=== PATIENT | male | born 1950 | race Caucasian/White ===

== ENCOUNTER 2018-07-24 10:02 | Inpatient (IN) | payer OTHER ==
[2018-07-24] MEDS ORDERED: ALBUTEROL 2.5 MG/3 ML NEB SOL ONE (11:02)
[2018-07-24] MEDS ORDERED: IPRATROPIUM BROM 0.5MG/2.5ML ONE (11:02)
[2018-07-24 11:09] LABS: Absolute Monocytes 0.6 K/uL (0.1-1.3); Absolute Neutrophil 7.1 K/uL (1.8-8.0); Basophils % 0.9 % (0-1.3); Eosinophils % 0.6 % (0-4.4); Hematocrit 54.3 % (39.6-49.0); Lymphocytes % 11.2 % (15.3-44.8); MPV 9.7 fL (7.6-11.3); Monocytes % 7.2 % (3.3-12.3); RBC Red Blood Cell Count 6.07 M/uL (4.33-5.43)
--- NOTE | 2018-07-24 11:18 | RAD REPORT ---
EXAM DESCRIPTION: US - Extrem Venous W Compress Cameron - 07/24/2018 11:12 am CLINICAL HISTORY: SWELLING Bilateral leg edema and swelling. COMPARISON: No comparisons TECHNIQUE: Real-time sonographic interrogation of the left and right lower extremity deep venous sys tems was performed. FINDINGS: Normal compressibility, flow augmentation, phasic flow and spontaneous flow is identified in both the left and right lower extremity deep venous systems. IMPRESSION: No sonographic evidence of left or right lower extremity deep venous thrombosis.
[2018-07-24 11:20] LABS: Protime INR 1.05
[2018-07-24 11:38] LABS: Albumin 2.9 g/dL (3.4-5.0); Bilirubin Direct 0.3 mg/dL (0-0.2); Bilirubin Total 0.7 mg/dL (0.2-1.0); Protein, Total 6.8 g/dL (6.4-8.2); Troponin (Emerg Dept Use Only) 0.06 ng/mL (0.0-0.045)
--- NOTE | 2018-07-24 11:51 | RAD REPORT ---
EXAM DESCRIPTION: RAD - Chest Single View - 07/24/2018 11:45 am CLINICAL HISTORY: DYSPNEA Chest pain. COMPARISON: CHEST SINGLE VIEW dated 05/20/2012 FINDINGS: Portable technique limits examination quality. Mild interstitial pulmonary edema is present. Bilateral pleural effusions are present, larger on the right. The heart is mildly enlarged in size. No displaced fractures. IMPRESSION: Mild CHF versus volume overload pattern.
[2018-07-24] MEDS ORDERED: FUROSEMIDE 40 MG/4 ML VIAL ONE (12:00)
--- NOTE | 2018-07-24 12:12 | EDPHYS ---
Physician Documentation [facility] Name: Gabo Chow Sr Age: 67 yrs Sex: Male : 1950 Arrival Date: 07/24/2018 Time: 10:06 Bed 5 Private MD: None, None ED Physician Luisa Gold HPI: 07/24 12:39 This 67 yrs old Male presents to ER via Ambulatory with complaints of Leg kb Swelling, Breathing Difficulty. 12:39 The patient has shortness of breath at rest, and the patient has a history of COPD, kb CHF. Onset: The symptoms/episode began/occurred 3 week(s) ago. Duration: The symptoms are continuous. The patient's shortness of breath is aggravated by exertion, light activity, singing, is alleviated by nothing. Associated signs and symptoms: Pertinent positives: non-productive cough, Pertinent negatives: chest pain, productive cough, diaphoresis, dizziness, fever, hemoptysis, loss of consciousness, nausea, numbness in extremities, visual changes, vomiting. Severity of symptoms: At their worst the symptoms were moderate in the emergency department the symptoms are unchanged. The patient has experienced similar episodes in the past, a few times. The patient has not recently seen a physician. Historical: - Allergies: 10:13 No Known Allergies; sv - PMHx: 10:13 CHF; Hypertension; sv - PSHx: 10:13 cardiac stent; sv - Immunization history:: Adult Immunizations unknown. - Social history:: Smoking status: Patient uses tobacco products, smokes one pack cigarettes per day. - Ebola Screening: : Patient denies exposure to infectious person Patient denies travel to an Ebola-affected area in the 21 days before illness onset. ROS: 12:37 Constitutional: Negative for fever, chills, and weight loss, ENT: Negative for injury, kb pain, and discharge, Neck: Negative for injury, pain, and swelling, Abdomen/GI: Negative for abdominal pain, nausea, vomiting, diarrhea, and constipation, Back: Negative for injury and pain, : Negative for injury, bleeding, discharge, and swelling, MS/Extremity: Negative for injury and deformity, Skin: Negative for injury, rash, and discoloration, Neuro: Negative for headache, weakness, numbness, tingling, and seizure. 12:37 Cardiovascular: Positive for edema, Negative for chest pain, orthopnea, palpitations, paroxysmal nocturnal dyspnea. 12:37 Respiratory: Positive for cough, with no reported sputum, dyspnea on exertion, shortness of breath, wheezing, Negative for hemoptysis, orthopnea, pleurisy. Exam: 12:38 Constitutional: This is a well developed, well nourished patient who is awake, alert, kb and in no acute distress. Head/Face: Normocephalic, atraumatic. ENT: Nares patent. No nasal discharge, no septal abnormalities noted. Tympanic membranes are normal and external auditory canals are clear. Oropharynx with no redness, swelling, or masses, exudates, or evidence of obstruction, uvula midline. Mucous membranes moist. Neck: Trachea midline, no thyromegaly or masses palpated, and no cervical lymphadenopathy. Supple, full range of motion without nuchal rigidity, or vertebral point tenderness. No Meningismus. Chest/axilla: Normal chest wall appearance and motion. Nontender with no deformity. No lesions are appreciated. Cardiovascular: Regular rate and rhythm with a normal S1 and S2. No gallops, murmurs, or rubs. Normal PMI, no JVD. No pulse deficits. Abdomen/GI: Soft, non-tender, with normal bowel sounds. No distension or tympany. No guarding or rebound. No evidence of tenderness throughout. Back: No spinal tenderness. No costovertebral tenderness. Full range of motion. Skin: Warm, dry with normal turgor. Normal color with no rashes, no lesions, and no evidence of cellulitis. MS/ Extremity: Pulses equal, no cyanosis. Neurovascular intact. Full, normal range of motion. Neuro: Awake and alert, GCS 15, oriented to person, place, time, and situation. Cranial nerves II-XII grossly intact. Motor strength 5/5 in all extremities. Sensory grossly intact. Cerebellar exam normal. Normal gait. 12:38 Cardiovascular: Edema: 3+ edema to level of left ankle, left foot, right ankle and right foot. 12:38 Respiratory: mild respiratory distress is noted, Respirations: labored breathing, Breath sounds: decreased breath sounds, that are mild, are located in both bases, wheezing: expiratory that is moderate, is heard diffusely. Vital Signs: 10:13 BP 164 / 88; Pulse 87; Resp 22; Temp 98.8; Pulse Ox 95% ; Weight 95.25 kg; Height 6 ft. sv 0 in. (182.88 cm); 13:13 BP 148 / 69; Pulse 89; Resp 22; Pulse Ox 95% on R/A; Pain 0/10; ss 10:13 Body Mass Index 28.48 (95.25 kg, 182.88 cm) sv MDM: 10:19 Patient medically screened. kb 12:09 Data reviewed: vital signs, nurses notes. Data interpreted: Pulse oximetry: on room air kb is 95 %. Interpretation: acceptable. 12:09 Counseling: I had a detailed discussion with the patient and/or guardian regarding: the kb historical points, exam findings, and any diagnostic results supporting the discharge/admit diagnosis, lab results, radiology results, the need for further work-up and treatment in the hospital. Physician consultation: Yousuf Ware MD was contacted at 12:09, regarding admission, to the telemetry unit. patient's condition, and will see patient in ED, shortly. 07/24 10:29 Order name: Basic Metabolic Panel; Complete Time: 11:43 kb 07/24 10:29 Order name: CBC with Diff; Complete Time: 11:24 kb 07/24 10:29 Order name: LFT's; Complete Time: 11:43 kb 07/24 10:29 Order name: Magnesium; Complete Time: 11:43 kb 07/24 10:29 Order name: NT PRO-BNP; Complete Time: 11:43 kb 07/24 10:29 Order name: PT-INR; Complete Time: 11:26 kb 07/24 10:29 Order name: Troponin (emerg Dept Use Only); Complete Time: 11:43 kb 07/24 10:29 Order name: XRAY Chest (1 view); Complete Time: 11:53 kb 07/24 10:29 Order name: EKG; Complete Time: 10:30 kb 07/24 10:29 Order name: Cardiac monitoring; Complete Time: 10:49 kb 07/24 10:29 Order name: EKG - Nurse/Tech; Complete Time: 10:49 kb 07/24 10:29 Order name: US Extremity Venous W Compression Cameron; Complete Time: 11:24 kb 07/24 10:29 Order name: IV Saline Lock; Complete Time: 10:49 kb 07/24 10:29 Order name: Labs collected and sent; Complete Time: 10:49 kb 07/24 10:29 Order name: O2 Per Protocol; Complete Time: 10:49 kb 07/24 10:29 Order name: O2 Sat Monitoring; Complete Time: 10:49 kb Administered Medications: 11:13 Drug: DuoNeb (3:1) (2.5 mg - 0.5 mg) 3 ml Route: Nebulizer; ss 13:15 Follow up: Response: No adverse reaction; Wheezing diminished ss 11:56 Drug: Lasix 40 mg Route: IVP; Site: right forearm; ss 13:16 Follow up: Response: No adverse reaction; No adverse reaction output increased ss Disposition: 17:40 Co-signature as Attending Physician, Luisa Gold MD. ma2 Disposition: 07/24/18 12:11 Hospitalization ordered by Yousuf Ware for Inpatient Admission. Preliminary diagnosis are Dyspnea, unspecified, Unspecified combined systolic (congestive) and diastolic (congestive) heart failure, Chronic obstructive pulmonary disease with (acute) exacerbation, Volume overload. - Bed requested for Telemetry/MedSurg (Inpatient). - Status is Inpatient Admission. ss - Condition is Stable. - Problem is new. - Symptoms are unchanged. UTI on Admission? No Signatures: Dispatcher [employer] EDMS Shona Mcdowell, SOWMYA-C HEALTH DIRECTOR-Dedra Blackwell Stephanie, RN RN sv Smirch, Shelby, RN RN ss Alzahri, Mohammad, MD MD ma2 Corrections: (The following items were deleted from the chart) 13:01 12:11 Hospitalization Ordered by Yousuf Ware MD for Inpatient Admission. Preliminary bd diagnosis is Dyspnea, unspecified; Unspecified combined systolic (congestive) and diastolic (congestive) heart failure; Chronic obstructive pulmonary disease with (acute) exacerbation; Volume overload. Bed requested for Telemetry/MedSurg (Inpatient). Status is Inpatient Admission. Condition is Stable. Problem is new. Symptoms are unchanged. UTI on Admission? No. kb 14:09 13:01 07/24/2018 12:11 Hospitalization Ordered by Yousuf Ware MD for Inpatient ss Admission. Preliminary diagnosis is Dyspnea, unspecified; Unspecified combined systolic (congestive) and diastolic (congestive) heart failure; Chronic obstructive pulmonary disease with (acute) exacerbation; Volume overload. Bed requested for Telemetry/MedSurg (Inpatient). Status is Inpatient Admission. Condition is Stable. Problem is new. Symptoms are unchanged. UTI on Admission? No. bd
--- NOTE | 2018-07-24 12:12 | ER ---
Nurse's Notes [facility] Name: Gabo Chow Sr Age: 67 yrs Sex: Male : 1950 Arrival Date: 07/24/2018 Time: 10:06 Bed 5 Private MD: None, None Diagnosis: Dyspnea, unspecified;Unspecified combined systolic (congestive) and diastolic (congestive) heart failure;Chronic obstructive pulmonary disease with (acute) exacerbation;Volume overload Presentation: 07/24 10:11 Presenting complaint: Patient states: SOB x 3 weeks and has increased. Pt has not been sv taking his meds d/t financial reasons. Transition of care: patient was not received from another setting of care. Onset of symptoms is unknown. Care prior to arrival: None. 10:11 Method Of Arrival: Ambulatory sv 10:11 Acuity: ALLI 3 sv 10:30 Risk Assessment: Do you want to hurt yourself or someone else? Patient reports no ss desire to harm self or others. Initial Sepsis Screen: Does the patient meet any 2 criteria? RR > 20 per min. HR > 90 bpm. Does the patient have a suspected source of infection? No. Patient's initial sepsis screen is negative. Historical: - Allergies: 10:13 No Known Allergies; sv - PMHx: 10:13 CHF; Hypertension; sv - PSHx: 10:13 cardiac stent; sv - Immunization history:: Adult Immunizations unknown. - Social history:: Smoking status: Patient uses tobacco products, smokes one pack cigarettes per day. - Ebola Screening: : Patient denies exposure to infectious person Patient denies travel to an Ebola-affected area in the 21 days before illness onset. Screenin:32 Abuse screen: Denies threats or abuse. Denies injuries from another. Nutritional ss screening: No deficits noted. Tuberculosis screening: No symptoms or risk factors identified. Never had TB. Fall Risk No fall in past 12 months (0 pts). Secondary diagnosis (15 points) shortness of breath. IV access (20 points). Ambulatory Aid- None/Bed Rest/Nurse Assist (0 pts). Gait- Normal/Bed Rest/Wheelchair (0 pts) Mental Status- Oriented to own ability (0 pts). Assessment: 10:32 Reassessment: unable to palpate pedal pulses, but was able to locale with Doppler. ss General: Appears uncomfortable, Behavior is cooperative, restless, Reports feeling ill for x 3 weeks. Pt states it has taken him this long to come to the ER because his cousin told his older brother who made him come to the ED for treatment. Pt reports that he was supposed to be taking Lasix, but has not in the past as he was unable to afford his medication. Brother states that he is willing to help the patient, but he has never asked for help. . Pain: Denies pain. Neuro: Level of Consciousness is awake, alert, obeys commands, Oriented to person, place, time, situation, Speech is normal, Facial symmetry appears normal. Cardiovascular: Heart tones S1 S2 present Capillary refill is > 3 seconds is sluggish in bilateral fingers toes Patient's skin is warm and dry. Pulses able to find pedal pulses with venous doppler Edema is 3+ to left midcalf, left ankle, left foot, right midcalf, right ankle and right foot Rhythm is regular Chest pain is denied. Respiratory: Airway is patent Trachea midline Respiratory effort is even, unlabored, Respiratory pattern is regular, symmetrical, Breath sounds are diminished in right posterior lower lobe Breath sounds with wheezes in left posterior upper lobe, right posterior upper lobe, left posterior lower lobe, right posterior middle lobe and right posterior lower lobe Denies. GI: Abdomen is round non-distended, Patient currently denies abdominal pain, diarrhea, nausea, vomiting. : No signs and/or symptoms were reported regarding the genitourinary system. EENT: Nares are clear Oral mucosa is moist. Derm: Skin temperature is warm Rash noted that is macular, red. Musculoskeletal: Circulation, motion, and sensation intact. Capillary refill < 3 seconds, is brisk, in bilateral fingers. Range of motion: intact in all extremities, Swelling absent. 10:50 Reassessment: To ultrasound VIA stetcher at this time. ss 11:10 Reassessment: Pt back form ultrasound at this time. ss 12:10 Reassessment: Patient appears in no apparent distress at this time. No changes from ss previously documented assessment. Patient and/or family updated on plan of care and expected duration. Pain level reassessed. 13:14 Reassessment: Patient appears in no apparent distress at this time. Patient and/or ss family updated on plan of care and expected duration. Pain level reassessed. Patient is alert, oriented x 3, equal unlabored respirations, skin warm/dry/pink. Patient denies pain at this time. Patient states feeling better. Patient states symptoms have improved. Vital Signs: 10:13 BP 164 / 88; Pulse 87; Resp 22; Temp 98.8; Pulse Ox 95% ; Weight 95.25 kg; Height 6 ft. sv 0 in. (182.88 cm); 13:13 BP 148 / 69; Pulse 89; Resp 22; Pulse Ox 95% on R/A; Pain 0/10; ss 10:13 Body Mass Index 28.48 (95.25 kg, 182.88 cm) sv ED Course: 10:06 Patient arrived in ED. mr 10:06 None, None is Private Physician. mr 10:12 Triage completed. sv 10:13 Arm band placed on. sv 10:19 Shona Mcdowell FNP-C is PHCP. kb 10:19 Luisa Gold MD is Attending Physician. kb 10:32 Patient has correct armband on for positive identification. Bed in low position. Call ss light in reach. 10:34 EKG done, by aircraft technician. reviewed by Shona KNIGHT. at1 10:48 Saniya Arrieta RN is Primary Nurse. ss 10:50 Initial lab(s) drawn, by wv, sent to lab. Inserted saline lock: 20 gauge in right em1 forearm, using aseptic technique. Blood collected. 11:17 US Extremity Venous W Compression Cameron In Process Unspecified. EDMS 11:43 X-ray completed. Portable x-ray completed in exam room. Patient tolerated procedure mh1 well. 11:43 XRAY Chest (1 view) In Process Unspecified. EDMS 12:09 Yousuf Ware MD is Hospitalizing Provider. kb 14:07 No provider procedures requiring assistance completed. Patient admitted, IV remains in ss place. Administered Medications: 11:13 Drug: DuoNeb (3:1) (2.5 mg - 0.5 mg) 3 ml Route: Nebulizer; ss 13:15 Follow up: Response: No adverse reaction; Wheezing diminished ss 11:56 Drug: Lasix 40 mg Route: IVP; Site: right forearm; ss 13:16 Follow up: Response: No adverse reaction; No adverse reaction output increased ss Output: 13:14 Urine: 650ml (Voided); Total: 650ml. ss Outcome: 12:11 Decision to Hospitalize by Provider. kb 14:07 Admitted to Tele accompanied by tech, via wheelchair, room 423, with chart, Report ss called to DERIC Bryan 14:07 Condition: good 14:07 Instructed on the need for admit. 14:09 Patient left the ED. ss Signatures: Dispatcher [employer] EDShona Voss, HUMAN RELATIONS TEACHER-Emilia HUMAN RELATIONS TEACHER-Windy Reaves, RN DERIC Dorothy Queen, Radha 1 Kalen, Hao 1 Saniya Arrieta RN RN ss Gonzales, Amanda, manager shell EKG Tat1
[2018-07-24] MEDS ORDERED: ALBUTEROL 2.5 MG/3 ML NEB SOL NEB SCH (14:34)
[2018-07-24] MEDS ORDERED: ONDANSETRON 4 MG/2 ML VIAL IV PRN (14:34)
[2018-07-24] MEDS ORDERED: ACETAMINOPHEN 500 MG TAB PO PRN (14:34)
[2018-07-24] MEDS: ENOXAPARIN 40 MG/0.4 ML SQ SCH (16:52)
[2018-07-24] MEDS: FUROSEMIDE 40 MG/4 ML VIAL IV SCH (16:52)
[2018-07-24] MEDS: METOPROLOL TAR 25 MG TAB PO SCH ×2 (16:52→21:00)
[2018-07-24 17:51] LABS: Urine Appearance CLEAR; Urine Bilirubin NEGATIVE (NEG); Urine Blood 1+ (NEG); Urine Color YELLOW; Urine Glucose NEGATIVE (NEG); Urine Protein 1+ (NEG); Urine Specific Gravity <=1.005 (1.005-1.030)
[2018-07-24 18:30] LABS: Urine Microscopic Reflex ORDER UMIC
[2018-07-24 19:00] LABS: Urine Bacteria <20 /HPF (NONE SEEN); Urine Culture Reflex Order NOT NEEDED
[2018-07-24] MEDS: ALBUTEROL 2.5 MG/3 ML NEB SOL NEB SCH (19:48)
[2018-07-24] MEDS: IPRATROPIUM BROM 0.5MG/2.5ML NEB SCH (19:48)
--- NOTE | 2018-07-24 20:51 | EKG ---
Test Date: 2018-07-24 Test Time: 10:28:17 Color Consultant: LEORA MEASUREMENT RESULTS: Intervals: Rate: 88 FL: 136 QRSD: 110 QT: 392 QTc: 474 [place]: P: 78 FL: 136 QRS: 28 T: 122 INTERPRETIVE STATEMENTS: Normal sinus rhythm Possible Inferior infarct, age undetermined T wave abnormality, consider lateral ischemia Abnormal ECG Compared to ECG 05/20/2012 18:22:19 T-wave abnormality now present Sinus bradycardia no longer present ST (T wave) deviation no longer present Myocardial infarct finding still present Possible ischemia still present Electronically Signed On 07-24-18 20:48:04 MUSIC EDUCATOR by Irvin Turner
--- NOTE | 2018-07-25 01:22 | HP ---
Date of Admission: 07/24/2018 Chief Complaint: Shortness of breath and lower extremity swelling. Code Status: Full. History Of Present Illness: The patient is a 67-year-old male with past medical history of heart disease, status post stent; congestive heart failure; COPD; who is noncompliant with medications; history of nicotine dependence; who comes in with lower extremity swelling, shortness of breath, and dry cough that has been ongoing for the past 3 weeks, progressively worsening. His symptoms are constant, moderate in intensity. The patient denies any chest pain, palpitations, fever, chills, nausea, or vomiting. No trauma to his legs. The patient came in to the ER for further evaluation. Upon arrival, his workup revealed elevated BNP, mild elevation in his troponin. White count was normal. His chest x-ray showed volume overload. Ultrasound of the lower extremities was negative for DVT. The patient was given some Lasix, which helped him breathe somewhat better. He was also given a breathing treatment. He was referred for admission for CHF. Past Medical History: Coronary artery disease, status post stent 4 years ago; congestive heart failure; and COPD. Past Surgical History: Cardiac stent. Allergies: NO KNOWN DRUG ALLERGIES. Medications: The patient does not take any medications at home. Social History: The patient smokes a pack and a half per day. Has been smoking for over 20 years. No alcohol use. No illicit drug use. The patient is independent in his activities of daily living. Has good social support. Does not use any assistive ambulatory devices. Family History: Positive for heart disease. Mother of complications from emphysema. Review of Systems: An 11-point system reviewed and negative except as per HPI. Physical Examination: Vital Signs: Blood pressure 164/88, pulse 87, respirations 22, temperature 98.8 , and O2 of 95% on room air. General: Awake, alert, and oriented x3. Some mild distress. Elderly male, ill -appearing. HEENT: Normocephalic, atraumatic. PERRLA. EOMI. Moist mucous membranes. Oropharynx is clear. Poor dentition. Conjunctivae are anicteric. Neck: Supple. Trachea midline. JVD is distended. CV: S1 and S2. Regular rate and rhythm. Peripheral pulses present. No murmurs. Respiratory: Diminished breath sounds. Crackles heard. No wheezing. No use of accessory muscles. Gastrointestinal: Abdomen is soft, nontender, nondistended. Positive bowel sounds. No guarding or rigidity. Extremities: No clubbing or cyanosis. The patient has 3+ edema, bilateral lower extremities, with some weeping. No calf tenderness. Neurologic: Cranial nerves 2 through 12 are intact grossly. No focal neurological deficits. Speech is normal. Strength is 5/5, bilateral upper and lower extremities, major muscle groups. Skin: The patient has some venous stasis changes of the lower extremities with some erythema and maculopapular rash on the legs. Psychiatric: Mood is okay. Affect is full. Insight and judgment are good. Laboratory Data: WBC 8.9, H and H 18 and 54.3, and platelets 235. INR 1.05. Sodium 140, potassium 4, chloride 104, CO2 of 30, BUN 20, creatinine 1.27, glucose 112, calcium 8.8, and magnesium 2. Alkaline phosphatase 122. Troponin 0.06. BNP 9414. Albumin 2.9. Venous Doppler of bilateral lower extremities is negative for DVT. Chest x-ray personally reviewed, shows mild CHF versus volume overload pattern. Assessment And Plan: A 67-year-old male with; 1. Acute congestive heart failure exacerbation, unknown ejection fraction. We will start on congestive heart failure guidelines with beta-helen, KATIANA inhibitor, and IV diuretics. We will obtain echocardiogram. Unknown ejection fraction. We will monitor I's and O's. Daily weights, sodium restricted diet, fluid restriction. 2. Coronary artery disease, rosebud artery and rosebud heart, status post stent , without angina. We will start on aspirin and monitor. 3. Venous stasis changes. White blood cell count is normal. Does have some erythema. We will continue with diuretics. Elevate lower extremities. No signs of infection at this time, but we will need to monitor closely. Doppler is negative for DVT. 4. Nicotine dependence with cigarette smoking continuous. The patient has been counseled for less than 10 minutes. 5. Elevated troponin, likely due to acute congestive heart failure exacerbation. 6. 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 7. Chronic obstructive pulmonary disease, chronic bronchitis. Continue breathing treatments and supplemental O2 as needed. 8. Gastrointestinal prophylaxis and deep venous thrombosis prophylaxis addressed. Plan is to admit the patient to Med-Surg, [facility] as observation. TAY Voice ID: [id number] [facility]
[2018-07-25] MEDS: ALBUTEROL 2.5 MG/3 ML NEB SOL NEB SCH ×4 (02:04→21:00)
[2018-07-25] MEDS: IPRATROPIUM BROM 0.5MG/2.5ML NEB SCH ×4 (02:04→21:00)
[2018-07-25 04:57] LABS: Absolute Lymphocytes (CBC) 1.5 K/uL (0.7-4.9); Absolute Monocytes 0.8 K/uL (0.1-1.3); Absolute Neutrophil 5.9 K/uL (1.8-8.0); Basophils % 0.9 % (0-1.3); Eosinophils % 1.5 % (0-4.4); Hematocrit 49.7 % (39.6-49.0); MPV 9.8 fL (7.6-11.3); Monocytes % 9.8 % (3.3-12.3); RBC Red Blood Cell Count 5.57 M/uL (4.33-5.43)
[2018-07-25 05:10] LABS: Albumin 2.6 g/dL (3.4-5.0); Bilirubin Total 0.7 mg/dL (0.2-1.0); Protein, Total 6.1 g/dL (6.4-8.2)
[2018-07-25] MEDS: LISINOPRIL 10 MG TAB PO SCH (08:35)
[2018-07-25] MEDS: METOPROLOL TAR 25 MG TAB PO SCH ×2 (08:37→21:54)
[2018-07-25] MEDS: ENOXAPARIN 40 MG/0.4 ML SQ SCH (08:37)
[2018-07-25] MEDS: FUROSEMIDE 40 MG/4 ML VIAL IV SCH ×2 (08:38→16:10)
--- NOTE | 2018-07-25 17:51 | ECHO ---
HEIGHT: 6 ft 0 in WEIGHT: 184 lb 8 oz DATE OF STUDY: 07/25/[address]: Yousuf Ware MD 2-DIMENSIONAL: YES M.MODE: YES DOPPLER: YES COLOR FLOW: YES TDS: YES PORTABLE: NO DEFINITY: NO BUBBLE STUDY: NO DIAGNOSIS: CONGESTIVE HEART FAILURE CARDIAC HISTORY: CATHERIZATION: YES SURGERY: NO PROSTHETIC VALVE: NO PACEMAKER: NO MEASUREMENTS (cm) DIASTOLIC (NORMALS) SYSTOLIC (NORMALS) IVSd 1.1 (0.6-1.2) LA Diam 3.7 (1.9-4.0) LVEF 59% LVIDd 5.1 (3.5-5.7) LVIDs 3.5 (2.0-3.5) %FS 32% LVPWd 1.2 (0.6-1.2) Ao Diam 3.3 (2.0-3.7) 2 DIMENSIONAL ASSESSMENT: RIGHT ATRIUM: NORMAL LEFT ATRIUM: NORMAL RIGHT VENTRICLE: NORMAL LEFT VENTRICLE: NORMAL TRICUSPID VALVE: NORMAL MITRAL VALVE: MITRAL ANNULAR CALCIFICATION PULMONIC VALVE: NORMAL AORTIC VALVE: SCLEROSIS PERICARDIAL EFFUSION: NONE AORTIC ROOT: NORMAL LEFT VENTRICULAR WALL MOTION: NORMAL. DOPPLER/COLOR FLOW: MILD TRICUSPID REGURGITATION. COMMENTS: NORMAL LEFT VENTRICULAR SIZE AND FUNCTION. MITRAL ANNULAR CALCIFICATION. AORTIC SCELROSIS. TECHNICALLY DIFFICULT STUDY. MILD TRICUSPID REGURGITATION. TECHNOLOGIST: ALLEGRA HEARD
--- NOTE | 2018-07-25 18:43 | P.PN ---
Subjective Date of Service: 07/25/18 Subjective: No C/O voiced, Improving Patient seen and examined at bedside. No family at bedside. Chart reviewed and case discussed with nursing staff. Reports lower extremity edema improvement Denies any chest pain. Reports improved breathing Review of Systems 10-point ROS is otherwise unremarkable Physical Examination - Vital Signs Temperature: 98.2 F Blood Pressure: 137/79 Pulse: 63 Respirations: 26 Pulse Ox (%): 97 - Physical Exam General: Alert, In no apparent distress, Oriented x3 HEENT: Atraumatic, PERRLA, EOMI Neck: Supple, JVD not distended Respiratory: Clear to auscultation bilaterally, Normal air movement Cardiovascular: Regular rate/rhythm, Normal S1 S2, Edema Gastrointestinal: Normal bowel sounds, No tenderness Musculoskeletal: No tenderness, No warmth, Swelling, Erythema Integumentary: No rashes Neurological: Normal speech, Normal tone, Normal affect Assessment And Plan - Plan A 67-year-old male with; 1. Acute congestive heart failure exacerbation, diastolic, with preserved ejection fraction. Continue congestive heart failure guidelines with beta-helen, KATIANA inhibitor, and IV diuretics. Echocardiogram with ejection fraction of 59%. Continue to monitor I's and O's. Daily weights, sodium restricted diet, fluid restriction. 2. Coronary artery disease, [place] artery and [place] heart, status post stent, without angina. We will start on aspirin and monitor. Remains stable 3. Venous stasis changes. White blood cell count is normal. Does have some erythema. We will continue with diuretics. Elevate lower extremities. No signs of infection at this time , but we will need to monitor closely. Doppler is negative for DVT. 4. Nicotine dependence with cigarette smoking continuous. Counseled for smoking cessation 5. Elevated troponin, likely due to acute congestive heart failure exacerbation. 6. 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 7. Chronic obstructive pulmonary disease, chronic bronchitis. Continue breathing treatments and supplemental O2 as needed. DVT prophylaxis: Lovenox GI prophylaxis: PPI Diet: Fluid restrictions/heart healthy Disposition: Pending symptomatic improvement. Likely discharge home in the next 24-48 hr. Patient like to establish care with Dr. Mcqueen
[2018-07-26] MEDS: ALBUTEROL 2.5 MG/3 ML NEB SOL NEB SCH ×4 (02:00→20:35)
[2018-07-26] MEDS: IPRATROPIUM BROM 0.5MG/2.5ML NEB SCH ×4 (02:00→20:35)
[2018-07-26] MEDS: METOPROLOL TAR 25 MG TAB PO SCH ×2 (08:27→22:16)
[2018-07-26] MEDS: LISINOPRIL 10 MG TAB PO SCH (08:27)
[2018-07-26] MEDS: ENOXAPARIN 40 MG/0.4 ML SQ SCH (08:28)
[2018-07-26] MEDS: FUROSEMIDE 40 MG/4 ML VIAL IV SCH ×2 (08:28→17:32)
--- NOTE | 2018-07-26 16:44 | P.PN ---
Subjective Date of Service: 07/26/18 Subjective: No C/O voiced, Improving Patient seen and examined at bedside. No family at bedside. Chart reviewed and case discussed with nursing staff. Reports lower extremity edema improvement Denies any chest pain. Reports improved breathing Review of Systems 10-point ROS is otherwise unremarkable Physical Examination - Vital Signs Temperature: 97.8 F Blood Pressure: 121/65 Pulse: 55 Respirations: 18 Pulse Ox (%): 91 - Physical Exam General: Alert, In no apparent distress, Oriented x3 HEENT: Atraumatic, PERRLA, EOMI Neck: Supple, JVD not distended Respiratory: Clear to auscultation bilaterally, Normal air movement Cardiovascular: Regular rate/rhythm, Normal S1 S2 Gastrointestinal: Normal bowel sounds, No tenderness Musculoskeletal: Other (1 to 2+ bilateral pitting edema, with discoloration of bilateral lower extremity) Integumentary: No rashes Neurological: Normal speech, Normal tone, Normal affect Assessment And Plan - Plan A 67-year-old male with; 1. Acute congestive heart failure exacerbation, diastolic, with preserved ejection fraction. Continue congestive heart failure guidelines with beta-helen, KATIANA inhibitor, and IV diuretics. Echocardiogram with ejection fraction of 59%. Continue to monitor I's and O's. Daily weights, sodium restricted diet, fluid restriction. 2. Coronary artery disease, [place] artery and [place] heart, status post stent, without angina. We will start on aspirin and monitor. Remains stable 3. Venous stasis changes. White blood cell count is normal. Does have some erythema. We will continue with diuretics. Elevate lower extremities. No signs of infection at this time , but we will need to monitor closely. Doppler is negative for DVT. 4. Nicotine dependence with cigarette smoking continuous. Counseled for smoking cessation 5. Elevated troponin, likely due to acute congestive heart failure exacerbation. 6. 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 7. Chronic obstructive pulmonary disease, chronic bronchitis. Continue breathing treatments and supplemental O2 as needed. DVT prophylaxis: Lovenox GI prophylaxis: PPI Diet: Fluid restrictions/heart healthy Disposition: Pending symptomatic improvement. Likely discharge home in the next 24-48 hr. Patient has appointment scheduled with Dr. Mcqueen in 2-3 days Time Spent Managing PTS Care (In Minutes): 45
[2018-07-27] MEDS: IPRATROPIUM BROM 0.5MG/2.5ML NEB SCH ×2 (01:45→07:49)
[2018-07-27] MEDS: ALBUTEROL 2.5 MG/3 ML NEB SOL NEB SCH ×2 (01:45→07:49)
[2018-07-27 04:26] VITALS: TEMP 98.1
[2018-07-27 05:44] VITALS: BMI 23.8
[2018-07-27] MEDS: FUROSEMIDE 40 MG/4 ML VIAL IV SCH (09:42)
[2018-07-27] MEDS: LISINOPRIL 10 MG TAB PO SCH (09:43)
[2018-07-27] MEDS: ENOXAPARIN 40 MG/0.4 ML SQ SCH (09:43)
[2018-07-27] MEDS: METOPROLOL TAR 25 MG TAB PO SCH (09:43)
[2018-07-27 11:09] VITALS: O2SAT 96
[2018-07-27 13:35] VITALS: BP 114/61
--- NOTE | 2018-08-03 10:36 | P.DS ---
Admission Date: 07/24/18 Discharge Date: 07/27/18 Disposition: ROUTINE DISCHARGE Discharge Condition: GOOD Reason for Admission: CHF Brief History of Present Illness: : The patient is a 67-year-old male with past medical history of heart disease , status post stent; congestive heart failure; COPD; who is noncompliant with medications; history of nicotine dependence; who comes in with lower extremity swelling, shortness of breath, and dry cough that has been ongoing for the past 3 weeks, progressively worsening. His symptoms are constant, moderate in intensity. The patient denies any chest pain, palpitations, fever, chills, nausea, or vomiting. No trauma to his legs. The patient came in to the ER for further evaluation. Upon arrival, his workup revealed elevated BNP, mild elevation in his troponin. White count was normal. His chest x-ray showed volume overload. Ultrasound of the lower extremities was negative for DVT. The patient was given some Lasix, which helped him breathe somewhat better. He was also given a breathing treatment. He was referred for admission for CHF. Hospital Course: 1. Acute congestive heart failure exacerbation, diastolic, with preserved ejection fraction. Started congestive heart failure guidelines with beta-helen, KATIANA inhibitor, and IV diuretics. Echocardiogram with ejection fraction of 59%. Symptoms resolved with intervention. 2. Coronary artery disease, [place] artery and [place] heart, status post stent, without angina. Started on aspirin. Remained stable 3. Venous stasis changes. White blood cell count is normal. Does have some erythema. We will continue with diuretics. Elevate lower extremities. No signs of infection at this time , but we will need to monitor closely. Doppler is negative for DVT. 4. Nicotine dependence with cigarette smoking continuous. Counseled for smoking cessation 5. Elevated troponin, likely due to acute congestive heart failure exacerbation. 6. 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 7. Chronic obstructive pulmonary disease, chronic bronchitis. breathing treatments and supplemental O2 as needed. Symptoms resolved. Patient would like to establish care with Dr. Mcqueen. Patient already has appointment scheduled for today at 2 pm Vital Signs/Physical Exam: Temp Pulse Resp BP Pulse Ox 98.1 F 63 93 H 114/61 93 07/27/18 12:00 07/27/18 12:00 07/27/18 12:00 07/27/18 12:00 07/27/18 12:00 General: Alert, In no apparent distress, Oriented x3 HEENT: Atraumatic, PERRLA, EOMI Neck: Supple, JVD not distended Respiratory: Clear to auscultation bilaterally, Normal air movement Cardiovascular: Regular rate/rhythm, Normal S1 S2, Edema (improved from admissino) Gastrointestinal: Normal bowel sounds, No tenderness Musculoskeletal: No tenderness Integumentary: No rashes Neurological: Normal speech, Normal tone, Normal affect Lymphatics: No axilla or inguinal lymphadenopathy Laboratory Data at Discharge: WBC 8.5 K/uL (4.3-10.9) 07/25/18 04:24 Hgb 16.7 g/dL (13.6-17.9) 07/25/18 04:24 Hct 49.7 % (39.6-49.0) H 07/25/18 04:24 Plt Count 203 K/uL (152-406) 07/25/18 04:24 PT 12.4 SECONDS (9.5-12.5) 07/24/18 10:45 INR 1.05 07/24/18 10:45 Sodium 140 mmol/L (136-145) 07/25/18 04:24 Potassium 4.0 mmol/L (3.5-5.1) 07/25/18 04:24 BUN 20 mg/dL (7-18) H 07/25/18 04:24 Creatinine 1.29 mg/dL (0.55-1.3) 07/25/18 04:24 Glucose 104 mg/dL (74-106) 07/25/18 04:24 Magnesium 2.0 mg/dL (1.8-2.4) 07/25/18 04:24 Total Bilirubin 0.7 mg/dL (0.2-1.0) 07/25/18 04:24 AST 28 U/L (15-37) 07/25/18 04:24 ALT 28 U/L (12-78) 07/25/18 04:24 Alkaline Phosphatase 102 U/L (45-117) 07/25/18 04:24 Home Medications: Atorvastatin Calcium [Lipitor] 40 mg PO BEDTIME #30 tab 07/26/18 Clopidogrel Bisulfate [Plavix] 75 mg PO DAILY #30 tablet 07/26/18 Furosemide [Lasix] 40 mg PO DAILY #7 tablet 07/26/18 Lisinopril [Prinivil*] 10 mg PO DAILY #30 tab 07/26/18 Metoprolol Tartrate [Lopressor*] 25 mg PO BID #60 tab 07/26/18 New Medications: Atorvastatin Calcium [Lipitor] 40 mg PO BEDTIME #30 tab Clopidogrel Bisulfate [Plavix] 75 mg PO DAILY #30 tablet Furosemide [Lasix] 40 mg PO DAILY #7 tablet Lisinopril [Prinivil*] 10 mg PO DAILY #30 tab Metoprolol Tartrate [Lopressor*] 25 mg PO BID #60 tab Patient Discharge Instructions: Please follow up with the primary care physician in 1 week. Please follow up with cardiology in 1-2 weeks. Please return to the ER for worsening symptoms Diet: AHA (Fluid restriction) Activity: Ad angélica Followup: Irvin Turner MD [ACTIVE - CAN ADMIT] - Orion Mcqueen MD [ACTIVE - CAN ADMIT] - (follow up per scheduled appointment today at 2:30 pm) Time spent managing pt's care (in minutes): 55
== END 2018-07-27 12:15 | disposition home or self-care (01) | DRG 293 ==
LOC: ER 10:02 → ERHOLD 12:34 → 4TH 14:01 → OBSVTOIN 07-27 08:10
PROVIDERS: ADMIT Family Medicine; ATTEND Family Medicine
DX: I11.0 Hypertensive heart disease with heart failure (principal); I50.33 Acute on chronic diastolic (congestive) heart failure; I25.10 Atherosclerotic heart disease of native coronary artery without angina pectoris; F17.210 Nicotine dependence, cigarettes, uncomplicated; Z95.5 Presence of coronary angioplasty implant and graft; J44.9 Chronic obstructive pulmonary disease, unspecified; I87.8 Other specified disorders of veins; R79.89 Other specified abnormal findings of blood chemistry; D75.1 Secondary polycythemia; Z91.14 Patient's other noncompliance with medication regimen
CPT/HCPCS: 36415; 71045; 80048; 80053; 80076; 81003; 81015; 83735; 83880; 84484; 85025; 85610; 93005; 93306; 93970; 94640; 94760; 96374; 99285; G0378; J1650; J1940

== ENCOUNTER 2019-04-12 19:11 | Emergency (ER) | payer OTHER ==
--- NOTE | 2019-04-12 19:54 | ER ---
Nurse's Notes [facility] Name: Gabo Chow Sr Age: 68 yrs Sex: Male : 1950 Arrival Date: 04/12/2019 Time: 19:15 Bed 15 Private MD: Orion Mcqueen R Diagnosis: Medication Refill, CHF, Peripheral Edema, COPD Presentation: 04/12 19:28 Presenting complaint: Patient states: ran out of lasix for 3 weeks. pt c/o increased ak1 leg swelling. pt sees Dr. Valadez. pt went to Dr. Horton office and the office is closed due to repairs. Transition of care: patient was not received from another setting of care. Onset of symptoms is unknown. Risk Assessment: Do you want to hurt yourself or someone else? Patient reports no desire to harm self or others. Initial Sepsis Screen: Does the patient meet any 2 criteria? No. Patient's initial sepsis screen is negative. Does the patient have a suspected source of infection? No. Patient's initial sepsis screen is negative. Care prior to arrival: None. 19:28 Method Of Arrival: Ambulatory ak1 19:28 Acuity: ALLI 4 ak1 Triage Assessment: 19:29 General: Appears in no apparent distress. Behavior is calm, cooperative. ak1 Historical: - Allergies: 19:29 No Known Allergies; ak1 - PMHx: 19:29 CHF; Hypertension; ak1 - PSHx: 19:29 cardiac stent; ak1 - Immunization history:: Adult Immunizations unknown. - Social history:: Smoking status: Patient uses tobacco products, smokes one pack cigarettes per day. - Ebola Screening: : No symptoms or risks identified at this time. Screenin:02 Abuse screen: Denies threats or abuse. Denies injuries from another. Nutritional ch screening: No deficits noted. Tuberculosis screening: No symptoms or risk factors identified. Fall Risk None identified. Assessment: 19:30 General: Appears in no apparent distress. comfortable, Behavior is calm, cooperative, aa1 appropriate for age. Pain: Denies pain. Neuro: Level of Consciousness is awake, alert, obeys commands, Oriented to person, place, time, situation, Moves all extremities. Full function Gait is steady. Cardiovascular: Heart tones S1 S2 present Edema pitting to left ankle, left foot, right ankle and right foot. Respiratory: Airway is patent Respiratory effort is even, unlabored, Respiratory pattern is regular, symmetrical. GI: No signs and/or symptoms were reported involving the gastrointestinal system. : No signs and/or symptoms were reported regarding the genitourinary system. EENT: No signs and/or symptoms were reported regarding the EENT system. Derm: Skin is intact, is healthy with good turgor, Skin is pink, warm \T\ dry. Musculoskeletal: Circulation, motion, and sensation intact. Capillary refill < 3 seconds. 20:00 Reassessment: Patient appears in no apparent distress at this time. Patient is alert, aa1 oriented x 3, equal unlabored respirations, skin warm/dry/pink. Discussed d/c \T\ f/u instructions with pt; denies questions or concerns at this time. Ambulatory to lobby with steady gait. Vital Signs: 19:27 BP 158 / 85; Pulse 87; Resp 20; Temp 99.1; Pulse Ox 96% on R/A; Weight 74.84 kg (R); ak1 Height 6 ft. 0 in. (182.88 cm) (R); Pain 0/10; 19:27 Body Mass Index 22.38 (74.84 kg, 182.88 cm) ak1 ED Course: 19:15 Patient arrived in ED. es 19:15 Orion Mcqueen MD is Private Physician. es 19:27 Arm band placed on Patient placed in an exam room, on a stretcher, Patient notified of ak1 wait time. 19:29 Triage completed. ak1 19:36 Dre Jolley MD is Attending Physician. kdr 19:48 Lashell Valadez RN is Primary Nurse. aa1 19:52 Orion Mcqueen MD is Referral Physician. kdr 20:02 No apparent distress. Resting quietly. ch 20:02 Patient has correct armband on for positive identification. Bed in low position. Call ch light in reach. Side rails up X 1. 20:02 No provider procedures requiring assistance completed. Patient did not have IV access ch during this emergency room visit. Administered Medications: 20:02 Drug: LaSIX 80 mg Route: PO; ch 20:02 Follow up: Response: Medication administered at discharge. ch Outcome: 19:54 Discharge ordered by . kdr 20:02 Discharged to home ambulatory. ch 20:02 Condition: stable 20:02 Discharge instructions given to patient, family, Instructed on discharge instructions, follow up and referral plans. medication usage, Demonstrated understanding of instructions, follow-up care, medications, Prescriptions given X 1. 20:03 Patient left the ED. Signatures: Marah Mcmullen RN RN Lashell Valadez RN RN aa1 Dre Jolley MD MD kdr Salyer, Edna es Krenek, Amber, RN RN ak1
--- NOTE | 2019-04-12 19:55 | EDPHYS ---
Physician Documentation [facility] Name: Gabo Chow Sr Age: 68 yrs Sex: Male : 1950 Arrival Date: 04/12/2019 Time: 19:15 Bed 15 Private MD: Orion Mcqueen R ED Physician Dre Jolley HPI: 04/12 19:47 This 68 yrs old Male presents to ER via Ambulatory with complaints of kdr Medication Refill. 19:47 The patient presents to the emergency department requesting refill(s) for: Lasix. The kdr patient chronically suffers from hypertension, CHF. The patient has experienced similar episodes in the past, chronically. The patient has not recently seen a physician, Unable to see Dr. Mcqueen to get his refill. Historical: - Allergies: 19:29 No Known Allergies; ak1 - PMHx: 19:29 CHF; Hypertension; ak1 - PSHx: 19:29 cardiac stent; ak1 - Immunization history:: Adult Immunizations unknown. - Social history:: Smoking status: Patient uses tobacco products, smokes one pack cigarettes per day. - Ebola Screening: : No symptoms or risks identified at this time. ROS: 19:47 Constitutional: Negative for fever, chills, and weight loss, Eyes: Negative for injury, kdr pain, redness, and discharge, Neck: Negative for injury, pain, and swelling, Cardiovascular: Negative for chest pain, palpitations, and edema, Respiratory: Negative for shortness of breath, cough, wheezing, and pleuritic chest pain, Abdomen/GI: Negative for abdominal pain, nausea, vomiting, diarrhea, and constipation, Back: Negative for injury and pain, : Negative for injury, bleeding, discharge, and swelling, Skin: Negative for injury, rash, and discoloration, Neuro: Negative for headache, weakness, numbness, tingling, and seizure activity. Psych: Negative for depression, anxiety, suicide ideation, homicidal ideation, and hallucinations, Allergy/Immunology: Negative for hives, rash, and allergies, Endocrine: Negative for neck swelling, polydipsia, polyuria, polyphagia, and marked weight changes, Hematologic/Lymphatic: Negative for swollen nodes, abnormal bleeding, and unusual bruising. 19:47 MS/extremity: Positive for injury or acute deformity, decreased range of motion, swelling, Negative for deformity, ecchymosis, erythema, puncture, tenderness, tingling, warmth. Exam: 19:47 Constitutional: This is a well developed, well nourished patient who is awake, alert, kdr and in no acute distress. Head/Face: Normocephalic, atraumatic. Eyes: Pupils equal round and reactive to light, extra-ocular motions intact. Lids and lashes normal. Conjunctiva and sclera are non-icteric and not injected. Cornea within normal limits. Periorbital areas with no swelling, redness, or edema. Neck: Trachea midline, no thyromegaly or masses palpated, and no cervical lymphadenopathy. Supple, full range of motion without nuchal rigidity, or vertebral point tenderness. No Meningismus. Chest/axilla: Normal chest wall appearance and motion. Nontender with no deformity. No lesions are appreciated. Cardiovascular: Regular rate and rhythm with a normal S1 and S2. No gallops, murmurs, or rubs. Normal PMI, no JVD. No pulse deficits. Respiratory: Lungs have equal breath sounds bilaterally, clear to auscultation and percussion. No rales, rhonchi or wheezes noted. No increased work of breathing, no retractions or nasal flaring. Abdomen/GI: Soft, non-tender, with normal bowel sounds. No distension or tympany. No guarding or rebound. No evidence of tenderness throughout. Back: No spinal tenderness. No costovertebral tenderness. Full range of motion. Skin: Warm, dry with normal turgor. Normal color with no rashes, no lesions, and no evidence of cellulitis. Neuro: Awake and alert, GCS 15, oriented to person, place, time, and situation. Cranial nerves II-XII grossly intact. Motor strength 5/5 in all extremities. Sensory grossly intact. Cerebellar exam normal. Normal gait. Psych: Awake, alert, with orientation to person, place and time. Behavior, mood, and affect are within normal limits. 19:47 Musculoskeletal/extremity: Extremities: Bilateral 4+ pitting edema. Vital Signs: 19:27 BP 158 / 85; Pulse 87; Resp 20; Temp 99.1; Pulse Ox 96% on R/A; Weight 74.84 kg (R); ak1 Height 6 ft. 0 in. (182.88 cm) (R); Pain 0/10; 19:27 Body Mass Index 22.38 (74.84 kg, 182.88 cm) ak1 MDM: 19:52 Data reviewed: vital signs, nurses notes. ED course: The patient was not SOB beyond his [facility] usual COPD/CHF limitations. 19:54 Patient medically screened. [facility] Administered Medications: 20:02 Drug: LaSIX 80 mg Route: PO; 20:02 Follow up: Response: Medication administered at discharge. Disposition: 04/12/19 19:54 Discharged to Home. Impression: Medication Refill, CHF, Peripheral Edema, COPD. - Condition is Stable. - Discharge Instructions: Heart Failure, [id number], Peripheral Edema. - Prescriptions for Lasix 40 mg Oral Tablet - take 1 tablet by ORAL route once daily for 30 days; 30 tablet. - Medication Reconciliation Form, Thank You Letter form. - Follow up: Orion Mcqueen MD; When: 2 - 3 days; Reason: If symptoms return, Further diagnostic work-up, Recheck today's complaints, Continuance of care, Re-evaluation by your physician. - Problem is an ongoing problem. - Symptoms are unchanged. Signatures: Marah Mcmullen RN RN Dre Jolley MD MD [facility] Pam Martinez RN RN ak1 Petar Licona MD MD Corrections: (The following items were deleted from the chart) 20:03 19:54 04/12/2019 19:54 Discharged to Home. Impression: Medication Refill, CHF, ch Peripheral Edema, COPD. Condition is Stable. Forms are Medication Reconciliation Form, Thank You Letter, Antibiotic Education, Prescription Opioid Use. Follow up: Orion Mcqueen; When: 2 - 3 days; Reason: If symptoms return, Further diagnostic work-up, Recheck today's complaints, Continuance of care, Re-evaluation by your physician. Problem is an ongoing problem. Symptoms are unchanged. kdr
[2019-04-12] MEDS ORDERED: FUROSEMIDE 40 MG TABLET ONE (19:59)
[2019-04-12 22:21] VITALS: BP 158/85; TEMP 99.1; O2SAT 96
== END 2019-04-12 20:03 | disposition home or self-care (01) ==
LOC: ER 19:11
DX: Z76.0 Encounter for issue of repeat prescription (principal); R60.9 Edema, unspecified; I50.9 Heart failure, unspecified; J44.9 Chronic obstructive pulmonary disease, unspecified; I10 Essential (primary) hypertension; F17.210 Nicotine dependence, cigarettes, uncomplicated; Z95.818 Presence of other cardiac implants and grafts
CPT/HCPCS: 99283

== ENCOUNTER 2021-08-18 23:02 | Inpatient (IN) | payer MEDICARE, OTHER ==
--- OUTSIDE RECORDS SUMMARY | 2021-08-18 23:06 | XMS REPORT | Continuity of Care Document ---
:1950 Author Organization [facility] t Address [address] [place] [address] Dr. Fernández [address] [place] [address] Care Team Providers Name Role Phone PRINCE LOPEZ Attending Clinician Unavailable PENNY Attending Clinician Unavailable JOHN Attending Clinician Unavailable Payers Payer Name Policy Type Policy Number Effective Date Expiration Date S [facility] [employer] [id number] 2020 (MEDICARE 00:00:00 REPLACEMENT HMO) Problems Condition Condition Condition Status Onset Resolution Last Treating Co mments Source Name Details Category Date Date Treatment Clinician Date Athscl Athscl Problem Active [facility] heart heart ity of disease [place] [facility] coronary coronary ans artery w/o artery w/o ang pctrs ang pctrs Asbestos Asbestos Problem Active Unive rs exposure exposure ity of [place] Physici ans Loculated Loculated Problem Active Uni vers pleural pleural ity of effusion effusion [place] [facility] Centrilobu Centrilobu Problem Active U nivers lar lar [place] [facility] Allergies, Adverse Reactions, Alerts This patient has no known allergies or adverse reactions. Social History Smoking Status Start Date Stop Date Source Smokes tobacco daily (finding) [facility] Medications Ordered Filled Start Stop Current Ordering Indication Dosage Frequency Signature Comments Components Source Medication Medication Date Date Medication? Clinician (SIG) Name Name Drew Russell 2019-06 Yes SULEMA INHALE TWO Univers Respimat Respimat 0-12 SALAS (2) PUFFS ity of 2.5 MCG/ACT 2.5 MCG/ACT 00:00: M.D. BY MOUTH [place] Inhalation Inhalation 00 ONCE Phy sici Aerosol Aerosol DAILY. ans Solution Solution Metoprolol Metoprolol 2012-06 Yes KHOI 1 Q0.5D TAKE 1 Univers Tartrate 25 Tartrate 25 1-21 SDRINGOLA TABLET ity of MG Oral MG Oral 00:00: M.D. TWICE [place] Tablet Tablet 00 DAILY Physici ans Clopidogrel Clopidogrel Yes MARK 1 QD TAKE 1 Univers Bisulfate Bisulfate 2-20 ENRIQUE M.D. TABLET ity of 75 MG Oral 75 MG Oral 00:00: DAILY. [place] Tablet Tablet 00 Physici ans Aspirin 325 Aspirin 325 2011-06 Yes 1 QD TAKE 1 Univers MG Oral MG Oral 2-28 TABLET ity of Tablet Tablet 00:00: DAILY Physici ans Simvastatin Simvastatin 2011-06 Yes MARK 1 QD TAKE 1 Univers 40 MG Oral 40 MG Oral 2-28 ENRIQUE M.D. TABLET ity of Tablet Tablet 00:00: DAILY. Physici ans Lisinopril Lisinopril 2011-06 Yes MARK 1 QD TAKE 1 Univers 10 MG Oral 10 MG Oral 2-28 ENRIQUE M.D. TABLET ity of Tablet Tablet 00:00: DAILY. [place] [facility]ici ans Vital Signs Vital Name Observation Time Observation Value Comments Source Systolic blood 2020-04-16 141 mm[Hg] Location: [facility] 07:34:00 Position: [place] Physician s Sitting Diastolic blood 2020-04-16 60 mm[Hg] Location: [facility] 07:34:00 Position: [place] Physician s Sitting Weight 2020-04-16 173.125 [lb_av] [place] [facility] 07:34:00 [place] [facility] s Body mass index 2020-04-16 22.23 kg/m2 [place] [facility] (BMI) [Ratio] 07:34:00 Gabriel Sweeney ns Body temperature 2020-04-16 97.2 [degF] Method: [facility] 07:34:00 Tympanic [place] [facility]ician s Heart Rate 2020-04-16 59 /min Location: L [facility] 07:34:00 Radial; [place] Physician s Quality: Normal O2 SAT 2020-04-16 95 % Source: [facility] 07:34:00 Non-Rebreather [place] Physici ans Systolic blood 2020-04-07 137 mm[Hg] [facility] 14:12:[facility] Position: [place] Physician s Sitting Diastolic blood 2020-04-07 74 mm[Hg] Location: [facility] 14:12:00 Position: [place] Physician s Sitting Body height 2020-04-07 74 [in_us] [facility] 14:12: [place] Physician s Weight 2020-04-07 171 [lb_av] [facility] 14:: [place] Physician s Body mass index 2020-04-07 21.96 kg/m2 [facility] (BMI) [Ratio] 14:12:00 [place] [facility]icia ns Body temperature 2020-04-07 97.8 [degF] [facility] 14:12:00 [place] [facility] s Heart Rate 2020-04-07 54 /min [facility] 14:12:00 [place] [facility]ician s Respiratory rate 2020-04-07 18 /min [facility] 14:12:00 [place] Physician s O2 SAT 2020-04-07 97 % Source: RA [facility] 14:12:00 [place] [facility]ician s Procedures Procedure Date / Time Performed Performing Clinician Sour e PET CT Lung solitary 2020-04-07 00:00:00 [facility] pulm nodule [id number] Physicians Plan of Care Planned Activity Planned Date Details Comments Source Diagnostic Test 2020-04-[address] [facility] Pending 00:00:00 solitary pulm Physicians nodule [id number] [code = 29991] Diagnostic Test 2020-04-[address] Lung [facility] Pending 00:00:00 solitary pulm Physicians nodule [id number] [code = 30196] Encounters Start End Encounter Admission Attending Care Care Encounter Source Date/Time Date/Time Type Type Clinicians Facility Department ID 2020-11-21 2020-11-21 Outpatient [facility] [id number] [facility] 08:00:00 08:00:00 [id number] [facility] l [facility] 2020-05-05 2020-05-05 Outpatient JOHN [facility] PUL [id number] [facility] 13:21:00 15:55:00 PASTORA 2020-04-15 2020-04-15 Appointmen DOLLY FRANCIS Cardiology [id number] Univers 14:00:00 14:00:00 t; Carlos DESIR - [place] iraj [facility] Gabriel DESIR M.D. Center Physi ci ans 2020-04-07 2020-04-07 Appointmen DOLLY LOPEZ Pulmonary & [id number] Univers 13:30:00 13:30:00 t; PASTORA LOPEZ [facility] f PUSHAN, M.D. [place] M.D. Physici ans Results This patient has no known results.
[2021-08-19 00:11] LABS: Protime INR 0.93
[2021-08-19 00:13] LABS: Absolute Lymphocytes (CBC) 4.8 K/uL (0.7-4.9); Hematocrit 55.9 % (39.6-49.0); Lymphocytes % 25.4 % (15.3-44.8); MPV 8.7 fL (7.6-11.3); RBC Red Blood Cell Count 6.09 M/uL (4.33-5.43)
[2021-08-19] MEDS ORDERED: METHYLPREDNISOLONE 125 MG INJ ONE (00:17)
[2021-08-19] MEDS ORDERED: ALBUTEROL 2.5 MG/3 ML NEB SOL ONE ×2 (00:22→07:54)
[2021-08-19 00:26] LABS: Albumin 4.1 g/dL (3.4-5.0); Bilirubin Direct 0.2 mg/dL (0-0.2); Bilirubin Total 0.7 mg/dL (0.2-1.0); Magnesium 2.8 mg/dL (1.8-2.4); Potassium 5.3 mmol/L (3.5-5.1); Protein, Total 9.1 g/dL (6.4-8.2); Troponin High Sensitivity 31.4 pg/mL (<58.9)
[2021-08-19 00:41] LABS: SARS-COV-2 RT PCR NEGATIVE (NEGATIVE)
[2021-08-19 01:30] LABS: Arterial Blood Carboxyhemoglob 2.3 % (0-1.5); Blood Gas Oxyhemoglobin 95.9 % (94-97); Blood O2 Saturation 99.3 % (92-98.5)
[2021-08-19] MEDS ORDERED: CEFTRIAXONE 1000 MG/VIAL ONE ×2 (01:41→20:35)
[2021-08-19] MEDS ORDERED: FUROSEMIDE 40 MG/4 ML VIAL ONE (01:41)
[2021-08-19] MEDS ORDERED: NA CHLORIDE 0.9% 50 ML ONE (01:42)
[2021-08-19] MEDS ORDERED: NA CHLORIDE 0.9% 250 ML ONE (02:37)
[2021-08-19] MEDS ORDERED: AZITHROMYCIN 500 MG INJ IVPB ONE (02:43)
--- NOTE | 2021-08-19 03:17 | EDPHYS ---
Physician Documentation [facility] Name: Gabo Chow Sr Age: 70 yrs Sex: Male : 1950 Arrival Date: 08/18/2021 Time: 23:09 Bed 7 Private MD: ED Physician Amado Styles HPI: 08/19 00:10 This 70 yrs old Male presents to ER via Wheelchair with complaints of Breathing mh7 Difficulty, General Weakness. 00:10 The patient has shortness of breath at rest. Onset: The symptoms/episode began/occurred mh7 2 day(s) ago. Duration: The symptoms are continuous, and are steadily getting worse. The patient's shortness of breath is aggravated by coughing, is alleviated by nothing. Associated signs and symptoms: Pertinent positives: productive cough, Decreased appetite, generalized fatigue, Pertinent negatives: chest pain, non-productive cough, diaphoresis, dizziness, fever, hemoptysis, loss of consciousness, nausea, numbness in extremities, visual changes, vomiting. Severity of symptoms: At their worst the symptoms were moderate last night, in the emergency department the symptoms are unchanged. Historical: - Allergies: 08/18 23:25 No Known Allergies; al4 - PMHx: 23:25 CHF; Hypertension; al4 - Immunization history:: Adult Immunizations up to date, Client reports having NOT received the Covid vaccine. Pneumococcal vaccine is not up to date, Flu vaccine is not up to date. - Social history:: Smoking status: Patient reports the use of cigarette tobacco products, smokes one pack cigarettes per day. ROS: 08/19 00:10 Constitutional: Negative for fever, chills, and weight loss, Eyes: Negative for injury, mh7 pain, redness, and discharge, ENT: Negative for injury, pain, and discharge, Neck: Negative for injury, pain, and swelling, Cardiovascular: Negative for chest pain, palpitations, and edema, Abdomen/GI: Negative for abdominal pain, nausea, vomiting, diarrhea, and constipation, Back: Negative for injury and pain, : Negative for injury, bleeding, discharge, and swelling, MS/Extremity: Negative for injury and deformity, Skin: Negative for injury, rash, and discoloration, Neuro: Negative for headache, weakness, numbness, tingling, and seizure, Psych: Negative for depression, anxiety, suicide ideation, homicidal ideation, and hallucinations, Allergy/Immunology: Negative for hives, rash, and allergies, Endocrine: Negative for neck swelling, polydipsia, polyuria, polyphagia, and marked weight changes, Hematologic/Lymphatic: Negative for swollen nodes, abnormal bleeding, and unusual bruising. Exam: 00:10 Head/Face: Normocephalic, atraumatic. Eyes: Pupils equal round and reactive to light, mh7 extra-ocular motions intact. Lids and lashes normal. Conjunctiva and sclera are non-icteric and not injected. Cornea within normal limits. Periorbital areas with no swelling, redness, or edema. Neck: Trachea midline, no thyromegaly or masses palpated, and no cervical lymphadenopathy. Supple, full range of motion without nuchal rigidity, or vertebral point tenderness. No Meningismus. Chest/axilla: Normal chest wall appearance and motion. Nontender with no deformity. No lesions are appreciated. Cardiovascular: Regular rate and rhythm with a normal S1 and S2. No gallops, murmurs, or rubs. Normal PMI, no JVD. No pulse deficits. 00:10 Abdomen/GI: Soft, non-tender, with normal bowel sounds. No distension or tympany. No guarding or rebound. No evidence of tenderness throughout. Back: No spinal tenderness. No costovertebral tenderness. Full range of motion. Skin: Warm, dry with normal turgor. Normal color with no rashes, no lesions, and no evidence of cellulitis. MS/ Extremity: Pulses equal, no cyanosis. Neurovascular intact. Full, normal range of motion. Neuro: Awake and alert, GCS 15, oriented to person, place, time, and situation. Cranial nerves II-XII grossly intact. Motor strength 5/5 in all extremities. Sensory grossly intact. Cerebellar exam normal. Normal gait. Psych: Awake, alert, with orientation to person, place and time. Behavior, mood, and affect are within normal limits. 00:10 Constitutional: The patient appears alert, awake, in obvious distress, mildly distressed, obviously ill. 00:10 Respiratory: mild respiratory distress is noted, Respirations: prolonged exhalation, that is moderate, Breath sounds: rhonchi, that are moderate, are heard diffusely, wheezing: expiratory that is moderate, is heard diffusely, Respiratory rate: 22 Vital Signs: 08/18 23:24 BP 157 / 71; Pulse 80; Resp 20; Temp 97.9(T); Pulse Ox 91% on R/A; Weight 74.84 kg (R); al4 Height 6 ft. (182.88 cm) (R); Pain 0/10; 23:39 Pulse Ox 86% on R/A; sm5 23:39 Pulse Ox 91% on 3 lpm NC; sm5 23:50 Pulse Ox 77% on 3 lpm NC; sm5 23:50 Pulse Ox 95% on 15% Non-rebreather mask; sm5 23:24 Body Mass Index 22.38 (74.84 kg, 182.88 cm) al4 MDM: 08/19 03:13 Differential diagnosis: Anemia Anxiety Reaction asthma, Bronchitis CHF exacerbation, mh7 Chronic Obstructive Pulmonary Disease Myocardial Infarction pneumonia, Psychogenic pulmonary edema, reactive airway disease. Antibiotic administration: Rocephin and Zithromax given. Data reviewed: vital signs, nurses notes, old medical records, lab test result(s), cardiac enzymes, CBC, electrolytes, EKG, radiologic studies, plain films. Data interpreted: Pulse oximetry: on BiPAP is 96 %. Interpretation: acceptable. Counseling: I had a detailed discussion with the patient and/or guardian regarding: the historical points, exam findings, and any diagnostic results supporting the discharge/admit diagnosis, the presence of at least one elevated blood pressure reading (>120/80) during this emergency department visit, lab results, radiology results, the need for further work-up and treatment in the hospital. Response to treatment: the patient's symptoms have markedly improved after treatment. 03:15 Patient medically screened. [facility] 08/18 23:45 Order name: Basic Metabolic Panel; Complete Time: 00:55 [facility] 08/18 23:45 Order name: CBC with Diff; Complete Time: 00:55 [facility] 08/18 23:45 Order name: LFT's; Complete Time: 00:55 [facility] 08/18 23:45 Order name: Magnesium; Complete Time: 00:55 [facility] 08/18 23:45 Order name: NT PRO-BNP; Complete Time: 00:55 [facility] 08/18 23:45 Order name: PT-INR; Complete Time: 00:55 [facility] 08/18 23:45 Order name: Troponin HS; Complete Time: 00:55 [facility] 08/18 23:45 Order name: COVID-19/FLU A+B/RSV (Document "Date of Onset" if Symptomatic); Complete [facility] Time: 00:55 08/19 00:04 Order name: Arterial Blood Gas; Complete Time: 02:27 [facility] 08/19 01:00 Order name: Blood Culture Adult (2) [facility] 08/19 01:00 Order name: Lactate; Complete Time: 02:27 [facility] 08/19 01:00 Order name: Procalcitonin; Complete Time: 02:27 [facility] 08/19 03:48 Order name: Basic Metabolic Panel [facility] 08/19 03:48 Order name: Basic Metabolic Panel [facility] 08/18 23:45 Order name: XRAY Chest (1 view) [facility] 08/18 23:45 Order name: EKG; Complete Time: 23:46 [facility] 08/18 23:45 Order name: Cardiac monitoring; Complete Time: 00:12 [facility] 08/18 23:45 Order name: EKG - Nurse/Tech; Complete Time: 00:00 [facility] 08/18 23:45 Order name: IV Saline Lock; Complete Time: 00:00 [facility] 08/19 03:48 Order name: Heart Healthy [facility] 08/19 03:48 Order name: CBC with Automated Diff [facility] 08/19 03:48 Order name: CBC with Automated Diff [facility] 08/19 03:48 Order name: NT PRO-BNP [facility] 08/19 03:48 Order name: NT PRO-BNP [facility] 08/19 08:19 Order name: ABG Arterial Blood Gas [facility] 08/18 23:45 Order name: Labs collected and sent; Complete Time: 00:00 [facility] 08/18 23:45 Order name: O2 Per Protocol; Complete Time: 00:00 [facility] 08/18 23:45 Order name: O2 Sat Monitoring; Complete Time: 00:00 [facility] Administered Medications: 00:20 Drug: Albuterol - atroVENT (ipratropium) (3:1) (2.5 mg - 0.5 mg) 3 ml Route: Nebulizer; sm5 00:20 Drug: SOLU-Medrol (methylPrednisoLONE) 125 mg Route: IVP; Site: left forearm; 5 01:48 Drug: Rocephin (cefTRIAXone) 1 grams Route: IV; Rate: per protocol; Site: left forearm; 5 01:48 Drug: Lasix (furosemide) 40 mg Route: IVP; Site: left forearm; 5 02:44 Drug: AZITHromycin 500 mg Route: IVPB; Infused Over: 1 hrs; Site: left antecubital; st1 Disposition Summary: 08/19/21 03:15 Hospitalization Ordered Hospitalization Status: Inpatient Admission [facility] Provider: Joesph Leslie Condition: Stable [facility] Problem: an acute exacerbation [facility] Symptoms: have improved [facility] Bed/Room Type: Standard [facility] Location: Telemetry/MedSurg (Inpatient)(08/19/21 07:37) bd Room Assignment: [facility](08/19/21 07:37) bd Diagnosis - COPD/ Chronic obstructive pulmonary disease with (acute) exacerbation [facility] - Pneumonia, unspecified organism [facility] - Hypoxemia [facility] Forms: - Medication Reconciliation Form [facility] - SBAR form [facility] Signatures: Dispatcher [employer] EDMS Dedra Adorno Cindy, RN RN Amado Murray MD MD [facility] Karlo Valenzuela Sarah, RN RN sm5 Paula Villavicencio RN RN st1 Corrections: (The following items were deleted from the chart) 03:20 03:15 Telemetry/MedSurg (Inpatient) [facility] cg 03:20 03:15 [facility] cg 07:37 03:20 [facility] ER HOLD cg bd 07:37 03:20 ERHOLD- cg bd
--- NOTE | 2021-08-19 03:17 | ER ---
Nurse's Notes [facility] Name: Gabo Chow Sr Age: 70 yrs Sex: Male : 1950 Arrival Date: 08/18/2021 Time: 23:09 Bed 7 Private MD: Diagnosis: COPD/ Chronic obstructive pulmonary disease with (acute) exacerbation;Pneumonia, unspecified organism;Hypoxemia Presentation: 08/18 23:24 Chief complaint: Patient states: SOB that started last night. Coronavirus screen: al4 Vaccine status: Patient reports being unvaccinated. Ebola Screen: No symptoms or risks identified at this time. Initial Sepsis Screen: Does the patient meet any 2 criteria? No. Patient's initial sepsis screen is negative. Does the patient have a suspected source of infection? No. Patient's initial sepsis screen is negative. Risk Assessment: Do you want to hurt yourself or someone else? Patient reports no desire to harm self or others. Onset of symptoms was August 17, 2021. 23:24 Method Of Arrival: Wheelchair al4 23:24 Acuity: ALLI 3 al4 Triage Assessment: 23:25 General: Appears in no apparent distress. uncomfortable, Behavior is calm, cooperative. al4 Pain: Denies pain. Neuro: Level of Consciousness is awake, alert, obeys commands, Oriented to person, place, time, situation. Cardiovascular: Capillary refill < 3 seconds Patient's skin is warm and dry. Respiratory: Reports shortness of breath at rest cough that is productive, Onset: The symptoms/episode began/occurred gradually, the patient has moderate shortness of breath. Musculoskeletal: Range of motion: intact in all extremities. Historical: - Allergies: 23:25 No Known Allergies; al4 - PMHx: 23:25 CHF; Hypertension; al4 - Immunization history:: Adult Immunizations up to date, Client reports having NOT received the Covid vaccine. Pneumococcal vaccine is not up to date, Flu vaccine is not up to date. - Social history:: Smoking status: Patient reports the use of cigarette tobacco products, smokes one pack cigarettes per day. Assessment: 08/19 00:02 General: Appears distressed, Behavior is appropriate for age. Pain: Denies pain. Neuro: sm5 Level of Consciousness is awake, alert, obeys commands, Oriented to person, place, time, situation. Cardiovascular: Capillary refill < 3 seconds diaphoretic. Cardiovascular: Rhythm is regular. Respiratory: Airway is patent Trachea midline Respiratory effort is labored, using tripod position, Breath sounds with wheezes. Vital Signs: 08/18 23:24 BP 157 / 71; Pulse 80; Resp 20; Temp 97.9(T); Pulse Ox 91% on R/A; Weight 74.84 kg (R); al4 Height 6 ft. (182.88 cm) (R); Pain 0/10; 23:39 Pulse Ox 86% on R/A; sm5 23:39 Pulse Ox 91% on 3 lpm NC; sm5 23:50 Pulse Ox 77% on 3 lpm NC; sm5 23:50 Pulse Ox 95% on 15% Non-rebreather mask; sm5 23:24 Body Mass Index 22.38 (74.84 kg, 182.88 cm) al4 ED Course: 23:09 Patient arrived in ED. wm 23:25 Triage completed. al4 23:25 Arm band placed on left wrist. al4 23:31 Amado Styles MD is Attending Physician. mh7 23:52 COVID-19/FLU A+B/RSV (Document "Date of Onset" if Symptomatic) Sent. st1 08/19 00:00 Yeelna Redman RN is Primary Nurse. sm5 00:00 Basic Metabolic Panel Sent. sm5 00:00 CBC with Diff Sent. sm5 00:00 LFT's Sent. sm5 00:00 Magnesium Sent. sm5 00:00 NT PRO-BNP Sent. sm5 00:00 PT-INR Sent. sm5 00:00 Troponin HS Sent. sm5 00:00 COVID-19/FLU A+B/RSV (Document "Date of Onset" if Symptomatic) Sent. sm5 00:08 XRAY Chest (1 view) In Process Unspecified. EDMS 03:14 Joesph Leslie MD is Hospitalizing Provider. mh7 07:11 Primary Nurse role handed off by Yelena Redman, DERIC tw2 07:11 Uma Moreno RN is Primary Nurse. tw2 07:11 Report received from traveler nurse at this time. tw2 Administered Medications: 00:20 Drug: Albuterol - atroVENT (ipratropium) (3:1) (2.5 mg - 0.5 mg) 3 ml Route: Nebulizer; sm5 00:20 Drug: SOLU-Medrol (methylPrednisoLONE) 125 mg Route: IVP; Site: left forearm; sm5 01:48 Drug: Rocephin (cefTRIAXone) 1 grams Route: IV; Rate: per protocol; Site: left forearm; sm5 01:48 Drug: Lasix (furosemide) 40 mg Route: IVP; Site: left forearm; 5 02:44 Drug: AZITHromycin 500 mg Route: IVPB; Infused Over: 1 hrs; Site: left antecubital; st1 Outcome: 03:15 Decision to Hospitalize by Provider. [facility] 09:27 Admitted to Tele accompanied by tech. [facility] 09:27 Condition: stable 09:27 Instructed on the need for admit. 09:28 Patient left the ED. [facility] Signatures: Dispatcher [employer] Uma Acuna RN RN 2 Amado Styles MD MD 7 Em Ireland Jennifer, RN RN 6 Karlo Valenzuela Sarah, RN RN 5 Paula Villavicencio, DERIC RN st1
[2021-08-19] MEDS ORDERED: ACETAMINOPHEN 325 MG TABLET PO PRN (03:42)
[2021-08-19] MEDS ORDERED: ONDANSETRON 4 MG/2 ML VIAL IV PRN (03:42)
[2021-08-19] MEDS ORDERED: ALBUTEROL 2.5 MG/3 ML NEB SOL NEB PRN ×2 (03:42→08:33)
[2021-08-19] MEDS ORDERED: IPRATROPIUM BROM 0.5MG/2.5ML ONE (07:54)
[2021-08-19] MEDS: ALBUTEROL 2.5 MG/3 ML NEB SOL NEB PRN (07:58)
[2021-08-19] MEDS: IPRATROPIUM BROM 0.5MG/2.5ML NEB PRN (07:58)
[2021-08-19] MEDS ORDERED: INFLUENZA VACCINE (for 6+ mo) 0.5 ML DOSE IMVAC ONE (08:00)
[2021-08-19] MEDS ORDERED: PNEUMOCOCCAL VACCINE 0.5 ML IMVAC ONE (08:00)
[2021-08-19 08:18] LABS: Blood Gas Oxyhemoglobin 94.6 % (94-97); Blood O2 Saturation 96.5 % (92-98.5)
[2021-08-19] MEDS ORDERED: LEVALBUTEROL 0.63 MG/3 ML NEB NEB PRN (08:19)
--- NOTE | 2021-08-19 08:26 | P.HP ---
Certification for Inpatient Patient admitted to: Inpatient With expected LOS: >2 Midnights Patient will require the following post-hospital care: None Practitioner: I am a practitioner with admitting privileges, knowledge of patient current condition, hospital course, and medical plan of care. Services: Services provided to patient in accordance with Admission requirements found in Title 42 Section 412.3 of the Code of Federal Regulations Patient History Date of Service: 08/19/21 Primary Care Provider: Anuj Reason for admission: COPD exacerbation, pneumonia History of Present Illness: Office patient of [facility]. He was recently treated for a copd exacerbation as an out patient. He had his advair increased. However he continues to smoke. The patient has a sudden exacertbation. Came to the ER pco2 was in the 90 range. Had a possible pneumonia on the right base per chest xray. Curb 65 score is 2, which correlates with a 3% 30 day mortality. He is currently on a bipap. Which will help his decrease that Pco2. Allergies No Known Allergies Allergy (Verified 05/20/12 16:57) Home Medications: Atorvastatin Calcium [Lipitor] 40 mg PO BEDTIME #30 tab 07/26/18 Clopidogrel Bisulfate [Plavix] 75 mg PO DAILY #30 tablet 07/26/18 Furosemide [Lasix] 40 mg PO DAILY #7 tablet 07/26/18 Metoprolol Tartrate [Lopressor*] 25 mg PO BID #60 tab 07/26/18 lisinopriL [Prinivil*] 10 mg PO DAILY #30 tab 07/26/18 - Past Medical/Surgical History Has patient received pneumonia vaccine in the past: No Diabetic: No -: HTN -: COPD - Social History Smoking Status: Current every day smoker Alcohol use: No CD- Drugs: No Caffeine use: Yes Review of Systems 10-point ROS is otherwise unremarkable Respiratory: Cough, Shortness of Breath Physical Examination - Physical Exam General: Alert, In no apparent distress HEENT: Atraumatic, PERRLA, Mucous membr. moist/pink, EOMI, Sclerae nonicteric Neck: Supple, 2+ carotid pulse no bruit, No LAD, Without JVD or thyroid abnormality Respiratory: Diminished, Expiratory wheezes Cardiovascular: Regular rate/rhythm, Normal S1 S2 Gastrointestinal: Normal bowel sounds, No tenderness Musculoskeletal: No tenderness Integumentary: No rashes Neurological: Normal gait, Normal speech, Normal strength at 5/5 x4 extr, Normal tone, Normal affect Lymphatics: No axilla or inguinal lymphadenopathy - Studies Laboratory Data (last 24 hrs) 08/18/21 23:58: PT 10.7, INR 0.93 08/18/21 23:58: WBC 18.80 H, Hgb 18.1 H, Hct 55.9 H, Plt Count 331 08/18/21 23:58: Sodium 134 L, Potassium 5.3 H, BUN 57 H, Creatinine 2.36 H, Glucose 147 H, Magnesium 2.8 H D, Total Bilirubin 0.7, AST 17, ALT 21, Alkaline Phosphatase 108 Assessment and Plan - Problems (Diagnosis) (1) Acute bronchitis with COPD Current Visit: Yes Status: Acute Plan: Will admit him Continue bipap. steroids and breathing treatment. (2) Pneumonia Current Visit: Yes Status: Acute Plan: continue zithromax and ceftriaxone. Will await his blood cultures Qualifiers: Pneumonia type: due to unspecified organism Laterality: right Lung location: lower lobe of lung Qualified Code(s): J18.9 - Pneumonia, unspecified organism (3) CHF (congestive heart failure) Current Visit: Yes Status: Acute Plan: stable at this time. will give him a day of fluids. Consider d/c tomorrow. Qualifiers: Heart failure type: systolic Heart failure chronicity: chronic Qualified Code(s): I50.22 - Chronic systolic (congestive) heart failure (4) HTN (hypertension) Current Visit: Yes Status: Acute Plan: restart his metoprolol. Will hold his lisinopril till his kidney function improves Qualifiers: Hypertension type: primary hypertension Qualified Code(s): I10 - Essential (primary) hypertension (5) Mixed hyperlipidemia Current Visit: Yes Status: Chronic Plan: continue statin therapy. (6) Acute renal failure Current Visit: Yes Status: Acute Plan: hold lisinopril. start fluids on the patient. He is normal stage 1 ckd. Qualifiers: Acute renal failure type: unspecified Qualified Code(s): N17.9 - Acute kidney failure, unspecified (7) Nicotine dependence Current Visit: Yes Status: Chronic Plan: add a nicotine patch Qualifiers: Nicotine product type: cigarettes Substance use status: uncomplicated Qualified Code(s): F17.210 - Nicotine dependence, cigarettes, uncomplicated Discharge Plan: Home Plan to discharge in: 48 Hours - Advance Directives Does patient have a Living Will: No Does patient have a Durable POA for Healthcare: No - Code Status/Comfort Care Code Status Assessed: No Code Status: Full Code Physician Review: Patient Assessed, Agree with Above Assessment and Plan Critical Care: No Time Spent Managing Pts Care (In Minutes): 50
[2021-08-19] MEDS ORDERED: D5 0.45 NS 1,000 ML IV SCH (09:00)
[2021-08-19] MEDS ORDERED: AZITHROMYCIN IV 250 MG in NA CHLORIDE 0.9% 250 ML IVPB SCH (09:00)
[2021-08-19] MEDS: NICOTINE 21 MG/PAT TD SCH (09:00)
[2021-08-19] MEDS: METHYLPREDNISOLONE 40 MG INJ IV SCH ×2 (09:46→16:03)
[2021-08-19] MEDS: ASPIRIN EC 81 MG TAB PO SCH (09:46)
[2021-08-19] MEDS: METOPROLOL TAR 25 MG TAB PO SCH ×2 (09:47→21:00)
[2021-08-19] MEDS: NA CHLORIDE 0.9% 1,000 ML IV SCH ×2 (09:47→22:20)
[2021-08-19] MEDS: CLOPIDOGREL 75 MG TABLET PO SCH (09:47)
[2021-08-19] MEDS: PANTOPRAZOLE 40MG TABLET PO SCH (09:47)
[2021-08-19] MEDS: CEFTRIAXONE 1,000 MG in NA CHLORIDE 0.9% 50 ML IVPB SCH ×2 (09:47→21:00)
--- NOTE | 2021-08-19 11:04 | RAD REPORT ---
EXAM DESCRIPTION: RAD - Chest Single View - 08/19/2021 12:07 am CLINICAL HISTORY: 70 years Male, SOB COMPARISON: None. FINDINGS: There is an opacity in the right lower lung zone. There is suggestion of a small right ple ural effusion versus pleural thickening. No pneumothorax. Cardiomediastinal silhouette is unremarkable. Osseous structures are unremarkable. IMPRESSION: Right basilar pulmonary opacity concerning for pneumonia. Possible small right pleural e ffusion versus pleural thickening. Electronically signed by: Jimmy Malhotra MD 08/19/2021 1:31 AM DELIVERY SUPERVISOR Due to temporary technical issues with the PACS/Fluency reporting system, reports are being signed by the in house radiologist without review as a courtesy to ensure prompt reporting. The interpreting r adiologist is fully responsible for the content of the report.
[2021-08-19] MEDS: ENOXAPARIN 30 MG/0.3 ML SQ SCH (16:02)
[2021-08-19] MEDS: ATORVASTATIN 40 MG TAB PO SCH (21:05)
[2021-08-20] MEDS: METHYLPREDNISOLONE 40 MG INJ IV SCH ×3 (00:13→16:17)
[2021-08-20 03:44] LABS: Absolute Lymphocytes (CBC) 1.5 K/uL (0.7-4.9); Hematocrit 42.2 % (39.6-49.0); Lymphocytes % 8.3 % (15.3-44.8); MPV 8.5 fL (7.6-11.3); RBC Red Blood Cell Count 4.64 M/uL (4.33-5.43)
[2021-08-20 04:11] LABS: Potassium 5.7 mmol/L (3.5-5.1)
[2021-08-20 04:41] LABS: Blood Morphology Comment NOT SEEN (NOT SEEN); Platelet Estimate ADEQ
[2021-08-20] MEDS: CEFTRIAXONE 1,000 MG in NA CHLORIDE 0.9% 50 ML IVPB SCH (08:43)
[2021-08-20] MEDS: METOPROLOL TAR 25 MG TAB PO SCH ×2 (08:44→21:00)
[2021-08-20] MEDS: PANTOPRAZOLE 40MG TABLET PO SCH (08:45)
[2021-08-20] MEDS: ASPIRIN EC 81 MG TAB PO SCH (08:45)
[2021-08-20] MEDS: CLOPIDOGREL 75 MG TABLET PO SCH (08:45)
[2021-08-20] MEDS: NICOTINE 21 MG/PAT TD SCH (08:45)
[2021-08-20] MEDS ORDERED: AZITHROMYCIN IV 250 MG in NA CHLORIDE 0.9% 250 ML IVPB SCH (09:00)
[2021-08-20] MEDS: NA CHLORIDE 0.9% 1,000 ML IV SCH (11:27)
[2021-08-20] MEDS ORDERED: Levofloxacin 750mg IV 750 MG/150 ML BAG IV SCH (14:00)
[2021-08-20] MEDS: ENOXAPARIN 30 MG/0.3 ML SQ SCH (16:17)
--- NOTE | 2021-08-20 17:22 | P.CNS ---
Date of Consult: 08/20/21 Reason for Consult: MEHREEN Requesting Physician: Joesph Leslie Primary Care Provider: Anuj Chief Complaint: COPD exacerbation, pneumonia History of Present Illness: 70 yo WM CHF, CKD admitted to the hospital with several days of moderate, progressive dyspnea in the setting of COPD. He was told by his heart doctor last year that he has CKD but he does not recall the stage. He denies current NSAIDs. He denies any difficulty with urination. He feels better since his hospital admission. 00:10 This 70 yrs old Male presents to ER via Wheelchair with complaints of Breathing mh7 Difficulty, General Weakness. 00:10 The patient has shortness of breath at rest. Onset: The symptoms/episode began/occurred mh7 2 day(s) ago. Duration: The symptoms are continuous, and are steadily getting worse. The patient's shortness of breath is aggravated by coughing, is alleviated by nothing. Associated signs and symptoms: Pertinent positives: productive cough, Decreased appetite, generalized fatigue, Pertinent negatives: chest pain, non- productive cough, diaphoresis, dizziness, fever, hemoptysis, loss of consciousness, nausea, numbness in extremities, visual changes, vomiting. Severity of symptoms: At their worst the symptoms were moderate last night, in the emergency department the symptoms are unchanged. Allergies No Known Allergies Allergy (Verified 05/20/12 16:57) Home medications list reviewed: Yes Home Medications: Atorvastatin Calcium [Lipitor] 40 mg PO BEDTIME #30 tab 07/26/18 Clopidogrel Bisulfate [Plavix] 75 mg PO DAILY #30 tablet 07/26/18 Furosemide [Lasix] 40 mg PO DAILY #7 tablet 07/26/18 Metoprolol Tartrate [Lopressor*] 25 mg PO BID #60 tab 07/26/18 lisinopriL [Prinivil*] 10 mg PO DAILY #30 tab 07/26/18 - Past Medical/Surgical History Diabetic: No -: HTN -: COPD - Social History Smoking Status: Current every day smoker Alcohol use: No CD- Drugs: No Caffeine use: Yes Review of Systems 10-point ROS is otherwise unremarkable Respiratory: SOB with Excertion Physical Examination Temp Pulse Resp BP Pulse Ox 98.9 F 51 22 H 131/61 100 08/20/21 16:00 08/20/21 16:00 08/20/21 16:00 08/20/21 16:00 08/20/21 16:00 General: In no apparent distress, Oriented x3, Cooperative HEENT: Atraumatic Neck: Supple Respiratory: Clear to auscultation bilaterally Cardiovascular: No edema, Regular rate/rhythm Gastrointestinal: Soft and benign, Non-distended Musculoskeletal: No clubbing, No contractures Integumentary: No rashes, No cyanosis Neurological: Normal speech Blood work reviewed in the chart. Imagings Data: EXAM DESCRIPTION: RAD - Chest Single View - 08/19/2021 12:07 am CLINICAL HISTORY: 70 years Male, SOB COMPARISON: None. FINDINGS: There is an opacity in the right lower lung zone. There is suggestion of a small right pleural effusion versus pleural thickening. No pneumothorax. Cardiomediastinal silhouette is unremarkable. Osseous structures are unremarkable. IMPRESSION: Right basilar pulmonary opacity concerning for pneumonia. Possible small right pleural effusion versus pleural thickening. Conclusions/Impression: MEHREEN may be due to ATN in the setting of hypotension CKD IV with proteinuria -No NSAIDs -Renal US -Continue gentle IVF Hyponatremia -Continue IVF with NS Hyperkalemia -Kayexalate tonight -Change to a Renal Diet HTN with CKD -Reduce Metoprolol 12.5mg BID due to bradycardia Diastolic CHF, chronic -Daily weight Hyperglycemia likely due to steroids -No sugar diet -Wean steroids as tolerated -Check A1C CKD MBD -Start Vitamin D Thank you kindly for the consultation. Case reviewed with Dr. Leslie
[2021-08-20] MEDS: CALCITROL 0.25 MCG CAP PO SCH (18:27)
[2021-08-20] MEDS: VITAMIN D 5,000 UNIT CAP PO SCH (18:27)
[2021-08-20] MEDS: SOD POLYSTYREN SUL 15 GM/60 ML UCUP PO SCH ×2 (18:27→20:54)
[2021-08-20] MEDS ORDERED: ATORVASTATIN 40 MG TAB ONE (20:21)
[2021-08-20] MEDS: ATORVASTATIN 40 MG TAB PO SCH (20:54)
[2021-08-21] MEDS: METHYLPREDNISOLONE 40 MG INJ IV SCH ×3 (01:18→16:14)
[2021-08-21] MEDS: NA CHLORIDE 0.9% 1,000 ML IV SCH ×3 (01:18→15:03)
[2021-08-21 04:57] LABS: Absolute Lymphocytes (CBC) 1.9 K/uL (0.7-4.9); Hematocrit 41.5 % (39.6-49.0); Lymphocytes % 10.9 % (15.3-44.8); MPV 8.4 fL (7.6-11.3); RBC Red Blood Cell Count 4.61 M/uL (4.33-5.43)
[2021-08-21 05:13] LABS: Albumin 2.8 g/dL (3.4-5.0); Bilirubin Total 0.2 mg/dL (0.2-1.0); Magnesium 2.2 mg/dL (1.8-2.4); Phosphorus 3.5 mg/dL (2.5-4.9); Potassium 5.2 mmol/L (3.5-5.1); Protein, Total 6.3 g/dL (6.4-8.2)
[2021-08-21 05:39] LABS: Urine Appearance CLOUDY (Clear); Urine Bilirubin NEGATIVE (Negative); Urine Blood 3+ (Negative); Urine Color YELLOW (Yellow); Urine Glucose TRACE (Negative); Urine Protein 1+ (Negative); Urine Specific Gravity 1.015 (1.005-1.030); Urine Urobilinogen 0.2 mg/dL (0.2-1.0); Urine pH 5.5 (5.0-7.0)
[2021-08-21 05:51] LABS: UR PROTEIN 56.4 mg/dL (<11.9); Urine Protein/Creatinine Ratio 0.61 ratio (<0.15)
[2021-08-21] MEDS: PANTOPRAZOLE 40MG TABLET PO SCH (06:01)
[2021-08-21 06:23] LABS: Urine Bacteria >50 /HPF (NONE SEEN); Urine RBC >50 /HPF (NONE SEEN)
[2021-08-21] MEDS ORDERED: SOD POLYSTYREN SUL 15 GM/60 ML UCUP PO ONE (06:51)
--- NOTE | 2021-08-21 08:08 | RAD REPORT ---
EXAM DESCRIPTION: US - Renal Ultrasound-Complete - 08/21/2021 1:10 am CLINICAL HISTORY: Acute renal failure. Chronic renal disease COMPARISON: None. FINDINGS: The right kidney measures 10 cm with an increased echotexture. The left kidney measures 9 cm with an increased echotexture. Hydronephrosis is not seen. No gross abnormality of bladder is seen IMPRESSION: Increased renal echotexture consistent with parenchymal disease
[2021-08-21] MEDS: CALCITROL 0.25 MCG CAP PO SCH (08:09)
[2021-08-21] MEDS: CLOPIDOGREL 75 MG TABLET PO SCH (08:09)
[2021-08-21] MEDS: VITAMIN D 5,000 UNIT CAP PO SCH (08:09)
[2021-08-21] MEDS: ASPIRIN EC 81 MG TAB PO SCH (08:09)
[2021-08-21] MEDS: METOPROLOL TAR 25 MG TAB PO SCH ×2 (08:10→21:00)
[2021-08-21] MEDS: NICOTINE 21 MG/PAT TD SCH (08:10)
[2021-08-21] MEDS: ALBUTEROL 2.5 MG/3 ML NEB SOL NEB PRN (08:15)
[2021-08-21] MEDS: IPRATROPIUM BROM 0.5MG/2.5ML NEB PRN (08:15)
--- NOTE | 2021-08-21 09:41 | P.PN ---
Subjective Date of Service: 08/21/21 Primary Care Provider: Anuj Chief Complaint: COPD exacerbation, pneumonia Subjective: No new changes Review of Systems 10-point ROS is otherwise unremarkable Physical Examination - Vital Signs Temperature: 98 F Blood Pressure: 147/76 Pulse: 55 Respirations: 18 Pulse Ox (%): 94 - Physical Exam General: Alert, In no apparent distress HEENT: Atraumatic, PERRLA, EOMI Neck: Supple, JVD not distended Respiratory: Clear to auscultation bilaterally, Normal air movement Cardiovascular: Regular rate/rhythm, Normal S1 S2 Gastrointestinal: Normal bowel sounds, No tenderness Musculoskeletal: No tenderness Integumentary: No rashes Neurological: Normal speech, Normal tone, Normal affect Lymphatics: No axilla or inguinal lymphadenopathy - Studies Microbiology Data (last 24 hrs): 08/19/21 01:27 Blood - Blood Anaerobic Blood Culture - Final 08/19/21 01:27 Blood - Blood Gram Stain - Final Assessment And Plan - Current Problems (Diagnosis) (1) Acute renal failure Current Visit: Yes Status: Acute Plan: hold lisinopril. start fluids on the patient. He is normal stage 1 ckd. 08/21 slow improvement. Will keep him here till he gets closer to his baseline. Qualifiers: Acute renal failure type: unspecified Qualified Code(s): N17.9 - Acute kidney failure, unspecified (2) Acute bronchitis with COPD Current Visit: Yes Status: Acute Plan: Will admit him Continue bipap. steroids and breathing treatment. (3) Pneumonia Current Visit: Yes Status: Acute Plan: continue zithromax and ceftriaxone. Will await his blood cultures Qualifiers: Pneumonia type: due to unspecified organism Laterality: right Lung location: lower lobe of lung Qualified Code(s): J18.9 - Pneumonia, unspecified organism (4) CHF (congestive heart failure) Current Visit: Yes Status: Acute Plan: stable at this time. will give him a day of fluids. Consider d/c tomorrow. Qualifiers: Heart failure type: systolic Heart failure chronicity: chronic Qualified Code(s): I50.22 - Chronic systolic (congestive) heart failure (5) HTN (hypertension) Current Visit: Yes Status: Acute Plan: restart his metoprolol. Will hold his lisinopril till his kidney function improves Qualifiers: Hypertension type: primary hypertension Qualified Code(s): I10 - Essential (primary) hypertension (6) Mixed hyperlipidemia Current Visit: Yes Status: Chronic Plan: continue statin therapy. (7) Nicotine dependence Current Visit: Yes Status: Chronic Plan: add a nicotine patch Qualifiers: Nicotine product type: cigarettes Substance use status: uncomplicated Qualified Code(s): F17.210 - Nicotine dependence, cigarettes, uncomplicated Discharge Plan: Home Plan to discharge in: 24 Hours - Code Status/Comfort Care Code Status Assessed: No Physician Review: Patient Assessed, Agree with Above Assessment and Plan Critical Care: No Time Spent Managing PTS Care (In Minutes): 25
[2021-08-21] MEDS: ENOXAPARIN 30 MG/0.3 ML SQ SCH (16:14)
[2021-08-21] MEDS: ATORVASTATIN 40 MG TAB PO SCH (21:19)
--- NOTE | 2021-08-21 21:38 | P.PN ---
Date of Service: 08/21/21 Vital Signs Temp Pulse Resp BP Pulse Ox 98.3 F 65 16 157/76 H 94 08/21/21 20:00 08/21/21 20:00 08/21/21 20:00 08/21/21 20:00 08/21/21 20:00 Medications Acetaminophen (Acetaminophen 325 Mg Tablet) 650 mg PO Q6H PRN PRN Reason: TEMP > 100' F Albuterol Sulfate (Albuterol 2.5 Mg/3 Ml Neb Ledy) 2.5 mg NEB Q4H PRN PRN Reason: SHORTNESS OF BREATH Last Admin: 08/21/21 08:15 Dose: 2.5 mg Documented by: Aspirin (Aspirin Ec 81 Mg Tab) 81 mg PO DAILY [facility] Last Admin: 08/21/21 08:09 Dose: 81 mg Documented by: Atorvastatin Calcium (Atorvastatin 40 Mg Tab) 40 mg PO BEDTIME [facility] Last Admin: 08/21/21 21:19 Dose: 40 mg Documented by: Calcitriol (Calcitrol 0.25 Mcg Cap) 0.5 mcg PO DAILY [facility] Last Admin: 08/21/21 08:09 Dose: 0.5 mcg Documented by: Cholecalciferol (Vitamin D 5,000 Unit Cap) 5,000 unit PO DAILY [facility] Last Admin: 08/21/21 08:09 Dose: 5,000 unit Documented by: Clopidogrel Bisulfate (Clopidogrel 75 Mg Tablet) 75 mg PO DAILY [facility] Last Admin: 08/21/21 08:09 Dose: 75 mg Documented by: Enoxaparin Sodium (Enoxaparin 30 Mg/0.3 Ml) 30 mg SQ DAILY 5 PM [facility] Last Admin: 08/21/21 16:14 Dose: 30 mg Documented by: Sodium Chloride (Ns 1000 Ml Ivbag) 1,000 mls @ 75 mls/hr IV .[id number] [facility] Last Admin: 08/21/21 15:03 Dose: 1,000 mls Documented by: Levofloxacin/Dextrose (Levaquin 750 Mg/150 Ml Ivpb (Premix)) 750 mg in 150 mls @ 100 mls/hr IV Q48H [facility] Stop: 08/26/21 15:00 Last Admin: 08/20/21 15:00 Dose: 150 mls Documented by: Ipratropium [place] (Ipratropium Brom 0.5mg/2.5ml) 0.5 mg NEB Q4H PRN PRN Reason: WHEEZING Last Admin: 08/21/21 08:15 Dose: 0.5 mg Documented by: Methylprednisolone Sodium Succinate (Methylprednisolone 40 Mg Inj) 40 mg IV Q8HR [facility] Last Admin: 08/21/21 16:14 Dose: 40 mg Documented by: Metoprolol Tartrate (Metoprolol Tar 25 Mg Tab) 12.5 mg PO BID [facility] Last Admin: 08/21/21 08:10 Dose: Not Given Documented by: Nicotine (Nicotine 21 Mg/Pat) 21 mg TD DAILY [facility] Last Admin: 08/21/21 08:10 Dose: Not Given Documented by: Ondansetron HCl (Ondansetron 4 Mg/2 Ml Vial) 4 mg IV Q6H PRN PRN Reason: NAUSEA / VOMITING Pantoprazole Sodium (Pantoprazole 40mg Tablet) 40 mg PO DAILYAC [facility]; Protocol Last Admin: 08/21/21 06:01 Dose: 40 mg Documented by: Sodium Chloride (Flush Normal Saline 10 Ml) 10 ml IV BID [facility] Last Admin: 08/21/21 20:38 Dose: 10 ml Documented by: Microbiology Results 08/19/21 01:27 Blood - Blood Aerobic Blood Culture - Preliminary No growth in 24 hours. 08/19/21 01:27 Blood - Blood Anaerobic Blood Culture - Final 08/19/21 01:27 Blood - Blood Gram Stain - Final 08/19/21 01:10 Blood - Blood Aerobic Blood Culture - Preliminary No growth in 24 hours. 08/19/21 01:10 Blood - Blood Anaerobic Blood Culture - Preliminary No growth in 24 hours. Assessment/ Plan: Nephrology No dyspnea No chest pain No acute events overnight Vitals, medications, blood work and imaging reviewed in the chart. General: In no apparent distress, Oriented x3, Cooperative HEENT: Atraumatic Neck: Supple Respiratory: Clear to auscultation bilaterally Cardiovascular: No edema, Regular rate/rhythm Gastrointestinal: Soft and benign, Non-distended Musculoskeletal: No clubbing, No contractures Integumentary: No rashes, No cyanosis Neurological: Normal speech Blood work reviewed in the chart. Imagings Data: EXAM DESCRIPTION: RAD - Chest Single View - 08/19/2021 12:07 am CLINICAL HISTORY: 70 years Male, SOB COMPARISON: None. FINDINGS: There is an opacity in the right lower lung zone. There is suggestion of a small right pleural effusion versus pleural thickening. No pneumothorax. Cardiomediastinal silhouette is unremarkable. Osseous structures are unremarkable. IMPRESSION: Right basilar pulmonary opacity concerning for pneumonia. Possible small right pleural effusion versus pleural thickening. EXAM DESCRIPTION: US - Renal Ultrasound-Complete - 08/21/2021 1:10 am CLINICAL HISTORY: Acute renal failure. Chronic renal disease COMPARISON: None. FINDINGS: The right kidney measures 10 cm with an increased echotexture. The left kidney measures 9 cm with an increased echotexture. Hydronephrosis is not seen. No gross abnormality of bladder is seen IMPRESSION: Increased renal echotexture consistent with parenchymal disease Conclusions/Impression: MEHREEN likely due to hypovolemia CKD IV with proteinuria -No NSAIDs -Renal US reviewed -Continue gentle IVF Hyponatremia -Continue IVF with NS Hyperkalemia -Kayexalate prn -Hold Lisinopril -Renal diet HTN with CKD -Continue Metoprolol 12.5mg BID Diastolic CHF, chronic -Daily weight PreDM -No sugar diet -Wean steroids as tolerated CKD MBD -Continue Vitamin D
[2021-08-22] MEDS: METHYLPREDNISOLONE 40 MG INJ IV SCH ×3 (00:58→16:17)
[2021-08-22] MEDS: NA CHLORIDE 0.9% 1,000 ML IV SCH ×3 (04:47→18:31)
[2021-08-22] MEDS: PANTOPRAZOLE 40MG TABLET PO SCH (05:30)
[2021-08-22 06:15] LABS: Hematocrit 43.4 % (39.6-49.0); Lymphocytes % 14.1 % (15.3-44.8); MPV 8.9 fL (7.6-11.3); RBC Red Blood Cell Count 4.75 M/uL (4.33-5.43)
[2021-08-22 06:35] LABS: Albumin 2.8 g/dL (3.4-5.0); Potassium 4.2 mmol/L (3.5-5.1); Protein, Total 6.1 g/dL (6.4-8.2); Uric Acid 8.1 mg/dL (3.5-7.2)
[2021-08-22] MEDS: CLOPIDOGREL 75 MG TABLET PO SCH (07:43)
[2021-08-22] MEDS: CALCITROL 0.25 MCG CAP PO SCH (07:43)
[2021-08-22] MEDS: METOPROLOL TAR 25 MG TAB PO SCH ×2 (07:44→21:29)
[2021-08-22] MEDS: ASPIRIN EC 81 MG TAB PO SCH (07:44)
[2021-08-22] MEDS: VITAMIN D 5,000 UNIT CAP PO SCH (07:44)
[2021-08-22] MEDS: NICOTINE 21 MG/PAT TD SCH (07:47)
[2021-08-22 12:43] LABS: Urine Appearance CLEAR (Clear); Urine Bilirubin NEGATIVE (Negative); Urine Blood 3+ (Negative); Urine Color YELLOW (Yellow); Urine Glucose TRACE (Negative); Urine Protein 2+ (Negative); Urine Urobilinogen 0.2 mg/dL (0.2-1.0); Urine pH 5.5 (5.0-7.0)
[2021-08-22 13:08] LABS: Urine Bacteria 20-50 /HPF (NONE SEEN)
[2021-08-22] MEDS ORDERED: Levofloxacin 750mg IV 750 MG/150 ML BAG IV SCH (14:00)
[2021-08-22] MEDS ORDERED: ALBUTEROL 2.5 MG/3 ML NEB SOL NEB PRN (16:00)
[2021-08-22] MEDS ORDERED: IPRATROPIUM BROM 0.5MG/2.5ML NEB PRN (16:00)
[2021-08-22] MEDS: ENOXAPARIN 30 MG/0.3 ML SQ SCH (16:17)
--- NOTE | 2021-08-22 20:38 | PN ---
Date of Progress Note: 08/22/2021 The patient is seen in room 421 at [facility]. Subjective: The patient is alert, awake, able to communicate comfortably, and answer questions. He denies any headache, nausea, or vomiting. He denies any significant difficulty with his breathing. He states that he has been a smoker and has been smoking about a pack a day. He does have audible wh eezing easily heard on lung exam. He states that he has stopped smoking and will not smoke going for jha. He states that the last he was smoking was just before coming to the hospital. He states that with the steroids and with the nebulizer treatments, he does feel better and his breathing is openin g up. He states that he was not eating and drinking well before coming to the hospital and the main reason he presented was because he was getting short of breath. His O2 sats are about 94% when he is using oxygen. His O2 sats now are actually running in the low 90s on room air. He denies any nause a. Denies any pain. Objective: Vital Signs: Blood pressures have been running slightly on the higher side with a range for today between 149 systolic to 164 systolic, pulse is about 55-60 and regular, respirations around 14-16 and currently comfortable. Lungs: Reveal bilateral wheezing that improved slightly with the cough. Air entry is somewhat compr omised, but air can be heard all the way down to the lung lower lobes. Cardiac: The patient's heart sounds are regular. The patient does not have any swelling in his lowe r extremities. He does not have any swelling on the ankles. Skin: His skin is on the graphite pan drier tender side. Laboratory Data: Reviewed. Labs show a WBC count of 14.2, hemoglobin 14.2, hematocrit 43.4, platele t count of 231. Sodium 138, potassium 4.2, chloride 109, bicarb 23, BUN 58, creatinine 2.08. Assessment And Plan: 1.Acute kidney injury, ? Chronic kidney disease. The patient seems to be volume depleted and has no t been eating and drinking well. Getting IV fluids. Would recommend continuing IV fluids and monito ring. Advised about not using any NSAIDs. Advised about salt restriction. 2.Hyponatremia, improved. Sodium is up to 138. 3.Hyperkalemia, resolved. The patient has gotten Kayexalate. His lisinopril is being held. Contin ue on balanced potassium/low-potassium diet. The patient counseled. 4.Congestive heart failure/chronic obstructive pulmonary disease. At this point, the patient's cond ition seems to be more compromised because of chronic obstructive pulmonary disease. He does not see m to be volume overloaded, in fact he seems to be volume depleted. His breathing issues mainly are c oming from the chronic obstructive pulmonary disease exacerbation. It seems his WBC elevation slight ly could be from the steroids that he is getting appropriately for his chronic obstructive pulmonary disease treatment. Also, he is getting neb treatments. Counseled to stay off smoking. Risks with edgard yeh including risk of counseled. Advised the patient to follow up with his manager product. He states he follows with Dr. Carter and will keep his appointment. He has been on some inhalers. Not sure if he is taking any nebulizer treatments, he does not seem to think he is. He says that he has been on some inhalers. Not sure when he followed up with the manager product, but will keep follo wup. Counseled importance of keeping the followup, using his inhalers and staying away from smoke an d avoiding smoking. If his chronic obstructive pulmonary disease progresses, this could lead to sign ificant problems with his lungs that could lead to his . Also advised that smoking can lead to lung cancer. The patient seems to understand and is motivated to quit smoking. Says he has not smok ed since he has come to the hospital and will continue to not smoke once he leaves. /ARTURO Voice ID: [id number] Report ID: [id number]
[2021-08-22] MEDS: ATORVASTATIN 40 MG TAB PO SCH (21:00)
[2021-08-23] MEDS: METHYLPREDNISOLONE 40 MG INJ IV SCH ×2 (00:03→07:58)
[2021-08-23] MEDS ORDERED: HYDRALAZINE HCL 20 MG/ML VIAL IV PRN (00:14)
[2021-08-23] MEDS: NA CHLORIDE 0.9% 1,000 ML IV SCH (05:57)
[2021-08-23] MEDS: PANTOPRAZOLE 40MG TABLET PO SCH (05:57)
[2021-08-23 06:12] VITALS: BMI 24.0
[2021-08-23] MEDS: METOPROLOL TAR 25 MG TAB PO SCH (07:59)
[2021-08-23] MEDS: CALCITROL 0.25 MCG CAP PO SCH (07:59)
[2021-08-23] MEDS: CLOPIDOGREL 75 MG TABLET PO SCH (07:59)
[2021-08-23] MEDS: ASPIRIN EC 81 MG TAB PO SCH (07:59)
[2021-08-23] MEDS: NICOTINE 21 MG/PAT TD SCH (08:00)
[2021-08-23] MEDS: VITAMIN D 5,000 UNIT CAP PO SCH (08:00)
[2021-08-23 08:53] VITALS: TEMP 98.5; O2SAT 95
[2021-08-23 12:19] VITALS: BP 158/73
[2021-08-23 13:03] LABS: Absolute Lymphocytes (CBC) 2.3 K/uL (0.7-4.9); Hematocrit 45.8 % (39.6-49.0); Lymphocytes % 17.9 % (15.3-44.8); MPV 8.5 fL (7.6-11.3); RBC Red Blood Cell Count 5.08 M/uL (4.33-5.43)
[2021-08-23 13:17] LABS: Potassium 4.1 mmol/L (3.5-5.1)
[2021-08-23] MEDS ORDERED: AMLODIPINE 2.5 MG TAB PO SCH (16:00)
--- NOTE | 2021-08-23 16:26 | PN ---
Date of Progress Note: 08/23/2021 Subjective: The patient is seen in room 421 at [facility] [place]. The patient is alert, awake, comfortable, breathing a whole lot better. Denies any headache, nausea, vomiting. States he feels much improved and is looking forward to going home today. He does want to smoke whe n he gets out. He understands the risks of smoking. I discussed that again with him today. Objective: Vital Signs: His blood pressure is around 140 to 150 systolic. Last blood pressure was 158/73. Pulse is about 70 and regular. Respirations around 14 to 16 and comfortable. O2 sats are 9 4% to 96% on room air. He is afebrile. Lungs: Clear. A few wheezes that improved with cough. Abdomen: Soft. Extremities: Reveal no edema. Heart: Sounds are regular. Laboratory Data: Reviewed. Labs show WBC count of 12.9, hemoglobin 15.2, hematocrit 45.8, platelet counts of 225. Chemistry shows sodium 139, potassium 4.1, chloride 112, bicarb is 21, BUN is 54, cre atinine 1.81. This is an improvement even compared to yesterday when it was 58 and 2.08. His glucos e is 156, calcium 8.3. Assessment And Plan: The patient with acute on chronic kidney disease, chronic obstructive pulmonary disease exacerbation, history of smoking. He understands the risks of smoking and will not smoke go ing forward he say. Question chronic kidney disease given his hypertension. Hyponatremia resolved. Hyperkalemia resolved. Congestive heart failure, stable, close to euvolemic. Chronic obstructive p ulmonary disease exacerbation under control. Plan: The patient advised to monitor his blood pressure at home. Amlodipine 5 mg p.o. daily recomme nded. The patient understands to monitor his blood pressure at home. Salt restriction counseled and sates to be avoided. Advised to follow up in the clinic, given information on our clinic and understands to make an appointment. Plan and case also discussed with Dr. Shabazz, the [facility] hospitalist. /ARTURO Voice ID: [id number] Report ID: [id number]
[2021-08-24] MEDS ORDERED: AMLODIPINE 5 MG TAB PO SCH (09:00)
== END 2021-08-23 15:38 | disposition home or self-care (01) | DRG 190 ==
LOC: ER 23:02 → ERHOLD 08-19 03:54 → 4TH 08-19 09:10
PROVIDERS: ADMIT Internal Medicine; ATTEND Internal Medicine
DX: J44.0 Chronic obstructive pulmonary disease with (acute) lower respiratory infection (principal); J96.01 Acute respiratory failure with hypoxia; J18.9 Pneumonia, unspecified organism; I13.0 Hypertensive heart and chronic kidney disease with heart failure and stage 1 through stage 4 chronic kidney disease, or unspecified chronic kidney disease; I50.22 Chronic systolic (congestive) heart failure; N17.9 Acute kidney failure, unspecified; E87.1 Hypo-osmolality and hyponatremia; J44.1 Chronic obstructive pulmonary disease with (acute) exacerbation; F17.210 Nicotine dependence, cigarettes, uncomplicated; E78.2 Mixed hyperlipidemia; N18.1 Chronic kidney disease, stage 1; E87.5 Hyperkalemia; Z20.822 Contact with and (suspected) exposure to COVID-19
CPT/HCPCS: 0241U; 36415; 71045; 76770; 80048; 80053; 80076; 81001; 82570; 82805; 83036; 83605; 83735; 83880; 84100; 84145; 84156; 84300; 84484; 84550; 85025; 85610; 87040; 87086; 87088; 87205; 94640; 94660; 94760; 99285; J0360; J0456; J1650; J1940; J2920; J2930; J7030; J7050

== ENCOUNTER 2021-10-05 05:44 | Inpatient (IN) | payer MEDICARE ==
--- OUTSIDE RECORDS SUMMARY | 2021-10-05 05:47 | XMS REPORT | Continuity of Care Document ---
:1950 Author Organization [facility] t Address [address] [place] [address] Dr. 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 Clinician (SIG) Name Name Drew Stephensoniva 2019-06 Yes SULEMA INHALE TWO [facility] Respimat Respimat 0-12 SALAS (2) PUFFS ity of 2.5 MCG/ACT 2.5 MCG/ACT 00:00: M.D. BY MOUTH [place] Inhalation Inhalation 00 ONCE Phy sici Aerosol Aerosol DAILY. ans Solution Solution Metoprolol Metoprolol 2012-06 Yes KHOI 1 Q0.5D TAKE 1 [facility] Tartrate 25 Tartrate 25 1-21 SDRINGOLA TABLET ity of MG Oral MG Oral 00:00: M.D. TWICE [place] Tablet Tablet 00 DAILY Physici ans Clopidogrel [...] TABLET ity of Tablet Tablet 00:00: DAILY. [place] Physici ans Vital Signs Vital Name Observation Time Observation Value Comments Source Systolic blood 2020-04-16 141 mm[Hg] Location: [facility] 07:34:00 Position: [place] Physician s Sitting Diastolic blood 2020-04-16 60 mm[Hg] Location: [facility] 07:34:00 Position: [place] Physician s Sitting Weight 2020-04-16 173.125 [lb_av] [place] [facility] 07:34:00 [place] Physician s Body mass index 2020-04-16 22.23 kg/m2 [place] [facility] (BMI) [Ratio] 07:34:00 Gabriel Sweeney ns Body temperature 2020-04-16 97.2 [degF] Method: [facility] 07:34:00 Tympanic [place] Physician s Heart Rate 2020-04-16 59 /min Location: L [facility] 07:34:00 Radial; [place] Physician s Quality: Normal O2 SAT 2020-04-16 95 % Source: [facility] 07:34:00 Non-Rebreather [place] Physici ans Systolic blood 2020-04-07 137 mm[Hg] [facility] 14:12:[facility] Position: [place] Physician s Sitting Diastolic blood 2020-04-07 74 mm[Hg] Location: [facility] 14:12:00 Position: [place] Physician s Sitting Body height 2020-04-07 74 [in_us] [facility] 14:12: [place] Physician s Weight 2020-04-07 171 [lb_av] [facility] 14:: [place] Physician s Body mass index 2020-04-07 21.96 kg/m2 [facility] (BMI) [Ratio] 14:12:00 [place] Physicia ns Body temperature 2020-04-07 97.8 [degF] [facility] 14:12:00 [place] Physician s Heart Rate 2020-04-07 54 /min [facility] 14:12:00 [place] Physician s Respiratory rate 2020-04-07 18 /min [facility] 14:12:00 [place] Physician s O2 SAT 2020-04-07 97 % Source: RA [facility] 14:12:00 [place] Physician s Procedures Procedure Date / Time Performed Performing Clinician Sour e PET CT Lung solitary 2020-04-07 00:00:00 [facility] pulm nodule [id number] Physicians Plan of Care Planned Activity Planned Date Details Comments Source Diagnostic Test 2020-04-[address] Lung [facility] Pending 00:00:00 solitary pulm Physicians nodule [id number] [code = 17083] Diagnostic Test 2020-04-[address] Lung [facility] Pending 00:00:00 solitary pulm Physicians nodule [id number] [code = 39252] Encounters Start End Encounter Admission Attending Care Care Encounter Source Date/Time Date/Time Type Type Clinicians Facility Department ID 2020-11-21 2020-11-21 Outpatient [facility] [id number] [facility] 08:00:00 08:00:00 [id number] [facility]ica l [facility] 2020-05-05 2020-05-05 Outpatient [facility] PUL [id number] [facility] 13:21:00 15:55:00 PASTORA 2020-04-15 2020-04-15 Appointmen DOLLY FRANCIS Cardiology [id number] Univers 14:00:00 14:00:00 t; Carlos DESIR - [place] iraj [facility] Gabriel DESIR M.D. [facility] Phys[facility] ci ans 2020-04-07 2020-04-07 Appointmen DOLLY LOPEZ Pulmonary & [id number] Univers 13:30:00 13:30:00 t; PASTORA LOPEZ [facility] f PUSHAN, M.D. [place] M.D. Physici ans Results This patient has no known results.
[2021-10-05 06:05] LABS: Hematocrit 49.4 % (39.6-49.0); Lymphocytes % 13.4 % (15.3-44.8); MPV 8.1 fL (7.6-11.3); RBC Red Blood Cell Count 5.51 M/uL (4.33-5.43)
[2021-10-05] MEDS ORDERED: IPRATROPIUM BROM 0.5MG/2.5ML ONE ×2 (06:05→06:44)
[2021-10-05] MEDS ORDERED: ALBUTEROL 2.5 MG/3 ML NEB SOL ONE ×2 (06:05→06:44)
[2021-10-05 06:11] LABS: Arterial Blood Carboxyhemoglob 1.7 % (0-1.5); Blood Gas Oxyhemoglobin 95.3 % (94-97); Blood O2 Saturation 98.1 % (92-98.5)
[2021-10-05 06:23] LABS: Potassium 4.9 mmol/L (3.5-5.1)
[2021-10-05 06:24] LABS: Troponin High Sensitivity 606.7 pg/mL (<58.9)
[2021-10-05] MEDS ORDERED: METHYLPREDNISOLONE 125 MG INJ ONE (06:43)
--- NOTE | 2021-10-05 07:15 | RAD REPORT ---
EXAM DESCRIPTION: RAD - Chest Single View - 10/05/2021 6:00 am CLINICAL HISTORY: SOB COMPARISON: Portable 08/19/2021 TECHNIQUE: AP portable chest image was obtained 10/05/2021 6:00 am . FINDINGS: Chronic right base pleural and parenchymal opacification present stable from comparison. B aseline chronic interstitial lung pattern also stable. Heart and vasculature are normal. No pneumothorax or new pleural effusion identified. No acute bony abnormality seen. No acute aortic findings suspected. IMPRESSION: No acute cardiopulmonary process. Baseline interstitial pattern and chronic right base pleural and parenchymal opacification are stable from July imaging.
[2021-10-05] MEDS ORDERED: ASPIRIN 81 MG CHEWABLE TABLET ONE (07:17)
[2021-10-05] MEDS ORDERED: Levofloxacin500mg IV 500 MG/100 ML BAG IV ONE (07:17)
--- NOTE | 2021-10-05 07:26 | ER ---
Nurse's Notes [facility] Name: Gabo Chow Sr Age: 71 yrs Sex: Male : 1950 Arrival Date: 10/05/2021 Time: 05:46 Bed 7 Private MD: Diagnosis: COPD/ Chronic obstructive pulmonary disease with (acute) exacerbation;Subsequent non-ST elevation (NSTEMI) myocardial infarction Presentation: 10/05 05:48 Chief complaint: EMS states: pt just got over pneumonia 3 weeks ago and was sent home kd3 on furosemide. pt ran out of furosemide a few days ago and started having increased difficult breathing. pt had o2 sat of 85 RA on scene. pt was given in line neb treatment through CPAP en route. 8 minutes prior to arrival. pt asked to have CPAP removed because he was feeling better. now sating 92 on RA. Coronavirus screen: Vaccine status: Patient reports being unvaccinated. Ebola Screen: No symptoms or risks identified at this time. Initial Sepsis Screen: Does the patient meet any 2 criteria?. Risk Assessment: Do you want to hurt yourself or someone else? Patient reports no desire to harm self or others. Onset of symptoms was October 05, 2021. 05:48 Method Of Arrival: EMS: [facility] kd3 05:48 Acuity: ALLI 3 kd3 05:55 Initial Sepsis Screen: Does the patient have a suspected source of infection? No. kd3 Patient's initial sepsis screen is negative. Triage Assessment: 05:53 General: Appears in no apparent distress. Behavior is calm, cooperative. Pain: Denies kd3 pain. Historical: - Allergies: 05:53 No Known Allergies; kd3 - PMHx: 05:53 CHF; Hypertension; Myocardial infarction; kd3 - Immunization history:: Adult Immunizations up to date, Client reports having NOT received the Covid vaccine. - Social history:: Smoking status: unknown. Screenin:55 Abuse screen: Denies threats or abuse. Denies injuries from another. Nutritional kd3 screening: No deficits noted. Tuberculosis screening: No symptoms or risk factors identified. Fall Risk IV access (20 points). Assessment: 05:45 Respiratory: Respiratory effort is even, labored. as6 06:53 Respiratory: Respiratory effort is even, unlabored. as6 Vital Signs: 05:48 BP 162 / 87; Pulse 105; Resp 21; Temp 98.8; Pulse Ox 99% ; Weight 74.84 kg; Height 6 kd3 ft. (182.88 cm); Pain 0/10; 06:01 Pulse 98; Resp 19; Pulse Ox 100% on 3 lpm NC; kd3 06:52 BP 131 / 69; Pulse 68; Resp 15 S; Pulse Ox 100% on CPAP; as6 07:15 BP 120 / 65; Pulse 75; Resp 16 S; Pulse Ox 100% on BiPAP; Pain 0/10; jg9 09:00 BP 123 / 61; Pulse 80; Resp 20 S; Pulse Ox 98% on BiPAP; Pain 0/10; jg9 05:48 Body Mass Index 22.38 (74.84 kg, 182.88 cm) kd3 ED Course: 05:46 Patient arrived in ED. oe 05:47 Billy Solares, RN is Primary Nurse. as6 05:53 Triage completed. kd3 05:53 Arm band placed on right wrist. kd3 05:55 Patient has correct armband on for positive identification. Placed in gown. Bed in low kd3 position. Call light in reach. Side rails up X 1. 05:55 Placed in gown. Bed in low position. Call light in reach. Side rails up X2. Cardiac as6 monitor on. Pulse ox on. NIBP on. 05:55 Maintain EMS IV. Dressing intact. Good blood return noted. Site clean \T\ dry. Gauge \T\ as 6 site: 20g LAC. 06:00 Amado Styles MD is Attending Physician. 7 06:08 XRAY Chest (1 view) In Process Unspecified. EDMS 07:24 Joesph Leslie MD is Hospitalizing Provider. 7 08:19 Primary Nurse role handed off by Billy Solares, DERIC bd 09:08 No provider procedures requiring assistance completed. jg9 09:09 Patient admitted, IV remains in place. jg9 Administered Medications: 06:46 Drug: SOLU-Medrol (methylPrednisoLONE) 125 mg Route: IVP; Site: left antecubital; as6 09:07 Follow up: Response: No adverse reaction jg9 06:46 Drug: Albuterol - atroVENT (ipratropium) (3:1) (2.5 mg - 0.5 mg) 3 ml Route: Nebulizer; as6 07:34 Follow up: Response: No adverse reaction j9 07:32 Drug: Aspirin Chewable Tablet 162 mg Route: PO; jg9 09:07 Follow up: Response: No adverse reaction j9 07:34 Drug: LevaQUIN (levofloxacin) 500 mg Volume: 100 ml; Route: IVPB; Infused Over: 60 jg9 mins; Site: left antecubital; 08:45 Follow up: IV Status: Completed infusion; IV Intake: 500ml j9 08:17 Drug: Lovenox (enoxaparin) 1 mg/kg Route: Sub-Q; Site: right lower abdomen; ww 08:59 Follow up: Response: No adverse reaction j9 Intake: 08:45 IV: 500ml; Total: 500ml. jg9 Outcome: 07:25 Decision to Hospitalize by Provider. [facility] 09:08 Condition: stable j9 09:59 Admitted to Med/surg accompanied by nurse, via wheelchair, with oxygen, Report called 9 to DERIC Escalante 09:59 Patient left the ED. j9 Signatures: Dispatcher [employer] EDMS Dedra Adorno Orlando oe Holmes, Maurice, MD MD mh7 Billy Solares RN RN as6 Nadine Adames RN RN kd3 Stella Salmeron RN RN jg9 Lily Canada RN RN ww
--- NOTE | 2021-10-05 07:26 | EDPHYS ---
Physician Documentation [facility] Name: Gabo Chow Sr Age: 71 yrs Sex: Male : 1950 Arrival Date: 10/05/2021 Time: 05:46 Bed 7 Private MD: ED Physician Amado Styles HPI: 10/05 06:08 This 71 yrs old Male presents to ER via EMS with complaints of Shortness of breath. [facility] 06:08 The patient has shortness of breath at rest, with light activity. Onset: The [facility] symptoms/episode began/occurred 2 day(s) ago. Duration: The symptoms are continuous, and are steadily getting worse. The patient's shortness of breath is aggravated by coughing, exertion, is alleviated by nothing. 06:08 Associated signs and symptoms: Pertinent negatives: chest pain, non-productive cough, 7 diaphoresis, dizziness, fever, hemoptysis, loss of consciousness, nausea, numbness in extremities, visual changes, vomiting. 06:08 Severity of symptoms: At their worst the symptoms were moderate last night, in the [facility] emergency department the symptoms are unchanged. The patient has experienced similar episodes in the past, multiple times. Historical: - Allergies: 05:53 No Known Allergies; kd3 - PMHx: 05:53 CHF; Hypertension; Myocardial infarction; kd3 - Immunization history:: Adult Immunizations up to date, Client reports having NOT received the Covid vaccine. - Social history:: Smoking status: unknown. ROS: 06:08 Constitutional: Negative for fever, chills, and weight loss, Eyes: Negative for injury, mh7 pain, redness, and discharge, ENT: Negative for injury, pain, and discharge, Neck: Negative for injury, pain, and swelling, Cardiovascular: Negative for chest pain, palpitations, and edema, Abdomen/GI: Negative for abdominal pain, nausea, vomiting, diarrhea, and constipation, Back: Negative for injury and pain, : Negative for injury, bleeding, discharge, and swelling, MS/Extremity: Negative for injury and deformity, Skin: Negative for injury, rash, and discoloration, Neuro: Negative for headache, weakness, numbness, tingling, and seizure, Psych: Negative for depression, anxiety, suicide ideation, homicidal ideation, and hallucinations, Allergy/Immunology: Negative for hives, rash, and allergies, Endocrine: Negative for neck swelling, polydipsia, polyuria, polyphagia, and marked weight changes, Hematologic/Lymphatic: Negative for swollen nodes, abnormal bleeding, and unusual bruising. Exam: 06:08 Head/Face: Normocephalic, atraumatic. Eyes: Pupils equal round and reactive to light, mh7 extra-ocular motions intact. Lids and lashes normal. Conjunctiva and sclera are non-icteric and not injected. Cornea within normal limits. Periorbital areas with no swelling, redness, or edema. Neck: Trachea midline, no thyromegaly or masses palpated, and no cervical lymphadenopathy. Supple, full range of motion without nuchal rigidity, or vertebral point tenderness. No Meningismus. Chest/axilla: Normal chest wall appearance and motion. Nontender with no deformity. No lesions are appreciated. Cardiovascular: Regular rate and rhythm with a normal S1 and S2. No gallops, murmurs, or rubs. Normal PMI, no JVD. No pulse deficits. 06:08 Abdomen/GI: Soft, non-tender, with normal bowel sounds. No distension or tympany. No guarding or rebound. No evidence of tenderness throughout. Back: No spinal tenderness. No costovertebral tenderness. Full range of motion. Skin: Warm, dry with normal turgor. Normal color with no rashes, no lesions, and no evidence of cellulitis. MS/ Extremity: Pulses equal, no cyanosis. Neurovascular intact. Full, normal range of motion. Neuro: Awake and alert, GCS 15, oriented to person, place, time, and situation. Cranial nerves II-XII grossly intact. Motor strength 5/5 in all extremities. Sensory grossly intact. Cerebellar exam normal. Normal gait. Psych: Awake, alert, with orientation to person, place and time. Behavior, mood, and affect are within normal limits. 06:08 Constitutional: The patient appears alert, awake, in obvious distress, mildly distressed. 06:08 Respiratory: mild respiratory distress is noted, Respirations: prolonged exhalation, that is moderate, Breath sounds: rhonchi, that are mild, are scattered, wheezing: expiratory that is moderate, is heard diffusely, Respiratory rate: 20 Vital Signs: 05:48 BP 162 / 87; Pulse 105; Resp 21; Temp 98.8; Pulse Ox 99% ; Weight 74.84 kg; Height 6 kd3 ft. (182.88 cm); Pain 0/10; 06:01 Pulse 98; Resp 19; Pulse Ox 100% on 3 lpm NC; kd3 06:52 BP 131 / 69; Pulse 68; Resp 15 S; Pulse Ox 100% on CPAP; as6 07:15 BP 120 / 65; Pulse 75; Resp 16 S; Pulse Ox 100% on BiPAP; Pain 0/10; jg9 09:00 BP 123 / 61; Pulse 80; Resp 20 S; Pulse Ox 98% on BiPAP; Pain 0/10; jg9 05:48 Body Mass Index 22.38 (74.84 kg, 182.88 cm) kd3 MDM: 07:23 Differential diagnosis: Anemia Anxiety Reaction asthma, Bronchitis CHF exacerbation, mh7 Chronic Obstructive Pulmonary Disease Myocardial Infarction pneumonia, Pneumothorax Psychogenic pulmonary edema, reactive airway disease. Data reviewed: vital signs, nurses notes, EMS record, old medical records, lab test result(s), cardiac enzymes, CBC, electrolytes, EKG, radiologic studies, plain films. Data interpreted: Pulse oximetry: on BiPAP is 100 %. Interpretation: acceptable. Counseling: I had a detailed discussion with the patient and/or guardian regarding: the historical points, exam findings, and any diagnostic results supporting the discharge/admit diagnosis, lab results, radiology results, the need for further work-up and treatment in the hospital. Response to treatment: the patient's symptoms have markedly improved after treatment. 07:25 Patient medically screened. [facility] 10/05 05:48 Order name: Basic Metabolic Panel; Complete Time: 06:54 as10/05 05:48 Order name: CBC with Diff; Complete Time: 06:13 10/05 05:48 Order name: Troponin HS; Complete Time: 06:54 10/05 06:06 Order name: Arterial Blood Gas; Complete Time: 06:13 [facility] 10/05 06:13 Order name: Blood Culture Adult (2) [facility] 10/05 06:13 Order name: COVID-19/FLU A+B (Document "Date of Onset" if Symptomatic) [facility] 10/05 07:37 Order name: Basic Metabolic Panel EDPR 10/05 07:37 Order name: Basic Metabolic Panel [facility] 10/05 07:37 Order name: CBC with Automated Diff [facility] 10/05 07:37 Order name: CBC with Automated Diff EDMS 10/05 07:37 Order name: CKMB Creatine Kinase MB EDMS 10/05 07:37 Order name: CKMB Creatine Kinase MB EDMS 10/05 07:37 Order name: CKMB Creatine Kinase MB EDMS 10/05 07:37 Order name: CKMB Creatine Kinase MB EDMS 10/05 05:48 Order name: XRAY Chest (1 view); Complete Time: 07:16 10/05 05:48 Order name: EKG; Complete Time: 05:48 10/05 07:37 Order name: CONS Physician Consult EDMS 10/05 07:37 Order name: Heart Healthy EDMS 10/05 07:37 Order name: EKG Electrocardiogram EDMS 10/05 07:37 Order name: EKG Electrocardiogram EDMS 10/05 07:37 Order name: EKG Electrocardiogram EDMS 10/05 07:37 Order name: Lipid Profile EDMS 10/05 07:37 Order name: Lipid Profile EDMS 10/05 07:37 Order name: NT PRO-BNP EDMS 10/05 07:37 Order name: NT PRO-BNP EDMS 10/05 05:48 Order name: Cardiac monitoring; Complete Time: 05:48 10/05 05:48 Order name: EKG - Nurse/Tech; Complete Time: 05:52 10/05 05:48 Order name: IV Saline Lock; Complete Time: 05:52 10/05 05:48 Order name: Labs collected and sent; Complete Time: 05:52 10/05 05:48 Order name: O2 Per Protocol; Complete Time: 05:48 10/05 05:48 Order name: O2 Sat Monitoring; Complete Time: 05:48 10/05 07:37 Order name: EKG Electrocardiogram EDMS 10/05 07:37 Order name: EKG Electrocardiogram EDMS 10/05 07:37 Order name: EKG Electrocardiogram EDPR Administered Medications: 06:46 Drug: SOLU-Medrol (methylPrednisoLONE) 125 mg Route: IVP; Site: left antecubital; as6 09:07 Follow up: Response: No adverse reaction jg9 06:46 Drug: Albuterol - atroVENT (ipratropium) (3:1) (2.5 mg - 0.5 mg) 3 ml Route: Nebulizer; as6 07:34 Follow up: Response: No adverse reaction jg9 07:32 Drug: Aspirin Chewable Tablet 162 mg Route: PO; jg9 09:07 Follow up: Response: No adverse reaction jg9 07:34 Drug: LevaQUIN (levofloxacin) 500 mg Volume: 100 ml; Route: IVPB; Infused Over: 60 jg9 mins; Site: left antecubital; 08:45 Follow up: IV Status: Completed infusion; IV Intake: 500ml jg9 08:17 Drug: Lovenox (enoxaparin) 1 mg/kg Route: Sub-Q; Site: right lower abdomen; ww 08:59 Follow up: Response: No adverse reaction jg9 Disposition Summary: 10/05/21 07:25 Hospitalization Ordered Hospitalization Status: Inpatient Admission [facility] Provider: Joesph Leslie Location: Telemetry/MedSurg (Inpatient) [facility] Condition: Fair [facility] Problem: an acute exacerbation [facility] Symptoms: have improved [facility] Bed/Room Type: Standard [facility] Room Assignment: 220(10/05/21 08:36) dw Diagnosis - COPD/ Chronic obstructive pulmonary disease with (acute) exacerbation [facility] - Subsequent non-ST elevation (NSTEMI) myocardial infarction [facility] Forms: - Medication Reconciliation Form [facility] - SBAR form [facility] Signatures: Dispatcher [employer] Gabriela Mcmahon RN RN dw Amado Styles MD MD mh7 Billy Solares RN RN as6 Nadine Adames RN RN kd3 Stella Salmeron RN RN jg9 Lily Canada RN RN ww Corrections: (The following items were deleted from the chart) 08:36 07:25 [facility] dw
[2021-10-05] MEDS ORDERED: MORPHINE 4 MG/ML SYR IV PRN (07:28)
[2021-10-05] MEDS ORDERED: ALBUTEROL 2.5 MG/3 ML NEB SOL NEB PRN (07:28)
[2021-10-05] MEDS ORDERED: ACETAMINOPHEN 325 MG TABLET PO PRN (07:28)
[2021-10-05] MEDS ORDERED: IPRATROPIUM BROM 0.5MG/2.5ML NEB PRN (07:28)
[2021-10-05] MEDS ORDERED: ONDANSETRON 4 MG/2 ML VIAL IV PRN (07:28)
[2021-10-05] MEDS ORDERED: ENOXAPARIN 80 MG/0.8 ML SQ ONE (07:47)
[2021-10-05 08:07] LABS: SARS-COV-2 RT PCR NEGATIVE (NEGATIVE)
[2021-10-05] MEDS: METHYLPREDNISOLONE 40 MG INJ IV SCH ×2 (09:00→17:28)
[2021-10-05] MEDS: ASPIRIN EC 81 MG TAB PO SCH (09:00)
[2021-10-05 09:15] LABS: CKMB Creatine Kinase MB 7.9 ng/mL (1.0-3.6)
--- NOTE | 2021-10-05 09:36 | EKG ---
Test Date: 2021-10-05 Test Time: 05:55:58 Steelworker: WILLIAM MEASUREMENT RESULTS: Intervals: Rate: 102 NH: 142 QRSD: 128 QT: 368 QTc: 479 Wheeler: P: 87 NH: 142 QRS: 12 T: 140 INTERPRETIVE STATEMENTS: Sinus tachycardia with fusion complexes Left ventricular hypertrophy with QRS widening Cannot rule out Septal infarct, age undetermined T wave abnormality, consider inferolateral ischemia Abnormal ECG Compared to ECG 08/19/2021 00:01:04 Fusion complex(es) now present Left ventricular hypertrophy now present Sinus rhythm no longer present Myocardial infarct finding still present T-wave abnormality still present Possible ischemia still present Electronically Signed On 10-05-21 09:35:26 CDT by Irvin Turner
--- NOTE | 2021-10-05 09:46 | P.HP ---
Certification for Inpatient Patient admitted to: Inpatient With expected LOS: >2 Midnights Patient will require the following post-hospital care: None Practitioner: I am a practitioner with admitting privileges, knowledge of patient current condition, hospital course, and medical plan of care. Services: Services provided to patient in accordance with Admission requirements found in Title 42 Section 412.3 of the Code of Federal Regulations Patient History Date of Service: 10/05/21 Primary Care Provider: Anuj Reason for admission: Copd exacerbation History of Present Illness: Patient is an office patient of [facility]. He has a history of copd. Continues to smoke. He has been wheezing for the past few days. The patient came in as he was worsening. Found to have a troponin elevation. Was admitted. Is currently resting comfortably on nasal oxygen. He denies any other fumes or allergy symptoms. Does admit to smoking. Allergies No Known Allergies Allergy (Verified 05/20/12 16:57) Home Medications: Atorvastatin Calcium [Lipitor] 40 mg PO BEDTIME #30 tab 07/26/18 Clopidogrel Bisulfate [Plavix] 75 mg PO DAILY #30 tablet 07/26/18 Furosemide [Lasix] 40 mg PO DAILY #7 tablet 07/26/18 Metoprolol Tartrate [Lopressor*] 25 mg PO BID #60 tab 07/26/18 lisinopriL [Prinivil*] 10 mg PO DAILY #30 tab 07/26/18 Levofloxacin [Levaquin] 500 mg PO DAILY 7 Days #7 tablet 08/21/21 Prednisone [Sterapred Ds] 10 mg PO BID 9 Days #21 tab.ds.pk 08/21/21 Albuterol Neb [Proventil 0.083% Neb Soln] 2.5 mg NEB [id number] PRN #60 amp 08/23/21 Amlodipine [Norvasc*] 5 mg PO DAILY #30 tab 08/23/21 Calcitrol [Rocaltrol*] 0.5 mcg PO DAILY #30 cap 08/23/21 Cholecalciferol (Vitamin D3) [Vitamin D 5,000 IU Cap*] 5,000 unit PO DAILY #30 cap 08/23/21 Ipratropium Neb [Atrovent*] 0.5 mg NEB [id number] PRN #60 amp 08/23/21 Nebulizer Accessories [Aeroneb Go] 1 each MC DAILY #1 each 08/23/21 Nebulizer [Aeroneb Go Nebulizer] 1 each MC DAILY #1 each 08/23/21 Nicotine [Nicoderm*] 21 mg TD DAILY #30 patch.td24 08/23/21 Pantoprazole [Protonix Tab*] 40 mg PO DAILYAC #30 tab 08/23/21 - Past Medical/Surgical History Diabetic: No -: HTN -: COPD - Social History Alcohol use: No CD- Drugs: No Caffeine use: Yes Review of Systems 10-point ROS is otherwise unremarkable Respiratory: Shortness of Breath Physical Examination - Physical Exam General: Alert, In no apparent distress HEENT: Atraumatic, PERRLA, Mucous membr. moist/pink, EOMI, Sclerae nonicteric Neck: Supple, 2+ carotid pulse no bruit, No LAD, Without JVD or thyroid abnormality Respiratory: Diminished, Expiratory wheezes (best heard in the basilar owusu. ) Cardiovascular: Regular rate/rhythm, Normal S1 S2 Gastrointestinal: Normal bowel sounds, No tenderness Musculoskeletal: No tenderness Integumentary: No rashes Neurological: Normal gait, Normal speech, Normal strength at 5/5 x4 extr, Normal tone, Normal affect Lymphatics: No axilla or inguinal lymphadenopathy - Studies Laboratory Data (last 24 hrs) 10/05/21 05:51: WBC 14.9 H, Hgb 16.4, Hct 49.4 H, Plt Count 238 10/05/21 05:51: Sodium 139, Potassium 4.9, BUN 41 H, Creatinine 2.27 H, Glucose 136 H Assessment and Plan - Problems (Diagnosis) (1) Acute bronchitis with COPD Current Visit: No Status: Acute Plan: will admit him start him on fluids and steroids. (2) CHF (congestive heart failure) Current Visit: No Status: Acute Plan: currently stable. His creatine is a little above his baseline of 1.8-2.0 Will hold the lasix. Start him on gentle fluids. Stop tomorrow if his creatine has improved Qualifiers: Heart failure type: systolic (3) HTN (hypertension) Current Visit: No Status: Acute Plan: continue lisinopril and amlodipine. Restart the metoprolol as well Qualifiers: Hypertension type: primary hypertension (4) Mixed hyperlipidemia Current Visit: No Status: Chronic Plan: continue statin (5) Nicotine dependence Current Visit: No Status: Chronic Plan: start a nicotine patch Qualifiers: Nicotine product type: cigarettes Plan to discharge in: 48 Hours - Advance Directives Does patient have a Living Will: No Does patient have a Durable POA for Healthcare: No - Code Status/Comfort Care Code Status Assessed: Yes Code Status: Full Code Physician Review: Patient Assessed, Agree with Above Assessment and Plan Critical Care: No Time Spent Managing Pts Care (In Minutes): 40
[2021-10-05 11:19] VITALS: BMI 22.4
[2021-10-05] MEDS: NA CHLORIDE 0.9% 1,000 ML IV SCH (11:59)
[2021-10-05] MEDS: CLOPIDOGREL 75 MG TABLET PO SCH (12:00)
[2021-10-05] MEDS: CALCITROL 0.25 MCG CAP PO SCH (12:00)
[2021-10-05] MEDS: METOPROLOL TAR 25 MG TAB PO SCH ×2 (12:00→20:46)
[2021-10-05] MEDS: VITAMIN D 5,000 UNIT CAP PO SCH (12:00)
[2021-10-05] MEDS: NICOTINE 21 MG/PAT TD SCH (12:01)
[2021-10-05] MEDS: AMLODIPINE 5 MG TAB PO SCH (12:01)
[2021-10-05] MEDS: lisinopriL 10 MG TAB PO SCH (12:03)
--- NOTE | 2021-10-05 14:47 | CON ---
Date of Consultation: 10/05/[address] Leslie with COPD exacerbation, elevated troponin. History Of Present Illness: Mr. Chow is 71. I saw him on 10/05/2021. He came in with shortness of breath. Denied PND, orthopnea, pedal edema, palpitations, or syncope. Denied any chest pain. Denie d any nausea, vomiting, diaphoresis. Denied any fever or chills. His past medical history includes chronic diastolic congestive heart failure, CAD, status post stent many years ago, COPD, and hyperten oscar. 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 Past Medical History: As stated above. Allergies: NONE. Review of Systems: Negative. Social History: Positive for history of tobacco. No alcohol. Family History: Positive for heart disease in his brother. Medications: Include inhalers, Norvasc, Lipitor, Plavix, Lasix, lisinopril, metoprolol, prednisone, and Protonix. Physical Examination: Vital Signs: Stable. He was afebrile, sinus rhythm. HEENT: Negative. Neck: Supple without any bruit, lymphadenopathy, JVD, or thyromegaly. Chest: Revealed expiratory wheezing. No rales. Cardiac: Revealed a regular rhythm and rate. No murmurs, gallops, or rubs. Abdomen: Benign. Extremities: Revealed no clubbing, cyanosis, or edema. Diagnostic Data: In 2019, echocardiogram was normal except for aortic sclerosis. No stenosis. His pO2 was 130, pCO2 of 61, pH of 7.27. Troponin is 606. Creatinine is 2.7. White count is 14.9 thous and. Impression And Plan: 1.Shortness of breath secondary to chronic obstructive pulmonary disease exacerbation. Echocardiogr am is pending. 2.Chronic diastolic congestive heart failure. 3.Hypertension. 4.Coronary artery disease, status post stents. 5.Dyslipidemia. 6.Gastroesophageal reflux disease. 7.Significant renal insufficiency, stage III. 8.Elevated troponin secondary to hypoxia, acidosis, and elevated creatinine. Mr. Chow does have an echocardiogram today, which I agree with. He is certainly not a candidate for heart catheterization at this point without any chest pain with his elevated creatinine. I suggested an outpatient Lexisca n and then we will decide what to do from a coronary standpoint then. I will discuss the case furthe r with Dr. Leslie. SHELTON/ARTURO Voice ID: [id number] Report ID: [id number]
[2021-10-05] MEDS: ATORVASTATIN 40 MG TAB PO SCH (20:47)
[2021-10-05] MEDS: ALBUTEROL 2.5 MG/3 ML NEB SOL NEB PRN (20:55)
[2021-10-06] MEDS: METHYLPREDNISOLONE 40 MG INJ IV SCH ×3 (00:45→16:51)
[2021-10-06] MEDS: NA CHLORIDE 0.9% 1,000 ML IV SCH ×3 (00:45→21:00)
[2021-10-06] MEDS: PANTOPRAZOLE 40MG TABLET PO SCH (05:41)
[2021-10-06] MEDS ORDERED: ENOXAPARIN 80 MG/0.8 ML SQ SCH (06:00)
[2021-10-06 06:10] LABS: Absolute Lymphocytes (CBC) 1.4 K/uL (0.7-4.9); Hematocrit 39.8 % (39.6-49.0); Lymphocytes % 6.9 % (15.3-44.8); MPV 8.5 fL (7.6-11.3); RBC Red Blood Cell Count 4.45 M/uL (4.33-5.43)
[2021-10-06 06:23] LABS: Potassium 4.9 mmol/L (3.5-5.1)
--- NOTE | 2021-10-06 07:06 | ECHO ---
HEIGHT: 6 ft 0 in WEIGHT: 164 lb 15.903 oz DATE OF STUDY: 10/05/[address]: Irvin Turner MD 2-DIMENSIONAL: YES M.MODE: YES DOPPLER: YES COLOR FLOW: YES TDS: YES PORTABLE: NO DEFINITY: NO BUBBLE STUDY: NO DIAGNOSIS: NSTEMI CARDIAC HISTORY: CATHERIZATION: SURGERY: PROSTHETIC VALVE: PACEMAKER: MEASUREMENTS (cm) DIASTOLIC (NORMALS) SYSTOLIC (NORMALS) IVSd 1.2 (0.6-1.2) LA Diam (1.9-4.0) LVEF 42% LVIDd 5.7 (3.5-5.7) LVIDs 4.5 (2.0-3.5) %FS 21% LVPWd 1.3 (0.6-1.2) Ao Diam 2.7 (2.0-3.7) 2 DIMENSIONAL ASSESSMENT: RIGHT ATRIUM: NORMAL LEFT ATRIUM: DILATED RIGHT VENTRICLE: NORMAL LEFT VENTRICLE: NORMAL TRICUSPID VALVE: NORMAL MITRAL VALVE: NORMAL PULMONIC VALVE: NORMAL AORTIC VALVE: NORMAL PERICARDIAL EFFUSION: NONE AORTIC ROOT: NORMAL LEFT VENTRICULAR WALL MOTION: MILD GLOBAL HYPOKINESIS. DOPPLER/COLOR FLOW: MILD TRICUSPID REGURGITATION. COMMENTS: MILD GLOBAL HYPOKINESIS. MILD TRICUSPID REGURGITATION. NO EFFUSION. TECHNOLOGIST: MIHIR RUSSO
[2021-10-06] MEDS ORDERED: IPRATROPIUM BROM 0.5MG/2.5ML ONE (08:02)
[2021-10-06] MEDS ORDERED: ALBUTEROL 2.5 MG/3 ML NEB SOL ONE (08:02)
[2021-10-06] MEDS: ASPIRIN EC 81 MG TAB PO SCH (08:09)
[2021-10-06] MEDS: CALCITROL 0.25 MCG CAP PO SCH (08:10)
[2021-10-06] MEDS: METOPROLOL TAR 25 MG TAB PO SCH ×2 (08:10→20:39)
[2021-10-06] MEDS: CLOPIDOGREL 75 MG TABLET PO SCH (08:10)
[2021-10-06] MEDS: AMLODIPINE 5 MG TAB PO SCH (08:11)
[2021-10-06] MEDS: lisinopriL 10 MG TAB PO SCH (08:11)
[2021-10-06] MEDS: NICOTINE 21 MG/PAT TD SCH (08:11)
[2021-10-06] MEDS: VITAMIN D 5,000 UNIT CAP PO SCH (08:11)
[2021-10-06] MEDS: ALBUTEROL 2.5 MG/3 ML NEB SOL NEB PRN ×2 (08:36→22:20)
[2021-10-06 08:55] LABS: Platelet Estimate ADEQ; White Blood Cell Scan OK (OK)
[2021-10-06 08:56] LABS: Blood Morphology Comment NOT SEEN (NOT SEEN)
[2021-10-06] MEDS ORDERED: AMLODIPINE 5 MG TAB PO SCH ×2 (09:00)
[2021-10-06] MEDS ORDERED: CALCITROL 0.25 MCG CAP PO SCH (09:00)
[2021-10-06] MEDS ORDERED: NICOTINE 21 MG/PAT TD SCH (09:00)
[2021-10-06] MEDS ORDERED: CLOPIDOGREL 75 MG TABLET PO SCH (09:00)
[2021-10-06] MEDS ORDERED: VITAMIN D 5,000 UNIT CAP PO SCH (09:00)
[2021-10-06] MEDS ORDERED: lisinopriL 10 MG TAB PO SCH (09:00)
--- NOTE | 2021-10-06 09:23 | P.PN ---
Subjective Date of Service: 10/06/21 Primary Care Provider: Anuj Chief Complaint: Copd exacerbation Subjective: Improving Review of Systems 10-point ROS is otherwise unremarkable Respiratory: SOB with Excertion Physical Examination - Vital Signs Temperature: 98.0 F Blood Pressure: 111/50 Pulse: 73 Respirations: 20 Pulse Ox (%): 97 - Physical Exam General: Alert, In no apparent distress HEENT: Atraumatic, PERRLA, EOMI Neck: Supple, JVD not distended Respiratory: Normal air movement, Expiratory wheezes Cardiovascular: Regular rate/rhythm, Normal S1 S2 Gastrointestinal: Normal bowel sounds, No tenderness Musculoskeletal: No tenderness Integumentary: No rashes Neurological: Normal speech, Normal tone, Normal affect Lymphatics: No axilla or inguinal lymphadenopathy Assessment And Plan - Current Problems (Diagnosis) (1) Acute bronchitis with COPD Current Visit: No Status: Acute Plan: will admit him start him on fluids and steroids.Patient is improving. However still wheezing. Would keep him for another day as he has a high chance of readmission if we discharge him today (2) CHF (congestive heart failure) Current Visit: No Status: Acute Plan: currently stable. His creatine is a little above his baseline of 1.8-2.0 Will hold the lasix. Start him on gentle fluids. Stop tomorrow if his creatine has improved Qualifiers: Heart failure type: systolic (3) HTN (hypertension) Current Visit: No Status: Acute Plan: continue lisinopril and amlodipine. Restart the metoprolol as well Qualifiers: Hypertension type: primary hypertension (4) Mixed hyperlipidemia Current Visit: No Status: Chronic Plan: continue statin (5) Nicotine dependence Current Visit: No Status: Chronic Plan: start a nicotine patch Qualifiers: Nicotine product type: cigarettes Discharge Plan: Home Plan to discharge in: 24 Hours - Code Status/Comfort Care Code Status Assessed: No Physician Review: Patient Assessed, Agree with Above Assessment and Plan Critical Care: No Time Spent Managing PTS Care (In Minutes): 20
--- NOTE | 2021-10-06 10:03 | PN ---
The patient is in the hospital for [id number] systolic congestive heart failure. The patient i s being seen for followup today. He is feeling better. He is breathing better. His vital signs are stable. He is afebrile. His chest is clear. Echocardiogram which was done yesterday showed mild g lobal hypokinesis with an ejection fraction 41%. His creatinine had gone up with diuresis to 2.59. He is on appropriate therapy. He will need an outpatient Lexiscan and a followup soon, but he can go home whenever it is okay with Dr. Leslie. SHELTON/ARTURO Voice ID: [id number] Report ID: [id number]
[2021-10-06] MEDS ORDERED: ENOXAPARIN 30 MG/0.3 ML SQ SCH (17:00)
--- NOTE | 2021-10-06 18:16 | EKG ---
Test Date: 2021-10-06 Test Time: 07:36:18 R D Manager: LEORA MEASUREMENT RESULTS: Intervals: Rate: 60 HI: 144 QRSD: 132 QT: 458 QTc: 458 [place]: P: 85 HI: 144 QRS: -7 T: 235 INTERPRETIVE STATEMENTS: Sinus rhythm with occasional premature ventricular complexes Nonspecific intraventricular block Cannot rule out Septal infarct, age undetermined Possible Inferior infarct, age undetermined T wave abnormality, consider anterolateral ischemia Abnormal ECG Compared to ECG 10/05/2021 05:55:58 Ventricular premature complex(es) now present Sinus tachycardia no longer present Fusion complex(es) no longer present Left ventricular hypertrophy no longer present Myocardial infarct finding still present T-wave abnormality still present Possible ischemia still present Electronically Signed On 10-06-21 18:15:15 CDT by Irvin Turner
[2021-10-06] MEDS: ATORVASTATIN 40 MG TAB PO SCH (20:39)
[2021-10-07 00:29] VITALS: O2SAT 96
[2021-10-07] MEDS: METHYLPREDNISOLONE 40 MG INJ IV SCH ×2 (00:44→08:26)
[2021-10-07] MEDS: PANTOPRAZOLE 40MG TABLET PO SCH (05:33)
[2021-10-07] MEDS: CALCITROL 0.25 MCG CAP PO SCH (08:22)
[2021-10-07] MEDS: CLOPIDOGREL 75 MG TABLET PO SCH (08:22)
[2021-10-07] MEDS: ASPIRIN EC 81 MG TAB PO SCH (08:22)
[2021-10-07] MEDS: VITAMIN D 5,000 UNIT CAP PO SCH (08:23)
[2021-10-07] MEDS: NICOTINE 21 MG/PAT TD SCH (08:23)
[2021-10-07] MEDS: METOPROLOL TAR 25 MG TAB PO SCH (08:25)
[2021-10-07] MEDS: AMLODIPINE 5 MG TAB PO SCH (08:25)
[2021-10-07] MEDS: lisinopriL 10 MG TAB PO SCH (08:26)
[2021-10-07] MEDS: NA CHLORIDE 0.9% 1,000 ML IV SCH (10:26)
[2021-10-07] MEDS ORDERED: HYDRALAZINE HCL 20 MG/ML VIAL IV PRN (11:44)
--- NOTE | 2021-10-07 11:49 | P.DS ---
Admission Date: 10/05/21 Discharge Date: 10/07/21 Primary Care Provider: Anuj Disposition: ROUTINE DISCHARGE Discharge Condition: GOOD Reason for Admission: Copd exacerbation - Problems (1) Acute bronchitis with COPD Current Visit: No Status: Acute (2) CHF (congestive heart failure) Current Visit: No Status: Acute Qualifiers: Heart failure type: systolic (3) HTN (hypertension) Current Visit: No Status: Acute Qualifiers: Hypertension type: primary hypertension (4) Mixed hyperlipidemia Current Visit: No Status: Chronic (5) Nicotine dependence Current Visit: No Status: Chronic Qualifiers: Nicotine product type: cigarettes Brief History of Present Illness: 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 He has a history of copd. Continues to smoke. He has been wheezing for the past few days. The patient came in as he was worsening. Found to have a troponin elevation. Was admitted. Is currently resting comfortably on nasal oxygen. He denies any other fumes or allergy symptoms. Does admit to smoking. Hospital Course: Patient was admitted for copd exacerbation. He is doing very well. Off oxygen and talking normal. Will send him home on tapering prednisone and a nicotine patch. His picked up a script for a nebulizer kit at the office yesterday. He had a bump in his troponins. the patient can follow up with us. His states Dr. Turner(who saw him in the hospital)is not in network. Will find him a cooker operator for an outpatient stress test when he follows up with us. Vital Signs/Physical Exam: Temp Pulse Resp BP Pulse Ox 97.2 F 61 18 180/75 H 93 10/07/21 08:00 10/07/21 08:26 10/07/21 08:00 10/07/21 08:26 10/07/21 04:00 General: Alert, In no apparent distress HEENT: Atraumatic, PERRLA, EOMI Neck: Supple, JVD not distended Respiratory: Clear to auscultation bilaterally, Normal air movement Cardiovascular: Regular rate/rhythm, Normal S1 S2 Gastrointestinal: Normal bowel sounds, No tenderness Musculoskeletal: No tenderness Integumentary: No rashes Neurological: Normal speech, Normal tone, Normal affect Lymphatics: No axilla or inguinal lymphadenopathy Laboratory Data at Discharge: WBC 19.7 K/uL (4.3-10.9) H D 10/06/21 05:45 Hgb 13.3 g/dL (13.6-17.9) L D 10/06/21 05:45 Hct 39.8 % (39.6-49.0) D 10/06/21 05:45 Plt Count 194 K/uL (152-406) 10/06/21 05:45 Sodium 134 mmol/L (136-145) L 10/06/21 05:45 Potassium 4.9 mmol/L (3.5-5.1) 10/06/21 05:45 BUN 59 mg/dL (7-18) H 10/06/21 05:45 Creatinine 2.59 mg/dL (0.55-1.3) H 10/06/21 05:45 Glucose 171 mg/dL (74-106) H 10/06/21 05:45 Triglycerides 72 mg/dL (<150) 10/05/21 08:28 Cholesterol 204 mg/dL (<200) H 10/05/21 08:28 HDL Cholesterol 47 mg/dL (40-60) 10/05/21 08:28 Cholesterol/HDL Ratio 4.34 10/05/21 08:28 Home Medications: Atorvastatin Calcium [Lipitor] 40 mg PO BEDTIME #30 tab 07/26/18 Clopidogrel Bisulfate [Plavix] 75 mg PO DAILY #30 tablet 07/26/18 Furosemide [Lasix] 40 mg PO DAILY #7 tablet 07/26/18 Metoprolol Tartrate [Lopressor*] 25 mg PO BID #60 tab 07/26/18 lisinopriL [Prinivil*] 10 mg PO DAILY #30 tab 07/26/18 Levofloxacin [Levaquin] 500 mg PO DAILY 7 Days #7 tablet 08/21/21 Albuterol Neb [Proventil 0.083% Neb Soln] 2.5 mg NEB [id number] PRN #60 amp 08/23/21 Amlodipine [Norvasc*] 5 mg PO DAILY #30 tab 08/23/21 Calcitrol [Rocaltrol*] 0.5 mcg PO DAILY #30 cap 08/23/21 Cholecalciferol (Vitamin D3) [Vitamin D 5,000 IU Cap*] 5,000 unit PO DAILY #30 cap 08/23/21 Ipratropium Neb [Atrovent*] 0.5 mg NEB [id number] PRN #60 amp 08/23/21 Nebulizer Accessories [Aeroneb Go] 1 each MC DAILY #1 each 08/23/21 Nebulizer [Aeroneb Go Nebulizer] 1 each MC DAILY #1 each 08/23/21 Nicotine [Nicoderm*] 21 mg TD DAILY #30 patch.td24 08/23/21 Nicotine [Nicoderm] 1 patch TD DAILY 30 Days #30 patch.td24 10/07/21 Prednisone [Sterapred Ds] 10 mg PO BID 9 Days #21 tab.ds.pk 10/07/21 New Medications: Nicotine [Nicoderm] 1 patch TD DAILY 30 Days #30 patch.td24 Prednisone [Sterapred Ds] 10 mg PO BID 9 Days #21 tab.ds.pk Diet: Regular Activity: Ad angélica Followup: Unknown,U [Primary Care Provider] - Time spent managing pt's care (in minutes): 30
[2021-10-07 12:42] VITALS: BP 152/64; TEMP 97.6
== END 2021-10-07 14:03 | disposition home or self-care (01) | DRG 190 ==
LOC: ER 05:44 → ERHOLD 07:41 → 2ND 09:45
PROVIDERS: ADMIT Internal Medicine; ATTEND Internal Medicine
DX: J44.1 Chronic obstructive pulmonary disease with (acute) exacerbation (principal); J96.00 Acute respiratory failure, unspecified whether with hypoxia or hypercapnia; I50.22 Chronic systolic (congestive) heart failure; I11.0 Hypertensive heart disease with heart failure; E78.2 Mixed hyperlipidemia; I25.10 Atherosclerotic heart disease of native coronary artery without angina pectoris; R77.8 Other specified abnormalities of plasma proteins; I25.2 Old myocardial infarction; F17.210 Nicotine dependence, cigarettes, uncomplicated; Z95.5 Presence of coronary angioplasty implant and graft; Z20.822 Contact with and (suspected) exposure to COVID-19
CPT/HCPCS: 0240U; 36415; 71045; 80048; 80061; 82553; 82805; 84484; 85025; 87040; 93005; 93306; 94640; 94660; 94760; 96365; 96372; 96375; 99285; J1650; J2920; J2930; J7030

== ENCOUNTER 2021-10-17 05:04 | Inpatient (IN) | payer MEDICARE ==
--- OUTSIDE RECORDS SUMMARY | 2021-10-17 05:06 | XMS REPORT | Continuity of Care Document ---
:1950 Author Organization [facility] t Address [address] [place] [address] Care Team Providers Name Role Phone PCP, DOES NOT HAVE A Primary Care Physician Unavailable Abeba YANES Attending Clinician Unavailable Abeba Yanes MD Attending Clinician PRINCE LOPEZ Attending Clinician Unavailable PENNY Attending Clinician Unavailable JOHN Attending Clinician Unavailable Payers Payer Name Policy Type Policy Number Effective Date Expiration Date S ouraiden [employer] [id number] MEDICARE ADVANTAGE 00:00:00 PLAN [employer] [id number] (MEDICARE 00:00:00 REPLACEMENT HMO) Problems Condition Condition Condition Status Onset Resolution Last Treating Co mments Source Name Details Category Date Date Treatment Clinician Date Athscl Athscl Problem Active Univers heart heart ity of disease [place] Physici coronary coronary ans artery w/o artery w/o ang pctrs ang pctrs Asbestos Asbestos Problem Active Unive rs exposure exposure ity of [place] Physici ans Loculated Loculated Problem Active Uni vers pleural pleural ity of effusion effusion [place] Physici ans Centrilobu Centrilobu Problem Active U nivers lar [place] of emph[place] emph[place]se[place] [facility] No known No known Disease Unive rs active active ity of problems problems [facility] Allergies, Adverse Reactions, Alerts Allergy Allergy Status Severity Reaction(s) Onset Inactive Treating Comm ents Source Name Type Date Date Clinician NO KNOWN Drug Active Univers ALLERGIE Class ity of S [facility] Social History Social Habit Start Date Stop Date Quantity Comments Source Exposure to Yes [facility] SARS-CoV-2 (event) Medica l Branch Sex Assigned At [birth year] [facility] 00:00:00 00:00:00 Medical Branch Smoking Status Start Date Stop Date Source [facility]okes tobacco daily (finding) [facility] Unknown if ever smoked [facility] Medications Ordered Filled Start Stop Current Ordering Indication Dosage Frequency Signature Comments Components Source Medication Medication Date Date Medication? Clinician (SIG) Name Name lisinopriL Yes [id number] 10mg Take 1 Univers 10 mg 4-17 tablet by ity of tablet 00:00: mouth at [place] 00 bedtime. Medical Branch metoprolol Yes [id number] 25mg Take 1 Univers tartrate 25 4-17 tablet by ity of mg tablet 00:00: mouth 2 00 (two) Medical times Branch daily. Spiriva Spiriva 2019-06 Yes SULEMA INHALE TWO Univers Respimat Respimat 0-12 SALAS (2) PUFFS ity of 2.5 MCG/ACT 2.5 MCG/ACT 00:00: M.D. BY MOUTH [place] Inhalation Inhalation 00 ONCE Phy sici Aerosol Aerosol DAILY. ans Solution Solution Metoprolol Metoprolol 2012-06 Yes KHOI 1 Q0.5D TAKE 1 Univers Tartrate 25 Tartrate 25 1-21 SDRINGOLA TABLET ity of MG Oral MG Oral 00:00: M.D. TWICE [place] Tablet Tablet 00 DAILY Physici ans Clopidogrel [...] of Tablet Tablet 00:00: DAILY. Physici ans Vital Signs Vital Name Observation Time Observation Value Comments Source Systolic blood 2021-10-11 181 mm[Hg] University of pressure 10:44:00 [facility] Diastolic blood 2021-10-11 70 mm[Hg] University o f pressure 10:44:00 [facility] Heart rate 2021-10-11 61 /min University of 10:44:00 [facility] Body temperature 2021-10-11 35.94 Leni University of 10:44:00 [facility] Respiratory rate 2021-10-11 20 /min University of 10:44:00 [facility] Body height 2021-10-11 182.9 cm University of 10:44:00 [facility] Body weight 2021-10-11 70.308 kg [facility] 10:44:00 [facility] BMI 2021-10-11 21.02 kg/m2 [facility] 10:44:00 [facility] Oxygen saturation 2021-10-11 97 /min [facility] Arterial blood 10:44:00 [facility] by Pulse oximetry Branch Systolic blood 2020-04-16 141 mm[Hg] Location: [facility] 07:34:00 Position: [place] Physician s Sitting Diastolic blood 2020-04-16 60 mm[Hg] Location: [facility] 07:34:00 Position: [place] Physician s Sitting Weight 2020-04-16 173.125 [lb_av] University o f 07:34:00 [place] Physician s Body mass index 2020-04-16 22.23 kg/m2 [place] [facility] (BMI) [Ratio] 07:34:00 [place] Physicia ns Body temperature 2020-04-16 97.2 [degF] Method: [facility] 07:34:00 Tympanic [place] Physician s Heart Rate 2020-04-16 59 /min Location: [place] [facility] 07:34:00 Radial; [place] Physician s Quality: Normal O2 SAT 2020-04-16 95 % Source: [place] of 07:34:00 Non-Rebreather [place] Physici ans Body temperature 2020-04-07 97.8 [degF] [facility] 14:12:00 [place] Physician s Heart Rate 2020-04-07 54 /min [place] of 14:12:00 [place] Physician s Respiratory rate 2020-04-07 18 /min [facility] 14:12:00 [place] Physician s O2 SAT 2020-04-07 97 % Source: RA [facility] 14:12:00 [place] Physician s Systolic blood 2020-04-07 137 mm[Hg] Location: [facility] 14:12:00 Position: [place] Physician s Sitting Diastolic blood 2020-04-07 74 mm[Hg] Location: [facility] 14:12:00 Position: [place] Physician s Sitting Body height 2020-04-07 74 [in_us] University 14:12:00 [place] Physician s Weight 2020-04-07 171 [lb_av] University 14:12:00 [place] Physician s Body mass index 2020-04-07 21.96 kg/m2 [place] [facility] (BMI) [Ratio] 14:12:00 [place] Physicia ns Procedures Procedure Date / Time Performed Performing Clinician Sour e NOTICE OF PRIVACY 2021-10-11 10:30:05 Doctor Unassigned, No [facility] Name Medical [place] CONSENT/REFUSAL FOR 2021-10-11 10:27:09 Doctor Unassigned, No [facility] DI[facility]NOSIS AND Name Medical Branch TREATMENT PET CT Lung solitary 2020-04-07 00:00:00 [id number] [facility] Plan of Care Planned Activity Planned Date Details Comments Source Diagnostic Test 2020-04-[address] [facility] Pending 00:00:00 solitary pulm Physicians nodule [id number] [code = 37572] Diagnostic Test 2020-04-[address] Lung [facility] Pending 00:00:00 solitary pulm Physicians nodule [id number] [code = 24802] Encounters Start End Encounter Admission Attending Care Care Encounter Source Date/Time Date/Time Type Type Clinicians Facility Department ID 2021-10-11 2021-10-11 Emergency X [facility] ERT [id number] Univers 05:52:00 06:48:00 [facility] 2021-10-11 2021-10-11 Emergency [facility] [id number] Univers 05:52:00 06:48:00 Sundeep RUSSELL [id number] ity [facility] [id number] [facility] [id number] [facility] 084 Branch 2020-11-21 2020-11-21 Outpatient DMG DMG [id number] [facility] 08:00:00 08:00:00 0528 Medica l Group 2020-05-05 2020-05-05 Outpatient JOHN, [facility] PUL [id number] [facility] 13:21:00 15:55:00 PASTORA 2020-04-15 2020-04-15 Appointmen DOLLY FRANCIS Cardiology [id number] [facility] 14:00:00 14:00:00 t; Carlos DESIR - [facility] Gabriel DESIR M.D. Center Physi ci ans 2020-04-07 2020-04-07 Appointmen DOLLY LOPEZ Pulmonary & [id number] [facility] 13:30:00 13:30:00 t; PASTORA LOPEZ, [facility] Carlos GUILLORY M.D. Physici ans Results This patient has no known results.
[2021-10-17] MEDS ORDERED: METHYLPREDNISOLONE 125 MG INJ ONE (06:06)
[2021-10-17] MEDS ORDERED: LEVALBUTEROL 1.25 MG/3 ML NEB ONE ×2 (06:07→06:08)
--- NOTE | 2021-10-17 06:08 | ER ---
Nurse's Notes [facility] Name: Gabo Chow Sr Age: 71 yrs Sex: Male : 1950 Arrival Date: 10/17/2021 Time: 05:11 Bed 17 Private MD: Diagnosis: COPD/ Chronic obstructive pulmonary disease with (acute) exacerbation Presentation: 10/17 05:11 Chief complaint: EMS states: patient was having SOB despite taking his nebs treatment. ke1 O2 on arrival 74%, O2 per NC at 4L immediately applied by EMS + Combivent treatment given increased O2 to 92%. Hx of COPD. Coronavirus screen: Vaccine status: Patient reports being unvaccinated. Ebola Screen: No symptoms or risks identified at this time. Initial Sepsis Screen: Does the patient meet any 2 criteria? No. Patient's initial sepsis screen is negative. Does the patient have a suspected source of infection? No. Patient's initial sepsis screen is negative. Risk Assessment: Do you want to hurt yourself or someone else? Patient reports no desire to harm self or others. Onset of symptoms was October 16, 2021 at 23:00. 05:11 Method Of Arrival: EMS: [facility] 05:11 Acuity: ALLI 3 ke1 Triage Assessment: 05:16 General: Appears in no apparent distress. Behavior is appropriate for age. Pain: Denies ke1 pain. Neuro: Level of Consciousness is awake, alert, Oriented to person, place, time, situation. Cardiovascular: Heart tones S1 S2. Respiratory: Airway is patent Respiratory effort is even, unlabored, Respiratory pattern is regular, symmetrical, Breath sounds with wheezes bilaterally. Historical: - Allergies: 05:16 No Known Allergies; ke1 - PMHx: 05:16 CHF; Hypertension; Myocardial infarction; COPD; ke1 - Immunization history:: Client reports having NOT received the Covid vaccine. - Social history:: Smoking status: Patient reports the use of cigarette tobacco products, smokes one pack cigarettes per day. Screenin:48 Abuse screen: Denies threats or abuse. Nutritional screening: No deficits noted. ke1 Tuberculosis screening: No symptoms or risk factors identified. Fall Risk No fall in past 12 months (0 pts). No secondary diagnosis (0 pts). IV access (20 points). Ambulatory Aid- None/Bed Rest/Nurse Assist (0 pts). Gait- Normal/Bed Rest/Wheelchair (0 pts) Mental Status- Oriented to own ability (0 pts). Assessment: 06:24 Reassessment: Patient denies pain at this time. Patient states feeling better. Patient ke1 states symptoms have improved. 07:00 Reassessment: report received from telehealth nurse RN. ll1 Vital Signs: 05:11 BP 135 / 63; Pulse 81; Resp 17; Temp 97.8; Pulse Ox 96% on 2 lpm NC; Weight 74.84 kg; ke1 Height 6 ft. (182.88 cm); Pain 0/10; 06:24 BP 126 / 59; Pulse 78; Resp 18; Pulse Ox 100% on 2 lpm NC; ke1 07:26 BP 133 / 54; Pulse 66; Resp 20; Pulse Ox 94% on R/A; ll1 05:11 Body Mass Index 22.38 (74.84 kg, 182.88 cm) ke1 ED Course: 05:11 Patient arrived in ED. ke1 05:16 Triage completed. ke1 05:18 Dre Jolley MD is Attending Physician. kdr 05:25 Aurelia Calderon, DERIC is Primary Nurse. ke1 05:59 Inserted saline lock: 24 gauge in left wrist, using aseptic technique. ke1 06:07 Joesph Leslie MD is Hospitalizing Provider. kdr 06:23 Inserted saline lock: 20 gauge in right wrist, using aseptic technique. ke1 06:33 XRAY Chest (1 view) In Process Unspecified. EDMS 06:48 Call light in reach. Side rails up X 1. ke1 07:27 Arm band placed on. ll1 08:32 Primary Nurse role handed off by Aurelia Calderon, DERIC eb 08:42 Yennifer Mooney, DERIC is Primary Nurse. ll1 Administered Medications: 06:18 Drug: SOLU-Medrol (methylPrednisoLONE) 125 mg Route: IVP; Site: left wrist; ke1 06:31 Follow up: Response: Marked relief of symptoms ke1 06:19 Drug: Xopenex (levalbuterol) (3) 1.25 mg Route: Inhalation; ke1 06:31 Follow up: Response: Marked relief of symptoms ke1 Outcome: 06:07 Decision to Hospitalize by Provider. kdr 12:51 Patient left the ED. ll1 Signatures: Dispatcher [employer] EDDre Suero MD MD kdr Botello, Elizabeth eb Lewis, Lynsay, RN RN ll1 Aurelia Calderon RN RN ke1 Corrections: (The following items were deleted from the chart) 05:24 05:11 BP 135 / 63; Pulse 81bpm; Resp 17bpm; Pulse Ox 96%; Temp 97.8F; 74.84 kg; Height ke1 6 ft.; BMI: 22.3; Pain 0/10; ke1
--- NOTE | 2021-10-17 06:08 | EDPHYS ---
Physician Documentation [facility] Name: Gabo Chow Sr Age: 71 yrs Sex: Male : 1950 Arrival Date: 10/17/2021 Time: 05:11 Bed 17 Private MD: ED Physician Dre Jolley HPI: 10/17 06:07 This 71 yrs old Male presents to ER via EMS with complaints of Shortness Of Breath. kdr 06:07 The patient has shortness of breath at rest, with light activity. Onset: The kdr symptoms/episode began/occurred yesterday. Duration: The symptoms are continuous, and are steadily getting worse. The patient's shortness of breath is aggravated by coughing, exertion, light activity. Associated signs and symptoms: Pertinent positives: non-productive cough, Pertinent negatives: fever, loss of consciousness. Severity of symptoms: At their worst the symptoms were mild just prior to arrival, moderate just prior to arrival, in the emergency department the symptoms have improved moderately. The patient has not experienced similar symptoms in the past. The patient has not recently seen a physician. Historical: - Allergies: 05:16 No Known Allergies; ke1 - PMHx: 05:16 CHF; Hypertension; Myocardial infarction; COPD; ke1 - Immunization history:: Client reports having NOT received the Covid vaccine. - Social history:: Smoking status: Patient reports the use of cigarette tobacco products, smokes one pack cigarettes per day. ROS: 06:07 Constitutional: Negative for fever, chills, and weight loss, Eyes: Negative for injury, kdr pain, redness, and discharge, Neck: Negative for injury, pain, and swelling, Cardiovascular: Negative for chest pain, palpitations, and edema, Abdomen/GI: Negative for abdominal pain, nausea, vomiting, diarrhea, and constipation, Back: Negative for injury and pain, : Negative for injury, bleeding, discharge, and swelling, MS/Extremity: Negative for injury and deformity, Skin: Negative for injury, rash, and discoloration, Neuro: Negative for headache, weakness, numbness, tingling, and seizure activity. Psych: Negative for depression, anxiety, suicide ideation, homicidal ideation, and hallucinations, Allergy/Immunology: Negative for hives, rash, and allergies, Endocrine: Negative for neck swelling, polydipsia, polyuria, polyphagia, and marked weight changes, Hematologic/Lymphatic: Negative for swollen nodes, abnormal bleeding, and unusual bruising. 06:07 Respiratory: Positive for cough, with no reported sputum, hemoptysis, orthopnea, pleurisy, Negative for Exam: 06:07 Constitutional: This is a well developed, well nourished patient who is awake, alert, kdr and in no acute distress. Head/Face: Normocephalic, atraumatic. Eyes: Pupils equal round and reactive to light, extra-ocular motions intact. Lids and lashes normal. Conjunctiva and sclera are non-icteric and not injected. Cornea within normal limits. Periorbital areas with no swelling, redness, or edema. Neck: Trachea midline, no thyromegaly or masses palpated, and no cervical lymphadenopathy. Supple, full range of motion without nuchal rigidity, or vertebral point tenderness. No Meningismus. Chest/axilla: Normal chest wall appearance and motion. Nontender with no deformity. No lesions are appreciated. Cardiovascular: Regular rate and rhythm with a normal S1 and S2. No gallops, murmurs, or rubs. Normal PMI, no JVD. No pulse deficits. Abdomen/GI: Soft, non-tender, with normal bowel sounds. No distension or tympany. No guarding or rebound. No evidence of tenderness throughout. Back: No spinal tenderness. No costovertebral tenderness. Full range of motion. Skin: Warm, dry with normal turgor. Normal color with no rashes, no lesions, and no evidence of cellulitis. MS/ Extremity: Pulses equal, no cyanosis. Neurovascular intact. Full, normal range of motion. Neuro: Awake and alert, GCS 15, oriented to person, place, time, and situation. Cranial nerves II-XII grossly intact. Motor strength 5/5 in all extremities. Sensory grossly intact. Cerebellar exam normal. Normal gait. Psych: Awake, alert, with orientation to person, place and time. Behavior, mood, and affect are within normal limits. 06:07 Respiratory: mild respiratory distress is noted, Respirations: Breath sounds: wheezing: Vital Signs: 05:11 BP 135 / 63; Pulse 81; Resp 17; Temp 97.8; Pulse Ox 96% on 2 lpm NC; Weight 74.84 kg; ke1 Height 6 ft. (182.88 cm); Pain 0/10; 06:24 BP 126 / 59; Pulse 78; Resp 18; Pulse Ox 100% on 2 lpm NC; ke1 07:26 BP 133 / 54; Pulse 66; Resp 20; Pulse Ox 94% on R/A; ll1 05:11 Body Mass Index 22.38 (74.84 kg, 182.88 cm) ke1 MDM: 06:07 Patient medically screened. [facility] 06:07 Data reviewed: vital signs, nurses notes, lab test result(s), radiologic studies. [facility] Counseling: I had a detailed discussion with the patient and/or guardian regarding: the historical points, exam findings, and any diagnostic results supporting the discharge/admit diagnosis, lab results, radiology results, the need for further work-up and treatment in the hospital. ED course: Patient was noted to have an oxygen saturation of 74% at home. On arrival the patient was in stable condition and on oxygen in the ED, his saturation was 99 to 100%. Patient was not in any respiratory distress and did not appear to be acutely ill or otherwise in extremis.. 07:24 ED course: Patient was noted to have an elevated troponin today. When compared to the [facility] prior value, it is significantly improved today.. 10/17 05:19 Order name: Basic Metabolic Panel [facility] 10/17 05:19 Order name: CBC with Diff [facility] 10/17 05:19 Order name: Troponin HS [facility] 10/17 05:19 Order name: XRAY Chest (1 view) [facility] 10/17 06:21 Order name: COVID-19/FLU A+B (Document "Date of Onset" if Symptomatic) tw5 10/17 05:19 Order name: EKG; Complete Time: 05:20 [facility] 10/17 05:19 Order name: Cardiac monitoring; Complete Time: 06:22 [facility] 10/17 05:19 Order name: EKG - Nurse/Tech; Complete Time: 06:22 [facility] 10/17 05:19 Order name: IV Saline Lock; Complete Time: 05:59 [facility] 10/17 05:19 Order name: Labs collected and sent; Complete Time: 06:19 [facility] 10/17 05:19 Order name: O2 Per Protocol; Complete Time: 06:19 [facility] 10/17 05:19 Order name: O2 Sat Monitoring; Complete Time: 06:19 kdr Administered Medications: 06:18 Drug: SOLU-Medrol (methylPrednisoLONE) 125 mg Route: IVP; Site: left wrist; ke1 06:31 Follow up: Response: Marked relief of symptoms ke1 06:19 Drug: Xopenex (levalbuterol) (3) 1.25 mg Route: Inhalation; ke1 06:31 Follow up: Response: Marked relief of symptoms ke1 Disposition Summary: 10/17/21 06:07 Hospitalization Ordered Hospitalization Status: Inpatient Admission kdr Provider: Joesph Leslie Location: Telemetry/MedSurg (Inpatient) kdr Condition: Fair kdr Problem: an acute exacerbation kdr Symptoms: have improved kdr Bed/Room Type: Standard kdr Room Assignment: 228(10/17/21 11:47) eb Diagnosis - COPD/ Chronic obstructive pulmonary disease with (acute) exacerbation kdr Forms: - Medication Reconciliation Form kdr - SBAR form kdr Signatures: Dispatcher [employer] Dre Kate MD MD kdr Botello, Elizabeth eb Ebrottie, Kouassi, RN RN ke1 Corrections: (The following items were deleted from the chart) 11:47 06:07 manda eb
[2021-10-17] MEDS: METHYLPREDNISOLONE 40 MG INJ IV SCH ×2 (06:18→16:26)
[2021-10-17 06:31] LABS: Absolute Lymphocytes (CBC) 2.4 K/uL (0.7-4.9); Hematocrit 46.1 % (39.6-49.0); Lymphocytes % 13.5 % (15.3-44.8); MPV 7.7 fL (7.6-11.3); RBC Red Blood Cell Count 5.14 M/uL (4.33-5.43)
[2021-10-17 07:14] LABS: Troponin High Sensitivity 260.5 pg/mL (<58.9)
[2021-10-17 07:55] LABS: SARS-COV-2 RT PCR NEGATIVE (NEGATIVE)
--- NOTE | 2021-10-17 07:58 | RAD REPORT ---
EXAM DESCRIPTION: RAD - Chest Single View - 10/17/2021 6:32 am CLINICAL HISTORY: SOB Chest pain. COMPARISON: Chest Single View dated 10/05/2021; Chest Single View dated 08/19/2021; Chest Single View dated 07/24/2018; CHEST SINGLE VIEW dated 05/20/2012 FINDINGS: Portable technique limits examination quality. Bilateral pulmonary opacities and mild right pleural effusion unchanged since prior study. The heart is mildly enlarged in size. No displaced fractures.
[2021-10-17] MEDS ORDERED: ONDANSETRON 4 MG/2 ML VIAL IV PRN (08:25)
[2021-10-17] MEDS ORDERED: ACETAMINOPHEN 500 MG TAB PO PRN (08:25)
[2021-10-17 08:28] VITALS: BMI 21.9
[2021-10-17] MEDS ORDERED: ASPIRIN EC 81 MG TAB PO ONE (08:51)
[2021-10-17] MEDS: ASPIRIN EC 81 MG TAB PO SCH (09:00)
--- NOTE | 2021-10-17 12:20 | P.HP ---
Certification for Inpatient Patient admitted to: Inpatient With expected LOS: >2 Midnights Patient will require the following post-hospital care: None Practitioner: I am a practitioner with admitting privileges, knowledge of patient current condition, hospital course, and medical plan of care. Services: Services provided to patient in accordance with Admission requirements found in Title 42 Section 412.3 of the Code of Federal Regulations Patient History Date of Service: 10/17/21 Primary Care Provider: Anuj Reason for admission: Copd exacerbation History of Present Illness: Patient of mine with a history of copd. He was doing well. Woke up last night with complaints of sob. Started a breathing treatment. However was so sob he called ems. was found to have a pulse ox of 73 and was brought to the ER. He is doing well at this time. Pulse ox is 96 on room air. However he is still audible wheezing from the doorway. The patient denies any smoking, allergies or exposures to any chemical fumes. Allergies No Known Allergies Allergy (Verified 05/20/12 16:57) Home Medications: Atorvastatin Calcium [Lipitor] 40 mg PO BEDTIME #30 tab 07/26/18 Clopidogrel Bisulfate [Plavix] 75 mg PO DAILY #30 tablet 07/26/18 Furosemide [Lasix] 40 mg PO DAILY #7 tablet 07/26/18 Metoprolol Tartrate [Lopressor*] 25 mg PO BID #60 tab 07/26/18 lisinopriL [Prinivil*] 10 mg PO DAILY #30 tab 07/26/18 Levofloxacin [Levaquin] 500 mg PO DAILY 7 Days #7 tablet 08/21/21 Albuterol Neb [Proventil 0.083% Neb Soln] 2.5 mg NEB [id number] PRN #60 amp 08/23/21 Amlodipine [Norvasc*] 5 mg PO DAILY #30 tab 08/23/21 Calcitrol [Rocaltrol*] 0.5 mcg PO DAILY #30 cap 08/23/21 Cholecalciferol (Vitamin D3) [Vitamin D 5,000 IU Cap*] 5,000 unit PO DAILY #30 cap 08/23/21 Ipratropium Neb [Atrovent*] 0.5 mg NEB [id number] PRN #60 amp 08/23/21 Nebulizer Accessories [Aeroneb Go] 1 each MC DAILY #1 each 08/23/21 Nebulizer [Aeroneb Go Nebulizer] 1 each MC DAILY #1 each 08/23/21 Nicotine [Nicoderm] 1 patch TD DAILY 30 Days #30 patch.td24 10/07/21 Prednisone [Sterapred Ds] 10 mg PO BID 9 Days #21 tab.ds.pk 10/07/21 - Past Medical/Surgical History Has patient received pneumonia vaccine in the past: Yes Diabetic: No -: HTN -: COPD -: HI -: CAD -: heart stent - Family History Father -: GI disease, Other (see notes) Notes: Heart attack Mother -: Cancer Notes: COPd - Social History Smoking Status: Current every day smoker Alcohol use: No CD- Drugs: No Caffeine use: Yes Review of Systems 10-point ROS is otherwise unremarkable Respiratory: Shortness of Breath Physical Examination - Vital Signs Temperature: 98.0 F Blood Pressure: 134/50 Pulse: 67 Respirations: 18 Pulse Ox (%): 97 - Physical Exam General: Alert, In no apparent distress HEENT: Atraumatic, PERRLA, Mucous membr. moist/pink, EOMI, Sclerae nonicteric Neck: Supple, 2+ carotid pulse no bruit, No LAD, Without JVD or thyroid abnormality Respiratory: Diminished, Expiratory wheezes Cardiovascular: Regular rate/rhythm, Normal S1 S2 Gastrointestinal: Normal bowel sounds, No tenderness Musculoskeletal: No tenderness Integumentary: No rashes Neurological: Normal gait, Normal speech, Normal strength at 5/5 x4 extr, Normal tone, Normal affect Lymphatics: No axilla or inguinal lymphadenopathy - Studies Laboratory Data (last 24 hrs) 10/17/21 06:13: WBC 17.7 H, Hgb 15.5, Hct 46.1 D, Plt Count 204 10/17/21 06:13: Sodium 136, Potassium 5.0, BUN 43 H, Creatinine 2.09 H, Glucose 116 H Assessment and Plan - Problems (Diagnosis) (1) Acute bronchitis with COPD Current Visit: No Status: Acute Plan: Will start the patient on steroids and breathing treatment. (2) HTN (hypertension) Current Visit: No Status: Acute Plan: will restart his medication from home. Adjust as needed Qualifiers: Hypertension type: primary hypertension (3) CKD (chronic kidney disease) stage 3, GFR 30-59 ml/min Current Visit: Yes Status: Acute Plan: He is actually at his baseline creatine. Will continue monitoring. May give fluid as needed Qualifiers: Chronic kidney disease stage 3 subtype: stage 3b (GFR 30-44) Qualified Code(s): N18.32 - Chronic kidney disease, stage 3b (4) Nicotine dependence Current Visit: No Status: Acute Plan: will give him a nicotine patch in house. he has not been smoking since the last admission. Patient can refuse is he feels its unnecessary Qualifiers: Nicotine product type: cigarettes Discharge Plan: Home Plan to discharge in: 48 Hours - Advance Directives Does patient have a Living Will: No Does patient have a Durable POA for Healthcare: No - Code Status/Comfort Care Code Status Assessed: No Code Status: Full Code Physician Review: Patient Assessed, Agree with Above Assessment and Plan Critical Care: No Time Spent Managing Pts Care (In Minutes): 45
--- NOTE | 2021-10-17 19:39 | CON ---
Date of Consultation: 10/17/2021 Reason For Consultation: Elevated troponin. History Of Present Illness: This is an elderly male with history of COPD, active smoker who was rece ntly hospitalized for COPD exacerbation, comes in with shortness of breath, wheezing, and minimal cou gh. No chest pain. Denies having any acute chest pain. The patient is known to have history of cor onary artery disease. Past Medical History: COPD, coronary artery disease status post cardiac stent long time ago, hyperte nsion. Medications: Refer reconciliation sheet for detailed list. Allergies: NO KNOWN DRUG ALLERGIES. Family History: No premature coronary artery disease or cancer. Social History: He is an everyday smoker. Does not use any drugs. Review of Systems: All systems reviewed and they were negative except for as mentioned in HPI. Physical Examination: Vital Signs: Reviewed. Head and Neck: Pupils are equal, reactive to light. Intact eye movements. No JVD. No cervical lym phadenopathy. Neck: Supple. Thyroid is not enlarged. Lungs: Wheezing bilaterally with rhonchi. No accessory muscle use or muscle retraction. Heart: Regular rate and rhythm. No extra sounds. Abdomen: Soft, nontender. Bowel sounds positive. No organomegaly. No masses or hernia. No rigidi ty or rebound. Extremities: No clubbing, cyanosis. Intact pulses. Skin: No rashes. Neurologic: Alert, awake, oriented x3. No acute focal deficits appreciated. Investigations: Labs were reviewed as troponin is 260. Creatinine is 2.09. Assessment And Recommendations: Elevated troponin. No chest pain. Please trend 2 more sets of trop onin until it peaks, and the patient is chest pain-free, however, has multiple risk factors. We will plan for doing an exercise nuclear stress test on him which can be arranged at a later time once his COPD exacerbation is resolved and please check 2 more sets of troponins. Thank you for the consult. /DEVONL Voice ID: [id number] Report ID: [id number]
[2021-10-17] MEDS: ATORVASTATIN 40 MG TAB PO SCH (20:24)
[2021-10-17] MEDS: IPRATROPIUM BROM 0.5MG/2.5ML NEB PRN (23:11)
[2021-10-17] MEDS: ALBUTEROL 2.5 MG/3 ML NEB SOL NEB PRN (23:11)
[2021-10-18] MEDS: METHYLPREDNISOLONE 40 MG INJ IV SCH ×3 (02:13→16:49)
[2021-10-18 05:51] LABS: Absolute Lymphocytes (CBC) 1.9 K/uL (0.7-4.9); Hematocrit 41.8 % (39.6-49.0); Lymphocytes % 7.6 % (15.3-44.8); MPV 8.1 fL (7.6-11.3); RBC Red Blood Cell Count 4.62 M/uL (4.33-5.43)
[2021-10-18 06:10] LABS: Potassium 5.1 mmol/L (3.5-5.1)
[2021-10-18 06:58] LABS: Toxic Granulation 1+
[2021-10-18 06:59] LABS: Blood Morphology Comment NOT SEEN (NOT SEEN); Platelet Estimate ADEQ
[2021-10-18] MEDS: ALBUTEROL 2.5 MG/3 ML NEB SOL NEB PRN (07:58)
[2021-10-18] MEDS: IPRATROPIUM BROM 0.5MG/2.5ML NEB PRN (07:58)
[2021-10-18] MEDS: CLOPIDOGREL 75 MG TABLET PO SCH (08:18)
[2021-10-18] MEDS: ASPIRIN EC 81 MG TAB PO SCH (08:18)
[2021-10-18] MEDS: VITAMIN D 5,000 UNIT CAP PO SCH (08:18)
[2021-10-18] MEDS: AMLODIPINE 5 MG TAB PO SCH (08:19)
[2021-10-18] MEDS: lisinopriL 10 MG TAB PO SCH (08:19)
--- NOTE | 2021-10-18 11:17 | P.PN ---
Subjective Date of Service: 10/18/21 Primary Care Provider: Anuj Chief Complaint: Copd exacerbation Subjective: Improving Review of Systems 10-point ROS is otherwise unremarkable Physical Examination - Vital Signs Temperature: 97.8 F Blood Pressure: 116/59 Pulse: 74 Respirations: 16 Pulse Ox (%): 95 - Physical Exam General: Alert, In no apparent distress HEENT: Atraumatic, PERRLA, EOMI Neck: Supple, JVD not distended Respiratory: Normal air movement, Expiratory wheezes Cardiovascular: Regular rate/rhythm, Normal S1 S2 Gastrointestinal: Normal bowel sounds, No tenderness Musculoskeletal: No tenderness Integumentary: No rashes Neurological: Normal speech, Normal tone, Normal affect Lymphatics: No axilla or inguinal lymphadenopathy Assessment And Plan - Current Problems (Diagnosis) (1) Acute bronchitis with COPD Current Visit: No Status: Acute Plan: Will start the patient on steroids and breathing treatment. (2) HTN (hypertension) Current Visit: No Status: Acute Plan: will restart his medication from home. Adjust as needed Qualifiers: Hypertension type: primary hypertension (3) CKD (chronic kidney disease) stage 3, GFR 30-59 ml/min Current Visit: Yes Status: Acute Plan: He is actually at his baseline creatine. Will continue monitoring. May give fluid as needed Qualifiers: Chronic kidney disease stage 3 subtype: stage 3b (GFR 30-44) Qualified Code(s): N18.32 - Chronic kidney disease, stage 3b (4) Nicotine dependence Current Visit: No Status: Acute Plan: will give him a nicotine patch in house. he has not been smoking since the last admission. Patient can refuse is he feels its unnecessary Qualifiers: Nicotine product type: cigarettes (5) Troponin level elevated Current Visit: Yes Status: Acute Plan: secondary to copd exacerbation Plan for an out patient stress test per last admission. If no elevation of his troponin will be able to send him home tomorrow Discharge Plan: Home Plan to discharge in: 24 Hours - Code Status/Comfort Care Code Status Assessed: No Physician Review: Patient Assessed, Agree with Above Assessment and Plan Critical Care: No Time Spent Managing PTS Care (In Minutes): 20
--- NOTE | 2021-10-18 19:09 | PN ---
Date of Progress Note: 10/18/2021 Subjective: Seen by bedside. No chest pain. Walking around nicely without significant symptoms. Review of Systems: No chest pain. Minimal wheezing and shortness of breath on exertion. No nausea, vomiting, diarrhea. No abdominal pain. All other systems reviewed and are negative. Physical Examination: Vital Signs: Reviewed. Head and Neck: Pupils are equal, reactive to light. Intact eye movements. No JVD. No cervical lym phadenopathy. Neck is supple. Thyroid is not enlarged. Lungs: Clear to auscultation bilaterally. No rhonchi, rales, or crackles. No accessory muscle use. Heart: Regular rate and rhythm. No extra sounds. Abdomen: Soft, nontender. Bowel sounds positive. No organomegaly. No masses or hernia. No rigidi ty or rebound. Extremities: No clubbing or cyanosis. Intact pulses. Skin: No rash noted. Neurologic: Alert, awake, oriented x3. No acute focal deficits appreciated. Investigations: Troponin drifted down to 116. Assessment And Recommendations: Elevated troponin, likely demand ischemia; however, has multiple ris k factors for coronary artery disease. Recommend outpatient exercise nuclear stress test and echocardiogram. Cardiology will sign off. We will be happy to see the patient on outpatient basis o nce discharged. SR/MODL Voice ID: [id number] Report ID: [id number]
[2021-10-18] MEDS: ATORVASTATIN 40 MG TAB PO SCH (20:19)
[2021-10-19] MEDS: METHYLPREDNISOLONE 40 MG INJ IV SCH ×2 (00:05→08:27)
[2021-10-19 08:11] VITALS: BP 143/67; TEMP 98.3
[2021-10-19] MEDS: CLOPIDOGREL 75 MG TABLET PO SCH (08:26)
[2021-10-19] MEDS: AMLODIPINE 5 MG TAB PO SCH (08:26)
[2021-10-19] MEDS: VITAMIN D 5,000 UNIT CAP PO SCH (08:26)
[2021-10-19] MEDS: ASPIRIN EC 81 MG TAB PO SCH (08:26)
[2021-10-19] MEDS: lisinopriL 10 MG TAB PO SCH (08:26)
[2021-10-19 09:29] VITALS: O2SAT 92
--- NOTE | 2021-10-19 09:41 | P.DS ---
Admission Date: 10/17/21 Discharge Date: 10/19/21 Primary Care Provider: Anuj Disposition: ROUTINE DISCHARGE Discharge Condition: GOOD Reason for Admission: Copd exacerbation - Problems (1) Acute bronchitis with COPD Current Visit: No Status: Acute (2) HTN (hypertension) Current Visit: No Status: Acute Qualifiers: Hypertension type: primary hypertension (3) CKD (chronic kidney disease) stage 3, GFR 30-59 ml/min Current Visit: Yes Status: Acute Qualifiers: Chronic kidney disease stage 3 subtype: stage 3b (GFR 30-44) Qualified Code(s): N18.32 - Chronic kidney disease, stage 3b (4) Nicotine dependence Current Visit: No Status: Acute Qualifiers: Nicotine product type: cigarettes (5) Troponin level elevated Current Visit: Yes Status: Acute Brief History of Present Illness: Patient of mine with a history of copd. He was doing well. Woke up last night with complaints of sob. Started a breathing treatment. However was so sob he called ems. was found to have a pulse ox of 73 and was brought to the ER. He is doing well at this time. Pulse ox is 96 on room air. However he is still audible wheezing from the doorway. The patient denies any smoking, allergies or exposures to any chemical fumes. Hospital Course: Patient was seen in the ER Started on steroids and breathing treatments. Ethan bridget well. He was seen by Dr. Hussein for a tropinin elevation. Was trending downwards during his stay. This happened during his last visit. The plan then was for an outpatient stress test. Will refer him to Dr. Turner on follow up. he did ask for a cpap. We can refer him to Dr. Salgado. Will start him on a maintenance inhaler to prevent these episodes. A cpap would be beneficial in conjunction with steroids and breathing treatment during a copd exacerbation. However not likely to be paid for by insurance. Maintenance inhalers would be cheaper and of greater benefit Vital Signs/Physical Exam: Temp Pulse Resp BP Pulse Ox 98.3 F 63 16 143/67 H 97 10/19/21 08:00 10/19/21 08:26 10/19/21 08:00 10/19/21 08:26 10/19/21 08:00 General: Alert, In no apparent distress HEENT: Atraumatic, PERRLA, EOMI Neck: Supple, JVD not distended Respiratory: Clear to auscultation bilaterally, Normal air movement Cardiovascular: Regular rate/rhythm, Normal S1 S2 Gastrointestinal: Normal bowel sounds, No tenderness Musculoskeletal: No tenderness Integumentary: No rashes Neurological: Normal speech, Normal tone, Normal affect Lymphatics: No axilla or inguinal lymphadenopathy Laboratory Data at Discharge: WBC 24.6 K/uL (4.3-10.9) H* D 10/18/21 05:18 Hgb 13.7 g/dL (13.6-17.9) 10/18/21 05:18 Hct 41.8 % (39.6-49.0) 10/18/21 05:18 Plt Count 254 K/uL (152-406) D 10/18/21 05:18 Sodium 133 mmol/L (136-145) L 10/18/21 05:18 Potassium 5.1 mmol/L (3.5-5.1) 10/18/21 05:18 BUN 52 mg/dL (7-18) H 10/18/21 05:18 Creatinine 2.10 mg/dL (0.55-1.3) H 10/18/21 05:18 Glucose 178 mg/dL (74-106) H 10/18/21 05:18 Home Medications: Atorvastatin Calcium [Lipitor] 40 mg PO BEDTIME #30 tab 07/26/18 Clopidogrel Bisulfate [Plavix] 75 mg PO DAILY #30 tablet 07/26/18 Furosemide [Lasix] 40 mg PO DAILY #7 tablet 07/26/18 Metoprolol Tartrate [Lopressor*] 25 mg PO BID #60 tab 07/26/18 lisinopriL [Prinivil*] 10 mg PO DAILY #30 tab 07/26/18 Levofloxacin [Levaquin] 500 mg PO DAILY 7 Days #7 tablet 08/21/21 Albuterol Neb [Proventil 0.083% Neb Soln] 2.5 mg NEB [id number] PRN #60 amp 08/23/21 Amlodipine [Norvasc*] 5 mg PO DAILY #30 tab 08/23/21 Calcitrol [Rocaltrol*] 0.5 mcg PO DAILY #30 cap 08/23/21 Cholecalciferol (Vitamin D3) [Vitamin D 5,000 IU Cap*] 5,000 unit PO DAILY #30 cap 08/23/21 Ipratropium Neb [Atrovent*] 0.5 mg NEB [id number] PRN #60 amp 08/23/21 Nebulizer Accessories [Aeroneb Go] 1 each MC DAILY #1 each 08/23/21 Nebulizer [Aeroneb Go Nebulizer] 1 each MC DAILY #1 each 08/23/21 Nicotine [Nicoderm] 1 patch TD DAILY 30 Days #30 patch.td24 10/07/21 Fluticasone/Salmeterol [Advair Hfa 115-21 Mcg Inhaler] 8 gm IH BID 30 Days #30 aer.w.adap 10/19/21 Prednisone [Sterapred Ds] 10 mg PO BID 9 Days #21 tab.ds.pk 10/19/21 New Medications: Fluticasone/Salmeterol [Advair Hfa 115-21 Mcg Inhaler] 8 gm IH BID 30 Days #30 aer.w.adap Prednisone [Sterapred Ds] 10 mg PO BID 9 Days #21 tab.ds.pk Diet: Regular Activity: Ad angélica Followup: Joesph Leslie MD [ACTIVE - CAN ADMIT] - 1 Week Evangelist Carter MD [ACTIVE - CAN ADMIT] - 1-2 Weeks Physician Review: Patient Assessed, Agree with Above Assessment and Plan Time spent managing pt's care (in minutes): 30
--- NOTE | 2021-10-19 22:57 | PN ---
Date of Progress Note: 10/19/2021 Mr. Chow came in with COPD exacerbation and has a history of coronary artery disease. He came in wit h increased troponin that has been decreasing. It is felt that this is definitely a demand ischemia. We had plan for him to do an outpatient Lexiscan, but apparently there were some insurance issues. I am not so sure he is in a shape right now to have outpatient Lexiscan or inpatient Lexiscan becaus e his COPD is still severe. He still has significant wheezing, but no chest pain. I will discuss th e case further with Dr. Leslie. SHELTON/ARTURO Voice ID: [id number] Report ID: [id number]
--- NOTE | 2021-10-20 09:37 | EKG ---
Test Date: 2021-10-17 Test Time: 06:20:46 Licensed Vocational Nurse: MEASUREMENT RESULTS: Intervals: Rate: 63 SD: 132 QRSD: 120 QT: 414 QTc: 423 [place]: P: 76 SD: 132 QRS: 31 T: 236 INTERPRETIVE STATEMENTS: Normal sinus rhythm Septal infarct, age undetermined ST & T wave abnormality, consider inferolateral ischemia Abnormal ECG Compared to ECG 10/06/2021 07:36:18 ST (T wave) deviation now present Ventricular premature complex(es) no longer present T-wave abnormality no longer present Myocardial infarct finding still present Possible ischemia still present Electronically Signed On 10-20-21 09:32:19 CDT by Irvin Turner
== END 2021-10-19 10:42 | disposition home or self-care (01) | DRG 190 ==
LOC: ER 05:04 → ERHOLD 07:55 → 2ND 12:33
PROVIDERS: ADMIT Internal Medicine; ATTEND Internal Medicine
DX: J44.1 Chronic obstructive pulmonary disease with (acute) exacerbation (principal); J96.01 Acute respiratory failure with hypoxia; I24.8 Other forms of acute ischemic heart disease; I13.0 Hypertensive heart and chronic kidney disease with heart failure and stage 1 through stage 4 chronic kidney disease, or unspecified chronic kidney disease; I50.22 Chronic systolic (congestive) heart failure; I25.10 Atherosclerotic heart disease of native coronary artery without angina pectoris; N18.32 Chronic kidney disease, stage 3b; R77.8 Other specified abnormalities of plasma proteins; I25.2 Old myocardial infarction; Z95.5 Presence of coronary angioplasty implant and graft; F17.210 Nicotine dependence, cigarettes, uncomplicated; Z20.822 Contact with and (suspected) exposure to COVID-19
CPT/HCPCS: 0240U; 36415; 71045; 80048; 82947; 83880; 84484; 85025; 93005; 94640; 94760; 96374; 99284; J2920; J2930

== ENCOUNTER 2022-01-09 22:58 | Inpatient (IN) | payer MEDICARE ==
[2022-01-10 01:01] LABS: Protime INR 0.93
[2022-01-10 01:03] LABS: ALT/SGPT 19 U/L (12-78); AST/SGOT 12 U/L (15-37); Albumin 3.3 g/dL (3.4-5.0); Alkaline Phosphatase 87 U/L (45-117); BUN Blood Urea Nitrogen 31 mg/dL (7-18); Bicarbonate 29 mmol/L (21-32); Bilirubin Total 0.3 mg/dL (0.2-1.0); Glomerular Filtration Rate 26 ml/min (=/>90); Glucose Level 138 mg/dL (74-106); Magnesium 2.7 mg/dL (1.8-2.4); NT PRO-BNP 2600 pg/mL (<125); Potassium 4.3 mmol/L (3.5-5.1); Protein, Total 6.9 g/dL (6.4-8.2); Sodium Level 138 mmol/L (136-145); Troponin High Sensitivity 55.5 pg/mL (<58.9)
[2022-01-10 01:06] LABS: Bilirubin Direct < 0.1 mg/dL (0-0.2)
[2022-01-10] MEDS ORDERED: ASPIRIN 81 MG CHEWABLE TABLET ONE (01:18)
[2022-01-10] MEDS ORDERED: METHYLPREDNISOLONE 125 MG INJ ONE (01:18)
[2022-01-10] MEDS ORDERED: ALBUTEROL 2.5 MG/3 ML NEB SOL ONE (01:18)
[2022-01-10] MEDS ORDERED: ONDANSETRON 4 MG/2 ML VIAL ONE (01:18)
[2022-01-10] MEDS ORDERED: IPRATROPIUM BROM 0.5MG/2.5ML ONE (01:19)
[2022-01-10 01:27] LABS: Absolute Lymphocytes (CBC) 3.3 K/uL (0.7-4.9); Hematocrit 44.1 % (39.6-49.0); Lymphocytes % 11.4 % (15.3-44.8); MCV 92.8 fL (80-100); MPV 8.9 fL (7.6-11.3); RBC Red Blood Cell Count 4.75 M/uL (4.33-5.43)
[2022-01-10 02:06] LABS: Blood Morphology Comment NOT SEEN (NOT SEEN); Platelet Estimate ADEQ
[2022-01-10] MEDS ORDERED: FUROSEMIDE 20 MG/ 2ML VIAL ONE (02:17)
[2022-01-10] MEDS ORDERED: CEFTRIAXONE 1000 MG/VIAL ONE (02:17)
[2022-01-10] MEDS ORDERED: AZITHROMYCIN 500 MG INJ IVPB ONE (02:18)
[2022-01-10] MEDS ORDERED: NA CHLORIDE 0.9% 250 ML ONE (02:18)
--- NOTE | 2022-01-10 02:20 | ER ---
Nurse's Notes [facility] Name: Gabo Chow Sr Age: 71 yrs Sex: Male : 1950 Arrival Date: 01/09/2022 Time: 23:09 Bed 25 Private MD: Diagnosis: Unspecified combined systolic (congestive) and diastolic (congestive) heart failure;Other pneumonia, unspecified organism;COPD/ Chronic obstructive pulmonary disease with (acute) exacerbation;Hypoxemia;Unspecified kidney failure Presentation: 01/09 23:14 Chief complaint: EMS states: SOB 60% on RA on EMS arrival, increases to 90% on NRB , R ke1 31. Coronavirus screen: Vaccine status: Patient reports being unvaccinated. Ebola Screen: No symptoms or risks identified at this time. Initial Sepsis Screen: Does the patient meet any 2 criteria?. Risk Assessment: Do you want to hurt yourself or someone else? Patient reports no desire to harm self or others. Onset of symptoms was January 09, 2022 at 22:00. 23:14 Method Of Arrival: EMS: [facility] ke1 23:14 Acuity: ALLI 3 ke1 23:23 Note Threw up on arrival and felt a relief, at this time 94% on 3 l per NC . ke1 01/10 00:00 Initial Sepsis Screen: Does the patient have a suspected source of infection? No. ke1 Patient's initial sepsis screen is negative. Triage Assessment: 01/09 23:22 General: Appears uncomfortable, Behavior is anxious. Pain: Denies pain. GI: Reports ke1 vomiting. 23:24 GI: Pt is actively vomiting undigested food. ke1 Historical: - Allergies: 23:22 No Known Allergies; ke1 - PMHx: 23:22 CHF; COPD; Hypertension; Myocardial infarction; ke1 - Immunization history:: Adult Immunizations not up to date. - Social history:: Smoking status: Patient reports the use of cigarette tobacco products, smokes one pack cigarettes per day. Screenin/17 00:00 Abuse screen: Denies threats or abuse. Nutritional screening: No deficits noted. ke1 Tuberculosis screening: No symptoms or risk factors identified. Fall Risk No fall in past 12 months (0 pts). No secondary diagnosis (0 pts). No IV (0 pts). Ambulatory Aid- None/Bed Rest/Nurse Assist (0 pts). Gait- Normal/Bed Rest/Wheelchair (0 pts) Mental Status- Oriented to own ability (0 pts). Total Mead Fall Scale indicates No Risk (0-24 pts). Assessment: 03:26 Reassessment: No changes from previously documented assessment. Patient and/or family ll3 updated on plan of care and expected duration. Pain level reassessed. Patient is alert, oriented x 3, equal unlabored respirations, skin warm/dry/pink. Vital Signs: 01/09 23:14 BP 120 / 74; Pulse 58; Resp 25; Temp 97.8; Pulse Ox 94% on 3 lpm NC; Weight 83.91 kg; ke1 Height 6 ft. (182.88 cm); Pain 0/10; 01/10 03:26 BP 108 / 52; Pulse 61; Resp 20; Pulse Ox 100% on 2 lpm NC; ll3 03:35 BP 117 / 57; Pulse 53; Resp 17; Pulse Ox 100% ; Pain 0/10; ke1 01/09 23:14 Body Mass Index 25.09 (83.91 kg, 182.88 cm) [facility] ED Course: 01/09 23:09 Patient arrived in ED. ke1 23:11 Vamshi Holland PA is PHCP. cp 23:13 Amado Styles MD is Attending Physician. cp 23:13 Aurelia Calderon, RN is Primary Nurse. ke1 23:22 Triage completed. ke1 23:43 Patient has correct armband on for positive identification. Placed in gown. Bed in low mh5 position. Call light in reach. Side rails up X2. Warm blanket given. Pillow given. compliance monitor on. Pulse ox on. NIBP on. 23:44 EKG done, by ED staff, reviewed by Amado Styles MD. [facility] 01/10 00:00 No provider procedures requiring assistance completed. Patient admitted, IV remains in [facility]. 00:46 XRAY Chest (1 view) In Process Unspecified. EDMS 01:29 Notified Nurse Practitioner and/or Physician Solar Sales Specialist of a critical lab result(s), bb WBCs 29.4 Vamshi SPRINGER notified. 02:17 Saqib Martinez MD is Hospitalizing Provider. cp Administered Medications: 01:25 Drug: Zofran (Ondansetron) 4 mg Route: IVP; Site: left jugular; ll3 01:25 Drug: SOLU-Medrol (methylPrednisoLONE) 125 mg Route: IVP; Site: left jugular; ll3 01:25 Drug: Albuterol - atroVENT (ipratropium) (3:1) (2.5 mg - 0.5 mg) 3 ml Route: Nebulizer; ll3 01:26 Drug: Aspirin Chewable Tablet 324 mg Route: PO; ll3 02:24 Drug: Rocephin - (cefTRIAXone) 1 grams Route: IVPB; Infused Over: 30 mins; Site: left ll3 jugular; 02:24 Drug: Zithromax (azithromycin) 500 mg Route: IVPB; Infused Over: 1 hrs; Site: left ll3 jugular; 02:24 Drug: Lasix (furosemide) 20 mg Route: IVP; Site: left jugular; ll3 Medication: 03:45 VIS not applicable for this client. ke1 Outcome: 02:19 Decision to Hospitalize by Provider. cp 03:44 Admitted to ER Hold. Please see [facility] for further documentation. ke1 03:44 Condition: good 03:44 Instructed on the need for admit. 05:05 Patient left the ED. bb Signatures: Dispatcher [employer] EDMS Asya Ring RN RN bb Vamshi Holland PA PA cp Martinez, Maria [facility] Roscoe Castro RN RN 3 Aurelia Calderon RN RN ke1 Corrections: (The following items were deleted from the chart) 00:16 07/16 23:14 BP 120 / 74; Pulse 58bpm; Resp 25bpm; Pulse Ox 94% 3 lpm Nasal Cannula; ke1 83.91 kg; Height 6 ft.; BMI: 25.0; Pain 0/10; ke1
--- NOTE | 2022-01-10 02:21 | EDPHYS ---
Physician Documentation [facility] Name: Gabo Chow Sr Age: 71 yrs Sex: Male : 1950 Arrival Date: 01/09/2022 Time: 23:09 Bed 25 Private MD: ED Physician Amado Styles HPI: 01/09 23:20 This 71 yrs old Male presents to ER via EMS with complaints of Shortness of Breath. cp 23:20 The patient has shortness of breath at rest. Onset: The symptoms/episode began/occurred cp today. Duration: The symptoms are continuous, and are steadily getting worse. Associated signs and symptoms: Pertinent negatives: chest pain, productive cough, diaphoresis, fever, hemoptysis. Severity of symptoms: in the emergency department the symptoms have improved mildly. EMS reports patient with oxygen sats in 60's upon arrival. Historical: - Allergies: 23:22 No Known Allergies; ke1 - PMHx: 23:22 CHF; COPD; Hypertension; Myocardial infarction; ke1 - Immunization history:: Adult Immunizations not up to date. - Social history:: Smoking status: Patient reports the use of cigarette tobacco products, smokes one pack cigarettes per day. ROS: 23:25 Eyes: Negative for injury, pain, redness, and discharge. cp 23:25 Constitutional: Negative for body aches, chills, fever, poor PO intake. 23:25 ENT: Negative for drainage from ear(s), ear pain, sore throat, difficulty swallowing, difficulty handling secretions. 23:25 Cardiovascular: Negative for chest pain, edema, palpitations. 23:25 Respiratory: Positive for shortness of breath, at rest. wheezing. 23:25 Abdomen/GI: Negative for vomiting, diarrhea, constipation. 23:25 Back: Negative for pain at rest, pain with movement. 23:25 Neuro: Negative for altered mental status, dizziness, headache, syncope, weakness. 23:25 All other systems are negative. Exam: 23:30 Constitutional: The patient appears alert, awake, non-diaphoretic, non-toxic, well cp developed, well nourished, in obvious distress, moderately distressed. 23:30 Head/Face: Normocephalic, atraumatic. cp 23:30 Eyes: Periorbital structures: appear normal, Conjunctiva: normal, no exudate, no injection, Sclera: no appreciated abnormality, Lids and lashes: appear normal, bilaterally. 23:30 ENT: External ear(s): are unremarkable, Nose: is normal, Mouth: Lips: moist, Oral mucosa: pink and intact, moist, Posterior pharynx: Airway: no evidence of obstruction, patent. 23:30 Neck: ROM/movement: is normal, is supple, without pain, no range of motions limitations, no meningismus. 23:30 Chest/axilla: Inspection: normal, Palpation: is normal, no crepitus, no tenderness. 23:30 Cardiovascular: Rate: bradycardic, Rhythm: regular, Edema: is not appreciated, JVD: is not appreciated. 23:30 Respiratory: the patient does not display signs of respiratory distress, Respirations: normal, no use of accessory muscles, no retractions, labored breathing, is not present, Breath sounds: decreased breath sounds, that are mild, diffuse, stridor, is not appreciated, wheezing: that is moderate, is heard diffusely. 23:30 Abdomen/GI: Inspection: abdomen appears normal, Bowel sounds: active, all quadrants, Palpation: abdomen is soft and non-tender, in all quadrants. 23:30 Back: pain, is absent, ROM is normal. 23:30 Skin: cellulitis, is not appreciated, no rash present. 23:30 Neuro: Orientation: to person, place \\T\\ time. Mentation: is normal, Cerebellar function: is grossly normal, Motor: moves all fours, strength is normal, Sensation: is normal. 01/10 01:50 ECG was reviewed by the Attending Physician. cp Vital Signs: 01/09 23:14 BP 120 / 74; Pulse 58; Resp 25; Temp 97.8; Pulse Ox 94% on 3 lpm NC; Weight 83.91 kg; ke1 Height 6 ft. (182.88 cm); Pain 0/10; 01/10 03:26 BP 108 / 52; Pulse 61; Resp 20; Pulse Ox 100% on 2 lpm NC; ll3 03:35 BP 117 / 57; Pulse 53; Resp 17; Pulse Ox 100% ; Pain 0/10; ke1 01/09 23:14 Body Mass Index 25.09 (83.91 kg, 182.88 cm) ke1 Procedures: 01:06 Peripheral line: by aseptic technique a peripheral line was placed in the left external cp jugular vein. MDM: 01/09 23:38 Patient medically screened. 01/10 00:00 Differential diagnosis: Bronchitis CHF exacerbation, Chronic Obstructive Pulmonary cp Disease Myocardial Infarction pneumonia, Pneumothorax pulmonary edema, Pulmonary Embolism Sepsis. 02:15 Data reviewed: vital signs, nurses notes, lab test result(s), EKG, radiologic studies, cp plain films. 02:15 Test interpretation: by ED physician or midlevel provider: ECG, plain radiologic cp studies. Post IV fluid administration reassessment for Sepsis: Client not prescribed the 30 mL/kg IVF due to: concern for heart failure. Sepsis focused reassessment complete. Focused Assessment performed: January 11, 2022 at 02:00 Heart: Regular rate/rhythm noted. Bradycardia noted. Lungs: wheezes resolved Current vital signs reviewed: Yes. Neuro: no change Cardio: Cardiovascular examination improved from previous exam. Heart rate and blood pressure have improved. Respiratory: Respiratory exam improved from previous exam. Counseling: I had a detailed discussion with the patient and/or guardian regarding: the historical points, exam findings, and any diagnostic results supporting the discharge/admit diagnosis, lab results, radiology results, the need for further work-up and treatment in the hospital. Response to treatment: the patient's symptoms have markedly improved after treatment. 01/09 23:14 Order name: Basic Metabolic Panel; Complete Time: 01:09 01/10 01:09 Interpretation: Normal except: GLUC 138; BUN 31; CRE 2.62; GFR 26. 01/09 23:14 Order name: CBC with Diff; Complete Time: 02:13 01/10 01:31 Interpretation: Normal except: WBC 29.4; JESSICA% 82.2; LYM% 11.4; NEUT A 24.2; MNA 1.5. 01/09 23:14 Order name: LFT's; Complete Time: 01:09 01/10 01:09 Interpretation: Normal except: AST 12; ALB 3.3; GLOB 3.6; A/G 0.9. 01/09 23:14 Order name: Magnesium; Complete Time: 01:09 01/09 23:14 Order name: NT PRO-BNP; Complete Time: 01:09 01/10 01:10 Interpretation: Abnormal: NT PRO-BNP 2600. 01/09 23:14 Order name: PT-INR; Complete Time: 01:09 01/09 23:14 Order name: Troponin HS; Complete Time: 01:09 01/09 23:18 Order name: Blood Culture Adult (2) 01/09 23:18 Order name: Lactate; Complete Time: 01:09 01/10 01:32 Interpretation: LAC 1.3; Reviewed. 01/09 23:18 Order name: Procalcitonin; Complete Time: 01:31 01/10 01:09 Order name: COVID-19 SARS RT PCR (Document "Date of Onset" if Symptomatic) 01/10 01:09 Order name: Influenza Screen (a \\T\\ B) 01/10 02:07 Order name: Manual Differential; Complete Time: 02:13 EDNY 01/09 23:14 Order name: XRAY Chest (1 view) 01/09 23:14 Order name: EKG; Complete Time: 23:14 01/09 23:14 Order name: Cardiac monitoring; Complete Time: 23:43 01/09 23:14 Order name: EKG - Nurse/Tech; Complete Time: 23:43 01/10 03:27 Order name: 60g Consistent Carbohydrate (ADA 1800/2000) EDNY 01/10 03:27 Order name: Basic Metabolic Panel [facility] 01/10 03:27 Order name: Basic Metabolic Panel [facility] 01/10 03:27 Order name: CBC with Automated Diff [facility] 01/10 03:27 Order name: CBC with Automated Diff [facility] 01/09 23:14 Order name: IV Saline Lock; Complete Time: 01:06 01/09 23:14 Order name: Labs collected and sent; Complete Time: 01:06 01/09 23:14 Order name: O2 Per Protocol; Complete Time: 23:43 01/09 23:14 Order name: O2 Sat Monitoring; Complete Time: 23:43 cp EC:50 Rate is 50 beats/min. Rhythm is regular. MT interval is normal. QRS interval is cp prolonged at 134 msec. QT interval is normal. T waves are Inverted in leads I, II, III, aVF, V2, V3, V4, V5, V6. Interpreted by me. Reviewed by me. Administered Medications: 01:25 Drug: Zofran (Ondansetron) 4 mg Route: IVP; Site: left jugular; ll3 01:25 Drug: SOLU-Medrol (methylPrednisoLONE) 125 mg Route: IVP; Site: left jugular; ll3 01:25 Drug: Albuterol - atroVENT (ipratropium) (3:1) (2.5 mg - 0.5 mg) 3 ml Route: Nebulizer; ll3 01:26 Drug: Aspirin Chewable Tablet 324 mg Route: PO; ll3 02:24 Drug: Rocephin - (cefTRIAXone) 1 grams Route: IVPB; Infused Over: 30 mins; Site: left ll3 jugular; 02:24 Drug: Zithromax (azithromycin) 500 mg Route: IVPB; Infused Over: 1 hrs; Site: left ll3 jugular; 02:24 Drug: Lasix (furosemide) 20 mg Route: IVP; Site: left jugular; ll3 Disposition: 07:00 Co-signature as Attending Physician, Amado Styles MD. [email or web address] Disposition Summary: 01/10/22 02:20 Hospitalization Ordered Hospitalization Status: Inpatient Admission cp Provider: Saqib Martinez cp [facility] cp Condition: Stable cp Problem: new cp Symptoms: have improved cp Bed/Room Type: Standard cp Room Assignment: 212(01/10/22 03:59) mw Diagnosis - Unspecified combined systolic (congestive) and diastolic (congestive) heart failure cp - Other pneumonia, unspecified organism cp - COPD/ Chronic obstructive pulmonary disease with (acute) exacerbation cp - Hypoxemia cp - Unspecified kidney failure cp Forms: - Medication Reconciliation Form cp - SBAR form cp Signatures: Dispatcher [employer] EDNY Radha Magana RN RN mw Page, Corey, PA PA cp Amado Styles MD MD mh7 Roscoe Castro RN RN ll3 Aurelia Calderon RN RN ke1 Corrections: (The following items were deleted from the chart) 01:08 01:06 This 71 yrs old Male presents to ER via EMS with complaints of Shortness of cp Breath. cp 01:31 01:31 Normal except: WBC 29.4. cp cp 01:31 01:31 Normal except: WBC 29.4; JESSICA% 82.2; LYM% 11.4; NEUT A 24.2. cp cp 02:08 01:32 CBC Smear Scan ordered. EDNY EDMS 03:59 02:20 cp mw 01/11 02:03 01/10 23:25 Constitutional: Negative for body aches, chills, fever, poor PO intake, cp cp 01/11 02:03 01/10 23:25 Cardiovascular: Negative for chest pain, edema, palpitations, cp cp 01/11 02:03 01/10 23:25 Respiratory: Positive for shortness of breath, at rest. wheezing, cp cp 01/11 02:03 01/10 23:25 Eyes: Negative for injury, pain, redness, and discharge, cp cp 01/11 02:03 01/10 23:25 ENT: Negative for drainage from ear(s), ear pain, sore throat, difficulty cp swallowing, difficulty handling secretions, cp 01/11 02:03 01/10 23:25 Abdomen/GI: Negative for vomiting, diarrhea, constipation, cp cp 01/11 02:03 01/10 23:25 Back: Negative for pain at rest, pain with movement, cp cp 01/11 02:03 01/10 23:25 Neuro: Negative for altered mental status, dizziness, headache, syncope, cp weakness, cp 01/11 02:03 01/10 23:25 All other systems are negative, cp cp
[2022-01-10] MEDS ORDERED: ACETAMINOPHEN 500 MG TAB PO PRN (03:21)
[2022-01-10] MEDS ORDERED: ONDANSETRON 4 MG/2 ML VIAL IV PRN (03:21)
[2022-01-10] MEDS ORDERED: AZITHROMYCIN 250 MG TAB PO ONE (03:41)
--- NOTE | 2022-01-10 03:43 | P.HP ---
Certification for Inpatient Patient admitted to: Inpatient With expected LOS: >2 Midnights Practitioner: I am a practitioner with admitting privileges, knowledge of patient current condition, hospital course, and medical plan of care. Services: Services provided to patient in accordance with Admission requirements found in Title 42 Section 412.3 of the Code of Federal Regulations Patient History Date of Service: 01/10/22 Reason for admission: Pneumonia, COPD exacerbation History of Present Illness: 71-year-old male patient with a medical history significant for hypertension, hyperlipidemia, and coronary artery disease, COPD for which she is on inhalational therapy who came to the emergency with complaint of shortness of breath episode. He also have cough productive of sputum. He denied overt episode of fever but does have chills. He denies nausea, vomiting. Labs done in the emergency room was significant for elevated white cell of 29,000 and chest x-ray was slightly concerning for infectious process. He was started on antibiotic therapy and he was admitted for inpatient care. He denied overt episode of chest pain, diarrhea. He denies headache. Allergies No Known Allergies Allergy (Verified 05/20/12 16:57) Home Medications: Atorvastatin Calcium [Lipitor] 40 mg PO BEDTIME #30 tab 07/26/18 Clopidogrel Bisulfate [Plavix] 75 mg PO DAILY #30 tablet 07/26/18 Furosemide [Lasix] 40 mg PO DAILY #7 tablet 07/26/18 Metoprolol Tartrate [Lopressor*] 25 mg PO BID #60 tab 07/26/18 lisinopriL [Prinivil*] 10 mg PO DAILY #30 tab 07/26/18 Albuterol Neb [Proventil 0.083% Neb Soln] 2.5 mg NEB [id number] PRN #60 amp 08/23/21 Amlodipine [Norvasc*] 5 mg PO DAILY #30 tab 08/23/21 Calcitrol [Rocaltrol*] 0.5 mcg PO DAILY #30 cap 08/23/21 Cholecalciferol (Vitamin D3) [Vitamin D 5,000 IU Cap*] 5,000 unit PO DAILY #30 cap 08/23/21 Ipratropium Neb [Atrovent*] 0.5 mg NEB [id number] PRN #60 amp 08/23/21 Fluticasone/Salmeterol [Advair Hfa 115-21 Mcg Inhaler] 8 gm IH BID 30 Days #30 aer.w.adap 10/19/21 Prednisone [Sterapred Ds] 10 mg PO BID 9 Days #21 tab.ds.pk 10/19/21 - Past Medical/Surgical History Diabetic: No -: HTN -: COPD -: [place] -: CAD -: heart stent - Family History Father -: GI disease, Other (see notes) Notes: Heart attack Mother -: Cancer Notes: COPd - Social History Alcohol use: No CD- Drugs: No Caffeine use: Yes Review of Systems General: Chills, Malaise Eyes: Unremarkable ENT: Unremarkable Respiratory: Cough, Shortness of Breath, Sputum Cardiovascular: Unremarkable Gastrointestinal: Unremarkable Genitourinary: Unremarkable Musculoskeletal: Unremarkable Integumentary: Unremarkable Neurological: Unremarkable Physical Examination - Physical Exam General: Alert, Oriented x3 HEENT: Atraumatic, Normocephalic Neck: Supple Respiratory: Diminished Cardiovascular: Regular rate/rhythm, Normal S1 S2 Gastrointestinal: Soft and benign Neurological: Normal speech - Studies Laboratory Data (last 24 hrs) 01/10/22 01:05: WBC 29.4 H*, Hgb 14.8, Hct 44.1, Plt Count 216 01/10/22 00:18: PT 10.2, INR 0.93 01/10/22 00:18: Sodium 138, Potassium 4.3, BUN 31 H, Creatinine 2.62 H, Glucose 138 H, Magnesium 2.7 H D, Total Bilirubin 0.3, AST 12 L, ALT 19, Alkaline Phosphatase 87 Microbiology Data (last 24 hrs): 01/10/22 01:20 Nasopharnyx Influenza Type A Antigen Screen - Final 01/10/22 01:20 Nasopharnyx Influenza Type B Antigen Screen - Final Assessment and Plan - Plan COPD with exacerbation Diabetes type 2 Hypertension Hyperlipidemia Pneumonia Leukemoid reaction Plan: Patient is a significant elevated white cell secondary to infectious process. Chest x-rays concerning for pneumonia. Will continue empiric antibiotic with Rocephin and azithromycin. Continue albuterol for management of here fluid restriction. Will continue to monitor vitals per unit protocol and antihypertensive medication. Will continue to monitor blood sugar AC and at bedtime and continue insulin for hyperglycemia management. We will monitor labs and clinical symptoms closely. Prophylaxis: Lovenox for DVT prophylaxis CODE STATUS: Full code Disposition: Pending resolution of pneumonia/COPD exacerbation. - Advance Directives Does patient have a Living Will: No Does patient have a Durable POA for Healthcare: No
[2022-01-10] MEDS ORDERED: AZITHROMYCIN 250 MG TAB ONE (04:44)
[2022-01-10 06:00] VITALS: BMI 22.0
[2022-01-10] MEDS ORDERED: ALBUTEROL INHALER 60 PUFF/8 GM IH PRN (06:18)
[2022-01-10] MEDS ORDERED: ALBUTEROL 2.5 MG/3 ML NEB SOL NEB PRN ×2 (07:19→18:51)
[2022-01-10] MEDS: HEPARIN 5000 UNIT/ML 1 ML VIAL SQ SCH ×2 (08:32→16:31)
[2022-01-10] MEDS: INSULIN -REGULAR HUMAN 50 UNIT/0.5 ML ML SQ SCH ×3 (08:34→16:30)
[2022-01-10] MEDS ORDERED: CEFTRIAXONE 1,000 MG in NA CHLORIDE 0.9% 50 ML IVPB SCH (09:00)
--- NOTE | 2022-01-10 19:02 | P.HP ---
Certification for Inpatient Patient admitted to: Inpatient With expected LOS: >2 Midnights Patient will require the following post-hospital care: None Practitioner: I am a practitioner with admitting privileges, knowledge of patient current condition, hospital course, and medical plan of care. Services: Services provided to patient in accordance with Admission requirements found in Title 42 Section 412.3 of the Code of Federal Regulations Patient History Date of Service: 01/10/22 Primary Care Provider: Anuj Reason for admission: Pneumonia, COPD exacerbation History of Present Illness: Patient of mine with a history of copd, nicotine dependence, htn and ckd stage 3. He was recently in the hospital for copd exacerbation. Was sent home on prednisone. He has been stating previously that he has stopped smoking. However the patient on this admission admits to smoking 2 cigarettes a day. He has been trying to quit. He came in sob and cough. Was admitted being treated for a penumonia. The patient has no cough or fevers. He had one elevated sugar. However no history of diabetes. Allergies No Known Allergies Allergy (Verified 05/20/12 16:57) Home Medications: Amlodipine Besylate 5 mg PO DAILY 01/10/22 Furosemide 40 mg PO DAILY 01/10/22 carvediloL [Carvedilol] 6.25 mg PO BID 6AM 6PM 01/10/22 lisinopriL [Lisinopril] 40 mg PO DAILY 01/10/22 predniSONE [Deltasone] 10 mg PO BID 01/10/22 - Past Medical/Surgical History Has patient received pneumonia vaccine in the past: Yes Diabetic: No -: HTN -: COPD -: [place] -: CAD -: heart stent - Family History Father -: GI disease, Other (see notes) Notes: Heart attack Mother -: Cancer Notes: COPd - Social History Smoking Status: Current some day smoker Alcohol use: No CD- Drugs: No Caffeine use: Yes Place of Residence: Home Review of Systems 10-point ROS is otherwise unremarkable Respiratory: SOB with Excertion Physical Examination - Vital Signs Temperature: 98.2 F Blood Pressure: 150/68 Pulse: 68 Respirations: 16 Pulse Ox (%): 96 - Physical Exam General: Alert, In no apparent distress HEENT: Atraumatic, PERRLA, Mucous membr. moist/pink, EOMI, Sclerae nonicteric Neck: Supple, 2+ carotid pulse no bruit, No LAD, Without JVD or thyroid abnormality Respiratory: Diminished, Expiratory wheezes Cardiovascular: Regular rate/rhythm, Normal S1 S2 Gastrointestinal: Normal bowel sounds, No tenderness Musculoskeletal: No tenderness Integumentary: No rashes Neurological: Normal gait, Normal speech, Normal strength at 5/5 x4 extr, Normal tone, Normal affect Lymphatics: No axilla or inguinal lymphadenopathy - Studies Laboratory Data (last 24 hrs) 01/10/22 01:05: WBC 29.4 H*, Hgb 14.8, Hct 44.1, Plt Count 216 01/10/22 00:18: PT 10.2, INR 0.93 01/10/22 00:18: Sodium 138, Potassium 4.3, BUN 31 H, Creatinine 2.62 H, Glucose 138 H, Magnesium 2.7 H D, Total Bilirubin 0.3, AST 12 L, ALT 19, Alkaline Phosphatase 87 Microbiology Data (last 24 hrs): 01/10/22 01:20 Nasopharnyx Influenza Type A Antigen Screen - Final 01/10/22 01:20 Nasopharnyx Influenza Type B Antigen Screen - Final Assessment and Plan - Problems (Diagnosis) (1) Acute bronchitis with COPD Current Visit: No Status: Acute Plan: will stop the antibiotics. Start him on steroids and breathing treatment. (2) CKD (chronic kidney disease) stage 3, GFR 30-59 ml/min Current Visit: No Status: Acute Plan: start him on gentle fluid hydration. His baseline creatine is 2.1. Will keep monitoring at this time. Qualifiers: Chronic kidney disease stage 3 subtype: stage 3b (GFR 30-44) Qualified Co de(s): N18.32 - Chronic kidney disease, stage 3b (3) HTN (hypertension) Current Visit: No Status: Acute Plan: restart his amlodpine and lisinopril at this time. Qualifiers: Hypertension type: primary hypertension (4) Nicotine dependence Current Visit: No Status: Acute Plan: He does not want a nicotine patch. have discussed smoking cessation. Which is the reason for his frequent hospitalization Qualifiers: Nicotine product type: cigarettes Discharge Plan: Home Plan to discharge in: 24 Hours - Advance Directives Does patient have a Living Will: No Does patient have a Durable POA for Healthcare: No - Code Status/Comfort Care Code Status Assessed: No Physician Review: Patient Assessed, Agree with Above Assessment and Plan Critical Care: No Time Spent Managing Pts Care (In Minutes): 45
[2022-01-10] MEDS: NA CHLORIDE 0.9% 1,000 ML IV SCH (22:27)
[2022-01-11] MEDS: dexAMETHasone 4 MG/ML VIAL IV SCH ×3 (03:02→16:06)
[2022-01-11 06:05] LABS: Absolute Lymphocytes (CBC) 2.3 K/uL (0.7-4.9); Hematocrit 37.6 % (39.6-49.0); Lymphocytes % 9.1 % (15.3-44.8); MCV 91.7 fL (80-100); MPV 8.6 fL (7.6-11.3); RBC Red Blood Cell Count 4.11 M/uL (4.33-5.43)
[2022-01-11 06:19] LABS: Potassium 4.9 mmol/L (3.5-5.1)
[2022-01-11] MEDS: AMLODIPINE 5 MG TAB PO SCH (08:11)
[2022-01-11] MEDS: lisinopriL 20 MG TAB PO SCH (08:11)
[2022-01-11] MEDS: AZITHROMYCIN 250 MG TAB PO SCH (08:11)
[2022-01-11] MEDS: NA CHLORIDE 0.9% 1,000 ML IV SCH (08:13)
--- NOTE | 2022-01-11 12:29 | P.PN ---
Subjective Date of Service: 01/11/22 Primary Care Provider: Anuj Chief Complaint: Pneumonia, COPD exacerbation Subjective: Improving (wheezing improved.) Review of Systems 10-point ROS is otherwise unremarkable Respiratory: SOB with Excertion Physical Examination - Vital Signs Temperature: 98.1 F Blood Pressure: 133/63 Pulse: 60 Respirations: 17 Pulse Ox (%): 95 - Physical Exam General: Alert, In no apparent distress HEENT: Atraumatic, PERRLA, EOMI Neck: Supple, JVD not distended Respiratory: Clear to auscultation bilaterally, Normal air movement Cardiovascular: Regular rate/rhythm, Normal S1 S2 Gastrointestinal: Normal bowel sounds, No tenderness Musculoskeletal: No tenderness Integumentary: No rashes Neurological: Normal speech, Normal tone, Normal affect Lymphatics: No axilla or inguinal lymphadenopathy - Studies Microbiology Data (last 24 hrs): 01/10/22 00:18 Blood - Blood Anaerobic Blood Culture - Final Assessment And Plan - Current Problems (Diagnosis) (1) Acute bronchitis with COPD Current Visit: No Status: Acute Plan: will stop the antibiotics. Start him on steroids and breathing treatment. 01/11 Patient is improving. Still had some wheezing (2) CKD (chronic kidney disease) stage 3, GFR 30-59 ml/min Current Visit: No Status: Acute Plan: start him on gentle fluid hydration. His baseline creatine is 2.1. Will keep monitoring at this time. 01/11 Patient has improving creatine. Will continue his fluids. Qualifiers: Chronic kidney disease stage 3 subtype: stage 3b (GFR 30-44) Qualified Code(s): N18.32 - Chronic kidney disease, stage 3b (3) HTN (hypertension) Current Visit: No Status: Acute Plan: restart his amlodpine and lisinopril at this time. Qualifiers: Hypertension type: primary hypertension (4) Nicotine dependence Current Visit: No Status: Acute Plan: He does not want a nicotine patch. have discussed smoking cessation. Which is the reason for his frequent hospitalization Qualifiers: Nicotine product type: cigarettes Discharge Plan: Home Plan to discharge in: 24 Hours - Code Status/Comfort Care Code Status Assessed: No Physician Review: Patient Assessed, Agree with Above Assessment and Plan Critical Care: No Time Spent Managing PTS Care (In Minutes): 20
--- NOTE | 2022-01-11 12:44 | EKG ---
Test Date: 2022-01-10 Test Time: 01:44:57 Senior Enlisted Advisor: LAKISHA MEASUREMENT RESULTS: Intervals: Rate: 53 MI: 162 QRSD: 128 QT: 462 QTc: 433 [place]: P: 88 MI: 162 QRS: -13 T: 244 INTERPRETIVE STATEMENTS: Sinus bradycardia with sinus arrhythmia Nonspecific intraventricular block T wave abnormality, consider inferior ischemia T wave abnormality, consider anterolateral ischemia Abnormal ECG Compared to ECG 10/17/2021 06:20:46 T-wave abnormality now present Sinus rhythm no longer present Myocardial infarct finding no longer present ST (T wave) deviation no longer present Possible ischemia still present Electronically Signed On 01-11-22 12:41:36 CDT by Jerardo Hussein
--- NOTE | 2022-01-11 12:44 | EKG ---
Test Date: 2022-01-10 Test Time: 01:45:22 Mft: LAKISHA MEASUREMENT RESULTS: Intervals: Rate: 50 NC: 144 QRSD: 134 QT: 480 QTc: 437 [place]: P: 92 NC: 144 QRS: -14 T: 248 INTERPRETIVE STATEMENTS: Sinus bradycardia Nonspecific intraventricular block Inferior infarct, age undetermined T wave abnormality, consider anterolateral ischemia Abnormal ECG Compared to ECG 01/10/2022 01:44:57 Myocardial infarct finding now present Sinus arrhythmia no longer present T-wave abnormality still present Possible ischemia still present Electronically Signed On 01-11-22 12:41:27 CDT by Jerardo Hussein
--- NOTE | 2022-01-11 14:42 | RAD REPORT ---
EXAM DESCRIPTION: Single view AP chest radiograph(s). CLINICAL HISTORY: SOB. COMPARISON: Chest radiograph from October 05, 2021. TECHNIQUE: Single view AP chest radiograph(s). FINDINGS: Small right-sided pleural effusion. Small streaky opacity in the right lower lung, possibl y slightly more prominent as compared to prior. No pneumothorax. Nonenlarged cardiomediastinal silhou ette. No significant osseous abnormality. IMPRESSION: Small right-sided pleural effusion. Small streaky opacity in the right lower lung, possi faye more prominent as compared to September 2021. Recommend correlation with CT chest when clinically aaron ropriate. Electronically signed by: Josefa Chanel MD 01/10/2022 12:52 AM CDT Due to temporary technical issues with the PACS/Fluency reporting system, reports are being signed by the in house radiologists without review as a courtesy to insure prompt reporting. The interpreting radiologist is fully responsible for the content of the report.
[2022-01-11] MEDS ORDERED: ALBUTEROL 2.5 MG/3 ML NEB SOL NEB PRN (16:00)
[2022-01-11] MEDS ORDERED: ENOXAPARIN 30 MG/0.3 ML SQ SCH (17:00)
[2022-01-12] MEDS: dexAMETHasone 4 MG/ML VIAL IV SCH ×2 (00:41→08:08)
[2022-01-12 01:03] VITALS: O2SAT 96
[2022-01-12 04:56] VITALS: TEMP 98.3
[2022-01-12 08:04] VITALS: BP 149/68
[2022-01-12] MEDS: lisinopriL 20 MG TAB PO SCH (08:07)
[2022-01-12] MEDS: AZITHROMYCIN 250 MG TAB PO SCH (08:07)
[2022-01-12] MEDS: AMLODIPINE 5 MG TAB PO SCH (08:08)
--- NOTE | 2022-01-12 08:21 | P.DS ---
Admission Date: 01/10/22 Discharge Date: 01/12/22 Primary Care Provider: Anuj Disposition: ROUTINE DISCHARGE Discharge Condition: GOOD Reason for Admission: Pneumonia, COPD exacerbation - Problems (1) Acute bronchitis with COPD Current Visit: No Status: Acute (2) CKD (chronic kidney disease) stage 3, GFR 30-59 ml/min Current Visit: No Status: Acute Qualifiers: Chronic kidney disease stage 3 subtype: stage 3b (GFR 30-44) Qualified Code(s): N18.32 - Chronic kidney disease, stage 3b (3) HTN (hypertension) Current Visit: No Status: Acute Qualifiers: Hypertension type: primary hypertension (4) Nicotine dependence Current Visit: No Status: Acute Qualifiers: Nicotine product type: cigarettes Brief History of Present Illness: Patient of mine with a history of copd, nicotine dependence, htn and ckd stage 3. He was recently in the hospital for copd exacerbation. Was sent home on prednisone. He has been stating previously that he has stopped smoking. However the patient on this admission admits to smoking 2 cigarettes a day. He has been trying to quit. He came in sob and cough. Was admitted being treated for a penumonia. The patient has no cough or fevers. He had one elevated sugar. However no history of diabetes. Hospital Course: Patient was admitted for copd exacerbation. He improved on steroids and breathing treatments. Will discharge. Hopefully he will stop smoking and follow up with me in the office. Vital Signs/Physical Exam: Temp Pulse Resp BP Pulse Ox 98.3 F 54 18 149/68 H 96 01/12/22 08:00 01/12/22 08:00 01/12/22 08:00 01/12/22 08:00 01/12/22 08:00 General: Alert, In no apparent distress HEENT: Atraumatic, PERRLA, EOMI Neck: Supple, JVD not distended Respiratory: Clear to auscultation bilaterally, Normal air movement Cardiovascular: Regular rate/rhythm, Normal S1 S2 Gastrointestinal: Normal bowel sounds, No tenderness Musculoskeletal: No tenderness Integumentary: No rashes Neurological: Normal speech, Normal tone, Normal affect Lymphatics: No axilla or inguinal lymphadenopathy Laboratory Data at Discharge: WBC 25.3 K/uL (4.3-10.9) H* 01/11/22 05:43 Hgb 12.7 g/dL (13.6-17.9) L 01/11/22 05:43 Hct 37.6 % (39.6-49.0) L 01/11/22 05:43 Plt Count 220 K/uL (152-406) 01/11/22 05:43 PT 10.2 SECONDS (9.5-12.5) 01/10/22 00:18 INR 0.93 01/10/22 00:18 Sodium 135 mmol/L (136-145) L 01/11/22 05:43 Potassium 4.9 mmol/L (3.5-5.1) 01/11/22 05:43 BUN 39 mg/dL (7-18) H 01/11/22 05:43 Creatinine 2.30 mg/dL (0.55-1.3) H 01/11/22 05:43 Glucose 166 mg/dL (74-106) H 01/11/22 05:43 Magnesium 2.7 mg/dL (1.8-2.4) H D 01/10/22 00:18 Total Bilirubin 0.3 mg/dL (0.2-1.0) 01/10/22 00:18 AST 12 U/L (15-37) L 01/10/22 00:18 ALT 19 U/L (12-78) 01/10/22 00:18 Alkaline Phosphatase 87 U/L (45-117) 01/10/22 00:18 Home Medications: Amlodipine Besylate 5 mg PO DAILY 01/10/22 Furosemide 40 mg PO DAILY 01/10/22 carvediloL [Carvedilol] 6.25 mg PO BID 6AM 6PM 01/10/22 lisinopriL [Lisinopril] 40 mg PO DAILY 01/10/22 predniSONE [Deltasone*] 10 mg PO BID 9 Days #21 tab 01/12/22 New Medications: predniSONE [Deltasone*] 10 mg PO BID 9 Days #21 tab Diet: AHA Followup: Joesph Leslie MD [ACTIVE - CAN ADMIT] - 1 Week Time spent managing pt's care (in minutes): 20
--- OUTSIDE RECORDS SUMMARY | 2022-01-14 09:58 | XMS REPORT | Continuity of Care Document ---
:1950 Author Organization [facility] t Address [address] [place] [address] Care Team Providers Name Role Phone PCP, DOES NOT HAVE A Primary Care Physician Unavailable PAUL Attending Clinician Unavailable GELACIO BADILLO Attending Clinician Unavailable DAVIS Attending Clinician Unavailable Abeba LAU Attending Clinician Unavailable Abeba Lau MD Attending Clinician PRINCE LOPEZ Attending Clinician Unavailable PENNY Attending Clinician Unavailable JOHN Attending Clinician Unavailable GELACIO BADILLO Admitting Clinician Unavailable Payers Payer Name Policy Type Policy Number Effective Date Expiration Date S rosio [facility] [id number] 2020 (MEDICARE 00:00:00 REPLACEMENT HMO) [facility] [id number] [facility] 00:00:00 [facility] [id number] MEDICARE ADVANTAGE 00:00:00 PLAN Problems Condition Condition Condition Status Onset Resolution Last Treating Co mments Source Name Details Category Date Date Treatment Clinician Date Athscl Athscl Problem Active [facility] 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 Asbestos Asbestos Problem Active [facility] exposure exposure Physic i ans Loculated Loculated Problem Active [facility] pleural pleural Physici effusion effusion ans Centrilobu Centrilobu Problem Active U T lar lar Physici emphysema emphysema ans No known No known Disease Unive rs active active ity of problems problems [facility] Allergies, Adverse Reactions, Alerts Allergy Allergy Status Severity Reaction(s) Onset Inactive Treating Comm ents Source Name Type Date Date Clinician NO KNOWN Allergy Active [facility] ALLERGIE S NO KNOWN Drug Active [facility] ALLERGIE Class ity of [place] [facility] [place] Social History Social Habit Start Date Stop Date Quantity Comments Source Exposure to Yes [facility] SARS-CoV-2 (event) Medica l Branch Sex Assigned At [birth year] [facility] 00:00:00 00:00:00 Medical Branch Smoking Status Start Date Stop Date Source Smokes tobacco daily (finding) [facility] Physicians Unknown if ever smoked [facility] [place] Medications Ordered Filled Start Stop Current Ordering Indication Dosage Frequency Signature Comments Components Source Medication Medication Date Date Medication? Clinician (SIG) Name Name lisinopriL Yes [id number] 10mg Take 1 [facility] 10 mg 4-17 tablet by ity of tablet 00:00: mouth at [place] 00 bedtime. Medical Branch metoprolol Yes [id number] 25mg Take 1 [facility] tartrate 25 4-17 tablet by ity of mg tablet 00:00: mouth 2 [place] 00 (two) Medical times Branch daily. Spiriva Spiriva 2019-06 Yes SULEMA INHALE TWO UT Respimat Respimat 0-12 SALAS (2) PUFFS Physici 2.5 MCG/ACT 2.5 MCG/ACT 00:00: M.D. BY MOUTH ans Inhalation Inhalation 00 ONCE Aerosol Aerosol DAILY. Solution Solution Metoprolol Metoprolol 2012-06 Yes KHOI 1 Q0.5D TAKE 1 UT Tartrate 25 Tartrate 25 1-21 SDRINGOLA TABLET Physici MG Oral MG Oral 00:00: M.D. TWICE ans Tablet Tablet 00 DAILY Clopidogrel Clopidogrel Yes MARK 1 QD TAKE 1 UT Bisulfate Bisulfate 2-20 ENRIQUE M.D. TABLET Physici 75 MG Oral 75 MG Oral 00:00: DAILY. ans Tablet Tablet 00 Aspirin 325 Aspirin 325 2011-06 Yes 1 QD TAKE 1 UT MG Oral MG Oral 2-28 TABLET Physici Tablet Tablet 00:00: DAILY ans 00 Simvastatin Simvastatin 2011-06 Yes MARK 1 QD TAKE 1 UT 40 MG Oral 40 MG Oral 2-28 ENRIQUE M.D. TABLET Physici Tablet Tablet 00:00: DAILY. ans 00 Lisinopril Lisinopril 2011-06 Yes MARK 1 QD TAKE 1 UT 10 MG Oral 10 MG Oral 2-28 ENRIQUE M.D. TABLET Physici Tablet Tablet 00:00: DAILY. ans 00 Vital Signs Vital Name Observation Time Observation Value Comments Source WEIGHT 2021-11-11 81.5 kg 04:18:00 HEIGHT 2021-11-10 182.9 cm 04:48:00 WEIGHT 2021-11-10 78.8 kg 04:48:00 WEIGHT 2021-11-09 80.9 kg 04:10:00 HEIGHT 2021-11-08 182.9 cm 04:00:00 WEIGHT 2021-11-08 82 kg 04:00:00 WEIGHT 2021-11-11 81.5 kg 04:18:00 HEIGHT 2021-11-10 182.9 cm 04:48:00 WEIGHT 2021-11-10 78.8 kg 04:48:00 WEIGHT 2021-11-09 80.9 kg 04:10:00 HEIGHT 2021-11-08 182.9 cm 04:00:00 WEIGHT 2021-11-08 82 kg 04:00:00 Systolic blood 2021-10-11 181 mm[Hg] [facility] of pressure 10:44:00 [facility] Diastolic blood 2021-10-11 70 mm[Hg] [place] [facility] f pressure 10:44:00 [facility] Heart rate 2021-10-11 61 /min [facility] 10:44:00 [facility] Body temperature 2021-10-11 35.94 Leni [facility] 10:44:00 [facility] Respiratory rate 2021-10-11 20 /min [facility] 10:44:00 [facility] Body height 2021-10-11 182.9 cm [facility] 10:44:00 [facility] Body weight 2021-10-11 70.308 kg [facility] 10:44:00 [facility] BMI 2021-10-11 21.02 kg/m2 [facility] 10:44:00 [facility] Oxygen saturation 2021-10-11 97 /min [facility] Arterial blood 10:44:00 [facility] Pulse oximetry Branch Systolic blood 2020-04-16 141 mm[Hg] Location: LUE; [facility] Physicia ns pressure 07:34:00 Position: Sitting Diastolic blood 2020-04-16 60 mm[Hg] Location: LUE; [facility] Physici ans pressure 07:34:00 Position: Sitting Weight 2020-04-16 173.125 [lb_av] [facility] Physician s 07:34:00 Body mass index 2020-04-16 22.23 kg/m2 [facility] Physician s (BMI) [Ratio] 07:34:00 Body temperature 2020-04-16 97.2 [degF] Method: [facility] Physicia ns 07:34:00 Tympanic Heart Rate 2020-04-16 59 /min Location: L [facility] 07:34:00 Radial; Quality: Normal O2 SAT 2020-04-16 95 % Source: [facility] 07:34:00 Non-Rebreather Systolic blood 2020-04-07 137 mm[Hg] Location: RUE; [facility] Physicia ns pressure 14:12:00 Position: Sitting Diastolic blood 2020-04-07 74 mm[Hg] Location: RUE; [facility] Physici ans pressure 14:12:00 Position: Sitting Body height 2020-04-07 74 [in_us] [facility] 14:12:00 Weight 2020-04-07 171 [lb_av] [facility] 14:12:00 Body mass index 2020-04-07 21.96 kg/m2 [facility]ician s (BMI) [Ratio] 14:12:00 Body temperature 2020-04-07 97.8 [degF] [facility] Physicia ns 14:12:00 Heart Rate 2020-04-07 54 /min [facility] 14:12:00 Respiratory rate 2020-04-07 18 /min [facility] Physicia ns 14:12:00 O2 SAT 2020-04-07 97 % Source: [facility] 14:12:00 Procedures Procedure Date / Time Performed Performing Clinician [facility] e NOTICE OF PRIVACY 2021-10-11 10:30:05 [facility] Name Medical Branch CONSENT/REFUSAL FOR 2021-10-11 10:27:09 Doctor Unassigned, [facility] DI[facility] AND Name Medical Branch TREATMENT PET CT Lung solitary 2020-04-07 00:00:00 [facility] pulm nodule [id number] Plan of Care Planned Activity Planned Date Details Comments Source Diagnostic Test Pending 2020-04-07 00:00:[address] Lung solitary [facility] pulm nodule 21753 [code = 33510] Diagnostic Test Pending 2020-04-07 00:00:[address] Lung solitary [facility] pulm nodule 73079 [code = 79676] Encounters Start End Encounter Admission Attending Care Care Encounter Source Date/Time Date/Time Type Type Clinicians Facility Department ID 2022-01-08 2022-01-08 Outpatient DMG DMG [id number] [facility] 07:10:00 07:10:00 0715 Medica l Group 2021-12-09 2021-12-09 Outpatient FAYE MILLER [facility] [id number] [facility] 00:00:00 00:00:00 MAHBOOB 2021-11-08 2021-11-12 Inpatient ER DAVIS, [facility] Medical ICU [id number] [facility] 03:10:00 20:10:00 RICKIE 2021-10-11 2021-10-11 Emergency X YARIOH, [facility] ERT [id number] Univers 05:52:00 06:48:00 HARDEEP reedy [facility] 2021-10-11 2021-10-11 [facility] [id number] Univers 05:52:00 06:48:00 [id number] [id number] [facility] 084 Branch 2020-11-21 2020-11-21 Outpatient DMG DMG [id number] [facility] 08:00:00 08:00:00 0528 Medica l Group 2020-05-05 2020-05-05 Outpatient JOHN [facility] PUL [id number] [facility] 13:21:00 15:55:00 PASTORA 2020-04-15 2020-04-15 [facility] [id number] [place] 14:00:00 14:00:00 t; [facility] [place] 2020-04-07 2020-04-07 Appointmen DOLLY LOPEZ Pulmonary & [id number] [place] 13:30:00 13:30:00 t; PASTORA LOPEZ [facility] Physi Carlos GUILLORY M.D. Results Test Description Test Time Test Comments Results Result Comments Source BLOOD CULTURE 2021-11-13 07:00:32 Test Item Value Reference Range Interpretation Comme nts CULTURE (BEAKER) (test code = 1095) No growth in 5 days BLOOD [id number] 07:00:32 Test Item Value Reference Range Interpretation Comments CULTURE (BEAKER) (test No growth in 5 days code = 1095) POCT-GLUCOSE [id number] 16:01:13 Test Item Value Reference Range Interpretation Comments POC-GLUCOSE METER 136 mg/dL 70-110 H : TESTED A T [facility] [address] (BEAKER) (test code [address], = 1538) [place] [address]: Blood Collector/Techni [place] ID = [id number] for Cerv antes, Crystal POCT-GLUCOSE [id number] 11:30:14 Test Item Value Reference Range Interpretation Comments POC-GLUCOSE METER 112 mg/dL 70-110 H : TESTED A T [facility] [address] (BEAKER) (test code [address], = 1538) [place] [address] 478: Blood Collector/Techni [place] ID = [id number] for Cerv antes, Crystal POCT-GLUCOSE [id number] 06:45:43 Test Item Value Reference Range Interpretation Comments POC-GLUCOSE METER 150 mg/dL 70-110 H : TESTED A T [facility] [address] (BEAKER) (test code [address], = 1538) [place] [address] 478: Blood Collector/Techni [place] ID = [id number] for Taina Poe [id number] 06:05:04 Test Item Value Reference Range Interpretation Comments MAGNESIUM (BEAKER) (test code = 2.2 mg/dL 1.5-3.0 627) Blood Collector ID - [id number] ID - [id number] ID - [id number] ID - [id number] METABOLIC [id number] 06:04:06 Test Item Value Reference Range Interpretation Comments SODIUM (BEAKER) (test 134 meq/L 135-148 L code = 381) POTASSIUM (BEAKER) 5.0 meq/L 3.6-5.5 (test code = 379) CHLORIDE (BEAKER) 99 meq/L 98-106 (test code = 382) CO2 (BEAKER) (test 24 meq/L 20-29 code = 355) BLOOD UREA NITROGEN 63 mg/dL 10-26 H (BEAKER) (test code = 354) CREATININE (BEAKER) 1.97 mg/dL 0.50-1.20 H (test code = 358) GLUCOSE RANDOM 129 mg/dL 70-110 H (BEAKER) (test code = 652) CALCIUM (BEAKER) 8.4 mg/dL 8.5-10.5 L (test code = 697) EGFR (BEAKER) (test INSUFFIC IENT CLINICAL code = 1092) DATA TO CALCULA TE ESTIMATED GFR. Blood Collector ID - [id number] ID - [id number] ID - [id number] ID - [id number] ID - [id number] ID - [id number] ID - [id number] ID - [id number] ID - [id number] ID - [id number] W/PLT COUNT & AUTO DIFFERENTIAL 2021-11-12 05:53:41 Test Item Value Reference Range Interpretation Comments WHITE BLOOD CELL COUNT (BEAKER) 13.7 K/ L 4.0-10.0 H (test code = 775) RED BLOOD CELL COUNT (BEAKER) 4.07 M/ L 4.20-5.80 L (test code = 761) HEMOGLOBIN (BEAKER) (test code = 12.7 GM/DL 13.0-16.8 L 410) HEMATOCRIT (BEAKER) (test code = 36.7 % 36.0-50.0 411) MEAN CORPUSCULAR VOLUME (BEAKER) 90.2 fL 82.0-99.0 (test code = 753) MEAN CORPUSCULAR HEMOGLOBIN 31.2 pg 27.0-33.0 (BEAKER) (test code = 751) MEAN CORPUSCULAR HEMOGLOBIN CONC 34.6 GM/DL 32.0-36.0 (BEAKER) (test code = 752) RED CELL DISTRIBUTION WIDTH 15.2 % 12.0-15.0 H (BEAKER) (test code = 412) PLATELET COUNT (BEAKER) (test 211 K/CU MM 150-430 code = 756) MEAN PLATELET VOLUME (BEAKER) 10.6 fL 6.0-11.5 (test code = 754) NUCLEATED RED BLOOD CELLS 0 /100 WBC 0-0 (BEAKER) (test code = 413) NEUTROPHILS RELATIVE PERCENT 72 % (BEAKER) (test code = 429) LYMPHOCYTES RELATIVE PERCENT 19 % (BEAKER) (test code = 430) MONOCYTES RELATIVE PERCENT 6 % (BEAKER) (test code = 431) EOSINOPHILS RELATIVE PERCENT 0 % (BEAKER) (test code = 432) BASOPHILS RELATIVE PERCENT 0 % (BEAKER) (test code = 437) NEUTROPHILS ABSOLUTE COUNT 9.88 K/ L 1.80-8.00 H (BEAKER) (test code = 670) LYMPHOCYTES ABSOLUTE COUNT 2.60 K/ L 1.48-4.50 (BEAKER) (test code = 414) MONOCYTES ABSOLUTE COUNT (BEAKER) 0.85 K/ L 0.00-1.30 (test code = 415) EOSINOPHILS ABSOLUTE COUNT 0.00 K/ L 0.00-0.50 (BEAKER) (test code = 416) BASOPHILS ABSOLUTE COUNT (BEAKER) 0.04 K/ L 0.00-0.20 (test code = 417) IMMATURE GRANULOCYTES-RELATIVE 2 % 0-0 H PERCENT (BEAKER) (test code = 2801) POCT-GLUCOSE [id number] 21:50:33 Test Item Value Reference Range Interpretation Comments POC-GLUCOSE METER 173 mg/dL 70-110 H : TESTED A T [facility] [address] (BEAKER) (test code [facility], = 1538) [place] [address]: Blood Collector/Techni [place] ID = [id number] for Taina Poe POCT-GLUCOSE [id number] 16:45:23 Test Item Value Reference Range Interpretation Comments POC-GLUCOSE METER 134 mg/dL 70-110 H : TESTED A T [facility] [address] (BEAKER) (test code [facility], = 1538) [place] [address]: Blood Collector/Techni [place] ID = [id number] for Dapr emont, Heather POCT-GLUCOSE [id number] 11:45:21 Test Item Value Reference Range Interpretation Comments POC-GLUCOSE METER 125 mg/dL 70-110 H : TESTED A T [facility] [address] (BEAKER) ([facility] = [facility]38[facility] [place] [address] 478: Blood Collector/Techni [place] ID = [id number] for Dapr emont, Heather SPUTUM CULTURE + GRAM [id number] 08:54:21 Test Item Value Reference Range Interpretation Comments CULTURE (BEAKER) 4+ Normal respiratory (test code = 1095) luis eduardo present GRAM STAIN RESULT 1+ White blood cells (BEAKER) (test code = seen 1123) GRAM STAIN RESULT 1+ epithelial cells (BEAKER) (test code = 62012) GRAM STAIN RESULT 3+ Mixed luis eduardo (BEAKER) (test code = 26340) RAD, CHEST, 1 VIEW, NON [id number] 07:33:00Reason for exam:->[facility] : 1950 Sex: MFINAL REPORT CHEST AP PORTABLE SEMIERECT Comparison exam: 11/09/2021 History provided: Pneumonia Heart size normal. Chronic pleural thickening at the right base. Lungs free ofacute disease and vascularity normal. Signed: Triston Navarroort Verified Date/Time: 11/11/2021 07:33:28 Reading Location: [facility] Diagnostic Imaging Reading Room [place] [address] POCT-GLUCOSE [id number] 06:54:14 Test Item Value Reference Range Interpretation Comments POC-GLUCOSE METER 133 mg/dL 70-110 H : [facility] ([facility] (test code [address], = 1538) [facility] 77 478: Blood Collector/Techni [place] ID = [id number] for Taina Poe [id number] 04:53:42 Test Item Value Reference Range Interpretation Comments MAGNESIUM (BEAKER) (test code = 2.3 mg/dL 1.5-3.0 627) Blood Collector ID - [id number] ID - [id number] ID - [id number] ID - [id number] BASIC METABOLIC [id number] 04:52:53 Test Item Value Reference Range Interpretation Comments SODIUM (BEAKER) (test 136 meq/L 135-148 code = 381) POTASSIUM (BEAKER) 4.7 meq/L 3.6-5.5 (test code = 379) CHLORIDE (BEAKER) 100 meq/L 98-106 (test code = 382) CO2 (BEAKER) (test 25 meq/L 20-29 code = 355) BLOOD UREA NITROGEN 65 mg/dL 10-26 H (BEAKER) (test code = 354) CREATININE (BEAKER) 2.22 mg/dL 0.50-1.20 H (test code = 358) GLUCOSE RANDOM 137 mg/dL 70-110 H (BEAKER) (test code = 652) CALCIUM (BEAKER) 8.4 mg/dL 8.5-10.5 L (test code = 697) EGFR (BEAKER) (test INSUFFIC IENT CLINICAL code = 1092) DATA TO CALCULA TE ESTIMATED GFR. Blood Collector ID - [id number] ID - [id number] ID - [id number] ID - [id number] ID - [id number] ID - [id number] ID - [id number] ID - [id number] ID - [id number] ID - [id number] W/PLT COUNT & AUTO [id number] 04:28:30 Test Item Value Reference Range Interpretation Comments WHITE BLOOD CELL COUNT (BEAKER) 17.0 K/ L 4.0-10.0 H (test code = 775) RED BLOOD CELL COUNT (BEAKER) 4.10 M/ L 4.20-5.80 L (test code = 761) HEMOGLOBIN (BEAKER) (test code = 12.6 GM/DL 13.0-16.8 L 410) HEMATOCRIT (BEAKER) (test code = 36.4 % 36.0-50.0 411) MEAN CORPUSCULAR VOLUME (BEAKER) 88.8 fL 82.0-99.0 (test code = 753) MEAN CORPUSCULAR HEMOGLOBIN 30.7 pg 27.0-33.0 (BEAKER) (test code = 751) MEAN CORPUSCULAR HEMOGLOBIN CONC 34.6 GM/DL 32.0-36.0 (BEAKER) (test code = 752) RED CELL DISTRIBUTION WIDTH 15.4 % 12.0-15.0 H (BEAKER) (test code = 412) PLATELET COUNT (BEAKER) (test 218 K/CU MM 150-430 code = 756) MEAN PLATELET VOLUME (BEAKER) 10.2 fL 6.0-11.5 (test code = 754) NUCLEATED RED BLOOD CELLS 0 /100 WBC 0-0 (BEAKER) (test code = 413) NEUTROPHILS RELATIVE PERCENT 75 % (BEAKER) (test code = 429) LYMPHOCYTES RELATIVE PERCENT 15 % (BEAKER) (test code = 430) MONOCYTES RELATIVE PERCENT 8 % (BEAKER) (test code = 431) EOSINOPHILS RELATIVE PERCENT 0 % (BEAKER) (test code = 432) BASOPHILS RELATIVE PERCENT 0 % (BEAKER) (test code = 437) NEUTROPHILS ABSOLUTE COUNT 12.77 K/ L 1.80-8.00 H (BEAKER) (test code = 670) LYMPHOCYTES ABSOLUTE COUNT 2.55 K/ L 1.48-4.50 (BEAKER) (test code = 414) MONOCYTES ABSOLUTE COUNT (BEAKER) 1.34 K/ L 0.00-1.30 H (test code = 415) EOSINOPHILS ABSOLUTE COUNT 0.00 K/ L 0.00-0.50 (BEAKER) (test code = 416) BASOPHILS ABSOLUTE COUNT (BEAKER) 0.04 K/ L 0.00-0.20 (test code = 417) IMMATURE GRANULOCYTES-RELATIVE 2 % 0-0 H PERCENT (BEAKER) (test code = 2801) POCT-GLUCOSE [id number] 20:59:54 Test Item Value Reference Range Interpretation Comments POC-GLUCOSE METER 148 mg/dL 70-110 H : TESTED A T [facility] [address] (BEAKER) (test code [address], = 1538) [place] [address]: Blood Collector/Techni [place] ID = [id number] for Taina Poe POCT-GLUCOSE [id number] 15:51:00 Test Item Value Reference Range Interpretation Comments POC-GLUCOSE METER 156 mg/dL 70-110 H : TESTED A T [facility] [address] (BEAKER) (test code [address], = 1538) [facility] 77 478: Blood Collector/Techni [place] ID = [id number] for Shazia Scott POCT-GLUCOSE [id number] 11:44:26 Test Item Value Reference Range Interpretation Comments POC-GLUCOSE METER 139 mg/dL 70-110 H : TESTED A T [facility] [address] (BEAKER) (test code [address], = 1538) [facility] 77 478: Blood Collector/Techni [place] ID = [id number] for Shazia Scott BASIC METABOLIC [id number] 07:34:29 Test Item Value Reference Range Interpretation Comments SODIUM (BEAKER) (test 136 meq/L 135-148 code = 381) POTASSIUM (BEAKER) 4.8 meq/L 3.6-5.5 (test code = 379) CHLORIDE (BEAKER) 100 meq/L 98-106 (test code = 382) CO2 (BEAKER) (test 24 meq/L 20-29 code = 355) BLOOD UREA NITROGEN 62 mg/dL 10-26 H (BEAKER) (test code = 354) CREATININE (BEAKER) 2.21 mg/dL 0.50-1.20 H (test code = 358) GLUCOSE RANDOM 141 mg/dL 70-110 H (BEAKER) (test code = 652) CALCIUM (BEAKER) 8.2 mg/dL 8.5-10.5 L (test code = 697) EGFR (BEAKER) (test INSUFFIC IENT CLINICAL code = 1092) DATA TO CALCULA TE ESTIMATED GFR. Blood Collector ID - DSENSONOperator ID - DSENSONOperator ID - DSENSONOperator ID - DSENSONOperator ID - DSENSONOperator ID - DSENSONOperator ID - DSENSONOperator ID - DSENSONOperator ID - DSENSONOperator ID - DSENSONHEPATIC FUNCTION PANEL 2021-11-10 07:33:52 Test Item Value Reference Range Interpretation Comments TOTAL PROTEIN (BEAKER) (test code = 6.0 gm/dL 6.0-8.5 770) ALBUMIN (BEAKER) (test code = 1145) 3.4 g/dL 3.5-5.0 L BILIRUBIN TOTAL (BEAKER) (test code 0.4 mg/dL 0.1-1.2 = 377) BILIRUBIN DIRECT (BEAKER) (test 0.2 mg/dL 0.0-0.4 code = 706) ALKALINE PHOSPHATASE (BEAKER) (test 53 U/L 30-115 code = 346) AST (SGOT) (BEAKER) (test code = 12 U/L 5-40 353) ALT (SGPT) (BEAKER) (test code = 18 U/L 5-50 347) Blood Collector ID - DSENSONOperator ID - DSENSONOperator ID - DSENSONOperator ID - DSENSONOperator ID - DSENSONOperator ID - DSENSONOperator ID - DSENSONOperator ID - DSENSONOperator ID - DSENSONOperator ID - DSENSONCBC W/PLT COUNT & AUTO [id number] 07:19:24 Test Item Value Reference Range Interpretation Comments WHITE BLOOD CELL COUNT (BEAKER) 21.1 K/ L 4.0-10.0 H (test code = 775) RED BLOOD CELL COUNT (BEAKER) 4.20 M/ L 4.20-5.80 (test code = 761) HEMOGLOBIN (BEAKER) (test code = 12.9 GM/DL 13.0-16.8 L 410) HEMATOCRIT (BEAKER) (test code = 37.5 % 36.0-50.0 411) MEAN CORPUSCULAR VOLUME (BEAKER) 89.3 fL 82.0-99.0 (test code = 753) MEAN CORPUSCULAR HEMOGLOBIN 30.7 pg 27.0-33.0 (BEAKER) (test code = 751) MEAN CORPUSCULAR HEMOGLOBIN CONC 34.4 GM/DL 32.0-36.0 (BEAKER) (test code = 752) RED CELL DISTRIBUTION WIDTH 15.3 % 12.0-15.0 H (BEAKER) (test code = 412) PLATELET COUNT (BEAKER) (test 238 K/CU MM 150-430 code = 756) MEAN PLATELET VOLUME (BEAKER) 10.5 fL 6.0-11.5 (test code = 754) NUCLEATED RED BLOOD CELLS 0 /100 WBC 0-0 (BEAKER) (test code = 413) NEUTROPHILS RELATIVE PERCENT 82 % (BEAKER) (test code = 429) LYMPHOCYTES RELATIVE PERCENT 12 % (BEAKER) (test code = 430) MONOCYTES RELATIVE PERCENT 4 % (BEAKER) (test code = 431) EOSINOPHILS RELATIVE PERCENT 0 % (BEAKER) (test code = 432) BASOPHILS RELATIVE PERCENT 0 % (BEAKER) (test code = 437) NEUTROPHILS ABSOLUTE COUNT 17.31 K/ L 1.80-8.00 H (BEAKER) (test code = 670) LYMPHOCYTES ABSOLUTE COUNT 2.63 K/ L 1.48-4.50 (BEAKER) (test code = 414) MONOCYTES ABSOLUTE COUNT (BEAKER) 0.84 K/ L 0.00-1.30 (test code = 415) EOSINOPHILS ABSOLUTE COUNT 0.00 K/ L 0.00-0.50 (BEAKER) (test code = 416) BASOPHILS ABSOLUTE COUNT (BEAKER) 0.05 K/ L 0.00-0.20 (test code = 417) IMMATURE GRANULOCYTES-RELATIVE 1 % 0-0 H PERCENT (BEAKER) (test code = 2801) POCT-GLUCOSE [id number] 07:05:35 Test Item Value Reference Range Interpretation Comments POC-GLUCOSE METER 129 mg/dL 70-110 H : TESTED A T [facility] 131 ([facility]) (test code [facility], = 1538) [place] [address] 478: Blood Collector/Techni [place]ok[place] ID = [id number] for Anayeli ety, Ruth POCT-GLUCOSE [id number] 22:17:06 Test Item Value Reference Range Interpretation Comments POC-GLUCOSE METER 135 mg/dL 70-110 H : TESTED A T [facility] 1317 ([facility]) (test code [facility], = 1538) [place] [id number]: Blood Collector/Techni [place] ID = [id number] for Anayeli ety, Ruth POCT-GLUCOSE [id number] 16:21:48 Test Item Value Reference Range Interpretation Comments POC-GLUCOSE METER 178 mg/dL 70-110 H : Notified RN/MD: TESTED ([facility]) (test code AT [facility] [address] = 1538) [place] [id number]: Blood Collector/Techni [place] ID = [id number] for Alee Calderon HEPATITIS PANEL, [id number] 14:58:49 Test Item Value Reference Range Interpretation Comments HEPATITIS A IGM ANTIBODY ([facility]) Nonreactive Nonreactive (test code = 498) HEPATITIS B CORE IGM ANTIBODY Nonreactive Nonreactive ([facility]) (test code = 645) HEPATITIS C ANTIBODY ([facility]) Nonreactive Nonreactive (test code = 367) HEPATITIS B SURFACE ANTIGEN (2) Nonreactive Nonreactive ([facility]) (test code = 2585) Blood Collector ID - DBOperator ID - DBPOCT-GLUCOSE [id number] 12:30:38 Test Item Value Reference Range Interpretation Comments POC-GLUCOSE METER 184 mg/dL 70-110 H : Notified RN/MD: TESTED ([facility]) (test code AT [facility] [address] = 1538) [facility] [address]: Blood Collector/Techni [place] ID = [id number] for Francisco Javier h Lor[place] VENOUS DOPPLER LEGS, [id number] 10:54:00Reason for exam:->[facility]ION : 1950 Sex: MFINAL REPORT Bilateral lower extremity venous Doppler evaluation INDICATION: DVT Discussion: Colmenares-scale, color Doppler, and spectral waveform analysis evaluations of the bilateral lower extremity deep venous systems are obtained. The bilateral common femoral, superficial femoral, popliteal, posterior tibial and peroneal veins are compressible and demonstrate normal venous waveforms. There is normal response to augmentation. Impression: No sonographic evidence of deep venous thrombosis of the bilateral lower extremity. Signed: Anna Chu MDReport Verified Date/Time: 11/09/2021 10:54:12 Reading Location: [facility] Radiology Reading Room RAD, CHEST, 1 VIEW, NON [id number] 09:00:00 Reason for exam:->PNAShould this be performed at the bedside?->Yes [facility] : 1950 Sex: MFINAL REPORT TECHNIQUE: Frontal view of the chest. INDICATION: PNA COMPARISON:11/08/2021 DISCUSSION:Limited evaluation due to portable technique. Lines and hardware: EKG leadsHeart and mediastinum: Stable.Lungs and pleura: Stable streaky right basilar airspace opacities with a small effusion. Left lung is grossly clear. Negative for pneumothorax.Soft tissues and bones: No acute abnormality. IMPRESSION:Right basilar airspace opacities and small right effusion are stable. Signed: Anna Chu MDReport Verified Date/Time: 11/09/2021 09:00:23 Reading Location: [facility] RadiologyReading Room POCT- GLUCOSE [id number] 07:33:54 Test Item Value Reference Range Interpretation Comments POC-GLUCOSE METER 156 mg/dL 70-110 H : Notified RN/MD: TESTED (MARLENA) (test code AT [facility] [address] = 1538) [place] [address]: Blood Collector/Techni [place] ID = [id number] for Alec Bush [id number] 05:00:02 Test Item Value Reference Range Interpretation Comments PARTIAL THROMBOPLASTIN 111.6 seconds 23.0-35.0 H Berna l Information TIME (MARLENA) (test (Auto Ou tput) code = 760) HIV-1 ANTIGEN WITH HIV-1/2 [id number] 04:53:13 Test Item Value Reference Range Interpretation Comments HIV-1 ANTIGEN WITH HIV 1\T\2 Nonreactive Nonreactive ANTIBODY (2) (BEAKER) (test code = 2586) Blood Collector ID - [id number] METABOLIC [id number] 04:38:36 Test Item Value Reference Range Interpretation Comments SODIUM (BEAKER) (test 137 meq/L 135-148 code = 381) POTASSIUM (BEAKER) 4.6 meq/L 3.6-5.5 (test code = 379) CHLORIDE (BEAKER) 100 meq/L 98-106 (test code = 382) CO2 (BEAKER) (test 25 meq/L 20-29 code = 355) BLOOD UREA NITROGEN 52 mg/dL 10-26 H (BEAKER) (test code = 354) CREATININE (BEAKER) 2.17 mg/dL 0.50-1.20 H (test code = 358) GLUCOSE RANDOM 179 mg/dL 70-110 H (BEAKER) (test code = 652) CALCIUM (BEAKER) 8.1 mg/dL 8.5-10.5 L (test code = 697) EGFR (BEAKER) (test INSUFFIC IENT CLINICAL code = 1092) DATA TO CALCULA TE ESTIMATED GFR. Blood Collector ID - [id number] ID - [id number] ID - [id number] ID - [id number] ID - [id number] ID - [id number] ID - [id number] ID - [id number] ID - [id number] ID - [id number] FUNCTION [id number] 04:36:24 Test Item Value Reference Range Interpretation Comments TOTAL PROTEIN (BEAKER) (test code = 5.4 gm/dL 6.0-8.5 L 770) ALBUMIN (BEAKER) (test code = 1145) 3.2 g/dL 3.5-5.0 L BILIRUBIN TOTAL (BEAKER) (test code 0.4 mg/dL 0.1-1.2 = 377) BILIRUBIN DIRECT (BEAKER) (test 0.2 mg/dL 0.0-0.4 code = 706) ALKALINE PHOSPHATASE (BEAKER) (test 52 U/L 30-115 code = 346) AST (SGOT) (BEAKER) (test code = 16 U/L 5-40 353) ALT (SGPT) (BEAKER) (test code = 22 U/L 5-50 347) Blood Collector ID - [id number] ID - [id number] ID - [id number] ID - [id number] ID - [id number] ID - [id number] ID - [id number] ID - [id number] ID - [id number] ID - [id number] [id number] 04:30:27 Test Item Value Reference Range Interpretation Comments HEMOGLOBIN A1C (BEAKER) (test code = 5.8 % 4.3-6.1 368) Blood Collector ID - [id number] W/PLT COUNT & AUTO [id number] 04:17:15 Test Item Value Reference Range Interpretation Comments WHITE BLOOD CELL COUNT (BEAKER) 19.3 K/ L 4.0-10.0 H (test code = 775) RED BLOOD CELL COUNT (BEAKER) 3.96 M/ L 4.20-5.80 L (test code = 761) HEMOGLOBIN (BEAKER) (test code = 12.1 GM/DL 13.0-16.8 L 410) HEMATOCRIT (BEAKER) (test code = 35.7 % 36.0-50.0 L 411) MEAN CORPUSCULAR VOLUME (BEAKER) 90.2 fL 82.0-99.0 (test code = 753) MEAN CORPUSCULAR HEMOGLOBIN 30.6 pg 27.0-33.0 (BEAKER) (test code = 751) MEAN CORPUSCULAR HEMOGLOBIN CONC 33.9 GM/DL 32.0-36.0 (BEAKER) (test code = 752) RED CELL DISTRIBUTION WIDTH 15.2 % 12.0-15.0 H (BEAKER) (test code = 412) PLATELET COUNT (BEAKER) (test 213 K/CU MM 150-430 code = 756) MEAN PLATELET VOLUME (BEAKER) 10.1 fL 6.0-11.5 (test code = 754) NUCLEATED RED BLOOD CELLS 0 /100 WBC 0-0 (BEAKER) (test code = 413) NEUTROPHILS RELATIVE PERCENT 84 % (BEAKER) (test code = 429) LYMPHOCYTES RELATIVE PERCENT 11 % (BEAKER) (test code = 430) MONOCYTES RELATIVE PERCENT 4 % (BEAKER) (test code = 431) EOSINOPHILS RELATIVE PERCENT 0 % (BEAKER) (test code = 432) BASOPHILS RELATIVE PERCENT 0 % (BEAKER) (test code = 437) NEUTROPHILS ABSOLUTE COUNT 16.26 K/ L 1.80-8.00 H (BEAKER) (test code = 670) LYMPHOCYTES ABSOLUTE COUNT 2.10 K/ L 1.48-4.50 (BEAKER) (test code = 414) MONOCYTES ABSOLUTE COUNT (BEAKER) 0.74 K/ L 0.00-1.30 (test code = 415) EOSINOPHILS ABSOLUTE COUNT 0.00 K/ L 0.00-0.50 (BEAKER) (test code = 416) BASOPHILS ABSOLUTE COUNT (BEAKER) 0.02 K/ L 0.00-0.20 (test code = 417) IMMATURE GRANULOCYTES-RELATIVE 1 % 0-0 H PERCENT (BEAKER) (test code = 2801) TROPONIN [id number] 01:16:05 Test Item Value Reference Range Interpretation Comments TROPONIN I (BEAKER) (test code = 0.56 ng/mL 0.00-0.15 HH 397) Troponin I (TnI) levels must be interpreted in the context of the presenting symptoms and the clinical findings. Elevated TnI levels indicate myocardial damage, but are not specific for ischemic heart disease. Elevated TnI levels are seen in patients with other cardiac conditions (including myocarditis and congestive heart failure), and slight TnI elevations occur in patients with other conditions, including sepsis, renal failure, acidosis, acute neurological disease, and persistent tachyarrhythmia.Blood Collector ID - [id number] 20:56:12 Test Item Value Reference Range Interpretation Comments POC-GLUCOSE METER 169 mg/dL 70-110 H : Notified RN/MD: TESTED (BEAKER) (test code AT [facility] [address] [place] [address] = 1538) [place] [address]: Blood Collector/Techni [place] ID = [id number] for Dottie Collins [id number] 20:43:27 Test Item Value Reference Range Interpretation Comments PARTIAL THROMBOPLASTIN 43.3 seconds 23.0-35.0 H Final Information TIME (BEAKER) (test (Auto Ou tput) code = 760) [id number] 17:13:58 Test Item Value Reference Range Interpretation Comments GLUCOSE RANDOM (MARLENA) (test code 247 mg/dL 70-110 H = 652) Blood Collector ID - DSEVATROPONIN [id number] 17:03:16 Test Item Value Reference Range Interpretation Comments TROPONIN I (MARLENA) (test code = 0.57 ng/mL 0.00-0.15 HH 397) Troponin I (TnI) levels must be interpreted in the context of the presenting symptoms and the clinical findings. Elevated TnI levels indicate myocardial damage, but are not specific for ischemic heart disease. Elevated TnI levels are seen in patients with other cardiac conditions (including myocarditis and congestive heart failure), and slight TnI elevations occur in patients with other conditions, including sepsis, renal failure, acidosis, acute neurological disease, and persistent tachyarrhythmia.Blood Collector ID - HENRRYLEGIONELLA ANTIGEN, [id number] 14:05:17 Test Item Value Reference Range Interpretation Comments L. PNEUMOPHILA Negative - see Negative fo r L. SEROGP 1 UR AG comment pneumophila (MARLENA) (test code serogrou p 1 antigen, = 1156) suggesting no r ecent or current infe ction with this serog roup. Legionellosis c annot be ruled out si nce other serogroup s and species may cau se disease. U/S, RENAL, [id number] 14:05:00Reason for exam:->elevated creatine [facility] : 1950 Sex: MFINAL REPORT TECHNIQUE: Grayscale ultrasound of the kidneys and bladder. INDICATION: elevated creatine. COMPARISON: None. FINDINGS: RIGHT KIDNEY: The right kidney measures 10.8 x 4.2 x 5.3 cm with a cortical thickness of 1 cm. No solid mass lesions. No hydronephrosis. Renalartery and vein are patent. LEFT KIDNEY: The left kidney measures 11.4 x 4.8 x 5.5 cm with a cortical thickness of 1 cm. No solid mass lesions. No hydronephrosis. Renal artery and vein are patent. A left upper pole anechoic renal lesion with posterior acoustic enhancement measures 2.3 cm and is consistent with a simple renal cyst. No follow-up imaging is recommended. BLADDER: Decompressed by Trent catheter. IMPRESSION: This is a normal renal ultrasound. No hydronephrosis Signed: Paulino Jamison MDReportVerified Date/Time: 11/08/2021 14:05:00 Reading Location: [facility] C013Y CT Body Reading Room STREP PNEUMONIAE [id number] 14:04:46 Test Item Value Reference Range Interpretation Comments STREP PNEUMONIAE Presumptive negative Presumptive negative ANTIGEN (BEAKER) for pneumococcal for pneumococcal (test code = 1615) pneumonia - see pneumonia - see comment commen Presumptive negative for pneumococcal pneumonia, suggesting no current or recent pneumococcal infection. Infection due to S. pneumoniae cannot be ruled out since the antigen present in the sample may be below the detection limit of the test. TROPONIN [id number] 12:03:41 Test Item Value Reference Range Interpretation Comments TROPONIN I (BEAKER) (test code = 0.60 ng/mL 0.00-0.15 397) Troponin I (TnI) levels must be interpreted in the context of the presenting symptoms and the clinical findings. Elevated TnI levels indicate myocardial damage, but are not specific for ischemic heart disease. Elevated TnI levels are seen in patients with other cardiac conditions (including myocarditis and congestive heart failure), and slight TnI elevations occur in patients with other conditions, including sepsis, renal failure, acidosis, acute neurological disease, and persistent tachyarrhythmia.Blood Collector ID - DSENSONBASIC METABOLIC [id number] 11:54:31 Test Item Value Reference Range Interpretation Comments SODIUM (BEAKER) (test 141 meq/L 135-148 code = 381) POTASSIUM (BEAKER) 4.6 meq/L 3.6-5.5 Specimen slightly (test code = 379) hemolyzed CHLORIDE (BEAKER) 102 meq/L 98-106 (test code = 382) CO2 (BEAKER) (test 21 meq/L 20-29 code = 355) BLOOD UREA NITROGEN 44 mg/dL 10-26 H (BEAKER) (test code = 354) CREATININE (BEAKER) 2.27 mg/dL 0.50-1.20 H Specimen slightly (test code = 358) hemolyzed GLUCOSE RANDOM 147 mg/dL 70-110 H (BEAKER) (test code = 652) CALCIUM (BEAKER) 8.7 mg/dL 8.5-10.5 (test code = 697) EGFR (BEAKER) (test INSUFFIC IENT CLINICAL code = 1092) DATA TO CALCULA TE ESTIMATED GFR. Blood Collector ID - DSENSONOperator ID - DSENSONOperator ID - DSENSONOperator ID - DSENSONOperator ID - DSENSONOperator ID - DSENSONOperator ID - DSENSONOperator ID - DSENSONOperator ID - DSENSONOperator ID - DSENSONOperator ID - DSENSONOperator ID - DSENSONOperator ID - [id number] 11:45:04 Test Item Value Reference Range Interpretation Comments PARTIAL THROMBOPLASTIN 44.4 seconds 23.0-35.0 H Final Information TIME (BEAKER) (test (Auto Ou tput) code = 760) POCT-GLUCOSE [id number] 11:43:30 Test Item Value Reference Range Interpretation Comments POC-GLUCOSE METER 141 mg/dL 70-110 H : Notified RN/MD: TESTED (BEAKER) (test code AT [facility] [address] = 1538) [facility] [address]: Blood Collector/Techni [place] ID = [id number] for Francisco Javier h, Alec PUL PERF IMAGING, [id number] 09:49:00Unlisted Reason for Exam - Click Yes and Enter Reason Below->No [facility] : 1950 Sex: MFINAL REPORT PROCEDURE: LUNG SCAN - perfusion only CPT CODE: 86135 INDICATION: Elevated D-dimer PROTOCOL: 5.8 mCi of Tc-99m MAA was injected intravenously, and static perfusion images were obtained in multiple projections. Ventilation imaging was not performed due to COVID precautions. FINDINGS: Tracer distribution is subsegmentally and nonsegm entally, irregularly decreased in both lungs. There is additional diffuse decrease in the right lungcompared to the left. IMPRESSION: 1. Intermediate probability of acute or subacute pulmonary embolization.2. There is diffuse pulmonary parenchymal abnormality.3. Volume loss in the right lung. Signed: Abdias Tirado [facility] Verified Date/Time: 11/08/2021 09:49:42 CT, CHEST, WITHOUT [id number] 09:47:00Unlisted Reason for Exam - Click Yes and Enter Reason Below->No [facility] : 1950 Sex: MFINAL REPORT CT of the chest, without contrast Clinical History: Pneumonia Technique: CT of the chest is performed without intravenous contrast administration. This exam was performed according to our departmental dose optimization program which includes automated exposurecontrol, adjustment of the mA and/or kV according to patient's size and/or use of iterative reconstructive technique. Comparison Film: Chest radiograph dated November 08, 2021 Discussion: ET is above the olivia. A feeding tube enters the stomach. Visualized thyroid gland is normal. No supraclavicular, axillary, mediastinal or hilar lymphadenopathy. Heart and pericardium are unremarkable. There is a smallloculated right pleural effusion. Peripheral opacities in the middle and lower lobes are associated with architectural distortion, favor rounded atelectasis, although cannot entirely exclude superimposed airspace disease. Additionally, there are small foci of airspace opacities in the right lower lobe. Lungs are severely emphysematous, and there is mild degree of bronchial wall thickening. Partially imaged upper abdomen is unremarkable. Bony structures demonstrate degenerative changes. Impression: Severe pulmonary emphysema. Mild bronchial wall thickening. Small foci of airspace opacities in the right lower lobe, which may reflect aspiration or pneumonia. Small loculated right pleural effusion. Peripheral opacities in right middle and lower lobes associated with architectural distortion probably represent rounded atelectasis, but cannot entirely exclude superimposed infection. Signed: Carly [place] Verified Date/Time: 11/08/2021 09:47:14 RAD, CHEST, 1 VIEW, NON [id number] 08:47:00Reason for exam:->ETT placementShould this be performed at the bedside?->Yes [facility] : 1950 Sex: MFINAL REPORT TECHNIQUE: Frontal view of the chest. INDICATION: ETT placement. COMPARISON: 11/08/2021 at 3:18 AM. FINDINGS: LINES/TUBES: Endotracheal tube tip terminates 5 cm above the level of the olivia. Esophagogastric tube tip projects over the proximal stomach with sidehole just above the expected location of the GE junction. Recommend advancing by 5 cm. HEART AND MEDIASTINUM: Cardiomediastinal contour is stable. LUNGS: Nodular opacity with volume loss and scarring/atelectasis at the right lung base, as before. Left lung remains clear. . PLEURA: Small right pleural effusion versus pleural thickening, unchanged. No left pleural effusion. No thorax. SOFT TISSUES AND BONES: Unremarkable. IMPRESSION: 1. Esophagogastric tube sidehole just above the level of the GE junction. Recommend advancing by 5 cm. Endotracheal tube tip projected 5 cm above the level of the olivia.2. Persistent small right pleural effusion and right basilar opacity including somewhat nodular component within the right lower lung measuring 1.[address] may be helpful for further evaluation. Signed: Gómez Fountain MDReport Verified Date/Time: 11/08/2021 08:47:55 APTT 2021-11-08 06:22:16 Test Item Value Reference Range Interpretation Comments PARTIAL THROMBOPLASTIN 22.9 seconds 23.0-35.0 L Final Information TIME (BEAKER) (test (Auto Ou tput) code = 760) LACTIC ACID, [id number] 05:34:16 Test Item Value Reference Range Interpretation Comments LACTATE BLOOD 1.89 mmol/L See_Comment [Automated me ssage] VENOUS (2) (BEAKER) The syst em which (test code = 2872) generated this result transmitted ref erence range: 0.50-<2. 00. The reference range was not used to interpr et this result as normal/abnormal . Blood Collector ID - LITOOperator ID - LITOOperator ID - LITOOperator ID - ROSALBA [id number] 05:31:10 Test Item Value Reference Range Interpretation Comments PROCALCITONIN (BEAKER) (test code 0.15 ng/mL <0.05 H = 3036) SEPSIS RISK (ng/mL)Low: 0.05-0.50Intermediate: 0.51-2.00High: >=2.01URINALYSIS WITH MICROSCOPIC IF [id number] 05:13:27 Test Item Value Reference Range Interpretation Comments COLOR (BEAKER) (test code = 470) Yellow CLARITY (BEAKER) (test code = 469) Clear SPECIFIC GRAVITY UA (BEAKER) (test 1.015 1.001-1.035 code = 468) PH UA (BEAKER) (test code = 467) 5.0 5.0-8.0 PROTEIN UA (BEAKER) (test code = Negative Negative 464) GLUCOSE UA (BEAKER) (test code = Negative Negative 365) KETONES UA (BEAKER) (test code = Negative Negative 371) BILIRUBIN UA (BEAKER) (test code = Negative Negative 462) BLOOD UA (BEAKER) (test code = 461) Small Negative A NITRITE UA (BEAKER) (test code = Negative Negative 465) LEUKOCYTE ESTERASE UA (BEAKER) Negative Negative (test code = 466) UROBILINOGEN UA (BEAKER) (test code 0.2 mg/dL 0.2-1.0 = 463) SOURCE(BEAKER) (test code = 2795) URINALYSIS [id number] 05:13:21 Test Item Value Reference Range Interpretation Comments RBC UA-MANUAL (BEAKER) (test <5 /HPF code = 1659) WBC UA-MANUAL (BEAKER) (test None Seen /HPF code = 1661) BACTERIA (BEAKER) (test code = Occasional 517) SQUAMOUS EPITHELIAL MANUAL None Seen /HPF (BEAKER) (test code = 1663) HYALINE CASTS MANUAL (BEAKER) 0-5 /LPF (test code = 1665) TROPONIN [id number] 05:01:28 Test Item Value Reference Range Interpretation Comments TROPONIN I (BEAKER) (test code = 0.27 ng/mL 0.00-0.15 HH 397) Troponin I (TnI) levels must be interpreted in the context of the presenting symptoms and the clinical findings. Elevated TnI levels indicate myocardial damage, but are not specific for ischemic heart disease. Elevated TnI levels are seen in patients with other cardiac conditions (including myocarditis and congestive heart failure), and slight TnI elevations occur in patients with other conditions, including sepsis, renal failure, acidosis, acute neurological disease, and persistent tachyarrhythmia.Blood Collector ID - LITOBASIC METABOLIC PANEL 2021-11-08 05:00:17 Test Item Value Reference Range Interpretation Comments SODIUM (BEAKER) (test 141 meq/L 135-148 code = 381) POTASSIUM (BEAKER) 5.3 meq/L 3.6-5.5 (test code = 379) CHLORIDE (BEAKER) 103 meq/L 98-106 (test code = 382) CO2 (BEAKER) (test 25 meq/L 20-29 code = 355) BLOOD UREA NITROGEN 40 mg/dL 10-26 H (BEAKER) (test code = 354) CREATININE (BEAKER) 2.33 mg/dL 0.50-1.20 H (test code = 358) GLUCOSE RANDOM 157 mg/dL 70-110 H (BEAKER) (test code = 652) CALCIUM (BEAKER) 8.7 mg/dL 8.5-10.5 (test code = 697) EGFR (BEAKER) (test INSUFFIC IENT CLINICAL code = 1092) DATA TO CALCULA TE ESTIMATED GFR. Blood Collector ID - LITOOperator ID - LITOOperator ID - LITOOperator ID - LITOOperator ID - LITOOperator ID - LITOOperator ID - LITOOperator ID - LITOOperator ID - LITOOperator ID - LITOB-TYPE NATRIURETIC FACTOR (BNP)2021-11-08 05:00:11 Test Item Value Reference Range Interpretation Comments B-TYPE NATRIURETIC PEPTIDE (BEAKER) 480 pg/mL 0-100 H (test code = 700) Blood Collector ID - LITOCBC W/PLT COUNT & AUTO [id number] 04:56:38 Test Item Value Reference Range Interpretation Comments WHITE BLOOD CELL COUNT (BEAKER) 16.8 K/ L 4.0-10.0 H (test code = 775) RED BLOOD CELL COUNT (BEAKER) 4.43 M/ L 4.20-5.80 (test code = 761) HEMOGLOBIN (BEAKER) (test code = 13.6 GM/DL 13.0-16.8 410) HEMATOCRIT (BEAKER) (test code = 40.9 % 36.0-50.0 411) MEAN CORPUSCULAR VOLUME (BEAKER) 92.3 fL 82.0-99.0 (test code = 753) MEAN CORPUSCULAR HEMOGLOBIN 30.7 pg 27.0-33.0 (BEAKER) (test code = 751) MEAN CORPUSCULAR HEMOGLOBIN CONC 33.3 GM/DL 32.0-36.0 (BEAKER) (test code = 752) RED CELL DISTRIBUTION WIDTH 15.6 % 12.0-15.0 H (BEAKER) (test code = 412) PLATELET COUNT (BEAKER) (test 200 K/CU MM 150-430 code = 756) MEAN PLATELET VOLUME (BEAKER) 10.4 fL 6.0-11.5 (test code = 754) NUCLEATED RED BLOOD CELLS 0 /100 WBC 0-0 (BEAKER) (test code = 413) NEUTROPHILS RELATIVE PERCENT 85 % (BEAKER) (test code = 429) LYMPHOCYTES RELATIVE PERCENT 9 % (BEAKER) (test code = 430) MONOCYTES RELATIVE PERCENT 5 % (BEAKER) (test code = 431) EOSINOPHILS RELATIVE PERCENT 0 % (BEAKER) (test code = 432) BASOPHILS RELATIVE PERCENT 0 % (BEAKER) (test code = 437) NEUTROPHILS ABSOLUTE COUNT 14.21 K/ L 1.80-8.00 H (BEAKER) (test code = 670) LYMPHOCYTES ABSOLUTE COUNT 1.57 K/ L 1.48-4.50 (BEAKER) (test code = 414) MONOCYTES ABSOLUTE COUNT (BEAKER) 0.83 K/ L 0.00-1.30 (test code = 415) EOSINOPHILS ABSOLUTE COUNT 0.00 K/ L 0.00-0.50 (BEAKER) (test code = 416) BASOPHILS ABSOLUTE COUNT (BEAKER) 0.02 K/ L 0.00-0.20 (test code = 417) IMMATURE GRANULOCYTES-RELATIVE 1 % 0-0 H PERCENT (BEAKER) (test code = 2801) [id number] 04:53:09 Test Item Value Reference Range Interpretation Comments D-DIMER QUANTITATIVE 5.80 MG/L FEU <0.50 H Final Information (BEAKER) (test code = (Auto Output) 724) REGARDING D-DIMER RESULTS: The 98% NPV (Negative Predictive Value) for DVT/PE exclusion is 0.50 mg/LFEU as suggested by the full roll inspector and as approved by the FDA.PROTHROMBIN TIME/[id number] 04:52:30 Test Item Value Reference Range Interpretation Comments PROTIME (BEAKER) 11.0 seconds 9.3-12.0 Final Infor mation (test code = 759) (Auto Outp ut) INR (BEAKER) (test 1.00 See_Comment Final Inf ormation code = 370) (Auto Output) [Automated mess age] The system [employer] generated this result transmitted ref erence range: <=5.90. The reference range was not used to int erpret this result as normal/abnormal . RECOMMENDED COUMADIN/WARFARIN INR THERAPY RANGESSTANDARD DOSE: 2.0 - 3.0 Includes: PROPHYLAXIS forvenous thrombosis, systemic embolization; TREATMENT for venous thrombosis and/or pulmonary embolus.HIGH RISK: Target INR is 2.5-3.5 for patients with mechanical heart valves.HEMOGLOBIN [id number] 04:51:27 Test Item Value Reference Range Interpretation Comments HEMOGLOBIN A1C (BEAKER) (test code = 5.7 % 4.3-6.1 368) Blood Collector ID - LITOHEPATIC FUNCTION [id number] 04:50:07 Test Item Value Reference Range Interpretation Comments TOTAL PROTEIN (BEAKER) (test code = 6.3 gm/dL 6.0-8.5 770) ALBUMIN (BEAKER) (test code = 1145) 3.6 g/dL 3.5-5.0 BILIRUBIN TOTAL (BEAKER) (test code 0.3 mg/dL 0.1-1.2 = 377) BILIRUBIN DIRECT (BEAKER) (test 0.2 mg/dL 0.0-0.4 code = 706) ALKALINE PHOSPHATASE (BEAKER) (test 65 U/L 30-115 code = 346) AST (SGOT) (BEAKER) (test code = 28 U/L 5-40 353) ALT (SGPT) (BEAKER) (test code = 31 U/L 5-50 347) Blood Collector ID - LITOOperator ID - LITOOperator ID - LITOOperator ID - LITOOperator ID - LITOOperator ID - LITOOperator ID - [id number] 04:49:45 Test Item Value Reference Range Interpretation Comments MAGNESIUM (BEAKER) (test code = 2.8 mg/dL 1.5-3.0 627) Blood Collector ID - LITOOperator ID - LITOOperator ID - LITOOperator ID - ROSALBA [id number] 04:46:46 Test Item Value Reference Range Interpretation Comments PHOSPHORUS (WALESKAAKER) (test code = 4.8 mg/dL 2.5-4.5 H 604) Blood Collector ID - LITOPOCT-GLUCOSE [id number] 04:11:36 Test Item Value Reference Range Interpretation Comments POC-GLUCOSE METER 156 mg/dL 70-110 H : TESTED A T [facility] [address]17 (BEAKER) (test code [address], = 1538) [facility] [place] [address]: Blood Collector/Techni [place] ID = [id number] for Real Lei RAD, ABDOMEN/KUB 1 VIEW [id number] 04:02:00Reason for exam:->NG tube [facility] : 1950 Sex: MFINAL REPORT CLINICAL HISTORY: NG tube placement COMPARISON: None. FINDINGS: A single supine image of a portion of the abdomen is submitted. The tip of an enteric tube overlies the left upper quadrant in the expected position of the stomach. The abdominal bowel gas pattern is nonspecific as it is largely gasless. There is amorphous calcification overlying the right upper quadrant, nonspecific but possibly cholelithiasis. There is no acute osseous abnormality. Signed: Greyson Arredondo Verified Date/Time: 11/08/2021 04:02:40 RAD, CHEST, 1 VIEW, NON [id number] 03:57:00Reason for exam:->AHRFShould this be performed at the bedside?->Yes [facility] : 1950 Sex: MFINAL REPORT RAD, CHEST, 1 VIEW, NON DEPT INDICATION: AHRF COMPARISON: None FINDINGS: Portable frontal view of the chest. IMPRESSION: Support Lines: The endotracheal tube terminates 7.9 cm cephalad to the olivia at the level of the clavicles. Enteric tube terminates within the gastric fundus and the sidehole is at the level of the gastroesophageal junction. Lungs and pleura: Small right pleural effusion and right basilar hazy airspace opacities suspicious for pneumoniaNo pneumothorax. Heart and mediastinum: Stable contours. Additional findings: None. Signed: Harman Whaley [facility] Verified Date/Time: 11/08/2021 03:57:41 BLOOD GAS, [id number] 03:54:11 Test Item Value Reference Range Interpretation Comments PH ARTERIAL (BEAKER) (test code = 7.38 7.35-7.45 383) PCO2 ARTERIAL (BEAKER) (test code 40 mm Hg 35-45 = 384) PO2 ARTERIAL (BEAKER) (test code 336 mm Hg 80-90 H = 385) O2 SATURATION ARTERIAL (BEAKER) 99.7 % 96.0-97.0 H (test code = 386) HCO3 ARTERIAL (BEAKER) (test code 23 mmol/L 21-29 = 388) BASE EXCESS ARTERIAL (BEAKER) -1.8 mmol/L -2.0-3.0 (test code = 387) PATIENT TEMPERATURE (BEAKER) 37.0 (test code = 1818) FIO2 (BEAKER) (test code = 1819) 75.0
== END 2022-01-12 10:25 | disposition home or self-care (01) | DRG 190 ==
LOC: ER 22:58 → ERHOLD 01-10 03:22 → 2ND 01-10 04:56
PROVIDERS: ADMIT Internal Medicine; ATTEND Internal Medicine
DX: J44.0 Chronic obstructive pulmonary disease with (acute) lower respiratory infection (principal); J18.9 Pneumonia, unspecified organism; J44.1 Chronic obstructive pulmonary disease with (acute) exacerbation; J20.9 Acute bronchitis, unspecified; I12.9 Hypertensive chronic kidney disease with stage 1 through stage 4 chronic kidney disease, or unspecified chronic kidney disease; N18.32 Chronic kidney disease, stage 3b; I25.10 Atherosclerotic heart disease of native coronary artery without angina pectoris; D72.823 Leukemoid reaction; E11.22 Type 2 diabetes mellitus with diabetic chronic kidney disease; E11.65 Type 2 diabetes mellitus with hyperglycemia; I25.2 Old myocardial infarction; Z95.5 Presence of coronary angioplasty implant and graft; Z20.822 Contact with and (suspected) exposure to COVID-19
CPT/HCPCS: 36415; 71045; 80048; 80076; 82947; 83605; 83735; 83880; 84145; 84484; 85025; 85610; 87040; 87804; 93005; 94640; 96374; 96375; 99285; J0456; J1100; J1644; J1650; J1815; J1940; J2405; J2930; J7030; J7050; U0003

== ENCOUNTER 2022-01-12 21:22 | Observation (INO) | payer MEDICARE ==
[2022-01-12] MEDS ORDERED: METHYLPREDNISOLONE 125 MG INJ ONE (22:03)
[2022-01-12] MEDS ORDERED: MAGNESIUM SULFATE 1 gm IVPB 1 GM/100 ML BAG IV ONE (22:04)
[2022-01-12] MEDS ORDERED: IPRATROPIUM BROM 0.5MG/2.5ML ONE ×2 (22:04)
[2022-01-12] MEDS ORDERED: LEVALBUTEROL 1.25 MG/3 ML NEB ONE (22:04)
--- NOTE | 2022-01-13 00:22 | EDPHYS ---
Physician Documentation [facility] Name: Gabo Chow Sr Age: 71 yrs Sex: Male : 1950 Arrival Date: 01/12/2022 Time: 21:32 Bed 27 Private MD: ED Physician Calvin Clements HPI: 01/12 22:15 This 71 yrs old Male presents to ER via EMS with complaints of Shortness Of Breath. rn 22:15 The patient has shortness of breath with light activity. Onset: The symptoms/episode rn began/occurred today. Duration: The symptoms are intermittent. The patient's shortness of breath is aggravated by coughing, light activity, supine position. Severity of symptoms: At their worst the symptoms were moderate in the emergency department the symptoms have improved. The patient has experienced similar episodes in the past. The patient has been recently been admitted at [facility]. Pt reports just discharged today from this hospital, admitted for COPD and possible pneumonia. [place] better this AM, did not fill meds, tried to smoke a cigarette, and began having sob again. NO new symptoms. Not on home O2. No chest pain.. Historical: - Allergies: 21:35 No Known Allergies; eh3 - Home Meds: 21:35 Albuterol Inhl [Active]; amlodipine oral [Active]; carvedilol [Active]; Furosemide Oral eh3 [Active]; Lisinopril Oral [Active]; Prednisone Oral [Active]; - PMHx: 21:35 CHF; COPD; Hypertension; Myocardial infarction; eh3 - PSHx: 21:35 Stented artery; eh3 - Immunization history:: Adult Immunizations up to date, Client reports having NOT received the Covid vaccine. - Social history:: Smoking status: Patient reports the use of cigarette tobacco products, denies chronic smoking, but will smoke occasionally. - Family history:: not pertinent. - Hospitalizations: : The patient was recently seen at [facility]. ROS: 22:15 Constitutional: Negative for fever, chills, and weight loss, Eyes: Negative for injury, rn pain, redness, and discharge, Neck: Negative for injury, pain, and swelling, Cardiovascular: Negative for chest pain, palpitations, and edema, Respiratory: + cough and sob Abdomen/GI: Negative for abdominal pain, nausea, vomiting, diarrhea, and constipation, Back: Negative for injury and pain, MS/Extremity: Negative for injury and deformity, Skin: Negative for injury, rash, and discoloration, Neuro: Negative for headache, weakness, numbness, tingling, and seizure. Exam: 22:15 Constitutional: This is a well developed, well nourished patient who is awake, alert, rn mild tachypnea Head/Face: Normocephalic, atraumatic. Eyes: Periorbital areas with no swelling, redness, or edema. ENT: no stridor Cardiovascular: Regular rate and rhythm. No pulse deficits. Respiratory: + mild tachypnea with wheezing bilaterally Abdomen/GI: Soft, non-tender Skin: Warm, dry MS/ Extremity: Pulses equal, no cyanosis. Neuro: Awake and alert, GCS 15 Vital Signs: 21:33 BP 135 / 66; Pulse 96; Resp 22; Temp 98.9(TE); Pulse Ox 95% on R/A; Weight 75.75 kg; 3 Height 6 ft. 0 in. (182.88 cm); Pain 0/10; 01/13 00:02 BP 129 / 93; Pulse 79; Resp 22; Pulse Ox 96% on R/A; eh3 01/12 21:33 Body Mass Index 22.65 (75.75 kg, 182.88 cm) [facility] MDM: 01/12 21:39 Patient medically screened. rn 01/13 00:18 Differential diagnosis: Chronic Obstructive Pulmonary Disease Myocardial Infarction rn pneumonia, pulmonary edema, reactive airway disease. Data reviewed:. Data reviewed: vital signs, nurses notes, old medical records, radiologic studies, and as a result, I will admit patient. Counseling: I had a detailed discussion with the patient and/or guardian regarding: the historical points, exam findings, and any diagnostic results supporting the discharge/admit diagnosis, radiology results, the need for further work-up and treatment in the hospital. Response to treatment: the patient's symptoms have mildly improved after treatment, and as a result, I will admit patient. Admission orders: after a detailed discussion of the patient's condition and case, the admit orders are written by me. ED course: Pt reports still sob, still wheezing, does not feel comfortable going home, no gross change in CXR, will re-admit to Dr. Leslie.. 01/13 00:43 Order name: COVID-19 SARS RT PCR (Document "Date of Onset" if Symptomatic) mw2 01/13 05:52 Order name: SARS-COV-2 RT PCR EDNY 01/12 21:46 Order name: XRAY Chest (1 view) rn 01/12 21:46 Order name: IV Start; Complete Time: 22:44 rn Administered Medications: 01/12 22:24 Drug: Xopenex (levalbuterol) (3) 1.25 mg Route: Inhalation; 3 22:24 Drug: AtroVENT (ipratropium) Aerosol 0.5 mg Route: Inhalation; eh3 22:44 Drug: SOLU-Medrol (methylPrednisoLONE) 125 mg Route: IVP; Site: right antecubital; ld1 01/13 00:42 Follow up: Response: No adverse reaction kd3 01/12 22:44 Drug: Magnesium Sulfate 1 grams Route: IVPB; Infused Over: 1 hrs; Site: right ld1 antecubital; 01/13 00:00 Follow up: Response: No adverse reaction; IV Status: Completed infusion; IV Intake: eh3 100ml Disposition Summary: 01/13/22 00:21 Hospitalization Ordered Hospitalization Status: Observation rn Provider: Joesph Leslie rn Condition: Stable rn Problem: an acute exacerbation rn Symptoms: have improved rn Bed/Room Type: Standard rn Location: [facility] ER HOLD(01/13/22 00:29) mw Room Assignment: ERHOLD-(01/13/22 00:29) mw Diagnosis - COPD/ Chronic obstructive pulmonary disease with (acute) exacerbation rn Forms: - Medication Reconciliation Form rn - SBAR form rn Signatures: Dispatcher [employer] EDNY Radha Magana RN RN mw Calvin Clements MD MD rn Dibbern, Lauren, RN RN ld1 Naty Wild 3 Nadine Adames RN kd3 Corrections: (The following items were deleted from the chart) 00:29 00:21 Telemetry/MedSurg (observation) rn mw 00:29 00:21 rn mw
--- NOTE | 2022-01-13 00:22 | ER ---
Nurse's Notes [facility] Name: Gabo Chow Sr Age: 71 yrs Sex: Male : 1950 Arrival Date: 01/12/2022 Time: 21:32 Bed 27 Private MD: Diagnosis: COPD/ Chronic obstructive pulmonary disease with (acute) exacerbation Presentation: 01/12 21:33 Chief complaint: Patient states: shortness of breath started 4 hours ago when he eh3 attempted to smoke a cigarette. Upon arrival to ER, pt is 95% on RA. Coronavirus screen: Vaccine status: Patient reports being unvaccinated. Ebola Screen: No symptoms or risks identified at this time. Initial Sepsis Screen: Does the patient meet any 2 criteria? No. Patient's initial sepsis screen is negative. Does the patient have a suspected source of infection? No. Patient's initial sepsis screen is negative. Risk Assessment: Do you want to hurt yourself or someone else? Patient reports no desire to harm self or others. Onset of symptoms was January 12, 2022 at 17:00. 21:33 Method Of Arrival: EMS: [place] [id number] 21:33 Acuity: ALLI 3 eh3 Triage Assessment: 21:35 General: Appears in no apparent distress. comfortable, Behavior is calm, cooperative, eh3 appropriate for age. Pain: Denies pain. Neuro: Level of Consciousness is awake, alert, obeys commands, Oriented to person, place, time, situation. Cardiovascular: Capillary refill < 3 seconds Patient's skin is warm and dry. Respiratory: Reports shortness of breath at rest labored breathing Airway is patent Respiratory effort is even, labored, Onset: The symptoms/episode began/occurred suddenly, the patient has moderate shortness of breath. Historical: - Allergies: 21:35 No Known Allergies; eh3 - Home Meds: 21:35 Albuterol Inhl [Active]; amlodipine oral [Active]; carvedilol [Active]; Furosemide Oral eh3 [Active]; Lisinopril Oral [Active]; Prednisone Oral [Active]; - PMHx: 21:35 CHF; COPD; Hypertension; Myocardial infarction; eh3 - PSHx: 21:35 Stented artery; eh3 - Immunization history:: Adult Immunizations up to date, Client reports having NOT received the Covid vaccine. - Social history:: Smoking status: Patient reports the use of cigarette tobacco products, denies chronic smoking, but will smoke occasionally. - Family history:: not pertinent. - Hospitalizations: : The patient was recently seen at [facility]. Screenin:39 Abuse screen: Denies threats or abuse. Denies injuries from another. Nutritional eh3 screening: No deficits noted. Tuberculosis screening: No symptoms or risk factors identified. Assessment: 21:39 Reassessment: No changes from previously documented assessment. see triage assessment. eh3 Cardiovascular:. Respiratory: Airway is patent Respiratory effort is even, labored, Breath sounds with wheezes bilaterally. Vital Signs: 21:33 BP 135 / 66; Pulse 96; Resp 22; Temp 98.9(TE); Pulse Ox 95% on R/A; Weight 75.75 kg; eh3 Height 6 ft. 0 in. (182.88 cm); Pain 0/10; 01/13 00:02 BP 129 / 93; Pulse 79; Resp 22; Pulse Ox 96% on R/A; eh3 01/12 21:33 Body Mass Index 22.65 (75.75 kg, 182.88 cm) eh3 ED Course: 01/12 21:32 Patient arrived in ED. eh3 21:35 Triage completed. eh3 21:35 Arm band placed on right wrist. eh3 21:39 Calvin Clements MD is Attending Physician. rn 21:39 Patient has correct armband on for positive identification. Placed in gown. Bed in low eh3 position. Call light in reach. Side rails up X2. 21:46 Anupama Alston, RN is Primary Nurse. ld1 22:14 XRAY Chest (1 view) In Process Unspecified. EDMS 22:38 Initial lab(s) drawn, by nc, sent to lab. Inserted saline lock: 20 gauge in right tw5 antecubital area, using aseptic technique. Blood collected. ultrasound guided IV. 01/13 00:21 Joesph Leslie MD is Hospitalizing Provider. rn 00:42 No provider procedures requiring assistance completed. Patient admitted, IV remains in kd3 place. intact, No redness/swelling at site. 05:25 Primary Nurse role handed off by Anupama Alston, RN mw2 Administered Medications: 01/12 22:24 Drug: Xopenex (levalbuterol) (3) 1.25 mg Route: Inhalation; 3 22:24 Drug: AtroVENT (ipratropium) Aerosol 0.5 mg Route: Inhalation; 3 22:44 Drug: SOLU-Medrol (methylPrednisoLONE) 125 mg Route: IVP; Site: right antecubital; ld1 01/13 00:42 Follow up: Response: No adverse reaction kd3 01/12 22:44 Drug: Magnesium Sulfate 1 grams Route: IVPB; Infused Over: 1 hrs; Site: right ld1 antecubital; 01/13 00:00 Follow up: Response: No adverse reaction; IV Status: Completed infusion; IV Intake: eh3 100ml Medication: 01/12 21:39 VIS not applicable for this client. eh3 Intake: 01/13 00:00 IV: 100ml; Total: 100ml. eh3 Outcome: 00:21 Decision to Hospitalize by Provider. rn 00:42 Admitted to ER Hold. Please see [facility] for further documentation. kd3 00:42 Condition: stable 00:42 Instructed on the need for admit, Demonstrated understanding of instructions. 05:58 Patient left the ED. mw2 Signatures: Dispatcher [employer] EDCalvin Barboza MD MD rn [place], MyKena mw2 Anupama Alston RN RN [email or web address] Babs [place] 5 Nadine Adames RN RN kd3 Naty Wild 3
[2022-01-13] MEDS ORDERED: ALBUTEROL 2.5 MG/3 ML NEB SOL NEB PRN (00:39)
[2022-01-13] MEDS ORDERED: IPRATROPIUM BROM 0.5MG/2.5ML NEB PRN (00:39)
[2022-01-13] MEDS: METHYLPREDNISOLONE 40 MG INJ IV SCH ×2 (00:45→09:00)
[2022-01-13] MEDS ORDERED: METHYLPREDNISOLONE 40 MG INJ ONE (00:52)
[2022-01-13] MEDS ORDERED: LEVALBUTEROL 0.63 MG/3 ML NEB NEB PRN ×2 (08:37→14:00)
--- NOTE | 2022-01-13 08:42 | P.HP ---
Certification for Inpatient Patient admitted to: Observation With expected LOS: <2 Midnights Patient will require the following post-hospital care: None Practitioner: I am a practitioner with admitting privileges, knowledge of patient current condition, hospital course, and medical plan of care. Services: Services provided to patient in accordance with Admission requirements found in Title 42 Section 412.3 of the Code of Federal Regulations Patient History Date of Service: 01/13/22 Primary Care Provider: Anuj Reason for admission: copd exacerbation History of Present Illness: Patient was discharged for copd exacerbation yesterday. He went home smoked and got short of breath. Will admit him on steroids and breathing treatments. Allergies No Known Allergies Allergy (Verified 05/20/12 16:57) Home Medications: Amlodipine Besylate 5 mg PO DAILY 01/10/22 Furosemide 40 mg PO DAILY 01/10/22 carvediloL [Carvedilol] 6.25 mg PO BID 6AM 6PM 01/10/22 lisinopriL [Lisinopril] 40 mg PO DAILY 01/10/22 predniSONE [Deltasone*] 10 mg PO BID 9 Days #21 tab 01/12/22 - Past Medical/Surgical History Diabetic: No -: HTN -: COPD -: [place] -: CAD -: heart stent - Family History Father -: GI disease, Other (see notes) Notes: Heart attack Mother -: Cancer Notes: COPd - Social History Alcohol use: No CD- Drugs: No Caffeine use: Yes Review of Systems 10-point ROS is otherwise unremarkable Respiratory: Shortness of Breath Physical Examination - Vital Signs Temperature: 98.8 F Blood Pressure: 144/76 Pulse: 90 Respirations: 16 Pulse Ox (%): 96 - Physical Exam General: Alert, In no apparent distress HEENT: Atraumatic, PERRLA, Mucous membr. moist/pink, EOMI, Sclerae nonicteric Neck: Supple, 2+ carotid pulse no bruit, No LAD, Without JVD or thyroid abnormality Respiratory: Clear to auscultation bilaterally, Diminished Cardiovascular: Regular rate/rhythm, Normal S1 S2 Gastrointestinal: Normal bowel sounds, No tenderness Musculoskeletal: No tenderness Integumentary: No rashes Neurological: Normal gait, Normal speech, Normal strength at 5/5 x4 extr, Normal tone, Normal affect Lymphatics: No axilla or inguinal lymphadenopathy Assessment and Plan - Problems (Diagnosis) (1) Acute bronchitis with COPD Current Visit: No Status: Acute Plan: will start the patient on steroids and breathing treatments (2) CKD (chronic kidney disease) stage 3, GFR 30-59 ml/min Current Visit: No Status: Chronic Plan: will monitor the creatine Qualifiers: Chronic kidney disease stage 3 subtype: stage 3b (GFR 30-44) Qualified Code(s): N18.32 - Chronic kidney disease, stage 3b (3) HTN (hypertension) Current Visit: No Status: Chronic Plan: continue carvedilol and amlodipine Qualifiers: Hypertension type: primary hypertension (4) Nicotine dependence Current Visit: No Status: Chronic Plan: Patient is having difficulty with this obviously Qualifiers: Nicotine product type: cigarettes Substance use status: uncomplicated Qualified Code(s): F17.210 - Nicotine dependence, cigarettes, uncomplicated Discharge Plan: Home Plan to discharge in: 24 Hours - Advance Directives Does patient have a Living Will: No Does patient have a Durable POA for Healthcare: No - Code Status/Comfort Care Code Status Assessed: Yes Code Status: Full Code Physician Review: Patient Assessed, Agree with Above Assessment and Plan Critical Care: No Time Spent Managing Pts Care (In Minutes): 45
[2022-01-13 08:54] VITALS: O2SAT 95
[2022-01-13] MEDS ORDERED: lisinopriL 20 MG TAB PO SCH (09:00)
[2022-01-13] MEDS ORDERED: AMLODIPINE 5 MG TAB PO SCH (09:00)
[2022-01-13 10:42] VITALS: BMI 22.6
--- NOTE | 2022-01-13 12:30 | RAD REPORT ---
EXAM DESCRIPTION: Chest Radiography COMPARISON: Chest radiograph January 10, 2022 TECHNIQUE: [facility] [[email or web address] MAIN COPD FINDINGS: A single AP view of the chest demonstrates a normal cardiomediastinal silhouette. No pneumothorax. Small right pleural effusion. Right basilar consolidations are stable. Osseous structures are intact. IMPRESSION: Stable chest. Electronically signed by: Lucian Kingston MD 01/12/2022 11:06 PM CDT Due to temporary technical issues with the PACS/Fluency reporting system, reports are being signed by the in house radiologists without review as a courtesy to insure prompt reporting. The interpreting radiologist is fully responsible for the content of the report.
[2022-01-13 13:13] VITALS: TEMP 97.9
[2022-01-13 15:23] VITALS: BP 139/63
--- NOTE | 2022-01-13 15:24 | P.DS ---
Admission Date: 01/13/22 Discharge Date: 01/13/22 Primary Care Provider: Anuj Disposition: ROUTINE DISCHARGE Discharge Condition: FAIR Reason for Admission: copd exacerbation - Problems (1) Acute bronchitis with COPD Current Visit: No Status: Acute (2) CKD (chronic kidney disease) stage 3, GFR 30-59 ml/min Current Visit: No Status: Chronic Qualifiers: Chronic kidney disease stage 3 subtype: stage 3b (GFR 30-44) Qualified Code(s): N18.32 - Chronic kidney disease, stage 3b (3) HTN (hypertension) Current Visit: No Status: Chronic Qualifiers: Hypertension type: primary hypertension (4) Nicotine dependence Current Visit: No Status: Chronic Qualifiers: Nicotine product type: cigarettes Substance use status: uncomplicated Qualified Code(s): F17.210 - Nicotine dependence, cigarettes, uncomplicated Brief History of Present Illness: Patient was discharged for copd exacerbation yesterday. He went home smoked and got short of breath. Will admit him on steroids and breathing treatments. Hospital Course: Patient wishes to go home. He is not actively wheezing. Not good movement of his breathing. as long as he is on the steroids and does not smoke he will hopefully be safe. Will have him follow up in the office in a week. Vital Signs/Physical Exam: Temp Pulse Resp BP Pulse Ox 97.9 F 67 18 108/66 95 01/13/22 12:00 01/13/22 12:00 01/13/22 12:00 01/13/22 12:00 01/13/22 12:00 General: Alert, In no apparent distress HEENT: Atraumatic, PERRLA, EOMI Neck: Supple, JVD not distended Respiratory: Clear to auscultation bilaterally, Diminished Cardiovascular: Regular rate/rhythm, Normal S1 S2 Gastrointestinal: Normal bowel sounds, No tenderness Musculoskeletal: No tenderness Integumentary: No rashes Neurological: Normal speech, Normal tone, Normal affect Lymphatics: No axilla or inguinal lymphadenopathy Home Medications: Amlodipine Besylate 5 mg PO DAILY 01/10/22 Furosemide 40 mg PO DAILY 01/10/22 carvediloL [Carvedilol] 6.25 mg PO BID 6AM 6PM 01/10/22 lisinopriL [Lisinopril] 40 mg PO DAILY 01/10/22 predniSONE [Deltasone*] 10 mg PO BID 9 Days #21 tab 01/12/22 Followup: Joesph Leslie MD [ACTIVE - CAN ADMIT] - 1 Week Physician Review: Patient Assessed, Agree with Above Assessment and Plan Time spent managing pt's care (in minutes): 20
[2022-01-13] MEDS ORDERED: carvediloL 6.25 MG TAB PO SCH (18:00)
--- OUTSIDE RECORDS SUMMARY | 2022-01-14 14:56 | XMS REPORT | Continuity of Care Document ---
:1950 Author Organization [facility] t Address 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 Asbestos Asbestos Problem Active [facility] exposure exposure Physic i ans Loculated Loculated Problem Active [facility] pleural pleural Physici effusion effusion ans Centrilobu Centrilobu Problem Active U T lar lar Physici emphysema emphysema ans No known No known Disease Unive rs active active ity of problems problems [facility] Allergies, Adverse Reactions, Alerts Allergy Allergy Status Severity Reaction(s) Onset Inactive Treating Comm ents Source Name Type Date Date Clinician NO KNOWN Allergy Active [facility] ALLERGIE S NO KNOWN Drug Active [facility] ALLERGIE Class [facility] of [facility] [place] [facility] [place] Social History Social Habit Start Date Stop Date Quantity Comments Source Exposure to Yes [facility] SARS-CoV-2 (event) Medica l Branch Sex Assigned At [birth year] [facility] 00:00:00 00:00:00 Medical Branch Smoking Status Start Date Stop Date Source Smokes tobacco daily (finding) [facility] Unknown if ever smoked [facility] [place] Medications Ordered Filled Start Stop Current Ordering Indication Dosage Frequency Signature Comments Components Source Medication Medication Date Date Medication? Clinician (SIG) Name Name lisinopriL Yes [id number] 10mg Take 1 Univers 10 mg 4-17 tablet by ity of tablet 00:00: mouth at [place] 00 bedtime. Medical Branch metoprolol Yes [id number] 25mg Take 1 Univers tartrate 25 4-17 tablet by ity of mg tablet 00:00: mouth 2 [place] 00 (two) Medical times Branch daily. Spiriva Spiriva 2019-06 Yes SULEMA INHALE TWO UT Respimat Respimat 0-12 SALAS (2) PUFFS Physici 2.5 MCG/ACT 2.5 MCG/ACT 00:00: M.D. BY MOUTH ans Inhalation Inhalation 00 ONCE Aerosol Aerosol DAILY. Solution Solution Metoprolol Metoprolol 2012-06 Yes HKOI 1 Q0.5D TAKE 1 UT Tartrate 25 [...] 2021-10-11 181 mm[Hg] University of pressure 10:44:00 [facility] Diastolic blood 2021-10-11 70 mm[Hg] [place] pressure 10:44:00 [facility] Heart rate 2021-10-11 61 /min [facility] 10:44:00 [facility] Body temperature 2021-10-11 35.94 Leni [facility] 10:44:00 [facility] Respiratory rate 2021-10-11 20 /min [facility] 10:44:00 [facility] Body height 2021-10-11 182.9 cm [facility] 10:44:00 [facility] Body weight 2021-10-11 70.308 kg [facility] 10:44:00 [facility] BMI 2021-10-11 21.02 kg/m2 [facility] 10:44:00 [facility] Oxygen saturation 2021-10-11 97 /min [facility] Arterial blood 10:44:00 [facility] Pulse oximetry [place] Heart Rate 2020-04-16 59 /min Location: [facility] 07:34:00 Radial; Quality: Normal O2 SAT 2020-04-16 95 % Source: [place] [facility] 07:34:00 Non-Rebreather Systolic blood 2020-04-16 141 mm[Hg] Location: [facility] Phys[facility] ns pressure 07:34:00 Position: Sitting Diastolic blood 2020-04-16 60 mm[Hg] Location: LUE; [facility] ans pressure 07:34:00 Position: Sitting Weight 2020-04-16 173.125 [lb_av] [facility] 07:34:00 Body mass index 2020-04-16 22.23 kg/m2 [facility] (BMI) [Ratio] 07:34:00 Body temperature 2020-04-16 97.2 [degF] Method: [facility] 07:34:00 Tympanic Systolic blood 2020-04-07 137 mm[Hg] Location: RUE; [place] Physicia ns pressure 14:12:00 Position: Sitting Diastolic blood 2020-04-07 74 mm[Hg] Location: RUE; [place] Physici ans pressure 14:12:00 Position: Sitting Body [...] 14:12:00 O2 SAT 2020-04-07 97 % Source: [facility] 14:12:00 Procedures Procedure Date / Time Performed Performing Clinician [facility] e NOTICE OF PRIVACY 2021-10-11 10:30:05 [facility]igned, [facility] Branch CONSENT/REFUSAL FOR 2021-10-11 10:27:09 Doctor Unassigned, No [facility] AND Name Medical Branch TREATMENT PET CT Lung solitary 2020-04-07 00:00:00 [facility] pulm nodule [id number] Plan of Care Planned Activity Planned Date Details Comments Source Diagnostic Test Pending 2020-04-07 00:00:[address] Lung solitary [facility] pulm nodule 45788 [code = 68129] Diagnostic Test Pending 2020-04-07 00:00:[address] Lung solitary [facility] pulm nodule 76233 [code = 27068] Encounters Start End Encounter Admission Attending Care Care Encounter Source Date/Time Date/Time Type Type Clinicians Facility Department ID 2022-01-08 2022-01-08 Outpatient DMG DMG [id number] [facility] 07:10:00 07:10:00 0715 Medica l Group 2021-12-09 2021-12-09 Outpatient FAYE MILLER SLECurt [facility] [id number] [facility] 00:00:00 00:00:00 MAHBOOB 2021-11-08 2021-11-12 Inpatient ER DAVIS, [facility] Medical ICU [id number] [facility] 03:10:00 20:10:00 RICKIE 2021-10-11 2021-10-11 Emergency X YARIFL, [facility] ERT [id number] Univers 05:52:00 06:48:00 HARDEEP reedy [facility] 2021-10-11 2021-10-11 Emergency [facility], [facility] [id number] Univers 05:52:00 06:48:00 [id number] [id number] [facility] 084 Branch 2020-11-21 2020-11-21 Outpatient DMG DMG [id number] [facility] 08:00:00 08:00:00 0528 Medica l Group 2020-05-05 2020-05-05 Outpatient JOHN [facility] PUL [id number] [facility] 13:21:00 15:55:00 PASTORA 2020-04-15 2020-04-15 AppointDOLLY [facility] [id number] [place] 14:00:00 14:00:00 t; Carlos DESIR [facility] M.D. [place] 2020-04-07 2020-04-07 Appointmen DOLLY LOPEZ Pulmonary & [id number] [place] 13:30:00 13:30:00 t; PASTORA LOPEZ [facility] Physi Carlos GUILLORY M.D. Results Test Description Test Time Test Comments Results Result Comments Source BLOOD CULTURE 2021-11-13 07:00:32 Test Item Value Reference Range Interpretation Comme nts CULTURE (BEAKER) (test code = 1095) No growth in 5 days BLOOD [id number] 07:00:32 Test Item Value Reference Range Interpretation Comments CULTURE (BEAKER) (test No growth in 5 days code = 1095) POCT-GLUCOSE [id number] 16:01:13 Test Item Value Reference Range Interpretation Comments POC-GLUCOSE METER 136 mg/dL 70-110 H : TESTED A T [facility] [address] (BEAKER) (test code [address], = 1538) [place] [address]: Full Charge Bookkeeper/Techni brooklyn ID = [id number] for Cerv antes, Crystal POCT-GLUCOSE [id number] 11:30:14 Test Item Value Reference Range Interpretation Comments POC-GLUCOSE METER 112 mg/dL 70-110 H : TESTED A T [facility] [address] (BEAKER) (test code [address], = 1538) [place] [address] 478: Full Charge Bookkeeper/Techni brooklyn ID = [id number] for Cerv antes, Crystal POCT-GLUCOSE [id number] 06:45:43 Test Item Value Reference Range Interpretation Comments POC-GLUCOSE METER 150 mg/dL 70-110 H : TESTED A T [facility] [address] (BEAKER) (test code [address], = 1538) [place] [address] 478: Full Charge Bookkeeper/Techni brooklyn ID = [id number] for Taina Poe [id number] 06:05:04 Test Item Value Reference Range Interpretation Comments MAGNESIUM (BEAKER) (test code = 2.2 mg/dL 1.5-3.0 627) Full Charge Bookkeeper ID - [id number] ID - [id number] ID - [id number] ID - [id number] METABOLIC [id number] 06:04:06 Test Item Value Reference Range Interpretation [...] 1092) DATA TO CALCULA TE ESTIMATED GFR. Full Charge Bookkeeper ID - [id number] ID - [id number] ID - LNIZUSFXJ692Diadgxxk ID - XOGIJMNPK702Zzumwvmn ID - APJKSSJFG986Psglduvu ID - NPUTAWGVB305Fhowfcis ID - OPNAEEUKY240Ntcmxhuu ID - THORZQFEH000Gquygpol ID - IMTOJHVLN377Bygxzlqp ID - [id number] W/PLT COUNT & AUTO DIFFERENTIAL 2021-11-12 05:53:41 [...] PERCENT (BEAKER) (test code = 2801) POCT-GLUCOSE [id number] 21:50:33 Test Item Value Reference Range Interpretation Comments POC-GLUCOSE METER 173 mg/dL 70-110 H : TESTED A T [facility] (BEAKER) (test code [facility], = 1538) [place] [id number]: Full Charge Bookkeeper/Techni brooklyn ID = [id number] for Taina Poe POCT-GLUCOSE [id number] 16:45:23 Test Item Value Reference Range Interpretation Comments POC-GLUCOSE METER 134 mg/dL 70-110 H : TESTED A T [facility] (BEAKER) (test code [facility], = 1538) [place] [id number]: Full Charge Bookkeeper/Techni brooklyn ID = [id number] for Dapr emont, Heather POCT-GLUCOSE [id number] 11:45:21 Test Item Value Reference Range Interpretation Comments POC-GLUCOSE METER 125 mg/dL 70-110 H : TESTED A T [facility] (BEAKER) (test code [facility], = 1538) [place] [address] 478: Full Charge Bookkeeper/Techni brooklyn ID = [id number] for Dapr emont, Heather SPUTUM CULTURE + GRAM [id number] 08:54:21 Test Item Value Reference Range Interpretation Comments CULTURE (BEAKER) 4+ Normal respiratory (test code = 1095) luis eduardo present GRAM STAIN RESULT 1+ White blood cells (BEAKER) (test code = seen 1123) GRAM STAIN RESULT 1+ epithelial cells (BEAKER) (test code = 47858) GRAM STAIN RESULT 3+ Mixed luis eduardo (BEAKER) (test code = 21374) RAD, CHEST, 1 VIEW, NON [id number] 07:33:00Reason for exam:->PNA [facility] : 1950 Sex: MFINAL REPORT CHEST AP PORTABLE SEMIERECT Comparison exam: 11/09/2021 History provided: Pneumonia Heart size normal. Chronic pleural thickening at the right base. Lungs free ofacute disease and vascularity normal. Signed: Triston Navarroort Verified Date/Time: 11/11/2021 07:33:28 Reading Location: [facility] Diagnostic Imaging Reading Room [place] [address] POCT-GLUCOSE [id number] 06:54:14 Test Item Value Reference Range Interpretation Comments POC-GLUCOSE METER 133 mg/dL 70-110 H : [facility] T [facility] (BEAKER) (test code [address], = 1538) [facility] [address] 478: Full Charge Bookkeeper/Techni brooklyn ID = [id number] for Taina Poe [id number] 04:53:42 Test Item Value Reference Range Interpretation Comments MAGNESIUM (BEAKER) (test code = 2.3 mg/dL 1.5-3.0 627) Full Charge Bookkeeper ID - [id number] ID - [id number] ID - [id number] ID - [id number] BASIC METABOLIC [id number] 04:52:53 Test Item Value Reference Range Interpretation [...] 1092) DATA TO CALCULA TE ESTIMATED GFR. Full Charge Bookkeeper ID - [id number] ID - dcpi68Xlujbrff ID - zjhw53Kflbssca ID - azmd61Dzbdxmyc ID - uada12Xznlkywk ID - khwr80Dgjngtpq ID - eclr76Ewdpiwvr ID - xryn56Drtwkhkh ID - kcwi70Wmmtzhrr ID - hiyg13YSV W/PLT COUNT & AUTO [id number] 04:28:30 Test Item Value Reference Range Interpretation [...] PERCENT (BEAKER) (test code = 2801) POCT-GLUCOSE [id number] 20:59:54 Test Item Value Reference Range Interpretation Comments POC-GLUCOSE METER 148 mg/dL 70-110 H : TESTED A T [facility] (BEAKER) (test code [address], = 1538) [place] [id number]: Full Charge Bookkeeper/Techni brooklyn ID = [id number] for Taina Poe POCT-GLUCOSE [id number] 15:51:00 Test Item Value Reference Range Interpretation Comments POC-GLUCOSE METER 156 mg/dL 70-110 H : TESTED A T [facility] [address] (BEAKER) (test code [address], = 1538) [facility] [address] 478: Full Charge Bookkeeper/Techni brooklyn ID = [id number] for Shazia Scott POCT-GLUCOSE [id number] 11:44:26 Test Item Value Reference Range Interpretation Comments POC-GLUCOSE METER 139 mg/dL 70-110 H : TESTED A T [facility] [address] (BEAKER) (test code [address], = 1538) [facility] [address] 478: Full Charge Bookkeeper/Techni brooklyn ID = [id number] for Shazia Scott BASIC METABOLIC [id number] 07:34:29 Test Item Value Reference Range Interpretation [...] 1092) DATA TO CALCULA TE ESTIMATED GFR. Full Charge Bookkeeper ID - DSENSONOperator ID - DSENSONOperator ID [...] (test code = 18 U/L 5-50 347) Full Charge Bookkeeper ID - DSENSONOperator ID - DSENSONOperator ID - DSENSONOperator ID - DSENSONOperator ID - DSENSONOperator ID - DSENSONOperator ID - DSENSONOperator ID - DSENSONOperator ID - DSENSONOperator ID - DSENSONCBC W/PLT COUNT & AUTO [id number] 07:19:24 Test Item Value Reference Range Interpretation [...] PERCENT (BEAKER) (test code = 2801) POCT-GLUCOSE [id number] 07:05:35 Test Item Value Reference Range Interpretation Comments POC-GLUCOSE METER 129 mg/dL 70-110 H : TESTED A T [facility] 131 ([facility]) (test code [facility], = 1538) [place] [address] 478: Full Charge Bookkeeper/Techni brooklyn ID = [id number] for Anayeli ety, Ruth POCT-GLUCOSE [id number] 22:17:06 Test Item Value Reference Range Interpretation Comments POC-GLUCOSE METER 135 mg/dL 70-110 H : TESTED A T [facility] 1317 ([facility]) (test code [facility], = 1538) [place] [address] 478: Full Charge Bookkeeper/Techni brooklyn ID = [id number] for Anayeli ety, Ruth POCT-GLUCOSE [id number] 16:21:48 Test Item Value Reference Range Interpretation Comments POC-GLUCOSE METER 178 mg/dL 70-110 H : Notified RN/MD: TESTED ([facility]) (test code AT [facility] [address] = 1538) [place] [address]: Full Charge Bookkeeper/Techni brooklyn ID = [id number] for Alee Calderon HEPATITIS PANEL, [id number] 14:58:49 Test Item Value Reference Range Interpretation Comments HEPATITIS A IGM ANTIBODY ([facility]) Nonreactive Nonreactive (test code = 498) HEPATITIS B CORE IGM ANTIBODY Nonreactive Nonreactive (MARLENA) (test code = 645) HEPATITIS C ANTIBODY ([facility]) Nonreactive Nonreactive (test code = 367) HEPATITIS B SURFACE ANTIGEN (2) Nonreactive Nonreactive ([facility]) (test code = 2585) Full Charge Bookkeeper ID - DBOperator ID - DBPOCT-GLUCOSE [id number] 12:30:38 Test Item Value Reference Range Interpretation Comments POC-GLUCOSE METER 184 mg/dL 70-110 H : Notified RN/MD: TESTED ([facility]) (test code AT [facility] [address] = 1538) [facility] [address]: Full Charge Bookkeeper/Techni brooklyn ID = [id number] for Francisco Javier h Lorita VENOUS DOPPLER LEGS, [id number] 10:54:00Reason for exam:->[facility] : 1950 Sex: MFINAL REPORT [...] MDReport Verified Date/Time: 11/09/2021 10:54:12 Reading Location: [facility] Radiology Reading Room RAD, CHEST, 1 VIEW, NON [id number] 09:00:00 Reason for exam:->PNAShould this be performed at the bedside?->Yes [facility] : 1950 [...] MDReport Verified Date/Time: 11/09/2021 09:00:23 Reading Location: [facility] RadiologyReading Room POCT- GLUCOSE [id number] 07:33:54 Test Item Value Reference Range Interpretation Comments POC-GLUCOSE METER 156 mg/dL 70-110 H : Notified RN/MD: TESTED ([facility]) (test code AT [facility] PO[facility] = 1538) [place] [address]: Full Charge Bookkeeper/Techni brooklyn ID = [id number] for Alec Bush [id number] 05:00:02 Test Item Value Reference Range Interpretation Comments PARTIAL THROMBOPLASTIN 111.6 seconds 23.0-35.0 H Berna l Information TIME (MARLENA) (test (Auto Ou tput) code = 760) HIV-1 ANTIGEN WITH HIV-1/2 [id number] 04:53:13 Test Item Value Reference Range Interpretation Comments HIV-1 ANTIGEN WITH HIV 1\T\2 Nonreactive Nonreactive ANTIBODY (2) (BEAKER) (test code = 2586) Full Charge Bookkeeper ID - [id number] METABOLIC [id number] 04:38:36 Test Item Value Reference Range Interpretation [...] 1092) DATA TO CALCULA TE ESTIMATED GFR. Full Charge Bookkeeper ID - [id number] ID - ZVBJFHZXR838Eonazfdw ID - CWCPFCPWW567Gbopyeok ID - RRIVUEWDR210Keqypowt ID - PBFYFAPPM333Cmnqagev ID - MEQWEHYGG241Bcozgkfn ID - PBCUOUKPK296Clffplff ID - MMBWTVRZJ504Mphubrbm ID - OOCRCRJHG962Prbmqcda ID - EYWEKLKCR233RETRRFL FUNCTION [id number] 04:36:24 Test Item Value Reference Range Interpretation [...] (test code = 22 U/L 5-50 347) Full Charge Bookkeeper ID - [id number] ID - IHKQHPOZM272Egtovxnp ID - NIGPMWAHN365Ttbxndmc ID - KPJFHKOSL554Nlqiaiaq ID - ROPHEQJRE365Iceiliia ID - MVZXUKHYP744Agolopqr ID - JIWPUQQZU802Jduvfynp ID - TOFOPWCXX676Nqzukmfy ID - TDALZKHZV407Vzbsglip ID - JBBGLQAJV405CHUNSGSCAN [id number] 04:30:27 Test Item Value Reference Range Interpretation Comments HEMOGLOBIN A1C (BEAKER) (test code = 5.8 % 4.3-6.1 368) Full Charge Bookkeeper ID - [id number] W/PLT COUNT & AUTO [id number] 04:17:15 Test Item Value Reference Range Interpretation [...] PERCENT (BEAKER) (test code = 2801) TROPONIN [id number] 01:16:05 Test Item Value Reference Range Interpretation [...] failure, acidosis, acute neurological disease, and persistent tachyarrhythmia.Full Charge Bookkeeper ID - [id number] [id number] 20:56:12 Test Item Value Reference Range Interpretation Comments POC-GLUCOSE METER 169 mg/dL 70-110 H : Notified RN/MD: TESTED (BEAKER) (test code AT [facility] [address] [place] [address] = 1538) MARIA TERESA [facility] [address]: Full Charge Bookkeeper/Techni brooklyn ID = [id number] for Dottie Collins [id number] 20:43:27 Test Item Value Reference Range Interpretation Comments PARTIAL THROMBOPLASTIN 43.3 seconds 23.0-35.0 H Final Information TIME (BEAKER) (test (Auto Ou tput) code = 760) [id number] 17:13:58 Test Item Value Reference Range Interpretation Comments GLUCOSE RANDOM (MARLENA) (test code 247 mg/dL 70-110 H = 652) Full Charge Bookkeeper ID - DSEVATROPONIN [id number] 17:03:16 Test Item Value Reference Range Interpretation [...] failure, acidosis, acute neurological disease, and persistent tachyarrhythmia.Full Charge Bookkeeper ID - HENRRYLEGIONELLA ANTIGEN, [id number] 14:05:17 Test Item Value Reference Range Interpretation Comments L. PNEUMOPHILA Negative - see Negative fo r L. SEROGP 1 UR AG comment pneumophila (MAR[place]NA) (test code serogrou p 1 antigen, = 1156) suggesting no r ecent or current infe ction with this serog roup. Legionellosis c annot be ruled out si nce other serogroup s and species may cau se disease. U/S, RENAL, [id number] 14:05:00Reason for exam:->elevated creatine [facility] : 1950 Sex: MFINAL REPORT [...] Jamison MDReportVerified Date/Time: 11/08/2021 14:05:00 Reading Location: [facility] C013Y CT Body Reading Room STREP PNEUMONIAE [id number] 14:04:46 Test Item Value Reference Range Interpretation [...] the detection limit of the test. TROPONIN [id number] 12:03:41 Test Item Value Reference Range Interpretation [...] failure, acidosis, acute neurological disease, and persistent tachyarrhythmia.Full Charge Bookkeeper ID - DSENSONBASIC METABOLIC [id number] 11:54:31 Test Item Value Reference Range Interpretation [...] 1092) DATA TO CALCULA TE ESTIMATED GFR. Full Charge Bookkeeper ID - DSENSONOperator ID - DSENSONOperator ID - DSENSONOperator ID - DSENSONOperator ID - DSENSONOperator ID - DSENSONOperator ID - DSENSONOperator ID - DSENSONOperator ID - DSENSONOperator ID - DSENSONOperator ID - DSENSONOperator ID - DSENSONOperator ID - [id number] 11:45:04 Test Item Value Reference Range Interpretation Comments PARTIAL THROMBOPLASTIN 44.4 seconds 23.0-35.0 H Final Information TIME (BEAKER) (test (Auto Ou tput) code = 760) POCT-GLUCOSE [id number] 11:43:30 Test Item Value Reference Range Interpretation Comments POC-GLUCOSE METER 141 mg/dL 70-110 H : Notified RN/MD: TESTED (BEAKER) (test code AT [facility] [address] = 1538) [facility] [address]: Full Charge Bookkeeper/Techni brooklyn ID = [id number] for Francisco Javier h, Alec PUL PERF IMAGING, [id number] 09:49:00Unlisted Reason for Exam - Click Yes and Enter Reason Below->No [facility]HAIL CARRION : 1950 Sex: MFINAL REPORT PROCEDURE: LUNG SCAN - perfusion only CPT CODE: 90568 INDICATION: Elevated D-dimer PROTOCOL: 5.8 mCi of [...] in the right lung. Signed: Abdias Tirado [facility] Verified Date/Time: 11/08/2021 09:49:42 CT, CHEST, WITHOUT [id number] 09:47:00Unlisted Reason for Exam - Click Yes and Enter Reason Below->No [facility]HAIL CARRION : 1950 Sex: MFINAL REPORT [...] 11/08/2021 09:47:14 RAD, CHEST, 1 VIEW, NON [id number] 08:47:00Reason for exam:->ETT placementShould this be performed at the bedside?->Yes [facility] MIKHAIL CARRION : 1950 Sex: MFINAL REPORT [...] Ou tput) code = 760) LACTIC ACID, [id number] 05:34:16 Test Item Value Reference Range Interpretation Comments LACTATE BLOOD 1.89 mmol/L See_Comment [Automated me ssage] VENOUS (2) (BEAKER) The syst em which (test code = 2872) generated this result transmitted ref erence range: 0.50-<2. 00. The reference range was not used to interpr et this result as normal/abnormal . Full Charge Bookkeeper ID - LITOOperator ID - LITOOperator ID - LITOOperator ID - ROSALBA [id number] 05:31:10 Test Item Value Reference Range Interpretation Comments PROCALCITONIN (BEAKER) (test code 0.15 ng/mL <0.05 H = 3036) SEPSIS RISK (ng/mL)Low: 0.05-0.50Intermediate: 0.51-2.00High: >=2.01URINALYSIS WITH MICROSCOPIC IF [id number] 05:13:27 Test Item Value Reference Range Interpretation [...] 463) SOURCE(BEAKER) (test code = 2795) URINALYSIS [id number] 05:13:21 Test Item Value Reference Range Interpretation Comments RBC UA-MANUAL (BEAKER) (test <5 /HPF code = 1659) WBC UA-MANUAL (BEAKER) (test None Seen /HPF code = 1661) BACTERIA (BEAKER) (test code = Occasional 517) SQUAMOUS EPITHELIAL MANUAL None Seen /HPF (BEAKER) (test code = 1663) HYALINE CASTS MANUAL (BEAKER) 0-5 /LPF (test code = 1665) TROPONIN [id number] 05:01:28 Test Item Value Reference Range Interpretation [...] failure, acidosis, acute neurological disease, and persistent tachyarrhythmia.Full Charge Bookkeeper ID - LITOBASIC METABOLIC PANEL 2021-11-08 05:00:17 [...] 1092) DATA TO CALCULA TE ESTIMATED GFR. Full Charge Bookkeeper ID - LITOOperator ID - LITOOperator ID - LITOOperator ID - LITOOperator ID - LITOOperator ID - LITOOperator ID - LITOOperator ID - LITOOperator ID - LITOOperator ID - LITOB-TYPE NATRIURETIC FACTOR (BNP)2021-11-08 05:00:11 Test Item Value Reference Range Interpretation Comments B-TYPE NATRIURETIC PEPTIDE (BEAKER) 480 pg/mL 0-100 H (test code = 700) Full Charge Bookkeeper ID - LITOCBC W/PLT COUNT & AUTO [id number] 04:56:38 Test Item Value Reference Range Interpretation [...] H PERCENT (BEAKER) (test code = 2801) [id number] 04:53:09 Test Item Value Reference Range Interpretation Comments D-DIMER QUANTITATIVE 5.80 MG/L FEU <0.50 H Final Information (BEAKER) (test code = (Auto Output) 219) REGARDING D-DIMER RESULTS: The 98% NPV (Negative Predictive Value) for DVT/PE exclusion is 0.50 mg/LFEU as suggested by the rail layer and as approved by the FDA.PROTHROMBIN TIME/[id number] 04:52:30 Test Item Value Reference Range Interpretation Comments PROTIME (BEAKER) 11.0 seconds 9.3-12.0 Final Infor mation (test code = 759) (Auto Outp ut) INR (BEAKER) (test 1.00 See_Comment Final Inf ormation code = 370) (Auto Output) [Automated mess age] The system In Flow generated this result transmitted ref erence range: <=5.90. The reference range was not used to int erpret this result as normal/abnormal . RECOMMENDED COUMADIN/WARFARIN INR THERAPY RANGESSTANDARD DOSE: 2.0 - 3.0 Includes: PROPHYLAXIS forvenous thrombosis, systemic embolization; TREATMENT for venous thrombosis and/or pulmonary embolus.HIGH RISK: Target INR is 2.5-3.5 for patients with mechanical heart valves.HEMOGLOBIN [id number] 04:51:27 Test Item Value Reference Range Interpretation Comments HEMOGLOBIN A1C (BEAKER) (test code = 5.7 % 4.3-6.1 368) Full Charge Bookkeeper ID - LITOHEPATIC FUNCTION [id number] 04:50:07 Test Item Value Reference Range Interpretation [...] (test code = 31 U/L 5-50 347) Full Charge Bookkeeper ID - LITOOperator ID - LITOOperator ID - LITOOperator ID - LITOOperator ID - LITOOperator ID - LITOOperator ID - [id number] 04:49:45 Test Item Value Reference Range Interpretation Comments MAGNESIUM (BEAKER) (test code = 2.8 mg/dL 1.5-3.0 627) Full Charge Bookkeeper ID - LITOOperator ID - LITOOperator ID - LITOOperator ID - ROSALBA [id number] 04:46:46 Test Item Value Reference Range Interpretation Comments PHOSPHORUS (WALESKAAKER) (test code = 4.8 mg/dL 2.5-4.5 H 604) Full Charge Bookkeeper ID - LITOPOCT-GLUCOSE [id number] 04:11:36 Test Item Value Reference Range Interpretation Comments POC-GLUCOSE METER 156 mg/dL 70-110 H : TESTED A T SLSL 1317 (BEAKER) (test code [address], = 1538) [facility] [place] 77 478: Full Charge Bookkeeper/Techni [place] ID = [id number] for Real Lei RAD, ABDOMEN/KUB 1 VIEW [id number] 04:02:00Reason for exam:->NG tube [facility] : 1950 Sex: MFINAL REPORT [...] 11/08/2021 04:02:40 RAD, CHEST, 1 VIEW, NON [id number] 03:57:00Reason for exam:->AHRFShould this be performed at the bedside?->Yes [facility] : 1950 Sex: [...] contours. Additional findings: None. Signed: Harman Whaley MDRepkansas city va medical center Verified Date/Time: 11/08/2021 03:57:41 BLOOD GAS, [id number] 03:54:11 Test Item Value Reference Range Interpretation [...]
== END 2022-01-13 17:09 | disposition home or self-care (01) ==
LOC: ER 21:22 → ERHOLD 01-13 00:23 → 4TH 01-13 05:42
PROVIDERS: ADMIT Internal Medicine; ATTEND Internal Medicine
DX: J20.9 Acute bronchitis, unspecified (principal); J44.0 Chronic obstructive pulmonary disease with (acute) lower respiratory infection; I12.9 Hypertensive chronic kidney disease with stage 1 through stage 4 chronic kidney disease, or unspecified chronic kidney disease; N18.32 Chronic kidney disease, stage 3b; I25.10 Atherosclerotic heart disease of native coronary artery without angina pectoris; I25.2 Old myocardial infarction; F17.210 Nicotine dependence, cigarettes, uncomplicated; Z95.5 Presence of coronary angioplasty implant and graft; Z79.899 Other long term (current) drug therapy; Z20.822 Contact with and (suspected) exposure to COVID-19; Z82.49 Family history of ischemic heart disease and other diseases of the circulatory system; Z83.79 Family history of other diseases of the digestive system; Z80.9 Family history of malignant neoplasm, unspecified; Z83.6 Family history of other diseases of the respiratory system
CPT/HCPCS: 96365; 71045; 96375; 99285; U0003; J3475; J2930; J2920 ×2; G0378 ×2

== ENCOUNTER 2022-01-21 16:06 | Inpatient (IN) | payer MEDICARE ==
[2022-01-21] MEDS ORDERED: MAGNESIUM SULFATE 1 gm IVPB 1 GM/100 ML BAG IV ONE (16:35)
[2022-01-21] MEDS ORDERED: ALBUTEROL 2.5 MG/3 ML NEB SOL ONE (16:35)
[2022-01-21] MEDS ORDERED: IPRATROPIUM BROM 0.5MG/2.5ML ONE (16:35)
--- NOTE | 2022-01-21 16:39 | RAD REPORT ---
EXAM DESCRIPTION: RAD - Chest Single View - 01/21/2022 4:27 pm CLINICAL HISTORY: COPD COMPARISON: Portable 01/12/2022 TECHNIQUE: AP portable chest image was obtained 01/21/2022 4:27 pm . FINDINGS: Patient has very extensive interstitial fibrotic lung disease worse in the lower right fred g field. Right costophrenic angle blunting is present and stable. Severity of disease could mask supe rimposed acute edema or infiltrate. Overall findings are not clearly different. Heart and vasculature are normal. No pneumothorax. No large pleural effusion No acute bony abnormali ty seen. No acute aortic findings suspected. IMPRESSION: Chronic pleural and parenchymal findings match prior imaging. No acute process seen.
[2022-01-21 18:13] LABS: Absolute Lymphocytes (CBC) 1.7 K/uL (0.7-4.9); Hematocrit 38.7 % (39.6-49.0); Lymphocytes % 8.7 % (15.3-44.8); MCV 92.7 fL (80-100); RBC Red Blood Cell Count 4.18 M/uL (4.33-5.43)
[2022-01-21 18:16] LABS: Protime INR 0.96
[2022-01-21 18:36] LABS: Potassium 5.4 mmol/L (3.5-5.1)
[2022-01-21 18:39] LABS: Troponin High Sensitivity 130.9 pg/mL (<58.9)
--- NOTE | 2022-01-21 21:28 | ER ---
Nurse's Notes [facility] Name: Gabo Chow Sr Age: 71 yrs Sex: Male : 1950 Arrival Date: 01/21/2022 Time: 16:11 Bed 27 Private MD: Diagnosis: COPD/ Chronic obstructive pulmonary disease with (acute) exacerbation Presentation: 01/21 16:13 Chief complaint: EMS states: COPD exacerbation , SOB today, was 40% on RA at home, gave iw 125 solu-Medrol, was placed on 3 L NC, O2 sat up to 96%, pt denies chest pain. Coronavirus screen: Client presents with at least one sign or symptom that may indicate coronavirus-19. Ebola Screen: Patient negative for fever greater than or equal to 101.5 degrees Fahrenheit, and additional compatible Ebola Virus Disease symptoms Patient denies exposure to infectious person. Patient denies travel to an Ebola-affected area in the 21 days before illness onset. No symptoms or risks identified at this time. Initial Sepsis Screen: Does the patient meet any 2 criteria? RR > 20 per min. Does the patient have a suspected source of infection?. Risk Assessment: Do you want to hurt yourself or someone else? Patient reports no desire to harm self or others. Onset of symptoms was January 21, 2022. 16:13 Method Of Arrival: EMS: [facility] iw 16:13 Acuity: ALLI 3 iw Triage Assessment: 16:15 General: Appears distressed, Behavior is calm, cooperative, appropriate for age. Pain: bp Denies pain. EENT: No deficits noted. Neuro: No deficits noted. Cardiovascular: Rhythm is sinus rhythm. Respiratory: Reports shortness of breath Onset: The symptoms/episode began/occurred today, the patient has moderate shortness of breath. GI: No signs and/or symptoms were reported involving the gastrointestinal system. : No signs and/or symptoms were reported regarding the genitourinary system. Derm: No deficits noted. Musculoskeletal: No deficits noted. Historical: - Allergies: 20:54 No Known Allergies; sm5 - PMHx: 16:15 CHF; COPD; Hypertension; Myocardial infarction; iw - PSHx: 16:15 Stented artery; iw - Immunization history:: Adult Immunizations up to date. - Social history:: Smoking status: unknown. Screenin:29 Abuse screen: Denies threats or abuse. Denies injuries from another. Nutritional bp screening: No deficits noted. Tuberculosis screening: No symptoms or risk factors identified. Fall Risk None identified. Assessment: 16:15 General: SEE TRIAGE NOTE. bp 17:27 Reassessment: No changes from previously documented assessment. Patient and/or family bp updated on plan of care and expected duration. Pain level reassessed. Cardiovascular: Rhythm is sinus rhythm. Respiratory: Airway is patent Respiratory effort is even, Breath sounds with wheezes bilaterally. 18:23 Reassessment: No changes from previously documented assessment. Patient and/or family bp updated on plan of care and expected duration. Pain level reassessed. 19:34 General: Appears in no apparent distress. Behavior is cooperative. Neuro: Level of sm5 Consciousness is awake, alert, obeys commands, Oriented to person, place, time, situation. Cardiovascular: Denies chest pain, Capillary refill < 3 seconds Patient's skin is warm and dry. Respiratory: Airway is patent Trachea midline Respiratory effort is even, unlabored. 20:50 Reassessment: No changes from previously documented assessment. Patient and/or family sm5 updated on plan of care and expected duration. Pain level reassessed. Patient is alert, oriented x 3, equal unlabored respirations, skin warm/dry/pink. Vital Signs: 16:13 BP 131 / 78; Pulse 72; Resp 24; Temp 98.4(TE); Pulse Ox 92% on R/A; iw 17:27 BP 93 / 52; Pulse 58; Resp 24; Pulse Ox 100% ; bp 18:23 BP 109 / 59; Pulse 54; Resp 21; Pulse Ox 92% ; bp 19:35 BP 138 / 59; Pulse 59; Resp 22; Pulse Ox 94% on R/A; sm5 20:50 BP 109 / 62; Pulse 52; Resp 17; Pulse Ox 93% on R/A; sm5 22:01 BP 103 / 55; Pulse 59; Resp 20; Pulse Ox 99% on R/A; sm5 ED Course: 16:11 Patient arrived in ED. bp 16:13 Jose Easton NP is PHCP. pm1 16:13 Vamshi Dickinson MD is Attending Physician. pm1 16:15 Triage completed. iw 16:15 Arm band placed on. iw 16:25 Initial lab(s) drawn, by me, sent to lab. Maintain EMS IV. Dressing intact. Good blood iw return noted. Site clean \T\ dry. Gauge \T\ site: 20 left hand. 16:29 XRAY Chest (1 view) In Process Unspecified. EDMS 16:55 J Luis Sue, RN is Primary Nurse. bp 17:29 Patient has correct armband on for positive identification. Bed in low position. Call bp light in reach. Side rails up X2. 21:27 Joesph Leslie MD is Hospitalizing Provider. pm1 01/22 00:44 No provider procedures requiring assistance completed. Patient admitted, IV remains in lg3 place. intact, No redness/swelling at site. Administered Medications: 01/21 16:20 CANCELLED (Physician Discretion): SOLU-Medrol (methylPrednisoLONE) 125 mg IVP once pm1 16:30 Drug: Magnesium Sulfate 1 grams Route: IVPB; Infused Over: 1 hrs; Site: left hand; bp 16:37 Drug: Albuterol - atroVENT (ipratropium) (3:1) (2.5 mg - 0.5 mg) 3 ml Route: Nebulizer; iw 19:11 Follow up: Response: No adverse reaction bp Medication: 01/22 00:44 VIS not applicable for this client. lg3 Outcome: 01/21 21:27 Decision to Hospitalize by Provider. pm1 01/22 00:44 Admitted to ER Hold. Please see [facility] for further documentation. lg3 Condition: stable Instructed on the need for admit. 14:08 Patient left the ED. eb Signatures: Dispatcher [employer] EDMS Mireille Yang RN RN iw Jose Easton, JOSE [employer]AV[employer] EQUIPMENT DIESEL MECHANIC pm1 J Luis Sue, RN RN bp Ruth Lovell Ena Demarco RN RN lg3 Yelena Redman RN RN sm5 Corrections: (The following items were deleted from the chart) 01/21 16:23 16:13 BP 131 / 78; Pulse 72bpm; Resp 24bpm; Pulse Ox 92% RA; iw iw
--- NOTE | 2022-01-21 21:28 | EDPHYS ---
Physician Documentation [facility] Name: Gabo Chow Sr Age: 71 yrs Sex: Male : 1950 Arrival Date: 01/21/2022 Time: 16:11 Bed 27 Private MD: ED Physician Vamshi Dickinson HPI: 01/21 16:37 This 71 yrs old Male presents to ER via EMS with complaints of Shortness Of Breath. pm1 16:37 The patient has shortness of breath at rest, that occurred at home. Onset: The pm1 symptoms/episode began/occurred today. Duration: The symptoms are continuous. The patient's shortness of breath is alleviated by application of supplemental oxygen, by EMS. Associated signs and symptoms: Pertinent positives: non-productive cough, Pertinent negatives: chest pain, diaphoresis, dizziness, fever, nausea, vomiting. Severity of symptoms: in the emergency department the symptoms have improved. The patient has experienced similar episodes in the past, multiple times, today's symptoms are similar, to previous COPD exacerbation . The patient has been recently seen by a physician: the patient's primary care provider, Dr. Leslie earlier today, with similar presenting complaints, follow up for recent admissions of COPD exacerbations that required hospitalization. Historical: - Allergies: 20:54 No Known Allergies; sm5 - PMHx: 16:15 CHF; COPD; Hypertension; Myocardial infarction; iw - PSHx: 16:15 Stented artery; iw - Immunization history:: Adult Immunizations up to date. - Social history:: Smoking status: unknown. ROS: 16:37 Constitutional: Negative for fever, chills, and weight loss, Cardiovascular: Negative pm1 for chest pain, palpitations, and edema. 16:37 Abdomen/GI: Negative for abdominal pain, nausea, vomiting, diarrhea, and constipation, Back: Negative for injury and pain, MS/Extremity: Negative for injury and deformity, Skin: Negative for injury, rash, and discoloration, Neuro: Negative for headache, weakness, numbness, tingling, and seizure. 16:37 Respiratory: Positive for cough, shortness of breath. 16:37 All other systems are negative. Exam: 16:37 Constitutional: This is a well developed, well nourished patient who is awake, alert, pm1 and in no acute distress. Head/Face: Normocephalic, atraumatic. 16:37 Back: No spinal tenderness. No costovertebral tenderness. Full range of motion. Skin: Warm, dry with normal turgor. Normal color with no rashes, no lesions, and no evidence of cellulitis. MS/ Extremity: Pulses equal, no cyanosis. Neurovascular intact. Full, normal range of motion. 16:37 Cardiovascular: Exam negative for Rate: normal, Rhythm: regular, Pulses: no pulse deficits are appreciated, Heart sounds: normal, normal S1and S2, Edema: is not appreciated. 16:37 Respiratory: Exam negative for acute changes, respiratory distress, shortness of breath, Breath sounds: wheezing: expiratory that is moderate, is heard diffusely. 16:37 Abdomen/GI: Exam negative for acute changes, Inspection: abdomen appears normal, Palpation: abdomen is soft and non-tender, in all quadrants. 16:37 Neuro: Exam negative for acute changes, Orientation: is normal, Mentation: is normal, Motor: is normal, moves all fours. 19:21 ECG was reviewed by the Attending Physician. pm1 Vital Signs: 16:13 BP 131 / 78; Pulse 72; Resp 24; Temp 98.4(TE); Pulse Ox 92% on R/A; iw 17:27 BP 93 / 52; Pulse 58; Resp 24; Pulse Ox 100% ; bp 18:23 BP 109 / 59; Pulse 54; Resp 21; Pulse Ox 92% ; bp 19:35 BP 138 / 59; Pulse 59; Resp 22; Pulse Ox 94% on R/A; sm5 20:50 BP 109 / 62; Pulse 52; Resp 17; Pulse Ox 93% on R/A; sm5 22:01 BP 103 / 55; Pulse 59; Resp 20; Pulse Ox 99% on R/A; sm5 MDM: 16:17 Patient medically screened. pm1 18:41 Data reviewed: vital signs. Data interpreted: Pulse oximetry: on room air is 92 %. pm1 Interpretation: acceptable with COPD history. 20:30 ED course: Left message for admission at 1903 and 2030. pm1 21:24 Physician consultation: Joesph Leslie MD was contacted at 21:25, regarding admission, pm1 patient's condition, and will see patient tomorrow, would like medications started, continued steroids and breathing treatments. 21:24 ED course: Dr. Leslie would like patient taken off oxygen and to monitor his pulse ox pm1 without supplemental oxygen. He ambulated patient in his office today without any hypoxia present. 01/21 16:13 Order name: Basic Metabolic Panel; Complete Time: 18:50 iw 01/21 16:13 Order name: CBC with Diff; Complete Time: 18:17 iw 01/21 16:13 Order name: NT PRO-BNP; Complete Time: 18:50 iw 01/21 16:13 Order name: PT-INR; Complete Time: 18:17 iw 01/21 16:13 Order name: Troponin HS; Complete Time: 18:50 iw 01/21 16:22 Order name: Flu; Complete Time: 17:12 pm1 01/21 16:13 Order name: XRAY Chest (1 view); Complete Time: 16:43 iw 01/21 16:22 Order name: COVID-19 SARS RT PCR (Document "Date of Onset" if Symptomatic); Complete pm1 Time: 18:09 01/21 19:19 Order name: Troponin High Sensitivity; Complete Time: 20:30 pm1 01/22 02:17 Order name: CBC with Automated Diff; Complete Time: 03:47 EDMS 01/22 02:19 Order name: Basic Metabolic Panel; Complete Time: 03:47 EDMS 01/21 16:13 Order name: EKG; Complete Time: 16:14 iw 01/21 16:13 Order name: Cardiac monitoring; Complete Time: 16:25 iw 01/21 16:13 Order name: EKG - Nurse/Tech; Complete Time: 16:37 iw 01/21 16:13 Order name: IV Saline Lock; Complete Time: 16:25 iw 01/21 16:13 Order name: Labs collected and sent; Complete Time: 16:37 iw 01/21 16:13 Order name: O2 Per Protocol; Complete Time: 16:25 iw 01/21 16:13 Order name: O2 Sat Monitoring; Complete Time: 16:37 iw EC:21 Rate is 76 beats/min. Rhythm is regular, Normal Sinus Rhythm with No ectopy. QRS pm1 interval is normal. QT interval is normal. No Q waves. T waves are Inverted. No ST changes noted. Clinical impression: NSR w/ Non-specific ST/T Changes. No change from previous ECG on January 10, 2022. Administered Medications: 16:20 CANCELLED (Physician Discretion): SOLU-Medrol (methylPrednisoLONE) 125 mg IVP once pm1 16:30 Drug: Magnesium Sulfate 1 grams Route: IVPB; Infused Over: 1 hrs; Site: left hand; bp 16:37 Drug: Albuterol - atroVENT (ipratropium) (3:1) (2.5 mg - 0.5 mg) 3 ml Route: Nebulizer; iw 19:11 Follow up: Response: No adverse reaction bp Disposition Summary: 01/21/22 21:27 Hospitalization Ordered Hospitalization Status: Observation pm1 Provider: Joesph Leslie pm1 Condition: Stable pm1 Problem: new pm1 Symptoms: have improved pm1 Bed/Room Type: Standard pm1 Location: Telemetry/MedSurg (observation)(01/22/22 13:41) Room Assignment: [facility](01/22/22 13:41) dw Diagnosis - COPD/ Chronic obstructive pulmonary disease with (acute) exacerbation pm1 Forms: - Medication Reconciliation Form pm1 - SBAR form pm1 Signatures: Dispatcher [employer] EDMS Radha Magana RN Gabriela Sanchez RN Mireille Henriquez RN DERIC iw Jose Easton NP VENDOR MANAGEMENT ASSOCIATE pm1 J Luis Sue RN Yelena Roque RN RN sm5 Monica Ling PA PA sb3 Corrections: (The following items were deleted from the chart) 16:20 16:19 SOLU-Medrol (methylPrednisoLONE) 125 mg IVP once ordered. pm1 pm1 21:27 21:24 Physician consultation: Joesph Leslie MD was contacted at 21:25, regarding pm1 admission, patient's condition, and will see patient tomorrow, pm1 21: 21:27 Telemetry/MedSurg (observation) pm1 21:27 pm1 01/22 13:41 01/21 [facility] 01/22 13:41 01/21 21: ERHOLD- [facility]
[2022-01-21 22:17] VITALS: BMI 22.6
[2022-01-21] MEDS ORDERED: IPRATROPIUM BROM 0.5MG/2.5ML NEB PRN (22:17)
[2022-01-21] MEDS ORDERED: ALBUTEROL 2.5 MG/3 ML NEB SOL NEB PRN (22:17)
[2022-01-22] MEDS: METHYLPREDNISOLONE 40 MG INJ IV SCH ×3 (00:35→17:03)
[2022-01-22] MEDS ORDERED: METHYLPREDNISOLONE 40 MG INJ ONE ×2 (00:42→08:08)
[2022-01-22 02:06] LABS: Absolute Lymphocytes (CBC) 1.9 K/uL (0.7-4.9); Hematocrit 38.9 % (39.6-49.0); Lymphocytes % 15.4 % (15.3-44.8); MPV 8.2 fL (7.6-11.3); RBC Red Blood Cell Count 4.22 M/uL (4.33-5.43)
[2022-01-22 02:18] LABS: Potassium 5.5 mmol/L (3.5-5.1)
[2022-01-22] MEDS ORDERED: METHYLPREDNISOLONE 125 MG INJ ONE (07:51)
[2022-01-22] MEDS ORDERED: ASPIRIN 81 MG CHEWABLE TABLET ONE (07:51)
[2022-01-22] MEDS: ASPIRIN EC 81 MG TAB PO SCH (07:58)
[2022-01-22] MEDS ORDERED: PNEUMOCOCCAL VACCINE 0.5 ML IMVAC ONE (08:00)
[2022-01-22] MEDS ORDERED: ALBUTEROL 2.5 MG/3 ML NEB SOL ONE (08:02)
[2022-01-22] MEDS ORDERED: IPRATROPIUM BROM 0.5MG/2.5ML ONE (08:03)
--- NOTE | 2022-01-22 08:10 | P.HP ---
Certification for Inpatient Patient admitted to: Inpatient With expected LOS: >2 Midnights Patient will require the following post-hospital care: None Practitioner: I am a practitioner with admitting privileges, knowledge of patient current condition, hospital course, and medical plan of care. Services: Services provided to patient in accordance with Admission requirements found in Title 42 Section 412.3 of the Code of Federal Regulations Patient History Date of Service: 01/22/22 Primary Care Provider: Anuj Reason for admission: Copd exacerbation History of Present Illness: Patient is well known to me. Suffers from copd exacerbation and nicotine dependence. He was seen in the office 2 days ago. Was wheezing. However maintained a pulse ox without oxygen and was on steroids. The patient desaturates. Usually after having a cigarette. He denies smoking this admission. he had on the last admission. Allergies No Known Allergies Allergy (Verified 05/20/12 16:57) Home Medications: Amlodipine Besylate 5 mg PO DAILY 01/10/22 Furosemide 40 mg PO DAILY 01/10/22 carvediloL [Carvedilol] 6.25 mg PO BID 6AM 6PM 01/10/22 lisinopriL [Lisinopril] 40 mg PO DAILY 01/10/22 predniSONE [Deltasone*] 10 mg PO BID 9 Days #21 tab 01/12/22 - Past Medical/Surgical History Diabetic: No -: HTN -: COPD -: [place] -: CAD -: heart stent - Family History Father -: GI disease, Other (see notes) Notes: Heart attack Mother -: Cancer Notes: COPd - Social History Smoking Status: Current every day smoker Alcohol use: No CD- Drugs: No Caffeine use: Yes Place of Residence: Home Review of Systems Respiratory: Shortness of Breath Physical Examination - Vital Signs Temperature: 98.4 F Blood Pressure: 123/59 Pulse: 70 Respirations: 15 Pulse Ox (%): 94 - Physical Exam General: Alert, In no apparent distress HEENT: Atraumatic, PERRLA, Mucous membr. moist/pink, EOMI, Sclerae nonicteric Neck: Supple, 2+ carotid pulse no bruit, No LAD, Without JVD or thyroid abnormality Respiratory: Diminished, Expiratory wheezes Cardiovascular: Regular rate/rhythm, Normal S1 S2 Gastrointestinal: Normal bowel sounds, No tenderness Musculoskeletal: No tenderness Integumentary: No rashes Neurological: Normal gait, Normal speech, Normal strength at 5/5 x4 extr, Normal tone, Normal affect Lymphatics: No axilla or inguinal lymphadenopathy - Studies Laboratory Data (last 24 hrs) 01/21/22 18:00: PT 10.5, INR 0.96 01/21/22 18:00: WBC 19.5 H D, Hgb 12.8 L, Hct 38.7 L, Plt Count 220 01/21/22 18:00: Sodium 136, Potassium 5.4 H, BUN 33 H, Creatinine 2.04 H, Glucose 236 H Microbiology Data (last 24 hrs): 01/21/22 16:35 Nasopharnyx Influenza Type A Antigen Screen - Final 01/21/22 16:35 Nasopharnyx Influenza Type B Antigen Screen - Final Assessment and Plan - Problems (Diagnosis) (1) Acute bronchitis with COPD Current Visit: No Status: Acute Plan: considering his recurrent hospitalization. Will consult Dr. Workman. Will keep him in a few more days. He is a great risk of readmission., (2) CKD (chronic kidney disease) stage 3, GFR 30-59 ml/min Current Visit: No Status: Chronic Plan: Patient is at his baseline creatine of 2.0. no need for fluid Qualifiers: Chronic kidney disease stage 3 subtype: stage 3a (GFR 45-59) Qualified Code(s): N18.31 - Chronic kidney disease, stage 3a (3) HTN (hypertension) Current Visit: No Status: Chronic Plan: restart home meds. Will adjust as needed Qualifiers: (4) Nicotine dependence Current Visit: No Status: Chronic Plan: Have discussed smoking cessation frequently. He has refused medications. Such as chantix or buproprion. Qualifiers: Nicotine product type: cigarettes Discharge Plan: Home Plan to discharge in: 24 Hours - Advance Directives Does patient have a Living Will: No Does patient have a Durable POA for Healthcare: No - Code Status/Comfort Care Code Status Assessed: No Code Status: Full Code Physician Review: Patient Assessed, Agree with Above Assessment and Plan Critical Care: No Time Spent Managing Pts Care (In Minutes): 40
[2022-01-22] MEDS ORDERED: LEVALBUTEROL 0.63 MG/3 ML NEB NEB PRN (08:11)
[2022-01-22] MEDS: AMLODIPINE 5 MG TAB PO SCH (09:00)
[2022-01-22] MEDS ORDERED: AMLODIPINE 5 MG TAB ONE (09:48)
--- NOTE | 2022-01-22 15:21 | EKG ---
Test Date: 2022-01-21 Test Time: 16:32:50 Turner Machine Operator: DARCY MEASUREMENT RESULTS: Intervals: Rate: 76 OK: 154 QRSD: 122 QT: 402 QTc: 452 [place]: P: 90 OK: 154 QRS: 7 T: 200 INTERPRETIVE STATEMENTS: Normal sinus rhythm Nonspecific intraventricular conduction delay ST & T wave abnormality, consider inferolateral ischemia Abnormal ECG Compared to ECG 01/10/2022 01:45:22 Intraventricular conduction delay now present ST (T wave) deviation now present Sinus bradycardia no longer present Myocardial infarct finding no longer present T-wave abnormality no longer present Possible ischemia still present Electronically Signed On 01-22-22 15:19:26 CDT by Jerardo Hussein
--- NOTE | 2022-01-22 16:28 | P.CNS ---
Date of Consult: 01/22/22 Primary Care Provider: Anuj Chief Complaint: Copd exacerbation History of Present Illness: Patient is 71 years of age with recurrent frequent exacerbations/admitted yet again with an exacerbation patient does take Trelegy albuterol inhaler and steroids at home he has significant relief with the use of oxygen also coughing up some productive phlegm quit smoking recently history of coronary artery disease Allergies No Known Allergies Allergy (Verified 05/20/12 16:57) Home Medications: Amlodipine Besylate 5 mg PO DAILY 01/10/22 Furosemide 40 mg PO DAILY 01/10/22 carvediloL [Carvedilol] 6.25 mg PO BID 6AM 6PM 01/10/22 lisinopriL [Lisinopril] 40 mg PO DAILY 01/10/22 predniSONE [Deltasone*] 10 mg PO BID 9 Days #21 tab 01/12/22 - Past Medical/Surgical History Diabetic: No -: HTN -: COPD -: [place] -: CAD -: heart stent - Family History Father Medical History: GI disease, Other (see notes) Notes: Heart attack Mother Medical History: Cancer Notes: COPd - Social History Smoking Status: Unknown if ever smoked Alcohol use: No CD- Drugs: No Caffeine use: Yes Place of Residence: Home Review of Systems 10-point ROS is otherwise unremarkable Physical Examination Temp Pulse Resp BP Pulse Ox 98.4 F 59 20 103/55 L 94 01/22/22 15:02 01/22/22 15:13 01/22/22 15:13 01/22/22 15:13 01/22/22 08:10 General: Alert, In no apparent distress, Oriented x3 Respiratory: Clear to auscultation bilaterally, Diminished Cardiovascular: No edema, Regular rate/rhythm Gastrointestinal: Normal bowel sounds, Soft and benign Laboratory Data (last 24 hrs) 01/21/22 18:00: PT 10.5, INR 0.96 01/21/22 18:00: WBC 19.5 H D, Hgb 12.8 L, Hct 38.7 L, Plt Count 220 01/21/22 18:00: Sodium 136, Potassium 5.4 H, BUN 33 H, Creatinine 2.04 H, Glucose 236 H - Problems (1) COPD exacerbation Current Visit: Yes Status: Acute Plan: Patient is 71 years of age admitted with COPD exacerbation this is the fifth time he has been in the hospital finds relief with oxygen he is compliant with his trilogy and steroids patient's white count is elevated recommend treating with levofloxacin for 7 days 500 mg daily patient has chronic renal failure mild hyperkalemia chest x-ray today shows COPD changes patient requests oxygen can write a prescription patient can keep a bottle of oxygen at home may have to pay for it not qualify to check ABGs holding KATIA[place] inhibitor to see if that helps his renal function chest x-ray is suggestive of a pneumonia we will order a CT scan
[2022-01-22] MEDS: LEVALBUTEROL 0.63 MG/3 ML NEB NEB PRN ×2 (16:45→20:15)
[2022-01-22] MEDS: levoFLOXacin 250 MG TAB PO SCH (17:03)
[2022-01-22 17:37] LABS: Arterial Blood Carboxyhemoglob 1.7 % (0-1.5); Blood Gas Oxyhemoglobin 94.4 % (94-97); Blood O2 Saturation 97.1 % (92-98.5)
--- NOTE | 2022-01-22 18:51 | RAD REPORT ---
EXAM DESCRIPTION: CT - Thorax Wo Con CLINICAL HISTORY: Chest pain Abnormal x-ray COMPARISON: Chest Single View dated 01/21/2022 FINDINGS: Mild diffuse COPD is present. Calcified granuloma is present posterior right upper lobe. C hronic pleural and parenchymal scarring is seen in right lower hemithorax. No pleural or pericardial effusion. No pneumothorax. No axillary, mediastinal or hilar adenopathy. No concerning bony finding. No gross upper abdominal finding. All CT scans are performed using dose optimization technique as appropriate and may include automated exposure control or mA/KV adjustment according to patient size. IMPRESSION: No acute process is identified. Chronic pleural thickening the right base and areas of scarring present in the right lower lung.
[2022-01-22] MEDS: IPRATROPIUM BROM 0.5MG/2.5ML NEB SCH (20:15)
[2022-01-23] MEDS: METHYLPREDNISOLONE 40 MG INJ IV SCH ×3 (00:27→16:59)
[2022-01-23] MEDS: IPRATROPIUM BROM 0.5MG/2.5ML NEB SCH ×4 (01:55→19:40)
[2022-01-23 06:37] LABS: Albumin 2.7 g/dL (3.4-5.0); Bilirubin Total 0.2 mg/dL (0.2-1.0); Protein, Total 5.9 g/dL (6.4-8.2)
[2022-01-23 06:40] LABS: Potassium 5.4 mmol/L (3.5-5.1)
[2022-01-23] MEDS: LEVALBUTEROL 0.63 MG/3 ML NEB NEB PRN ×2 (07:53→13:59)
[2022-01-23] MEDS ORDERED: levoFLOXacin 250 MG TAB PO SCH (09:00)
[2022-01-23] MEDS: levoFLOXacin 250 MG TAB PO SCH (09:25)
[2022-01-23] MEDS: AMLODIPINE 5 MG TAB PO SCH (09:25)
[2022-01-23] MEDS: ASPIRIN EC 81 MG TAB PO SCH (09:25)
[2022-01-23] MEDS ORDERED: PNEUMOCOCCAL VACCINE 0.5 ML IMVAC ONE (12:00)
--- NOTE | 2022-01-23 12:11 | P.PN ---
Subjective Date of Service: 01/23/22 Primary Care Provider: Anuj Chief Complaint: Copd exacerbation Subjective: Improving Review of Systems 10-point ROS is otherwise unremarkable Physical Examination - Vital Signs Temperature: 97.6 F Blood Pressure: 122/51 Pulse: 54 Respirations: 22 Pulse Ox (%): 99 - Physical Exam General: Alert, In no apparent distress HEENT: Atraumatic, PERRLA, EOMI Neck: Supple, JVD not distended Respiratory: Clear to auscultation bilaterally, Normal air movement Cardiovascular: Regular rate/rhythm, Normal S1 S2 Gastrointestinal: Normal bowel sounds, No tenderness Musculoskeletal: No tenderness Integumentary: No rashes Neurological: Normal speech, Normal tone, Normal affect Lymphatics: No axilla or inguinal lymphadenopathy - Studies Laboratory Data (last 24 hrs) 01/23/22 05:55: Sodium 131 L, Potassium 5.4 H, BUN 58 H D, Creatinine 2.10 H, Glucose 170 H, Total Bilirubin 0.2, AST 16, ALT 17, Alkaline Phosphatase 68 Assessment And Plan - Current Problems (Diagnosis) (1) Acute bronchitis with COPD Current Visit: No Status: Acute Plan: considering his recurrent hospitalization. Will consult Dr. Workman. Will keep him in a few more days. He is a great risk of readmission., 01/23 Have discussed the patient with Dr Workman. We can give him oxygen script. He agrees to pay out of pocket. Plan for a CT. Possible daliesp and levaquin on discharge. Will keep him till Tuesday as he is a high risk for bounce back (2) CKD (chronic kidney disease) stage 3, GFR 30-59 ml/min Current Visit: No Status: Chronic Plan: Patient is at his baseline creatine of 2.0. no need for fluid Qualifiers: Chronic kidney disease stage 3 subtype: stage 3a (GFR 45-59) Qualified Code(s): N18.31 - Chronic kidney disease, stage 3a (3) HTN (hypertension) Current Visit: No Status: Chronic Plan: restart home meds. Will adjust as needed Qualifiers: (4) Nicotine dependence Current Visit: No Status: Chronic Plan: Have discussed smoking cessation frequently. He has refused medications. Such as chantix or buproprion. Qualifiers: Nicotine product type: cigarettes Discharge Plan: Home Plan to discharge in: 24 Hours - Code Status/Comfort Care Code Status Assessed: No Physician Review: Patient Assessed, Agree with Above Assessment and Plan Critical Care: No Time Spent Managing PTS Care (In Minutes): 25
[2022-01-24] MEDS: METHYLPREDNISOLONE 40 MG INJ IV SCH ×3 (01:25→17:01)
[2022-01-24] MEDS: IPRATROPIUM BROM 0.5MG/2.5ML NEB SCH ×4 (01:35→19:45)
[2022-01-24 06:49] LABS: Albumin 2.8 g/dL (3.4-5.0); Bilirubin Total 0.3 mg/dL (0.2-1.0); Potassium 5.3 mmol/L (3.5-5.1); Protein, Total 5.8 g/dL (6.4-8.2)
[2022-01-24] MEDS: LEVALBUTEROL 0.63 MG/3 ML NEB NEB PRN ×3 (07:51→19:35)
[2022-01-24] MEDS: ASPIRIN EC 81 MG TAB PO SCH (10:08)
[2022-01-24] MEDS: AMLODIPINE 5 MG TAB PO SCH (10:08)
[2022-01-24] MEDS: levoFLOXacin 250 MG TAB PO SCH (10:08)
--- NOTE | 2022-01-24 11:29 | P.PN ---
Subjective Date of Service: 01/24/22 Primary Care Provider: Anuj Chief Complaint: Copd exacerbation Subjective: No new changes Review of Systems 10-point ROS is otherwise unremarkable Respiratory: SOB with Excertion Physical Examination - Vital Signs Temperature: 97.3 F Blood Pressure: 141/81 Pulse: 77 Respirations: 20 Pulse Ox (%): 98 - Physical Exam General: Alert, In no apparent distress HEENT: Atraumatic, PERRLA, EOMI Neck: Supple, JVD not distended Respiratory: Diminished, Expiratory wheezes Cardiovascular: Regular rate/rhythm, Normal S1 S2 Gastrointestinal: Normal bowel sounds, No tenderness Musculoskeletal: No tenderness Integumentary: No rashes Neurological: Normal speech, Normal tone, Normal affect Lymphatics: No axilla or inguinal lymphadenopathy Assessment And Plan - Current Problems (Diagnosis) (1) Acute bronchitis with COPD Current Visit: No Status: Acute Plan: considering his recurrent hospitalization. Will consult Dr. Workman. Will keep him in a few more days. He is a great risk of readmission., 01/23 Have discussed the patient with Dr Workman. We can give him oxygen script. He agrees to pay out of pocket. Plan for a CT. Possible daliesp and levaquin on discharge. Will keep him till Tuesday as he is a high risk for bounce back (2) CKD (chronic kidney disease) stage 3, GFR 30-59 ml/min Current Visit: No Status: Chronic Plan: Patient is at his baseline creatine of 2.0. no need for fluid Qualifiers: Chronic kidney disease stage 3 subtype: stage 3a (GFR 45-59) Qualified Code(s): N18.31 - Chronic kidney disease, stage 3a (3) HTN (hypertension) Current Visit: No Status: Chronic Plan: restart home meds. Will adjust as needed Qualifiers: (4) Nicotine dependence Current Visit: No Status: Chronic Plan: Have discussed smoking cessation frequently. He has refused medications. Such as chantix or buproprion. Qualifiers: Nicotine product type: cigarettes Discharge Plan: Home - Code Status/Comfort Care Code Status Assessed: No Physician Review: Patient Assessed, Agree with Above Assessment and Plan Critical Care: No Time Spent Managing PTS Care (In Minutes): 20
[2022-01-24] MEDS ORDERED: ONDANSETRON 4 MG/2 ML VIAL IV ONE (22:01)
[2022-01-24] MEDS ORDERED: ONDANSETRON 4 MG/2 ML VIAL ONE (22:12)
[2022-01-25 00:59] VITALS: O2SAT 99
[2022-01-25] MEDS: IPRATROPIUM BROM 0.5MG/2.5ML NEB SCH ×2 (01:05→06:30)
[2022-01-25] MEDS: METHYLPREDNISOLONE 40 MG INJ IV SCH ×2 (01:05→09:00)
[2022-01-25] MEDS: LEVALBUTEROL 0.63 MG/3 ML NEB NEB PRN ×2 (01:05→06:30)
[2022-01-25 06:45] LABS: Bilirubin Total 0.3 mg/dL (0.2-1.0); Potassium 5.2 mmol/L (3.5-5.1); Protein, Total 6.4 g/dL (6.4-8.2)
[2022-01-25] MEDS: ASPIRIN EC 81 MG TAB PO SCH (09:00)
[2022-01-25] MEDS: AMLODIPINE 5 MG TAB PO SCH (09:00)
[2022-01-25] MEDS: levoFLOXacin 250 MG TAB PO SCH (09:00)
[2022-01-25 12:49] VITALS: BP 141/66; TEMP 98.1
--- NOTE | 2022-01-25 14:46 | P.DS ---
Admission Date: 01/23/22 Discharge Date: 01/25/22 Primary Care Provider: Anuj Disposition: ROUTINE DISCHARGE Discharge Condition: GOOD Reason for Admission: Copd exacerbation - Problems (1) Acute bronchitis with COPD Current Visit: No Status: Acute (2) CKD (chronic kidney disease) stage 3, GFR 30-59 ml/min Current Visit: No Status: Chronic Qualifiers: Chronic kidney disease stage 3 subtype: stage 3a (GFR 45-59) Qualified Code(s): N18.31 - Chronic kidney disease, stage 3a (3) HTN (hypertension) Current Visit: No Status: Chronic Qualifiers: (4) Nicotine dependence Current Visit: No Status: Chronic Qualifiers: Nicotine product type: cigarettes Brief History of Present Illness: Patient is well known to me. Suffers from copd exacerbation and nicotine dependence. He was seen in the office 2 days ago. Was wheezing. However maintained a pulse ox without oxygen and was on steroids. The patient desaturates. Usually after having a cigarette. He denies smoking this admission. he had on the last admission. Hospital Course: Patient was admitted for copd exacerbation. Was seen by Dr. Workman He was given a script for home o2. The patient is willing to pay for the oxygen. He does not meet criteria. As the patient has normal oxygen except during exacerbations. Will start him on levaquin and daliresp. Will follow up in the office and refer to Dr. Workman. Vital Signs/Physical Exam: Temp Pulse Resp BP Pulse Ox 98.1 F 69 16 141/66 H 97 01/25/22 12:00 01/25/22 12:00 01/25/22 12:00 01/25/22 12:00 01/25/22 12:00 General: Alert, In no apparent distress HEENT: Atraumatic, PERRLA, EOMI Neck: Supple, JVD not distended Respiratory: Diminished Cardiovascular: Regular rate/rhythm, Normal S1 S2 Gastrointestinal: Normal bowel sounds, No tenderness Musculoskeletal: No tenderness Integumentary: No rashes Neurological: Normal speech, Normal tone, Normal affect Lymphatics: No axilla or inguinal lymphadenopathy Laboratory Data at Discharge: WBC 12.3 K/uL (4.3-10.9) H D 01/22/22 01:36 Hgb 12.9 g/dL (13.6-17.9) L 01/22/22 01:36 Hct 38.9 % (39.6-49.0) L 01/22/22 01:36 Plt Count 223 K/uL (152-406) 01/22/22 01:36 PT 10.5 SECONDS (9.5-12.5) 01/21/22 18:00 INR 0.96 01/21/22 18:00 Sodium 134 mmol/L (136-145) L 01/25/22 05:55 Potassium 5.2 mmol/L (3.5-5.1) H 01/25/22 05:55 BUN 62 mg/dL (7-18) H 01/25/22 05:55 Creatinine 2.31 mg/dL (0.55-1.3) H 01/25/22 05:55 Glucose 160 mg/dL (74-106) H 01/25/22 05:55 Total Bilirubin 0.3 mg/dL (0.2-1.0) 01/25/22 05:55 AST 11 U/L (15-37) L 01/25/22 05:55 ALT 18 U/L (12-78) 01/25/22 05:55 Alkaline Phosphatase 97 U/L (45-117) D 01/25/22 05:55 Home Medications: Amlodipine Besylate 5 mg PO DAILY 01/10/22 Furosemide 40 mg PO DAILY 01/10/22 carvediloL [Carvedilol] 6.25 mg PO BID 6AM 6PM 01/10/22 lisinopriL [Lisinopril] 40 mg PO DAILY 01/10/22 Levofloxacin [Levaquin] 500 mg PO DAILY 7 Days #7 tab 01/25/22 Prednisone [Sterapred Ds] 10 mg PO BID 15 Days #35 01/25/22 Roflumilast [Daliresp] 500 mcg PO DAILY 30 Days #30 tab 01/25/22 New Medications: Roflumilast [Daliresp] 500 mcg PO DAILY 30 Days #30 tab Levofloxacin [Levaquin] 500 mg PO DAILY 7 Days #7 tab Prednisone [Sterapred Ds] 10 mg PO BID 15 Days #35 Diet: AHA Activity: Ad angélica Followup: Joesph Leslie MD [ACTIVE - CAN ADMIT] - 1 Week (call for an apointment) Evangelist Carter MD [ACTIVE - CAN ADMIT] - 1-2 Weeks Physician Review: Patient Assessed, Agree with Above Assessment and Plan Time spent managing pt's care (in minutes): 30
== END 2022-01-25 15:23 | disposition home or self-care (01) | DRG 192 ==
LOC: ER 16:06 → ERHOLD 21:50 → 2ND 01-22 14:00 → OBSVTOIN 01-23 10:10
PROVIDERS: ADMIT Internal Medicine; ATTEND Internal Medicine
DX: J44.1 Chronic obstructive pulmonary disease with (acute) exacerbation (principal); J20.9 Acute bronchitis, unspecified; J44.0 Chronic obstructive pulmonary disease with (acute) lower respiratory infection; I12.9 Hypertensive chronic kidney disease with stage 1 through stage 4 chronic kidney disease, or unspecified chronic kidney disease; N18.31 Chronic kidney disease, stage 3a; I25.10 Atherosclerotic heart disease of native coronary artery without angina pectoris; E87.5 Hyperkalemia; F17.210 Nicotine dependence, cigarettes, uncomplicated; I25.2 Old myocardial infarction; Z95.1 Presence of aortocoronary bypass graft; Z20.822 Contact with and (suspected) exposure to COVID-19; Z79.52 Long term (current) use of systemic steroids; Z79.899 Other long term (current) drug therapy; Z23 Encounter for immunization; Z82.49 Family history of ischemic heart disease and other diseases of the circulatory system; Z83.6 Family history of other diseases of the respiratory system
CPT/HCPCS: 36415; 71045; 71250; 80048; 80053; 82805; 82947; 83880; 84484; 85025; 85610; 87804; 90471; 90732; 93005; 94640; 94760; 96374; 99285; G0378; J2405; J2920; J2930; J3475; U0003

== ENCOUNTER 2022-01-25 19:24 | Inpatient (IN) | payer MEDICARE ==
[2022-01-25 19:50] LABS: Absolute Lymphocytes (CBC) 2.2 K/uL (0.7-4.9); Hematocrit 37.9 % (39.6-49.0); Lymphocytes % 12.5 % (15.3-44.8); MCV 91.2 fL (80-100); MPV 7.6 fL (7.6-11.3); Protime INR 0.93; RBC Red Blood Cell Count 4.16 M/uL (4.33-5.43)
[2022-01-25 20:05] LABS: Potassium 5.2 mmol/L (3.5-5.1)
[2022-01-25 20:20] LABS: Troponin High Sensitivity 74.9 pg/mL (<58.9)
[2022-01-25 20:21] LABS: Blood Morphology Comment NOT SEEN (NOT SEEN); Platelet Estimate ADEQ
--- NOTE | 2022-01-25 20:42 | RAD REPORT ---
EXAM DESCRIPTION: RAD - Chest Single View - 01/25/2022 8:09 pm CLINICAL HISTORY: COPD Chest pain. COMPARISON: Chest Single View dated 01/21/2022; Chest Single View dated 01/12/2022; Chest Single View dated 01/10/2022; Chest Single View dated 10/17/2021 FINDINGS: Portable technique limits examination quality. Chronic opacities in the right lower lobe appear unchanged since prior study. Mild diffuse emphysema is present. The heart is mildly enlarged in size.
[2022-01-25] MEDS ORDERED: FUROSEMIDE 40 MG/4 ML VIAL ONE (21:46)
[2022-01-25] MEDS ORDERED: ALBUTEROL 2.5 MG/3 ML NEB SOL ONE (21:46)
[2022-01-26 00:29] LABS: Potassium 4.8 mmol/L (3.5-5.1)
[2022-01-26 00:31] LABS: Troponin High Sensitivity 154.9 pg/mL (<58.9)
[2022-01-26] MEDS ORDERED: ASPIRIN 81 MG CHEWABLE TABLET ONE (00:44)
[2022-01-26] MEDS ORDERED: ENOXAPARIN 80 MG/0.8 ML SQ ONE (01:06)
[2022-01-26] MEDS ORDERED: ALBUTEROL 2.5 MG/3 ML NEB SOL NEB PRN (04:47)
[2022-01-26] MEDS ORDERED: ACETAMINOPHEN 500 MG TAB PO PRN (04:47)
[2022-01-26] MEDS ORDERED: ONDANSETRON 4 MG/2 ML VIAL IV PRN (04:47)
[2022-01-26] MEDS ORDERED: IPRATROPIUM BROM 0.5MG/2.5ML NEB PRN (04:47)
[2022-01-26] MEDS ORDERED: LEVALBUTEROL 0.63 MG/3 ML NEB NEB PRN (07:46)
--- NOTE | 2022-01-26 07:56 | P.HP ---
Certification for Inpatient Patient admitted to: Inpatient With expected LOS: >2 Midnights Patient will require the following post-hospital care: None Practitioner: I am a practitioner with admitting privileges, knowledge of patient current condition, hospital course, and medical plan of care. Services: Services provided to patient in accordance with Admission requirements found in Title 42 Section 412.3 of the Code of Federal Regulations Patient History Date of Service: 01/26/22 Primary Care Provider: Anuj Reason for admission: elevated troponins History of Present Illness: Patient of mine with a history of copd, nicotine dependence, cad, ckd with a baseline creatine of 2.1 He went home from the hospital yesterday. Went outside and when he came back in was sob. Had not picked up the oxygen or meds we had perscribed on discharge. Possible he smoked however he denies this. Has been a past reason for his frequent readmission. When he got back to the ER was found to have an elevated troponin. Repeat troponin was trending upwards. As he has a history of cad we decided to keep him here Allergies No Known Allergies Allergy (Verified 05/20/12 16:57) Home Medications: Amlodipine Besylate 5 mg PO DAILY 01/10/22 Furosemide 40 mg PO DAILY 01/10/22 carvediloL [Carvedilol] 6.25 mg PO BID 6AM 6PM 01/10/22 lisinopriL [Lisinopril] 40 mg PO DAILY 01/10/22 Levofloxacin [Levaquin] 500 mg PO DAILY 7 Days #7 tab 01/25/22 Prednisone [Sterapred Ds] 10 mg PO BID 15 Days #35 01/25/22 Roflumilast [Daliresp] 500 mcg PO DAILY 30 Days #30 tab 01/25/22 - Past Medical/Surgical History Diabetic: No -: HTN -: COPD -: [place] -: CAD -: heart stent - Family History Father -: GI disease, Other (see notes) Notes: Heart attack Mother -: Cancer Notes: COPd - Social History Alcohol use: No CD- Drugs: No Caffeine use: Yes Review of Systems 10-point ROS is otherwise unremarkable Respiratory: Shortness of Breath Physical Examination - Vital Signs Blood Pressure: 121/59 Pulse: 64 Respirations: 15 Pulse Ox (%): 94 - Physical Exam General: Alert, In no apparent distress HEENT: Atraumatic, PERRLA, Mucous membr. moist/pink, EOMI, Sclerae nonicteric Neck: Supple, 2+ carotid pulse no bruit, No LAD, Without JVD or thyroid abnormality Respiratory: Diminished, Expiratory wheezes Cardiovascular: Regular rate/rhythm, Normal S1 S2 Gastrointestinal: Normal bowel sounds, No tenderness Musculoskeletal: No tenderness Integumentary: No rashes Neurological: Normal gait, Normal speech, Normal strength at 5/5 x4 extr, Normal tone, Normal affect Lymphatics: No axilla or inguinal lymphadenopathy - Studies Laboratory Data (last 24 hrs) 01/25/22 23:59: Potassium 4.8 01/25/22 19:40: PT 10.2, INR 0.93 01/25/22 19:40: WBC 18.0 H D, Hgb 12.7 L, Hct 37.9 L, Plt Count 231 01/25/22 19:40: Sodium 134 L, Potassium 5.2 H, BUN 63 H, Creatinine 2.48 H, Glucose 188 H Assessment and Plan - Problems (Diagnosis) (1) Chest pain Current Visit: Yes Status: Acute Plan: continue troponins. He had an echocardiogram done 3 months ago. hypokinetic movement but normal ejection fraction. Will consult Dr. Turner Qualifiers: Chest pain type: chest pain on breathing Qualified Code(s): R07.1 - Chest pain on breathing; R07.81 - Pleurodynia (2) COPD exacerbation Current Visit: No Status: Acute Plan: continue steroids and breathing treatment. He needs the daliresp. Has agreed to pay for oxygen. He is normal on room air at this point. However when he has exacerbations the patient desaturates. (3) CKD (chronic kidney disease) stage 3, GFR 30-59 ml/min Current Visit: No Status: Chronic Plan: will start him on gentle fluids and monitor his creatine Qualifiers: Chronic kidney disease stage 3 subtype: stage 3b (GFR 30-44) Qualified Code(s): N18.32 - Chronic kidney disease, stage 3b (4) HTN (hypertension) Current Visit: No Status: Chronic Plan: will continue his home meds and adjust as needed Qualifiers: Hypertension type: primary hypertension (5) Nicotine dependence Current Visit: No Status: Chronic Plan: he usually does not need nicotine replacement. As he denies smoking as the cause of this admission will take him at his word Qualifiers: Nicotine product type: cigarettes Discharge Plan: Home Plan to discharge in: 24 Hours - Advance Directives Does patient have a Living Will: No Does patient have a Durable POA for Healthcare: No - Code Status/Comfort Care Code Status Assessed: No Code Status: Full Code Critical Care: No Time Spent Managing Pts Care (In Minutes): 45
--- NOTE | 2022-01-26 08:49 | EKG ---
Test Date: 2022-01-25 Test Time: 20:53:04 Human Resources Representative: ULYSSES MEASUREMENT RESULTS: Intervals: Rate: 78 [place]: 140 QRSD: 126 QT: 390 QTc: 444 [place]: P: 83 [place]: 140 QRS: -5 T: 176 INTERPRETIVE STATEMENTS: Normal sinus rhythm Nonspecific intraventricular block Cannot rule out Septal infarct, age undetermined T wave abnormality, consider inferolateral ischemia Abnormal ECG Compared to ECG 01/25/2022 20:52:29 No significant changes Electronically Signed On 01-26-22 08:46:50 CDT by Irvin Turner
--- NOTE | 2022-01-26 08:49 | EKG ---
Test Date: 2022-01-25 Test Time: 20:52:29 Business Continuity Strategy Director: ULYSSES MEASUREMENT RESULTS: Intervals: Rate: 83 [place]: 140 QRSD: 128 QT: 362 QTc: 425 [place]: P: 84 [place]: 140 QRS: -10 T: 184 INTERPRETIVE STATEMENTS: Normal sinus rhythm Nonspecific intraventricular block Cannot rule out Septal infarct, age undetermined T wave abnormality, consider inferolateral ischemia Abnormal ECG Compared to ECG 01/21/2022 16:32:50 Myocardial infarct finding now present T-wave abnormality now present Intraventricular conduction delay no longer present ST (T wave) deviation no longer present Possible ischemia still present Electronically Signed On 01-26-22 08:46:52 CDT by Irvin Turner
[2022-01-26] MEDS ORDERED: levoFLOXacin 500 MG TAB PO SCH (09:00)
[2022-01-26] MEDS ORDERED: FUROSEMIDE 20 MG/ 2ML VIAL IV SCH (09:00)
[2022-01-26] MEDS: dexAMETHasone 4 MG/ML VIAL IV SCH ×2 (09:00→17:00)
[2022-01-26] MEDS ORDERED: NA CHLORIDE 0.9% 1,000 ML ONE (09:26)
[2022-01-26] MEDS ORDERED: levoFLOXacin 250 MG TAB ONE (09:26)
[2022-01-26] MEDS ORDERED: dexAMETHasone 4 MG TAB ONE ×2 (09:26→17:23)
[2022-01-26] MEDS: NA CHLORIDE 0.9% 1,000 ML IV SCH ×2 (09:30→21:20)
--- OUTSIDE RECORDS SUMMARY | 2022-01-26 11:16 | XMS REPORT | Continuity of Care Document ---
:1950 Author Organization [facility] t Address [address] [place] [address] Care Team Providers Name Role Phone PCP, PATIENT DOES NOT HAVE A Primary Care Physician UnavailTONY Tejeda Attending Clinician Unavailable JEN BADILLO Attending Clinician Unavailable RICKIE CANNON Attending Clinician Unavailable HARDEEP LAU Attending Clinician Unavailable Hardeep Lau MD Attending Clinician PASTORA LOPEZ Attending Clinician Unavailable THANG FRANCIS M.D. Attending Clinician Unavailable PASTORA LOPEZ M.D. Attending Clinician Unavailable JEN BADILLO Admitting Clinician Unavailable Payers Payer Name Policy Type Policy Number Effective Date Expiration Date S ouraiden [facility] [id number] 2020 (MEDICARE 00:00:00 REPLACEMENT HMO) [facility] D [id number] 2020 [facility] 00:00:00 [facility] [id number] 2020 MEDICARE ADVANTAGE 00:00:00 PLAN Problems Condition Condition Condition Status Onset Resolution Last Treating Co mments Source Name Details Category Date Date Treatment Clinician Date No known No known Disease Unive rs active active ity of problems problems [facility] Athscl Athscl Problem Active [facility] 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 Asbestos Asbestos Problem Active [facility] exposure exposure Physic i ans Loculated Loculated Problem Active [facility] pleural pleural Physici effusion effusion ans Centrilobu Centrilobu Problem Active U T lar lar Physici emphysema emphysema ans Allergies, Adverse Reactions, Alerts Allergy Allergy Status Severity Reaction(s) Onset Inactive Treating Comm ents Source Name Type Date Date Clinician NO KNOWN Allergy Active [facility] ALLERGIE S NO KNOWN Drug Active [facility] ALLERGIE Class ity of [facility] [place] Social History Social Habit Start Date Stop Date Quantity Comments Source Exposure to Yes [facility] SARS-CoV-2 (event) Medica l Branch Sex Assigned At [birth year] [facility] 00:00:00 00:00:00 Medical Branch Smoking Status Start Date Stop Date Source Unknown if ever smoked [facility] Smokes tobacco daily (finding) [facility] Medications Ordered Filled Start Stop Current Ordering Indication Dosage Frequency Signature Comments Components Source Medication Medication Date Date Medication? Clinician (SIG) Name Name lisinopriL Yes [id number] 10mg Take 1 Univers 10 mg 4-17 tablet by ity of tablet 00:00: mouth at [place] 00 bedtime. Medical Branch metoprolol Yes [id number] 25mg Take 1 Univers tartrate 25 4-17 tablet by ity of mg tablet 00:00: mouth 2 [place] 00 (two) Medical times Branch daily. Spiriva [...] Tablet 00:00: DAILY. ans 00 Lisinopril Lisinopril 2011- Yes MARK 1 QD TAKE 1 UT 10 MG Oral 10 MG Oral 2-28 ENRIQUE M.DShorty TABLET Physici Tablet Tablet 00:00: DAILY. ans [...] cm 04:00:00 WEIGHT 2021-11-08 82 kg 04:00:00 Diastolic blood 2021-10-11 70 mm[Hg] Taylor o pressure 10:44:00 [facility] Heart rate 2021-10-11 61 /min [facility] 10:44:00 [facility] Body temperature 2021-10-11 35.94 Leni [facility] 10:44:00 [facility] Respiratory rate 2021-10-11 20 /min [facility] 10:44:00 [facility] Body height 2021-10-11 182.9 cm [facility] 10:44:00 [facility] Body weight 2021-10-11 70.308 kg [facility] 10:44:00 [facility] BMI 2021-10-11 21.02 kg/m2 [facility] 10:44:00 [facility] Oxygen saturation 2021-10-11 97 /min [facility] in Arterial blood 10:44:00 [facility] by Pulse oximetry [place] Systolic blood 2021-10-11 181 mm[Hg] University of pressure 10:44:00 [facility] O2 SAT 2020-04-16 95 % Source: [place] [facility] 07:34:00 Non-Rebreather Systolic blood 2020-04-16 141 mm[Hg] Location: LUE; [...] L [facility] 07:34:00 Radial; Quality: Normal Systolic blood 2020-04-07 137 mm[Hg] Location: RUE; [place] Physicia ns pressure 14:12:00 Position: Sitting Diastolic blood 2020-04-07 74 mm[Hg] Location: RUE; [facility] ans pressure 14:12:00 Position: Sitting Body [...] 14:12:00 O2 SAT 2020-04-07 97 % Source: [place] [facility] 14:12:00 Procedures Procedure Date / Time Performed Performing Clinician [facility] NOTICE OF PRIVACY 2021-10-11 10:30:05 Doctor Unassigned, No Univ ersity [facility] PRACTICES Name Medical Branch CONSENT/REFUSAL FOR 2021-10-11 10:27:09 Doctor Unassigned, No [facility] AND Name Medical Branch TREATMENT PET CT Lung solitary 2020-04-07 00:00:00 [facility] pulm nodule [id number] Plan of Care Planned Activity Planned Date Details Comments Source Diagnostic Test Pending 2020-04-07 00:00:[address] Lung solitary [place] [facility] pulm nodule 00508 [code = 66462] Diagnostic Test Pending 2020-04-07 00:00:[address] Lung solitary [place] [facility] pulm nodule 23859 [code = 41919] Encounters Start End Encounter Admission Attending Care Care Encounter Source Date/Time Date/Time Type Type Clinicians Facility Department ID 2022-01-08 2022-01-08 Outpatient [facility] [id number] [facility] 07:10:00 07:10:00 0715 Medica l Group 2021-12-09 2021-12-09 Outpatient FAYE MILLER SLECurt [facility] [id number] [facility] 00:00:00 00:00:00 RAKESHBOOB 2021-11-08 2021-11-12 Inpatient ER DAVIS, [facility] Medical ICU [id number] [facility] 03:10:00 20:10:00 RICKIE 2021-10-11 2021-10-11 Emergency X [facility] ERT [id number] Univers 05:52:00 06:48:00 [facility] 2021-10-11 2021-10-11 Emergency [facility] [id number] Univers 05:52:00 06:48:00 [facility] [id number] ity [facility] [id number] [facility] [id number] [place] [address] Branch 2020-11-21 2020-11-21 Outpatient [facility] [id number] [facility] 08:00:00 08:00:00 0528 Medica l Group 2020-05-05 2020-05-05 Outpatient [facility] PUL [id number] 13:21:00 15:55:00 PASTORA 2020-04-15 2020-04-15 [facility] [id number] [place] 14:00:00 14:00:00 t; [facility] Gonsalves M.D. [facility] 2020-04-07 2020-04-07 DOLLY Mai [facility] & [id number] [place] 13:30:00 13:30:00 t; PASTORA LOPEZ Sleep Physi ci Carlos GUILLORY M.D. Results Test Description Test Time Test Comments Results Result Comments Source BLOOD CULTURE 2021-11-13 07:00:32 Test Item Value Reference Range Interpretation Comme nts CULTURE (BEAKER) (test code = 1095) No growth in 5 days BLOOD [id number] 07:00:32 Test Item Value Reference Range Interpretation Comments CULTURE (BEAKER) (test No growth in 5 days code = 1095) POCT-GLUCOSE [id number] 16:01:13 Test Item Value Reference Range Interpretation Comments POC-GLUCOSE METER 136 mg/dL 70-110 H : TESTED A T [address] [address] (BEAKER) (test code [address], = 1538) [place] [id number]: Web Offset Press Feeder/Techni brooklyn ID = [id number] for Cerv antes, Crystal POCT-GLUCOSE [id number] 11:30:14 Test Item Value Reference Range Interpretation Comments POC-GLUCOSE METER 112 mg/dL 70-110 H : TESTED A T [facility] [address] (BEAKER) (test code [address], = 1538) [place] 392048: Web Offset Press Feeder/Techni brook[place] ID = [id number] for Cerv antes, Crystal POCT-GLUCOSE [id number] 06:45:43 Test Item Value Reference Range Interpretation Comments POC-GLUCOSE METER 150 mg/dL 70-110 H : TESTED A T [facility] [address] (BEAKER) (test code [address], = 1538) [place] 392048: Web Offset Press Feeder/Techni brooklyn ID = [id number] for Taina Poe [id number] 06:05:04 Test Item Value Reference Range Interpretation Comments MAGNESIUM (BEAKER) (test code = 2.2 mg/dL 1.5-3.0 627) Web Offset Press Feeder ID - [id number] ID - [id number] ID - [id number] ID - [id number] METABOLIC [id number] 06:04:06 Test Item Value Reference Range Interpretation [...] 1092) DATA TO CALCULA TE ESTIMATED GFR. Web Offset Press Feeder ID - [id number] ID - [id number] ID - IFPVUGQNC123Vrfuohae ID - SDJOVUYJI862Cmydcifk ID - TUZNSEFAA587Mjxkefyf ID - LFZFZJKQP814Ccatcfnv ID - LGINCZGBT981Ywlxqjzh ID - [id number] ID - VMPZPECAI784Rqlsfcfx ID - [id number] W/PLT COUNT & AUTO DIFFERENTIAL 2021-11-12 05:53:41 [...] PERCENT (BEAKER) (test code = 2801) POCT-GLUCOSE [id number] 21:50:33 Test Item Value Reference Range Interpretation Comments POC-GLUCOSE METER 173 mg/dL 70-110 H : TESTED A T [facility] [address] (BEAKER) (test code [facility] [address], = 1538) [place] 3920[address]: Web Offset Press Feeder/Techni brooklyn ID = [id number] for Taina Poe POCT-GLUCOSE [id number] 16:45:23 Test Item Value Reference Range Interpretation Comments POC-GLUCOSE METER 134 mg/dL 70-110 H : TESTED A T [facility] [address] (BEAKER) (test code [facility] [address], = 1538) [place] 392048: Web Offset Press Feeder/Techni brooklyn ID = [id number] for DapSarthak meloha POCT-GLUCOSE [id number] 11:45:21 Test Item Value Reference Range Interpretation Comments POC-GLUCOSE METER 125 mg/dL 70-110 H : TESTED A T [address] (BEAKER) (test code [facility] [address], = 1538) [place] [address]: Web Offset Press Feeder/Techni brooklyn ID = [id number] for Heather Ireland SPUTUM CULTURE + GRAM [id number] 08:54:21 Test Item Value Reference Range Interpretation Comments CULTURE (BEAKER) 4+ Normal respiratory (test code = 1095) luis eduardo present GRAM STAIN RESULT 1+ White blood cells (BEAKER) (test code = seen 1123) GRAM STAIN RESULT 1+ epithelial cells (BEAKER) (test code = 29217) GRAM STAIN RESULT 3+ Mixed luis eduardo (BEAKER) (test code = 03042) RAD, CHEST, 1 VIEW, NON [id number] 07:33:00Reason for exam:->PNA [facility] 1950 Sex: MFINAL REPORT CHEST AP PORTABLE SEMIERECT Comparison exam: 11/09/2021 History provided: Pneumonia Heart size normal. Chronic pleural thickening at the right base. Lungs free of acute disease and vascularity normal. Signed: [facility] Verified Date/Time: 11/11/2021 07:33:28 Reading Location: [facility] Diagnostic Imaging Reading Room - [facility] 1.310.12 POCT-GLUCOSE [id number] 06:54:14 Test Item Value Reference Range Interpretation Comments POC-GLUCOSE METER 133 mg/dL 70-110 H : TESTED A T [facility] [address] (BEAKER) (test code [address], = 1538) [place] [address]: Web Offset Press Feeder/Techni brooklyn ID = [id number] for Taina Poe [id number] 04:53:42 Test Item Value Reference Range Interpretation Comments MAGNESIUM (BEAKER) (test code = 2.3 mg/dL 1.5-3.0 627) Web Offset Press Feeder ID - [id number] ID - [id number] ID - wtsg70Iewwvcvv ID - [id number] BASIC METABOLIC [id number] 04:52:53 Test Item Value Reference Range Interpretation [...] 1092) DATA TO CALCULA TE ESTIMATED GFR. Web Offset Press Feeder ID - [id number] ID - dngq50Vpkapwlj ID - qwli49Lirnxyhc ID - daal45Keclugki ID - ghsn10Uiniomvt ID - qpds66Ccgbcxxz ID - prxl73Wkwwtprz ID - cuej49Ntbzatge ID - uisv04Zdtfkdzw ID - [id number] W/PLT COUNT & AUTO [id number] 04:28:30 Test Item Value Reference Range Interpretation [...] PERCENT (BEAKER) (test code = 2801) POCT-GLUCOSE [id number] 20:59:54 Test Item Value Reference Range Interpretation Comments POC-GLUCOSE METER 148 mg/dL 70-110 H : TESTED A T [facility] [address] (BEAKER) (test code [address], = 1538) [facility] 77 [address]: Web Offset Press Feeder/Techni brooklyn ID = [id number] for Taina Poe POCT-GLUCOSE [id number] 15:51:00 Test Item Value Reference Range Interpretation Comments POC-GLUCOSE METER 156 mg/dL 70-110 H : TESTED A T [facility] [address] (BEAKER) (test code [address], = 1538) [facility] 77 [address]: Web Offset Press Feeder/Techni brooklyn ID = [id number] for Shazia Scott POCT-GLUCOSE [id number] 11:44:26 Test Item Value Reference Range Interpretation Comments POC-GLUCOSE METER 139 mg/dL 70-110 H : TESTED A T [address] [address] (BEAKER) (test code [address], = 1538) [facility] 77 [address]: Web Offset Press Feeder/Techni brooklyn ID = [id number] for Shazia Scott BASIC METABOLIC [id number] 07:34:29 Test Item Value Reference Range Interpretation [...] 1092) DATA TO CALCULA TE ESTIMATED GFR. Web Offset Press Feeder ID - DSENSONOperator ID - DSENSONOperator ID [...] (test code = 18 U/L 5-50 347) Web Offset Press Feeder ID - DSENSONOperator ID - DSENSONOperator ID - DSENSONOperator ID - DSENSONOperator ID - DSENSONOperator ID - DSENSONOperator ID - DSENSONOperator ID - DSENSONOperator ID - DSENSONOperator ID - DSENSONCBC W/PLT COUNT & AUTO [id number] 07:19:24 Test Item Value Reference Range Interpretation [...] PERCENT (BEAKER) (test code = 2801) POCT-GLUCOSE [id number] 07:05:35 Test Item Value Reference Range Interpretation Comments POC-GLUCOSE METER 129 mg/dL 70-110 H : TESTED A T [facility] 1317 ([facility]) (test code [facility], = 1538) [place] [address]: Web Offset Press Feeder/Techni brooklyn ID = [id number] for Anayeli ety, Ruth POCT-GLUCOSE [id number] 22:17:06 Test Item Value Reference Range Interpretation Comments POC-GLUCOSE METER 135 mg/dL 70-110 H : TESTED A T [facility] 1317 ([facility]) (test code [facility], = 1538) [place] [address]: Web Offset Press Feeder/Techni brooklyn ID = [id number] for Anayeli ety, Ruth POCT-GLUCOSE [id number] 16:21:48 Test Item Value Reference Range Interpretation Comments POC-GLUCOSE METER 178 mg/dL 70-110 H : Notified RN/MD: TESTED ([facility]) (test code AT [facility] [address] = 1538) [place] [address]: Web Offset Press Feeder/Techni brooklyn ID = [id number] for Alee Calderon HEPATITIS PANEL, [id number] 14:58:49 Test Item Value Reference Range Interpretation Comments HEPATITIS A IGM ANTIBODY (BEAKER) Nonreactive Nonreactive (test code = 498) HEPATITIS B CORE IGM ANTIBODY Nonreactive Nonreactive (BEAKER) (test code = 645) HEPATITIS C ANTIBODY (BEAKER) Nonreactive Nonreactive (test code = 367) HEPATITIS B SURFACE ANTIGEN (2) Nonreactive Nonreactive (BEAKER) (test code = 2585) Web Offset Press Feeder ID - DBOperator ID - DBPOCT-GLUCOSE [id number] 12:30:38 Test Item Value Reference Range Interpretation Comments POC-GLUCOSE METER 184 mg/dL 70-110 H : Notified RN/MD: TESTED (BEAKER) (test code AT [facility] [address] = 1538) [facility] [address]: Web Offset Press Feeder/Techni brooklyn ID = [id number] for Alec Bush VENOUS DOPPLER LEGS, [id number] 10:54:00Reason for exam:->DVT [facility] : 1950 Sex: MFINAL REPORT Bilateral lower extremity venous Doppler evaluation INDICATION: DVT Discussion: Colmenares-scale, color Doppler, and spectral waveform analysis evaluations of the bilateral lower extremity deep venous systems are obtained. The bilateral common femoral, superficial femoral, popliteal, p osterior tibial and peroneal veins are compressible and demonstrate normal venous waveforms. There is normal response to augmentation. Impression: No sonographic evidence of deep venous thrombosis of the bilateral lower extremity. Signed: Anna Chu MDReport Verified Date/Time: 11/09/2021 10:54:12 Reading Location: [facility] Radiology Reading Room RAD, CHEST, 1 VIEW, NON [id number] 09:00:00 Reason for exam:->PNAShould this be performed at the bedside?->Yes [facility] : 1950 Sex: MFINAL REPORT TECHNIQUE: Frontal view of the chest. INDICATION: PNA COMPARISON:11/08/2021 DISCUSSION:Limited evaluation due to portable technique. Lines and hardware: EKG leadsHeart and mediastinum: Stable.Lungs and pleura: Stable streaky right basilar airspace opacities with a small effusion.Left lung is grossly clear. Negative for pneumothorax.Soft tissues and bones: No acute abnormality. IMPRESSION:Right basilar airspace opacities and small right effusion are stable. Signed: Anna ChuMDReport Verified Date/Time: 11/09/2021 09:00:23 Reading Location: [facility] Radiology Reading Room POCT-GLUCOSE [id number] 07:33:54 Test Item Value Reference Range Interpretation Comments POC-GLUCOSE METER 156 mg/dL 70-110 H : Notified RN/MD: TESTED ([facility]) (test code AT [facility] [address] = 1538) [place] [address]: Web Offset Press Feeder/Techni brooklyn ID = [id number] for Francisco JavierAlec [place] [id number] 05:00:02 Test Item Value Reference Range Interpretation Comments PARTIAL THROMBOPLASTIN 111.6 seconds 23.0-35.0 H Berna l Information TIME (BEAKER) (test (Auto Ou tput) code = 760) HIV-1 ANTIGEN WITH HIV-1/2 [id number] 04:53:13 Test Item Value Reference Range Interpretation Comments HIV-1 ANTIGEN WITH HIV 1\T\2 Nonreactive Nonreactive ANTIBODY (2) (BEAKER) (test code = 2586) Web Offset Press Feeder ID - [id number] METABOLIC [id number] 04:38:36 Test Item Value Reference Range Interpretation [...] 1092) DATA TO CALCULA TE ESTIMATED GFR. Web Offset Press Feeder ID - [id number] ID - [id number] ID - OGSZVPVEX458Hyjppgnu ID - AUNUTBWNU405Irbdokjf ID - RNZWVPJYL005Ohoivqpa ID - AQUXCOOPD395Ujqgljqf ID - NRVEJMJFB199Dvrylfha ID - OWREQTUJA298Bvovhzxq ID - MORIKJGWZ772Dhnwwmkx ID - [id number] FUNCTION [id number] 04:36:24 Test Item Value Reference Range Interpretation [...] (test code = 22 U/L 5-50 347) Web Offset Press Feeder ID - [id number] ID - [id number] ID - JVAZVTSWN113Ftdkncbp ID - NJTTYJWSS082Xgeqllvy ID - WUIOZSLNX860Jrqfukbk ID - ULWTDSCZY263Qtwaxekp ID - OKXTPWUCP034Sgcuwdta ID - GLJWJCDBR519Iuhrsmtk ID - KYSMSDBST849Pvgzmpke ID - OKKRXQYEL170PXIGHVXJNQ [id number] 04:30:27 Test Item Value Reference Range Interpretation Comments HEMOGLOBIN A1C (BEAKER) (test code = 5.8 % 4.3-6.1 368) Web Offset Press Feeder ID - [id number] W/PLT COUNT & AUTO [id number] 04:17:15 Test Item Value Reference Range Interpretation [...] PERCENT (BEAKER) (test code = 2801) TROPONIN [id number] 01:16:05 Test Item Value Reference Range Interpretation Comments TROPONIN I (BEAKER) (test code = 0.56 ng/mL 0.00-0.15 397) Troponin I (TnI) levels [...] failure, acidosis, acute neurological disease, and persistent tachyarrhythmia.Web Offset Press Feeder ID - [id number] [id number] 20:56:12 Test Item Value Reference Range Interpretation Comments POC-GLUCOSE METER 169 mg/dL 70-110 H : Notified RN/MD: TESTED (BEAKER) (test code AT [address] = 1538) [facility] [address]: Web Offset Press Feeder/Techni brooklyn ID = [id number] for Dottie Collins [id number] 20:43:27 Test Item Value Reference Range Interpretation Comments PARTIAL THROMBOPLASTIN 43.3 seconds 23.0-35.0 H Final Information TIME ([facility]) (test (Auto Ou tput) code = 760) [id number] 17:13:58 Test Item Value Reference Range Interpretation Comments GLUCOSE RANDOM ([place]) (test code 247 mg/dL 70-110 H = 652) Web Offset Press Feeder ID - DSENSONTROPONIN [id number] 17:03:16 Test Item Value Reference Range Interpretation [...] failure, acidosis, acute neurological disease, and persistent tachyarrhythmia.Web Offset Press Feeder ID - DSENSONLEGIONELLA ANTIGEN, [id number] 14:05:17 Test Item Value Reference Range Interpretation Comments L. PNEUMOPHILA Negative - see Negative fo r L. SEROGP 1 UR AG comment pneumophila ([facility]) (test code serogrou p 1 antigen, = 1156) suggesting no r ecent or current infe ction with this serog roup. Legionellosis c annot be ruled out si nce other serogroup s and species may cau se disease. U/S, RENAL, [id number] 14:05:00Reason for exam:->elevated creatine [facility] : 1950 Sex: MFINAL REPORT TECHNIQUE: Grayscale ultrasound of the kidneys and bladder. INDICATION: elevated creatine. COMPARISON: None. FINDINGS: RIGHT KIDNEY: The right kidney measures 10.8 x 4.2 x 5.3 cmwith a cortical thickness of 1 cm. No solid mass lesions. No hydronephrosis. Renal artery and vein are patent. LEFT KIDNEY: The left kidney measures 11.4 x 4.8 x 5.5 cm with a cortical thickness of 1 cm. No solid mass lesions. No hydronephrosis. Renal artery and vein are patent. A left upper pole anechoic renal lesion with posterior acoustic enhancement measures 2.3 cm and is consistent with a simplerenal cyst. No follow-up imaging is recommended. BLADDER: Decompressed by Trent catheter. IMPRESSION: This is a normal renal ultrasound. No hydronephrosis Signed: Paulino Jamison MDReport Verified Date/Time: 11/08/2021 14:05:00 Reading Location: [address] Body Reading Room STREP PNEUMONIAE [id number] 14:04:46 Test Item Value Reference Range Interpretation Comments STREP PNEUMONIAE Presumptive negative Presumptive negative ANTIGEN ([place]) for pneumococcal for pneumococcal (test code = 1615) pneumonia - see pneumonia - see comment commen Presumptive negative for pneumococcal pneumonia, suggesting no current or recent pneumococcal infection. Infection due to S. pneumoniae cannot be ruled out since the antigen present in the sample may be below the detection limit of the test. TROPONIN [id number] 12:03:41 Test Item Value Reference Range Interpretation [...] failure, acidosis, acute neurological disease, and persistent tachyarrhythmia.Web Offset Press Feeder ID - DSENSONBASIC METABOLIC [id number] 11:54:31 Test Item Value Reference Range Interpretation [...] 1092) DATA TO CALCULA TE ESTIMATED GFR. Web Offset Press Feeder ID - DSENSONOperator ID - DSENSONOperator ID - DSENSONOperator ID - DSENSONOperator ID - DSENSONOperator ID - DSENSONOperator ID - DSENSONOperator ID - DSENSONOperator ID - DSENSONOperator ID - DSENSONOperator ID - DSENSONOperator ID - DSENSONOperator ID - [id number] 11:45:04 Test Item Value Reference Range Interpretation Comments PARTIAL THROMBOPLASTIN 44.4 seconds 23.0-35.0 H Final Information TIME (BEAKER) (test (Auto Ou tput) code = 760) POCT-GLUCOSE [id number] 11:43:30 Test Item Value Reference Range Interpretation Comments POC-GLUCOSE METER 141 mg/dL 70-110 H : Notified RN/MD: TESTED (BEAKER) (test code AT [address] = 1538) [facility] [address]: Web Offset Press Feeder/Techni brooklyn ID = [id number] for Francisco Javier Alec joyner PUL PERF IMAGING, [id number] 09:49:00Unlisted Reason for Exam - Click Yes and Enter Reason Below->No [facility] : 1950 Sex: MFINAL REPORT PROCEDURE: LUNG SCAN - perfusion only CPT CODE: 99959 INDICATION: Elevated D-dimer PROTOCOL: 5.8 mCi of Tc-99m MAA was injected intravenously, and static perfusion images were obtained in multiple projections. Ventilation imaging was not performed due to COVID precautions. FINDINGS: Tracer distribution is subsegmentally and nonsegmentally, irregularly decreased in both lungs. There is additional diffuse decrease in the right lung compared to the left. IMPRESSION: 1. Intermediate probability of acute or subacute pulmonary embolization.2. There is diffuse pulmonary parenchymal a bnormality.3. Volume loss in the right lung. Signed: Abdias Tirado MDReport Verified Date/Time: 11/08/2021 09:49:42 CT, CHEST, WITHOUT [id number] 09:47:00Unlisted Reason for Exam - Click Yes and Enter Reason Below->No [facility] : 1950 Sex: MFINAL REPORT CT of the chest, without contrast Clinical History: Pneumonia Technique: CT of the chest is performed without intravenous contrast administration. This exam was performed according to our departmental dose optimization program which includes automated exposure control, adjustment of the mA and/or kV according to patient's size and/or use of iterative reconstructive technique. Comparison Film: Chest radiograph dated November 08, 2021 Discussion: ET is above the olivia. A feeding tube enters the stomach. Visualized thyroid gland is normal. No supraclavicular, axillary, mediastinal or hilar lymphadenopathy. Heart and pericardium are unremarkable. There is a small loculated right pleural effusion. Peripheral opacities in the middle and lower lobes are associated with architectural distortion, favor rounded atelectasis, although cannot entirely exclude superimposed airspace disease.Additionally, there are small foci of airspace opacities in the right lower lobe. Lungs are severelyemphysematous, and there is mild degree of bronchial wall thickening. Partially imaged upper abdomenis unremarkable. Bony structures demonstrate degenerative changes. Impression: Severe pulmonary emphysema. Mild bronchial wall thickening. Small foci of airspace opacities in the right lower lobe, which may reflect aspiration or pneumonia. Small loculated right pleural effusion. Peripheral opacities in right middle and lower lobes associated with architectural distortion probably represent rounded atelectasis, but cannot entirely exclude superimposed infection. Signed: Carly Smithort Verified Date /Time: 11/08/2021 09:47:14 RAD, CHEST, 1 VIEW, NON [id number] 08:47:00Reason for exam:->ETT placementShould this be performed at the bedside?->Yes [facility] : 1950 Sex: MFINAL REPORT TECHNIQUE: Frontal view of the chest. INDICATION: ETT placement. COMPARISON: 11/08/2021 at 3:18 AM. FINDINGS: LINES/TUBES: Endotracheal tube tip terminates 5 cm above the level ofthe olivia. Esophagogastric tube tip projects over the proximal stomach with sidehole just above theexpected location of the GE junction. Recommend advancing [...] above the level of the olivia.2. Persistent smallright pleural effusion and right basilar opacity including somewhat nodular component within the right lower lung measuring 1.[address] may be helpful for further evaluation. Signed: Gómez Fountain MDReport Verified Date/Time: 11/08/2021 08:47:55 APTT 2021-11-08 06:22:16 Test Item Value Reference Range Interpretation Comments PARTIAL THROMBOPLASTIN 22.9 seconds 23.0-35.0 L Final Information TIME (BEAKER) (test (Auto Ou tput) code = 760) LACTIC ACID, [id number] 05:34:16 Test Item Value Reference Range Interpretation Comments LACTATE BLOOD 1.89 mmol/L See_Comment [Automated me ssage] VENOUS (2) (BEAKER) The syst em which (test code = 2872) generated this result transmitted ref erence range: 0.50-<2. 00. The reference range was not used to interpr et this result as normal/abnormal . Web Offset Press Feeder ID - LITOOperator ID - LITOOperator ID - LITOOperator ID - ROSALBA [id number] 05:31:10 Test Item Value Reference Range Interpretation Comments PROCALCITONIN (BEAKER) (test code 0.15 ng/mL <0.05 H = 3036) SEPSIS RISK (ng/mL)Low: 0.05-0.50Intermediate: 0.51-2.00High: >=2.01 URINALYSIS WITH MICROSCOPIC IF [id number] 05:13:27 Test Item Value Reference Range Interpretation [...] 463) SOURCE(BEAKER) (test code = 2795) URINALYSIS [id number] 05:13:21 Test Item Value Reference Range Interpretation Comments RBC UA-MANUAL (BEAKER) (test <5 /HPF code = 1659) WBC UA-MANUAL (BEAKER) (test None Seen /HPF code = 1661) BACTERIA (BEAKER) (test code = Occasional 517) SQUAMOUS EPITHELIAL MANUAL None Seen /HPF (BEAKER) (test code = 1663) HYALINE CASTS MANUAL (BEAKER) 0-5 /LPF (test code = 1665) TROPONIN [id number] 05:01:28 Test Item Value Reference Range Interpretation [...] failure, acidosis, acute neurological disease, and persistent tachyarrhythmia.Web Offset Press Feeder ID - LITOBASIC METABOLIC PANEL 2021-11-08 05:00:17 [...] 1092) DATA TO CALCULA TE ESTIMATED GFR. Web Offset Press Feeder ID - LITOOperator ID - LITOOperator ID - LITOOperator ID - LITOOperator ID - LITOOperator ID - LITOOperator ID - LITOOperator ID - LITOOperator ID - LITOOperator ID - LITOB-TYPE NATRIURETIC FACTOR (BNP)2021-11-08 05:00:11 Test Item Value Reference Range Interpretation Comments B-TYPE NATRIURETIC PEPTIDE (BEAKER) 480 pg/mL 0-100 H (test code = 700) Web Offset Press Feeder ID - LITOCBC W/PLT COUNT & AUTO [id number] 04:56:38 Test Item Value Reference Range Interpretation [...] H PERCENT (BEAKER) (test code = 2801) [id number] 04:53:09 Test Item Value Reference Range Interpretation Comments D-DIMER QUANTITATIVE 5.80 MG/L FEU <0.50 H Final Information (BEAKER) (test code = (Auto Output) 298) REGARDING D-DIMER RESULTS: The 98% NPV (Negative Predictive Value) for DVT/PE exclusion is 0.50 mg/LFEU as suggested by the bobbin marker and as approved by the FDA.PROTHROMBIN [id number] 04:52:30 Test Item Value Reference Range Interpretation Comments PROTIME (BEAKER) 11.0 seconds 9.3-12.0 Final Infor mation (test code = 759) (Auto Outp ut) INR (BEAKER) (test 1.00 See_Comment Final Inf ormation code = 370) (Auto Output) [Automated mess age] The system [employer] generated this result transmitted ref erence range: <=5.90. The reference range was not used to int erpret this result as normal/abnormal . RECOMMENDED COUMADIN/WARFARIN INR THERAPY RANGESSTANDARD DOSE: 2.0 - 3.0 Includes: PROPHYLAXIS for venous thrombosis, systemic embolization; TREATMENT for venous thrombosis and/or pulmonary embolus.HIGH RISK: Target INR is 2.5-3.5 for patients with mechanical heart valves.HEMOGLOBIN [id number] 04:51:27 Test Item Value Reference Range Interpretation Comments HEMOGLOBIN A1C (BEAKER) (test code = 5.7 % 4.3-6.1 368) Web Offset Press Feeder ID - LITOHEPATIC FUNCTION [id number] 04:50:07 Test Item Value Reference Range Interpretation [...] (test code = 31 U/L 5-50 347) Web Offset Press Feeder ID - LITOOperator ID - LITOOperator ID - LITOOperator ID - LITOOperator ID - LITOOperator ID - LITOOperator ID - [id number] 04:49:45 Test Item Value Reference Range Interpretation Comments MAGNESIUM (BEAKER) (test code = 2.8 mg/dL 1.5-3.0 627) Web Offset Press Feeder ID - LITOOperator ID - LITOOperator ID - LITOOperator ID - ROSALBA [id number] 04:46:46 Test Item Value Reference Range Interpretation Comments PHOSPHORUS (BEAKER) (test code = 4.8 mg/dL 2.5-4.5 H 604) Web Offset Press Feeder ID - LITOPOCT-GLUCOSE [id number] 04:11:36 Test Item Value Reference Range Interpretation Comments POC-GLUCOSE METER 156 mg/dL 70-110 H : TESTED A T SLSL 1317 (BEAKER) (test code [address], = 1538) [facility] 77 478: Web Offset Press Feeder/Techni [place] ID = [id number] for Real Lei RAD, ABDOMEN/KUB 1 VIEW [id number] 04:02:00Reason for exam:->NG tube placementUS[facility] : 1950 Sex: MFINAL REPORT CLINICAL HISTORY: NG tube placement COMPARISON: None. FINDINGS: A single supine image of a portion of the abdomen is submitted. The tip of an enteric tube overlies the left upperquadrant in the expected position of the stomach. The abdominal bowel gas pattern is nonspecific as it is largely gasless. There is amorphous calcification overlying the right upper quadrant, nonspecific but possibly cholelithiasis. There is no acute osseous abnormality. Signed: Greyson Arredondo MDReportVerified Date/Time: 11/08/2021 04:02:40 Electronically signed by: GREYSON ARREDONDO M.D. on 204:02 AMRAD, CHEST, 1 VIEW, NON [id number] 03:57:00Reason for exam:->AHRFShould this be performed at the bedside?->Yes [facility] : 1950 Sex: MFINAL REPORT RAD, CHEST, 1 VIEW, NON DEPT INDICATION: AHRF COMPARISON: None FINDINGS: Portable frontal view of the chest. IMPRESSION: Support Lines: The endotracheal tube terminates 7.9 cm cephalad to the olivia at the level of the clavicles. Enteric tube terminates within the gastric fundusand the sidehole is at the level of the gastroesophageal junction. Lungs and pleura: Small right pleural effusion and right basilar hazy airspace opacities suspicious for pneumonia No pneumothorax. Heart and mediastinum: Stable contours. Additional findings: None. Signed: Harman Whaley MDRepfreeman health [facility] Verified Date/Time: 11/08/2021 03:57:41 BLOOD GAS, [id number] 03:54:11 Test Item Value Reference Range Interpretation [...]
[2022-01-26] MEDS ORDERED: ENOXAPARIN 30 MG/0.3 ML SQ SCH (17:00)
[2022-01-26] MEDS ORDERED: ENOXAPARIN 30 MG/0.3 ML SQ ONE (17:24)
[2022-01-26] MEDS ORDERED: LEVALBUTEROL 0.63 MG/3 ML NEB ONE (20:22)
[2022-01-26] MEDS: carvediloL 6.25 MG TAB PO SCH (23:00)
[2022-01-27] MEDS: dexAMETHasone 4 MG/ML VIAL IV SCH ×3 (00:34→17:35)
[2022-01-27 06:36] LABS: Hematocrit 35.1 % (39.6-49.0); MCV 92.4 fL (80-100)
[2022-01-27 06:37] LABS: Absolute Lymphocytes (CBC) 1.9 K/uL (0.7-4.9); Lymphocytes % 15.6 % (15.3-44.8); MPV 8.6 fL (7.6-11.3)
[2022-01-27 06:52] LABS: Albumin 2.5 g/dL (3.4-5.0); Bilirubin Total 0.4 mg/dL (0.2-1.0); Protein, Total 5.3 g/dL (6.4-8.2)
[2022-01-27 06:56] LABS: Potassium 5.6 mmol/L (3.5-5.1)
[2022-01-27] MEDS ORDERED: REGADENOSON 0.4 MG/5 ML SYR IV ONE (07:25)
[2022-01-27 08:46] LABS: Anisocytosis SLIGHT; Blood Morphology Comment NOTED (NOT SEEN); Platelet Estimate ADEQ
[2022-01-27] MEDS ORDERED: levoFLOXacin 250 MG TAB PO SCH (09:00)
[2022-01-27] MEDS ORDERED: MORPHINE 4 MG/ML SYR IV ONE (09:36)
[2022-01-27] MEDS ORDERED: LEVALBUTEROL 0.63 MG/3 ML NEB NEB ONE (09:37)
[2022-01-27] MEDS ORDERED: MORPHINE 2 MG/ML SYR ONE (09:43)
[2022-01-27] MEDS ORDERED: ASPIRIN 81 MG CHEWABLE TABLET PO ONE (09:44)
--- NOTE | 2022-01-27 09:44 | P.PN ---
Subjective Date of Service: 01/27/22 Primary Care Provider: Anuj Chief Complaint: elevated troponins Subjective: Worsening (patient is doing poorly after his stress test) Review of Systems Respiratory: Shortness of Breath Cardiovascular: Palpitations Physical Examination - Vital Signs Temperature: 98.4 F Blood Pressure: 125/59 Pulse: 79 Respirations: 14 Pulse Ox (%): 98 - Physical Exam General: Alert, In no apparent distress HEENT: Atraumatic, PERRLA, EOMI Neck: Supple, JVD not distended Respiratory: Diminished, Expiratory wheezes Cardiovascular: No edema, Abnormal pulses Gastrointestinal: Normal bowel sounds, No tenderness Musculoskeletal: No tenderness Integumentary: No rashes Neurological: Normal speech, Normal tone, Normal affect Lymphatics: No axilla or inguinal lymphadenopathy Assessment And Plan - Current Problems (Diagnosis) (1) Chest pain Current Visit: Yes Status: Acute Plan: continue troponins. He had an echocardiogram done 3 months ago. hypokinetic movement but normal ejection fraction. Will consult Dr. Turner 8.3 Will move to the icu full dose anticoagulation. Will start him on breathing treatment and morphine. full dose anticoagulation. Will discuss with cardiology . May consider beta blockers iv Qualifiers: Chest pain type: chest pain on breathing Qualified Code(s): R07.1 - Chest pain on breathing; R07.81 - Pleurodynia (2) COPD exacerbation Current Visit: No Status: Acute Plan: continue steroids and breathing treatment. He needs the daliresp. Has agreed to pay for oxygen. He is normal on room air at this point. However when he has exacerbations the patient desaturates. (3) CKD (chronic kidney disease) stage 3, GFR 30-59 ml/min Current Visit: No Status: Chronic Plan: will start him on gentle fluids and monitor his creatine Qualifiers: Chronic kidney disease stage 3 subtype: stage 3b (GFR 30-44) Qualified Code(s): N18.32 - Chronic kidney disease, stage 3b (4) HTN (hypertension) Current Visit: No Status: Chronic Plan: will continue his home meds and adjust as needed Qualifiers: Hypertension type: primary hypertension (5) Nicotine dependence Current Visit: No Status: Chronic Plan: he usually does not need nicotine replacement. As he denies smoking as the cause of this admission will take him at his word Qualifiers: Nicotine product type: cigarettes Discharge Plan: Home Plan to discharge in: Greater than 2 days - Code Status/Comfort Care Code Status Assessed: No Physician Review: Patient Assessed, Agree with Above Assessment and Plan Critical Care: Yes Time Spent Managing PTS Care (In Minutes): 30
[2022-01-27] MEDS: carvediloL 6.25 MG TAB PO SCH ×2 (09:54→21:15)
--- NOTE | 2022-01-27 09:57 | EDPHYS ---
Physician Documentation [facility] Name: Gabo Chow Sr Age: 71 yrs Sex: Male : 1950 Arrival Date: 01/25/2022 Time: 19:27 Bed 18 Private MD: ED Physician Dre Jolley HPI: 01/25 21:20 This 71 yrs old Male presents to ER via EMS with complaints of Shortness Of Breath. cp 21:20 The patient has shortness of breath at rest. cp 21:20 Onset: The symptoms/episode began/occurred suddenly, today. cp 21:20 Associated signs and symptoms: Pertinent negatives: chest pain, productive cough, cp diaphoresis, dizziness, fever, vomiting. Severity of symptoms: in the emergency department the symptoms have improved moderately. Patient reports being discharged from this hospital today after being hospitalized for COPD exacerbation. Patient reports home oxygen not set up yet. Prescribed for as needed. Historical: - Allergies: 19:34 No Known Allergies; iw - PMHx: 19:30 CHF; COPD; Hypertension; Myocardial infarction; iw - PSHx: 19:30 Stented artery; iw - Immunization history:: Client reports having NOT received the Covid vaccine. Flu vaccine is up to date. - Social history:: Smoking status: Patient reports the use of cigarette tobacco products, smokes one pack cigarettes per day. stopped smoking 2 weeks ago . ROS: 21:25 Eyes: Negative for injury, pain, redness, and discharge. cp 21:25 Constitutional: Negative for body aches, chills, fever, poor PO intake. 21:25 ENT: Negative for drainage from ear(s), ear pain, sore throat, difficulty swallowing, difficulty handling secretions. 21:25 Cardiovascular: Negative for chest pain, edema, palpitations. 21:25 Respiratory: Positive for shortness of breath, at rest. 21:25 Abdomen/GI: Negative for abdominal pain, vomiting, diarrhea, constipation. 21:25 Skin: Negative for cellulitis, rash. 21:25 Neuro: Negative for altered mental status, dizziness, headache, numbness, syncope, weakness. 21:25 All other systems are negative. Exam: 21:00 ECG was reviewed by the Attending Physician. cp 21:30 Constitutional: The patient appears in no acute distress, alert, awake, cp non-diaphoretic, non-toxic, well developed, well nourished. 21:30 Head/Face: Normocephalic, atraumatic. cp 21:30 Eyes: Periorbital structures: appear normal, Conjunctiva: normal, no exudate, no injection, Sclera: no appreciated abnormality, Lids and lashes: appear normal, bilaterally. 21:30 ENT: External ear(s): are unremarkable, Nose: is normal, Mouth: Lips: moist, Oral mucosa: pink and intact, moist, Posterior pharynx: Airway: no evidence of obstruction, patent, erythema, is not appreciated, exudate, is not appreciated. 21:30 Neck: ROM/movement: is normal, is supple, without pain, no range of motions limitations, no meningismus. 21:30 Chest/axilla: Inspection: normal. 21:30 Cardiovascular: Rate: normal, Rhythm: regular, Edema: is not appreciated, JVD: is not appreciated. 21:30 Respiratory: the patient does not display signs of respiratory distress, Respirations: labored breathing, that is mild, Breath sounds: bronchial sounds, that are mild, are heard diffusely, decreased breath sounds, that are mild, throughout, stridor, is not appreciated. 21:30 Abdomen/GI: Inspection: abdomen appears normal, Palpation: abdomen is soft and non-tender, in all quadrants. 21:30 Back: pain, is absent, ROM is normal. 21:30 Skin: cellulitis, is not appreciated, no rash present. 21:30 Neuro: Orientation: to person, place \\T\\ time. Mentation: is normal, Motor: moves all fours, strength is normal, Sensation: is normal. Vital Signs: 19:32 BP 128 / 65; Pulse 92; Resp 22 S; Temp 98.4; Pulse Ox 98% on R/A; iw 21:04 BP 137 / 70; Pulse 87; Resp 22; Pulse Ox 97% on R/A; lp1 21:52 BP 139 / 60; Pulse 74; Resp 18; Pulse Ox 100% on 8% Nebulizer Mask; lp1 22:38 BP 128 / 53; Pulse 80; Resp 20; Pulse Ox 98% on R/A; lp1 23:28 BP 129 / 56; Pulse 79; Resp 19; Pulse Ox 98% on R/A; lp1 08 00:47 Weight 74.84 kg (R); lp1 01:31 BP 125 / 59; Pulse 79; Resp 14; Pulse Ox 95% on R/A; lp1 MDM: 01/25 20:46 Patient medically screened. 01/26 00:35 Data reviewed: vital signs, nurses notes, lab test result(s), EKG, radiologic studies, cp plain films, I have discussed the patient's presentation/case with the attending Emergency Department Physician; and as a result, I will admit patient. 00:35 Data interpreted: industrial sociologist: rhythm is normal sinus rhythm, Pulse oximetry: on cp room air is 95 %. Interpretation: acceptable, Plan: O2 by NC applied. Test interpretation: by ED physician or midlevel provider: ECG, plain radiologic studies. 01/25 19:35 Order name: Basic Metabolic Panel; Complete Time: 21:14 01/25 21:14 Interpretation: Normal except: NA 134; K 5.2; GLUC 188; BUN 63; CRE 2.48; GFR 27. 01/25 19:35 Order name: CBC with Diff; Complete Time: 21:14 01/25 21:14 Interpretation: Normal except: WBC 18.0; RBC 4.16; HGB 12.7; HCT 37.9; RDW 15.8; JESSICA% cp 83.4; LYM% 12.5; NEUT A 15.0. 01/25 19:35 Order name: NT PRO-BNP; Complete Time: 21:14 01/25 21:15 Interpretation: Abnormal: NT PRO-BNP 5491. 01/25 19:35 Order name: PT-INR; Complete Time: 21:14 01/25 19:35 Order name: Troponin HS; Complete Time: 21:14 01/25 21:15 Interpretation: Abnormal: Troponin HS 74.9. 01/25 19:54 Order name: Manual Differential; Complete Time: 21:14 EDRI 01/25 23:14 Order name: Troponin High Sensitivity: repeat \\T\\0000; Complete Time: 00:32 01/25 23:14 Order name: Potassium: repeat \\T\\0000; Complete Time: 00:32 01/26 00:59 Order name: COVID-19 SARS RT PCR (Document "Date of Onset" if Symptomatic) 01/26 04:51 Order name: Basic Metabolic Panel EDMS 01/26 04:51 Order name: Basic Metabolic Panel EDMS 01/26 04:51 Order name: CBC with Automated Diff EDMS 01/26 04:51 Order name: CBC with Automated Diff EDMS 01/26 04:51 Order name: NT PRO-BNP EDMS 01/25 19:35 Order name: XRAY Chest (1 view); Complete Time: 21:14 iw 01/25 19:35 Order name: EKG; Complete Time: 19:37 iw 01/25 19:35 Order name: Cardiac monitoring; Complete Time: 21:05 iw 01/25 19:35 Order name: EKG - Nurse/Tech; Complete Time: 21:05 iw 01/25 19:35 Order name: IV Saline Lock; Complete Time: 21:05 iw 01/25 19:35 Order name: Labs collected and sent; Complete Time: 21:05 iw 01/26 04:51 Order name: Low Sodium EDMS 01/26 04:51 Order name: NT PRO-BNP EDMS 01/26 09:30 Order name: Troponin High Sensitivity EDMS 01/26 15:10 Order name: Troponin High Sensitivity EDMS 01/26 17:02 Order name: Glucose, Ancillary Testing EDMS 01/25 19:35 Order name: O2 Per Protocol; Complete Time: 21:05 iw 01/25 19:35 Order name: O2 Sat Monitoring; Complete Time: 21:05 iw EC/01 21:00 Rate is 78 beats/min. Rhythm is regular. NE interval is normal. QRS interval is cp prolonged at 126 msec. QT interval is normal. T waves are Inverted in leads I, II. Interpreted by me. Reviewed by me. Administered Medications: 21:18 CANCELLED (Physician Discretion): Lasix (furosemide) 20 mg IVP once; give over 2 minutescp 21:39 Drug: Albuterol 2.5 mg Route: Inhalation; lp1 21:39 Drug: Lasix (furosemide) 40 mg Route: IVP; Site: left antecubital; lp1 23:29 Follow up: Response: No adverse reaction lp1 22:00 Drug: Albuterol 2.5 mg Route: Inhalation; lp1 23:00 Drug: Albuterol 2.5 mg Route: Inhalation; lp1 01/26 00:38 Drug: Aspirin Chewable Tablet 324 mg Route: PO; kl 01:32 Follow up: Response: No adverse reaction lp1 01:00 Drug: Lovenox (enoxaparin) 1 mg/kg Route: Sub-Q; Site: right lower abdomen; lp1 01:33 Follow up: Response: No adverse reaction lp1 Disposition: 06:13 Co-signature as Attending Physician, Dre Jolley MD I agree with the assessment and kdr plan of care. Disposition Summary: 01/26/22 00:47 Hospitalization Ordered Hospitalization Status: Observation cp Provider: Joesph Leslie cp Condition: Stable cp Problem: new cp Symptoms: have improved cp Bed/Room Type: Standard cp Location: Telemetry/MedSurg (observation)(01/26/22 20:11) Room Assignment: [facility](01/26/22 20:11) Diagnosis - Unspecified combined systolic (congestive) and diastolic (congestive) heart failure cp - COPD/ Chronic obstructive pulmonary disease with (acute) exacerbation cp - Chronic kidney disease, unspecified cp Forms: - Medication Reconciliation Form cp - SBAR form cp Signatures: Dispatcher [employer] EDJyoti Cleveland RN RN kl Webb, Martha, RN RN mw Rittger, Kevin, MD MD [facility] Mireille Yang RN RN Kirsten Castrejon RN RN lp1 Vamshi Holland PA PA cp Yelena Redman RN RN sm5 Corrections: (The following items were deleted from the chart) 08 21:18 21:17 Lasix (furosemide) 20 mg IVP once; give over 2 minutes ordered. cp cp 22:13 21:00 ECG was reviewed by the Attending Physician. cp cp 01/26 01:01 00:47 Telemetry/MedSurg (observation) cp sm5 01: 00:47 cp sm5 20:11 01:01 [facility] ER HOLD sm5 mw 20:11 01:01 ERHOLD- sm5 mw 01/27 12:10 08 21:25 Constitutional: Negative for body aches, chills, fever, poor PO intake, cp cp 01/27 12:10 08 21:25 Cardiovascular: Negative for chest pain, edema, palpitations, cp cp 01/27 12:10 01/26 21:25 Respiratory: Positive for shortness of breath, at rest. cp cp 01/27 12:10 01/26 21:25 Abdomen/GI: Negative for abdominal pain, vomiting, diarrhea, constipation, cp cp 01/27 12:01/26 21:25 Eyes: Negative for injury, pain, redness, and discharge, cp cp 01/28 12:01/26 21:25 ENT: Negative for drainage from ear(s), ear pain, sore throat, difficulty cp swallowing, difficulty handling secretions, cp 01/28 12:01/26 21:25 Skin: Negative for cellulitis, rash, cp cp 01/28 12:01/26 21:25 Neuro: Negative for altered mental status, dizziness, headache, numbness, cp syncope, weakness, cp 01/27 12:01/26 21:25 All other systems are negative, cp cp
--- NOTE | 2022-01-27 09:57 | ER ---
Nurse's Notes [facility] Name: Gabo Chwo Sr Age: 71 yrs Sex: Male : 1950 Arrival Date: 01/25/2022 Time: 19:27 Bed 18 Private MD: Diagnosis: Unspecified combined systolic (congestive) and diastolic (congestive) heart failure;COPD/ Chronic obstructive pulmonary disease with (acute) exacerbation;Chronic kidney disease, unspecified Presentation: 01/25 19:27 Chief complaint: EMS states: pt was d/c today from hospital today for COPD exacerbation iw , was prescribed home O2 but it was not set up yet, pt was 98% on RA with labored respirations and wheezing, EMS gave 2 breathing treatments , symptoms improved. Coronavirus screen: Client presents with at least one sign or symptom that may indicate coronavirus-19. Ebola Screen: Patient negative for fever greater than or equal to 101.5 degrees Fahrenheit, and additional compatible Ebola Virus Disease symptoms Patient denies exposure to infectious person. Patient denies travel to an Ebola-affected area in the 21 days before illness onset. No symptoms or risks identified at this time. Initial Sepsis Screen: Does the patient meet any 2 criteria? No. Patient's initial sepsis screen is negative. Does the patient have a suspected source of infection? No. Patient's initial sepsis screen is negative. Risk Assessment: Do you want to hurt yourself or someone else? Patient reports no desire to harm self or others. Onset of symptoms was January 25, 2022. 19:27 Acuity: ALLI 3 iw 19:27 Method Of Arrival: EMS: [facility] iw 19:32 Chief complaint: pt states he was outside getting the lawn ready to be mowed and he iw started feeling bad, he used his albuterol inhaler and he felt better after the breathing treatments by EMS , pt states he as prescribed O2 as needed, he has not gotten the script filled yet. Historical: - Allergies: 19:34 No Known Allergies; iw - PMHx: 19:30 CHF; COPD; Hypertension; Myocardial infarction; iw - PSHx: 19:30 Stented artery; iw - Immunization history:: Client reports having NOT received the Covid vaccine. Flu vaccine is up to date. - Social history:: Smoking status: Patient reports the use of cigarette tobacco products, smokes one pack cigarettes per day. stopped smoking 2 weeks ago . Screenin:05 Abuse screen: Denies threats or abuse. Denies injuries from another. Nutritional lp1 screening: No deficits noted. Tuberculosis screening: No symptoms or risk factors identified. Fall Risk Total Mead Fall Scale indicates High Risk Score (45 or more points). Fall prevention measures have been instituted. Side Rails Up X 2 Family Present and informed to notify staff if the need to leave the bedside As available patient and family educated on Fall Prevention Program and Strategies. Assessment: 21:04 General: Appears in no apparent distress. Behavior is calm, cooperative, appropriate lp1 for age. Pain: Denies pain. Neuro: Level of Consciousness is awake, alert, obeys commands, Oriented to person, place, time, situation. Cardiovascular: Patient's skin is warm and dry. Rhythm is regular. Respiratory: Reports shortness of breath Airway is patent Respiratory effort is even, Respiratory pattern is regular, Breath sounds are clear bilaterally. the patient reports symptoms have resolved. GI: No signs and/or symptoms were reported involving the gastrointestinal system. : No signs and/or symptoms were reported regarding the genitourinary system. EENT: No signs and/or symptoms were reported regarding the EENT system. Derm: Skin is intact, Skin is dry, Skin is normal. Musculoskeletal: No deficits noted. 22:38 Reassessment: Patient appears in no apparent distress at this time. Patient is alert, lp1 oriented x 3, equal unlabored respirations, skin warm/dry/pink. Patient states feeling better. 23:28 Reassessment: Patient appears in no apparent distress at this time. Patient is alert, lp1 oriented x 3, equal unlabored respirations, skin warm/dry/pink. Patient resting, no apparent discomfort. 01/26 01:00 Reassessment: Patient appears in no apparent distress at this time. Patient resting, lp1 eyes closed, respirations even. Vital Signs: 01/25 19:32 BP 128 / 65; Pulse 92; Resp 22 S; Temp 98.4; Pulse Ox 98% on R/A; iw 21:04 BP 137 / 70; Pulse 87; Resp 22; Pulse Ox 97% on R/A; lp1 21:52 BP 139 / 60; Pulse 74; Resp 18; Pulse Ox 100% on 8% Nebulizer Mask; lp1 22:38 BP 128 / 53; Pulse 80; Resp 20; Pulse Ox 98% on R/A; lp1 23:28 BP 129 / 56; Pulse 79; Resp 19; Pulse Ox 98% on R/A; lp1 01/26 00:47 Weight 74.84 kg (R); lp1 01:31 BP 125 / 59; Pulse 79; Resp 14; Pulse Ox 95% on R/A; lp1 ED Course: 01/25 19:27 Patient arrived in ED. iw 19:30 Triage completed. iw 19:30 Arm band placed on. iw 19:39 Initial lab(s) drawn, by me, sent to lab. Maintain EMS IV. Dressing intact. Good blood iw return noted. Site clean \T\ dry. Gauge \T\ site: 20 Lac. 20:11 XRAY Chest (1 view) In Process Unspecified. EDMS 20:44 Vamshi Holland PA is PHCP. cp 20:44 Dre Jolley MD is Attending Physician. cp 20:46 Kirsten Castrejon RN is Primary Nurse. lp1 21:05 Patient has correct armband on for positive identification. Bed in low position. Call lp1 light in reach. Client placed on continuous cardiac and pulse oximetry monitoring. NIBP monitoring applied. 01/26 00:00 Repeat lab(s) drawn. by me, sent to lab. lp1 00:21 No provider procedures requiring assistance completed. lp1 00:46 Joesph Leslie MD is Hospitalizing Provider. cp 01:10 COVID swab sent to lab. lp1 Administered Medications: 01/25 21:18 CANCELLED (Physician Discretion): Lasix (furosemide) 20 mg IVP once; give over 2 minutescp 21:39 Drug: Albuterol 2.5 mg Route: Inhalation; lp1 21:39 Drug: Lasix (furosemide) 40 mg Route: IVP; Site: left antecubital; lp1 23:29 Follow up: Response: No adverse reaction lp1 22:00 Drug: Albuterol 2.5 mg Route: Inhalation; lp1 23:00 Drug: Albuterol 2.5 mg Route: Inhalation; lp1 01/26 00:38 Drug: Aspirin Chewable Tablet 324 mg Route: PO; 01:32 Follow up: Response: No adverse reaction lp1 01:00 Drug: Lovenox (enoxaparin) 1 mg/kg Route: Sub-Q; Site: right lower abdomen; lp1 01:33 Follow up: Response: No adverse reaction lp1 Medication: 00:21 VIS not applicable for this client. lp1 Output: 01/25 23:28 Urine: 450ml (Voided); Total: 450ml. lp1 01/26 04:59 Urine: 900ml (Voided); Total: 1350ml. lp1 Outcome: 00:47 Decision to Hospitalize by Provider. cp 01:10 Condition: stable lp1 01:10 Instructed on the need for admit. 01:31 Admitted to ER Hold. Please see [facility] for further documentation. lp1 21:47 Patient left the ED. sm5 Signatures: Dispatcher [employer] EDMS Jyoti Mooney RN RN kl Williams, Irene, RN RN Kirsten Castrejon RN RN 1 Vamshi Holland PA PA cp Mazur, Sarah RN RN 5 Corrections: (The following items were deleted from the chart) 01/25 19:34 19:32 Chief complaint: pt states he was outside getting the lawn ready to be mowed and iw he started feeling bad, he used his albuterol inhaler and he felt better after the breathing treatments by EMS iw 01/26 00:21 01/25 21:04 Respiratory: Airway is patent Respiratory effort is even, Respiratory lp1 pattern is regular, Breath sounds are clear bilaterally. the patient reports symptoms have resolved lp1
--- NOTE | 2022-01-27 10:24 | RAD REPORT ---
EXAM DESCRIPTION: Irais Single View01/27/2022 10:04 am CLINICAL HISTORY: Shortness of breath/tachycardia COMPARISON: January 25, 2022 FINDINGS: Moderate bilateral pulmonary opacities. Heart remains enlarged IMPRESSION: Moderate bilateral pulmonary opacities may represent pulmonary edema or pneumonia
[2022-01-27] MEDS: ENOXAPARIN 80 MG/0.8 ML SQ SCH ×2 (10:40→21:15)
[2022-01-27] MEDS: NA CHLORIDE 0.9% 1,000 ML IV SCH (10:40)
[2022-01-27] MEDS ORDERED: FUROSEMIDE 40 MG/4 ML VIAL IV SCH (12:16)
[2022-01-27] MEDS ORDERED: CLOPIDOGREL 75 MG TABLET PO ONE (12:19)
--- NOTE | 2022-01-27 12:24 | P.CNS ---
Date of Consult: 01/27/22 Primary Care Provider: Aunj Chief Complaint: Respiratory distress History of Present Illness: Patient is 71 years of age recurrent hospitalizations at this time he went home when outside walked a few feet clamped down more short of breath that is recurrent spells multiple hospital admissions to do a stress test today nearly passed out became diaphoretic his troponins have gone up progressively denies any chest pain Allergies No Known Allergies Allergy (Verified 05/20/12 16:57) Home Medications: Amlodipine Besylate 5 mg PO DAILY 01/10/22 Furosemide 40 mg PO DAILY 01/10/22 carvediloL [Carvedilol] 6.25 mg PO BID 6AM 6PM 01/10/22 lisinopriL [Lisinopril] 40 mg PO DAILY 01/10/22 Levofloxacin [Levaquin] 500 mg PO DAILY 7 Days #7 tab 01/25/22 Prednisone [Sterapred Ds] 10 mg PO BID 15 Days #35 01/25/22 Roflumilast [Daliresp] 500 mcg PO DAILY 30 Days #30 tab 01/25/22 - Past Medical/Surgical History Diabetic: No -: HTN -: COPD -: [place] -: CAD -: heart stent - Family History Father Medical History: GI disease, Other (see notes) Notes: Heart attack Mother Medical History: Cancer Notes: COPd - Social History Smoking Status: Current every day smoker Alcohol use: No CD- Drugs: No Caffeine use: Yes Review of Systems 10-point ROS is otherwise unremarkable General: Weakness Respiratory: Shortness of Breath Physical Examination Temp Pulse Resp BP Pulse Ox 98.4 F 91 H 18 154/64 H 96 01/27/22 09:44 01/27/22 11:00 01/27/22 11:00 01/27/22 11:00 01/27/22 11:00 General: Alert, In no apparent distress, Oriented x3 Respiratory: Clear to auscultation bilaterally, Diminished Cardiovascular: No edema, Regular rate/rhythm, Normal S1 S2 Gastrointestinal: Normal bowel sounds, Soft and benign - Problems (1) Respiratory distress Current Visit: Yes Status: Acute Plan: Patient is 71 years of age admitted with recurrent episodes of worsening dyspnea he has a history of coronary artery disease came very diaphoretic during the stress test most likely he has underlying coronary artery disease I will order an echo troponins are elevated he has a very abnormal EKG of started patient on Plavix aspirin beta-helen and is on KATIANA inhibitor's also statins start patient on IV Lasix scheduled bronchodilators
[2022-01-27] MEDS: METOPROLOL TAR 25 MG TAB PO SCH ×2 (13:20→17:38)
[2022-01-27] MEDS: AZITHROMYCIN 250 MG TAB PO SCH (13:20)
[2022-01-27] MEDS: LEVALBUTEROL 0.63 MG/3 ML NEB NEB SCH ×2 (14:08→19:45)
[2022-01-27] MEDS: IPRATROPIUM BROM 0.5MG/2.5ML IH SCH ×2 (14:08→19:45)
--- NOTE | 2022-01-27 14:40 | TREADPHA ---
DX: CHEST PAIN, SHORTNESS OF BREATH Date of Study: 01/27/2022 Ht: 5' 9 " Wt: 165 lb 0 oz Consulting Physician: GRAEME MEDICATIONS: AMLODIPINE, PREDNISONE, LEVAQUIN, LASIX, DALIRESP, LISINOPRIL, CARVEDILOL HISTORY: 71 YEAR OLD MALE WITH CHEST PAIN AND SHORTNESS OF BREATH. HISTORY OF COPD, CORONARY ARTERY DISEASE, HYPERTENSION, SMOKES 1 PACK DAILY, DENIES ALCOHOL OR DRUG USE, STENT TO HEART PLACED IN 2011. PHYSICIAL EXAMINATION: RESTING B.P.: 135/78 RESTING H.R.: 65 RESTING EKG: SINUS RHYTHM, IVCD PROTOCOL: LEXISCAN EXERCISE TIME: 3:30 B.P. AT PEAK STRESS: 154/91 IMPRESSION: LEXISCAN INJECTED. CARDIOLITE GIVEN PER PROTOCOL. SEE NUCLEAR MEDICINE REPORT. PREMATURE VENTRICULAR COMPLEXES NOTED. PATIENT WITH COMPLAINTS OF SHORTNESS OF BREATH. 2L NC APPLIED. 97% O2 SAT. NO PREMATURE ATRIAL COMPLEXES. NO VENTRICULAR SUPRANVENTRICULAR TACHYCARDIA NOTED. FREQUENT PREMATURE VENTRICULAR COMPLEXES NOTED IN RECOVERY 9 BEAT RUN. RAPID RESPONSE CALLED FOR INCREASED WORK OF BREATHING PATIENT TRANSFERRED TO ICU.
[2022-01-27] MEDS: ATORVASTATIN 20 MG TAB PO SCH (21:16)
[2022-01-28] MEDS: IPRATROPIUM BROM 0.5MG/2.5ML IH SCH ×4 (01:25→20:00)
[2022-01-28] MEDS: LEVALBUTEROL 0.63 MG/3 ML NEB NEB SCH ×4 (01:25→20:00)
[2022-01-28] MEDS: dexAMETHasone 4 MG/ML VIAL IV SCH ×3 (01:50→17:31)
[2022-01-28 05:09] LABS: Absolute Lymphocytes (CBC) 2.1 K/uL (0.7-4.9); Hematocrit 35.9 % (39.6-49.0); Lymphocytes % 13.7 % (15.3-44.8); MCV 90.7 fL (80-100); MPV 8.3 fL (7.6-11.3); RBC Red Blood Cell Count 3.95 M/uL (4.33-5.43)
[2022-01-28 05:18] LABS: Albumin 2.6 g/dL (3.4-5.0); Bilirubin Total 0.4 mg/dL (0.2-1.0); Protein, Total 5.3 g/dL (6.4-8.2)
[2022-01-28 05:30] LABS: Magnesium 2.3 mg/dL (1.8-2.4)
[2022-01-28] MEDS: METOPROLOL TAR 25 MG TAB PO SCH (06:00)
--- NOTE | 2022-01-28 07:31 | EKG ---
Test Date: 2022-01-27 Test Time: 09:36:08 Farm [employer] Representative: LEORA MEASUREMENT RESULTS: Intervals: Rate: 130 CO: 120 QRSD: 142 QT: 324 QTc: 476 [place]: P: 64 CO: 120 QRS: 62 T: 232 INTERPRETIVE STATEMENTS: Sinus tachycardia with fusion complexes Left bundle branch block Abnormal ECG Compared to ECG 01/27/2022 09:35:32 Fusion complex(es) now present Electronically Signed On 01-28-22 07:30:53 CDT by Irvin Turner
--- NOTE | 2022-01-28 07:31 | EKG ---
Test Date: 2022-01-27 Test Time: 09:35:32 Gig Tender: LEORA MEASUREMENT RESULTS: Intervals: Rate: 128 AL: 126 QRSD: 136 QT: 304 QTc: 443 [place]: P: 63 AL: 126 QRS: 64 T: 234 INTERPRETIVE STATEMENTS: Sinus tachycardia Left bundle branch block Abnormal ECG Compared to ECG 01/25/2022 20:53:04 Left bundle-branch block now present Sinus rhythm no longer present Myocardial infarct finding no longer present T-wave abnormality no longer present Possible ischemia no longer present Electronically Signed On 01-28-22 07:30:56 CDT by Irvin Turner
[2022-01-28] MEDS: CLOPIDOGREL 75 MG TABLET PO SCH (08:20)
[2022-01-28] MEDS: AZITHROMYCIN 250 MG TAB PO SCH (08:20)
[2022-01-28] MEDS: ENOXAPARIN 80 MG/0.8 ML SQ SCH (08:20)
[2022-01-28] MEDS: ASPIRIN EC 81 MG TAB PO SCH (08:21)
--- NOTE | 2022-01-28 08:59 | P.PN ---
Subjective Date of Service: 01/28/22 Primary Care Provider: Anuj Chief Complaint: Respiratory distress Subjective: Improving Review of Systems 10-point ROS is otherwise unremarkable Respiratory: Shortness of Breath Physical Examination - Vital Signs Temperature: 97.5 F Blood Pressure: 121/56 Pulse: 49 Respirations: 14 Pulse Ox (%): 98 - Physical Exam General: Alert, In no apparent distress HEENT: Atraumatic, PERRLA, EOMI Neck: Supple, JVD not distended Respiratory: Clear to auscultation bilaterally, Normal air movement Cardiovascular: Regular rate/rhythm, Normal S1 S2 Gastrointestinal: Normal bowel sounds, No tenderness Musculoskeletal: No tenderness Integumentary: No rashes Neurological: Normal speech, Normal tone, Normal affect Lymphatics: No axilla or inguinal lymphadenopathy Assessment And Plan - Current Problems (Diagnosis) (1) Chest pain Current Visit: Yes Status: Acute Plan: continue troponins. He had an echocardiogram done 3 months ago. hypokinetic movement but normal ejection fraction. Will consult Dr. Turner 8.3 Will move to the icu full dose anticoagulation. Will start him on breathing treatment and morphine. full dose anticoagulation. Will discuss with cardiology . May consider beta blockers iv Qualifiers: Chest pain type: chest pain on breathing Qualified Code(s): R07.1 - Chest pain on breathing; R07.81 - Pleurodynia (2) COPD exacerbation Current Visit: No Status: Acute Plan: continue steroids and breathing treatment. He needs the daliresp. Has agreed to pay for oxygen. He is normal on room air at this point. However when he has exacerbations the patient desaturates. (3) CKD (chronic kidney disease) stage 3, GFR 30-59 ml/min Current Visit: No Status: Chronic Plan: will start him on gentle fluids and monitor his creatine 01/[address] Vargas Qualifiers: Chronic kidney disease stage 3 subtype: stage 3b (GFR 30-44) Qualified Code(s): N18.32 - Chronic kidney disease, stage 3b (4) HTN (hypertension) Current Visit: No Status: Chronic Plan: will continue his home meds and adjust as needed Qualifiers: Hypertension type: primary hypertension (5) Nicotine dependence Current Visit: No Status: Chronic Plan: he usually does not need nicotine replacement. As he denies smoking as the cause of this admission will take him at his word Qualifiers: Nicotine product type: cigarettes Discharge Plan: Home Plan to discharge in: Greater than 2 days - Code Status/Comfort Care Code Status Assessed: No Physician Review: Patient Assessed, Agree with Above Assessment and Plan Critical Care: No Time Spent Managing PTS Care (In Minutes): 20
[2022-01-28] MEDS: carvediloL 6.25 MG TAB PO SCH ×2 (09:00→21:00)
--- NOTE | 2022-01-28 10:30 | P.CNS ---
Date of Consult: 01/28/22 Reason for Consult: MEHREEN/ CKD Requesting Physician: Joesph Leslie Primary Care Provider: Dr. Leslie Chief Complaint: Respiratory distress History of Present Illness: 71 yo WM HTN presented to the ER with 1 day of moderate, persistent dyspnea in the setting of COPD. Found to have MEHREEN on CKD. Denies NSAIDs. No difficulty with urination. 21:20 This 71 yrs old Male presents to ER via EMS with complaints of Shortness Of Breath. cp 21:20 The patient has shortness of breath at rest. cp 21:20 Onset: The symptoms/episode began/occurred suddenly, today. cp 21:20 Associated signs and symptoms: Pertinent negatives: chest pain, productive cough, cp diaphoresis, dizziness, fever, vomiting. Severity of symptoms: in the emergency department the symptoms have improved moderately. Patient reports being discharged from this hospital today after being hospitalized for COPD exacerbation. Patient reports home oxygen not set up yet. Prescribed for as needed. Allergies No Known Allergies Allergy (Verified 05/20/12 16:57) Home medications list reviewed: Yes Home Medications: Amlodipine Besylate 5 mg PO DAILY 01/10/22 Furosemide 40 mg PO DAILY 01/10/22 carvediloL [Carvedilol] 6.25 mg PO BID 6AM 6PM 01/10/22 lisinopriL [Lisinopril] 40 mg PO DAILY 01/10/22 Levofloxacin [Levaquin] 500 mg PO DAILY 7 Days #7 tab 01/25/22 Prednisone [Sterapred Ds] 10 mg PO BID 15 Days #35 01/25/22 Roflumilast [Daliresp] 500 mcg PO DAILY 30 Days #30 tab 01/25/22 - Past Medical/Surgical History Diabetic: No -: HTN -: COPD -: [place] -: CAD -: CKD followed by Dr. Roy -: heart stent - Family History Father Medical History: GI disease, Other (see notes) Notes: Heart attack Mother Medical History: Cancer Notes: COPd - Social History Smoking Status: Current every day smoker Alcohol use: No CD- Drugs: No Caffeine use: Yes Review of Systems 10-point ROS is otherwise unremarkable General: Weakness Physical Examination Temp Pulse Resp BP Pulse Ox 97.5 F 48 L 14 129/55 L 98 01/28/22 08:59 01/28/22 09:00 01/28/22 08:59 01/28/22 09:00 01/28/22 08:59 General: In no apparent distress, Oriented x3, Cooperative HEENT: Atraumatic Neck: Supple Respiratory: Clear to auscultation bilaterally Cardiovascular: No edema, Regular rate/rhythm Gastrointestinal: Soft and benign, Non-distended Musculoskeletal: No clubbing, No contractures Integumentary: No rashes, No cyanosis Neurological: Normal speech Blood work reviewed in the chart. Imagings Data: EXAM DESCRIPTION: Irais Single View01/27/2022 10:04 am CLINICAL HISTORY: Shortness of breath/tachycardia COMPARISON: January 25, 2022 FINDINGS: Moderate bilateral pulmonary opacities. Heart remains enlarged IMPRESSION: Moderate bilateral pulmonary opacities may represent pulmonary edema or pneumonia Conclusions/Impression: MEHREEN, improving CKD III -No NSAIDs -Mucomyst and gentle IVF started to prevent ROXY Hyponatremia -Gentle IVF with NS Hyperkalemia -Monitor level HTN with CKD -Continue Coreg Hyperglycemia -Wean steroids as tolerated -Check A1C Moderate malnutrition -Encourage nutrition Case reviewed with Dr. Leslie Thank you kindly for the referral.
--- NOTE | 2022-01-28 14:37 | ECHO ---
HEIGHT: 5 ft 9 in WEIGHT: 173 lb 8 oz DATE OF STUDY: 01/28/[address]: Evangelist Carter MD 2-DIMENSIONAL: YES M.MODE: YES DOPPLER: YES COLOR FLOW: YES TDS: NO PORTABLE: YES DEFINITY: NO BUBBLE STUDY: NO DIAGNOSIS: NSTEMI CARDIAC HISTORY: CATHERIZATION:YES SURGERY: YES PROSTHETIC VALVE: NO PACEMAKER: NO MEASUREMENTS (cm) DIASTOLIC (NORMALS) SYSTOLIC (NORMALS) IVSd 1.3 (0.6-1.2) LA Diam 2.7 (1.9-4.0) LVEF 50% LVIDd 4.4 (3.5-5.7) LVIDs 3.3 (2.0-3.5) %FS 26% LVPWd 1.3 (0.6-1.2) Ao Diam 2.5 (2.0-3.7) 2 DIMENSIONAL ASSESSMENT: RIGHT ATRIUM: NOT SEEN WELL LEFT ATRIUM: NORMAL RIGHT VENTRICLE: NOT SEEN WELL LEFT VENTRICLE: MILD LEFT VENTRICULAR HYPERTROPHY TRICUSPID VALVE: NOT SEEN WELL MITRAL VALVE: PULMONIC VALVE: NOT SEEN WELL AORTIC VALVE: PERICARDIAL EFFUSION: NONE AORTIC ROOT: NORMAL LEFT VENTRICULAR WALL MOTION: UNABLE TO EVALUATE DUE TO POOR WINDOWS. DOPPLER/COLOR FLOW: SEE BELOW COMMENTS: VERY POOR STUDY. LEFT VENTRICULAR EJECTION FRACTION APPEARS LOW NORMAL 50%. MILD MITRAL AND AORTIC REGURGITATION. TECHNOLOGIST: Yokasta CONLEY
[2022-01-28] MEDS ORDERED: ENOXAPARIN 30 MG/0.3 ML SQ SCH (17:00)
[2022-01-28] MEDS ORDERED: NA CHLORIDE 0.9% 1,000 ML IV SCH (21:00)
[2022-01-28] MEDS: ATORVASTATIN 20 MG TAB PO SCH (21:56)
[2022-01-28] MEDS: ACETYLCYST 20% 800 MG/4 ML VIAL PO SCH (21:56)
--- NOTE | 2022-01-29 01:21 | CON ---
Date of Consultation: 01/26/2022 Reason For Consultation: Shortness of breath. History Of Present Illness: Mr. Chow is a 71-year-old male. He is known to have severe COPD and con gestive heart failure, hypertension, and coronary artery disease, status post stents in the past. He keeps coming back to the hospital with shortness of breath. He denied PND, orthopnea, pedal edema, palpitations, or syncope. He does basically have shortness of breath as his only symptoms. Denied a [place] fever or chills. He is known to be noncompliant. Review of Systems: Negative. Social History: Negative. Family History: Negative. Medications: At home are supposed to be amlodipine, Lasix, prednisone, Levaquin, Daliresp, carvedilo l, and lisinopril. Physical Examination: Vital Signs: Stable. He was afebrile. He was in sinus rhythm, O2 saturation was 95% on room air. HEENT: Negative. Neck: Supple without any bruit, lymphadenopathy, JVD, or thyromegaly. Chest: Revealed expiratory wheezes. Cardiac: Revealed a regular rhythm and rate. No murmurs, gallops, or rubs. Abdomen: Benign. Extremities: Revealed no clubbing, cyanosis, or edema. Diagnostic Data: Chest x-ray showed emphysema. His creatinine was 1.98. His hemoglobin is 11.6 wit h elevated white count of 12,000. His potassium was 5.6. Troponin was 152. EKG showed nonspecific intraventricular conduction delay with normal sinus rhythm and possible inferolateral ischemia. Impression And Plan: 1.Shortness of breath, probably secondary to chronic obstructive pulmonary disease exacerbation. 2.Chronic diastolic congestive heart failure. 3.Hypertension. 4.Coronary artery disease, status post stent. The patient has significant renal insufficiency, elevated troponin, which I think is secondary to dem and ischemia from hypoxia and renal insufficiency. I certainly do not want to perform a heart cathet erization on Mr. Chow with his kidney function. I would prefer that we do an echocardiogram and a st ress test before making further decisions. The case was discussed with Dr. Leslie. Pulmonary consult ation is recommended. Echocardiogram is recommended. SHELTON/ARTURO Voice ID: [id number] Report ID: [id number]
[2022-01-29] MEDS: IPRATROPIUM BROM 0.5MG/2.5ML IH SCH ×4 (01:25→20:19)
[2022-01-29] MEDS: LEVALBUTEROL 0.63 MG/3 ML NEB NEB SCH ×4 (01:25→20:19)
--- NOTE | 2022-01-29 02:06 | PN ---
Date of Progress Note: 01/27/2022 Mr. Chow has a history of COPD, CAD, status post stent, chronic diastolic congestive heart failure, s ignificant renal insufficiency, elevated troponin, has chronic systolic congestive heart failure with an ejection fraction of 42%. An attempt to do a stress test yesterday failed because he was having multiple episodes of ventricular tachycardia and chest pain and discomfort, was transferred to the [facility] for further evaluation and treatment. In the ICU on 01/27/2022, he was actually feeling better. H is vital signs were stable. He was afebrile and he had an O2 saturation of 98% on high-flow oxygen. His creatinine has went down to 1.98. His potassium was 5.0. His troponin actually came down to 10 7 again consistent with demand ischemia. Nevertheless, I think Mr. Chow with his history deserves to be treated with what he is treated with right now including mild diuresis, inhalers as well as stable, we will consider a heart catheterization if Nephrology is okay with that. We will cont inue to follow him as needed. SHELTON/ARTURO Voice ID: [id number] Report ID: [id number]
[2022-01-29] MEDS: dexAMETHasone 4 MG/ML VIAL IV SCH (04:35)
[2022-01-29 05:11] LABS: Absolute Lymphocytes (CBC) 2.5 K/uL (0.7-4.9); Hematocrit 37.5 % (39.6-49.0); Lymphocytes % 17.6 % (15.3-44.8); MCV 91.3 fL (80-100); MPV 8.3 fL (7.6-11.3); RBC Red Blood Cell Count 4.11 M/uL (4.33-5.43)
[2022-01-29 05:25] LABS: Albumin 2.6 g/dL (3.4-5.0); Bilirubin Total 0.4 mg/dL (0.2-1.0); Magnesium 2.4 mg/dL (1.8-2.4); Phosphorus 3.4 mg/dL (2.5-4.9); Potassium 4.9 mmol/L (3.5-5.1); Protein, Total 5.4 g/dL (6.4-8.2)
[2022-01-29 05:53] LABS: Urine Bilirubin Negative (Negative); Urine Blood 2+ (Negative); Urine Clarity Clear (Clear); Urine Color Yellow (Yellow); Urine Glucose Trace (Negative); Urine Protein 2+ (Negative); Urine Urobilinogen 0.2 mg/dL (0.2-1.0); Urine pH 5.5 (5.0-7.0)
[2022-01-29] MEDS: PANTOPRAZOLE 40MG TABLET PO SCH (05:58)
[2022-01-29 06:03] LABS: UR PROTEIN 58.1 mg/dL (<11.9); Urine Protein/Creatinine Ratio 0.82 ratio (<0.15)
[2022-01-29 06:32] LABS: Urine Bacteria 20-50 /HPF (<20)
--- NOTE | 2022-01-29 08:11 | P.PN ---
Subjective Date of Service: 01/29/22 Primary Care Provider: Dr. Leslie Chief Complaint: Respiratory distress Subjective: No new changes Review of Systems 10-point ROS is otherwise unremarkable Physical Examination - Vital Signs Temperature: 98.1 F Blood Pressure: 160/67 Pulse: 52 Respirations: 13 Pulse Ox (%): 97 - Physical Exam General: Alert, In no apparent distress HEENT: Atraumatic, PERRLA, EOMI Neck: Supple, JVD not distended Respiratory: Clear to auscultation bilaterally, Normal air movement Cardiovascular: Regular rate/rhythm, Normal S1 S2 Gastrointestinal: Normal bowel sounds, No tenderness Musculoskeletal: No tenderness Integumentary: No rashes Neurological: Normal speech, Normal tone, Normal affect Lymphatics: No axilla or inguinal lymphadenopathy Assessment And Plan - Current Problems (Diagnosis) (1) Chest pain Current Visit: Yes Status: Acute Plan: continue troponins. He had an echocardiogram done 3 months ago. hypokinetic movement but normal ejection fraction. Will consult Dr. Turner 8.5 possible cath on Tuesday Qualifiers: Chest pain type: chest pain on breathing Qualified Code(s): R07.1 - Chest pain on breathing; R07.81 - Pleurodynia (2) COPD exacerbation Current Visit: No Status: Acute Plan: continue steroids and breathing treatment. He needs the [employer]. Has agreed to pay for oxygen. He is normal on room air at this point. However when he has exacerbations the patient desaturates. (3) CKD (chronic kidney disease) stage 3, GFR 30-59 ml/min Current Visit: No Status: Chronic Plan: will start him on gentle fluids and monitor his creatine 01/[address] Vargas Qualifiers: Chronic kidney disease stage 3 subtype: stage 3b (GFR 30-44) Qualified Code(s): N18.32 - Chronic kidney disease, stage 3b (4) HTN (hypertension) Current Visit: No Status: Chronic Plan: will continue his home meds and adjust as needed Qualifiers: Hypertension type: primary hypertension (5) Nicotine dependence Current Visit: No Status: Chronic Plan: he usually does not need nicotine replacement. As he denies smoking as the cause of this admission will take him at his word Qualifiers: Nicotine product type: cigarettes Discharge Plan: Home Plan to discharge in: Greater than 2 days - Code Status/Comfort Care Code Status Assessed: No Physician Review: Patient Assessed, Agree with Above Assessment and Plan Critical Care: No Time Spent Managing PTS Care (In Minutes): 20
[2022-01-29] MEDS: CLOPIDOGREL 75 MG TABLET PO SCH (08:45)
[2022-01-29] MEDS: ASPIRIN EC 81 MG TAB PO SCH (08:45)
[2022-01-29] MEDS: AZITHROMYCIN 250 MG TAB PO SCH (08:45)
[2022-01-29] MEDS: carvediloL 6.25 MG TAB PO SCH ×3 (08:45→21:10)
[2022-01-29] MEDS: ACETYLCYST 20% 800 MG/4 ML VIAL PO SCH (08:46)
[2022-01-29] MEDS ORDERED: dexAMETHasone 4 MG/ML VIAL IV SCH (09:00)
--- NOTE | 2022-01-29 10:34 | P.PN ---
Subjective Date of Service: 01/29/22 Primary Care Provider: Dr. Leslie Chief Complaint: Respiratory distress Subjective: Improving (Patient is doing better and normal flow in the ICU his shortness of breath has improved denies any chest pain) Review of Systems General: Weakness Respiratory: Shortness of Breath Physical Examination - Vital Signs Temperature: 98.1 F Blood Pressure: 150/76 Pulse: 69 Respirations: 13 Pulse Ox (%): 97 - Physical Exam General: Alert, In no apparent distress, Oriented x3 Respiratory: Diminished Cardiovascular: No edema, Regular rate/rhythm Assessment And Plan - Current Problems (Diagnosis) (1) Respiratory distress Current Visit: Yes Status: Acute Plan: Patient has improved breathing has gotten better scheduled for a cardiac cath on Tuesday renal function is stable DC Zithromax most likely he is having some cardiac issues changed to p.o. dexamethasone patient is on room air is not requiring oxygen apparently had an episode of V. tach Physician Review: Patient Assessed, Agree with Above Assessment and Plan
[2022-01-29] MEDS: ENOXAPARIN 30 MG/0.3 ML SQ SCH (16:59)
[2022-01-29] MEDS: ATORVASTATIN 20 MG TAB PO SCH (20:04)
[2022-01-29] MEDS ORDERED: MORPHINE 4 MG/ML SYR IV ONE (20:51)
[2022-01-29] MEDS ORDERED: MORPHINE 4 MG/ML SYR ONE (21:02)
[2022-01-30] MEDS: LEVALBUTEROL 0.63 MG/3 ML NEB NEB SCH ×4 (02:00→19:35)
[2022-01-30] MEDS: IPRATROPIUM BROM 0.5MG/2.5ML IH SCH ×4 (02:00→19:35)
[2022-01-30] MEDS: PANTOPRAZOLE 40MG TABLET PO SCH (05:34)
[2022-01-30 06:00] VITALS: BMI 27.3
[2022-01-30 06:30] LABS: Absolute Lymphocytes (CBC) 3.1 K/uL (0.7-4.9); Hematocrit 38.5 % (39.6-49.0); Lymphocytes % 15.5 % (15.3-44.8); MCV 90.6 fL (80-100); RBC Red Blood Cell Count 4.25 M/uL (4.33-5.43)
[2022-01-30 06:38] LABS: Albumin 2.3 g/dL (3.4-5.0); Bilirubin Total 0.4 mg/dL (0.2-1.0); Potassium 5.3 mmol/L (3.5-5.1); Protein, Total 5.1 g/dL (6.4-8.2)
[2022-01-30] MEDS: carvediloL 6.25 MG TAB PO SCH ×3 (07:26→19:51)
[2022-01-30 08:05] LABS: Blood Morphology Comment NOT SEEN (NOT SEEN); Platelet Estimate ADEQ
[2022-01-30] MEDS: CLOPIDOGREL 75 MG TABLET PO SCH (08:25)
[2022-01-30] MEDS: ASPIRIN EC 81 MG TAB PO SCH (08:26)
[2022-01-30] MEDS: dexAMETHasone 4 MG TAB PO SCH (08:26)
--- NOTE | 2022-01-30 10:29 | PN ---
The patient was admitted on 01/26/2022 with congestive heart failure, COPD. He has had a history of CAD and stent in the past. He had a stress test that could not be completed because of shortness of breath and short runs of ventricular tachycardia. He has chronic diastolic congestive heart failure. He has significant renal insufficiency. We had decided to be conservative as far as the catheteriz ation is concerned because of the renal insufficiency. Echocardiogram showed an ejection fraction of 50%. He has been in the ICU. Today, his blood pressure is 116/67, his pulse is 51. The respirator y rate is normal. He is afebrile, and his last glucose was 195. O2 saturation on room air is 93%. His creatinine has improved to 1.66 a white count. His present medical regimen includes as pirin, Lipitor, antibiotics, Plavix, Lovenox, inhalers, carvedilol, steroids as well as pantoprazole. I think Mr. Chow deserves to have a heart catheterization to rule out coronary artery disease and s tent restenosis. I will plan to do that on Tuesday, assuming his kidney function stays stable. I chase l discuss the case further with Dr. Leslie. SHELTON/ARTURO Voice ID: [id number] Report ID: [id number]
--- NOTE | 2022-01-30 12:12 | P.PN ---
Subjective Date of Service: 01/30/22 Primary Care Provider: Dr. Leslie Chief Complaint: Respiratory distress Subjective: Improving Review of Systems 10-point ROS is otherwise unremarkable Physical Examination - Vital Signs Temperature: 97.7 F Blood Pressure: 128/67 Pulse: 73 Respirations: 21 Pulse Ox (%): 100 - Physical Exam General: Alert, In no apparent distress HEENT: Atraumatic, PERRLA, EOMI Neck: Supple, JVD not distended Respiratory: Clear to auscultation bilaterally, Normal air movement Cardiovascular: Regular rate/rhythm, Normal S1 S2 Gastrointestinal: Normal bowel sounds, No tenderness Musculoskeletal: No tenderness Integumentary: No rashes Neurological: Normal speech, Normal tone, Normal affect Lymphatics: No axilla or inguinal lymphadenopathy Assessment And Plan - Current Problems (Diagnosis) (1) Chest pain Current Visit: Yes Status: Acute Plan: continue troponins. He had an echocardiogram done 3 months ago. hypokinetic movement but normal ejection fraction. Will consult Dr. Turner 8.6 Plans for cath on Tuesday Qualifiers: Chest pain type: chest pain on breathing Qualified Code(s): R07.1 - Chest pain on breathing; R07.81 - Pleurodynia (2) CKD (chronic kidney disease) stage 3, GFR 30-59 ml/min Current Visit: No Status: Chronic Plan: will start him on gentle fluids and monitor his creatine 01/[address] Vargas Qualifiers: Chronic kidney disease stage 3 subtype: stage 3b (GFR 30-44) Qualified Code(s): N18.32 - Chronic kidney disease, stage 3b (3) COPD exacerbation Current Visit: No Status: Acute Plan: continue steroids and breathing treatment. He needs the daliresp. Has agreed to pay for oxygen. He is normal on room air at this point. However when he has exacerbations the patient desaturates. (4) HTN (hypertension) Current Visit: No Status: Chronic Plan: will continue his home meds and adjust as needed Qualifiers: Hypertension type: primary hypertension (5) Nicotine dependence Current Visit: No Status: Chronic Plan: he usually does not need nicotine replacement. As he denies smoking as the cause of this admission will take him at his word Qualifiers: Nicotine product type: cigarettes Discharge Plan: Home Plan to discharge in: 24 Hours - Code Status/Comfort Care Code Status Assessed: No Physician Review: Patient Assessed, Agree with Above Assessment and Plan Critical Care: No Time Spent Managing PTS Care (In Minutes): 20
[2022-01-30] MEDS ORDERED: SOD POLYSTYREN SUL 15 GM/60 ML UCUP PO ONE (16:48)
[2022-01-30] MEDS: ENOXAPARIN 30 MG/0.3 ML SQ SCH (17:21)
[2022-01-30] MEDS: ATORVASTATIN 20 MG TAB PO SCH (19:51)
[2022-01-31] MEDS: IPRATROPIUM BROM 0.5MG/2.5ML IH SCH ×4 (01:25→20:35)
[2022-01-31] MEDS: LEVALBUTEROL 0.63 MG/3 ML NEB NEB SCH ×4 (01:25→20:35)
[2022-01-31] MEDS: PANTOPRAZOLE 40MG TABLET PO SCH (05:51)
[2022-01-31 06:26] LABS: Hematocrit 40.3 % (39.6-49.0); Lymphocytes % 22.8 % (15.3-44.8); MCV 90.5 fL (80-100); MPV 8.1 fL (7.6-11.3); RBC Red Blood Cell Count 4.45 M/uL (4.33-5.43)
[2022-01-31 06:41] LABS: Albumin 2.5 g/dL (3.4-5.0); Bilirubin Total 0.5 mg/dL (0.2-1.0); Potassium 4.8 mmol/L (3.5-5.1); Protein, Total 5.3 g/dL (6.4-8.2)
--- NOTE | 2022-01-31 08:30 | P.PN ---
Date of Service: 01/31/22 Vital Signs Temp Pulse Resp BP Pulse Ox 97.5 F 50 12 143/70 H 96 01/31/22 04:00 01/31/22 04:00 01/31/22 04:00 01/31/22 04:00 01/30/22 20:00 Medications Aspirin (Aspirin Ec 81 Mg Tab) 81 mg PO DAILY [facility] Last Admin: 01/30/22 08:26 Dose: 81 mg Atorvastatin Calcium (Atorvastatin 20 Mg Tab) 20 mg PO BEDTIME [facility] Last Admin: 01/30/22 19:51 Dose: 20 mg Carvedilol (Carvedilol 6.25 Mg Tab) 6.25 mg PO BID [facility] Last Admin: 01/30/22 19:51 Dose: 6.25 mg Clopidogrel Bisulfate (Clopidogrel 75 Mg Tablet) 75 mg PO DAILY [facility] Last Admin: 01/30/22 08:25 Dose: 75 mg Dexamethasone (Dexamethasone 4 Mg Tab) 4 mg PO DAILY [facility] Last Admin: 01/30/22 08:26 Dose: 4 mg Enoxaparin Sodium (Enoxaparin 30 Mg/0.3 Ml) 30 mg SQ DAILY 5 PM [facility] Last Admin: 01/30/22 17:21 Dose: 30 mg Ipratropium [place] (Ipratropium Brom 0.5mg/2.5ml) 0.5 mg IH [id number] [facility] Last Admin: 01/31/22 01:25 Dose: 0.5 mg Levalbuterol HCl (Levalbuterol 0.63 Mg/3 Ml Neb) 0.63 mg NEB [id number] [facility] Last Admin: 01/31/22 01:25 Dose: 0.63 mg Pantoprazole Sodium ([facility]mg Tablet) [facility]; Protocol Last Admin: 01/31/22 05:51 Dose: 40 mg Assessment/ Plan: Nephrology No dyspnea No chest pain Good urine output No acute events overnight Vitals, medications, blood work and imaging reviewed in the chart. General: In no apparent distress, Oriented x3, Cooperative HEENT: Atraumatic Neck: Supple Respiratory: Clear to auscultation bilaterally Cardiovascular: No edema, Regular rate/rhythm Gastrointestinal: Soft and benign, Non-distended Musculoskeletal: No clubbing, No contractures Integumentary: No rashes, No cyanosis Neurological: Normal speech Blood work reviewed in the chart. Imagings Data: EXAM DESCRIPTION: Irais Single View01/27/2022 10:04 am CLINICAL HISTORY: Shortness of breath/tachycardia COMPARISON: January 25, 2022 FINDINGS: Moderate bilateral pulmonary opacities. Heart remains enlarged IMPRESSION: Moderate bilateral pulmonary opacities may represent pulmonary edema or pneumonia Conclusions/Impression: MEHREEN, improving CKD III -No NSAIDs Hyponatremia -Encourage nutrition Hyperkalemia -Monitor level HTN with CKD -Continue Coreg IFG A1C 6.3 -Wean steroids as tolerated -No sugar diet Moderate malnutrition -Encourage nutrition
[2022-01-31 08:31] LABS: Platelet Estimate ADEQ
[2022-01-31 08:32] LABS: Blood Morphology Comment NOT SEEN (NOT SEEN)
--- NOTE | 2022-01-31 08:43 | P.PN ---
Date of Service: 01/30/22 Vital Signs Temp Pulse Resp BP Pulse Ox 97.5 F 50 12 143/70 H 96 01/31/22 04:00 01/31/22 04:00 01/31/22 04:00 01/31/22 04:00 01/30/22 20:00 Medications Aspirin (Aspirin Ec 81 Mg Tab) 81 mg PO DAILY [facility] Last Admin: 01/30/22 08:26 Dose: 81 mg Atorvastatin Calcium (Atorvastatin 20 Mg Tab) 20 mg PO BEDTIME [facility] Last Admin: 01/30/22 19:51 Dose: 20 mg Carvedilol (Carvedilol 6.25 Mg Tab) 6.25 mg PO BID [facility] Last Admin: 01/30/22 19:51 Dose: 6.25 mg Clopidogrel Bisulfate (Clopidogrel 75 Mg Tablet) 75 mg PO DAILY [facility] Last Admin: 01/30/22 08:25 Dose: 75 mg Dexamethasone (Dexamethasone 4 Mg Tab) 4 mg PO DAILY [facility] Last Admin: 01/30/22 08:26 Dose: 4 mg Enoxaparin Sodium (Enoxaparin 30 Mg/0.3 Ml) 30 mg SQ DAILY 5 PM [facility] Last Admin: 01/30/22 17:21 Dose: 30 mg Ipratropium [place] (Ipratropium Brom 0.5mg/2.5ml) 0.5 mg IH [id number] [facility] Last Admin: 01/31/22 07:50 Dose: 0.5 mg Levalbuterol HCl (Levalbuterol 0.63 Mg/3 Ml Neb) 0.63 mg NEB [id number] [facility] Last Admin: 01/31/22 07:50 Dose: 0.63 mg Pantoprazole Sodium (Pant[facility]ole 40mg Tablet) [facility]; Protocol Last Admin: 01/31/22 05:51 Dose: 40 mg Assessment/ Plan: Nephrology No dyspnea No chest pain Good urine output Good appetite No acute events overnight Vitals, medications, blood work and imaging reviewed in the chart. General: In no apparent distress, Oriented x3, Cooperative HEENT: Atraumatic Neck: Supple Respiratory: Clear to auscultation bilaterally Cardiovascular: No edema, Regular rate/rhythm Gastrointestinal: Soft and benign, Non-distended Musculoskeletal: No clubbing, No contractures Integumentary: No rashes, No cyanosis Neurological: Normal speech Blood work reviewed in the chart. Imagings Data: EXAM DESCRIPTION: Irais Single View01/27/2022 10:04 am CLINICAL HISTORY: Shortness of breath/tachycardia COMPARISON: January 25, 2022 FINDINGS: Moderate bilateral pulmonary opacities. Heart remains enlarged IMPRESSION: Moderate bilateral pulmonary opacities may represent pulmonary edema or pneumonia Conclusions/Impression: MEHREEN, improving CKD III -No NSAIDs -Will coordinate Mucomyst and gently IVF with cardiac cath plans Hyponatremia -Encourage nutrition Hyperkalemia -Monitor level HTN with CKD -Continue Coreg IFG A1C 6.3 -Wean steroids as tolerated -No sugar diet Moderate malnutrition -Encourage nutrition Cigarette smoker with underlying vascular disease -Recommend tobacco cessation
[2022-01-31] MEDS: carvediloL 6.25 MG TAB PO SCH ×2 (09:00→21:00)
[2022-01-31] MEDS: CLOPIDOGREL 75 MG TABLET PO SCH (09:14)
[2022-01-31] MEDS: dexAMETHasone 4 MG TAB PO SCH (09:14)
[2022-01-31] MEDS: ASPIRIN EC 81 MG TAB PO SCH (09:14)
--- NOTE | 2022-01-31 10:51 | PN ---
Date of Progress Note: 01/31/2022 Mr. Chow had came in with COPD exacerbation, congestive heart failure, history of CAD in the past. H ad an abnormal stress test with ventricular tachycardia and hypotension requiring transfer into the [facility] a few days ago. Since then, he has been known to have an ejection fraction of 50%. We were hesit ant to do a heart catheterization because of initial creatinine of about 2.7. The last creatinine no w is about 1.56. He is doing well in general. He is on aspirin, Lipitor, antibiotics, Plavix, Loven ox, inhalers, carvedilol, and steroids as well as pantoprazole. We will for plan for left heart cath eterization on 02/01/2022. The patient understands the risk and the benefits of the procedure and he agrees to proceed. Case was discussed with Dr. Leslie. SHELTON/ARTURO Voice ID: [id number] Report ID: [id number]
--- NOTE | 2022-01-31 12:53 | P.PN ---
Subjective Date of Service: 01/31/22 Primary Care Provider: Dr. Leslie Chief Complaint: Respiratory distress Subjective: No new changes Review of Systems 10-point ROS is otherwise unremarkable Physical Examination - Vital Signs Temperature: 97.5 F Blood Pressure: 154/70 Pulse: 51 Respirations: 13 Pulse Ox (%): 100 - Physical Exam General: Alert, In no apparent distress HEENT: Atraumatic, PERRLA, EOMI Neck: Supple, JVD not distended Respiratory: Clear to auscultation bilaterally, Normal air movement Cardiovascular: Regular rate/rhythm, Normal S1 S2 Gastrointestinal: Normal bowel sounds, No tenderness Musculoskeletal: No tenderness Integumentary: No rashes Neurological: Normal speech, Normal tone, Normal affect Lymphatics: No axilla or inguinal lymphadenopathy Assessment And Plan - Current Problems (Diagnosis) (1) Chest pain Current Visit: Yes Status: Acute Plan: continue troponins. He had an echocardiogram done 3 months ago. hypokinetic movement but normal ejection fraction. Will consult Dr. Turner 8.7 Plans for cath on tomorrow Qualifiers: Chest pain type: chest pain on breathing Qualified Code(s): R07.1 - Chest pain on breathing; R07.81 - Pleurodynia (2) CKD (chronic kidney disease) stage 3, GFR 30-59 ml/min Current Visit: No Status: Chronic Plan: will start him on gentle fluids and monitor his creatine 8/7 Improving daily Qualifiers: Chronic kidney disease stage 3 subtype: stage 3b (GFR 30-44) Qualified Code(s): N18.32 - Chronic kidney disease, stage 3b (3) COPD exacerbation Current Visit: No Status: Acute Plan: continue steroids and breathing treatment. He needs the daliresp. Has agreed to pay for oxygen. He is normal on room air at this point. However when he has exacerbations the patient desaturates. (4) HTN (hypertension) Current Visit: No Status: Chronic Plan: will continue his home meds and adjust as needed Qualifiers: Hypertension type: primary hypertension (5) Nicotine dependence Current Visit: No Status: Chronic Plan: he usually does not need nicotine replacement. As he denies smoking as the cause of this admission will take him at his word Qualifiers: Nicotine product type: cigarettes Discharge Plan: Home Plan to discharge in: 24 Hours - Code Status/Comfort Care Code Status Assessed: No Physician Review: Patient Assessed, Agree with Above Assessment and Plan Critical Care: No Time Spent Managing PTS Care (In Minutes): 20
--- NOTE | 2022-01-31 14:12 | P.PN ---
Date of Service: 01/31/22 Vital Signs Temp Pulse Resp BP Pulse Ox 97.5 F 51 13 154/70 H 100 01/31/22 12:53 01/31/22 12:53 01/31/22 12:53 01/31/22 12:53 01/31/22 12:53 Medications Acetylcysteine (Acetylcyst 20% 800 Mg/4 Ml Vial) 600 mg PO BID [facility] Stop: 02/02/22 09:01 Aspirin (Aspirin Ec 81 Mg Tab) 81 mg PO DAILY [facility] Last Admin: 01/31/22 09:14 Dose: 81 mg Atorvastatin Calcium (Atorvastatin 20 Mg Tab) 20 mg PO BEDTIME [facility] Last Admin: 01/30/22 19:51 Dose: 20 mg Carvedilol (Carvedilol 6.25 Mg Tab) 6.25 mg PO BID [facility] Last Admin: 01/31/22 09:00 Dose: Not Given Clopidogrel Bisulfate (Clopidogrel 75 Mg Tablet) 75 mg PO DAILY [facility] Last Admin: 01/31/22 09:14 Dose: 75 mg Dexamethasone (Dexamethasone 4 Mg Tab) 4 mg PO DAILY [facility] Last Admin: 01/31/22 09:14 Dose: 4 mg Enoxaparin Sodium (Enoxaparin 30 Mg/0.3 Ml) 30 mg SQ DAILY 5 PM [facility] Last Admin: 01/30/22 17:21 Dose: 30 mg Sodium Chloride (Ns 1000 Ml Ivbag) 1,000 mls @ 50 mls/hr IV .Q20H [facility] Stop: 02/01/22 13:59 Ipratropium [place] (Ipratropium Brom 0.5mg/2.5ml) 0.5 mg IH [id number] [facility] Last Admin: 01/31/22 07:50 Dose: 0.5 mg Levalbuterol HCl (Levalbuterol 0.63 Mg/3 Ml Neb) 0.63 mg NEB [id number] [facility] Last Admin: 01/31/22 07:50 Dose: 0.63 mg Pantoprazole Sodium ([facility]mg [facility]t) [facility] Last Admin: 01/31/22 05:51 Dose: 40 mg Assessment/ Plan: Nephrology No dyspnea No chest pain Good urine output Good appetite Plan for cardiac cath tomorrow No acute events overnight Vitals, medications, blood work and imaging reviewed in the chart. General: In no apparent distress, Oriented x3, Cooperative HEENT: Atraumatic Neck: Supple Respiratory: Clear to auscultation bilaterally Cardiovascular: No edema, Regular rate/rhythm Gastrointestinal: Soft and benign, Non-distended Musculoskeletal: No clubbing, No contractures Integumentary: No rashes, No cyanosis Neurological: Normal speech Blood work reviewed in the chart. Imagings Data: EXAM DESCRIPTION: Irais Single View01/27/2022 10:04 am CLINICAL HISTORY: Shortness of breath/tachycardia COMPARISON: January 25, 2022 FINDINGS: Moderate bilateral pulmonary opacities. Heart remains enlarged IMPRESSION: Moderate bilateral pulmonary opacities may represent pulmonary edema or pneumonia Conclusions/Impression: MEHREEN, improving CKD III -No NSAIDs -Start Mucomyst and gentle IVF X1 liter Hyponatremia -Encourage nutrition Hyperkalemia -Monitor level HTN with CKD -Continue Coreg IFG A1C 6.3 -Wean steroids as tolerated -No sugar diet Moderate malnutrition -Encourage nutrition Cigarette smoker with underlying vascular disease -Recommend tobacco cessation
[2022-01-31] MEDS ORDERED: NA CHLORIDE 0.9% 1,000 ML IV SCH (18:00)
[2022-01-31] MEDS: ACETYLCYST 20% 800 MG/4 ML VIAL PO SCH (21:24)
[2022-01-31] MEDS: ATORVASTATIN 20 MG TAB PO SCH (21:25)
[2022-02-01] MEDS: IPRATROPIUM BROM 0.5MG/2.5ML IH SCH ×3 (01:40→14:10)
[2022-02-01] MEDS: LEVALBUTEROL 0.63 MG/3 ML NEB NEB SCH ×3 (01:40→14:10)
[2022-02-01] MEDS: carvediloL 6.25 MG TAB PO SCH (05:03)
[2022-02-01] MEDS: ACETYLCYST 20% 800 MG/4 ML VIAL PO SCH (05:04)
[2022-02-01] MEDS: ASPIRIN EC 81 MG TAB PO SCH (05:04)
[2022-02-01] MEDS: PANTOPRAZOLE 40MG TABLET PO SCH (05:04)
[2022-02-01] MEDS: CLOPIDOGREL 75 MG TABLET PO SCH (05:04)
[2022-02-01 05:28] LABS: Absolute Lymphocytes (CBC) 3.7 K/uL (0.7-4.9); Hematocrit 37.4 % (39.6-49.0); Lymphocytes % 20.1 % (15.3-44.8); MCV 89.4 fL (80-100); MPV 8.7 fL (7.6-11.3); RBC Red Blood Cell Count 4.19 M/uL (4.33-5.43)
[2022-02-01 05:30] LABS: Albumin 2.5 g/dL (3.4-5.0); Bilirubin Total 0.5 mg/dL (0.2-1.0); Potassium 4.5 mmol/L (3.5-5.1); Protein, Total 5.3 g/dL (6.4-8.2)
[2022-02-01] MEDS ORDERED: NA CHLORIDE 0.9% 0 ML IV ONE (07:39)
[2022-02-01] MEDS ORDERED: MIDAZOLAM HCL 2 MG/2 ML INJ ONE (07:39)
[2022-02-01] MEDS ORDERED: ATROPINE SULF 1 MG/10 ML SYR IV ONE (07:39)
[2022-02-01] MEDS ORDERED: FENTANYL CITR 100 MCG/2 ML ONE (07:39)
[2022-02-01] MEDS ORDERED: LIDOCAINE 1% MPF 5 ML VIAL ONE (07:41)
[2022-02-01] MEDS ORDERED: HEPA 1000U/500MLS 2,000 UNIT/1,000 ML BAG IV ONE (08:53)
[2022-02-01] MEDS: dexAMETHasone 4 MG TAB PO SCH (10:39)
--- NOTE | 2022-02-01 11:25 | P.PN ---
Date of Service: 02/01/22 Vital Signs Temp Pulse Resp BP Pulse Ox 96.7 F L 52 16 161/72 H 97 02/01/22 04:00 02/01/22 05:03 02/01/22 04:00 02/01/22 05:03 02/01/22 04:00 Medications Acetylcysteine (Acetylcyst 20% 800 Mg/4 Ml Vial) 600 mg PO BID [facility] Stop: 02/02/22 09:01 Last Admin: 02/01/22 05:04 Dose: 600 mg Aspirin (Aspirin Ec 81 Mg Tab) 81 mg PO DAILY [facility] Last Admin: 02/01/22 05:04 Dose: 81 mg Atorvastatin Calcium (Atorvastatin 20 Mg Tab) 20 mg PO BEDTIME [facility] Last Admin: 01/31/22 21:25 Dose: 20 mg Carvedilol (Carvedilol 6.25 Mg Tab) 6.25 mg PO BID [facility] Last Admin: 02/01/22 05:03 Dose: 6.25 mg Clopidogrel Bisulfate (Clopidogrel 75 Mg Tablet) 75 mg PO DAILY [facility] Last Admin: 02/01/22 05:04 Dose: 75 mg Dexamethasone (Dexamethasone 4 Mg Tab) 4 mg PO DAILY [facility] Last Admin: 02/01/22 10:39 Dose: 4 mg Enoxaparin Sodium (Enoxaparin 30 Mg/0.3 Ml) 30 mg SQ DAILY 5 PM [facility] Last Admin: 01/30/22 17:21 Dose: 30 mg Sodium Chloride (Ns 1000 Ml Ivbag) 1,000 mls @ 50 mls/hr IV .Q20H [facility] Stop: 02/01/22 13:59 Last Admin: 01/31/22 17:32 Dose: 1,000 mls Ipratropium [place] (Ipratropium Brom 0.5mg/2.5ml) 0.5 mg IH [id number] [facility] Last Admin: 02/01/22 08:30 Dose: Not Given Levalbuterol HCl (Levalbuterol 0.63 Mg/3 Ml Neb) 0.63 mg NEB [id number] [facility] Last Admin: 02/01/22 08:30 Dose: Not Given Pantoprazole Sodium (Pantoprazole 40mg Tablet) [facility] Last Admin: 02/01/22 05:04 Dose: 40 mg Assessment/ Plan: Nephrology No dyspnea No chest pain Good urine output Good appetite Cardiac cath this morning; seen and examined post cath in the ICU No acute events overnight Vitals, medications, blood work and imaging reviewed in the chart. General: In no apparent distress, Oriented x3, Cooperative HEENT: Atraumatic Neck: Supple Respiratory: Clear to auscultation bilaterally Cardiovascular: No edema, Regular rate/rhythm Gastrointestinal: Soft and benign, Non-distended Musculoskeletal: No clubbing, No contractures Integumentary: No rashes, No cyanosis Neurological: Normal speech Blood work reviewed in the chart. Imagings Data: EXAM DESCRIPTION: Irais Single View01/27/2022 10:04 am CLINICAL HISTORY: Shortness of breath/tachycardia COMPARISON: January 25, 2022 FINDINGS: Moderate bilateral pulmonary opacities. Heart remains enlarged IMPRESSION: Moderate bilateral pulmonary opacities may represent pulmonary edema or pneumonia Conclusions/Impression: MEHREEN, improving CKD III -No NSAIDs -Advised pt and nurse to maintain good urine output today to flush IV contrast Hyponatremia, stable -Encourage nutrition Hyperkalemia, improving -Monitor level HTN with CKD -Continue Coreg IFG A1C 6.3 -Wean steroids as tolerated -No sugar diet Moderate malnutrition -Encourage nutrition Cigarette smoker with underlying vascular disease -Recommend tobacco cessation
[2022-02-01] MEDS ORDERED: ACETAMINOPHEN 325 MG TABLET PO PRN (14:00)
[2022-02-01] MEDS ORDERED: NITROGLYCERIN 0.4 MG/TAB SL PRN (14:00)
--- NOTE | 2022-02-01 14:31 | P.DS ---
Admission Date: 01/26/22 Discharge Date: 02/01/22 Primary Care Provider: Dr. Leslie Disposition: ROUTINE DISCHARGE Discharge Condition: GOOD Reason for Admission: Respiratory distress - Problems (1) Chest pain Current Visit: Yes Status: Acute Qualifiers: Chest pain type: chest pain on breathing Qualified Code(s): R07.1 - Chest pain on breathing; R07.81 - Pleurodynia (2) CKD (chronic kidney disease) stage 3, GFR 30-59 ml/min Current Visit: No Status: Chronic Qualifiers: Chronic kidney disease stage 3 subtype: stage 3b (GFR 30-44) Qualified Code(s): N18.32 - Chronic kidney disease, stage 3b (3) COPD exacerbation Current Visit: No Status: Acute (4) HTN (hypertension) Current Visit: No Status: Chronic Qualifiers: Hypertension type: primary hypertension (5) Nicotine dependence Current Visit: No Status: Chronic Qualifiers: Nicotine product type: cigarettes Brief History of Present Illness: Patient of mine with a history of copd, nicotine dependence, cad, ckd with a baseline creatine of 2.1 He went home from the hospital yesterday. Went outside and when he came back in was sob. Had not picked up the oxygen or meds we had perscribed on discharge. Possible he smoked however he denies this. Has been a past reason for his frequent readmission. When he got back to the ER was found to have an elevated troponin. Repeat troponin was trending upwards. As he has a history of cad we decided to keep him here Hospital Course: Patient was doing well. His breathing was normal. Had a stress test for the elevated troponins. The patient became very diaphoretic after the stress test. He had a cath this morning. Showed old occlusions. However nothing new to stent. Will switch him amlodipine to imdur. Follow up in the office with me and Dr. Turner Vital Signs/Physical Exam: Temp Pulse Resp BP Pulse Ox 97.1 F 64 22 H 149/69 H 100 02/01/22 12:00 02/01/22 13:00 02/01/22 13:00 02/01/22 13:00 02/01/22 13:00 General: Alert, In no apparent distress HEENT: Atraumatic, PERRLA, EOMI Neck: Supple, JVD not distended Respiratory: Clear to auscultation bilaterally, Normal air movement Cardiovascular: Regular rate/rhythm, Normal S1 S2 Gastrointestinal: Normal bowel sounds, No tenderness Musculoskeletal: No tenderness Integumentary: No rashes Neurological: Normal speech, Normal tone, Normal affect Lymphatics: No axilla or inguinal lymphadenopathy Laboratory Data at Discharge: WBC 18.5 K/uL (4.3-10.9) H 02/01/22 04:32 Hgb 12.8 g/dL (13.6-17.9) L 02/01/22 04:32 Hct 37.4 % (39.6-49.0) L 02/01/22 04:32 Plt Count 189 K/uL (152-406) 02/01/22 04:32 PT 10.2 SECONDS (9.5-12.5) 01/25/22 19:40 INR 0.93 01/25/22 19:40 Sodium 136 mmol/L (136-145) 02/01/22 04:32 Potassium 4.5 mmol/L (3.5-5.1) 02/01/22 04:32 BUN 50 mg/dL (7-18) H 02/01/22 04:32 Creatinine 1.55 mg/dL (0.55-1.3) H 02/01/22 04:32 Glucose 115 mg/dL (74-106) H 02/01/22 04:32 Uric Acid 9.0 mg/dL (3.5-7.2) H 01/29/22 04:51 Phosphorus 3.4 mg/dL (2.5-4.9) 01/29/22 04:51 Magnesium 2.3 mg/dL (1.8-2.4) 01/30/22 06:04 Total Bilirubin 0.5 mg/dL (0.2-1.0) 02/01/22 04:32 AST 19 U/L (15-37) 02/01/22 04:32 ALT 29 U/L (12-78) 02/01/22 04:32 Alkaline Phosphatase 71 U/L (45-117) 02/01/22 04:32 Home Medications: Furosemide 40 mg PO DAILY 01/10/22 carvediloL [Carvedilol] 6.25 mg PO BID 6AM 6PM 01/10/22 lisinopriL [Lisinopril] 40 mg PO DAILY 01/10/22 Levofloxacin [Levaquin] 500 mg PO DAILY 7 Days #7 tab 01/25/22 Prednisone [Sterapred Ds] 10 mg PO BID 15 Days #35 01/25/22 Roflumilast [Daliresp] 500 mcg PO DAILY 30 Days #30 tab 01/25/22 Isosorbide Mononitrate [Isosorbide Mononitrate ER] 30 mg PO DAILY 90 Days #90 tab 02/01/22 New Medications: Isosorbide Mononitrate [Isosorbide Mononitrate ER] 30 mg PO DAILY 90 Days #90 tab Diet: AHA Activity: Ad angélica Followup: Joesph Leslie MD [ACTIVE - CAN ADMIT] - 1 Week Irvin Turner MD [ACTIVE - CAN ADMIT] - 1-2 Weeks Physician Review: Patient Assessed, Agree with Above Assessment and Plan Time spent managing pt's care (in minutes): 30
[2022-02-01 15:05] VITALS: O2SAT 100
[2022-02-01 17:10] VITALS: BP 136/69
[2022-02-01 19:16] VITALS: TEMP 97.6
--- NOTE | 2022-02-01 20:08 | OP ---
Date of Procedure: 02/01/2022 Surgeon: Irvin Turner MD Radioisotope Technologist: Ms. Lacey Renner. The patient admitted to Dr. Leslie on 01/26/2022 with respiratory failure, COPD exacerbation, had an a bnormal stress test, brought to the senior cytogenetics laboratory director today as an inpatient on 02/01/2022. His kidney functio n has improved. His last creatinine is 1.5. In the senior cytogenetics laboratory director, he was prepped and draped in routine s terile fashion. He underwent a left heart catheterization, selective coronary arteriogram, common fe moral artery angiogram. He was given Versed and fentanyl for sedation. A 6-Maltese sheath was introd uced in the right common femoral artery successfully using 10 cc of Xylocaine and the Seldinger techn ique. Angiography there was normal. Angio-Seal was used to close the case. Elbert catheter left a nd right were used to cannulate the left main and right main respectively. The left main was normal. LAD has some diffuse plaquing. He had a patent stent in the middle of it. There was a very large ramus, small circumflex with minimal disease. The ramus, LAD and circumflex get collaterals to the P DA and the posterolateral branches of the RCA. The RCA was completely occluded. A 6-Maltese sheath a nd catheters were used. Anesthesia: Total conscious sedation 45 minutes. Complications: None. Blood Loss: 5 mL. Postoperative Diagnosis: Severe coronary artery disease. Plan: Plan is for medical therapy. SHELTON/ARTURO Voice ID: [id number] Report ID: [id number]
== END 2022-02-01 17:23 | disposition home or self-care (01) | DRG 204 ==
LOC: ER 19:24 → ERHOLD 01-26 05:01 → 2ND 01-26 21:34 → 3RD-ICU 01-27 10:54
PROVIDERS: ADMIT Internal Medicine; ATTEND Internal Medicine
PROC: B2011ZZ Plain Radiography of Multiple Coronary Arteries using Low Osmolar Contrast (ICD-10-PCS; principal; 2022-02-01)
DX: R07.1 Chest pain on breathing (principal); J44.1 Chronic obstructive pulmonary disease with (acute) exacerbation; E44.0 Moderate protein-calorie malnutrition; N17.9 Acute kidney failure, unspecified; E87.1 Hypo-osmolality and hyponatremia; I13.0 Hypertensive heart and chronic kidney disease with heart failure and stage 1 through stage 4 chronic kidney disease, or unspecified chronic kidney disease; I50.32 Chronic diastolic (congestive) heart failure; I24.8 Other forms of acute ischemic heart disease; I47.2 Ventricular tachycardia; R77.8 Other specified abnormalities of plasma proteins; N18.32 Chronic kidney disease, stage 3b; R06.03 Acute respiratory distress; E87.5 Hyperkalemia; I25.10 Atherosclerotic heart disease of native coronary artery without angina pectoris; Z68.27 Body mass index [BMI] 27.0-27.9, adult; F17.210 Nicotine dependence, cigarettes, uncomplicated; I25.82 Chronic total occlusion of coronary artery; Z95.5 Presence of coronary angioplasty implant and graft; Z91.19 Patient's noncompliance with other medical treatment and regimen; I25.2 Old myocardial infarction; Z20.822 Contact with and (suspected) exposure to COVID-19
CPT/HCPCS: 36415; 71045; 80048; 80053; 81001; 82570; 82947; 83036; 83735; 83880; 84100; 84132; 84156; 84484; 84550; 85025; 85610; 87086; 87088; 93005; 93017; 93306; 93454; 94002; 94003; 94640; 96372; 96374; 99285; C1760; C1893; G0269; J0583; J1100; J1644; J1650; J1940; J2250; J2270; J2785; J3010; J7030; J8540; U0003

== ENCOUNTER 2022-02-03 16:13 | Inpatient (IN) | payer MEDICARE ==
--- OUTSIDE RECORDS SUMMARY | 2022-02-03 16:16 | XMS REPORT | Continuity of Care Document ---
:1950 Author Organization [facility] t Address 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 Asbestos Asbestos Problem Active [facility] exposure exposure Physic i ans Loculated Loculated Problem Active [facility] pleural pleural Physici effusion effusion ans Centrilobu Centrilobu Problem Active U T lar lar Physici emphysema emphysema ans No known No known Disease Unive rs active active ity of problems problems [facility] Allergies, Adverse Reactions, Alerts Allergy Allergy Status Severity Reaction(s) Onset Inactive Treating Comm ents Source Name Type Date Date Clinician NO KNOWN Drug Active Univers ALLERGIE Class ity of S [facility] NO KNOWN Allergy Active [facility] ALLERGIE S Social History Social Habit Start Date Stop Date Quantity Comments Source Exposure to Yes [facility] SARS-CoV-2 (event) Medica l Branch Sex Assigned At [birth year] [facility] 00:00:00 00:00:00 Medical Branch Smoking Status Start Date Stop Date Source Smokes tobacco daily (finding) [facility] Physicians Unknown if ever smoked [facility] Medications Ordered Filled Start Stop Current Ordering Indication Dosage Frequency Signature Comments Components Source Medication Medication Date Date Medication? Clinician (SIG) Name Name lisinopriL Yes [id number] 10mg Take 1 Univers 10 mg 4-17 tablet by ity of tablet 00:00: mouth at [place] 00 bedtime. Medical Branch metoprolol Yes [id number] 25mg Take 1 Univers tartrate 25 4-17 tablet by ity of mg tablet 00:00: mouth 2 [place] 00 (two) Medical times Branch daily. Spiriva [...] 2021-10-11 181 mm[Hg] University of pressure 10:44:00 [facility] Diastolic blood 2021-10-11 70 mm[Hg] Mack o f pressure 10:44:00 [facility] Heart rate 2021-10-11 61 /min [facility] 10:44:00 [facility] Body temperature 2021-10-11 35.94 Leni [facility] 10:44:00 [facility] Respiratory rate 2021-10-11 20 /min [facility] 10:44:00 [facility] Body height 2021-10-11 182.9 cm [facility] 10:44:00 [facility] Body weight 2021-10-11 70.308 kg [facility] 10:44:00 [facility] BMI 2021-10-11 21.02 kg/m2 [facility] 10:44:00 [facility] Oxygen saturation 2021-10-11 97 /min [facility] in Arterial blood 10:44:00 [facility] by Pulse oximetry Branch Systolic blood 2020-04-16 141 mm[Hg] Location: [place] Physicia ns pressure 07:34:00 Position: Sitting Diastolic blood 2020-04-16 60 mm[Hg] Location: LUE; [place] Physici ans pressure 07:34:00 Position: Sitting Weight 2020-04-16 173.125 [lb_av] [facility] 07:34:00 Body mass index 2020-04-16 22.23 kg/m2 [facility] (BMI) [Ratio] 07:34:00 Body temperature 2020-04-16 97.2 [degF] Method: [facility] Physicia ns 07:34:00 Tympanic Heart Rate 2020-04-16 59 /min Location: L [facility] 07:34:00 Radial; Quality: Normal O2 SAT 2020-04-16 95 % Source: [place] [facility] 07:34:00 Non-Rebreather Systolic blood 2020-04-07 137 mm[Hg] Location: RUE; [place] Physicia ns pressure 14:12:00 Position: Sitting Diastolic blood 2020-04-07 74 mm[Hg] Location: RUE; [place] Physici ans pressure 14:12:00 Position: Sitting Body [...] Procedure Date / Time Performed Performing Clinician [facility] e NOTICE OF PRIVACY 2021-10-11 10:30:05 Doctor Unassigned, No [facility] Name Medical Branch CONSENT/REFUSAL FOR 2021-10-11 10:27:09 Doctor Unassigned, No [facility] DIAGNOSIS AND Name Medical Branch TREATMENT PET CT Lung solitary 2020-04-07 00:00:00 [place] [facility] pulm nodule [id number] Plan of Care Planned Activity Planned Date Details Comments Source Diagnostic Test Pending 2020-04-07 00:00:[address] Lung solitary [facility] pulm nodule 78572 [code = 04906] Diagnostic Test Pending 2020-04-07 00:00:[address] Lung solitary [facility] pulm nodule 74728 [code = 83479] Encounters Start End Encounter Admission Attending Care Care Encounter Source Date/Time Date/Time Type Type Clinicians Facility Department ID 2022-01-08 2022-01-08 [facility] [id number] [facility] 07:10:00 07:10:00 0715 Medica l Group 2021-12-09 2021-12-09 Outpatient FAYE MILLER [facility] [id number] [facility] 00:00:00 00:00:00 MAHBOOB 2021-11-08 2021-11-12 Inpatient ER DAVIS, [facility] Medical ICU 5 [id number] [facility] 03:10:00 20:10:00 RICKIE 2021-10-11 2021-10-11 Emergency X [facility] ERT [id number] Univers 05:52:00 06:48:00 [facility] 2021-10-11 2021-10-11 Emergency [facility] [id number] Univers 05:52:00 06:48:00 [facility] [id number] ity [facility] [id number] [facility] [id number] [place] [address] Branch 2020-11-21 2020-11-21 [facility] [id number] [facility] 08:00:00 08:00:00 0528 Medica l Group 2020-05-05 2020-05-[address] [facility]UL [id number] [facility] 13:21:00 15:55:00 PASTORA 2020-04-15 2020-04-15 DOLLY [facility] [id number] [place] 14:00:00 14:00:00 t; Carlos DESIR [facility] Derick Will M.D. Byars 2020-04-07 2020-04-07 DOLLY Mai Pulmonary & 696 [id number] [place] 13:30:00 13:30:00 t; PASTORA LOPEZ Sleep Physi ci Carlos GUILLORY M.D. Results Test Description Test Time Test Comments Results Result Comments Source BLOOD CULTURE 2021-11-13 07:00:32 Test Item Value Reference Range Interpretation Comme nts CULTURE (BEAKER) (test code = 1095) No growth in 5 days BLOOD [id number] 07:00:32 Test Item Value Reference Range Interpretation Comments CULTURE (BEAKER) (test No growth in 5 days code = 1095) POCT-GLUCOSE [id number] 16:01:13 Test Item Value Reference Range Interpretation Comments POC-GLUCOSE METER 136 mg/dL 70-110 H : TESTED A T [facility] [address] (BEAKER) (test code [address], = 1538) [place] [id number]: Marketing Copywriter/Techni brooklyn ID = [id number] for Cerv antes, Crystal POCT-GLUCOSE [id number] 11:30:14 Test Item Value Reference Range Interpretation Comments POC-GLUCOSE METER 112 mg/dL 70-110 H : TESTED A T [facility] [address] (BEAKER) (test code [address], = 1538) [place] [id number]: Marketing Copywriter/Techni brooklyn ID = [id number] for Cerv antes, Crystal POCT-GLUCOSE [id number] 06:45:43 Test Item Value Reference Range Interpretation Comments POC-GLUCOSE METER 150 mg/dL 70-110 H : TESTED A T [facility] [address] (BEAKER) (test code [address], = 1538) [place] [address]: Marketing Copywriter/Techni brooklyn ID = [id number] for Taina Poe [id number] 06:05:04 Test Item Value Reference Range Interpretation Comments MAGNESIUM (BEAKER) (test code = 2.2 mg/dL 1.5-3.0 627) Marketing Copywriter ID - [id number] ID - [id number] ID - OMIKUIHUY275Eiloruik ID - [id number] METABOLIC [id number] 06:04:06 Test Item Value Reference Range Interpretation [...] 1092) DATA TO CALCULA TE ESTIMATED GFR. Marketing Copywriter ID - [id number] ID - [id number] ID - [id number] ID - PPXGWXKZB872Oibwhjfb ID - RSVSDNNAA330Fmqnkpmw ID - HMGWOKAJC802Gzkegbmm ID - AWOYDPSPO686Mtoryoef ID - DCLTWNVGX239Uzhvaitz ID - ZMADIVGRX442Fiyqszwg ID - [id number] W/PLT COUNT & AUTO DIFFERENTIAL 2021-11-12 05:53:41 [...] PERCENT (BEAKER) (test code = 2801) POCT-GLUCOSE [id number] 21:50:33 Test Item Value Reference Range Interpretation Comments POC-GLUCOSE METER 173 mg/dL 70-110 H : TESTED A T [facility] [address] (BEAKER) (test code [facility] [address], = 1538) [place] [id number]: Marketing Copywriter/Techni brooklyn ID = [id number] for Taina Poe POCT-GLUCOSE [id number] 16:45:23 Test Item Value Reference Range Interpretation Comments POC-GLUCOSE METER 134 mg/dL 70-110 H : TESTED A T [facility] [address] (BEAKER) (test code [facility] [address], = 1538) [place] [id number]: Marketing Copywriter/Techni brooklyn ID = [id number] for Dapr johan, Heather POCT-GLUCOSE [id number] 11:45:21 Test Item Value Reference Range Interpretation Comments POC-GLUCOSE METER 125 mg/dL 70-110 H : TESTED A T [facility] [address] (BEAKER) ([facility] = [facility]38[facility] [place] [address]: Marketing Copywriter/Techni brooklyn ID = [id number] for Heather Ireland SPUTUM CULTURE + GRAM [id number] 08:54:21 Test Item Value Reference Range Interpretation Comments CULTURE (BEAKER) 4+ Normal respiratory (test code = 1095) luis eduardo present GRAM STAIN RESULT 1+ White blood cells (BEAKER) (test code = seen 1123) GRAM STAIN RESULT 1+ epithelial cells (BEAKER) (test code = 42362) GRAM STAIN RESULT 3+ Mixed luis eduardo (BEAKER) (test code = 02423) RAD, CHEST, 1 VIEW, NON [id number] 07:33:00Reason for exam:->PNA [facility] : 1950 Sex: MFINAL REPORT CHEST AP PORTABLE SEMIERECT Comparison exam: 11/09/2021 History provided: Pneumonia Heart size normal. Chronic pleural thickening at the right base. Lungs free of acute disease and vascularity normal. Signed: [facility] Verified Date/Time: 11/11/2021 07:33:28 Reading Location: [facility] Diagnostic Imaging Reading Room - [facility] 1.310.12 POCT-GLUCOSE [id number] 06:54:14 Test Item Value Reference Range Interpretation Comments POC-GLUCOSE METER 133 mg/dL 70-110 H : TESTED A T [facility] [address] (BEAKER) (test code [address], = 1538) [facility] 77 478: Marketing Copywriter/Techni brooklyn ID = [id number] for Taina Poe [id number] 04:53:42 Test Item Value Reference Range Interpretation Comments MAGNESIUM (BEAKER) (test code = 2.3 mg/dL 1.5-3.0 627) Marketing Copywriter ID - [id number] ID - [id number] ID - ooun73Uxpzwrzj ID - [id number] BASIC METABOLIC [id number] 04:52:53 Test Item Value Reference Range Interpretation [...] 1092) DATA TO CALCULA TE ESTIMATED GFR. Marketing Copywriter ID - [id number] ID - nelz32Byvfmkpc ID - ajqf75Xuntnnec ID - inkr49Fumweqfk ID - fdmt64Uxpiapbb ID - zret43Czoxkphd ID - vihx04Xzgulqie ID - inpc79Oipranvl ID - afap78Uzzjmnpb ID - [id number] W/PLT COUNT & AUTO [id number] 04:28:30 Test Item Value Reference Range Interpretation [...] PERCENT (BEAKER) (test code = 2801) POCT-GLUCOSE [id number] 20:59:54 Test Item Value Reference Range Interpretation Comments POC-GLUCOSE METER 148 mg/dL 70-110 H : TESTED A T [facility] [address] (BEAKER) (test code [address], = 1538) [facility] 77 478: Marketing Copywriter/Techni brooklyn ID = [id number] for Taina Poe POCT-GLUCOSE [id number] 15:51:00 Test Item Value Reference Range Interpretation Comments POC-GLUCOSE METER 156 mg/dL 70-110 H : TESTED A T [facility] [address] (BEAKER) (test code [address], = 1538) [facility] 77 478: Marketing Copywriter/Techni brooklyn ID = [id number] for Shazia Scott POCT-GLUCOSE [id number] 11:44:26 Test Item Value Reference Range Interpretation Comments POC-GLUCOSE METER 139 mg/dL 70-110 H : TESTED A T [address] [address] (BEAKER) (test code [address], = 1538) [facility] 77 478: Marketing Copywriter/Techni brooklyn ID = [id number] for Shazia Scott BASIC METABOLIC [id number] 07:34:29 Test Item Value Reference Range Interpretation [...] 1092) DATA TO CALCULA TE ESTIMATED GFR. Marketing Copywriter ID - DSENSONOperator ID - DSENSONOperator ID [...] (test code = 18 U/L 5-50 347) Marketing Copywriter ID - DSENSONOperator ID - DSENSONOperator ID - DSENSONOperator ID - DSENSONOperator ID - DSENSONOperator ID - DSENSONOperator ID - DSENSONOperator ID - DSENSONOperator ID - DSENSONOperator ID - DSENSONCBC W/PLT COUNT & AUTO [id number] 07:19:24 Test Item Value Reference Range Interpretation [...] PERCENT (BEAKER) (test code = 2801) POCT-GLUCOSE [id number] 07:05:35 Test Item Value Reference Range Interpretation Comments POC-GLUCOSE METER 129 mg/dL 70-110 H : TESTED A T [facility] 1317 ([facility]) (test code [facility], = 1538) [place] [address]: Marketing Copywriter/Techni brooklyn ID = [id number] for Anayeli ety, Ruth POCT-GLUCOSE [id number] 22:17:06 Test Item Value Reference Range Interpretation Comments POC-GLUCOSE METER 135 mg/dL 70-110 H : TESTED A T [facility] 1317 ([facility]) (test code [facility], = 1538) [place] [address]: Marketing Copywriter/Techni brooklyn ID = [id number] for Anayeli ety, Ruth POCT-GLUCOSE [id number] 16:21:48 Test Item Value Reference Range Interpretation Comments POC-GLUCOSE METER 178 mg/dL 70-110 H : Notified RN/MD: TESTED ([facility]) (test code AT [facility] [address] = 1538) [place] [address]: Marketing Copywriter/Techni brooklyn ID = [id number] for Alee Calderon HEPATITIS PANEL, [id number] 14:58:49 Test Item Value Reference Range Interpretation Comments HEPATITIS A IGM ANTIBODY (BEAKER) Nonreactive Nonreactive (test code = 498) HEPATITIS B CORE IGM ANTIBODY Nonreactive Nonreactive (BEAKER) (test code = 645) HEPATITIS C ANTIBODY (BEAKER) Nonreactive Nonreactive (test code = 367) HEPATITIS B SURFACE ANTIGEN (2) Nonreactive Nonreactive (BEAKER) (test code = 2585) Marketing Copywriter ID - DBOperator ID - DBPOCT-GLUCOSE [id number] 12:30:38 Test Item Value Reference Range Interpretation Comments POC-GLUCOSE METER 184 mg/dL 70-110 H : Notified RN/MD: TESTED (BEAKER) (test code AT [facility] [address] = 1538) [facility] [address]: Marketing Copywriter/Techni brooklyn ID = [id number] for Alec Bush VENOUS DOPPLER LEGS, [id number] 10:54:00Reason for exam:->DVT [facility] : 1950 Sex: [...] MDReport Verified Date/Time: 11/09/2021 10:54:12 Reading Location: [facility] Radiology Reading Room RAD, CHEST, 1 VIEW, NON [id number] 09:00:00 Reason for exam:->PNAShould this be performed at the bedside?->Yes [facility] : 1950 Sex: MFINAL [...] ChuMDReport Verified Date/Time: 11/09/2021 09:00:23 Reading Location: [facility] Radiology Reading Room POCT-GLUCOSE [id number] 07:33:54 Test Item Value Reference Range Interpretation Comments POC-GLUCOSE METER 156 mg/dL 70-110 H : Notified RN/MD: TESTED ([facility]) (test code AT [facility] [address] = 1538) [place] [address]: Marketing Copywriter/Techni brooklyn ID = [id number] for Francisco Javier Alec joyner [id number] 05:00:02 Test Item Value Reference Range Interpretation Comments PARTIAL THROMBOPLASTIN 111.6 seconds 23.0-35.0 H Berna l Information TIME (BEAKER) (test (Auto Ou tput) code = 760) HIV-1 ANTIGEN WITH HIV-1/2 [id number] 04:53:13 Test Item Value Reference Range Interpretation Comments HIV-1 ANTIGEN WITH HIV 1\T\2 Nonreactive Nonreactive ANTIBODY (2) (BEAKER) (test code = 2586) Marketing Copywriter ID - [id number] METABOLIC [id number] 04:38:36 Test Item Value Reference Range Interpretation [...] 1092) DATA TO CALCULA TE ESTIMATED GFR. Marketing Copywriter ID - [id number] ID - [id number] ID - LHMUUDQTJ679Yoxkguzv ID - KHQYABPRX548Sypdagwt ID - DGOQBVAMY638Dgejfvmn ID - VWIYUPWKI461Dcgwedhj ID - LQVIQOVSQ987Ttmvnrat ID - DAPLYZNWU589Zguykrll ID - AMWEKBIGZ149Tegjmwmb ID - [id number] FUNCTION [id number] 04:36:24 Test Item Value Reference Range Interpretation [...] (test code = 22 U/L 5-50 347) Marketing Copywriter ID - [id number] ID - [id number] ID - VKKBXJYVU764Pgivtlgi ID - DMIPMTVXG573Aoosnixz ID - IIWNXRSZX113Phhzdsfm ID - NDVQANJHQ720Pclklgom ID - [id number] ID - OJYLRPZII517Oppupvpl ID - DARQONAUR728Ptwyazui ID - [id number] [id number] 04:30:27 Test Item Value Reference Range Interpretation Comments HEMOGLOBIN A1C (BEAKER) (test code = 5.8 % 4.3-6.1 368) Marketing Copywriter ID - [id number] W/PLT COUNT & AUTO [id number] 04:17:15 Test Item Value Reference Range Interpretation [...] PERCENT (BEAKER) (test code = 2801) TROPONIN [id number] 01:16:05 Test Item Value Reference Range Interpretation [...] failure, acidosis, acute neurological disease, and persistent tachyarrhythmia.Marketing Copywriter ID - [id number]-EYEAOPI [id number] 20:56:12 Test Item Value Reference Range Interpretation Comments POC-GLUCOSE METER 169 mg/dL 70-110 H : Notified RN/MD: TESTED (BEAKER) (test code AT [address] = 1538) [facility] [address]: Marketing Copywriter/Techni brooklyn ID = [id number] for Dottie Collins [id number] 20:43:27 Test Item Value Reference Range Interpretation Comments PARTIAL THROMBOPLASTIN 43.3 seconds 23.0-35.0 H Final Information TIME (MARLENA) (test (Auto Ou tput) code = 760) [id number] 17:13:58 Test Item Value Reference Range Interpretation Comments GLUCOSE RANDOM (MARLENA) (test code 247 mg/dL 70-110 H = 652) Marketing Copywriter ID - DSENSONTROPONIN [id number] 17:03:16 Test Item Value Reference Range Interpretation [...] failure, acidosis, acute neurological disease, and persistent tachyarrhythmia.Marketing Copywriter ID - DSENSONLEGIONELLA ANTIGEN, [id number] 14:05:17 Test Item Value Reference Range Interpretation Comments L. PNEUMOPHILA Negative - see Negative fo r L. SEROGP 1 UR AG comment pneumophila (MAR[place]NA) (test code serogrou p 1 antigen, = 1156) suggesting no r ecent or current infe ction with this serog roup. Legionellosis c annot be ruled out si nce other serogroup s and species may cau se disease. U/S, RENAL, [id number] 14:05:00Reason for exam:->elevated creatine [facility] : 1950 Sex: MFINAL [...] MDReport Verified Date/Time: 11/08/2021 14:05:00 Reading Location: [address] Body Reading Room STREP PNEUMONIAE [id number] 14:04:46 Test Item Value Reference Range Interpretation [...] the detection limit of the test. TROPONIN [id number] 12:03:41 Test Item Value Reference Range Interpretation [...] failure, acidosis, acute neurological disease, and persistent tachyarrhythmia.Marketing Copywriter ID - DSENSONBASIC METABOLIC [id number] 11:54:31 Test Item Value Reference Range Interpretation [...] 1092) DATA TO CALCULA TE ESTIMATED GFR. Marketing Copywriter ID - DSENSONOperator ID - DSENSONOperator ID - DSENSONOperator ID - DSENSONOperator ID - DSENSONOperator ID - DSENSONOperator ID - DSENSONOperator ID - DSENSONOperator ID - DSENSONOperator ID - DSENSONOperator ID - DSENSONOperator ID - DSENSONOperator ID - [id number] 11:45:04 Test Item Value Reference Range Interpretation Comments PARTIAL THROMBOPLASTIN 44.4 seconds 23.0-35.0 H Final Information TIME (BEAKER) (test (Auto Ou tput) code = 760) POCT-GLUCOSE [id number] 11:43:30 Test Item Value Reference Range Interpretation Comments POC-GLUCOSE METER 141 mg/dL 70-110 H : Notified RN/MD: TESTED (BEAKER) (test code AT [address] = 1538) [facility] [address]: Marketing Copywriter/Techni brook[place] ID = [id number] for Francisco Javier Alec joyner PUL PERF IMAGING, [id number] 09:49:00Unlisted Reason for Exam - Click Yes and Enter Reason Below->No [facility] : 1950 Sex: MFINAL REPORT PROCEDURE: LUNG SCAN - perfusion only CPT CODE: 55789 INDICATION: Elevated D-dimer PROTOCOL: 5.8 mCi of [...] Verified Date/Time: 11/08/2021 09:49:42 CT, CHEST, WITHOUT [id number] 09:47:00Unlisted Reason for Exam - Click Yes and Enter Reason Below->No [facility] : 1950 Sex: [...] 08, 2021 Discussion: ET is above the oliiva. A feeding tube enters the stomach. Visualized [...] 11/08/2021 09:47:14 RAD, CHEST, 1 VIEW, NON [id number] 08:47:00Reason for exam:->ETT placementShould this be performed at the bedside?->Yes [facility] : 1950 Sex: MFINAL [...] Ou tput) code = 760) LACTIC ACID, [id number] 05:34:16 Test Item Value Reference Range Interpretation Comments LACTATE BLOOD 1.89 mmol/L See_Comment [Automated me ssage] VENOUS (2) (BEAKER) The syst em which (test code = 2872) generated this result transmitted ref erence range: 0.50-<2. 00. The reference range was not used to interpr et this result as normal/abnormal . Marketing Copywriter ID - LITOOperator ID - LITOOperator ID - LITOOperator ID - ROSALBA [id number] 05:31:10 Test Item Value Reference Range Interpretation Comments PROCALCITONIN (BEAKER) (test code 0.15 ng/mL <0.05 H = 3036) SEPSIS RISK (ng/mL)Low: 0.05-0.50Intermediate: 0.51-2.00High: >=2.01 URINALYSIS WITH MICROSCOPIC IF [id number] 05:13:27 Test Item Value Reference Range Interpretation [...] 463) SOURCE(BEAKER) (test code = 2795) URINALYSIS [id number] 05:13:21 Test Item Value Reference Range Interpretation Comments RBC UA-MANUAL (BEAKER) (test <5 /HPF code = 1659) WBC UA-MANUAL (BEAKER) (test None Seen /HPF code = 1661) BACTERIA (BEAKER) (test code = Occasional 517) SQUAMOUS EPITHELIAL MANUAL None Seen /HPF (BEAKER) (test code = 1663) HYALINE CASTS MANUAL (BEAKER) 0-5 /LPF (test code = 1665) TROPONIN [id number] 05:01:28 Test Item Value Reference Range Interpretation [...] failure, acidosis, acute neurological disease, and persistent tachyarrhythmia.Marketing Copywriter ID - LITOBASIC METABOLIC PANEL 2021-11-08 05:00:17 [...] 1092) DATA TO CALCULA TE ESTIMATED GFR. Marketing Copywriter ID - LITOOperator ID - LITOOperator ID - LITOOperator ID - LITOOperator ID - LITOOperator ID - LITOOperator ID - LITOOperator ID - LITOOperator ID - LITOOperator ID - LITOB-TYPE NATRIURETIC FACTOR (BNP)2021-11-08 05:00:11 Test Item Value Reference Range Interpretation Comments B-TYPE NATRIURETIC PEPTIDE (BEAKER) 480 pg/mL 0-100 H (test code = 700) Marketing Copywriter ID - LITOCBC W/PLT COUNT & AUTO [id number] 04:56:38 Test Item Value Reference Range Interpretation [...] H PERCENT (BEAKER) (test code = 2801) [id number] 04:53:09 Test Item Value Reference Range Interpretation Comments D-DIMER QUANTITATIVE 5.80 MG/L FEU <0.50 H Final Information (BEAKER) (test code = (Auto Output) 038) REGARDING D-DIMER RESULTS: The 98% NPV (Negative Predictive Value) for DVT/PE exclusion is 0.50 mg/LFEU as suggested by the dietitian chief and as approved by the FDA.PROTHROMBIN TIME/[id number] 04:52:30 Test Item Value Reference Range Interpretation Comments PROTIME (BEAKER) 11.0 seconds 9.3-12.0 Final Infor mation (test code = 759) (Auto Outp ut) INR (BEAKER) (test 1.00 See_Comment Final Inf ormation code = 370) (Auto Output) [Automated mess age] The system The Editorialist generated this result transmitted ref erence range: <=5.90. The reference range was not used to int erpret this result as normal/abnormal . RECOMMENDED COUMADIN/WARFARIN INR THERAPY RANGESSTANDARD DOSE: 2.0 - 3.0 Includes: PROPHYLAXIS for venous thrombosis, systemic embolization; TREATMENT for venous thrombosis and/or pulmonary embolus.HIGH RISK: Target INR is 2.5-3.5 for patients with mechanical heart valves.HEMOGLOBIN [id number] 04:51:27 Test Item Value Reference Range Interpretation Comments HEMOGLOBIN A1C (BEAKER) (test code = 5.7 % 4.3-6.1 368) Marketing Copywriter ID - LITOHEPATIC FUNCTION [id number] 04:50:07 Test Item Value Reference Range Interpretation [...] (test code = 31 U/L 5-50 347) Marketing Copywriter ID - LITOOperator ID - LITOOperator ID - LITOOperator ID - LITOOperator ID - LITOOperator ID - LITOOperator ID - [id number] 04:49:45 Test Item Value Reference Range Interpretation Comments MAGNESIUM (BEAKER) (test code = 2.8 mg/dL 1.5-3.0 627) Marketing Copywriter ID - LITOOperator ID - LITOOperator ID - LITOOperator ID - ROSALBA [id number] 04:46:46 Test Item Value Reference Range Interpretation Comments PHOSPHORUS (BEAKER) (test code = 4.8 mg/dL 2.5-4.5 H 604) Marketing Copywriter ID - LITOPOCT-GLUCOSE [id number] 04:11:36 Test Item Value Reference Range Interpretation Comments POC-GLUCOSE METER 156 mg/dL 70-110 H : TESTED A T SLSL 1317 (BEAKER) (test code [address], = 1538) [facility] 77 478: Marketing Copywriter/Techni [place] ID = [id number] for Real Lei RAD, ABDOMEN/KUB 1 VIEW [id number] 04:02:00Reason for exam:->NG tube placementL[facility]: [facility] : 1950 Sex: [...] on 204:02 AMRAD, CHEST, 1 VIEW, NON [id number] 03:57:00Reason for exam:->AHRFShould this be performed at the bedside?->Yes [facility] : 1950 Sex: MFINAL [...] contours. Additional findings: None. Signed: Harman Whaley MDRsaint francis [facility] & [facility] Verified Date/Time: 11/08/2021 03:57:41 BLOOD GAS, [id number] 03:54:11 Test Item Value Reference Range Interpretation [...]
[2022-02-03 16:46] LABS: Arterial Blood Carboxyhemoglob 0.8 % (0-1.5); Blood Gas Oxyhemoglobin 92.8 % (94-97); Blood O2 Saturation 94.9 % (92-98.5)
[2022-02-03 16:52] LABS: Absolute Lymphocytes (CBC) 8.7 K/uL (0.7-4.9); Hematocrit 41.1 % (39.6-49.0); Lymphocytes % 23.3 % (15.3-44.8); MCV 91.2 fL (80-100); MPV 8.4 fL (7.6-11.3)
[2022-02-03 16:54] LABS: Protime INR 0.96
[2022-02-03] MEDS ORDERED: FUROSEMIDE 40 MG/4 ML VIAL ONE (16:54)
--- NOTE | 2022-02-03 16:55 | ER ---
Nurse's Notes [facility] Name: Gabo Chow Sr Age: 71 yrs Sex: Male : 1950 Arrival Date: 02/03/2022 Time: 16:15 Bed 23 Private MD: Diagnosis: Acute respiratory distress, CHF, respiratory failure Presentation: 02/03 16:16 Chief complaint: EMS states: pt was sitting on the porch with his , starting tw2 getting short of breath and couldn't catch his break. was just released from ICU 2 days ago for difficulty breathing. was supposed to get stents but not sure why they didn't do that per spouse. we established an 18 g RIGHT wrist. pt was 94%RA but working hard to breathe. we placed him on NRB at 15L. Coronavirus screen: At this time, the client does not indicate any symptoms associated with coronavirus-19. Ebola Screen: Patient denies travel to an Ebola-affected area in the 21 days before illness onset. Initial Sepsis Screen: Does the patient meet any 2 criteria? RR > 20 per min. HR > 90 bpm. Does the patient have a suspected source of infection? Yes: Productive cough/pneumonia Other: SOB, hx copd, recent hospitalization. Risk Assessment: Do you want to hurt yourself or someone else? Patient reports no desire to harm self or others. Note provider at bedside at this time. Onset of symptoms was February 03, 2022. Care prior to arrival: Oxygen administered. via a non-rebreather mask. 16:16 Method Of Arrival: EMS: [facility] tw2 16:16 Acuity: ALLI 2 tw2 Triage Assessment: 16:16 General: Appears uncomfortable, Behavior is quiet. Pain: Denies pain. Neuro: Level of tw2 Consciousness is obeys commands, drowsy. Oriented to person. Respiratory: Reports shortness of breath Breath sounds with crackles Onset: The symptoms/episode began/occurred approx 1 hour ago, the patient has severe shortness of breath. Historical: - Allergies: 16:21 No Known Allergies; tw2 - PMHx: 16:21 CHF; COPD; Hypertension; Myocardial infarction; tw2 - PSHx: 16:21 Stented artery; tw2 - Immunization history:: Adult Immunizations. - Social history:: Smoking status: . Screenin:20 Abuse screen: Denies threats or abuse. Abuse screen: Denies threats or abuse. tw2 Nutritional screening: No deficits noted. Tuberculosis screening: No symptoms or risk factors identified. Fall Risk Secondary diagnosis (15 points) impaired mobility. Assessment: 16:16 Cardiovascular: Rhythm is sinus tachycardia. Respiratory: Airway is patent Respiratory tw2 effort is labored, shallow, Respiratory pattern is. 16:25 Reassessment: pt placed on BIPAP at this time. tw2 17:00 Reassessment: No changes from previously documented assessment. Patient and/or family tw2 updated on plan of care and expected duration. Pain level reassessed. 18:00 Reassessment: No changes from previously documented assessment. Patient and/or family tw2 updated on plan of care and expected duration. Pain level reassessed. 19:00 Reassessment: No changes from previously documented assessment. Patient and/or family tw2 updated on plan of care and expected duration. Pain level reassessed. Vital Signs: 16:16 BP 171 / 107; Pulse 139; Resp 26; Temp 98.1(TE); Pulse Ox 100% on Non-rebreather mask; tw2 Weight 79.38 kg (R); Height 6 ft. 0 in. (182.88 cm); 16:25 Pulse Ox 100% on BiPAP 14/5 50% r18; tw2 17:19 BP 156 / 102; Pulse 128; Resp 22; Pulse Ox 98% on BiPAP; tw2 18:00 BP 156 / 92; Pulse 133; Resp 25; Pulse Ox 95% on R/A; tw2 18:59 BP 148 / 88; Pulse 134; Resp 21; Pulse Ox 99% on R/A; tw2 16:16 Body Mass Index 23.73 (79.38 kg, 182.88 cm) tw2 ED Course: 16:15 Patient arrived in ED. sp3 16:15 Davey Chu MD is Attending Physician. sp3 16:15 Uma Moreno, RN is Primary Nurse. tw2 16:15 Bed in low position. Call light in reach. Side rails up X2. site monitor on. Pulse tw2 ox on. NIBP on. 16:21 Triage completed. tw2 16:21 Arm band placed on. tw2 16:49 BIPAP Sent. tw2 16:54 Joesph Leslie MD is Hospitalizing Provider. sp3 16:58 Chest Single View In Process Unspecified. EDMS 17:13 Blood Culture Adult (2) Sent. tw2 Administered Medications: 16:50 Drug: Lasix (furosemide) 40 mg Route: IVP; Site: right forearm; tw2 17:31 Follow up: Response: No adverse reaction tw2 17:41 Drug: Cefepime 1 grams Route: IVPB; Rate: 200 ml/hr; Infused Over: 30 mins; Site: right tw2 forearm; 18:15 Follow up: Response: No adverse reaction; IV Status: Completed infusion; IV Intake: tw2 100ml 18:15 Drug: vancoMYCIN 1 grams Route: IVPB; Infused Over: 2 hrs; Site: right forearm; tw2 Medication: 17:20 VIS not applicable for this client. tw2 Intake: 18:15 IV: 100ml; Total: 100ml. tw2 Outcome: 16:55 Decision to Hospitalize by Provider. sp3 22:34 Patient left the ED. bb Signatures: Dispatcher [employer] EDAsya Jackman RN RN bb Uma Moreno RN RN tw2 Davye Chu MD MD sp3
--- NOTE | 2022-02-03 16:56 | EDPHYS ---
Physician Documentation [facility] Name: Gabo Chow Sr Age: 71 yrs Sex: Male : 1950 Arrival Date: 02/03/2022 Time: 16:15 Bed 23 Private MD: ED Physician Davey Chu HPI: 02/03 16:48 This 71 yrs old Male presents to ER via EMS with complaints of Breathing Difficulty. sp3 16:48 71-year-old male with a history of extensive CHF, CAD, COPD, hypertension, multiple sp3 myocardial infarctions who was just discharged from the ICU 2 days ago who now presents again for severe dyspnea and shortness of breath via EMS. Patient had medication changes including stopping Lasix and increasing nitrates. He also has a baseline CKD. Patient is an extremis and cannot speak in more than 1-2 word sentences and was probably placed on BiPAP. Therefore remainder of history and all of ROS is limited. Further history also obtained from EMS and his family.. Historical: - Allergies: 16:21 No Known Allergies; tw2 - PMHx: 16:21 CHF; COPD; Hypertension; Myocardial infarction; tw2 - PSHx: 16:21 Stented artery; tw2 - Immunization history:: Adult Immunizations. - Social history:: Smoking status: . ROS: 16:50 Unable to obtain ROS due to patient distress. sp3 Exam: 16:50 Head/Face: Normocephalic, atraumatic. Eyes: Pupils equal round and reactive to light, sp3 extra-ocular motions intact. Lids and lashes normal. Conjunctiva and sclera are non-icteric and not injected. Cornea within normal limits. Periorbital areas with no swelling, redness, or edema. Neuro: Awake and alert, GCS 15, oriented to person, place, time, and situation. Cranial nerves II-XII grossly intact. Motor strength 5/5 in all extremities. Sensory grossly intact. Cerebellar exam normal. Normal gait. Psych: Awake, alert, with orientation to person, place and time. Behavior, mood, and affect are within normal limits. 16:50 Chest/axilla: Normal chest wall appearance and motion. Nontender with no deformity. No lesions are appreciated. 16:50 Constitutional: The patient appears alert, diaphoretic, in obvious distress, moderately distressed. 16:50 Cardiovascular: Rate: tachycardic. 16:50 ECG was reviewed by the Attending Physician. EKG demonstrates sinus tachycardia at 140 bpm with a left bundle branch block pattern. 16:50 Respiratory: Breath sounds: rales, decreased breath sounds. Vital Signs: 16:16 BP 171 / 107; Pulse 139; Resp 26; Temp 98.1(TE); Pulse Ox 100% on Non-rebreather mask; tw2 Weight 79.38 kg (R); Height 6 ft. 0 in. (182.88 cm); 16:25 Pulse Ox 100% on BiPAP 14/5 50% r18; tw2 17:19 BP 156 / 102; Pulse 128; Resp 22; Pulse Ox 98% on BiPAP; tw2 18:00 BP 156 / 92; Pulse 133; Resp 25; Pulse Ox 95% on R/A; tw2 18:59 BP 148 / 88; Pulse 134; Resp 21; Pulse Ox 99% on R/A; tw2 16:16 Body Mass Index 23.73 (79.38 kg, 182.88 cm) tw2 MDM: 16:52 Data reviewed: vital signs, nurses notes. ED course: Patient immediately placed on sp3 BiPAP upon arrival. Chest x-ray demonstrates worsening pulmonary edema with existing right pleural effusion. Venous blood gas demonstrates pH of 7.13, PCO2 of 72. Minute volume on BiPAP is greater than 12 L/min. We will continue to keep minute volume is high to decrease PCO2 and continue oxygenation support. Currently he is on FiO2 50% on the BiPAP. Laboratory values are pending. I discussed this with his primary physician Dr. Leslie who will be seeing him in the hospital and we will be admitting patient to the ICU. 1 dose of antibiotic will also be given cefepime 1 g IV. Given his CKD, remainder of doses can be added on tomorrow as preferred by his PCP. Lasix 40 mg IV was also given. No further immediate interventions indicated in the emergency department.. 16:55 Patient medically screened. sp3 18:40 ED course: Is improved. All laboratory values reviewed and given a BNP and chest x-ray, sp3 patient's respiratory status most likely attributed to CHF. Leukocytosis can also be attributed to his steroid use however antibiotics are still being given. Dr. Leslie is at bedside and has spoken to patient and family and has also written admission orders. Further care per inpatient team in the ICU.. 02/03 16:16 Order name: CBC with Diff; Complete Time: 18:39 [facility] 02/03 16:16 Order name: Magnesium; Complete Time: 18:39 3 02/03 16:16 Order name: NT PRO-BNP; Complete Time: 18:39 3 02/03 16:16 Order name: PT-INR; Complete Time: 17:18 [facility] 02/03 16:16 Order name: Troponin HS; Complete Time: 18:39 3 02/03 16:16 Order name: CMP; Complete Time: 18:39 3 02/03 16:16 Order name: Lactate; Complete Time: 17:18 [facility] 02/03 16:24 Order name: ABG; Complete Time: 17:18 [facility] 02/03 16:45 Order name: Blood Culture Adult (2) [facility] 02/03 17:50 Order name: CBC with Automated Diff [facility] 02/03 17:50 Order name: CBC with Automated Diff [facility] 02/03 17:50 Order name: CBC with Automated Diff [facility] 02/03 17:50 Order name: CBC with Automated Diff [facility] 02/03 17:50 Order name: Comprehensive Metabolic Panel [facility] 02/03 16:16 Order name: EKG; Complete Time: 16:19 [facility] 02/03 16:16 Order name: BIPAP [facility] 02/03 16:27 Order name: Chest Single View; Complete Time: 17:18 [facility] 02/03 17:50 Order name: CONS Physician Consult [facility] 02/03 17:50 Order name: 60g Consistent Carbohydrate (ADA 1800/2000) [facility] 02/03 17:50 Order name: Comprehensive Metabolic Panel [facility] 02/03 17:50 Order name: Comprehensive Metabolic Panel [facility] 02/03 17:50 Order name: Comprehensive Metabolic Panel [facility] 02/03 18:19 Order name: COVID-19 SARS RT PCR (Document "Date of Onset" if Symptomatic) 02/03 18:27 Order name: Manual Differential; Complete Time: 18:39 [facility] 02/03 21:06 Order name: SARS-COV-2 RT PCR [facility] 02/03 16:16 Order name: Cardiac monitoring; Complete Time: 16:34 [facility] 02/03 16:16 Order name: EKG - Nurse/Tech; Complete Time: 16:34 sp3 02/03 16:16 Order name: IV Saline Lock; Complete Time: 16:43 sp3 02/03 16:16 Order name: Labs collected and sent; Complete Time: 16:43 sp3 02/03 16:16 Order name: O2 Per Protocol; Complete Time: 16:34 sp3 02/03 16:16 Order name: O2 Sat Monitoring; Complete Time: 16:34 sp3 Administered Medications: 16:50 Drug: Lasix (furosemide) 40 mg Route: IVP; Site: right forearm; tw2 17:31 Follow up: Response: No adverse reaction tw2 17:41 Drug: Cefepime 1 grams Route: IVPB; Rate: 200 ml/hr; Infused Over: 30 mins; Site: right tw2 forearm; 18:15 Follow up: Response: No adverse reaction; IV Status: Completed infusion; IV Intake: tw2 100ml 18:15 Drug: vancoMYCIN 1 grams Route: IVPB; Infused Over: 2 hrs; Site: right forearm; tw2 Disposition Summary: 02/03/22 16:55 Hospitalization Ordered Hospitalization Status: Inpatient Admission sp3 Provider: Joesph Leslie sp3 Location: Intensive Care Unit sp3 Condition: Critical sp3 Problem: an acute exacerbation sp3 Symptoms: have worsened sp3 Bed/Room Type: Standard sp3 Room Assignment: 1-(02/03/22 22:13) ld1 Diagnosis - Acute respiratory distress, CHF, respiratory failure sp3 Forms: - Medication Reconciliation Form sp3 - SBAR form sp3 Signatures: Dispatcher [employer] EDMS Uma Moreno RN RN tw2 Anupama Alston RN RN ld1 Davey Chu MD MD sp3 Corrections: (The following items were deleted from the chart) 16:53 16:25 Chest Single View+RAD.RAD.BRZ ordered. EDMS EDMS 22:13 16:55 sp3 ld1
--- NOTE | 2022-02-03 17:05 | RAD REPORT ---
EXAM DESCRIPTION: RAD - Chest Single View - 02/03/2022 4:57 pm CLINICAL HISTORY: SOB COMPARISON: Portable 01/27/2022 TECHNIQUE: AP portable chest image was obtained 02/03/2022 4:57 pm . FINDINGS: Interstitial and alveolar opacification present in the lung owusu more pronounced in the upper left lung field than seen previously. Right lung field pattern is not substantially different. Cardiomegaly is present compared to prior imaging. Central vasculature is prominent. Right-sided pleu ral effusion is present. No pneumothorax seen. No acute bony abnormality seen. No acute aortic findings suspected. IMPRESSION: Interstitial and alveolar opacities in the lung owusu with significant increase in the left upper lung field compared to prior imaging. Cardiomegaly. CHF/volume overload is favored over pneumonia.
[2022-02-03 17:19] LABS: Albumin 2.9 g/dL (3.4-5.0); Bilirubin Total 0.4 mg/dL (0.2-1.0); Magnesium 2.2 mg/dL (1.8-2.4); Protein, Total 6.2 g/dL (6.4-8.2)
[2022-02-03 17:23] LABS: Potassium 5.7 mmol/L (3.5-5.1); Troponin High Sensitivity 686.2 pg/mL (<58.9)
[2022-02-03] MEDS ORDERED: VANCOMYCIN 1 GM/VIAL ONE (17:43)
[2022-02-03] MEDS ORDERED: LEVALBUTEROL 0.63 MG/3 ML NEB NEB PRN (17:43)
[2022-02-03] MEDS ORDERED: NA CHLORIDE 0.9% 500 ML ONE (17:43)
[2022-02-03] MEDS ORDERED: GLUCAGON 1 MG/VIAL IM PRN (17:44)
[2022-02-03] MEDS ORDERED: HYDRALAZINE HCL 20 MG/ML VIAL IV PRN (17:44)
[2022-02-03] MEDS ORDERED: CEFEPIME 1 GM/VIAL ONE (17:44)
[2022-02-03] MEDS ORDERED: HYDROMORPHONE HCL 1 MG/ML INJ IV PRN (17:48)
--- NOTE | 2022-02-03 17:55 | P.HP ---
Certification for Inpatient Patient admitted to: Inpatient With expected LOS: >2 Midnights Patient will require the following post-hospital care: Home Health Services Practitioner: I am a practitioner with admitting privileges, knowledge of patient current condition, hospital course, and medical plan of care. Services: Services provided to patient in accordance with Admission requirements found in Title 42 Section 412.3 of the Code of Federal Regulations Patient History Date of Service: 02/03/22 Primary Care Provider: trevon Reason for admission: copd exacerbation History of Present Illness: Patient is well known to me. He went home after a cath this past Tuesday. Went outdoors. Got short of breath. Was on prednisone. He did have home oxygen. The patient's called ems. He has an elevation of his creatine. Normally it is a 2. Was 1.58 on discharge. He is currently on a bipap and can not give a good history. He also has an elevated troponin. However there was no need for surgical intervention. Allergies No Known Allergies Allergy (Verified 05/20/12 16:57) Home Medications: carvediloL [Carvedilol] 6.25 mg PO BID 6AM 6PM 01/10/22 Levofloxacin [Levaquin] 500 mg PO DAILY 7 Days #7 tab 01/25/22 Prednisone [Sterapred Ds] 10 mg PO BID 15 Days #35 01/25/22 Roflumilast [Daliresp] 500 mcg PO DAILY 30 Days #30 tab 01/25/22 Isosorbide Mononitrate [Isosorbide Mononitrate ER] 30 mg PO DAILY 90 Days #90 tab 02/01/22 - Past Medical/Surgical History Diabetic: No -: HTN -: COPD -: [place] -: CAD -: CKD followed by Dr. Roy -: heart stent - Family History Father -: GI disease, Other (see notes) Notes: Heart attack Mother -: Cancer Notes: COPd - Social History Alcohol use: No CD- Drugs: No Caffeine use: Yes Review of Systems 10-point ROS is otherwise unremarkable Respiratory: Shortness of Breath Physical Examination - Physical Exam General: Alert, Severe distress HEENT: Atraumatic, PERRLA, Mucous membr. moist/pink, EOMI, Sclerae nonicteric Neck: Supple, 2+ carotid pulse no bruit, No LAD, Without JVD or thyroid abnormality Respiratory: Diminished, Expiratory wheezes Cardiovascular: Regular rate/rhythm, Normal S1 S2 Gastrointestinal: Normal bowel sounds, No tenderness Musculoskeletal: No tenderness Integumentary: No rashes Neurological: Normal gait, Normal speech, Normal strength at 5/5 x4 extr, Normal tone, Normal affect Lymphatics: No axilla or inguinal lymphadenopathy - Studies Laboratory Data (last 24 hrs) 02/03/22 16:39: PT 10.6, INR 0.96 02/03/22 16:39: Sodium 135 L, Potassium 5.7 H*, BUN 49 H, Creatinine 1.99 H, Glucose 216 H, Magnesium 2.2, Total Bilirubin 0.4, AST 29, ALT 40, Alkaline Phosphatase 85 02/03/22 16:39: WBC 37.2 H* D, Hgb 13.7, Hct 41.1, Plt Count 289 D Assessment and Plan - Problems (Diagnosis) (1) COPD exacerbation Current Visit: No Status: Acute Plan: He has been getting progressively worse. Will start him on steroids and breathing treatments. Continue the bipap. Will consult Dr. Workman. (2) Acute on chronic renal failure Current Visit: Yes Status: Acute Plan: will start him on the lasix again. Hopefully that will improve his lung function and creatine. He does not seem fluid overloaded. If not improvement tomorrow we can consult Dr. Vargas. Qualifiers: Chronic kidney disease stage: stage 3 (moderate) Chronic kidney disease stage 3 subtype: stage 3b (GFR 30-44) (3) CAD (coronary artery disease) Current Visit: Yes Status: Acute Plan: continue imdur and carvedilol (4) Troponin level elevated Current Visit: No Status: Acute (5) HTN (hypertension) Current Visit: No Status: Chronic Plan: continue imdur. Will add prn hydralazine. May consider restarting his amlodipine. Qualifiers: Hypertension type: primary hypertension Discharge Plan: Home Plan to discharge in: Greater than 2 days - Advance Directives Does patient have a Living Will: No Does patient have a Durable POA for Healthcare: No - Code Status/Comfort Care Code Status Assessed: Yes Code Status: Full Code Physician Review: Patient Assessed, Agree with Above Assessment and Plan Critical Care: No Time Spent Managing Pts Care (In Minutes): 60
[2022-02-03] MEDS: carvediloL 3.125 MG TAB PO SCH (18:00)
[2022-02-03] MEDS ORDERED: Levofloxacin500mg IV 500 MG/100 ML BAG IV SCH (18:00)
[2022-02-03] MEDS ORDERED: D10W 250 ML BAG IV PRN (18:18)
[2022-02-03 18:26] LABS: Toxic Granulation 2+
[2022-02-03 18:27] LABS: Blood Morphology Comment NOT SEEN (NOT SEEN); Platelet Estimate ADEQ
[2022-02-03] MEDS: ENOXAPARIN 40 MG/0.4 ML SQ SCH (20:00)
[2022-02-03] MEDS: INSULIN -REGULAR HUMAN 50 UNIT/0.5 ML ML SQ SCH (21:00)
[2022-02-04] MEDS ORDERED: dexAMETHasone 10 MG/ML VIAL IV SCH (01:00)
[2022-02-04 05:22] LABS: Absolute Lymphocytes (CBC) 2.6 K/uL (0.7-4.9); Hematocrit 34.9 % (39.6-49.0); Lymphocytes % 7.5 % (15.3-44.8); MPV 8.6 fL (7.6-11.3); RBC Red Blood Cell Count 3.88 M/uL (4.33-5.43)
[2022-02-04 05:57] LABS: Albumin 2.4 g/dL (3.4-5.0); Bilirubin Total 0.4 mg/dL (0.2-1.0); Protein, Total 5.3 g/dL (6.4-8.2)
[2022-02-04 05:58] LABS: Potassium 5.7 mmol/L (3.5-5.1)
[2022-02-04] MEDS: carvediloL 3.125 MG TAB PO SCH ×2 (06:16→16:08)
[2022-02-04] MEDS: INSULIN -REGULAR HUMAN 50 UNIT/0.5 ML ML SQ SCH ×4 (07:18→21:04)
[2022-02-04] MEDS ORDERED: SOD POLYSTYREN SUL 15 GM/60 ML UCUP PO ONE ×2 (08:04→08:54)
[2022-02-04] MEDS: ISOSORBIDE MONO SR 30 MG TAB PO SCH (08:39)
[2022-02-04] MEDS: CEFEPIME 1 GM in NA CHLORIDE 0.9% 100 ML IV SCH ×2 (08:39→21:02)
[2022-02-04] MEDS: dexAMETHasone 4 MG/ML VIAL IV SCH ×2 (08:39→21:02)
[2022-02-04] MEDS: VANCOMYCIN 1.5 GM in NA CHLORIDE 0.9% 500 ML IVPB SCH (08:56)
[2022-02-04] MEDS ORDERED: VANCOMYCIN 1 GM in NA CHLORIDE 0.9% 250 ML IVPB SCH (09:00)
[2022-02-04] MEDS ORDERED: FUROSEMIDE 40 MG/4 ML VIAL IV SCH ×2 (09:00)
--- NOTE | 2022-02-04 11:48 | P.PN ---
Subjective Date of Service: 02/04/22 Primary Care Provider: trevon Chief Complaint: copd exacerbation Subjective: Improving (off bipap, on high flow oxygen) Review of Systems 10-point ROS is otherwise unremarkable Respiratory: SOB with Excertion Physical Examination - Vital Signs Temperature: 98.5 F Blood Pressure: 129/72 Pulse: 78 Respirations: 21 Pulse Ox (%): 98 - Physical Exam General: Alert, In no apparent distress HEENT: Atraumatic, PERRLA, EOMI Neck: Supple, JVD not distended Respiratory: Diminished, Expiratory wheezes Cardiovascular: Regular rate/rhythm, Normal S1 S2 Gastrointestinal: Normal bowel sounds, No tenderness Musculoskeletal: No tenderness Integumentary: No rashes Neurological: Normal speech, Normal tone, Normal affect Lymphatics: No axilla or inguinal lymphadenopathy - Studies Laboratory Data (last 24 hrs) 02/03/22 16:39: PT 10.6, INR 0.96 02/03/22 16:39: Sodium 135 L, Potassium 5.7 H*, BUN 49 H, Creatinine 1.99 H, Glucose 216 H, Magnesium 2.2, Total Bilirubin 0.4, AST 29, ALT 40, Alkaline Phosphatase 85 02/03/22 16:39: WBC 37.2 H* D, Hgb 13.7, Hct 41.1, Plt Count 289 D Assessment And Plan - Current Problems (Diagnosis) (1) COPD exacerbation Current Visit: No Status: Acute Plan: He has been getting progressively worse. Will start him on steroids and breathing treatments. Continue the bipap. Will consult Dr. Workman. (2) Acute on chronic renal failure Current Visit: Yes Status: Acute Plan: will start him on the lasix again. Hopefully that will improve his lung function and creatine. He does not seem fluid overloaded. If not improvement tomorrow we can consult Dr. Vargas. 02/04 worsening function. Will consult Dr. Roy Qualifiers: Chronic kidney disease stage: stage 3 (moderate) Chronic kidney disease stage 3 subtype: stage 3b (GFR 30-44) (3) CAD (coronary artery disease) Current Visit: Yes Status: Acute Plan: continue imdur and carvedilol (4) Troponin level elevated Current Visit: No Status: Acute (5) HTN (hypertension) Current Visit: No Status: Chronic Plan: continue imdur. Will add prn hydralazine. May consider restarting his amlodipine. Qualifiers: Hypertension type: primary hypertension - Code Status/Comfort Care Code Status Assessed: No Physician Review: Patient Assessed, Agree with Above Assessment and Plan Critical Care: Yes Time Spent Managing PTS Care (In Minutes): 20
--- NOTE | 2022-02-04 12:38 | P.CNS ---
Date of Consult: 02/04/22 Reason for Consult: Respiratory failure pneumonia Primary Care Provider: trevon Chief Complaint: Respiratory distress History of Present Illness: Patient is 71 years of age current hospital admissions for respiratory distress which is recently discharged after cardiac cath came in again became very short of breath developed respiratory failure hypoxemia hypercapnia elevated white count possibly pneumonia currently on high flow oxygen Allergies No Known Allergies Allergy (Verified 05/20/12 16:57) Home Medications: carvediloL [Carvedilol] 6.25 mg PO BID 6AM 6PM 01/10/22 Levofloxacin [Levaquin] 500 mg PO DAILY 7 Days #7 tab 01/25/22 Prednisone [Sterapred Ds] 10 mg PO BID 15 Days #35 01/25/22 Roflumilast [Daliresp] 500 mcg PO DAILY 30 Days #30 tab 01/25/22 Isosorbide Mononitrate [Isosorbide Mononitrate ER] 30 mg PO DAILY 90 Days #90 tab 02/01/22 - Past Medical/Surgical History Diabetic: No -: HTN -: COPD -: [place] -: CAD -: CKD followed by Dr. Roy -: heart stent - Family History Father Medical History: GI disease, Other (see notes) Notes: Heart attack Mother Medical History: Cancer Notes: COPd - Social History Smoking Status: Current every day smoker Alcohol use: No CD- Drugs: No Caffeine use: Yes Place of Residence: Home Review of Systems 10-point ROS is otherwise unremarkable General: Weakness Respiratory: Cough, Shortness of Breath Physical Examination Temp Pulse Resp BP Pulse Ox 98.5 F 78 21 H 129/72 98 02/04/22 11:48 02/04/22 11:48 02/04/22 11:48 02/04/22 11:48 02/04/22 11:48 General: Alert, In no apparent distress, Moderate distress Respiratory: Crackles/rales, Expiratory wheezes Cardiovascular: No edema, Normal pulses, Regular rate/rhythm Gastrointestinal: Normal bowel sounds, Soft and benign Musculoskeletal: No clubbing, No swelling Laboratory Data (last 24 hrs) 02/03/22 16:39: PT 10.6, INR 0.96 02/03/22 16:39: Sodium 135 L, Potassium 5.7 H*, BUN 49 H, Creatinine 1.99 H, Glucose 216 H, Magnesium 2.2, Total Bilirubin 0.4, AST 29, ALT 40, Alkaline Phosphatase 85 02/03/22 16:39: WBC 37.2 H* D, Hgb 13.7, Hct 41.1, Plt Count 289 D - Problems (1) Respiratory failure with hypoxia and hypercapnia Current Visit: Yes Status: Acute Plan: Patient is 71 years of age admitted with respiratory failure hypoxemia hypercapnia setting interstitial changes on the chest x-ray elevated white count hyperkalemia worsening renal function given him a dose of 80 mg of IV Lasix expand antibiotic coverage to vancomycin and cefepime reduce dose of Solu-Medrol but possibly this time is developed a pneumonia risk for hospital-acquired infections Qualifiers: Chronicity: acute on chronic Qualified Code(s): J96.21 - Acute and chronic respiratory failure with hypoxia; J96.22 - Acute and chronic respiratory failure with hypercapnia
--- NOTE | 2022-02-04 14:12 | P.CNS ---
Date of Consult: 02/04/22 Reason for Consult: MEHREEN, CKD, hyperkalemia Primary Care Provider: trevon Chief Complaint: Respiratory distress History of Present Illness: Pt is a 71-year-old male with a medical history significant for hypertension, hyperlipidemia, CKD, reported coronary artery disease and COPD and he has had numerous hospitalizations it appears over the past 6 weeks in the setting of shortness of breath of related. Pt recently discharged and was back in the ER yesterday via EMS for acute shortness of breath severe enough that was initially put on NIPPV/BIPAP. He was admitted to the ICU. He reports breathing is better today than on presentation. He has put out just under 2L today with IV lasix administration. K levels have been elevated. Renal service was consulted and pt seen by Dr. Roy earlier in the month under similar circumstances. I did inquire about pt's use of Lisinopril and Lasix since going home but pt is not a good historian and states that his keeps up with his meds. Allergies No Known Allergies Allergy (Verified 05/20/12 16:57) Home Medications: carvediloL [Carvedilol] 6.25 mg PO BID 6AM 6PM 01/10/22 Levofloxacin [Levaquin] 500 mg PO DAILY 7 Days #7 tab 01/25/22 Prednisone [Sterapred Ds] 10 mg PO BID 15 Days #35 01/25/22 Roflumilast [Daliresp] 500 mcg PO DAILY 30 Days #30 tab 01/25/22 Isosorbide Mononitrate [Isosorbide Mononitrate ER] 30 mg PO DAILY 90 Days #90 tab 02/01/22 - Past Medical/Surgical History Diabetic: No -: HTN -: COPD -: [place] -: CAD -: CKD followed by Dr. Roy -: heart stent - Family History Father Medical History: GI disease, Other (see notes) Notes: Heart attack Mother Medical History: Cancer Notes: COPd - Social History Smoking Status: Current every day smoker Alcohol use: No CD- Drugs: No Caffeine use: Yes Place of Residence: Home Review of Systems General: Unremarkable Eyes: Unremarkable ENT: Unremarkable Respiratory: Shortness of Breath, Wheezing Cardiovascular: Unremarkable Gastrointestinal: Unremarkable Genitourinary: Unremarkable Musculoskeletal: Unremarkable Integumentary: Unremarkable Neurological: Unremarkable Lymphatics: Unremarkable Physical Examination Temp Pulse Resp BP Pulse Ox 97.4 F 84 25 H 119/61 100 02/04/22 12:00 02/04/22 13:00 02/04/22 13:00 02/04/22 13:00 02/04/22 13:00 General: In no apparent distress, Oriented x3 HEENT: Atraumatic, Normocephalic, EOMI Neck: Supple Respiratory: Diminished, Expiratory wheezes Cardiovascular: No edema, Regular rate/rhythm, Normal S1 S2 Gastrointestinal: Normal bowel sounds, Soft and benign, Non-distended Musculoskeletal: No swelling, No contractures Integumentary: No rashes Neurological: Normal speech, Normal affect Laboratory Data (last 24 hrs) 02/03/22 16:39: PT 10.6, INR 0.96 02/03/22 16:39: Sodium 135 L, Potassium 5.7 H*, BUN 49 H, Creatinine 1.99 H, Glucose 216 H, Magnesium 2.2, Total Bilirubin 0.4, AST 29, ALT 40, Alkaline Phosphatase 85 02/03/22 16:39: WBC 37.2 H* D, Hgb 13.7, Hct 41.1, Plt Count 289 D Conclusions/Impression: 1. Stage II MEHREEN, Cr level has risen > 0.5 mg/dl from level on discharge recently. 2. Underlying CKD, possible Stage III unspecified 3. Acute on chronic CHF, NOS 4. Acute pulmonary edema 5. Hyperkalemia 6. Leukocytosis, left shift -Renal function has worsened again in the setting of CHF exacerbation, other 2nd to presumed Cardio-renal syndrome, other. Fortunately pt's response to diuretic therapy thus far has been acceptable, cont to trend closely. Avoid nephrotoxic exposures, dose meds for reduced CrCl. Hold MICHELLE inhibitors. -Recurrent hyperkalemia -s/p dose of Kayexalate this AM, repeat level now and treat if K is still > 5.5. mmol/l. -Cont IV lasix, BNP level almost 3x higher than level when last checked, switch Lasix dosing to q8h for sustained diuresis. Adjust based on clinical response, UOP, imaging and BNP levels. -Cont beta helen therapy, target BP < 130/80. -Unclear if there is a superimposed PNA or other, leukocytosis seen on last admission is significantly higher now. Pt on empiric Vanc and Cefepime, monitor levels of former closely. Thank you for this referral, Yossi Fiore MD, [facility]
--- NOTE | 2022-02-04 14:33 | EKG ---
Test Date: 2022-02-03 Test Time: 16:25:13 Travel Agent: ST MEASUREMENT RESULTS: Intervals: Rate: 138 MI: QRSD: 152 QT: 362 QTc: 548 Scheller: P: MI: QRS: -7 T: 149 INTERPRETIVE STATEMENTS: Wide QRS tachycardia Left bundle branch block Abnormal ECG Compared to ECG 01/27/2022 09:36:08 Wide-QRS tachycardia now present Sinus tachycardia no longer present Fusion complex(es) no longer present Electronically Signed On 02-04-22 14:31:30 CDT by Jerardo Hussein
[2022-02-04] MEDS: ENOXAPARIN 40 MG/0.4 ML SQ SCH (16:08)
[2022-02-04] MEDS: FUROSEMIDE 40 MG/4 ML VIAL IV SCH (16:09)
[2022-02-04 20:33] LABS: Urine Bilirubin Negative (Negative); Urine Blood 2+ (Negative); Urine Clarity Clear (Clear); Urine Color Yellow (Yellow); Urine Glucose Trace (Negative); Urine Protein Negative (Negative); Urine Urobilinogen 0.2 mg/dL (0.2-1.0)
[2022-02-04 20:43] LABS: Urine Bacteria <20 /HPF (<20); Urine RBC <5 /HPF (None Seen)
[2022-02-05] MEDS: FUROSEMIDE 40 MG/4 ML VIAL IV SCH ×2 (01:14→18:08)
[2022-02-05] MEDS: carvediloL 3.125 MG TAB PO SCH ×2 (06:38→18:09)
[2022-02-05 06:42] LABS: Absolute Lymphocytes (CBC) 3.1 K/uL (0.7-4.9); Hematocrit 35.2 % (39.6-49.0); Lymphocytes % 14.4 % (15.3-44.8); MCV 89.4 fL (80-100); MPV 8.4 fL (7.6-11.3); RBC Red Blood Cell Count 3.94 M/uL (4.33-5.43)
[2022-02-05 06:50] LABS: Albumin 2.4 g/dL (3.4-5.0); Bilirubin Total 0.6 mg/dL (0.2-1.0); Potassium 4.1 mmol/L (3.5-5.1); Protein, Total 5.4 g/dL (6.4-8.2)
[2022-02-05] MEDS: INSULIN -REGULAR HUMAN 50 UNIT/0.5 ML ML SQ SCH ×4 (07:30→20:01)
[2022-02-05] MEDS ORDERED: LEVALBUTEROL 0.63 MG/3 ML NEB NEB PRN (07:49)
--- NOTE | 2022-02-05 07:50 | P.PN ---
Subjective Date of Service: 02/05/22 Primary Care Provider: trevon Chief Complaint: Respiratory distress pneumonia Subjective: Improving (Patient is improving doing better breathing has improved white count is declining) Review of Systems General: Weakness Respiratory: Cough, Shortness of Breath Physical Examination - Vital Signs Temperature: 98.2 F Blood Pressure: 147/70 Pulse: 72 Respirations: 12 Pulse Ox (%): 100 - Physical Exam General: Alert, Oriented x3, Mild distress Respiratory: Clear to auscultation bilaterally, Diminished Cardiovascular: No edema, Regular rate/rhythm Assessment And Plan - Current Problems (Diagnosis) (1) Respiratory failure with hypoxia and hypercapnia Current Visit: Yes Status: Acute Plan: Patient is improving oxygen requirements are declining and count is declining renal function has improved continue with IV Lasix broad-spectrum antibiotics chest x-ray seems to have improved have underlying severe diastolic dysfunction use high doses of Lasix. Patient's chest x-ray is also improved most likely saw diastolic heart failure patient is going require at least 80 mg of Lasix daily as metolazone if needed Qualifiers: Chronicity: acute on chronic Qualified Code(s): J96.21 - Acute and chronic respiratory failure with hypoxia; J96.22 - Acute and chronic respiratory failure with hypercapnia Physician Review: Patient Assessed, Agree with Above Assessment and Plan
--- NOTE | 2022-02-05 08:24 | RAD REPORT ---
EXAM DESCRIPTION: RAD - Chest Single View - 02/05/2022 5:43 am CLINICAL HISTORY: Respiratory failure Chest pain. COMPARISON: Chest Single View dated 02/03/2022; Chest Single View dated 01/27/2022; Chest Single View d ated 01/25/2022; Chest Single View dated 01/21/2022 FINDINGS: Portable technique limits examination quality. Since 02/03/2022, there has been moderate improvement in bilateral pulmonary opacities. Small bilobed right pleural effusion with right lung base opacity also appears improved but remains present. The h eart is moderately enlarged. No displaced fractures. IMPRESSION: Moderate improvement in lung aeration is seen since comparative study.
[2022-02-05] MEDS: ISOSORBIDE MONO SR 30 MG TAB PO SCH (08:48)
[2022-02-05] MEDS: dexAMETHasone 4 MG TAB PO SCH ×2 (08:48→20:01)
[2022-02-05] MEDS: CEFEPIME 1 GM in NA CHLORIDE 0.9% 100 ML IV SCH ×2 (08:49→20:02)
[2022-02-05] MEDS ORDERED: FUROSEMIDE 40 MG/4 ML VIAL IV SCH (09:00)
--- NOTE | 2022-02-05 11:27 | P.PN ---
Date of Service: 02/05/22 Nephrology note: (S) Pt reports breathing improved, CXR with some radiographic improvement, renal function stable. (O) Vitals reviewed in EMR General: In no apparent distress, Oriented x3 HEENT: Atraumatic, Normocephalic, EOMI Neck: Supple Respiratory: b/l air entry, no rhonchi, diminished Rt base Cardiovascular: No edema, Regular rate/rhythm, Normal S1 S2 Gastrointestinal: Normal bowel sounds, Soft and benign, Non-distended Musculoskeletal: No swelling, No contractures Integumentary: No rashes Neurological: Normal speech, Normal affect Laboratory Data (last 24 hrs) Reviewed in EMR Conclusions/Impression: 1. Stage II MEHREEN, Cr level has risen > 0.5 mg/dl from level on discharge recently. 2. Underlying CKD, possible Stage III unspecified 3. Acute on chronic CHF, NOS 4. Acute pulmonary edema 5. Hyperkalemia, resolved 6. Leukocytosis, left shift -Renal function had worsened again in the setting of CHF exacerbation, other 2nd to presumed Cardio-renal syndrome, other. Fortunately pt's response to diuretic therapy has been excellent, in fact > 4L UOP over the past 24h. Cr level plateauing, cont to monitor with decongestive therapy. Avoid nephrotoxic exposures, dose meds for reduced CrCl. Hold MICHELLE inhibitors for the time being. -Recurrent hyperkalemia -resolved -Cont IV lasix for another 24h, no need to escalate dose as pt had appropriate response with the equivalent dose of about 120 mg of Lasix over 24h, BNP level almost 3x higher than level when last checked, switched Lasix dosing to q8h for sustained diuresis. -Cont beta helen therapy, target BP < 130/80. -There may be superimposed PNA or other 2nd to unspecifie organism, leukocytosis seen on last admission is significantly higher now but has trended lower today. Pt on empiric Vanc and Cefepime, monitor levels of former closely. Defer Abx management to primary team Yossi Fiore MD, [facility]
--- NOTE | 2022-02-05 12:29 | P.PN ---
Subjective Date of Service: 02/05/22 Primary Care Provider: trevon Chief Complaint: Respiratory distress pneumonia Subjective: Improving Review of Systems 10-point ROS is otherwise unremarkable Respiratory: SOB with Excertion Physical Examination - Vital Signs Temperature: 97.1 F Blood Pressure: 124/69 Pulse: 75 Respirations: 17 Pulse Ox (%): 97 - Physical Exam General: Alert, In no apparent distress HEENT: Atraumatic, PERRLA, EOMI Neck: Supple, JVD not distended Respiratory: Normal air movement, Rhonchi/gurgles Cardiovascular: Regular rate/rhythm, Normal S1 S2 Gastrointestinal: Normal bowel sounds, No tenderness Musculoskeletal: No tenderness Integumentary: No rashes Neurological: Normal speech, Normal tone, Normal affect Lymphatics: No axilla or inguinal lymphadenopathy Assessment And Plan - Current Problems (Diagnosis) (1) Pneumonia Current Visit: No Status: Acute Plan: continue iv antibiotics and treatment. We may need placement. He has been on a lot of steroids in the last few weeks. Was on levaquin during the last discharge. Will consider placement Qualifiers: Pneumonia type: due to unspecified organism Laterality: right Lung location: lower lobe of lung Qualified Code(s): J18.9 - Pneumonia, unspecified organism (2) COPD exacerbation Current Visit: No Status: Acute Plan: He has been getting progressively worse. Will start him on steroids and breathing treatments. Continue the bipap. Will consult Dr. Workman. (3) Acute on chronic renal failure Current Visit: Yes Status: Acute Plan: will start him on the lasix again. Hopefully that will improve his lung function and creatine. He does not seem fluid overloaded. If not improvement tomorrow we can consult Dr. Vargas. 02/04 worsening function. Will consult Dr. Roy Qualifiers: Chronic kidney disease stage: stage 3 (moderate) Chronic kidney disease stage 3 subtype: stage 3b (GFR 30-44) (4) CAD (coronary artery disease) Current Visit: Yes Status: Acute Plan: continue imdur and carvedilol (5) Troponin level elevated Current Visit: No Status: Acute (6) HTN (hypertension) Current Visit: No Status: Chronic Plan: continue imdur. Will add prn hydralazine. May consider restarting his amlodipine. Qualifiers: Hypertension type: primary hypertension Discharge Plan: Home Plan to discharge in: 24 Hours - Code Status/Comfort Care Code Status Assessed: No Physician Review: Patient Assessed, Agree with Above Assessment and Plan Critical Care: No Time Spent Managing PTS Care (In Minutes): 25
[2022-02-05] MEDS: ENOXAPARIN 40 MG/0.4 ML SQ SCH (18:09)
[2022-02-05] MEDS: SACUBITRIL/VALSARTAN 24/26 MG TAB PO SCH (20:01)
[2022-02-05] MEDS: VANCOMYCIN 1.5 GM in NA CHLORIDE 0.9% 500 ML IVPB SCH (21:25)
[2022-02-06] MEDS: FUROSEMIDE 40 MG/4 ML VIAL IV SCH ×3 (00:07→17:06)
[2022-02-06 04:44] LABS: Absolute Lymphocytes (CBC) 2.9 K/uL (0.7-4.9); Hematocrit 35.5 % (39.6-49.0); Lymphocytes % 15.2 % (15.3-44.8); MCV 90.4 fL (80-100); MPV 8.5 fL (7.6-11.3); RBC Red Blood Cell Count 3.93 M/uL (4.33-5.43)
[2022-02-06 05:11] LABS: Albumin 2.3 g/dL (3.4-5.0); Bilirubin Total 0.7 mg/dL (0.2-1.0); Potassium 3.8 mmol/L (3.5-5.1); Protein, Total 5.2 g/dL (6.4-8.2)
[2022-02-06] MEDS: carvediloL 3.125 MG TAB PO SCH ×2 (06:00→17:06)
[2022-02-06] MEDS: INSULIN -REGULAR HUMAN 50 UNIT/0.5 ML ML SQ SCH ×4 (07:30→21:29)
--- NOTE | 2022-02-06 07:39 | RAD REPORT ---
EXAM DESCRIPTION: [place] Single View02/06/2022 6:58 am CLINICAL HISTORY: Respiratory failure COMPARISON: February 05, 2022 FINDINGS: No significant change in mild bilateral pulmonary opacities. No significant change in the right basilar opacities/small right pleural effusion Cardiomegaly IMPRESSION: No significant change since the prior exam
--- NOTE | 2022-02-06 08:12 | P.PN ---
Subjective Date of Service: 02/06/22 Primary Care Provider: trevon Chief Complaint: Shortness of breath Subjective: Improving (Patient is improving doing much better he has had no further episodes) Review of Systems 10-point ROS is otherwise unremarkable Physical Examination - Vital Signs Temperature: 97.1 F Blood Pressure: 117/65 Pulse: 55 Respirations: 17 Pulse Ox (%): 100 - Physical Exam General: Alert, In no apparent distress, Oriented x3 Neck: Supple Respiratory: Clear to auscultation bilaterally Cardiovascular: No edema, Regular rate/rhythm Assessment And Plan - Current Problems (Diagnosis) (1) Acute on chronic diastolic heart failure Current Visit: Yes Status: Acute Plan: I suspect he has acute on chronic diastolic heart failure continue with diuretic present medications reviewed white count is still a little elevated DC vancomycin blood cultures are all negative vital signs oxygenation all stable agree with high doses of Lasix and Entresto follow-up by renal stable discharge in 1 to 2 days on Lasix and Entresto possibly carvedilol will DC steroids for now Physician Review: Patient Assessed, Agree with Above Assessment and Plan
[2022-02-06] MEDS: SACUBITRIL/VALSARTAN 24/26 MG TAB PO SCH ×2 (08:39→20:57)
[2022-02-06] MEDS: CEFEPIME 1 GM in NA CHLORIDE 0.9% 100 ML IV SCH ×2 (08:39→20:57)
[2022-02-06] MEDS: ENOXAPARIN 40 MG/0.4 ML SQ SCH (17:06)
--- NOTE | 2022-02-06 17:27 | P.PN ---
Subjective Date of Service: 02/06/22 Primary Care Provider: trevon Chief Complaint: Shortness of breath Subjective: No new changes Review of Systems 10-point ROS is otherwise unremarkable Physical Examination - Vital Signs Temperature: 97.7 F Blood Pressure: 124/61 Pulse: 68 Respirations: 24 Pulse Ox (%): 90 - Physical Exam General: Alert, In no apparent distress HEENT: Atraumatic, PERRLA, EOMI Neck: Supple, JVD not distended Respiratory: Clear to auscultation bilaterally, Normal air movement Cardiovascular: Regular rate/rhythm, Normal S1 S2 Gastrointestinal: Normal bowel sounds, No tenderness Musculoskeletal: No tenderness Integumentary: No rashes Neurological: Normal speech, Normal tone, Normal affect Lymphatics: No axilla or inguinal lymphadenopathy Assessment And Plan - Current Problems (Diagnosis) (1) Acute on chronic diastolic heart failure Current Visit: Yes Status: Acute Plan: Patient is much improved on entresto and lasix. Will start treating this admission as chf exacerbation. If he continues to improve we may send him home on Tuesday (2) Pneumonia Current Visit: No Status: Acute Plan: continue iv antibiotics and treatment. We may need placement. He has been on a lot of steroids in the last few weeks. Was on levaquin during the last discharge. Will consider placement Qualifiers: Pneumonia type: due to unspecified organism Laterality: right Lung location: lower lobe of lung Qualified Code(s): J18.9 - Pneumonia, unspecified organism (3) COPD exacerbation Current Visit: No Status: Acute Plan: He has been getting progressively worse. Will start him on steroids and breathing treatments. Continue the bipap. Will consult Dr. Workman. (4) Acute on chronic renal failure Current Visit: Yes Status: Acute Plan: will start him on the lasix again. Hopefully that will improve his lung function and creatine. He does not seem fluid overloaded. If not improvement tomorrow we can consult Dr. Vargas. 02/04 worsening function. Will consult Dr. Roy Qualifiers: Chronic kidney disease stage: stage 3 (moderate) Chronic kidney disease stage 3 subtype: stage 3b (GFR 30-44) (5) CAD (coronary artery disease) Current Visit: Yes Status: Acute Plan: continue imdur and carvedilol (6) Troponin level elevated Current Visit: No Status: Acute (7) HTN (hypertension) Current Visit: No Status: Chronic Plan: continue imdur. Will add prn hydralazine. May consider restarting his amlodipine. Qualifiers: Hypertension type: primary hypertension Discharge Plan: Home Plan to discharge in: 48 Hours - Code Status/Comfort Care Code Status Assessed: No Physician Review: Patient Assessed, Agree with Above Assessment and Plan Critical Care: No Time Spent Managing PTS Care (In Minutes): 20
--- NOTE | 2022-02-06 20:27 | PN ---
Date of Progress Note: 02/06/2022 Subjective: The patient is seen at bedside. Remains in ICU. He is sitting upright in the bed havin g a cup of coffee at this time. He feels well. Denies any fevers, chills, chest pain. Shortness of breath has improved. No nausea, vomiting, or diarrhea noted. Objective: Vital Signs: Blood pressure is 124/61, pulse 91, afebrile. General: No acute distress. Heart: Regular rate rhythm. No murmurs, rubs, or gallops. Lungs: Clear to auscultation bilaterally. Abdomen: Soft. Extremities: No edema. Laboratory Data: CBC: WBC 19.4, hemoglobin 12.4, hematocrit 35.5, platelet count 176. Serum chemis try: Sodium 132; potassium 3.8; chloride 97; CO2 30; BUN 69 and creatinine 1.79, yesterday was 66/2. 12; calcium 8.3. Last magnesium on the was 2.2. Current Medications: Reviewed. Of note, Entresto 24/26 mg was added yesterday at a b.i.d. dose. e patient continues on Lasix 40 mg IV q.8. Remainder medications noted. Impression: 1.Acute kidney injury. 2.Underlying chronic kidney disease, stage 3. 3.Eissf-ef-naeptpl congestive heart failure. 4.Pulmonary edema. 5.Leukocytosis. Plan: Please decrease to b.i.d. dosing. With initiation of Entresto by primary team, the patient wi ll likely have a rise in creatinine as long as that is in expected range of 15% to 20% increased crea tinine that is acceptable. However, the patient is having low-normal blood pressures and with such s ignificant diuresis, the patient will need decrease of Lasix that has been decreased q.12. the patie nt does have hyponatremia at this point, which appears to be depletion. We will follow up urine chem istries. The patient may need further decrease of patient's Lasix dosing based on continued response . Avoid all NSAIDs and iodinated contrast. Continue to renal dose all medications. We will continue t o follow. SE/MODL Voice ID: [id number] Report ID: [id number]
[2022-02-07] MEDS: carvediloL 3.125 MG TAB PO SCH ×2 (06:00→17:41)
[2022-02-07] MEDS: INSULIN -REGULAR HUMAN 50 UNIT/0.5 ML ML SQ SCH ×4 (07:30→20:04)
[2022-02-07] MEDS: CEFEPIME 1 GM in NA CHLORIDE 0.9% 100 ML IV SCH ×2 (08:12→20:06)
[2022-02-07] MEDS: FUROSEMIDE 40 MG/4 ML VIAL IV SCH ×2 (08:13→17:41)
[2022-02-07] MEDS: SACUBITRIL/VALSARTAN 24/26 MG TAB PO SCH ×2 (08:13→20:06)
--- NOTE | 2022-02-07 09:27 | RAD REPORT ---
EXAM DESCRIPTION: RAD - Chest Single View - 02/07/2022 8:12 am CLINICAL HISTORY: Respiratory failure Chest pain. COMPARISON: Chest Single View dated 02/06/2022; Chest Single View dated 02/05/2022; Chest Single View dated 02/03/2022; Chest Single View dated 01/27/2022 FINDINGS: Portable technique limits examination quality. Bilateral pulmonary opacities and right pleural and parenchymal opacities appear unchanged since prio r study. The heart is mildly enlarged in size. No displaced fractures. IMPRESSION: No significant change is seen since yesterday's study.
[2022-02-07 12:53] LABS: Potassium 3.7 mmol/L (3.5-5.1)
--- NOTE | 2022-02-07 14:18 | P.PN ---
Subjective Date of Service: 02/07/22 Primary Care Provider: trevon Chief Complaint: Shortness of breath Subjective: Improving Review of Systems 10-point ROS is otherwise unremarkable Physical Examination - Vital Signs Temperature: 97.1 F Blood Pressure: 109/55 Pulse: 82 Respirations: 16 Pulse Ox (%): 98 - Physical Exam General: Alert, In no apparent distress HEENT: Atraumatic, PERRLA, EOMI Neck: Supple, JVD not distended Respiratory: Clear to auscultation bilaterally, Normal air movement Cardiovascular: Regular rate/rhythm, Normal S1 S2 Gastrointestinal: Normal bowel sounds, No tenderness Musculoskeletal: No tenderness Integumentary: No rashes Neurological: Normal speech, Normal tone, Normal affect Lymphatics: No axilla or inguinal lymphadenopathy Assessment And Plan - Current Problems (Diagnosis) (1) Acute on chronic diastolic heart failure Current Visit: Yes Status: Acute Plan: Patient is much improved on entresto and lasix. Will start treating this admission as chf exacerbation. If he continues to improve we may send him home on Tuesday02/07/22 Patient improving on entresto and lasix. (2) Pneumonia Current Visit: No Status: Acute Plan: continue iv antibiotics and treatment. We may need placement. He has been on a lot of steroids in the last few weeks. Was on levaquin during the last discharge. Will consider placement Qualifiers: Pneumonia type: due to unspecified organism Laterality: right Lung location: lower lobe of lung Qualified Code(s): J18.9 - Pneumonia, unspecified organism (3) COPD exacerbation Current Visit: No Status: Acute Plan: He has been getting progressively worse. Will start him on steroids and breathing treatments. Continue the bipap. Will consult Dr. Workman. (4) Acute on chronic renal failure Current Visit: Yes Status: Acute Plan: will start him on the lasix again. Hopefully that will improve his lung functio n and creatine. He does not seem fluid overloaded. If not improvement tomorrow we can consult Dr. Vargas. 02/04 worsening function. Will consult Dr. Roy Qualifiers: Chronic kidney disease stage: stage 3 (moderate) Chronic kidney disease stage 3 subtype: stage 3b (GFR 30-44) (5) CAD (coronary artery disease) Current Visit: Yes Status: Acute Plan: continue imdur and carvedilol (6) Troponin level elevated Current Visit: No Status: Acute (7) HTN (hypertension) Current Visit: No Status: Chronic Plan: continue imdur. Will add prn hydralazine. May consider restarting his amlodipine. Qualifiers: Hypertension type: primary hypertension - Plan plans for snf tomorrow. Patient has better cardiopulmonary activity and kidney function. Will discharge on entresto and lasix. We may be able to d/c the lasix in a month if he continues to improve. Discharge Plan: Home Plan to discharge in: 24 Hours - Code Status/Comfort Care Code Status Assessed: No Code Status: Full Code Physician Review: Patient Assessed, Agree with Above Assessment and Plan Critical Care: No Time Spent Managing PTS Care (In Minutes): 20
[2022-02-07] MEDS: ENOXAPARIN 40 MG/0.4 ML SQ SCH (17:41)
[2022-02-08] MEDS: carvediloL 3.125 MG TAB PO SCH ×2 (05:58→17:59)
[2022-02-08 06:01] VITALS: BMI 23.3
[2022-02-08] MEDS: INSULIN -REGULAR HUMAN 50 UNIT/0.5 ML ML SQ SCH ×4 (07:30→21:00)
--- NOTE | 2022-02-08 08:13 | P.DS ---
Admission Date: 02/03/22 Discharge Date: 02/08/22 Primary Care Provider: trevon Disposition: TRANSFER TO SNF - REHAB Discharge Condition: GOOD Reason for Admission: Shortness of breath - Problems (1) Acute on chronic diastolic heart failure Current Visit: Yes Status: Acute (2) Pneumonia Current Visit: No Status: Acute Qualifiers: Pneumonia type: due to unspecified organism Laterality: right Lung location: lower lobe of lung Qualified Code(s): J18.9 - Pneumonia, unspecified organism (3) COPD exacerbation Current Visit: No Status: Acute (4) Acute on chronic renal failure Current Visit: Yes Status: Acute Qualifiers: Chronic kidney disease stage: stage 3 (moderate) Chronic kidney disease stage 3 subtype: stage 3b (GFR 30-44) (5) CAD (coronary artery disease) Current Visit: Yes Status: Acute (6) Troponin level elevated Current Visit: No Status: Acute (7) HTN (hypertension) Current Visit: No Status: Chronic Qualifiers: Hypertension type: primary hypertension Brief History of Present Illness: Patient is well known to me. He went home after a cath this past Tuesday. Went outdoors. Got short of breath. Was on prednisone. He did have home oxygen. The patient's called ems. He has an elevation of his creatine. Normally it is a 2. Was 1.58 on discharge. He is currently on a bipap and can not give a good history. He also has an elevated troponin. However there was no need for surgical intervention. Hospital Course: Patient was admitted for what seemed like a copd exacerbation. However most likely he has chf. Patient responded very well to lasix. Both his renal function and breathing improved. Xray improved significantly. Started him on entresto. Which further improved the patient. Will discharge him to Snf. Continue levaquin, entresto and lasix. Will d/c the imdur on the patient as his bp is a bit low this morning. Vital Signs/Physical Exam: Temp Pulse Resp BP Pulse Ox 96.5 F L 59 18 95/60 100 02/08/22 04:00 02/08/22 05:58 02/08/22 04:00 02/08/22 05:58 02/08/22 04:00 General: Alert, In no apparent distress HEENT: Atraumatic, PERRLA, EOMI Neck: Supple, JVD not distended Respiratory: Clear to auscultation bilaterally, Normal air movement Cardiovascular: Regular rate/rhythm, Normal S1 S2 Gastrointestinal: Normal bowel sounds, No tenderness Musculoskeletal: No tenderness Integumentary: No rashes Neurological: Normal speech, Normal tone, Normal affect Lymphatics: No axilla or inguinal lymphadenopathy Laboratory Data at Discharge: WBC 19.4 K/uL (4.3-10.9) H 02/06/22 04:28 Hgb 12.4 g/dL (13.6-17.9) L 02/06/22 04:28 Hct 35.5 % (39.6-49.0) L 02/06/22 04:28 Plt Count 176 K/uL (152-406) 02/06/22 04:28 PT 10.6 SECONDS (9.5-12.5) 02/03/22 16:39 INR 0.96 02/03/22 16:39 Sodium 133 mmol/L (136-145) L 02/07/22 12:15 Potassium 3.7 mmol/L (3.5-5.1) 02/07/22 12:15 BUN 66 mg/dL (7-18) H 02/07/22 12:15 Creatinine 1.83 mg/dL (0.55-1.3) H 02/07/22 12:15 Glucose 104 mg/dL (74-106) 02/07/22 12:15 Magnesium 2.2 mg/dL (1.8-2.4) 02/03/22 16:39 Total Bilirubin 0.7 mg/dL (0.2-1.0) 02/06/22 04:28 AST 65 U/L (15-37) H 02/06/22 04:28 ALT 44 U/L (12-78) 02/06/22 04:28 Alkaline Phosphatase 63 U/L (45-117) 02/06/22 04:28 Home Medications: carvediloL [Carvedilol] 6.25 mg PO BID 6AM 6PM 01/10/22 Prednisone [Sterapred Ds] 10 mg PO BID 15 Days #35 01/25/22 Roflumilast [Daliresp] 500 mcg PO DAILY 30 Days #30 tab 01/25/22 Albuterol Sulfate [Albuterol Sulfate Hfa] 1 puff IH DAILY 02/05/22 Fluticasone/Salmeterol [Advair Hfa 230-21 Mcg Inhaler] 1 puff IH DAILY 02/05/22 Furosemide [Lasix] 40 mg PO DAILY WITH BREAKFAST 90 Days #90 tab 02/08/22 Levofloxacin [Levaquin] 500 mg PO DAILY 7 Days #7 tab 02/08/22 Sacubitril/Valsartan [Entresto 24 mg-26 mg Tablet] 1 tab PO BID 90 Days #180 tab 02/08/22 New Medications: Sacubitril/Valsartan [Entresto 24 mg-26 mg Tablet] 1 tab PO BID 90 Days #180 tab Furosemide [Lasix] 40 mg PO DAILY WITH BREAKFAST 90 Days #90 tab Levofloxacin [Levaquin] 500 mg PO DAILY 7 Days #7 tab Diet: AHA Activity: Ad angélica Physician Review: Patient Assessed, Agree with Above Assessment and Plan Time spent managing pt's care (in minutes): 20
[2022-02-08] MEDS: SACUBITRIL/VALSARTAN 24/26 MG TAB PO SCH ×2 (08:47→21:36)
[2022-02-08] MEDS: FUROSEMIDE 40 MG/4 ML VIAL IV SCH ×2 (08:48→17:00)
[2022-02-08] MEDS ORDERED: LEVALBUTEROL 0.63 MG/3 ML NEB NEB PRN (14:00)
[2022-02-08] MEDS: ENOXAPARIN 40 MG/0.4 ML SQ SCH (17:00)
--- NOTE | 2022-02-08 20:12 | P.PN ---
Date of Service: 02/08/22 Vital Signs Temp Pulse Resp BP Pulse Ox 98.1 F 75 23 H 93/53 L 89 L 02/08/22 16:00 02/08/22 16:00 02/08/22 16:00 02/08/22 16:00 02/08/22 12:00 Medications Carvedilol (Carvedilol 3.125 Mg Tab) 3.125 mg PO BID 6AM 6PM [facility] Last Admin: 02/08/22 17:59 Dose: Not Given Dextrose (D10w 250 Ml Bag) 125 ml IV PRN PRN; Protocol PRN Reason: HYPOGLYCEMIA Enoxaparin Sodium (Enoxaparin 40 Mg/0.4 Ml) 40 mg SQ DAILY 5 PM [facility] Last Admin: 02/08/22 17:00 Dose: Not Given Furosemide (Furosemide 40 Mg/4 Ml Vial) 40 mg IV BIDL [facility] Last Admin: 02/08/22 17:00 Dose: Not Given Glucagon (Glucagon 1 Mg/Vial) 1 mg IM 1X PRN; Protocol PRN Reason: HYPOGLYCEMIA Hydralazine HCl (Hydralazine Hcl 20 Mg/Ml Vial) 10 mg IV Q6HP PRN PRN Reason: FOR SBP>160 OR DBP>100 MMHG Hydromorphone HCl (Hydromorphone Hcl 1 Mg/Ml Inj) 1 mg IV Q6H PRN PRN Reason: Pain scale 5-7 (Moderate) Insulin Human Regular (Insulin -Regular Human 50 Unit/0.5 Ml Ml) 0 unit SQ ACHS [facility]; Protocol Last Admin: 02/08/22 16:30 Dose: Not Given Levalbuterol HCl (Levalbuterol 0.63 Mg/3 Ml Neb) 0.63 mg NEB [id number] PRN PRN Reason: SHORTNESS OF BREATH Microbiology Results 02/03/22 16:39 Blood - Blood Aerobic Blood Culture - Final No growth in 5 days. 02/03/22 16:39 Blood - Blood Anaerobic Blood Culture - Final No growth in 5 days. 02/03/22 17:12 Blood - Blood Aerobic Blood Culture - Final No growth in 5 days. 02/03/22 17:12 Blood - Blood Anaerobic Blood Culture - Final No growth in 5 days. Assessment/ Plan: Nephrology No dyspnea No chest pain Feeling much better with good urine output. +BM No acute events overnight Vitals, medications, blood work and imaging reviewed in the chart. NAD. NCAT. MMM. Neck supple. Normal respiratory effort. RRR. Abd ND. No C/C/E. No rash. AAO. Normal speech. MEHREEN likely CRS CKD III -No NSAIDs -Change to oral furosemide 40mg bid Hyponatremia -Continue furosemide HTN with CKD -Continue Entresto Diastolic CHF, A/C -Low sodium diet -Change to oral furosemide -Continue Entresto IFG A1C 6.3 -No sugar diet -RISS Moderate malnutrition -Encourage nutrition Cigarette smoker with underlying vascular disease -Recommend tobacco cessation
[2022-02-09 00:55] VITALS: O2SAT 94
[2022-02-09] MEDS: carvediloL 3.125 MG TAB PO SCH (06:00)
[2022-02-09] MEDS: INSULIN -REGULAR HUMAN 50 UNIT/0.5 ML ML SQ SCH ×2 (07:30→11:30)
[2022-02-09] MEDS ORDERED: FUROSEMIDE 40 MG TABLET PO SCH (09:00)
[2022-02-09] MEDS: SACUBITRIL/VALSARTAN 24/26 MG TAB PO SCH (09:09)
--- NOTE | 2022-02-09 10:16 | P.PN ---
Subjective Date of Service: 02/09/22 Primary Care Provider: trevon Chief Complaint: Shortness of breath Subjective: No new changes pending insurance authorization for snf Review of Systems 10-point ROS is otherwise unremarkable Physical Examination - Vital Signs Temperature: 98.1 F Blood Pressure: 96/57 Pulse: 56 Respirations: 14 Pulse Ox (%): 99 - Physical Exam General: Alert, In no apparent distress HEENT: Atraumatic, PERRLA, EOMI Neck: Supple, JVD not distended Respiratory: Clear to auscultation bilaterally, Normal air movement Cardiovascular: Regular rate/rhythm, Normal S1 S2 Gastrointestinal: Normal bowel sounds, No tenderness Musculoskeletal: No tenderness Integumentary: No rashes Neurological: Normal speech, Normal tone, Normal affect Lymphatics: No axilla or inguinal lymphadenopathy - Studies Microbiology Data (last 24 hrs): 02/03/22 16:39 Blood - Blood Aerobic Blood Culture - Final No growth in 5 days. 02/03/22 16:39 Blood - Blood Anaerobic Blood Culture - Final No growth in 5 days. 02/03/22 17:12 Blood - Blood Aerobic Blood Culture - Final No growth in 5 days. 02/03/22 17:12 Blood - Blood Anaerobic Blood Culture - Final No growth in 5 days. Assessment And Plan - Current Problems (Diagnosis) (1) Acute on chronic diastolic heart failure Current Visit: Yes Status: Acute Plan: Patient is much improved on entresto and lasix. Will start treating this admission as chf exacerbation. If he continues to improve we may send him home on Tuesday02/07/22 Patient improving on entresto and lasix. (2) Pneumonia Current Visit: No Status: Acute Plan: continue iv antibiotics and treatment. We may need placement. He has been on a lot of steroids in the last few weeks. Was on levaquin during the last discharge. Will consider placement Qualifiers: Pneumonia type: due to unspecified organism Laterality: right Lung location: lower lobe of lung Qualified Code(s): J18.9 - Pneumonia, unspecified organism (3) COPD exacerbation Current Visit: No Status: Acute Plan: He has been getting progressively worse. Will start him on steroids and breathing treatments. Continue the bipap. Will consult Dr. Workman. (4) Acute on chronic renal failure Current Visit: Yes Status: Acute Plan: will start him on the lasix again. Hopefully that will improve his lung function and creatine. He does not seem fluid overloaded. If not improvement tomorrow we can consult Dr. Vargas. 02/04 worsening function. Will consult Dr. Roy Qualifiers: Chronic kidney disease stage: stage 3 (moderate) Chronic kidney disease stage 3 subtype: stage 3b (GFR 30-44) (5) CAD (coronary artery disease) Current Visit: Yes Status: Acute Plan: continue imdur and carvedilol (6) Troponin level elevated Current Visit: No Status: Acute (7) HTN (hypertension) Current Visit: No Status: Chronic Plan: continue imdur. Will add prn hydralazine. May consider restarting his amlodipine. Qualifiers: Hypertension type: primary hypertension - Plan plans for snf tomorrow. Patient has better cardiopulmonary activity and kidney function. Will discharge on entresto and lasix. We may be able to d/c the lasix in a month if he continues to improve. Physician Review: Patient Assessed, Agree with Above Assessment and Plan
[2022-02-09 15:53] VITALS: TEMP 97
--- NOTE | 2022-02-09 17:42 | P.PN ---
Date of Service: 02/09/22 Patient called wanting us to keep him one more day. States the snf and insurance would approve him tomorrow. Would be inappropriate to keep him an extra night. She also state we called hospice. I was suprised to find out that a hospice worker came on Tuesday Claiming to be called by his daughter. The states that this must be the girl he is sleeping with. I'm not sure what to do about that. We would not order hospice for a stable patient. Explained that the insurance made an evaluation on his nursing and PT notes. Deemed him not appropriate. She accused me of telling them he 100%. I have not spoken with Mrs Connor mallory. Will discharge him with home health. He has a coupon for the 30 day entresto. Will have him call the office or come by for samples if he can't get them
[2022-02-09 17:46] VITALS: BP 105/46
--- NOTE | 2022-02-09 19:23 | P.PN ---
Date of Service: 02/09/22 Vital Signs Temp Pulse Resp BP Pulse Ox 97 F 71 25 H 105/46 L 99 02/09/22 12:00 02/09/22 16:00 02/09/22 16:00 02/09/22 16:00 02/09/22 10:15 Microbiology Results 02/03/22 16:39 Blood - Blood Aerobic Blood Culture - Final No growth in 5 days. 02/03/22 16:39 Blood - Blood Anaerobic Blood Culture - Final No growth in 5 days. 02/03/22 17:12 Blood - Blood Aerobic Blood Culture - Final No growth in 5 days. 02/03/22 17:12 Blood - Blood Anaerobic Blood Culture - Final No growth in 5 days. Assessment/ Plan: Nephrology No dyspnea No chest pain No acute events overnight Vitals, medications, blood work and imaging reviewed in the chart. NAD. NCAT. MMM. Neck supple. Normal respiratory effort. RRR. Abd ND. No C/C/E. No rash. AAO. Normal speech. MEHREEN likely CRS CKD III -No NSAIDs -Lasix 40mg PO BID Hyponatremia -Continue furosemide HTN with CKD -Continue Entresto Diastolic CHF, A/C -Low sodium diet -Lasix 40mg PO BID -Continue Entresto IFG A1C 6.3 -No sugar diet -RISS Moderate malnutrition -Encourage nutrition Cigarette smoker with underlying vascular disease -Recommend tobacco cessation
== END 2022-02-09 18:10 | DRG 291 ==
LOC: ER 16:13 → ERHOLD 17:45 → 3RD-ICU 22:25
PROVIDERS: ADMIT Internal Medicine; ATTEND Internal Medicine
PROC: 5A09357 Assistance with Respiratory Ventilation, Less than 24 Consecutive Hours, Continuous Positive Airway Pressure (ICD-10-PCS; principal; 2022-02-03)
PROC: 5A0935A Assistance with Respiratory Ventilation, Less than 24 Consecutive Hours, High Flow/Velocity Cannula (ICD-10-PCS; 2022-02-04)
DX: I13.0 Hypertensive heart and chronic kidney disease with heart failure and stage 1 through stage 4 chronic kidney disease, or unspecified chronic kidney disease (principal); I50.33 Acute on chronic diastolic (congestive) heart failure; J18.9 Pneumonia, unspecified organism; J96.22 Acute and chronic respiratory failure with hypercapnia; J96.21 Acute and chronic respiratory failure with hypoxia; J44.1 Chronic obstructive pulmonary disease with (acute) exacerbation; N17.9 Acute kidney failure, unspecified; E87.1 Hypo-osmolality and hyponatremia; J44.0 Chronic obstructive pulmonary disease with (acute) lower respiratory infection; N18.32 Chronic kidney disease, stage 3b; I25.10 Atherosclerotic heart disease of native coronary artery without angina pectoris; R77.8 Other specified abnormalities of plasma proteins; E78.5 Hyperlipidemia, unspecified; E87.5 Hyperkalemia; F17.210 Nicotine dependence, cigarettes, uncomplicated; Z20.822 Contact with and (suspected) exposure to COVID-19
CPT/HCPCS: 36415; 71045; 80048; 80053; 80202; 81001; 82805; 82947; 83605; 83735; 83880; 84132; 84484; 85025; 85610; 87040; 93005; 94002; 94003; 94660; 96365; 96375; 97116; 97161; 99284; J0692; J1100; J1650; J1815; J1940; J3370; J7040; J7050; J8540; U0003

== ENCOUNTER 2022-05-10 22:33 | Inpatient (IN) | payer MEDICARE ==
--- OUTSIDE RECORDS SUMMARY | 2022-05-10 22:38 | XMS REPORT | Continuity of Care Document ---
:1950 Author Organization [facility] t Address [address] [place] [address] Care Team Providers Name Role Phone Pcp, Patient Does Not Have A Primary Care Physician [id number] Doctor Unassigned, Filer Attending Clinician Unavailable Nyasia Wang RN Attending Clinician Unavailable FELICIA GOSS Attending Clinician Unavailable Felicia Spencer Attending Clinician Osbaldo Aguiar MD Attending Clinician Corwin Walden DO Attending Clinician Jagdeep Fagan MD Attending Clinician Carmelo Licona MD Attending Clinician CARMELO LICONA Attending Clinician Unavailable Logan Liu MD Attending Clinician LUPE MILLER Attending Clinician Unavailable Haven Ortiz RN Attending Clinician Unavailable JEN ALONZO Attending Clinician Unavailable Jen Alonzo MD Attending Clinician Juventino Smith MD Attending Clinician Rickie Cheng MD Attending Clinician RICKIE CHENG Attending Clinician Unavailable HARDEEP LAU Attending Clinician Unavailable Hardeep Lau MD Attending Clinician PASTORA LOPEZ Attending Clinician Unavailable THANG FRANCIS M.D. Attending Clinician Unavailable PASTORA LOPEZ M.D. Attending Clinician Unavailable Jagdeep Fagan MD Admitting Clinician JAGDEEP FAGAN Admitting Clinician Unavailable JEN ALONZO Admitting Clinician Unavailable Payers Payer Name Policy Type Policy Number Effective Date Expiration Date S ource [employer] [id number] 2020 (MEDICARE 00:00:00 REPLACEMENT HMO) [employer] MGD [id number] 2020 MCR 00:00:00 Problems Condition Condition Condition Status Onset Resolution Last Treating Co mments Source Name Details Category Date Date Treatment Clinician Date Dyspnea, Dyspnea, Disease Active Unive rs unspecifie unspecifie 8-21 it y of d type d type 00:00: [place] 00 Medical Branch 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 Active 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: [place] congestive congestive 00 Me dical heart heart Branch failure failure Hyperkalem Hyperkalem Disease Active U nivers ia ia 8-21 ity of 00:00: [place] 00 Medical Branch 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 Tachycardi Tachycardi Disease Active U nivers a a 8-21 ity of 00:00: [place] 00 Medical Branch Hypertensi Hypertensi Disease Active [facility] emergency [facility] 00 Center 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 Active [facility] chronic [facility] 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: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Center 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 Pulmonary Pulmonary Disease Active [facility] edema edema 5-16 [facility] 00:[facility]: Medical 00 Center Demand Demand Disease Active [facility] ischemia ischemia 5-16 [facility] 00:[facility]: Medical 00 Center MEHREEN (acute MEHREEN (acute Disease Active [facility] kidney kidney 5-16 [facility] injury) injury) 00:00: Medical 00 Center Acute Acute Disease Active [facility] respirator respirator 5-15 Yadira kes y failure y failure 00:00: Medi south with with 00 Center hypercapni hypercapni a a Ath[facility] Ath[facility]cl Problem Active [facility] 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 Food 2022-02-22 2022-02-22 1 Univers ity of Worry 00:00:00 00:00:00 [place] [facility] History [facility] Food 2022-02-22 2022-02-22 1 Univers ity of Scarcity 00:00:00 00:00:00 [facility] Branch History [facility] 2022-02-22 2022-02-22 2 University o f Transport Med 00:00:00 00:00:[address] [facility] Branch History [facility] 2022-02-22 2022-02-22 2 University o f Transport Non-Med 00:00:00 00:00:00 [facility] Exposure to 2022-02-10 2022-02-20 Not sure University of SARS-CoV-2 (event) 00:00:00 18:56:00 [facility] Cigarettes smoked 2022-02-14 2022-02-14 Univers ity of current (pack per 00:00:00 00:00:00 [facility] ) - Reported Branch Cigarette 2022-02-14 2022-02-14 University of pack-years 00:00:00 00:00:00 [facility] Tobacco use and 2021-11-10 2021-11-[address] Yadira kes exposure 00:00:00 00:00:00 [facility] Alcohol intake 2021-11-10 2021-11-10 Ex-drinker [facility] 00:00:00 00:00:00 (finding) [facility] History of tobacco 2021-10-25 Passive smoker Un iversity of use 00:00:00 [facility] Sex Ass[birth year] ALEXEI Vilchis 00:00:00 00:00:00 Medical Center Smoking Status Start Date Stop Date Source Smokes tobacco daily [facility] (finding) Ex-smoker 2022-02-14 00:00:00 2022-02-14 00:00:00 Universi ty [facility] Medications Ordered Filled Start Stop Current Ordering Indication Dosage Frequency Signature Comments Components Source Medication Medication Date Date Medication? Clinician (SIG) Name Name azithromyci Yes [id number] 500mg Take 1 Univers n 500 mg 8-27 tablet by ity of tablet 00:00: mouth in [place] the Medical morning. Branch furosemide Yes [id number] 40mg Take 1 Univers 40 mg 8-27 tablet by ity of tablet 00:00: mouth in [place] the Medical morning. Branch azithromyci Yes [id number] 500mg Take 1 Univers n 500 mg 8-27 tablet by ity of tablet 00:00: mouth in [place] the Medical morning. Branch furosemide 2021- Yes [id number] 40mg Take 1 Univers 40 mg 8-27 tablet by ity of tablet 00:00: mouth in [place] the Medical morning. Branch azithromyci Yes [id number] 500mg Take 1 Univers n 500 mg 8-27 tablet by ity of tablet 00:00: mouth in [place] the Medical morning. Branch furosemide 2021-0 Yes [id number] 40mg Take 1 Univers 40 mg 8-27 tablet by ity of tablet 00:00: mouth in [place] the Medical morning. Branch azithromyci 0 Yes [id number] 500mg Take 1 Univers n 500 mg 8-27 tablet by ity of tablet 00:00: mouth in [place] the Medical morning. Branch furosemide 2021-0 Yes [id number] 40mg Take 1 Univers 40 mg 8-27 tablet by ity of tablet 00:00: mouth in [place] the Medical morning. Branch azithromyci 2021-0 Yes [id number] 500mg Take 1 Univers n 500 mg 8-27 tablet by ity of tablet 00:00: mouth in [place] [address] the Medical morning. Branch furosemide Yes [id number] 40mg Take 1 Univers 40 mg 8-27 tablet by ity of tablet 00:00: mouth in [place] 00 the Medical morning. Branch aspirin 81 2021- Yes [id number] 81mg Take 1 Univers mg chewable 8-27 - tablet by it y of tablet 00:00: 04:59 mouth in [place] 00 :00 the Medical morning Branch for 30 days. clopidogreL 2021- Yes [id number] 75mg Take 1 Univers 75 mg 8-27 - tablet by ity of tablet 00:00: 04:59 mouth in [place] 00 :00 the Medical morning Branch for 30 days. Fluticasone 2021- Yes [id number] 1{puff} Inhale 1 Univers -Salmeterol 8-23 03- Puff every i ty of 100-50 00:00: 04:59 12 [place] mcg/dose 00 :00 (twelve) Medical inhalation hours for Bran ch disk 30 days. rosuvastati 2021- Yes [id number] 20mg Take 1 Univers n 20 mg 8-23 03- tablet by ity of tablet 00:00: 04:59 mouth at [place] 00 :00 bedtime Medical for 30 Branch days. aspirin 81 2021- Yes [id number] 81mg Take 1 Univers mg chewable 8-03-23 tablet by it y of tablet 00:00: 04:59 mouth in [place] 00 :00 the Medical morning Branch for 30 days. clopidogreL 2021- Yes [id number] 75mg Take 1 Univers 75 mg 8-27 - tablet by ity of tablet 00:00: 04:59 mouth in [place] 00 :00 the Medical morning Branch for 30 days. Fluticasone 2021- Yes [id number] 1{puff} Inhale 1 Univers -Salmeterol 8-23 03- Puff every i ty of 100-50 00:00: 04:59 12 [place] mcg/dose 00 :00 (twelve) Medical inhalation hours for Bran ch disk 30 days. rosuvastati 2021- Yes [id number] 20mg Take 1 Univers n 20 mg 8-27 - tablet by ity of tablet 00:00: 04:59 mouth at [place] 00 :00 bedtime Medical for 30 Branch days. aspirin 81 2021- Yes [id number] 81mg Take 1 Univers mg chewable 02-20 tablet by it y of tablet 00:00: 04:59 mouth in [place] 00 :00 the Medical morning Branch for 30 days. clopidogreL 2021- Yes [id number] 75mg Take 1 Univers 75 mg 8-03-23 tablet by ity of tablet 00:00: 04:59 mouth in [place] 00 :00 the Medical morning Branch for 30 days. Fluticasone 2021- Yes [id number] 1{puff} Inhale 1 Univers -Salmeterol 02-20 Puff every i ty of 100-50 00:00: 04:59 12 [place] mcg/dose 00 :00 (twelve) Medical inhalation hours for Bran ch disk 30 days. rosuvastati 2021- Yes [id number] 20mg Take 1 Univers n 20 mg 02-20 tablet by ity of tablet 00:00: 04:59 mouth at [place] 00 :00 bedtime Medical for 30 Branch days. aspirin 81 2021- Yes [id number] 81mg Take 1 Univers mg chewable 02-20 tablet by it y of tablet 00:00: 04:59 mouth in [place] 00 :00 the [facility] morning [place] for 30 days. clopidogreL 2021- Yes [id number] 75mg Take 1 Univers 75 mg 02-20 tablet by ity of tablet 00:00: 04:59 mouth in [place] 00 :00 the Medical morning [place] for 30 days. Fluticasone 2021- Yes [id number] 1{puff} Inhale 1 Univers -Salmeterol 02-20 Puff every i ty of 100-50 00:00: 04:59 12 [place] mcg/dose 00 :00 (twelve) Medical inhalation hours for Bran ch disk 30 days. rosuvastati 2021- Yes [id number] 20mg Take 1 Univers n 20 mg 02-20 tablet by ity of tablet 00:00: 04:59 mouth at [place] 00 :00 bedtime Medical for 30 Branch days. lactobacill 2022- No 1{capsu QD Take [address] [facility] us 5-20 05-20 le} capsule by [facility] rhamnosus, 00:00: 23:59 mouth Medic al GG, 00 :00 daily. [place] ([facility] ) 10 billion cell capsule amLODIPine 2021- No 10mg QD Take [address] (NORVASC) 5-20 -18 tablet (10 Sally es 10 MG 00:00: 23:59 mg total) Medica l tablet 00 :00 by mouth Center daily for 90 days. aspirin 81 2021- No 81mg QD Take [address] MG chewable 5-20 -18 tablet (81 L ukes tablet 00:00: 23:59 mg total) Medic al 00 :00 by mouth Center daily for 90 days. lisinopriL Yes 40mg QD Take [address] (PRINIVIL,Z 5-19 by mouth Luke s ESTRIL) 40 20:45: daily. Medic al MG tablet 02 Center carvediloL Yes 6.25mg Take 6.[address] (COREG) 5-19 mg by [facility] 6.25 MG 20:45: mouth 2 Medical tablet 02 (two) Center times daily with breakfast and dinner. predniSONE 2021- No 10mg Q.5D Take [address] [facility] (DELTASONE) 5-19 05-19 by mouth 2 L ukes 10 MG 16:04: 00:00 (two) Medical tablet 36 :00 times Center daily. amLODIPine 2021- No 5mg QD Take [address] (NORVASC) 5 -19 05-19 by mouth Sally es MG tablet 16:04: 00:00 daily. Medic al 36 :00 Center acetaminoph 2022- No 650mg Take [address] en - 05-14 tablets [facility] (TYLENOL) 00:00: 23:59 (650 mg Medi south 325 MG 00 :00 total) by Center tablet mouth every 6 (six) hours as needed for up to 360 days. ipratropium 2022- No 3mL Take [address] -albuteroL -19 05-14 by [facility] (DUO-NEB) 00:00: 23:59 nebulizati M edical 0.5 mg-3 00 :00 on every 6 Cente r mg(2.5 mg (six) base)/3 mL hours as nebulizer needed for solution Wheezing for up to 360 days. apixaban 2021- No 5mg Q.5D Take [address] (ELIQUIS) 5 11-12 08-17 tablet (5 Yadira kes mg Tab 00:00: 23:59 mg total) Medic al tablet 00 :00 by mouth 2 Center (two) times daily for 90 days. bumetanide 2021- No 1mg Take [address] [facility] [facility] (BUMEX) 1 11-12 06-18 tablet (1 Luke s MG tablet 00:00: 23:59 mg total) Me dical 00 :00 by mouth 2 Center (two) times daily for 30 days. predniSONE 2021- No Take [address] (DELTASONE) 11-12-31 tablets Luke s 10 MG 00:00: 23:59 (40 mg Medical tablet 00 :00 total) by Center mouth daily for 3 days, THEN 3 tablets (30 mg total) daily for 3 days, THEN 2 tablets (20 mg total) daily for 3 days, THEN 1 tablet (10 mg total) daily for 3 days. dextrometho 2021- No 5mL Take [address] rphan-guaif 11-12 by mouth Sally es enesin 00:00: 23:59 every 4 Medical (ROBITUSSIN 00 :00 (four) Center -) 10-100 hours as mg/5 mL needed for liquid up to 10 days. amoxicillin 2021- No 1{tbl} Q.5D Take [address] -clavulanat 11-12 tablet by Yadira kes e 00:00: 23:59 mouth 2 Medical (AUGMENTIN) 00 :00 (two) Center 875-125 mg times per tablet daily for 3 days. lisinopriL 2021- Yes [id number] 10mg Take 1 Univers 10 mg 4-17 tablet by ity of tablet 00:00: mouth at [place] [address] bedtime. Medical Branch metoprolol 2021- Yes [id number] 25mg Take 1 Univers tartrate 25 4-17 tablet by ity of mg tablet 00:00: mouth 2 [place] [address] (two) Medical times Branch daily. lisinopriL Yes [id number] 10mg Take 1 Univers 10 mg 4-17 tablet by ity of tablet 00:00: mouth at [place] [address] bedtime. Medical Branch metoprolol Yes [id number] 25mg Take 1 Univers tartrate 25 4-17 tablet by ity of mg tablet 00:00: mouth 2 [place] (two) Medical times Branch daily. lisinopriL Yes [id number] 10mg Take 1 Univers 10 mg 4-17 tablet by ity of tablet 00:00: mouth at [place] [address] bedtime. Medical Branch metoprolol Yes [id number] 25mg Take 1 Univers tartrate 25 4-17 tablet by ity of mg tablet 00:00: mouth 2 [place] (two) Medical times Branch daily. lisinopriL Yes [id number] 10mg Take 1 Univers 10 mg 4-17 tablet by ity of tablet 00:00: mouth at [place] [address] bedtime. Medical Branch metoprolol Yes [id number] 25mg Take 1 Univers tartrate 25 4-17 tablet by ity of mg tablet 00:00: mouth 2 [place] (two) Medical times Branch daily. lisinopriL Yes [id number] 10mg Take 1 Univers 10 mg 4-17 tablet by ity of tablet 00:00: mouth at [place] [address] bedtime. Medical Branch metoprolol Yes [id number] 25mg Take 1 Univers tartrate 25 4-17 tablet by ity of mg tablet 00:00: mouth 2 [place] (two) Medical times Branch daily. Spiriva Spiriva 2019-06 Yes SULEMA INHALE TWO [facility] Respimat Respimat 0-12 ANETA (2) PUFFS Physici 2.5 MCG/ACT 2.5 MCG/ACT [...] TABLET Physici Tablet Tablet 00:00: DAILY ans Simvastatin Simvastatin 2011-06 Yes MARK 1 [...] cm 04:00:00 WEIGHT 2021-11-08 82 kg 04:00:00 Heart rate 2021-11-12 60 /min [facility] 19:40:00 [facility] Center Respiratory rate 2021-11-12 18 /min [facility] 19:40:00 Medical Center Oxygen saturation 2021-11-12 99 /min ALEXEI Read es in Arterial blood 19:40:00 Medical nter by Pulse oximetry Systolic blood 2021-11-12 137 mm[Hg] [facility] pressure 16:00:00 Medical Center Diastolic blood 2021-11-12 83 mm[Hg] [facility] pressure 16:00:00 [facility] Body temperature 2021-11-[address] [facility] 16:00:00 [facility] Body weight 2021-11-[address] [facility] 04[facility]18:00 [facility] BMI 2021-11-11 24.37 kg/m2 [facility] 04:18:00 [facility] Body height 2021-11-[address] [facility] 04:48:00 [facility] Systolic blood 2020-04-16 141 mm[Hg] Location: LUE; [place] [facility] pressure 07:34:00 Position: Sitting Diastolic blood 2020-04-16 60 mm[Hg] Location[place]; [place] [facility] pressure 07:34:00 Position: Sitting Weight 2020-04-16 173.125 [lb_av] [facility] 07:34:00 Body mass index 2020-04-16 22.23 kg/m2 [facility] (BMI) [Ratio] 07:34:00 Body temperature 2020-04-16 97.2 [degF] Method: [place] [facility] 07:34:00 Tympanic Heart Rate 2020-04-16 59 /min Location: L [place] [facility] 07:34:00 Radial; Quality: Normal O2 SAT 2020-04-16 95 % Source: [place] [facility] 07:34:00 Non-Rebreather O2 SAT 2020-04-07 97 % Source: [place] [facility] 14:12:00 Systolic blood 2020-04-07 137 mm[Hg] Location: RUE; [place] [facility] pressure 14:12:00 Position: Sitting Diastolic blood 2020-04-07 74 mm[Hg] Location: RUE; [place] [facility] pressure 14:12:00 Position: Sitting Body height 2020-04-07 74 [in_us] [facility] 14:12:00 Weight 2020-04-07 171 [lb_av] [facility] 14:12:00 Body mass index 2020-04-07 21.96 kg/m2 [facility] (BMI) [Ratio] 14:12:00 Body temperature 2020-04-07 97.8 [degF] [facility] 14:12:00 Heart Rate 2020-04-07 54 /min [facility] 14:12:00 Respiratory rate 2020-04-07 18 /min [facility] 14:12:00 Procedures Procedure Date / Time Performing Clinician Source Performed ASSIGNMENT OF BENEFITS 2022-03-31 22:21:39 Doctor Unassigned, No [facility] Name Medical Branch AUTHORIZATION FOR 2022-03-02 05:01:00 Doctor Unassigned, No [facility] RELEASE OF [facility] Medical Branch AUTHORIZATION FOR 2022-02-26 05:01:00 Doctor Unassigned, No [facility] RELEASE OF [facility] Medical Branch AUTHORIZATION FOR 2022-02-22 05:01:00 Doctor Unassigned, No [facility] POCT-GLUCOSE METER 2021-11-12 15:41:00 Davis [facility] POCT-GLUCOSE METER 2021-11-12 11:18:[facility] 2021-11-12 06:33:00 Davis [facility] CBC W/PLT COUNT & AUTO 2021-11-12 04:33:00 [facility] Juventino C [facility] DIFFERENTIAL [place] CBC W/PLT COUNT & AUTO 2021-11-12 04:33:00 [facility] Juventino C [facility] BASIC METABOLIC PANEL 2021-11-12 04:[facility] MAGNESIUM 2021-11-12 04:33:00 Juventino Smith [facility] POCT-GLUCOSE METER 2021-11-11 21:38:00 Davis [facility] POCT-GLUCOSE METER 2021-11-11 16:31:00 [facility] PO[facility]UCOSE METER 2021-11-11 11:33:00 Davis [facility] NM MYOCARDIAL PERFUSION 2021-11-11 11:00:00 Paul [facility] SPECT, PHARM(LEXISCAN) Center ECG 12-LEAD 2021-11-11 09:26:30 Lupe Miller [facility] POCT-GLUCOSE METER 2021-11-11 06:42:00 Juventino Smith [facility] XR CHEST 1 VIEW PORTABLE 2021-11-11 05:48:00 Robb Reina [facility] / BEDSIDE Center CBC W/PLT COUNT & AUTO 2021-11-11 04:06:00 Juventino Smith [facility] CBC W/PLT COUNT & AUTO 2021-11-11 04:06:00 SarahJuventino [facility] BASIC METABOLIC PANEL 2021-11-11 04:06:00 [facility] MAGNESIUM 2021-11-11 04:06:00 Juventino Smith [facility] POCT-GLUCOSE METER 2021-11-10 20:48:00 Juventino Smith [facility] POCT-GLUCOSE METER 2021-11-10 15:39:00 Juventino Smith [facility] POCT-GLUCOSE METER 2021-11-10 11:33:00 Juventino Smith [facility] CBC W/PLT COUNT & AUTO 2021-11-10 06:58:00 Cheri [facility] BASIC METABOLIC PANEL 2021-11-10 06:58:00 Cheri [facility] HEPATIC FUNCTION PANEL 2021-11-10 06:58:00 Cheri [facility] CBC W/PLT COUNT & AUTO 2021-11-10 06:58:00 Cheri [facility] POCT-GLUCOSE METER 2021-11-10 06:54:00 Juventino Smith [facility] POCT-GLUCOSE METER 2021-11-09 21:49:00 Juventino Smith [facility] POCT-GLUCOSE METER 2021-11-09 16:10:00 Juventino Smith [facility] POCT-GLUCOSE METER 2021-11-09 12:19:00 Juventino Smith [facility] VENOUS DOPPLER LEGS 2021-11-09 10:33:00 Velma [facility] BILATERAL Center XR CHEST 1 VIEW PORTABLE 2021-11-09 07:32:00 Velma Bustamante [facility] / BEDSIDE Center POCT-GLUCOSE METER 2021-11-09 07:22:00 Juventino Smith [facility] CBC W/PLT COUNT & AUTO 2021-11-09 04:06:00 Cheri [facility] BASIC METABOLIC PANEL 2021-11-09 04:06:00 Cheri [facility] HEPATIC FUNCTION PANEL 2021-11-09 04:06:00 Cheri [facility] CBC W/PLT COUNT & AUTO 2021-11-09 04:06:00 Cheri [facility] HC LAB HIV-1 AG 2021-11-09 04:06:00 Hector Gaspar [facility] W/HIV-1&2 AB [facility] HEPATITIS PANEL, ACUTE 2021-11-09 04:06:00 Hector Gaspar I [facility] HEMOGLOBIN A1C 2021-11-09 04:06:00 Hector Gaspar [facility] APTT 2021-11-09 04:06:00 Cheri [facility] TROPONIN I 2021-11-09 00:21:00 Cheri [facility] ECG 12-LEAD 2021-11-08 21:26:59 Unknown, Hl7 [facility] POCT-GLUCOSE METER 2021-11-08 20:43:00 Juventino Smith [facility] APTT 2021-11-08 19:42:00 Cheri [facility] TROPONIN I 2021-11-08 16:28:00 Cheri [facility] GLUCOSE 2021-11-08 16:27:00 Juventino Smith [facility] SPUTUM CULTURE + GRAM 2021-11-08 15:33:00 Guera Yarbrough [facility] US RENAL COMPLETE 2021-11-08 12:14:00 Cheri [facility] POCT-GLUCOSE METER 2021-11-08 11:32:00 Juventino Smith [facility] APTT 2021-11-08 11:22:00 Cheri, [facility] TROPONIN I 2021-11-08 11:22:00 Cheri [facility] BASIC METABOLIC PANEL 2021-11-08 11:22:00 Simona Resnick [facility] 2D ECHO W/ DOPPLER 2021-11-08 10:36:38 Cheri [facility] (CW/PW/COLOR) [place] CT CHEST WITHOUT IV 2021-11-08 09:34:00 Cheri [facility] CONTRAST Center NM LUNG PERFUSION SCAN 2021-11-08 09:20:00 Cheri [facility] XR CHEST 1 VIEW PORTABLE 2021-11-08 08:23:00 Simona [facility] / BEDSIDE Center APTT 2021-11-08 05:53:00 Cheri [facility] LACTIC ACID, VENOUS 2021-11-08 05:07:00 Jen Alonzo [facility] STREP PNEUMONIAE ANTIGEN 2021-11-08 04:17:00 Jen Alonzo [facility] URINALYSIS WITH 2021-11-08 04:16:00 Cheri [facility] MICROSCOPIC IF INDICATED Center URINALYSIS MICROSCOPIC 2021-11-08 04:16:00 Cheri [facility] TROPONIN I 2021-11-08 04:07:00 Cheri [facility] BLOOD CULTURE 2021-11-08 04:02:00 Cheri [facility] POCT-GLUCOSE METER 2021-11-08 04:00:00 Cheri [facility] PROCALCITONIN 2021-11-08 03:59:00 Cheri [facility] CBC W/PLT COUNT & AUTO 2021-11-08 03:58:00 Cheri [facility] BASIC METABOLIC PANEL 2021-11-08 03:58:00 Cheri [facility] HEPATIC FUNCTION PANEL 2021-11-08 03:58:00 Cheri [facility] HEMOGLOBIN A1C 2021-11-08 03:58:00 Cheri [facility] PROTHROMBIN TIME/INR 2021-11-08 03:58:00 [facility] 2021-11-08 03:58:00 Cheri [facility] PHOSPHORUS 2021-11-08 03:58:00 Cheri [facility] CBC W/PLT COUNT & AUTO 2021-11-08 03:58:00 Cheri [facility] B-TYPE NATRIURETIC 2021-11-08 03:58:00 Cheri [facility] (BNP) Center D-DIMER 2021-11-08 03:58:00 Cheri [facility] ECG 12-LEAD 2021-11-08 03:52:58 [facility] [place] [facility]IEW PORTABLE 2021-11-08 03:47:00 [facility] XR ABDOMEN/KUB 1 VIEW 2021-11-08 03:47:00 Cheri [facility] BLOOD GAS, ARTERIAL 2021-11-08 03:29:00 Cheri [facility] EKG-SCANNED 2021-11-08 00:00:00 Provider, Default [facility] Lung solitary 2020-04-07 00:00:00 [facility] [place] [place] [id number] Plan of Care Planned Activity Planned Date Details Comments Source Future Scheduled 2022-02-25 INFLUENZA VACCINE (#1) [facility] Test 00:00:00 [code = INFLUENZA Medical Ce nter VACCINE (#1)] Future Scheduled 2021-11-[address] [facility] Test 00:00:00 WELLNESS (YEAR 2 or Medical Center FIRST YEAR if no IPPE) [code = MEDICARE ANNUAL WELLNESS (YEAR 2 or FIRST YEAR if no IPPE)] Future Scheduled 2021-06-[address] [facility] Test 00:00:00 (12+) [code = Medical Center DEPRESSION SCREENING (12+)] Future Scheduled 2021-06-27 FALLS RISK SCREENING [facility] Test 00:00:00 [code = FALLS RISK Medical C enter SCREENING] Diagnostic Test 2020-04-[address] [facility] Pending 00:00:00 pulm nodule 48894 [code = 52941] Diagnostic Test 2020-04-[address] Lung [facility] Pending 00:00:00 pulm nodule 41175 [code = 06959] Future Scheduled [address] [facility] Test 00:00:00 aneurysm screening Medical C enter (procedure) [code = 794255600] Future Scheduled 2002 SHINGLES VACCINES ([address] [facility] Test 00:00:00 of 2) [code = SHINGLES Medic al Center VACCINES (1 of 2)] Future Scheduled 1971 DTAP/TDAP/TD VACCINES [facility] Test 00:00:00 (1 - Tdap) [code = Medical C enter DTAP/TDAP/TD VACCINES (1 - Tdap)] Future Scheduled 1958 PNEUMOCOCCAL 65+ YRS [facility] Test 00:00:00 (1 - PCV) [code = Medical Ce nter PNEUMOCOCCAL 65+ YRS (1 - PCV)] Future Scheduled 1953-02-18 COVID-19 VACCINE (#1) [facility] Test 00:00:00 [code = COVID-[address] VACCINE (#1)] Future Scheduled [address] [facility] 00:00:00 (combo) [code = CT Medical C enter Colonography (combo)] Future Scheduled [address] [facility] Test 00:[facility]:00 malignant neoplasm of [facility] Center colon (procedure) [code = 363445516] Future Scheduled [address] [facility] Test 00:00:00 malignant neoplasm of [facility] colon (procedure) [code = 171916324] Future Scheduled [address] [facility] Test 00:00:00 malignant neoplasm of [facility] Center colon (procedure) [code = 928204640] Future Scheduled [address] [facility] Test 00:00:00 malignant neoplasm of [facility]ica [facility] Center colon (procedure) [code = 488621083] Future Scheduled 1950 Sigmoidoscopy [code = [facility] 00:[facility]] [facility] Start End Encounter Admission Attending Care Care Encounter Source Date/Time Date/Time Type Type Clinicians Facility Department ID 2022-03-31 2022-03-31 Orders Doctor CASTRO [id number] Univers 00:00:00 00:00:00 Only Unassigned, MARTHA 350.1.13.10 [facility] [place] [facility] 4.2.7.2.686 Rol[place] as [phone] [place] [address] Branch 2022-03-02 2022-03-02 Orders Doctor MATTHEW Rainey.2.840.114 [id number] Univers 00:00:00 00:00:00 Only Unassigned, MARTHA 350.1.13.10 [facility] [place] [facility] 4.2.7.2.686 Rol[place] as [phone] [facility] 009 Branch 2022-02-26 2022-02-26 Orders Doctor MATTHEW Mathew2.840.114 [id number] Univers 00:00:00 00:00:00 Only Unassigned, MARTHA 350.1.13.10 [facility] [place] [facility] 4.2.7.2.686 Rolando as [id number] [facility] 009 Branch 2022-02-23 2022-02-23 Transition ENE Wang 1.2.840.114 [id number] Univers 00:00:00 00:00:00 of Care Nyasia REDDINGY 350.1.13.10 [place] [phone] [facility] 403 Branch 2022-02-22 2022-02-22 Transition ENE Wang 1.2.840.114 [id number] Univers 00:00:00 00:00:00 of Care Nyasia REDDINGY 350.1.13.10 [place] [phone] [facility] 403 [address] 2022-02-22 2022-02-22 Orders Doctor MATTHEW 1.2.840.114 [id number] Univers 00:00:00 00:00:00 Only Unassigned, MARTHA 350.1.13.10 it[place] of [place] [facility] 4.2.7.2.686 [place] as [phone] [facility] 009 Branch 2022-02-20 2022-02-20 Emergency X [facility] ERT [id number] Univers 18:53:00 20:00:00 FELICIA iraj gomez f [facility] 2022-02-20 2022-02-20 Emergency [facility] 1.2.840.114 [id number] Univers 18:53:00 20:00:00 [facility] 350.1.13.10 [place] [id number] [facility] 014 Branch (CLC) 2022-02-20 2022-02-20 Emergency X [facility] ERT [id number] Univers 18:53:00 20:00:00 FELICIA iraj o f [facility] 2022-02-14 2022-02-20 Hospital Osbaldo Aguiar [facility] 1.2.840.1 [id number] Univers 14:51:00 17:13:00 Encounter Corwin Walden 350.1.13.10 ity of [place] 4.2.7.2.686 T Carmelo Foster [phone] [facility] 113 Branch ([facility]) 2022-02-14 2022-02-20 Inpatient X [facility] [id number] Univers 14:51:00 17:13:00 CARMELO galo [facility] 2022-02-17 2022-02-17 Surgery Alexa [facility] 1.2.840.114 [id number] Univers 09:00:00 11:00:00 [facility] 350.1.13.10 it y of [place] 4.2.7.2.686 [facility] [id number] [place] [id number] Branch ([facility]) 2022-01-08 2022-01-08 [place] [id number] [place]oted 07:10:00 07:10:00 0715 Medica l Group 2021-12-09 2021-12-09 Outpatient FAYE PAUL, SLE SLE [id number] SLE 00:00:00 00:00:00 LUPE 2021-12-08 2021-12-08 Telephone Haven Ortiz [facility] [id number] [facility] 00:[facility] [facility] 2021-11-08 2021-11-12 [facility] Cheri, Jen Richardsonam [facility] [id number] [facility] St 03:10:00 20:10:00 Encounter Juventino Smith [facility] 2021-11-08 2021-11-12 Inpatient ER DAVIS, [facility] Medical ICU [id number] [facility] 03:10:00 20:10:00 RICKIE 2021-11-10 2021-11-10 Travel [facility] [id number] [facility] 00[facility]00 [facility] 2021-10-11 2021-10-11 Emergency X [facility] ERT [id number] Univers 05:52:00 06:48:00 HARDEEP galo [facility] 2021-10-11 2021-10-11 Emergency [facility] [id number] Univers 05:52:00 06:48:00 Hardeep RUSSELL 350.1.13.10 ity of [place] 4.2.7.2.686 [facility] [phone] [facility] 084 Branch 2020-11-21 2020-11-21 Outpatient DMG DMG [id number] 021 Devoted 08:00:00 08:00:00 0528 Medica l Group 2020-05-05 2020-05-05 Outpatient JOHN, [facility] PUL 7500 [facility] 13:21:00 15:55:00 PASTORA 2020-04-15 2020-04-15 AppointDOLLY [facility] [id number] [place] 14:00:00 14:00:00 t; Carlos DESIR - [facility] Derick Will ans Carlos DESIR [place] 2020-04-07 2020-04-07 Appointmen DOLLY LOPEZ Pulmonary & [id number] [place] 13:30:00 13:30:00 t; PASTORA LOPEZ, Sleep Physi ci Carlos GUILLORY M.D. Results Test Description Test Time Test Comments Results Result Comments Source BLOOD CULTURE 2021-11-13 07:00:32 Test Item Value Reference Range Interpretation Comme nts CULTURE (BEAKER) (test code = 1095) No growth in 5 days BLOOD [id number] 07:00:32 Test Item Value Reference Range Interpretation Comments CULTURE (BEAKER) (test No growth in 5 days code = 1095) POC-Glucose [id number] 16:01:13 Test Item Value Reference Range Interpretation Comments POC-Glucose Meter (test 136 mg/dL 70-110 H : TE STED AT [facility] code = 1538) [address] [facility] [address]: Olericulturist/Techni brook[place] ID = [id number] for Castaneda, Martina cherry Lab Interpretation (test Abnormal code = 68428-6) [facility] [id number] 16:01:13 Test Item Value Reference Range Interpretation Comments POC-GLUCOSE METER 136 mg/dL 70-110 H : TESTED A T [facility] 1317 (BEAKER) (test code [address] [facility], = 1538) [facility] 77 478: Olericulturist/Techni brook[place] ID = [id number] for Cerv antes, Crystal POCT-GLUCOSE [id number] 11:30:14 Test Item Value Reference Range Interpretation Comments POC-GLUCOSE METER 112 mg/dL 70-110 H : TESTED A T [facility] [address]17 (BEAKER) (test code [address], = 1538) [facility] 77 478: Olericulturist/Techni brooklyn ID = [id number] for Shazia Scott POCT-GLUCOSE [id number] 06:45:43 Test Item Value Reference Range Interpretation Comments POC-GLUCOSE METER 150 mg/dL 70-110 H : TESTED A T [facility] [address]17 (BEAKER) (test code [address], = 1538) [facility] 77 478: Olericulturist/Techni brooklyn ID = [id number] for Taina Poe [id number] 06:05:04 Test Item Value Reference Range Interpretation Comments MAGNESIUM (BEAKER) (test code = 2.2 mg/dL 1.5-3.0 627) Olericulturist ID - [id number] ID - [id number] ID - JLOVMZBFG114Fzeobwrn ID - [id number] METABOLIC [id number] 06:04:06 Test Item Value Reference Range Interpretation [...] 1092) DATA TO CALCULA TE ESTIMATED GFR. Olericulturist ID - [id number] ID - [id number] ID - GTCXVFZPA426Zqerotdq ID - JLROWVBQS491Kjvpxiac ID - WKCJKEPHZ426Xspoecvv ID - ZUNPTIJJS952Utevxqyj ID - XKOZEGIFI586Ihvziqth ID - YMQOACELM984Clrsldfc ID - PEOIETROO483Qppxdxmg ID - [id number] W/PLT COUNT & AUTO DIFFERENTIAL 2021-11-12 05:53:41 [...] PERCENT (BEAKER) (test code = 2801) POCT-GLUCOSE [id number] 21:50:33 Test Item Value Reference Range Interpretation Comments POC-GLUCOSE METER 173 mg/dL 70-110 H : TESTED A T [facility] [address]17 (BEAKER) (test code [address], = 1538) [place] [address] 478: Olericulturist/Techni brooklyn ID = [id number] for Taina Poe POCT-GLUCOSE [id number] 16:45:23 Test Item Value Reference Range Interpretation Comments POC-GLUCOSE METER 134 mg/dL 70-110 H : TESTED A T [facility] [address] (BEAKER) (test code [address], = 1538) [place] [address] 478: Olericulturist/Techni brooklyn ID = [id number] for Dapr emont, Heather POCT-GLUCOSE [id number] 11:45:21 Test Item Value Reference Range Interpretation Comments POC-GLUCOSE METER 125 mg/dL 70-110 H : TESTED A T [facility] [address] (BEAKER) (test code [address], = 1538) [place] [address] 478: Olericulturist/Techni brooklyn ID = [id number] for Dapr emont, Heather Sputum Culture + Gram [id number] 08:54:21 Test Item Value Reference Range Interpretation Comments Result (test code = 4+ Normal respiratory 6463-4) luis eduardo present Gram Stain Result 3+ Mixed luis eduardo (test code = 1123) [facility]AM [id number] 08:54:21 Test Item Value Reference Range Interpretation Comments CULTURE (BEAKER) 4+ Normal respiratory (test code = 1095) luis eduardo present GRAM STAIN RESULT 1+ White blood cells (BEAKER) (test code = seen 1123) GRAM STAIN RESULT 1+ epithelial cells (BEAKER) (test code = 91860) GRAM STAIN RESULT 3+ Mixed luis eduardo (BEAKER) (test code = 26666) RAD, CHEST, 1 VIEW, NON [id number] 07:33:00Reason for exam:->PNA [facility] : 1950 Sex: MFINAL REPORT CHEST AP PORTABLE SEMIERECT Comparison exam: 11/09/2021 History provided: Pneumonia Heart size normal. Chronic pleural thickening at the right base. Lungs free of acute disease and vascularity normal. Signed: Carlos Navarro Verified Date/Time: 11/11/2021 07:33:28 Reading Location: [facility] Diagnostic Imaging Reading Room - [facility] 1310. POCT-GLUCOSE [id number] 06:54:14 Test Item Value Reference Range Interpretation Comments POC-GLUCOSE METER 133 mg/dL 70-110 H : TESTED A T [facility] 1317 (BEAKER) ([facility] [address], = 1538) [facility] 77 478: Olericulturist/Techni brooklyn ID = [id number] for Taina Poe [id number] 04:53:42 Test Item Value Reference Range Interpretation Comments MAGNESIUM (BEAKER) (test code = 2.3 mg/dL 1.5-3.0 627) Olericulturist ID - [id number] ID - [id number] ID - [id number] ID - [id number] BASIC METABOLIC [id number] 04:52:53 Test Item Value Reference Range Interpretation [...] 1092) DATA TO CALCULA TE ESTIMATED GFR. Olericulturist ID - [id number] ID - [id number] ID - vyzn18Ptfkzedh ID - sxjl48Esirhbzv ID - tjwb81Zwsirpmd ID - ybei15Qqmvpxbv ID - eswn42Fiiikqig ID - hntv42Ndroubar ID - tppu55Dwntzhdy ID - [id number] W/PLT COUNT & AUTO [id number] 04:28:30 Test Item Value Reference Range Interpretation [...] H PERCENT (BEAKER) (test code = 2801) 2D Echo W/Doppler(CW/PW/Color)2021-11-11 00:37:05[facility] MKCKESSON [facility] [id number] 20:59:54 Test Item Value Reference Range Interpretation Comments POC-GLUCOSE METER 148 mg/dL 70-110 H : TESTED A T [facility] [address] (BEAKER) (test code [address], = 1538) [place] [address] 478: Olericulturist/Techni brook[place] ID = [id number] for Brow n, Taina POCT-GLUCOSE [id number] 15:51:00 Test Item Value Reference Range Interpretation Comments POC-GLUCOSE METER 156 mg/dL 70-110 H : TESTED A T [facility] [address] (BEAKER) (test code [address], = 1538) [place] [address] 478: Olericulturist/Techni [place] ID = [id number] for Cerv antes, Crystal POCT-GLUCOSE [id number] 11:44:26 Test Item Value Reference Range Interpretation Comments POC-GLUCOSE METER 139 mg/dL 70-110 H : TESTED A T [facility] [address] (BEAKER) (test code [address], = 1538) [facility] [place] 77 478: Olericulturist/Techni brooklyn ID = [id number] for Shazia Scott BASIC METABOLIC [id number] 07:34:29 Test Item Value Reference Range Interpretation [...] 1092) DATA TO CALCULA TE ESTIMATED GFR. Olericulturist ID - DSENSONOperator ID - DSENSONOperator ID [...] (test code = 18 U/L 5-50 347) Olericulturist ID - DSENSONOperator ID - DSENSONOperator ID - DSENSONOperator ID - DSENSONOperator ID - DSENSONOperator ID - DSENSONOperator ID - DSENSONOperator ID - DSENSONOperator ID - DSENSONOperator ID - DSENSONCBC W/PLT COUNT & AUTO [id number] 07:19:24 Test Item Value Reference Range Interpretation [...] PERCENT (BEAKER) (test code = 2801) POCT-GLUCOSE [id number] 07:05:35 Test Item Value Reference Range Interpretation Comments POC-GLUCOSE METER 129 mg/dL 70-110 H : TESTED A T [facility] 1317 [facility] (test code [facility], = 1538) [place] [address] 478: Olericulturist/Techni brooklyn ID = [id number] for Anayeli ety, Ruth POCT-GLUCOSE [id number] 22:17:06 Test Item Value Reference Range Interpretation Comments POC-GLUCOSE METER 135 mg/dL 70-110 H : TESTED A T [facility] 1317 ([facility]) (test code [facility], = 1538) [place] [address] 478: Olericulturist/Techni [place] ID = [id number] for Anayeli ety, Ruth POCT-GLUCOSE [id number] 16:21:48 Test Item Value Reference Range Interpretation Comments POC-GLUCOSE METER 178 mg/dL 70-110 H : Notified RN/MD: TESTED ([facility]) (test code AT [facility] [address] = 1538) [place] [address]: Olericulturist/Techni brooklyn ID = [id number] for Alee Calderon HEPATITIS PANEL, [id number] 14:58:49 Test Item Value Reference Range Interpretation Comments HEPATITIS A IGM ANTIBODY (BEAKER) Nonreactive Nonreactive (test code = 498) HEPATITIS B CORE IGM ANTIBODY Nonreactive Nonreactive (BEAKER) (test code = 645) HEPATITIS C ANTIBODY (BEAKER) Nonreactive Nonreactive (test code = 367) HEPATITIS B SURFACE ANTIGEN (2) Nonreactive Nonreactive (BEAKER) (test code = 2585) Olericulturist ID - DBOperator ID - DBPOCT-GLUCOSE [id number] 12:30:38 Test Item Value Reference Range Interpretation Comments POC-GLUCOSE METER 184 mg/dL 70-110 H : Notified RN/MD: TESTED ([facility]) (test code AT [facility] [address] = 1538) [facility] [address]: Olericulturist/Techni brooklyn ID = [id number] for Francisco Javier anya Lorita VENOUS DOPPLER LEGS, [id number] 10:54:00Reason for exam:->DVT [facility] : 1950 Sex: MFINAL REPORT [...] thrombosis of the bilateral lower extremity. Signed: Jayden Chu MDReport Verified Date/Time: 11/09/2021 10:54:12 Reading Location: [facility] Radiology Reading Room RAD, CHEST, 1 VIEW, NON [id number] 09:00:00 Reason for exam:->PNAShould this be performed at the bedside?->Yes [facility] : 1950 Sex: MFINAL [...] and small right effusion are stable. Signed: Jayden ChuMDReport Verified Date/Time: 11/09/2021 09:00:23 Reading Location: [facility] Radiology Reading Room POCT-GLUCOSE [id number] 07:33:54 Test Item Value Reference Range Interpretation Comments POC-GLUCOSE METER 156 mg/dL 70-110 H : Notified RN/MD: TESTED ([facility]) (test code AT [address] POINT = 1538) [facility] [address]: Olericulturist/Techni brooklyn ID = [id number] for Alec Bush [id number] 05:00:02 Test Item Value Reference Range Interpretation Comments PARTIAL THROMBOPLASTIN 111.6 seconds 23.0-35.0 H Berna l Information TIME ([facility]) (test (Auto Ou tput) code = 760) HIV-1 ANTIGEN WITH HIV-1/2 [id number] 04:53:13 Test Item Value Reference Range Interpretation Comments HIV-1 ANTIGEN WITH HIV 1\T\2 Nonreactive Nonreactive ANTIBODY (2) ([facility]) (test code = 2586) Olericulturist ID - [id number] METABOLIC [id number] 04:38:36 Test Item Value Reference Range Interpretation [...] 1092) DATA TO CALCULA TE ESTIMATED GFR. Olericulturist ID - [id number] ID - [id number] ID - [id number] ID - ZRRKGEFBN579Haalgrfn ID - LLGEPWITU955Idznwarq ID - NKHUQRAYT406Elormurr ID - QOJPULRMH670Tlhpiqic ID - ELMBMXBRS935Ojfiqgrk ID - [id number] ID - [id number] FUNCTION [id number] 04:36:24 Test Item Value Reference Range Interpretation [...] (test code = 22 U/L 5-50 347) Olericulturist ID - [id number] ID - [id number] ID - [id number] ID - PNJDQZTFM501Wcwdbdfm ID - FEWZLFIPT371Dsvsijak ID - CNBRBYNKG296Ioaeydsb ID - QSMPNRTKY503Feapnbiw ID - KNXNEGSBV328Uogwboip ID - MPXPMNIQY384Hocighwp ID - YPJDZPVLW237CEYXTARMBH [id number] 04:30:27 Test Item Value Reference Range Interpretation Comments HEMOGLOBIN A1C (BEAKER) (test code = 5.8 % 4.3-6.1 368) Olericulturist ID - [id number] W/PLT COUNT & AUTO [id number] 04:17:15 Test Item Value Reference Range Interpretation [...] PERCENT (BEAKER) (test code = 2801) TROPONIN [id number] 01:16:05 Test Item Value Reference Range Interpretation [...] failure, acidosis, acute neurological disease, and persistent tachyarrhythmia.Olericulturist ID - [id number]-FVNUFUG [id number] 20:56:12 Test Item Value Reference Range Interpretation Comments POC-GLUCOSE METER 169 mg/dL 70-110 H : Notified RN/MD: TESTED (BEAKER) (test code AT [address] = 1538) [facility] [address]: Olericulturist/Techni [place] ID = [id number] for Dottie Collins [id number] 20:43:27 Test Item Value Reference Range Interpretation Comments PARTIAL THROMBOPLASTIN 43.3 seconds 23.0-35.0 H Final Information TIME (BEAKER) (test (Auto Ou tput) code = 760) [id number] 17:13:58 Test Item Value Reference Range Interpretation Comments GLUCOSE RANDOM (BEAKER) (test code 247 mg/dL 70-110 H = 652) Olericulturist ID - DSEVATROPONIN [id number] 17:03:16 Test Item Value Reference Range Interpretation [...] failure, acidosis, acute neurological disease, and persistent tachyarrhythmia.Olericulturist ID - [id number] antigen, [id number] 14:05:17 Test Item Value Reference Range Interpretation Comments Legionella Urine Negative - see Negative for L. Antigen (test code comment pneumophi la = 85423-9) serogroup 1 ant igen, suggesting no r ecent or current infe ction with this serog roup. Legionellosis c annot be ruled out si nce other serogroup s and species may cau se disease. [facility]ION[facility] ANTIGEN, [id number] 14:05:17 Test Item Value Reference Range Interpretation Comments L. PNEUMOPHILA Negative - see Negative fo r L. SEROGP 1 UR AG comment pneumophila ([facility]) (test code serogrou p 1 antigen, = 1156) suggesting no r ecent or current infe ction with this serog roup. Legionellosis c annot be ruled out si nce other serogroup s and species may cau se disease. U/S, RENAL, [id number] 14:05:00Reason for exam:->elevated creatine [facility] : 1950 Sex: MFINAL REPORT [...] a normal renal ultrasound. No hydronephrosis Signed: Cindy Jamison [facility] Verified Date/Time: 11/08/2021 14:05:00 Reading Location: [facility] B1 C013Y CT Body Reading Room Strep pneumoniae [id number] 14:04:46 Test Item Value Reference Range Interpretation Comments Strep pneumoniae Presumptive negative Presumptive Antigen (test code = [place] [address]-9) pneumonia - see pneumococcal comment pneumonia - see comment, Presumptive negative for pneumococcal meningitis - see comment JUAN (test code = JUAN) Presumptive negative for pneumococcal pneumonia, suggesting no current or recent pneumococcal infection. Infection due to S. pneumoniae cannot be ruled out since the antigen present in the sample may be below the detection limit of the test. Lab Interpretation Normal (test code = 16218-7) [facility] PNEUMONIAE [id number] 14:04:46 Test Item Value Reference Range Interpretation [...] the detection limit of the test. TROPONIN [id number] 12:03:41 Test Item Value Reference Range Interpretation [...] failure, acidosis, acute neurological disease, and persistent tachyarrhythmia.Olericulturist ID - DSENSONBASIC METABOLIC [id number] 11:54:31 Test Item Value Reference Range Interpretation [...] 1092) DATA TO CALCULA TE ESTIMATED GFR. Olericulturist ID - DSENSONOperator ID - DSENSONOperator ID - DSENSONOperator ID - DSENSONOperator ID - DSENSONOperator ID - DSENSONOperator ID - DSENSONOperator ID - DSENSONOperator ID - DSENSONOperator ID - DSENSONOperator ID - DSENSONOperator ID - DSENSONOperator ID - [id number] 11:45:04 Test Item Value Reference Range Interpretation Comments PARTIAL THROMBOPLASTIN 44.4 seconds 23.0-35.0 H Final Information TIME (BEAKER) (test (Auto Ou tput) code = 760) POCT-GLUCOSE [id number] 11:43:30 Test Item Value Reference Range Interpretation Comments POC-GLUCOSE METER 141 mg/dL 70-110 H : Notified RN/MD: TESTED ([facility]) (test code AT [facility] [address] = 1538) [place] [address]: Olericulturist/Techni brooklyn ID = [id number] for Francisco Javier Alec joyner PUL PERF IMAGING, [id number] 09:49:00Unlisted Reason for Exam - Click Yes and Enter Reason Below->No [facility] : 1950 Sex: MFINAL REPORT PROCEDURE: LUNG SCAN - perfusion only CPT CODE: 83390 INDICATION: Elevated D-dimer PROTOCOL: 5.8 mCi of Tc-99m MAA was injected intravenously, and static perfusion images were obtained in multiple projections. Ventilation imaging was not performed due to COVID precautions. FINDINGS: Tracer distribution is subsegmentally and nonsegmentally, irregularly decreased in both lungs.There is additional diffuse decrease in the right lung compared to the left. IMPRESSION: 1. Intermediate probability of acute or subacute pulmonary embolization.2. There is diffuse pulmonary parenchymal abnormality.3. Volume loss in the right lung. Signed: Nima Tirado MDReport Verified Date/Time: 11/08/2021 09:49:42 CT, CHEST, WITHOUT [id number] 09:47:00Unlisted Reason for Exam - Click Yes and Enter Reason Below->No [facility] : 1950 Sex: MFINAL REPORT [...] cannot entirely exclude superimposed infection. Signed: Carly Smith Verified Date /Time: 11/08/2021 09:47:14 RAD, CHEST, 1 VIEW, NON [id number] 08:47:00Reason for exam:->ETT placementShould this be performed at the bedside?->Yes [facility] : 1950 Sex: MFINAL REPORT [...] Ou tput) code = 760) LACTIC ACID, [id number] 05:34:16 Test Item Value Reference Range Interpretation Comments LACTATE BLOOD 1.89 mmol/L See_Comment [Automated me ssage] VENOUS (2) (BEAKER) The syst em which (test code = 2872) generated this result transmitted ref erence range: 0.50-<2. 00. The reference range was not used to interpr et this result as normal/abnormal . Olericulturist ID - LITOOperator ID - LITOOperator ID - LITOOperator ID - ROSALBA [id number] 05:31:10 Test Item Value Reference Range Interpretation Comments PROCALCITONIN (BEAKER) (test code 0.15 ng/mL <0.05 H = 3036) SEPSIS RISK (ng/mL)Low: 0.05-0.50Intermediate: 0.51-2.00High: >=2.01 Urinalysis with Microscopic If [id number] 05:13:27 Test Item Value Reference Range Interpretation Comments Color, UA (test code = 5778-6) Yellow Clarity, UA (test code = 5767-9) Clear Specific Hector, UA (test code = 1.015 1.001-1.035 5811-5) pH, UA (test code = 5803-2) 5.0 5.0-8.0 Protein, UA (test code = 85660-9) Negative Negative Glucose, UA (test code = 365) Negative Negative Ketones, UA (test code = 2514-8) Negative Negative Bilirubin, UA (test code = 37846-9) Negative Negative Blood, UA (test code = 07702-2) Small Negative A Nitrite, UA (test code = 5802-4) Negative Negative Leukocytes, UA (test code = 5799-2) Negative Negative Urobilinogen, UA (test code = 0.2 mg/dL 0.2-1.0 53878-1) Specimen Source (test code = 2795) Lab Interpretation (test code = Abnormal 16949-6) [facility] [id number] 05:13:27 Test Item Value Reference Range Interpretation [...] = 463) SOURCE(BEAKER) (test code = 2795) Urinalysis Microscopic [id number] 05:13:21 Test Item Value Reference Range Interpretation Comments RBC, UA (test code = <5 See_Comment [Autom ated message] 799-7) The system [employer] generated this result transmitted ref erence range: /HPF. Th e reference range was not used to int erpret this result as normal/abnormal . WBC, UA (test code = None Seen See_Comment [Autom ated message] 91053-2) The system [employer] generated this result transmitted ref erence range: /HPF. Th e reference range was not used to int erpret this result as normal/abnormal . Bacteria, UA (test Occasional code = 12651-6) SQUAMOUS EPITHELIAL None Seen See_Comment [Automa josh message] (test code = 76578-8) The sy stem which generated this result transmitted ref erence range: /HPF. Th e reference range was not used to int erpret this result as normal/abnormal . HYALINE CASTS (test 0-5 See_Comment [Automa josh message] code = 5796-8) The system [employer] generated this result transmitted ref erence range: /LPF. Th e reference range was not used to int erpret this result as normal/abnormal . [facility] [id number] 05:13:21 Test Item Value Reference Range Interpretation Comments RBC UA-MANUAL (BEAKER) (test <5 /HPF code = 1659) WBC UA-MANUAL (BEAKER) (test None Seen /HPF code = 1661) BACTERIA (BEAKER) (test code = Occasional 517) SQUAMOUS EPITHELIAL MANUAL None Seen /HPF (BEAKER) (test code = 1663) HYALINE CASTS MANUAL (BEAKER) 0-5 /LPF (test code = 1665) TROPONIN [id number] 05:01:28 Test Item Value Reference Range Interpretation Comments TROPONIN I (BEAKER) (test code = 0.27 ng/mL 0.00-0.15 397) Troponin I (TnI) levels [...] failure, acidosis, acute neurological disease, and persistent tachyarrhythmia.Olericulturist ID - LITOBASIC METABOLIC PANEL 2021-11-08 05:00:17 [...] 1092) DATA TO CALCULA TE ESTIMATED GFR. Olericulturist ID - LITOOperator ID - LITOOperator ID - LITOOperator ID - LITOOperator ID - LITOOperator ID - LITOOperator ID - LITOOperator ID - LITOOperator ID - LITOOperator ID - LITOB-TYPE NATRIURETIC FACTOR (BNP)2021-11-08 05:00:11 Test Item Value Reference Range Interpretation Comments B-TYPE NATRIURETIC PEPTIDE (BEAKER) 480 pg/mL 0-100 H (test code = 700) Olericulturist ID - LITOCBC W/PLT COUNT & AUTO [id number] 04:56:38 Test Item Value Reference Range Interpretation [...] H PERCENT (BEAKER) (test code = 2801) [id number] 04:53:09 Test Item Value Reference Range Interpretation Comments D-DIMER QUANTITATIVE 5.80 MG/L FEU <0.50 H Final Information (BEAKER) (test code = (Auto Output) 671) REGARDING D-DIMER RESULTS: The 98% NPV (Negative Predictive Value) for DVT/PE exclusion is 0.50 mg/LFEU as suggested by the warehouse unloader and as approved by the FDA.PROTHROMBIN [id number] 04:52:30 Test Item Value Reference Range Interpretation Comments PROTIME (BEAKER) 11.0 seconds 9.3-12.0 Final Infor mation (test code = 759) (Auto Outp ut) INR (BEAKER) (test 1.00 See_Comment Final Inf ormation code = 370) (Auto Output) [Automated mess age] The system [employer] generated this result transmitted ref erence range: <=5.90. The reference range was not used to int erpret this result as normal/abnormal . RECOMMENDED COUMADIN/WARFARIN INR THERAPY RANGESSTANDARD DOSE: 2.0 - 3.0 Includes: PROPHYLAXIS for venous thrombosis, systemic embolization; TREATMENT for venous thrombosis and/or pulmonary embolus.HIGH RISK: Target INR is 2.5-3.5 for patients with mechanical heart valves.HEMOGLOBIN [id number] 04:51:27 Test Item Value Reference Range Interpretation Comments HEMOGLOBIN A1C (BEAKER) (test code = 5.7 % 4.3-6.1 368) Olericulturist ID - LITOHEPATIC FUNCTION [id number] 04:50:07 Test Item Value Reference Range Interpretation [...] (test code = 31 U/L 5-50 347) Olericulturist ID - LITOOperator ID - LITOOperator ID - LITOOperator ID - LITOOperator ID - LITOOperator ID - LITOOperator ID - [id number] 04:49:45 Test Item Value Reference Range Interpretation Comments MAGNESIUM (BEAKER) (test code = 2.8 mg/dL 1.5-3.0 627) Olericulturist ID - LITOOperator ID - LITOOperator ID - LITOOperator ID - ROSALBA [id number] 04:46:46 Test Item Value Reference Range Interpretation Comments PHOSPHORUS (BEAKER) (test code = 4.8 mg/dL 2.5-4.5 H 604) Olericulturist ID - LITOPOCT-GLUCOSE [id number] 04:11:36 Test Item Value Reference Range Interpretation Comments POC-GLUCOSE METER 156 mg/dL 70-110 H : TESTED A T [address] 1317 (BEAKER) (test code [address], = 1538) [facility] 77 478: Olericulturist/Techni [place] ID = [id number] for Rachelc Real woodadr RAD, ABDOMEN/KUB 1 VIEW [id number] 04:02:00Reason for exam:->NG tube placementKERN VALLEYName: MIKHAIL CARRION : 1950 Sex: MFINAL REPORT [...] There is no acute osseous abnormality. Signed: Eliot ArredondoeportVerified Date/Time: 11/08/2021 04:02:40 Electronically signed by: ELIOT ARREDONDO M.D. on 204:02 AMRAD, CHEST, 1 VIEW, NON [id number] 03:57:00Reason for exam:->AHRFShould this be performed at the bedside?->Yes KERN VALLEYName: MIKHAIL CARRION : 1950 Sex: MFINAL REPORT [...] mediastinum: Stable contours. Additional findings: None. Signed: Rigo Whaleyeport Verified Date/Time: 11/08/2021 03:57:41 Blood gas, [id number] 03:54:11 Test Item Value Reference Range Interpretation Comments pH, Arterial (test code 7.38 7.35-7.45 = 2744-1) pCO2, Arterial (test 40 See_Comment [Autom ated code = 2019-8) message] The system which generated this result transmitted reference range : 35 - 45 mm Hg. The reference range was not used to interpret this result as normal/abnormal . pO2, Arterial (test 336 See_Comment H [Automa josh code = 2703-7) message] The system which generated this result transmitted reference range : 80 - 90 mm Hg. The reference range was not used to interpret this result as normal/abnormal . O2 Sat, Arterial (test 99.7 % 96.0-97.0 H code = 2708-6) HCO3, Arterial (test 23 mmol/L 21-29 code = 1960-4) Base Excess, Arterial -1.8 mmol/L -2.0-3.0 (test code = 1925-7) Patient Temperature 37.0 (test code = 8310-5) FIO2 (test code = 1819) 75 Lab Interpretation Abnormal (test code = 89727-9) [facility] [id number] 03:54:11 Test Item Value Reference Range Interpretation [...]
[2022-05-10] MEDS ORDERED: ALBUTEROL 2.5 MG/3 ML NEB SOL ONE (22:46)
[2022-05-10] MEDS ORDERED: IPRATROPIUM BROM 0.5MG/2.5ML ONE (22:47)
[2022-05-10] MEDS ORDERED: NITROGLYCERIN 1 GM PKT TD ONE (22:55)
[2022-05-11 00:29] LABS: Absolute Lymphocytes (CBC) 0.9 K/uL (0.7-4.9); Hematocrit 41.3 % (39.6-49.0); Lymphocytes % 7.5 % (15.3-44.8); MCV 89.9 fL (80-100); MPV 8.9 fL (7.6-11.3); RBC Red Blood Cell Count 4.59 M/uL (4.33-5.43)
[2022-05-11 00:39] LABS: Potassium 4.2 mmol/L (3.5-5.1)
[2022-05-11 00:41] LABS: Troponin High Sensitivity 125.9 pg/mL (<58.9)
[2022-05-11] MEDS ORDERED: METHYLPREDNISOLONE 125 MG INJ ONE (01:09)
--- NOTE | 2022-05-11 01:12 | EDPHYS ---
Physician Documentation [facility] Name: Gabo Chow Sr Age: 71 yrs Sex: Male : 1950 Arrival Date: 05/10/2022 Time: 22:42 Bed 4 Private MD: ED Physician Miah Roman HPI: 05/10 22:54 This 71 yrs old Male presents to ER via EMS with complaints of Shortness of rt breath. 22:54 Onset: The symptoms/episode began/occurred acutely, 2 hour(s) ago. Severity of rt symptoms: At their worst the symptoms were severe. The patient has experienced similar episodes in the past. With recent evaluation for STEMI presents to the ED with difficulty breathing. The patient states that he does not have chest pain. Was noted to be diaphoretic. The patient denies other acute complaints at this time, was given nitro by EMS. Symptoms are severe in severity, no other aggravating or alleviating factors.. Historical: - Allergies: 22:46 No Known Allergies; as6 - PMHx: 22:46 CHF; COPD; HTN; Hypertension; [place]; Myocardial infarction; as6 - PSHx: 22:46 heart stent; Stented artery; as6 - Immunization history:: Client reports having NOT received the Covid vaccine. Flu vaccine is not up to date. - Social history:: Smoking status: Patient reports the use of cigarette tobacco products, smokes one pack cigarettes per day. - Family history:: not pertinent. ROS: 22:54 Constitutional: Negative for fever, chills, and weight loss, Eyes: Negative for injury, rt pain, redness, and discharge, ENT: Negative for injury, pain, and discharge, Neck: Negative for injury, pain, and swelling, Cardiovascular: Negative for chest pain, palpitations, and edema, Abdomen/GI: Negative for abdominal pain, nausea, vomiting, diarrhea, and constipation, Back: Negative for injury and pain, MS/Extremity: Negative for injury and deformity, Neuro: Negative for headache, weakness, numbness, tingling, and seizure, Psych: Negative for depression, anxiety, suicide ideation, homicidal ideation, and hallucinations. 22:54 Respiratory: Positive for cough, shortness of breath, wheezing. 22:54 Skin: Positive for diaphoresis, Negative for cellulitis. Exam: 22:54 Constitutional: This is a well developed, well nourished patient who is awake, alert, rt and in no acute distress. Head/Face: Normocephalic, atraumatic. Eyes: Pupils equal round and reactive to light, extra-ocular motions intact. Lids and lashes normal. Conjunctiva and sclera are non-icteric and not injected. Cornea within normal limits. Periorbital areas with no swelling, redness, or edema. ENT: Nares patent. No nasal discharge, no septal abnormalities noted. Tympanic membranes are normal and external auditory canals are clear. Oropharynx with no redness, swelling, or masses, exudates, or evidence of obstruction, uvula midline. Mucous membranes moist. Neck: Trachea midline, no thyromegaly or masses palpated, and no cervical lymphadenopathy. Supple, full range of motion without nuchal rigidity, or vertebral point tenderness. No Meningismus. Chest/axilla: Normal chest wall appearance and motion. Nontender with no deformity. No lesions are appreciated. Cardiovascular: Regular rate and rhythm with a normal S1 and S2. No gallops, murmurs, or rubs. Normal PMI, no JVD. No pulse deficits. Abdomen/GI: Soft, non-tender, with normal bowel sounds. No distension or tympany. No guarding or rebound. No evidence of tenderness throughout. Skin: Warm, diaphoretic with normal turgor. Normal color with no rashes, no lesions, and no evidence of cellulitis. MS/ Extremity: Pulses equal, no cyanosis. Neurovascular intact. Full, normal range of motion. Neuro: Awake and alert, GCS 15, oriented to person, place, time, and situation. Cranial nerves II-XII grossly intact. Motor strength 5/5 in all extremities. Sensory grossly intact. Cerebellar exam normal. Normal gait. Psych: Awake, alert, with orientation to person, place and time. Behavior, mood, and affect are within normal limits. 22:54 Respiratory: moderate respiratory distress is noted, Respirations: Breath sounds: wheezing: expiratory that is moderate. 22:54 ECG was reviewed by the Attending Physician. Sinus rhythm with a rate of 100, left rt bundle branch block is present, ST, T waves are consistent with left bundle branch block pattern, no STEMI. Left axis deviation. Vital Signs: 22:30 BP 180 / 96; Pulse 84; Resp 22 S; Temp 97.7(A); Pulse Ox 100% on 45% BiPAP; Weight as6 74.84 kg (R); Height 6 ft. 0 in. (182.88 cm) (R); Pain 0/10; 23:16 BP 130 / 73; Pulse 77; Resp 20 S; Pulse Ox 100% on 45% BiPAP; as6 05/11 00:39 BP 96 / 53; Pulse 65; Resp 18 S; Pulse Ox 100% on 45% BiPAP; as6 05/10 22:30 Body Mass Index 22.38 (74.84 kg, 182.88 cm) as6 MDM: 05/10 22:44 Patient medically screened. rt 05/11 00:55 Differential Diagnosis Pneumonia, pneumothorax, pulmonary embolism, CHF, COPD, acute rt coronary syndrome. Data reviewed: vital signs, nurses notes, old medical records, lab test result(s), EKG, radiologic studies. ED course: Patient presents to the ED with dyspnea. Patient has symptomatic improvement with nitrates, BiPAP. He was noted to be hypercapnic but is not hypoxic. Patient has significant wheezing, suspect this is due to COPD. Lower suspicion for pulmonary embolism. Patient with a left bundle branch block. Patient has no chest pain, do not suspect an acute coronary syndrome. He will be admitted for further care.. 05/10 22:47 Order name: Basic Metabolic Panel rt 05/10 22:47 Order name: CBC with Diff rt 05/10 22:47 Order name: NT PRO-BNP rt 05/10 22:47 Order name: Troponin HS rt 05/10 22:47 Order name: ABG rt 05/11 01:01 Order name: CBC with Automated Diff; Complete Time: 02:00 EDMS 05/10 22:47 Order name: XRAY Chest (1 view) rt 05/11 01:01 Order name: Basic Metabolic Panel; Complete Time: 02:00 EDMS 05/11 01:01 Order name: Troponin High Sensitivity; Complete Time: 02:00 EDMS 05/11 01:01 Order name: NT PRO-BNP; Complete Time: 02:00 EDMS 05/11 03:18 Order name: ABG Arterial Blood Gas EDMS 05/11 07:37 Order name: SARS-COV-2 Antigen Rapid bd 05/11 08:39 Order name: SARS-COV-2 Antigen Rapid EDMS 05/11 09:57 Order name: Troponin High Sensitivity EDMS 05/10 22:47 Order name: EKG; Complete Time: 04:53 rt 05/10 22:47 Order name: Cardiac monitoring; Complete Time: 22:47 rt 05/10 22:47 Order name: EKG - Nurse/Tech; Complete Time: 22:47 rt 05/10 22:47 Order name: IV Saline Lock; Complete Time: 22:47 rt 05/10 22:47 Order name: Labs collected and sent; Complete Time: 23:01 rt 05/10 22:47 Order name: O2 Per Protocol; Complete Time: 22:47 rt 05/10 22:47 Order name: O2 Sat Monitoring; Complete Time: 22:47 rt 05/11 12:28 Order name: RAD EDMS Administered Medications: 05/10 22:48 Drug: DuoNeb (albuterol 2.5 mg, ipratropium 0.5 mg) (3:1) (2.5 mg - 0.5 mg) 3 ml Route: pf1 Nebulizer; 22:56 Drug: Nitro-Bid (nitroglycerin) Ointment 2 % 1 inches Route: Transdermal; Site: kl anterior chest wall; 05/11 01:12 Drug: SOLU-Medrol (methylPrednisoLONE) 125 mg Route: IVP; Site: left antecubital; as6 Disposition Summary: 05/11/22 00:53 Hospitalization Ordered Hospitalization Status: Inpatient Admission rt Provider: Monica Ling rt Condition: Guarded rt Problem: an acute exacerbation rt Symptoms: have improved rt Bed/Room Type: Standard rt Location: [facility] ER HOLD(05/11/22 02:07) cg Room Assignment: ERHOLD-(05/11/22 02:07) cg Diagnosis - Acute and chronic respiratory failure with hypercapnia rt - COPD/ Chronic obstructive pulmonary disease with (acute) exacerbation rt Forms: - Medication Reconciliation Form rt - SBAR form rt Critical care time excluding procedures: 00:55 Critical care time: Bedside Care: 35 minutes, Consultation: 5 minutes. Total time: 40 rt minutes Signatures: Dispatcher [employer] EDJyoti Cleveland RN RN kl Garcia, Cindy, RN RN cg Slawson, Ashby, RN RN as6 Monica Ling, PAErrol PAErrol garcia4 Miah Roman MD MD rt crandall, Khushboo, RN RN pf1 Corrections: (The following items were deleted from the chart) 02: 00:53 Telemetry/MedSurg (Inpatient) rt cg 02: 00:53 rt cg
--- NOTE | 2022-05-11 01:12 | ER ---
Nurse's Notes [facility] Name: Gabo Chow Sr Age: 71 yrs Sex: Male : 1950 Arrival Date: 05/10/2022 Time: 22:42 Bed 4 Private MD: Diagnosis: Acute and chronic respiratory failure with hypercapnia;COPD/ Chronic obstructive pulmonary disease with (acute) exacerbation Presentation: 05/10 22:44 Chief complaint: EMS states: called out for chest pain and shortness of breath. pt has as6 hx of COPD. EMS gave nitro and asa. on arrival to ER pt c/o only SOB. Coronavirus screen: At this time, the client does not indicate any symptoms associated with coronavirus-19. Ebola Screen: No symptoms or risks identified at this time. Initial Sepsis Screen:. Risk Assessment: Do you want to hurt yourself or someone else? Patient reports no desire to harm self or others. Onset of symptoms was May 10, 2022. 22:44 Method Of Arrival: EMS: [facility] as6 22:44 Acuity: ALLI 2 as6 23:04 Initial Sepsis Screen: Does the patient meet any 2 criteria? No. Patient's initial as6 sepsis screen is negative. Does the patient have a suspected source of infection? No. Patient's initial sepsis screen is negative. Historical: - Allergies: 22:46 No Known Allergies; as6 - PMHx: 22:46 CHF; COPD; HTN; Hypertension; [place]; Myocardial infarction; as6 - PSHx: 22:46 heart stent; Stented artery; as6 - Immunization history:: Client reports having NOT received the Covid vaccine. Flu vaccine is not up to date. - Social history:: Smoking status: Patient reports the use of cigarette tobacco products, smokes one pack cigarettes per day. - Family history:: not pertinent. Screenin:04 Abuse screen: Denies threats or abuse. Denies injuries from another. Nutritional as6 screening: No deficits noted. Tuberculosis screening: No symptoms or risk factors identified. Fall Risk None identified. Assessment: 22:20 General: Appears distressed, Behavior is cooperative. Pain: Denies pain. Neuro: Level as6 of Consciousness is awake, alert, obeys commands. Respiratory: Airway is patent Respiratory effort is even, labored, Breath sounds with wheezes bilaterally. 23:16 Respiratory: Respiratory effort is even, unlabored. as6 05/11 00:40 Reassessment: Patient appears in no apparent distress at this time. as6 Vital Signs: 05/10 22:30 BP 180 / 96; Pulse 84; Resp 22 S; Temp 97.7(A); Pulse Ox 100% on 45% BiPAP; Weight as6 74.84 kg (R); Height 6 ft. 0 in. (182.88 cm) (R); Pain 0/10; 23:16 BP 130 / 73; Pulse 77; Resp 20 S; Pulse Ox 100% on 45% BiPAP; as6 05/11 00:39 BP 96 / 53; Pulse 65; Resp 18 S; Pulse Ox 100% on 45% BiPAP; as6 05/10 22:30 Body Mass Index 22.38 (74.84 kg, 182.88 cm) as6 ED Course: 05/10 22:42 Patient arrived in ED. ja2 22:43 Miah Roman MD is Attending Physician. rt 22:44 Billy Solares RN is Primary Nurse. as6 22:45 Triage completed. as6 23:04 Arm band placed on. as6 23:05 Placed in gown. Bed in low position. Call light in reach. Side rails up X2. Client as6 placed on continuous cardiac and pulse oximetry monitoring. NIBP monitoring applied. Warm blanket given. 23:15 Maintain EMS IV. Dressing intact. Good blood return noted. Site clean \T\ dry. Gauge \T\ as 6 site: 18g LAC. 05/11 00:52 Monica Ling PA-C is Hospitalizing Provider. rt Administered Medications: 05/10 22:48 Drug: DuoNeb (albuterol 2.5 mg, ipratropium 0.5 mg) (3:1) (2.5 mg - 0.5 mg) 3 ml Route: pf1 Nebulizer; 22:56 Drug: Nitro-Bid (nitroglycerin) Ointment 2 % 1 inches Route: Transdermal; Site: kl anterior chest wall; 05/11 01:12 Drug: SOLU-Medrol (methylPrednisoLONE) 125 mg Route: IVP; Site: left antecubital; as6 Outcome: 00:53 Decision to Hospitalize by Provider. rt 16:40 Patient left the ED. db Signatures: Jyoti Mooney, RN RN Kaley Costello Ashby, RN RN as6 Елена Mcneil RN RN db Miah Roman MD MD rt Khushboo crandall RN RN pf1
--- NOTE | 2022-05-11 02:05 | P.HP ---
Certification for Inpatient Patient admitted to: Inpatient With expected LOS: >2 Midnights Patient will require the following post-hospital care: None Practitioner: I am a practitioner with admitting privileges, knowledge of patient current condition, hospital course, and medical plan of care. Services: Services provided to patient in accordance with Admission requirements found in Title 42 Section 412.3 of the Code of Federal Regulations Patient History Date of Service: 05/11/22 Primary Care Provider: Anton Reason for admission: COPD Exacerbation History of Present Illness: Patient is a 71-year-old male with history of COPD, diastolic CHF, CKD3b, hypertension, and CAD who presented to the ED via EMS with complaints of muna rtness of breath. Patient was put on bipap in the ED. His labs are significant for WBC 12.6, BUN 27, creatinine 2.32, troponin HS 125.9, BNP 64210. ABG with pH 7.2, pCO2 74.8. Chest xray showed " Coarsened interstitial markings. Right-sided volume loss and peripheral opacities at the mid to lower lung zone similar to the prior. The left lung is otherwise clear." He was given a breathing treatment and solumedrol in ED. His breathing has improved. Patient is admitted for further evaluation and treatment. Allergies No Known Allergies Allergy (Verified 03/03/22 08:27) Home medications list reviewed: Yes Home Medications: Albuterol Sulfate [Albuterol Sulfate Hfa] 1 puff IH DAILY 02/05/22 Fluticasone/Salmeterol [Advair Hfa 230-21 Mcg Inhaler] 1 puff IH DAILY 02/05/22 Aspirin [Aspirin EC] 81 mg PO DAILY 04/05/22 Clopidogrel Bisulfate [Plavix] 75 mg PO DAILY 04/05/22 Metoprolol Tartrate 25 mg PO BID 04/05/22 Vericiguat [Verquvo] 2.5 mg PO BEDTIME 04/05/22 Apixaban [Eliquis] 5 mg PO BID #60 tab 04/09/22 Furosemide [Lasix] 40 mg PO BID #60 tab 04/09/22 levoFLOXacin [Levaquin*] 500 mg PO DAILY 2 Days #2 tab 04/09/22 predniSONE [Prednisone*] 40 mg PO DAILY 3 Days #6 tab 04/09/22 - Past Medical/Surgical History Diabetic: No -: HTN -: COPD -: HTN -: CHF -: CKD followed by Dr. Roy -: CAD -: heart stent Psychosocial/ Personal History: Patient lives at home with his . - Family History Father -: Heart disease Notes: Heart attack Mother -: Lung disease Notes: COPd - Social History Smoking Status: Current every day smoker Alcohol use: No CD- Drugs: No Caffeine use: Yes Place of Residence: Home Review of Systems Respiratory: Shortness of Breath Physical Examination - Physical Exam General: Alert, In no apparent distress HEENT: Atraumatic, PERRLA, EOMI, Sclerae nonicteric Neck: Supple, 2+ carotid pulse no bruit, No LAD, Without JVD or thyroid abnormality Respiratory: Expiratory wheezes Cardiovascular: Regular rate/rhythm, Normal S1 S2 Gastrointestinal: Normal bowel sounds, No tenderness Musculoskeletal: No tenderness Integumentary: No rashes Neurological: Normal speech, Normal strength at 5/5 x4 extr, Normal tone, Normal affect - Studies Laboratory Data (last 24 hrs) 05/10/22 23:59: WBC 12.60 H, Hgb 13.3 L, Hct 41.3, Plt Count 319 05/10/22 23:59: Sodium 140, Potassium 4.2, BUN 27 H, Creatinine 2.32 H, Glucose 135 H Assessment and Plan - Problems (Diagnosis) (1) COPD exacerbation Current Visit: Yes Status: Acute (2) Hypercapnic respiratory failure Current Visit: Yes Status: Acute Qualifiers: Chronicity: acute on chronic Qualified Code(s): J96.22 - Acute and chronic respiratory failure with hypercapnia (3) Acute on chronic diastolic heart failure Current Visit: Yes Status: Acute (4) Acute on chronic renal failure Current Visit: Yes Status: Acute Qualifiers: Acute renal failure type: unspecified Chronic kidney disease stage: stage 3 (moderate) Chronic kidney disease stage 3 subtype: stage 3b (GFR 30-44) Qualified Code(s): N17.9 - Acute kidney failure, unspecified; N18.32 - Chronic kidney disease, stage 3b (5) Troponin level elevated Current Visit: No Status: Acute (6) HTN (hypertension) Current Visit: Yes Status: Chronic Qualifiers: Hypertension type: primary hypertension Qualified Code(s): I10 - Essential (primary) hypertension (7) Nicotine dependence Current Visit: Yes Status: Chronic Qualifiers: Nicotine product type: cigarettes Substance use status: uncomplicated Qualified Code(s): F17.210 - Nicotine dependence, cigarettes, uncomplicated - Plan Patient currently requiring bipap. Wean as tolerated. Monitor pulse oximetry. Fluid restriction. Monitor intake and output. Daily weight. Lasix daily. Last echo 2 months ago showed an EF ~50% Troponin HS 125. Likely demand ischemia. Patient had cath 2 months ago and cardiology recommended medical management. Tobacco cessation counseling Pulmonology consult Scheduled nebs and bronchodilators Monitor and replete electrolytes per protocol Reconcile and continue home medications Lovenox for VTE ppx Full code Discharge Plan: Home Plan to discharge in: Greater than 2 days - Advance Directives Does patient have a Living Will: No Does patient have a Durable POA for Healthcare: No - Code Status/Comfort Care Code Status Assessed: Yes (Full) Critical Care: No Time Spent Managing Pts Care (In Minutes): 50
[2022-05-11] MEDS ORDERED: ACETAMINOPHEN 500 MG TAB PO PRN (03:03)
[2022-05-11] MEDS: ALBUTEROL 2.5 MG/3 ML NEB SOL NEB SCH ×3 (03:03→14:30)
[2022-05-11] MEDS: IPRATROPIUM BROM 0.5MG/2.5ML NEB SCH ×3 (03:03→14:30)
[2022-05-11] MEDS ORDERED: ONDANSETRON 4 MG/2 ML VIAL IV PRN (03:03)
[2022-05-11 03:14] LABS: Blood O2 Saturation 99.5 % (92-98.5)
[2022-05-11 03:15] LABS: Arterial Blood Carboxyhemoglob 3.3 % (0-1.5); Blood Gas Oxyhemoglobin 95.1 % (94-97)
[2022-05-11 03:30] VITALS: BMI 22.4
--- NOTE | 2022-05-11 08:20 | EKG ---
Test Date: 2022-05-10 Test Time: 22:42:03 Manager Requirements: MEASUREMENT RESULTS: Intervals: Rate: 100 WI: 164 QRSD: 134 QT: 392 QTc: 505 [place]: P: 83 WI: 164 QRS: -12 T: 151 INTERPRETIVE STATEMENTS: Sinus rhythm with occasional premature ventricular complexes Left bundle branch block Abnormal ECG Compared to ECG 04/06/2022 11:13:01 Ventricular premature complex(es) now present Sinus tachycardia no longer present Left-axis deviation no longer present Electronically Signed On 05-11-22 08:19:43 SOFTWARE CONFIGURATION SPECIALIST by Irvin Turner
[2022-05-11] MEDS ORDERED: ALBUTEROL 2.5 MG/3 ML NEB SOL ONE ×2 (08:22→14:18)
[2022-05-11] MEDS ORDERED: IPRATROPIUM BROM 0.5MG/2.5ML ONE ×2 (08:22→14:18)
[2022-05-11 08:39] LABS: SARS-CoV-2 Antigen Rapid Res Negative (Negative)
[2022-05-11] MEDS ORDERED: METHYLPREDNISOLONE 40 MG INJ IV SCH (09:00)
[2022-05-11] MEDS ORDERED: ENOXAPARIN 40 MG/0.4 ML SQ SCH (09:00)
[2022-05-11] MEDS ORDERED: INFLUENZA VACCINE (for 6+ mo) 0.5 ML DOSE IMVAC ONE ×2 (09:00→11:06)
[2022-05-11 10:29] VITALS: O2SAT 98
--- NOTE | 2022-05-11 11:03 | P.DS ---
Admission Date: 05/11/22 Discharge Date: 05/11/22 Primary Care Provider: Anton Disposition: ROUTINE DISCHARGE Discharge Condition: FAIR Reason for Admission: COPD Exacerbation - Problems (1) Acute on chronic diastolic heart failure Current Visit: Yes Status: Acute (2) COPD exacerbation Current Visit: Yes Status: Acute (3) HTN (hypertension) Current Visit: Yes Status: Chronic Qualifiers: Hypertension type: primary hypertension Qualified Code(s): I10 - Essential (primary) hypertension (4) Acute respiratory failure with hypercapnia Current Visit: Yes Status: Acute Brief History of Present Illness: Patient is a 71-year-old male with history of COPD, diastolic CHF, CKD3b, hypertension, and CAD who presented to the ED via EMS with complaints of shortness of breath. Patient was put on bipap in the ED. His labs significant for WBC 12.6, BUN 27, creatinine 2.32, troponin HS 125.9, BNP 07985. ABG with pH 7.2, pCO2 74.8. Chest xray showed " Coarsened interstitial markings. Right-sided volume loss and peripheral opacities at the mid to lower lung zone similar to the prior. The left lung otherwise clear." He was given a breathing treatment and solumedrol in ED. His breathing improved. Patient hospitalized for further evaluation and treatment. Hospital Course: Patient admitted to the medical floor and treated for COPD exacerbation with IV steroid, scheduled bronchodilators and antibiotics. Patient stated his previous PCP discontinued his lasix and feels ED visit was as a result of being off Lasix. However patient saw a new PCP who restarted Lasix 40 mg twice daily 1 week ago. Patient noted to have hypercapnic respiratory failure, seen in consultation by pulmonary. His respiratory condition improved rapidly with treatment, he was weaned off oxygen to room air and was able to ambulate without shortness of breath or hypoxia. Patient deemed stable for discharge. He will continue bronchodilator treatment at home. He is also prescribed oral Levaquin for infective bronchitis. He will take an extra dose of Lasix for the next 1 week and then continue with his usual home dose. Vital Signs/Physical Exam: Temp Pulse Resp BP Pulse Ox 97.9 F 80 24 H 117/57 L 100 05/11/22 07:30 05/11/22 07:30 05/11/22 07:30 05/11/22 07:30 05/11/22 07:30 General: Alert, In no apparent distress, Oriented x3, Obese HEENT: Mucous membr. moist/pink Neck: JVD not distended Respiratory: Clear to auscultation bilaterally, Normal air movement Cardiovascular: No edema, Regular rate/rhythm, Normal S1 S2 Gastrointestinal: Soft and benign, Non-distended, No tenderness Musculoskeletal: No swelling Integumentary: No rashes Neurological: Normal strength at 5/5 x4 extr Laboratory Data at Discharge: WBC 12.60 K/uL (4.3-10.9) H 05/10/22 23:59 Hgb 13.3 g/dL (13.6-17.9) L 05/10/22 23:59 Hct 41.3 % (39.6-49.0) 05/10/22 23:59 Plt Count 319 K/uL (152-406) 05/10/22 23:59 Sodium 140 mmol/L (136-145) 05/10/22 23:59 Potassium 4.2 mmol/L (3.5-5.1) 05/10/22 23:59 BUN 27 mg/dL (7-18) H 05/10/22 23:59 Creatinine 2.32 mg/dL (0.55-1.3) H 05/10/22 23:59 Glucose 135 mg/dL (74-106) H 05/10/22 23:59 Home Medications: Albuterol Sulfate [Albuterol Sulfate Hfa] 1 puff IH DAILY 02/05/22 Fluticasone/Salmeterol [Advair Hfa 230-21 Mcg Inhaler] 1 puff IH DAILY 02/05/22 Aspirin [Aspirin EC] 81 mg PO DAILY 04/05/22 Clopidogrel Bisulfate [Plavix] 75 mg PO DAILY 04/05/22 Metoprolol Tartrate 25 mg PO BID 04/05/22 Vericiguat [Verquvo] 2.5 mg PO BEDTIME 04/05/22 Apixaban [Eliquis] 5 mg PO BID #60 tab 04/09/22 Fluticasone/Umeclidin/Vilanter [Trelegy Ellipta 200-62.5-25] 1 each IH BID #1 inh 05/11/22 Furosemide [Lasix] 40 mg PO BID #60 tab 05/11/22 levoFLOXacin [Levaquin*] 500 mg PO DAILY #5 tab 05/11/22 predniSONE [Prednisone*] 40 mg PO DAILY 3 Days #6 tab 05/11/22 New Medications: Furosemide [Lasix] 40 mg PO BID #60 tab levoFLOXacin [Levaquin*] 500 mg PO DAILY #5 tab predniSONE [Prednisone*] 40 mg PO DAILY 3 Days #6 tab Fluticasone/Umeclidin/Vilanter [Trelegy Ellipta 200-62.5-25] 1 each IH BID #1 inh Diet: AHA Activity: Ad angélica Followup: Greg Walton MD [Primary Care Provider] - 1 Week Time spent managing pt's care (in minutes): 33
[2022-05-11] MEDS ORDERED: METHYLPREDNISOLONE 40 MG INJ ONE (11:05)
[2022-05-11] MEDS ORDERED: ENOXAPARIN 40 MG/0.4 ML SQ ONE (11:06)
--- NOTE | 2022-05-11 12:27 | RAD REPORT ---
EXAM DESCRIPTION: XR Chest, 1 View CLINICAL HISTORY: Dyspnea TECHNIQUE: Frontal view of the chest. COMPARISON: XR Chest dated 04/05/2022 FINDINGS: Lungs: Coarsened interstitial markings. Right-sided volume loss and peripheral opaciti es at the mid to lower lung zone similar to the prior. The left lung is otherwise clear. Pleural space: Unremarkable. No pneumothorax. Heart: The cardiac silhouette is enlarged, stable. Mediastinum: Unremarkable. Bones/joints: Unremarkable. Vasculature: Thoracic aortic atherosclerosis. IMPRESSION: Stable changes on the right which may be related to pleural parenchymal scar. Superimp osed infiltrate cannot be excluded. Electronically signed by: Susanne Escobedo MD 05/11/2022 1:33 AM [employer] Due to temporary technical issues with the PACS/Fluency reporting system, reports are being signed by the in house radiologists without review as a courtesy to insure prompt reporting. The interpreting radiologist is fully responsible for the content of the report.
--- NOTE | 2022-05-11 12:28 | P.CNS ---
Date of Consult: 05/11/22 Reason for Consult: COPD exacerbation Primary Care Provider: Anton Chief Complaint: COPD Exacerbation History of Present Illness: Patient is 71 years of age multiple medical problems including COPD CHF chronic renal failure admitted with acute onset of respiratory distress is feeling a bit better now denies any fever chills is off BiPAP Patient was hypoxic compliant with inhalers at home denies any fever chills or cough Allergies No Known Allergies Allergy (Verified 03/03/22 08:27) Home Medications: Albuterol Sulfate [Albuterol Sulfate Hfa] 1 puff IH DAILY 02/05/22 Fluticasone/Salmeterol [Advair Hfa 230-21 Mcg Inhaler] 1 puff IH DAILY 02/05/22 Aspirin [Aspirin EC] 81 mg PO DAILY 04/05/22 Clopidogrel Bisulfate [Plavix] 75 mg PO DAILY 04/05/22 Metoprolol Tartrate 25 mg PO BID 04/05/22 Vericiguat [Verquvo] 2.5 mg PO BEDTIME 04/05/22 Apixaban [Eliquis] 5 mg PO BID #60 tab 04/09/22 Fluticasone/Umeclidin/Vilanter [Trelegy Ellipta 200-62.5-25] 1 each IH BID #1 inh 05/11/22 Furosemide [Lasix] 40 mg PO BID #60 tab 05/11/22 levoFLOXacin [Levaquin*] 500 mg PO DAILY #5 tab 05/11/22 predniSONE [Prednisone*] 40 mg PO DAILY 3 Days #6 tab 05/11/22 - Past Medical/Surgical History Diabetic: No -: HTN -: COPD -: HTN -: CHF -: CKD followed by Dr. Roy -: CAD -: heart stent Psychosocial/ Personal History: Patient lives at home with his . - Family History Father Medical History: Heart disease Notes: Heart attack Mother Medical History: Lung disease Notes: COPd - Social History Smoking Status: Current every day smoker Alcohol use: No CD- Drugs: No Caffeine use: Yes Place of Residence: Home Review of Systems 10-point ROS is otherwise unremarkable General: Weakness Respiratory: Shortness of Breath Physical Examination Temp Pulse Resp BP Pulse Ox 97.9 F 80 24 H 117/57 L 100 05/11/22 07:30 05/11/22 07:30 05/11/22 07:30 05/11/22 07:30 05/11/22 07:30 General: Alert, In no apparent distress, Oriented x3 Respiratory: Diminished Cardiovascular: No edema, Regular rate/rhythm, Normal S1 S2 Gastrointestinal: Normal bowel sounds, Soft and benign Musculoskeletal: No clubbing, No swelling Laboratory Data (last 24 hrs) 05/10/22 23:59: WBC 12.60 H, Hgb 13.3 L, Hct 41.3, Plt Count 319 05/10/22 23:59: Sodium 140, Potassium 4.2, BUN 27 H, Creatinine 2.32 H, Glucose 135 H 05/10/22 22:47: WBC Cancelled, Hgb Cancelled, Hct Cancelled, Plt Count Cancelled 05/10/22 22:47: Sodium Cancelled, Potassium Cancelled, BUN Cancelled, Creatinine Cancelled, Glucose Cancelled - Problems (1) COPD exacerbation Current Visit: Yes Status: Acute Plan: Patient is 71 years of age admitted with acute respiratory distress history of COPD compliant with medications chest x-ray COPD changes renal function has improved mildly hypoxic hypercapnic troponins are declining most likely demand hypoxemia does have a history of coronary artery disease labs reviewed vital signs are now stable oxygenation normal at room air changed to p.o. prednisone stable for discharge discharge on prednisone 10 twice a day for 10 days continue with bronchodilator therapy at home follow-up with me in 2 weeks add levofloxacin
[2022-05-11] MEDS ORDERED: levoFLOXacin 500 MG TAB PO SCH (13:00)
[2022-05-11 14:19] VITALS: BP 117/54; TEMP 98
[2022-05-11] MEDS ORDERED: levoFLOXacin 250 MG TAB ONE (14:32)
[2022-05-11] MEDS ORDERED: predniSONE 20 MG TAB PO SCH (21:00)
== END 2022-05-11 15:09 | disposition home or self-care (01) | DRG 190 ==
LOC: ER 22:33 → ERHOLD 05-11 01:59
PROVIDERS: ADMIT Internal Medicine; ATTEND Internal Medicine
PROC: 5A09357 Assistance with Respiratory Ventilation, Less than 24 Consecutive Hours, Continuous Positive Airway Pressure (ICD-10-PCS; principal; 2022-05-11)
DX: J44.1 Chronic obstructive pulmonary disease with (acute) exacerbation (principal); I50.33 Acute on chronic diastolic (congestive) heart failure; J96.22 Acute and chronic respiratory failure with hypercapnia; I13.0 Hypertensive heart and chronic kidney disease with heart failure and stage 1 through stage 4 chronic kidney disease, or unspecified chronic kidney disease; N17.9 Acute kidney failure, unspecified; N18.32 Chronic kidney disease, stage 3b; I44.7 Left bundle-branch block, unspecified; I25.10 Atherosclerotic heart disease of native coronary artery without angina pectoris; F17.210 Nicotine dependence, cigarettes, uncomplicated; I25.2 Old myocardial infarction; R77.8 Other specified abnormalities of plasma proteins; Z23 Encounter for immunization; Z95.5 Presence of coronary angioplasty implant and graft; Z79.82 Long term (current) use of aspirin; Z79.02 Long term (current) use of antithrombotics/antiplatelets; Z79.52 Long term (current) use of systemic steroids; Z28.310 Unvaccinated for COVID-19; Z79.899 Other long term (current) drug therapy; Z20.822 Contact with and (suspected) exposure to COVID-19
CPT/HCPCS: 36415; 71045; 80048; 82805; 83880; 84484; 85025; 87811; 90471; 93005; 94640; 94660; 94760; 96374; 99284; J1650; J2920; J2930; J7644; Q2035

== ENCOUNTER 2022-05-11 22:13 | Inpatient (IN) | payer MEDICARE ==
--- OUTSIDE RECORDS SUMMARY | 2022-05-11 22:18 | XMS REPORT | Continuity of Care Document ---
:1950 Author Organization [facility] t Address [address] [place] [address] Care Team Providers Name Role Phone Pcp, Patient Does Not Have A Primary Care Physician [id number] Doctor Unassigned, Golva Attending Clinician Unavailable Nyasia Wang RN Attending Clinician Unavailable FELICIA GOSS Attending Clinician Unavailable Felicia Spencer Attending Clinician Osbaldo Aguiar MD Attending Clinician Corwin Walden DO Attending Clinician Jagdeep Fagan MD Attending Clinician Carmelo Licona MD Attending Clinician CARMELO LICONA Attending Clinician Unavailable Logan Liu MD Attending Clinician TONY MILLER Attending Clinician Unavailable Haven Ortiz RN Attending Clinician Unavailable Jen Alonzo MD Attending Clinician Juventino Smith MD Attending Clinician Rickie Cheng MD Attending Clinician RICKIE CHENG Attending Clinician Unavailable HARDEEP LAU Attending Clinician Unavailable Hardeep Lau MD Attending Clinician JOHN, PUSHAN PRAKASHCHAND Attending Clinician Unavailable THANG FRANCIS M.D. Attending Clinician Unavailable PASTORA LOPEZ M.D. Attending Clinician Unavailable Jagdeep Fagan MD Admitting Clinician JAGDEEP FAGAN Admitting Clinician Unavailable JEN ALONZO Admitting Clinician Unavailable Payers Payer Name Policy Type Policy Number Effective Date Expiration Date S rosio [employer] [id number] 2020 (MEDICARE 00:00:00 REPLACEMENT HMO) [employer] MGD [id number] 2020 MCR 00:00:00 Problems Condition Condition Condition Status Onset Resolution Last Treating Co mments Source Name Details Category Date Date Treatment Clinician Date Dyspnea, Dyspnea, Disease Active Unive rs unspecifie unspecifie 8-21 it y of d type d type 00:00: [place] 00 Medical Branch 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 Active 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: [place] congestive congestive 00 Me dical heart heart Branch failure failure Hyperkalem Hyperkalem Disease Active U nivers ia ia 8-21 ity of 00:00: [place] 00 Medical Branch 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 [place] Tachycardi Tachycardi Disease Active U nivers a a 8-21 ity of 00:00: [place] 00 Medical Branch Hypertensi Hypertensi Disease Active [facility] emergency 00:00: [facility] 00 Center 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 Active [facility] chronic chronic [facility]16 [facility] 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: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Center 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 Pulmonary Pulmonary Disease Active [facility] edema edema 5-16 [facility] 00:00: [facility] 00 Center Demand Demand Disease Active [facility] ischemia ischemia 5-16 [facility] 00:00: [facility] 00 Center MEHREEN (acute MEHREEN (acute Disease Active [facility] kidney kidney 5-16 [facility] injury) injury) 00:00: [facility] 00 Center Acute Acute Disease Active [facility] respirator respirator 5-15 Yadira kes y failure y failure 00:00: Medi south with with 00 Center hypercapni hypercapni a a Athscl Athscl Problem Active [facility] heart 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 [...] Active Univers ALLERGIE Class ity of S [facility] NO KNOWN Allergy Active [facility] ALLERGIE S Social History Social Habit Start Date Stop Date Quantity Comments Source History [facility] Food 2022-02-22 2022-02-22 1 Univers ity of Worry 00:00:00 00:00:00 [facility] History [facility] Food 2022-02-22 2022-02-22 1 Univers ity of Scarcity 00:00:00 00:00:00 [facility] Branch History [facility] 2022-02-22 2022-02-22 2 University o f Transport Med 00:00:00 00:00:00 [facility] Branch History [facility] 2022-02-22 2022-02-22 2 University o f Transport Non-Med 00:00:00 00:00:00 [facility] Exposure to 2022-02-10 2022-02-20 Not sure University of SARS-CoV-2 (event) 00:00:00 18:56:00 [facility] Cigarettes smoked 2022-02-14 2022-02-14 Univers ity of current (pack per 00:00:00 00:00:00 [facility] ) - Reported Branch Cigarette 2022-02-14 2022-02-14 University of pack-years 00:00:00 00:00:00 [facility] Tobacco use and 2021-11-10 2021-11-[address] [facility] [address] Yadira kes exposure 00:00:00 00:00:00 [facility] Alcohol intake 2021-11-10 2021-11-10 Ex-drinker [facility] 00:00:00 00:00:00 (finding) [facility] History of tobacco 2021-10-25 Passive smoker Un iversity of use 00:00:00 [facility] Sex Ass[birth year] At [birth year] ALEXEI Vilchis 00:00:00 00:00:00 Medical Center Smoking Status Start Date Stop Date Source Smokes tobacco daily [facility] (finding) Ex-smoker 2022-02-14 00:00:00 2022-02-14 00:00:00 [facility] Medications Ordered Filled Start Stop Current Ordering Indication Dosage Frequency Signature Comments Components Source Medication Medication Date Date Medication? Clinician (SIG) Name Name pradip 2021- Yes [id number] 500mg Take 1 Univers n 500 mg 8-27 tablet by ity of tablet 00:00: mouth in [place] the Medical morning. Branch furosemide 2021- Yes [id number] 40mg Take 1 Univers 40 mg 8-27 tablet by ity of tablet 00:00: mouth in [place] the Medical morning. Branch azithromyci 2021- Yes [id number] 500mg Take 1 Univers n 500 mg 8-27 tablet by ity of tablet 00:00: mouth in [place] the Medical morning. Branch furosemide 2021-0 Yes [id number] 40mg Take 1 Univers 40 mg 8-27 tablet by ity of tablet 00:00: mouth in [place] the Medical morning. Branch azithromyci 2021-0 Yes [id number] 500mg Take 1 Univers n 500 mg 8-27 tablet by ity of tablet 00:00: mouth in [place] the Medical morning. Branch furosemide 2021-0 Yes [id number] 40mg Take 1 Univers 40 mg 8-27 tablet by ity of tablet 00:00: mouth in [place] the Medical morning. Branch azithromyci 2021-0 Yes [id number] 500mg Take 1 Univers n 500 mg 8-27 tablet by ity of tablet 00:00: mouth in [place] the Medical morning. Branch furosemide 2021-0 Yes [id number] 40mg Take 1 Univers 40 mg 8-27 tablet by ity of tablet 00:00: mouth in [place] the Medical morning. Branch azithromyci 2021-0 Yes [id number] 500mg Take 1 Univers n 500 mg 8-27 tablet by ity of tablet 00:00: mouth in [place] the Medical morning. Branch furosemide 2021-0 Yes [id number] 40mg Take 1 Univers 40 mg 8-27 tablet by ity of tablet 00:00: mouth in [place] 00 the Medical morning. Branch aspirin 81 2021- Yes [id number] 81mg Take 1 Univers mg chewable 8-27 - tablet by it y of tablet 00:00: 04:59 mouth in [place] 00 :00 the Medical morning Branch for 30 days. clopidogreL 2021- Yes [id number] 75mg Take 1 Univers 75 mg 8-27 -27 tablet by ity of tablet 00:00: 04:59 mouth in [place] 00 :00 the Medical morning Branch for 30 days. Fluticasone 2021- Yes [id number] 1{puff} Inhale 1 Univers -Salmeterol 8-23 03- Puff every i ty of 100-50 00:00: 04:59 12 [place] mcg/dose 00 :00 (twelve) Medical inhalation hours for Bran ch disk 30 days. rosuvastati 2021- Yes [id number] 20mg Take 1 Univers n 20 mg 8-23 03- tablet by ity of tablet 00:00: 04:59 mouth at [place] 00 :00 bedtime Medical for 30 Branch days. aspirin 81 2021- Yes [id number] 81mg Take 1 Univers mg chewable 8-23 03- tablet by it y of tablet 00:00: 04:59 mouth in [place] 00 :00 the Medical morning Branch for 30 days. clopidogreL 2021- Yes [id number] 75mg Take 1 Univers 75 mg 8-27 - tablet by ity of tablet 00:00: 04:59 mouth in [place] 00 :00 the Medical morning Branch for 30 days. Fluticasone 2021- Yes [id number] 1{puff} Inhale 1 Univers -Salmeterol 8-23 03- Puff every i ty of 100-50 00:00: 04:59 12 [place] mcg/dose 00 :00 (twelve) Medical inhalation hours for Bran ch disk 30 days. rosuvastati 2021- Yes [id number] 20mg Take 1 Univers n 20 mg 8-27 -27 tablet by ity of tablet 00:00: 04:59 mouth at [place] 00 :00 bedtime Medical for 30 Branch days. aspirin 81 2021- Yes [id number] 81mg Take 1 Univers mg chewable 02-20 tablet by it y of tablet 00:00: 04:59 mouth in [place] 00 :00 the Medical morning Branch for 30 days. clopidogreL 2021- Yes [id number] 75mg Take 1 Univers 75 mg 8-03-23 tablet by ity of tablet 00:00: 04:59 mouth in [place] 00 :00 the [facility] morning [place] for 30 days. Fluticasone 2021- Yes [id number] 1{puff} Inhale 1 Univers -Salmeterol -03-23 Puff every i ty of 100-50 00:00: 04:59 12 [place] mcg/dose 00 :00 (twelve) Medical inhalation hours for Bran ch disk 30 days. rosuvastati 2021- Yes [id number] 20mg Take 1 Univers n 20 mg 02-20 tablet by ity of tablet 00:00: 04:59 mouth at [place] 00 :00 bedtime Medical for 30 Branch days. aspirin 81 2021- Yes [id number] 81mg Take 1 Univers mg chewable 02-20 tablet by it y of tablet 00:00: 04:59 mouth in [place] 00 :00 the [facility] morning [place] for 30 days. clopidogreL 2021- Yes [id number] 75mg Take 1 Univers 75 mg -03-23 tablet by ity of tablet 00:00: 04:59 mouth in [place] 00 :00 the [facility] morning [place] for 30 days. Fluticasone 2021- Yes [id number] 1{puff} Inhale 1 Univers -Salmeterol 02-20 Puff every i ty of 100-50 00:00: 04:59 12 [place] mcg/dose 00 :00 (twelve) Medical inhalation hours for Bran ch disk 30 days. rosuvastati 2021- Yes [id number] 20mg Take 1 Univers n 20 mg -03-23 tablet by ity of tablet 00:00: 04:59 mouth at [place] 00 :00 bedtime Medical for 30 Branch days. lactobacill 2022- No 1{capsu QD Take [address] [facility] us 5-20 05-20 le} capsule by [facility] rhamnosus, 00:00: 23:59 mouth Medic al GG, 00 :00 daily. [place] ([facility] 10 billion cell capsule lactobacill 2022- No 1{capsu QD Take [address] [facility] us 5-20 05-20 le} capsule by [facility] rhamnosus, 00:00: 23:59 mouth Medic al GG, 00 :00 daily. [place] ([facility] ) 10 billion cell capsule amLODIPine 2021- No 10mg QD Take [address] [facility] [facility] (NORVASC) 5-20 08-18 tablet (10 Sally es 10 MG 00:00: 23:59 mg total) Medica l tablet 00 :00 by mouth Center daily for 90 days. aspirin 81 2021-2021- No 81mg QD Take [address] [facility] MG chewable 5-20 08-18 tablet (81 L ukes tablet 00:00: 23:59 mg total) Medic al 00 :00 by mouth Center daily for 90 days. amLODIPine 2021- No 10mg QD Take [address] [facility] (NORVASC) 5-20 08-18 tablet (10 Sally es 10 MG 00:00: 23:59 mg total) Medica l tablet 00 :00 by mouth Center daily for 90 days. aspirin 81 2021- No 81mg QD Take [address] [facility] MG chewable 5-20 08-18 tablet (81 L ukes tablet 00:00: 23:59 mg total) Medic al 00 :00 by mouth Center daily for 90 days. lisinopriL Yes 40mg QD Take [address] (PRINIVIL,Z 5-19 by mouth Luke s ESTRIL) 40 20:45: daily. Medic al MG tablet 02 Center carvediloL 0 Yes 6.25mg Take 6.[address] [facility] (COREG) 5-19 mg by [facility] 6.25 MG 20:45: mouth 2 Medical tablet 02 (two) Center times daily with breakfast and dinner. lisinopriL 2021-0 Yes 40mg QD Take [address] (PRINIVIL,Z 5-19 by mouth Luke s ESTRIL) 40 20:45: daily. Medic al MG tablet 02 Center carvediloL Yes 6.25mg Take 6.[address] (COREG) 5-19 mg by [facility] 6.25 MG 20:45: mouth 2 Medical tablet 02 (two) Center times daily with breakfast and dinner. predniSONE 2-0 2- No 10mg Q.5D Take [address] [facility] (DELTASONE) 5-19 05-19 by mouth 2 L ukes 10 MG 16:04: 00:00 (two) Medical tablet 36 :00 times Center daily. amLODIPine 2021-0 2- No 5mg QD Take [address] (NORVASC) 5 5- 05-19 by mouth Sally es MG tablet 16:04: 00:00 daily. Medic al 36 :00 Center predniSONE 2-0 2- No 10mg Q.5D Take [address] [facility] (DELTASONE) 5-19 05-19 by mouth 2 L ukes 10 MG 16:04: 00:00 (two) Medical tablet 36 :00 times Center daily. amLODIPine 2021-0 2021- No 5mg QD Take [address] (NORVASC) 5 - 05-19 by mouth Sally es MG tablet 16:04: 00:00 daily. Medic al 36 :00 Center acetaminoph 2021-2022- No 650mg Take [address] en 11-12 05-14 tablets [facility] (TYLENOL) 00:00: 23:59 (650 mg Medi south 325 MG 00 :00 total) by Center tablet mouth every 6 (six) hours as needed for up to 360 days. ipratropium 2021-2022- No 3mL Take [address] -albuteroL 11-12-14 by [facility] (DUO-NEB) 00:00: 23:59 nebulizati M edical 0.5 mg-3 00 :00 on every 6 Cente r mg(2.5 mg (six) base)/3 mL hours as nebulizer needed for solution Wheezing for up to 360 days. acetaminoph 2021-2022- No 650mg Take [address] en 5- 05-14 tablets [facility] (TYLENOL) 00:00: 23:59 (650 mg Medi south 325 MG 00 :00 total) by Center tablet mouth every 6 (six) hours as needed for up to 360 days. ipratropium 2021-0 3- No 3mL Take [address] -albuteroL 5- 05-14 by Corinna (DUO-NEB) 00:00: 23:59 nebulizati M edical 0.5 mg-3 00 :00 on every 6 Cente r mg(2.5 mg (six) base)/3 mL hours as nebulizer needed for solution Wheezing for up to 360 days. apixaban 2021- No 5mg Q.5D Take [address] [facility] [address] (ELIQUIS) 5 11-12-17 tablet (5 Yadira kes mg Tab 00:00: 23:59 mg total) Medic al tablet 00 :00 by mouth 2 Center (two) times daily for 90 days. apixaban 2021- No 5mg Q.5D Take [address] [facility] (ELIQUIS) 5 11-12-17 tablet (5 Yadira kes mg Tab 00:00: 23:59 mg total) Medic al tablet 00 :00 by mouth 2 Center (two) times daily for 90 days. bumetanide No 1mg Take [address] [facility] (BUMEX) 1 11-1218 tablet (1 Luke s MG tablet 00:00: 23:59 mg total) Me dical 00 :00 by mouth 2 Center (two) times daily for 30 days. bumetanide No 1mg Take [address] [facility] (BUMEX) 1 11-1218 tablet (1 Luke s MG tablet 00:00: [...] (10 mg total) daily for 3 days. predniSONE 2021- No Take [address] [facility] (DELTASONE) 11-12-31 tablets Luke s 10 MG 00:00: 23:59 (40 mg Medical tablet 00 :00 total) by Center mouth daily for 3 days, THEN 3 tablets (30 mg total) daily for 3 days, THEN 2 tablets (20 mg total) daily for 3 days, THEN 1 tablet (10 mg total) daily for 3 days. dextrometho 2021-0 2- No 5mL Take [address] rphan-guaif 11-12- by mouth Sally es enesin 00:00: 23:59 every 4 Medical (ROBITUSSIN 00 :00 (four) Center -DM) 10-100 hours as mg/5 mL needed for liquid up to 10 days. dextrometho 2021-0 2021- No 5mL Take [address] rphan-guaif 11-12- by mouth Sally es enesin 00:00: 23:59 every 4 Medical (ROBITUSSIN 00 :00 (four) Center -DM) 10-100 hours as mg/5 mL needed for liquid up to 10 days. amoxicillin 2021-2021- No 1{tbl} Q.5D Take [address] -clavulanat 5-12 11-22 tablet by Yadira kes e 00:00: 23:59 mouth 2 Medical (AUGMENTIN) 00 :00 (two) Center 875-125 mg times per tablet daily for 3 days. amoxicillin 2021-0 2021- No 1{tbl} Q.5D Take [address] -clavulanat 5-12 11-22 tablet by Yadira kes e 00:00: 23:59 mouth 2 Medical (AUGMENTIN) 00 :00 (two) Center 875-125 mg times per tablet daily for 3 days. lisinopriL 2021-0 Yes [id number] 10mg Take 1 Univers 10 mg 4-17 tablet by ity of tablet 00:00: mouth at [place] [address] bedtime. Medical Branch metoprolol 2021-0 Yes [id number] 25mg Take 1 Univers tartrate 25 4-17 tablet by ity of mg tablet 00:00: mouth 2 [place] (two) Medical times Branch daily. lisinopriL 2021-0 Yes [id number] 10mg Take 1 Univers 10 mg 4-17 tablet by ity of tablet 00:00: mouth at [place] [address] bedtime. Medical Branch metoprolol 2021-0 Yes [id number] 25mg Take 1 Univers tartrate 25 4-17 tablet by ity of mg tablet 00:00: mouth 2 [place] (two) Medical times Branch daily. lisinopriL Yes [id number] 10mg Take 1 Univers 10 mg 4-17 tablet by ity of tablet 00:00: mouth at [place] [address] bedtime. Medical Branch metoprolol Yes [id number] 25mg Take 1 Univers tartrate 25 4-17 tablet by ity of mg tablet 00:00: mouth 2 [place] (two) Medical times Branch daily. lisinopriL 0 Yes [id number] 10mg Take 1 Univers 10 mg 4-17 tablet by ity of tablet 00:00: mouth at [place] [address] bedtime. Medical Branch metoprolol Yes [id number] 25mg Take 1 Univers tartrate 25 4-17 tablet by ity of mg tablet 00:00: mouth 2 [place] (two) Medical times Branch daily. lisinopriL Yes [id number] 10mg Take 1 Univers 10 mg 4-17 tablet by ity of tablet 00:00: mouth at [place] [address] bedtime. Medical Branch metoprolol Yes [id number] 25mg Take 1 Univers tartrate 25 4-17 tablet by ity of mg tablet 00:00: mouth 2 [place] (two) Medical times Branch daily. Spiriva Spiriva [...] UT 10 MG Oral 10 MG Oral 08-24 ENRIQUE Gonzalez TABLET Physici Tablet Tablet 00:00: DAILY. ans [...] kg 04:00:00 Heart rate 2021-11-12 60 /min [facility] 19:40:00 [facility] Center Respiratory rate 2021-11-12 18 /min [facility] 19:40:00 Medical Center Oxygen saturation 2021-11-12 99 /min [facility] in Arterial blood 19:40:00 Medical nter by Pulse oximetry Systolic blood 2021-11-12 137 mm[Hg] [facility] pressure 16:00:00 Medical Center Diastolic blood 2021-11-12 83 mm[Hg] [facility] pressure 16:00:00 Medical Center Body temperature 2021-11-[address] [facility] 16:00:00 Medical Center Body weight 2021-11-11 81.5 kg [facility] 04:18:00 [facility] Center BMI 2021-11-11 24.37 kg/m2 [facility] 04:18:00 [facility] Body height 2021-11-10 182.9 cm [facility] 04:48:00 [facility] Systolic blood 2020-04-16 141 mm[Hg] Location: LUE; [facility] pressure 07:34:00 Position: Sitting Diastolic blood 2020-04-16 60 mm[Hg] Location: LUE; [facility] ans pressure 07:34:00 Position: Sitting Weight 2020-04-16 173.125 [lb_av] [facility] 07:34:00 Body mass index 2020-04-16 22.23 kg/m2 [facility] (BMI) [Ratio] 07:34:00 Body temperature 2020-04-16 97.2 [degF] Method: [facility] 07:34:00 Tympanic Heart Rate 2020-04-16 59 /min Location: L [facility] 07:34:00 Radial; Quality: Normal O2 SAT 2020-04-16 95 % Source: [facility] 07:34:00 Non-Rebreather O2 SAT 2020-04-07 97 % Source: RA [facility] 14:12:00 Systolic blood 2020-04-07 137 mm[Hg] Location: RUE; [facility] pressure 14:12:00 Position: Sitting Diastolic blood 2020-04-07 74 mm[Hg] Location: RUE; [facility] Phys[facility] ans pressure 14:12:00 Position: Sitting Body [...] OF BENEFITS 2022-03-31 22:21:39 Doctor Unassigned, No [facility] [place] Name Medical Branch AUTHORIZATION FOR 2022-03-02 05:01:00 Doctor Unassigned, No Univ ersity [facility] RELEASE OF PHI Name Medical Branch AUTHORIZATION FOR 2022-02-26 05:01:00 Doctor Unassigned, No Univ ersity [facility] RELEASE OF PHI Name Medical Branch AUTHORIZATION FOR 2022-02-22 05:01:00 Doctor Unassigned, No Univ ersity [facility] RELEASE OF PHI Name Medical Branch POCT-GLUCOSE METER 2021-11-12 15:41:00 [facility] POCT-GLUCOSE METER 2021-11-12 11:18:00 [facility] POCT-GLUCOSE METER 2021-11-12 06:33:00 [facility] CBC W/PLT COUNT & AUTO 2021-11-12 04:33:00 Luis Juventino C [facility] BASIC METABOLIC PANEL 2021-11-12 04:33:00 Juventino Smith [facility] MAGNESIUM 2021-11-12 04:33:00 Juventino Smith [facility] CBC W/PLT COUNT & AUTO 2021-11-12 04:33:00 Juventino Smith [facility] POCT-GLUCOSE METER 2021-11-11 21:38:00 [facility] POCT-GLUCOSE METER 2021-11-11 16:31:00 [facility] POCT-GLUCOSE METER 2021-11-11 11:33:00 [facility] NM MYOCARDIAL PERFUSION 2021-11-11 11:00:00 Bebeto [facility] SPECT, PHARM(LEXISCAN) Center ECG 12-LEAD 2021-11-11 09:26:30 Bebeto [facility] POCT-GLUCOSE METER 2021-11-11 06:42:00 Juventino Smith [facility] XR CHEST 1 VIEW PORTABLE 2021-11-11 05:48:00 Robb Reina [facility] / BEDSIDE Center CBC W/PLT COUNT & AUTO 2021-11-11 04:06:00 SarahJuventino [facility] BASIC METABOLIC PANEL 2021-11-11 04:06:00 LuisSandravinicius Nieto [facility] MAGNESIUM 2021-11-11 04:06:00 [facility] CBC W/PLT COUNT & AUTO 2021-11-11 04:06:00 Luis Juventino C [facility] POCT-GLUCOSE METER 2021-11-10 20:48:00 [facility] N[facility]o [facility] POCT-GLUCOSE METER 2021-11-10 15:39:00 [facility] Juventino C [facility] POCT-GLUCOSE METER 2021-11-10 11:33:00 [facility] Juventino C [facility] BASIC METABOLIC PANEL 2021-11-10 06:58:00 Cheri, [facility] HEPATIC FUNCTION PANEL 2021-11-10 06:58:00 Cheri [facility] CBC W/PLT COUNT & AUTO 2021-11-10 06:58:00 Cheri [facility] CBC W/PLT COUNT & AUTO 2021-11-10 06:58:00 Cheri [facility] POCT-GLUCOSE METER 2021-11-10 06:54:00 Juventino Smith [facility] POCT-GLUCOSE METER 2021-11-09 21:49:00 [facility] POCT-GLUCOSE METER 2021-11-09 16:10:00 [facility] Juventino C [facility] POCT-GLUCOSE METER 2021-11-09 12:19:00 [facility] VENOUS DOPPLER LEGS 2021-11-09 10:33:00 Velma [facility] BILATERAL Center XR CHEST 1 VIEW PORTABLE 2021-11-09 07:32:00 Velma [facility] / BEDSIDE Center POCT-GLUCOSE METER 2021-11-09 07:22:00 Juventino Smith [facility] BASIC METABOLIC PANEL 2021-11-09 04:06:00 Cheri [facility] HEPATIC FUNCTION PANEL 2021-11-09 04:06:00 Cheri [facility] CBC W/PLT COUNT & AUTO 2021-11-09 04:06:00 Cheri [facility] HC LAB HIV-1 AG 2021-11-09 04:06:00 Hubert dominic [place] [facility] W/HIV-1&2 AB [facility] HEPATITIS PANEL, ACUTE 2021-11-09 04:06:00 Hubert dominic [place] I [facility] HEMOGLOBIN A1C 2021-11-09 04:06:00 Hubert dominic [place] [facility] APTT 2021-11-09 04:06:00 Cheri [facility] CBC W/PLT COUNT & AUTO 2021-11-09 04:06:00 Cheri [facility] TROPONIN I 2021-11-09 00:21:00 Cheri [facility] ECG 12-LEAD 2021-11-08 21:26:59 Unknown, Hl7 Doctor [facility] ECG 12-LEAD 2021-11-08 21:26:59 Unknown, Hl7 Doctor [facility] POCT-GLUCOSE METER 2021-11-08 20:43:00 Juventino Smith [facility] APTT 2021-11-08 19:42:00 Cheri [facility] TROPONIN I 2021-11-08 16:28:00 Cheri [facility] GLUCOSE 2021-11-08 16:27:00 Juventino Smith [facility] SPUTUM CULTURE + GRAM 2021-11-08 15:33:00 Guera Yarbrough [facility] US RENAL COMPLETE 2021-11-08 12:14:00 Cheri [facility] POCT-GLUCOSE METER 2021-11-08 11:32:00 Juventino Smith [facility] APTT 2021-11-08 11:22:00 Cheri [facility] TROPONIN I 2021-11-08 11:22:00 Cheri [facility] BASIC METABOLIC PANEL 2021-11-08 11:22:00 Jarvis [facility] 2D ECHO W/ DOPPLER 2021-11-08 10:36:38 Cheri [facility] (CW/PW/COLOR) [place] [facility] CHEST WITHOUT IV 2021-11-08 09:34:00 Cheri [facility] CONTRAST Center NM LUNG PERFUSION SCAN 2021-11-08 09:20:00 Cheri [facility] XR CHEST 1 VIEW PORTABLE 2021-11-08 08:23:00 [facility] APTT 2021-11-08 05:53:00 Cheri [facility] LACTIC ACID, VENOUS 2021-11-08 05:07:00 Cheri [facility] LEGIONELLA ANTIGEN, 2021-11-08 04:17:00 Cheri [facility] URINE Center URINALYSIS WITH 2021-11-08 04:16:00 Cheri [facility] MICROSCOPIC IF INDICATED Center URINALYSIS MICROSCOPIC 2021-11-08 04:16:00 Cheri [facility] TROPONIN I 2021-11-08 04:07:00 Cheri [facility] BLOOD CULTURE 2021-11-08 04:02:00 Cheri [facility] POCT-GLUCOSE METER 2021-11-08 04:00:00 Cheri [facility] PROCALCITONIN 2021-11-08 03:59:00 [facility]ABOLIC PANEL 2021-11-08 03:58:00 Cheri, [facility] HEPATIC FUNCTION PANEL 2021-11-08 03:58:00 Cheri [facility] HEMOGLOBIN A1C 2021-11-08 03:58:00 Cheri [facility] PROTHROMBIN TIME/INR 2021-11-08 03:58:00 Jen Alonzo [facility] MAGNESIUM 2021-11-08 03:58:00 [facility] PHOSPHORUS 2021-11-08 03:58:00 Cheri, [facility] CBC W/PLT COUNT & AUTO 2021-11-08 03:58:00 Cheri, [facility] B-TYPE NATRIURETIC 2021-11-08 03:58:00 Cheri, [facility] (BNP) Center D-DIMER 2021-11-08 03:58:00 Cheri, [facility] CBC W/PLT COUNT & AUTO 2021-11-08 03:58:00 Cheri, [facility] DIFFERENTIAL Center ECG 12-LEAD 2021-11-08 03:52:58 Cheri [facility] ECG 12-LEAD 2021-11-08 03:52:58 Cheri [facility] XR CHEST 1 VIEW PORTABLE 2021-11-08 03:47:00 [facility] XR ABDOMEN/KUB 1 VIEW 2021-11-08 03:47:00 Cheri [facility] PORTABLE Center BLOOD GAS, ARTERIAL 2021-11-08 03:29:00 Jen Alonzo [facility] EKG-SCANNED 2021-11-08 00:00:00 Purvi [facility] Scanning Center PET CT Lung solitary 2020-04-07 00:00:00 [facility] pulm nodule [id number] Plan of Care Planned Activity Planned Date Details Comments Source Future Scheduled 2022-02-25 INFLUENZA VACCINE (#1) [facility] [code = INFLUENZA Medical Ce nter VACCINE (#1)] Future Scheduled 2022-02-25 INFLUENZA VACCINE (#1) [facility] 00:00:00 [code = INFLUENZA Medical Ce nter VACCINE (#1)] Future Scheduled 2021-11-[address] [facility] 00:[facility]:00 WELLNESS (YEAR 2 or Medical Center FIRST YEAR if no IPPE) [code = MEDICARE ANNUAL WELLNESS (YEAR 2 or FIRST YEAR if no IPPE)] Future Scheduled 2021-11-[address] [facility] 00:00:00 WELLNESS (YEAR 2 or Medical Center FIRST YEAR if no IPPE) [code = MEDICARE ANNUAL WELLNESS (YEAR 2 or FIRST YEAR if no IPPE)] Future Scheduled 2021-06-[address] [facility] 00:00:00 (12+) [code = [facility] DEPRESSION SCREENING (12+)] Future Scheduled 2021-06-27 FALLS RISK SCREENING [facility] 00:00:00 [code = FALLS RISK Medical C enter SCREENING] Future Scheduled 2021-06-[address] [facility] 00:00:00 (12+) [code = [facility] DEPRESSION SCREENING (12+)] Future Scheduled 2021-06-27 FALLS RISK SCREENING [facility] 00:00:00 [code = FALLS RISK Medical C enter SCREENING] Diagnostic Test 2020-04-[address] Lung solitary [facility] Pending 00:00:00 pulm nodule 89219 [code = 96745] Diagnostic Test 2020-04-[address] Lung solitary [facility] Pending 00:00:00 pulm nodule 59646 [code = 50571] Future Scheduled [address] [facility] 00:00:00 aneurysm screening Medical C enter (procedure) [code = 471810494] Future Scheduled [address] [facility] 00:00:00 aneurysm screening Medical C enter (procedure) [code = 773545447] Future Scheduled 2002 SHINGLES VACCINES ([address] [facility] 00:00:00 of 2) [code = SHINGLES Medic al Center VACCINES (1 of 2)] Future Scheduled 2002 SHINGLES VACCINES ([address] [facility] 00:00:00 of 2) [code = SHINGLES Medic al Center VACCINES (1 of 2)] Future Scheduled 1971 DTAP/TDAP/TD VACCINES [facility] 00:00:00 (1 - Tdap) [code = Medical C enter DTAP/TDAP/TD VACCINES (1 - Tdap)] Future Scheduled 1971 DTAP/TDAP/TD VACCINES [facility] 00:00:00 (1 - Tdap) [code = Medical C enter DTAP/TDAP/TD VACCINES (1 - Tdap)] Future Scheduled 1958 PNEUMOCOCCAL 65+ YRS [facility] 00:00:00 (1 - PCV) [code = Medical Ce nter PNEUMOCOCCAL 65+ YRS (1 - PCV)] Future Scheduled 1958 PNEUMOCOCCAL 65+ YRS [facility] 00:00:00 (1 - PCV) [code = Medical Ce nter PNEUMOCOCCAL 65+ YRS (1 - PCV)] Future Scheduled 1951-02-18 COVID-19 VACCINE (#1) [facility] 00:00:00 [code = COVID-[address] VACCINE (#1)] Future Scheduled 1951-02-18 COVID-19 VACCINE (#1) [facility] 00:00:00 [code = COVID-[address] VACCINE (#1)] Future Scheduled [address] [facility] 00:00:00 (combo) [code = CT Medical C enter Colonography (combo)] Future Scheduled [address] [facility] 00:[facility]:00 malignant neoplasm of Medica l Center colon (procedure) [code = 232712909] Future Scheduled [address] [facility] 00:00:00 malignant neoplasm of Medica l Center colon (procedure) [code = 653398427] Future Scheduled [address] [facility] 00:00:00 malignant neoplasm of Medica l Center colon (procedure) [code = 868984225] Future Scheduled [address] [facility] 00:00:00 malignant neoplasm of Medica l Center colon (procedure) [code = 092553141] Future Scheduled 1950 Sigmoidoscopy [code = [facility] S[facility]oscopy] Medical Cente r Future Scheduled [address] [facility] 00:00:00 (combo) [code = CT Medical C enter Colonography (combo)] Future Scheduled [address] [facility] 00:00:00 malignant neoplasm of Medica l Center colon (procedure) [code = 788821135] Future Scheduled [address] [facility] 00:00:00 malignant neoplasm of Medica l Center colon (procedure) [code = 739143150] Future Scheduled [address] [facility] 00:00:00 malignant neoplasm of Medica l Center colon (procedure) [code = 250011790] Future Scheduled [address] [facility] 00:00:00 malignant neoplasm of Medica l Center colon (procedure) [code = 565748246] Future Scheduled 1950 Sigmoidoscopy [code [facility] S[facility]oidoscopy] Medical May r Encounters Start End Encounter Admission Attending Care Care Encounter Source Date/Time Date/Time Type Type Clinicians Facility Department ID 2022-03-31 2022-03-31 Orders Doctor CASTRO 1.2.840.114 [id number] Univers 00:00:00 00:00:00 Only Unassigned, MARTHA 350.1.13.10 [facility] [facility] [place] [facility] 4.2.7.2.686 Rolando as [phone] [facility] [address] 2022-03-02 2022-03-02 Orders Doctor MATTHEW Mathew2.840.114 [id number] Univers 00:00:00 00:00:00 Only Unassigned, MARTHA 350.1.13.10 [facility] [place] [facility] 4.2.7.2.686 Rolando as [phone] [facility] 009 Branch 2022-02-26 2022-02-26 Orders Doctor MATTHEW 1.2.840.114 [id number] Univers 00:00:00 00:00:00 Only Unassigned, MARTHA 350.1.13.10 [place] [facility] 4.2.7.2.686 Rolando as [phone] [facility] 009 Branch 2022-02-23 2022-02-23 Transition Felipe VISHNUAlta 1.2.840.114 [id number] Univers 00:00:00 00:00:00 of Care Nyasia B LEHMAN 350.1.13.10 [place] [phone] [facility] 403 Branch 2022-02-22 2022-02-22 Transition Wang VISHNUAlta 1.2.840.114 [id number] Univers 00:00:00 00:00:00 of Care Nyasia B LEHMAN 350.1.13.10 [place] [phone] [facility] [address] 2022-02-22 2022-02-22 Orders Doctor MATTHEW 1.2.840.114 [id number] Univers 00:00:00 00:00:00 Only Unassigned, MARTHA 350.1.13.10 [place] [facility] 4.2.7.2.686 [place] as [phone] [address] 2022-02-20 2022-02-20 Emergency X [facility] ERT [id number] Univers 18:53:00 20:00:00 FELICIA loyola [facility] 2022-02-20 2022-02-20 Emergency [facility] 1.2.840.114 [id number] Univers 18:53:00 20:00:00 Felicia [facility] 350.1.13.10 i [place] [id number] [facility] 014 Branch (CLC) 2022-02-20 2022-02-20 Emergency X [facility] ERT [id number] Univers 18:53:00 20:00:00 FELICIA loyola [facility] 2022-02-14 2022-02-20 [facility] Osbaldo Aguiar [facility] 1.2.840.1 [id number] Univers 14:51:00 17:13:00 Encounter Corwin Walden 350.1.13.10 ity of Jagdeep Fagan [place] 4.2.7.2.686 T Carmelo Foster [phone] [address] ([facility]) 2022-02-14 2022-02-20 Inpatient X REMA [facility] [id number] Univers 14:51:00 17:13:00 CARMELO galo [facility] 2022-02-17 2022-02-17 Surgery [facility] 1.2.840.114 [id number] Univers 09:00:00 11:00:00 [facility] 350.1.13.10 it y of [place] 4.2.7.2.686 Dru [place] [phone] [place] [address] [place] ([facility]) 2022-01-08 2022-01-08 Outpatient DMG DM [id number] Devoted 07:10:00 07:10:00 0715 Medica l Group 2021-12-09 2021-12-09 Outpatient ALA, SLE SLE [id number] [facility]H 00:00:00 00:00:00 MAHBOOB 2021-12-08 2021-12-08 Telephone Haven Ortiz [facility] [id number] 00[facility] 00[facility]00 [facility] 2021-12-08 2021-12-08 Telephone Haven Ortiz [facility] [id number] 00:[facility] 00:00[facility]00 [facility] 2021-11-08 2021-11-12 [facility] [id number] 03:10:00 20:10:00 Encounter Juventino Smith [facility] 2021-11-08 2021-11-12 [facility] [id number] 03:10:00 20:10:00 Encounter Juventino Smith [facility] 2021-11-08 2021-11-12 Inpatient [facility] [id number] [facility] 03:10:00 20:10:00 [facility] 2021-11-10 2021-11-10 Travel [facility] [id number] [facility] 00:00:00 00:00:00 [facility] 2021-11-10 2021-11-10 Travel [facility] [id number] [facility] 00:[facility]00 00:00:00 [facility] 2021-10-11 2021-10-11 Emergency X YARISC, [facility] ERT [id number] Univers 05:52:00 06:48:00 ALADRYAN galo [facility] 2021-10-11 2021-10-11 Emergency [facility], [facility] [id number] Univers 05:52:00 06:48:00 [facility] 350.1.13.10 ity [facility] 4.2.7.2.686 [facility] [id number] [place] [address] Branch 2020-11-21 2020-11-21 Outpatient DMG DMG [id number] [facility] 08:00:00 08:00:00 0528 Medica l Group 2020-05-05 2020-05-05 Outpatient JOHN [facility] PUL [id number] [facility] 13:21:00 15:55:00 PASTORA 2020-04-15 2020-04-15 AppointDOLLY [facility] [id number] [place] 14:00:00 14:00:00 t; [facility] [place] 2020-04-07 2020-04-07 Appointmen DOLLY LOPEZ Pulmonary & [id number] [place] 13:30:00 13:30:00 t; PASTORA LOPEZ [facility] [place] Physi Carlos GUILLORY M.D. Results Test Description Test Time Test Comments Results Result Comments Source BLOOD CULTURE 2021-11-13 07:00:32 Test Item Value Reference Range Interpretation Comme nts CULTURE (BEAKER) (test code = 1095) No growth in 5 days BLOOD [id number] 07:00:32 Test Item Value Reference Range Interpretation Comments CULTURE (BEAKER) (test No growth in 5 days code = 1095) POC-Glucose [id number] 16:01:13 Test Item Value Reference Range Interpretation Comments POC-Glucose Meter (test 136 mg/dL 70-110 H : TE STED AT [facility] code = 1538) [address] [place] [address]1678: Equity Director/Techni brooklyn ID = [id number] for Castaneda, Martina cherry Lab Interpretation (test Abnormal code = 15647-9) [facility] [id number] 16:01:13 Test Item Value Reference Range Interpretation Comments POC-Glucose Meter (test 136 mg/dL 70-110 H : TE STED AT [facility] code = 1538) [address] [place] [address]: Equity Director/Techni brooklyn ID = [id number] for Castaneda, Martina cherry Lab Interpretation (test Abnormal code = 48026-1) [facility] [id number] 16:01:13 Test Item Value Reference Range Interpretation Comments POC-GLUCOSE METER 136 mg/dL 70-110 H : TESTED A T [facility] 1317 (BEAKER) (test code [address] [facility], = 1538) [place] [address]408: Equity Director/Techni brooklyn ID = [id number] for Cerv antes, Crystal POCT-GLUCOSE [id number] 11:30:14 Test Item Value Reference Range Interpretation Comments POC-GLUCOSE METER 112 mg/dL 70-110 H : TESTED A T [facility] 1317 (BEAKER) (test code [address] [facility], = 1538) [place] [address] 478: Equity Director/Techni brooklyn ID = [id number] for Cerv antes, Crystal POCT-GLUCOSE [id number] 06:45:43 Test Item Value Reference Range Interpretation Comments POC-GLUCOSE METER 150 mg/dL 70-110 H : TESTED A T [facility] 1317 (BEAKER) (test code [address] [facility], = 1538) [place] [address] 478: Equity Director/Techni brooklyn ID = [id number] for Taina Poe [id number] 06:05:04 Test Item Value Reference Range Interpretation Comments MAGNESIUM (BEAKER) (test code = 2.2 mg/dL 1.5-3.0 627) Equity Director ID - [id number] ID - [id number] ID - [id number] ID - [id number] METABOLIC [id number] 06:04:06 Test Item Value Reference Range Interpretation [...] 1092) DATA TO CALCULA TE ESTIMATED GFR. Equity Director ID - [id number] ID - [id number] ID - [id number] ID - [id number] ID - [id number] ID - [id number] ID - [id number] ID - [id number] ID - [id number] ID - [id number] W/PLT COUNT & AUTO DIFFERENTIAL 2021-11-12 05:53:41 [...] PERCENT (BEAKER) (test code = 2801) POCT-GLUCOSE [id number] 21:50:33 Test Item Value Reference Range Interpretation Comments POC-GLUCOSE METER 173 mg/dL 70-110 H : TESTED A T [facility] 1317 (BEAKER) (test code [facility] [address], = 1538) [facility] 77 478: Equity Director/Techni brooklyn ID = [id number] for Taina Poe POCT-GLUCOSE [id number] 16:45:23 Test Item Value Reference Range Interpretation Comments POC-GLUCOSE METER 134 mg/dL 70-110 H : TESTED A T [facility] [address]17 (BEAKER) (test code [address], = 1538) [facility] 77 478: Equity Director/Techni brooklyn ID = [id number] for Dapr emont, Heather POCT-GLUCOSE [id number] 11:45:21 Test Item Value Reference Range Interpretation Comments POC-GLUCOSE METER 125 mg/dL 70-110 H : TESTED A T [facility] [address]17 (BEAKER) (test code [address], = 1538) [facility] 77 478: Equity Director/Techni brooklyn ID = [id number] for Dapr emont, Heather Sputum Culture + Gram [id number] 08:54:21 Test Item Value Reference Range Interpretation Comments Result (test code = 4+ Normal respiratory 6463-4) luis eduardo present Gram Stain Result 3+ Mixed luis eduardo (test code = 1123) [facility] Gram [id number] 08:54:21 Test Item Value Reference Range Interpretation Comments Result (test code = 4+ Normal respiratory 6463-4) luis eduardo present Gram Stain Result 3+ Mixed luis eduardo (test code = 1123) [facility] + GRAM [id number] 08:54:21 Test Item Value Reference Range Interpretation Comments CULTURE (BEAKER) 4+ Normal respiratory (test code = 1095) luis eduardo present GRAM STAIN RESULT 1+ White blood cells (BEAKER) (test code = seen 1123) GRAM STAIN RESULT 1+ epithelial cells (BEAKER) (test code = 55109) GRAM STAIN RESULT 3+ Mixed luis eduardo (BEAKER) (test code = 99960) RAD, CHEST, 1 VIEW, NON [id number] 07:33:00Reason for exam:->[facility] : 1950 Sex: MFINAL REPORT CHEST AP PORTABLE SEMIERECT Comparison exam: 11/09/2021 History provided: Pneumonia Heart size normal. Chronic pleural thickening at the right base. Lungs free of acute disease and vascularity normal. Signed: Carlos Navarro MDReport Verified Date/Time: 11/11/2021 07:33:28 Reading Location: [facility] Diagnostic Imaging Reading Room - [facility] [address] [address] POCT-GLUCOSE [id number] 06:54:14 Test Item Value Reference Range Interpretation Comments POC-GLUCOSE METER 133 mg/dL 70-110 H : TESTED A T [facility] 1317 (BEAKER) (test code [facility] [address], = 1538) [facility] 77 478: Equity Director/Techni brooklyn ID = [id number] for Taina Poe [id number] 04:53:42 Test Item Value Reference Range Interpretation Comments MAGNESIUM (BEAKER) (test code = 2.3 mg/dL 1.5-3.0 627) Equity Director ID - [id number] ID - [id number] ID - [id number] ID - [id number] BASIC METABOLIC [id number] 04:52:53 Test Item Value Reference Range Interpretation [...] 1092) DATA TO CALCULA TE ESTIMATED GFR. Equity Director ID - [id number] ID - [id number] ID - [id number] ID - [id number] ID - mejl30Hcppxykq ID - fdzg38Veaggluw ID - [id number] ID - [id number] ID - [id number] ID - [id number] W/PLT COUNT & AUTO [id number] 04:28:30 Test Item Value Reference Range Interpretation [...] code = 2801) 2D Echo W/Doppler(CW/PW/Color)2021-11-11 00:37:05Ejection FractionSLE [facility]CHO [facility]/Doppler(CW/PW/Color)2021-11-11 00:37:05Ejection FractionSLE ECHO HEARTLAB [facility]SE [id number] 20:59:54 Test Item Value Reference Range Interpretation Comments POC-GLUCOSE METER 148 mg/dL 70-110 H : TESTED A T [facility] [address]17 (BEAKER) (test code [address], = 1538) [place] [address]: Equity Director/Techni brooklyn ID = [id number] for Tasha Poeen POCT-GLUCOSE [id number] 15:51:00 Test Item Value Reference Range Interpretation Comments POC-GLUCOSE METER 156 mg/dL 70-110 H : TESTED A T [facility] [address]17 (BEAKER) (test code [address], = 1538) [place] [address]: Equity Director/Techni brooklyn ID = [id number] for Cerv antes, Crystal POCT-GLUCOSE [id number] 11:44:26 Test Item Value Reference Range Interpretation Comments POC-GLUCOSE METER 139 mg/dL 70-110 H : TESTED A T [facility] 1317 (BEAKER) (test code [address], = 1538) [place] 77 [address]: Equity Director/Techni brooklyn ID = [id number] for Shazia Scott BASIC METABOLIC [id number] 07:34:29 Test Item Value Reference Range Interpretation [...] 1092) DATA TO CALCULA TE ESTIMATED GFR. Equity Director ID - DSENSONOperator ID - DSENSONOperator ID [...] (test code = 18 U/L 5-50 347) Equity Director ID - DSENSONOperator ID - DSENSONOperator ID - DSENSONOperator ID - DSENSONOperator ID - DSENSONOperator ID - DSENSONOperator ID - DSENSONOperator ID - DSENSONOperator ID - DSENSONOperator ID - [id number] W/PLT COUNT & AUTO [id number] 07:19:24 Test Item Value Reference Range Interpretation [...] IMMATURE GRANULOCYTES-RELATIVE 1 % 0-0 H PERCENT (AKER) (test code = 2801) POCT-GLUCOSE [id number] 07:05:35 Test Item Value Reference Range Interpretation Comments POC-GLUCOSE METER 129 mg/dL 70-110 H : [facility]ED A T [facility] (BEAKER) (test code [facility], = 1538) [place] [address]: Equity Director/Techni brooklyn ID = [id number] for Anayeli ety, Ruth POCT-GLUCOSE [id number] 22:17:06 Test Item Value Reference Range Interpretation Comments POC-GLUCOSE METER 135 mg/dL 70-110 H : TESTED A T [facility] 1317 ([facility]) (test code [facility], = 1538) [place] [address]: Equity Director/Techni brooklyn ID = [id number] for Anayeli ety, Ruth POCT-GLUCOSE [id number] 16:21:48 Test Item Value Reference Range Interpretation Comments POC-GLUCOSE METER 178 mg/dL 70-110 H : Notified RN/MD: TESTED (AKER) (test code AT [facility] [address] = 1538) [place] [address]: Equity Director/Techni brooklyn ID = [id number] for Alee Calderon HEPATITIS PANEL, [id number] 14:58:49 Test Item Value Reference Range Interpretation Comments HEPATITIS A IGM ANTIBODY (BEAKER) Nonreactive Nonreactive (test code = 498) HEPATITIS B CORE IGM ANTIBODY Nonreactive Nonreactive (BEAKER) (test code = 645) HEPATITIS C ANTIBODY (BEAKER) Nonreactive Nonreactive (test code = 367) HEPATITIS B SURFACE ANTIGEN (2) Nonreactive Nonreactive (BEAKER) (test code = 2585) Equity Director ID - DBOperator ID - DBPOCT-GLUCOSE [id number] 12:30:38 Test Item Value Reference Range Interpretation Comments POC-GLUCOSE METER 184 mg/dL 70-110 H : Notified RN/MD: TESTED (MARLENA) (test code AT [facility] [address] = 1538) [place] [address]: Equity Director/Techni brooklyn ID = [id number] for Alec Bush VENOUS DOPPLER LEGS, [id number] 10:54:00Reason for exam:->DVT [facility] : 1950 Sex: [...] MDReport Verified Date/Time: 11/09/2021 10:54:12 Reading Location: [facility] Radiology Reading Room RAD, CHEST, 1 VIEW, NON [id number] 09:00:00 Reason for exam:->PNAShould this be performed at the bedside?->Yes [facility] : 1950 Sex: MFINAL REPORT TECHNIQUE: Frontal view of the chest. INDICATION: PNA COMPARISON:11/08/2021 DISCUSSION:Limited evaluation due to portable technique. Lines and hardware: EKG leadsHeart and mediastinum: Stable.Lungs and pleura: Stable streaky right basilar airspace opacities with a small effusion. Left lung is grossly clear. Negative for pneumothorax.Soft tissues and bones: No acute abnormality.IMPRESSION:Right basilar airspace opacities and small right effusion are stable. Signed: Jayden Chu MDReport Verified Date/Time: 11/09/2021 09:00:23 Reading Location: [facility] Radiology Reading Room POCT-GLUCOSE [id number] 07:33:54 Test Item Value Reference Range Interpretation Comments POC-GLUCOSE METER 156 mg/dL 70-110 H : Notified RN/MD: TESTED (BEAKER) (test code AT [facility] [address] = 1538) [facility] [address]: Equity Director/Techni brooklyn ID = [id number] for Alec Bush [id number] 05:00:02 Test Item Value Reference Range Interpretation Comments PARTIAL THROMBOPLASTIN 111.6 seconds 23.0-35.0 H Berna l Information TIME ([facility]) (test (Auto Ou tput) code = 760) HIV-1 ANTIGEN WITH HIV-1/2 [id number] 04:53:13 Test Item Value Reference Range Interpretation Comments HIV-1 ANTIGEN WITH HIV 1\T\2 Nonreactive Nonreactive ANTIBODY (2) (BEAKER) (test code = 2586) Equity Director ID - [id number] METABOLIC [id number] 04:38:36 Test Item Value Reference Range Interpretation [...] 1092) DATA TO CALCULA TE ESTIMATED GFR. Equity Director ID - [id number] ID - [id number] ID - [id number] ID - [id number] ID - [id number] ID - [id number] ID - [id number] ID - [id number] ID - ZHTBXGCDD492Znmechxy ID - [id number] FUNCTION [id number] 04:36:24 Test Item Value Reference Range Interpretation [...] (test code = 22 U/L 5-50 347) Equity Director ID - [id number] ID - [id number] ID - [id number] ID - [id number] ID - QGYFJUDIE767Unpdsczk ID - FNHPJYCRT798Idajrarr ID - EWOIBNGRQ205Eznmqfsp ID - [id number] ID - IWQLRBBBQ554Fozojxiy ID - GYRBJSWXG720YJHQSVBZUI [id number] 04:30:27 Test Item Value Reference Range Interpretation Comments HEMOGLOBIN A1C (BEAKER) (test code = 5.8 % 4.3-6.1 368) Equity Director ID - [id number] W/PLT COUNT & AUTO [id number] 04:17:15 Test Item Value Reference Range Interpretation [...] PERCENT (BEAKER) (test code = 2801) TROPONIN [id number] 01:16:05 Test Item Value Reference Range Interpretation [...] failure, acidosis, acute neurological disease, and persistent tachyarrhythmia.Equity Director ID - [id number] [id number] 20:56:12 Test Item Value Reference Range Interpretation Comments POC-GLUCOSE METER 169 mg/dL 70-110 H : Notified RN/MD: TESTED (BEAKER) (test code AT [address] = 1538) [facility] [address]: Equity Director/Techni [place] ID = [id number] for Dottie Collins [id number] 20:43:27 Test Item Value Reference Range Interpretation Comments PARTIAL THROMBOPLASTIN 43.3 seconds 23.0-35.0 H Final Information TIME (BEAKER) (test (Auto Ou tput) code = 760) [id number] 17:13:58 Test Item Value Reference Range Interpretation Comments GLUCOSE RANDOM (BEAKER) (test code 247 mg/dL 70-110 H = 652) Equity Director ID - DSENSONTROPONIN [id number] 17:03:16 Test Item Value Reference Range Interpretation Comments TROPONIN I (BEAKER) (test code = 0.57 ng/mL 0.00-0.15 HH [...] failure, acidosis, acute neurological disease, and persistent tachyarrhythmia.Equity Director ID - DSENSONLegionella antigen, [id number] 14:05:17 Test Item Value Reference Range Interpretation Comments Legionella Urine Negative - see Negative for L. Antigen (test code comment pneumophi la = 48023-6) serogroup 1 ant igen, suggesting no r ecent or current infe ction with this serog roup. Legionellosis c annot be ruled out si nce other serogroup s and species may cau se disease. [facility] HospitalLegion[facility] antigen, [id number] 14:05:17 Test Item Value Reference Range Interpretation Comments Legionella Urine Negative - see Negative for L. Antigen (test code comment pneumophi la = 69511-8) serogroup 1 ant igen, suggesting no r ecent or current infe ction with this serog roup. Legionellosis c annot be ruled out si nce other serogroup s and species may cau se disease. [facility] HospitalLEGIONELLA ANTIGEN, [id number] 14:05:17 Test Item Value Reference Range Interpretation Comments L. PNEUMOPHILA Negative - see Negative fo r L. SEROGP 1 UR AG comment pneumophila (BEAKER) (test code serogrou p 1 antigen, = 1156) suggesting no r ecent or current infe ction with this serog roup. Legionellosis c annot be ruled out si nce other serogroup s and species may cau se disease. U/S, RENAL, [id number] 14:05:00Reason for exam:->elevated creatine [facility] 1950 Sex: [...] renal ultrasound. No hydronephrosis Signed: Cindy Jamison MDRepsaint luke's [facility] Verified Date/Time: 11/08/2021 14:05:00 Reading Location: [facility] C013Y CT Body Reading Room Strep pneumoniae [id number] 14:04:46 Test Item Value Reference Range Interpretation Comments Strep pneumoniae Presumptive negative Presumptive Antigen (test code = [place] [address]-5) pneumonia - see pneumococcal comment pneumonia - [...] test. Lab Interpretation Normal (test code = 13531-7) [facility] [id number] 14:04:46 Test Item Value Reference Range Interpretation Comments Strep pneumoniae Presumptive negative Presumptive Antigen (test code = [place] [address]-7) pneumonia - see pneumococcal comment pneumonia - [...] test. Lab Interpretation Normal (test code = 31955-8) [facility] CenterTRE[facility] PNEUMONIAE [id number] 14:04:46 Test Item Value Reference Range Interpretation [...] the detection limit of the test. TROPONIN [id number] 12:03:41 Test Item Value Reference Range Interpretation Comments TROPONIN I (BEAKER) (test code = 0.60 ng/mL 0.00-0.15 HH 397) Troponin I (TnI) [...] failure, acidosis, acute neurological disease, and persistent tachyarrhythmia.Equity Director ID - DSENSONBASIC METABOLIC [id number] 11:54:31 Test Item Value Reference Range Interpretation [...] mg/dL 8.5-10.5 (test code = 697) EGFR (MARLENA) (test INSUFFIC IENT CLINICAL code = 1092) DATA TO CALCULA TE ESTIMATED GFR. Equity Director ID - DSENSONOperator ID - DSENSONOperator ID - DSENSONOperator ID - DSENSONOperator ID - DSENSONOperator ID - DSENSONOperator ID - DSENSONOperator ID - DSENSONOperator ID - DSENSONOperator ID - DSENSONOperator ID - DSENSONOperator ID - DSENSONOperator ID - [id number] 11:45:04 Test Item Value Reference Range Interpretation Comments PARTIAL THROMBOPLASTIN 44.4 seconds 23.0-35.0 H Final Information TIME (MARLENA) (test (Auto Ou tput) code = 760) POCT-GLUCOSE [id number] 11:43:30 Test Item Value Reference Range Interpretation Comments POC-GLUCOSE METER 141 mg/dL 70-110 H : Notified RN/MD: TESTED (MARLENA) (test code AT [facility] [address] = 1538) [facility] [address]: Equity Director/Techni [place] ID = [id number] for Francisco Javier Concha joynerita PUL PERF IMAGING, [id number] 09:49:00Unlisted Reason for Exam - Click Yes and Enter Reason Below->No [facility] : 1950 Sex: MFINAL REPORT PROCEDURE: LUNG SCAN - perfusion only CPT CODE: 35734 INDICATION: Elevated D-dimer PROTOCOL: 5.8 mCi of [...] Verified Date/Time: 11/08/2021 09:49:42 CT, CHEST, WITHOUT [id number] 09:47:00Unlisted Reason for Exam - Click Yes and Enter Reason Below->No [facility] 1950 Sex: MFINAL [...] entirely exclude superimposed infection. Signed: Carly Smith MDReport Verified Date /Time: 11/08/2021 09:47:14 RAD, CHEST, 1 VIEW, NON [id number] 08:47:00Reason for exam:->ETT placementShould this be performed at the bedside?->Yes [facility] : 1950 Sex: [...] Ou tput) code = 760) LACTIC ACID, [id number] 05:34:16 Test Item Value Reference Range Interpretation Comments LACTATE BLOOD 1.89 mmol/L See_Comment [Automated me ssage] VENOUS (2) (BEAKER) The syst em which (test code = 2872) generated this result transmitted ref erence range: 0.50-<2. 00. The reference range was not used to interpr et this result as normal/abnormal . Equity Director ID - LITOOperator ID - LITOOperator ID - LITOOperator ID - ROSALBA [id number] 05:31:10 Test Item Value Reference Range Interpretation Comments PROCALCITONIN (BEAKER) (test code 0.15 ng/mL <0.05 H = 3036) SEPSIS RISK (ng/mL)Low: 0.05-0.50Intermediate: 0.51-2.00High: >=2.01 Urinalysis with Microscopic If [id number] 05:13:27 Test Item Value Reference Range Interpretation Comments Color, UA (test code = 5778-6) Yellow Clarity, UA (test code = 5767-9) Clear Specific [place], UA (test code = 1.015 1.001-1.035 5811-5) pH, UA (test code = 5803-2) 5.0 5.0-8.0 Protein, UA (test code = 98488-2) Negative Negative Glucose, UA (test code = 365) Negative Negative Ketones, UA (test code = 2514-8) Negative Negative Bilirubin, UA (test code = 14279-9) Negative Negative Blood, UA (test code = 96048-4) Small Negative A Nitrite, UA (test code = 5802-4) Negative Negative Leukocytes, UA (test code = 5799-2) Negative Negative Urobilinogen, UA (test code = 0.2 mg/dL 0.2-1.0 60314-1) Specimen Source (test code = 2795) Lab Interpretation (test code = Abnormal 80937-8) [facility] HospitalUrinalysis with Microscopic If [id number] 05:13:27 Test Item Value Reference Range Interpretation Comments Color, UA (test code = 5778-6) Yellow Clarity, UA (test code = 5767-9) Clear Specific [place], UA (test code = 1.015 1.001-1.035 5811-5) pH, UA (test code = 5803-2) 5.0 5.0-8.0 Protein, UA (test code = 38316-4) Negative Negative Glucose, UA (test code = 365) Negative Negative Ketones, UA (test code = 2514-8) Negative Negative Bilirubin, UA (test code = 47645-4) Negative Negative Blood, UA (test code = 80184-5) Small Negative A Nitrite, UA (test code = 5802-4) Negative Negative Leukocytes, UA (test code = 5799-2) Negative Negative Urobilinogen, UA (test code = 0.2 mg/dL 0.2-1.0 10676-0) Specimen Source (test code = 2795) Lab Interpretation (test code = Abnormal 86215-4) [facility]URINALYSIS WITH MICROSCOPIC IF [id number] 05:13:27 Test Item Value Reference Range Interpretation [...] SOURCE(BEAKER) (test code = 2795) Urinalysis Microscopic [id number] 05:13:21 Test Item Value Reference Range Interpretation Comments RBC, UA (test code = <5 See_Comment [Autom ated message] 799-7) The system [employer] generated this result transmitted ref erence range: /HPF. Th e reference range was not used to int erpret this result as normal/abnormal . WBC, UA (test code = None Seen See_Comment [Autom ated message] 59807-3) The system [employer] generated this result transmitted ref erence range: /HPF. Th e reference range was not used to int erpret this result as normal/abnormal . Bacteria, UA (test Occasional code = 60554-9) SQUAMOUS EPITHELIAL None Seen See_Comment [Automa josh message] (test code = 66789-2) The sy stem which generated this result transmitted ref erence range: /HPF. Th e reference range was not used to int erpret this result as normal/abnormal . HYALINE CASTS (test 0-5 See_Comment [Automa josh message] code = 5796-8) The system [employer] generated this result transmitted ref erence range: /LPF. Th e reference range was not used to int erpret this result as normal/abnormal . [facility] HospitalUrinalysis Microscopic [id number] 05:13:21 Test Item Value Reference Range Interpretation Comments RBC, UA (test code = <5 See_Comment [Autom ated message] 799-7) The system [employer] generated this result transmitted ref erence range: /HPF. Th e reference range was not used to int erpret this result as normal/abnormal . WBC, UA (test code = None Seen See_Comment [Autom ated message] 49853-1) The system [employer] generated this result transmitted ref erence range: /HPF. Th e reference range was not used to int erpret this result as normal/abnormal . Bacteria, UA (test Occasional code = 46902-7) SQUAMOUS EPITHELIAL None Seen See_Comment [Automa josh message] (test code = 25263-8) The sy stem which generated this result transmitted ref erence range: /HPF. Th e reference range was not used to int erpret this result as normal/abnormal . HYALINE CASTS (test 0-5 See_Comment [Automa josh message] code = 5796-8) The system wh ich generated this result transmitted ref erence range: /LPF. Th e reference range was not used to int erpret this result as normal/abnormal . [facility] HospitalURINALYSIS [id number] 05:13:21 Test Item Value Reference Range Interpretation Comments RBC UA-MANUAL (BEAKER) (test <5 /HPF code = 1659) WBC UA-MANUAL (BEAKER) (test None Seen /HPF code = 1661) BACTERIA (BEAKER) (test code = Occasional 517) SQUAMOUS EPITHELIAL MANUAL None Seen /HPF (BEAKER) (test code = 1663) HYALINE CASTS MANUAL (BEAKER) 0-5 /LPF (test code = 1665) TROPONIN [id number] 05:01:28 Test Item Value Reference Range Interpretation [...] failure, acidosis, acute neurological disease, and persistent tachyarrhythmia.Equity Director ID - LITOBASIC METABOLIC PANEL 2021-11-08 05:00:17 [...] 1092) DATA TO CALCULA TE ESTIMATED GFR. Equity Director ID - LITOOperator ID - LITOOperator ID - LITOOperator ID - LITOOperator ID - LITOOperator ID - LITOOperator ID - LITOOperator ID - LITOOperator ID - LITOOperator ID - LITOB-TYPE NATRIURETIC FACTOR (BNP)2021-11-08 05:00:11 Test Item Value Reference Range Interpretation Comments B-TYPE NATRIURETIC PEPTIDE (BEAKER) 480 pg/mL 0-100 H (test code = 700) Equity Director ID - LITOCBC W/PLT COUNT & AUTO [id number] 04:56:38 Test Item Value Reference Range Interpretation [...] H PERCENT (BEAKER) (test code = 2801) [id number] 04:53:09 Test Item Value Reference Range Interpretation Comments D-DIMER QUANTITATIVE 5.80 MG/L FEU <0.50 H Final Information (BEAKER) (test code = (Auto Output) 671) REGARDING D-DIMER RESULTS: The 98% NPV (Negative Predictive Value) for DVT/PE exclusion is 0.50 mg/LFEU as suggested by the irrigator and as approved by the FDA.PROTHROMBIN TIME/[id number] 04:52:30 Test Item Value Reference Range Interpretation Comments PROTIME (BEAKER) 11.0 seconds 9.3-12.0 Final Infor mation (test code = 759) (Auto Outp ut) INR (BEAKER) (test 1.00 See_Comment Final Inf ormation code = 370) (Auto Output) [Automated mess age] The system [employer] generated this result transmitted ref erence range: <=5.90. The reference range was not used to int erpret this result as normal/abnormal . RECOMMENDED COUMADIN/WARFARIN INR THERAPY RANGESSTANDARD DOSE: 2.0 - 3.0 Includes: PROPHYLAXIS for venous thrombosis, systemic embolization; TREATMENT for venous thrombosis and/or pulmonary embolus.HIGH RISK: Target INR is 2.5-3.5 for patients with mechanical heart valves.HEMOGLOBIN [id number] 04:51:27 Test Item Value Reference Range Interpretation Comments HEMOGLOBIN A1C (BEAKER) (test code = 5.7 % 4.3-6.1 368) Equity Director ID - LITOHEPATIC FUNCTION [id number] 04:50:07 Test Item Value Reference Range Interpretation [...] (test code = 31 U/L 5-50 347) Equity Director ID - LITOOperator ID - LITOOperator ID - LITOOperator ID - LITOOperator ID - LITOOperator ID - LITOOperator ID - [id number] 04:49:45 Test Item Value Reference Range Interpretation Comments MAGNESIUM (BEAKER) (test code = 2.8 mg/dL 1.5-3.0 627) Equity Director ID - LITOOperator ID - LITOOperator ID - LITOOperator ID - ROSALBA [id number] 04:46:46 Test Item Value Reference Range Interpretation Comments PHOSPHORUS (BEAKER) (test code = 4.8 mg/dL 2.5-4.5 H 604) Equity Director ID - LITOPOCT-GLUCOSE [id number] 04:11:36 Test Item Value Reference Range Interpretation Comments POC-GLUCOSE METER 156 mg/dL 70-110 H : TESTED A T [address] (BEAKER) (test code [address], = 1538) [facility] [address]: Equity Director/Techni [place] ID = [id number] for Real Lei, ABDOMEN/KUB 1 VIEW [id number] 04:02:00Reason for exam:->NG tube placementB[facility] : 1950 Sex: [...] is no acute osseous abnormality. Signed: Eliot Arredondo MDReportVerified Date/Time: 11/08/2021 04:02:40 Electronically signed by: ELIOT ARREDONDO M.D. on 204:02 AMRAD, CHEST, 1 VIEW, NON [id number] 03:57:00Reason for exam:->AHRFShould this be performed at the bedside?->Yes [facility] : 1950 Sex: [...] Stable contours. Additional findings: None. Signed: Rigo Whaley MDReport Verified Date/Time: 11/08/2021 03:57:41 Blood gas, [id number] 03:54:11 Test Item Value Reference Range Interpretation [...] 75 Lab Interpretation Abnormal (test code = 85962-0) [facility] HospitalBlood gas, [id number] 03:54:11 Test Item Value Reference Range Interpretation [...] 75 Lab Interpretation Abnormal (test code = 31987-5) [facility] HospitalBLOOD GAS, [id number] 03:54:11 Test Item Value Reference Range Interpretation [...]
[2022-05-11] MEDS ORDERED: ALBUTEROL 2.5 MG/3 ML NEB SOL ONE (22:21)
[2022-05-11] MEDS ORDERED: IPRATROPIUM BROM 0.5MG/2.5ML ONE (22:21)
[2022-05-11 22:47] LABS: Blood Gas Oxyhemoglobin 96.4 % (94-97); Blood O2 Saturation 99.6 % (92-98.5)
[2022-05-11] MEDS ORDERED: Levofloxacin 750mg IV 750 MG/150 ML BAG IV ONE (22:59)
[2022-05-11] MEDS ORDERED: METHYLPREDNISOLONE 125 MG INJ ONE (22:59)
[2022-05-11 23:06] LABS: Absolute Lymphocytes (CBC) 1.6 K/uL (0.7-4.9); Hematocrit 45.3 % (39.6-49.0); Lymphocytes % 10.9 % (15.3-44.8); MCV 89.7 fL (80-100); MPV 8.8 fL (7.6-11.3); RBC Red Blood Cell Count 5.05 M/uL (4.33-5.43)
[2022-05-11 23:12] LABS: Protime INR 1.05
[2022-05-11 23:22] LABS: ALT/SGPT 15 U/L (12-78); AST/SGOT 15 U/L (15-37); Albumin 3.9 g/dL (3.4-5.0); Alkaline Phosphatase 86 U/L (45-117); BUN Blood Urea Nitrogen 46 mg/dL (7-18); Bicarbonate 26 mmol/L (21-32); Bilirubin Total 0.3 mg/dL (0.2-1.0); Glomerular Filtration Rate 21 ml/min (=/>90); Glucose Level 239 mg/dL (74-106); NT PRO-BNP 16060 pg/mL (<125); Potassium 4.4 mmol/L (3.5-5.1); Protein, Total 8.2 g/dL (6.4-8.2); Sodium Level 136 mmol/L (136-145)
[2022-05-11 23:28] LABS: Bilirubin Direct < 0.1 mg/dL (0-0.2)
[2022-05-11 23:29] LABS: Troponin High Sensitivity 111.3 pg/mL (<58.9)
--- NOTE | 2022-05-12 00:30 | ER ---
Nurse's Notes [facility] Name: Gabo Chow Sr Age: 71 yrs Sex: Male : 1950 Arrival Date: 05/11/2022 Time: 22:25 Bed 14 Private MD: Diagnosis: COPD/ Chronic obstructive pulmonary disease with (acute) exacerbation Presentation: 05/11 22:25 Chief complaint: EMS states: Pt was getting ready for bed when he suddenly became short jb4 of breath. We gave a 1:1 A:A treatment on scene, pt wanted to be seen in the hospital, became suddenly worse upon arrival. Coronavirus screen: At this time, the client does not indicate any symptoms associated with coronavirus-19. Ebola Screen: No symptoms or risks identified at this time. Initial Sepsis Screen: Does the patient meet any 2 criteria? RR > 20 per min. HR > 90 bpm. Yes Does the patient have a suspected source of infection? No. Patient's initial sepsis screen is negative. Risk Assessment: Do you want to hurt yourself or someone else? Patient reports no desire to harm self or others. Onset of symptoms was May 11, 2022. Transition of care: patient was not received from another setting of care. 22:25 Method Of Arrival: EMS: [facility] jb4 22:25 Acuity: ALLI 2 jb4 Historical: - Allergies: 22:27 No Known Allergies; jb4 - PMHx: 22:27 CHF; COPD; HTN; Hypertension; PR; Myocardial infarction; jb4 - PSHx: 22:27 heart stent; Stented artery; jb4 - Immunization history:: Adult Immunizations unknown. - Social history:: Smoking status: unknown. - Family history:: not pertinent. Screenin:25 Abuse screen: Denies threats or abuse. Nutritional screening: No deficits noted. jb4 Tuberculosis screening: No symptoms or risk factors identified. Fall Risk None identified. Assessment: 22:30 General: Appears distressed, uncomfortable, Behavior is cooperative, anxious. Pain: jb4 Denies pain. Neuro: Level of Consciousness is awake, alert, obeys commands, Oriented to person, place, time, situation. Cardiovascular: Patient's skin is warm and dry. Respiratory: Airway is patent Respiratory effort is even, labored, using tripod position, Respiratory pattern is symmetrical, tachypnea. GI: No signs and/or symptoms were reported involving the gastrointestinal system. : No signs and/or symptoms were reported regarding the genitourinary system. EENT: No signs and/or symptoms were reported regarding the EENT system. Derm: Skin is intact, Skin is diaphoretic, Skin is normal, Skin temperature is warm. 23:55 Reassessment: Patient appears in no apparent distress at this time. Patient and/or jb4 family updated on plan of care and expected duration. Pain level reassessed. Patient is alert, oriented x 3, equal unlabored respirations, skin warm/dry/pink. 05/12 00:38 Reassessment: Patient appears in no apparent distress at this time. Patient and/or jb4 family updated on plan of care and expected duration. Pain level reassessed. Patient is alert, oriented x 3, equal unlabored respirations, skin warm/dry/pink. 02:00 Reassessment: Patient appears in no apparent distress at this time. Patient and/or jb4 family updated on plan of care and expected duration. Pain level reassessed. Patient is alert, oriented x 3, equal unlabored respirations, skin warm/dry/pink. Vital Signs: 05/11 22:25 BP 158 / 100; Pulse 141; Resp 28; Pulse Ox 92% ; jb4 23:45 BP 144 / 70; Pulse 97; Resp 19; Pulse Ox 100% on BiPAP; jb4 05/12 00:30 BP 142 / 67; Pulse 97; Resp 20; Pulse Ox 100% on BiPAP; jb4 01:15 BP 120 / 53; Pulse 89; Resp 20; Pulse Ox 100% on BiPAP; jb4 02:45 BP 130 / 68; Pulse 81; Resp 20 S; Pulse Ox 100% on BiPAP; jb4 ED Course: 05/11 22:25 Patient arrived in ED. jb4 22:27 Triage completed. jb4 22:27 Miah Roman MD is Attending Physician. rt 22:27 Arm band placed on right wrist. jb4 22:46 Harman Nicholas, DERIC is Primary Nurse. jb4 22:48 BMP Sent. jb4 22:48 CBC with Diff Sent. jb4 22:49 Hepatic Function Sent. jb4 22:49 NT PRO-BNP Sent. jb4 22:49 PT-INR Sent. jb4 22:49 Ptt, Activated Sent. jb4 22:49 Troponin HS Sent. jb4 05/12 00:29 Monica Ling PA-C is Hospitalizing Provider. rt 03:36 No provider procedures requiring assistance completed. Patient admitted, IV remains in jb4 place. Administered Medications: 05/11 22:20 Drug: DuoNeb (albuterol 2.5 mg, ipratropium 0.5 mg) (3:1) (2.5 mg - 0.5 mg) 3 ml Route: jb4 Nebulizer; 23:06 Not Given (included in duo nebb): Albuterol 5 mg Inhalation once jb4 23:06 Drug: LevaQUIN (levofloxacin) 750 mg Volume: 150 ml; Route: IVPB; Infused Over: 90 jb4 mins; Site: right forearm; 23:07 Drug: SOLU-Medrol (methylPrednisoLONE) 125 mg Route: IVP; Site: right forearm; jb4 Medication: 05/12 11:10 VIS not applicable for this client. kr3 Outcome: 00:29 Decision to Hospitalize by Provider. rt 02:00 Admitted to ER Hold. Please see [facility] for further documentation. jb4 02:00 Condition: stable 02:00 Discharge instructions given to patient, Instructed on the need for admit. 11:59 Patient left the ED. kr3 Signatures: Harman Nicholas RN RN jb4 Parisa Hodges RN RN kr3 Miah Roman MD MD rt
--- NOTE | 2022-05-12 00:30 | EDPHYS ---
Physician Documentation [facility] Name: Gabo Chow Sr Age: 71 yrs Sex: Male : 1950 Arrival Date: 05/11/2022 Time: 22:25 Bed 14 Private MD: ED Physician Miah Roman HPI: 05/11 22:53 This 71 yrs old Male presents to ER via EMS with complaints of shortness of breath. rt 22:53 The patient has shortness of breath at rest. Onset: The symptoms/episode began/occurred rt 1 hour(s) ago. Duration: The symptoms are continuous. The patient's shortness of breath is aggravated by light activity. Associated signs and symptoms: The patient has no apparent associated signs or symptoms. Severity of symptoms: At their worst the symptoms were severe. She presents to the ED with an acute dyspnea. Patient was admitted yesterday on BiPAP, subsequently discharged after significant provement of his symptoms. He states that he felt well when he went home, however, shortly thereafter became acutely short of breath again. Reports a cough. Denies other acute complaints, symptoms are severe severity, no other aggravating or alleviating factors.. Historical: - Allergies: 22:27 No Known Allergies; jb4 - PMHx: 22:27 CHF; COPD; HTN; Hypertension; ND; Myocardial infarction; jb4 - PSHx: 22:27 heart stent; Stented artery; jb4 - Immunization history:: Adult Immunizations unknown. - Social history:: Smoking status: unknown. - Family history:: not pertinent. ROS: 22:53 Constitutional: Negative for fever, chills, and weight loss, Eyes: Negative for injury, rt pain, redness, and discharge, ENT: Negative for injury, pain, and discharge, Neck: Negative for injury, pain, and swelling, Cardiovascular: Negative for chest pain, palpitations, and edema, Abdomen/GI: Negative for abdominal pain, nausea, vomiting, diarrhea, and constipation, MS/Extremity: Negative for injury and deformity, Skin: Negative for injury, rash, and discoloration, Neuro: Negative for headache, weakness, numbness, tingling, and seizure, Psych: Negative for depression, anxiety, suicide ideation, homicidal ideation, and hallucinations. 22:53 Respiratory: Positive for cough, shortness of breath. Exam: 22:53 Constitutional: This is a well developed, well nourished patient who is awake, alert, rt and in no acute distress. Head/Face: Normocephalic, atraumatic. ENT: Nares patent. No nasal discharge, no septal abnormalities noted. Tympanic membranes are normal and external auditory canals are clear. Oropharynx with no redness, swelling, or masses, exudates, or evidence of obstruction, uvula midline. Mucous membranes moist. Neck: Trachea midline, no thyromegaly or masses palpated, and no cervical lymphadenopathy. Supple, full range of motion without nuchal rigidity, or vertebral point tenderness. No Meningismus. Chest/axilla: Normal chest wall appearance and motion. Nontender with no deformity. No lesions are appreciated. Abdomen/GI: Soft, non-tender, with normal bowel sounds. No distension or tympany. No guarding or rebound. No evidence of tenderness throughout. MS/ Extremity: Pulses equal, no cyanosis. Neurovascular intact. Full, normal range of motion. Neuro: Awake and alert, GCS 15, oriented to person, place, time, and situation. Cranial nerves II-XII grossly intact. Motor strength 5/5 in all extremities. Sensory grossly intact. Cerebellar exam normal. Normal gait. Psych: Awake, alert, with orientation to person, place and time. Behavior, mood, and affect are within normal limits. 22:53 Cardiovascular: Tachycardic, regular rhythm, heart sounds normal. 22:53 Respiratory: Respiratory distress, decreased breath sounds with wheezes heard on all lung owusu.. 22:53 Skin: Warm, diaphoretic. 23:40 ECG was reviewed by the Attending Physician. rt Vital Signs: 22:25 BP 158 / 100; Pulse 141; Resp 28; Pulse Ox 92% ; jb4 23:45 BP 144 / 70; Pulse 97; Resp 19; Pulse Ox 100% on BiPAP; jb4 05/12 00:30 BP 142 / 67; Pulse 97; Resp 20; Pulse Ox 100% on BiPAP; jb4 01:15 BP 120 / 53; Pulse 89; Resp 20; Pulse Ox 100% on BiPAP; jb4 02:45 BP 130 / 68; Pulse 81; Resp 20 S; Pulse Ox 100% on BiPAP; jb4 MDM: 05/11 22:27 Patient medically screened. rt 05/12 00:29 Differential diagnosis: CHF exacerbation, Chronic Obstructive Pulmonary Disease rt Myocardial Infarction pneumonia, Pneumothorax Pulmonary Embolism. Data reviewed: vital signs, nurses notes, old medical records, lab test result(s), EKG, radiologic studies. ED course: Who presents to the ED with dyspnea, worsening since discharge today. Is found to have respiratory distress, restarted on BiPAP. Solu-Medrol was given, bronchodilators are given with significant proved the patient symptoms, will admit for further care.. 05/11 22:29 Order name: ABG; Complete Time: 22:59 rt 05/11 22:29 Order name: BMP; Complete Time: 23:31 rt 05/11 22:29 Order name: CBC with Diff; Complete Time: 23:20 rt 05/11 22:29 Order name: Hepatic Function; Complete Time: 23:31 rt 05/11 22:29 Order name: NT PRO-BNP; Complete Time: 23:31 rt 05/11 22:29 Order name: PT-INR; Complete Time: 23:20 rt 05/11 22:29 Order name: Ptt, Activated; Complete Time: 23:20 rt 05/11 22:29 Order name: Troponin HS; Complete Time: 23:31 rt 05/11 22:29 Order name: BIPAP rt 05/12 07:25 Order name: Urinalysis EDOR 05/11 22:29 Order name: EKG; Complete Time: 22:30 rt 05/11 22:29 Order name: Cardiac monitoring; Complete Time: 22:48 rt 05/11 22:29 Order name: EKG - Nurse/Tech; Complete Time: 23:41 rt 05/11 22:29 Order name: IV Saline Lock; Complete Time: 22:48 rt 05/11 22:29 Order name: Labs collected and sent; Complete Time: 22:48 rt 05/11 22:29 Order name: O2 Per Protocol; Complete Time: 22:48 rt 05/11 22:29 Order name: O2 Sat Monitoring; Complete Time: 22:48 rt EC/15 23:40 Rate is 97 beats/min. Rhythm is regular, Sinus bradycardia with Unifocal PVCs. QRS [place] rt is Normal. [place] interval is normal. QRS interval is normal. QT interval is normal at 480 msec. Interpreted by me. Administered Medications: 22:20 Drug: DuoNeb (albuterol 2.5 mg, ipratropium 0.5 mg) (3:1) (2.5 mg - 0.5 mg) 3 ml Route: jb4 Nebulizer; 23:06 Not Given (included in duo nebb): Albuterol 5 mg Inhalation once jb4 23:06 Drug: LevaQUIN (levofloxacin) 750 mg Volume: 150 ml; Route: IVPB; Infused Over: 90 jb4 mins; Site: right forearm; 23:07 Drug: SOLU-Medrol (methylPrednisoLONE) 125 mg Route: IVP; Site: right forearm; jb4 Disposition: 05/12 00:29 Critical Care:. rt Disposition Summary: 05/12/22 00:29 Hospitalization Ordered Hospitalization Status: Inpatient Admission rt Provider: Monica Ling rt Condition: Fair rt Problem: an ongoing problem rt Symptoms: have improved rt Bed/Room Type: Standard rt Location: Telemetry/MedSurg (Inpatient)(05/12/22 10:56) bd Room Assignment: [facility](05/12/22 10:56) bd Diagnosis - COPD/ Chronic obstructive pulmonary disease with (acute) exacerbation rt Forms: - Medication Reconciliation Form rt - SBAR form rt Critical care time excluding procedures: 00:29 Critical care time: Bedside Care: 30 minutes, Consultation: 5 minutes. Total time: 35 rt minutes Signatures: Dispatcher [employer] EDDedra Lopez Cindy, DERIC RN Harman Clarke RN RN jb4 Miah Roman MD MD rt Corrections: (The following items were deleted from the chart) 01:43 00:29 Telemetry/MedSurg (Inpatient) rt cg 01:43 00:29 rt cg 10: 01:43 [facility] ER HOLD cg bd : 01:43 ERHOLD- cg bd
--- NOTE | 2022-05-12 00:56 | P.HP ---
Certification for Inpatient Patient admitted to: Inpatient With expected LOS: <2 Midnights Patient will require the following post-hospital care: None Practitioner: I am a practitioner with admitting privileges, knowledge of patient current condition, hospital course, and medical plan of care. Services: Services provided to patient in accordance with Admission requirements found in Title 42 Section 412.3 of the Code of Federal Regulations Patient History Date of Service: 05/12/22 Primary Care Provider: Anton Reason for admission: COPD Exacerbation History of Present Illness: Patient is a 71-year-old male with history of COPD, diastolic CHF, CKD3b, hypertension, and CAD who presented to the ED via EMS with complaints of muna rtness of breath. He was tachycardic, tachypneic, and saturating 92% on RA. Patient was admitted 24 hours ago for a similar presentation and treated for COPD exacerbation with IV steroid, scheduled bronchodilators and antibiotics. His respiratory condition improved rapidly with treatment, he was weaned off oxygen to room air, was able to ambulate without shortness of breath or hypoxia, and was discharged home. He returns this evening with worsening shortness of breath and requiring bipap. His creatinine is 3.12 (up from 2.3 yesterday), BUN 46 (up from 27), BNP 64733, troponin stable. ABG shows an improvement in hypercapnia. He was given solumedrol, levaquin, and breathing treatment in ED. Patient is admitted for further management. Allergies No Known Allergies Allergy (Verified 03/03/22 08:27) Home Medications: Albuterol Sulfate [Albuterol Sulfate Hfa] 1 puff IH DAILY 02/05/22 Aspirin [Aspirin EC] 81 mg PO DAILY 04/05/22 Clopidogrel Bisulfate [Plavix] 75 mg PO DAILY 04/05/22 Metoprolol Tartrate 25 mg PO BID 04/05/22 Vericiguat [Verquvo] 2.5 mg PO BEDTIME 04/05/22 Apixaban [Eliquis] 5 mg PO BID #60 tab 04/09/22 Fluticasone/Umeclidin/Vilanter [Trelegy Ellipta 200-62.5-25] 1 each IH BID #1 inh 05/11/22 Furosemide [Lasix] 40 mg PO BID #60 tab 05/11/22 levoFLOXacin [Levaquin*] 500 mg PO DAILY #5 tab 05/11/22 predniSONE [Prednisone*] 40 mg PO DAILY 3 Days #6 tab 05/11/22 - Past Medical/Surgical History Diabetic: No -: HTN -: COPD -: HTN -: CHF -: CKD followed by Dr. Roy -: CAD -: heart stent Psychosocial/ Personal History: Patient lives at home with his . - Family History Father -: Heart disease Notes: Heart attack Mother -: Lung disease Notes: COPd - Social History Smoking Status: Current every day smoker Alcohol use: No CD- Drugs: No Caffeine use: Yes Place of Residence: Home Review of Systems Respiratory: Shortness of Breath Physical Examination - Physical Exam General: Alert, In no apparent distress HEENT: Atraumatic, PERRLA, EOMI, Sclerae nonicteric Neck: Supple, 2+ carotid pulse no bruit, No LAD, Without JVD or thyroid abnormality Respiratory: Expiratory wheezes Cardiovascular: Regular rate/rhythm, Normal S1 S2 Gastrointestinal: Normal bowel sounds, No tenderness Musculoskeletal: No tenderness Integumentary: No rashes Neurological: Normal speech, Normal strength at 5/5 x4 extr, Normal tone, Normal affect - Studies Laboratory Data (last 24 hrs) 05/11/22 22:40: PT 11.6, INR 1.05, APTT 34.8 05/11/22 22:40: WBC 15.00 H, Hgb 14.5 D, Hct 45.3, Plt Count 374 05/11/22 22:40: Sodium 136, Potassium 4.4, BUN 46 H, Creatinine 3.12 H, Glucose 239 H, Total Bilirubin 0.3, AST 15, ALT 15, Alkaline Phosphatase 86 Assessment and Plan - Problems (Diagnosis) (1) Acute on chronic diastolic heart failure Current Visit: Yes Status: Chronic (2) Acute respiratory failure with hypercapnia Current Visit: Yes Status: Acute (3) COPD exacerbation Current Visit: Yes Status: Acute (4) Troponin level elevated Current Visit: Yes Status: Chronic (5) CAD (coronary artery disease) Current Visit: Yes Status: Chronic Qualifiers: Coronary Disease-Associated Artery/Lesion type: [place] artery [place] vs. transplanted heart: [place] heart Associated angina: without angina Qualified Code(s): I25.10 - Atherosclerotic heart disease of [place] coronary artery without angina pectoris (6) CKD (chronic kidney disease) stage 3, GFR 30-59 ml/min Current Visit: Yes Status: Chronic Qualifiers: Chronic kidney disease stage 3 subtype: stage 3b (GFR 30-44) Qualified Code(s): N18.32 - Chronic kidney disease, stage 3b (7) HTN (hypertension) Current Visit: Yes Status: Chronic Qualifiers: Hypertension type: primary hypertension Qualified Code(s): I10 - Essential (primary) hypertension (8) Nicotine dependence Current Visit: Yes Status: Chronic Qualifiers: Nicotine product type: cigarettes Substance use status: uncomplicated Qualified Code(s): F17.210 - Nicotine dependence, cigarettes, uncomplicated - Plan Patient currently requiring bipap. Wean as tolerated. Monitor pulse oximetry. Fluid restriction. Monitor intake and output. Daily weight. Lasix daily. Last echo EF ~50%. Troponin chronically elevated secondary to demand ischemia. Patient had cath 2 months ago and cardiology recommended medical management. Kidney function has slightly worsened. Hold nephrotoxic agents. Scheduled nebs, bronchodilators, and prednisone. Levaquin for infectious bronchitis. Increasing leukocytosis likely secondary to steroid use. Tobacco cessation counseling. Nicoderm patch as needed. Pulmonology consult Monitor and replete electrolytes per protocol Reconcile and continue home medications Lovenox for VTE ppx Full code Discharge Plan: Home Plan to discharge in: 48 Hours - Advance Directives Does patient have a Living Will: No Does patient have a Durable POA for Healthcare: No - Code Status/Comfort Care Code Status Assessed: Yes (Full) Critical Care: No Time Spent Managing Pts Care (In Minutes): 50
[2022-05-12] MEDS: ALBUTEROL 2.5 MG/3 ML NEB SOL NEB SCH ×4 (03:21→20:50)
[2022-05-12] MEDS ORDERED: ONDANSETRON 4 MG/2 ML VIAL IV PRN (03:21)
[2022-05-12] MEDS: IPRATROPIUM BROM 0.5MG/2.5ML NEB SCH ×4 (03:21→20:50)
[2022-05-12] MEDS ORDERED: ACETAMINOPHEN 325 MG TABLET PO PRN (03:21)
[2022-05-12 07:13] LABS: Urine Mucus Slight /HPF (None Seen)
[2022-05-12 07:25] LABS: Specific Gravity 1.016 (1.005-1.030); Urine Bacteria <20 /HPF (<20); Urine Bilirubin NEGATIVE (Negative); Urine Blood 1+ (Negative); Urine Clarity Clear (Clear); Urine Color Light-Yellow (Yellow); Urine Crystals Unidentified Few /HPF (None Seen); Urine Glucose TRACE (Negative); Urine Protein 1+ (Negative); Urine Urobilinogen Normal (Normal)
[2022-05-12] MEDS: ENOXAPARIN 30 MG/0.3 ML SQ SCH (09:00)
[2022-05-12] MEDS ORDERED: levoFLOXacin 250 MG TAB PO SCH (09:00)
[2022-05-12] MEDS: predniSONE 20 MG TAB PO SCH (09:00)
[2022-05-12] MEDS ORDERED: levoFLOXacin 250 MG TAB ONE (09:40)
[2022-05-12] MEDS ORDERED: ENOXAPARIN 30 MG/0.3 ML SQ ONE (09:40)
[2022-05-12] MEDS ORDERED: ALBUTEROL 2.5 MG/3 ML NEB SOL ONE (09:53)
[2022-05-12] MEDS ORDERED: IPRATROPIUM BROM 0.5MG/2.5ML ONE (09:53)
[2022-05-12] MEDS ORDERED: predniSONE 20 MG TAB ONE (10:06)
--- NOTE | 2022-05-12 14:14 | P.PN ---
Subjective Date of Service: 05/12/22 Primary Care Provider: Anton Chief Complaint: COPD Exacerbation Patient was initially in respiratory distress and required BiPAP on arrival to the ED. He is currently doing well on room air. He denies shortness of breath. Physical Examination - Vital Signs Temperature: 98.3 F Blood Pressure: 138/67 Pulse: 98 Respirations: 20 Pulse Ox (%): 95 - Studies Laboratory Data (last 24 hrs) 05/11/22 22:40: PT 11.6, INR 1.05, APTT 34.8 05/11/22 22:40: WBC 15.00 H, Hgb 14.5 D, Hct 45.3, Plt Count 374 05/11/22 22:40: Sodium 136, Potassium 4.4, BUN 46 H, Creatinine 3.12 H, Glucose 239 H, Total Bilirubin 0.3, AST 15, ALT 15, Alkaline Phosphatase 86 Assessment And Plan - Current Problems (Diagnosis) (1) COPD exacerbation Current Visit: Yes Status: Acute (2) Acute on chronic diastolic heart failure Current Visit: Yes Status: Chronic (3) Acute respiratory failure with hypoxia Current Visit: Yes Status: Acute (4) CKD (chronic kidney disease) stage 3, GFR 30-59 ml/min Current Visit: No Status: Chronic Qualifiers: - Plan Physical Exam General: Alert, In no apparent distress HEENT: Atraumatic, PERRLA, EOMI, Sclerae nonicteric Neck: Supple, No LAD, no JVD elevation. Respiratory: Mild scattered wheezes. Cardiovascular: Regular rate/rhythm, Normal S1 S2 Gastrointestinal: Normal bowel sounds, No tenderness Musculoskeletal: No tenderness Integumentary: No rashes Neurological: No focal motor deficit. Plan: Readmit. Treated with bronchodilators, steroid, oral Levaquin IV Lasix for CHF exacerbation. Monitor intake and output. Supplemental oxygen as needed. Assess functional status and oxygen requirement with exertion. Continue other home medications. Possible discharge in a.m. if he continues to improve.
[2022-05-12] MEDS ORDERED: PNEUMOCOCCAL VACCINE 0.5 ML IMVAC ONE (16:00)
--- NOTE | 2022-05-12 19:01 | EKG ---
Test Date: 2022-05-11 Test Time: 23:35:42 Crate Opener: MEASUREMENT RESULTS: Intervals: Rate: 97 [place]: 160 QRSD: 134 QT: 378 QTc: 480 [place]: P: 93 [place]: 160 QRS: 15 T: 149 INTERPRETIVE STATEMENTS: Sinus rhythm with premature supraventricular complexes and with occasional premature ventricular complexes Nonspecific intraventricular block Cannot rule out Septal infarct, age undetermined T wave abnormality, consider inferolateral ischemia Abnormal ECG Compared to ECG 05/10/2022 22:42:03 Atrial premature complex(es) now present Myocardial infarct finding now present T-wave abnormality now present Possible ischemia now present Left bundle-branch block no longer present Electronically Signed On 05-12-22 19:00:28 MAT MAKER by Irvin Turner
[2022-05-13] MEDS: IPRATROPIUM BROM 0.5MG/2.5ML NEB SCH ×4 (02:10→20:25)
[2022-05-13] MEDS: ALBUTEROL 2.5 MG/3 ML NEB SOL NEB SCH ×4 (02:10→20:25)
[2022-05-13 06:03] LABS: Magnesium 2.3 mg/dL (1.8-2.4); Phosphorus 3.8 mg/dL (2.5-4.9); Potassium 4.6 mmol/L (3.5-5.1)
[2022-05-13 06:16] LABS: Hematocrit 34.8 % (39.6-49.0); MCV 89.3 fL (80-100); MPV 8.9 fL (7.6-11.3)
[2022-05-13] MEDS: ARFORMOTEROL TARTRATE 15 MCG/2 ML VIAL.NEB NEB SCH ×2 (08:18→20:25)
--- NOTE | 2022-05-13 08:22 | P.PN ---
Subjective Date of Service: 05/13/22 Primary Care Provider: Anton Chief Complaint: COPD Exacerbation Patient is 71 years of age recurrent hospital admissions with COPD exacerbation was recently discharged came back again complaining of chest congestion worsening shortness of breath wheezing Advair at home steroids did not tolerate Entresto also has renal failure Review of Systems General: Weakness Respiratory: Cough, Shortness of Breath Physical Examination - Vital Signs Temperature: 98.1 F Blood Pressure: 148/71 Pulse: 85 Respirations: 20 Pulse Ox (%): 99 - Physical Exam General: Alert, Mild distress Respiratory: Diminished, Expiratory wheezes Cardiovascular: No edema, Normal S1 S2 Gastrointestinal: Normal bowel sounds, Soft and benign Assessment And Plan - Current Problems (Diagnosis) (1) COPD exacerbation Current Visit: Yes Status: Acute Plan: Patient is 71 years of age recurrent hospital admissions for COPD exacerbation he has acute on chronic renal failure troponins mildly elevated the patient is also had a cath this year patient has diffuse coronary artery disease patient is at risk for resistant infections due to recurrent hospitalizations changed to meropenem DC levofloxacin chest x-ray ordered labs reviewed is mildly hypercapnic white count is mildly elevated
[2022-05-13] MEDS: ENOXAPARIN 30 MG/0.3 ML SQ SCH (08:46)
[2022-05-13] MEDS: predniSONE 20 MG TAB PO SCH (08:46)
[2022-05-13] MEDS: Meropenem 500 MG in NA CHLORIDE 0.9% 100 ML IV SCH ×2 (08:46→21:46)
[2022-05-13] MEDS: FUROSEMIDE 40 MG/4 ML VIAL IV SCH (08:59)
[2022-05-13 09:04] LABS: Blood Morphology Comment NOT SEEN (NOT SEEN); Platelet Estimate ADEQ
--- NOTE | 2022-05-13 09:49 | RAD REPORT ---
EXAM DESCRIPTION: RAD - Chest Single View - 05/13/2022 9:23 am CLINICAL HISTORY: COPD exacerbation Chest pain. COMPARISON: Chest Single View dated 05/11/2022; Chest Single View dated 04/05/2022; Chest Single Vie w dated 02/07/2022; Chest Single View dated 02/06/2022; Thorax Wo Con dated 05/05/2022 FINDINGS: Portable technique limits examination quality. Small to moderate right pleural effusion is identified. Mildly prominent interstitial lung markings b ilaterally, slightly more prominent in the right lower lung since comparative study. The heart is mil dly to moderately enlarged. No displaced fractures. IMPRESSION: Slight worsening in right lung base aeration since prior study.
--- NOTE | 2022-05-13 11:16 | RAD REPORT ---
EXAM DESCRIPTION: CT - Thorax Wo Con CLINICAL HISTORY: Chest pain atelectasis COMPARISON: Thorax Wo Con dated 05/05/2022; Chest Single View dated 05/13/2022 FINDINGS: Calcified granuloma seen in the right upper lobe posteriorly. Advanced COPD is noted. Area s of atelectasis are present in the right lung base laterally and right middle lobe. Small bilateral pleural effusions are noted. No pericardial fluid. No pneumothorax. No axillary, mediastinal or hilar adenopathy. No concerning bony finding. No gross upper abdominal finding. All CT scans are performed using dose optimization technique as appropriate and may include automated exposure control or mA/KV adjustment according to patient size. IMPRESSION: Advanced COPD is present with areas of mild atelectasis in the right middle lobe and rig ht lung base. Small bilateral pleural effusions.
--- NOTE | 2022-05-13 11:24 | P.CNS ---
Date of Consult: 05/13/22 Reason for Consult: Renal insufficiency Requesting Physician: moisés barrientos Primary Care Provider: Anton Chief Complaint: COPD Exacerbation History of Present Illness: Patient is a 71-year-old male with history of chronic on going tobacco use, moderate COPD with freq exacerbations, chronic CHF, hypertension, CAD and renal insufficiency with several MEHREEN on CKD episodes this year who was last in the hospital back in Mar, he did test positive for COVID-19 infection then. He did have MEHREEN then. He is back in the hospital and reports that shortness of breath acutely worsened. He reports weight had been stable, he denies peripheral edema. He reports compliance with Lasix diuretics and had been taking 40 mg BID he reports. Allergies No Known Allergies Allergy (Verified 03/03/22 08:27) Home Medications: Albuterol Sulfate [Albuterol Sulfate Hfa] 1 puff IH DAILY 02/05/22 Aspirin [Aspirin EC] 81 mg PO DAILY 04/05/22 Clopidogrel Bisulfate [Plavix] 75 mg PO DAILY 04/05/22 Metoprolol Tartrate 25 mg PO BID 04/05/22 Vericiguat [Verquvo] 2.5 mg PO BEDTIME 04/05/22 Apixaban [Eliquis] 5 mg PO BID #60 tab 04/09/22 Furosemide [Lasix] 40 mg PO BID #60 tab 05/11/22 levoFLOXacin [Levaquin*] 500 mg PO DAILY #5 tab 05/11/22 Fluticasone/Salmeterol [Advair 250-50 Diskus] 1 each IH BID #1 kit 05/13/22 Ipratropium/Albuterol Sulfate [Iprat-Albut 0.5-3(2.5) mg/3 ml] 3 ml IH QID PRN #120 amp 05/13/22 Nebulizer 1 each QID #1 kit 05/13/22 predniSONE [Deltasone*] 10 mg PO BID #10 tab 05/13/22 - Past Medical/Surgical History Diabetic: No -: HTN -: COPD -: HTN -: CHF -: CKD followed by Dr. Roy -: CAD -: heart stent Psychosocial/ Personal History: Patient lives at home with his . - Family History Father Medical History: Heart disease Notes: Heart attack Mother Medical History: Lung disease Notes: COPd - Social History Smoking Status: Unknown if ever smoked Alcohol use: No CD- Drugs: No Caffeine use: Yes Place of Residence: Home Review of Systems General: As per HPI Eyes: Unremarkable ENT: Unremarkable Respiratory: Cough, Shortness of Breath, SOB with Excertion, Sputum Cardiovascular: As per HPI, Unremarkable Gastrointestinal: Unremarkable Genitourinary: Unremarkable Musculoskeletal: Unremarkable Integumentary: Unremarkable Neurological: Unremarkable Lymphatics: Unremarkable Physical Examination Temp Pulse Resp BP Pulse Ox 98.1 F 85 20 148/71 H 99 05/13/22 08:25 05/13/22 08:59 05/13/22 08:25 05/13/22 08:59 05/13/22 08:25 General: Alert, In no apparent distress, Oriented x3 HEENT: Atraumatic, Normocephalic, PERRLA, EOMI Neck: Supple, JVD distended Respiratory: Diminished, Expiratory wheezes Cardiovascular: No edema, Regular rate/rhythm Gastrointestinal: Soft and benign, Non-distended, No tenderness Musculoskeletal: No clubbing, No swelling, No contractures Integumentary: No rashes, No breakdown Neurological: Normal speech, Normal tone, Normal affect Conclusions/Impression: 1. Recurrent MEHREEN episodes, Cr level remains above prior baseline 2. Underlying CKD, Stage IIIb/IV 3. Dyspnea 4. Chronic CHF, NOS 5. COPD exacerbation 6. Mild leukocytosis -Renal function has not recovered to levels seen earlier this summer post MEHREEN. Cr level higher than level on discharge last mo. Azotemia exacerbated with steroids, monitor. Avoid any iodine contrast on imaging. -Diuretic dose escalate, BNP level on admission higher than level on discharge last mo -Pt with (chronic) troponin leak, f/u Cardiology reccs -Cont to hold ACEi/MICHELLE inhibitors at this time -Adjust Abx/meds for reduced CrCl -Avoid relative hypotension. Yossi Fiore MD, FASN [facility] Physician Review: Patient Assessed, Agree with Above Assessment and Plan
--- NOTE | 2022-05-13 14:33 | P.PN ---
Subjective Date of Service: 05/13/22 Primary Care Provider: Anton Chief Complaint: COPD Exacerbation Patient was initially in respiratory distress and required BiPAP on arrival to the ED. He is tolerating room air and denies shortness of breath. Physical Examination - Vital Signs Temperature: 98.2 F Blood Pressure: 127/61 Pulse: 88 Respirations: 18 Pulse Ox (%): 94 Assessment And Plan - Current Problems (Diagnosis) (1) COPD exacerbation Current Visit: Yes Status: Acute (2) Acute on chronic diastolic heart failure Current Visit: Yes Status: Chronic (3) Acute respiratory failure with hypoxia Current Visit: Yes Status: Acute (4) CKD (chronic kidney disease) stage 3, GFR 30-59 ml/min Current Visit: No Status: Chronic Qualifiers: - Plan Physical Exam General: Alert, In no apparent distress Neck: Supple, no JVD elevation. Respiratory: Clear to auscultation bilaterally Cardiovascular: Regular rate/rhythm, Normal S1 S2 Gastrointestinal: Normal bowel sounds, No tenderness Musculoskeletal: No tenderness Integumentary: No rashes Neurological: No focal motor deficit. Plan: Continue bronchodilators, steroid. Patient started on [place] by pulmonary. CT chest reviewed, shows no infiltrate, demonstrate mild atelectasis Seen by pulmonary. Levaquin changed to meropenem for better Pseudomonas coverage. Continue IV Lasix for CHF exacerbation. Monitor intake and output. Supplemental oxygen as needed. Continue other home medications. Activity as tolerated.
[2022-05-14] MEDS: ALBUTEROL 2.5 MG/3 ML NEB SOL NEB SCH ×4 (01:35→20:40)
[2022-05-14] MEDS: IPRATROPIUM BROM 0.5MG/2.5ML NEB SCH ×4 (01:35→20:40)
[2022-05-14 04:03] LABS: Absolute Lymphocytes (CBC) 1.2 K/uL (0.7-4.9); Hematocrit 34.2 % (39.6-49.0); Lymphocytes % 10.9 % (15.3-44.8); MCV 88.6 fL (80-100); RBC Red Blood Cell Count 3.86 M/uL (4.33-5.43)
[2022-05-14 04:30] LABS: Potassium 4.1 mmol/L (3.5-5.1)
[2022-05-14] MEDS ORDERED: Meropenem 500 MG VIAL IV ONE (08:20)
[2022-05-14] MEDS ORDERED: NA CHLORIDE 0.9% 100 ML ONE (08:21)
[2022-05-14] MEDS: Meropenem 500 MG in NA CHLORIDE 0.9% 100 ML IV SCH (08:25)
[2022-05-14] MEDS: APIXABAN 5 MG TABLET PO SCH ×2 (08:26→21:06)
[2022-05-14] MEDS: METOPROLOL TAR 25 MG TAB PO SCH ×2 (08:26→21:06)
[2022-05-14] MEDS: FUROSEMIDE 40 MG/4 ML VIAL IV SCH ×2 (08:26→17:05)
[2022-05-14] MEDS: predniSONE 20 MG TAB PO SCH (08:26)
[2022-05-14] MEDS: CLOPIDOGREL 75 MG TABLET PO SCH (08:26)
[2022-05-14] MEDS: ASPIRIN EC 81 MG TAB PO SCH (08:26)
--- NOTE | 2022-05-14 08:50 | RAD REPORT ---
EXAM DESCRIPTION: RAD - Chest Single View - 05/14/2022 7:18 am CLINICAL HISTORY: COPD exacerbation COMPARISON: Portable chest and CT May 13 TECHNIQUE: AP portable chest image was obtained 05/14/2022 7:18 am . FINDINGS: Diffusely prominent interstitial lung pattern is again noted worse in each lung base. Find ings are more pronounced in the right. Right costophrenic angle blunting is present similar to the pr ior chest film study. Heart and vasculature are normal. No pneumothorax. No enlarging pleural fluid component. No acute bon y abnormality seen. No acute aortic findings suspected. IMPRESSION: Stable chest from May 13 imaging.
[2022-05-14] MEDS: ARFORMOTEROL TARTRATE 15 MCG/2 ML VIAL.NEB NEB SCH ×2 (09:25→20:40)
--- NOTE | 2022-05-14 10:12 | P.PN ---
Subjective Date of Service: 05/14/22 Primary Care Provider: Anton Chief Complaint: Respiratory distress Patient had a recurrent episode of respiratory distress apparently he woke up in the morning: Breathing was preceded by profound diaphoresis is feeling better Review of Systems 10-point ROS is otherwise unremarkable General: Weakness Respiratory: Shortness of Breath Physical Examination - Vital Signs Temperature: 98.0 F Blood Pressure: 154/89 Pulse: 93 Respirations: 18 Pulse Ox (%): 97 - Physical Exam General: Alert, Oriented x3 Respiratory: Crackles/rales, Expiratory wheezes Cardiovascular: No edema, Regular rate/rhythm, Normal S1 S2 Assessment And Plan - Current Problems (Diagnosis) (1) COPD exacerbation Current Visit: Yes Status: Acute Plan: Patient had a recurrent episode of respiratory distress chest x-ray consistent with volume overload renal function is improving increase Lasix to 80 mg twice a day patient had reaction to KATIANA inhibitor's blood pressure is stable currently on steroids discontinue meropenem never had a reaction to Entresto doubt sepsis Physician Review: Patient Assessed, Agree with Above Assessment and Plan
--- NOTE | 2022-05-14 11:09 | P.PN ---
Nephrology note (S) Pt reports improvement in breathing, not hypoxic on RA, not on O2 but still with poor air entry on lung exam and wheezing. Diuretics dose appears to have been escalated General: Alert, In no apparent distress, Oriented x3 HEENT: Atraumatic, Normocephalic, PERRLA, EOMI Neck: Supple, JVD distended Respiratory: Diminished, poor air entry, non tachypnec, no distress, Expiratory wheezes Cardiovascular: No edema, Regular rate/rhythm Gastrointestinal: Soft and benign, Non-distended, No tenderness Musculoskeletal: No clubbing, No swelling, No contractures Integumentary: No rashes, No breakdown Neurological: Normal speech, Normal tone, Normal affect Conclusions/Impression: 1. Recurrent MEHREEN episodes, Cr level remains above prior baseline 2. Underlying CKD, Stage IIIb/IV 3. Dyspnea 4. Chronic CHF, NOS 5. COPD exacerbation, underlying severe COPD. Chronic active tobacco use 6. Mild leukocytosis -Renal function has not recovered to levels seen earlier this summer post MEHREEN. Cr level on admission higher than level on discharge last mo but better this AM. Azotemia exacerbated with steroids, monitor. Avoid any iodine contrast on imaging. -Diuretic dose on admission already doubled from home dose, Lasix 40 mg IV BID recommended, BNP level on admission higher than level on discharge last mo but harder to interpret with renal failure. CT did not describe ground glass opacities or large pleural effusions. -Pt with (chronic) troponin leak, f/u Cardiology reccs -Cont to hold ACEi/MICHELLE inhibitors at this time, low dose Entresto could be considered if renal function further improves and Cardiology feels pt would benefit from it -Adjust Abx/meds for reduced CrCl -Avoid relative hypotension. Yossi Fiore MD, [facility]
--- NOTE | 2022-05-14 12:02 | P.PN ---
Subjective Date of Service: 05/14/22 Primary Care Provider: Anton Chief Complaint: Respiratory distress Patient reports an episode of shortness of breath and wheezing this morning. He was tolerating room air yesterday. He was back on oxygen by nasal cannula this morning. He states that his shortness of breath improved after breathing treatment. Physical Examination - Vital Signs Temperature: 98.0 F Blood Pressure: 154/89 Pulse: 93 Respirations: 18 Pulse Ox (%): 97 Assessment And Plan - Current Problems (Diagnosis) (1) COPD exacerbation Current Visit: Yes Status: Acute (2) Acute on chronic diastolic heart failure Current Visit: Yes Status: Chronic (3) Acute respiratory failure with hypoxia Current Visit: Yes Status: Acute (4) CKD (chronic kidney disease) stage 3, GFR 30-59 ml/min Current Visit: No Status: Chronic Qualifiers: - Plan Physical Exam General: Alert, In no apparent distress Neck: Supple, no JVD elevation. Respiratory: Bilateral wheezing, no crackles Cardiovascular: Regular rate/rhythm, Normal S1 S2 Gastrointestinal: Normal bowel sounds, No tenderness Musculoskeletal: No tenderness Integumentary: No rashes Neurological: No focal motor deficit. Plan: Continue bronchodilators, steroid. CT chest reviewed, shows no infiltrate, demonstrate mild atelectasis Seen by pulmonary. Levaquin changed to meropenem for better Pseudomonas coverage. Continue meropenem. Suspect patient's symptoms are more related to COPD exacerbation than CHF. Continue IV Lasix for CHF exacerbation. Monitor intake and output. Supplemental oxygen as needed. Continue other home medications. Activity as tolerated. Possible discharge in a.m.
[2022-05-14] MEDS ORDERED: FUROSEMIDE 40 MG/4 ML VIAL IV SCH (17:00)
[2022-05-14] MEDS ORDERED: VERICIGUAT 2.5 MG PO SCH (21:00)
[2022-05-15] MEDS: ALBUTEROL 2.5 MG/3 ML NEB SOL NEB SCH ×3 (01:25→14:20)
[2022-05-15] MEDS: IPRATROPIUM BROM 0.5MG/2.5ML NEB SCH ×3 (01:25→14:20)
[2022-05-15 03:38] LABS: Absolute Lymphocytes (CBC) 1.4 K/uL (0.7-4.9); Hematocrit 35.8 % (39.6-49.0); Lymphocytes % 13.8 % (15.3-44.8); MCV 88.7 fL (80-100); MPV 9.5 fL (7.6-11.3); RBC Red Blood Cell Count 4.03 M/uL (4.33-5.43)
[2022-05-15 03:51] LABS: Potassium 4.4 mmol/L (3.5-5.1)
[2022-05-15] MEDS: ARFORMOTEROL TARTRATE 15 MCG/2 ML VIAL.NEB NEB SCH (06:10)
[2022-05-15 06:43] VITALS: BMI 21.9
[2022-05-15] MEDS: FUROSEMIDE 40 MG/4 ML VIAL IV SCH ×2 (08:24→16:32)
[2022-05-15] MEDS: APIXABAN 5 MG TABLET PO SCH (08:25)
[2022-05-15] MEDS: METOPROLOL TAR 25 MG TAB PO SCH (08:25)
[2022-05-15] MEDS: CLOPIDOGREL 75 MG TABLET PO SCH (08:25)
[2022-05-15] MEDS: ASPIRIN EC 81 MG TAB PO SCH (08:25)
[2022-05-15] MEDS: predniSONE 20 MG TAB PO SCH (08:25)
--- NOTE | 2022-05-15 09:03 | P.DS ---
Admission Date: 05/12/22 Discharge Date: 05/15/22 Primary Care Provider: Anton Discharge Condition: FAIR Reason for Admission: Respiratory distress - Problems (1) COPD exacerbation Current Visit: Yes Status: Acute (2) Acute on chronic diastolic heart failure Current Visit: Yes Status: Chronic (3) Acute respiratory failure with hypoxia Current Visit: Yes Status: Acute (4) CKD (chronic kidney disease) stage 3, GFR 30-59 ml/min Current Visit: No Status: Chronic Qualifiers: Brief History of Present Illness: Patient is a 71-year-old male with history of COPD, diastolic CHF, CKD3b, hypertension, and CAD who presented to the ED via EMS with complaints of shortness of breath. He was tachycardic, tachypneic, and saturating 92% on RA. Patient was admitted 24 hours ago for a similar presentation and treated for COPD exacerbation with IV steroid, scheduled bronchodilators and antibiotics. His respiratory condition improved rapidly with treatment, he was weaned off oxygen to room air, was able to ambulate without shortness of breath or hypoxia, and was discharged home. He returned from home with worsening shortness of breath, hypoxic and was requiring bipap. His creatinine is 3.12 (up from 2.3 yesterday), BUN 46 (up from 27), BNP 02663, troponin stable. ABG shows an improvement in hypercapnia. He was given solumedrol, levaquin, and breathing treatment in ED. Patient was admitted for further management. Hospital Course: Patient was admitted to the medical floor and treated for COPD exacerbation with oral steroids, scheduled bronchodilators and antibiotics. He was seen and evaluated by pulmonary Dr. Escobar who suspected infective bronchitis and recommended antibiotic coverage for Pseudomonas and patient started on IV meropenem. Repeat x-ray showed increased interstitial markings. Patient was also treated with IV Lasix for possible acute diastolic heart failure. He clinically improved with treatment patient weaned off BiPAP to oxygen by nasal cannula and then to room air. His creatinine also improved with Lasix diuresis. Nephrology saw patient and assisted with management of the impaired renal function. He has tolerated room air for couple of days with oxygen saturation 94% and above. He is also not hypoxic on ambulation. Patient is deemed stable for discharge. Vital Signs/Physical Exam: Temp Pulse Resp BP Pulse Ox 97.7 F 86 14 124/68 93 05/15/22 04:00 05/15/22 08:25 05/15/22 04:00 05/15/22 08:25 05/15/22 04:00 General: Alert, In no apparent distress, Oriented x3 HEENT: Mucous membr. moist/pink Neck: JVD not distended Respiratory: Clear to auscultation bilaterally, Normal air movement Cardiovascular: No edema, Regular rate/rhythm, Normal S1 S2 Gastrointestinal: Soft and benign, Non-distended Musculoskeletal: No swelling Integumentary: No rashes, No cyanosis Neurological: Normal strength at 5/5 x4 extr Laboratory Data at Discharge: WBC 10.10 K/uL (4.3-10.9) 05/15/22 03:00 Hgb 11.8 g/dL (13.6-17.9) L 05/15/22 03:00 Hct 35.8 % (39.6-49.0) L 05/15/22 03:00 Plt Count 252 K/uL (152-406) 05/15/22 03:00 PT 11.6 SECONDS (9.5-12.5) 05/11/22 22:40 INR 1.05 05/11/22 22:40 APTT 34.8 SECONDS (24.3-36.9) 05/11/22 22:40 Sodium 135 mmol/L (136-145) L 05/15/22 03:00 Potassium 4.4 mmol/L (3.5-5.1) 05/15/22 03:00 BUN 66 mg/dL (7-18) H 05/15/22 03:00 Creatinine 2.50 mg/dL (0.55-1.3) H 05/15/22 03:00 Glucose 124 mg/dL (74-106) H 05/15/22 03:00 Phosphorus 3.8 mg/dL (2.5-4.9) 05/13/22 05:26 Magnesium 2.3 mg/dL (1.8-2.4) 05/13/22 05:26 Total Bilirubin 0.3 mg/dL (0.2-1.0) 05/11/22 22:40 AST 15 U/L (15-37) 05/11/22 22:40 ALT 15 U/L (12-78) 05/11/22 22:40 Alkaline Phosphatase 86 U/L (45-117) 05/11/22 22:40 Home Medications: Albuterol Sulfate [Albuterol Sulfate Hfa] 1 puff IH DAILY 02/05/22 Aspirin [Aspirin EC] 81 mg PO DAILY 04/05/22 Clopidogrel Bisulfate [Plavix] 75 mg PO DAILY 04/05/22 Metoprolol Tartrate 25 mg PO BID 04/05/22 Vericiguat [Verquvo] 2.5 mg PO BEDTIME 04/05/22 Apixaban [Eliquis] 5 mg PO BID #60 tab 04/09/22 Furosemide [Lasix] 40 mg PO BID #60 tab 05/11/22 levoFLOXacin [Levaquin*] 500 mg PO DAILY #5 tab 05/11/22 Fluticasone/Salmeterol [Advair 250-50 Diskus] 1 each IH BID #1 kit 05/13/22 Ipratropium/Albuterol Sulfate [Iprat-Albut 0.5-3(2.5) mg/3 ml] 3 ml IH QID PRN #120 amp 05/13/22 Nebulizer 1 each QID #1 kit 05/13/22 predniSONE [Deltasone*] 10 mg PO BID #10 tab 05/13/22 New Medications: Fluticasone/Salmeterol [Advair 250-50 Diskus] 1 each IH BID #1 kit predniSONE [Deltasone*] 10 mg PO BID #10 tab Ipratropium/Albuterol Sulfate [Iprat-Albut 0.5-3(2.5) mg/3 ml] 3 ml IH QID PRN #120 amp PRN Reason: Shortness Of Breath Nebulizer 1 each QID #1 kit Physician Discharge Instructions: PROBLEM: (list out Acute Problems for the Current visit) COPD Exacerbation GOAL: Clear understanding of disease process INSTRUCTIONS: D/C IV D/C Home F/U with PCP in 1 to 2 weeks F/U with pulmonology in 1 to 2 weeks Diet: HH Activity: as tolerated Followup: Unknown,U [Primary Care Provider] - Time spent managing pt's care (in minutes): 35
[2022-05-15 16:32] VITALS: BP 136/67
[2022-05-15 16:39] VITALS: O2SAT 97
[2022-05-15 16:49] VITALS: TEMP 98.1
== END 2022-05-15 18:20 | disposition home or self-care (01) | DRG 190 ==
LOC: ER 22:13 → ERHOLD 05-12 01:25 → 2ND 05-12 11:46
PROVIDERS: ADMIT Internal Medicine; ATTEND Internal Medicine
PROC: 5A09457 Assistance with Respiratory Ventilation, 24-96 Consecutive Hours, Continuous Positive Airway Pressure (ICD-10-PCS; principal; 2022-05-12)
DX: J44.1 Chronic obstructive pulmonary disease with (acute) exacerbation (principal); I50.33 Acute on chronic diastolic (congestive) heart failure; J96.01 Acute respiratory failure with hypoxia; J96.02 Acute respiratory failure with hypercapnia; I13.0 Hypertensive heart and chronic kidney disease with heart failure and stage 1 through stage 4 chronic kidney disease, or unspecified chronic kidney disease; N17.9 Acute kidney failure, unspecified; I24.8 Other forms of acute ischemic heart disease; N18.30 Chronic kidney disease, stage 3 unspecified; I25.10 Atherosclerotic heart disease of native coronary artery without angina pectoris; D72.829 Elevated white blood cell count, unspecified; F17.210 Nicotine dependence, cigarettes, uncomplicated; I25.2 Old myocardial infarction; Z23 Encounter for immunization; Z95.5 Presence of coronary angioplasty implant and graft; Z86.16 Personal history of COVID-19; Z79.82 Long term (current) use of aspirin; Z79.02 Long term (current) use of antithrombotics/antiplatelets; Z79.01 Long term (current) use of anticoagulants; Z79.52 Long term (current) use of systemic steroids; Z79.899 Other long term (current) drug therapy; Z20.822 Contact with and (suspected) exposure to COVID-19
CPT/HCPCS: 36415; 71045; 71250; 80048; 80076; 81001; 82805; 83735; 83880; 84100; 84484; 85025; 85610; 85730; 93005; 94640; 94660; 94760; 96374; 96375; 99285; J1650; J1940; J2930; J7512; J7605; J7613; J7644

== ENCOUNTER 2022-05-17 06:04 | Emergency (ER) | payer MEDICARE ==
--- OUTSIDE RECORDS SUMMARY | 2022-05-17 06:11 | XMS REPORT | Continuity of Care Document ---
:1950 Author Organization [facility] t Address 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 00:[place] Tachycardi Tachycardi Disease Active U nivers a a 8-21 ity of 00:00: [place] 00 Medical Branch Hypertensi Hypertensi Disease Active [facility] emergency 00:00: [facility] 00 Center 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 Active [facility] 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: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Center 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 Pulmonary Pulmonary Disease Active [facility] edema edema 5-16 [facility] 00:00: [facility] 00 Center Demand Demand Disease Active [facility] ischemia ischemia 5-16 [facility] 00:00: [facility] 00 Center MEHREEN (acute MEHREEN (acute Disease Active [facility] kidney kidney 5-16 [facility] injury) injury) 00:00: [facility] 00 Center Acute Acute Disease Active [facility] respirator respirator 5-15 Yadira kes y failure y failure 00:00: Medi south with with 00 Center hypercapni hypercapni a a Athscl Athscl Problem Active [facility] heart heart 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 w/o ang [...] Active Univers ALLERGIE Class ity of S [facility] NO KNOWN Allergy Active [facility] ALLERGIE S Social History Social Habit Start Date Stop Date Quantity Comments Source History [facility] Food 2022-02-22 2022-02-22 1 Univers ity of Worry 00:00:00 00:00:00 [facility] History [facility] Food 2022-02-22 2022-02-22 1 Univers ity of Scarcity 00:00:00 00:00:00 [facility] Branch History [facility] 2022-02-22 2022-02-22 2 University o f Transport Med 00:00:00 00:00:00 [facility] Branch History [facility] 2022-02-22 2022-02-22 2 University o f Transport Non-Med 00:00:00 00:00:00 [facility] Exposure to 2022-02-10 2022-02-20 Not sure University of SARS-CoV-2 (event) 00:00:00 18:56:00 [facility] Cigarettes smoked 2022-02-14 2022-02-14 Univers ity of current (pack per 00:00:00 00:00:00 [facility] [place] ) - Reported Branch Cigarette 2022-02-14 2022-02-14 University of pack-years 00:00:00 00:00:00 [facility] Tobacco use and 2021-11-10 2021-11-[address] [facility] Yadira kes exposure 00:00:00 00:00:00 [facility] Alcohol intake 2021-11-10 2021-11-10 Ex-drinker [facility] es 00:00:00 00:00:00 (finding) [facility] History of tobacco 2021-10-25 Passive smoker Un iversity of use 00:00:00 [facility] Sex Assigned At [birth year] ALEXEI Vilchis 00:00:00 00:00:00 [facility] Smoking Status Start Date Stop Date Source Smokes tobacco daily [facility] (finding) Ex-smoker 2022-02-14 00:00:00 2022-02-14 00:00:00 [facility] Medications Ordered Filled Start Stop Current Ordering Indication Dosage Frequency Signature Comments Components Source Medication Medication Date Date Medication? Clinician (SIG) Name Name pradip 2021- Yes [id number] 500mg Take 1 Univers n 500 mg 8-27 tablet by ity of tablet 00:00: mouth in [place] the Medical morning. Branch furosemide 2021- Yes [id number] 40mg Take 1 Univers 40 mg 8-27 tablet by ity of tablet 00:00: mouth in [place] the Medical morning. Branch azithromyci 2021- Yes [id number] 500mg Take 1 Univers n 500 mg 8-27 tablet by ity of tablet 00:00: mouth in [place] the Medical morning. Branch furosemide 2021-0 Yes [id number] 40mg Take 1 Univers 40 mg 8-27 tablet by ity of tablet 00:00: mouth in [place] the Medical morning. Branch azithromyci 2021-0 Yes [id number] 500mg Take 1 Univers n 500 mg 8-27 tablet by ity of tablet 00:00: mouth in [place] the Medical morning. Branch furosemide 2021-0 Yes [id number] 40mg Take 1 Univers 40 mg 8-27 tablet by ity of tablet 00:00: mouth in [place] the Medical morning. Branch azithromyci 2021-0 Yes [id number] 500mg Take 1 Univers n 500 mg 8-27 tablet by ity of tablet 00:00: mouth in [place] the Medical morning. Branch furosemide 2021-0 Yes [id number] 40mg Take 1 Univers 40 mg 8-27 tablet by ity of tablet 00:00: mouth in [place] the Medical morning. Branch azithromyci 2021-0 Yes [id number] 500mg Take 1 Univers n 500 mg 8-27 tablet by ity of tablet 00:00: mouth in [place] the Medical morning. Branch furosemide 2021-0 Yes [id number] 40mg Take 1 Univers 40 mg 8-27 tablet by ity of tablet 00:00: mouth in [place] 00 the Medical morning. Branch aspirin 81 2021- Yes [id number] 81mg Take 1 Univers mg chewable 8-27 - tablet by it y of tablet 00:00: 04:59 mouth in [place] 00 :00 the Medical morning Branch for 30 days. clopidogreL 2021- Yes [id number] 75mg Take 1 Univers 75 mg 8-27 -27 tablet by ity of tablet 00:00: 04:59 mouth in [place] 00 :00 the Medical morning Branch for 30 days. Fluticasone 2021- Yes [id number] 1{puff} Inhale 1 Univers -Salmeterol 8-23 03- Puff every i ty of 100-50 00:00: 04:59 12 [place] mcg/dose 00 :00 (twelve) Medical inhalation hours for Bran ch disk 30 days. rosuvastati 2021- Yes [id number] 20mg Take 1 Univers n 20 mg 8-23 03- tablet by ity of tablet 00:00: 04:59 mouth at [place] 00 :00 bedtime Medical for 30 Branch days. aspirin 81 2021- Yes [id number] 81mg Take 1 Univers mg chewable 8-23 03- tablet by it y of tablet 00:00: 04:59 mouth in [place] 00 :00 the Medical morning Branch for 30 days. clopidogreL 2021- Yes [id number] 75mg Take 1 Univers 75 mg 8-27 - tablet by ity of tablet 00:00: 04:59 mouth in [place] 00 :00 the Medical morning Branch for 30 days. Fluticasone 2021- Yes [id number] 1{puff} Inhale 1 Univers -Salmeterol 8-23 03- Puff every i ty of 100-50 00:00: 04:59 12 [place] mcg/dose 00 :00 (twelve) Medical inhalation hours for Bran ch disk 30 days. rosuvastati 2021- Yes [id number] 20mg Take 1 Univers n 20 mg 8-27 -27 tablet by ity of tablet 00:00: 04:59 mouth at [place] 00 :00 bedtime Medical for 30 Branch days. aspirin 81 2021- Yes [id number] 81mg Take 1 Univers mg chewable 02-20 tablet by it y of tablet 00:00: 04:59 mouth in [place] 00 :00 the Medical morning Branch for 30 days. clopidogreL 2021- Yes [id number] 75mg Take 1 Univers 75 mg 8-03-23 tablet by ity of tablet 00:00: 04:59 mouth in [place] 00 :00 the [facility] morning [place] for 30 days. Fluticasone 2021- Yes [id number] 1{puff} Inhale 1 Univers -Salmeterol -03-23 Puff every i ty of 100-50 00:00: 04:59 12 [place] mcg/dose 00 :00 (twelve) Medical inhalation hours for Bran ch disk 30 days. rosuvastati 2021- Yes [id number] 20mg Take 1 Univers n 20 mg 02-20 tablet by ity of tablet 00:00: 04:59 mouth at [place] 00 :00 bedtime Medical for 30 Branch days. aspirin 81 2021- Yes [id number] 81mg Take 1 Univers mg chewable 02-20 tablet by it y of tablet 00:00: 04:59 mouth in [place] 00 :00 the [facility] morning [place] for 30 days. clopidogreL 2021- Yes [id number] 75mg Take 1 Univers 75 mg -03-23 tablet by ity of tablet 00:00: 04:59 mouth in [place] 00 :00 the [facility] morning [place] for 30 days. Fluticasone 2021- Yes [id number] 1{puff} Inhale 1 Univers -Salmeterol 02-20 Puff every i ty of 100-50 00:00: 04:59 12 [place] mcg/dose 00 :00 (twelve) Medical inhalation hours for Bran ch disk 30 days. rosuvastati 2021- Yes [id number] 20mg Take 1 Univers n 20 mg -03-23 tablet by ity of tablet 00:00: 04:59 mouth at [place] 00 :00 bedtime Medical for 30 Branch days. lactobacill 2022- No 1{capsu QD Take [address] [facility] us 5-20 05-20 le} capsule by [facility] rhamnosus, 00:00: 23:59 mouth Medic al GG, 00 :00 daily. [place] (CULTURELLE ) 10 billion cell capsule lactobacill 2021-2022- No 1{capsu QD Take [address] [facility] us 5-20 05-20 le} capsule by Luelsy rhamnosus, 00:00: 23:59 mouth Medic al GG, 00 :00 daily. [place] (CULTURELLE ) 10 billion cell capsule lactobacill 2021-2022- No 1{capsu QD Take [address] [facility] us 5-20 05-20 le} capsule by Luelsy rhamnosus, 00:00: 23:59 mouth Medic al GG, 00 :00 daily. [place] (CULTURELLE ) 10 billion cell capsule amLODIPine 2021-2021- No 10mg QD Take [address] [facility] [...] mouth Center daily for 90 days. amLODIPine 2021-2021- No 10mg QD Take [address] [facility] [...] mouth Center daily for 90 days. amLODIPine 2021-2021- No 10mg QD Take [address] [facility] (NORVASC) 5-20 08-18 tablet (10 Sally es 10 MG 00:00: 23:59 mg total) Medica l tablet 00 :00 by mouth Center daily for 90 days. aspirin 81 2021-0 2021- No 81mg QD Take [address] [facility] MG chewable 5-20 08-18 tablet (81 L ukes tablet 00:00: 23:59 mg total) Medic al 00 :00 by mouth Center daily for 90 days. lisinopriL 0 Yes 40mg QD Take [address] (PRINIVIL,Z 5-19 by mouth Luke s ESTRIL) 40 20:45: daily. Medic al MG tablet 02 [place] carvediloL Yes 6.25mg Take 6.[address] (COREG) 5-19 mg by [facility] 6.25 MG 20:45: mouth 2 Medical tablet 02 (two) Center times daily with breakfast and dinner. lisinopriL 0 Yes 40mg QD Take [address] (PRINIVIL,Z 5-19 by mouth Luke s ESTRIL) 40 20:45: daily. Medic al MG tablet 02 [place] carvediloL Yes 6.25mg Take 6.[address] (COREG) 5-19 mg by [facility] 6.25 MG 20:45: mouth 2 Medical tablet 02 (two) Center times daily with breakfast and dinner. lisinopriL Yes 40mg QD Take [address] (PRINIVIL,Z 5-19 by mouth Luke s ESTRIL) 40 20:45: daily. Medic al MG tablet 02 [place] carvediloL Yes 6.25mg Take 6.[address] [...] [address] (NORVASC) 5 5-19 05-19 by mouth Sally es MG tablet 16:04: 00:00 daily. Medic al 36 :00 Center predniSONE 2021- No 10mg Q.5D Take [address] [facility] (DELTASONE) 5-19 05-19 by mouth 2 L ukes 10 MG 16:04: 00:00 (two) Medical tablet 36 :00 times Center daily. amLODIPine 2021-0 2021- No 5mg QD Take [address] (NORVASC) 5 5-19 05-19 by mouth Sally es MG tablet 16:04: 00:00 daily. Medic al 36 :00 Center predniSONE 2021-2021- No 10mg Q.5D Take [address] [facility] (DELTASONE) 11-12-19 by mouth 2 L ukes 10 MG 16:04: 00:00 (two) Medical tablet 36 :00 times Center daily. amLODIPine 2021- No 5mg QD Take [address] (NORVASC) 5 11-12-19 by mouth Sally es MG tablet 16:04: [...] Wheezing for up to 360 days. acetaminoph 2022- No 650mg Take [address] en 11-12 05-14 tablets [facility] (TYLENOL) 00:00: 23:59 (650 mg Medi south 325 MG 00 :00 total) by Center tablet mouth every 6 (six) hours as needed for up to 360 days. ipratropium 2022- No 3mL Take [address] -albuteroL 11-12 05-14 by [facility] (DUO-NEB) 00:00: 23:59 nebulizati M edical 0.5 mg-3 00 :00 on every 6 Cente r mg(2.5 mg (six) base)/3 mL hours as nebulizer needed for solution Wheezing for up to 360 days. acetaminoph 2022- No 650mg Take [address] en - 05-14 tablets [facility] (TYLENOL) 00:00: 23:59 (650 mg Medi south 325 MG 00 :00 total) by Center tablet mouth every 6 (six) hours as needed for up to 360 days. ipratropium 2022- No 3mL Take [address] [address] -albuteroL 11-12 05-14 by Corinna ([facility]) 00:00: 23:59 nebulizati M edical 0.5 mg-3 00 :00 on every 6 Cente r mg(2.5 mg (six) base)/3 mL hours as nebulizer needed for solution Wheezing for up to 360 days. apixaban 2021- No 5mg Q.5D Take [address] [facility] (ELIQUIS) 5 -12 02-17 tablet (5 Yadira kes mg Tab 00:00: [...] Q.5D Take [address] [facility] (ELIQUIS) 5 -12 02-17 tablet (5 Yadira kes mg Tab 00:00: 23:59 mg total) Medic al tablet 00 :00 by mouth 2 Center (two) times daily for 90 days. bumetanide 2021- No 1mg Take [address] [facility] (BUMEX) 1 11-12-18 tablet (1 Luke s MG tablet 00:00: 23:59 mg total) Me dical 00 :00 by mouth 2 Center (two) times daily for 30 days. bumetanide 2021-2021- No 1mg Take [address] [facility] (BUMEX) 1 11-12-18 tablet (1 Luke s MG tablet 00:00: 23:59 mg total) Me dical 00 :00 by mouth 2 Center (two) times daily for 30 days. bumetanide 2021-2021- No 1mg Take [address] [facility] (BUMEX) 1 11-12-18 tablet (1 Luke s MG tablet 00:00: 23:59 mg total) Me dical 00 :00 by mouth 2 Center (two) times daily for 30 days. predniSONE 2021- No Take [address] [facility] (DELTASONE) 11-12 tablets Luke s 10 MG 00:00: 23:59 (40 mg Medical tablet 00 :00 total) by Center mouth daily for 3 days, THEN 3 tablets (30 mg total) daily for 3 days, THEN 2 tablets (20 mg total) daily for 3 days, THEN 1 tablet (10 mg total) daily for 3 days. predniSONE 2021- No Take [address] [facility] (DELTASONE) 11-12 tablets Luke s 10 MG 00:00: 23:59 (40 mg Medical tablet 00 :00 total) by Center mouth daily for 3 days, THEN 3 tablets (30 mg total) daily for 3 days, THEN 2 tablets (20 mg total) daily for 3 days, THEN 1 tablet (10 mg total) daily for 3 days. predniSONE No Take [address] [facility] (DELTASONE) 11-12 tablets Luke s 10 MG 00:00: 23:59 [...] for liquid up to 10 days. dextrometho 2021- No 5mL Take [address] [address] rphan-guaif 11-12 by mouth Sally es enesin 00:00: 23:59 every 4 Medical (ROBITUSSIN 00 :00 (four) Center -DM) 10-100 hours as mg/5 mL needed for liquid up to 10 days. dextrometho 2021- No 5mL Take [address] rphan-guaif 512 11-29 by mouth Sally es enesin 00:00: 23:59 every 4 Medical (ROBITUSSIN 00 :00 (four) Center -DM) 10-100 hours as mg/5 mL needed for liquid up to 10 days. amoxicillin 2022- No 1{tbl} Q.5D Take [address] -clavulanat 5-19 05-22 tablet by Yadira kes e 00:00: 23:59 mouth 2 Medical (AUGMENTIN) 00 :00 (two) Center 875-125 mg times per tablet daily for 3 days. amoxicillin 2021-2021- No 1{tbl} Q.5D Take [address] -clavulanat 5-19 05-22 tablet by Yadira kes e 00:00: 23:59 mouth 2 Medical (AUGMENTIN) 00 :00 (two) Center 875-125 mg times per tablet daily for 3 days. amoxicillin 2021-2021- No 1{tbl} Q.5D Take [address] -clavulanat 5-19 05-22 tablet by Yadira kes e 00:00: 23:59 mouth 2 Medical (AUGMENTIN) 00 :00 (two) Center 875-125 mg times per tablet daily for 3 days. lisinopriL 2021-0 Yes [id number] 10mg Take 1 Univers 10 mg 4-17 tablet by ity of tablet 00:00: mouth at [place] [address] bedtime. Medical Branch metoprolol 2021-0 Yes [id number] 25mg Take 1 Univers tartrate 25 4-17 tablet by ity of mg tablet 00:00: mouth 2 [place] (two) Medical times Branch daily. lisinopriL 2021-0 Yes [id number] 10mg Take 1 Univers 10 mg 4-17 tablet by ity of tablet 00:00: mouth at [place] [address] bedtime. Medical Branch metoprolol 2021-0 Yes [id number] 25mg Take 1 Univers tartrate 25 4-17 tablet by ity of mg tablet 00:00: mouth 2 [place] (two) Medical times Branch daily. lisinopriL 2021-0 Yes [id number] 10mg Take 1 Univers 10 mg 4-17 tablet by ity of tablet 00:00: mouth at [place] [address] bedtime. Medical Branch metoprolol 2021-0 Yes [id number] 25mg Take 1 Univers tartrate 25 4-17 tablet by ity of mg tablet 00:00: mouth 2 [place] 00 (two) Medical times Branch daily. lisinopriL Yes [id number] 10mg Take 1 Univers 10 mg 4-17 tablet by ity of tablet 00:00: mouth at [place] [address] bedtime. Medical Branch metoprolol Yes [id number] 25mg Take 1 Univers tartrate 25 4-17 tablet by ity of mg tablet 00:00: mouth 2 [place] 00 (two) Medical times Branch daily. lisinopriL Yes [id number] 10mg Take 1 Univers 10 mg 4-17 tablet by ity of tablet 00:00: mouth at [place] [address] bedtime. Medical Branch metoprolol Yes [id number] 25mg Take 1 Univers tartrate 25 4-17 [...] 2021-11-12 60 /min [facility] 19:40:00 [facility] Respiratory rate 2021-11-12 18 /min [facility] 19:40:00 [facility] Center Oxygen saturation 2021-11-12 99 /min [facility] in Arterial blood 19:40:00 Medical nter by Pulse oximetry Systolic blood 2021-11-12 137 mm[Hg] [facility] pressure 16:00:00 Medical Center Diastolic blood 2021-11-12 83 mm[Hg] [facility] pressure 16:00:00 Medical Center Body temperature 2021-11-[address] [facility] 16[facility]00:00 Medical Center Body weight 2021-11-[address] [facility] 04:18:00 [facility] Center BMI 2021-11-11 24.37 kg/m2 [facility] 04:18:00 Medical Center Body height 2021-11-[address] [facility] 04:48:00 Medical Center Systolic blood 2020-04-16 141 mm[Hg] Location: LUE; [place] [facility] pressure 07:34:00 Position: Sitting Diastolic blood 2020-04-16 60 mm[Hg] Location: LUE; [place] [facility] pressure 07:34:00 Position: Sitting Weight 2020-04-16 173.125 [lb_av] [facility] 07:34:00 Body mass index 2020-04-16 22.23 kg/m2 [facility] (BMI) [Ratio] 07:34:00 Body temperature 2020-04-16 97.2 [degF] Method: [place] [facility] 07:34:00 Tympanic Heart Rate 2020-04-16 [...] 14:12:00 O2 SAT 2020-04-07 97 % Source: RA [facility] 14:12:00 Procedures Procedure Date / Time Performing Clinician Source Performed ASSIGNMENT OF BENEFITS 2022-03-31 22:21:39 Doctor Unassigned, No [facility] Name Medical Branch AUTHORIZATION FOR 2022-03-02 05:01:00 Doctor Unassigned, No [facility] Name Medical Branch AUTHORIZATION FOR 2022-02-26 05:01:00 Doctor Unassigned, No [facility] Name Medical Branch AUTHORIZATION FOR 2022-02-22 05:01:00 Doctor Unassigned, No Univ [facility] Name Medical Branch POCT-GLUCOSE METER 2021-11-12 15:41:00 Davis [facility] POCT-GLUCOSE METER 2021-11-12 11:18:00 [facility] POCT-GLUCOSE METER 2021-11-12 06:33:00 [facility] CBC W/PLT COUNT & AUTO 2021-11-12 04:33:00 Juventino Smith [facility] BASIC METABOLIC PANEL 2021-11-12 04:33:00 Juventino Smith [facility] MAGNESIUM 2021-11-12 04:33:00 Juventino Smith [facility] CBC W/PLT COUNT & AUTO 2021-11-12 04:33:00 Juventino Smith [facility] POCT-GLUCOSE METER 2021-11-11 21:38:00 Davis [facility] POCT-GLUCOSE METER 2021-11-11 16:31:00 [facility] PO[facility]-GLUCOSE METER 2021-11-11 11:33:00 [facility] NM MYOCARDIAL PERFUSION 2021-11-11 11:00:00 Bebeto [facility] SPECT, PHARM(LEXISCAN) Center ECG 12-LEAD 2021-11-11 09:26:30 Bebeto [facility] POCT-GLUCOSE METER 2021-11-11 06:42:00 Juventino Smith [facility] XR CHEST 1 VIEW PORTABLE 2021-11-11 05:48:00 Robb Reina [facility] Center CBC W/PLT COUNT & AUTO 2021-11-11 04:06:00 Juventino Smith [facility] BASIC METABOLIC PANEL 2021-11-11 04:06:00 Juventino Smith [facility] MAGNESIUM 2021-11-11 04:06:00 Juventino Smith [facility] CBC W/PLT COUNT & AUTO 2021-11-11 04:06:00 Juventino Smith [facility] POCT-GLUCOSE METER 2021-11-10 20:48:00 Juventino Smith [facility] POCT-GLUCOSE METER 2021-11-10 15:39:00 Juventino Smith [facility] POCT-GLUCOSE METER 2021-11-10 11:33:00 Juventino Smith [facility] BASIC METABOLIC PANEL 2021-11-10 06:58:00 Cheri, [facility] HEPATIC FUNCTION PANEL 2021-11-10 06:58:[address] [facility] CBC W/PLT COUNT & AUTO 2021-11-10 06:58:00 Cheri [facility] CBC W/PLT COUNT & AUTO 2021-11-10 06:58:00 Cheri [facility] POCT-GLUCOSE METER 2021-11-10 06:54:00 Juventino Smith [facility] POCT-GLUCOSE METER 2021-11-09 21:49:00 Juventino Smith [facility] POCT-GLUCOSE METER 2021-11-09 16:10:00 Juventino Smith [facility] POCT-GLUCOSE METER 2021-11-09 12:19:00 Juventino Smith [facility] VENOUS DOPPLER LEGS 2021-11-09 10:33:00 Velma Bustamante [facility] XR CHEST 1 VIEW PORTABLE 2021-11-09 07:32:00 Velma Bustamante [facility] Center POCT-GLUCOSE METER 2021-11-09 07:22:00 Juventino Smith [facility] BASIC METABOLIC PANEL 2021-11-09 04:06:00 Cheri, [facility] HEPATIC FUNCTION PANEL 2021-11-09 04:06:00 Cheri, [facility] CBC W/PLT COUNT & AUTO 2021-11-09 04:06:00 Cheri [facility] HC LAB HIV-1 AG 2021-11-09 04:06:00 Hubert dominic [place] [facility] W/HIV-1&2 AB [facility] HEPATITIS PANEL, ACUTE 2021-11-09 04:06:00 Hubert [facility] Vignesh I [facility] HEMOGLOBIN A1C 2021-11-09 04:06:00 Hubert dominic [place] [facility] APTT 2021-11-09 04:06:[address] [facility] CBC W/PLT COUNT & AUTO 2021-11-09 04:06:00 Cheri [facility] TROPONIN I 2021-11-09 00:21:[address] [facility] ECG 12-LEAD 2021-11-08 21:26:59 Unknown, Hl7 Doctor [facility] ECG 12-LEAD 2021-11-08 21:26:59 Unknown, Hl7 Doctor [facility] POCT-GLUCOSE METER 2021-11-08 20:43:00 Juventino Smith [facility] APTT 2021-11-08 19:42:[address] [facility] TROPONIN I 2021-11-08 16:28:[address] [facility] GLUCOSE 2021-11-08 16:27:00 Juventino Smith [facility] SPUTUM CULTURE + GRAM 2021-11-08 15:33:00 Guera Yarbrough [facility] US RENAL COMPLETE 2021-11-08 12:14:[address] [facility] POCT-GLUCOSE METER 2021-11-08 11:32:00 Juventino Smith [facility] APTT 2021-11-08 11:22:[address] [facility] TROPONIN I 2021-11-08 11:22:[address] [facility] BASIC METABOLIC PANEL 2021-11-08 11:22:00 Simona [facility] 2D ECHO W/ DOPPLER 2021-11-08 10:36:38 Cheri [facility] (CW/PW/COLOR) [place] [facility] CHEST WITHOUT IV 2021-11-08 09:34:00 Cheri [facility] CONTRAST Center NM LUNG PERFUSION SCAN 2021-11-08 09:20:[address] [facility] XR CHEST 1 VIEW PORTABLE 2021-11-08 08:23:00 Simona [facility] Center APTT 2021-11-08 05:53:[address] [facility] LACTIC ACID, VENOUS 2021-11-08 05:07:00 Cheri [facility] LEGIONELLA ANTIGEN, 2021-11-08 04:17:00 Cheri [facility] URINE [place] URINALYSIS WITH 2021-11-08 04:16:00 Cheri [facility] MICROSCOPIC IF INDICATED Center URINALYSIS MICROSCOPIC 2021-11-08 04:16:[address] [facility] TROPONIN I 2021-11-08 04:07:[address] [facility] BLOOD CULTURE 2021-11-08 04:02:[address] [facility] POCT-GLUCOSE METER 2021-11-08 04:00:[address] [facility] PROCALCITONIN 2021-11-08 03:59:[address] [facility] BASIC METABOLIC PANEL 2021-11-08 03:58:[address] [facility] HEPATIC FUNCTION PANEL 2021-11-08 03:58:00 [facility] A1C 2021-11-08 03:58:[address] [facility] PROTHROMBIN TIME/INR 2021-11-08 03:58:00 Jen Alonzo [facility] MAGNESIUM 2021-11-08 03:58:00 [facility]OS[facility]US 2021-11-08 03:58:00 Cheri, [place] [facility] [place] CBC W/PLT COUNT & AUTO 2021-11-08 03:58:00 Cheri, [facility] DIFFERENTIAL Center B-TYPE NATRIURETIC 2021-11-08 03:58:00 Cheri, [facility] FACTOR (BNP) Center D-DIMER 2021-11-08 03:58:00 [facility] [place] [facility] [place] CBC W/PLT COUNT & AUTO 2021-11-08 03:58:00 [facility] ECG 12-LEAD 2021-11-08 03:52:58 Cheri, [facility] ECG 12-LEAD 2021-11-08 03:52:[address] [facility] XR CHEST 1 VIEW PORTABLE 2021-11-08 03:47:00 [facility] XR ABDOMEN/KUB 1 VIEW 2021-11-08 03:47:00 [facility] Center BLOOD GAS, ARTERIAL 2021-11-08 03:29:00 Jen Alonzo I [facility] EKG-SCANNED 2021-11-08 00:00:00 Provider, Default [facility] Scanning Center PET CT Lung solitary 2020-04-07 00:00:00 [facility] pulm nodule 55781 Plan of Care Planned Activity Planned Date Details Comments Source Future Scheduled 2022-11-[address] [facility] Test 00:00:00 Counseling and Medical Cente r Screening (12+) [code = Tobacco Cessation Counseling and Screening (12+)] Future Scheduled 2022-02-25 INFLUENZA VACCINE (#1) C [...] [facility] Pending 00:00:00 pulm nodule 00941 [code = 51445] Diagnostic Test 2020-04-[address] Lung solitary [facility] Pending 00:00:00 pulm nodule 76524 [code = 08513] Future Scheduled [address] [facility] Test 00:00:00 aneurysm screening Medical C enter (procedure) [code = 975238115] Future Scheduled [address] [facility] Test 00:00:00 aneurysm screening Medical C enter (procedure) [code = 350306409] Future Scheduled [address] [facility] Test 00:00:00 aneurysm screening Medical C enter (procedure) [code = 556341770] Future Scheduled 2002 SHINGLES VACCINES (1 [facility] [...] [facility] Center colon (procedure) [code = 267069819] Future Scheduled [address] [facility] Test 00:[facility]:00 malignant neoplasm of [facility] Center colon (procedure) [code = 696489279] Future Scheduled [address] [facility] Test 00:00:00 malignant ne[facility] colon (procedure) [code = 693411308] Future Scheduled [address] [facility] Test 00:00:00 malignant neoplasm of [facility] Center colon (procedure) [code = 818221376] Future Scheduled 1950 Sigmoidoscopy [facility]code [facility] Test [facility]oscopy] Medical Cente r Future Scheduled [address] [facility] Test 00:00:00 (combo) [code = CT Medical C enter Colonography (combo)] Future Scheduled [address] [facility] Test 00:00:00 malignant neoplasm of [facility] Center colon (procedure) [code = 505778656] Future Scheduled [address] [facility] Test 00:00:00 malignant neoplasm of [facility] Center colon (procedure) [code = 426414540] Future Scheduled [address] [facility] Test 00:00:00 malignant neoplasm of [facility] Center colon (procedure) [code = 216025919] Future Scheduled [address] [facility] Test 00:00:00 malignant neoplasm of [facility] Center colon (procedure) [code = 667152224] Future Scheduled 1950 Sigmoidoscopy [facility]code [facility] 00:[facility] S[facility]oscopy] Medical May r Future Scheduled [address] [facility] Test 00:00:00 (combo) [code = CT Medical C enter Colonography (combo)] Future Scheduled [address] [facility] Test 00:00:00 malignant neoplasm of [facility] Center colon (procedure) [code = 602159478] Future Scheduled [address] [facility] Test 00:00:00 malignant neoplasm of [facility] Center colon (procedure) [code = 481451100] Future Scheduled [address] [facility] Test 00:00:00 malignant neoplasm of [facility] Center colon (procedure) [code = 305044600] Future Scheduled [address] [facility] Test 00:00:00 malignant neoplasm of Medica [facility] Center colon (procedure) [code = 769763950] Future Scheduled 1950 Sigmoidoscopy [facility]code [facility] 00:[facility] Sigmoidoscopy] Medical May r Encounters Start End Encounter Admission Attending Care Care Encounter Source Date/Time Date/Time Type Type Clinicians Facility Department ID 2022-03-31 2022-03-31 Orders Doctor CASTRO 1.2.840.114 [id number] Univers 00:00:00 00:00:00 Only Unassigned, MARTHA 350.1.13.10 ity of [place] [facility] 4.2.7.2.686 Rolando as [phone] [address] 2022-03-02 2022-03-02 Orders Doctor MATTHEW 1.2.840.114 [id number] Univers 00:00:00 00:00:00 Only Unassigned, MARTHA 350.1.13.10 ity of [place] [facility] 4.2.7.2.686 Rolando as [id number] [address] 2022-02-26 2022-02-26 Orders Doctor MATTHEW 1.2.840.114 [id number] Univers 00:00:00 00:00:00 Only Unassigned, MARTHA 350.1.13.10 ity of [place] [facility] 4.2.7.2.686 Rolando as [phone] [address] 2022-02-23 2022-02-23 Transition ENE Wang 1.2.840.114 [id number] Univers 00:00:00 00:00:00 of Care Nyasia B LEHMAN 350.1.13.10 [id number] [address] 2022-02-22 2022-02-22 Transition ENE Wang 1.2.840.114 [id number] Univers 00:00:00 00:00:00 of Care Nyasia B LEHMAN 350.1.13.10 [place] [id number] [address] 2022-02-22 2022-02-22 Orders Doctor CASTRO 1.2.840.114 [id number] Univers 00:00:00 00:00:00 Only Unassigned, MARTHA 350.1.13.10 ity of [place] [facility] 4.2.7.2.686 Rolando as [phone] [address] 2022-02-20 2022-02-20 Emergency X [facility] ERT [id number] Univers 18:53:00 20:00:00 FELICIA loyola [facility] 2022-02-20 2022-02-20 Emergency [facility] 1.2.840.114 [id number] Univers 18:53:00 20:00:00 [facility] 350.1.13.10 i ty of [place] 4.2.7.2.686 [place] rene MES[place] [phone] [facility] [address] ([facility]) 2022-02-20 2022-02-20 Emergency X [facility] ERT [id number] Univers 18:53:00 20:00:00 FELICIA galo o f [facility] 2022-02-14 2022-02-20 Hospital Osbaldo [facility] 1.2.840.1 [id number] Univers 14:51:00 17:13:00 Encounter Corwin Walden [facility] 350.1.13.10 ity of [place] 4.2.7.2.686 T Carmelo Foster [phone] [facility] [address] ([facility]) 2022-02-14 2022-02-20 Inpatient X LICONA, [facility] [id number] Univers 14:51:00 17:13:00 CARMELO galo [facility] 2022-02-17 2022-02-17 [facility] 1.2.840.114 [id number] Univers 09:00:00 11:00:00 [facility] 350.1.13.10 it y of [place] 4.2.7.2.686 [place] [phone] [facility] [address] ([facility]) 2022-01-08 2022-01-08 Outpatient DMG DMG [id number] [facility]oted 07:10:00 07:10:00 0715 Medica l Group 2021-12-09 2021-12-09 Outpatient FAYE MILLER, SLE SLE [id number] [facility]H 00:00:00 00:00:00 RAKESHBOSKYLER 2021-12-08 2021-12-08 Telephone Haven Ortiz [facility] [id number] [facility] 00[facility]00 [facility] 2021-12-08 2021-12-08 Telephone Haven Ortiz [facility] [id number] 00:[facility] 00:00[facility]00 [facility] 2021-11-08 2021-11-12 [facility] Jen Barbour [facility] [id number] 03:10:00 20:10:00 [facility] 2021-11-08 2021-11-12 [facility] Jen Alonzo [facility] [id number] [facility] 03:10:00 20:10:00 Encounter Luis Juventino Nieto [facility] 2021-11-08 2021-11-12 [facility] [id number] [facility] 03:10:00 20:10:00 [facility] 2021-11-10 2021-11-10 Travel [facility] [id number] [facility] 00:[facility]00 00:00:00 [facility] 2021-11-10 2021-11-10 Travel [facility] [id number] [facility] 00:[facility]00 00:00[facility]00 [facility] 2021-10-11 2021-10-11 Emergency X [facility] ERT [id number] Univers 05:52:00 06:48:00 [facility] 2021-10-11 2021-10-11 Emergency [facility] [id number] [id number] Univers 05:52:00 06:48:00 [facility] 350.1.13.10 ity [facility] 4.2.7.2.686 [facility] [id number] [place] [address] Branch 2020-11-21 2020-11-21 Outpatient DMG DMG [id number] [facility] 08:00:00 08:00:00 0528 Medica l Group 2020-05-05 2020-05-05 Outpatient JOHN [facility] PUL [facility] 13:21:00 15:55:00 PUSHAN 2020-04-15 2020-04-15 DOLLY [facility] [id number] [place] 14:00:00 14:00:00 nathan DESIR M.D. [facility] Derick FRANCIS M.D. [place] 2020-04-07 2020-04-07 DOLLY Mai Pulmonary & [id number] [place] 13:30:00 13:30:00 korina; PASTORA LOPEZ, Sleep Physi ci Carlos GUILLORY M.D. Results Test Description Test Time Test Comments Results Result Comments Source BLOOD CULTURE 2021-11-13 07:00:32 Test Item Value Reference Range Interpretation Comme nts CULTURE (BEAKER) (test code = 1095) No growth in 5 days BLOOD [id number] 07:00:32 Test Item Value Reference Range Interpretation Comments CULTURE (BEAKER) (test No growth in 5 days code = 1095) POC-Glucose [id number] 16:01:13 Test Item Value Reference Range Interpretation Comments POC-Glucose Meter (test 136 mg/dL 70-110 H : TE STED AT [facility] code = 1538) [facility] [place] [address]: Cradle Slide Maker/Techni brooklyn ID = [id number] for Castaneda, Martina cherry Lab Interpretation (test Abnormal code = 11501-8) [facility] [id number] 16:01:13 Test Item Value Reference Range Interpretation Comments POC-Glucose Meter (test 136 mg/dL 70-110 H : TE STED AT [facility] code = 1538) [address] [place] [address]: Cradle Slide Maker/Techni brooklyn ID = [id number] for Castaneda, Martina cherry Lab Interpretation (test Abnormal code = 62894-7) [facility]Glucose [id number] 16:01:13 Test Item Value Reference Range Interpretation Comments POC-Glucose Meter (test 136 mg/dL 70-110 H : TE STED AT [facility] code = 1538) [address] [place], [place] [address]: Cradle Slide Maker/Techni brooklyn ID = [id number] for Castaneda, Martina cherry Lab Interpretation (test Abnormal code = 77113-8) [facility] [id number] 16:01:13 Test Item Value Reference Range Interpretation Comments POC-GLUCOSE METER 136 mg/dL 70-110 H : TESTED A T [facility] 1317 (BEAKER) (test code [facility], = 1538) [place] [address]: Cradle Slide Maker/Techni brooklyn ID = [id number] for Cerv antes, Crystal POCT-GLUCOSE [id number] 11:30:14 Test Item Value Reference Range Interpretation Comments POC-GLUCOSE METER 112 mg/dL 70-110 H : TESTED A T [facility] [address] (BEAKER) (test code [address], = 1538) [facility] 77 478: Cradle Slide Maker/Techni brooklyn ID = [id number] for Antawn jaime, Crystal POCT-GLUCOSE [id number] 06:45:43 Test Item Value Reference Range Interpretation Comments POC-GLUCOSE METER 150 mg/dL 70-110 H : TESTED A T [facility] [address] (BEAKER) (test code [address], = 1538) [place] [address] 478: Cradle Slide Maker/Techni brooklyn ID = [id number] for Taina Poe [id number] 06:05:04 Test Item Value Reference Range Interpretation Comments MAGNESIUM (BEAKER) (test code = 2.2 mg/dL 1.5-3.0 627) Cradle Slide Maker ID - [id number] ID - [id number] ID - QBBGERZXJ355Fdxtovhc ID - [id number] METABOLIC [id number] 06:04:06 Test Item Value Reference Range Interpretation [...] 1092) DATA TO CALCULA TE ESTIMATED GFR. Cradle Slide Maker ID - [id number] ID - [id number] ID - LCRCLMNEB510Rsszrnup ID - KXENOATKX160Seybfstu ID - JKAUTALQC123Tffgmxdp ID - YOMOHICSO536Cbbwgcrl ID - GTTEZEXJI386Tjgbvlmp ID - VEZWJLIJY584Fnmxbdsj ID - BBRLFXLKC588Kpoumhzx ID - [id number] W/PLT COUNT & AUTO DIFFERENTIAL 2021-11-12 05:53:41 [...] PERCENT (BEAKER) (test code = 2801) POCT-GLUCOSE [id number] 21:50:33 Test Item Value Reference Range Interpretation Comments POC-GLUCOSE METER 173 mg/dL 70-110 H : TESTED A T [facility] [address]17 (BEAKER) (test code [facility] NT [facility], = 1538) [place] [address]: Cradle Slide Maker/Techni brooklyn ID = [id number] for Taina Poe POCT-GLUCOSE [id number] 16:45:23 Test Item Value Reference Range Interpretation Comments POC-GLUCOSE METER 134 mg/dL 70-110 H : TESTED A T [facility] [address]17 (BEAKER) (test code [facility] [facility] NT [facility] = 1538) [place] [address]: Cradle Slide Maker/Techni brooklyn ID = [id number] for Dapr emont, Heather POCT-GLUCOSE [id number] 11:45:21 Test Item Value Reference Range Interpretation Comments POC-GLUCOSE METER 125 mg/dL 70-110 H : TESTED A T [facility] [address]17 (BEAKER) (test code [facility], = 1538) [place] [address]: Cradle Slide Maker/Techni broolkyn ID = [id number] for Dapr emont, Heather Sputum Culture + Gram [id number] 08:54:21 Test Item Value Reference Range Interpretation Comments Result (test code = 4+ Normal respiratory 6463-4) luis eduardo present Gram Stain Result 3+ Mixed luis eduardo (test code = 1123) [facility] [id number] 08:54:21 Test Item Value Reference Range Interpretation Comments Result (test code = 4+ Normal respiratory 6463-4) luis eduardo present Gram Stain Result 3+ Mixed luis eduardo (test code = 1123) [facility] Gram [id number] 08:54:21 Test Item Value Reference Range Interpretation Comments Result (test code = 4+ Normal respiratory 6463-4) luis eduardo present Gram Stain Result 3+ Mixed luis eduardo (test code = 1123) [facility] + GRAM [id number] 08:54:21 Test Item Value Reference Range Interpretation Comments CULTURE (BEAKER) 4+ Normal respiratory (test code = 1095) luis eduardo present GRAM STAIN RESULT 1+ White blood cells (BEAKER) (test code = seen 1123) GRAM STAIN RESULT 1+ epithelial cells (BEAKER) (test code = 49958) GRAM STAIN RESULT 3+ Mixed luis eduardo (BEAKER) (test code = 11418) RAD, CHEST, 1 VIEW, NON [id number] 07:33:00Reason for exam:->PNA [facility] : 1950 Sex: MFINAL REPORT CHEST AP PORTABLE SEMIERECT Comparison exam: 11/09/2021 History provided: Pneumonia Heart size normal. Chronic pleural thickening at the right base. Lungs free of acute disease and vascularity normal. Signed: Carlos Navarro MDReport Verified Date/Time: 11/11/2021 07:33:28 Reading Location: [facility] Diagnostic Imaging Reading Room - [facility] 1.310.12 POCT-GLUCOSE [id number] 06:54:14 Test Item Value Reference Range Interpretation Comments POC-GLUCOSE METER 133 mg/dL 70-110 H : TESTED A T [facility] 1317 (BEAKER) (test code [facility] [address], = 1538) [facility] 77 478: Cradle Slide Maker/Techni brooklyn ID = [id number] for Taina Poe [id number] 04:53:42 Test Item Value Reference Range Interpretation Comments MAGNESIUM (BEAKER) (test code = 2.3 mg/dL 1.5-3.0 627) Cradle Slide Maker ID - [id number] ID - [id number] ID - biox34Qzdogeya ID - [id number] BASIC METABOLIC [id number] 04:52:53 Test Item Value Reference Range Interpretation [...] 1092) DATA TO CALCULA TE ESTIMATED GFR. Cradle Slide Maker ID - [id number] ID - [id number] ID - ptpu85Hqksgckh ID - ymki94Zwudzwor ID - crwv79Uftquhpd ID - pszg82Fquzcgqr ID - daoq05Lcpfcfxl ID - buyb68Pnfcjaso ID - yrtv96Rildktil ID - crea83TWS W/PLT COUNT & AUTO [id number] 04:28:30 Test Item Value Reference Range Interpretation [...] code = 2801) 2D Echo W/Doppler(CW/PW/Color)2021-11-11 00:37:05Ejection FractionSLEH [facility]CHO [facility]/Doppler(CW/PW/Color)2021-11-11 00:37:05Ejection FractionSLEH ECHO HEARTLAB [facility] Echo W/Doppler(CW/PW/Color) 2021-11-11 00:37:05Ejection FractionSLEH ECHO HEARTLAB PsychiatricPOCT-GLUCOSE [id number] 20:59:54 Test Item Value Reference Range Interpretation Comments POC-GLUCOSE METER 148 mg/dL 70-110 H : TESTED A T [facility] [address] (BEAKER) (test code [address], = 1538) [place] [address]: Cradle Slide Maker/Techni brooklyn ID = [id number] for Taina Poe POCT-GLUCOSE [id number] 15:51:00 Test Item Value Reference Range Interpretation Comments POC-GLUCOSE METER 156 mg/dL 70-110 H : TESTED A T [facility] [address] (BEAKER) (test code [address], = 1538) [place] [address]: Cradle Slide Maker/Techni brooklyn ID = [id number] for Shazia Scott POCT-GLUCOSE [id number] 11:44:26 Test Item Value Reference Range Interpretation Comments POC-GLUCOSE METER 139 mg/dL 70-110 H : TESTED A T [facility] [address] (BEAKER) (test code [address], = 1538) [place] [address]: Cradle Slide Maker/Techni brooklyn ID = [id number] for Shazia Scott BASIC METABOLIC [id number] 07:34:29 Test Item Value Reference Range Interpretation [...] 1092) DATA TO CALCULA TE ESTIMATED GFR. Cradle Slide Maker ID - DSENSONOperator ID - DSENSONOperator ID [...] (test code = 18 U/L 5-50 347) Cradle Slide Maker ID - DSENSONOperator ID - DSENSONOperator ID - DSENSONOperator ID - DSENSONOperator ID - DSENSONOperator ID - DSENSONOperator ID - DSENSONOperator ID - DSENSONOperator ID - DSENSONOperator ID - DSENSONCBC W/PLT COUNT & AUTO [id number] 07:19:24 Test Item Value Reference Range Interpretation [...] PERCENT (BEAKER) (test code = 2801) POCT-GLUCOSE [id number] 07:05:35 Test Item Value Reference Range Interpretation Comments POC-GLUCOSE METER 129 mg/dL 70-110 H : TESTED A T [facility] [address] (BEAKER) (test code [address], = 1538) [facility] 77 478: Cradle Slide Maker/Techni brooklyn ID = [id number] for Arlet Grossmanzabeth POCT-GLUCOSE [id number] 22:17:06 Test Item Value Reference Range Interpretation Comments POC-GLUCOSE METER 135 mg/dL 70-110 H : TESTED A T [facility] [address] (BEAKER) (test code [address] I NT [facility], = 1538) [facility] 77 8: Cradle Slide Maker/Techni brooklyn ID = [id number] for Ruth Grossman POCT-GLUCOSE [id number] 16:21:48 Test Item Value Reference Range Interpretation Comments POC-GLUCOSE METER 178 mg/dL 70-110 H : Notified RN/MD: TESTED (BEAKER) (test code AT [facility] [address] = 1538) [place] [address]: Cradle Slide Maker/Techni brooklyn ID = [id number] for Alee Calderon HEPATITIS PANEL, [id number] 14:58:49 Test Item Value Reference Range Interpretation Comments HEPATITIS A IGM ANTIBODY (BEAKER) Nonreactive Nonreactive (test code = 498) HEPATITIS B CORE IGM ANTIBODY Nonreactive Nonreactive (BEAKER) (test code = 645) HEPATITIS C ANTIBODY (BEAKER) Nonreactive Nonreactive (test code = 367) HEPATITIS B SURFACE ANTIGEN (2) Nonreactive Nonreactive (BEAKER) (test code = 2585) Cradle Slide Maker ID - DBOperator ID - DBPOCT-GLUCOSE [id number] 12:30:38 Test Item Value Reference Range Interpretation Comments POC-GLUCOSE METER 184 mg/dL 70-110 H : Notified RN/MD: TESTED (MARLENA) (test code AT [facility] [address] = 1538) [place] [address]: Cradle Slide Maker/Techni brooklyn ID = [id number] for Francisco Javier h, Lorita VENOUS DOPPLER LEGS, [id number] 10:54:00Reason for exam:->DVT [facility] : 1950 Sex: [...] Reading Location: [facility] Radiology Reading Room RAD, CHEST, 1 VIEW, NON [id number] 09:00:00 Reason for exam:->PNAShould this be performed at the bedside?->Yes [facility] : 1950 Sex: [...] Reading Location: [facility] Radiology Reading Room POCT-GLUCOSE [id number] 07:33:54 Test Item Value Reference Range Interpretation Comments POC-GLUCOSE METER 156 mg/dL 70-110 H : Notified RN/MD: TESTED (BEAKER) (test code AT [facility] [address] = 1538) [place] [address]: Cradle Slide Maker/Techni brooklyn ID = [id number] for Alec Bush [id number] 05:00:02 Test Item Value Reference Range Interpretation Comments PARTIAL THROMBOPLASTIN 111.6 seconds 23.0-35.0 H Berna l Information TIME (BEAKER) (test (Auto Ou tput) code = 760) HIV-1 ANTIGEN WITH HIV-1/2 [id number] 04:53:13 Test Item Value Reference Range Interpretation Comments HIV-1 ANTIGEN WITH HIV 1\T\2 Nonreactive Nonreactive ANTIBODY (2) (BEAKER) (test code = 2586) Cradle Slide Maker ID - [id number] METABOLIC [id number] 04:38:36 Test Item Value Reference Range Interpretation [...] 1092) DATA TO CALCULA TE ESTIMATED GFR. Cradle Slide Maker ID - [id number] ID - YOVCBSIGF114Ablbiaja ID - AANALQBKW767Bhqdebgq ID - BJETOZQLL475Piemgqee ID - LSFXXPHIU852Acadfgud ID - WQELCRHIS883Rbkaqlpz ID - LCFHUALQY484Gpnrlhjh ID - KFTFOAAPO431Xpxsmjsq ID - LMFKKDCON854Xkvetdtu ID - SYBTZLPRN924BRVEARH FUNCTION [id number] 04:36:24 Test Item Value Reference Range Interpretation [...] (test code = 22 U/L 5-50 347) Cradle Slide Maker ID - [id number] ID - HTNZPZZXO412Gazxsvyn ID - HKVMGQEOP735Tyishlde ID - OCBYKHGCJ773Qnvgeloz ID - WXPHREJUW166Smugerki ID - CUKDWWLIT905Meylihqg ID - PURXXFTMA965Sdjusluh ID - FFOMOOHJG920Vhencuro ID - PROATUZJZ686Abpohsrt ID - ROKTCYFAD587OSYGYHCPOT [id number] 04:30:27 Test Item Value Reference Range Interpretation Comments HEMOGLOBIN A1C (BEAKER) (test code = 5.8 % 4.3-6.1 368) Cradle Slide Maker ID - [id number] W/PLT COUNT & AUTO [id number] 04:17:15 Test Item Value Reference Range Interpretation [...] PERCENT (BEAKER) (test code = 2801) TROPONIN [id number] 01:16:05 Test Item Value Reference Range Interpretation [...] failure, acidosis, acute neurological disease, and persistent tachyarrhythmia.Cradle Slide Maker ID - [id number]-BHNSIMB [id number] 20:56:12 Test Item Value Reference Range Interpretation Comments POC-GLUCOSE METER 169 mg/dL 70-110 H : Notified RN/MD: TESTED ([facility]) (test code AT [address] = 1538) MARIA TERESA [facility] [address]: Cradle Slide Maker/Techni brooklyn ID = [id number] for Dottie Collins [id number] 20:43:27 Test Item Value Reference Range Interpretation Comments PARTIAL THROMBOPLASTIN 43.3 seconds 23.0-35.0 H Final Information TIME ([facility]) (test (Auto Ou tput) code = 760) [id number] 17:13:58 Test Item Value Reference Range Interpretation Comments GLUCOSE RANDOM ([facility]) (test code 247 mg/dL 70-110 H = 652) Cradle Slide Maker ID - DSENSONTROPONIN [id number] 17:03:16 Test Item Value Reference Range Interpretation Comments TROPONIN I (AKER) (test code = 0.57 ng/mL 0.00-0.15 HH [...] failure, acidosis, acute neurological disease, and persistent tachyarrhythmia.Cradle Slide Maker ID - DSENSONLegionella antigen, [id number] 14:05:17 Test Item Value Reference Range Interpretation Comments Legionella Urine Negative - see Negative for L. Antigen (test code comment pneumophi la = 01680-6) serogroup 1 ant igen, suggesting no r ecent or current infe ction with this serog roup. Legionellosis c annot be ruled out si nce other serogroup s and species may cau se disease. [facility] CampusLegionella antigen, [id number] 14:05:17 Test Item Value Reference Range Interpretation Comments Legionella Urine Negative - see Negative for L. Antigen (test code comment pneumophi la = 36607-8) serogroup 1 ant igen, suggesting no r ecent or current infe ction with this serog roup. Legionellosis c annot be ruled out si nce other serogroup s and species may cau se disease. [facility], [id number] 14:05:17 Test Item Value Reference Range Interpretation Comments Legionella Urine Negative - see Negative for L. Antigen (test code comment pneumophi la = 67788-8) serogroup 1 ant igen, suggesting no r ecent or current infe ction with this serog roup. Legionellosis c annot be ruled out si nce other serogroup s and species may cau se disease. [facility]LE[facility]ION[facility]LL[facility] ANTIGEN, [id number] 14:05:17 Test Item Value Reference Range Interpretation Comments L. PNEUMOPHILA Negative - see Negative fo r L. SEROGP 1 UR AG comment pneumophila (BEAKER) (test code serogrou p 1 antigen, = 1156) suggesting no r ecent or current infe ction with this serog roup. Legionellosis c annot be ruled out si nce other serogroup s and species may cau se disease. U/S, RENAL, [id number] 14:05:00Reason for exam:->elevated creatine [facility] : 1950 Sex: [...] renal ultrasound. No hydronephrosis Signed: [facility] Jamison [facility] Verified Date/Time: 11/08/2021 14:05:00 Reading Location: [facility] C013Y CT Body Reading Room Strep pneumoniae [id number] 14:04:46 Test Item Value Reference Range Interpretation Comments Strep pneumoniae Presumptive negative Presumptive Antigen (test code = [place] [address]-2) pneumonia - see pneumococcal comment pneumonia - [...] test. Lab Interpretation Normal (test code = 34264-0) [facility] [id number] 14:04:46 Test Item Value Reference Range Interpretation Comments Strep pneumoniae Presumptive negative Presumptive Antigen (test code = [place] [address]-2) pneumonia - see pneumococcal comment pneumonia - [...] test. Lab Interpretation Normal (test code = 42980-3) [facility] [id number] 14:04:46 Test Item Value Reference Range Interpretation Comments Strep pneumoniae Presumptive negative Presumptive Antigen (test code = [place] [address]-2) pneumonia - see pneumococcal comment pneumonia - [...] test. Lab Interpretation Normal (test code = 11549-9) [facility] PNEUMONIAE [id number] 14:04:46 Test Item Value Reference Range Interpretation [...] the detection limit of the test. TROPONIN [id number] 12:03:41 Test Item Value Reference Range Interpretation Comments TROPONIN I (BEAKER) (test code = 0.60 ng/mL 0.00-0.15 [facility]) Troponin I (TnI) levels must be interpreted [...] failure, acidosis, acute neurological disease, and persistent tachyarrhythmia.Cradle Slide Maker ID - DSENSONBASIC METABOLIC [id number] 11:54:31 Test Item Value Reference Range Interpretation [...] 1092) DATA TO CALCULA TE ESTIMATED GFR. Cradle Slide Maker ID - DSENSONOperator ID - DSENSONOperator ID - DSENSONOperator ID - DSENSONOperator ID - DSENSONOperator ID - DSENSONOperator ID - DSENSONOperator ID - DSENSONOperator ID - DSENSONOperator ID - DSENSONOperator ID - DSENSONOperator ID - DSENSONOperator ID - [id number] 11:45:04 Test Item Value Reference Range Interpretation Comments PARTIAL THROMBOPLASTIN 44.4 seconds 23.0-35.0 H Final Information TIME (MARLENA) (test (Auto Ou tput) code = 760) POCT-GLUCOSE [id number] 11:43:30 Test Item Value Reference Range Interpretation Comments POC-GLUCOSE METER 141 mg/dL 70-110 H : Notified RN/MD: TESTED (MARLENA) (test code AT [facility] [address] = 1538) [facility] [address]: Cradle Slide Maker/Techni [place] ID = [id number] for Francisco JavierAlec [place] PUL PERF IMAGING, [id number] 09:49:00Unlisted Reason for Exam - Click Yes and Enter Reason Below->No [facility] : 1950 Sex: MFINAL REPORT PROCEDURE: LUNG SCAN - perfusion only CPT CODE: 54374 INDICATION: Elevated D-dimer PROTOCOL: 5.8 mCi of [...] Verified Date/Time: 11/08/2021 09:49:42 CT, CHEST, WITHOUT [id number] 09:47:00Unlisted Reason for Exam - Click Yes and Enter Reason Below->No [facility] : 1950 Sex: [...] 11/08/2021 09:47:14 RAD, CHEST, 1 VIEW, NON [id number] 08:47:00Reason for exam:->ETT placementShould this be performed at the bedside?->Yes [facility] : 1950 Sex: [...] Ou tput) code = 760) LACTIC ACID, [id number] 05:34:16 Test Item Value Reference Range Interpretation Comments LACTATE BLOOD 1.89 mmol/L See_Comment [Automated me ssage] VENOUS (2) (BEAKER) The syst em which (test code = 2872) generated this result transmitted ref erence range: 0.50-<2. 00. The reference range was not used to interpr et this result as normal/abnormal . Cradle Slide Maker ID - LITOOperator ID - LITOOperator ID - LITOOperator ID - ROSALBA [id number] 05:31:10 Test Item Value Reference Range Interpretation Comments PROCALCITONIN (BEAKER) (test code 0.15 ng/mL <0.05 H = 3036) SEPSIS RISK (ng/mL)Low: 0.05-0.50Intermediate: 0.51-2.00High: >=2.01 Urinalysis with Microscopic If [id number] 05:13:27 Test Item Value Reference Range Interpretation Comments Color, UA (test code = 5778-6) Yellow Clarity, UA (test code = 5767-9) Clear Specific Foster, UA (test code = 1.015 1.001-1.035 5811-5) pH, UA (test code = 5803-2) 5.0 5.0-8.0 Protein, UA (test code = 61282-1) Negative Negative Glucose, UA (test code = 365) Negative Negative Ketones, UA (test code = 2514-8) Negative Negative Bilirubin, UA (test code = 98739-0) Negative Negative Blood, UA (test code = 97372-0) Small Negative A Nitrite, UA (test code = 5802-4) Negative Negative Leukocytes, UA (test code = 5799-2) Negative Negative Urobilinogen, UA (test code = 0.2 mg/dL 0.2-1.0 12603-9) Specimen Source (test code = 2795) Lab Interpretation (test code = Abnormal 92145-8) [facility] with Microscopic If [id number] 05:13:27 Test Item Value Reference Range Interpretation Comments Color, UA (test code = 5778-6) Yellow Clarity, UA (test code = 5767-9) Clear Specific Foster, UA (test code = 1.015 1.001-1.035 5811-5) pH, UA (test code = 5803-2) 5.0 5.0-8.0 Protein, UA (test code = 23893-7) Negative Negative Glucose, UA (test code = 365) Negative Negative Ketones, UA (test code = 2514-8) Negative Negative Bilirubin, UA (test code = 88240-2) Negative Negative Blood, UA (test code = 32161-8) Small Negative A Nitrite, UA (test code = 5802-4) Negative Negative Leukocytes, UA (test code = 5799-2) Negative Negative Urobilinogen, UA (test code = 0.2 mg/dL 0.2-1.0 45672-1) Specimen Source (test code = 2795) Lab Interpretation (test code = Abnormal 33581-0) [facility]inal[facility] with Microscopic If [id number] 05:13:27 Test Item Value Reference Range Interpretation Comments Color, UA (test code = 5778-6) Yellow Clarity, UA (test code = 5767-9) Clear Specific Foster, UA (test code = 1.015 1.001-1.035 5811-5) pH, UA (test code = 5803-2) 5.0 5.0-8.0 Protein, UA (test code = 29481-7) Negative Negative Glucose, UA (test code = 365) Negative Negative Ketones, UA (test code = 2514-8) Negative Negative Bilirubin, UA (test code = 37967-6) Negative Negative Blood, UA (test code = 27598-4) Small Negative A Nitrite, UA (test code = 5802-4) Negative Negative Leukocytes, UA (test code = 5799-2) Negative Negative Urobilinogen, UA (test code = 0.2 mg/dL 0.2-1.0 98195-6) Specimen Source (test code = 2795) Lab Interpretation (test code = Abnormal 87113-8) [facility]URINALYSIS WITH MICROSCOPIC IF [id number] 05:13:27 Test Item Value Reference Range Interpretation [...] SOURCE(BEAKER) (test code = 2795) Urinalysis Microscopic [id number] 05:13:21 Test Item Value Reference Range Interpretation Comments RBC, UA (test code = <5 See_Comment [Autom ated message] 799-7) The system [employer] generated this result transmitted ref erence range: /HPF. Th e reference range was not used to int erpret this result as normal/abnormal . WBC, UA (test code = None Seen See_Comment [Autom ated message] 64389-5) The system [employer] generated this result transmitted ref erence range: /HPF. Th e reference range was not used to int erpret this result as normal/abnormal . Bacteria, UA (test Occasional code = 13873-5) SQUAMOUS EPITHELIAL None Seen See_Comment [Automa josh message] (test code = 51011-3) The sy stem which generated this result transmitted ref erence range: /HPF. Th e reference range was not used to int erpret this result as normal/abnormal . HYALINE CASTS (test 0-5 See_Comment [Automa josh message] code = 5796-8) The system [employer] generated this result transmitted ref erence range: /LPF. Th e reference range was not used to int erpret this result as normal/abnormal . [facility]Urinal[facility] Microscopic [id number] 05:13:21 Test Item Value Reference Range Interpretation Comments RBC, UA (test code = <5 See_Comment [Autom ated message] 799-7) The system [employer] generated this result transmitted ref erence range: /HPF. Th e reference range was not used to int erpret this result as normal/abnormal . WBC, UA (test code = None Seen See_Comment [Autom ated message] 06043-3) The system [employer] generated this result transmitted ref erence range: /HPF. Th e reference range was not used to int erpret this result as normal/abnormal . Bacteria, UA (test Occasional code = 56720-5) SQUAMOUS EPITHELIAL None Seen See_Comment [Automa josh message] (test code = 20515-7) The sy stem which generated this result transmitted ref erence range: /HPF. Th e reference range was not used to int erpret this result as normal/abnormal . HYALINE CASTS (test 0-5 See_Comment [Automa josh message] code = 5796-8) The system [employer] generated this result transmitted ref erence range: /LPF. Th e reference range was not used to int erpret this result as normal/abnormal . [facility] CampusUrinalysis Microscopic [id number] 05:13:21 Test Item Value Reference Range Interpretation Comments RBC, UA (test code = <5 See_Comment [Autom ated message] 799-7) The system [employer] generated this result transmitted ref erence range: /HPF. Th e reference range was not used to int erpret this result as normal/abnormal . WBC, UA (test code = None Seen See_Comment [Autom ated message] 79198-7) The system ic h generated this result transmitted ref erence range: /HPF. Th e reference range was not used to int erpret this result as normal/abnormal . Bacteria, UA (test Occasional code = 56614-4) SQUAMOUS EPITHELIAL None Seen See_Comment [Automa josh message] (test code = 85384-9) The sy stem which generated this result transmitted ref erence range: /HPF. Th e reference range was not used to int erpret this result as normal/abnormal . HYALINE CASTS (test 0-5 See_Comment [Automa josh message] code = 5796-8) The system [facility] generated this result transmitted ref erence range: /LPF. Th e reference range was not used to int erpret this result as normal/abnormal . [facility]URINALYSIS [id number] 05:13:21 Test Item Value Reference Range Interpretation Comments RBC UA-MANUAL (BEAKER) (test <5 /HPF code = 1659) WBC UA-MANUAL (BEAKER) (test None Seen /HPF code = 1661) BACTERIA (BEAKER) (test code = Occasional 517) SQUAMOUS EPITHELIAL MANUAL None Seen /HPF (BEAKER) (test code = 1663) HYALINE CASTS MANUAL (BEAKER) 0-5 /LPF (test code = 1665) TROPONIN [id number] 05:01:28 Test Item Value Reference Range Interpretation Comments TROPONIN I (BEAKER) (test code = 0.27 ng/mL 0.00-0.15 [facility]) Troponin I (TnI) levels must be interpreted [...] failure, acidosis, acute neurological disease, and persistent tachyarrhythmia.Cradle Slide Maker ID - LITOBASIC METABOLIC PANEL 2021-11-08 05:00:17 [...] 1092) DATA TO CALCULA TE ESTIMATED GFR. Cradle Slide Maker ID - LITOOperator ID - LITOOperator ID - LITOOperator ID - LITOOperator ID - LITOOperator ID - LITOOperator ID - LITOOperator ID - LITOOperator ID - LITOOperator ID - LITOB-TYPE NATRIURETIC FACTOR (BNP)2021-11-08 05:00:11 Test Item Value Reference Range Interpretation Comments B-TYPE NATRIURETIC PEPTIDE (BEAKER) 480 pg/mL 0-100 H (test code = 700) Cradle Slide Maker ID - LITOCBC W/PLT COUNT & AUTO [id number] 04:56:38 Test Item Value Reference Range Interpretation [...] H PERCENT (BEAKER) (test code = 2801) [id number] 04:53:09 Test Item Value Reference Range Interpretation Comments D-DIMER QUANTITATIVE 5.80 MG/L FEU <0.50 H Final Information (BEAKER) (test code = (Auto Output) 671) REGARDING D-DIMER RESULTS: The 98% NPV (Negative Predictive Value) for DVT/PE exclusion is 0.50 mg/LFEU as suggested by the telephone answering service operator and as approved by the FDA.PROTHROMBIN TIME/[id number] 04:52:30 Test Item Value Reference Range Interpretation Comments PROTIME (BEAKER) 11.0 seconds 9.3-12.0 Final Infor mation (test code = 759) (Auto Outp ut) INR (BEAKER) (test 1.00 See_Comment Final Inf ormation code = 370) (Auto Output) [Automated mess age] The system [employer] generated this result transmitted ref erence range: <=5.90. The reference range was not used to int erpret this result as normal/abnormal . RECOMMENDED COUMADIN/WARFARIN INR THERAPY RANGESSTANDARD DOSE: 2.0 - 3.0 Includes: PROPHYLAXIS for venous thrombosis, systemic embolization; TREATMENT for venous thrombosis and/or pulmonary embolus.HIGH RISK: Target INR is 2.5-3.5 for patients with mechanical heart valves.HEMOGLOBIN [id number] 04:51:27 Test Item Value Reference Range Interpretation Comments HEMOGLOBIN A1C (BEAKER) (test code = 5.7 % 4.3-6.1 368) Cradle Slide Maker ID - LITOHEPATIC FUNCTION [id number] 04:50:07 Test Item Value Reference Range Interpretation [...] (test code = 31 U/L 5-50 347) Cradle Slide Maker ID - LITOOperator ID - LITOOperator ID - LITOOperator ID - LITOOperator ID - LITOOperator ID - LITOOperator ID - [id number] 04:49:45 Test Item Value Reference Range Interpretation Comments MAGNESIUM (BEAKER) (test code = 2.8 mg/dL 1.5-3.0 627) Cradle Slide Maker ID - LITOOperator ID - LITOOperator ID - LITOOperator ID - ROSALBA [id number] 04:46:46 Test Item Value Reference Range Interpretation Comments PHOSPHORUS (BEAKER) (test code = 4.8 mg/dL 2.5-4.5 H 604) Cradle Slide Maker ID - LITOPOCT-GLUCOSE [id number] 04:11:36 Test Item Value Reference Range Interpretation Comments POC-GLUCOSE METER 156 mg/dL 70-110 H : TESTED A T [address] (BEAKER) (test code [address], = 1538) [facility] [place] [address]: Cradle Slide Maker/Techni [place] ID = [id number] for Real Lei, ABDOMEN/KUB 1 VIEW [id number] 04:02:00Reason for exam:->NG tube placement[facility]: [facility] : 1950 Sex: [...] on 204:02 AMRAD, CHEST, 1 VIEW, NON [id number] 03:57:00Reason for exam:->AHRFShould this be performed at the bedside?->Yes [facility] : 1950 Sex: [...] contours. Additional findings: None. Signed: Rigo Whaley [facility] Verified Date/Time: 11/08/2021 03:57:41 Blood gas, [id number] 03:54:11 Test Item Value Reference Range Interpretation [...] 75 Lab Interpretation Abnormal (test code = 27356-7) [facility], [id number] 03:54:11 Test Item Value Reference Range Interpretation Comments pH, Arterial (test code 7.38 7.35-7.45 = 2744-1) pCO2, Arterial (test 40 See_Comment [Autom ated code = 2019-01) message] The system which generated this result [...] 75 Lab Interpretation Abnormal (test code = 12362-5) [facility] gas, [id number] 03:54:11 Test Item Value Reference Range Interpretation Comments pH, Arterial (test code 7.38 7.35-7.45 = 2744-1) pCO2, Arterial (test 40 See_Comment [Autom ated code = 2019-01) message] The system which generated this result [...] 75 Lab Interpretation Abnormal (test code = 63758-4) [facility] CampusBLOOD GAS, [id number] 03:54:11 Test Item Value Reference Range Interpretation [...]
[2022-05-17] MEDS ORDERED: METHYLPREDNISOLONE 125 MG INJ ONE (06:13)
--- NOTE | 2022-05-17 06:42 | EDPHYS ---
Physician Documentation [facility] Name: Gabo Chow Sr Age: 71 yrs Sex: Male : 1950 Arrival Date: 05/17/2022 Time: 06:06 Bed 5 Private MD: ED Physician Windy Beal HPI: 05/17 06:11 This 71 yrs old Male presents to ER via EMS with complaints of SOB. sd2 06:11 71 yo M presents via EMS with CC of SOB. EMS reports patient had acute onset of SOB sd2 after getting up and walking to and from the kitchen this morning. Pt reports he started wheezing and then couldn't get his breathing treatment on in time. EMS reports pt with audible wheezing upon their arrival and sats 89% on room air improved with high flow oxygen. Pt given one duoneb treatment with significant improvement. Pt reports no further SOB and that he feels at his baseline. He was recently discharged from the hospital on Tuesday with oral steroids which he states he is already currently taking. Denies any fever, cough or recent illness. . Historical: - Allergies: 06:08 No Known Allergies; jb4 - Home Meds: 06:08 Albuterol Nebulizer [Active]; amlodipine oral [Active]; Aspirin Oral [Active]; jb4 carvedilol oral [Active]; clopidogrel oral [Active]; fluticasone [Active]; Lasix Oral [Active]; Lisinopril Oral [Active]; - PMHx: 06:08 CHF; COPD; HTN; Hypertension; [place]; Myocardial infarction; jb4 - PSHx: 06:08 heart stent; Stented artery; jb4 - Immunization history:: Adult Immunizations unknown. ROS: 06:11 Constitutional: Negative for fever, chills, and weight loss, Eyes: Negative for injury, sd2 pain, redness, and discharge, Cardiovascular: Negative for chest pain, palpitations, and edema. 06:11 Abdomen/GI: Negative for abdominal pain, nausea, vomiting, diarrhea. MS/Extremity: Negative for injury and deformity, Skin: Negative for injury, rash, and discoloration, Neuro: Negative for headache, numbness and tingling. 06:11 Respiratory: Positive for shortness of breath, wheezing, Negative for cough. Exam: 06:11 Constitutional: This is a well developed, well nourished patient who is awake, alert, sd2 and in no acute distress. Head/Face: Normocephalic, atraumatic. Eyes: EOMI, normal conjunctiva bilaterally Chest/axilla: Normal chest wall appearance and motion. Nontender with no deformity. Cardiovascular: Regular rate and rhythm with a normal S1 and S2. No gallops, murmurs, or rubs. 2+ distal pulses. Respiratory: Lungs have equal breath sounds bilaterally, clear to auscultation and percussion. No rales, rhonchi or wheezes noted. No increased work of breathing, no retractions or nasal flaring. Abdomen/GI: Soft, non-tender, with normal bowel sounds. No guarding or rebound. No evidence of tenderness throughout. Skin: Warm, dry with normal turgor. Normal color with no rashes, no lesions, and no evidence of cellulitis. MS/ Extremity: Pulses equal, no cyanosis. Neurovascular intact. Full, normal range of motion. Ambulatory without difficulty. Psych: Awake, alert, with orientation to person, place and time. Behavior, mood, and affect are within normal limits. 06:39 ECG was reviewed by the Attending Physician. NSR, rate 74, occasional PVCs present, sd2 nonspecific ST-T wave changes unchanged from prior EKG on 05/11/22 Vital Signs: 06:06 BP 136 / 67; Pulse 87; Resp 24 S; Temp 97.7(O); Pulse Ox 96% on R/A; Pain 0/10; as6 06:50 BP 136 / 67; Pulse 89; Resp 19 S; Pulse Ox 96% on R/A; as6 MDM: 06:09 Patient medically screened. sd2 06:11 Differential Diagnosis Differential diagnosis includes but is not limited to: ACS, sd2 DVT/PE, pneumothorax, dissection, musculoskeletal, anxiety, anemia, electrolyte abnormality, pneumonia, CHF, COPD among others. Data reviewed: vital signs, nurses notes, EMS record, EKG. Counseling: I had a detailed discussion with the patient and/or guardian regarding: the historical points, exam findings, and any diagnostic results supporting the discharge/admit diagnosis, the need for outpatient follow up, to return to the emergency department if symptoms worsen or persist or if there are any questions or concerns that arise at home. ED course: Pt upon arrival to ER has sats 96-98% on room air. He has no wheezing on auscultation, no hypoxia, no tachypnea or retractions and no increased work of breathing and states symptoms resolved. Denies chest pain or recent infectious symptoms. Offered labs and further workup but after a discussion and shared decision making, the patient has declined and would like to be discharged home instead. Agrees to Solumedrol IM and will continue oral steroids and nebulizer treatments at home. Verbalizes understanding of discharge plan and strict return precautions. . 06:39 ED course: . sd2 05/17 06:09 Order name: EKG - Nurse/Tech; Complete Time: 06:42 sd2 Administered Medications: 06:24 Drug: SOLU-Medrol (methylPREDNISolone sodium succinate) 125 mg Route: IM; Site: right as6 ventrogluteal; 06:53 Follow up: Response: No adverse reaction as6 Disposition Summary: 05/17/22 06:42 Discharge Ordered Location: Home sd2 Problem: an acute exacerbation sd2 Symptoms: are resolved sd2 Condition: Stable sd2 Diagnosis - COPD/ Chronic obstructive pulmonary disease with (acute) exacerbation sd2 Followup: sd2 - With: Private Physician - When: 2 - 3 days - Reason: Recheck today's complaints, Continuance of care, Re-evaluation by your physician Discharge Instructions: - Discharge Summary Sheet sd2 - Chronic Obstructive Pulmonary Disease Exacerbation sd2 Forms: - Medication Reconciliation Form sd2 - Thank You Letter sd2 - Antibiotic Education sd2 - Prescription Opioid Use sd2 Signatures: Harman Nicholas RN RN jb4 Billy Solares RN RN as6 Windy Beal MD MD sd2
--- NOTE | 2022-05-17 06:42 | ER ---
Nurse's Notes [facility] Name: Gabo Chow Sr Age: 71 yrs Sex: Male : 1950 Arrival Date: 05/17/2022 Time: 06:06 Bed 5 Private MD: Diagnosis: COPD/ Chronic obstructive pulmonary disease with (acute) exacerbation Presentation: 05/17 06:07 Chief complaint: EMS states: called out for shortness of breath. on scene pt was having as6 labored breathing and wheezing. EMS have A\T\A x1. on arrival to ER pt is not short of breath and has no more complaints of SOB. Coronavirus screen: At this time, the client does not indicate any symptoms associated with coronavirus-19. Ebola Screen: No symptoms or risks identified at this time. Initial Sepsis Screen: Does the patient meet any 2 criteria? No. Patient's initial sepsis screen is negative. Does the patient have a suspected source of infection? No. Patient's initial sepsis screen is negative. Risk Assessment: Do you want to hurt yourself or someone else? Patient reports no desire to harm self or others. Onset of symptoms was May 17, 2022. 06:07 Acuity: ALLI 3 as6 06:07 Method Of Arrival: EMS: [facility] as6 Historical: - Allergies: 06:08 No Known Allergies; jb4 - Home Meds: 06:08 Albuterol Nebulizer [Active]; amlodipine oral [Active]; Aspirin Oral [Active]; jb4 carvedilol oral [Active]; clopidogrel oral [Active]; fluticasone [Active]; Lasix Oral [Active]; Lisinopril Oral [Active]; - PMHx: 06:08 CHF; COPD; HTN; Hypertension; IA; Myocardial infarction; jb4 - PSHx: 06:08 heart stent; Stented artery; jb4 - Immunization history:: Adult Immunizations unknown. Screenin:50 Abuse screen: Denies threats or abuse. Denies injuries from another. Nutritional as6 screening: No deficits noted. Tuberculosis screening: No symptoms or risk factors identified. Fall Risk None identified. Assessment: 05:50 General: Appears in no apparent distress. Behavior is calm, cooperative. Pain: Denies as6 pain. Respiratory: Respiratory effort is even, unlabored, Breath sounds are clear bilaterally. Vital Signs: 06:06 BP 136 / 67; Pulse 87; Resp 24 S; Temp 97.7(O); Pulse Ox 96% on R/A; Pain 0/10; as6 06:50 BP 136 / 67; Pulse 89; Resp 19 S; Pulse Ox 96% on R/A; as6 ED Course: 06:06 Patient arrived in ED. as6 06:07 Billy Solares RN is Primary Nurse. as6 06:08 Windy Beal MD is Attending Physician. sd2 06:09 Triage completed. as6 06:09 Arm band placed on. as6 06:09 Placed in gown. Bed in low position. Call light in reach. Side rails up X2. Client as6 placed on continuous cardiac and pulse oximetry monitoring. NIBP monitoring applied. 06:51 No provider procedures requiring assistance completed. Patient did not have IV access as6 during this emergency room visit. Administered Medications: 06:24 Drug: SOLU-Medrol (methylPREDNISolone sodium succinate) 125 mg Route: IM; Site: right as6 ventrogluteal; 06:53 Follow up: Response: No adverse reaction as6 Medication: 06:50 VIS not applicable for this client. as6 Outcome: 06:42 Discharge ordered by . sd2 06:51 Discharged to home ambulatory. as6 06:51 Condition: stable 06:51 Discharge instructions given to patient, Instructed on discharge instructions, follow up and referral plans. Demonstrated understanding of instructions, follow-up care. 06:53 Patient left the ED. as6 Signatures: Harman Nicholas RN RN jb4 Billy Solares RN RN as6 Windy Beal MD MD sd2
[2022-05-17 06:57] VITALS: BP 136/67; TEMP 97.7; O2SAT 96
--- NOTE | 2022-05-17 15:28 | EKG ---
Test Date: 2022-05-17 Test Time: 06:33:35 Clinical Advisor: MOHINDER MEASUREMENT RESULTS: Intervals: Rate: 74 GA: 156 QRSD: 140 QT: 420 QTc: 466 [place]: P: 81 GA: 156 QRS: 6 T: 196 INTERPRETIVE STATEMENTS: Sinus rhythm with occasional premature ventricular complexes Nonspecific intraventricular block T wave abnormality, consider inferolateral ischemia Abnormal ECG Compared to ECG 05/11/2022 23:35:42 Atrial premature complex(es) no longer present Myocardial infarct finding no longer present T-wave abnormality still present Possible ischemia still present Electronically Signed On 05-17-22 15:27:17 TRANSPORT CONDUCTOR by Jerardo Hussein
== END 2022-05-17 06:53 | disposition home or self-care (01) ==
LOC: ER 06:04
DX: J44.1 Chronic obstructive pulmonary disease with (acute) exacerbation (principal); I10 Essential (primary) hypertension; I50.9 Heart failure, unspecified; Z95.818 Presence of other cardiac implants and grafts
CPT/HCPCS: 93005; 96372; 99283; J2930

== ENCOUNTER 2022-05-31 22:17 | Inpatient (IN) | payer MEDICARE ==
[2022-05-31] MEDS ORDERED: ALBUTEROL 2.5 MG/3 ML NEB SOL ONE (23:08)
[2022-05-31] MEDS ORDERED: METHYLPREDNISOLONE 125 MG INJ ONE (23:08)
[2022-05-31] MEDS ORDERED: IPRATROPIUM BROM 0.5MG/2.5ML ONE (23:08)
[2022-05-31 23:15] LABS: Absolute Lymphocytes (CBC) 1.2 K/uL (0.7-4.9); Hematocrit 38.7 % (39.6-49.0); Lymphocytes % 11.2 % (15.3-44.8); MCV 88.5 fL (80-100); MPV 8.9 fL (7.6-11.3); RBC Red Blood Cell Count 4.37 M/uL (4.33-5.43)
[2022-05-31 23:29] LABS: Bilirubin Total 0.6 mg/dL (0.2-1.0); Protein, Total 6.8 g/dL (6.4-8.2)
[2022-05-31 23:35] LABS: Troponin High Sensitivity 167.2 pg/mL (<58.9)
--- OUTSIDE RECORDS SUMMARY | 2022-06-01 00:11 | XMS REPORT | Continuity of Care Document ---
:1950 Author Organization [facility] t Address [address] [place] [address] Care Team Providers Name Role Phone Pcp, Patient Does Not Have A Primary Care Physician +[id number] Doctor Unassigned, [place] Attending Clinician Unavailable Arlene Yi Attending Clinician Nyasia Wang RN Attending Clinician Unavailable FELICIA GOSS Attending Clinician Unavailable Felicia Spencer Attending Clinician Osbaldo Aguiar MD Attending Clinician Corwin Walden DO Attending Clinician Jagdeep Fagan MD Attending Clinician Carmelo Hodgson MD Attending Clinician CARMELO HODGSON Attending Clinician Unavailable Logan Liu MD Attending Clinician TONY MILLER Attending Clinician Unavailable Angel LESO, [place] Hol[place] Attending Clinician Unavailable Jen Alonzo MD Attending Clinician Juventino Smiht MD Attending Clinician Rickie Cannon MD Attending Clinician RICKIE CANNON Attending Clinician Unavailable HARDEEP LAU [...] Date S ouraiden [employer] [id number] 2020 (MEDICARE 00:00:00 REPLACEMENT HMO) [employer] MGD [id number] 2020 MCR 00:00:00 Problems Condition Condition Condition Status Onset Resolution Last Treating Co mments Source Name Details Category Date Date Treatment Clinician Date Dyspnea, Dyspnea, Disease Active Unive rs unspecifie unspecifie 8-21 it y of d type d type 00:00: [place] 00 Medical Branch 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 Active 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: [place] congestive congestive 00 Me dical heart heart Branch failure failure Hyperkalem Hyperkalem Disease Active U nivers ia ia 8-21 ity of 00:00: [place] 00 Medical Branch 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 [place] Tachycardi Tachycardi Disease Active U nivers a a 8-21 ity of 00:00: [place] 00 Medical Branch Hypertensi Hypertensi Disease Active [facility]: [facility] south 00 Center Acute on Acute on [...] Medical 00 Center Acute Acute Disease Active 2022-[address] [facility] respirator respirator 5-15 [facility] y failure y failure 00:00: Medi south with with 00 Center hypercapni hypercapni a a Athscl Athscl Problem Active [facility] heart 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/o ang [...] Active Univers ALLERGIE Class ity of S [facility] NO KNOWN Allergy Active [facility] ALLERGIE S Social History Social Habit Start Date Stop Date Quantity Comments Source History [facility] Food 2022-02-22 2022-02-22 1 Univers ity of Worry 00:00:00 00:00:00 [facility] Branch History [facility] Food 2022-02-22 2022-02-22 1 Univers ity of Scarcity 00:00:00 00:00:00 [facility] Branch History [facility] 2022-02-22 2022-02-22 2 University o f Transport Med 00:00:00 00:00:00 [facility] Branch History [facility] 2022-02-22 2022-02-22 2 University o f Transport Non-Med 00:00:00 00:00:00 [facility] Exposure to 2022-02-04 2022-02-14 Not sure University of SARS-CoV-2 (event) 00:00:00 14:51:00 [facility] Cigarettes smoked 2022-02-14 2022-02-14 Univers ity of current (pack per 00:00:00 00:00:00 [facility] ) - Reported Branch Cigarette 2022-02-14 2022-02-14 University of pack-years 00:00:00 00:00:00 [facility] Tobacco use and 2021-11-10 2021-11-[address] [facility] exposure 00:00:00 00:00:00 [facility] Alcohol intake 2021-11-10 2021-11-10 Ex-drinker [facility] es 00:00:00 00:00:00 (finding) Medical [place] History of tobacco 2021-10-25 Passive smoker Un iversity of use 00:00:00 [facility] Sex Ass[birth year] At [birth year] ALEXEI Vilchis 00:00:00 00:00:00 [facility] Center Smoking Status Start Date Stop Date Source Smokes tobacco daily [facility] (finding) Ex-smoker 2022-02-14 00:00:00 2022-02-14 00:00:00 Universi ty [facility] [place] [facility] Medications Ordered Filled Start Stop Current Ordering Indication Dosage Frequency Signature Comments Components Source Medication Medication Date Date Medication? Clinician (SIG) Name Name azithromyci Yes [id number] 500mg Take 1 Univers n 500 mg 8-27 tablet by ity of tablet 00:00: mouth in [place] the Medical morning. Branch furosemide Yes [id number] 40mg Take 1 Univers 40 mg 8-27 tablet by ity of tablet 00:00: mouth in [place] the Medical morning. Branch azithromyci Yes [id number] 500mg Take 1 Univers n 500 mg 8-27 tablet by ity of tablet 00:00: mouth in [place] the Medical morning. Branch furosemide Yes [id number] 40mg Take 1 Univers 40 mg 8-27 tablet by ity of tablet 00:00: mouth in [place] the Medical morning. Branch azithromyci 0 Yes [id number] 500mg Take 1 Univers n 500 mg 8-27 tablet by ity of tablet 00:00: mouth in [place] the Medical morning. Branch furosemide 2021-0 Yes [id number] 40mg Take 1 Univers 40 mg 8-27 tablet by ity of tablet 00:00: mouth in [place] the Medical morning. Branch azithromyci 0 Yes [id number] 500mg Take 1 Univers n 500 mg 8-27 tablet by ity of tablet 00:00: mouth in [place] the Medical morning. Branch furosemide 2021-0 Yes [id number] 40mg Take 1 Univers 40 mg 8-27 tablet by ity of tablet 00:00: mouth in [place] 00 the Medical morning. Branch azithromyci 2021-0 Yes [id number] 500mg Take 1 Univers n 500 mg 8-27 tablet by ity of tablet 00:00: mouth in [place] 00 the Medical morning. Branch furosemide 2021-0 Yes [id number] 40mg Take 1 Univers 40 mg 8-27 tablet by ity of tablet 00:00: mouth in [place] 00 the Medical morning. Branch azithromyci 2021-0 Yes [id number] 500mg Take 1 Univers n 500 mg 8-27 tablet by ity of tablet 00:00: mouth in [place] 00 the Medical morning. Branch furosemide 2021-0 Yes [id number] 40mg Take 1 Univers 40 mg 8-27 tablet by ity of tablet 00:00: mouth in [place] 00 the Medical morning. Branch azithromyci 2021-0 Yes [id number] 500mg Take 1 Univers n 500 mg 8-27 tablet by ity of tablet 00:00: mouth in [place] 00 the Medical morning. Branch furosemide 2021-0 Yes [id number] 40mg Take 1 Univers 40 mg 8-27 tablet by ity of tablet 00:00: mouth in [place] 00 the Medical morning. Branch aspirin 81 2021- No [id number] 81mg Take 1 Univers mg chewable 8-03-23 tablet by it y of tablet 00:00: 04:59 mouth in [place] 00 :00 the Medical morning Branch for 30 days. clopidogreL 2021-2021- No [id number] 75mg Take 1 Univers 75 mg 8-03-23 tablet by ity of tablet 00:00: 04:59 mouth in [place] 00 :00 the Medical morning Branch for 30 days. Fluticasone 2021-0 2021- No [id number] 1{puff} Inhale 1 Univers -Salmeterol 8-23 03- Puff every i ty of 100-50 00:00: 04:59 12 [place] mcg/dose 00 :00 (twelve) Medical inhalation hours for Bran ch disk 30 days. rosuvastati 2021-2021- No [id number] 20mg Take 1 Univers n 20 mg 8-03-23 tablet by ity of tablet 00:00: 04:59 mouth at [place] 00 :00 bedtime Medical for 30 Branch days. aspirin 81 2021-0 2- No [id number] 81mg Take 1 Univers mg chewable 8-27 - tablet by it y of tablet 00:00: 04:59 mouth in [place] 00 :00 the Medical morning Branch for 30 days. clopidogreL 2022021- No [id number] 75mg Take 1 Univers 75 mg -03-23 tablet by ity of tablet 00:00: 04:59 mouth in [place] 00 :00 the Medical morning Branch for 30 days. Fluticasone 2021- No [id number] 1{puff} Inhale 1 Univers -Salmeterol -03-23 Puff every i ty of 100-50 00:00: 04:59 12 [place] mcg/dose 00 :00 (twelve) Medical inhalation hours for Bran ch disk 30 days. rosuvastati 2021- No [id number] 20mg Take 1 Univers n 20 mg 02-20 tablet by ity of tablet 00:00: 04:59 mouth at [place] 00 :00 bedtime Medical for 30 Branch days. aspirin 81 2021- No [id number] 81mg Take 1 Univers mg chewable 02-20 tablet by it y of tablet 00:00: 04:59 mouth in [place] 00 :00 the Medical morning Branch for 30 days. clopidogreL 2021- No [id number] 75mg Take 1 Univers 75 mg -03-23 tablet by ity of tablet 00:00: 04:59 mouth in [place] 00 :00 the Medical morning Branch for 30 days. Fluticasone 2021- No [id number] 1{puff} Inhale 1 Univers -Salmeterol 02-20 Puff every i ty of 100-50 00:00: 04:59 12 [place] mcg/dose 00 :00 (twelve) Medical inhalation hours for Bran ch disk 30 days. rosuvastati 2021- No [id number] 20mg Take 1 Univers n 20 mg 02-20 tablet by ity of tablet 00:00: 04:59 mouth at [place] 00 :00 bedtime Medical for 30 Branch days. aspirin 81 2021- No [id number] 81mg Take 1 Univers mg chewable -03-23 tablet by it y of tablet 00:00: 04:59 mouth in [place] 00 :00 the Medical morning Branch for 30 days. clopidogreL 2021- No [id number] 75mg Take 1 Univers 75 mg 8-03-23 tablet by ity of tablet 00:00: 04:59 mouth in [place] 00 :00 the Medical morning Branch for 30 days. Fluticasone 2021- No [id number] 1{puff} Inhale 1 Univers -Salmeterol -23 03- Puff every i ty of 100-50 00:00: 04:59 12 [place] mcg/dose 00 :00 (twelve) Medical inhalation hours for Bran ch disk 30 days. rosuvastati 2021- No [id number] 20mg Take 1 Univers n 20 mg 02-20 tablet by ity of tablet 00:00: 04:59 mouth at [place] 00 :00 bedtime Medical for 30 Branch days. aspirin 81 2021- No [id number] 81mg Take 1 Univers mg chewable 02-20 tablet by it y of tablet 00:00: 04:59 mouth in [place] 00 :00 the [facility] morning [place] for 30 days. clopidogreL 2021-2021- No [id number] 75mg Take 1 Univers 75 mg 02-20 tablet by ity of tablet 00:00: 04:59 mouth in [place] 00 :00 the [facility] for 30 days. Fluticasone 2021-2021- No [id number] 1{puff} Inhale 1 Univers -Salmeterol 02-20 Puff every i ty of 100-50 00:00: 04:59 12 [place] mcg/dose 00 :00 (twelve) Medical inhalation hours for Bran ch disk 30 days. rosuvastati 2021- No [id number] 20mg Take 1 Univers n 20 mg 02-20 tablet by ity of tablet 00:00: 04:59 mouth at [place] 00 :00 bedtime Medical for 30 Branch days. aspirin 81 2021- No [id number] 81mg Take 1 Univers mg chewable 02-20 tablet by it y of tablet 00:00: 04:59 mouth in [place] 00 :00 the [facility] morning [place] for 30 days. clopidogreL 2021-2021- No [id number] 75mg Take 1 Univers 75 mg -03-23 tablet by ity of tablet 00:00: 04:59 mouth in [place] 00 :00 the [facility] morning Branch for 30 days. Fluticasone 2021-2021- No [id number] 1{puff} Inhale 1 Univers -Salmeterol 02-20 Puff every i ty of 100-50 00:00: 04:59 12 [place] mcg/dose 00 :00 (twelve) Medical inhalation hours for Bran ch disk 30 days. rosuvastati No [id number] 20mg Take 1 Univers n 20 mg 02-20 tablet by ity of tablet 00:00: 04:59 mouth at [place] 00 :00 bedtime Medical for 30 Branch days. azithromyci No 500mg 500 mg, U nivers n 02-19 Oral, ity of (ZITHROMAX) 15:00: 23:44 DAILY, 5 [place] tablet 500 00 :08 doses, Medical mg First dose Branch on Tue02/19/22 at 1000, Last dose on Tue02/23/22 at 0900, MAKENNA
Re ason for Anti-Infec tive: Empiric Therapy for Suspected Infection< br>Empiric Therapy Site: Respirator y
Durat ion of therapy: 5 days azithromyci No 500mg 500 mg, U nivers n 02-19 Oral, ity of (ZITHROMAX) 15:00: 23:44 DAILY, 5 [place] tablet 500 00 :08 doses, Medical mg First dose Branch on Tue02/19/22 at 1000, Last dose on Tue02/23/22 at 0900, MAKENNA
Re ason for Anti-Infec tive: Empiric Therapy for Suspected Infection< br>Empiric Therapy Site: Respirator y
Durat ion of therapy: 5 days clopidogreL No 75mg 75 mg, Uni vers (PLAVIX) 75 02-19 Oral, ity of mg tablet 14:00: 23:44 DAILY, [place] 75 mg 00 :08 First dose Medical on Tue Branch 02/19/22 at 0900, Until Discontinu ed, Routine clopidogreL No 75mg 75 mg, Uni vers (PLAVIX) 75 02-19 Oral, ity of mg tablet 14:00: 23:44 DAILY, [place] 75 mg 00 :08 First dose Medical on Tue02/19/22 at 0900, Until Discontinu ed, Routine lisinopriL 2021-0 2021- No 10mg 10 mg, [facility] ers (PRINIVIL,Z 02-19 Oral, QHS, i ty of ESTRIL) 02:00: 23:44 First dose [place] tablet 10 00 :08 on [place] Medical mg 02/18/22 at Branch 2100, Until Discontinu ed, Routine lisinopriL 2021-0 2021- No 10mg 10 mg, [facility] ers (PRINIVIL,Z 02-19 Oral, QHS, i ty of ESTRIL) 02:00: 23:44 First dose [place] tablet 10 00 :08 on [place] Medical mg 02/18/22 at Branch 2100, Until Discontinu ed, Routine methylPREDN 2021-2021- No 40mg 40 mg, Uni vers ISolone sod 02-18 Intravenou i ty of succ 16:30: 23:44 s, Q12H, [place] (SOLU-MEDRO 00 :08 First dose Me dical L (PF)) on [place] Branch injection 02/18/22 at 40 mg 1130, Until Discontinu ed, 1 mL methylPREDN 2021-0 2021- No 40mg 40 mg, Uni vers ISolone sod 02-18 Intravenou i ty of succ 16:30: 23:44 s, Q12H, [place] (SOLU-MEDRO 00 :08 First dose Me dical L (PF)) on [place] Branch injection 02/18/22 at 40 mg 1130, Until Discontinu ed, 1 mL Fluticasone 2021-0 2021- No 1{puff} 1 Puff, Univers -Salmeterol 02-18 Inhalation i ty of (ADVAIR) 15:30: 23:44 , Q12H, [place] 100-50 00 :08 First dose Medical mcg/dose on [place] Branch inhalation 02/18/22 at disk 1 Puff 1030, Until Discontinu ed, Routine Fluticasone 2021-0 2021- No 1{puff} 1 Puff, Univers -Salmeterol 02-18 Inhalation i ty of (ADVAIR) 15:30: 23:44 , Q12H, [place] 100-50 00 :08 First dose Medical mcg/dose on [place] Branch inhalation 02/18/22 at disk 1 Puff 1030, Until Discontinu ed, Routine heparin 2021- No 5000U 5,000 Univers (porcine) 02-18 Units, ity of injection 01:00: 23:44 [place]cut[place]o [place] 5,000 Units 00 :08 us, BID, Medi south First dose Branch on Tue02/17/22 at 1999, Until Discontinu ed, Routine heparin 2021- No 5000U 5,000 Univers (porcine) 02-18 Units, ity of injection 01:00: 23:44 Subcutaneo [place] 5,000 Units 00 :08 us, BID, Medi south First dose Branch on Tue02/17/22 at 2000, Until Discontinu ed, Routine iohexol 2021- No ONCE INTRA Uni vers (OMNIPAQUE 02-17 PROCEDURE, it y of 300-100 mL) 15:20: 15:50 [place] injection 00 :46 on Tue Medical 02/17/22 at Branch 1020, Until Tue02/17/22 at 1050, Routine, CV Intraproce dure iohexol 2021- No ONCE INTRA Uni vers (OMNIPAQUE 02-17 PROCEDURE, it y of 300-100 mL) 15:20: 15:50 Starting [place] injection 00 :46 on Tue Medical 02/17/22 at Branch 1020, Until Tue02/17/22 at 1050, Routine, CV Intraproce dure lidocaine 2021- No ONCE INTRA U nivers 1% (PF) 02-17 PROCEDURE, ity o f (XYLOCAINE) 15:04: 15:48 Starting [place] injection 06 :15 on Tue Medical 02/17/22 at Branch 1004, Until Tue02/17/22 at 1048, Routine, CV Intraproce dure lidocaine 2021- No ONCE INTRA U nivers 1% (PF) 02-17 PROCEDURE, ity o f (XYLOCAINE) 15:04: 15:48 Starting [place] injection 06 :15 on Tue Medical 02/17/22 at Branch 1004, Until Tue02/17/22 at 1048, Routine, CV Intraproce dure midazolam 2021- No ONCE INTRA U nivers (VERSED) 02-17 PROCEDURE, ity of injection 14:55: 15:48 Starting [place] as 37 :15 on Tue02/17/22 at Branch 09, Until Tue02/17/22 at 104, Routine, CV Intraproce dure midazolam 2021- No ONCE INTRA U nivers (VERSED) 02-17 PROCEDURE, ity of injection 14:55: 15:48 Starting [place] as 37 :15 on Tue02/17/22 at Branch 09, Until Tue02/17/22 at 1048, Routine, CV Intraproce dure FENTanyl PF 2021- No ONCE INTRA Univers (SUBLIMAZE 02-17 PROCEDURE, it y of (PF)) 14:55: 15:48 Starting [place] injection 15 :15 on Tue02/17/22 at Branch 09, Until Tue02/17/22 at 104, Routine, CV Intraproce dure FENTanyl PF 2021- No ONCE INTRA Univers (SUBLIMAZE 02-17 PROCEDURE, it y of (PF)) 14:55: 15:48 Starting [place] injection 15 :15 on Tue02/17/22 at Branch 09, Until Tue02/17/22 at 1048, Routine, CV Intraproce dure rosuvastati 2021- No 20mg 20 mg, Uni vers n (CRESTOR) 02-17 Oral, QHS, i ty of tablet 20 02:00: 23:44 First dose [place] mg 00 :08 (after Medical last Branch reorder) on Tue02/16/22 at 2100, Until Discontinu ed, Routine rosuvastati 2021- No 20mg 20 mg, Uni vers n (CRESTOR) 02-17 Oral, QHS, i ty of tablet 20 02:00: 23:44 First dose [place] mg 00 :08 (after Medical last Branch reorder) on Tue02/16/22 at 2100, Until Discontinu ed, Routine metoprolol 2021- No 25mg 25 mg, Univ ers succinate 02-16 Oral, BID, ity of XL (TOPROL 15:45: 23:44 First dose [place] XL) tablet 00 :08 on Tue Medical 25 mg 02/16/22 at Branch 1045, Until Discontinu ed, Routine metoprolol No 25mg 25 mg, Univ ers succinate 02-16 Oral, BID, ity of XL (TOPROL 15:45: 23:44 First dose [place] XL) tablet 00 :08 on Tue Medical 25 mg 02/16/22 at Branch 1045, Until Discontinu ed, Routine aspirin 2021- No 81mg 81 mg, Univers chewable 02-15 Oral, ity of tablet 81 14:00: 23:44 DAILY, [place] mg 00 :08 First dose Medical on [facility] 02/15/22 at 0900, Until Discontinu ed, Routine aspirin 2021- No 81mg 81 mg, Univers chewable 02-15 Oral, ity of tablet 81 14:00: 23:44 DAILY, [place] mg 00 :08 First dose Medical on [facility] 02/15/22 at 0900, Until Discontinu ed, Routine Sliding Subcutaneo Uni vers Scale 02-15 us, AC+HS, ity of Insulin-Reg 02:00: 23:44 First dose [place] ular + Fsbg 00 :08 on [facility] l Testing 02/14/22 at Branch 2100, Until Discontinu ed, Routine Sliding No Subcutaneo Uni vers Scale 02-15 us, AC+HS, ity of Insulin-Reg 02:00: 23:44 First dose [place] ular + Fsbg 00 :08 on [facility] Medica l Testing 02/14/22 at Branch 2100, Until Discontinu ed, Routine glucagon No 1mg 1 mg, Univers (GLUCAGEN 02-14 Intramuscu ity of DIAGNOSTIC 23:37: 23:44 lar, PRN, [place] KIT) 33 :08 Starting Medical injection 1 on Sun Branch mg 02/14/22 at 1837, Until 02/20/22 at 1844, MAKENNA, Blood Glucose < or = 70 mg/dL and patient is unable to swallow or has mental changes. dextrose 50 2021- No 25mL 25 mL, Uni vers % in water 02-14 Slow IV ity o f (D50W) 23:37: 23:44 Push, PRN, [place] injection 33 :08 Starting Medica l 25 mL on [place] Branch 02/14/22 at 1837, Until 02/20/22 at 1844, MAKENNA, Blood Glucose < or = 70 mg/dL and patient is unable to swallow or has mental status changes. glucagon 2021- No 1mg 1 mg, Univers (GLUCAGEN 02-14 Intramuscu ity of DIAGNOSTIC 23:37: 23:44 lar, PRN, [place] KIT) 33 :08 Starting Medical injection 1 on [place] Branch mg 02/14/22 at 1837, Until 02/20/22 at 1844, MAKENNA, Blood Glucose < or = 70 mg/dL and patient is unable to swallow or has mental changes. dextrose 50 2021- No 25mL 25 mL, Uni vers % in water 02-14 Slow IV ity o f (D50W) 23:37: 23:44 Push, PRN, [place] injection 33 :08 Starting Medica l 25 mL on [place] Branch 02/14/22 at 1837, Until 02/20/22 at 1844, MAKENNA, Blood Glucose < or = 70 mg/dL and patient is unable to swallow or has mental status changes. ipratropium 2021- No 3mL 3 mL, Univ ers -albuteroL 02-14 Inhalation it y of (DUONEB) 23:22: 23:44 , Q4HPRN, [place] 0.5 mg-3 44 :08 Starting Medical mg(2.5 mg on [place] Branch base)/3 mL 02/14/22 at nebulizer 1822, solution 3 Until Sat mL 02/20/22 at 1844, Routine, Wheezing ipratropium 2021- No 3mL 3 mL, Univ ers -albuteroL 02-14 Inhalation it y of (DUONEB) 23:22: 23:44 , Q4HPRN, [place] 0.5 mg-3 44 :08 Starting Medical mg(2.5 mg on [place] Branch base)/3 mL 02/14/22 at nebulizer 1822, solution 3 Until Sat mL 02/20/22 at 1844, Routine, Wheezing lactobacill 2022- No 1{capsu QD Take [address] [facility] us 5-20 05-20 le} capsule by [facility] rhamnosus, 00:00: 23:59 mouth Medic al GG, 00 :00 daily. [place] (CULTURELLE ) 10 billion cell capsule lactobacill 2022- No 1{capsu QD Take [address] [facility] us 5-20 05-20 le} capsule by [facility] rhamnosus, 00:00: 23:59 mouth Medic al GG, 00 :00 daily. [place] (CULTURELLE ) 10 billion cell capsule lactobacill 2022- No 1{capsu QD Take [address] [facility] us 5-20 05-20 le} capsule by [facility] rhamnosus, 00:00: 23:59 mouth Medic al GG, 00 :00 daily. [place] (CULTURELLE ) 10 billion cell capsule lactobacill 2022- No 1{capsu QD Take [address] [facility] us 5-20 05-20 le} capsule by [facility] rhamnosus, 00:00: 23:59 mouth Medic al GG, 00 :00 daily. [place] (CULTURELLE ) 10 billion cell capsule amLODIPine 2021- [...] mouth Center daily for 90 days. amLODIPine 2-0 2022- No 10mg QD Take [address] [facility] (NORVASC) 5-20 08-18 tablet (10 Sally es 10 MG 00:00: 23:59 mg total) Medica l tablet 00 :00 by mouth Center daily for 90 days. aspirin 81 2-0 2022- No 81mg QD Take [address] [facility] MG chewable 5-20 08-18 tablet (81 L ukes tablet 00:00: 23:59 mg total) Medic al 00 :00 by mouth Center daily for 90 days. amLODIPine 2-0 2021- No 10mg QD Take [address] [facility] (NORVASC) 5-20 08-18 tablet (10 Sally es 10 MG 00:00: 23:59 mg total) Medica l tablet 00 :00 by mouth Center daily for 90 days. aspirin 81 2-0 2021- No 81mg QD Take [address] [facility] MG chewable 5-20 08-18 tablet (81 L ukes tablet 00:00: 23:59 mg total) Medic al 00 :00 by mouth Center daily for 90 days. lisinopriL 2-0 Yes 40mg QD Take [address] (PRINIVIL,Z 5-19 by mouth Luke [facility] ESTRIL) 40 20:45: daily. Medic al MG tablet 02 Center carvediloL 2021-0 Yes 6.25mg Take 6.[address] [address] (COREG) 5-19 mg by [facility] 6.25 MG 20:45: mouth 2 Medical tablet 02 (two) Center times daily with breakfast and dinner. lisinopriL 2022-0 Yes 40mg QD Take [address] (PRINIVIL,Z 5-19 by mouth Luke s ESTRIL) 40 20:45: daily. Medic al MG tablet 02 Center carvediloL 2-0 Yes 6.25mg Take 6.[address] (COREG) 5-19 mg by [facility] 6.25 MG 20:45: mouth 2 Medical tablet 02 (two) Center times daily with breakfast and dinner. lisinopriL 2022-0 Yes 40mg QD Take 40 mg C [...] 20:45: daily. Medic al MG tablet 02 [place] carvediloL Yes 6.25mg Take 6.[address] [...] daily. Medic al 36 :00 Center predniSONE 2021-0 2022- No 10mg Q.5D Take [address] [facility] (DELTASONE) 11-12 by mouth 2 L ukes 10 MG [...] 3mL Take [address] -albuteroL 11-1214 by LuStriped Sail (RolltechO-Easy-Point) 00:00: 23:59 nebulizati M edical 0.5 mg-3 00 :00 on every 6 Cente r mg(2.5 mg (six) base)/3 mL hours as nebulizer needed for solution Wheezing for up to 360 days. acetaminoph 2022- No 650mg Take [address] en 11-12-14 tablets [facility] (TYLENOL) 00:00: 23:59 (650 mg Medi south 325 MG 00 :00 total) by Center tablet mouth every 6 (six) hours as needed for up to 360 days. ipratropium 0 2022- No 3mL Take [address] -albuteroL 11-1214 by [facility] (RolltechO-Easy-Point) 00:00: 23:59 nebulizati M edical 0.5 mg-3 [...] for up to 360 days. ipratropium 2021-0 2022- No 3mL Take [address] -albuteroL 11-12 by [facility] (DUO-NEB) 00:00: 23:59 nebulizati M edical 0.5 mg-3 00 :00 on every 6 Cente r mg(2.5 mg (six) base)/3 mL hours as nebulizer needed for solution Wheezing for up to 360 days. acetaminoph 2021-2022- No 650mg Take [address] en 11-12 tablets [facility]Striped [facility]ail (TYLENOL) 00:00: 23:59 (650 mg Medi south 325 MG 00 :00 total) by Center tablet mouth every 6 (six) hours as needed for up to 360 days. ipratropium 2021-2022- No 3mL Take [address] -albuteroL 11-1214 by [facility]Striped [place] (DUO-NEB) 00:00: 23:59 nebulizati M edical 0.5 mg-3 00 :00 on every 6 Cente r mg(2.5 mg (six) base)/3 mL hours as nebulizer needed for solution Wheezing for up to 360 days. apixaban 2021-0 2021- No 5mg Q.5D Take [address] [facility] [address] (ELIQUIS) 5 5- 08-17 tablet (5 [facility] kes mg Tab 00:00: 23:59 mg total) Medic al tablet 00 :00 by mouth 2 Center (two) times daily for 90 days. apixaban 2021-0 2021- No 5mg Q.5D Take [address] [address] (ELIQUIS) 5 5- 08-17 tablet (5 [facility] kes mg Tab 00:00: 23:59 mg total) Medic al tablet 00 :00 by mouth 2 Center (two) times daily for 90 days. apixaban 2021-0 2021- No 5mg Q.5D Take [address] [facility] (ELIQUIS) 5 5- 08-17 tablet (5 [facility] kes mg Tab 00:00: 23:59 mg total) Medic al tablet 00 :00 by mouth 2 Center (two) times daily for 90 days. apixaban 2021-0 2022- No 5mg Q.5D Take [address] (ELIQUIS) 5 5-19 08-17 tablet (5 [facility] kes mg Tab 00:00: 23:59 mg total) Medic al tablet 00 :00 by mouth 2 Center (two) times daily for 90 days. bumetanide 2021- No 1mg Take [address] [facility] (BUMEX) 1 11-12-18 tablet (1 Luke s MG tablet 00:00: 23:59 mg total) Me dical 00 :00 by mouth 2 Center (two) times daily for 30 days. bumetanide 2021- No 1mg Take 1 [...] 2021- No Take [address] [facility] (DELTASONE) 5-12 11-31 tablets Luke s 10 MG 00:00: 23:59 (40 mg Medical tablet 00 :00 total) by Center mouth daily for 3 days, THEN 3 tablets (30 mg total) daily for 3 days, THEN 2 tablets (20 mg total) daily for 3 days, THEN 1 tablet (10 mg total) daily for 3 days. predniSONE 2021- No Take [address] [facility] (DELTASONE) 5- 05-31 tablets Luke s 10 MG 00:00: 23:59 (40 mg Medical tablet 00 :00 total) by Center mouth daily for 3 days, THEN 3 tablets (30 mg total) daily for 3 days, THEN 2 tablets (20 mg total) daily for 3 days, THEN 1 tablet (10 mg total) daily for 3 days. predniSONE 2021- No Take [address] [facility] [address] (DELTASONE) 11-12- tablets Luke s 10 MG 00:00: 23:59 [...] every 4 Medical (ROBITUSSIN 00 :00 (four) [place]) 10-100 hours as mg/5 mL needed for liquid up to 10 days. dextrometho 2021- No 5mL Take [address] [facility]- by mouth Sally es enesin 00:00: 23:59 every 4 Medical (ROBITUSSIN 00 :00 (four) [place] -) 10-100 hours as mg/5 mL needed for liquid up to 10 days. dextrometho 2021- No 5mL Take [address] [facility] 11-12 by mouth Sally es enesin 00:00: 23:59 every 4 Medical (ROBITUSSIN 00 :00 (four) [place] -) 10-100 hours as mg/5 mL needed for liquid up to 10 days. dextrometho 2021- No 5mL Take [address] [facility] [address] [facility] 11-12 by mouth Sally es enesin 00:00: 23:59 every 4 Medical (ROBITUSSIN 00 :00 (four) [place] -) 10-100 hours as mg/5 mL needed for liquid up to 10 days. amoxicillin 2021- No 1{tbl} Q.5D Take [address] -clavulanat 5-19 05-22 tablet by [facility] [employer] e 00:00: 23:59 mouth 2 Medical (AUGMENTIN) 00 :00 (two) Center 875-125 mg times per tablet daily for 3 days. amoxicillin 2021- No 1{tbl} Q.5D Take [address] -clavulanat 5-19 05-22 tablet by [facility] [employer] 00:00: 23:59 mouth 2 Medical (AUGMENTIN) 00 :00 (two) Center 875-125 mg times per tablet daily for 3 days. amoxicillin 2021- No 1{tbl} Q.5D Take [address] -clavulanat 5-19 05-22 tablet by [facility] [employer] 00:00: 23:59 mouth 2 Medical (AUGMENTIN) 00 :00 (two) Center 875-125 mg times per tablet daily for 3 days. amoxicillin 2021- No 1{tbl} Q.5D Take [address] -clavulanat 5-19 05-22 tablet by [employer] 00:00: 23:59 mouth 2 Medical (AUGMENTIN) 00 :00 (two) Center 875-125 mg times per tablet daily for 3 days. lisinopriL 2021-0 Yes [id number] 10mg Take 1 [facility] 10 mg 4-17 tablet by ity of tablet 00:00: mouth at [place] [address] bedtime. Medical Branch metoprolol 2021-0 Yes [id number] 25mg Take 1 Univers tartrate 25 4-17 tablet by ity of mg tablet 00:00: mouth 2 [place] [address] (two) Medical times Branch daily. lisinopriL 2021-0 Yes [id number] 10mg Take 1 [facility] 10 mg 4-17 tablet by ity of tablet 00:00: mouth at [place] [address] bedtime. Medical Branch metoprolol 2021-0 Yes [id number] 25mg Take 1 Univers tartrate 25 4-17 tablet by ity of mg tablet 00:00: mouth 2 [place] [address] ([facility]) Medical times Branch daily. lisinopriL 2021-0 Yes [id number] 10mg Take 1 Univers 10 mg 4-17 tablet by ity of tablet 00:00: mouth at [place] 00 bedtime. Medical Branch metoprolol Yes [id number] 25mg Take 1 Univers tartrate 25 4-17 tablet by ity of mg tablet 00:00: mouth 2 [place] (two) Medical times Branch daily. lisinopriL 2021-0 Yes [id number] 10mg Take 1 Univers 10 mg 4-17 tablet by ity of tablet 00:00: mouth at [place] [address] bedtime. Medical Branch metoprolol 0 Yes [id number] 25mg Take 1 Univers tartrate 25 4-17 tablet by ity of mg tablet 00:00: mouth 2 [place] (two) Medical times Branch daily. lisinopriL Yes [id number] 10mg Take 1 Univers 10 mg 4-17 tablet by ity of tablet 00:00: mouth at [place] [address] bedtime. Medical Branch metoprolol Yes [id number] 25mg Take 1 Univers tartrate 25 4-17 tablet by ity of mg tablet 00:00: mouth 2 [place] (two) Medical times Branch daily. lisinopriL 0 Yes [id number] 10mg Take 1 Univers 10 mg 4-17 tablet by ity of tablet 00:00: mouth at [place] [address] bedtime. Medical Branch metoprolol Yes [id number] 25mg Take 1 Univers tartrate 25 4-17 tablet by ity of mg tablet 00:00: mouth 2 [place] (two) Medical times Branch daily. lisinopriL Yes [id number] 10mg Take 1 Univers 10 mg 4-17 tablet by ity of tablet 00:00: mouth at [place] [address] bedtime. Medical Branch metoprolol Yes [id number] 25mg Take 1 Univers tartrate 25 4-17 tablet by ity of mg tablet 00:00: mouth 2 [place] (two) Medical times Branch daily. Spiriva Spiriva 2019-06 Yes SULEMA INHALE TWO [facility] Respimat Respimat 0-12 [place] (2) PUFFS [facility]ici 2.5 MCG/ACT 2.5 MCG/ACT [...] Time Observation Value Comments Source Systolic blood 2022-02-17 115 mm[Hg] [facility] pressure 14:38:59 [facility] Diastolic blood 2022-02-17 71 mm[Hg] [facility] pressure 14:38:59 [facility] Respiratory rate 2022-02-17 20 /min [facility] 14:38:59 [facility] Oxygen saturation 2022-02-17 100 /min [facility] Arterial blood 14:38:59 [facility] by Pulse oximetry [place] [facility] rate 2022-02-17 76 /min [facility] 11:00:00 [facility] Body temperature 2022-02-17 36.44 [facility] 09:00:00 [facility] Body height 2022-02-14 182.9 cm University of 22:40:00 [facility] Body weight 2022-02-14 83.6 kg University of 22:40:00 [facility] BMI 2022-02-14 25.00 kg/m2 University of 22:40:00 [facility] WEIGHT 2021-11-11 81.5 kg 04:18:00 HEIGHT 2021-11-10 [...] 2021-11-12 60 /min [facility] 19:40:00 [facility] Respiratory rate 2021-11-12 18 /min [facility] 19:40:00 [facility] Oxygen saturation 2021-11-12 99 /min [facility] in Arterial blood 19:40:00 Medical nter by Pulse oximetry Systolic blood 2021-11-12 137 mm[Hg] [facility] pressure 16:00:00 [facility] Diastolic blood 2021-11-12 83 mm[Hg] [facility] pressure 16:00:00 [facility] Body temperature 2021-11-[address] [facility] 16:00:00 [facility] Body weight 2021-11-[address] [facility] 04:18:00 [facility] BMI 2021-11-11 24.37 kg/m2 [facility] 04:18:00 [facility] Body height 2021-11-[address] [facility] 04:48:00 [facility] Systolic blood 2020-04-16 141 mm[Hg] Location: [facility]ERO[facility] pressure 07:34:00 Position: Sitting Diastolic blood 2020-04-16 60 mm[Hg] Location: ROMEROE; ID Physici ans pressure 07:34:00 Position: Sitting Weight [...] Systolic blood 2020-04-07 137 mm[Hg] Location: RUE; ID Physicia ns pressure 14:12:00 Position: Sitting Diastolic blood 2020-04-07 74 mm[Hg] Location: RUE; ID Physici ans pressure 14:12:00 Position: Sitting Body [...] Performed ASSIGNMENT OF BENEFITS 2022-03-31 22:21:39 Doctor Unassnakul [facility] AUTHORIZATION FOR RELEASE 2022-03-02 05:01:00 Doctor Cynthia, [facility] Name [facility] AUTHORIZATION FOR RELEASE 2022-02-26 05:01:00 Doctor Unassigned, [facility] Name Medical Branch AUTHORIZATION FOR RELEASE 2022-02-22 05:01:00 Doctor Cynthia, [facility] POCT GLUCOSE (AUTOMATED) 2022-02-20 18:39:00 Carmelo Hodgson [facility] POCT GLUCOSE (AUTOMATED) 2022-02-20 14:45:00 Carmelo Hodgson [facility] BASIC METABOLIC PANEL (NA, 2022-02-20 10:00:00 Arcelia Tellez [facility] K, CL, CO2, GLUCOSE, BUN, Medica l Branch CREATININE, CA) EMERGENCY SERVICES 2022-02-20 05:01:00 Doctor Unassigned, [facility] AGREEMENTS AND [place] [facility] AUTHORIZATIONS BASIC METABOLIC PANEL (NA, 2022-02-20 01:23:00 Juan Lott [facility] K, CL, CO2, GLUCOSE, BUN, Medica l Branch CREATININE, CA) POCT GLUCOSE (AUTOMATED) 2022-02-20 01:01:00 Corwin Walden [facility] POCT GLUCOSE (AUTOMATED) 2022-02-19 22:27:00 Corwin Walden [facility] BASIC METABOLIC PANEL (NA, 2022-02-19 18:07:00 Juan Lott [facility] K, CL, CO2, GLUCOSE, BUN, Medica l Branch CREATININE, CA) POCT GLUCOSE (AUTOMATED) 2022-02-19 16:22:00 Corwin Walden [facility] POCT GLUCOSE (AUTOMATED) 2022-02-19 13:14:00 Corwin Walden [facility] BASIC METABOLIC PANEL (NA, 2022-02-19 13:12:00 [facility], CO2, GLUCOSE, BUN, Medica l Branch CREATININE, CA) MAGNESIUM 2022-02-19 09:17:00 Ruth Kamara [facility] BASIC METABOLIC PANEL (NA, 2022-02-19 09:17:00 Asad [facility] K, CL, CO2, GLUCOSE, BUN, Medica l Branch CREATININE, CA) CBC WITHOUT DIFF 2022-02-19 09:17:00 Ruth Kamara [facility] POCT GLUCOSE (AUTOMATED) 2022-02-19 01:13:00 Corwin Walden [facility] POCT GLUCOSE (AUTOMATED) 2022-02-18 21:58:00 Corwin Walden [facility] PROCALCITONIN 2022-02-18 19:50:00 Kellie Puentes [facility] POCT GLUCOSE (AUTOMATED) 2022-02-18 17:30:00 Corwin Walden [facility] CT THORAX WO CONTRAST 2022-02-18 17:14:31 Kellie Puentes [facility] [place] [facility] POCT GLUCOSE (AUTOMATED) 2022-02-18 12:57:00 Corwin Walden [facility] BASIC METABOLIC PANEL (NA, 2022-02-18 08:43:00 Arcelia Tellez [facility] K, CL, CO2, GLUCOSE, BUN, Medica l Branch CREATININE, CA) CBC WITH DIFF 2022-02-18 08:43:00 Mike [facility] PROCALCITONIN 2022-02-18 08:43:00 Carmelo Hodgson [facility] POCT GLUCOSE (AUTOMATED) 2022-02-18 01:14:00 Corwin Walden [facility] POCT GLUCOSE (AUTOMATED) 2022-02-17 21:44:00 Corwin Walden [facility] CARDIAC CATHETERIZATION 2022-02-17 15:20:00 Alexa [facility] CARDIAC CATHETERIZATION 2022-02-17 15:20:00 Liu [facility] CATH PROCEDURE LOG 2022-02-17 15:04:23 Alexa [facility] POCT GLUCOSE (AUTOMATED) 2022-02-17 12:58:00 Corwin Walden [facility] ACTIVATED PARTIAL THRMPLAS 2022-02-17 12:53:00 Jagdeep Fagan [facility] MAGNESIUM 2022-02-17 09:01:00 Hao Contreras [facility] BASIC METABOLIC PANEL (NA, 2022-02-17 09:01:00 Hao Contreras [facility] K, CL, CO2, GLUCOSE, BUN, Medica l Branch CREATININE, CA) CBC WITH DIFF 2022-02-17 09:01:00 Mike [facility] POCT GLUCOSE (AUTOMATED) 2022-02-17 01:00:00 Corwin Walden [facility] BASIC METABOLIC PANEL (NA, 2022-02-17 00:57:00 Juan Lott [facility] K, CL, CO2, GLUCOSE, BUN, Medica l Branch CREATININE, CA) ACTIVATED PARTIAL THRMPLAS 2022-02-17 00:57:00 [facility] ([facility]OMATED) 2022-02-16 21:27:00 Corwin Walden [facility] TROPONIN I 2022-02-16 18:09:00 Michael Lott [facility] BASIC METABOLIC PANEL (NA, 2022-02-16 18:09:00 Juan Lott [facility] K, CL, CO2, GLUCOSE, BUN, Medica l Branch CREATININE, CA) POCT GLUCOSE (AUTOMATED) 2022-02-16 16:33:00 Corwin Walden [facility] MISCELLANEOUS CULTURE 2022-02-16 13:52:00 Michael Lott [facility] ACTIVATED PARTIAL THRMPLAS 2022-02-16 13:18:00 Osbaldo Aguiar [facility] POCT GLUCOSE (AUTOMATED) 2022-02-16 13:15:00 Corwin Walden [facility] PHOSPHORUS 2022-02-16 06:37:00 Michael Lott [facility] MAGNESIUM 2022-02-16 06:37:00 Michael Lott [facility] TROPONIN I 2022-02-16 06:37:00 Michael Lott [facility] BASIC METABOLIC PANEL (NA, 2022-02-16 06:37:00 Brandie Mckeon [facility] K, CL, CO2, GLUCOSE, BUN, Medica l Branch CREATININE, CA) CBC WITH DIFF 2022-02-16 06:37:00 Brandie Mckeon o f [facility] ACTIVATED PARTIAL THRMPLAS 2022-02-16 06:37:00 Brandie Mckeon [facility] POCT GLUCOSE (AUTOMATED) 2022-02-16 01:06:00 Corwin Walden [facility] PHOSPHORUS 2022-02-15 23:35:00 Richard Lottradha [facility] MAGNESIUM 2022-02-15 23:35:00 [facility] TROPONIN I 2022-02-15 23:35:00 Jagdeep Fagan [facility] BASIC METABOLIC PANEL (NA, 2022-02-15 23:35:00 Corwin Walden [facility] K, CL, CO2, GLUCOSE, BUN, Medica l Branch CREATININE, CA) ACTIVATED PARTIAL THRMPLAS 2022-02-15 23:35:00 Osbaldo Aguiar [facility] POCT GLUCOSE (AUTOMATED) 2022-02-15 23:07:00 Corwin Walden [facility] ACTIVATED PARTIAL THRMPLAS 2022-02-15 17:03:00 Juan Lott [facility] BLOOD CULTURE SCREEN 2022-02-15 16:58:00 [facility] 2022-02-15 16:58:00 [facility] 2022-02-15 16:58:00 [facility] TROPONIN I 2022-02-15 16:58:00 Kaylie [facility] BASIC METABOLIC PANEL (NA, 2022-02-15 16:58:00 Corwin Walden [facility] K, CL, CO2, GLUCOSE, BUN, Medica l Branch CREATININE, CA) POCT GLUCOSE (AUTOMATED) 2022-02-15 16:41:00 Corwin Walden [facility] TRANSTHORACIC ECHO (TTE) 2022-02-15 13:26:00 Corwin Walden [facility] W/ CONTRAST Medical Bran ch POCT GLUCOSE (AUTOMATED) 2022-02-15 13:04:00 Corwin Walden [facility] TROPONIN I 2022-02-15 11:04:00 Kamaljit Astorga [facility] PROCALCITONIN 2022-02-15 11:04:00 Chaparro Lottradha [facility] MAGNESIUM 2022-02-15 10:14:00 Corwin Walden [facility] BASIC METABOLIC PANEL (NA, 2022-02-15 10:14:00 Corwin Walden [facility] K, CL, CO2, GLUCOSE, BUN, Medica l [place] CREATININE, CA) CBC WITHOUT DIFF 2022-02-15 10:14:00 Iram [facility] ACTIVATED PARTIAL THRMPLAS 2022-02-15 10:14:00 Kamaljit Astorga [facility] ACTIVATED PARTIAL THRMPLAS 2022-02-15 03:55:00 Kamaljit Astorga [facility] POCT GLUCOSE (AUTOMATED) 2022-02-15 02:36:00 Corwin Walden [facility] MRSA / MSSA SCREEN BY PCR, 2022-02-15 02:28:00 Corwin Walden [facility] XR CHEST 1 VW 2022-02-15 00:53:48 Iram [facility] TROPONIN I 2022-02-15 00:48:00 Iram [facility] BASIC METABOLIC PANEL (NA, 2022-02-15 00:48:00 Corwin Walden [facility] K, CL, CO2, GLUCOSE, BUN, Medica l [place] CREATININE, CA) LACTIC ACID WHOLE BLOOD 2022-02-15 00:48:00 Corwin [facility]den [facility] E[facility]-12 LEAD 2022-02-14 22:40:56 Osbaldo Aguiar [facility] CRITICAL CARE 2022-02-14 22:10:00 Osbaldo Aguiar [facility] AC PANEL 20 + LACTIC ACID 2022-02-14 21:25:00 Osbaldo Aguiar [facility] ACTIVATED PARTIAL THRMPLAS 2022-02-14 20:54:00 Osbaldo Aguiar [facility] BLOOD CULTURE SCREEN 2022-02-14 20:53:00 Osbaldo Aguiar [facility] BLOOD CULTURE WORKUP 2022-02-14 20:53:00 Osbaldo Aguiar [facility] GRAM POSITIVE BLOOD 2022-02-14 20:53:00 Osbaldo Aguiar [facility] [place] PATHOGENS DNA Medical Branch PROBE-AEROBIC AC PANEL 20 + LACTIC ACID 2022-02-14 20:23:00 [facility]HYTHM 2022-02-14 20:16:55 Osbaldo Aguiar [facility] STRIP [facility] Branch XR CHEST 1 VW 2022-02-14 20:08:00 Osbaldo Aguiar [facility] Branch MAGNESIUM 2022-02-14 20:01:00 Osbaldo Aguiar [facility] TROPONIN I 2022-02-14 20:01:00 Osbaldo Aguiar [facility] COMP. METABOLIC PANEL 2022-02-14 20:01:00 Osbaldo Aguiar [facility] ([id number]) Medical Branch CBC WITH DIFF 2022-02-14 20:01:00 Osbaldo Aguiar [facility] PROTHROMBIN TIME / INR 2022-02-14 20:01:00 Osbaldo Aguiar [facility] N-TERMINAL PRO-BNP 2022-02-14 20:01:00 Osbaldo Aguiar [facility] Medical Branch COVID-19 (ID NOW RAPID 2022-02-14 20:01:00 Osbaldo Aguiar [facility] TESTING) Medical Branch LAB ONLY COVID 2022-02-14 20:01:00 Osbaldo Aguiar [facility] CONSENT/REFUSAL FOR 2022-02-14 19:55:28 Doctor Unavanessaigned, [facility] DIAGNOSIS AND TREATMENT [facility] EXTERNAL PROVIDER RECORDS 2022-02-14 05:01:00 Doctor Unadoug, [facility] Name [facility] HOSPITAL ADMISSION 2022-02-14 05:01:00 Doctor Cynthia, [facility] POCT-GLUCOSE METER 2021-11-12 15:41:00 [facility] POCT-GLUCOSE METER 2021-11-12 11:18:00 [facility] POCT-GLUCOSE METER 2021-11-12 06:33:00 [facility] CBC W/PLT COUNT & AUTO 2021-11-12 04:33:00 Juventino Smith [facility] BASIC METABOLIC PANEL 2021-11-12 04:33:00 SarahJuventino [facility] MAGNESIUM 2021-11-12 04:33:00 Juventino Smith [facility] CBC W/PLT COUNT & AUTO 2021-11-12 04:33:00 Juventino Smith [facility] POCT-GLUCOSE METER 2021-11-11 21:38:00 [facility]ER 2021-11-11 16:31:00 [facility] POCT-GLUCOSE METER 2021-11-11 11:33:00 [facility] NM MYOCARDIAL PERFUSION 2021-11-11 11:00:00 Bebeto [facility], PHARM(LEXISCAN) Center ECG 12-LEAD 2021-11-11 09:26:30 Padmaja [facility] POCT-GLUCOSE METER 2021-11-11 06:42:00 Juventino Smith [facility] XR CHEST 1 VIEW PORTABLE / 2021-11-11 05:48:00 Robb Reina [facility] BEDSIDE [facility] CBC W/PLT COUNT & AUTO 2021-11-11 04:06:00 Juventino Smith [facility] BASIC METABOLIC PANEL 2021-11-11 04:06:00 [facility] MAGNESIUM 2021-11-11 04:06:00 Juventino Smith [facility] CBC W/PLT COUNT & AUTO 2021-11-11 04:06:00 [facility] Juventino Emilia [facility] POCT-GLUCOSE METER 2021-11-10 20:48:00 Sarah Juventino C [facility] POCT-GLUCOSE METER 2021-11-10 15:39:00 [facility] Emilia [facility] POCT-GLUCOSE METER 2021-11-10 11:33:00 [facility] Juventino Emilia [facility] BASIC METABOLIC PANEL 2021-11-10 06:58:00 Cheri, [facility] HEPATIC FUNCTION PANEL 2021-11-10 06:58:00 [facility] COUNT & AUTO 2021-11-10 06:58:00 Cheri, [facility] CBC W/PLT COUNT & AUTO 2021-11-10 06:58:00 Cheri [facility] POCT-GLUCOSE METER 2021-11-10 06:54:00 Juventino Smith [facility] POCT-GLUCOSE METER 2021-11-09 21:49:00 Juventino Smith [facility] POCT-GLUCOSE METER 2021-11-09 16:10:00 Juventino Smith [facility] POCT-GLUCOSE METER 2021-11-09 12:19:00 Juventino Smith [facility] VENOUS DOPPLER LEGS 2021-11-09 10:33:00 Velma Bustamante [facility] XR CHEST 1 VIEW PORTABLE / 2021-11-09 07:32:00 Velma Bustamante [facility] POCT-GLUCOSE METER 2021-11-09 07:22:00 Juventino Smith [facility] BASIC METABOLIC PANEL 2021-11-09 04:06:00 Cheri [facility] HEPATIC FUNCTION PANEL 2021-11-09 04:06:00 Cheri [facility] CBC W/PLT COUNT & AUTO 2021-11-09 04:06[facility]-1 AG W/HIV-1&2 2021-11-09 04:06:00 Hector Gaspar [facility] HEPATITIS PANEL, ACUTE 2021-11-09 04:06:00 Hector Gaspar [facility] HEMOGLOBIN A1C 2021-11-09 04:06:00 Hector Gaspar [facility] APTT 2021-11-09 [facility]:06[facility] AUTO 2021-11-09 04:06[facility] 2021-11-09 00:21[facility] 2021-11-08 21:26:59 Unknown, [facility] ECG 12-LEAD 2021-11-08 21:26:59 Unknown, [facility] POCT-GLUCOSE METER 2021-11-08 20:43:00 Juventino Smith [facility] APTT 2021-11-08 19:42:00 [facility] 2021-11-08 16:28:[facility] GLU[facility]SE 2021-11-08 16:27:00 Juventino Smith [facility] SPUTUM CULTURE + GRAM 2021-11-08 15:33:00 Guera Yarbrough [facility] US RENAL COMPLETE 2021-11-08 12:14:00 [facility] PO[facility]SE METER 2021-11-08 11:32:00 Juventino Smith [facility] APTT 2021-11-08 11:22:00 [facility] TROPONIN I 2021-11-08 11:22:00 [facility] BASIC METABOLIC PANEL 2021-11-08 11:22:00 Chester Jarvis [facility] 2D ECHO W/ DOPPLER 2021-11-08 10:36:38 [facility] (CW/PW/COLOR) [facility] CT CHEST WITHOUT IV 2021-11-08 09:34:00 Cheri, [facility] NM LUNG PERFUSION SCAN 2021-11-08 09:20:00 Cheri [facility] XR CHEST 1 VIEW PORTABLE / 2021-11-08 08:23:00 JarvisChester [facility] APTT 2021-11-08 05:53:00 Cheri [facility] LACTIC ACID, VENOUS 2021-11-08 05:07:00 Cheri [facility] LEGIONELLA ANTIGEN, URINE 2021-11-08 04:17:00 Cheri [facility] URINALYSIS WITH 2021-11-08 04:16:00 Cheri [facility] MICROSCOPIC IF INDICATED [facility] URINALYSIS MICROSCOPIC 2021-11-08 04:16:00 Cheri [facility] TROPONIN I 2021-11-08 04:07:00 Cheri [facility] BLOOD CULTURE 2021-11-08 04:02:00 Cheri [facility] POCT-GLUCOSE METER 2021-11-08 04:00:00 Cheri [facility] PROCALCITONIN 2021-11-08 03:59:00 Cheri [facility] BASIC METABOLIC PANEL 2021-11-08 03:58:00 [facility]EL 2021-11-08 03:58:00 [facility] A1C 2021-11-08 03:58:00 [facility] PROT[facility]/INR 2021-11-08 03:58:00 [facility] MAG[facility]UM 2021-11-08 03:58:00 Cheri [facility] PHOSPHORUS 2021-11-08 03:58:00 [facility] CBC W/PLT COUNT & AUTO 2021-11-08 03:58:00 Cheri, [facility] DIFFERENTIAL [facility] B-TYPE NATRIURETIC FACTOR 2021-11-08 03:58:[address] [facility] (BNP) [facility] D-DIMER 2021-11-08 03:58:00 Cheri, [facility] CBC W/PLT COUNT & AUTO 2021-11-08 03:58:00 Cheri, [facility] DIFFERENTIAL [facility] ECG 12-LEAD 2021-11-08 03:52:58 Cheri, [facility] ECG 12-LEAD 2021-11-08 03:52:58 Cheri, [facility] XR CHEST 1 VIEW PORTABLE / 2021-11-08 03:47:00 CheriJen lucero [facility] BEDSIDE [facility] XR ABDOMEN/KUB 1 VIEW 2021-11-08 03:47:00 Cheri, [facility] PORTABLE [facility] BLOOD GAS, ARTERIAL 2021-11-08 03:29:00 Cheri, [facility] EKG-SCANNED 2021-11-08 00:00:00 Provider, [facility] PET CT Lung solitary pulm 2020-04-07 00:00:00 [facility] nodule [id number] Plan of Care Planned Activity Planned Date Details Comments Source Future Scheduled 2022-11-[address] [facility] Test 00:00[facility]00 [facility] (12+) [code = Tobacco Cessation Counseling and Screening (12+)] Future Scheduled 2022-11-[address] [facility] Test 00:00:[facility] [...] [facility] Pending [facility]:00 pulm nodule [id number] [code = 06867] Diagnostic Test 2020-04-[address] Lung solitary [facility] Pending 00:00:00 pulm nodule [id number] [code = 90564] Future Scheduled [address] [facility] Test 00:00:00 aneurysm screening Medical C enter (procedure) [code = [id number]] Future Scheduled [address] [facility] Test 00:00:00 aneurysm screening Medical C enter (procedure) [code = 981135359] Future Scheduled [address] [facility] 00:00:00 aneurysm screening Medical C enter (procedure) [code = 050344732] Future Scheduled [address] [facility] 00:00:00 aneurysm screening Medical C enter (procedure) [code = 904180115] Future Scheduled 2002 SHINGLES VACCINES (1 [facility] [...] Future Scheduled [address] [facility] colon (procedure) [code = 483781683] Future Scheduled [address] [facility] colon (procedure) [code = 633848319] Future Scheduled [address] [facility] colon (procedure) [code = 649638154] Future Scheduled [address] [facility] colon (procedure) [code = 717500691] Future Scheduled 1952 Sigmoidoscopy [facility] Future Scheduled [address] [facility] 00:00:00 (combo) [code = CT Medical C enter Colonography (combo)] Future Scheduled [address] [facility] 00:[facility]:00 [facility] colon (procedure) [code = 807558027] Future Scheduled [address] [facility] 00:00:00 [facility] colon (procedure) [code = 896238879] Future Scheduled [address] [facility] 00:[facility]:00 [facility] colon (procedure) [code = 119891692] Future Scheduled [address] [facility] 00:[facility]:00 [facility] colon (procedure) [code = 947143449] Future Scheduled 1952 [facility]oidoscopy [facility] Future Scheduled [address] [facility] 00:00:00 (combo) [code = CT Medical C enter Colonography (combo)] Future Scheduled [address] [facility] 00:00:00 [facility] colon (procedure) [code = 601898230] Future Scheduled [address] [facility] 00:00:00 [facility] colon (procedure) [code = 911515521] Future Scheduled [address] [facility] 00:00:00 [facility] colon (procedure) [code = 856355949] Future Scheduled [address] [facility] 00:00:00 [facility] colon (procedure) [code = 639009918] Future Scheduled 1952 Sigmoidoscopy [facility]code [facility] Future Scheduled [address] [facility] 00:00:00 (combo) [code = CT Medical C enter Colonography (combo)] Future Scheduled [address] [facility] 00:00:00 [facility] colon (procedure) [code = 081578889] Future Scheduled [address] [facility] 00:00:00 [facility] colon (procedure) [code = 648033590] Future Scheduled [address] [facility] 00:00:00 [facility] colon (procedure) [code = 142684439] Future Scheduled [address] [facility] 00:00:00 [facility] colon (procedure) [code = 977730760] Future Scheduled 1952 Sigmoidoscopy [facility]code [facility]] Medical Cente r Encounters Start End Encounter Admission Attending Care Care Encounter Source Date/Time Date/Time Type Type Clinicians Facility Department ID 2022-03-31 2022-03-31 Jovita CASTRO 1.2.840.114 [id number] [facility] 00:00:00 00:00:00 Only Unassigned, MARTHA 350.1.13.10 [facility] 4.2.7.2.686 Rolando as [phone] [address] 2022-03-02 2022-03-02 Orders Doctor MATTHEW 1.2.840.114 [id number] [facility] 00:00:00 00:00:00 Only Unassigned, MARTHA 350.1.13.10 [facility] [facility] 4.2.7.2.686 [place] as [phone] [address] 2022-02-26 2022-02-26 Orders Doctor MATTHEW 1.2.840.114 [id number] Univers 00:00:00 00:00:00 Only Unassigned, MARTHA 350.1.13.10 [facility] [facility] 4.2.7.2.686 [place] as [id number] [address] 2022-02-23 2022-02-23 Care Marlisa 2.16.840. 2.16.840.1. CLAC [id number] [facility] 21:00:00 21:30:00 [employer] Yi [id number]. [id number]. [facility] 4.. [id number] 2022-02-23 2022-02-23 Transition ENE Wang 1.2.840.114 [id number] Univers 00:00:00 00:00:00 of Care Nyasia B LEHMAN 350.1.13.10 [id number] [address] 2022-02-22 2022-02-22 Transition ENE Wang 1.2.840.114 [id number] Univers 00:00:00 00:00:00 of Care Nyasia B [place] 350.1.13.10 [place] [id number] [address] 2022-02-22 2022-02-22 Orders Doctor CASTRO 1.2.840.114 [id number] Univers 00:00:00 00:00:00 Only Unassigned, MARTHA 350.1.13.10 [facility] [place] [facility] 4.2.7.2.686 [place] as [phone] [facility] [address] 2022-02-20 2022-02-20 Emergency [facility] [id number] Univers 18:53:00 20:00:00 FELICIA galo o nir [facility] 2022-02-20 2022-02-20 Emergency [facility] 1.2.840.114 [id number] Univers 18:53:00 20:00:00 [facility] 350.1.13.10 [place] [phone] [facility] [address] ([facility]) 2022-02-20 2022-02-20 Emergency [facility] [id number] Univers 18:53:00 20:00:00 FELICIA loyola [facility] 2022-02-14 2022-02-20 Hospital Osbaldo Aguiar [facility] 1.2.840.1 [id number] Univers 14:51:00 17:13:00 Encounter Iram Corwin [facility] 350.1.13.10 ity of [place] 4.2.7.2.686 T Carmelo Foster MESA [id number] [facility] [address] ([facility]) 2022-02-14 2022-02-20 Inpatient X [facility] [id number] Univers 14:51:00 17:13:00 CARMELO ity of [facility] 2022-02-17 2022-02-17 [facility] 1.2.840.114 [id number] Univers 09:00:00 11:00:00 [facility] 350.1.13.10 [place] [id number] [facility] [address] ([facility]) 2022-01-08 2022-01-08 Outpatient DMG DMG [id number] [facility] 07:10:00 07:10:00 0715 Medica l [facility] 2021-12-09 2021-12-09 Outpatient FAYE MILLER, SLE SLE [id number] [facility] 00:00:00 00:00:00 TONY 2021-12-08 2021-12-08 Telephone Angel, [place] [facility] [id number] [facility]00 [facility] 2021-12-08 2021-12-08 Telephone Haven Ortiz [facility] [id number] 00:[facility] 00[facility]00[facility]00 [facility] 2021-11-08 2021-11-12 [facility] Jen [facility] [id number] 03:10[facility]00 20:10[facility]00 [facility] 2021-[facility] 2021-11-12 Inpatient ER DAVIS [facility] Medical ICU [id number] [facility] 03:10:00 20:10:00 [facility] 2021-11-08 2021-11-12 [facility] Jen [facility] [id number] 03:10[facility]00 20:10[facility]00 [facility] 2021-11-10 2021-11-10 Travel [facility] [id number] [facility] 00[facility]00 [facility] 2021-11-10 2021-11-10 Travel [facility] [id number] [facility] 00[facility]00[facility]00 [facility] 2021-10-11 2021-10-11 Emergency X [facility] ERT [id number] Univers 05:52:00 06:48:00 HARDEEP galo [facility] 2021-10-11 2021-10-11 Emergency [facility] [id number] Univers 05:52:00 06:48:00 Hardeep RUSSELL 350.1.13.10 irja [facility] 4.2.7.2.686 [facility] [id number] [place] [address] 2020-11-21 2020-11-21 Outpatient DMG DMG [id number] [facility] 08:00:00 08:00:00 0528 Medica l Group 2020-05-05 2020-05-05 Outpatient JOHN, [facility]UL [address] [facility] 13:21:00 15:55:00 PASTORA 2020-04-15 2020-04-15 Appointmen DOLLY FRANCIS Cardiology [id number] [place] 14:00:00 14:00:00 t; [facility] christina DESIR M.D. [place] 2020-04-07 2020-04-07 Appointmen JOHN [facility] Pulmonary & [id number] [place] 13:30:00 13:30:00 t; PASTORA LOPEZ, Sleep Physi ci Carlos GUILLORY M.D. Results Test Description Test Time Test Comments Results Result Comments Source BLOOD CULTURE SCREEN 2022-02-20 19:01:45 Test Item Value Reference Range Interpretation Comme nts Blood Culture-Aerobic (test No organisms isolated No growth Previous preliminary code = 75337-2) verified res ult was Culture In Prog ress on 02/15/2022 at 17 02 CDTPrevious pre liminary verified result was No growth at 24 ho urs on 02/16/2022 at 14 01 CDTPrevious pre liminary verified result was No growth at 48 ho urs on 02/17/2022 at 14 01 CDTPrevious pre liminary verified result was No growth at 72 ho urs on 02/18/2022 at 14 01 CDT Blood Culture-Anaerobic No organisms isolated No growth Previous preliminary (test code = 84847-2) verifi ed result was Culture In Prog ress on 02/15/2022 at 17 02 CDTPrevious pre liminary verified result was No growth at 24 ho urs on 02/16/2022 at 14 01 CDTPrevious pre liminary verified result was No growth at 48 ho urs on 02/17/2022 at 14 01 CDTPrevious pre liminary verified result was No growth at 72 ho urs on 02/18/2022 at 14 01 CDT Lab Interpretation (test Normal code = 53245-8) [facility] [id number] 19:01:45 Test Item Value Reference Range Interpretation Comments Blood Culture-Aerobic No organisms No growth Previo us (test code = 81377-4) isolated prelim inary verified result was Culture In Progress on 02/15/2022 at 17 02 CDTPrevious preliminary verified result was No growth a t 24 hours on 02/16/2022 at 14 01 CDTPrevious preliminary verified result was No growth a t 48 hours on 02/17/2022 at 14 01 CDTPrevious preliminary verified result was No growth a t 72 hours on 02/18/2022 at 14 01 CDT Blood No organisms No growth Previous Culture-Anaerobic isolated preliminar y (test code = 70681-0) verifi ed result was Culture In Progress on 02/15/2022 at 17 02 CDTPrevious preliminary verified result was No growth a t 24 hours on 02/16/2022 at 14 01 CDTPrevious preliminary verified result was No growth a t 48 hours on 02/17/2022 at 14 01 CDTPrevious preliminary verified result was No growth a t 72 hours on 02/18/2022 at 14 01 CDT Lab Interpretation Normal (test code = 75442-1) [facility] CULTURE [id number] 19:01:45 Test Item Value Reference Range Interpretation Comments Blood Culture-Aerobic No organisms No growth Previo us (test code = 48718-0) isolated prelim inary verified result was Culture In Progress on 02/15/2022 at 17 02 CDTPrevious preliminary verified result was No growth a t 24 hours on 02/16/2022 at 14 01 CDTPrevious preliminary verified result was No growth a t 48 hours on 02/17/2022 at 14 01 CDTPrevious preliminary verified result was No growth a t 72 hours on 02/18/2022 at 14 01 CDT Blood No organisms No growth Previous Culture-Anaerobic isolated preliminar y (test code = 33032-0) verifi ed result was Culture In Progress on 02/15/2022 at 17 02 CDTPrevious preliminary verified result was No growth a t 24 hours on 02/16/2022 at 14 01 CDTPrevious preliminary verified result was No growth a t 48 hours on 02/17/2022 at 14 01 CDTPrevious preliminary verified result was No growth a t 72 hours on 02/18/2022 at 14 01 CDT Lab Interpretation Normal (test code = 79864-2) [facility] CULTURE [id number] 19:01:45 Test Item Value Reference Range Interpretation Comments Blood Culture-Aerobic No organisms No growth Previo us (test code = 87713-7) isolated prelim inary verified result was Culture In Progress on 02/15/2022 at 17 02 CDTPrevious preliminary verified result was No growth a t 24 hours on 02/16/2022 at 14 01 CDTPrevious preliminary verified result was No growth a t 48 hours on 02/17/2022 at 14 01 CDTPrevious preliminary verified result was No growth a t 72 hours on 02/18/2022 at 14 01 CDT Blood No organisms No growth Previous Culture-Anaerobic isolated preliminar y (test code = 60283-0) verifi ed result was Culture In Progress on 02/15/2022 at 17 02 CDTPrevious preliminary verified result was No growth a t 24 hours on 02/16/2022 at 14 01 CDTPrevious preliminary verified result was No growth a t 48 hours on 02/17/2022 at 14 01 CDTPrevious preliminary verified result was No growth a t 72 hours on 02/18/2022 at 14 01 CDT Lab Interpretation Normal (test code = 79516-6) [facility] GLUCOSE (AUTOMATED)2022-02-20 18:40:11 Test Item Value Reference Range Interpretation Comments POCT GLU (test code = 7685787991) 168 mg/dL 70-110 H Lab Interpretation (test code = Abnormal 31441-1) [facility] GLUCOSE (AUTOMATED)2022-02-20 18:40:11 Test Item Value Reference Range Interpretation Comments POCT GLU (test code = 7450467067) 168 mg/dL 70-110 H Lab Interpretation (test code = Abnormal 16429-3) [facility] GLUCOSE (AUTOMATED)2022-02-20 14:46:14 Test Item Value Reference Range Interpretation Comments POCT GLU (test code = 9674245998) 235 mg/dL 70-110 H Lab Interpretation (test code = Abnormal 24444-7) [facility] GLUCOSE (AUTOMATED)2022-02-20 14:46:14 Test Item Value Reference Range Interpretation Comments POCT GLU (test code = 3341794623) 235 mg/dL 70-110 H Lab Interpretation (test code = Abnormal 45240-6) [facility] METABOLIC PANEL (NA, K, CL, CO2, GLUCOSE, BUN, CREATININE, CA)2022-02-20 02:03:45 Test Item Value Reference Range Interpretation Comments NA (test code = 131 mmol/L 135-145 L 6393850259) K (test code = 4.9 mmol/L 3.5-5.0 6504149068) CL (test code = 102 mmol/L 98-108 0298189733) CO2 TOTAL (test code = 25 mmol/L 23-31 7979927350) AGAP (test code = 2-16 7880344780) BUN (test code = 52 mg/dL 7-23 H 4729101349) GLUCOSE (test code = 143 mg/dL 70-110 H 3881291952) CREATININE (test code = 1.40 mg/dL 0.60-1.25 H 2567695627) CALCIUM (test code = 8.3 mg/dL 8.6-10.6 L 7078068261) eGFR (test code = mL/min/1.73m2 8550042970) JUAN (test code = JUAN) Association of Glomerular Filtration Rate (GFR) and Staging of Kidney Disease* + --+ --+ ------+| GFR (mL/min/1.73 m2) ?| With Kidney Damage ?| ?Without Kidney Damage+ --------+ --------+ +| ?>90 ?| ?Stage one ?| ? Normal ?+ ---+ ---+ -------+| ?60-89 ?| ?Stage two ?| ? Decreased GFR ? + --+ --+ ------+| ?30-59 ?| ?Stage three ?| ? Stage three ? + --+ --+ ------+| ?15-29 ?| ?Stage four ? | ? Stage four ?+ ---+ ---+ -------+| ?<15 (or dialysis) ? ?| ?Stage five ? | ? Stage five ?+ ---+ ---+ -------+ *Each stage assumes the associated GFR level has been in effect for at least three months. ?Stages 1 to 5, with or without kidney disease, indicate chronic kidney disease. Notes: Determination of stages one and two (with eGFR >59mL/min/1.73 m2) requires estimation of kidney damage for at least three months as defined by structural or functional abnormalities of the kidney, manifested by either:Pathological abnormalities or Markers of kidney damage (including abnormalities in the composition of the blood or urine or abnormalities in imaging tests). Lab Interpretation Abnormal (test code = 63611-4) [facility] METABOLIC PANEL (NA, K, CL, CO2, GLUCOSE, BUN, CREATININE, CA)2022-02-20 02:03:45 Test Item Value Reference Range Interpretation Comments NA (test code = 131 mmol/L 135-145 L 9365643950) K (test code = 4.9 mmol/L 3.5-5.0 3602421137) CL (test code = 102 mmol/L 98-108 2562835621) CO2 TOTAL (test code = 25 mmol/L 23-31 5400719148) AGAP (test code = 2-16 7581645733) BUN (test code = 52 mg/dL 7-23 H 6542926930) GLUCOSE (test code = 143 mg/dL 70-110 H 6896718385) CREATININE (test code = 1.40 mg/dL 0.60-1.25 H 1004056691) CALCIUM (test code = 8.3 mg/dL 8.6-10.6 L 6771311345) eGFR (test code = mL/min/1.73m2 0764753858) JUAN (test code = JUAN) Association of Glomerular Filtration Rate (GFR) and Staging of Kidney Disease* + --+ --+ ------+| GFR (mL/min/1.73 m2) ?| With Kidney Damage ?| ?Without Kidney Damage+ --------+ --------+ +| ?>90 ?| ?Stage one ?| ? Normal ?+ ---+ ---+ -------+| ?60-89 ?| ?Stage two ?| ? Decreased GFR ? + --+ --+ ------+| ?30-59 ?| ?Stage three ?| ? Stage three ? + --+ --+ ------+| ?15-29 ?| ?Stage four ? | ? Stage four ?+ ---+ ---+ -------+| ?<15 (or dialysis) ? ?| ?Stage five ? | ? Stage five ?+ ---+ ---+ -------+ *Each stage assumes the associated GFR level has been in effect for at least three months. ?Stages 1 to 5, with or without kidney disease, indicate chronic kidney disease. Notes: Determination of stages one and two (with eGFR >59mL/min/1.73 m2) requires estimation of kidney damage for at least three months as defined by structural or functional abnormalities of the kidney, manifested by either:Pathological abnormalities or Markers of kidney damage (including abnormalities in the composition of the blood or urine or abnormalities in imaging tests). Lab Interpretation Abnormal (test code = 35556-6) [facility] GLUCOSE (AUTOMATED)2022-02-20 01:02:55 Test Item Value Reference Range Interpretation Comments POCT GLU (test code = 153 mg/dL 70-110 H Notifi ed Provider [id number]) Lab Interpretation (test Abnormal code = 79392-8) [facility] GLUCOSE (AUTOMATED)2022-02-20 01:02:55 Test Item Value Reference Range Interpretation Comments POCT GLU (test code = 153 mg/dL 70-110 H Notifi ed Provider [id number]) Lab Interpretation (test Abnormal code = 78419-6) [facility] GLUCOSE (AUTOMATED)2022-02-19 22:29:08 Test Item Value Reference Range Interpretation Comments POCT GLU (test code = 9261003568) 137 mg/dL 70-110 H Lab Interpretation (test code = Abnormal 42924-9) [facility] GLUCOSE (AUTOMATED)2022-02-19 22:29:08 Test Item Value Reference Range Interpretation Comments POCT GLU (test code = 6663296632) 137 mg/dL 70-110 H Lab Interpretation (test code = Abnormal 25902-5) [facility] GLUCOSE (AUTOMATED)2022-02-19 16:28:48 Test Item Value Reference Range Interpretation Comments POCT GLU (test code = 7799088572) 200 mg/dL 70-110 H Lab Interpretation (test code = Abnormal 20881-3) [facility] GLUCOSE (AUTOMATED)2022-02-19 16:28:48 Test Item Value Reference Range Interpretation Comments POCT GLU (test code = 3182801526) 200 mg/dL 70-110 H Lab Interpretation (test code = Abnormal 87295-6) [facility] GLUCOSE (AUTOMATED)2022-02-19 13:19:05 Test Item Value Reference Range Interpretation Comments POCT GLU (test code = 0697076506) 152 mg/dL 70-110 H Lab Interpretation (test code = Abnormal 07980-4) [facility] GLUCOSE (AUTOMATED)2022-02-19 13:19:05 Test Item Value Reference Range Interpretation Comments POCT GLU (test code = 0889710683) 152 mg/dL 70-110 H Lab Interpretation (test code = Abnormal 05685-1) [facility] GLUCOSE (AUTOMATED)2022-02-19 01:15:20 Test Item Value Reference Range Interpretation Comments POCT GLU (test code = 215 mg/dL 70-110 H Notifi ed Provider [id number]) Lab Interpretation (test Abnormal code = 62441-1) [facility] GLUCOSE (AUTOMATED)2022-02-19 01:15:20 Test Item Value Reference Range Interpretation Comments POCT GLU (test code = 215 mg/dL 70-110 H Notifi ed Provider [id number]) Lab Interpretation (test Abnormal code = 53213-2) [facility] GLUCOSE (AUTOMATED)2022-02-18 21:59:14 Test Item Value Reference Range Interpretation Comments POCT GLU (test code = 6814478856) 171 mg/dL 70-110 H Lab Interpretation (test code = Abnormal 11804-0) [facility] GLUCOSE (AUTOMATED)2022-02-18 21:59:14 Test Item Value Reference Range Interpretation Comments POCT GLU (test code = 3995691696) 171 mg/dL 70-110 H Lab Interpretation (test code = Abnormal 98605-8) [facility] 20:40:46 Test Item Value Reference Interpretation Comments Range Procalcitonin (test 0.15 ng/mL See_Comment H [Automa josh code = 5269436830) message] The system which generated this result transmitted reference range: <=0.08. The reference range was not used to interpret this result as normal/abnormal . JUAN (test code = INTERPRETATION OF JUAN) PROCALCITONIN RESULTS IN ADULTS >= 18 YEARS OF AGE Initiation and discontinuation of antibiotics on patients with suspected or confirmed Lower Respiratory Tract Infection in Adults >= 18 years of age. + +------ + ----+ +|Procalcit onin |Interpretation ?|Antibiotic ? ? |Considerations ? |ng/mL ? | ?|recommendation | ? + +------ + ----+ +| <0.1 ? | Bacterial ? ? ?| Strongly ? ? ?| ? | ?| infection very | discouraged ? | Overruling: ? | ?| unlikely ? ? ? | ? | ? Clinically unstable ? ? ? + +------ + ----+ ? High risk for adverse ? ? | <0.25 ?| Bacterial ? ? ?| Discouraged ? | ? outcome ? | ?| infection ? ? ?| ? | ? SEE IMPORTANT NOTE ?| ?| unlikely ? ? ? | ? | ? + +------ + ----+ +| >=0.25 ? ? ? | Bacterial ? ? ?| Encouraged ? ?| ? | ?| infection ? ? ?| ? | ? | ?| likely ? | ? | Consider treatment failure ?+ +----- + -----+ if levels does not decrease | >0.5 ? | Bacterial ? ? ?| Strongly ? ? ?| appropriately ? | ?| infection very | encouraged ? ?| ? | ?| likely ? | ? | ? + +------ + ----+ + Discontinuation of antibiotics in high-acuity patients with suspected or confirmed sepsis in Adults >= 18 years of age. + +------ + ----+ +|Procalcit onin |Interpretation ?|Antibiotic ? ? |Considerations ? |ng/mL ? | ?|recommendation | ? + +------ + ----+ +| <0.25 ?| Bacterial ? ? ?| Strongly ? ? ?| ? | ?| infection very | discouraged ? | Overruling: ? | ?| unlikely ? ? ? | ? | ? Clinically unstable ? ? ? + +------ + ----+ ? High risk for adverse ? ? | <0.5 or drop | Bacterial ? ? ?| Discouraged ? | ? outcome ? | >80% from ? ?| infection ? ? ?| ? | ? SEE IMPORTANT NOTE ?| highest PCT ?| unlikely ? ? ? | ? | ? | level ?| ?| ? | ? + +------ + ----+ +| >=0.5 ?| Bacterial ? ? ?| Encouraged ? ?| ? | ?| infection ? ? ?| ? | ? | ?| likely ? | ? | Consider treatment failure ?+ +----- + -----+ if levels does not decrease | >1.0 ? | Bacterial ? ? ?| Strongly ? ? ?| appropriately ? | ?| infection very | encouraged ? ?| ? | ?| likely ? | ? | ? + +------ + ----+ + Percentage of drop of Procalcitonin calculation for Discontinuation of antibiotics in high-acuity patients with suspected or confirmed sepsis in Adults >= 18 years of age. ? Procalcitonin highest{}-Procalcitoni n current{}Delta Procalcitonin = ___ x100% ? Procalcitonin current {} IMPORTANT NOTE: Procalcitonin may be elevated without bacterial infection by physiologic stress related to trauma, cueva, chronic dialysis, metastatic cancer, surgery in the past seven days, malaria, some fungal infections, and some forms of vasculitis. The interpretation algorithm may not apply to patients with immunosuppression (equivalent of >10 mg of prednisone daily), HIV with CD4 cell count < 350 cells/mm3, active malignancy on systemic chemotherapy, solid organ transplant or hematopoietic stem cell transplantation, or hospital acquired pneumonia. Additionally, some clinical trials of procalcitonin have excluded patients with shock requiring vasopressor use, acute respiratory failure requiring mechanical ventilation, or those with known lung abscess/empyema. For further information please refer to:[email or web address] Lab Interpretation Abnormal (test code = 79506-3) [facility] 20:40:46 Test Item Value Reference Interpretation Comments Range Procalcitonin (test 0.15 ng/mL See_Comment H [Automa josh code = 2889123625) message] The system which generated this result transmitted reference range: <=0.08. The reference range was not used to interpret this result as normal/abnormal . JUAN (test code = INTERPRETATION OF JUAN) PROCALCITONIN RESULTS IN ADULTS >= 18 YEARS OF AGE Initiation and discontinuation of antibiotics on patients with suspected or confirmed Lower Respiratory Tract Infection in Adults >= 18 years of age. + +------ + ----+ +|Procalcit onin |Interpretation ?|Antibiotic ? ? |Considerations ? |ng/mL ? | ?|recommendation | ? + +------ + ----+ +| <0.1 ? | Bacterial ? ? ?| Strongly ? ? ?| ? | ?| infection very | discouraged ? | Overruling: ? | ?| unlikely ? ? ? | ? | ? Clinically unstable ? ? ? + +------ + ----+ ? High risk for adverse ? ? | <0.25 ?| Bacterial ? ? ?| Discouraged ? | ? outcome ? | ?| infection ? ? ?| ? | ? SEE IMPORTANT NOTE ?| ?| unlikely ? ? ? | ? | ? + +------ + ----+ +| >=0.25 ? ? ? | Bacterial ? ? ?| Encouraged ? ?| ? | ?| infection ? ? ?| ? | ? | ?| likely ? | ? | Consider treatment failure ?+ +----- + -----+ if levels does not decrease | >0.5 ? | Bacterial ? ? ?| Strongly ? ? ?| appropriately ? | ?| infection very | encouraged ? ?| ? | ?| likely ? | ? | ? + +------ + ----+ + Discontinuation of antibiotics in high-acuity patients with suspected or confirmed sepsis in Adults >= 18 years of age. + +------ + ----+ +|Procalcit onin |Interpretation ?|Antibiotic ? ? |Considerations ? |ng/mL ? | ?|recommendation | ? + +------ + ----+ +| <0.25 ?| Bacterial ? ? ?| Strongly ? ? ?| ? | ?| infection very | discouraged ? | Overruling: ? | ?| unlikely ? ? ? | ? | ? Clinically unstable ? ? ? + +------ + ----+ ? High risk for adverse ? ? | <0.5 or drop | Bacterial ? ? ?| Discouraged ? | ? outcome ? | >80% from ? ?| infection ? ? ?| ? | ? SEE IMPORTANT NOTE ?| highest PCT ?| unlikely ? ? ? | ? | ? | level ?| ?| ? | ? + +------ + ----+ +| >=0.5 ?| Bacterial ? ? ?| Encouraged ? ?| ? | ?| infection ? ? ?| ? | ? | ?| likely ? | ? | Consider treatment failure ?+ +----- + -----+ if levels does not decrease | >1.0 ? | Bacterial ? ? ?| Strongly ? ? ?| appropriately ? | ?| infection very | encouraged ? ?| ? | ?| likely ? | ? | ? + +------ + ----+ + Percentage of drop of Procalcitonin calculation for Discontinuation of antibiotics in high-acuity patients with suspected or confirmed sepsis in Adults >= 18 years of age. ? Procalcitonin highest{}-Procalcitoni n current{}Delta Procalcitonin = ___ x100% ? Procalcitonin current {} IMPORTANT NOTE: Procalcitonin may be elevated without bacterial infection by physiologic stress related to trauma, cueva, chronic dialysis, metastatic cancer, surgery in the past seven days, malaria, some fungal infections, and some forms of vasculitis. The interpretation algorithm may not apply to patients with immunosuppression (equivalent of >10 mg of prednisone daily), HIV with CD4 cell count < 350 cells/mm3, active malignancy on systemic chemotherapy, solid organ transplant or hematopoietic stem cell transplantation, or hospital acquired pneumonia. Additionally, some clinical trials of procalcitonin have excluded patients with shock requiring vasopressor use, acute respiratory failure requiring mechanical ventilation, or those with known lung abscess/empyema. For further information please refer to:[email or web address] Lab Interpretation Abnormal (test code = 02000-7) [facility] GLUCOSE (AUTOMATED)2022-02-18 17:32:13 Test Item Value Reference Range Interpretation Comments POCT GLU (test code = 7568118580) 129 mg/dL 70-110 H Lab Interpretation (test code = Abnormal 02478-1) [facility] GLUCOSE (AUTOMATED)2022-02-18 17:32:13 Test Item Value Reference Range Interpretation Comments POCT GLU (test code = 8300149751) 129 mg/dL 70-110 H Lab Interpretation (test code = Abnormal 01390-2) [facility] GLUCOSE (AUTOMATED)2022-02-18 12:59:31 Test Item Value Reference Range Interpretation Comments POCT GLU (test code = 4665317657) 89 mg/dL 70-110 Lab Interpretation (test code = Normal 07944-5) [facility] GLUCOSE (AUTOMATED)2022-02-18 12:59:31 Test Item Value Reference Range Interpretation Comments POCT GLU (test code = 5775446443) 89 mg/dL 70-110 Lab Interpretation (test code = Normal 56980-0) [facility] METABOLIC PANEL (NA, K, CL, CO2, GLUCOSE, BUN, CREATININE, CA)2022-02-18 09:38:02 Test Item Value Reference Range Interpretation Comments NA (test code = 133 mmol/L 135-145 L 2237808539) K (test code = 4.5 mmol/L 3.5-5.0 6196611856) CL (test code = 106 mmol/L 98-108 4265044233) CO2 TOTAL (test code = 23 mmol/L 23-31 6434233451) AGAP (test code = 2-16 7585231548) BUN (test code = 51 mg/dL 7-23 H 8994861352) GLUCOSE (test code = 81 mg/dL 70-110 5944801654) CREATININE (test code = 1.49 mg/dL 0.60-1.25 H 9202296342) CALCIUM (test code = 8.1 mg/dL 8.6-10.6 L 1075325953) eGFR (test code = mL/min/1.73m2 3735533677) JUAN (test code = JUAN) Association of Glomerular Filtration Rate (GFR) and Staging of Kidney Disease* + --+ --+ ------+| GFR (mL/min/1.73 m2) ?| With Kidney Damage ?| ?Without Kidney Damage+ --------+ --------+ +| ?>90 ?| ?Stage one ?| ? Normal ?+ ---+ ---+ -------+| ?60-89 ?| ?Stage two ?| ? Decreased GFR ? + --+ --+ ------+| ?30-59 ?| ?Stage three ?| ? Stage three ? + --+ --+ ------+| ?15-29 ?| ?Stage four ? | ? Stage four ?+ ---+ ---+ -------+| ?<15 (or dialysis) ? ?| ?Stage five ? | ? Stage five ?+ ---+ ---+ -------+ *Each stage assumes the associated GFR level has been in effect for at least three months. ?Stages 1 to 5, with or without kidney disease, indicate chronic kidney disease. Notes: Determination of stages one and two (with eGFR >59mL/min/1.73 m2) requires estimation of kidney damage for at least three months as defined by structural or functional abnormalities of the kidney, manifested by either:Pathological abnormalities or Markers of kidney damage (including abnormalities in the composition of the blood or urine or abnormalities in imaging tests). Lab Interpretation Abnormal (test code = 24501-4) [facility] METABOLIC PANEL (NA, K, CL, CO2, GLUCOSE, BUN, CREATININE, CA)2022-02-18 09:38:02 Test Item Value Reference Range Interpretation Comments NA (test code = 133 mmol/L 135-145 L 8752517580) K (test code = 4.5 mmol/L 3.5-5.0 9086941394) CL (test code = 106 mmol/L 98-108 4941276197) CO2 TOTAL (test code = 23 mmol/L 23-31 1049855239) AGAP (test code = 2-16 5161852639) BUN (test code = 51 mg/dL 7-23 H 8011406883) GLUCOSE (test code = 81 mg/dL 70-110 1588006330) CREATININE (test code = 1.49 mg/dL 0.60-1.25 H 0680555251) CALCIUM (test code = 8.1 mg/dL 8.6-10.6 L 8456395819) eGFR (test code = mL/min/1.73m2 5675711699) JUAN (test code = JUAN) Association of Glomerular Filtration Rate (GFR) and Staging of Kidney Disease* + --+ --+ ------+| GFR (mL/min/1.73 m2) ?| With Kidney Damage ?| ?Without Kidney Damage+ --------+ --------+ +| ?>90 ?| ?Stage one ?| ? Normal ?+ ---+ ---+ -------+| ?60-89 ?| ?Stage two ?| ? Decreased GFR ? + --+ --+ ------+| ?30-59 ?| ?Stage three ?| ? Stage three ? + --+ --+ ------+| ?15-29 ?| ?Stage four ? | ? Stage four ?+ ---+ ---+ -------+| ?<15 (or dialysis) ? ?| ?Stage five ? | ? Stage five ?+ ---+ ---+ -------+ *Each stage assumes the associated GFR level has been in effect for at least three months. ?Stages 1 to 5, with or without kidney disease, indicate chronic kidney disease. Notes: Determination of stages one and two (with eGFR >59mL/min/1.73 m2) requires estimation of kidney damage for at least three months as defined by structural or functional abnormalities of the kidney, manifested by either:Pathological abnormalities or Markers of kidney damage (including abnormalities in the composition of the blood or urine or abnormalities in imaging tests). Lab Interpretation Abnormal (test code = 42170-6) [facility] WITH [id number] 09:17:24 Test Item Value Reference Range Interpretation Comments WBC (test code = See_Comment [Automated 1590-2) message] The sy stem which generated this result transmitted reference range : 4.20 - 10.70 10*3/?L. The reference range was not used to interpret this result as normal/abnormal . RBC (test code = See_Comment L [Automated 789-8) message] The sy stem which generated this result transmitted reference range : 4.26 - 5.52 10*6/?L. The reference range was not used to interpret this result as normal/abnormal . HGB (test code = 10.4 g/dL 12.2-16.4 L 718-7) HCT (test code = 30.8 % 38.4-49.3 L 4544-3) MCV (test code = 92.2 fL 81.7-95.6 787-2) MCH (test code = 31.1 pg 26.1-32.7 785-6) MCHC (test code = 33.8 g/dL 31.2-35.0 786-4) RDW-SD (test code = 47.7 fL 38.5-51.6 99519-5) RDW-CV (test code = 14.3 % 12.1-15.4 788-0) PLT (test code = See_Comment [Automated 777-3) message] The sy stem which generated this result transmitted reference range : 150 - 328 10*3/ ?L. The reference r maxi was not used to interpret this result as normal/abnormal . MPV (test code = 10.0 fL 9.8-13.0 71030-3) NRBC/100 WBC (test See_Comment [Automat ed code = 4722910622) message] The system which generated this result transmitted reference range : 0.0 - 10.0 /100 WBCs. The refer ence range was not u sed to interpret th is result as normal/abnormal . NRBC x10^3 (test code See_Comment [Auto mated = 8729157543) message] The s ystem which generated this result transmitted reference range : 10*3/?L. The reference range was not used to interpret this result as normal/abnormal . GRAN MAT (NEUT) % 55.8 % (test code = 770-8) IMM GRAN % (test code 4.10 % = 2451497802) LYMPH % (test code = 30.1 % 736-9) MONO % (test code = 7.1 % 5905-5) EOS % (test code = 2.7 % 713-8) BASO % (test code = 0.2 % 706-2) GRAN MAT x10^3(ANC) 5.15 10*3/uL 1.99-6.95 (test code = 6087822994) IMM GRAN x10^3 (test 0.38 10*3/uL 0.00-0.06 H code = 5619275936) LYMPH x10^3 (test code 2.78 10*3/uL 1.09-3.23 = 731-0) MONO x10^3 (test code 0.66 10*3/uL 0.36-1.02 = 742-7) EOS x10^3 (test code = 0.25 10*3/uL 0.06-0.53 711-2) BASO x10^3 (test code 0.01-0.09 = 704-7) TOXIC CHANGES (test Present A code = 803-7) Lab Interpretation Abnormal (test code = 33255-8) [facility] WITH [id number] 09:17:24 Test Item Value Reference Range Interpretation Comments WBC (test code = See_Comment [Automated 6690-2) message] The sy stem which generated this result transmitted reference range : 4.20 - 10.70 10*3/?L. The reference range was not used to interpret this result as normal/abnormal . RBC (test code = See_Comment L [Automated 789-8) message] The sy stem which generated this result transmitted reference range : 4.26 - 5.52 10*6/?L. The reference range was not used to interpret this result as normal/abnormal . HGB (test code = 10.4 g/dL 12.2-16.4 L 718-7) HCT (test code = 30.8 % 38.4-49.3 L 4544-3) MCV (test code = 92.2 fL 81.7-95.6 787-2) MCH (test code = 31.1 pg 26.1-32.7 785-6) MCHC (test code = 33.8 g/dL 31.2-35.0 786-4) RDW-SD (test code = 47.7 fL 38.5-51.6 29221-6) RDW-CV (test code = 14.3 % 12.1-15.4 788-0) PLT (test code = See_Comment [Automated 777-3) message] The sy stem which generated this result transmitted reference range : 150 - 328 10*3/ ?L. The reference r maxi was not used to interpret this result as normal/abnormal . MPV (test code = 10.0 fL 9.8-13.0 09606-1) NRBC/100 WBC (test See_Comment [Automat ed code = 9642656086) message] The system which generated this result transmitted reference range : 0.0 - 10.0 /100 WBCs. The refer ence range was not u sed to interpret th is result as normal/abnormal . NRBC x10^3 (test code See_Comment [Auto mated = 4943982898) message] The s ystem which generated this result transmitted reference range : 10*3/?L. The reference range was not used to interpret this result as normal/abnormal . GRAN MAT (NEUT) % 55.8 % (test code = 770-8) IMM GRAN % (test code 4.10 % = 6245278668) LYMPH % (test code = 30.1 % 736-9) MONO % (test code = 7.1 % 5905-5) EOS % (test code = 2.7 % 713-8) BASO % (test code = 0.2 % 706-2) GRAN MAT x10^3(ANC) 5.15 10*3/uL 1.99-6.95 (test code = 9247572810) IMM GRAN x10^3 (test 0.38 10*3/uL 0.00-0.06 H code = 2484047500) LYMPH x10^3 (test code 2.78 10*3/uL 1.09-3.23 = 731-0) MONO x10^3 (test code 0.66 10*3/uL 0.36-1.02 = 742-7) EOS x10^3 (test code = 0.25 10*3/uL 0.06-0.53 711-2) BASO x10^3 (test code 0.01-0.09 = 704-7) TOXIC CHANGES (test Present A code = 803-7) Lab Interpretation Abnormal (test code = 70858-1) [facility] GLUCOSE (AUTOMATED)2022-02-18 01:16:25 Test Item Value Reference Range Interpretation Comments POCT GLU (test code = 9342530943) 170 mg/dL 70-110 H Lab Interpretation (test code = Abnormal 15067-2) [facility] GLUCOSE (AUTOMATED)2022-02-18 01:16:25 Test Item Value Reference Range Interpretation Comments POCT GLU (test code = 5332421861) 170 mg/dL 70-110 H Lab Interpretation (test code = Abnormal 64280-8) [facility] GLUCOSE (AUTOMATED)2022-02-17 21:45:32 Test Item Value Reference Range Interpretation Comments POCT GLU (test code = 2897407145) 117 mg/dL 70-110 H Lab Interpretation (test code = Abnormal 82669-4) [facility] GLUCOSE (AUTOMATED)2022-02-17 21:45:32 Test Item Value Reference Range Interpretation Comments POCT GLU (test code = 8831058344) 117 mg/dL 70-110 H Lab Interpretation (test code = Abnormal 02509-8) [facility] Test Item Value Reference Range Interpretation Comments APTT Patient (test code See_Comment H [Au tomated message] = 3173-2) The system Andela generated this result transmitted ref erence range: 26 - 36 Seconds. The reference range was not used to int erpret this result as normal/abnormal . Lab Interpretation (test Abnormal code = 40852-3) [facility]:10:58 Test Item Value Reference Range Interpretation Comments APTT Patient (test code See_Comment H [Au tomated message] = 3173-2) The system Andela generated this result transmitted ref erence range: 26 - 36 Seconds. The reference range was not used to int erpret this result as normal/abnormal . Lab Interpretation (test Abnormal code = 49486-5) [facility] GLUCOSE (AUTOMATED)2022-02-17 13:01:31 Test Item Value Reference Range Interpretation Comments POCT GLU (test code = 4413365193) 83 mg/dL 70-110 Lab Interpretation (test code = Normal 84162-3) [facility] GLUCOSE (AUTOMATED)2022-02-17 13:01:31 Test Item Value Reference Range Interpretation Comments POCT GLU (test code = 7622068366) 83 mg/dL 70-110 Lab Interpretation (test code = Normal 28023-5) [facility] WITH [id number] 09:49:28 Test Item Value Reference Range Interpretation Comments WBC (test code = See_Comment [Automated 6690-2) message] The sy stem which generated this result transmitted reference range : 4.20 - 10.70 10*3/?L. The reference range was not used to interpret this result as normal/abnormal . RBC (test code = See_Comment L [Automated 789-8) message] The sy stem which generated this result transmitted reference range : 4.26 - 5.52 10*6/?L. The reference range was not used to interpret this result as normal/abnormal . HGB (test code = 9.8 g/dL 12.2-16.4 L 718-7) HCT (test code = 28.8 % 38.4-49.3 L 4544-3) MCV (test code = 91.1 fL 81.7-95.6 787-2) MCH (test code = 31.0 pg 26.1-32.7 785-6) MCHC (test code = 34.0 g/dL 31.2-35.0 786-4) RDW-SD (test code = 48.0 fL 38.5-51.6 18633-3) RDW-CV (test code = 14.4 % 12.1-15.4 788-0) PLT (test code = See_Comment [Automated 777-3) message] The sy stem which generated this result transmitted reference range : 150 - 328 10*3/ ?L. The reference r maxi was not used to interpret this result as normal/abnormal . MPV (test code = 10.1 fL 9.8-13.0 80079-8) NRBC/100 WBC (test See_Comment [Automat ed code = 5074282183) message] The system which generated this result transmitted reference range : 0.0 - 10.0 /100 WBCs. The refer ence range was not u sed to interpret th is result as normal/abnormal . NRBC x10^3 (test code See_Comment [Auto mated = 0380325626) message] The s ystem which generated this result transmitted reference range : 10*3/?L. The reference range was not used to interpret this result as normal/abnormal . SEG % (test code = 60 % 33-76 68301-2) MYELO % (test code = 5 % See_Comment H [Autom ated 28838-0) message] The sy stem which generated this result transmitted reference range : <=0. The refere nce range was not u sed to interpret th is result as normal/abnormal . LYMPH % (test code = 17 % 14-54 82908-8) LG GRAN LYMPH % (test 9 % See_Comment H [Auto mated code = 94580-3) message] The system which generated this result transmitted reference range : <=0. The refere nce range was not u sed to interpret th is result as normal/abnormal . MONO % (test code = 7 % 0-4 H 73664-1) EOS % (test code = 2 % 0-3 62772-5) ANC (test code = 6.32 10*3/uL 1.99-6.95 753-4) TOXIC CHANGES (test Present A code = 803-7) Lab Interpretation Abnormal (test code = 53864-8[facility] WITH [id number] 09:49:28 Test Item Value Reference Range Interpretation Comments WBC (test code = See_Comment [Automated 6690-2) message] The sy stem which generated this result transmitted reference range : 4.20 - 10.70 10*3/?L. The reference range was not used to interpret this result as normal/abnormal . RBC (test code = See_Comment L [Automated 789-8) message] The sy stem which generated this result transmitted reference range : 4.26 - 5.52 10*6/?L. The reference range was not used to interpret this result as normal/abnormal . HGB (test code = 9.8 g/dL 12.2-16.4 L 718-7) HCT (test code = 28.8 % 38.4-49.3 L 4544-3) MCV (test code = 91.1 fL 81.7-95.6 787-2) MCH (test code = 31.0 pg 26.1-32.7 785-6) MCHC (test code = 34.0 g/dL 31.2-35.0 786-4) RDW-SD (test code = 48.0 fL 38.5-51.6 79944-8) RDW-CV (test code = 14.4 % 12.1-15.4 788-0) PLT (test code = See_Comment [Automated 777-3) message] The sy stem which generated this result transmitted reference range : 150 - 328 10*3/ ?L. The reference r maxi was not used to interpret this result as normal/abnormal . MPV (test code = 10.1 fL 9.8-13.0 03597-4) NRBC/100 WBC (test See_Comment [Automat ed code = 2628735323) message] The system which generated this result transmitted reference range : 0.0 - 10.0 /100 WBCs. The refer ence range was not u sed to interpret th is result as normal/abnormal . NRBC x10^3 (test code See_Comment [Auto mated = 8973875299) message] The s ystem which generated this result transmitted reference range : 10*3/?L. The reference range was not used to interpret this result as normal/abnormal . SEG % (test code = 60 % 33-76 44530-2) MYELO % (test code = 5 % See_Comment H [Autom ated 71489-1) message] The sy stem which generated this result transmitted reference range : <=0. The refere nce range was not u sed to interpret th is result as normal/abnormal . LYMPH % (test code = 17 % 14-54 53937-8) LG GRAN LYMPH % (test 9 % See_Comment H [Auto mated code = 40700-2) message] The system which generated this result transmitted reference range : <=0. The refere nce range was not u sed to interpret th is result as normal/abnormal . MONO % (test code = 7 % 0-4 H 13105-7) EOS % (test code = 2 % 0-3 73779-4) ANC (test code = 6.32 10*3/uL 1.99-6.95 753-4) TOXIC CHANGES (test Present A code = 803-7) Lab Interpretation Abnormal (test code = 99265-3) [facility] METABOLIC PANEL (NA, K, CL, CO2, GLUCOSE, BUN, CREATININE, CA)2022-02-17 09:47:07 Test Item Value Reference Range Interpretation Comments NA (test code = 130 mmol/L 135-145 L 2182946704) K (test code = 4.5 mmol/L 3.5-5.0 5519796591) CL (test code = 103 mmol/L 98-108 9926656849) CO2 TOTAL (test code = 26 mmol/L 23-31 1681759384) AGAP (test code = 2-16 L 5660556488) BUN (test code = 58 mg/dL 7-23 H 8664107380) GLUCOSE (test code = 92 mg/dL 70-110 1768617620) CREATININE (test code = 1.55 mg/dL 0.60-1.25 H 0533960424) CALCIUM (test code = 7.8 mg/dL 8.6-10.6 L 6695035010) eGFR (test code = mL/min/1.73m2 4935001954) JUAN (test code = JUAN) Association of Glomerular Filtration Rate (GFR) and Staging of Kidney Disease* + --+ --+ ------+| GFR (mL/min/1.73 m2) ?| With Kidney Damage ?| ?Without Kidney Damage+ --------+ --------+ +| ?>90 ?| ?Stage one ?| ? Normal ?+ ---+ ---+ -------+| ?60-89 ?| ?Stage two ?| ? Decreased GFR ? + --+ --+ ------+| ?30-59 ?| ?Stage three ?| ? Stage three ? + --+ --+ ------+| ?15-29 ?| ?Stage four ? | ? Stage four ?+ ---+ ---+ -------+| ?<15 (or dialysis) ? ?| ?Stage five ? | ? Stage five ?+ ---+ ---+ -------+ *Each stage assumes the associated GFR level has been in effect for at least three months. ?Stages 1 to 5, with or without kidney disease, indicate chronic kidney disease. Notes: Determination of stages one and two (with eGFR >59mL/min/1.73 m2) requires estimation of kidney damage for at least three months as defined by structural or functional abnormalities of the kidney, manifested by either:Pathological abnormalities or Markers of kidney damage (including abnormalities in the composition of the blood or urine or abnormalities in imaging tests). Lab Interpretation Abnormal (test code = 99071-3) [facility] Test Item Value Reference Range Interpretation Comments MAGNESIUM (test code = 3405659343) 2.2 mg/dL 1.7-2.4 Lab Interpretation (test code = Normal 01784-3) [facility] (NA, K, CL, CO2, GLUCOSE, BUN, CREATININE, CA)2022-02-17 09:47:07 Test Item Value Reference Range Interpretation Comments NA (test code = 130 mmol/L 135-145 L 5629479679) K (test code = 4.5 mmol/L 3.5-5.0 1438488816) CL (test code = 103 mmol/L 98-108 8275420717) CO2 TOTAL (test code = 26 mmol/L 23-31 4455926460) AGAP (test code = 2-16 L 0587847610) BUN (test code = 58 mg/dL 7-23 H 2166303064) GLUCOSE (test code = 92 mg/dL 70-110 0402039415) CREATININE (test code = 1.55 mg/dL 0.60-1.25 H 8285947563) CALCIUM (test code = 7.8 mg/dL 8.6-10.6 L 0762341906) eGFR (test code = mL/min/1.73m2 4581780593) JUAN (test code = JUAN) Association of Glomerular Filtration Rate (GFR) and Staging of Kidney Disease* + --+ --+ ------+| GFR (mL/min/1.73 m2) ?| With Kidney Damage ?| ?Without Kidney Damage+ --------+ --------+ +| ?>90 ?| ?Stage one ?| ? Normal ?+ ---+ ---+ -------+| ?60-89 ?| ?Stage two ?| ? Decreased GFR ? + --+ --+ ------+| ?30-59 ?| ?Stage three ?| ? Stage three ? + --+ --+ ------+| ?15-29 ?| ?Stage four ? | ? Stage four ?+ ---+ ---+ -------+| ?<15 (or dialysis) ? ?| ?Stage five ? | ? Stage five ?+ ---+ ---+ -------+ *Each stage assumes the associated GFR level has been in effect for at least three months. ?Stages 1 to 5, with or without kidney disease, indicate chronic kidney disease. Notes: Determination of stages one and two (with eGFR >59mL/min/1.73 m2) requires estimation of kidney damage for at least three months as defined by structural or functional abnormalities of the kidney, manifested by either:Pathological abnormalities or Markers of kidney damage (including abnormalities in the composition of the blood or urine or abnormalities in imaging tests). Lab Interpretation Abnormal (test code = 60782-1) [facility]:47:07 Test Item Value Reference Range Interpretation Comments MAGNESIUM (test code = 6271163412) 2.2 mg/dL 1.7-2.4 Lab Interpretation (test code = Normal 02452-2) [facility] (NA, K, CL, CO2, GLUCOSE, BUN, CREATININE, CA)2022-02-17 01:31:26 Test Item Value Reference Range Interpretation Comments NA (test code = 128 mmol/L 135-145 L 0500040039) K (test code = 4.7 mmol/L 3.5-5.0 1020818143) CL (test code = 100 mmol/L 98-108 0946898742) CO2 TOTAL (test code = 26 mmol/L 23-31 6832722317) AGAP (test code = 2-16 1071141157) BUN (test code = 61 mg/dL 7-23 H 0896185077) GLUCOSE (test code = 129 mg/dL 70-110 H 0161797547) CREATININE (test code = 1.73 mg/dL 0.60-1.25 H 4807395857) CALCIUM (test code = 7.8 mg/dL 8.6-10.6 L 1306266623) eGFR (test code = mL/min/1.73m2 5183319529) JUAN (test code = JUAN) Association of Glomerular Filtration Rate (GFR) and Staging of Kidney Disease* + --+ --+ ------+| GFR (mL/min/1.73 m2) ?| With Kidney Damage ?| ?Without Kidney Damage+ --------+ --------+ +| ?>90 ?| ?Stage one ?| ? Normal ?+ ---+ ---+ -------+| ?60-89 ?| ?Stage two ?| ? Decreased GFR ? + --+ --+ ------+| ?30-59 ?| ?Stage three ?| ? Stage three ? + --+ --+ ------+| ?15-29 ?| ?Stage four ? | ? Stage four ?+ ---+ ---+ -------+| ?<15 (or dialysis) ? ?| ?Stage five ? | ? Stage five ?+ ---+ ---+ -------+ *Each stage assumes the associated GFR level has been in effect for at least three months. ?Stages 1 to 5, with or without kidney disease, indicate chronic kidney disease. Notes: Determination of stages one and two (with eGFR >59mL/min/1.73 m2) requires estimation of kidney damage for at least three months as defined by structural or functional abnormalities of the kidney, manifested by either:Pathological abnormalities or Markers of kidney damage (including abnormalities in the composition of the blood or urine or abnormalities in imaging tests). Lab Interpretation Abnormal (test code = 19875-8) [facility] METABOLIC PANEL (NA, K, CL, CO2, GLUCOSE, BUN, CREATININE, CA)2022-02-17 01:31:26 Test Item Value Reference Range Interpretation Comments NA (test code = 128 mmol/L 135-145 L 6044866484) K (test code = 4.7 mmol/L 3.5-5.0 3533219622) CL (test code = 100 mmol/L 98-108 2307133492) CO2 TOTAL (test code = 26 mmol/L 23-31 7299695938) AGAP (test code = 2-16 4276837439) BUN (test code = 61 mg/dL 7-23 H 1688789934) GLUCOSE (test code = 129 mg/dL 70-110 H 0541950513) CREATININE (test code = 1.73 mg/dL 0.60-1.25 H 1905663597) CALCIUM (test code = 7.8 mg/dL 8.6-10.6 L 5184199992) eGFR (test code = mL/min/1.73m2 0754447297) JUAN (test code = JUAN) Association of Glomerular Filtration Rate (GFR) and Staging of Kidney Disease* + --+ --+ ------+| GFR (mL/min/1.73 m2) ?| With Kidney Damage ?| ?Without Kidney Damage+ --------+ --------+ +| ?>90 ?| ?Stage one ?| ? Normal ?+ ---+ ---+ -------+| ?60-89 ?| ?Stage two ?| ? Decreased GFR ? + --+ --+ ------+| ?30-59 ?| ?Stage three ?| ? Stage three ? + --+ --+ ------+| ?15-29 ?| ?Stage four ? | ? Stage four ?+ ---+ ---+ -------+| ?<15 (or dialysis) ? ?| ?Stage five ? | ? Stage five ?+ ---+ ---+ -------+ *Each stage assumes the associated GFR level has been in effect for at least three months. ?Stages 1 to 5, with or without kidney disease, indicate chronic kidney disease. Notes: Determination of stages one and two (with eGFR >59mL/min/1.73 m2) requires estimation of kidney damage for at least three months as defined by structural or functional abnormalities of the kidney, manifested by either:Pathological abnormalities or Markers of kidney damage (including abnormalities in the composition of the blood or urine or abnormalities in imaging tests). Lab Interpretation Abnormal (test code = 66219-1) [facility] [id number] 01:27:27 Test Item Value Reference Range Interpretation Comments APTT Patient (test code See_Comment H [Au tomated message] = 3173-2) The system Andela generated this result transmitted ref erence range: 26 - 36 Seconds. The reference range was not used to int erpret this result as normal/abnormal . Lab Interpretation (test Abnormal code = 18497-1) [facility] PARTIAL THRMPLAS [id number] 01:27:27 Test Item Value Reference Range Interpretation Comments APTT Patient (test code See_Comment H [Au tomated message] = 3173-2) The system Andela generated this result transmitted ref erence range: 26 - 36 Seconds. The reference range was not used to int erpret this result as normal/abnormal . Lab Interpretation (test Abnormal code = 09149-9) [facility] GLUCOSE (AUTOMATED)2022-02-17 01:02:53 Test Item Value Reference Range Interpretation Comments POCT GLU (test code = 4846990391) 130 mg/dL 70-110 H Lab Interpretation (test code = Abnormal 67413-5) [facility] GLUCOSE (AUTOMATED)2022-02-17 01:02:53 Test Item Value Reference Range Interpretation Comments POCT GLU (test code = 7953360978) 130 mg/dL 70-110 H Lab Interpretation (test code = Abnormal 86789-9) [facility] GLUCOSE (AUTOMATED)2022-02-16 21:30:00 Test Item Value Reference Range Interpretation Comments POCT GLU (test code = 2165866175) 125 mg/dL 70-110 H Lab Interpretation (test code = Abnormal 81692-8) [facility] GLUCOSE (AUTOMATED)2022-02-16 21:30:00 Test Item Value Reference Range Interpretation Comments POCT GLU (test code = 6678708487) 125 mg/dL 70-110 H Lab Interpretation (test code = Abnormal 96733-2) [facility] [id number] 18:47:50 Test Item Value Reference Interpretation Comments Range TROPONIN I (test 17.600 ng/mL See_Comment H [Automated code = 9580664913) message] The system which generated this result transmitted reference range : <=0.034. The reference range was not used to interpret this result as normal/abnormal . JUAN (test code = Reference (Normal) JUAN) Range (defined by the 99th percentile reference limit): <= 0.034 ng/mL Note: Cardiac troponin begins to rise 3-4 hours after the onset of ischemia. Repeat in 4-6 hours if the sample was drawn within 3-4 hours of the onset of the symptom and found normal. Diagnosis of myocardial injury is made with acute changes in cTn concentrations with at least one serial sample above the 99th percentile upper reference limit (URL), taken together with the patient's clinical presentation. Biotin has been reported to cause a negative bias, interpret results relative to patient's use of biotin. Lab Interpretation Abnormal (test code = 52303-2) [facility] [id number] 18:47:50 Test Item Value Reference Interpretation Comments Range TROPONIN I (test 17.600 ng/mL See_Comment H [Automated code = 4056579369) message] The system which generated this result transmitted reference range : <=0.034. The reference range was not used to interpret this result as normal/abnormal . JUAN (test code = Reference (Normal) JUAN) Range (defined by the 99th percentile reference limit): <= 0.034 ng/mL Note: Cardiac troponin begins to rise 3-4 hours after the onset of ischemia. Repeat in 4-6 hours if the sample was drawn within 3-4 hours of the onset of the symptom and found normal. Diagnosis of myocardial injury is made with acute changes in cTn concentrations with at least one serial sample above the 99th percentile upper reference limit (URL), taken together with the patient's clinical presentation. Biotin has been reported to cause a negative bias, interpret results relative to patient's use of biotin. Lab Interpretation Abnormal (test code = 90119-6) [facility] METABOLIC PANEL (NA, K, CL, CO2, GLUCOSE, BUN, CREATININE, CA)2022-02-16 18:35:51 Test Item Value Reference Range Interpretation Comments NA (test code = 129 mmol/L 135-145 L 1075901358) K (test code = 4.8 mmol/L 3.5-5.0 5388409791) CL (test code = 100 mmol/L 98-108 6240213872) CO2 TOTAL (test code = 27 mmol/L 23-31 3615351606) AGAP (test code = 2-16 8329008343) BUN (test code = 62 mg/dL 7-23 H 4520650195) GLUCOSE (test code = 121 mg/dL 70-110 H 9427162825) CREATININE (test code = 1.62 mg/dL 0.60-1.25 H 7273304982) CALCIUM (test code = 8.0 mg/dL 8.6-10.6 L 5362891043) eGFR (test code = mL/min/1.73m2 9358056382) JUAN (test code = JUAN) Association of Glomerular Filtration Rate (GFR) and Staging of Kidney Disease* + --+ --+ ------+| GFR (mL/min/1.73 m2) ?| With Kidney Damage ?| ?Without Kidney Damage+ --------+ --------+ +| ?>90 ?| ?Stage one ?| ? Normal ?+ ---+ ---+ -------+| ?60-89 ?| ?Stage two ?| ? Decreased GFR ? + --+ --+ ------+| ?30-59 ?| ?Stage three ?| ? Stage three ? + --+ --+ ------+| ?15-29 ?| ?Stage four ? | ? Stage four ?+ ---+ ---+ -------+| ?<15 (or dialysis) ? ?| ?Stage five ? | ? Stage five ?+ ---+ ---+ -------+ *Each stage assumes the associated GFR level has been in effect for at least three months. ?Stages 1 to 5, with or without kidney disease, indicate chronic kidney disease. Notes: Determination of stages one and two (with eGFR >59mL/min/1.73 m2) requires estimation of kidney damage for at least three months as defined by structural or functional abnormalities of the kidney, manifested by either:Pathological abnormalities or Markers of kidney damage (including abnormalities in the composition of the blood or urine or abnormalities in imaging tests). Lab Interpretation Abnormal (test code = 49618-1) [facility] METABOLIC PANEL (NA, K, CL, CO2, GLUCOSE, BUN, CREATININE, CA)2022-02-16 18:35:51 Test Item Value Reference Range Interpretation Comments NA (test code = 129 mmol/L 135-145 L 3884930987) K (test code = 4.8 mmol/L 3.5-5.0 2728876186) CL (test code = 100 mmol/L 98-108 7585201848) CO2 TOTAL (test code = 27 mmol/L 23-31 4274493860) AGAP (test code = 2-16 0073761415) BUN (test code = 62 mg/dL 7-23 H 3960784656) GLUCOSE (test code = 121 mg/dL 70-110 H 6868580723) CREATININE (test code = 1.62 mg/dL 0.60-1.25 H 0960680050) CALCIUM (test code = 8.0 mg/dL 8.6-10.6 L 2584893613) eGFR (test code = mL/min/1.73m2 5504388911) JUAN (test code = JUAN) Association of Glomerular Filtration Rate (GFR) and Staging of Kidney Disease* + --+ --+ ------+| GFR (mL/min/1.73 m2) ?| With Kidney Damage ?| ?Without Kidney Damage+ --------+ --------+ +| ?>90 ?| ?Stage one ?| ? Normal ?+ ---+ ---+ -------+| ?60-89 ?| ?Stage two ?| ? Decreased GFR ? + --+ --+ ------+| ?30-59 ?| ?Stage three ?| ? Stage three ? + --+ --+ ------+| ?15-29 ?| ?Stage four ? | ? Stage four ?+ ---+ ---+ -------+| ?<15 (or dialysis) ? ?| ?Stage five ? | ? Stage five ?+ ---+ ---+ -------+ *Each stage assumes the associated GFR level has been in effect for at least three months. ?Stages 1 to 5, with or without kidney disease, indicate chronic kidney disease. Notes: Determination of stages one and two (with eGFR >59mL/min/1.73 m2) requires estimation of kidney damage for at least three months as defined by structural or functional abnormalities of the kidney, manifested by either:Pathological abnormalities or Markers of kidney damage (including abnormalities in the composition of the blood or urine or abnormalities in imaging tests). Lab Interpretation Abnormal (test code = 18663-8) [facility] GLUCOSE (AUTOMATED)2022-02-16 16:35:47 Test Item Value Reference Range Interpretation Comments POCT GLU (test code = 1148221141) 163 mg/dL 70-110 H Lab Interpretation (test code = Abnormal 23785-5) [facility] GLUCOSE (AUTOMATED)2022-02-16 16:35:47 Test Item Value Reference Range Interpretation Comments POCT GLU (test code = 6093802574) 163 mg/dL 70-110 H Lab Interpretation (test code = Abnormal 57285-7) [facility]:01 Test Item Value Reference Range Interpretation Comments APTT Patient (test code See_Comment H [Au tomated message] = 3173-2) The system Andela generated this result transmitted ref erence range: 26 - 36 Seconds. The reference range was not used to int erpret this result as normal/abnormal . Lab Interpretation (test Abnormal code = 10422-5) [facility]16 14:04:01 Test Item Value Reference Range Interpretation Comments APTT Patient (test code See_Comment H [Au tomated message] = 3173-2) The system Andela generated this result transmitted ref erence range: 26 - 36 Seconds. The reference range was not used to int erpret this result as normal/abnormal . Lab Interpretation (test Abnormal code = 14585-5) [facility] GLUCOSE (AUTOMATED)2022-02-16 13:18:42 Test Item Value Reference Range Interpretation Comments POCT GLU (test code = 9686025298) 108 mg/dL 70-110 Lab Interpretation (test code = Normal 10816-8) [facility]22-[facility]-16 13:18:42 Test Item Value Reference Range Interpretation Comments POCT GLU (test code = 3286963734) 108 mg/dL 70-110 Lab Interpretation (test code = Normal 51556-2) [facility] [id number] 07:40:53 Test Item Value Reference Interpretation Comments Range TROPONIN I (test 27.000 ng/mL See_Comment H [Automated code = 9221111352) message] The system which generated this result transmitted reference range : <=0.034. The reference range was not used to interpret this result as normal/abnormal . JUAN (test code = Reference (Normal) JUAN) Range (defined by the 99th percentile reference limit): <= 0.034 ng/mL Note: Cardiac troponin begins to rise 3-4 hours after the onset of ischemia. Repeat in 4-6 hours if the sample was drawn within 3-4 hours of the onset of the symptom and found normal. Diagnosis of myocardial injury is made with acute changes in cTn concentrations with at least one serial sample above the 99th percentile upper reference limit (URL), taken together with the patient's clinical presentation. Biotin has been reported to cause a negative bias, interpret results relative to patient's use of biotin. Lab Interpretation Abnormal (test code = 19219-5) [facility] [id number] 07:40:53 Test Item Value Reference Interpretation Comments Range TROPONIN I (test 27.000 ng/mL See_Comment H [Automated code = 7030213731) message] The system which generated this result transmitted reference range : <=0.034. The reference range was not used to interpret this result as normal/abnormal . JUAN (test code = Reference (Normal) JUAN) Range (defined by the 99th percentile reference limit): <= 0.034 ng/mL Note: Cardiac troponin begins to rise 3-4 hours after the onset of ischemia. Repeat in 4-6 hours if the sample was drawn within 3-4 hours of the onset of the symptom and found normal. Diagnosis of myocardial injury is made with acute changes in cTn concentrations with at least one serial sample above the 99th percentile upper reference limit (URL), taken together with the patient's clinical presentation. Biotin has been reported to cause a negative bias, interpret results relative to patient's use of biotin. Lab Interpretation Abnormal (test code = 53231-8) [facility] METABOLIC PANEL (NA, K, CL, CO2, GLUCOSE, BUN, CREATININE, CA)2022-02-16 07:32:56 Test Item Value Reference Range Interpretation Comments NA (test code = 129 mmol/L 135-145 L 4694080860) K (test code = 4.8 mmol/L 3.5-5.0 3621427223) CL (test code = 99 mmol/L 98-108 0467366318) CO2 TOTAL (test code = 28 mmol/L 23-31 7772200279) AGAP (test code = 2-16 5281053816) BUN (test code = 60 mg/dL 7-23 H 6789061335) GLUCOSE (test code = 124 mg/dL 70-110 H 9389422709) CREATININE (test code = 1.96 mg/dL 0.60-1.25 H 0864240657) CALCIUM (test code = 8.2 mg/dL 8.6-10.6 L 4618394986) eGFR (test code = mL/min/1.73m2 4588999116) JUAN (test code = JUAN) Association of Glomerular Filtration Rate (GFR) and Staging of Kidney Disease* + --+ --+ ------+| GFR (mL/min/1.73 m2) ?| With Kidney Damage ?| ?Without Kidney Damage+ --------+ --------+ +| ?>90 ?| ?Stage one ?| ? Normal ?+ ---+ ---+ -------+| ?60-89 ?| ?Stage two ?| ? Decreased GFR ? + --+ --+ ------+| ?30-59 ?| ?Stage three ?| ? Stage three ? + --+ --+ ------+| ?15-29 ?| ?Stage four ? | ? Stage four ?+ ---+ ---+ -------+| ?<15 (or dialysis) ? ?| ?Stage five ? | ? Stage five ?+ ---+ ---+ -------+ *Each stage assumes the associated GFR level has been in effect for at least three months. ?Stages 1 to 5, with or without kidney disease, indicate chronic kidney disease. Notes: Determination of stages one and two (with eGFR >59mL/min/1.73 m2) requires estimation of kidney damage for at least three months as defined by structural or functional abnormalities of the kidney, manifested by either:Pathological abnormalities or Markers of kidney damage (including abnormalities in the composition of the blood or urine or abnormalities in imaging tests). Lab Interpretation Abnormal (test code = 25562-7) [facility] METABOLIC PANEL (NA, K, CL, CO2, GLUCOSE, BUN, CREATININE, CA)2022-02-16 07:32:56 Test Item Value Reference Range Interpretation Comments NA (test code = 129 mmol/L 135-145 L 6075002371) K (test code = 4.8 mmol/L 3.5-5.0 0167873605) CL (test code = 99 mmol/L 98-108 7374553409) CO2 TOTAL (test code = 28 mmol/L 23-31 0717906139) AGAP (test code = 2-16 3405290474) BUN (test code = 60 mg/dL 7-23 H 7690777274) GLUCOSE (test code = 124 mg/dL 70-110 H 5979267122) CREATININE (test code = 1.96 mg/dL 0.60-1.25 H 5826445338) CALCIUM (test code = 8.2 mg/dL 8.6-10.6 L 8466573550) eGFR (test code = mL/min/1.73m2 4630683618) JUAN (test code = JUAN) Association of Glomerular Filtration Rate (GFR) and Staging of Kidney Disease* + --+ --+ ------+| GFR (mL/min/1.73 m2) ?| With Kidney Damage ?| ?Without Kidney Damage+ --------+ --------+ +| ?>90 ?| ?Stage one ?| ? Normal ?+ ---+ ---+ -------+| ?60-89 ?| ?Stage two ?| ? Decreased GFR ? + --+ --+ ------+| ?30-59 ?| ?Stage three ?| ? Stage three ? + --+ --+ ------+| ?15-29 ?| ?Stage four ? | ? Stage four ?+ ---+ ---+ -------+| ?<15 (or dialysis) ? ?| ?Stage five ? | ? Stage five ?+ ---+ ---+ -------+ *Each stage assumes the associated GFR level has been in effect for at least three months. ?Stages 1 to 5, with or without kidney disease, indicate chronic kidney disease. Notes: Determination of stages one and two (with eGFR >59mL/min/1.73 m2) requires estimation of kidney damage for at least three months as defined by structural or functional abnormalities of the kidney, manifested by either:Pathological abnormalities or Markers of kidney damage (including abnormalities in the composition of the blood or urine or abnormalities in imaging tests). Lab Interpretation Abnormal (test code = 21199-2) [facility]09 Test Item Value Reference Range Interpretation Comments MAGNESIUM (test code = 1960129574) 2.3 mg/dL 1.7-2.4 Lab Interpretation (test code = Normal 87922-3) [facility] 07:29:09 Test Item Value Reference Range Interpretation Comments PHOSPHORUS (test code = 9580654140) 3.4 mg/dL 2.5-5.0 Lab Interpretation (test code = Normal 11879-7) [facility] 07:29:09 Test Item Value Reference Range Interpretation Comments MAGNESIUM (test code = 6083179136) 2.3 mg/dL 1.7-2.4 Lab Interpretation (test code = Normal 49249-0) [facility] 07:29:09 Test Item Value Reference Range Interpretation Comments PHOSPHORUS (test code = 6561680110) 3.4 mg/dL 2.5-5.0 Lab Interpretation (test code = Normal 95109-9) [facility] [id number] 07:00:47 Test Item Value Reference Range Interpretation Comments APTT Patient (test code See_Comment H [Au tomated message] = 3173-2) The system Andela generated this result transmitted ref erence range: 26 - 36 Seconds. The reference range was not used to int erpret this result as normal/abnormal . Lab Interpretation (test Abnormal code = 14461-7) [facility] [id number] 07:00:47 Test Item Value Reference Range Interpretation Comments APTT Patient (test code See_Comment H [Au tomated message] = 3173-2) The system ic [employer] generated this result transmitted ref erence range: 26 - 36 Seconds. The reference range was not used to int erpret this result as normal/abnormal . Lab Interpretation (test Abnormal code = 56237-0) [facility] [id number] 06:45:45 Test Item Value Reference Range Interpretation Comments WBC (test code = See_Comment H [Automated 9490-2) message] The system which generated this result transmit josh reference range : 4.20 - 10.70 10*3/?L. The reference range was not used to interpret this result as normal/abnormal . RBC (test code = See_Comment L [Automated 789-8) message] The system which generated this result transmit josh reference range : 4.26 - 5.52 10*6/?L. The reference range was not used to interpret this result as normal/abnormal . HGB (test code = 10.5 g/dL 12.2-16.4 L 718-7) HCT (test code = 31.5 % 38.4-49.3 L 4544-3) MCV (test code = 91.8 fL 81.7-95.6 787-2) MCH (test code = 30.6 pg 26.1-32.7 785-6) MCHC (test code = 33.3 g/dL 31.2-35.0 786-4) RDW-SD (test code = 49.1 fL 38.5-51.6 11615-0) RDW-CV (test code = 14.6 % 12.1-15.4 788-0) PLT (test code = See_Comment [Automated 777-3) message] The system which generated this result transmit josh reference range : 150 - 328 10*3/ ?L. The reference range was not u sed to interpret th is result as normal/abnormal . MPV (test code = 10.0 fL 9.8-13.0 23180-4) NRBC/100 WBC (test See_Comment [Automat ed code = 0942576581) message] The system which generated this result transmit josh reference range : 0.0 - 10.0 /100 WBCs. The reference range was not used to interpret this result as normal/abnormal . NRBC x10^3 (test code See_Comment [Auto mated = 7279475066) message] The system which generated this result transmit josh reference range : 10*3/?L. The reference range was not used to interpret this result as normal/abnormal . GRAN MAT (NEUT) % 71.4 % (test code = 770-8) IMM GRAN % (test code 1.60 % = 6515564339) LYMPH % (test code = 20.8 % 736-9) MONO % (test code = 5.9 % 5905-5) EOS % (test code = 0.2 % 713-8) BASO % (test code = 0.1 % 706-2) GRAN MAT x10^3(ANC) 10.41 10*3/uL 1.99-6.95 H (test code = 0091039012) IMM GRAN x10^3 (test 0.24 10*3/uL 0.00-0.06 H code = 6880698694) LYMPH x10^3 (test code 3.04 10*3/uL 1.09-3.23 = 731-0) MONO x10^3 (test code 0.86 10*3/uL 0.36-1.02 = 742-7) EOS x10^3 (test code = 0.03 10*3/uL 0.06-0.53 L 711-2) BASO x10^3 (test code 0.01-0.09 = 704-7) Lab Interpretation Abnormal (test code = 03405-8) [facility] WITH [id number] 06:45:45 Test Item Value Reference Range Interpretation Comments WBC (test code = See_Comment H [Automated 6690-2) message] The system which generated this result transmit josh reference range : 4.20 - 10.70 10*3/?L. The reference range was not used to interpret this result as normal/abnormal . RBC (test code = See_Comment L [Automated 789-8) message] The system which generated this result transmit josh reference range : 4.26 - 5.52 10*6/?L. The reference range was not used to interpret this result as normal/abnormal . HGB (test code = 10.5 g/dL 12.2-16.4 L 718-7) HCT (test code = 31.5 % 38.4-49.3 L 4544-3) MCV (test code = 91.8 fL 81.7-95.6 787-2) MCH (test code = 30.6 pg 26.1-32.7 785-6) MCHC (test code = 33.3 g/dL 31.2-35.0 786-4) RDW-SD (test code = 49.1 fL 38.5-51.6 46453-1) RDW-CV (test code = 14.6 % 12.1-15.4 788-0) PLT (test code = See_Comment [Automated 777-3) message] The system which generated this result transmit josh reference range : 150 - 328 10*3/ ?L. The reference range was not u sed to interpret th is result as normal/abnormal . MPV (test code = 10.0 fL 9.8-13.0 96047-6) NRBC/100 WBC (test See_Comment [Automat ed code = 6155850846) message] The system which generated this result transmit josh reference range : 0.0 - 10.0 /100 WBCs. The reference range was not used to interpret this result as normal/abnormal . NRBC x10^3 (test code See_Comment [Auto mated = 5190375002) message] The system which generated this result transmit josh reference range : 10*3/?L. The reference range was not used to interpret this result as normal/abnormal . GRAN MAT (NEUT) % 71.4 % (test code = 770-8) IMM GRAN % (test code 1.60 % = 0323809629) LYMPH % (test code = 20.8 % 736-9) MONO % (test code = 5.9 % 5905-5) EOS % (test code = 0.2 % 713-8) BASO % (test code = 0.1 % 706-2) GRAN MAT x10^3(ANC) 10.41 10*3/uL 1.99-6.95 H (test code = 4583979414) IMM GRAN x10^3 (test 0.24 10*3/uL 0.00-0.06 H code = 9077093445) LYMPH x10^3 (test code 3.04 10*3/uL 1.09-3.23 = 731-0) MONO x10^3 (test code 0.86 10*3/uL 0.36-1.02 = 742-7) EOS x10^3 (test code = 0.03 10*3/uL 0.06-0.53 L 711-2) BASO x10^3 (test code 0.01-0.09 = 704-7) Lab Interpretation Abnormal (test code = 53586-6) [facility] 03:38:07 Test Item Value Reference Range Interpretation Comments Height (test code = in 3389347133) Weight (test code = lbs 1281201999) Systolic BP (test code = mmHg 3363907013) Diastolic BP (test code mmHg = 9605711465) Heart Rate (test code = bpm 3318436441) BSA (test code = 2.06 m2 2950971395) MV valve area p 1/2 7.50 cm2 method (test code = 5237445221) MV dec slope (test code 1149.00 cm/s2 = 8047332831) MV P1/2t max carmita (test 114.40 cm/s code = 3856742802) MV [place] (test code 114.8 cm/s = 2777416101) MV Prop V (test code = 34.90 cm/s 7444761365) Tapse (test code = 2.20 cm 0905312821) MV E/e' septal (test 10.3 cm/s code = 8805954525) LVOT peak carmita (test code 97.7 cm/s = 0559882894) LVOT mn grad (test code mmHg = 5173857353) AV LVOT peak gradient mmHg (test code = 0903447497) LVOT peak VTI (test code 13.1 cm = 1891634507) LV V1 mean (test code = 62.10 cm/s 7325670434) Aortic valve mean 72.2 cm/s velocity (test code = 4403738042) Ao peak carmita (test code = 108.6 cm/s 8030099231) Ao VTI (test code = 13.7 cm 5734669775) Ao max PG (test code = 4.70 mm[Hg] 9963646750) AV peak gradient (test mmHg code = 6640584098) AV mean gradient (test mmHg code = 6544433828) Aortic HR (test code = BPM 1795426216) LAV(MOD-sp2) (test code 56.20 mL = 0989302966) LVIDD (test code = 5.40 cm 7218937995) IVS (test code = 0.97 cm 9596714723) Interventricular Septum 0.97 cm Diastolic Thickness by 2D (test code = 5777088) LVPWD (test code = 0.90 cm 1866968023) PW (test code = 0.90 cm 0.6-1.8 8252660261) EF(Teich) (test code = 38.40 % 1073058841) LVIDS (test code = 4.40 cm 2748794803) FS (test code = 19 % 4686069639) EF - 2D (test code = 38.40 % 12890262) Radiology Study observation (narrative) (test code = 91250-6) JUAN (test code = JUAN) Formatting of this result is different from the original. ?Left?Ventricle: Severely reduced systolic function with a visually estimated EF of 20 - 25%. Normal diastolic function. ?No significant valvular disease. Left VentricleLeft ventricle size is normal. Normal wall thickness. Severely reduced systolic function with a visually estimated EF of 20 - 25%. Normal diastolic function.Right VentricleRight ventricle is normal in size and function. Normal wall thickness. Normal systolic function.Left AtriumLeft atrium size is normal.Right AtriumRight atrium size is normal.IVC/SVCIVC was not well visualized.Mitral ValveMitral valve is normal in structure and function. No transvalvular regurgitation. No stenosis.Tricuspid ValveTricuspid valve is normal size and function. Trace transvalvular regurgitation. Insufficient regurgant jet to estimate RVSP. No stenosis.Aortic ValveAortic valve is normal in structure and function.Pulmonic ValveNot well visualized.Ascending AortaNot well visualized.Pericardiu mThe pericardium is normal. No pericardial effusion.Study DetailsStudy quality experienced technical difficulty. A limited echocardiogram was performed using 2D, color flow Doppler and spectral Doppler. 5 mL of Lumason ultrasound enhancing agent used. [facility] GLUCOSE (AUTOMATED)2022-02-16 01:08:44 Test Item Value Reference Range Interpretation Comments POCT GLU (test code = 0588546133) 167 mg/dL 70-110 H Lab Interpretation (test code = Abnormal 39323-4) [facility] GLUCOSE (AUTOMATED)2022-02-16 01:08:44 Test Item Value Reference Range Interpretation Comments POCT GLU (test code = 4722691767) 167 mg/dL 70-110 H Lab Interpretation (test code = Abnormal 74788-1) [facility] METABOLIC PANEL (NA, K, CL, CO2, GLUCOSE, BUN, CREATININE, CA)2022-02-16 00:36:49 Test Item Value Reference Range Interpretation Comments NA (test code = 128 mmol/L 135-145 L 4369733081) K (test code = 5.9 mmol/L 3.5-5.0 H Slight 0459912898) hemolysis CL (test code = 99 mmol/L 98-108 9533729870) CO2 TOTAL (test code 27 mmol/L 23-31 = 9285609144) AGAP (test code = 2-16 6591331701) BUN (test code = 60 mg/dL 7-23 H Slight 3386654770) hemolysis GLUCOSE (test code = 123 mg/dL 70-110 H 1821824948) CREATININE (test code 2.04 mg/dL 0.60-1.25 H = 2993421699) CALCIUM (test code = 8.2 mg/dL 8.6-10.6 L 7566035271) eGFR (test code = mL/min/1.73m2 9325380720) JUAN (test code = JUAN) Association of Glomerular Filtration Rate (GFR) and Staging of Kidney Disease* + -----+ --------+ +| GFR (mL/min/1.73 m2) ?| With Kidney Damage ?| ?Without Kidney Damage+ +------- +---- --+| ?>90 ?| ?Stage one ?| ? Normal ?+ ------+ ---------+--------- +| ?60-89 ?| ?Stage two ?| ? Decreased GFR ? + -----+ --------+ +| ?30-59 ?| ?Stage three ?| ? Stage three ? + -----+ --------+ +| ?15-29 ?| ?Stage four ? | ? Stage four ?+ ------+ ---------+--------- +| ?<15 (or dialysis) ? ?| ?Stage five ? | ? Stage five ?+ ------+ ---------+--------- + *Each stage assumes the associated GFR level has been in effect for at least three months. ?Stages 1 to 5, with or without kidney disease, indicate chronic kidney disease. Notes: Determination of stages one and two (with eGFR >59mL/min/1.73 m2) requires estimation of kidney damage for at least three months as defined by structural or functional abnormalities of the kidney, manifested by either:Pathological abnormalities or Markers of kidney damage (including abnormalities in the composition of the blood or urine or abnormalities in imaging tests). Lab Interpretation Abnormal (test code = 15386-8) [facility] METABOLIC PANEL (NA, K, CL, CO2, GLUCOSE, BUN, CREATININE, CA)2022-02-16 00:36:49 Test Item Value Reference Range Interpretation Comments NA (test code = 128 mmol/L 135-145 L 4954994122) K (test code = 5.9 mmol/L 3.5-5.0 H Slight 0518830115) hemolysis CL (test code = 99 mmol/L 98-108 9655905645) CO2 TOTAL (test code 27 mmol/L 23-31 = 3159979322) AGAP (test code = 2-16 3304705942) BUN (test code = 60 mg/dL 7-23 H Slight 2983079138) hemolysis GLUCOSE (test code = 123 mg/dL 70-110 H 2657328173) CREATININE (test code 2.04 mg/dL 0.60-1.25 H = 6218116980) CALCIUM (test code = 8.2 mg/dL 8.6-10.6 L 0050733824) eGFR (test code = mL/min/1.73m2 0534218742) JUAN (test code = JUAN) Association of Glomerular Filtration Rate (GFR) and Staging of Kidney Disease* + -----+ --------+ +| GFR (mL/min/1.73 m2) ?| With Kidney Damage ?| ?Without Kidney Damage+ +------- +---- --+| ?>90 ?| ?Stage one ?| ? Normal ?+ ------+ ---------+--------- +| ?60-89 ?| ?Stage two ?| ? Decreased GFR ? + -----+ --------+ +| ?30-59 ?| ?Stage three ?| ? Stage three ? + -----+ --------+ +| ?15-29 ?| ?Stage four ? | ? Stage four ?+ ------+ ---------+--------- +| ?<15 (or dialysis) ? ?| ?Stage five ? | ? Stage five ?+ ------+ ---------+--------- + *Each stage assumes the associated GFR level has been in effect for at least three months. ?Stages 1 to 5, with or without kidney disease, indicate chronic kidney disease. Notes: Determination of stages one and two (with eGFR >59mL/min/1.73 m2) requires estimation of kidney damage for at least three months as defined by structural or functional abnormalities of the kidney, manifested by either:Pathological abnormalities or Markers of kidney damage (including abnormalities in the composition of the blood or urine or abnormalities in imaging tests). Lab Interpretation Abnormal (test code = 71388-2) [facility] [id number] 00:35:33 Test Item Value Reference Interpretation Comments Range TROPONIN I (test 29.900 ng/mL See_Comment H [Automated code = 0237859190) message] The system which generated this result transmitted reference range : <=0.034. The reference range was not used to interpret this result as normal/abnormal . JUAN (test code = Reference (Normal) JUAN) Range (defined by the 99th percentile reference limit): <= 0.034 ng/mL Note: Cardiac troponin begins to rise 3-4 hours after the onset of ischemia. Repeat in 4-6 hours if the sample was drawn within 3-4 hours of the onset of the symptom and found normal. Diagnosis of myocardial injury is made with acute changes in cTn concentrations with at least one serial sample above the 99th percentile upper reference limit (URL), taken together with the patient's clinical presentation. Biotin has been reported to cause a negative bias, interpret results relative to patient's use of biotin. Lab Interpretation Abnormal (test code = 73154-4) [id number] Test Item Value Reference Interpretation Comments Range TROPONIN I (test 29.900 ng/mL See_Comment H [Automated code = 8880276315) message] The system which generated this result transmitted reference range : <=0.034. The reference range was not used to interpret this result as normal/abnormal . JUAN (test code = Reference (Normal) JUAN) Range (defined by the 99th percentile reference limit): <= 0.034 ng/mL Note: Cardiac troponin begins to rise 3-4 hours after the onset of ischemia. Repeat in 4-6 hours if the sample was drawn within 3-4 hours of the onset of the symptom and found normal. Diagnosis of myocardial injury is made with acute changes in cTn concentrations with at least one serial sample above the 99th percentile upper reference limit (URL), taken together with the patient's clinical presentation. Biotin has been reported to cause a negative bias, interpret results relative to patient's use of biotin. Lab Interpretation Abnormal (test code = 19793-5) [facility] Test Item Value Reference Range Interpretation Comments MAGNESIUM (test code = 9565900834) 2.3 mg/dL 1.7-2.4 Lab Interpretation (test code = Normal 73588-4) [facility] Test Item Value Reference Range Interpretation Comments PHOSPHORUS (test code = 0311492707) 3.7 mg/dL 2.5-5.0 Lab Interpretation (test code = Normal 24175-0) [facility]52 Test Item Value Reference Range Interpretation Comments MAGNESIUM (test code = 5570490795) 2.3 mg/dL 1.7-2.4 Lab Interpretation (test code = Normal 04240-2) [facility]:23[facility] Test Item Value Reference Range Interpretation Comments PHOSPHORUS (test code = 1785135807) 3.7 mg/dL 2.5-5.0 Lab Interpretation (test code = Normal 00634-7) [facility]22-[facility]-16 00:05:05 Test Item Value Reference Range Interpretation Comments APTT Patient (test code See_Comment H [Au tomated message] = 3173-2) The system Andela generated this result transmitted ref erence range: 26 - 36 Seconds. The reference range was not used to int erpret this result as normal/abnormal . Lab Interpretation (test Abnormal code = 98632-0) [facility]2022-02-16 00:05:05 Test Item Value Reference Range Interpretation Comments APTT Patient (test code See_Comment H [Au tomated message] = 3173-2) The system Andela generated this result transmitted ref erence range: 26 - 36 Seconds. The reference range was not used to int erpret this result as normal/abnormal . Lab Interpretation (test Abnormal code = 40936-1) [facility] GLUCOSE (AUTOMATED)2022-02-15 23:08:37 Test Item Value Reference Range Interpretation Comments POCT GLU (test code = 1611109556) 110 mg/dL 70-110 Lab Interpretation (test code = Normal 30840-2) [facility] GLUCOSE (AUTOMATED)2022-02-15 23:08:37 Test Item Value Reference Range Interpretation Comments POCT GLU (test code = 3472565708) 110 mg/dL 70-110 Lab Interpretation (test code = Normal 63513-0) [id number] 17:40[facility]19 Test Item Value Reference Interpretation Comments Range TROPONIN I (test 40.200 ng/mL See_Comment H [Automated code = 6446367892) message] The system which generated this result transmitted reference range : <=0.034. The reference range was not used to interpret this result as normal/abnormal . JUAN (test code = Reference (Normal) JUAN) Range (defined by the 99th percentile reference limit): <= 0.034 ng/mL Note: Cardiac troponin begins to rise 3-4 hours after the onset of ischemia. Repeat in 4-6 hours if the sample was drawn within 3-4 hours of the onset of the symptom and found normal. Diagnosis of myocardial injury is made with acute changes in cTn concentrations with at least one serial sample above the 99th percentile upper reference limit (URL), taken together with the patient's clinical presentation. Biotin has been reported to cause a negative bias, interpret results relative to patient's use of biotin. Lab Interpretation Abnormal (test code = 66084-0) [facility] [id number] 17:40:19 Test Item Value Reference Interpretation Comments Range TROPONIN I (test 40.200 ng/mL See_Comment H [Automated code = 7790873807) message] The system which generated this result transmitted reference range : <=0.034. The reference range was not used to interpret this result as normal/abnormal . JUAN (test code = Reference (Normal) JUAN) Range (defined by the 99th percentile reference limit): <= 0.034 ng/mL Note: Cardiac troponin begins to rise 3-4 hours after the onset of ischemia. Repeat in 4-6 hours if the sample was drawn within 3-4 hours of the onset of the symptom and found normal. Diagnosis of myocardial injury is made with acute changes in cTn concentrations with at least one serial sample above the 99th percentile upper reference limit (URL), taken together with the patient's clinical presentation. Biotin has been reported to cause a negative bias, interpret results relative to patient's use of biotin. Lab Interpretation Abnormal (test code = 38403-6) [facility]:33:19 Test Item Value Reference Range Interpretation Comments APTT Patient (test code = See_Comment [ Automated message] 3173-2) The system Andela generated this result transmitted ref erence range: 26 - 36 Seconds. The re ference range was not u sed to interpret this result as normal/abnor mal. Lab Interpretation (test Normal code = 64481-0) [facility] 17:33:19 Test Item Value Reference Range Interpretation Comments APTT Patient (test code = See_Comment [ Automated message] 3173-2) The system Andela generated this result transmitted ref erence range: 26 - 36 Seconds. The re ference range was not u sed to interpret this result as normal/abnor mal. Lab Interpretation (test Normal code = 43793-5) [facility] 17:28:41 Test Item Value Reference Range Interpretation Comments MAGNESIUM (test code = 0969722165) 2.4 mg/dL 1.7-2.4 Lab Interpretation (test code = Normal 54721-8) [facility] 17:28:41 Test Item Value Reference Range Interpretation Comments PHOSPHORUS (test code = 2273101659) 3.1 mg/dL 2.5-5.0 Lab Interpretation (test code = Normal 01674-0) [facility] 17:28:41 Test Item Value Reference Range Interpretation Comments MAGNESIUM (test code = 1977029042) 2.4 mg/dL 1.7-2.4 Lab Interpretation (test code = Normal 95425-6) [facility] 17:28:41 Test Item Value Reference Range Interpretation Comments PHOSPHORUS (test code = 4803095673) 3.1 mg/dL 2.5-5.0 Lab Interpretation (test code = Normal 17397-6) [facility] (NA, K, CL, CO2, GLUCOSE, BUN, CREATININE, CA)2022-02-15 17:28:40 Test Item Value Reference Range Interpretation Comments NA (test code = 131 mmol/L 135-145 L 9830926742) K (test code = 4.4 mmol/L 3.5-5.0 6997519047) CL (test code = 100 mmol/L 98-108 5537299286) CO2 TOTAL (test code = 29 mmol/L 23-31 8810974409) AGAP (test code = 2-16 2046206094) BUN (test code = 56 mg/dL 7-23 H 2495409992) GLUCOSE (test code = 149 mg/dL 70-110 H 5994718831) CREATININE (test code = 1.93 mg/dL 0.60-1.25 H 1415509055) CALCIUM (test code = 8.4 mg/dL 8.6-10.6 L 3277209670) eGFR (test code = mL/min/1.73m2 4214954900) JUAN (test code = JUAN) Association of Glomerular Filtration Rate (GFR) and Staging of Kidney Disease* + --+ --+ ------+| GFR (mL/min/1.73 m2) ?| With Kidney Damage ?| ?Without Kidney Damage+ --------+ --------+ +| ?>90 ?| ?Stage one ?| ? Normal ?+ ---+ ---+ -------+| ?60-89 ?| ?Stage two ?| ? Decreased GFR ? + --+ --+ ------+| ?30-59 ?| ?Stage three ?| ? Stage three ? + --+ --+ ------+| ?15-29 ?| ?Stage four ? | ? Stage four ?+ ---+ ---+ -------+| ?<15 (or dialysis) ? ?| ?Stage five ? | ? Stage five ?+ ---+ ---+ -------+ *Each stage assumes the associated GFR level has been in effect for at least three months. ?Stages 1 to 5, with or without kidney disease, indicate chronic kidney disease. Notes: Determination of stages one and two (with eGFR >59mL/min/1.73 m2) requires estimation of kidney damage for at least three months as defined by structural or functional abnormalities of the kidney, manifested by either:Pathological abnormalities or Markers of kidney damage (including abnormalities in the composition of the blood or urine or abnormalities in imaging tests). Lab Interpretation Abnormal (test code = 01593-9) [facility] METABOLIC PANEL (NA, K, CL, CO2, GLUCOSE, BUN, CREATININE, CA)2022-02-15 17:28:40 Test Item Value Reference Range Interpretation Comments NA (test code = 131 mmol/L 135-145 L 4154255102) K (test code = 4.4 mmol/L 3.5-5.0 5981367168) CL (test code = 100 mmol/L 98-108 9305930016) CO2 TOTAL (test code = 29 mmol/L 23-31 3140721400) AGAP (test code = 2-16 2743184409) BUN (test code = 56 mg/dL 7-23 H 0120606271) GLUCOSE (test code = 149 mg/dL 70-110 H 5921513644) CREATININE (test code = 1.93 mg/dL 0.60-1.25 H 3596187093) CALCIUM (test code = 8.4 mg/dL 8.6-10.6 L 3021483380) eGFR (test code = mL/min/1.73m2 3285374930) JUAN (test code = JUAN) Association of Glomerular Filtration Rate (GFR) and Staging of Kidney Disease* + --+ --+ ------+| GFR (mL/min/1.73 m2) ?| With Kidney Damage ?| ?Without Kidney Damage+ --------+ --------+ +| ?>90 ?| ?Stage one ?| ? Normal ?+ ---+ ---+ -------+| ?60-89 ?| ?Stage two ?| ? Decreased GFR ? + --+ --+ ------+| ?30-59 ?| ?Stage three ?| ? Stage three ? + --+ --+ ------+| ?15-29 ?| ?Stage four ? | ? Stage four ?+ ---+ ---+ -------+| ?<15 (or dialysis) ? ?| ?Stage five ? | ? Stage five ?+ ---+ ---+ -------+ *Each stage assumes the associated GFR level has been in effect for at least three months. ?Stages 1 to 5, with or without kidney disease, indicate chronic kidney disease. Notes: Determination of stages one and two (with eGFR >59mL/min/1.73 m2) requires estimation of kidney damage for at least three months as defined by structural or functional abnormalities of the kidney, manifested by either:Pathological abnormalities or Markers of kidney damage (including abnormalities in the composition of the blood or urine or abnormalities in imaging tests). Lab Interpretation Abnormal (test code = 01973-6) [facility] GLUCOSE (AUTOMATED)2022-02-15 16:45:01 Test Item Value Reference Range Interpretation Comments POCT GLU (test code = 0906489991) 155 mg/dL 70-110 H Lab Interpretation (test code = Abnormal 79645-5) [facility] GLUCOSE (AUTOMATED)2022-02-15 16:45:01 Test Item Value Reference Range Interpretation Comments POCT GLU (test code = 8569883898) 155 mg/dL 70-110 H Lab Interpretation (test code = Abnormal 78606-3) [facility] 15:22:46 Test Item Value Reference Interpretation Comments Range Procalcitonin (test 0.29 ng/mL See_Comment H [Automa josh code = 7932129957) message] The system which generated this result transmitted reference range: <=0.08. The reference range was not used to interpret this result as normal/abnormal . JUAN (test code = INTERPRETATION OF UJAN) PROCALCITONIN RESULTS IN ADULTS >= 18 YEARS OF AGE Initiation and discontinuation of antibiotics on patients with suspected or confirmed Lower Respiratory Tract Infection in Adults >= 18 years of age. + +------ + ----+ +|Procalcit onin |Interpretation ?|Antibiotic ? ? |Considerations ? |ng/mL ? | ?|recommendation | ? + +------ + ----+ +| <0.1 ? | Bacterial ? ? ?| Strongly ? ? ?| ? | ?| infection very | discouraged ? | Overruling: ? | ?| unlikely ? ? ? | ? | ? Clinically unstable ? ? ? + +------ + ----+ ? High risk for adverse ? ? | <0.25 ?| Bacterial ? ? ?| Discouraged ? | ? outcome ? | ?| infection ? ? ?| ? | ? SEE IMPORTANT NOTE ?| ?| unlikely ? ? ? | ? | ? + +------ + ----+ +| >=0.25 ? ? ? | Bacterial ? ? ?| Encouraged ? ?| ? | ?| infection ? ? ?| ? | ? | ?| likely ? | ? | Consider treatment failure ?+ +----- + -----+ if levels does not decrease | >0.5 ? | Bacterial ? ? ?| Strongly ? ? ?| appropriately ? | ?| infection very | encouraged ? ?| ? | ?| likely ? | ? | ? + +------ + ----+ + Discontinuation of antibiotics in high-acuity patients with suspected or confirmed sepsis in Adults >= 18 years of age. + +------ + ----+ +|Procalcit onin |Interpretation ?|Antibiotic ? ? |Considerations ? |ng/mL ? | ?|recommendation | ? + +------ + ----+ +| <0.25 ?| Bacterial ? ? ?| Strongly ? ? ?| ? | ?| infection very | discouraged ? | Overruling: ? | ?| unlikely ? ? ? | ? | ? Clinically unstable ? ? ? + +------ + ----+ ? High risk for adverse ? ? | <0.5 or drop | Bacterial ? ? ?| Discouraged ? | ? outcome ? | >80% from ? ?| infection ? ? ?| ? | ? SEE IMPORTANT NOTE ?| highest PCT ?| unlikely ? ? ? | ? | ? | level ?| ?| ? | ? + +------ + ----+ +| >=0.5 ?| Bacterial ? ? ?| Encouraged ? ?| ? | ?| infection ? ? ?| ? | ? | ?| likely ? | ? | Consider treatment failure ?+ +----- + -----+ if levels does not decrease | >1.0 ? | Bacterial ? ? ?| Strongly ? ? ?| appropriately ? | ?| infection very | encouraged ? ?| ? | ?| likely ? | ? | ? + +------ + ----+ + Percentage of drop of Procalcitonin calculation for Discontinuation of antibiotics in high-acuity patients with suspected or confirmed sepsis in Adults >= 18 years of age. ? Procalcitonin highest{}-Procalcitoni n current{}Delta Procalcitonin = ___ x100% ? Procalcitonin current {} IMPORTANT NOTE: Procalcitonin may be elevated without bacterial infection by physiologic stress related to trauma, cueva, chronic dialysis, metastatic cancer, surgery in the past seven days, malaria, some fungal infections, and some forms of vasculitis. The interpretation algorithm may not apply to patients with immunosuppression (equivalent of >10 mg of prednisone daily), HIV with CD4 cell count < 350 cells/mm3, active malignancy on systemic chemotherapy, solid organ transplant or hematopoietic stem cell transplantation, or hospital acquired pneumonia. Additionally, some clinical trials of procalcitonin have excluded patients with shock requiring vasopressor use, acute respiratory failure requiring mechanical ventilation, or those with known lung abscess/empyema. For further information please refer to:[email or web address] Lab Interpretation Abnormal (test code = 55730-5) [facility] 15:22:46 Test Item Value Reference Interpretation Comments Range Procalcitonin (test 0.29 ng/mL See_Comment H [Automa josh code = 6007795609) message] The system which generated this result transmitted reference range: <=0.08. The reference range was not used to interpret this result as normal/abnormal . JUAN (test code = INTERPRETATION OF JUAN) PROCALCITONIN RESULTS IN ADULTS >= 18 YEARS OF AGE Initiation and discontinuation of antibiotics on patients with suspected or confirmed Lower Respiratory Tract Infection in Adults >= 18 years of age. + +------ + ----+ +|Procalcit onin |Interpretation ?|Antibiotic ? ? |Considerations ? |ng/mL ? | ?|recommendation | ? + +------ + ----+ +| <0.1 ? | Bacterial ? ? ?| Strongly ? ? ?| ? | ?| infection very | discouraged ? | Overruling: ? | ?| unlikely ? ? ? | ? | ? Clinically unstable ? ? ? + +------ + ----+ ? High risk for adverse ? ? | <0.25 ?| Bacterial ? ? ?| Discouraged ? | ? outcome ? | ?| infection ? ? ?| ? | ? SEE IMPORTANT NOTE ?| ?| unlikely ? ? ? | ? | ? + +------ + ----+ +| >=0.25 ? ? ? | Bacterial ? ? ?| Encouraged ? ?| ? | ?| infection ? ? ?| ? | ? | ?| likely ? | ? | Consider treatment failure ?+ +----- + -----+ if levels does not decrease | >0.5 ? | Bacterial ? ? ?| Strongly ? ? ?| appropriately ? | ?| infection very | encouraged ? ?| ? | ?| likely ? | ? | ? + +------ + ----+ + Discontinuation of antibiotics in high-acuity patients with suspected or confirmed sepsis in Adults >= 18 years of age. + +------ + ----+ +|Procalcit onin |Interpretation ?|Antibiotic ? ? |Considerations ? |ng/mL ? | ?|recommendation | ? + +------ + ----+ +| <0.25 ?| Bacterial ? ? ?| Strongly ? ? ?| ? | ?| infection very | discouraged ? | Overruling: ? | ?| unlikely ? ? ? | ? | ? Clinically unstable ? ? ? + +------ + ----+ ? High risk for adverse ? ? | <0.5 or drop | Bacterial ? ? ?| Discouraged ? | ? outcome ? | >80% from ? ?| infection ? ? ?| ? | ? SEE IMPORTANT NOTE ?| highest PCT ?| unlikely ? ? ? | ? | ? | level ?| ?| ? | ? + +------ + ----+ +| >=0.5 ?| Bacterial ? ? ?| Encouraged ? ?| ? | ?| infection ? ? ?| ? | ? | ?| likely ? | ? | Consider treatment failure ?+ +----- + -----+ if levels does not decrease | >1.0 ? | Bacterial ? ? ?| Strongly ? ? ?| appropriately ? | ?| infection very | encouraged ? ?| ? | ?| likely ? | ? | ? + +------ + ----+ + Percentage of drop of Procalcitonin calculation for Discontinuation of antibiotics in high-acuity patients with suspected or confirmed sepsis in Adults >= 18 years of age. ? Procalcitonin highest{}-Procalcitoni n current{}Delta Procalcitonin = ___ x100% ? Procalcitonin current {} IMPORTANT NOTE: Procalcitonin may be elevated without bacterial infection by physiologic stress related to trauma, cueva, chronic dialysis, metastatic cancer, surgery in the past seven days, malaria, some fungal infections, and some forms of vasculitis. The interpretation algorithm may not apply to patients with immunosuppression (equivalent of >10 mg of prednisone daily), HIV with CD4 cell count < 350 cells/mm3, active malignancy on systemic chemotherapy, solid organ transplant or hematopoietic stem cell transplantation, or hospital acquired pneumonia. Additionally, some clinical trials of procalcitonin have excluded patients with shock requiring vasopressor use, acute respiratory failure requiring mechanical ventilation, or those with known lung abscess/empyema. For further information please refer to:[email or web address] Lab Interpretation Abnormal (test code = 13428-7) [facility] GLUCOSE (AUTOMATED)2022-02-15 13:10:03 Test Item Value Reference Range Interpretation Comments POCT GLU (test code = 4533440065) 158 mg/dL 70-110 H Lab Interpretation (test code = Abnormal 10883-3) [facility] GLUCOSE (AUTOMATED)2022-02-15 13:10:03 Test Item Value Reference Range Interpretation Comments POCT GLU (test code = 6031340213) 158 mg/dL 70-110 H Lab Interpretation (test code = Abnormal 42567-0) [facility] [id number] 11:33:31 Test Item Value Reference Interpretation Comments Range TROPONIN I (test 44.100 ng/mL See_Comment H [Automated code = 9428629858) message] The system which generated this result transmitted reference range : <=0.034. The reference range was not used to interpret this result as normal/abnormal . JUAN (test code = Reference (Normal) JUAN) Range (defined by the 99th percentile reference limit): <= 0.034 ng/mL Note: Cardiac troponin begins to rise 3-4 hours after the onset of ischemia. Repeat in 4-6 hours if the sample was drawn within 3-4 hours of the onset of the symptom and found normal. Diagnosis of myocardial injury is made with acute changes in cTn concentrations with at least one serial sample above the 99th percentile upper reference limit (URL), taken together with the patient's clinical presentation. Biotin has been reported to cause a negative bias, interpret results relative to patient's use of biotin. Lab Interpretation Abnormal (test code = 55823-5) [facility] [id number] 11:33:31 Test Item Value Reference Interpretation Comments Range TROPONIN I (test 44.100 ng/mL See_Comment H [Automated code = 0973689231) message] The system which generated this result transmitted reference range : <=0.034. The reference range was not used to interpret this result as normal/abnormal . JUAN (test code = Reference (Normal) JUAN) Range (defined by the 99th percentile reference limit): <= 0.034 ng/mL Note: Cardiac troponin begins to rise 3-4 hours after the onset of ischemia. Repeat in 4-6 hours if the sample was drawn within 3-4 hours of the onset of the symptom and found normal. Diagnosis of myocardial injury is made with acute changes in cTn concentrations with at least one serial sample above the 99th percentile upper reference limit (URL), taken together with the patient's clinical presentation. Biotin has been reported to cause a negative bias, interpret results relative to patient's use of biotin. Lab Interpretation Abnormal (test code = 58705-0) [facility] WITHOUT [id number] 10:48:10 Test Item Value Reference Range Interpretation Comments WBC (test code = 6690-2) See_Comment H [A utomated message] The system Dianxin generated this result transmit josh reference range : 4.20 - 10.70 10*3/?L. The reference range was not used to interpret this result as normal/abnormal . RBC (test code = 789-8) See_Comment L [Au tomated message] The system Dianxin generated this result transmit josh reference range : 4.26 - 5.52 10* 6/?L. The reference r maxi was not used to interpret this result as normal/abnormal . HGB (test code = 718-7) 11.2 g/dL 12.2-16.4 L HCT (test code = 4544-3) 32.5 % 38.4-49.3 L MCH (test code = 785-6) 31.2 pg 26.1-32.7 MCV (test code = 787-2) 90.5 fL 81.7-95.6 MCHC (test code = 786-4) 34.5 g/dL 31.2-35.0 PLT (test code = 777-3) See_Comment [Au tomated message] The system [facility] generated this result transmit josh reference range : 150 - 328 10*3/?L. The reference range was not used to interpret this result as normal/abnormal . MPV (test code = 9.9 fL 9.8-13.0 82943-6) RDW-CV (test code = 14.6 % 12.1-15.4 788-0) RDW-SD (test code = 48.1 fL 38.5-51.6 24685-6) NRBC x10^3 (test code = See_Comment [Au tomated message] [id number]) The system Andela generated this result transmit josh reference range : 10*3/?L. The reference range was not used to interpret this result as normal/abnormal . NRBC/100 WBC (test code See_Comment [Au tomated message] = 6622760139) The system [facility] generated this result transmit josh reference range : 0.0 - 10.0 /100 WBC s. The reference r maxi was not used to interpret this result as normal/abnormal . IPF % (test code = 0807424936) Lab Interpretation (test Abnormal code = 77190-0) [facility] WITHOUT [id number] 10:48:10 Test Item Value Reference Range Interpretation Comments WBC (test code = 6690-2) See_Comment H [A utomated message] The system Andela generated this result transmit josh reference range : 4.20 - 10.70 10*3/?L. The reference range was not used to interpret this result as normal/abnormal . RBC (test code = 789-8) See_Comment L [Au tomated message] The system Andela generated this result transmit josh reference range : 4.26 - 5.52 10* 6/?L. The reference r maxi was not used to interpret this result as normal/abnormal . HGB (test code = 718-7) 11.2 g/dL 12.2-16.4 L HCT (test code = 4544-3) 32.5 % 38.4-49.3 L MCH (test code = 785-6) 31.2 pg 26.1-32.7 MCV (test code = 787-2) 90.5 fL 81.7-95.6 MCHC (test code = 786-4) 34.5 g/dL 31.2-35.0 PLT (test code = 777-3) See_Comment [Au tomated message] The system Andela generated this result transmit josh reference range : 150 - 328 10*3/?L. The reference range was not used to interpret this result as normal/abnormal . MPV (test code = 9.9 fL 9.8-13.0 09754-8) RDW-CV (test code = 14.6 % 12.1-15.4 788-0) RDW-SD (test code = 48.1 fL 38.5-51.6 07384-7) NRBC x10^3 (test code = See_Comment [Au tomated message] 7397325982) The system Andela generated this result transmit josh reference range : 10*3/?L. The reference range was not used to interpret this result as normal/abnormal . NRBC/100 WBC (test code See_Comment [Au tomated message] = 8544931916) The system [facility] generated this result transmit josh reference range : 0.0 - 10.0 /100 WBC s. The reference r maxi was not used to interpret this result as normal/abnormal . IPF % (test code = 0768351484) Lab Interpretation (test Abnormal code = 68950-7) [facility] Test Item Value Reference Range Interpretation Comments MAGNESIUM (test code = 6440638126) 2.5 mg/dL 1.7-2.4 H Lab Interpretation (test code = Abnormal 26004-4) [facility] METABOLIC PANEL (NA, K, CL, CO2, GLUCOSE, BUN, CREATININE, CA)2022-02-15 10:42:52 Test Item Value Reference Range Interpretation Comments NA (test code = 132 mmol/L 135-145 L 8872970399) K (test code = 4.5 mmol/L 3.5-5.0 0114953026) CL (test code = 100 mmol/L 98-108 2161235074) CO2 TOTAL (test code = 29 mmol/L 23-31 6079048199) AGAP (test code = 2-16 0632025617) BUN (test code = 55 mg/dL 7-23 H 2618524297) GLUCOSE (test code = 171 mg/dL 70-110 H 9197454671) CREATININE (test code = 2.00 mg/dL 0.60-1.25 H 3637183102) CALCIUM (test code = 8.4 mg/dL 8.6-10.6 L 5125448482) eGFR (test code = mL/min/1.73m2 3898873778) JUAN (test code = JUAN) Association of Glomerular Filtration Rate (GFR) and Staging of Kidney Disease* + --+ --+ ------+| GFR (mL/min/1.73 m2) ?| With Kidney Damage ?| ?Without Kidney Damage+ --------+ --------+ +| ?>90 ?| ?Stage one ?| ? Normal ?+ ---+ ---+ -------+| ?60-89 ?| ?Stage two ?| ? Decreased GFR ? + --+ --+ ------+| ?30-59 ?| ?Stage three ?| ? Stage three ? + --+ --+ ------+| ?15-29 ?| ?Stage four ? | ? Stage four ?+ ---+ ---+ -------+| ?<15 (or dialysis) ? ?| ?Stage five ? | ? Stage five ?+ ---+ ---+ -------+ *Each stage assumes the associated GFR level has been in effect for at least three months. ?Stages 1 to 5, with or without kidney disease, indicate chronic kidney disease. Notes: Determination of stages one and two (with eGFR >59mL/min/1.73 m2) requires estimation of kidney damage for at least three months as defined by structural or functional abnormalities of the kidney, manifested by either:Pathological abnormalities or Markers of kidney damage (including abnormalities in the composition of the blood or urine or abnormalities in imaging tests). Lab Interpretation Abnormal (test code = 94807-9) [facility] 10:42:52 Test Item Value Reference Range Interpretation Comments MAGNESIUM (test code = 4699327802) 2.5 mg/dL 1.7-2.4 H Lab Interpretation (test code = Abnormal 27080-6) [facility] (NA, K, CL, CO2, GLUCOSE, BUN, CREATININE, CA)2022-02-15 10:42:52 Test Item Value Reference Range Interpretation Comments NA (test code = 132 mmol/L 135-145 L 8815796895) K (test code = 4.5 mmol/L 3.5-5.0 9802815960) CL (test code = 100 mmol/L 98-108 5013944538) CO2 TOTAL (test code = 29 mmol/L 23-31 9841555171) AGAP (test code = 2-16 0381252986) BUN (test code = 55 mg/dL 7-23 H 5090167837) GLUCOSE (test code = 171 mg/dL 70-110 H 0724611968) CREATININE (test code = 2.00 mg/dL 0.60-1.25 H 9957092911) CALCIUM (test code = 8.4 mg/dL 8.6-10.6 L 8700042355) eGFR (test code = mL/min/1.73m2 5014331194) JUAN (test code = JUAN) Association of Glomerular Filtration Rate (GFR) and Staging of Kidney Disease* + --+ --+ ------+| GFR (mL/min/1.73 m2) ?| With Kidney Damage ?| ?Without Kidney Damage+ --------+ --------+ +| ?>90 ?| ?Stage one ?| ? Normal ?+ ---+ ---+ -------+| ?60-89 ?| ?Stage two ?| ? Decreased GFR ? + --+ --+ ------+| ?30-59 ?| ?Stage three ?| ? Stage three ? + --+ --+ ------+| ?15-29 ?| ?Stage four ? | ? Stage four ?+ ---+ ---+ -------+| ?<15 (or dialysis) ? ?| ?Stage five ? | ? Stage five ?+ ---+ ---+ -------+ *Each stage assumes the associated GFR level has been in effect for at least three months. ?Stages 1 to 5, with or without kidney disease, indicate chronic kidney disease. Notes: Determination of stages one and two (with eGFR >59mL/min/1.73 m2) requires estimation of kidney damage for at least three months as defined by structural or functional abnormalities of the kidney, manifested by either:Pathological abnormalities or Markers of kidney damage (including abnormalities in the composition of the blood or urine or abnormalities in imaging tests). Lab Interpretation Abnormal (test code = 97595-5) [facility] [id number] 10:39:08 Test Item Value Reference Range Interpretation Comments APTT Patient (test code See_Comment H [Au tomated message] = 3173-2) The system Andela generated this result transmitted ref erence range: 26 - 36 Seconds. The reference range was not used to int erpret this result as normal/abnormal . Lab Interpretation (test Abnormal code = 44555-2) [facility] [id number] 10:39:08 Test Item Value Reference Range Interpretation Comments APTT Patient (test code See_Comment H [Au tomated message] = 3173-2) The system Andela generated this result transmitted ref erence range: 26 - 36 Seconds. The reference range was not used to int erpret this result as normal/abnormal . Lab Interpretation (test Abnormal code = 14310-7) [facility] [id number] 04:26:48 Test Item Value Reference Range Interpretation Comments APTT Patient (test code See_Comment H [Au tomated message] = 3173-2) The system Andela generated this result transmitted ref erence range: 26 - 36 Seconds. The reference range was not used to int erpret this result as normal/abnormal . Lab Interpretation (test Abnormal code = 41295-3) [facility] [id number] 04:26:48 Test Item Value Reference Range Interpretation Comments APTT Patient (test code See_Comment H [Au tomated message] = 3173-2) The system Andela generated this result transmitted ref erence range: 26 - 36 Seconds. The reference range was not used to int erpret this result as normal/abnormal . Lab Interpretation (test Abnormal code = 45239-5) [facility] GLUCOSE (AUTOMATED)2022-02-15 02:38:04 Test Item Value Reference Range Interpretation Comments POCT GLU (test code = 9151240206) 170 mg/dL 70-110 H Lab Interpretation (test code = Abnormal 56701-3) [facility] GLUCOSE (AUTOMATED)2022-02-15 02:38:04 Test Item Value Reference Range Interpretation Comments POCT GLU (test code = 7140724189) 170 mg/dL 70-110 H Lab Interpretation (test code = Abnormal 78667-6) [facility] [id number] 01:26:24 Test Item Value Reference Interpretation Comments Range TROPONIN I (test 13.300 ng/mL See_Comment H [Automated code = 8800485267) message] The system which generated this result transmitted reference range : <=0.034. The reference range was not used to interpret this result as normal/abnormal . JUAN (test code = Reference (Normal) JUAN) Range (defined by the 99th percentile reference limit): <= 0.034 ng/mL Note: Cardiac troponin begins to rise 3-4 hours after the onset of ischemia. Repeat in 4-6 hours if the sample was drawn within 3-4 hours of the onset of the symptom and found normal. Diagnosis of myocardial injury is made with acute changes in cTn concentrations with at least one serial sample above the 99th percentile upper reference limit (URL), taken together with the patient's clinical presentation. Biotin has been reported to cause a negative bias, interpret results relative to patient's use of biotin. Lab Interpretation Abnormal (test code = 70564-2) [facility] [id number] 01:26:24 Test Item Value Reference Interpretation Comments Range TROPONIN I (test 13.300 ng/mL See_Comment H [Automated code = 9627789369) message] The system which generated this result transmitted reference range : <=0.034. The reference range was not used to interpret this result as normal/abnormal . JUAN (test code = Reference (Normal) JUAN) Range (defined by the 99th percentile reference limit): <= 0.034 ng/mL Note: Cardiac troponin begins to rise 3-4 hours after the onset of ischemia. Repeat in 4-6 hours if the sample was drawn within 3-4 hours of the onset of the symptom and found normal. Diagnosis of myocardial injury is made with acute changes in cTn concentrations with at least one serial sample above the 99th percentile upper reference limit (URL), taken together with the patient's clinical presentation. Biotin has been reported to cause a negative bias, interpret results relative to patient's use of biotin. Lab Interpretation Abnormal (test code = 29548-9) [facility] (NA, K, CL, CO2, GLUCOSE, BUN, CREATININE, CA)2022-02-15 01:14:22 Test Item Value Reference Range Interpretation Comments NA (test code = 134 mmol/L 135-145 L 9002731916) K (test code = 4.6 mmol/L 3.5-5.0 5640070684) CL (test code = 99 mmol/L 98-108 1025768714) CO2 TOTAL (test code = 26 mmol/L 23-31 3654902437) AGAP (test code = 2-16 4027245560) BUN (test code = 54 mg/dL 7-23 H 0360661442) GLUCOSE (test code = 190 mg/dL 70-110 H 1071201966) CREATININE (test code = 2.13 mg/dL 0.60-1.25 H 2161594695) CALCIUM (test code = 8.8 mg/dL 8.6-10.6 4833346404) eGFR (test code = mL/min/1.73m2 8126029779) JUAN (test code = JUAN) Association of Glomerular Filtration Rate (GFR) and Staging of Kidney Disease* + --+ --+ ------+| GFR (mL/min/1.73 m2) ?| With Kidney Damage ?| ?Without Kidney Damage+ --------+ --------+ +| ?>90 ?| ?Stage one ?| ? Normal ?+ ---+ ---+ -------+| ?60-89 ?| ?Stage two ?| ? Decreased GFR ? + --+ --+ ------+| ?30-59 ?| ?Stage three ?| ? Stage three ? + --+ --+ ------+| ?15-29 ?| ?Stage four ? | ? Stage four ?+ ---+ ---+ -------+| ?<15 (or dialysis) ? ?| ?Stage five ? | ? Stage five ?+ ---+ ---+ -------+ *Each stage assumes the associated GFR level has been in effect for at least three months. ?Stages 1 to 5, with or without kidney disease, indicate chronic kidney disease. Notes: Determination of stages one and two (with eGFR >59mL/min/1.73 m2) requires estimation of kidney damage for at least three months as defined by structural or functional abnormalities of the kidney, manifested by either:Pathological abnormalities or Markers of kidney damage (including abnormalities in the composition of the blood or urine or abnormalities in imaging tests). Lab Interpretation Abnormal (test code = 73920-1) [facility] METABOLIC PANEL (NA, K, CL, CO2, GLUCOSE, BUN, CREATININE, CA)2022-02-15 01:14:22 Test Item Value Reference Range Interpretation Comments NA (test code = 134 mmol/L 135-145 L 1382119034) K (test code = 4.6 mmol/L 3.5-5.0 4973341960) CL (test code = 99 mmol/L 98-108 4093424897) CO2 TOTAL (test code = 26 mmol/L 23-31 1385325004) AGAP (test code = 2-16 0764166846) BUN (test code = 54 mg/dL 7-23 H 4864559123) GLUCOSE (test code = 190 mg/dL 70-110 H 7571994826) CREATININE (test code = 2.13 mg/dL 0.60-1.25 H 3548405479) CALCIUM (test code = 8.8 mg/dL 8.6-10.6 7550504104) eGFR (test code = mL/min/1.73m2 0268213933) JUAN (test code = JUAN) Association of Glomerular Filtration Rate (GFR) and Staging of Kidney Disease* + --+ --+ ------+| GFR (mL/min/1.73 m2) ?| With Kidney Damage ?| ?Without Kidney Damage+ --------+ --------+ +| ?>90 ?| ?Stage one ?| ? Normal ?+ ---+ ---+ -------+| ?60-89 ?| ?Stage two ?| ? Decreased GFR ? + --+ --+ ------+| ?30-59 ?| ?Stage three ?| ? Stage three ? + --+ --+ ------+| ?15-29 ?| ?Stage four ? | ? Stage four ?+ ---+ ---+ -------+| ?<15 (or dialysis) ? ?| ?Stage five ? | ? Stage five ?+ ---+ ---+ -------+ *Each stage assumes the associated GFR level has been in effect for at least three months. ?Stages 1 to 5, with or without kidney disease, indicate chronic kidney disease. Notes: Determination of stages one and two (with eGFR >59mL/min/1.73 m2) requires estimation of kidney damage for at least three months as defined by structural or functional abnormalities of the kidney, manifested by either:Pathological abnormalities or Markers of kidney damage (including abnormalities in the composition of the blood or urine or abnormalities in imaging tests). Lab Interpretation Abnormal (test code = 94107-3) [facility] [id number] 00:58:27 Test Item Value Reference Range Interpretation Comments LACTIC ACID (test code = 4.00 mmol/L 0.50-2.20 H 2888959052) Lab Interpretation (test code = Abnormal 57938-0) [facility] Whole [id number] 00:58:27 Test Item Value Reference Range Interpretation Comments LACTIC ACID (test code = 4.00 mmol/L 0.50-2.20 H 5544021691) Lab Interpretation (test code = Abnormal 14784-2) [facility] [id number] 07:00:32 Test Item Value Reference Range Interpretation Comments CULTURE (BEAKER) (test No growth in 5 days code = 1095) BLOOD [id number] 07:00:32 Test Item Value Reference Range Interpretation Comments CULTURE (BEAKER) (test No growth in 5 days code = 1095) POC-Glucose [id number] 16:01:13 Test Item Value Reference Range Interpretation Comments POC-Glucose Meter (test 136 mg/dL 70-110 H : TE STED AT SLSL code = 1538) [facility] [place] [address]: Citizen Participation Specialist/Techni [place] ID = [id number] for Castaneda, Martina cherry Lab Interpretation (test Abnormal code = 60989-3) [facility]-Glucose [id number] 16:01:13 Test Item Value Reference Range Interpretation Comments POC-Glucose Meter (test 136 mg/dL 70-110 H : TE STED AT SLSL code = 1538) [address] [place] [address]: Citizen Participation Specialist/Techni [place] ID = [id number] for Castaneda, Martina cherry Lab Interpretation (test Abnormal code = 33480-4) [facility] [id number] 16:01:13 Test Item Value Reference Range Interpretation Comments POC-Glucose Meter (test 136 mg/dL 70-110 H : TE STED AT SLSL code = 1538) [address] [place] [address]: Citizen Participation Specialist/Techni [place] ID = [id number] for Castaneda, Martina cherry Lab Interpretation (test Abnormal code = 13733-0) [facility]-Glucose [id number] 16:01:13 Test Item Value Reference Range Interpretation Comments POC-Glucose Meter (test 136 mg/dL 70-110 H : TE STED AT SLSL code = 1538) [address] [place] [address]: Citizen Participation Specialist/Techni [place] ID = [id number] for Castaneda, Martina cherry Lab Interpretation (test Abnormal code = 86972-5) [facility]-GLUCOSE [id number] 16:01:13 Test Item Value Reference Range Interpretation Comments POC-GLUCOSE METER 136 mg/dL 70-110 H : TESTED A T [address] (BEAKER) (test code [address], = 1538) [place] [address]: Citizen Participation Specialist/Techni [place] ID = [id number] for Antwan jaime, Crystal POCT-GLUCOSE [id number] 11:30:14 Test Item Value Reference Range Interpretation Comments POC-GLUCOSE METER 112 mg/dL 70-110 H : TESTED A T [address] (BEAKER) (test code [address], = 1538) [place] [address]: Citizen Participation Specialist/Techni [place] ID = [id number] for Antwan antes, Crystal POCT-GLUCOSE [id number] 06:45:43 Test Item Value Reference Range Interpretation Comments POC-GLUCOSE METER 150 mg/dL 70-110 H : TESTED A T [address] (BEAKER) (test code [address], = 1538) [place] [address]: Citizen Participation Specialist/Techni [place] ID = [id number] for Taina Poe [id number] 06:05:04 Test Item Value Reference Range Interpretation Comments MAGNESIUM (BEAKER) (test code = 2.2 mg/dL 1.5-3.0 627) Citizen Participation Specialist ID - [id number] ID - [id number] ID - [id number] ID - [id number] METABOLIC [id number] 06:04:06 Test Item Value Reference Range Interpretation [...] 1092) DATA TO CALCULA TE ESTIMATED GFR. Citizen Participation Specialist ID - [id number] ID - [id number] ID - [id number] ID - [id number] ID - [id number] ID - [id number] ID - [id number] ID - [id number] ID - [id number] ID - [id number] W/PLT COUNT & AUTO DIFFERENTIAL 2021-11-12 05:53:41 [...] PERCENT (BEAKER) (test code = 2801) POCT-GLUCOSE [id number] 21:50:33 Test Item Value Reference Range Interpretation Comments POC-GLUCOSE METER 173 mg/dL 70-110 H : TESTED A T [facility] [address] (BEAKER) (test code [facility], = 1538) [place] [address]: Citizen Participation Specialist/Techni [place] ID = [id number] for Taina Poe POCT-GLUCOSE [id number] 16:45:23 Test Item Value Reference Range Interpretation Comments POC-GLUCOSE METER 134 mg/dL 70-110 H : TESTED A T [facility] (BEAKER) (test code [facility], = 1538) [place] [address]: Citizen Participation Specialist/Techni [place] ID = [id number] for Dapr emont, Heather POCT-GLUCOSE [id number] 11:45:21 Test Item Value Reference Range Interpretation Comments POC-GLUCOSE METER 125 mg/dL 70-110 H : TESTED A T [facility] (BEAKER) (test code [facility], = 1538) [place] [address]: Citizen Participation Specialist/Techni [place] ID = [id number] for Dapr emont, Heather Sputum Culture + Gram [id number] 08:54:21 Test Item Value Reference Range Interpretation Comments Result (test code = 4+ Normal respiratory 6463-4) luis eduardo present Gram Stain Result 3+ Mixed luis eduardo (test code = 1123) [facility] [id number] 08:54:21 Test Item Value Reference Range Interpretation Comments Result (test code = 4+ Normal respiratory 6463-4) luis eduardo present Gram Stain Result 3+ Mixed luis eduardo (test code = 1123) [facility] [id number] 08:54:21 Test Item Value Reference Range Interpretation Comments Result (test code = 4+ Normal respiratory 6463-4) luis eduardo present Gram Stain Result 3+ Mixed luis eduardo (test code = 1123) [facility] Gram [id number] 08:54:21 Test Item Value Reference Range Interpretation Comments Result (test code = 4+ Normal respiratory 6463-4) luis eduardo present Gram Stain Result 3+ Mixed luis eduardo (test code = 1123) [facility] GRAM [id number] 08:54:21 Test Item Value Reference Range Interpretation Comments CULTURE (BEAKER) 4+ Normal respiratory (test code = 1095) luis eduardo present GRAM STAIN RESULT 1+ White blood cells (BEAKER) (test code = seen 1123) GRAM STAIN RESULT 1+ epithelial cells (BEAKER) (test code = 53291) GRAM STAIN RESULT 3+ Mixed luis eduardo (BEAKER) (test code = 78383) RAD, CHEST, 1 VIEW, NON [id number] 07:33:00Reason for exam:->[facility]NA [facility] : 1950 Sex: MFINAL REPORT CHEST AP PORTABLE SEMIERECT Comparison exam: 11/09/2021 History provided: Pneumonia Heart size normal. Chronic pleural thickening at the right base. Lungs free of acute disease and vascularity normal. Signed: Carlos Navarro MDReport Verified Date/Time: 11/11/2021 07:33:28 Reading Location: [facility] Diagnostic Imaging Reading Room - [facility] 1.310.12 POCT-GLUCOSE [id number] 06:54:14 Test Item Value Reference Range Interpretation Comments POC-GLUCOSE METER 133 mg/dL 70-110 H : TESTED A T [facility] 1317 (BEAKER) (test code [address], = 1538) [facility] [address]: Citizen Participation Specialist/Techni [place] ID = [id number] for Taina Poe [id number] 04:53:42 Test Item Value Reference Range Interpretation Comments MAGNESIUM (BEAKER) (test code = 2.3 mg/dL 1.5-3.0 627) Citizen Participation Specialist ID - [id number] ID - [id number] ID - [id number] ID - [id number] BASIC METABOLIC [id number] 04:52:53 Test Item Value Reference Range Interpretation [...] 1092) DATA TO CALCULA TE ESTIMATED GFR. Citizen Participation Specialist ID - [id number] ID - [id number] ID - ocxf37Bcekzbir ID - [id number] ID - hwnn08Ncyybrao ID - [id number] ID - bsst40Smblncbx ID - [id number] ID - oioh66Qpxaveth ID - [id number] W/PLT COUNT & AUTO [id number] 04:28:30 Test Item Value Reference Range Interpretation [...] 2D Echo W/Doppler(CW/PW/Color)2021-11-11 00:37:05Ejection FractionSLEH ECHO [facility] W/Doppler(CW/PW/Color)2021-11-11 00:37:05Ejection FractionSLE ECHO HEARTLAB [facility]2D Echo W/Doppler(CW/PW/Color) 2021-11-11 00:37:05Ejection FractionSLE ECHO [facility]ARTLAB [facility]2D Echo W/Doppler(CW/PW/Color)2021-11-11 00:37:05Ejection FractionSLE ECHO [facility] CenterPO[facility] [id number] 20:59:54 Test Item Value Reference Range Interpretation Comments POC-GLUCOSE METER 148 mg/dL 70-110 H : TESTED A T [facility] [address]17 (BEAKER) (test code [address], = 1538) [place] [address]: Citizen Participation Specialist/Techni [place] ID = [id number] for Taina Poe POCT-GLUCOSE [id number] 15:51:00 Test Item Value Reference Range Interpretation Comments POC-GLUCOSE METER 156 mg/dL 70-110 H : TESTED A T [facility] [address] (BEAKER) (test code [address], = 1538) [place] [address]: Citizen Participation Specialist/Techni [place] ID = [id number] for Cerv antes, Crystal POCT-GLUCOSE [id number] 11:44:26 Test Item Value Reference Range Interpretation Comments POC-GLUCOSE METER 139 mg/dL 70-110 H : TESTED A T [facility] (BEAKER) (test code [address], = 1538) [place] [address]: Citizen Participation Specialist/Techni [place] ID = [id number] for Cerv antes, Crystal BASIC METABOLIC [id number] 07:34:29 Test Item Value Reference Range Interpretation [...] 1092) DATA TO CALCULA TE ESTIMATED GFR. Citizen Participation Specialist ID - DSENSONOperator ID - DSENSONOperator ID [...] (test code = 18 U/L 5-50 347) Citizen Participation Specialist ID - DSENSONOperator ID - DSENSONOperator ID - DSENSONOperator ID - DSENSONOperator ID - DSENSONOperator ID - DSENSONOperator ID - DSENSONOperator ID - DSENSONOperator ID - DSENSONOperator ID - [id number] W/PLT COUNT & AUTO [id number] 07:19:24 Test Item Value Reference Range Interpretation [...] (test code = 416) BASOPHILS ABSOLUTE COUNT ([facility]) 0.05 K/ L 0.00-0.20 (test code = 417) IMMATURE GRANULOCYTES-RELATIVE 1 % 0-0 H PERCENT ([facility]) (test code = 2801) POCT-GLUCOSE [id number] 07:05:35 Test Item Value Reference Range Interpretation Comments POC-GLUCOSE METER 129 mg/dL 70-110 H : TESTED A T [facility] 1317 ([facility]) (test code [facility], = 1538) [place] [address]: Citizen Participation Specialist/Techni [place] ID = [id number] for Anayeli ety, Ruth POCT-GLUCOSE [id number] 22:17:06 Test Item Value Reference Range Interpretation Comments POC-GLUCOSE METER 135 mg/dL 70-110 H : TESTED A T [facility] 1317 ([facility]) (test code [facility], = 1538) [place] [address]: Citizen Participation Specialist/Techni [place] ID = [id number] for Anayeli ety, Ruth POCT-GLUCOSE [id number] 16:21:48 Test Item Value Reference Range Interpretation Comments POC-GLUCOSE METER 178 mg/dL 70-110 H : Notified RN/MD: TESTED ([facility]) (test code AT [facility] [address] [place] [address] = 1538) [place] [id number]: Citizen Participation Specialist/Techni [place] ID = [id number] for Alee Calderon HEPATITIS PANEL, [id number] 14:58:49 Test Item Value Reference Range Interpretation Comments HEPATITIS A IGM ANTIBODY ([facility]) Nonreactive Nonreactive (test code = 498) HEPATITIS B CORE IGM ANTIBODY Nonreactive Nonreactive ([facility]) (test code = 645) HEPATITIS C ANTIBODY ([facility]) Nonreactive Nonreactive (test code = 367) HEPATITIS B SURFACE ANTIGEN (2) Nonreactive Nonreactive ([facility]) (test code = 2585) Citizen Participation Specialist ID - DBOperator ID - DBPOCT-GLUCOSE [id number] 12:30:38 Test Item Value Reference Range Interpretation Comments POC-GLUCOSE METER 184 mg/dL 70-110 H : Notified RN/MD: TESTED ([facility]) (test code AT [facility] [address] [place] [address] = 1538) [place] [address]: Citizen Participation Specialist/Techni [place] ID = [id number] for Alec Bush VENOUS DOPPLER LEGS, [id number] 10:54:00Reason for exam:->DVT [facility] : 1950 Sex: [...] of the bilateral lower extremity. Signed: Jayden Thacker MDReport Verified Date/Time: 11/09/2021 10:54:12 Reading Location: [facility] Radiology Reading Room RAD, CHEST, 1 VIEW, NON [id number] 09:00:00 Reason for exam:->PNAShould this be performed at the bedside?->Yes [facility] : 1950 Sex: [...] small right effusion are stable. Signed: Jayden ThackerMDReport Verified Date/Time: 11/09/2021 09:00:23 Reading Location: [facility] Radiology Reading Room POCT-GLUCOSE [id number] 07:33:54 Test Item Value Reference Range Interpretation Comments POC-GLUCOSE METER 156 mg/dL 70-110 H : Notified RN/MD: TESTED (BEAKER) (test code AT [facility] [address] = 1538) [facility] [address]: Citizen Participation Specialist/Techni [place] ID = [id number] for Alec Bush [id number] 05:00:02 Test Item Value Reference Range Interpretation Comments PARTIAL THROMBOPLASTIN 111.6 seconds 23.0-35.0 H Berna l Information TIME (BEAKER) (test (Auto Ou tput) code = 760) HIV-1 ANTIGEN WITH HIV-1/2 [id number] 04:53:13 Test Item Value Reference Range Interpretation Comments HIV-1 ANTIGEN WITH HIV 1\\T\\2 Nonreactive Nonreactive ANTIBODY (2) (BEAKER) (test code = 2586) Citizen Participation Specialist ID - [id number] METABOLIC [id number] 04:38:36 Test Item Value Reference Range Interpretation [...] 1092) DATA TO CALCULA TE ESTIMATED GFR. Citizen Participation Specialist ID - [id number] ID - [id number] ID - [id number] ID - VVJLARUEG321Qijduhhg ID - [id number] ID - [id number] ID - [id number] ID - [id number] ID - [id number] ID - [id number] FUNCTION [id number] 04:36:24 Test Item Value Reference Range Interpretation [...] (test code = 22 U/L 5-50 347) Citizen Participation Specialist ID - [id number] ID - [id number] ID - [id number] ID - [id number] ID - [id number] ID - [id number] ID - BBSIQYQPO609Pjfivvag ID - GASFYSEWE805Bwyyourv ID - IDWFYPEXF760Eevacahw ID - [id number] [id number] 04:30:27 Test Item Value Reference Range Interpretation Comments HEMOGLOBIN A1C (BEAKER) (test code = 5.8 % 4.3-6.1 368) Citizen Participation Specialist ID - [id number] W/PLT COUNT & AUTO [id number] 04:17:15 Test Item Value Reference Range Interpretation [...] PERCENT (BEAKER) (test code = 2801) TROPONIN [id number] 01:16:05 Test Item Value Reference Range Interpretation [...] failure, acidosis, acute neurological disease, and persistent tachyarrhythmia.Citizen Participation Specialist ID - [id number]-KBNGLHV [id number] 20:56:12 Test Item Value Reference Range Interpretation Comments POC-GLUCOSE METER 169 mg/dL 70-110 H : Notified RN/MD: TESTED (BEAKER) (test code AT [address] = 1538) [facility] [address]: Citizen Participation Specialist/Techni [place] ID = [id number] for Dottie Collins [id number] 20:43:27 Test Item Value Reference Range Interpretation Comments PARTIAL THROMBOPLASTIN 43.3 seconds 23.0-35.0 H Final Information TIME (BEAKER) (test (Auto Ou tput) code = 760) [id number] 17:13:58 Test Item Value Reference Range Interpretation Comments GLUCOSE RANDOM (BEAKER) (test code 247 mg/dL 70-110 H = 652) Citizen Participation Specialist ID - DSENSONTRPIERREN [id number] 17:03:16 Test Item Value Reference Range Interpretation Comments TROPONIN I (BEAKER) (test code = 0.57 ng/mL 0.00-0.15 397) Troponin I (TnI) levels [...] failure, acidosis, acute neurological disease, and persistent tachyarrhythmia.Citizen Participation Specialist ID - DSENSONLegionella antigen, [id number] 14:05:17 Test Item Value Reference Range Interpretation Comments Legionella Urine Negative - see Negative for L. Antigen (test code comment pneumophi la = 55944-3) serogroup 1 ant igen, suggesting no r ecent or current infe ction with this serog roup. Legionellosis c annot be ruled out si nce other serogroup s and species may cau se disease. [facility] CenterLegion[facility] antigen, [id number] 14:05:17 Test Item Value Reference Range Interpretation Comments Legionella Urine Negative - see Negative for L. Antigen (test code comment pneumophi la = 70088-1) serogroup 1 ant igen, suggesting no r ecent or current infe ction with this serog roup. Legionellosis c annot be ruled out si nce other serogroup s and species may cau se disease. [facility] CenterLegionella antigen, [id number] 14:05:17 Test Item Value Reference Range Interpretation Comments Legionella Urine Negative - see Negative for L. Antigen (test code comment pneumophi la = 13025-3) serogroup 1 ant igen, suggesting no r ecent or current infe ction with this serog roup. Legionellosis c annot be ruled out si nce other serogroup s and species may cau se disease. [facility] CenterLegionella antigen, [id number] 14:05:17 Test Item Value Reference Range Interpretation Comments Legionella Urine Negative - see Negative for L. Antigen (test code comment pneumophi la = 66735-4) serogroup 1 ant igen, suggesting no r ecent or current infe ction with this serog roup. Legionellosis c annot be ruled out si nce other serogroup s and species may cau se disease. [facility] CenterLEGIONELLA ANTIGEN, [id number] 14:05:17 Test Item Value Reference Range Interpretation Comments L. PNEUMOPHILA Negative - see Negative fo r L. SEROGP 1 UR AG comment pneumophila (BEAKER) (test code serogrou p 1 antigen, = 1156) suggesting no r ecent or current infe ction with this serog roup. Legionellosis c annot be ruled out si nce other serogroup s and species may cau se disease. U/S, RENAL, [id number] 14:05:00Reason for exam:->elevated creatine [facility] : 1950 Sex: [...] normal renal ultrasound. No hydronephrosis Signed: Cindy Saucedo MDReport Verified Date/Time: 11/08/2021 14:05:00 Reading Location: [address] Body Reading Room Strep pneumoniae [id number] 14:04:46 Test Item Value Reference Range Interpretation Comments Strep pneumoniae Presumptive negative Presumptive Antigen (test code = [place] [address]-9) pneumonia - see pneumococcal comment pneumonia - [...] test. Lab Interpretation Normal (test code = 57360-9) [facility] pneumoniae [id number] 14:04:46 Test Item Value Reference Range Interpretation Comments Strep pneumoniae Presumptive negative Presumptive Antigen (test code = [place] [address]-3) pneumonia - see pneumococcal comment pneumonia - [...] test. Lab Interpretation Normal (test code = 16707-1) [facility] pneumoniae [id number] 14:04:46 Test Item Value Reference Range Interpretation Comments Strep pneumoniae Presumptive negative Presumptive Antigen (test code = [place] [address]-3) pneumonia - see pneumococcal comment pneumonia - [...] test. Lab Interpretation Normal (test code = 15277-9) [facility] pneumoniae [id number] 14:04:46 Test Item Value Reference Range Interpretation Comments Strep pneumoniae Presumptive negative Presumptive Antigen (test code = [place] [address]-8) pneumonia - see pneumococcal comment pneumonia - [...] test. Lab Interpretation Normal (test code = 97703-9) [facility] PNEUMONIAE [id number] 14:04:46 Test Item Value Reference Range Interpretation [...] the detection limit of the test. TROPONIN [id number] 12:03:41 Test Item Value Reference Range Interpretation [...] failure, acidosis, acute neurological disease, and persistent tachyarrhythmia.Citizen Participation Specialist ID - DSENSONBASIC METABOLIC [id number] 11:54:31 Test Item Value Reference Range Interpretation [...] 1092) DATA TO CALCULA TE ESTIMATED GFR. Citizen Participation Specialist ID - DSENSONOperator ID - DSENSONOperator ID - DSENSONOperator ID - DSENSONOperator ID - DSENSONOperator ID - DSENSONOperator ID - DSENSONOperator ID - DSENSONOperator ID - DSENSONOperator ID - DSENSONOperator ID - DSENSONOperator ID - DSENSONOperator ID - [id number] 11:45:04 Test Item Value Reference Range Interpretation Comments PARTIAL THROMBOPLASTIN 44.4 seconds 23.0-35.0 H Final Information TIME (BEAKER) (test (Auto Ou tput) code = 760) POCT-GLUCOSE [id number] 11:43:30 Test Item Value Reference Range Interpretation Comments POC-GLUCOSE METER 141 mg/dL 70-110 H : Notified RN/MD: TESTED (BEAKER) (test code AT [facility] [address] = 1538) [facility] [address]: Citizen Participation Specialist/Techni [place] ID = [id number] for Alec Bush PUL PERF IMAGING, [id number] 09:49:00Unlisted Reason for Exam - Click Yes and Enter Reason Below->No [facility] : 1950 Sex: MFINAL REPORT PROCEDURE: LUNG SCAN - perfusion only CPT CODE: 78734 INDICATION: Elevated D-dimer PROTOCOL: 5.8 mCi of [...] loss in the right lung. Signed: Nima Gutierrez MDReport Verified Date/Time: 11/08/2021 09:49:42 CT, CHEST, WITHOUT [id number] 09:47:00Unlisted Reason for Exam - Click Yes and Enter Reason Below->No [facility] 1950 Sex: [...] 11/08/2021 09:47:14 RAD, CHEST, 1 VIEW, NON [id number] 08:47:00Reason for exam:->ETT placementShould this be performed at the bedside?->Yes [facility] : 1950 Sex: MFINAL REPORT TECHNIQUE: Frontal view of the chest. INDICATION: ETT placement. COMPARISON:11/08/2021 at 3:18 AM. FINDINGS: LINES/TUBES: Endotracheal tube [...] be helpful for further evaluation. Signed: Gómez Anderson MDReport Verified Date/Time: 11/08/2021 08:47:55 APTT 2021-11-08 06:22:16 Test Item Value Reference Range Interpretation Comments PARTIAL THROMBOPLASTIN 22.9 seconds 23.0-35.0 L Final Information TIME (BEAKER) (test (Auto Ou tput) code = 760) LACTIC ACID, [id number] 05:34:16 Test Item Value Reference Range Interpretation Comments LACTATE BLOOD 1.89 mmol/L See_Comment [Automated me ssage] VENOUS (2) (BEAKER) The syst em which (test code = 2872) generated this result transmitted ref erence range: 0.50-<2. 00. The reference range was not used to interpr et this result as normal/abnormal . Citizen Participation Specialist ID - LITOOperator ID - LITOOperator ID - LITOOperator ID - ROSALBA [id number] 05:31:10 Test Item Value Reference Range Interpretation Comments PROCALCITONIN (BEAKER) (test code 0.15 ng/mL <0.05 H = 3036) SEPSIS RISK (ng/mL)Low: 0.05-0.50Intermediate: 0.51-2.00High: >=2.01 Urinalysis with Microscopic If [id number] 05:13:27 Test Item Value Reference Range Interpretation Comments Color, UA (test code = 5778-6) Yellow Clarity, UA (test code = 5767-9) Clear Specific [place], UA (test code = 1.015 1.001-1.035 5811-5) pH, UA (test code = 5803-2) 5.0 5.0-8.0 Protein, UA (test code = 02555-2) Negative Negative Glucose, UA (test code = 365) Negative Negative Ketones, UA (test code = 2514-8) Negative Negative Bilirubin, UA (test code = 69188-6) Negative Negative Blood, UA (test code = 71445-8) Small Negative A Nitrite, UA (test code = 5802-4) Negative Negative Leukocytes, UA (test code = 5799-2) Negative Negative Urobilinogen, UA (test code = 0.2 mg/dL 0.2-1.0 67944-4) Specimen Source (test code = 2795) Lab Interpretation (test code = Abnormal 08328-9) [facility] with Microscopic If [id number] 05:13:27 Test Item Value Reference Range Interpretation Comments Color, UA (test code = 5778-6) Yellow Clarity, UA (test code = 5767-9) Clear Specific [place], UA (test code = 1.015 1.001-1.035 5811-5) pH, UA (test code = 5803-2) 5.0 5.0-8.0 Protein, UA (test code = 56515-3) Negative Negative Glucose, UA (test code = 365) Negative Negative Ketones, UA (test code = 2514-8) Negative Negative Bilirubin, UA (test code = 01581-1) Negative Negative Blood, UA (test code = 36611-1) Small Negative A Nitrite, UA (test code = 5802-4) Negative Negative Leukocytes, UA (test code = 5799-2) Negative Negative Urobilinogen, UA (test code = 0.2 mg/dL 0.2-1.0 71850-1) Specimen Source (test code = 2795) Lab Interpretation (test code = Abnormal 00580-3) [facility] with Microscopic If [id number] 05:13:27 Test Item Value Reference Range Interpretation Comments Color, UA (test code = 5778-6) Yellow Clarity, UA (test code = 5767-9) Clear Specific [place], UA (test code = 1.015 1.001-1.035 5811-5) pH, UA (test code = 5803-2) 5.0 5.0-8.0 Protein, UA (test code = 51488-4) Negative Negative Glucose, UA (test code = 365) Negative Negative Ketones, UA (test code = 2514-8) Negative Negative Bilirubin, UA (test code = 28692-9) Negative Negative Blood, UA (test code = 98252-0) Small Negative A Nitrite, UA (test code = 5802-4) Negative Negative Leukocytes, UA (test code = 5799-2) Negative Negative Urobilinogen, UA (test code = 0.2 mg/dL 0.2-1.0 81272-0) Specimen Source (test code = 2795) Lab Interpretation (test code = Abnormal 89395-8) [facility] Center[facility] with Microscopic If [id number] 05:13:27 Test Item Value Reference Range Interpretation Comments Color, UA (test code = 5778-6) Yellow Clarity, UA (test code = 5767-9) Clear Specific [place], UA (test code = 1.015 1.001-1.035 5811-5) pH, UA (test code = 5803-2) 5.0 5.0-8.0 Protein, UA (test code = 02860-8) Negative Negative Glucose, UA (test code = 365) Negative Negative Ketones, UA (test code = 2514-8) Negative Negative Bilirubin, UA (test code = 27915-5) Negative Negative Blood, UA (test code = 41700-4) Small Negative A Nitrite, UA (test code = 5802-4) Negative Negative Leukocytes, UA (test code = 5799-2) Negative Negative Urobilinogen, UA (test code = 0.2 mg/dL 0.2-1.0 03160-9) Specimen Source (test code = 2795) Lab Interpretation (test code = Abnormal 37159-7) [facility] CenterURINALYSIS WITH MICROSCOPIC IF [id number] 05:13:27 Test Item Value Reference Range Interpretation [...] SOURCE(BEAKER) (test code = 2795) Urinalysis Microscopic [id number] 05:13:21 Test Item Value Reference Range Interpretation Comments RBC, UA (test code = <5 See_Comment [Autom ated message] 799-7) The system Andela generated this result transmitted ref erence range: /HPF. Th e reference range was not used to int erpret this result as normal/abnormal . WBC, UA (test code = None Seen See_Comment [Autom ated message] 71032-2) The system Andela generated this result transmitted ref erence range: /HPF. Th e reference range was not used to int erpret this result as normal/abnormal . Bacteria, UA (test Occasional code = 64550-1) SQUAMOUS EPITHELIAL None Seen See_Comment [Automa josh message] (test code = 95568-9) The sy stem which generated this result transmitted ref erence range: /HPF. Th e reference range was not used to int erpret this result as normal/abnormal . HYALINE CASTS (test 0-5 See_Comment [Automa josh message] code = 5796-8) The system VenJuvo generated this result transmitted ref erence range: /LPF. Th e reference range was not used to int erpret this result as normal/abnormal . [facility] Microscopic [id number] 05:13:21 Test Item Value Reference Range Interpretation Comments RBC, UA (test code = <5 See_Comment [Autom ated message] 799-7) The system Andela generated this result transmitted ref erence range: /HPF. Th e reference range was not used to int erpret this result as normal/abnormal . WBC, UA (test code = None Seen See_Comment [Autom ated message] 64185-8) The system Andela generated this result transmitted ref erence range: /HPF. Th e reference range was not used to int erpret this result as normal/abnormal . Bacteria, UA (test Occasional code = 03667-0) SQUAMOUS EPITHELIAL None Seen See_Comment [Automa josh message] (test code = 54759-0) The sy stem which generated this result transmitted ref erence range: /HPF. Th e reference range was not used to int erpret this result as normal/abnormal . HYALINE CASTS (test 0-5 See_Comment [Automa josh message] code = 5796-8) The system VenJuvo generated this result transmitted ref erence range: /LPF. Th e reference range was not used to int erpret this result as normal/abnormal . [facility]opic [id number] 05:13:21 Test Item Value Reference Range Interpretation Comments RBC, UA (test code = <5 See_Comment [Autom ated message] 799-7) The system Andela generated this result transmitted ref erence range: /HPF. Th e reference range was not used to int erpret this result as normal/abnormal . WBC, UA (test code = None Seen See_Comment [Autom ated message] 64678-9) The system Andela generated this result transmitted ref erence range: /HPF. Th e reference range was not used to int erpret this result as normal/abnormal . Bacteria, UA (test Occasional code = 91237-9) SQUAMOUS EPITHELIAL None Seen See_Comment [Automa josh message] (test code = 16066-8) The sy stem which generated this result transmitted ref erence range: /HPF. Th e reference range was not used to int erpret this result as normal/abnormal . HYALINE CASTS (test 0-5 See_Comment [Automa josh message] code = 5796-8) The system VenJuvo generated this result transmitted ref erence range: /LPF. Th e reference range was not used to int erpret this result as normal/abnormal . [facility] [id number] 05:13:21 Test Item Value Reference Range Interpretation Comments RBC, UA (test code = <5 See_Comment [Autom ated message] 799-7) The system Andela generated this result transmitted ref erence range: /HPF. Th e reference range was not used to int erpret this result as normal/abnormal . WBC, UA (test code = None Seen See_Comment [Autom ated message] 49244-5) The system Andela generated this result transmitted ref erence range: /HPF. Th e reference range was not used to int erpret this result as normal/abnormal . Bacteria, UA (test Occasional code = 26111-9) SQUAMOUS EPITHELIAL None Seen See_Comment [Automa josh message] (test code = 30816-4) The sy stem which generated this result [...] int erpret this result as normal/abnormal . [facility] CenterURINALYSIS [id number] 05:13:21 Test Item Value Reference Range Interpretation Comments RBC UA-MANUAL (BEAKER) (test <5 /HPF code = 1659) WBC UA-MANUAL (BEAKER) (test None Seen /HPF code = 1661) BACTERIA (BEAKER) (test code = Occasional 517) SQUAMOUS EPITHELIAL MANUAL None Seen /HPF (BEAKER) (test code = 1663) HYALINE CASTS MANUAL (BEAKER) 0-5 /LPF (test code = 1665) TROPONIN [id number] 05:01:28 Test Item Value Reference Range Interpretation [...] failure, acidosis, acute neurological disease, and persistent tachyarrhythmia.Citizen Participation Specialist ID - LITOBASIC METABOLIC PANEL 2021-11-08 05:00:17 [...] 1092) DATA TO CALCULA TE ESTIMATED GFR. Citizen Participation Specialist ID - LITOOperator ID - LITOOperator ID - LITOOperator ID - LITOOperator ID - LITOOperator ID - LITOOperator ID - LITOOperator ID - LITOOperator ID - LITOOperator ID - LITOB-TYPE NATRIURETIC FACTOR (BNP)2021-11-08 05:00:11 Test Item Value Reference Range Interpretation Comments B-TYPE NATRIURETIC PEPTIDE (BEAKER) 480 pg/mL 0-100 H (test code = 700) Citizen Participation Specialist ID - LITOCBC W/PLT COUNT & AUTO [id number] 04:56:38 Test Item Value Reference Range Interpretation [...] H PERCENT (BEAKER) (test code = 2801) [id number] 04:53:09 Test Item Value Reference Range Interpretation Comments D-DIMER QUANTITATIVE 5.80 MG/L FEU <0.50 H Final Information (BEAKER) (test code = (Auto Output) 671) REGARDING D-DIMER RESULTS: The 98% NPV (Negative Predictive Value) for DVT/PE exclusion is 0.50 mg/LFEU as suggested by the crimper operator and as approved by the FDA.PROTHROMBIN [id number] 04:52:30 Test Item Value Reference Range Interpretation Comments PROTIME (BEAKER) 11.0 seconds 9.3-12.0 Final Infor mation (test code = 759) (Auto Outp ut) INR (BEAKER) (test 1.00 See_Comment Final Inf ormation code = 370) (Auto Output) [Automated mess age] The system Andela generated this result transmitted ref erence range: <=5.90. The reference range was not used to int erpret this result as normal/abnormal . RECOMMENDED COUMADIN/WARFARIN INR THERAPY RANGESSTANDARD DOSE: 2.0 - 3.0 Includes: PROPHYLAXIS for venous thrombosis, systemic embolization; TREATMENT for venous thrombosis and/or pulmonary embolus.HIGH RISK: Target INR is 2.5-3.5 for patients with mechanical heart valves.HEMOGLOBIN [id number] 04:51:27 Test Item Value Reference Range Interpretation Comments HEMOGLOBIN A1C (BEAKER) (test code = 5.7 % 4.3-6.1 368) Citizen Participation Specialist ID - LITOHEPATIC FUNCTION [id number] 04:50:07 Test Item Value Reference Range Interpretation [...] (test code = 31 U/L 5-50 347) Citizen Participation Specialist ID - LITOOperator ID - LITOOperator ID - LITOOperator ID - LITOOperator ID - LITOOperator ID - LITOOperator ID - [id number] 04:49:45 Test Item Value Reference Range Interpretation Comments MAGNESIUM (BEAKER) (test code = 2.8 mg/dL 1.5-3.0 627) Citizen Participation Specialist ID - LITOOperator ID - LITOOperator ID - LITOOperator ID - ROSALBA [id number] 04:46:46 Test Item Value Reference Range Interpretation Comments PHOSPHORUS (BEAKER) (test code = 4.8 mg/dL 2.5-4.5 H 604) Citizen Participation Specialist ID - LITOPOCT-GLUCOSE [id number] 04:11:36 Test Item Value Reference Range Interpretation Comments POC-GLUCOSE METER 156 mg/dL 70-110 H : TESTED A [facility] 13[address] (BEAKER) (test code [facility] [address], = [address]) [facility] 77 478: Citizen Participation Specialist/Techni [place] ID = [id number] for Real Lei, ABDOMEN/KUB 1 VIEW [id number] 04:02:00Reason for exam:->NG tube [facility] : 1950 Sex: [...] on 204:02 AMRAD, CHEST, 1 VIEW, NON [id number] 03:57:00Reason for exam:->AHRFShould this be performed at the bedside?->Yes [facility] : 1950 Sex: [...] contours. Additional findings: None. Signed: Rigo Whaley Verified Date/Time: 11/08/2021 03:57:41 Blood gas, [id number] 03:54:11 Test Item Value Reference Range Interpretation [...] 75 Lab Interpretation Abnormal (test code = 72288-3) [facility] CenterBlood [facility], [id number] 03:54:11 Test Item Value Reference Range Interpretation Comments pH, Arterial (test code 7.38 7.35-7.45 = 2744-1) pCO2, Arterial (test 40 See_Comment [Autom ated code = 2019-) message] The system which generated this result [...] 75 Lab Interpretation Abnormal (test code = 11471-8) [facility] Center[facility], [id number] 03:54:11 Test Item Value Reference Range Interpretation [...] 75 Lab Interpretation Abnormal (test code = 98823-4) [facility] CenterBlood [facility], [id number] 03:54:11 Test Item Value Reference Range Interpretation Comments pH, Arterial (test code 7.38 7.35-7.45 = 2744-1) pCO2, Arterial (test 40 See_Comment [Autom ated code = 2019-) message] The system which generated this result [...] 75 Lab Interpretation Abnormal (test code = 25079-3) [facility] CenterBLOOD GAS, [id number] 03:54:11 Test Item Value Reference Range Interpretation [...] 1818) FIO2 (BEAKER) (test code = 1819) 75.0"
--- NOTE | 2022-06-01 01:09 | EDPHYS ---
Physician Documentation [facility] Name: Gabo Chow Sr Age: 71 yrs Sex: Male : 1950 Arrival Date: 05/31/2022 Time: 22:23 Bed 5 Private MD: ED Physician Miah Roman HPI: 05/31 23:30 This 71 yrs old Male presents to ER via EMS with complaints of Shortness of breath. rt 23:30 The patient has shortness of breath at rest, with light activity. Onset: The rt symptoms/episode began/occurred 3 day(s) ago. Duration: The symptoms are chronic. The patient's shortness of breath is aggravated by exertion, is alleviated by nebulizer treatment. Associated signs and symptoms: Pertinent positives: Pertinent negatives: chest pain, loss of consciousness. Severity of symptoms: At their worst the symptoms were moderate. 3 days afterPresents to the ED with a dyspnea that is chronic, however, is worsening over the past he ran out of his prednisone at home. Reports a cough. Denies any hypoxia. Denies other acute complaints at this time, symptoms are moderate in severity, no other aggravating or alleviating factors.. Historical: - Allergies: 22:24 No Known Allergies; as6 - Home Meds: 22:24 Albuterol Inhl [Active]; amlodipine oral [Active]; Aspirin Oral [Active]; carvedilol as6 Oral [Active]; clopidogrel Oral [Active]; fluticasone [Active]; Lasix Oral [Active]; lisinopril Oral [Active]; - PMHx: 22:24 CHF; COPD; HTN; Hypertension; CO; Myocardial infarction; as6 - PSHx: 22:24 heart stent; Stented artery; as6 - Immunization history:: Client reports having NOT received the Covid vaccine. Flu vaccine is up to date. - Social history:: Smoking status: Patient/guardian denies using tobacco. - Family history:: not pertinent. ROS: 23:30 Constitutional: Negative for fever, chills, and weight loss, Eyes: Negative for injury, rt pain, redness, and discharge, ENT: Negative for injury, pain, and discharge, Neck: Negative for injury, pain, and swelling, Cardiovascular: Negative for chest pain, palpitations, and edema, Abdomen/GI: Negative for abdominal pain, nausea, vomiting, diarrhea, and constipation, MS/Extremity: Negative for injury and deformity, Skin: Negative for injury, rash, and discoloration, Neuro: Negative for headache, weakness, numbness, tingling, and seizure, Psych: Negative for depression, anxiety, suicide ideation, homicidal ideation, and hallucinations. 23:30 Respiratory: Positive for cough, shortness of breath, wheezing. Exam: 23:30 Constitutional: This is a well developed, well nourished patient who is awake, alert, rt and in no acute distress. Head/Face: Normocephalic, atraumatic. Eyes: Pupils equal round and reactive to light, extra-ocular motions intact. Lids and lashes normal. Conjunctiva and sclera are non-icteric and not injected. Cornea within normal limits. Periorbital areas with no swelling, redness, or edema. ENT: Nares patent. No nasal discharge, no septal abnormalities noted. Tympanic membranes are normal and external auditory canals are clear. Oropharynx with no redness, swelling, or masses, exudates, or evidence of obstruction, uvula midline. Mucous membranes moist. Neck: Trachea midline, no thyromegaly or masses palpated, and no cervical lymphadenopathy. Supple, full range of motion without nuchal rigidity, or vertebral point tenderness. No Meningismus. Chest/axilla: Normal chest wall appearance and motion. Nontender with no deformity. No lesions are appreciated. Cardiovascular: Regular rate and rhythm with a normal S1 and S2. No gallops, murmurs, or rubs. Normal PMI, no JVD. No pulse deficits. Abdomen/GI: Soft, non-tender, with normal bowel sounds. No distension or tympany. No guarding or rebound. No evidence of tenderness throughout. Skin: Warm, dry with normal turgor. Normal color with no rashes, no lesions, and no evidence of cellulitis. MS/ Extremity: Pulses equal, no cyanosis. Neurovascular intact. Full, normal range of motion. Neuro: Awake and alert, GCS 15, oriented to person, place, time, and situation. Cranial nerves II-XII grossly intact. Motor strength 5/5 in all extremities. Sensory grossly intact. Cerebellar exam normal. Normal gait. Psych: Awake, alert, with orientation to person, place and time. Behavior, mood, and affect are within normal limits. 23:30 ECG was reviewed by the Attending Physician. 23:30 Respiratory: Wheezes and diminished breath sounds in all lung owusu, mildly increased work of breathing.. Vital Signs: 22:23 BP 156 / 74; Pulse 83; Resp 25 S; Temp 98.6(O); Pulse Ox 98% on R/A; Weight 74.84 kg as6 (R); Height 6 ft. 0 in. (182.88 cm) (R); Pain 0/10; 22:23 BP 156 / 74; Pulse 83; Resp 25 S; Pulse Ox 98% on 4 lpm NC; ha1 23:50 BP 124 / 53; Pulse 78; Resp 21 S; Pulse Ox 100% on 4 lpm NC; ha1 06/01 00:50 BP 129 / 62; Pulse 79; Resp 19 S; Pulse Ox 100% on 4 lpm NC; ha1 02:50 BP 123 / 60; Pulse 77; Resp 18 S; Pulse Ox 99% 4 lpm ; ha1 03:39 BP 116 / 62; Pulse 77; Resp 18 S; Pulse Ox 99% on 4 lpm NC; ha1 05/31 22:23 Body Mass Index 22.38 (74.84 kg, 182.88 cm) as6 MDM: 05/31 22:28 Patient medically screened. rt 06/01 00:40 Differential diagnosis: Anemia CHF exacerbation, Chronic Obstructive Pulmonary Disease rt pneumonia, Pneumothorax Pulmonary Embolism. Data reviewed: vital signs, nurses notes, old medical records, lab test result(s), EKG, radiologic studies. ED course: Presents to the ED with worsening dyspnea. He is noted to have some respiratory distress. X-ray shows a worsening right-sided consolidation, concerning for pneumonia. Will treat with antibiotics. The patient has an elevated troponin of her baseline without acute ischemic changes on his EKG, EKG appears to be unchanged. Rest of the patient's work-up is unremarkable, low suspicion for pulmonary embolism. Patient will be admitted for further care.. 05/31 22:28 Order name: CBC with Diff; Complete Time: 23:36 rt 05/31 22:28 Order name: CMP; Complete Time: 23:36 rt 05/31 22:28 Order name: BNP; Complete Time: 23:36 rt 05/31 22:28 Order name: Troponin High Sensitivity; Complete Time: 23:36 rt 06/01 00:39 Order name: Lactate w/ 2H reflex if indic.; Complete Time: 01:26 rt 12 00:39 Order name: Blood Culture Adult (2) rt 05/31 22:28 Order name: Chest Single View XRAY rt 06/01 01:27 Order name: COVID-19/FLU A+B; Complete Time: 02:41 bb EC/05 23:30 Rate is 79 beats/min. Rhythm is regular, Sinus Rhythm with Occasional PVCs. Left axis rt deviation noted. NH interval is normal. QRS interval is normal. No Q waves. Clinical impression: NSR w/ Non-specific ST/T Changes. Interpreted by me. Administered Medications: 23:18 Drug: DuoNeb (albuterol 2.5 mg, ipratropium 0.5 mg) (3:1) (2.5 mg - 0.5 mg) 3 ml Route: ha1 Nebulizer; 23:45 Follow up: Response: No adverse reaction ha1 23:18 Drug: SOLU-Medrol (methylPrednisoLONE) 125 mg Route: IVP; Site: left antecubital; ha1 06/01 00:15 Follow up: Response: No adverse reaction ha1 02:24 Drug: LevaQUIN (levofloxacin) 750 mg Route: IVPB; Site: left antecubital; ha1 04:02 Follow up: Response: No adverse reaction; IV Status: Completed infusion; IV Intake: ha1 100ml Disposition Summary: 06/01/22 01:08 Hospitalization Ordered Hospitalization Status: Inpatient Admission rt Provider: Ruslan Clements [facility] Condition: Fair rt Problem: an ongoing problem rt Symptoms: have improved rt Bed/Room Type: Standard rt Room Assignment: 228(06/01/22 03:37) mw Diagnosis - Pneumonia, unspecified organism rt - COPD/ Chronic obstructive pulmonary disease, unspecified rt Forms: - Medication Reconciliation Form rt - SBAR form rt Signatures: Dispatcher [employer] Radha Miguel RN RN Fletcher Escobedo, CLOTHING ROOM SUPERVISOR-C CLOTHING ROOM SUPERVISOR-Cla1 Billy Solares RN RN as6 Alyssa Bell RN RN ha1 Miah Roman MD MD rt Corrections: (The following items were deleted from the chart) 03:37 01:08 rt mw
--- NOTE | 2022-06-01 01:09 | ER ---
Nurse's Notes [facility] Name: Gabo Chow Sr Age: 71 yrs Sex: Male : 1950 Arrival Date: 05/31/2022 Time: 22:23 Bed 5 Private MD: Diagnosis: Pneumonia, unspecified organism;COPD/ Chronic obstructive pulmonary disease, unspecified Presentation: 05/31 22:23 Chief complaint: EMS states: called out for shortness of breath. pt has history of as6 COPD. Coronavirus screen: At this time, the client does not indicate any symptoms associated with coronavirus-19. Ebola Screen: No symptoms or risks identified at this time. Initial Sepsis Screen: Does the patient meet any 2 criteria? No. Patient's initial sepsis screen is negative. Does the patient have a suspected source of infection? No. Patient's initial sepsis screen is negative. Risk Assessment: Do you want to hurt yourself or someone else? Patient reports no desire to harm self or others. Onset of symptoms was May 31, 2022. 22:23 Method Of Arrival: EMS: [facility] as6 22:23 Acuity: ALLI 3 as6 Historical: - Allergies: 22:24 No Known Allergies; as6 - Home Meds: 22:24 Albuterol Inhl [Active]; amlodipine oral [Active]; Aspirin Oral [Active]; carvedilol as6 Oral [Active]; clopidogrel Oral [Active]; fluticasone [Active]; Lasix Oral [Active]; lisinopril Oral [Active]; - PMHx: 22:24 CHF; COPD; HTN; Hypertension; AR; Myocardial infarction; as6 - PSHx: 22:24 heart stent; Stented artery; as6 - Immunization history:: Client reports having NOT received the Covid vaccine. Flu vaccine is up to date. - Social history:: Smoking status: Patient/guardian denies using tobacco. - Family history:: not pertinent. Screenin:25 Abuse screen: Denies threats or abuse. Nutritional screening: No deficits noted. as6 Tuberculosis screening: No symptoms or risk factors identified. Fall Risk None identified. Assessment: 22:26 General: Appears in no apparent distress. Behavior is calm, cooperative. Pain: Denies as6 pain. Neuro: Level of Consciousness is awake, alert, obeys commands, Oriented to person, place, time, situation. Cardiovascular: Reports shortness of breath. Respiratory: Reports shortness of breath Respiratory effort is even, labored, Breath sounds are coarse bilaterally. 23:19 Reassessment: Patient and/or family updated on plan of care and expected duration. Pain ha1 level reassessed. Patient is alert, oriented x 3, equal unlabored respirations, skin warm/dry/pink. getting breathing treatment. family member at bedside. 06/01 00:10 Reassessment: Patient and/or family updated on plan of care and expected duration. Pain ha1 level reassessed. Patient is alert, oriented x 3, equal unlabored respirations, skin warm/dry/pink. Patient denies pain at this time. Patient states symptoms have improved. 01:09 Reassessment: Patient and/or family updated on plan of care and expected duration. Pain ha1 level reassessed. Patient is alert, oriented x 3, equal unlabored respirations, skin warm/dry/pink. Patient denies pain at this time. Patient states symptoms have improved. 02:10 Reassessment: Patient and/or family updated on plan of care and expected duration. Pain ha1 level reassessed. Patient is alert, oriented x 3, equal unlabored respirations, skin warm/dry/pink. Patient denies pain at this time. 03:10 Reassessment: Patient and/or family updated on plan of care and expected duration. Pain ha1 level reassessed. Patient is alert, oriented x 3, equal unlabored respirations, skin warm/dry/pink. Patient denies pain at this time. Vital Signs: 05/31 22:23 BP 156 / 74; Pulse 83; Resp 25 S; Temp 98.6(O); Pulse Ox 98% on R/A; Weight 74.84 kg as6 (R); Height 6 ft. 0 in. (182.88 cm) (R); Pain 0/10; 22:23 BP 156 / 74; Pulse 83; Resp 25 S; Pulse Ox 98% on 4 lpm NC; ha1 23:50 BP 124 / 53; Pulse 78; Resp 21 S; Pulse Ox 100% on 4 lpm NC; ha1 06/01 00:50 BP 129 / 62; Pulse 79; Resp 19 S; Pulse Ox 100% on 4 lpm NC; ha1 02:50 BP 123 / 60; Pulse 77; Resp 18 S; Pulse Ox 99% 4 lpm ; ha1 03:39 BP 116 / 62; Pulse 77; Resp 18 S; Pulse Ox 99% on 4 lpm NC; ha1 12 22:23 Body Mass Index 22.38 (74.84 kg, 182.88 cm) as6 ED Course: 05/31 22:23 Patient arrived in ED. as6 22:24 Triage completed. as6 22:25 Arm band placed on. as6 22:25 Placed in gown. Bed in low position. Call light in reach. Side rails up X2. Client as6 placed on continuous cardiac and pulse oximetry monitoring. NIBP monitoring applied. 22:28 Miah Roman MD is Attending Physician. rt 22:30 Billy Solares RN is Primary Nurse. as6 22:35 Inserted saline lock: 22 gauge in left antecubital area, using aseptic technique. Blood ha1 collected. 22:58 Chest Single View XRAY In Process Unspecified. EDMS 23:02 Troponin High Sensitivity Sent. ha1 23:02 BNP Sent. ha1 23:02 CMP Sent. ha1 23:02 CBC with Diff Sent. ha1 06/01 01:08 Ruslan Clements MD is Hospitalizing Provider. rt 01:08 Lactate w/ 2H reflex if indic. Sent. ha1 02:13 COVID-19/FLU A+B Sent. ha1 04:45 No provider procedures requiring assistance completed. Patient admitted, IV remains in as6 place. Administered Medications: 05/31 23:18 Drug: DuoNeb (albuterol 2.5 mg, ipratropium 0.5 mg) (3:1) (2.5 mg - 0.5 mg) 3 ml Route: ha1 Nebulizer; 23:45 Follow up: Response: No adverse reaction ha1 23:18 Drug: SOLU-Medrol (methylPrednisoLONE) 125 mg Route: IVP; Site: left antecubital; ha1 06/01 00:15 Follow up: Response: No adverse reaction ha1 02:24 Drug: LevaQUIN (levofloxacin) 750 mg Route: IVPB; Site: left antecubital; ha1 04:02 Follow up: Response: No adverse reaction; IV Status: Completed infusion; IV Intake: ha1 100ml Medication: 04:46 VIS not applicable for this client. as6 Intake: 04:02 IV: 100ml; Total: 100ml. ha1 Outcome: 01:08 Decision to Hospitalize by Provider. rt 04:46 Admitted to Med/surg accompanied by tech, via wheelchair, with oxygen, with chart. as6 04:46 Condition: stable 04:46 Instructed on the need for admit. 04:46 Patient left the ED. as6 Signatures: Dispatcher [employer] Billy Marion RN RN as6 Alyssa Bell RN RN ha1 Miah Roman MD MD rt Corrections: (The following items were deleted from the chart) 01:12 12/05 13:50 BP 124 / 53; Pulse 78bpm; Resp 21bpm; Spontaneous; Pulse Ox 100% 4 lpm ha1 Nasal Cannula; ha1
--- NOTE | 2022-06-01 01:46 | P.HP ---
Certification for Inpatient Patient admitted to: Inpatient With expected LOS: >2 Midnights Patient will require the following post-hospital care: None Practitioner: I am a practitioner with admitting privileges, knowledge of patient current condition, hospital course, and medical plan of care. Services: Services provided to patient in accordance with Admission requirements found in Title 42 Section 412.3 of the Code of Federal Regulations <Fletcher Porter - Last Filed: 06/01/22 01:43> Patient History Date of Service: 06/01/22 Reason for admission: COPD exacerbation, NSTEMI History of Present Illness: 71-year-old male with history of COPD on chronic steroids, chronic diastolic congestive heart failure, severe CAD, atrial fibrillation on chronic anticoagulation, CKD 3 presents to the emergency department for dyspnea, wheezing. He reports when he got up to go to the bathroom last night he had onset of shortness of breath similar to previous COPD exacerbations, he took his nebulizer treatments at home without improvement for that reason he called EMS. He was evaluated here in the emergency department his labs were significant for moderately elevated high-sensitivity troponin 167.2 elevated BNP 14,608 current 2.1 GFR 33 patient was treated with IV steroids, nebulizer treatments still having significant dyspnea, expiratory wheezing on exam ED read wishes to admit for further evaluation and management of COPD exacerbation, NSTEMI. Patient had recent heart catheterization January of this year which demonstrated severe CAD recommended medical management, last echocardiogram 01/28/2022 with low normal EF. - Past Medical/Surgical History Diabetic: No -: HTN -: COPD -: HTN -: CHFdiastolic -: CKD followed by Dr. Roy -: CAD -: A. fib on chronic anticoagulation -: heart stent -: Heart cath evere CAD Psychosocial/ Personal History: Patient lives at home with his . - Family History Father -: Heart disease Notes: Heart attack Mother -: Lung disease Notes: COPd - Social History Smoking Status: Former smoker Alcohol use: No CD- Drugs: No Caffeine use: Yes Place of Residence: Home <Fletcher Porter - Last Filed: 06/01/22 01:43> Date of Service: 06/01/22 <Ruslan Clements - Last Filed: 06/01/22 20:30> Allergies No Known Allergies Allergy (Verified 03/03/22 08:27) Home Medications: Albuterol Sulfate [Albuterol Sulfate Hfa] 1 puff IH DAILY 02/05/22 Aspirin [Aspirin EC] 81 mg PO DAILY 04/05/22 Clopidogrel Bisulfate [Plavix] 75 mg PO DAILY 04/05/22 Metoprolol Tartrate 25 mg PO BID 04/05/22 Vericiguat [Verquvo] 2.5 mg PO BEDTIME 04/05/22 Apixaban [Eliquis] 5 mg PO BID #60 tab 04/09/22 Furosemide [Lasix] 40 mg PO BID #60 tab 05/11/22 levoFLOXacin [Levaquin*] 500 mg PO DAILY #5 tab 05/11/22 Fluticasone/Salmeterol [Advair 250-50 Diskus] 1 each IH BID #1 kit 05/13/22 Ipratropium/Albuterol Sulfate [Iprat-Albut 0.5-3(2.5) mg/3 ml] 3 ml IH QID PRN #120 amp 05/13/22 Nebulizer 1 each QID #1 kit 05/13/22 predniSONE [Deltasone*] 10 mg PO BID #10 tab 05/13/22 Review of Systems 10-point ROS is otherwise unremarkable Respiratory: Shortness of Breath, SOB with Excertion, Wheezing <Fletcher Porter - Last Filed: 06/01/22 01:43> Physical Examination - Physical Exam General: Alert, In no apparent distress, Oriented x3 HEENT: Atraumatic, PERRLA, Mucous membr. moist/pink, EOMI, Sclerae nonicteric Neck: Supple, 2+ carotid pulse no bruit, No LAD, Without JVD or thyroid abnormality Respiratory: Expiratory wheezes Cardiovascular: Regular rate/rhythm, Normal S1 S2 Gastrointestinal: Normal bowel sounds, No tenderness Musculoskeletal: No tenderness Integumentary: No rashes Neurological: Normal gait, Normal speech, Normal strength at 5/5 x4 extr, Normal tone, Normal affect Lymphatics: No axilla or inguinal lymphadenopathy - Studies Laboratory Data (last 24 hrs) 05/31/22 22:50: Sodium 139, Potassium 4.0, BUN 33 H, Creatinine 2.10 H, Glucose 126 H, Total Bilirubin 0.6, AST 17, ALT 20, Alkaline Phosphatase 96 05/31/22 22:50: WBC 10.70, Hgb 12.9 L, Hct 38.7 L, Plt Count 184 <Fletcher Porter - Last Filed: 06/01/22 01:43> - Studies Laboratory Data (last 24 hrs) 05/31/22 22:50: Sodium 139, Potassium 4.0, BUN 33 H, Creatinine 2.10 H, Glucose 126 H, Total Bilirubin 0.6, AST 17, ALT 20, Alkaline Phosphatase 96 05/31/22 22:50: WBC 10.70, Hgb 12.9 L, Hct 38.7 L, Plt Count 184 <Ruslan Clements - Last Filed: 06/01/22 20:30> Assessment and Plan - Plan Assessment: Acute on chronic hypoxic respiratory failure secondary to COPD exacerbationon chronic steroids Acute on chronic diastolic congestive heart failure/NSTEMI Atrial fibrillation on chronic anticoagulation therapy CKD 3 Plan: Acute on chronic hypoxic respiratory failure secondary to COPD exacerbationon chronic steroids: Continue steroids, as needed nebulizer treatments. Pulm onology consult in place, continue ICS. Daily room air saturations. Acute on chronic diastolic congestive heart failure/NSTEMI: Trend troponins, monitor on telemetry. Heart catheterization 01/28/2022 with severe CAD recommendations for medical management. Last echocardiogram also in January with low normal EF. Continue on medications, cardiology consult in place. Atrial fibrillation on chronic anticoagulation therapy: Continue as above, continue Eliquis. CKD 3: Stable, patient sees Dr. Roy will consult if there is any worsening in renal function. DVT PPX: Continue Eliquis Code status: Full Discharge Plan: Home Plan to discharge in: 48 Hours - Advance Directives Does patient have a Living Will: Yes Does patient have a Durable POA for Healthcare: No - Code Status/Comfort Care Code Status Assessed: Yes (Full code) Critical Care: No Time Spent Managing Pts Care (In Minutes): 70 <Fletcher Porter - Last Filed: 06/01/22 01:43> - Plan Patient seen and examined on rounds this morning. Reports improvement with dyspnea, but still significant wheeze on exam, on 3L NC does not have home O2. Previously qualified, but insurance stopped covering. continue treatment for COPD exacerbation <Ruslan Clements - Last Filed: 06/01/22 20:30>
[2022-06-01] MEDS ORDERED: Levofloxacin 750mg IV 750 MG/150 ML BAG IV ONE (02:16)
[2022-06-01 02:39] LABS: SARS-COV-2 RT PCR NEGATIVE (NEGATIVE)
[2022-06-01] MEDS ORDERED: ONDANSETRON 4 MG/2 ML VIAL IV PRN (05:11)
[2022-06-01] MEDS ORDERED: ACETAMINOPHEN 500 MG TAB PO PRN (05:11)
[2022-06-01 05:25] LABS: Absolute Lymphocytes (CBC) 0.5 K/uL (0.7-4.9); Hematocrit 37.7 % (39.6-49.0); Lymphocytes % 4.1 % (15.3-44.8); MCV 89.2 fL (80-100); MPV 10.1 fL (7.6-11.3); RBC Red Blood Cell Count 4.23 M/uL (4.33-5.43)
[2022-06-01 05:43] LABS: Magnesium 2.5 mg/dL (1.8-2.4); Potassium 4.1 mmol/L (3.5-5.1)
[2022-06-01 05:50] LABS: Troponin High Sensitivity 149.9 pg/mL (<58.9)
[2022-06-01 05:59] VITALS: BMI 22.4
[2022-06-01 06:07] LABS: Blood Morphology Comment NOT SEEN (NOT SEEN); Platelet Estimate ADEQ
--- NOTE | 2022-06-01 08:35 | EKG ---
Test Date: 2022-05-31 Test Time: 22:26:04 Correctional Program Officer: JAY MEASUREMENT RESULTS: Intervals: Rate: 79 OK: 160 QRSD: 116 QT: 408 QTc: 467 [place]: P: 80 OK: 160 QRS: -19 T: 126 INTERPRETIVE STATEMENTS: Sinus rhythm with occasional premature ventricular complexes Septal infarct, age undetermined ST & T wave abnormality, consider lateral ischemia Abnormal ECG Compared to ECG 05/17/2022 06:33:35 Myocardial infarct finding now present ST (T wave) deviation now present T-wave abnormality no longer present Possible ischemia still present Electronically Signed On 06-01-22 08:34:31 RN RENAL by Irvin Turner
[2022-06-01] MEDS: DULERA 200/5 (MOMETASONE/FORMOTEROL) INHALER IH SCH ×2 (09:00→21:43)
[2022-06-01] MEDS ORDERED: FUROSEMIDE 20 MG/ 2ML VIAL IV SCH (09:00)
[2022-06-01] MEDS: ASPIRIN EC 81 MG TAB PO SCH (10:05)
[2022-06-01] MEDS: predniSONE 20 MG TAB PO SCH ×2 (10:05→21:44)
[2022-06-01] MEDS: APIXABAN 5 MG TABLET PO SCH ×2 (10:05→21:44)
[2022-06-01] MEDS: METOPROLOL TAR 25 MG TAB PO SCH ×2 (10:05→21:43)
[2022-06-01] MEDS: CLOPIDOGREL 75 MG TABLET PO SCH (10:05)
--- NOTE | 2022-06-01 12:33 | P.CNS ---
Date of Consult: 06/08/22 Reason for Consult: COPD exacerbation Chief Complaint: COPD exacerbation, NSTEMI History of Present Illness: Patient is 71 years of age he has had numerous admissions to the hospital again this happened suddenly it happens between 10 PM and early hours of the morning when he suddenly become short of the out of the hospital for a couple of weeks has been compliant with his therapy eyes any fever chills feels better patient does take Advair at home Allergies No Known Allergies Allergy (Verified 03/03/22 08:27) Home Medications: Albuterol Sulfate [Albuterol Sulfate Hfa] 1 puff IH DAILY 02/05/22 Aspirin [Aspirin EC] 81 mg PO DAILY 04/05/22 Clopidogrel Bisulfate [Plavix] 75 mg PO DAILY 04/05/22 Metoprolol Tartrate 25 mg PO BID 04/05/22 Vericiguat [Verquvo] 2.5 mg PO BEDTIME 04/05/22 Apixaban [Eliquis] 5 mg PO BID #60 tab 04/09/22 Furosemide [Lasix] 40 mg PO BID #60 tab 05/11/22 levoFLOXacin [Levaquin*] 500 mg PO DAILY #5 tab 05/11/22 Fluticasone/Salmeterol [Advair 250-50 Diskus] 1 each IH BID #1 kit 05/13/22 Ipratropium/Albuterol Sulfate [Iprat-Albut 0.5-3(2.5) mg/3 ml] 3 ml IH QID PRN #120 amp 05/13/22 Nebulizer 1 each MC QID #1 kit 05/13/22 predniSONE [Deltasone*] 10 mg PO BID #10 tab 05/13/22 - Past Medical/Surgical History Diabetic: No -: HTN -: COPD -: HTN -: CHFdiastolic -: CKD followed by Dr. Roy -: CAD -: A. fib on chronic anticoagulation -: heart stent -: Heart cath ever CAD Psychosocial/ Personal History: Patient lives at home with his . - Family History Father Medical History: Heart disease Notes: Heart attack Mother Medical History: Lung disease Notes: COPd - Social History Smoking Status: Unknown if ever smoked Alcohol use: Yes CD- Drugs: No Caffeine use: Yes Place of Residence: Home Review of Systems 10-point ROS is otherwise unremarkable General: Weakness Respiratory: Cough, Shortness of Breath Physical Examination Temp Pulse Resp BP Pulse Ox 97.9 F 75 18 140/74 100 06/01/22 08:00 06/01/22 10:06 06/01/22 08:00 06/01/22 10:06 06/01/22 08:00 General: Alert, In no apparent distress, Oriented x3 Respiratory: Clear to auscultation bilaterally, Diminished Cardiovascular: No edema, Regular rate/rhythm, Normal S1 S2 Laboratory Data (last 24 hrs) 05/31/22 22:50: Sodium 139, Potassium 4.0, BUN 33 H, Creatinine 2.10 H, Glucose 126 H, Total Bilirubin 0.6, AST 17, ALT 20, Alkaline Phosphatase 96 05/31/22 22:50: WBC 10.70, Hgb 12.9 L, Hct 38.7 L, Plt Count 184 - Problems (1) COPD exacerbation Current Visit: No Status: Acute Plan: Patient is 71 years of age admitted with an acute onset of his shortness of breath these are recurrent episodes and many times in the past with numerous hospital admission patient has had a cardiac cath done renal function is improving increase the dose of Lasix IV to 40 mg twice a day patient also had a cardiac cath done but possible that he has severe diastolic dysfunction could be acid reflux I will start him on a PPI this causing his vocal cord spasm/dysfunction patient is anticoagulated chest x-ray reviewed some inflammatory changes at the right lower zone patient has a pleural effusion small 1
[2022-06-01] MEDS: ALBUTEROL 2.5 MG/3 ML NEB SOL NEB PRN ×2 (13:30→22:39)
[2022-06-01] MEDS: IPRATROPIUM BROM 0.5MG/2.5ML NEB PRN ×2 (13:30→22:38)
[2022-06-01] MEDS: FUROSEMIDE 40 MG/4 ML VIAL IV SCH (16:49)
[2022-06-01] MEDS: PANTOPRAZOLE 40MG TABLET PO SCH (16:49)
--- NOTE | 2022-06-01 17:10 | CON ---
Date of Consultation: 06/01/2022 Reason For Consultation: COPD exacerbation, congestive heart failure, elevated troponin. History Of Present Illness: Mr. Chow is known to us from previous office visits and admission. He h as paroxysmal atrial fibrillation. He has coronary artery disease, COPD, chronic systolic congestive heart failure. He came in with shortness of breath, PND, orthopnea, pedal edema. Denied any palpit ation or syncope. Denied any fever or chills or cough. Past Medical History: As stated above. Allergies: NONE. Review of Systems: Negative. Social History: Negative. Family History: Negative. Medications: At home include Eliquis, inhalers, metoprolol, aspirin, Plavix, Lasix, Verquvo, and Del tasone. Physical Examination: Vital Signs: Stable. He was afebrile. He was in no acute distress. HEENT: Negative. Neck: Supple with no bruit. Chest: Revealed expiratory wheezing. Cardiac: Revealed a regular rhythm and rate. No murmurs, gallops, or rubs. Abdomen: Benign. Extremities: Revealed trace edema. Diagnostic Data: Creatinine is 1.97. Troponin is 149. BNP is 14,000. Echocardiogram in August 2021 showed an ejection fraction of 50%. Heart catheterization in August 2021 showed a patent LAD stent w ith 100% RCA occlusion with collaterals from the circumflex. He was treated medically. Impression And Plan: 1.Chronic obstructive pulmonary disease exacerbation. 2.Chronic systolic congestive heart failure. 3.Elevated troponin and BNP secondary to congestive heart failure and renal insufficiency. 4.Significant renal insufficiency. 5.Coronary artery disease, status post LAD stent with 100% RCA. 6.Paroxysmal atrial fibrillation, on metoprolol and Eliquis. 7.Chronic obstructive pulmonary disease. 8.Steroid therapy. This is certainly not an acute coronary syndrome. No plan to do another heart c atheterization on him. I would watch his kidneys, gently diurese, treat his chronic obstructive pulm onary disease, continue his present regimen. He is on appropriate therapy for congestive heart failu re including metoprolol Lasix, and Verquvo. I will discuss the case further with Dr. Clements. SHELTON/ARTURO Voice ID: [id number] Report ID: [id number]
--- NOTE | 2022-06-01 17:56 | RAD REPORT ---
EXAM DESCRIPTION: Chest Single View 06/01/2022 12:21 AM RESERVATIONS AND TICKETING AGENT CLINICAL HISTORY: 71 years, Male, COPD COMPARISON: 05/11/2022 FINDINGS: Single view of the chest was obtained portable. Prior films were compared. External EKG le ads within the [id number] limits diagnosis. There is incomplete assessment lung bases/lateral CP a ngles. There is hyperinflation. The heart is in the upper normal size. The heart is not enlarged. The thoracic aorta is unremarkable. The pulmonary vasculature is normal distribution. Findings suggest a small right pleural effusion with compressive atelectatic changes/or infiltrate right lung base. The rest of the soft tissue and bony structures demonstrate to be unremarkable. IMPRESSION: Hyperinflation/COPD. Small right pleural effusion with compressive atelectatic changes and/or infiltrate right lower lung zone. Electronically signed by: Medardo Zhang MD 06/01/2022 12:23 AM RESERVATIONS AND TICKETING AGENT Due to temporary technical issues with the PACS/Fluency reporting system, reports are being signed by the in house radiologists without review as a courtesy to insure prompt reporting. The interpreting radiologist is fully responsible for the content of the report.
[2022-06-02 06:01] LABS: Absolute Lymphocytes (CBC) 0.7 K/uL (0.7-4.9); Hematocrit 33.4 % (39.6-49.0); Lymphocytes % 4.3 % (15.3-44.8); MCV 87.7 fL (80-100); RBC Red Blood Cell Count 3.81 M/uL (4.33-5.43)
[2022-06-02 06:18] LABS: Magnesium 2.4 mg/dL (1.8-2.4); Potassium 4.8 mmol/L (3.5-5.1)
[2022-06-02] MEDS: PANTOPRAZOLE 40MG TABLET PO SCH ×2 (08:28→17:05)
[2022-06-02] MEDS: METOPROLOL TAR 25 MG TAB PO SCH ×2 (08:28→21:19)
[2022-06-02] MEDS: CLOPIDOGREL 75 MG TABLET PO SCH (08:28)
[2022-06-02] MEDS: DULERA 200/5 (MOMETASONE/FORMOTEROL) INHALER IH SCH ×2 (08:29→21:20)
[2022-06-02] MEDS: FUROSEMIDE 40 MG/4 ML VIAL IV SCH ×2 (08:29→17:05)
[2022-06-02] MEDS: APIXABAN 5 MG TABLET PO SCH ×2 (08:29→21:19)
[2022-06-02] MEDS: predniSONE 20 MG TAB PO SCH ×2 (08:29→21:19)
[2022-06-02] MEDS: ASPIRIN EC 81 MG TAB PO SCH (08:29)
[2022-06-02] MEDS: ALBUTEROL 2.5 MG/3 ML NEB SOL NEB PRN ×2 (08:30→14:08)
[2022-06-02] MEDS: IPRATROPIUM BROM 0.5MG/2.5ML NEB PRN ×2 (08:30→14:08)
--- NOTE | 2022-06-02 12:24 | P.PN ---
Subjective Date of Service: 06/02/22 Chief Complaint: COPD exacerbation, NSTEMI Subjective: Improving (Patient is doing much better no episodes overnight) Review of Systems 10-point ROS is otherwise unremarkable Physical Examination - Vital Signs Temperature: 98.2 F Blood Pressure: 127/67 Pulse: 75 Respirations: 16 Pulse Ox (%): 97 - Physical Exam General: Alert, In no apparent distress, Oriented x3 Respiratory: Clear to auscultation bilaterally, Diminished Cardiovascular: No edema, Regular rate/rhythm Assessment And Plan - Current Problems (Diagnosis) (1) COPD exacerbation Current Visit: No Status: Acute Plan: Patient admitted with acute on chronic dyspnea he is currently doing better stable vocal cord spasm patient is on proton pump inhibitor renal function is slightly worse White count is mildly elevated I suspect is from the steroid no change in present treatment not qualify for home O2 vital signs are stable is 96% on room air possible discharge patient is on Vericiguat
--- NOTE | 2022-06-02 14:16 | P.CNS ---
Date of Consult: 06/02/22 Reason for Consult: Renal insufficiency Requesting Physician: Ruslan Clements Chief Complaint: COPD exacerbation, NSTEMI History of Present Illness: Patient is a 71-year-old male with history of chronic tobacco use, moderate COPD with freq exacerbations, chronic CHF, hypertension, CAD and renal insufficiency with several MEHREEN on CKD episodes this year who has been in the hospital almost monthly over the past several months. Pt reports acute onset of dyspnea where he couldn't breath, he denies associated CP. He reports O2 could not be arranged after the last hospital stay due to insurance, he reports feeling better after O2 was administered. He reports weights had been stable, he denies peripheral edema. He reports compliance with Lasix diuretics and had been taking 20 mg BID he reports, which is a dose lower than he has taken previously. Allergies No Known Allergies Allergy (Verified 03/03/22 08:27) Home Medications: Albuterol Sulfate [Albuterol Sulfate Hfa] 1 puff IH DAILY 02/05/22 Aspirin [Aspirin EC] 81 mg PO DAILY 04/05/22 Clopidogrel Bisulfate [Plavix] 75 mg PO DAILY 04/05/22 Metoprolol Tartrate 25 mg PO BID 04/05/22 Vericiguat [Verquvo] 2.5 mg PO BEDTIME 04/05/22 Apixaban [Eliquis] 5 mg PO BID #60 tab 04/09/22 Furosemide [Lasix] 40 mg PO BID #60 tab 05/11/22 levoFLOXacin [Levaquin*] 500 mg PO DAILY #5 tab 05/11/22 Fluticasone/Salmeterol [Advair 250-50 Diskus] 1 each IH BID #1 kit 05/13/22 Ipratropium/Albuterol Sulfate [Iprat-Albut 0.5-3(2.5) mg/3 ml] 3 ml IH QID PRN #120 amp 05/13/22 Nebulizer 1 each MC QID #1 kit 05/13/22 predniSONE [Deltasone*] 10 mg PO BID #10 tab 05/13/22 - Past Medical/Surgical History Diabetic: No -: HTN -: COPD -: HTN -: CHFdiastolic -: CKD followed by Dr. Roy -: CAD -: A. fib on chronic anticoagulation -: heart stent -: Heart cath evere CAD Psychosocial/ Personal History: Patient lives at home with his . - Family History Father Medical History: Heart disease Notes: Heart attack Mother Medical History: Lung disease Notes: COPd - Social History Smoking Status: Unknown if ever smoked Alcohol use: Yes CD- Drugs: No Caffeine use: Yes Place of Residence: Home Review of Systems General: As per HPI Eyes: Unremarkable ENT: Unremarkable Respiratory: Cough, Shortness of Breath, As per HPI Cardiovascular: As per HPI Gastrointestinal: Unremarkable Genitourinary: Unremarkable Musculoskeletal: Unremarkable Integumentary: Unremarkable Neurological: Unremarkable Lymphatics: Unremarkable Physical Examination Temp Pulse Resp BP Pulse Ox 98.2 F 75 16 127/67 97 06/02/22 12:24 06/02/22 12:24 06/02/22 12:24 06/02/22 12:24 06/02/22 12:24 General: Alert, In no apparent distress, Oriented x3 HEENT: Atraumatic, Normocephalic, PERRLA, EOMI Neck: Supple Respiratory: Other (Poor air entry, non tachypnec) Cardiovascular: No edema, Regular rate/rhythm Gastrointestinal: Soft and benign, Non-distended, No tenderness Musculoskeletal: No swelling, No contractures, No erythema Integumentary: No rashes, Other (xerosis) Neurological: Normal speech, Normal strength at 5/5 x4 extr, Normal tone, Normal affect Conclusions/Impression: 1. Recurrent MEHREEN episodes 2. Underlying CKD, Stage IIIb/IV 3. Dyspnea 4. Chronic CHF, NOS 5. COPD exacerbation, underlying severe COPD. Chronic tobacco use -Renal function has not fully recovered to levels seen earlier this summer post prior MEHREEN. Cr levels freq fluctuate, has trended higher, monitor for now Azotemia exacerbated with steroids, monitor. Avoid any iodine contrast on imaging. -Diuretic dose on admission increased from home dose, BNP levels chronically elevated and harder to interpret with renal failure. CT did not describe ground glass opacities or large pleural effusions. -Pt with (chronic) troponin leak, f/u Cardiology reccs -Cont to hold ACEi/MICHELLE inhibitors at this time, low dose Entresto could be considered if renal function recovers and remains stable as an OP and if Cardiology feels pt would benefit from it -Adjust Abx/meds for reduced CrCl -Avoid relative hypotension.
--- NOTE | 2022-06-02 20:59 | P.PN ---
Date of Service: 06/02/22 Subjective: feeling better, breathing more comfortably, feels close to his "normal self" no new/worsening symptoms still with some dyspnea on exertion ROS: A complete review of systems was performed and is negative except as mentioned above Physical Exam: Gen: NAD, AOx3 HEENT: normal conjunctiva, sclera anicteric CV: regular rate & rhythm, no edema Pulm: non-labored respirations on room air, diminished at bases bilaterally, mild wheeze Abd: soft, non-tender, non-distended Neuro: normal speech, normal affect, moves all extremities vitals reviewed Problem List Acute on chronic hypoxic respiratory failure secondary to COPD exacerbationon chronic steroids Acute on chronic diastolic congestive heart failure/NSTEMI Atrial fibrillation on chronic anticoagulation therapy CKD 3 COPD acute on chronic continue steroids, nebs improving oxygen weaned to room air this morning check ambulatory pulse ox pt would likely benefit from home O2 / prevent some admissions troponin leak CHF suspect acute on chronic, not significantly overloaded, pulm increased lasix to 40mg IV BID takes 20mg PO BID troponin trended flat, cardiology consulted, suspect secondary to COPD, no further inpatient evaluation MEHREEN on CKD3 improved, but now Cr trending up possibly from higher lasix dose nephrology consulted monitor UOP VTE: home eliquis Code: full Dispo: home, ~24hrs Time Spent Managing Pts Care (In Minutes): 35
[2022-06-03 03:54] LABS: Hematocrit 33.7 % (39.6-49.0); MCV 87.5 fL (80-100); MPV 9.3 fL (7.6-11.3); RBC Red Blood Cell Count 3.86 M/uL (4.33-5.43)
[2022-06-03 04:04] LABS: Magnesium 2.5 mg/dL (1.8-2.4); Potassium 4.9 mmol/L (3.5-5.1)
[2022-06-03] MEDS: PANTOPRAZOLE 40MG TABLET PO SCH ×2 (08:22→16:59)
[2022-06-03] MEDS: APIXABAN 5 MG TABLET PO SCH ×2 (08:22→22:30)
[2022-06-03] MEDS: METOPROLOL TAR 25 MG TAB PO SCH ×2 (08:22→22:30)
[2022-06-03] MEDS: ASPIRIN EC 81 MG TAB PO SCH (08:22)
[2022-06-03] MEDS: CLOPIDOGREL 75 MG TABLET PO SCH (08:22)
[2022-06-03] MEDS: predniSONE 20 MG TAB PO SCH ×2 (08:22→22:30)
[2022-06-03] MEDS: DULERA 200/5 (MOMETASONE/FORMOTEROL) INHALER IH SCH ×2 (08:23→22:31)
[2022-06-03] MEDS: ALBUTEROL 2.5 MG/3 ML NEB SOL NEB PRN (20:55)
[2022-06-03] MEDS: IPRATROPIUM BROM 0.5MG/2.5ML NEB PRN (20:55)
--- NOTE | 2022-06-03 22:56 | P.PN ---
Date of Service: 06/03/22 Subjective: improved, ambulated last night without hypoxia no new / worsening symptoms ROS: A complete review of systems was performed and is negative except as mentioned above Physical Exam: Gen: NAD, AOx3 HEENT: normal conjunctiva, sclera anicteric CV: regular rate & rhythm, no edema Pulm: non-labored respirations on room air, diminished at bases bilaterally, mild wheeze Abd: soft, non-tender, non-distended Neuro: normal speech, normal affect, moves all extremities vitals reviewed Problem List Acute on chronic hypoxic respiratory failure secondary to COPD exacerbationon chronic steroids Acute on chronic diastolic congestive heart failure/NSTEMI Atrial fibrillation on chronic anticoagulation therapy MEHREEN on CKD 3 COPD acute on chronic continue steroids, nebs improving weaned to room air ambulatory pulse ox normal pt would likely benefit from home O2 / prevent some admissions troponin leak CHF suspect acute on chronic, not significantly overloaded, pulm increased lasix to 40mg IV BID takes 20mg PO BID troponin trended flat, cardiology consulted, suspect secondary to COPD, no further inpatient evaluation dc lasix 06/03 MEHREEN on CKD3 improved, but now Cr trending up possibly from higher lasix dose lasix dc'd 06/03 nephrology consulted monitor UOP VTE: home eliquis Code: full Dispo: home, ~24hrs Time Spent Managing Pts Care (In Minutes): 35
--- NOTE | 2022-06-04 00:49 | P.PN ---
Date of Service: 06/03/22 Vital Signs Temp Pulse Resp BP Pulse Ox 97 F 68 18 145/82 H 98 06/03/22 20:00 06/03/22 22:30 06/03/22 20:00 06/03/22 22:30 06/03/22 20:00 Medications Acetaminophen (Acetaminophen 500 Mg Tab) 500 mg PO Q4HP PRN PRN Reason: Pain scale 2-4 (Mild) Albuterol Sulfate (Albuterol 2.5 Mg/3 Ml Neb Ledy) 2.5 mg NEB [id number] PRN PRN Reason: WHEEZING Last Admin: 06/02/22 14:08 Dose: 2.5 mg Apixaban (Apixaban 5 Mg Tablet) 5 mg PO BID [facility] Last Admin: 06/03/22 22:30 Dose: 5 mg Aspirin (Aspirin Ec 81 Mg Tab) 81 mg PO DAILY [facility] Last Admin: 06/03/22 08:22 Dose: 81 mg Clopidogrel Bisulfate (Clopidogrel 75 Mg Tablet) 75 mg PO DAILY [facility] Last Admin: 06/03/22 08:22 Dose: 75 mg Ipratropium [place] (Ipratropium Brom 0.5mg/2.5ml) 0.5 mg NEB [id number] PRN PRN Reason: WHEEZING Last Admin: 06/02/22 14:08 Dose: 0.5 mg Metoprolol Tartrate (Metoprolol Tar 25 Mg Tab) 25 mg PO BID [facility] Last Admin: 06/03/22 22:30 Dose: 25 mg Ondansetron HCl (Ondansetron 4 Mg/2 Ml Vial) 4 mg IV Q6HP PRN PRN Reason: NAUSEA / VOMITING Pantoprazole Sodium ([facility]) [facility] Last Admin: 06/03/22 16:59 Dose: 40 mg Prednisone (Prednisone 20 Mg Tab) 20 mg PO BID [facility] Last Admin: 06/03/22 22:30 Dose: 20 mg Sodium Chloride (Flush Normal Saline 10 Ml) 10 ml IV BID [facility] Last Admin: 06/03/22 22:31 Dose: 10 ml Microbiology Results 06/01/22 00:50 Blood - Blood Aerobic Blood Culture - Preliminary No growth in 24 hours. 06/01/22 00:50 Blood - Blood Anaerobic Blood Culture - Preliminary No growth in 24 hours. Assessment/ Plan: Nephrology Improving dyspnea No chest pain Feeling better No acute events overnight Vitals, medications, blood work and imaging reviewed in the chart. NAD. NCAT. MMM. Neck supple. Scattered wheeze. RRR. Abd ND. No C/C/E. No rash. AAO. Normal speech. Stage I MEHREEN may be due to excessive diuresis CKD IIIb with proteinuria -No NSAIDs -Agree with holding the diuretic Hyponatremia -Maintain nutrition -Caution with excess free water HTN with CKD/ CHF -Continue Metoprolol Diastolic CHF, A/C -Low sodium diet -Hold diuretic due to improved volume status Anemia in chronic illness -Monitor H&H Cast reviewed with Dr. Clements
[2022-06-04 04:06] LABS: Hematocrit 34.4 % (39.6-49.0); MCV 87.5 fL (80-100); RBC Red Blood Cell Count 3.94 M/uL (4.33-5.43)
[2022-06-04 04:22] LABS: Potassium 4.6 mmol/L (3.5-5.1)
[2022-06-04] MEDS: predniSONE 20 MG TAB PO SCH (08:20)
[2022-06-04] MEDS: METOPROLOL TAR 25 MG TAB PO SCH (08:20)
[2022-06-04] MEDS: PANTOPRAZOLE 40MG TABLET PO SCH ×2 (08:20→15:58)
[2022-06-04] MEDS: ASPIRIN EC 81 MG TAB PO SCH (08:20)
[2022-06-04] MEDS: APIXABAN 5 MG TABLET PO SCH (08:21)
[2022-06-04] MEDS: CLOPIDOGREL 75 MG TABLET PO SCH (08:21)
[2022-06-04] MEDS: DULERA 200/5 (MOMETASONE/FORMOTEROL) INHALER IH SCH (08:21)
--- NOTE | 2022-06-04 11:23 | P.PN ---
Nephrology note: (S) Pt denies any active resp distress, but does have some cough, renal function tests and diuretic regimen discussed General: Alert, In no apparent distress, Oriented x3 HEENT: Atraumatic, Normocephalic, PERRLA, EOMI Neck: Supple Respiratory: Other (Poor air entry, non tachypnec) Cardiovascular: No edema, Regular rate/rhythm Gastrointestinal: Soft and benign, Non-distended, No tenderness Musculoskeletal: No swelling, No contractures, No erythema Integumentary: No rashes, Other (xerosis) Neurological: Normal speech, Normal strength at 5/5 x4 extr, Normal tone, Normal affect Conclusions/Impression: 1. Recurrent MEHREEN episodes 2. Underlying CKD, Stage IIIb/IV 3. Dyspnea multifactorial 4. Chronic CHF, NOS 5. COPD exacerbation, underlying severe COPD. Chronic tobacco use -Renal function has not fully recovered to levels seen earlier this summer post prior MEHREEN. Cr levels freq fluctuate, did trended higher briefly, monitor for now Azotemia exacerbated with steroids, monitor. Avoid any iodine contrast on imaging. -Diuretic dose on admission increased from home dose, BNP levels chronically elevated and harder to interpret with renal failure. CT did not describe ground glass opacities or large pleural effusions. Will switch back to maintenance PO diuretics. -Pt with (chronic) troponin leak, f/u Cardiology reccs -Cont to hold ACEi/MICHELLE inhibitors at this time, low dose Entresto could be considered if renal function recovers and remains stable as an OP and if Cardiology feels pt would benefit from it -Adjust Abx/meds for reduced CrCl -Avoid relative hypotension.
[2022-06-04 11:51] VITALS: O2SAT 95
[2022-06-04] MEDS ORDERED: FUROSEMIDE 40 MG TABLET PO SCH (12:00)
[2022-06-04] MEDS: ALBUTEROL 2.5 MG/3 ML NEB SOL NEB PRN (14:40)
[2022-06-04] MEDS: IPRATROPIUM BROM 0.5MG/2.5ML NEB PRN (14:40)
[2022-06-04 16:22] VITALS: BP 142/81; TEMP 97.6
--- NOTE | 2022-06-13 12:51 | P.DS ---
Admission Date: 06/01/22 Discharge Date: 06/04/22 Disposition: DC HOME/HOME HEALTH CARE Discharge Condition: GOOD Reason for Admission: COPD exacerbation, NSTEMI Consultations: Nephrology - Dr. Roy / Adeb[facility]o Pulm - Dr. Carter Brief History of Present Illness: 71yo M, PMH: COPD on chronic steroids, chronic diastolic CHF, severe CAD, atrial fibrillation on chronic anticoagulation, CKD 3 Presented to ED for dyspnea, wheezing. He reports when he got up to go to the bathroom last night he had onset of shortness of breath similar to previous COPD exacerbations, he took his nebulizer treatments at home without improvement for that reason he called EMS. He was evaluated here in the emergency department his labs were significant for moderately elevated high-sensitivity troponin 167.2 elevated BNP 14,608 current 2.1 GFR 33 patient was treated with IV steroids, nebulizer treatments still having significant dyspnea, expiratory wheezing on exam ED read wishes to admit for further evaluation and management of COPD exacerbation, NSTEMI. Patient had recent heart catheterization January of this year which demonstrated severe CAD recommended medical management, last echocardiogram 01/28/2022 with low normal EF. Hospital Course: Problem List Acute on chronic hypoxic respiratory failure secondary to COPD exacerbationon chronic steroids Acute on chronic diastolic congestive heart failure/NSTEMI Atrial fibrillation on chronic anticoagulation therapy MEHREEN on CKD 3 Patient presented with shortness of breath and hypoxia. Improved with treatment for COPD exacerbation - steroids, nebulizers, and oxygen supplementation. Pulmonology was consulted. Patient had quick improvement, however developed acute kidney injury, likely secondary to over-diuresis with Lasix. Nephrology was consulted. Lasix were discontinued and he had improvement of renal function back to near-baseline. Nephrology recommended continue with home maintenance lasix dosing. Prescribed 5 days of Prednisone 20mg twice daily, then resume prior steroid prescription. Follow up with Dr. Carter in ~1 week Vital Signs/Physical Exam: Temp Pulse Resp BP Pulse Ox 97.6 F 68 16 142/81 H 95 06/04/22 16:00 06/04/22 16:00 06/04/22 16:00 06/04/22 16:00 06/04/22 16:00 Physical Exam: Gen: NAD, AOx3 HEENT: normal conjunctiva, sclera anicteric CV: regular rate & rhythm, no edema Pulm: non-labored respirations on room air, diminished at bases bilaterally, mild wheeze Abd: soft, non-tender, non-distended Neuro: normal speech, normal affect, moves all extremities Laboratory Data at Discharge: WBC 10.60 K/uL (4.3-10.9) 06/04/22 03:44 Hgb 11.5 g/dL (13.6-17.9) L 06/04/22 03:44 Hct 34.4 % (39.6-49.0) L 06/04/22 03:44 Plt Count 188 K/uL (152-406) 06/04/22 03:44 Sodium 133 mmol/L (136-145) L 06/04/22 03:44 Potassium 4.6 mmol/L (3.5-5.1) 06/04/22 03:44 BUN 76 mg/dL (7-18) H 06/04/22 03:44 Creatinine 2.60 mg/dL (0.70-1.30) H 06/04/22 03:44 Glucose 146 mg/dL (74-106) H 06/04/22 03:44 Magnesium 2.5 mg/dL (1.8-2.4) H 06/03/22 03:25 Total Bilirubin 0.6 mg/dL (0.2-1.0) 05/31/22 22:50 AST 17 U/L (15-37) 05/31/22 22:50 ALT 20 U/L (12-78) 05/31/22 22:50 Alkaline Phosphatase 96 U/L (45-117) 05/31/22 22:50 Home Medications: Albuterol Sulfate [Albuterol Sulfate Hfa] 1 puff IH DAILY 02/05/22 Aspirin [Aspirin EC] 81 mg PO DAILY 04/05/22 Clopidogrel Bisulfate [Plavix] 75 mg PO DAILY 04/05/22 Metoprolol Tartrate 25 mg PO BID 04/05/22 Vericiguat [Verquvo] 2.5 mg PO BEDTIME 04/05/22 Apixaban [Eliquis] 5 mg PO BID #60 tab 04/09/22 Furosemide [Lasix] 40 mg PO BID #60 tab 05/11/22 Fluticasone/Salmeterol [Advair 250-50 Diskus] 1 each IH BID #1 kit 05/13/22 Ipratropium/Albuterol Sulfate [Iprat-Albut 0.5-3(2.5) mg/3 ml] 3 ml QID PRN #120 amp 05/13/22 Nebulizer 1 each QID #1 kit 05/13/22 predniSONE [Deltasone*] 10 mg PO BID #10 tab 05/13/22 predniSONE [Prednisone*] 20 mg PO BID 5 Days #10 tab 06/04/22 New Medications: predniSONE [Prednisone*] 20 mg PO BID 5 Days #10 tab Physician Discharge Instructions: Patient presented with shortness of breath and hypoxia. Improved with treatment for COPD exacerbation - steroids, nebulizers, and oxygen supplementation. Pulmonology was consulted. Patient had quick improvement, however developed acute kidney injury, likely secondary to over-diuresis with Lasix. Nephrology was consulted. Lasix were discontinued and he had improvement of renal function back to near-baseline. Nephrology recommended continue with home maintenance lasix dosing. Prescribed 5 days of Prednisone 20mg twice daily, then resume prior steroid prescription. Follow up with Dr. Carter in ~1 week Followup: Evangelist Carter MD [ACTIVE - CAN ADMIT] - 1 Week (Call for appointment.) NONE,NONE [Primary Care Provider] - 1-2 Weeks (Call for appointment.) Time spent managing pt's care (in minutes): 45
== END 2022-06-04 17:30 | disposition home health service (06) | DRG 190 ==
LOC: ER 22:17 → ERHOLD 06-01 01:31 → 2ND 06-01 03:39
PROVIDERS: ADMIT Hospitalist; ATTEND Hospitalist
DX: J44.1 Chronic obstructive pulmonary disease with (acute) exacerbation (principal); I21.4 Non-ST elevation (NSTEMI) myocardial infarction; J96.21 Acute and chronic respiratory failure with hypoxia; I50.33 Acute on chronic diastolic (congestive) heart failure; I13.0 Hypertensive heart and chronic kidney disease with heart failure and stage 1 through stage 4 chronic kidney disease, or unspecified chronic kidney disease; N17.9 Acute kidney failure, unspecified; E87.1 Hypo-osmolality and hyponatremia; N18.30 Chronic kidney disease, stage 3 unspecified; D63.8 Anemia in other chronic diseases classified elsewhere; I48.0 Paroxysmal atrial fibrillation; I25.10 Atherosclerotic heart disease of native coronary artery without angina pectoris; I25.2 Old myocardial infarction; Z95.5 Presence of coronary angioplasty implant and graft; Z79.01 Long term (current) use of anticoagulants; Z79.82 Long term (current) use of aspirin; Z79.02 Long term (current) use of antithrombotics/antiplatelets; Z79.52 Long term (current) use of systemic steroids; Z91.14 Patient's other noncompliance with medication regimen; Z28.310 Unvaccinated for COVID-19; Z79.899 Other long term (current) drug therapy; Z87.891 Personal history of nicotine dependence; Z20.822 Contact with and (suspected) exposure to COVID-19
CPT/HCPCS: 0240U; 36415; 71045; 80048; 80053; 83605; 83735; 83880; 84484; 85025; 85027; 87040; 93005; 94640; 96365; 96366; 96375; 97161; 99285; J1940; J2930; J3535; J7512; J7613; J7644

== ENCOUNTER 2022-06-14 13:32 | Inpatient (IN) | payer MEDICARE ==
--- OUTSIDE RECORDS SUMMARY | 2022-06-14 13:47 | XMS REPORT | Continuity of Care Document ---
:1950 Author Organization [facility] t Address 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: [place] congestive congestive 00 Me dical heart heart Branch failure failure Hyperkalem Hyperkalem Disease Active U nivers ia ia 8-21 ity of 00:00: [place] 00 Medical Branch 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 00:[place] Tachycardi Tachycardi Disease Active U nivers a a 8-21 ity of 00:00: [place] 00 Medical Branch Hypertensi Hypertensi Disease Active [facility]: [facility] south 00 Center Acute on Acute on [...] Disease Active [facility] respirator respirator 5-15 [facility] y failure y failure 00:00: Medi south with with 00 Center hypercapni hypercapni a a Athscl Athscl Problem Active [facility] 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 [...] Active Univers ALLERGIE Class ity of S [facility] NO KNOWN Allergy Active [facility] ALLERGIE S Social History Social Habit Start Date Stop Date Quantity Comments Source History [facility] Food 2022-02-22 2022-02-22 1 Univers ity of Worry 00:00:00 00:00:00 [facility] Branch History [facility] Food 2022-02-22 2022-02-22 1 Univers ity of Scarcity 00:00:00 00:00:00 [facility] Branch History [facility] 2022-02-22 2022-02-22 2 University o f Transport Med 00:00:00 00:00:00 [facility] Branch History [facility] 2022-02-22 2022-02-22 2 University o f Transport Non-Med 00:00:00 00:00:00 [facility] Exposure to 2022-02-04 2022-02-14 Not sure University of SARS-CoV-2 (event) 00:00:00 14:51:00 [facility] Cigarettes smoked 2022-02-14 2022-02-14 Univers ity of current (pack per 00:00:00 00:00:00 [facility] ) - Reported Branch Cigarette 2022-02-14 2022-02-14 University of pack-years 00:00:00 00:00:00 [facility] Tobacco use and 2021-11-10 2021-11-[address] [facility] Romero kes exposure 00:00:00 00:00:00 [facility] Alcohol intake 2021-11-10 2021-11-10 Ex-drinker [facility] es 00:00:00 00:00:00 (finding) [facility] History of tobacco 2021-10-25 Passive smoker Un iversity of use 00:00:00 [facility] Sex Ass[birth year] At [birth year] ALEXEI Vilchis 00:00:00 00:00:00 [facility] Center Smoking Status Start Date Stop Date Source Smokes tobacco daily [facility] (finding) Ex-smoker 2022-02-14 00:00:00 2022-02-14 00:00:00 Universi ty [facility] Medications Ordered Filled Start Stop Current Ordering Indication Dosage Frequency Signature Comments Components Source Medication Medication Date Date Medication? Clinician (SIG) Name Name azithromyci Yes [id number] 500mg Take 1 Univers n 500 mg 8-27 tablet by ity of tablet 00:00: mouth in [place] 00 the Medical morning. Branch furosemide Yes [id number] 40mg Take 1 Univers 40 mg 8-27 tablet by ity of tablet 00:00: mouth in [place] the Medical morning. Branch azithromyci 2021-0 Yes [id number] 500mg Take 1 Univers n 500 mg 8-27 tablet by ity of tablet 00:00: mouth in [place] the Medical morning. Branch furosemide 2021-0 Yes [id number] 40mg Take 1 Univers 40 mg 8-27 tablet by ity of tablet 00:00: mouth in [place] the Medical morning. Branch azithromyci 2021-0 Yes [id number] 500mg Take 1 Univers n 500 mg 8-27 tablet by ity of tablet 00:00: mouth in [place] the Medical morning. Branch furosemide 2021-0 Yes [id number] 40mg Take 1 Univers 40 mg 8-27 tablet by ity of tablet 00:00: mouth in [place] the Medical morning. Branch azithromyci 2021-0 Yes [id number] 500mg Take 1 Univers n 500 mg 8-27 tablet by ity of tablet 00:00: mouth in [place] 00 the Medical morning. Branch furosemide 2021-0 Yes [id number] 40mg Take 1 Univers 40 mg 8-27 tablet by ity of tablet 00:00: mouth in [place] 00 the Medical morning. Branch azithromyci 2021-0 Yes [id number] 500mg Take 1 Univers n 500 mg 8-27 tablet by ity of tablet 00:00: mouth in [place] 00 the Medical morning. Branch furosemide 2021-0 Yes [id number] 40mg Take 1 Univers 40 mg 8-27 tablet by ity of tablet 00:00: mouth in [place] 00 the Medical morning. Branch azithromyci 2021-0 Yes [id number] 500mg Take 1 Univers n 500 mg 8-27 tablet by ity of tablet 00:00: mouth in [place] 00 the Medical morning. Branch furosemide 2021-0 Yes [id number] 40mg Take 1 Univers 40 mg 8-27 tablet by ity of tablet 00:00: mouth in [place] 00 the Medical morning. Branch azithromyci 0 Yes [id number] 500mg Take 1 Univers n 500 mg 8-27 tablet by ity of tablet 00:00: mouth in [place] 00 the Medical morning. Branch furosemide 2021-0 Yes [id number] 40mg Take 1 Univers 40 mg 8-27 tablet by ity of tablet 00:00: mouth in [place] 00 the Medical morning. Branch aspirin 81 2021- No [id number] 81mg Take 1 Univers mg chewable 8-27 03-23 tablet by it y of tablet 00:00: 04:59 mouth in [place] 00 :00 the Medical morning Branch for 30 days. clopidogreL 2021- No [id number] 75mg Take 1 Univers 75 mg 8-27 - tablet by ity of tablet 00:00: 04:59 mouth in [place] 00 :00 the Medical morning Branch for 30 days. Fluticasone 2021-0 2021- No [id number] 1{puff} Inhale 1 Univers -Salmeterol 8-23 03- Puff every i ty of 100-50 00:00: 04:59 12 [place] mcg/dose 00 :00 (twelve) Medical inhalation hours for Bran ch disk 30 days. rosuvastati 2021-2021- No [id number] 20mg Take 1 Univers n 20 mg 8-03-23 tablet by ity of tablet 00:00: 04:59 mouth at [place] 00 :00 bedtime Medical for 30 Branch days. aspirin 81 2021-0 2- No [id number] 81mg Take 1 Univers mg chewable 8-27 - tablet by it y of tablet 00:00: 04:59 mouth in [place] 00 :00 the Medical morning Branch for 30 days. clopidogreL 2021- No [id number] 75mg Take 1 Univers 75 mg 8-23 03- tablet by ity of tablet 00:00: 04:59 mouth in [place] 00 :00 the Medical morning Branch for 30 days. Fluticasone 2021- No [id number] 1{puff} Inhale 1 Univers -Salmeterol 8-23 03- Puff every i ty of 100-50 00:00: 04:59 12 [place] mcg/dose 00 :00 (twelve) Medical inhalation hours for Bran ch disk 30 days. rosuvastati 2021- No [id number] 20mg Take 1 Univers n 20 mg -03-23 tablet by ity of tablet 00:00: 04:59 mouth at [place] 00 :00 bedtime Medical for 30 Branch days. aspirin 81 2021- No [id number] 81mg Take 1 Univers mg chewable -03-23 tablet by it y of tablet 00:00: 04:59 mouth in [place] 00 :00 the Medical morning Branch for 30 days. clopidogreL 2021- No [id number] 75mg Take 1 Univers 75 mg -03-23 tablet by ity of tablet 00:00: 04:59 mouth in [place] 00 :00 the Medical morning Branch for 30 days. Fluticasone 2021- No [id number] 1{puff} Inhale 1 Univers -Salmeterol -03-23 Puff every i ty of 100-50 00:00: 04:59 12 [place] mcg/dose 00 :00 (twelve) Medical inhalation hours for Bran ch disk 30 days. rosuvastati 2021- No [id number] 20mg Take 1 Univers n 20 mg -03-23 tablet by ity of tablet 00:00: 04:59 mouth at [place] 00 :00 bedtime Medical for 30 Branch days. aspirin 81 2021- No [id number] 81mg Take 1 Univers mg chewable -03-23 tablet by it y of tablet 00:00: 04:59 mouth in [place] 00 :00 the Medical morning Branch for 30 days. clopidogreL 2021- No [id number] 75mg Take 1 Univers 75 mg 8-03-23 tablet by ity of tablet 00:00: 04:59 mouth in [place] 00 :00 the Medical morning Branch for 30 days. Fluticasone 2021- No [id number] 1{puff} Inhale 1 Univers -Salmeterol 8-03-23 Puff every i ty of 100-50 00:00: 04:59 12 [place] mcg/dose 00 :00 (twelve) Medical inhalation hours for Bran ch disk 30 days. rosuvastati 2021-2021- No [id number] 20mg Take 1 Univers n 20 mg -03-23 tablet by ity of tablet 00:00: 04:59 mouth at [place] 00 :00 bedtime Medical for 30 Branch days. aspirin 81 2021-2021- No [id number] 81mg Take 1 Univers mg chewable -03-23 tablet by it y of tablet 00:00: 04:59 mouth in [place] 00 :00 the Medical morning Branch for 30 days. clopidogreL 2021-2021- No [id number] 75mg Take 1 Univers 75 mg 8-03-23 tablet by ity of tablet 00:00: 04:59 mouth in [place] 00 :00 the [facility] morning Branch for 30 days. Fluticasone 2021-2021- No [id number] 1{puff} Inhale 1 Univers -Salmeterol -23 03- Puff every i ty of 100-50 00:00: 04:59 12 [place] mcg/dose 00 :00 (twelve) Medical inhalation hours for Bran ch disk 30 days. rosuvastati 2021-2021- No [id number] 20mg Take 1 Univers n 20 mg 02-20 tablet by ity of tablet 00:00: 04:59 mouth at [place] 00 :00 bedtime Medical for 30 Branch days. aspirin 81 2021-2- No [id number] 81mg Take 1 Univers mg chewable -03-23 tablet by it y of tablet 00:00: 04:59 mouth in [place] 00 :00 the Medical morning Branch for 30 days. clopidogreL 2021-0 2021- No [id number] 75mg Take 1 Univers 75 mg 8-03-23 tablet by ity of tablet 00:00: 04:59 mouth in [place] 00 :00 the Medical morning Branch for 30 days. Fluticasone 2021-2- No [id number] 1{puff} Inhale 1 Univers -Salmeterol 02-20 Puff every i ty of 100-50 00:00: 04:59 12 [place] mcg/dose 00 :00 (twelve) Medical inhalation hours for Bran ch disk 30 days. rosuvastati 2021- No [id number] 20mg Take 1 Univers n 20 mg 02-20 tablet by ity of tablet 00:00: 04:59 mouth at [place] 00 :00 bedtime Medical for 30 Branch days. azithromyci 2021- No 500mg 500 mg, U nivers n [...] at 0900, Until Discontinu ed, Routine lisinopriL 2021-2021- No 10mg 10 mg, [facility] (PRINIVIL,Z 02-19 Oral, QHS, i ty of ESTRIL) 02:00: 23:44 First dose [place] as tablet 10 00 :08 on [place] [facility] mg 02/18/22 at Branch 2100, Until Discontinu ed, Routine lisinopriL 2021-2021- No 10mg 10 mg, [facility] (PRINIVIL,Z 02-19 Oral, QHS, i ty of ESTRIL) 02:00: 23:44 First dose [place] as tablet 10 00 :08 on [place] [facility] mg 02/18/22 at Branch 2100, Until Discontinu ed, Routine methylPREDN 2021- No 40mg 40 mg, Uni vers ISolone sod 02-18 Intravenou i ty of succ 16:30: 23:44 s, Q12H, [place] (SOLU-MEDRO 00 :08 First dose Me dical L (PF)) on [place] Branch injection 02/18/22 at 40 mg 1130, Until Discontinu ed, 1 mL methylPREDN 2021- No 40mg 40 mg, Uni vers ISolone sod 02-18 Intravenou i ty of succ 16:30: 23:44 s, Q12H, [place] (SOLU-MEDRO 00 :08 First dose Me dical L (PF)) on [facility] Branch injection 02/18/22 at 40 mg 1130, Until Discontinu ed, 1 mL Fluticasone 2021-0 2021- No 1{puff} 1 Puff, Univers -Salmeterol 02-18 Inhalation i ty of (ADVAIR) 15:30: 23:44 , Q12H, [place] 100-50 00 :08 First dose Medical mcg/dose on [facility] Branch inhalation 02/18/22 at disk 1 Puff 1030, Until Discontinu ed, Routine Fluticasone 2021-0 2021- No 1{puff} 1 Puff, Univers -Salmeterol 02-18 Inhalation i ty of (ADVAIR) 15:30: 23:44 , Q12H, [place] 100-50 00 :08 First dose Medical mcg/dose on [place] Branch inhalation 02/18/22 at disk 1 Puff 1030, Until Discontinu ed, Routine heparin 2021- No 5000U 5,000 Univers (porcine) 02-18 Units, ity of injection 01:00: 23:44 [place]cut[place]o [place] 5,000 Units 00 :08 us, BID, Medi south First dose Branch on 02/17/22 at 1999, Until Discontinu ed, Routine heparin 2021- No 5000U 5,000 Univers (porcine) 02-18 Units, ity of injection 01:00: 23:44 Subcutaneo [place] 5,000 Units 00 :08 us, BID, Medi south First dose Branch on Tue02/17/22 at 1999, Until Discontinu ed, Routine iohexol 2021- No [...] injection 15 :15 on Tue02/17/22 at Branch [facility], Until Tue02/17/22 at 104, Routine, CV Intraproce dure FENTanyl PF 2021- No ONCE INTRA Univers (SUBLIMAZE 02-17 PROCEDURE, it y of (PF)) 14:55: 15:48 Starting [place] injection 15 :15 on Tue02/17/22 at Branch [facility], Until Tue02/17/22 at 104, Routine, CV Intraproce dure rosuvastati 2021- No [...] of XL (TOPROL 15:45: 23:44 First dose [place] XL) tablet 00 :08 on [facility] Medical 25 mg 02/16/22 at Branch 1045, Until Discontinu ed, Routine metoprolol 2021- No 25mg 25 mg, Univ ers succinate 02-16 Oral, BID, ity of XL (TOPROL 15:45: 23:44 First dose [place] XL) tablet 00 :08 on [facility] 25 mg 02/16/22 at Branch 1045, Until Discontinu ed, Routine aspirin No 81mg 81 mg, Univers chewable 02-15 Oral, ity of tablet 81 14:00: 23:44 DAILY, [place] mg 00 :08 First dose Medical on [facility] 02/15/22 at 0900, Until Discontinu ed, Routine aspirin 2021- No 81mg 81 mg, Univers chewable 02-15 Oral, ity of tablet 81 14:00: 23:44 DAILY, [place] mg 00 :08 First dose Medical on [facility] 02/15/22 at 0900, Until Discontinu ed, Routine Sliding No Subcutaneo Uni vers Scale 02-15 us, AC+HS, ity of Insulin-Reg 02:00: 23:44 First dose [place] ular + Fsbg 00 :08 on [facility] 02/14/22 at Branch 2100, Until Discontinu ed, Routine Sliding No Subcutaneo Uni vers Scale 02-15 us, AC+HS, ity of Insulin-Reg 02:00: 23:44 First dose [place] ular + Fsbg 00 :08 on [facility] 02/14/22 at Branch 2100, Until Discontinu ed, Routine glucagon No 1mg 1 mg, Univers (GLUCAGEN 02-14 Intramuscu ity of DIAGNOSTIC 23:37: 23:44 lar, PRN, [place] KIT) 33 :08 Starting Medical injection 1 on [facility] mg 02/14/22 at 1837, Until 02/20/22 at [...] mouth Medic al GG, 00 :00 daily. [place] (CULTURELLE ) 10 billion cell capsule lactobacill 2022- No 1{capsu QD Take [address] [facility] us 5-20 05-20 le} capsule by [facility] rhamnosus, 00:00: 23:59 mouth Medic al GG, 00 :00 daily. [place] (CULTURELLE ) 10 billion cell capsule lactobacill 2022- No 1{capsu QD Take [address] [facility] us 5-20 05-20 le} capsule by [facility] rhamnosus, 00:00: 23:59 mouth Medic al GG, 00 :00 daily. [place] (CULTURELLE ) 10 billion cell capsule lactobacill 2022- No 1{capsu QD Take [address] [facility] us 5-20 05-20 le} capsule by [facility] rhamnosus, 00:00: 23:59 mouth Medic al GG, 00 :00 daily. [place] (CULTURELLE ) 10 billion cell capsule lactobacill 2022- No 1{capsu QD Take [address] [facility] us 5-20 05-20 le} capsule by [facility] rhamnosus, 00:00: 23:59 mouth Medic al GG, 00 :00 daily. [place] (CULTURELLE ) 10 billion cell capsule amLODIPine [...] daily for 90 days. aspirin 81 2021-0 2022- No 81mg QD Take [address] [facility] MG chewable 5-20 08-18 tablet (81 L ukes tablet 00:00: 23:59 mg total) Medic al 00 :00 by mouth Center daily for 90 days. amLODIPine 2021-2- No 10mg QD Take [address] [facility] (NORVASC) 5-20 08-18 tablet (10 Sally es 10 MG 00:00: 23:59 mg total) Medica l tablet 00 :00 by mouth Center daily for 90 days. aspirin 81 2021-0 2022- No 81mg QD Take 1 CHI [...] mouth Center daily for 90 days. amLODIPine 2021-0 2- No 10mg QD Take [address] [facility] [...] 20:45: daily. Medic al MG tablet 02 [place] carvediloL 0 Yes 6.25mg Take 6.[address] (COREG) 5-19 mg by [facility] 6.25 MG 20:45: mouth 2 Medical tablet 02 (two) Center times daily with breakfast and dinner. lisinopriL 2021-0 Yes 40mg QD Take [address] (PRINIVIL,Z 5-19 by mouth Luke s ESTRIL) 40 20:45: daily. Medic al MG tablet 02 [place] carvediloL Yes 6.25mg Take 6.[address] (COREG) 5-19 mg by [facility] 6.25 MG 20:45: mouth 2 Medical tablet 02 (two) Center times daily with breakfast and dinner. lisinopriL 2021-0 Yes 40mg QD Take [address] (PRINIVIL,Z 5-19 by mouth Luke s ESTRIL) 40 20:45: daily. Medic al MG tablet 02 [place] carvediloL 0 Yes 6.25mg Take 6.[address] (COREG) 5-19 mg by [facility] 6.25 MG 20:45: mouth 2 Medical tablet 02 (two) Center times daily with breakfast and dinner. lisinopriL 2021-0 Yes 40mg QD Take [address] (PRINIVIL,Z 5-19 by mouth Luke s ESTRIL) 40 20:45: daily. Medic al MG tablet 02 [place] carvediloL Yes 6.25mg Take 6.[address] [...] Medic al 36 :00 Center predniSONE 2021-0 2- No 10mg Q.5D Take [address] [facility] (DELTASONE) 5-19 05-19 by mouth 2 L ukes 10 MG 16:04: 00:00 (two) Medical tablet 36 :00 times Center daily. amLODIPine 2021-0 2022- No 5mg QD Take [address] (NORVASC) 5 5-19 05-19 by mouth Sally es MG tablet 16:04: 00:00 daily. Medic al 36 :00 Center predniSONE 2021-0 2021- No 10mg Q.5D Take [address] (DELTASONE) 5-19 05-19 by mouth 2 L ukes 10 MG 16:04: 00:00 (two) Medical tablet 36 :00 times Center daily. amLODIPine 2021-2021- No 5mg QD Take [address] (NORVASC) 5 5-19 05-19 by mouth Sally es MG tablet 16:04: 00:00 daily. Medic al 36 :00 Center predniSONE 2021-0 2021- No 10mg Q.5D Take [address] (DELTASONE) 5-19 05-19 by mouth 2 L ukes 10 MG 16:04: 00:00 (two) Medical tablet 36 :00 times Center daily. amLODIPine 2021-0 2021- No 5mg QD Take [address] (NORVASC) 5 5-19 05-19 by mouth Sally es MG tablet 16:04: 00:00 daily. Medic al 36 :00 Center predniSONE 2021-0 2- No 10mg Q.5D Take 10 mg [...] 3mL Take [address] -albuteroL 5 05-14 by [facility] (DUO-NEB) 00:00: 23:59 nebulizati M edical 0.5 mg-3 00 :00 on every 6 Cente r mg(2.5 mg (six) base)/3 mL hours as nebulizer needed for solution Wheezing for up to 360 days. acetaminoph 2021-0 2022- No 650mg Take [address] en 5-19 05-14 tablets [facility] (TYLENOL) 00:00: 23:59 (650 mg Medi south 325 MG 00 :00 total) by Center tablet mouth every 6 (six) hours as needed for up to 360 days. ipratropium 2021-0 2022- No 3mL Take [address] -albuteroL - 05-14 by [facility] (DUO-NEB) 00:00: 23:59 nebulizati M edical 0.5 mg-3 00 :00 on every 6 Cente r mg(2.5 mg (six) base)/3 mL hours as nebulizer needed for solution Wheezing for up to 360 days. acetaminoph 2021-0 2022- No 650mg Take [address] en 5-19 05-14 tablets [facility] (TYLENOL) 00:00: 23:59 (650 mg Medi south 325 MG 00 :00 total) by Center tablet mouth every 6 (six) hours as needed for up to 360 days. ipratropium 2021-0 3- No 3mL Take [address] -albuteroL 5- 05-14 by [facility] (DUO-NEB) 00:00: 23:59 nebulizati M edical 0.5 mg-3 00 :00 on every 6 Cente r mg(2.5 mg (six) base)/3 mL hours as nebulizer needed for solution Wheezing for up to 360 days. acetaminoph 2021-0 2022- No 650mg Take [address] en 5-19 05-14 tablets [facility] (TYLENOL) 00:00: 23:59 (650 [...] [address] [address] -albuteroL 11-1214 by Lu[facility] (InstagarageO-NEB) 00:00: 23:59 nebulizati M edical 0.5 mg-3 00 :00 on every 6 Cente r mg(2.5 mg (six) base)/3 mL hours as nebulizer needed for solution Wheezing for up to 360 days. apixaban 2021-2021- No 5mg Q.5D Take [address] [facility] (ELIQUIS) 5 -12 02-17 tablet (5 Romero kes mg Tab 00:00: 23:59 mg total) Medic al tablet 00 :00 by mouth 2 Center (two) times daily for 90 days. apixaban 2021-0 2021- No 5mg Q.5D Take [address] [address] (ELIQUIS) 5 5-12 02-17 tablet (5 Romero kes mg Tab 00:00: 23:59 mg total) Medic al tablet 00 :00 by mouth 2 Center (two) times daily for 90 days. apixaban 2021-0 2021- No 5mg Q.5D Take [address] (ELIQUIS) 5 5-12 02-17 tablet (5 Romero kes mg Tab 00:00: 23:59 mg total) Medic al tablet 00 :00 by mouth 2 Center (two) times daily for 90 days. apixaban 2021-2021- No 5mg Q.5D Take [address] [address] (ELIQUIS) 5 5-19 08-17 tablet (5 Romero kes mg Tab 00:00: 23:59 mg total) Medic al tablet 00 :00 by mouth 2 Center (two) times daily for 90 days. apixaban 2021-2021- No 5mg Q.5D Take [address] [address] (ELIQUIS) 5 5-19 08-17 tablet (5 Romero kes mg Tab 00:00: 23:59 mg total) Medic al tablet 00 :00 by mouth 2 Center (two) times daily for 90 days. bumetanide 2021-2021- No 1mg Take [address] [facility] (BUMEX) 1 5-19 06-18 tablet (1 Luke s MG tablet 00:00: 23:59 mg total) Me dical 00 :00 by mouth 2 Center (two) times daily for 30 days. bumetanide 2021-2021- No 1mg Take [address] [facility] (BUMEX) 1 5-19 06-18 tablet (1 Luke s MG tablet 00:00: 23:59 mg total) Me dical 00 :00 by mouth 2 Center (two) times daily for 30 days. bumetanide 2021-2021- No 1mg Take [address] [facility] (BUMEX) 1 5-19 06-18 tablet (1 Luke s MG tablet 00:00: 23:59 mg total) Me dical 00 :00 by mouth 2 Center (two) times daily for 30 days. bumetanide 2021-0 2021- No 1mg Take [address] [facility] (BUMEX) 1 5-19 06-18 tablet (1 Luke s MG tablet 00:00: 23:59 mg total) Me dical 00 :00 by mouth 2 Center (two) times daily for 30 days. bumetanide 2021-0 2021- No 1mg Take [address] [facility] (BUMEX) 1 5-19 06-18 tablet (1 Luke s MG tablet 00:00: 23:59 mg total) Me dical 00 :00 by mouth 2 Center (two) times daily for 30 days. predniSONE 2022-0 2022- No Take [address] [facility] (DELTASONE) 11-12 [...] mg total) daily for 3 days. predniSONE Take [address] [facility] [facility] (DELTASONE) 11-12 tablets Luke s 10 MG 00:00: 23:59 (40 mg Medical tablet 00 :00 total) by Center mouth daily for 3 days, THEN 3 tablets (30 mg total) daily for 3 days, THEN 2 tablets (20 mg total) daily for 3 days, THEN 1 tablet (10 mg total) daily for 3 days. predniSONE Take [address] (DELTASONE) 11-12 tablets Luke s 10 MG 00:00: 23:59 (40 mg Medical tablet 00 :00 total) by Center mouth daily for 3 days, THEN 3 tablets (30 mg total) daily for 3 days, THEN 2 tablets (20 mg total) daily for 3 days, THEN 1 tablet (10 mg total) daily for 3 days. dextrometho No 5mL Take [address] [facility]12 by mouth Sally es enesin 00:00: 23:59 every 4 Medical (ROBITUSSIN 00 :00 (four) [facility]) 10-100 hours as mg/5 mL needed for liquid up to 10 days. dextrometho 2021-0 2- No 5mL Take [address] [address] rphan-guaif 5-19 05-29 by mouth Sally es enesin 00:00: 23:59 every 4 Medical (ROBITUSSIN 00 :00 (four) [facility]) 10-100 hours as mg/5 mL needed for liquid up to 10 days. dextrometho 2021-0 2021- No 5mL Take [address] [address] rphan-guaif 5-19 05-29 by mouth Sally es enesin 00:00: 23:59 every 4 Medical (ROBITUSSIN 00 :00 (four) [facility]) 10-100 hours as mg/5 mL needed for liquid up to 10 days. dextrometho 2021-0 2021- No 5mL Take [address] rphan-guaif 5-19 05-29 by mouth Sally es enesin 00:00: 23:59 every 4 Medical (ROBITUSSIN 00 :00 (four) [facility]) 10-100 hours as mg/5 mL needed for liquid up to 10 days. dextrometho 2021-0 2- No 5mL Take [address] rphan-guaif 5-19 05-29 by mouth Sally es enesin 00:00: 23:59 every 4 Medical (ROBITUSSIN 00 :00 (four) [facility]) 10-100 hours as mg/5 mL needed for liquid up to 10 days. amoxicillin 2021-0 2021- No 1{tbl} Q.5D Take [address] -clavulanat 5-19 05-22 tablet by Romero kes e 00:00: 23:59 mouth 2 Medical (AUGMENTIN) 00 :00 (two) [place] 875-125 mg times per tablet daily for 3 days. amoxicillin 2021-0 2021- No 1{tbl} Q.5D Take [address] -clavulanat 5-19 05-22 tablet by Romero kes e 00:00: 23:59 mouth 2 Medical (AUGMENTIN) 00 :00 (two) Center 875-125 mg times per tablet daily for 3 days. amoxicillin 2021- 2022- No 1{tbl} Q.5D Take [address] -clavulanat 5-19 05-22 tablet by Romero kes e 00:00: 23:59 mouth 2 Medical (AUGMENTIN) 00 :00 (two) Center 875-125 mg times per tablet daily for 3 days. amoxicillin 2021-2021- No 1{tbl} Q.5D Take [address] -clavulanat 5-19 05-22 tablet by Romero kes e 00:00: 23:59 mouth 2 Medical (AUGMENTIN) 00 :00 (two) Center 875-125 mg times per tablet daily for 3 days. amoxicillin 2021-0 2021- No 1{tbl} Q.5D Take [address] -clavulanat 5-19 05-22 tablet by Romero kes e 00:00: 23:59 mouth 2 Medical (AUGMENTIN) 00 :00 (two) Center 875-125 mg times per tablet daily for 3 days. lisinopriL 2021-0 Yes [id number] 10mg Take 1 Univers 10 mg 4-17 tablet by ity of tablet 00:00: mouth at [place] [address] bedtime. Medical Branch metoprolol 2021-0 Yes [id number] 25mg Take 1 Univers tartrate 25 4-17 tablet by ity of mg tablet 00:00: mouth 2 [place] (two) Medical times Branch daily. lisinopriL 2021-0 Yes [id number] 10mg Take 1 Univers 10 mg 4-17 tablet by ity of tablet 00:00: mouth at [place] [address] bedtime. Medical Branch metoprolol 2021-0 Yes [id number] 25mg Take 1 Univers tartrate 25 4-17 tablet by ity of mg tablet 00:00: mouth 2 (two) Medical times Branch daily. lisinopriL 2021-0 Yes [id number] 10mg Take 1 Univers 10 mg 4-17 tablet by ity of tablet 00:00: mouth at [place] [address] bedtime. Medical Branch metoprolol 2021-0 Yes [id number] 25mg Take 1 [facility] tartrate 25 4-17 tablet by ity of mg tablet 00:00: mouth 2 [place] (two) Medical times Branch daily. lisinopriL 2021-0 Yes [id number] 10mg Take 1 [facility] 10 mg 4-17 tablet by ity of tablet 00:00: mouth at [place] [address] bedtime. Medical Branch metoprolol Yes [id number] 25mg Take 1 [facility] tartrate 25 4-17 tablet by ity of mg tablet 00:00: mouth 2 [place] (two) Medical times Branch daily. lisinopriL Yes [id number] 10mg Take 1 [facility] 10 mg 4-17 tablet by ity of tablet 00:00: mouth at [place] [address] bedtime. Medical Branch metoprolol Yes [id number] 25mg Take 1 [facility] tartrate 25 4-17 tablet by ity of mg tablet 00:00: mouth 2 [place] (two) Medical times Branch daily. lisinopriL Yes [id number] 10mg Take 1 [facility] 10 mg 4-17 tablet by ity of tablet 00:00: mouth at [place] [address] bedtime. Medical Branch metoprolol Yes [id number] 25mg Take 1 [facility] tartrate 25 4-17 tablet by ity of mg tablet 00:00: mouth 2 [place] (two) Medical times Branch daily. lisinopriL Yes [id number] 10mg Take 1 [facility] 10 mg 4-17 tablet by ity of tablet 00:00: mouth at [place] [address] bedtime. Medical Branch metoprolol Yes [id number] 25mg Take 1 [facility] tartrate 25 4-17 tablet by ity of mg tablet 00:00: mouth 2 [place] (two) Medical times Branch daily. Spiriva Spiriva 2019-06 Yes SULEMA INHALE TWO [facility] Respimat Respimat 0-12 [place] (2) PUFFS Physici 2.5 MCG/ACT 2.5 MCG/ACT [...] Comments Source Systolic blood 2022-02-17 115 mm[Hg] [facility] pressure 14:38:59 [facility] Diastolic blood 2022-02-17 71 mm[Hg] [facility] f pressure 14:38:59 [facility] Respiratory rate 2022-02-17 20 /min [facility] 14:38:59 [facility] Oxygen saturation 2022-02-17 100 /min [facility] Arterial blood 14:38:59 [facility] by Pulse oximetry [place] Heart rate 2022-02-17 76 /min [facility] 11:00:00 [facility] Body temperature 2022-02-17 36.44 Leni [facility] 09:00:00 [facility] Body height 2022-02-14 182.9 cm University 22:40:00 [facility] Body weight 2022-02-14 83.6 kg University 22:40:00 [facility] BMI 2022-02-14 25.00 kg/m2 University 22:40:00 [facility] WEIGHT 2021-11-11 81.5 kg 04:18:00 HEIGHT 2021-11-10 [...] 2021-11-12 60 /min [facility] 19:40:00 [facility] Respiratory rate 2021-11-12 18 /min [facility] 19:40:00 [facility] Oxygen saturation 2021-11-12 99 /min [facility] in Arterial blood 19:40:00 Medical nter by Pulse oximetry Systolic blood 2021-11-12 137 mm[Hg] [facility] pressure 16:00:00 [facility] Diastolic blood 2021-11-12 83 mm[Hg] [facility] pressure 16:00:00 [facility] Body temperature 2021-11-[address] [facility] 16:00:00 [facility] Body weight 2021-11-[address] [facility] 04:18:00 [facility] BMI 2021-11-11 24.37 kg/m2 [facility] 04:18:00 [facility] Body height 2021-11-[address] [facility] 04:48:00 [facility] Systolic blood 2020-04-16 141 mm[Hg] Location: [place]; [facility] pressure 07:34:00 Position: Sitting Diastolic blood 2020-04-16 60 mm[Hg] Location: LUE; [facility] pressure 07:34:00 Position: Sitting Weight 2020-04-16 173.125 [lb_av] [facility] 07:34:00 Body mass index 2020-04-16 22.23 kg/m2 [facility] (BMI) [Ratio] 07:34:00 Body temperature 2020-04-16 97.2 [degF] Method: [facility] 07:34:00 Tympanic Heart Rate 2020-04-16 59 /min Location: L [facility] 07:34:00 Radial; Quality: Normal O2 SAT 2020-04-16 95 % Source: [facility] 07:34:00 Non-Rebreather Respiratory rate 2020-04-07 18 /min [facility] 14:12:00 O2 SAT 2020-04-07 97 % Source: RA [facility] 14:12:00 Systolic blood 2020-04-07 137 mm[Hg] Location: RUE; [facility] pressure 14:12:00 Position: Sitting Diastolic blood 2020-04-07 74 mm[Hg] Location: RUE; [facility] pressure 14:12:00 Position: Sitting Body height 2020-04-07 74 [in_us] [facility] 14:12:00 Weight 2020-04-07 171 [lb_av] [facility] 14:12:00 Body mass index 2020-04-07 21.96 kg/m2 [facility] (BMI) [Ratio] 14:12:00 Body temperature 2020-04-07 97.8 [degF] [facility] 14:12:00 Heart Rate 2020-04-07 54 /min [facility] 14:12:00 Procedures Procedure Date / Time Performing Clinician Source Performed ASSIGNMENT OF BENEFITS 2022-03-31 22:21:39 Doctor Cynthia [facility] [place] AUTHORIZATION FOR RELEASE 2022-03-02 05:01:00 Doctor Cynthia, [facility] AUTHORIZATION FOR RELEASE 2022-02-26 05:01:00 Doctor Kayigned, [facility] AUTHORIZATION FOR RELEASE 2022-02-22 05:01:00 Doctor Kayigned, [facility] [place] POCT GLUCOSE (AUTOMATED) 2022-02-20 18:39:00 Carmelo Hodgson [facility] POCT GLUCOSE (AUTOMATED) 2022-02-20 14:45:00 Carmelo Hodgson [facility] BASIC METABOLIC PANEL (NA, 2022-02-20 10:00:00 Arcelia Tellez [facility] K, CL, CO2, GLUCOSE, BUN, Medica l Branch CREATININE, CA) EMERGENCY SERVICES 2022-02-20 05:01:00 Doctor Cynthia, [facility] AGREEMENTS AND [place] [facility] AUTHORIZATIONS BASIC METABOLIC PANEL (NA, 2022-02-20 01:23:00 Juan Lott [facility] K, CL, CO2, GLUCOSE, BUN, Medica l Branch CREATININE, CA) POCT GLUCOSE (AUTOMATED) 2022-02-20 01:01:00 Corwin Walden [facility] POCT GLUCOSE (AUTOMATED) 2022-02-19 22:27:00 Corwin Walden [facility] BASIC METABOLIC PANEL (NA, 2022-02-19 18:07:00 Juan Lott [facility] K, CL, CO2, GLUCOSE, BUN, Medica l Branch CREATININE, CA) POCT GLUCOSE (AUTOMATED) 2022-02-19 16:22:00 Corwin Walden [facility] POCT GLUCOSE (AUTOMATED) 2022-02-19 13:14:00 Corwin Walden [facility] BASIC METABOLIC PANEL (NA, 2022-02-19 13:12:00 [facility], CO2, GLUCOSE, BUN, Medica l Branch CREATININE, CA) MAGNESIUM 2022-02-19 09:17:00 Asad [facility] BASIC METABOLIC PANEL (NA, 2022-02-19 09:17:00 Asad [facility] K, CL, CO2, GLUCOSE, BUN, Medica l Branch CREATININE, CA) CBC WITHOUT DIFF 2022-02-19 09:17:00 Asad [facility] POCT GLUCOSE (AUTOMATED) 2022-02-19 01:13:00 Corwin Walden [facility] POCT GLUCOSE (AUTOMATED) 2022-02-18 21:58:00 Corwin Walden [facility] PROCALCITONIN 2022-02-18 19:50:00 Kellie Puentes [facility] POCT GLUCOSE (AUTOMATED) 2022-02-18 17:30:00 Corwin Walden [facility] CT THORAX WO CONTRAST 2022-02-18 17:14:31 Kellie Puentes [facility] POCT GLUCOSE (AUTOMATED) 2022-02-18 12:57:00 Corwin Walden [facility] BASIC METABOLIC PANEL (NA, 2022-02-18 08:43:00 Arcelia Tellez [facility] K, CL, CO2, GLUCOSE, BUN, Medica l Branch CREATININE, CA) CBC WITH DIFF 2022-02-18 08:43:00 Brandie Mckeon [facility] PROCALCITONIN 2022-02-18 08:43:00 Carmelo Hodgson [facility] POCT GLUCOSE (AUTOMATED) 2022-02-18 01:14:00 Corwin Walden [facility] POCT GLUCOSE (AUTOMATED) 2022-02-17 21:44:00 Corwin Walden [facility] CARDIAC CATHETERIZATION 2022-02-17 15:20[facility] 2022-02-17 15:20:00 Alexa [facility] CATH PROCEDURE LOG 2022-02-17 15:04:23 [facility]) 2022-02-17 12:58:00 Corwin Walden [facility] ACTIVATED PARTIAL THRMPLAS 2022-02-17 12:53:[address] [facility] MAGNESIUM 2022-02-17 09:01:00 Ben [facility] BASIC METABOLIC PANEL (NA, 2022-02-17 09:01:00 Hao Contreras [facility] K, CL, CO2, GLUCOSE, BUN, Medica l Branch CREATININE, CA) CBC WITH DIFF 2022-02-17 09:01:00 [facility] ([facility]OMATED) 2022-02-17 01:00:00 Corwin Walden [facility] BASIC METABOLIC PANEL (NA, 2022-02-17 00:57:00 Juan Lott [facility] K, CL, CO2, GLUCOSE, BUN, Medica l Branch CREATININE, CA) ACTIVATED PARTIAL THRMPLAS 2022-02-17 00:57:00 Brandie Mckeon [facility] POCT GLUCOSE (AUTOMATED) 2022-02-16 21:27:00 Corwin Walden [facility] TROPONIN I 2022-02-16 18:09:00 Michael Lott [facility] BASIC METABOLIC PANEL (NA, 2022-02-16 18:09:00 Juan Lott [facility] K, CL, CO2, GLUCOSE, BUN, Medica l Branch CREATININE, CA) POCT GLUCOSE (AUTOMATED) 2022-02-16 16:33:00 Corwin Walden [facility] MISCELLANEOUS CULTURE 2022-02-16 13:52:00 Michael Lott [facility] ACTIVATED PARTIAL THRMPLAS 2022-02-16 13:18:[address] [facility] POCT GLUCOSE (AUTOMATED) 2022-02-16 13:15:00 Corwin Walden [facility] PHOSPHORUS 2022-02-16 06:37:00 Michael Lott [facility] MAGNESIUM 2022-02-16 06:37:00 Kaylie [facility] TROPONIN I 2022-02-16 06:37:00 Carmel [facility] BASIC METABOLIC PANEL (NA, 2022-02-16 06:37:00 Brandie cMkeon [facility] K, CL, CO2, GLUCOSE, BUN, Medica l Branch CREATININE, CA) CBC WITH DIFF 2022-02-16 06:37:00 Brandie Mckeon o [facility] ACTIVATED PARTIAL THRMPLAS 2022-02-16 06:37:[address] [facility] POCT GLUCOSE (AUTOMATED) 2022-02-16 01:06:00 Corwin Walden [facility] PHOSPHORUS 2022-02-15 23:35:00 Chaparro Lottradha [facility] MAGNESIUM 2022-02-15 23:35:00 Kaylie [facility] TROPONIN I 2022-02-15 23:35:00 Tung, [facility] BASIC METABOLIC PANEL (NA, 2022-02-15 23:35:00 Corwin Walden [facility] K, CL, CO2, GLUCOSE, BUN, Medica l Branch CREATININE, CA) ACTIVATED PARTIAL THRMPLAS 2022-02-15 23:35:[address] [facility] POCT GLUCOSE (AUTOMATED) 2022-02-15 23:07:00 Corwin Walden [facility] ACTIVATED PARTIAL THRMPLAS 2022-02-15 17:03:00 Juan Lott [facility] BLOOD CULTURE SCREEN 2022-02-15 16:58:00 Kaylie [facility] PHOSPHORUS 2022-02-15 16:58:00 Kaylie [facility] MAGNESIUM 2022-02-15 16:58:00 Kaylie [facility] TROPONIN I 2022-02-15 16:58:00 Kaylie [facility] BASIC METABOLIC PANEL (NA, 2022-02-15 16:58:00 Corwin Walden [facility] K, CL, CO2, GLUCOSE, BUN, Medica l Branch CREATININE, CA) POCT GLUCOSE (AUTOMATED) 2022-02-15 16:41:00 Corwin Walden [facility] TRANSTHORACIC ECHO (TTE) 2022-02-15 13:26:00 Corwin Walden [facility] LIMITED W/ CONTRAST Medical Bran ch POCT GLUCOSE (AUTOMATED) 2022-02-15 13:04:00 Corwin Walden [facility] TROPONIN I 2022-02-15 11:04:00 Kamaljit Astorga [facility] PROCALCITONIN 2022-02-15 11:04:00 Kaylie [facility] MAGNESIUM 2022-02-15 10:14:00 Corwin Walden [facility] BASIC METABOLIC PANEL (NA, 2022-02-15 10:14:00 Corwin Walden [facility] K, CL, CO2, GLUCOSE, BUN, Medica l Branch CREATININE, CA) CBC WITHOUT DIFF 2022-02-15 10:14:00 Corwin Walden [facility] ACTIVATED PARTIAL THRMPLAS 2022-02-15 10:14:00 Kamaljit Astorga [facility] ACTIVATED PARTIAL THRMPLAS 2022-02-15 03:55:00 Kamaljit Astorga [facility] POCT GLUCOSE (AUTOMATED) 2022-02-15 02:36:00 Corwin Walden [facility] MRSA / MSSA SCREEN BY PCR, 2022-02-15 02:28:00 Corwin Walden [facility] XR CHEST 1 VW 2022-02-15 00:53:48 Iram [facility] TROPONIN I 2022-02-15 00:48:00 Iram [facility] BASIC METABOLIC PANEL (NA, 2022-02-15 00:48:00 Corwin Walden [facility] K, CL, CO2, GLUCOSE, BUN, Medica l Branch CREATININE, CA) LACTIC ACID WHOLE BLOOD 2022-02-15 00:48:00 Corwin Walden [facility] EKG-12 LEAD 2022-02-14 22:40:56 Osbaldo Aguiar [facility] CRITICAL CARE 2022-02-14 22:10:00 Osbaldo Aguiar [facility] AC PANEL 20 + LACTIC ACID 2022-02-14 21:25:00 Osbaldo Aguiar [facility] ACTIVATED PARTIAL [facility] 2022-02-14 20:54:00 Osbaldo Aguiar [facility] BLOOD CULTURE SCREEN 2022-02-14 20:53:00 Osbaldo Aguiar [facility] BLOOD CULTURE WORKUP 2022-02-14 20:53:00 Osbaldo Aguiar [facility] GRAM POSITIVE BLOOD 2022-02-14 20:53:00 Osbaldo Aguiar [facility] PROBE-AEROBIC AC PANEL 20 + LACTIC ACID 2022-02-14 20:23:00 Osbaldo Aguiar [facility] HB ECG ROUTINE & RHYTHM 2022-02-14 20:16:55 Osbaldo Aguiar [facility] XR CHEST 1 VW 2022-02-14 20:08:00 Cosme Osbaldo [facility] MAGNESIUM 2022-02-14 20:01:00 Cosme Osbaldo [facility] TROPONIN I 2022-02-14 20:01:00 Osbaldo Aguiar [facility] COMP. METABOLIC PANEL 2022-02-14 20:01:00 Osbaldo Aguiar [facility] ([id number]) Medical Branch CBC WITH DIFF 2022-02-14 20:01:00 Osbaldo Aguiar [facility] PROTHROMBIN TIME / INR 2022-02-14 20:01:00 Osbaldo Aguiar [facility] N-TERMINAL PRO-BNP 2022-02-14 20:01:00 Osbaldo Aguiar [facility] [place] COVID-19 (ID NOW RAPID 2022-02-14 20:01:00 Osbaldo Aguiar [facility] TESTING) Medical Branch LAB ONLY COVID 2022-02-14 20:01:00 Osbaldo Aguiar [facility] CONSENT/REFUSAL FOR 2022-02-14 19:55:28 Doctor Unassigned, [facility] DIAGNOSIS AND TREATMENT [facility] EXTERNAL PROVIDER RECORDS 2022-02-14 05:01:00 Doctor Unassigned, [facility] Name [facility] HOSPITAL ADMISSION 2022-02-14 05:01:00 Doctor Unassnakul, [facility] POCT-GLUCOSE METER 2021-11-12 15:41:00 Prosper [facility] POCT-GLUCOSE METER 2021-11-12 11:18:00 Prosper [facility] POCT-GLUCOSE METER 2021-11-12 06:33:00 Prosper [facility] CBC W/PLT COUNT & AUTO 2021-11-12 04:33:00 Juventino Smith [facility] BASIC METABOLIC PANEL 2021-11-12 04:33:[address] [facility] MAGNESIUM 2021-11-12 04:33:00 Juventino [facility] CBC W/PLT COUNT & AUTO 2021-11-12 04:33:00 Juventino Smith [facility] POCT-GLUCOSE METER 2021-11-11 21:38:00 [facility] POCT-GLUCOSE METER 2021-11-11 16:31:00 [facility] POCT-GLUCOSE METER 2021-11-11 11:33:00 Prosper [facility] NM MYOCARDIAL PERFUSION 2021-11-11 11:00:00 Bebeto [facility], [facility] Center ECG 12-LEAD 2021-11-11 09:26:30 [facility] POCT-GLUCOSE METER 2021-11-11 06:42:00 Juventino Smith [facility] XR CHEST 1 VIEW PORTABLE / 2021-11-11 05:48:00 Robb Reina [facility] BEDSIDE [facility] CBC W/PLT COUNT & AUTO 2021-11-11 04:06:00 Juventino Smith [facility] BASIC METABOLIC PANEL 2021-11-11 04:06:[address] [facility] MAGNESIUM 2021-11-11 04:06:00 Juventino [facility] CBC W/PLT COUNT & AUTO 2021-11-11 04:06:00 SarahJuventino [facility] POCT-GLUCOSE METER 2021-11-10 20:48:00 SarahJuventino [facility] POCT-GLUCOSE METER 2021-11-10 15:39:00 [facility] POCT-GLUCOSE METER 2021-11-10 11:33:00 SarahJuventino [facility] BASIC METABOLIC PANEL 2021-11-10 06:58:00 [facility] HEPATIC FUNCTION PANEL 2021-11-10 06:58[facility]O 2021-11-10 06:58:00 Cheri [facility] CBC W/PLT COUNT & AUTO 2021-11-10 06:58:00 Cheri [facility] POCT-GLUCOSE METER 2021-11-10 06:54:00 Juventino Smith [facility] POCT-GLUCOSE METER 2021-11-09 21:49:00 Juventino Smith [facility] POCT-GLUCOSE METER 2021-11-09 16:10:00 Juventino Smith [facility] POCT-GLUCOSE METER 2021-11-09 12:19:00 Juventino Smith [facility] VENOUS DOPPLER LEGS 2021-11-09 10:33:00 Velma Bustamante [facility] XR CHEST 1 VIEW PORTABLE / 2021-11-09 07:32:00 Velma Bustamante [facility] POCT-GLUCOSE METER 2021-11-09 07:22:00 Juventino Smtih [facility] BASIC METABOLIC PANEL 2021-11-09 04:06:00 Cheri [facility] HEPATIC FUNCTION PANEL 2021-11-09 04:06:00 Cheri [facility] CBC W/PLT COUNT & AUTO 2021-11-09 04:06:00 Cheri [facility] HC LAB HIV-1 AG W/HIV-1&2 2021-11-09 04:06:00 Hector Gaspar [facility] AB [facility] HEPATITIS PANEL, ACUTE 2021-11-09 04:06:00 Hector Gaspar I [facility] HEMOGLOBIN A1C 2021-11-09 04:06:00 Hector Gaspar [facility] APTT 2021-11-09 04:06:00 Cheri [facility] CBC W/PLT COUNT & AUTO 2021-11-09 04:06[facility] 2021-11-09 00:21[facility] 2021-11-08 21:26:59 Unknown, [facility] ECG 12-LEAD 2021-11-08 21:26:59 Unknown, [facility] POCT-GLUCOSE METER 2021-11-08 20:43:00 Juventino Smith [facility] APTT 2021-11-08 [facility]:42[facility] 2021-11-08 16:28[facility]SE 2021-11-08 16:27:00 Juventino [facility] SPUTUM CULTURE + GRAM 2021-11-08 15:33:00 Guera Yarbrough [facility] US RENAL COMPLETE 2021-11-08 12:14:00 [facility]SE METER 2021-11-08 11:32:00 Juventino Smith [facility] APTT 2021-11-08 11:22[facility] 2021-11-08 11:22:00 [facility] BASIC METABOLIC PANEL 2021-11-08 11:22:00 Chester Jarvis [facility] 2D ECHO W/ DOPPLER 2021-11-08 10:36:38 [facility] (CW/PW/COLOR) [facility] CT CHEST WITHOUT IV 2021-11-08 09:34:00 [facility] CONTRAST [facility] NM LUNG PERFUSION SCAN 2021-11-08 09:20:00 [facility] XR CHEST 1 VIEW PORTABLE / 2021-11-08 08:23:00 Chester Jarvis [facility] APTT 2021-11-08 05:53:00 Cheri, [facility] LACTIC ACID, VENOUS 2021-11-08 05:07:00 Cheri, [facility] LEGIONELLA ANTIGEN, URINE 2021-11-08 04:17:00 Cheri, [facility] URINALYSIS WITH 2021-11-08 04:16:00 Cheri, [facility] MICROSCOPIC IF INDICATED [facility] URINALYSIS MICROSCOPIC 2021-11-08 04:16:00 Cheri, [facility] TROPONIN I 2021-11-08 04:07:00 Cheri, [facility] BLOOD CULTURE 2021-11-08 04:02:00 Cheri [facility] POCT-GLUCOSE METER 2021-11-08 04:00:00 Cheri [facility] PROCALCITONIN 2021-11-08 03:59:00 Cheri, [facility] BASIC METABOLIC PANEL 2021-11-08 03:58:00 Cheri, [facility] HEPATIC FUNCTION PANEL 2021-11-08 03:58:00 Cheri, [facility] HEMOGLOBIN A1C 2021-11-08 03:58:00 Cheri [facility] PROTHROMBIN TIME/INR 2021-11-08 03:58:00 Cheri, [facility] MAGNESIUM 2021-11-08 03:58:00 Cheri, [facility] PHOSPHORUS 2021-11-08 03:58:00 Cheri, [facility] CBC W/PLT COUNT & AUTO 2021-11-08 [facility]:58[facility] B-TYPE NATRIURETIC FACTOR 2021-11-08 03:58:00 Cheri [facility] (BNP) [facility] D-DIMER 2021-11-08 03:58:00 Cheri, [facility] CBC W/PLT COUNT & AUTO 2021-11-08 03:58:00 Cheri, [facility] DIFFERENTIAL [facility] ECG 12-LEAD 2021-11-08 03:52:58 Cheri, [facility] ECG 12-LEAD 2021-11-08 03:52:58 Cheri, [facility] XR CHEST 1 VIEW PORTABLE / 2021-11-08 03:47:00 Cheri, [facility] BEDSIDE [facility] XR ABDOMEN/KUB 1 VIEW 2021-11-08 03:47:00 Cheri, [facility] PORTABLE [facility] BLOOD GAS, ARTERIAL 2021-11-08 03:29:00 Cheri, [facility] EKG-SCANNED 2021-11-08 00:00:00 Provider, [facility] PET CT Lung solitary pulm 2020-04-07 00:00:00 [facility] nodule [id number] Plan of Care Planned Activity Planned Date [...] [facility] Pending 00:00:00 pulm nodule [id number] [code = 79366] Diagnostic Test 2020-04-[address] Lung solitary [facility] Pending 00:00:00 pulm nodule 12898 [code = 95577] Future Scheduled [address] [facility] Test 00:00:00 aneurysm screening Medical C enter (procedure) [code = 325414964] Future Scheduled [address] [facility] Test 00:00:00 aneurysm screening Medical C enter (procedure) [code = 712820516] Future Scheduled [address] [facility] Test 00:00:00 aneurysm screening Medical C enter (procedure) [code = 132415110] Future Scheduled [address] [facility] Test 00:00:00 aneurysm screening Medical C enter (procedure) [code = 854343252] Future Scheduled [address] [facility] Test 00:00:00 aneurysm screening Medical C enter (procedure) [code = 213576060] Future Scheduled 2002 SHINGLES VACCINES (1 [facility] [...] [facility] Center colon (procedure) [code = 323989097] Future Scheduled [address] [facility] Test 00:00:00 malignant neoplasm of Medica [facility] Center colon (procedure) [code = 279717019] Future Scheduled [address] [facility] Test 00:00:00 malignant neoplasm of [facility] Center colon (procedure) [code = 688999943] Future Scheduled [address] [facility] Test 00:00:00 malignant neoplasm of Medica [facility] Center colon (procedure) [code = 542942049] Future Scheduled 1952 Sigmoidoscopy [facility]code [facility]] Medical Cente r Future Scheduled [address] [facility] 00:00:00 (combo) [code = CT Medical C enter Colonography (combo)] Future Scheduled [address] [facility] Test 00:00:00 malignant neoplasm of Medica l Center colon (procedure) [code = 447786883] Future Scheduled [address] [facility] Test 00:00:00 malignant neoplasm of Medica l Center colon (procedure) [code = 373839314] Future Scheduled [address] [facility] Test 00:00:00 malignant neoplasm of Medica l Center colon (procedure) [code = 079614836] Future Scheduled [address] [facility] Test 00:00:00 malignant neoplasm of Medica l Center colon (procedure) [code = 886299008] Future Scheduled 1952 Sigmoidoscopy [facility]code [facility] S[facility]oscopy] Medical Cente r Future Scheduled [address] [facility] 00:00:00 (combo) [code = CT Medical C enter Colonography (combo)] Future Scheduled [address] [facility] Test 00:00:00 malignant neoplasm of Medica l Center colon (procedure) [code = 228212921] Future Scheduled [address] [facility] Test 00:00:00 malignant neoplasm of Medica l Center colon (procedure) [code = 950504709] Future Scheduled [address] [facility] malignant neoplasm of [facility] colon (procedure) [code = 487141107] Future Scheduled [address] [facility]:00 malignant ne[facility] of [facility] colon (procedure) [code = 188006836] Future Scheduled 1952 Sigmoidoscopy [facility] Cent[facility] r Future Scheduled [address] [facility]00 (combo) [code = CT Medical C enter Colonography (combo)] Future Scheduled [address] [facility] 00:[facility]:00 malignant ne[facility] colon (procedure) [code = 440704765] Future Scheduled [address] [facility] 00:00:00 malignant neoplasm of [facility] Center colon (procedure) [code = 253881247] Future Scheduled [address] [facility] 00:00:00 malignant neoplasm of [facility] colon (procedure) [code = 532365354] Future Scheduled [address] [facility] 00:00:00 malignant neoplasm of [facility] Center colon (procedure) [code = 225315096] Future Scheduled 1952 Sigmoidoscopy [facility]] Medical Cente r Future Scheduled [address] [facility] 00:00:00 (combo) [code = CT Medical C enter Colonography (combo)] Future Scheduled [address] [facility] 00:00:00 malignant neoplasm of Medica [facility] Center colon (procedure) [code = 677868181] Future Scheduled [address] [facility] 00:00:00 malignant neoplasm of [facility] Center colon (procedure) [code = 267215589] Future Scheduled [address] [facility] 00:00:00 malignant neoplasm of Med[facility] Center colon (procedure) [code = 217003740] Future Scheduled [address] [facility] 00:00:00 malignant neoplasm of Medica [facility] Center colon (procedure) [code = 272070928] Future Scheduled 1952 Sigmoidoscopy [facility] Start End Encounter Admission Attending Care Care Encounter Source Date/Time Date/Time Type Type Clinicians Facility Department ID 2022-03-31 2022-03-31 Orders Doctor MATTHEW 1.2.840.114 [id number] Univers 00:00:00 00:00:00 Only Unassigned, MARTHA 350.1.13.10 [facility] [place] [facility] 4.2.7.2.686 Rolando as [phone] [facility] [address] 2022-03-02 2022-03-02 Orders Doctor MATTHEW 1.2.840.114 [id number] Univers 00:00:00 00:00:00 Only Unassigned, MARTHA 350.1.13.10 it[facility] [place] [facility] 4.2.7.2.686 Rolando as [id number] [facility] [address] [place] 2022-02-26 2022-02-26 Orders Doctor CASTRO 1.2.840.114 [id number] Univers 00:00:00 00:00:00 Only Unassigned, MARTHA 350.1.13.10 ity [facility] [place] [facility] 4.2.7.2.686 Rolando as [id number] [facility] [address] 2022-02-23 2022-02-23 Care Marlisa 2.16.840. 2.16.840.1. CLAC [id number] [facility] 21:00:00 [facility]:30[id number]. [id number]. [facility] [id number] 2022-02-23 2022-02-23 Transition ENE Wang 1.2.840.114 [id number] Univers 00:00:00 00:00:00 of Care Nyasia B LEHMAN 350.1.13.10 [place] [id number] [facility] [address] 2022-02-22 2022-02-22 Transition ENE Wang 1.2.840.114 [id number] Univers 00:00:00 00:00:00 of Care Nyasia B LEH[place] 350.1.13.10 [place] [id number] [facility] [address] 2022-02-22 2022-02-22 Orders Doctor MATTHEW 1.2.840.114 [id number] Univers 00:00:00 00:00:00 Only Unassigned, MARTHA 350.1.13.10 [facility] [place] [facility] 4.2.7.2.686 Rolando as [id number] [facility] [address] 2022-02-20 2022-02-20 Emergency X [facility] ERT [id number] Univers 18:53:00 20:00:00 FELICIA galo o f [facility] 2022-02-20 2022-02-20 Emergency [facility] 1.2.840.114 [id number] Univers 18:53:00 20:00:00 [facility] 350.1.13.10 [place] [phone] [facility] [address] ([facility]) 2022-02-20 2022-02-20 Emergency X [facility] ERT [id number] Univers 18:53:00 20:00:00 FELICIA gomez f [facility] 2022-02-14 2022-02-20 [facility] Osbaldo Aguiar [facility] 1.2.840.1 14 [id number] Univers 14:51:00 17:13:00 Encounter Corwin Walden [facility] 350.1.13.10 ity of [place] 4.2.7.2.686 T Carmelo Foster [id number] [facility] [address] ([facility]) 2022-02-14 2022-02-20 Inpatient X [facility] [id number] Univers 14:51:00 17:13:00 CARMLEO ity of [facility] 2022-02-17 2022-02-17 [facility] 1.2.840.114 [id number] Univers 09:00:00 11:00:00 [facility] 350.1.13.10 [place] [phone] [facility] [address] ([facility]) 2022-01-08 2022-01-08 Outpatient DMG DMG [id number] Dev[facility] 07:10:00 07:10:00 0715 Medica l Group 2021-12-09 2021-12-09 Outpatient JOE MALONE SLE [id number] [facility] 00:00:00 00:00:00 TONY 2021-12-08 2021-12-08 Telephone Haven Ortiz [facility] [id number] [facility]00 [facility] 2021-12-08 2021-12-08 Telephone Haven Ortiz [facility] [id number] [facility] 00[facility]00 [facility] 2021-11-08 2021-11-12 [facility] [id number] 03:10[facility] 20:10[facility]00 [facility] 2021-11-12 Inpatient ER [facility] Medical ICU [id number] [facility] 03:10:00 20:10:[address] [facility] 2021-11-08 2021-11-12 [facility] [id number] 03:10[facility]00 20:10:00 Encounter Juventino Smith [facility] 2021-11-10 2021-11-10 Travel [facility] [id number] [facility] 2021-11-10 2021-11-10 Travel [facility] [id number] [facility] 2021-10-11 2021-10-11 Emergency X [facility] ERT [id number] Univers 05:52:00 06:48:00 HARDEEP galo [facility] 2021-10-11 2021-10-11 Emergency [facility] [id number] [id number] Univers 05:52:00 06:48:00 [facility] 350.1.13.10 itJose [facility] 4.2.7.2.686 [facility] [phone] [facility] [address] 2020-11-21 2020-11-21 Outpatient DMG DMG [id number] Devoted 08:00:00 08:00:00 0528 Medica l Group 2020-05-05 2020-05-05 Outpatient JOHN [facility] PUL [address] [facility] 13:21:00 15:55:00 PASTORA 2020-04-15 2020-04-15 Appointmen [facility] Cardiology [id number] [place] 14:00:00 14:00:00 t; [facility] [place] 2020-04-07 2020-04-07 Appointmen DOLLY LOPEZ Pulmonary & [id number] [place] 13:30:00 13:30:00 t; PASTORA LOPEZ, Sleep Physi ci Carlos GUILLORY M.D. Results Test Description Test Time Test Comments Results Result Comments Source BLOOD CULTURE SCREEN 2022-02-20 19:01:45 Test Item Value Reference Range Interpretation Comme nts Blood Culture-Aerobic (test No organisms isolated No growth Previous preliminary code = 75893-5) verified res ult was Culture In Prog [...] No growth Previous preliminary (test code = 54372-0) verifi ed result was Culture In Prog [...] CDT Lab Interpretation (test Normal code = 65279-2) [facility] CULTURE [id number] 19:01:45 Test Item Value Reference Range Interpretation Comments Blood Culture-Aerobic No organisms No growth Previo us (test code = 72784-7) isolated prelim inary verified result was Culture [...] Culture-Anaerobic isolated preliminar y (test code = 26761-4) verifi ed result was Culture In Progress on 02/15/2022 at 17 02 CDTPrevious preliminary verified result was No growth a t 24 hours on 02/16/2022 at 14 CDTPrevious preliminary verified result was No growth a t 48 hours on 02/17/2022 at 14 01 CDTPrevious preliminary verified result was No growth a t 72 hours on 02/18/2022 at 14 01 CDT Lab Interpretation Normal (test code = 73963-2) [facility] CULTURE [id number] 19:01:45 Test Item Value Reference Range Interpretation Comments Blood Culture-Aerobic No organisms No growth Previo us (test code = 84849-7) isolated prelim inary verified result was Culture [...] Culture-Anaerobic isolated preliminar y (test code = 82875-0) verifi ed result was Culture In Progress [...] CDT Lab Interpretation Normal (test code = 22284-3[id number] 19:01:45 Test Item Value Reference Range Interpretation Comments Blood Culture-Aerobic No organisms No growth Previo us (test code = 98779-6) isolated prelim inary verified result was Culture [...] Culture-Anaerobic isolated preliminar y (test code = 22421-4) verifi ed result was Culture In Progress [...] CDT Lab Interpretation Normal (test code = 64757-8) [facility] GLUCOSE (AUTOMATED)2022-02-20 18:40:11 Test Item Value Reference Range Interpretation Comments POCT GLU (test code = 4655465440) 168 mg/dL 70-110 H Lab Interpretation (test code = Abnormal 60879-3) [facility] GLUCOSE (AUTOMATED)2022-02-20 18:40:11 Test Item Value Reference Range Interpretation Comments POCT GLU (test code = 6532290760) 168 mg/dL 70-110 H Lab Interpretation (test code = Abnormal 82890-2) [facility] GLUCOSE (AUTOMATED)2022-02-20 14:46:14 Test Item Value Reference Range Interpretation Comments POCT GLU (test code = 2213401021) 235 mg/dL 70-110 H Lab Interpretation (test code = Abnormal 56978-7) [facility]-20 14:46:14 Test Item Value Reference Range Interpretation Comments POCT GLU (test code = 9668829179) 235 mg/dL 70-110 H Lab Interpretation (test code = Abnormal 23755-1) [facility] METABOLIC PANEL (NA, K, CL, CO2, GLUCOSE, BUN, CREATININE, CA)2022-02-20 02:03:45 Test Item Value Reference Range Interpretation Comments NA (test code = 131 mmol/L 135-145 L 8411577957) K (test code = 4.9 mmol/L 3.5-5.0 8338559982) CL (test code = 102 mmol/L 98-108 2489033912) CO2 TOTAL (test code = 25 mmol/L 23-31 0571864973) AGAP (test code = 2-16 0464576499) BUN (test code = 52 mg/dL 7-23 H 4677112587) GLUCOSE (test code = 143 mg/dL 70-110 H 8516317157) CREATININE (test code = 1.40 mg/dL 0.60-1.25 H 7122243992) CALCIUM (test code = 8.3 mg/dL 8.6-10.6 L 8528347329) eGFR (test code = mL/min/1.73m2 3119120334) JUAN (test code = JUAN) Association of [...] tests). Lab Interpretation Abnormal (test code = 04755-2) [facility] METABOLIC PANEL (NA, K, CL, CO2, GLUCOSE, BUN, CREATININE, CA)2022-02-20 02:03:45 Test Item Value Reference Range Interpretation Comments NA (test code = 131 mmol/L 135-145 L 6847447182) K (test code = 4.9 mmol/L 3.5-5.0 0048154311) CL (test code = 102 mmol/L 98-108 9262888597) CO2 TOTAL (test code = 25 mmol/L 23-31 5912023114) AGAP (test code = 2-16 4151025733) BUN (test code = 52 mg/dL 7-23 H 2624430368) GLUCOSE (test code = 143 mg/dL 70-110 H 4966630573) CREATININE (test code = 1.40 mg/dL 0.60-1.25 H 6877030081) CALCIUM (test code = 8.3 mg/dL 8.6-10.6 L 4084549724) eGFR (test code = mL/min/1.73m2 4159166827) JUAN (test code = JUAN) Association of [...] tests). Lab Interpretation Abnormal (test code = 95593-9) [facility] GLUCOSE (AUTOMATED)2022-02-20 01:02:55 Test Item Value Reference Range Interpretation Comments POCT GLU (test code = 153 mg/dL 70-110 H Notifi ed Provider [id number]) Lab Interpretation (test Abnormal code = 17216-6) [facility] GLUCOSE (AUTOMATED)2022-02-20 01:02:55 Test Item Value Reference Range Interpretation Comments POCT GLU (test code = 153 mg/dL 70-110 H Notifi ed Provider [id number]) Lab Interpretation (test Abnormal code = 72756-9) [facility] GLUCOSE (AUTOMATED)2022-02-19 22:29:08 Test Item Value Reference Range Interpretation Comments POCT GLU (test code = 0225026508) 137 mg/dL 70-110 H Lab Interpretation (test code = Abnormal 52911-3) [facility] GLUCOSE (AUTOMATED)2022-02-19 22:29:08 Test Item Value Reference Range Interpretation Comments POCT GLU (test code = 6621303194) 137 mg/dL 70-110 H Lab Interpretation (test code = Abnormal 65349-1) [facility] GLUCOSE (AUTOMATED)2022-02-19 16:28:48 Test Item Value Reference Range Interpretation Comments POCT GLU (test code = 2566426346) 200 mg/dL 70-110 H Lab Interpretation (test code = Abnormal 08213-5) [facility] GLUCOSE (AUTOMATED)2022-02-19 16:28:48 Test Item Value Reference Range Interpretation Comments POCT GLU (test code = 6963834200) 200 mg/dL 70-110 H Lab Interpretation (test code = Abnormal 95842-7) [facility] GLUCOSE (AUTOMATED)2022-02-19 13:19:05 Test Item Value Reference Range Interpretation Comments POCT GLU (test code = 6336994279) 152 mg/dL 70-110 H Lab Interpretation (test code = Abnormal 97679-3) [facility] GLUCOSE (AUTOMATED)2022-02-19 13:19:05 Test Item Value Reference Range Interpretation Comments POCT GLU (test code = 4843504333) 152 mg/dL 70-110 H Lab Interpretation (test code = Abnormal 54812-6) [facility] GLUCOSE (AUTOMATED)2022-02-19 01:15:20 Test Item Value Reference Range Interpretation Comments POCT GLU (test code = 215 mg/dL 70-110 H Notifi ed Provider [id number]) Lab Interpretation (test Abnormal code = 21201-8) [facility] GLUCOSE (AUTOMATED)2022-02-19 01:15:20 Test Item Value Reference Range Interpretation Comments POCT GLU (test code = 215 mg/dL 70-110 H Notifi ed Provider [id number]) Lab Interpretation (test Abnormal code = 80619-5) [facility] GLUCOSE (AUTOMATED)2022-02-18 21:59:14 Test Item Value Reference Range Interpretation Comments POCT GLU (test code = 2325246846) 171 mg/dL 70-110 H Lab Interpretation (test code = Abnormal 54479-9) [facility] GLUCOSE (AUTOMATED)2022-02-18 21:59:14 Test Item Value Reference Range Interpretation Comments POCT GLU (test code = 3073600445) 171 mg/dL 70-110 H Lab Interpretation (test code = Abnormal 00163-5) [facility] 20:40:46 Test Item Value Reference Interpretation Comments Range Procalcitonin (test 0.15 ng/mL See_Comment H [Automa josh code = 9222256949) message] The system which generated this result [...] lung abscess/empyema. For further information please refer to:[email or web address] [email or web address] p Lab Interpretation Abnormal (test code = 45158-6) [facility]2022-08-25 20:40:46 Test Item Value Reference Interpretation Comments Range Procalcitonin (test 0.15 ng/mL See_Comment H [Automa josh code = 6024439936) message] The system which generated this result [...] lung abscess/empyema. For further information please refer to:[email or web address] p Lab Interpretation Abnormal (test code = 81180-8) [facility] GLUCOSE (AUTOMATED)2022-02-18 17:32:13 Test Item Value Reference Range Interpretation Comments POCT GLU (test code = 7521788939) 129 mg/dL 70-110 H Lab Interpretation (test code = Abnormal 98802-4) [facility] GLUCOSE (AUTOMATED)2022-02-18 17:32:13 Test Item Value Reference Range Interpretation Comments POCT GLU (test code = 5709889576) 129 mg/dL 70-110 H Lab Interpretation (test code = Abnormal 92406-3) [facility] GLUCOSE (AUTOMATED)2022-02-18 12:59:31 Test Item Value Reference Range Interpretation Comments POCT GLU (test code = 5311523743) 89 mg/dL 70-110 Lab Interpretation (test code = Normal 87025-2) [facility]2022-02-18 12:59:31 Test Item Value Reference Range Interpretation Comments POCT GLU (test code = 2060914776) 89 mg/dL 70-110 Lab Interpretation (test code = Normal 55092-5) [facility] METABOLIC PANEL (NA, K, CL, CO2, GLUCOSE, BUN, CREATININE, CA)2022-02-18 09:38:02 Test Item Value Reference Range Interpretation Comments NA (test code = 133 mmol/L 135-145 L 0768544797) K (test code = 4.5 mmol/L 3.5-5.0 8853642558) CL (test code = 106 mmol/L 98-108 9786074239) CO2 TOTAL (test code = 23 mmol/L 23-31 9390031727) AGAP (test code = 2-16 4898341329) BUN (test code = 51 mg/dL 7-23 H 9981428553) GLUCOSE (test code = 81 mg/dL 70-110 3890880120) CREATININE (test code = 1.49 mg/dL 0.60-1.25 H 6825711218) CALCIUM (test code = 8.1 mg/dL 8.6-10.6 L 2746653454) eGFR (test code = mL/min/1.73m2 8104038806) JUAN (test code = JUAN) Association of [...] tests). Lab Interpretation Abnormal (test code = 64966-7) [facility] METABOLIC PANEL (NA, K, CL, CO2, GLUCOSE, BUN, CREATININE, CA)2022-02-18 09:38:02 Test Item Value Reference Range Interpretation Comments NA (test code = 133 mmol/L 135-145 L 2763412949) K (test code = 4.5 mmol/L 3.5-5.0 3938197688) CL (test code = 106 mmol/L 98-108 1588664608) CO2 TOTAL (test code = 23 mmol/L 23-31 8269022852) AGAP (test code = 2-16 5193773283) BUN (test code = 51 mg/dL 7-23 H 9657563738) GLUCOSE (test code = 81 mg/dL 70-110 7691980283) CREATININE (test code = 1.49 mg/dL 0.60-1.25 H 3118057475) CALCIUM (test code = 8.1 mg/dL 8.6-10.6 L 8845982531) eGFR (test code = mL/min/1.73m2 2830116584) JUAN (test code = JUAN) Association of [...] tests). Lab Interpretation Abnormal (test code = 20412-1) [facility] WITH [id number] 09:17:24 Test Item Value Reference Range Interpretation [...] RDW-SD (test code = 47.7 fL 38.5-51.6 15878-7) RDW-CV (test code = 14.3 % 12.1-15.4 788-0) PLT (test code = See_Comment [Automated 777-3) message] The sy stem which generated this result transmitted reference range : 150 - 328 10*3/ ?L. The reference r maxi was not used to interpret this result as normal/abnormal . MPV (test code = 10.0 fL 9.8-13.0 52773-7) NRBC/100 WBC (test See_Comment [Automat ed code = 0374950093) message] The system which generated this result transmitted reference range : 0.0 - 10.0 /100 WBCs. The refer ence range was not u sed to interpret th is result as normal/abnormal . NRBC x10^3 (test code See_Comment [Auto mated = 4889999324) message] The s ystem which generated this result transmitted reference range : 10*3/?L. The reference range was not used to interpret this result as normal/abnormal . GRAN MAT (NEUT) % 55.8 % (test code = 770-8) IMM GRAN % (test code 4.10 % = 7804491958) LYMPH % (test code = 30.1 % 736-9) MONO % (test code = 7.1 % 5905-5) EOS % (test code = 2.7 % 713-8) BASO % (test code = 0.2 % 706-2) GRAN MAT x10^3(ANC) 5.15 10*3/uL 1.99-6.95 (test code = 2436912091) IMM GRAN x10^3 (test 0.38 10*3/uL 0.00-0.06 H code = 6713081984) LYMPH x10^3 (test code 2.78 10*3/uL 1.09-3.23 = 731-0) MONO x10^3 (test code 0.66 10*3/uL 0.36-1.02 = 742-7) EOS x10^3 (test code = 0.25 10*3/uL 0.06-0.53 711-2) BASO x10^3 (test code 0.01-0.09 = 704-7) TOXIC CHANGES (test Present A code = 803-7) Lab Interpretation Abnormal (test code = 86926-4) [facility] WITH [id number] 09:17:24 Test Item Value Reference Range Interpretation [...] RDW-SD (test code = 47.7 fL 38.5-51.6 75080-2) RDW-CV (test code = 14.3 % 12.1-15.4 788-0) PLT (test code = See_Comment [Automated 777-3) message] The sy stem which generated this result transmitted reference range : 150 - 328 10*3/ ?L. The reference r maxi was not used to interpret this result as normal/abnormal . MPV (test code = 10.0 fL 9.8-13.0 45852-1) NRBC/100 WBC (test See_Comment [Automat ed code = 4698666885) message] The system which generated this result transmitted reference range : 0.0 - 10.0 /100 WBCs. The refer ence range was not u sed to interpret th is result as normal/abnormal . NRBC x10^3 (test code See_Comment [Auto mated = 6888117029) message] The s ystem which generated this result transmitted reference range : 10*3/?L. The reference range was not used to interpret this result as normal/abnormal . GRAN MAT (NEUT) % 55.8 % (test code = 770-8) IMM GRAN % (test code 4.10 % = 8637126307) LYMPH % (test code = 30.1 % 736-9) MONO % (test code = 7.1 % 5905-5) EOS % (test code = 2.7 % 713-8) BASO % (test code = 0.2 % 706-2) GRAN MAT x10^3(ANC) 5.15 10*3/uL 1.99-6.95 (test code = 8672102983) IMM GRAN x10^3 (test 0.38 10*3/uL 0.00-0.06 H code = 3690121866) LYMPH x10^3 (test code 2.78 10*3/uL 1.09-3.23 = 731-0) MONO x10^3 (test code 0.66 10*3/uL 0.36-1.02 = 742-7) EOS x10^3 (test code = 0.25 10*3/uL 0.06-0.53 711-2) BASO x10^3 (test code 0.01-0.09 = 704-7) TOXIC CHANGES (test Present A code = 803-7) Lab Interpretation Abnormal (test code = 64029-5) [facility] GLUCOSE (AUTOMATED)2022-02-18 01:16:25 Test Item Value Reference Range Interpretation Comments POCT GLU (test code = 9658032579) 170 mg/dL 70-110 H Lab Interpretation (test code = Abnormal 40435-7) [facility] GLUCOSE (AUTOMATED)2022-02-18 01:16:25 Test Item Value Reference Range Interpretation Comments POCT GLU (test code = 0017216107) 170 mg/dL 70-110 H Lab Interpretation (test code = Abnormal 49283-3) [facility] GLUCOSE (AUTOMATED)2022-02-17 21:45:32 Test Item Value Reference Range Interpretation Comments POCT GLU (test code = 3460548842) 117 mg/dL 70-110 H Lab Interpretation (test code = Abnormal 16433-0) [facility] GLUCOSE (AUTOMATED)2022-02-17 21:45:32 Test Item Value Reference Range Interpretation Comments POCT GLU (test code = 5804087983) 117 mg/dL 70-110 H Lab Interpretation (test code = Abnormal 06552-8) [place] [id number] 14:10:58 Test Item Value Reference Range Interpretation Comments APTT Patient (test code See_Comment H [Au tomated message] = 3173-2) The system Spritz generated this result transmitted ref erence range: 26 - 36 Seconds. The reference range was not used to int erpret this result as normal/abnormal . Lab Interpretation (test Abnormal code = 55618-5) [place] [id number] 14:10:58 Test Item Value Reference Range Interpretation Comments APTT Patient (test code See_Comment H [Au tomated message] = 3173-2) The system Spritz generated this result transmitted ref erence range: 26 - 36 Seconds. The reference range was not used to int erpret this result as normal/abnormal . Lab Interpretation (test Abnormal code = 78541-7) [facility] GLUCOSE (AUTOMATED)2022-02-17 13:01:31 Test Item Value Reference Range Interpretation Comments POCT GLU (test code = 5660436305) 83 mg/dL 70-110 Lab Interpretation (test code = Normal 52821-3) [facility] GLUCOSE (AUTOMATED)2022-02-17 13:01:31 Test Item Value Reference Range Interpretation Comments POCT GLU (test code = 6089280643) 83 mg/dL 70-110 Lab Interpretation (test code = Normal 25370-1) [facility] WITH [id number] 09:49:28 Test Item Value Reference Range Interpretation [...] RDW-SD (test code = 48.0 fL 38.5-51.6 41290-5) RDW-CV (test code = 14.4 % 12.1-15.4 788-0) PLT (test code = See_Comment [Automated 777-3) message] The sy stem which generated this result transmitted reference range : 150 - 328 10*3/ ?L. The reference r maxi was not used to interpret this result as normal/abnormal . MPV (test code = 10.1 fL 9.8-13.0 86437-1) NRBC/100 WBC (test See_Comment [Automat ed code = 0060025592) message] The system which generated this result transmitted reference range : 0.0 - 10.0 /100 WBCs. The refer ence range was not u sed to interpret th is result as normal/abnormal . NRBC x10^3 (test code See_Comment [Auto mated = 6525931109) message] The s ystem which generated this result transmitted reference range : 10*3/?L. The reference range was not used to interpret this result as normal/abnormal . SEG % (test code = 60 % 33-76 04590-8) MYELO % (test code = 5 % See_Comment H [Autom ated 96765-7) message] The sy stem which generated this result transmitted reference range : <=0. The refere nce range was not u sed to interpret th is result as normal/abnormal . LYMPH % (test code = 17 % 14-54 82267-4) LG GRAN LYMPH % (test 9 % See_Comment H [Auto mated code = 58388-3) message] The system which generated this result transmitted reference range : <=0. The refere nce range was not u sed to interpret th is result as normal/abnormal . MONO % (test code = 7 % 0-4 H 72565-7) EOS % (test code = 2 % 0-3 13269-5) ANC (test code = 6.32 10*3/uL 1.99-6.95 753-4) TOXIC CHANGES (test Present A code = 803-7) Lab Interpretation Abnormal (test code = 92538-2) [facility] WITH [id number] 09:49:28 Test Item Value Reference Range Interpretation [...] RDW-SD (test code = 48.0 fL 38.5-51.6 03352-6) RDW-CV (test code = 14.4 % 12.1-15.4 788-0) PLT (test code = See_Comment [Automated 777-3) message] The sy stem which generated this result transmitted reference range : 150 - 328 10*3/ ?L. The reference r maxi was not used to interpret this result as normal/abnormal . MPV (test code = 10.1 fL 9.8-13.0 09052-8) NRBC/100 WBC (test See_Comment [Automat ed code = 2432816910) message] The system which generated this result transmitted reference range : 0.0 - 10.0 /100 WBCs. The refer ence range was not u sed to interpret th is result as normal/abnormal . NRBC x10^3 (test code See_Comment [Auto mated = 3479774398) message] The s ystem which generated this result transmitted reference range : 10*3/?L. The reference range was not used to interpret this result as normal/abnormal . SEG % (test code = 60 % 33-76 96170-0) MYELO % (test code = 5 % See_Comment H [Autom ated 97888-9) message] The sy stem which generated this result transmitted reference range : <=0. The refere nce range was not u sed to interpret th is result as normal/abnormal . LYMPH % (test code = 17 % 14-54 70968-4) LG GRAN LYMPH % (test 9 % See_Comment H [Auto mated code = 38180-5) message] The system which generated this result transmitted reference range : <=0. The refere nce range was not u sed to interpret th is result as normal/abnormal . MONO % (test code = 7 % 0-4 H 67498-2) EOS % (test code = 2 % 0-3 20320-4) ANC (test code = 6.32 10*3/uL 1.99-6.95 753-4) TOXIC CHANGES (test Present A code = 803-7) Lab Interpretation Abnormal (test code = 17383-0) [facility] METABOLIC PANEL (NA, K, CL, CO2, GLUCOSE, BUN, CREATININE, CA)2022-02-17 09:47:07 Test Item Value Reference Range Interpretation Comments NA (test code = 130 mmol/L 135-145 L 8045317909) K (test code = 4.5 mmol/L 3.5-5.0 5124083974) CL (test code = 103 mmol/L 98-108 1824771563) CO2 TOTAL (test code = 26 mmol/L 23-31 4156185029) AGAP (test code = 2-16 L 1583970336) BUN (test code = 58 mg/dL 7-23 H 5794851781) GLUCOSE (test code = 92 mg/dL 70-110 2455380854) CREATININE (test code = 1.55 mg/dL 0.60-1.25 H 6307027031) CALCIUM (test code = 7.8 mg/dL 8.6-10.6 L 6148447309) eGFR (test code = mL/min/1.73m2 8352608641) JUAN (test code = JUAN) Association of [...] tests). Lab Interpretation Abnormal (test code = 25828-8) [facility] 09[facility]07 Test Item Value Reference Range Interpretation Comments MAGNESIUM (test code = 0774476920) 2.2 mg/dL 1.7-2.4 Lab Interpretation (test code = Normal 30424-0) [facility] (NA, K, CL, CO2, GLUCOSE, BUN, CREATININE, CA)2022-02-17 09:47:07 Test Item Value Reference Range Interpretation Comments NA (test code = 130 mmol/L 135-145 L 2948754598) K (test code = 4.5 mmol/L 3.5-5.0 2203940436) CL (test code = 103 mmol/L 98-108 0266190755) CO2 TOTAL (test code = 26 mmol/L 23-31 4477708008) AGAP (test code = 2-16 L 7390895128) BUN (test code = 58 mg/dL 7-23 H 3542082853) GLUCOSE (test code = 92 mg/dL 70-110 1913554951) CREATININE (test code = 1.55 mg/dL 0.60-1.25 H 8049978652) CALCIUM (test code = 7.8 mg/dL 8.6-10.6 L 4444776837) eGFR (test code = mL/min/1.73m2 9807365379) JUAN (test code = JUAN) Association of [...] tests). Lab Interpretation Abnormal (test code = 20244-2) [facility] Test Item Value Reference Range Interpretation Comments MAGNESIUM (test code = 3754317406) 2.2 mg/dL 1.7-2.4 Lab Interpretation (test code = Normal 37708-7) [facility] METABOLIC PANEL (NA, K, CL, CO2, GLUCOSE, BUN, CREATININE, CA)2022-02-17 01:31:26 Test Item Value Reference Range Interpretation Comments NA (test code = 128 mmol/L 135-145 L 2874111879) K (test code = 4.7 mmol/L 3.5-5.0 4830104632) CL (test code = 100 mmol/L 98-108 9048410649) CO2 TOTAL (test code = 26 mmol/L 23-31 5877902931) AGAP (test code = 2-16 1745501806) BUN (test code = 61 mg/dL 7-23 H 5748252379) GLUCOSE (test code = 129 mg/dL 70-110 H 5529638694) CREATININE (test code = 1.73 mg/dL 0.60-1.25 H 9682117808) CALCIUM (test code = 7.8 mg/dL 8.6-10.6 L 0146287203) eGFR (test code = mL/min/1.73m2 0299847611) JUAN (test code = JUAN) Association of [...] tests). Lab Interpretation Abnormal (test code = 52573-5) [facility] METABOLIC PANEL (NA, K, CL, CO2, GLUCOSE, BUN, CREATININE, CA)2022-02-17 01:31:26 Test Item Value Reference Range Interpretation Comments NA (test code = 128 mmol/L 135-145 L 4493564918) K (test code = 4.7 mmol/L 3.5-5.0 5591659619) CL (test code = 100 mmol/L 98-108 6149034515) CO2 TOTAL (test code = 26 mmol/L 23-31 8289854678) AGAP (test code = 2-16 5145202253) BUN (test code = 61 mg/dL 7-23 H 3351983813) GLUCOSE (test code = 129 mg/dL 70-110 H 5615118761) CREATININE (test code = 1.73 mg/dL 0.60-1.25 H 6682085385) CALCIUM (test code = 7.8 mg/dL 8.6-10.6 L 6665131769) eGFR (test code = mL/min/1.73m2 4578546982) JUAN (test code = JUAN) Association of [...] tests). Lab Interpretation Abnormal (test code = 08954-1) [facility] [id number] 01:27:27 Test Item Value Reference Range Interpretation Comments APTT Patient (test code See_Comment H [Au tomated message] = 3173-2) The system Spritz generated this result transmitted ref erence range: 26 - 36 Seconds. The reference range was not used to int erpret this result as normal/abnormal . Lab Interpretation (test Abnormal code = 24305-8) [facility] [id number] 01:27:27 Test Item Value Reference Range Interpretation Comments APTT Patient (test code See_Comment H [Au tomated message] = 3173-2) The system Spritz generated this result transmitted ref erence range: 26 - 36 Seconds. The reference range was not used to int erpret this result as normal/abnormal . Lab Interpretation (test Abnormal code = 59866-3) [facility] GLUCOSE (AUTOMATED)2022-02-17 01:02:53 Test Item Value Reference Range Interpretation Comments POCT GLU (test code = 8229812879) 130 mg/dL 70-110 H Lab Interpretation (test code = Abnormal 48075-6) [facility] GLUCOSE (AUTOMATED)2022-02-17 01:02:53 Test Item Value Reference Range Interpretation Comments POCT GLU (test code = 5010932285) 130 mg/dL 70-110 H Lab Interpretation (test code = Abnormal 67543-5) [facility] GLUCOSE (AUTOMATED)2022-02-16 21:30:00 Test Item Value Reference Range Interpretation Comments POCT GLU (test code = 2898622669) 125 mg/dL 70-110 H Lab Interpretation (test code = Abnormal 07490-2) [facility] GLUCOSE (AUTOMATED)2022-02-16 21:30:00 Test Item Value Reference Range Interpretation Comments POCT GLU (test code = 5418356604) 125 mg/dL 70-110 H Lab Interpretation (test code = Abnormal 16959-2) [facility] [id number] 18:47:50 Test Item Value Reference Interpretation Comments Range TROPONIN I (test 17.600 ng/mL See_Comment H [Automated code = 1919099818) message] The system which generated this result [...] biotin. Lab Interpretation Abnormal (test code = 48227-4) [facility] [id number] 18:47:50 Test Item Value Reference Interpretation Comments Range TROPONIN I (test 17.600 ng/mL See_Comment H [Automated code = 0556709605) message] The system which generated this result [...] biotin. Lab Interpretation Abnormal (test code = 65893-9) [facility] METABOLIC PANEL (NA, K, CL, CO2, GLUCOSE, BUN, CREATININE, CA)2022-02-16 18:35:51 Test Item Value Reference Range Interpretation Comments NA (test code = 129 mmol/L 135-145 L 1987573933) K (test code = 4.8 mmol/L 3.5-5.0 1440072853) CL (test code = 100 mmol/L 98-108 7640846569) CO2 TOTAL (test code = 27 mmol/L 23-31 2558531389) AGAP (test code = 2-16 2961174634) BUN (test code = 62 mg/dL 7-23 H 3078367129) GLUCOSE (test code = 121 mg/dL 70-110 H 2381530641) CREATININE (test code = 1.62 mg/dL 0.60-1.25 H 0724918191) CALCIUM (test code = 8.0 mg/dL 8.6-10.6 L 7091327593) eGFR (test code = mL/min/1.73m2 1845286788) JUAN (test code = JUAN) Association of [...] tests). Lab Interpretation Abnormal (test code = 46366-1) [facility] METABOLIC PANEL (NA, K, CL, CO2, GLUCOSE, BUN, CREATININE, CA)2022-02-16 18:35:51 Test Item Value Reference Range Interpretation Comments NA (test code = 129 mmol/L 135-145 L 1992286608) K (test code = 4.8 mmol/L 3.5-5.0 7680254946) CL (test code = 100 mmol/L 98-108 7086810460) CO2 TOTAL (test code = 27 mmol/L 23-31 8169183739) AGAP (test code = 2-16 3200366668) BUN (test code = 62 mg/dL 7-23 H 5767091188) GLUCOSE (test code = 121 mg/dL 70-110 H 9224530155) CREATININE (test code = 1.62 mg/dL 0.60-1.25 H 6880630444) CALCIUM (test code = 8.0 mg/dL 8.6-10.6 L 2518570826) eGFR (test code = mL/min/1.73m2 2732064684) JUAN (test code = JUAN) Association of [...] tests). Lab Interpretation Abnormal (test code = 92757-7) [facility] GLUCOSE (AUTOMATED)2022-02-16 16:35:47 Test Item Value Reference Range Interpretation Comments POCT GLU (test code = 4674356769) 163 mg/dL 70-110 H Lab Interpretation (test code = Abnormal 98386-5) [facility] GLUCOSE (AUTOMATED)2022-02-16 16:35:47 Test Item Value Reference Range Interpretation Comments POCT GLU (test code = 7937820796) 163 mg/dL 70-110 H Lab Interpretation (test code = Abnormal 24696-4) [facility] (for use with Heparin Infusion)2022-02-16 14:04:01 Test Item Value Reference Range Interpretation Comments APTT Patient (test code See_Comment H [Au tomated message] = 3173-2) The system Spritz generated this result transmitted ref erence range: 26 - 36 Seconds. The reference range was not used to int erpret this result as normal/abnormal . Lab Interpretation (test Abnormal code = 64216-2) [facility] (for use with Heparin Infusion)2022-02-16 14:04:01 Test Item Value Reference Range Interpretation Comments APTT Patient (test code See_Comment H [Au tomated message] = 3173-2) The system Spritz generated this result transmitted ref erence range: 26 - 36 Seconds. The reference range was not used to int erpret this result as normal/abnormal . Lab Interpretation (test Abnormal code = 18846-4) [facility] GLUCOSE (AUTOMATED)2022-02-16 13:18:42 Test Item Value Reference Range Interpretation Comments POCT GLU (test code = 9146759267) 108 mg/dL 70-110 Lab Interpretation (test code = Normal 34558-5) [facility] GLUCOSE (AUTOMATED)2022-02-16 13:18:42 Test Item Value Reference Range Interpretation Comments POCT GLU (test code = 5089712017) 108 mg/dL 70-110 Lab Interpretation (test code = Normal 57324-6) [facility] [id number] 07:40:53 Test Item Value Reference Interpretation Comments Range TROPONIN I (test 27.000 ng/mL See_Comment H [Automated code = 7938227815) message] The system which generated this result [...] biotin. Lab Interpretation Abnormal (test code = 32267-1) [facility] [id number] 07:40:53 Test Item Value Reference Interpretation Comments Range TROPONIN I (test 27.000 ng/mL See_Comment H [Automated code = 9685134020) message] The system which generated this result [...] biotin. Lab Interpretation Abnormal (test code = 59790-2) [facility] METABOLIC PANEL (NA, K, CL, CO2, GLUCOSE, BUN, CREATININE, CA)2022-02-16 07:32:56 Test Item Value Reference Range Interpretation Comments NA (test code = 129 mmol/L 135-145 L 7598683650) K (test code = 4.8 mmol/L 3.5-5.0 1218452109) CL (test code = 99 mmol/L 98-108 4836831253) CO2 TOTAL (test code = 28 mmol/L 23-31 7887996682) AGAP (test code = 2-16 5820072601) BUN (test code = 60 mg/dL 7-23 H 0666393180) GLUCOSE (test code = 124 mg/dL 70-110 H 5617223634) CREATININE (test code = 1.96 mg/dL 0.60-1.25 H 9821133664) CALCIUM (test code = 8.2 mg/dL 8.6-10.6 L 1067677190) eGFR (test code = mL/min/1.73m2 3144762151) JUAN (test code = JUAN) Association of [...] tests). Lab Interpretation Abnormal (test code = 77469-7) [facility] METABOLIC PANEL (NA, K, CL, CO2, GLUCOSE, BUN, CREATININE, CA)2022-02-16 07:32:56 Test Item Value Reference Range Interpretation Comments NA (test code = 129 mmol/L 135-145 L 3691257333) K (test code = 4.8 mmol/L 3.5-5.0 4647860474) CL (test code = 99 mmol/L 98-108 5427187656) CO2 TOTAL (test code = 28 mmol/L 23-31 9257562130) AGAP (test code = 2-16 5606951275) BUN (test code = 60 mg/dL 7-23 H 4115757519) GLUCOSE (test code = 124 mg/dL 70-110 H 8465432045) CREATININE (test code = 1.96 mg/dL 0.60-1.25 H 1048893913) CALCIUM (test code = 8.2 mg/dL 8.6-10.6 L 6233895976) eGFR (test code = mL/min/1.73m2 2111519293) JUAN (test code = JUAN) Association of [...] tests). Lab Interpretation Abnormal (test code = 23281-1) [facility] 07:29:09 Test Item Value Reference Range Interpretation Comments MAGNESIUM (test code = 3268631060) 2.3 mg/dL 1.7-2.4 Lab Interpretation (test code = Normal 52506-1) [facility]22[facility] 07:29:09 Test Item Value Reference Range Interpretation Comments PHOSPHORUS (test code = 9521908551) 3.4 mg/dL 2.5-5.0 Lab Interpretation (test code = Normal 14070-1) [facility] 07:29:09 Test Item Value Reference Range Interpretation Comments MAGNESIUM (test code = 2010769437) 2.3 mg/dL 1.7-2.4 Lab Interpretation (test code = Normal 45637-7) [facility]22[facility]23 07:29:09 Test Item Value Reference Range Interpretation Comments PHOSPHORUS (test code = 4836895671) 3.4 mg/dL 2.5-5.0 Lab Interpretation (test code = Normal 31839-0) [facility] [id number] 07:00:47 Test Item Value Reference Range Interpretation Comments APTT Patient (test code See_Comment H [Au tomated message] = 3173-2) The system Spritz generated this result transmitted ref erence range: 26 - 36 Seconds. The reference range was not used to int erpret this result as normal/abnormal . Lab Interpretation (test Abnormal code = 79897-8) [facility] [id number] 07:00:47 Test Item Value Reference Range Interpretation Comments APTT Patient (test code See_Comment H [Au tomated message] = 3173-2) The system Spritz generated this result transmitted ref erence range: 26 - 36 Seconds. The reference range was not used to int erpret this result as normal/abnormal . Lab Interpretation (test Abnormal code = 19972-1) [facility] [id number] 06:45:45 Test Item Value Reference Range Interpretation [...] RDW-SD (test code = 49.1 fL 38.5-51.6 40840-2) RDW-CV (test code = 14.6 % 12.1-15.4 788-0) PLT (test code = See_Comment [Automated 777-3) message] The system which generated this result transmit josh reference range : 150 - 328 10*3/ ?L. The reference range was not u sed to interpret th is result as normal/abnormal . MPV (test code = 10.0 fL 9.8-13.0 94791-8) NRBC/100 WBC (test See_Comment [Automat ed code = 7306681107) message] The system which generated this result transmit josh reference range : 0.0 - 10.0 /100 WBCs. The reference range was not used to interpret this result as normal/abnormal . NRBC x10^3 (test code See_Comment [Auto mated = 1159010015) message] The system which generated this result transmit josh reference range : 10*3/?L. The reference range was not used to interpret this result as normal/abnormal . GRAN MAT (NEUT) % 71.4 % (test code = 770-8) IMM GRAN % (test code 1.60 % = 3003423278) LYMPH % (test code = 20.8 % 736-9) MONO % (test code = 5.9 % 5905-5) EOS % (test code = 0.2 % 713-8) BASO % (test code = 0.1 % 706-2) GRAN MAT x10^3(ANC) 10.41 10*3/uL 1.99-6.95 H (test code = 7117830806) IMM GRAN x10^3 (test 0.24 10*3/uL 0.00-0.06 H code = 8501186421) LYMPH x10^3 (test code 3.04 10*3/uL 1.09-3.23 = 731-0) MONO x10^3 (test code 0.86 10*3/uL 0.36-1.02 = 742-7) EOS x10^3 (test code = 0.03 10*3/uL 0.06-0.53 L 711-2) BASO x10^3 (test code 0.01-0.09 = 704-7) Lab Interpretation Abnormal (test code = 61845-9) [facility] WITH [id number] 06:45:45 Test Item Value Reference Range Interpretation [...] RDW-SD (test code = 49.1 fL 38.5-51.6 78456-2) RDW-CV (test code = 14.6 % 12.1-15.4 788-0) PLT (test code = See_Comment [Automated 777-3) message] The system which generated this result transmit josh reference range : 150 - 328 10*3/ ?L. The reference range was not u sed to interpret th is result as normal/abnormal . MPV (test code = 10.0 fL 9.8-13.0 63724-5) NRBC/100 WBC (test See_Comment [Automat ed code = 0797023368) message] The system which generated this result transmit josh reference range : 0.0 - 10.0 /100 WBCs. The reference range was not used to interpret this result as normal/abnormal . NRBC x10^3 (test code See_Comment [Auto mated = 4568361910) message] The system which generated this result transmit josh reference range : 10*3/?L. The reference range was not used to interpret this result as normal/abnormal . GRAN MAT (NEUT) % 71.4 % (test code = 770-8) IMM GRAN % (test code 1.60 % = 8116949415) LYMPH % (test code = 20.8 % 736-9) MONO % (test code = 5.9 % 5905-5) EOS % (test code = 0.2 % 713-8) BASO % (test code = 0.1 % 706-2) GRAN MAT x10^3(ANC) 10.41 10*3/uL 1.99-6.95 H (test code = 7118424441) IMM GRAN x10^3 (test 0.24 10*3/uL 0.00-0.06 H code = 0503471245) LYMPH x10^3 (test code 3.04 10*3/uL 1.09-3.23 = 731-0) MONO x10^3 (test code 0.86 10*3/uL 0.36-1.02 = 742-7) EOS x10^3 (test code = 0.03 10*3/uL 0.06-0.53 L 711-2) BASO x10^3 (test code 0.01-0.09 = 704-7) Lab Interpretation Abnormal (test code = 85065-5) [facility]-16 03:38:07 Test Item Value Reference Range Interpretation Comments Height (test code = in 1960564511) Weight (test code = lbs 5762232976) Systolic BP (test code = mmHg 8758646568) Diastolic BP (test code mmHg = 9807422681) Heart Rate (test code = bpm 0741766787) BSA (test code = 2.06 m2 4950711662) MV valve area p 1/2 7.50 cm2 method (test code = 4586205578) MV dec slope (test code 1149.00 cm/s2 = 9056332699) MV P1/2t max carmita (test 114.40 cm/s code = 8165554778) MV Peak E Carmita (test code 114.8 cm/s = 0867678226) MV Prop V (test code = 34.90 cm/s 4411267528) Tapse (test code = 2.20 cm 1618987775) MV E/e' septal (test 10.3 cm/s code = 3220932318) LVOT peak carmita (test code 97.7 cm/s = 4146579582) LVOT mn grad (test code mmHg = 4744427677) AV LVOT peak gradient mmHg (test code = 8645296590) LVOT peak VTI (test code 13.1 cm = 7883472269) LV V1 mean (test code = 62.10 cm/s 0858749565) Aortic valve mean 72.2 cm/s velocity (test code = 3516587270) Ao peak carmita (test code = 108.6 cm/s 4126980746) Ao VTI (test code = 13.7 cm 6094508000) Ao max PG (test code = 4.70 mm[Hg] 8512199397) AV peak gradient (test mmHg code = 9152771326) AV mean gradient (test mmHg code = 2813197736) Aortic HR (test code = BPM 6581525247) LAV(MOD-sp2) (test code 56.20 mL = 2371018108) LVIDD (test code = 5.40 cm 9483118855) IVS (test code = 0.97 cm 8989158178) Interventricular Septum 0.97 cm Diastolic Thickness by 2D (test code = 9237425) LVPWD (test code = 0.90 cm 6188825950) PW (test code = 0.90 cm 0.6-1.5 6911220521) EF(Teich) (test code = 38.40 % 3624263536) LVIDS (test code = 4.40 cm 8446390573) FS (test code = 19 % 0217231491) EF - 2D (test code = 38.40 % 02636549) Radiology Study observation (narrative) (test code = 17727-0) JUAN (test code = JUAN) Formatting of [...] mL of Lumason ultrasound enhancing agent used. [facility] GLUCOSE (AUTOMATED)2022-02-16 01:08:44 Test Item Value Reference Range Interpretation Comments POCT GLU (test code = 3386531432) 167 mg/dL 70-110 H Lab Interpretation (test code = Abnormal 24557-6) [facility] GLUCOSE (AUTOMATED)2022-02-16 01:08:44 Test Item Value Reference Range Interpretation Comments POCT GLU (test code = 8020067682) 167 mg/dL 70-110 H Lab Interpretation (test code = Abnormal 54409-0) [facility] METABOLIC PANEL (NA, K, CL, CO2, GLUCOSE, BUN, CREATININE, CA)2022-02-16 00:36:49 Test Item Value Reference Range Interpretation Comments NA (test code = 128 mmol/L 135-145 L 0903379501) K (test code = 5.9 mmol/L 3.5-5.0 H Slight 1481332973) hemolysis CL (test code = 99 mmol/L 98-108 4934973466) CO2 TOTAL (test code 27 mmol/L 23-31 = 3677059760) AGAP (test code = 2-16 3749853174) BUN (test code = 60 mg/dL 7-23 H Slight 4051578748) hemolysis GLUCOSE (test code = 123 mg/dL 70-110 H 6915738843) CREATININE (test code 2.04 mg/dL 0.60-1.25 H = 4042715459) CALCIUM (test code = 8.2 mg/dL 8.6-10.6 L 0510059830) eGFR (test code = mL/min/1.73m2 0875096829) JUAN (test code = JUAN) Association of [...] tests). Lab Interpretation Abnormal (test code = 52989-2) [facility] METABOLIC PANEL (NA, K, CL, CO2, GLUCOSE, BUN, CREATININE, CA)2022-02-16 00:36:49 Test Item Value Reference Range Interpretation Comments NA (test code = 128 mmol/L 135-145 L 6084143753) K (test code = 5.9 mmol/L 3.5-5.0 H Slight 2891813853) hemolysis CL (test code = 99 mmol/L 98-108 8690337688) CO2 TOTAL (test code 27 mmol/L 23-31 = 7671289986) AGAP (test code = 2-16 2579193028) BUN (test code = 60 mg/dL 7-23 H Slight 2301503739) hemolysis GLUCOSE (test code = 123 mg/dL 70-110 H 7360117863) CREATININE (test code 2.04 mg/dL 0.60-1.25 H = 4593278618) CALCIUM (test code = 8.2 mg/dL 8.6-10.6 L 7229443718) eGFR (test code = mL/min/1.73m2 6037455327) JUAN (test code = JUAN) Association of [...] tests). Lab Interpretation Abnormal (test code = 01789-6) [facility] [id number] 00:35:33 Test Item Value Reference Interpretation Comments Range TROPONIN I (test 29.900 ng/mL See_Comment H [Automated code = 2873732419) message] The system which generated this result [...] biotin. Lab Interpretation Abnormal (test code = 92203-7) [facility] [id number] 00:35:33 Test Item Value Reference Interpretation Comments Range TROPONIN I (test 29.900 ng/mL See_Comment H [Automated code = 8733592906) message] The system which generated this result [...] biotin. Lab Interpretation Abnormal (test code = 11619-2) [facility] 00:23:52 Test Item Value Reference Range Interpretation Comments MAGNESIUM (test code = 7682559262) 2.3 mg/dL 1.7-2.4 Lab Interpretation (test code = Normal 90761-2) [facility] 00:23:52 Test Item Value Reference Range Interpretation Comments PHOSPHORUS (test code = 9332561053) 3.7 mg/dL 2.5-5.0 Lab Interpretation (test code = Normal 07745-3) [facility] 00:23:52 Test Item Value Reference Range Interpretation Comments MAGNESIUM (test code = [id number]) 2.3 mg/dL 1.7-2.4 Lab Interpretation (test code = Normal 33975-1) [facility]52 Test Item Value Reference Range Interpretation Comments PHOSPHORUS (test code = 8082998111) 3.7 mg/dL 2.5-5.0 Lab Interpretation (test code = Normal 21667-5) [facility] (for use with Heparin Infusion)2022-02-16 00:05:05 Test Item Value Reference Range Interpretation Comments APTT Patient (test code See_Comment H [Au tomated message] = 3173-2) The system Spritz generated this result transmitted ref erence range: 26 - 36 Seconds. The reference range was not used to int erpret this result as normal/abnormal . Lab Interpretation (test Abnormal code = 97275-8) [facility] (for use with Heparin Infusion)2022-02-16 00:05:05 Test Item Value Reference Range Interpretation Comments APTT Patient (test code See_Comment H [Au tomated message] = 3173-2) The system Sp[employer] generated this result transmitted ref erence range: 26 - 36 Seconds. The reference range was not used to int erpret this result as normal/abnormal . Lab Interpretation (test Abnormal code = 80155-1) [facility] GLUCOSE (AUTOMATED)2022-02-15 23:08:37 Test Item Value Reference Range Interpretation Comments POCT GLU (test code = 4754692076) 110 mg/dL 70-110 Lab Interpretation (test code = Normal 84384-7) [facility] GLUCOSE (AUTOMATED)2022-02-15 23:08:37 Test Item Value Reference Range Interpretation Comments POCT GLU (test code = 2667524448) 110 mg/dL 70-110 Lab Interpretation (test code = Normal 98936-8) [facility] [id number] 17:40:19 Test Item Value Reference Interpretation Comments Range TROPONIN I (test 40.200 ng/mL See_Comment H [Automated code = 8953662160) message] The system which generated this result [...] biotin. Lab Interpretation Abnormal (test code = 28616-7) [facility] [id number] 17:40:19 Test Item Value Reference Interpretation Comments Range TROPONIN I (test 40.200 ng/mL See_Comment H [Automated code = 3455674960) message] The system which generated this result [...] biotin. Lab Interpretation Abnormal (test code = 74755-5) [facility] 17:33:19 Test Item Value Reference Range Interpretation Comments APTT Patient (test code = See_Comment [ Automated message] 3173-2) The system Spritz generated this result transmitted ref erence range: 26 - 36 Seconds. The re ference range was not u sed to interpret this result as normal/abnor mal. Lab Interpretation (test Normal code = 84029-6) [facility]2022-[facility]-22 17:33:19 Test Item Value Reference Range Interpretation Comments APTT Patient (test code = See_Comment [ Automated message] 3173-2) The system Sp[employer] generated this result transmitted ref erence range: 26 - 36 Seconds. The re ference range was not u sed to interpret this result as normal/abnor mal. Lab Interpretation (test Normal code = 72839-4) [facility]2022-[facility]-22 17:28:41 Test Item Value Reference Range Interpretation Comments MAGNESIUM (test code = 9165671933) 2.4 mg/dL 1.7-2.4 Lab Interpretation (test code = Normal 42631-0) [facility]22-[facility] 17:28:41 Test Item Value Reference Range Interpretation Comments PHOSPHORUS (test code = 5423071290) 3.1 mg/dL 2.5-5.0 Lab Interpretation (test code = Normal 76324-8) [facility] Test Item Value Reference Range Interpretation Comments MAGNESIUM (test code = 7037948004) 2.4 mg/dL 1.7-2.4 Lab Interpretation (test code = Normal 17831-2) [facility]22-[facility]-22 17:28:41 Test Item Value Reference Range Interpretation Comments PHOSPHORUS (test code = 3134443723) 3.1 mg/dL 2.5-5.0 Lab Interpretation (test code = Normal 01570-1) [facility] (NA, K, CL, CO2, GLUCOSE, BUN, CREATININE, CA)2022-02-15 17:28:40 Test Item Value Reference Range Interpretation Comments NA (test code = 131 mmol/L 135-145 L 3666941776) K (test code = 4.4 mmol/L 3.5-5.0 4589002511) CL (test code = 100 mmol/L 98-108 1253855543) CO2 TOTAL (test code = 29 mmol/L 23-31 3097418825) AGAP (test code = 2-16 1984654746) BUN (test code = 56 mg/dL 7-23 H 2355466650) GLUCOSE (test code = 149 mg/dL 70-110 H 8957083841) CREATININE (test code = 1.93 mg/dL 0.60-1.25 H 3902375068) CALCIUM (test code = 8.4 mg/dL 8.6-10.6 L 6283233736) eGFR (test code = mL/min/1.73m2 0478232442) JUAN (test code = JUAN) Association of [...] tests). Lab Interpretation Abnormal (test code = 31300-8) [facility] METABOLIC PANEL (NA, K, CL, CO2, GLUCOSE, BUN, CREATININE, CA)2022-02-15 17:28:40 Test Item Value Reference Range Interpretation Comments NA (test code = 131 mmol/L 135-145 L 5798495135) K (test code = 4.4 mmol/L 3.5-5.0 0292072620) CL (test code = 100 mmol/L 98-108 2542866245) CO2 TOTAL (test code = 29 mmol/L 23-31 3751009182) AGAP (test code = 2-16 2111120433) BUN (test code = 56 mg/dL 7-23 H 9011017394) GLUCOSE (test code = 149 mg/dL 70-110 H 4977008776) CREATININE (test code = 1.93 mg/dL 0.60-1.25 H 6586767403) CALCIUM (test code = 8.4 mg/dL 8.6-10.6 L 9811727159) eGFR (test code = mL/min/1.73m2 0918419238) JUAN (test code = JUAN) Association of [...] tests). Lab Interpretation Abnormal (test code = 61987-5) [facility] GLUCOSE (AUTOMATED)2022-02-15 16:45:01 Test Item Value Reference Range Interpretation Comments POCT GLU (test code = 0906993686) 155 mg/dL 70-110 H Lab Interpretation (test code = Abnormal 51131-3) [facility] GLUCOSE (AUTOMATED)2022-02-15 16:45:01 Test Item Value Reference Range Interpretation Comments POCT GLU (test code = 0180854106) 155 mg/dL 70-110 H Lab Interpretation (test code = Abnormal 13096-1) [facility]AL[facility]ONIN2022-08-22 15:22:46 Test Item Value Reference Interpretation Comments Range Procalcitonin (test 0.29 ng/mL See_Comment H [Automa josh code = 0277045241) message] The system which generated this result [...] lung abscess/empyema. For further information please refer to:[email or web address] p Lab Interpretation Abnormal (test code = 99103-8) [facility]2022-08-22 15:22:46 Test Item Value Reference Interpretation Comments Range Procalcitonin (test 0.29 ng/mL See_Comment H [Automa josh code = 3026656887) message] The system which generated this result [...] lung abscess/empyema. For further information please refer to:[email or web address] p Lab Interpretation Abnormal (test code = 44037-2) [facility]2022-02-15 13:10:03 Test Item Value Reference Range Interpretation Comments POCT GLU (test code = 3173286920) 158 mg/dL 70-110 H Lab Interpretation (test code = Abnormal 96165-1) [facility]2022-02-15 13:10:03 Test Item Value Reference Range Interpretation Comments POCT GLU (test code = 3080799705) 158 mg/dL 70-110 H Lab Interpretation (test code = Abnormal 74808-3) [facility] [id number] 11:33:31 Test Item Value Reference Interpretation Comments Range TROPONIN I (test 44.100 ng/mL See_Comment H [Automated code = 3791023766) message] The system which generated this result [...] biotin. Lab Interpretation Abnormal (test code = 18505-2) [facility] [id number] 11:33:31 Test Item Value Reference Interpretation Comments Range TROPONIN I (test 44.100 ng/mL See_Comment H [Automated code = 6253474995) message] The system which generated this result [...] biotin. Lab Interpretation Abnormal (test code = 20459-9) [facility] WITHOUT [id number] 10:48:10 Test Item Value Reference Range Interpretation Comments WBC (test code = 6690-2) See_Comment H [A utomated message] The system Spritz generated this result transmit josh reference range : 4.20 - 10.70 10*3/?L. The reference range was not used to interpret this result as normal/abnormal . RBC (test code = 789-8) See_Comment L [Au tomated message] The system Sp[employer] generated this result transmit josh reference range [...] 777-3) See_Comment [Au tomated message] The system Sp[employer] generated this result transmit josh reference range : 150 - 328 10*3/?L. The reference range was not used to interpret this result as normal/abnormal . MPV (test code = 9.9 fL 9.8-13.0 18520-3) RDW-CV (test code = 14.6 % 12.1-15.4 788-0) RDW-SD (test code = 48.1 fL 38.5-51.6 92235-5) NRBC x10^3 (test code = See_Comment [Au tomated message] 1585649329) The system Spritz generated this result transmit josh reference range : 10*3/?L. The reference range was not used to interpret this result as normal/abnormal . NRBC/100 WBC (test code See_Comment [Au tomated message] = 7171240943) The system [employer] generated this result transmit josh reference range : 0.0 - 10.0 /100 WBC s. The reference r maxi was not used to interpret this result as normal/abnormal . IPF % (test code = 1970298124) Lab Interpretation (test Abnormal code = 60464-8) [facility] WITHOUT [id number] 10:48:10 Test Item Value Reference Range Interpretation Comments WBC (test code = 6690-2) See_Comment H [A utomated message] The system Sp[employer] generated this result transmit josh reference range : 4.20 - 10.70 10*3/?L. The reference range was not used to interpret this result as normal/abnormal . RBC (test code = 789-8) See_Comment L [Au tomated message] The system Sp[employer] generated this result transmit josh reference range [...] 777-3) See_Comment [Au tomated message] The system [employer] generated this result transmit josh reference range : 150 - 328 10*3/?L. The reference range was not used to interpret this result as normal/abnormal . MPV (test code = 9.9 fL 9.8-13.0 00236-8) RDW-CV (test code = 14.6 % 12.1-15.4 788-0) RDW-SD (test code = 48.1 fL 38.5-51.6 83021-8) NRBC x10^3 (test code = See_Comment [Au tomated message] 7971312655) The system Sp[employer] generated this result transmit josh reference range : 10*3/?L. The reference range was not used to interpret this result as normal/abnormal . NRBC/100 WBC (test code See_Comment [Au tomated message] = 8456476729) The system [employer] generated this result transmit josh reference range : 0.0 - 10.0 /100 WBC s. The reference r maxi was not used to interpret this result as normal/abnormal . IPF % (test code = 1387407333) Lab Interpretation (test Abnormal code = 81990-7) [facility]20[facility] 10:42:52 Test Item Value Reference Range Interpretation Comments MAGNESIUM (test code = 1976812582) 2.5 mg/dL 1.7-2.4 H Lab Interpretation (test code = Abnormal 49850-5) [facility] METABOLIC PANEL (NA, K, CL, CO2, GLUCOSE, BUN, CREATININE, CA)2022-02-15 10:42:52 Test Item Value Reference Range Interpretation Comments NA (test code = 132 mmol/L 135-145 L 0998965476) K (test code = 4.5 mmol/L 3.5-5.0 7151222992) CL (test code = 100 mmol/L 98-108 2406474173) CO2 TOTAL (test code = 29 mmol/L 23-31 1646061151) AGAP (test code = 2-16 1212988879) BUN (test code = 55 mg/dL 7-23 H 6595954190) GLUCOSE (test code = 171 mg/dL 70-110 H 0035812048) CREATININE (test code = 2.00 mg/dL 0.60-1.25 H 1491291771) CALCIUM (test code = 8.4 mg/dL 8.6-10.6 L 4446029274) eGFR (test code = mL/min/1.73m2 2267799897) JUAN (test code = JUAN) Association of [...] tests). Lab Interpretation Abnormal (test code = 84399-1) [facility]2022-[facility] 10:42:52 Test Item Value Reference Range Interpretation Comments MAGNESIUM (test code = 7628395585) 2.5 mg/dL 1.7-2.4 H Lab Interpretation (test code = Abnormal 45390-3) [facility] (NA, K, CL, CO2, GLUCOSE, BUN, CREATININE, CA)2022-02-15 10:42:52 Test Item Value Reference Range Interpretation Comments NA (test code = 132 mmol/L 135-145 L 5044308227) K (test code = 4.5 mmol/L 3.5-5.0 0284842041) CL (test code = 100 mmol/L 98-108 7128462699) CO2 TOTAL (test code = 29 mmol/L 23-31 7672995496) AGAP (test code = 2-16 1242981015) BUN (test code = 55 mg/dL 7-23 H 1538501832) GLUCOSE (test code = 171 mg/dL 70-110 H 9108928570) CREATININE (test code = 2.00 mg/dL 0.60-1.25 H 2163371582) CALCIUM (test code = 8.4 mg/dL 8.6-10.6 L 3457866361) eGFR (test code = mL/min/1.73m2 3956146299) JUAN (test code = JUAN) Association of [...] tests). Lab Interpretation Abnormal (test code = 07250-8) [facility] THRM[facility]AS [id number] 10:39:08 Test Item Value Reference Range Interpretation Comments APTT Patient (test code See_Comment H [Au tomated message] = 3173-2) The system [employer] generated this result transmitted ref erence range: 26 - 36 Seconds. The reference range was not used to int erpret this result as normal/abnormal . Lab Interpretation (test Abnormal code = 46599-6) [facility] [id number] 10:39:08 Test Item Value Reference Range Interpretation Comments APTT Patient (test code See_Comment H [Au tomated message] = 3173-2) The system [employer] generated this result transmitted ref erence range: 26 - 36 Seconds. The reference range was not used to int erpret this result as normal/abnormal . Lab Interpretation (test Abnormal code = 23753-6) [facility] [id number] 04:26:48 Test Item Value Reference Range Interpretation Comments APTT Patient (test code See_Comment H [Au tomated message] = 3173-2) The system [employer] generated this result transmitted ref erence range: 26 - 36 Seconds. The reference range was not used to int erpret this result as normal/abnormal . Lab Interpretation (test Abnormal code = 39553-0) [facility] PARTIAL THRMPLAS [id number] 04:26:48 Test Item Value Reference Range Interpretation Comments APTT Patient (test code See_Comment H [Au tomated message] = 3173-2) The system [employer] generated this result transmitted ref erence range: 26 - 36 Seconds. The reference range was not used to int erpret this result as normal/abnormal . Lab Interpretation (test Abnormal code = 83447-3) [facility] GLUCOSE (AUTOMATED)2022-02-15 02:38:04 Test Item Value Reference Range Interpretation Comments POCT GLU (test code = 6539914359) 170 mg/dL 70-110 H Lab Interpretation (test code = Abnormal 59581-0) [facility] GLUCOSE (AUTOMATED)2022-02-15 02:38:04 Test Item Value Reference Range Interpretation Comments POCT GLU (test code = 0202901274) 170 mg/dL 70-110 H Lab Interpretation (test code = Abnormal 28452-1) [facility] [id number] 01:26:24 Test Item Value Reference Interpretation Comments Range TROPONIN I (test 13.300 ng/mL See_Comment H [Automated code = 3508848042) message] The system which generated this result [...] biotin. Lab Interpretation Abnormal (test code = 30065-2) [facility] [id number] 01:26:24 Test Item Value Reference Interpretation Comments Range TROPONIN I (test 13.300 ng/mL See_Comment H [Automated code = 2971921760) message] The system which generated this result [...] biotin. Lab Interpretation Abnormal (test code = 00877-5) [facility] (NA, K, CL, CO2, GLUCOSE, BUN, CREATININE, CA)2022-02-15 01:14:22 Test Item Value Reference Range Interpretation Comments NA (test code = 134 mmol/L 135-145 L 3334127419) K (test code = 4.6 mmol/L 3.5-5.0 2458249373) CL (test code = 99 mmol/L 98-108 4809865472) CO2 TOTAL (test code = 26 mmol/L 23-31 6797439634) AGAP (test code = 2-16 4295422549) BUN (test code = 54 mg/dL 7-23 H 2927512364) GLUCOSE (test code = 190 mg/dL 70-110 H 5166497401) CREATININE (test code = 2.13 mg/dL 0.60-1.25 H 3333724335) CALCIUM (test code = 8.8 mg/dL 8.6-10.6 6549844263) eGFR (test code = mL/min/1.73m2 0159619852) JUAN (test code = JUAN) Association of [...] tests). Lab Interpretation Abnormal (test code = 93554-9) [facility] (NA, K, CL, CO2, GLUCOSE, BUN, CREATININE, CA)2022-02-15 01:14:22 Test Item Value Reference Range Interpretation Comments NA (test code = 134 mmol/L 135-145 L 3560020005) K (test code = 4.6 mmol/L 3.5-5.0 9786583679) CL (test code = 99 mmol/L 98-108 2827237642) CO2 TOTAL (test code = 26 mmol/L 23-31 1867797659) AGAP (test code = 2-16 5585741099) BUN (test code = 54 mg/dL 7-23 H 5250591478) GLUCOSE (test code = 190 mg/dL 70-110 H 0950442294) CREATININE (test code = 2.13 mg/dL 0.60-1.25 H 1874565846) CALCIUM (test code = 8.8 mg/dL 8.6-10.6 4500348726) eGFR (test code = mL/min/1.73m2 4015946828) JUAN (test code = JUNA) Association of Glomerular Filtration Rate (GFR) and [...] tests). Lab Interpretation Abnormal (test code = 51791-6) [facility] Whole [id number] 00:58:27 Test Item Value Reference Range Interpretation Comments LACTIC ACID (test code = 4.00 mmol/L 0.50-2.20 H 5389289315) Lab Interpretation (test code = Abnormal 04294-2) [facility] Whole [id number] 00:58:27 Test Item Value Reference Range Interpretation Comments LACTIC ACID (test code = 4.00 mmol/L 0.50-2.20 H 7208514725) Lab Interpretation (test code = Abnormal 64182-0) [facility]lands[facility] [id number] 07:00:32 Test Item Value Reference Range Interpretation Comments CULTURE (BEAKER) (test No growth in 5 days code = 1095) BLOOD [id number] 07:00:32 Test Item Value Reference Range Interpretation Comments CULTURE (BEAKER) (test No growth in 5 days code = 1095) POC-Glucose [id number] 16:01:13 Test Item Value Reference Range Interpretation Comments POC-Glucose Meter (test 136 mg/dL 70-110 H : [facility] [address] [place] [address]: Manager Creative/Techni [place] ID = [id number] for Castaneda, Martina cherry Lab Interpretation (test Abnormal code = 91648-0) [facility] [id number] 16:01:13 Test Item Value Reference Range Interpretation Comments POC-Glucose Meter (test 136 mg/dL 70-110 H : [facility] = [facility] [address] [place] [address]: Manager Creative/Techni [place] ID = [id number] for Catsaneda, Martina cherry Lab Interpretation (test Abnormal code = 98056-7) [facility] [id number] 16:01:13 Test Item Value Reference Range Interpretation Comments POC-Glucose Meter (test 136 mg/dL 70-110 H : [facility]) [address] [place] [address]: Manager Creative/Techni [place] ID = [id number] for Castaneda, Martina cherry Lab Interpretation (test Abnormal code = 52637-9) [facility] [id number] 16:01:13 Test Item Value Reference Range Interpretation Comments POC-Glucose Meter (test 136 mg/dL 70-110 H : TE STED AT [facility] code = 1538) [address] [address]: Manager Creative/Techni [place] ID = [id number] for Castaneda, Martina cherry Lab Interpretation (test Abnormal code = 79262-6) [facility] [id number] 16:01:13 Test Item Value Reference Range Interpretation Comments POC-Glucose Meter (test 136 mg/dL 70-110 H : TE STED AT [facility] code = 1538) [address] [place] [address]: Manager Creative/Techni [place] ID = [id number] for Castaneda, Martina cherry Lab Interpretation (test Abnormal code = 36467-7) [facility] [id number] 16:01:13 Test Item Value Reference Range Interpretation Comments POC-GLUCOSE METER 136 mg/dL 70-110 H : TESTED A T [facility] [address] (BEAKER) (test code [address], = 1538) [place] [id number]: Manager Creative/Techni [place] ID = [id number] for Cerv antes, Crystal POCT-GLUCOSE [id number] 11:30:14 Test Item Value Reference Range Interpretation Comments POC-GLUCOSE METER 112 mg/dL 70-110 H : TESTED A T [address] [address] (BEAKER) (test code [address], = 1538) [place] [address]: Manager Creative/Techni [place] ID = [id number] for Cerv antes, Crystal POCT-GLUCOSE [id number] 06:45:43 Test Item Value Reference Range Interpretation Comments POC-GLUCOSE METER 150 mg/dL 70-110 H : TESTED A T [address] [address] (BEAKER) (test code [address], = 1538) [place] [address]: Manager Creative/Techni [place] ID = [id number] for Taina Poe [id number] 06:05:04 Test Item Value Reference Range Interpretation Comments MAGNESIUM (BEAKER) (test code = 2.2 mg/dL 1.5-3.0 627) Manager Creative ID - [id number] ID - [id number] ID - [id number] ID - [id number] METABOLIC [id number] 06:04:06 Test Item Value Reference Range Interpretation [...] 1092) DATA TO CALCULA TE ESTIMATED GFR. Manager Creative ID - [id number] ID - [id number] ID - [id number] ID - [id number] ID - [id number] ID - [id number] ID - [id number] ID - [id number] ID - [id number] ID - [id number] W/PLT COUNT & AUTO DIFFERENTIAL 2021-11-12 05:53:41 [...] PERCENT (BEAKER) (test code = 2801) POCT-GLUCOSE [id number] 21:50:33 Test Item Value Reference Range Interpretation Comments POC-GLUCOSE METER 173 mg/dL 70-110 H : TESTED A T [facility] [address] (BEAKER) (test code [address], = 1538) [facility] [address]: Manager Creative/Techni [place] ID = [id number] for Taina Poe POCT-GLUCOSE [id number] 16:45:23 Test Item Value Reference Range Interpretation Comments POC-GLUCOSE METER 134 mg/dL 70-110 H : TESTED A T [facility] [address] (BEAKER) (test code [address], = 1538) [place] [address]: Manager Creative/Techni [place] ID = [id number] for Dapr emont, Heather POCT-GLUCOSE [id number] 11:45:21 Test Item Value Reference Range Interpretation Comments POC-GLUCOSE METER 125 mg/dL 70-110 H : TESTED A T [address] [address] (BEAKER) (test code [address], = 1538) [place] [address]: Manager Creative/Techni [place] ID = [id number] for Dapr emont, Heather Sputum Culture + Gram [id number] 08:54:21 Test Item Value Reference Range Interpretation Comments Result (test code = 4+ Normal respiratory 6463-4) luis eduardo present Gram Stain Result 3+ Mixed luis eduardo (test code = 1123) [facility] [id number] 08:54:21 Test Item Value Reference Range Interpretation Comments Result (test code = 4+ Normal respiratory 6463-4) luis eduardo present Gram Stain Result 3+ Mixed luis eduardo (test code = 1123) [facility] [id number] 08:54:21 Test Item Value Reference Range Interpretation Comments Result (test code = 4+ Normal respiratory 6463-4) luis eduardo present Gram Stain Result 3+ Mixed luis eduardo (test code = 1123) [facility] Gram [id number] 08:54:21 Test Item Value Reference Range Interpretation Comments Result (test code = 4+ Normal respiratory 6463-4) luis eduardo present Gram Stain Result 3+ Mixed luis eduardo (test code = 1123) [facility] Gram [id number] 08:54:21 Test Item Value Reference Range Interpretation Comments Result (test code = 4+ Normal respiratory 6463-4) luis eduardo present Gram Stain Result 3+ Mixed luis eduardo (test code = 1123) [facility] GRAM [id number] 08:54:21 Test Item Value Reference Range Interpretation Comments CULTURE (BEAKER) 4+ Normal respiratory (test code = 1095) luis eduardo present GRAM STAIN RESULT 1+ White blood cells (BEAKER) (test code = seen 1123) GRAM STAIN RESULT 1+ epithelial cells (BEAKER) (test code = 46428) GRAM STAIN RESULT 3+ Mixed luis eduardo (BEAKER) (test code = 72515) RAD, CHEST, 1 VIEW, NON [id number] 07:33:00Reason for exam:->[facility] [facility] : 1950 Sex: MFINAL REPORT CHEST AP PORTABLE SEMIERECT Comparison exam: 11/09/2021 History provided: Pneumonia Heart size normal. Chronic pleural thickening at the right base. Lungs free of acute disease and vascularity normal. Signed: Carlos Navarro MDReport Verified Date/Time: 11/11/2021 07:33:28 Reading Location: [facility] Diagnostic Imaging Reading Room [place] [address] 1310.12 POCT-GLUCOSE [id number] 06:54:14 Test Item Value Reference Range Interpretation Comments POC-GLUCOSE METER 133 mg/dL 70-110 H : [facility] (BEAKER) (test code [address], = 1538) [facility] [place] [address] 478: Manager Creative/Techni [place] ID = [id number] for Taina Poe [id number] 04:53:42 Test Item Value Reference Range Interpretation Comments MAGNESIUM (BEAKER) (test code = 2.3 mg/dL 1.5-3.0 627) Manager Creative ID - [id number] ID - [id number] ID - [id number] ID - [id number] BASIC METABOLIC [id number] 04:52:53 Test Item Value Reference Range Interpretation [...] 1092) DATA TO CALCULA TE ESTIMATED GFR. Manager Creative ID - [id number] ID - [id number] ID - [id number] ID - [id number] ID - [id number] ID - [id number] ID - tlfn73Ozxjwhvc ID - kcrl44Wkpewbbs ID - [id number] ID - [id number] W/PLT COUNT & AUTO [id number] 04:28:30 Test Item Value Reference Range Interpretation [...] 2D Echo W/Doppler(CW/PW/Color)2021-11-11 00:37:05Ejection FractionSLE [facility] W/Doppler(CW/PW/Color)2021-11-11 00:37:05Ejection FractionSLE ECHO [facility] Echo W/Doppler(CW/PW/Color) 2021-11-11 00:37:05Ejection FractionSLE [facility]CHO [facility] Echo W/Doppler(CW/PW/Color)2021-11-11 00:37:05Ejection FractionSLE [facility]CHO [facility] Echo W/Doppler(CW/PW/Color)2021-11-11 00:37:05Ejection FractionSLEH ECHO HEARTLAB MKCKESSON [facility] [id number] 20:59:54 Test Item Value Reference Range Interpretation Comments POC-GLUCOSE METER 148 mg/dL 70-110 H : TESTED A T [facility] 1317 (BEAKER) (test code [address], = 1538) [place] [address] 478: Manager Creative/Techni brook[place] ID = [id number] for Taina Poe POCT-GLUCOSE [id number] 15:51:00 Test Item Value Reference Range Interpretation Comments POC-GLUCOSE METER 156 mg/dL 70-110 H : TESTED A T [facility] [address] (BEAKER) (test code [address], = 1538) [place] [address] 478: Manager Creative/Techni brooklyn ID = [id number] for Shazia Scott POCT-GLUCOSE [id number] 11:44:26 Test Item Value Reference Range Interpretation Comments POC-GLUCOSE METER 139 mg/dL 70-110 H : TESTED A T [facility] [address]17 (BEAKER) (test code [address], = 1538) [place] [address] 478: Manager Creative/Techni brook[place] ID = [id number] for Antwan jaime Crystal BASIC METABOLIC [id number] 07:34:29 Test Item Value Reference Range Interpretation [...] 1092) DATA TO CALCULA TE ESTIMATED GFR. Manager Creative ID - DSENSONOperator ID - DSENSONOperator ID [...] (test code = 18 U/L 5-50 347) Manager Creative ID - DSENSONOperator ID - DSENSONOperator ID - DSENSONOperator ID - DSENSONOperator ID - DSENSONOperator ID - DSENSONOperator ID - DSENSONOperator ID - DSENSONOperator ID - DSENSONOperator ID - DSENSONCBC W/PLT COUNT & AUTO [id number] 07:19:24 Test Item Value Reference Range Interpretation [...] PERCENT (BEAKER) (test code = 2801) POCT-GLUCOSE [id number] 07:05:35 Test Item Value Reference Range Interpretation Comments POC-GLUCOSE METER 129 mg/dL 70-110 H : TESTED A T [facility] [address] (BEAKER) (test code [address], = 1538) [place] [address] 478: Manager Creative/Techni brooklyn ID = [id number] for Ruth Grossman POCT-GLUCOSE [id number] 22:17:06 Test Item Value Reference Range Interpretation Comments POC-GLUCOSE METER 135 mg/dL 70-110 H : TESTED A T [facility] [address] (BEAKER) (test code [address], = 1538) [place] [address]: Manager Creative/Techni brooklyn ID = [id number] for Ruth Grossman POCT-GLUCOSE [id number] 16:21:48 Test Item Value Reference Range Interpretation Comments POC-GLUCOSE METER 178 mg/dL 70-110 H : Notified RN/MD: TESTED (BEAKER) (test code AT [facility] [address] = 1538) [place] [address]: Manager Creative/Techni brooklyn ID = [id number] for Alee Calderon HEPATITIS PANEL, [id number] 14:58:49 Test Item Value Reference Range Interpretation Comments HEPATITIS A IGM ANTIBODY (BEAKER) Nonreactive Nonreactive (test code = 498) HEPATITIS B CORE IGM ANTIBODY Nonreactive Nonreactive (BEAKER) (test code = 645) HEPATITIS C ANTIBODY (BEAKER) Nonreactive Nonreactive (test code = 367) HEPATITIS B SURFACE ANTIGEN (2) Nonreactive Nonreactive (BEAKER) (test code = 2585) Manager Creative ID - DBOperator ID - DBPOCT-GLUCOSE BPVEA2464-04-01 12:30:38 Test Item Value Reference Range Interpretation Comments POC-GLUCOSE METER 184 mg/dL 70-110 H : [facility] RN[facility]MD: [facility] ([facility] AT [facility] [address] = 1538) [place] [address]: Manager Creative/Techni brooklyn ID = [id number] for Francisco Javier anya Lorita VENOUS DOPPLER LEGS, [id number] 10:54:00Reason for exam:->DVT [facility] : 1950 Sex: [...] Verified Date/Time: 11/09/2021 10:54:12 Reading Location: [facility] Radiology Reading Room RAD, CHEST, 1 VIEW, NON [id number] 09:00:00 Reason for exam:->PNAShould this be performed at the bedside?->Yes [facility] : 1950 Sex: [...] ThackerMDReport Verified Date/Time: 11/09/2021 09:00:23 Reading Location: [facility] Radiology Reading Room POCT-GLUCOSE [id number] 07:33:54 Test Item Value Reference Range Interpretation Comments POC-GLUCOSE METER 156 mg/dL 70-110 H : Notified RN/MD: TESTED (BEAKER) (test code AT [facility] [address] = 1538) [place] [address]: Manager Creative/Techni brooklyn ID = [id number] for Alec Bush [id number] 05:00:02 Test Item Value Reference Range Interpretation Comments PARTIAL THROMBOPLASTIN 111.6 seconds 23.0-35.0 H Berna l Information TIME (BEAKER) (test (Auto Ou tput) code = 760) HIV-1 ANTIGEN WITH HIV-1/2 [id number] 04:53:13 Test Item Value Reference Range Interpretation Comments HIV-1 ANTIGEN WITH HIV 1\\T\\2 Nonreactive Nonreactive ANTIBODY (2) (BEAKER) (test code = 2586) Manager Creative ID - [id number] METABOLIC [id number] 04:38:36 Test Item Value Reference Range Interpretation [...] 1092) DATA TO CALCULA TE ESTIMATED GFR. Manager Creative ID - [id number] ID - [id number] ID - [id number] ID - [id number] ID - CEGEIGNRC056Sklqrnfd ID - ZLPLZUEGK578Wodcjpxf ID - [id number] ID - OTJGVWMSB348Jimdnfos ID - [id number] ID - [id number] FUNCTION [id number] 04:36:24 Test Item Value Reference Range Interpretation [...] (test code = 22 U/L 5-50 347) Manager Creative ID - [id number] ID - [id number] ID - [id number] ID - MLAFDCOSI820Evntwxao ID - [id number] ID - [id number] ID - [id number] ID - FODPWYLYO317Ilbeojfe ID - [id number] ID - FZTQGLYAL448RDWYSXWSOG [id number] 04:30:27 Test Item Value Reference Range Interpretation Comments HEMOGLOBIN A1C (BEAKER) (test code = 5.8 % 4.3-6.1 368) Manager Creative ID - [id number] W/PLT COUNT & AUTO [id number] 04:17:15 Test Item Value Reference Range Interpretation [...] PERCENT (BEAKER) (test code = 2801) TROPONIN [id number] 01:16:05 Test Item Value Reference Range Interpretation [...] failure, acidosis, acute neurological disease, and persistent tachyarrhythmia.Manager Creative ID - [id number]-LOHIJPC [id number] 20:56:12 Test Item Value Reference Range Interpretation Comments POC-GLUCOSE METER 169 mg/dL 70-110 H : Notified RN/MD: TESTED (BEAKER) (test code AT [address] PO[address] = 1538) [place] [address]: Manager Creative/Techni brooklyn ID = [id number] for Dottie Collins [id number] 20:43:27 Test Item Value Reference Range Interpretation Comments PARTIAL THROMBOPLASTIN 43.3 seconds 23.0-35.0 H Final Information TIME (BEAKER) (test (Auto Ou tput) code = 760) [id number] 17:13:58 Test Item Value Reference Range Interpretation Comments GLUCOSE RANDOM (BEAKER) (test code 247 mg/dL 70-110 H = 652) Manager Creative ID - DSENSONTROPONIN [id number] 17:03:16 Test Item Value Reference Range Interpretation [...] failure, acidosis, acute neurological disease, and persistent tachyarrhythmia.Manager Creative ID - DSENSONLegionella antigen, [id number] 14:05:17 Test Item Value Reference Range Interpretation Comments Legionella Urine Negative - see Negative for L. Antigen (test code comment pneumophi la = 03142-9) serogroup 1 ant igen, suggesting no r ecent or current infe ction with this serog roup. Legionellosis c annot be ruled out si nce other serogroup s and species may cau se disease. [facility] HospitalLegionella antigen, [id number] 14:05:17 Test Item Value Reference Range Interpretation Comments Legionella Urine Negative - see Negative for L. Antigen (test code comment pneumophi la = 45867-0) serogroup 1 ant igen, suggesting no r ecent or current infe ction with this serog roup. Legionellosis c annot be ruled out si nce other serogroup s and species may cau se disease. [facility] HospitalLegionella antigen, [id number] 14:05:17 Test Item Value Reference Range Interpretation Comments Legionella Urine Negative - see Negative for L. Antigen (test code comment pneumophi la = 67743-1) serogroup 1 ant igen, suggesting no r ecent or current infe ction with this serog roup. Legionellosis c annot be ruled out si nce other serogroup s and species may cau se disease. [facility] HospitalLegionella antigen, [id number] 14:05:17 Test Item Value Reference Range Interpretation Comments Legionella Urine Negative - see Negative for L. Antigen (test code comment pneumophi la = 32002-2) serogroup 1 ant igen, suggesting no r ecent or current infe ction with this serog roup. Legionellosis c annot be ruled out si nce other serogroup s and species may cau se disease. [facility] HospitalLegionella antigen, [id number] 14:05:17 Test Item Value Reference Range Interpretation Comments Legionella Urine Negative - see Negative for L. Antigen (test code comment pneumophi la = 31451-2) serogroup 1 ant igen, suggesting no r ecent or current infe ction with this serog roup. Legionellosis c annot be ruled out si nce other serogroup s and species may cau se disease. [facility] HospitalLEGIONELLA ANTIGEN, [id number] 14:05:17 Test Item Value Reference Range Interpretation Comments L. PNEUMOPHILA Negative - see Negative fo r L. SEROGP 1 UR AG comment pneumophila (BEAKER) (test code serogrou p 1 antigen, = 1156) suggesting no r ecent or current infe ction with this serog roup. Legionellosis c annot be ruled out si nce other serogroup s and species may cau se disease. U/S, RENAL, [id number] 14:05:00Reason for exam:->elevated creatine [facility] : 1950 Sex: [...] renal ultrasound. No hydronephrosis Signed: Cindy Saucedo [facility] Verified Date/Time: 11/08/2021 14:05:00 Reading Location: [facility] C013Y CT Body Reading Room Strep pneumoniae [id number] 14:04:46 Test Item Value Reference Range Interpretation Comments Strep pneumoniae Presumptive negative Presumptive Antigen (test code = [place] [address]-7) pneumonia - see pneumococcal comment pneumonia - [...] test. Lab Interpretation Normal (test code = 34552-1) [facility] [id number] 14:04:46 Test Item Value Reference Range Interpretation Comments Strep pneumoniae Presumptive negative Presumptive Antigen (test code = [place] [address]-3) pneumonia - see pneumococcal comment pneumonia - [...] test. Lab Interpretation Normal (test code = 58219-5) [facility] [id number] 14:04:46 Test Item Value Reference Range Interpretation Comments Strep pneumoniae Presumptive negative Presumptive Antigen (test code = [place] [address]-3) pneumonia - see pneumococcal comment pneumonia - [...] test. Lab Interpretation Normal (test code = 56744-6) [facility] [id number] 14:04:46 Test Item Value Reference Range Interpretation Comments Strep pneumoniae Presumptive negative Presumptive Antigen (test code = [place] [address]-3) pneumonia - see pneumococcal comment pneumonia - [...] test. Lab Interpretation Normal (test code = 51378-3) [facility] [id number] 14:04:46 Test Item Value Reference Range Interpretation Comments Strep pneumoniae Presumptive negative Presumptive Antigen (test code = [place] [address]-3) pneumonia - see pneumococcal comment pneumonia - [...] test. Lab Interpretation Normal (test code = 50357-4) [facility] CenterTREP PNEUMONIAE [id number] 14:04:46 Test Item Value Reference Range Interpretation [...] the detection limit of the test. TROPONIN [id number] 12:03:41 Test Item Value Reference Range Interpretation [...] failure, acidosis, acute neurological disease, and persistent tachyarrhythmia.Manager Creative ID - DSENSONBASIC METABOLIC [id number] 11:54:31 Test Item Value Reference Range Interpretation [...] 1092) DATA TO CALCULA TE ESTIMATED GFR. Manager Creative ID - DSENSONOperator ID - DSENSONOperator ID - DSENSONOperator ID - DSENSONOperator ID - DSENSONOperator ID - DSENSONOperator ID - DSENSONOperator ID - DSENSONOperator ID - DSENSONOperator ID - DSENSONOperator ID - DSENSONOperator ID - DSENSONOperator ID - [id number] 11:45:04 Test Item Value Reference Range Interpretation Comments PARTIAL THROMBOPLASTIN 44.4 seconds 23.0-35.0 H Final Information TIME (BEAKER) (test (Auto Ou tput) code = 760) POCT-GLUCOSE [id number] 11:43:30 Test Item Value Reference Range Interpretation Comments POC-GLUCOSE METER 141 mg/dL 70-110 H : Notified RN/MD: TESTED (BEAKER) (test code AT [facility] [address] = 1538) [facility] [address] Manager Creative/Techni [place] ID = [id number] for Francisco Javier Alec joyner PUL PERF IMAGING, [id number] 09:49:00Unlisted Reason for Exam - Click Yes and Enter Reason Below->No [facility] : 1950 Sex: MFINAL REPORT PROCEDURE: LUNG SCAN - perfusion only CPT CODE: 20058 INDICATION: Elevated D-dimer PROTOCOL: 5.8 mCi of [...] Verified Date/Time: 11/08/2021 09:49:42 CT, CHEST, WITHOUT [id number] 09:47:00Unlisted Reason for Exam - Click Yes and Enter Reason Below->No [facility] : 1950 Sex: MFINAL [...] exclude superimposed infection. Signed: Carly Smitheport Verified Date /Time: 11/08/2021 09:47:14 RAD, CHEST, 1 VIEW, NON [id number] 08:47:00Reason for exam:->ETT placementShould this be performed at the bedside?->Yes [facility] : 1950 Sex: [...] Ou tput) code = 760) LACTIC ACID, [id number] 05:34:16 Test Item Value Reference Range Interpretation Comments LACTATE BLOOD 1.89 mmol/L See_Comment [Automated me ssage] VENOUS (2) (BEAKER) The syst em which (test code = 2872) generated this result transmitted ref erence range: 0.50-<2. 00. The reference range was not used to interpr et this result as normal/abnormal . Manager Creative ID - LITOOperator ID - LITOOperator ID - LITOOperator ID - ROSALBA [id number] 05:31:10 Test Item Value Reference Range Interpretation Comments PROCALCITONIN (BEAKER) (test code 0.15 ng/mL <0.05 H = 3036) SEPSIS RISK (ng/mL)Low: 0.05-0.50Intermediate: 0.51-2.00High: >=2.01 Urinalysis with Microscopic If [id number] 05:13:27 Test Item Value Reference Range Interpretation Comments Color, UA (test code = 5778-6) Yellow Clarity, UA (test code = 5767-9) Clear Specific [place], UA (test code = 1.015 1.001-1.035 5811-5) pH, UA (test code = 5803-2) 5.0 5.0-8.0 Protein, UA (test code = 31266-7) Negative Negative Glucose, UA (test code = 365) Negative Negative Ketones, UA (test code = 2514-8) Negative Negative Bilirubin, UA (test code = 49400-5) Negative Negative Blood, UA (test code = 11784-1) Small Negative A Nitrite, UA (test code = 5802-4) Negative Negative Leukocytes, UA (test code = 5799-2) Negative Negative Urobilinogen, UA (test code = 0.2 mg/dL 0.2-1.0 59245-5) Specimen Source (test code = 2795) Lab Interpretation (test code = Abnormal 68843-1) [facility] If [id number] 05:13:27 Test Item Value Reference Range Interpretation Comments Color, UA (test code = 5778-6) Yellow Clarity, UA (test code = 5767-9) Clear Specific [place], UA (test code = 1.015 1.001-1.035 5811-5) pH, UA (test code = 5803-2) 5.0 5.0-8.0 Protein, UA (test code = 18871-1) Negative Negative Glucose, UA (test code = 365) Negative Negative Ketones, UA (test code = 2514-8) Negative Negative Bilirubin, UA (test code = 96517-9) Negative Negative Blood, UA (test code = 28545-9) Small Negative A Nitrite, UA (test code = 5802-4) Negative Negative Leukocytes, UA (test code = 5799-2) Negative Negative Urobilinogen, UA (test code = 0.2 mg/dL 0.2-1.0 14515-8) Specimen Source (test code = 2795) Lab Interpretation (test code = Abnormal 54168-2) [facility] with Microscopic If [id number] 05:13:27 Test Item Value Reference Range Interpretation Comments Color, UA (test code = 5778-6) Yellow Clarity, UA (test code = 5767-9) Clear Specific [place], UA (test code = 1.015 1.001-1.035 5811-5) pH, UA (test code = 5803-2) 5.0 5.0-8.0 Protein, UA (test code = 44639-1) Negative Negative Glucose, UA (test code = 365) Negative Negative Ketones, UA (test code = 2514-8) Negative Negative Bilirubin, UA (test code = 98221-3) Negative Negative Blood, UA (test code = 37002-4) Small Negative A Nitrite, UA (test code = 5802-4) Negative Negative Leukocytes, UA (test code = 5799-2) Negative Negative Urobilinogen, UA (test code = 0.2 mg/dL 0.2-1.0 97836-3) Specimen Source (test code = 2795) Lab Interpretation (test code = Abnormal 39226-2) [facility] with Microscopic If [id number] 05:13:27 Test Item Value Reference Range Interpretation Comments Color, UA (test code = 5778-6) Yellow Clarity, UA (test code = 5767-9) Clear Specific [place], UA (test code = 1.015 1.001-1.035 5811-5) pH, UA (test code = 5803-2) 5.0 5.0-8.0 Protein, UA (test code = 24924-4) Negative Negative Glucose, UA (test code = 365) Negative Negative Ketones, UA (test code = 2514-8) Negative Negative Bilirubin, UA (test code = 98004-5) Negative Negative Blood, UA (test code = 16107-3) Small Negative A Nitrite, UA (test code = 5802-4) Negative Negative Leukocytes, UA (test code = 5799-2) Negative Negative Urobilinogen, UA (test code = 0.2 mg/dL 0.2-1.0 39797-3) Specimen Source (test code = 2795) Lab Interpretation (test code = Abnormal 71629-6) [facility] with Microscopic If [id number] 05:13:27 Test Item Value Reference Range Interpretation Comments Color, UA (test code = 5778-6) Yellow Clarity, UA (test code = 5767-9) Clear Specific [place], UA (test code = 1.015 1.001-1.035 5811-5) pH, UA (test code = 5803-2) 5.0 5.0-8.0 Protein, UA (test code = 45120-9) Negative Negative Glucose, UA (test code = 365) Negative Negative Ketones, UA (test code = 2514-8) Negative Negative Bilirubin, UA (test code = 78749-2) Negative Negative Blood, UA (test code = 71378-7) Small Negative A Nitrite, UA (test code = 5802-4) Negative Negative Leukocytes, UA (test code = 5799-2) Negative Negative Urobilinogen, UA (test code = 0.2 mg/dL 0.2-1.0 17265-6) Specimen Source (test code = 2795) Lab Interpretation (test code = Abnormal 26670-6) [facility] WITH MICROSCOPIC IF [id number] 05:13:27 Test Item Value Reference Range Interpretation [...] SOURCE(BEAKER) (test code = 2795) Urinalysis Microscopic [id number] 05:13:21 Test Item Value Reference Range Interpretation Comments RBC, UA (test code = <5 See_Comment [Autom ated message] 799-7) The system [employer] generated this result transmitted ref erence range: /HPF. Th e reference range was not used to int erpret this result as normal/abnormal . WBC, UA (test code = None Seen See_Comment [Autom ated message] 70374-4) The system [employer] generated this result transmitted ref erence range: /HPF. Th e reference range was not used to int erpret this result as normal/abnormal . Bacteria, UA (test Occasional code = 24513-3) SQUAMOUS EPITHELIAL None Seen See_Comment [Automa josh message] (test code = 82911-9) The sy stem which generated this result transmitted ref erence range: /HPF. Th e reference range was not used to int erpret this result as normal/abnormal . HYALINE CASTS (test 0-5 See_Comment [Automa josh message] code = 5796-8) The system [employer] generated this result transmitted ref erence range: /LPF. Th e reference range was not used to int erpret this result as normal/abnormal . [facility] Microscopic [id number] 05:13:21 Test Item Value Reference Range Interpretation Comments RBC, UA (test code = <5 See_Comment [Autom ated message] 799-7) The system [employer] generated this result transmitted ref erence range: /HPF. Th e reference range was not used to int erpret this result as normal/abnormal . WBC, UA (test code = None Seen See_Comment [Autom ated message] 91909-8) The system [employer] generated this result transmitted ref erence range: /HPF. Th e reference range was not used to int erpret this result as normal/abnormal . Bacteria, UA (test Occasional code = 56528-9) SQUAMOUS EPITHELIAL None Seen See_Comment [Automa josh message] (test code = 39755-9) The sy stem which generated this result transmitted ref erence range: /HPF. Th e reference range was not used to int erpret this result as normal/abnormal . HYALINE CASTS (test 0-5 See_Comment [Automa josh message] code = 5796-8) The system [employer] generated this result transmitted ref erence range: /LPF. Th e reference range was not used to int erpret this result as normal/abnormal . [facility] Microscopic [id number] 05:13:21 Test Item Value Reference Range Interpretation Comments RBC, UA (test code = <5 See_Comment [Autom ated message] 799-7) The system [employer] generated this result transmitted ref erence range: /HPF. Th e reference range was not used to int erpret this result as normal/abnormal . WBC, UA (test code = None Seen See_Comment [Autom ated message] 98483-5) The system [employer] generated this result transmitted ref erence range: /HPF. Th e reference range was not used to int erpret this result as normal/abnormal . Bacteria, UA (test Occasional code = 68150-9) SQUAMOUS EPITHELIAL None Seen See_Comment [Automa josh message] (test code = 22950-5) The sy stem which generated this result transmitted ref erence range: /HPF. Th e reference range was not used to int erpret this result as normal/abnormal . HYALINE CASTS (test 0-5 See_Comment [Automa josh message] code = 5796-8) The system [employer] generated this result transmitted ref erence range: /LPF. Th e reference range was not used to int erpret this result as normal/abnormal . [facility] Microscopic [id number] 05:13:21 Test Item Value Reference Range Interpretation Comments RBC, UA (test code = <5 See_Comment [Autom ated message] 799-7) The system [employer] generated this result transmitted ref erence range: /HPF. Th e reference range was not used to int erpret this result as normal/abnormal . WBC, UA (test code = None Seen See_Comment [Autom ated message] 12480-4) The system [employer] generated this result transmitted ref erence range: /HPF. Th e reference range was not used to int erpret this result as normal/abnormal . Bacteria, UA (test Occasional code = 05577-9) SQUAMOUS EPITHELIAL None Seen See_Comment [Automa josh message] (test code = 73386-0) The sy stem which generated this result transmitted ref erence range: /HPF. Th e reference range was not used to int erpret this result as normal/abnormal . HYALINE CASTS (test 0-5 See_Comment [Automa josh message] code = 5796-8) The system AwoX generated this result transmitted ref erence range: /LPF. Th e reference range was not used to int erpret this result as normal/abnormal . [facility]opic [id number] 05:13:21 Test Item Value Reference Range Interpretation Comments RBC, UA (test code = <5 See_Comment [Autom ated message] 799-7) The system Spritz generated this result transmitted ref erence range: /HPF. Th e reference range was not used to int erpret this result as normal/abnormal . WBC, UA (test code = None Seen See_Comment [Autom ated message] 79603-3) The system whic h generated this result transmitted ref erence range: /HPF. Th e reference range was not used to int erpret this result as normal/abnormal . Bacteria, UA (test Occasional code = 90885-6) SQUAMOUS EPITHELIAL None Seen See_Comment [Automa josh message] (test code = 02652-5) The sy stem which generated this result transmitted ref erence range: /HPF. Th e reference range was not used to int erpret this result as normal/abnormal . HYALINE CASTS (test 0-5 See_Comment [Automa josh message] code = 5796-8) The system ich generated this result transmitted ref erence range: /LPF. Th e reference range was not used to int erpret this result as normal/abnormal . [facility] [id number] 05:13:21 Test Item Value Reference Range Interpretation Comments RBC UA-MANUAL (BEAKER) (test <5 /HPF code = 1659) WBC UA-MANUAL (BEAKER) (test None Seen /HPF code = 1661) BACTERIA (BEAKER) (test code = Occasional 517) SQUAMOUS EPITHELIAL MANUAL None Seen /HPF (BEAKER) (test code = 1663) HYALINE CASTS MANUAL (BEAKER) 0-5 /LPF (test code = 1665) TROPONIN [id number] 05:01:28 Test Item Value Reference Range Interpretation [...] failure, acidosis, acute neurological disease, and persistent tachyarrhythmia.Manager Creative ID - LITOBASIC METABOLIC PANEL 2021-11-08 05:00:17 [...] 1092) DATA TO CALCULA TE ESTIMATED GFR. Manager Creative ID - LITOOperator ID - LITOOperator ID - LITOOperator ID - LITOOperator ID - LITOOperator ID - LITOOperator ID - LITOOperator ID - LITOOperator ID - LITOOperator ID - LITOB-TYPE NATRIURETIC FACTOR (BNP)2021-11-08 05:00:11 Test Item Value Reference Range Interpretation Comments B-TYPE NATRIURETIC PEPTIDE (BEAKER) 480 pg/mL 0-100 H (test code = 700) Manager Creative ID - LITOCBC W/PLT COUNT & AUTO [id number] 04:56:38 Test Item Value Reference Range Interpretation [...] H PERCENT (BEAKER) (test code = 2801) [id number] 04:53:09 Test Item Value Reference Range Interpretation Comments D-DIMER QUANTITATIVE 5.80 MG/L FEU <0.50 H Final Information (BEAKER) (test code = (Auto Output) 671) REGARDING D-DIMER RESULTS: The 98% NPV (Negative Predictive Value) for DVT/PE exclusion is 0.50 mg/LFEU as suggested by the clinical trial leader and as approved by the FDA.PROTHROMBIN [id number] 04:52:30 Test Item Value Reference Range Interpretation Comments PROTIME (BEAKER) 11.0 seconds 9.3-12.0 Final Infor mation (test code = 759) (Auto Outp ut) INR (BEAKER) (test 1.00 See_Comment Final Inf ormation code = 370) (Auto Output) [Automated mess age] The system Spritz generated this result transmitted ref erence range: <=5.90. The reference range was not used to int erpret this result as normal/abnormal . RECOMMENDED COUMADIN/WARFARIN INR THERAPY RANGESSTANDARD DOSE: 2.0 - 3.0 Includes: PROPHYLAXIS for venous thrombosis, systemic embolization; TREATMENT for venous thrombosis and/or pulmonary embolus.HIGH RISK: Target INR is 2.5-3.5 for patients with mechanical heart valves.HEMOGLOBIN [id number] 04:51:27 Test Item Value Reference Range Interpretation Comments HEMOGLOBIN A1C (BEAKER) (test code = 5.7 % 4.3-6.1 368) Manager Creative ID - LITOHEPATIC FUNCTION [id number] 04:50:07 Test Item Value Reference Range Interpretation [...] (test code = 31 U/L 5-50 347) Manager Creative ID - LITOOperator ID - LITOOperator ID - LITOOperator ID - LITOOperator ID - LITOOperator ID - LITOOperator ID - [id number] 04:49:45 Test Item Value Reference Range Interpretation Comments MAGNESIUM (BEAKER) (test code = 2.8 mg/dL 1.5-3.0 627) Manager Creative ID - LITOOperator ID - LITOOperator ID - LITOOperator ID - ROSALBA [id number] 04:46:46 Test Item Value Reference Range Interpretation Comments PHOSPHORUS (BEAKER) (test code = 4.8 mg/dL 2.5-4.5 H 604) Manager Creative ID - LITOPOCT-GLUCOSE [id number] 04:11:36 Test Item Value Reference Range Interpretation Comments POC-GLUCOSE METER 156 mg/dL 70-110 H : TESTED A T SLSL 1317 (BEVINICIUS) (test code [address], = 1538) [facility] 77 478: Manager Creative/Techni [place] ID = [id number] for Real Lei, ABDOMEN/KUB 1 VIEW [id number] 04:02:00Reason for exam:->NG tube [facility] : 1950 Sex: [...] on 204:02 AMRAD, CHEST, 1 VIEW, NON [id number] 03:57:00Reason for exam:->AHRFShould this be performed at the bedside?->Yes [facility] : 1950 Sex: [...] MDReport Verified Date/Time: 11/08/2021 03:57:41 Blood gas, [id number] 03:54:11 Test Item Value Reference Range Interpretation [...] 75 Lab Interpretation Abnormal (test code = 85578-2) [facility], [id number] 03:54:11 Test Item Value Reference Range Interpretation [...] 75 Lab Interpretation Abnormal (test code = 86392-1) [facility] gas, [id number] 03:54:11 Test Item Value Reference Range Interpretation [...] 75 Lab Interpretation Abnormal (test code = 68203-3) [facility], [id number] 03:54:11 Test Item Value Reference Range Interpretation [...] 75 Lab Interpretation Abnormal (test code = 46711-7) [facility] gas, [id number] 03:54:11 Test Item Value Reference Range Interpretation [...] 75 Lab Interpretation Abnormal (test code = 94979-4) [facility] HospitalBL[facility], [id number] 03:54:11 Test Item Value Reference Range Interpretation [...]
[2022-06-14] MEDS ORDERED: ALBUTEROL 2.5 MG/3 ML NEB SOL ONE (14:08)
[2022-06-14] MEDS ORDERED: IPRATROPIUM BROM 0.5MG/2.5ML ONE (14:08)
[2022-06-14 14:40] LABS: Absolute Lymphocytes (CBC) 1.6 K/uL (0.7-4.9); Hematocrit 39.7 % (39.6-49.0); Lymphocytes % 10.3 % (15.3-44.8); MCV 87.7 fL (80-100); RBC Red Blood Cell Count 4.53 M/uL (4.33-5.43)
--- NOTE | 2022-06-14 15:41 | RAD REPORT ---
EXAM DESCRIPTION: Irais Single View06/14/2022 3:13 pm CLINICAL HISTORY: sob COMPARISON: May 31 FINDINGS: Small to moderate right basilar opacity with small to moderate right pleural effusion Remainder lungs probably are clear. The heart remains enlarged. IMPRESSION: No acute abnormalities displayed
[2022-06-14 16:06] LABS: Potassium 4.3 mmol/L (3.5-5.1)
[2022-06-14 16:12] LABS: Troponin High Sensitivity 210.8 pg/mL (<58.9)
--- NOTE | 2022-06-14 16:23 | ER ---
Nurse's Notes [facility] Name: Gabo Chow Sr Age: 71 yrs Sex: Male : 1950 Arrival Date: 06/14/2022 Time: 13:47 Bed 14 Private MD: Diagnosis: Shortness of breath;Heart failure, unspecified;Elevated Troponin Presentation: 06/14 13:49 Chief complaint: EMS states: "patient states shortness of breath . we gave him a em6 albuterol treatment at 1230. his O2 was 91 we started him on 4 L since that's has HES usually at home. patient has history of COPD. hr was 122.". Coronavirus screen: Client denies travel out of the [place] in the last 14 days. Ebola Screen: Patient negative for fever greater than or equal to 101.5 degrees Fahrenheit, and additional compatible Ebola Virus Disease symptoms. Initial Sepsis Screen: Does the patient meet any 2 criteria? No. Patient's initial sepsis screen is negative. Does the patient have a suspected source of infection? No. Patient's initial sepsis screen is negative. Risk Assessment: Do you want to hurt yourself or someone else? Patient reports no desire to harm self or others. Onset of symptoms was June 14, 2022. 13:49 Acuity: ALLI 3 em6 13:49 Method Of Arrival: EMS: [facility] em6 Triage Assessment: 13:52 General: Appears in no apparent distress. Behavior is cooperative. Respiratory: Onset: em6 The symptoms/episode began/occurred suddenly, the patient has mild shortness of breath. Respiratory: Airway is patent Respiratory effort is even, labored, Respiratory pattern is regular, symmetrical. Historical: - Allergies: 13:52 No Known Allergies; em6 - Home Meds: 13:52 Albuterol Inhl [Active]; amlodipine oral [Active]; Aspirin Oral [Active]; carvedilol em6 Oral [Active]; clopidogrel Oral [Active]; fluticasone [Active]; Lasix Oral [Active]; lisinopril Oral [Active]; - PMHx: 13:52 CHF; COPD; HTN; Hypertension; [place]; Myocardial infarction; em6 - PSHx: 13:52 heart stent; Stented artery; em6 - Immunization history:: Adult Immunizations unknown. - Social history:: Smoking status: Patient denies any tobacco usage or history of. Screenin:48 [facility] ED Fall Risk Assessment (Adult) History of falling in the last 3 months, em6 including since admission No falls in past 3 months (0 pts) Confusion or Disorientation No (0 pts) Intoxicated or Sedated No (0 pts) Impaired Gait No (0 pts) Mobility Assist Device Used No (0 pt) Altered Elimination No (0 pt) Score/Fall Risk Level 0 - 2 = Low Risk Oriented to surroundings, Maintained a safe environment, Educated pt \\T\\ family on fall prevention, incl call for assistance when getting out of bed, Assessed \\T\\ reinforced patient's understanding of fall precautions, Provided non-skid footwear, Hourly rounding (assess needs \\T\\ fall precautionary measures) done, Used ambulatory aids as needed (educated on \\T\\ assisted with), Used gait belt as appropriate. Abuse screen: Denies threats or abuse. Nutritional screening: No deficits noted. Tuberculosis screening: No symptoms or risk factors identified. Fall Risk Total Mead Fall Scale indicates No Risk (0-24 pts). 18:33 Humpty Dumpty Scale Fall Assessment Tool (age< 18yrs) Fall Risk Score/ Level. em6 Assessment: 13:47 General: Appears in no apparent distress. Behavior is cooperative. Pain: Denies pain. em6 Neuro: Level of Consciousness is awake, alert, obeys commands, Oriented to person, place, time, situation. Cardiovascular: Denies chest pain, Heart tones present Patient's skin is warm and dry. Respiratory: Reports shortness of breath cough that is non-productive, Airway is patent Respiratory effort is even, labored, Breath sounds with wheezes bilaterally. GI: Abdomen is non-distended, Bowel sounds present X 4 quads. Abd is soft and non tender X 4 quads. : No signs and/or symptoms were reported regarding the genitourinary system. EENT: No signs and/or symptoms were reported regarding the EENT system. Derm: No signs and/or symptoms reported regarding the dermatologic system. Musculoskeletal: Circulation, motion, and sensation intact. Range of motion: intact in all extremities. 13:47 Cardiovascular: Rhythm is sinus tachycardia. em6 14:50 Reassessment: Patient appears in no apparent distress at this time. No changes from em6 previously documented assessment. Patient and/or family updated on plan of care and expected duration. Pain level reassessed. Patient is alert, oriented x 3, equal unlabored respirations, skin warm/dry/pink. 15:50 Reassessment: Patient appears in no apparent distress at this time. No changes from em6 previously documented assessment. Patient and/or family updated on plan of care and expected duration. Pain level reassessed. Patient is alert, oriented x 3, equal unlabored respirations, skin warm/dry/pink. 17:50 Reassessment: Patient appears in no apparent distress at this time. No changes from em6 previously documented assessment. Patient and/or family updated on plan of care and expected duration. Pain level reassessed. Patient is alert, oriented x 3, equal unlabored respirations, skin warm/dry/pink. 18:26 Reassessment: gave nurse to nurse report to em6 Vital Signs: 13:49 BP 141 / 83; Pulse 110; Resp 24; Temp 98.7; Pulse Ox 99% on 4 lpm NC; Weight 75.75 kg; em6 Height 6 ft. 0 in. (182.88 cm); Pain 0/10; 14:45 BP 142 / 75; Pulse 90; Resp 22; Pulse Ox 100% on 2 lpm NC; em6 15:30 BP 122 / 55; Pulse 92; Resp 20; Pulse Ox 100% on R/A; em6 16:15 BP 137 / 54; Pulse 90; Resp 19; Pulse Ox 100% on R/A; em6 17:45 BP 138 / 77; Pulse 78; Resp 14; Pulse Ox 100% on 2 lpm NC; em6 13:49 Body Mass Index 22.65 (75.75 kg, 182.88 cm) em6 ED Course: 13:47 Patient arrived in ED. em6 13:48 Rober Cordova DO is Attending Physician. ms3 13:51 Triage completed. em6 13:51 Arm band placed on. em6 13:52 Placed in gown. Bed in low position. Call light in reach. Side rails up X 1. Cardiac em6 monitor on. Pulse ox on. NIBP on. Warm blanket given. 14:02 Valerie Higuera, RN is Primary Nurse. em6 14:35 Missed attempt(s): 22 gauge in left antecubital area. em6 14:38 Inserted saline lock: 22 gauge in left antecubital area, using aseptic technique. Blood em6 collected. 15:14 XRAY Chest (1 view) In Process Unspecified. EDMS 16:12 Notified ED physician of a critical lab result(s). troponin level of 210.[address] january cordova. 16:22 Henran Alonzo MD is Hospitalizing Provider. ms3 18:33 No provider procedures requiring assistance completed. Patient admitted, IV remains in em6 place. Administered Medications: 14:34 Drug: Albuterol - atroVENT (ipratropium) (3:1) (2.5 mg - 0.5 mg) 3 ml Route: Nebulizer; em6 15:00 Follow up: Response: No adverse reaction em6 16:41 Drug: Aspirin Chewable Tablet 324 mg Route: PO; em6 17:20 Follow up: Response: No adverse reaction em6 16:41 Drug: SOLU-Medrol (methylPrednisoLONE) 125 mg Route: IVP; Site: left antecubital; em6 17:20 Follow up: Response: No adverse reaction em6 Medication: 18:33 VIS not applicable for this client. em6 Outcome: 16:23 Decision to Hospitalize by Provider. ms3 18:57 Admitted to Med/surg accompanied by tech, via stretcher, room 405, with oxygen, with em6 chart, Report called to harika 18:57 Condition: stable 18:57 Instructed on the need for admit, Demonstrated understanding of instructions. 18:58 Patient left the ED. em6 Signatures: Dispatcher [employer] EDCO Rober Cordova DO DO ms3 Valerie Higuera, RN RN em6
--- NOTE | 2022-06-14 16:23 | EDPHYS ---
Physician Documentation [facility] Name: Gabo Chow Sr Age: 71 yrs Sex: Male : 1950 Arrival Date: 06/14/2022 Time: 13:47 Bed 14 Private MD: ED Physician Rober Burgos HPI: 06/14 15:24 This 71 yrs old Male presents to ER via EMS with complaints of Shortness Of Breath. ms3 15:24 The patient has shortness of breath at rest. Onset: The symptoms/episode began/occurred ms3 2 hour(s) ago. Duration: The symptoms are continuous. The patient's shortness of breath is aggravated by exertion, is alleviated by nebulizer treatment, application of supplemental oxygen. Associated signs and symptoms: Pertinent negatives: chest pain, non-productive cough. Severity of symptoms: At their worst the symptoms were moderate in the emergency department the symptoms are unchanged Pain is currently a 0 / 10. Historical: - Allergies: 13:52 No Known Allergies; em6 - Home Meds: 13:52 Albuterol Inhl [Active]; amlodipine oral [Active]; Aspirin Oral [Active]; carvedilol em6 Oral [Active]; clopidogrel Oral [Active]; fluticasone [Active]; Lasix Oral [Active]; lisinopril Oral [Active]; - PMHx: 13:52 CHF; COPD; HTN; Hypertension; [place]; Myocardial infarction; em6 - PSHx: 13:52 heart stent; Stented artery; em6 - Immunization history:: Adult Immunizations unknown. - Social history:: Smoking status: Patient denies any tobacco usage or history of. ROS: 15:24 Constitutional: Negative for fever, and chills. Neck: Negative for injury, pain, and ms3 swelling, Cardiovascular: Negative for chest pain, and palpitations. 15:24 Skin: Negative for injury, rash, and discoloration. 15:24 Respiratory: Positive for dyspnea on exertion, shortness of breath. 15:24 All other systems are negative. Exam: 15:24 Constitutional: This is a well developed, well nourished patient who is awake, alert, ms3 and in no acute distress. Head/Face: Normocephalic, atraumatic. Neck: Trachea midline, no cervical lymphadenopathy. Supple, full range of motion without nuchal rigidity, or vertebral point tenderness. No Meningismus. Chest/axilla: Normal chest wall appearance and motion. Nontender with no deformity. Cardiovascular: Regular rate and rhythm with a normal S1 and S2. No gallops, murmurs, or rubs. Normal PMI, no JVD. No pulse deficits. Respiratory: Lungs have equal breath sounds bilaterally, clear to auscultation and percussion. No rales, rhonchi or wheezes noted. No increased work of breathing, no retractions or nasal flaring. Abdomen/GI: Soft, non-tender, with normal bowel sounds. No distension or tympany. No guarding or rebound. No evidence of tenderness throughout. Skin: Warm, dry with normal turgor. Normal color with no rashes, no lesions, and no evidence of cellulitis. MS/ Extremity: Pulses equal, no cyanosis. Neurovascular intact. Full, normal range of motion. 15:24 ECG was reviewed by the Attending Physician. ms3 Vital Signs: 13:49 BP 141 / 83; Pulse 110; Resp 24; Temp 98.7; Pulse Ox 99% on 4 lpm NC; Weight 75.75 kg; em6 Height 6 ft. 0 in. (182.88 cm); Pain 0/10; 14:45 BP 142 / 75; Pulse 90; Resp 22; Pulse Ox 100% on 2 lpm NC; em6 15:30 BP 122 / 55; Pulse 92; Resp 20; Pulse Ox 100% on R/A; em6 16:15 BP 137 / 54; Pulse 90; Resp 19; Pulse Ox 100% on R/A; em6 17:45 BP 138 / 77; Pulse 78; Resp 14; Pulse Ox 100% on 2 lpm NC; em6 13:49 Body Mass Index 22.65 (75.75 kg, 182.88 cm) em6 MDM: 13:53 Patient medically screened. ms3 16:34 Data reviewed: vital signs, nurses notes, lab test result(s), EKG, radiologic studies, ms3 plain films, and as a result, I will admit patient. Counseling: I had a detailed discussion with the patient and/or guardian regarding: the historical points, exam findings, and any diagnostic results supporting the discharge/admit diagnosis, lab results, radiology results, the need for further work-up and treatment in the hospital. ED course: Discussed case with the hospitalist, and Dr. Alonzo excepts patient. Discussed plan for admission with patient and his . They understand and agree with plan. All questions were answered.. 06/14 13:55 Order name: Basic Metabolic Panel; Complete Time: 16:13 ms3 06/14 13:55 Order name: CBC with Diff; Complete Time: 16:02 ms3 06/14 13:55 Order name: NT PRO-BNP; Complete Time: 16:13 ms3 06/14 13:55 Order name: Troponin HS; Complete Time: 16:13 ms3 06/14 16:37 Order name: SARS RAPID em1 06/14 16:44 Order name: Troponin High Sensitivity EDMS 06/14 16:44 Order name: Troponin High Sensitivity EDMS 06/14 16:44 Order name: Troponin High Sensitivity EDMS 06/14 16:47 Order name: Hemoglobin A1c EDMS 06/14 16:47 Order name: Lipid Profile EDMS 06/14 16:47 Order name: Magnesium EDMS 06/14 16:47 Order name: Phosphorus EDMS 06/14 16:47 Order name: Urinalysis EDMS 06/14 16:47 Order name: Basic Metabolic Panel EDMS 06/14 13:55 Order name: XRAY Chest (1 view); Complete Time: 16:02 ms3 06/14 13:55 Order name: EKG; Complete Time: 13:56 ms3 06/14 13:55 Order name: Cardiac monitoring; Complete Time: 14:05 ms3 06/14 13:55 Order name: EKG - Nurse/Tech; Complete Time: 14:34 ms3 06/14 13:55 Order name: IV Saline Lock; Complete Time: 14:37 ms3 06/14 13:55 Order name: Labs collected and sent; Complete Time: 14:34 ms3 06/14 13:55 Order name: O2 Per Protocol; Complete Time: 14:05 ms3 06/14 16:47 Order name: Heart Healthy EDMS 06/14 16:47 Order name: Basic Metabolic Panel EDMS 06/14 16:47 Order name: CBC with Automated Diff EDMS 06/14 16:47 Order name: CBC with Automated Diff EDMS 06/14 16:47 Order name: NT PRO-BNP EDMS 06/14 16:47 Order name: NT PRO-BNP EDMS 06/14 13:55 Order name: O2 Sat Monitoring; Complete Time: 14:05 ms3 06/14 14:44 Order name: Labs - recollect needed: green top please; Complete Time: 15:35 em1 EC:24 Rate is 89 beats/min. Rhythm is regular. Left axis deviation noted. AL interval is ms3 normal. Clinical impression: NSR w/ Non-specific ST/T Changes and PVCs. Interpreted by me. Reviewed by me. Administered Medications: 14:34 Drug: Albuterol - atroVENT (ipratropium) (3:1) (2.5 mg - 0.5 mg) 3 ml Route: Nebulizer; em6 15:00 Follow up: Response: No adverse reaction em6 16:41 Drug: Aspirin Chewable Tablet 324 mg Route: PO; em6 17:20 Follow up: Response: No adverse reaction em6 16:41 Drug: SOLU-Medrol (methylPrednisoLONE) 125 mg Route: IVP; Site: left antecubital; em6 17:20 Follow up: Response: No adverse reaction em6 Disposition Summary: 06/14/22 16:23 Hospitalization Ordered Hospitalization Status: Inpatient Admission ms3 Provider: Hernan Alonzo ms3 Location: Telemetry/MedSurg (Inpatient) ms3 Condition: Stable ms3 Problem: new ms3 Symptoms: are unchanged ms3 Bed/Room Type: Standard ms3 Room Assignment: 405(06/14/22 17:59) dw Diagnosis - Shortness of breath ms3 - Heart failure, unspecified ms3 - Elevated Troponin ms3 Forms: - Medication Reconciliation Form ms3 - SBAR form ms3 Signatures: Dispatcher [employer] EDGabriela Ramsey, RN RN Hao Diaz em1 Rober Burgos DO DO ms3 Valerie Higuera RN RN em6 Corrections: (The following items were deleted from the chart) 17:59 16:23 ms3 dw
[2022-06-14] MEDS ORDERED: ASPIRIN 81 MG CHEWABLE TABLET ONE (16:36)
[2022-06-14] MEDS ORDERED: ASPIRIN 81 MG CHEWABLE TABLET PO ONE (16:36)
[2022-06-14] MEDS ORDERED: METHYLPREDNISOLONE 125 MG INJ ONE (16:36)
[2022-06-14] MEDS ORDERED: HYDROCODONE/APAP 5/325 MG TAB PO PRN (16:36)
[2022-06-14] MEDS ORDERED: ACETAMINOPHEN 325 MG TABLET PO PRN (16:36)
--- NOTE | 2022-06-14 16:49 | P.HP ---
Certification for Inpatient Patient admitted to: Inpatient With expected LOS: >2 Midnights Patient will require the following post-hospital care: None Practitioner: I am a practitioner with admitting privileges, knowledge of patient current condition, hospital course, and medical plan of care. Services: Services provided to patient in accordance with Admission requirements found in Title 42 Section 412.3 of the Code of Federal Regulations <BlancaMelvinsonia Larson - Last Filed: 06/15/22 05:19> Patient History Date of Service: 06/14/22 Reason for admission: SOB History of Present Illness: Patient is a 71-year-old male with a past medical history significant for CHF, COPD, hypertension, NC, CAD with stent who presents with complaint of shortness of breath onset this afternoon. Patient reported associated signs and symptoms of cough and headache. Patient denies any other signs and symptoms. Symptoms are aggravated by exertion and relieved mildly by nebulizer treatment and O2 therapy. Patient decided to present to the hospital due to worsening symptoms. - Past Medical/Surgical History Diabetic: No -: HTN -: COPD -: HTN -: CHF -: CKD followed by Dr. Roy -: CAD -: A. fib on chronic anticoagulation -: heart stent -: Heart cath CAD Psychosocial/ Personal History: Patient lives at home with his . - Family History Father -: Heart disease Notes: Heart attack Mother -: Lung disease Notes: COPd - Social History Smoking Status: Former smoker Alcohol use: Yes CD- Drugs: No Caffeine use: Yes Place of Residence: Home <Blake Rios - Last Filed: 06/15/22 05:19> Date of Service: 06/15/22 <Hernan Alonzo - Last Filed: 06/15/22 14:51> Allergies No Known Allergies Allergy (Verified 06/14/22 22:26) Home Medications: Albuterol Sulfate [Albuterol Sulfate Hfa] 1 puff IH DAILY 02/05/22 Aspirin [Aspirin EC] 81 mg PO DAILY 04/05/22 Clopidogrel Bisulfate [Plavix] 75 mg PO DAILY 04/05/22 Metoprolol Tartrate 25 mg PO BID 04/05/22 Vericiguat [Verquvo] 5 mg PO BEDTIME 04/05/22 Apixaban [Eliquis] 5 mg PO BID #60 tab 04/09/22 Fluticasone/Salmeterol [Advair 250-50 Diskus] 1 each IH BID #1 kit 05/13/22 predniSONE [Deltasone*] 10 mg PO BID #10 tab 05/13/22 Furosemide [Lasix] 80 mg PO DAILY 06/14/22 Pantoprazole Sodium [Protonix] 40 mg PO DAILY 06/14/22 Rosuvastatin Calcium [Crestor] 20 mg PO BEDTIME 06/14/22 Review of Systems General: Unremarkable Eyes: Unremarkable ENT: Unremarkable Respiratory: Cough, Shortness of Breath, SOB with Excertion Cardiovascular: Unremarkable Gastrointestinal: Unremarkable Genitourinary: Unremarkable Musculoskeletal: Unremarkable Integumentary: Unremarkable Neurological: Other (DEVLIN) Lymphatics: Unremarkable <Blake Rios - Last Filed: 06/15/22 05:19> Physical Examination - Physical Exam General: Alert, In no apparent distress, Oriented x3, Cooperative HEENT: Atraumatic, PERRLA, Mucous membr. moist/pink, EOMI, Sclerae nonicteric Neck: Supple, 2+ carotid pulse no bruit, No LAD, Without JVD or thyroid abnormality Respiratory: Clear to auscultation bilaterally, Diminished Cardiovascular: No edema, No murmurs, Irregular heart rate/rhythm Capillary refill: <2 Seconds Gastrointestinal: Normal bowel sounds, Non-distended, No tenderness Musculoskeletal: No clubbing, No swelling, No contractures, No tenderness Integumentary: No rashes, No breakdown, No significant lesion, No tenderness/swelling Neurological: Normal speech, Normal tone, Normal affect Lymphatics: No axilla or inguinal lymphadenopathy - Studies Laboratory Data (last 24 hrs) 06/14/22 15:26: Sodium 141, Potassium 4.3, BUN 55 H, Creatinine 2.16 H, Glucose 139 H 06/14/22 14:32: WBC 15.20 H, Hgb 12.8 L, Hct 39.7, Plt Count 288 <Blake Rios - Last Filed: 06/15/22 05:19> - Studies Laboratory Data (last 24 hrs) 06/14/22 15:26: Phosphorus 3.4, Magnesium 2.3, Triglycerides 80, Cholesterol 125, HDL Cholesterol 56, Cholesterol/HDL Ratio 2.23 06/14/22 15:26: Sodium 141, Potassium 4.3, BUN 55 H, Creatinine 2.16 H, Glucose 139 H <Hernan Alonzo - Last Filed: 06/15/22 14:51> Assessment and Plan - Plan --Acute on chronic systolic CHF exacerbation. Patient placed on diuresis with Lasix. Cardiology consulted. Daily weight and strict I/O. Echocardiogram of 10/05/2021 indicates an EF of 42%. Further management per ore roaster. --Elevated troponin. Likely secondary to type II NSTEMI. We will trend troponin levels. Line Driver notified of initial troponin level- 210.8. Further management per ore roaster. Continue Eliquis. --Acute on chronic COPD exacerbation. Continue home medications, neb treatment with albuterol\Atrovent and O2 therapy. --Hyperlipidemia. Continue statin. --Chronic A. fib. Continue Eliquis. --History of NC\CAD. Continue aspirin, Plavix, Eliquis and statin. --Leukocytosis. Likely reactive. Will reassess levels in a.m. --Anemia of chronic disease. H&H stable. We will continue to monitor hemoglobin and transfuse if less than 7.0. --Headache. Continue Tylenol as needed. -- Hypertension. Poorly controlled. Continue home medications. --CKD 3B. Improvement in renal functions compared to levels 2 week ago. We will continue to monitor renal functions. --DVT prophylaxis with Eliquis. Discharge Plan: Home Plan to discharge in: Greater than 2 days - Advance Directives Does patient have a Living Will: No Does patient have a Durable POA for Healthcare: Yes - Code Status/Comfort Care Code Status Assessed: Yes Physician Review: Patient Assessed, Agree with Above Assessment and Plan Critical Care: No <Blake Rios - Last Filed: 06/15/22 05:19> Physician Review: Patient Assessed, Agree with Above Assessment and Plan <Hernan Alonzo - Last Filed: 06/15/22 14:51>
[2022-06-14 17:33] LABS: SARS-CoV-2 Antigen Rapid Res Negative (Negative)
[2022-06-14 18:12] LABS: Magnesium 2.3 mg/dL (1.6-2.4); Phosphorus 3.4 mg/dL (2.5-4.9)
[2022-06-14] MEDS: APIXABAN 5 MG TABLET PO SCH (19:54)
[2022-06-14] MEDS: predniSONE 20 MG TAB PO SCH (19:54)
[2022-06-14] MEDS: METOPROLOL TAR 25 MG TAB PO SCH (19:54)
[2022-06-14] MEDS: FUROSEMIDE 40 MG/4 ML VIAL IV SCH (19:54)
[2022-06-14] MEDS: HOME MED 1 EA UNK (Fluticasone/Salmeterol [Advair 250-50 Diskus] Blst.W.Dev) IH SCH (19:56)
[2022-06-14] MEDS: ALBUTEROL 2.5 MG/3 ML NEB SOL NEB SCH (20:40)
[2022-06-14] MEDS: IPRATROPIUM BROM 0.5MG/2.5ML NEB SCH (20:40)
[2022-06-14] MEDS: VERICIGUAT 2.5 MG PO SCH (21:00)
[2022-06-14 22:13] VITALS: BMI 22.6
[2022-06-15 01:19] LABS: Urine Bacteria <20 /HPF (<20); Urine Bilirubin NEGATIVE (Negative); Urine Blood 2+ (Negative); Urine Clarity Clear (Clear); Urine Color Colorless (Yellow); Urine Glucose NEGATIVE (Negative); Urine Mucus Slight /HPF (None Seen); Urine Protein 1+ (Negative); Urine Urobilinogen Normal (Normal)
[2022-06-15] MEDS: IPRATROPIUM BROM 0.5MG/2.5ML NEB SCH ×4 (02:10→21:25)
[2022-06-15] MEDS: ALBUTEROL 2.5 MG/3 ML NEB SOL NEB SCH ×5 (02:10→21:25)
[2022-06-15 03:58] LABS: Absolute Lymphocytes (CBC) 0.6 K/uL (0.7-4.9); Hematocrit 35.1 % (39.6-49.0); Lymphocytes % 5.9 % (15.3-44.8); MCV 87.3 fL (80-100); MPV 9.1 fL (7.6-11.3); RBC Red Blood Cell Count 4.03 M/uL (4.33-5.43)
[2022-06-15 04:39] LABS: Blood Morphology Comment NOT SEEN (NOT SEEN); Platelet Estimate ADEQ
[2022-06-15] MEDS: PANTOPRAZOLE 40MG TABLET PO SCH (07:42)
[2022-06-15] MEDS: ASPIRIN 81 MG CHEWABLE TABLET PO SCH (07:42)
[2022-06-15] MEDS: METOPROLOL TAR 25 MG TAB PO SCH ×2 (07:42→20:54)
[2022-06-15] MEDS: predniSONE 20 MG TAB PO SCH ×2 (07:42→20:53)
[2022-06-15] MEDS: CLOPIDOGREL 75 MG TABLET PO SCH (07:42)
[2022-06-15] MEDS: APIXABAN 5 MG TABLET PO SCH ×2 (07:42→20:53)
[2022-06-15] MEDS: FUROSEMIDE 40 MG/4 ML VIAL IV SCH (07:42)
[2022-06-15] MEDS: HOME MED 1 EA UNK (Fluticasone/Salmeterol [Advair 250-50 Diskus] Blst.W.Dev) IH SCH ×2 (08:57→20:53)
--- NOTE | 2022-06-15 14:50 | P.PN ---
Subjective Date of Service: 06/15/22 Chief Complaint: SOB No acute events overnight. He reports that his breathing has improved compared to yesterday. He reports persistent dry cough and wheezing. He denies chest pain or palpitations. Review of Systems 10-point ROS is otherwise unremarkable Respiratory: Cough, Dry, Shortness of Breath, Wheezing Physical Examination - Vital Signs Temperature: 98.5 F Blood Pressure: 120/58 Pulse: 64 Respirations: 16 Pulse Ox (%): 97 - Physical Exam General: Alert, In no apparent distress, Oriented x3 HEENT: Normocephalic, Mucous membr. moist/pink, EOMI, Sclerae nonicteric Neck: JVD not distended Respiratory: Diminished, Expiratory wheezes Cardiovascular: No edema, Regular rate/rhythm, Normal S1 S2, No gallops, No rubs, No murmurs Gastrointestinal: Normal bowel sounds, Soft and benign, Non-distended, No tenderness, No rebound, No guarding Musculoskeletal: No clubbing Integumentary: No rashes Neurological: Normal speech, Cranial nerves 3-12 intact, Normal affect - Studies Laboratory Data (last 24 hrs) 06/14/22 15:26: Phosphorus 3.4, Magnesium 2.3, Triglycerides 80, Cholesterol 125, HDL Cholesterol 56, Cholesterol/HDL Ratio 2.23 06/14/22 15:26: Sodium 141, Potassium 4.3, BUN 55 H, Creatinine 2.16 H, Glucose 139 H Assessment And Plan - Plan # Acute Chronic Obstructive Pulmonary Disease Exacerbation # SIRS Criteria (Tachypnea, Tachycardia) likely due to COPD Exacerbation # Suspect Steroid-Induced Leukocytosis # Tobacco Use Disorder - Evaluation thus far: - Physical exam = wheezing throughout - Chest x-ray = "no acute abnormalities displayed." - Plan: - Continue steroids and bronchodilators - Consulted Respiratory Therapy - Supplemental oxygen to maintain SpO2 > 92% - Assess inhaler technique one improved from COPD exacerbation - Tobacco cessation counseling - Home oxygen testing - Encouraged incentive spirometry # Suspect Mild Superimposed Acute on Chronic Diastolic Congestive Heart Failure Exacerbation # Suspect Type II Non-ST Segment Elevation Myocardial Infarction (Demand Ischemia) secondary to above # Coronary Artery Disease # Hypertension # Dyslipidemia - Cardiac catheterization on 02/01/2022 revealed severe coronary artery disease and recommendation at the time was medical management - Cardiology consulted - recommendations appreciated - EKG = pending - Troponin trend = 210.8 -> 532.5 -> 564.8 - Continue home aspirin, rosuvastatin, clopidogrel, metoprolol, furosemide # Chronic Atrial Fibrillation His [id number] = 4 (CHF=1, HTN=1, CAD=1, Age 65-74=1), which warrants anticoagulation. - For rate control: - Continue metoprolol - For anticoagulation: - Continue home apixaban # Chronic Kidney Disease Stage III # Microscopic Hemturia - Creatinine = 2.16 -> 2.17 (near baseline) - Urinalysis = 2+ blood, 11-20 RBCs, 1+ protein - Diuretics as mentioned above - Monitor creatinine and urine output - If worsening, obtain renal ultrasound - Renally dose medications Hernan Alonzo M.D.
--- NOTE | 2022-06-15 15:17 | EKG ---
Test Date: 2022-06-14 Test Time: 14:13:29 Incinerator Operator: JO MEASUREMENT RESULTS: Intervals: Rate: 91 [place]: 142 QRSD: 126 QT: 382 QTc: 469 [place]: P: 77 [place]: 142 QRS: -4 T: 175 INTERPRETIVE STATEMENTS: Sinus rhythm with occasional premature ventricular complexes Left bundle branch block Abnormal ECG Compared to ECG 05/31/2022 22:26:04 Left bundle-branch block now present Myocardial infarct finding no longer present ST (T wave) deviation no longer present Possible ischemia no longer present Electronically Signed On 06-15-22 15:15:16 PEDIATRIC CRITICAL CARE NURSE by Jerardo Hussein
--- NOTE | 2022-06-15 17:10 | CON ---
Date of Consultation: 06/15/2022 Reason For Consultation: Shortness of breath. History Of Present Illness: A 71-year-old male with history of CHF, COPD, hypertension, coronary art katya disease, multiple stents in the past, presented with shortness of breath, started at the day of p resentation the afternoon along with some congestion and cough. Denies having any precise chest pain . No nausea, vomiting, or diarrhea. No dysuria or polyuria. Past Medical History: Hypertension, COPD, CHF, chronic kidney disease, coronary artery disease, atri al fibrillation. Medications: Refer to reconciliation sheet for detailed list. Allergies: NO KNOWN DRUG ALLERGIES. Family History: No premature coronary artery disease or cancer. Social History: He is an ex-smoker. Does not drink or use any drugs. Review of Systems: All systems reviewed and they were negative except what mentioned in HPI. Physical Examination: Vital Signs: Reviewed. Head and Neck: Pupils are equal, reactive to light. Intact eye movements. No JVD. No cervical lym phadenopathy. Neck is supple. Thyroid is not enlarged. Lungs: Decreased breathing sounds with wheezing bilaterally. No accessory muscle use or muscle retr action. Heart: Irregular. No extra sounds. Abdomen: Soft, nontender. Bowel sounds positive. No organomegaly. No masses or hernia. No rigidi ty or rebound. Extremities: No clubbing or cyanosis. Trace edema. Skin: No rash. Neurologic: Alert, awake, oriented x3. No acute focal deficits appreciated. Investigations: Left heart cath on 02/01/2022; patent stent of the mid LAD, RCA was completely occlu ded, but getting collaterals from the LAD and left circumflex and Dr. Turner recommended medical the rapy and at that time on 01/28/2022, his echocardiogram showed normal ejection fraction. His troponi n is peaked at 564. BUN is 36, creatinine is 2.1, and his chest x-ray, no acute abnormalities. Assessment And Recommendations: 1.Acute on chronic diastolic heart failure exacerbation, responded well to Lasix. Continue current management. Monitor BUN, creatinine, electrolytes. 2.Elevated troponin. The patient had diffuse coronary artery disease apparently and Dr. Turner rec ommended medical management at this point. Recommend continue medical management. I will review the films of the coronary angiogram and make further decision accordingly. Continue baby aspirin and fu rther recommendation after reviewing the coronary angiogram that was done back in January. 3.Chronic kidney disease. Consult Nephrology. 4.Atrial fibrillation, rate is controlled. No anticoagulation. Continue current management. SR/MODL Voice ID: [id number] Report ID: [id number]
[2022-06-15] MEDS: ROSUVASTATIN 10 MG TAB PO SCH (20:53)
[2022-06-15] MEDS: VERICIGUAT 2.5 MG PO SCH (20:54)
[2022-06-16] MEDS: ALBUTEROL 2.5 MG/3 ML NEB SOL NEB SCH ×4 (02:55→20:15)
[2022-06-16] MEDS: IPRATROPIUM BROM 0.5MG/2.5ML NEB SCH ×4 (02:55→20:15)
[2022-06-16 04:36] LABS: Magnesium 2.2 mg/dL (1.6-2.4); Potassium 4.8 mmol/L (3.5-5.1)
[2022-06-16] MEDS: PANTOPRAZOLE 40MG TABLET PO SCH (07:52)
[2022-06-16] MEDS: METOPROLOL TAR 25 MG TAB PO SCH ×2 (07:52→20:55)
[2022-06-16] MEDS: ASPIRIN 81 MG CHEWABLE TABLET PO SCH (07:52)
[2022-06-16] MEDS: APIXABAN 5 MG TABLET PO SCH ×2 (07:52→20:55)
[2022-06-16] MEDS: FUROSEMIDE 40 MG TABLET PO SCH (07:53)
[2022-06-16] MEDS: predniSONE 20 MG TAB PO SCH ×2 (07:53→20:56)
[2022-06-16] MEDS: CLOPIDOGREL 75 MG TABLET PO SCH (07:53)
[2022-06-16] MEDS: HOME MED 1 EA UNK (Fluticasone/Salmeterol [Advair 250-50 Diskus] Blst.W.Dev) IH SCH (07:57)
[2022-06-16] MEDS: SALMETEROL IH SCH ×2 (08:24→20:57)
[2022-06-16] MEDS: FLUTICASONE IH SCH ×2 (08:24→20:57)
--- NOTE | 2022-06-16 13:40 | P.PN ---
Subjective Date of Service: 06/16/22 Chief Complaint: SOB No acute events overnight. He reports that his breathing continues to improve daily. This morning, he reports persistent, but mild dry cough and wheezing. He denies chest pain or palpitations. Review of Systems 10-point ROS is otherwise unremarkable Respiratory: Cough, Dry, Shortness of Breath Cardiovascular: Orthopnea Physical Examination - Vital Signs Temperature: 98.3 F Blood Pressure: 135/73 Pulse: 72 Respirations: 16 Pulse Ox (%): 96 Assessment And Plan - Plan - Physical Exam General: Alert, In no apparent distress, Oriented x3 HEENT: Atraumatic, Mucous membr. moist/pink, EOMI, Sclerae nonicteric Neck: JVD not distended Respiratory: Diminished, Faint end-expiratory wheezes Cardiovascular: No edema, Regular rate/rhythm, Normal S1 S2, No gallops, No rubs, No murmurs Gastrointestinal: Normal bowel sounds, Soft and benign, Non-distended, No tenderness, No rebound, No guarding Musculoskeletal: No clubbing Integumentary: No rashes Neurological: Normal speech, Cranial nerves 3-12 intact, Normal affect # Acute Chronic Obstructive Pulmonary Disease Exacerbation # SIRS Criteria (Tachypnea, Tachycardia) likely due to COPD Exacerbation # Suspect Steroid-Induced Leukocytosis # Tobacco Use Disorder - Evaluation thus far: - Initial physical exam = wheezing throughout - Chest x-ray = "no acute abnormalities displayed." - Plan: - Continue steroids and bronchodilators - Consulted Respiratory Therapy - Supplemental oxygen to maintain SpO2 > 92% - Assess inhaler technique one improved from COPD exacerbation - Tobacco cessation counseling - Home oxygen testing - Encouraged incentive spirometry # Suspect Mild Superimposed Acute on Chronic Diastolic Congestive Heart Failure Exacerbation # Suspect Type II Non-ST Segment Elevation Myocardial Infarction (Demand Ischemia) secondary to above # Coronary Artery Disease # Hypertension # Dyslipidemia - Cardiac catheterization on 02/01/2022 revealed severe coronary artery disease and recommendation at the time was medical management - Cardiology consulted - recommendations appreciated - EKG = pending - Troponin trend = 210.8 -> 532.5 -> 564.8 - Continue home aspirin, rosuvastatin, clopidogrel, metoprolol, furosemide # Chronic Atrial Fibrillation His [id number] = 4 (CHF=1, HTN=1, CAD=1, Age 65-74=1), which warrants anticoagulation. - For rate control: - Continue metoprolol - For anticoagulation: - Continue home apixaban # Chronic Kidney Disease Stage III # Microscopic Hemturia - Creatinine = 2.16 -> 2.17 (near baseline) - Urinalysis = 2+ blood, 11-20 RBCs, 1+ protein - Diuretics as mentioned above - Monitor creatinine and urine output - If worsening, obtain renal ultrasound - Renally dose medications - Gradually improving, anticipate discharge in next 1-2 days pending Cardiology recs. Hernan Alonzo M.D.
--- NOTE | 2022-06-16 14:01 | EKG ---
Test Date: 2022-06-14 Test Time: 14:14:34 Animal Care Supervisor: JO MEASUREMENT RESULTS: Intervals: Rate: 89 [place]: 106 QRSD: 130 QT: 374 QTc: 455 [place]: P: 57 CO: 106 QRS: -4 T: 171 INTERPRETIVE STATEMENTS: Sinus rhythm with short CO with occasional premature ventricular complexes Possible Left atrial enlargement Left bundle branch block Abnormal ECG Compared to ECG 06/14/2022 14:13:29 Short CO interval now present Electronically Signed On 06-16-22 13:59:56 SHIP PILOT DISPATCHER by Jerardo Hussein
--- NOTE | 2022-06-16 20:29 | PN ---
Date of Progress Note: 06/16/2022 Subjective: Seen at bedside, doing clinically well. No chest pain. Shortness of breath is improved . Review of Systems: No chest pain. Minimal shortness of breath. No nausea, vomiting, diarrhea. No abdominal pain. No dysuria, polyuria, or urgency. All other systems reviewed are negative. Physical Examination: Vital Signs: Reviewed. Head and Neck: Pupils are equal, reactive to light. Intact eye movements. No JVD. No adenopathy. Neck is supple. Thyroid is not enlarged. Lungs: Clear to auscultation bilaterally. No rhonchi, rales, or crackles. No accessory muscle use. Heart: Irregular. No extra sounds. Abdomen: Soft, nontender. Bowel sounds positive. No organomegaly. No masses or hernia. No rigidi ty or rebound. Extremities: No clubbing, cyanosis. Intact pulses. Skin: No rashes. Neurologic: Alert, awake, oriented x3. No acute focal deficits appreciated. Lymph Nodes: No cervical or axillary adenopathy. Investigations: BUN 66, creatinine 2.6. His troponin peaked at 565 and coming down. Assessment/recommendations: 1.Elevated troponin. Patient is known to have diffuse coronary artery disease not amenable to inter vention as per Dr. Turner's report. At this point, I recommend aggressive medical management. Cont inue aspirin, beta-helen, and metoprolol as well as statin. 2.Chronic obstructive pulmonary disease exacerbation. He is improving. 3.Congestive heart failure exacerbation. This is much better. In fact, BUN and creatinine have worsened, so stop IV Lasix and switch to oral Lasix starting tomorrow. SR/MODL Voice ID: [id number] Report ID: [id number]
[2022-06-16] MEDS: ROSUVASTATIN 10 MG TAB PO SCH (20:56)
[2022-06-16] MEDS ORDERED: HOME MED 1 EA UNK (Vericiguat [Verquvo] 5 MG Tablet) PO SCH (21:00)
[2022-06-17] MEDS: ALBUTEROL 2.5 MG/3 ML NEB SOL NEB SCH ×2 (01:30→08:49)
[2022-06-17] MEDS: IPRATROPIUM BROM 0.5MG/2.5ML NEB SCH ×2 (01:30→08:49)
[2022-06-17 06:09] LABS: Potassium 5.1 mmol/L (3.5-5.1)
[2022-06-17 08:15] VITALS: BP 142/73; TEMP 97.9
--- NOTE | 2022-06-17 08:29 | P.DS ---
Admission Date: 06/14/22 Discharge Date: 06/17/22 Disposition: ROUTINE DISCHARGE Discharge Condition: GOOD Reason for Admission: SOB Consultations: 1. Cardiology Hospital Course: DIAGNOSES: # Acute Chronic Obstructive Pulmonary Disease Exacerbation # Mild Superimposed Acute on Chronic Diastolic Congestive Heart Failure Exacerbation # Suspect Type II Non-ST Segment Elevation Myocardial Infarction (Demand Ischemia) secondary to above # SIRS Criteria (Tachypnea, Tachycardia) likely due to COPD Exacerbation # Suspect Steroid-Induced Leukocytosis # Tobacco Use Disorder # Coronary Artery Disease # Hypertension # Dyslipidemia # Chronic Atrial Fibrillation # Chronic Kidney Disease Stage III # Microscopic Hematuria HOSPITAL COURSE: Mr. Gabo Chow is a pleasant 71 year old male with a past medical history significant for chronic obstructive pulmonary disease, paroxysmal atrial fibrillation, chronic diastolic congestive heart failure, coronary artery disease, hypertension, and chronic kidney disease stage III who was admitted to the [facility] on 06/14/2022 for shortness of breath. He was admitted to the Medicine service. He was found to have an acute COPD as well as an acute on chronic decompensated diastolic congestive heart failure exacerbation. He was treated with IV diuretics, steroids, bronchodilators, with significant improvement of his symptoms. He was noted to have an elevated troponin trend, so Cardiology was consulted. He was evaluated by Dr. Hussein. Dr. Hussein believes this to have been demand ischemia and he has cleared him for discharge with outpatient follow-up. Of note, he was found to have microscopic hematuria on his urinalysis and advised to schedule a follow-up appointment with Dr. Walton for further evaluation. On 06/17/2022, he was seen on morning rounds and deemed medically stable for discharge. He was discharged with instructions to schedule follow-up appointments with his PCP (Dr. Walton), with his Supervising Editor Trailer (Dr. Roy), with his Service Sprinkler Helper (Dr. Carter), and with Cardiology (Dr. Hussein). He was provided a prescription for prednisone. He was given the opportunity to ask q uestions and reported no further questions. Furthermore, all questions were answered to the best of my ability. A copy of this discharge summary will be sent to the above providers to facilitate continuity of care. Today, I personally spent 25 minutes on his case, of which greater than 50% of the time was spent in patient education, counseling, and coordination of care as described above. - Physical Exam General: Alert, In no apparent distress, Oriented x3 HEENT: Atraumatic, Mucous membr. moist/pink, EOMI, Sclerae nonicteric Neck: JVD not distended Respiratory: Diminished, but clear to auscultation bilaterally, without wheezes, rhonchi, or rales Cardiovascular: No edema, Regular rate/rhythm, Normal S1 S2, No gallops, No rubs, No murmurs Gastrointestinal: Normal bowel sounds, Soft and benign, Non-distended, No tenderness, No rebound, No guarding Musculoskeletal: No clubbing Integumentary: No rashes Neurological: Normal speech, Cranial nerves 3-12 intact, Normal affect Vital Signs/Physical Exam: Temp Pulse Resp BP Pulse Ox 97.9 F 64 20 142/73 H 95 06/17/22 08:00 06/17/22 08:00 06/17/22 08:00 06/17/22 08:00 06/17/22 08:00 Laboratory Data at Discharge: WBC 10.40 K/uL (4.3-10.9) 06/15/22 03:31 Hgb 11.7 g/dL (13.6-17.9) L D 06/15/22 03:31 Hct 35.1 % (39.6-49.0) L 06/15/22 03:31 Plt Count 232 K/uL (152-406) 06/15/22 03:31 Sodium 134 mmol/L (136-145) L 06/17/22 05:37 Potassium 5.1 mmol/L (3.5-5.1) 06/17/22 05:37 BUN 75 mg/dL (7-18) H 06/17/22 05:37 Creatinine 2.39 mg/dL (0.70-1.30) H 06/17/22 05:37 Glucose 162 mg/dL (74-106) H 06/17/22 05:37 Phosphorus 3.4 mg/dL (2.5-4.9) 06/14/22 15:26 Magnesium 2.2 mg/dL (1.6-2.4) 06/16/22 03:44 Triglycerides 80 mg/dL (<150) 06/14/22 15:26 Cholesterol 125 mg/dL (<200) 06/14/22 15:26 HDL Cholesterol 56 mg/dL (40-60) 06/14/22 15:26 Cholesterol/HDL Ratio 2.23 06/14/22 15:26 Home Medications: Albuterol Sulfate [Albuterol Sulfate Hfa] 1 puff IH DAILY 02/05/22 Aspirin [Aspirin EC] 81 mg PO DAILY 04/05/22 Clopidogrel Bisulfate [Plavix] 75 mg PO DAILY 04/05/22 Metoprolol Tartrate 25 mg PO BID 04/05/22 Apixaban [Eliquis] 5 mg PO BID #60 tab 04/09/22 Fluticasone/Salmeterol [Advair 250-50 Diskus] 1 each IH BID #1 kit 05/13/22 predniSONE [Deltasone*] 10 mg PO BID #10 tab 05/13/22 Furosemide [Lasix] 80 mg PO DAILY 06/14/22 Pantoprazole Sodium [Protonix] 40 mg PO DAILY 06/14/22 Rosuvastatin Calcium [Crestor] 20 mg PO BEDTIME 06/14/22 Vericiguat [Verquvo] 1 tab PO BEDTIME 06/16/22 predniSONE [Prednisone*] 20 mg PO BID 5 Days #10 tab 06/17/22 New Medications: predniSONE [Prednisone*] 20 mg PO BID 5 Days #10 tab Diet: Renal Activity: Ad angélica Followup: Henry Roy DO [ACTIVE - CAN ADMIT] - Greg Walton MD [ACTIVE - CAN ADMIT] - Jerardo Hussein MD [ACTIVE - CAN ADMIT] - Evangelist Carter MD [ACTIVE - CAN ADMIT] - Time spent managing pt's care (in minutes): 25
[2022-06-17] MEDS: FLUTICASONE IH SCH (08:45)
[2022-06-17] MEDS: METOPROLOL TAR 25 MG TAB PO SCH (08:45)
[2022-06-17] MEDS: predniSONE 20 MG TAB PO SCH (08:45)
[2022-06-17] MEDS: ASPIRIN 81 MG CHEWABLE TABLET PO SCH (08:45)
[2022-06-17] MEDS: PANTOPRAZOLE 40MG TABLET PO SCH (08:45)
[2022-06-17] MEDS: SALMETEROL IH SCH (08:45)
[2022-06-17] MEDS: APIXABAN 5 MG TABLET PO SCH (08:46)
[2022-06-17] MEDS: FUROSEMIDE 40 MG TABLET PO SCH (08:46)
[2022-06-17] MEDS: CLOPIDOGREL 75 MG TABLET PO SCH (08:46)
[2022-06-17 09:34] VITALS: O2SAT 97
--- NOTE | 2022-06-19 17:34 | EKG ---
Test Date: 2022-06-15 Test Time: 15:30:31 Guest Experience Representative: Alex STONE MEASUREMENT RESULTS: Intervals: Rate: 69 ID: [id number] QRSD: 132 QT: 446 QTc: 477 [place]: P: 73 ID: [id number] QRS: -22 T: 143 INTERPRETIVE STATEMENTS: Normal sinus rhythm Left bundle branch block Abnormal ECG Compared to ECG 06/14/2022 14:14:34 Ventricular premature complex(es) no longer present Short ID interval no longer present Electronically Signed On 06-19-22 17:29:17 ROLLED GOLD PLATER by Jerardo Hussein
== END 2022-06-17 09:54 | disposition home or self-care (01) | DRG 280 ==
LOC: ER 13:32 → ERHOLD 16:33 → 4TH 18:29
PROVIDERS: ADMIT Internal Medicine; ATTEND Internal Medicine
DX: I13.0 Hypertensive heart and chronic kidney disease with heart failure and stage 1 through stage 4 chronic kidney disease, or unspecified chronic kidney disease (principal); I50.33 Acute on chronic diastolic (congestive) heart failure; I21.4 Non-ST elevation (NSTEMI) myocardial infarction; I48.20 Chronic atrial fibrillation, unspecified; J44.1 Chronic obstructive pulmonary disease with (acute) exacerbation; R65.10 Systemic inflammatory response syndrome (SIRS) of non-infectious origin without acute organ dysfunction; N18.32 Chronic kidney disease, stage 3b; E78.5 Hyperlipidemia, unspecified; D63.8 Anemia in other chronic diseases classified elsewhere; I25.10 Atherosclerotic heart disease of native coronary artery without angina pectoris; D72.829 Elevated white blood cell count, unspecified; T38.0X5A Adverse effect of glucocorticoids and synthetic analogues, initial encounter; I25.2 Old myocardial infarction; R31.29 Other microscopic hematuria; R51.9 Headache, unspecified; Z95.5 Presence of coronary angioplasty implant and graft; Z79.82 Long term (current) use of aspirin; Z79.52 Long term (current) use of systemic steroids; Z79.01 Long term (current) use of anticoagulants; Z79.899 Other long term (current) drug therapy; Z87.891 Personal history of nicotine dependence; Z20.822 Contact with and (suspected) exposure to COVID-19
CPT/HCPCS: 36415; 71045; 80048; 80061; 81001; 83036; 83735; 83880; 84100; 84484; 85025; 87811; 93005; 94640; 96374; 99285; J1940; J2930; J7512; J7613; J7644

== ENCOUNTER 2022-06-18 08:17 | Inpatient (IN) | payer MEDICARE ==
--- OUTSIDE RECORDS SUMMARY | 2022-06-18 08:31 | XMS REPORT | Continuity of Care Document ---
:1950 Author Organization [facility] t Address 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 00[place] Tachycardi Tachycardi Disease Active U nivers a a 8-21 ity of 00:00: [place] 00 Medical Branch Hypertensi Hypertensi Disease Active [facility]:00: [facility] south 00 Center Acute [...] Physici disease 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 Branch History [facility] Food 2022-02-22 2022-02-22 1 Univers ity of Scarcity 00:00:00 00:00:00 [facility] Branch History [facility] 2022-02-22 2022-02-22 2 University o f Transport Med 00:00:00 00:00:00 [facility] Branch History [facility] 2022-02-22 2022-02-22 2 University o f Transport Non-Med 00:00:00 00:00:00 [facility] Exposure to 2022-02-04 2022-02-14 Not sure University of SARS-CoV-2 (event) 00:00:00 14:51:00 [facility] Cigarettes smoked 2022-02-14 2022-02-14 Univers ity of current (pack per 00:00:00 00:00:00 [facility] ) - Reported Branch Cigarette 2022-02-14 2022-02-14 University of pack-years 00:00:00 00:00:00 [facility] Tobacco use and 2021-11-10 2021-11-[address] [facility] kes exposure 00:00:00 00:00:00 [facility] Alcohol intake 2021-11-10 2021-11-10 Ex-drinker [facility] 00:00:00 00:00:00 (finding) [facility] History of tobacco 2021-10-25 Passive smoker Un iversity of use 00:00:00 [facility] Sex Ass[birth year] At [birth year] ALEXEI Vilchis 00:00:00 00:00:00 [facility] Smoking Status Start Date Stop Date Source Smokes tobacco daily [facility] (finding) Ex-smoker 2022-02-14 00:00:00 2022-02-14 00:00:00 Universi ty [facility] Medications Ordered Filled Start Stop Current Ordering Indication Dosage Frequency Signature Comments Components Source Medication Medication Date Date Medication? Clinician (SIG) Name Name azithromyci Yes [id number] 500mg Take 1 Univers n 500 mg 8-27 tablet by ity of tablet 00:00: mouth in [place] 00 the Medical morning. Branch furosemide Yes [id number] 40mg Take 1 Univers 40 mg 8-27 tablet by ity of tablet 00:00: mouth in [place] the Medical morning. Branch azithromyci 2021-0 Yes [id number] 500mg Take 1 Univers n 500 mg 8-27 tablet by ity of tablet 00:00: mouth in [place] the Medical morning. Branch furosemide 2021-0 Yes [id number] 40mg Take 1 Univers 40 mg 8-27 tablet by ity of tablet 00:00: mouth in [place] the Medical morning. Branch azithromyci 2021-0 Yes [id number] 500mg Take 1 Univers n 500 mg 8-27 tablet by ity of tablet 00:00: mouth in [place] the Medical morning. Branch furosemide 2021-0 Yes [id number] 40mg Take 1 Univers 40 mg 8-27 tablet by ity of tablet 00:00: mouth in [place] the Medical morning. Branch azithromyci 2021-0 Yes [id number] 500mg Take 1 Univers n 500 mg 8-27 tablet by ity of tablet 00:00: mouth in [place] 00 the Medical morning. Branch furosemide 2021-0 Yes [id number] 40mg Take 1 Univers 40 mg 8-27 tablet by ity of tablet 00:00: mouth in [place] 00 the Medical morning. Branch azithromyci 2021-0 Yes [id number] 500mg Take 1 Univers n 500 mg 8-27 tablet by ity of tablet 00:00: mouth in [place] 00 the Medical morning. Branch furosemide 2021-0 Yes [id number] 40mg Take 1 Univers 40 mg 8-27 tablet by ity of tablet 00:00: mouth in [place] 00 the Medical morning. Branch azithromyci 2021-0 Yes [id number] 500mg Take 1 Univers n 500 mg 8-27 tablet by ity of tablet 00:00: mouth in [place] 00 the Medical morning. Branch furosemide 2021-0 Yes [id number] 40mg Take 1 Univers 40 mg 8-27 tablet by ity of tablet 00:00: mouth in [place] 00 the Medical morning. Branch azithromyci 0 Yes [id number] 500mg Take 1 Univers n 500 mg 8-27 tablet by ity of tablet 00:00: mouth in [place] 00 the Medical morning. Branch furosemide 2021-0 Yes [id number] 40mg Take 1 Univers 40 mg 8-27 tablet by ity of tablet 00:00: mouth in [place] 00 the Medical morning. Branch aspirin 81 2021- No [id number] 81mg Take 1 Univers mg chewable 8-27 03-23 tablet by it y of tablet 00:00: 04:59 mouth in [place] 00 :00 the Medical morning Branch for 30 days. clopidogreL 2021- No [id number] 75mg Take 1 Univers 75 mg 8-27 - tablet by ity of tablet 00:00: 04:59 mouth in [place] 00 :00 the Medical morning Branch for 30 days. Fluticasone 2021-0 2021- No [id number] 1{puff} Inhale 1 Univers -Salmeterol 8-23 03- Puff every i ty of 100-50 00:00: 04:59 12 [place] mcg/dose 00 :00 (twelve) Medical inhalation hours for Bran ch disk 30 days. rosuvastati 2021-2021- No [id number] 20mg Take 1 Univers n 20 mg 8-03-23 tablet by ity of tablet 00:00: 04:59 mouth at [place] 00 :00 bedtime Medical for 30 Branch days. aspirin 81 2021-0 2- No [id number] 81mg Take 1 Univers mg chewable 8-27 - tablet by it y of tablet 00:00: 04:59 mouth in [place] 00 :00 the Medical morning Branch for 30 days. clopidogreL 2021- No [id number] 75mg Take 1 Univers 75 mg 8-23 03- tablet by ity of tablet 00:00: 04:59 mouth in [place] 00 :00 the Medical morning Branch for 30 days. Fluticasone 2021- No [id number] 1{puff} Inhale 1 Univers -Salmeterol 8-23 03- Puff every i ty of 100-50 00:00: 04:59 12 [place] mcg/dose 00 :00 (twelve) Medical inhalation hours for Bran ch disk 30 days. rosuvastati 2021- No [id number] 20mg Take 1 Univers n 20 mg -03-23 tablet by ity of tablet 00:00: 04:59 mouth at [place] 00 :00 bedtime Medical for 30 Branch days. aspirin 81 2021- No [id number] 81mg Take 1 Univers mg chewable -03-23 tablet by it y of tablet 00:00: 04:59 mouth in [place] 00 :00 the Medical morning Branch for 30 days. clopidogreL 2021- No [id number] 75mg Take 1 Univers 75 mg -03-23 tablet by ity of tablet 00:00: 04:59 mouth in [place] 00 :00 the Medical morning Branch for 30 days. Fluticasone 2021- No [id number] 1{puff} Inhale 1 Univers -Salmeterol -03-23 Puff every i ty of 100-50 00:00: 04:59 12 [place] mcg/dose 00 :00 (twelve) Medical inhalation hours for Bran ch disk 30 days. rosuvastati 2021- No [id number] 20mg Take 1 Univers n 20 mg -03-23 tablet by ity of tablet 00:00: 04:59 mouth at [place] 00 :00 bedtime Medical for 30 Branch days. aspirin 81 2021- No [id number] 81mg Take 1 Univers mg chewable -03-23 tablet by it y of tablet 00:00: 04:59 mouth in [place] 00 :00 the Medical morning Branch for 30 days. clopidogreL 2021- No [id number] 75mg Take 1 Univers 75 mg 8-03-23 tablet by ity of tablet 00:00: 04:59 mouth in [place] 00 :00 the Medical morning Branch for 30 days. Fluticasone 2021- No [id number] 1{puff} Inhale 1 Univers -Salmeterol 8-03-23 Puff every i ty of 100-50 00:00: 04:59 12 [place] mcg/dose 00 :00 (twelve) Medical inhalation hours for Bran ch disk 30 days. rosuvastati 2021-2021- No [id number] 20mg Take 1 Univers n 20 mg -03-23 tablet by ity of tablet 00:00: 04:59 mouth at [place] 00 :00 bedtime Medical for 30 Branch days. aspirin 81 2021-2021- No [id number] 81mg Take 1 Univers mg chewable -03-23 tablet by it y of tablet 00:00: 04:59 mouth in [place] 00 :00 the Medical morning Branch for 30 days. clopidogreL 2021-2021- No [id number] 75mg Take 1 Univers 75 mg 8-03-23 tablet by ity of tablet 00:00: 04:59 mouth in [place] 00 :00 the [facility] morning Branch for 30 days. Fluticasone 2021-2021- No [id number] 1{puff} Inhale 1 Univers -Salmeterol -23 03- Puff every i ty of 100-50 00:00: 04:59 12 [place] mcg/dose 00 :00 (twelve) Medical inhalation hours for Bran ch disk 30 days. rosuvastati 2021-2021- No [id number] 20mg Take 1 Univers n 20 mg 02-20 tablet by ity of tablet 00:00: 04:59 mouth at [place] 00 :00 bedtime Medical for 30 Branch days. aspirin 81 2021-2- No [id number] 81mg Take 1 Univers mg chewable -03-23 tablet by it y of tablet 00:00: 04:59 mouth in [place] 00 :00 the Medical morning Branch for 30 days. clopidogreL 2021-0 2021- No [id number] 75mg Take 1 Univers 75 mg 8-03-23 tablet by ity of tablet 00:00: 04:59 mouth in [place] 00 :00 the Medical morning Branch for 30 days. Fluticasone 2021-2- No [id number] 1{puff} Inhale 1 Univers -Salmeterol 02-20 Puff every i ty of 100-50 00:00: 04:59 12 [place] mcg/dose 00 :00 (twelve) Medical inhalation hours for Bran ch disk 30 days. rosuvastati 2021- No [id number] 20mg Take 1 Univers n 20 mg [...] Routine lisinopriL 2021-2021- No 10mg 10 mg, [facility] ers (PRINIVIL,Z 02-19 Oral, QHS, i ty of ESTRIL) 02:00: 23:44 First dose [place] as tablet 10 00 :08 on [facility] mg 02/18/22 at Branch 2100, Until Discontinu ed, Routine lisinopriL 2021-2021- No 10mg 10 mg, [facility] ers (PRINIVIL,Z 02-19 Oral, QHS, i ty of ESTRIL) 02:00: 23:44 First dose [place] as tablet 10 00 :08 on [facility] mg 02/18/22 at Branch 2100, Until Discontinu ed, Routine methylPREDN 2021- No 40mg 40 mg, Uni vers ISolone sod 02-18 Intravenou i ty of succ 16:30: 23:44 s, Q12H, [place] (SOLU-MEDRO 00 :08 First dose Me dical L (PF)) on [place] Branch injection 02/18/22 at 40 mg 1130, Until Discontinu ed, 1 mL methylPREDN 2021- No 40mg 40 mg, Uni vers ISolone sod 02-18 Intravenou i ty of succ 16:30: 23:44 s, Q12H, [place] (SOLU-MEDRO 00 :08 First dose Me dical L (PF)) on [facility] Branch injection 02/18/22 at 40 mg 1130, Until Discontinu ed, 1 mL Fluticasone 2021-0 2021- No 1{puff} 1 Puff, Univers -Salmeterol 02-18 Inhalation i ty of (ADVAIR) 15:30: 23:44 , Q12H, [place] 100-50 00 :08 First dose Medical mcg/dose on [facility] Branch inhalation 02/18/22 at disk 1 Puff 1030, Until Discontinu ed, Routine Fluticasone 2021-0 2021- No 1{puff} 1 Puff, Univers -Salmeterol 02-18 Inhalation i ty of (ADVAIR) 15:30: 23:44 , Q12H, [place] 100-50 00 :08 First dose Medical mcg/dose [...] injection 15 :15 on Tue02/17/22 at Branch [facility], Until Tue02/17/22 at 104, Routine, CV Intraproce dure FENTanyl PF 2021- No ONCE INTRA Univers (SUBLIMAZE 02-17 PROCEDURE, it y of (PF)) 14:55: 15:48 Starting [place] injection 15 :15 on Tue02/17/22 at Branch [facility], Until Tue02/17/22 at 104, Routine, CV [...] of XL (TOPROL 15:45: 23:44 First dose [place] XL) tablet 00 :08 on [facility] Medical 25 mg 02/16/22 at Branch 1045, Until Discontinu ed, Routine metoprolol 2021- No 25mg 25 mg, Univ ers succinate 02-16 Oral, BID, ity of XL (TOPROL 15:45: 23:44 First dose [place] XL) tablet 00 :08 on [facility] 25 mg 02/16/22 at Branch 1045, Until Discontinu ed, Routine aspirin No 81mg 81 mg, Univers chewable 02-15 Oral, ity of tablet 81 14:00: 23:44 DAILY, [place] mg 00 :08 First dose Medical on [facility] 02/15/22 at 0900, Until Discontinu ed, Routine aspirin 2021- No 81mg 81 mg, Univers chewable 02-15 Oral, ity of tablet 81 14:00: 23:44 DAILY, [place] mg 00 :08 First dose Medical on [facility] 02/15/22 at 0900, Until Discontinu ed, Routine Sliding No Subcutaneo Uni vers Scale 02-15 us, AC+HS, ity of Insulin-Reg 02:00: 23:44 First dose [place] ular + Fsbg 00 :08 on [facility] 02/14/22 at Branch 2100, Until Discontinu ed, Routine Sliding No Subcutaneo Uni vers Scale 02-15 us, AC+HS, ity of Insulin-Reg 02:00: 23:44 First dose [place] ular + Fsbg 00 :08 on [facility] 02/14/22 at Branch 2100, Until Discontinu ed, Routine glucagon No 1mg 1 mg, Univers (GLUCAGEN 02-14 Intramuscu ity of DIAGNOSTIC 23:37: 23:44 [place], PRN, [place] KIT) 33 :08 Starting Medical injection 1 on [facility] mg 02/14/22 at 1837, Until 02/20/22 at [...] mouth Medic al GG, 00 :00 daily. [facility] (CULTURELLE ) 10 billion cell capsule lactobacill 2022- No 1{capsu QD Take [address] [facility] us 5-20 05-20 le} capsule by [facility] rhamnosus, 00:00: 23:59 mouth Medic al GG, 00 :00 daily. [facility] (CULTURELLE ) 10 billion cell capsule lactobacill 2022- No 1{capsu QD Take [address] [facility] us 5-20 05-20 le} capsule by [facility] rhamnosus, 00:00: 23:59 mouth Medic al GG, 00 :00 daily. [facility] (CULTURELLE ) 10 billion cell capsule lactobacill 2022- No 1{capsu QD Take [address] [facility] us 5-20 05-20 le} capsule by [facility] rhamnosus, 00:00: 23:59 mouth Medic al GG, 00 :00 daily. [facility] (CULTURELLE ) 10 billion cell capsule lactobacill 2022- No 1{capsu QD Take [address] [facility] us 5-20 05-20 le} capsule by [facility] rhamnosus, 00:00: 23:59 mouth Medic al GG, 00 :00 daily. [facility] (CULTURELLE ) 10 billion cell capsule lactobacill 2022- No 1{capsu QD Take [address] [facility] us 5-20 05-20 le} capsule by [facility] rhamnosus, 00:00: 23:59 mouth Medic al GG, 00 :00 daily. [facility] (CULTURELLE ) 10 billion cell capsule amLODIPine [...] Center daily for 90 days. amLODIPine 2021-0 2022- No 10mg QD Take 1 [facility] [...] daily for 90 days. aspirin 81 2021-0 2- No 81mg QD Take [address] MG chewable 5-20 08-18 tablet (81 L ukes tablet 00:00: 23:59 mg total) Medic al 00 :00 by mouth Center daily for 90 days. amLODIPine 2021-0 2021- No 10mg QD Take [address] [facility] [address] (NORVASC) 5-20 08-18 tablet (10 Sally es 10 MG 00:00: 23:59 mg total) Medica l tablet 00 :00 by mouth Center daily for 90 days. aspirin 81 2021-0 2- No 81mg QD Take [address] [facility] [...] mouth Center daily for 90 days. amLODIPine 2022-0 2022- No 10mg QD Take [address] [facility] (NORVASC) 5-20 08-18 tablet (10 Sally es 10 MG 00:00: 23:59 mg total) Medica l tablet 00 :00 by mouth Center daily for 90 days. aspirin 81 0 2021- No 81mg QD Take [address] [facility] [facility] MG chewable 5-20 08-18 tablet (81 L ukes tablet 00:00: 23:59 mg total) Medic al 00 :00 by mouth Center daily for 90 days. lisinopriL 2021-0 Yes 40mg QD Take 40 [...] 20:45: daily. Medic al MG tablet 02 [facility] carvediloL 0 Yes 6.25mg Take 6.25 [...] times daily with breakfast and dinner. lisinopriL 2-0 Yes 40mg QD Take 40 [...] 20:45: daily. Medic al MG tablet 02 [facility] carvediloL Yes 6.25mg Take 6.[address] (COREG) 5-19 mg by [facility] 6.25 MG 20:45: mouth 2 Medical tablet 02 (two) Center times daily with breakfast and dinner. lisinopriL Yes 40mg QD Take [address] (PRINIVIL,Z 5-19 by mouth Luke s ESTRIL) 40 20:45: daily. Medic al MG tablet 02 [facility] carvediloL Yes 6.25mg Take 6.25 [facility] [...] tablet 36 :00 times Center daily. amLODIPine 2021-2- No 5mg QD Take 5 mg C [...] [facility] -albuteroL 5- 05-14 by [facility] ([email or web address]) 00:00: 23:59 nebulizati M edical 0.5 mg-3 [...] needed for up to 360 days. ipratropium 2-0 3- No 3mL Take [address] -albuteroL 5-19 05-14 by [facility] (DUO-NEB) 00:00: 23:59 nebulizati [...] [address] -albuteroL 11-12-14 by [employer] ([email or web address]) 00:00: 23:59 nebulizati M edical 0.5 mg-3 [...] [address] -albuteroL 11-1214 by [employer] ([email or web address]) 00:00: 23:59 nebulizati M edical 0.5 mg-3 00 :00 on every 6 Cente r mg(2.5 mg (six) base)/3 mL hours as nebulizer needed for solution Wheezing for up to 360 days. apixaban 2021-2021- No 5mg Q.5D Take [address] (ELIQUIS) 5 - 08-17 tablet (5 Romero kes mg Tab [...] times daily for 90 days. apixaban 2021-0 2- No 5mg Q.5D Take [address] [facility] [...] 1mg Take [address] (BUMEX) 1 5-13 12-18 tablet (1 Luke s MG tablet 00:00: 23:59 mg total) Me dical 00 :00 by mouth 2 Center (two) times daily for 30 days. bumetanide 2021-0 2021- No 1mg Take [address] [facility] (BUMEX) 1 11-12-18 tablet (1 Luke s MG tablet 00:00: 23:59 mg total) Me dical 00 :00 by mouth 2 Center (two) times daily for 30 days. bumetanide 1mg Take [address] [facility] (BUMEX) 1 11-12-18 tablet (1 Luke s MG tablet 00:00: 23:59 mg total) Me dical 00 :00 by mouth 2 Center (two) times daily for 30 days. bumetanide 1mg Take [address] (BUMEX) 1 11-12-18 tablet (1 Luke s MG tablet 00:00: 23:59 mg total) Me dical 00 :00 by mouth 2 Center (two) times daily for 30 days. predniSONE No Take [address] (DELTASONE) 5-31 tablets Luke s 10 MG 00:00: 23:59 (40 mg Medical tablet 00 :00 total) by Center mouth daily for 3 days, THEN 3 tablets (30 mg total) daily for 3 days, THEN 2 tablets (20 mg total) daily for 3 days, THEN 1 tablet (10 mg total) daily for 3 days. predniSONE No Take [address] (DELTASONE) 5-12 [...] mg total) daily for 3 days. predniSONE 2021-2021- No Take [address] (DELTASONE) 11-12- tablets Luke s 10 MG 00:00: 23:59 (40 mg Medical tablet 00 :00 total) by Center mouth daily for 3 days, THEN 3 tablets (30 mg total) daily for 3 days, THEN 2 tablets (20 mg total) daily for 3 days, THEN 1 tablet (10 mg total) daily for 3 days. dextrometho 2021-2021- No 5mL Take [address] [facility] [...] liquid up to 10 days. dextrometho 2021-0 2022- No 5mL Take [address] rphan-guaif 5-19 05-29 by mouth Sally es enesin 00:00: 23:59 every 4 Medical (ROBITUSSIN 00 :00 (four) [facility] -) 10-100 hours as mg/5 mL needed for liquid up to 10 days. dextrometho 2021-0 2- No 5mL Take [address] rphan-guaif 5-19 05-29 by mouth Sally es enesin 00:00: 23:59 every 4 Medical (ROBITUSSIN 00 :00 (four) [facility] -) 10-100 hours as mg/5 mL needed for liquid up to 10 days. dextrometho 2021-0 2021- No 5mL Take [address] rphan-guaif 5-19 05-29 by mouth Sally es enesin 00:00: 23:59 every 4 Medical (ROBITUSSIN 00 :00 (four) [facility] -) 10-100 hours as mg/5 mL [...] tablet daily for 3 days. amoxicillin 2021-0 2- No 1{tbl} Q.5D Take [address] -clavulanat 5-19 05-22 tablet by Romero kes e 00:00: 23:59 mouth 2 Medical (AUGMENTIN) 00 :00 (two) Center 875-125 mg times per tablet daily for 3 days. amoxicillin 2021-0 2- No 1{tbl} Q.5D Take [address] -clavulanat 5-19 05-22 tablet by Romero kes e 00:00: 23:59 mouth 2 Medical (AUGMENTIN) 00 :00 (two) Center 875-125 mg times per tablet daily for 3 days. lisinopriL 2021-0 Yes [id number] 10mg Take 1 Univers 10 mg 4-17 tablet by ity of tablet 00:00: mouth at [place] [address] bedtime. Medical Branch metoprolol 2021-0 Yes [id number] 25mg Take 1 Univers tartrate 25 4-17 tablet by ity of mg tablet 00:00: mouth 2 [place] (two) Medical times Branch daily. lisinopriL 2021-0 Yes [id number] 10mg Take 1 Univers 10 mg 4-17 tablet by ity of tablet 00:00: mouth at [place] [address] bedtime. Medical Branch metoprolol 2021-0 Yes [id number] 25mg Take 1 Univers tartrate 25 4-17 tablet by ity of mg tablet 00:00: mouth 2 [place] (two) Medical times Branch daily. lisinopriL 2021-0 Yes [id number] 10mg Take 1 Univers 10 mg 4-17 tablet by ity of tablet 00:00: mouth at [place] [address] bedtime. Medical Branch metoprolol 2021-0 Yes [id number] 25mg Take 1 Univers tartrate 25 4-17 tablet by ity of mg tablet 00:00: mouth 2 [place] (two) Medical times Branch daily. lisinopriL 2022-0 Yes [id number] 10mg Take 1 Univers 10 mg 4-17 tablet by ity of tablet 00:00: mouth at [place] [address] bedtime. Medical Branch metoprolol 2021-0 Yes [id number] 25mg Take 1 Univers tartrate 25 4-17 tablet by ity of mg tablet 00:00: mouth 2 [place] (two) Medical times Branch daily. lisinopriL Yes [id number] 10mg Take 1 Univers 10 mg 4-17 tablet by ity of tablet 00:00: mouth at [place] [address] bedtime. Medical Branch metoprolol Yes [id number] 25mg Take 1 Univers tartrate 25 4-17 tablet by ity of mg tablet 00:00: mouth 2 [place] (two) Medical times Branch daily. lisinopriL 0 Yes [id number] 10mg Take 1 Univers 10 mg 4-17 tablet by ity of tablet 00:00: mouth at [place] [address] bedtime. Medical Branch metoprolol Yes [id number] 25mg Take 1 Univers tartrate 25 4-17 tablet by ity of mg tablet 00:00: mouth 2 [place] (two) Medical times Branch daily. lisinopriL Yes [id number] 10mg Take 1 Univers 10 mg 4-17 tablet by ity of tablet 00:00: mouth at [place] [address] bedtime. Medical Branch metoprolol Yes [id number] 25mg Take 1 Univers tartrate 25 4-17 tablet by ity of mg tablet 00:00: mouth 2 [place] (two) Medical times Branch daily. Spiriva Spiriva [...] Tablet 00:00: DAILY. ans 00 Lisinopril Lisinopril 2011-1 Yes MARK 1 QD TAKE 1 UT 10 MG Oral 10 MG Oral 08-24 ENRIQUE Gonzalez TABLET [facility] Tablet Tablet 00:00: DAILY. ans 00 Vital Signs Vital Name Observation Time Observation Value Comments Source Systolic blood 2022-02-17 115 mm[Hg] [facility] pressure 14:38:59 [facility] Diastolic blood 2022-02-17 71 mm[Hg] [place] o f pressure 14:38:59 [facility] Respiratory rate 2022-02-17 20 /min [facility] 14:38:59 [facility] Oxygen saturation 2022-02-17 100 /min [facility] Arterial blood 14:38:[address] [facility] by Pulse oximetry [facility] rate 2022-02-17 76 /min [facility] 11:00:00 [facility] Body temperature 2022-02-17 36.44 Leni [facility] 09:00:00 [facility] Body height 2022-02-14 182.9 cm University 22:40:00 [facility] Body weight 2022-02-14 83.6 kg University 22:40:00 [facility] BMI 2022-02-14 25.00 kg/m2 University 22:40:00 [facility] WEIGHT 2021-11-11 81.5 kg 04:18:00 HEIGHT 2021-11-10 [...] 2021-11-12 60 /min [facility] 19:40:00 [facility] Respiratory rate 2021-11-12 18 /min [facility] 19:40:00 [facility] Center Oxygen saturation 2021-11-12 99 /min [facility] in Arterial blood 19:40:00 Medical nter by Pulse oximetry Systolic blood 2021-11-12 137 mm[Hg] [facility] pressure 16:00:00 [facility] Center Diastolic blood 2021-11-12 83 mm[Hg] [facility] pressure 16:00:00 [facility] Body temperature 2021-11-[address] [facility] 16:00:00 [facility] Center Body weight 2021-11-[address] [facility] 04:18:00 [facility] BMI 2021-11-11 24.37 kg/m2 [facility] 04:18:00 [facility] Center Body height 2021-11-[address] [facility] 04:48:00 [facility] Center Systolic blood 2020-04-16 141 mm[Hg] Location: [facility] pressure 07:34:00 Position: Sitting Diastolic blood 2020-04-16 60 mm[Hg] Location: [facility] Physici ans pressure 07:34:00 Position: Sitting Weight 2020-04-16 173.125 [lb_av] [facility] 07:34:00 Body mass index 2020-04-16 22.23 kg/m2 [facility] (BMI) [Ratio] 07:34:00 Body temperature 2020-04-16 97.2 [degF] Method: [facility] 07:34:00 Tympanic Heart Rate 2020-04-16 59 /min Location: [facility] 07:34:00 Radial; Quality: Normal O2 SAT 2020-04-16 95 % Source: [facility] 07:34:00 Non-Rebreather Heart Rate 2020-04-07 54 /min [facility] 14:12:00 Respiratory rate 2020-04-07 18 /min [facility] 14:12:00 O2 SAT 2020-04-07 97 % Source: [facility] 14:12:00 Systolic blood 2020-04-07 137 mm[Hg] Location: [facility]; [facility] pressure 14:12:00 Position: Sitting Diastolic blood 2020-04-07 74 mm[Hg] Location: [facility]; [facility] pressure 14:12:00 Position: Sitting Body height 2020-04-07 74 [in_us] [facility] 14:12:00 Weight 2020-04-07 171 [lb_av] [facility] 14:12:00 Body mass index 2020-04-07 21.96 kg/m2 [facility] (BMI) [Ratio] 14:12:00 Body temperature 2020-04-07 97.8 [degF] [facility] 14:12:00 Procedures Procedure Date / Time Performing Clinician Source Performed ASSIGNMENT OF BENEFITS 2022-03-31 22:21:39 Doctor Cyn[facility], [facility] [employer] AUTHORIZATION FOR RELEASE 2022-03-02 05:01:00 Doctor Cynthia, [facility] [employer] AUTHORIZATION FOR RELEASE 2022-02-26 05:01:00 Doctor Unassigned, [facility] [employer] AUTHORIZATION FOR RELEASE 2022-02-22 05:01:00 [facility] POCT GLUCOSE (AUTOMATED) 2022-02-20 18:39:00 Carmelo Hodgson [facility] POCT GLUCOSE (AUTOMATED) 2022-02-20 14:45:00 Carmelo Hodgson [facility] BASIC METABOLIC PANEL (NA, 2022-02-20 10:00:00 Arcelia Tellez [facility] K, CL, CO2, GLUCOSE, BUN, Medica l Branch CREATININE, CA) EMERGENCY SERVICES 2022-02-20 05:01:00 Doctor Cynthia, [facility] AGREEMENTS AND [place] [facility] [employer] AUTHORIZATIONS BASIC METABOLIC PANEL (NA, 2022-02-20 01:23:00 Juan Lott [facility] K, CL, CO2, GLUCOSE, BUN, Medica l Branch CREATININE, CA) POCT GLUCOSE (AUTOMATED) 2022-02-20 01:01:00 Corwin Walden [facility] POCT GLUCOSE (AUTOMATED) 2022-02-19 22:27:00 Corwin Walden [facility] BASIC METABOLIC PANEL (NA, 2022-02-19 18:07:00 Juan Lott [facility] K, CL, CO2, GLUCOSE, BUN, Medica l Branch CREATININE, CA) POCT GLUCOSE (AUTOMATED) 2022-02-19 16:22:00 Iram Corwin Estrada [facility] POCT GLUCOSE (AUTOMATED) 2022-02-19 13:14:00 Corwin Walden [facility] BASIC METABOLIC PANEL (NA, 2022-02-19 13:12:00 Jagdeep Fagan [facility] K, CL, CO2, GLUCOSE, BUN, Medica l Branch CREATININE, CA) MAGNESIUM 2022-02-19 09:17:00 Asad [facility] BASIC METABOLIC PANEL (NA, 2022-02-19 09:17:00 Asad [facility] K, CL, CO2, GLUCOSE, BUN, Medica l Branch CREATININE, CA) CBC WITHOUT DIFF 2022-02-19 09:17:00 Asad [facility] POCT GLUCOSE (AUTOMATED) 2022-02-19 01:13:00 Corwin Walden Natalie [facility] POCT GLUCOSE (AUTOMATED) 2022-02-18 21:58:00 Iram Corwin Estrada [facility] PROCALCITONIN 2022-02-18 19:50:00 Kellie Puentes o f [facility] POCT GLUCOSE (AUTOMATED) 2022-02-18 17:30:00 Corwin Walden [facility] CT THORAX WO CONTRAST 2022-02-18 17:14:31 [facility]) 2022-02-18 12:57:00 Corwin Walden [facility] BASIC METABOLIC PANEL (NA, 2022-02-18 08:43:00 Arcelia Tellez [facility] K, CL, CO2, GLUCOSE, BUN, Medica l Branch CREATININE, CA) CBC WITH DIFF 2022-02-18 08:43:00 [facility]IN 2022-02-18 08:43:00 Carmelo Hodg[facility] POCT GLUCOSE (AUTOMATED) 2022-02-18 01:14:00 Corwin Walden [facility] POCT GLUCOSE (AUTOMATED) 2022-02-17 21:44:00 Corwin Walden [facility] CARDIAC CATHETERIZATION 2022-02-17 15:20:00 Alexa [facility] CARDIAC CATHETERIZATION 2022-02-17 15:20:00 Alexa [facility] CATH PROCEDURE LOG 2022-02-17 15:04:23 Alexa [facility] POCT GLUCOSE (AUTOMATED) 2022-02-17 12:58:00 Corwin Walden [facility] ACTIVATED PARTIAL THRMPLAS 2022-02-17 12:53:00 Jagdeep Fagan [facility] MAGNESIUM 2022-02-17 09:01:00 Ben [facility] BASIC METABOLIC PANEL (NA, 2022-02-17 09:01:00 [facility], CL, CO2, GLUCOSE, BUN, Medica l Branch CREATININE, CA) CBC WITH DIFF 2022-02-17 09:01:00 Mike, [facility] POCT GLUCOSE (AUTOMATED) 2022-02-17 01:00:00 Corwin Walden [facility] BASIC METABOLIC PANEL (NA, 2022-02-17 00:57:00 Juan Lott [facility] K, CL, CO2, GLUCOSE, BUN, Medica l Branch CREATININE, CA) ACTIVATED PARTIAL THRMPLAS 2022-02-17 00:57:00 Brandie Mckeon [facility] POCT GLUCOSE (AUTOMATED) 2022-02-16 21:27:00 Corwin Walden [facility] TROPONIN I 2022-02-16 18:09:00 Michael Lott [facility] BASIC METABOLIC PANEL (NA, 2022-02-16 18:09:00 Juan Lott [facility] K, CL, CO2, GLUCOSE, BUN, Medica l Branch CREATININE, CA) POCT GLUCOSE (AUTOMATED) 2022-02-16 16:33:00 Corwin Walden [facility] MISCELLANEOUS CULTURE 2022-02-16 13:52:00 Michael Lott [facility] ACTIVATED PARTIAL THRMPLAS 2022-02-16 13:18:00 Osbaldo Aguiar [facility] POCT GLUCOSE (AUTOMATED) 2022-02-16 13:15:00 Corwin Walden [facility] PHOSPHORUS 2022-02-16 06:37:00 [facility] MAGNESIUM 2022-02-16 06:37:00 Kaylie [facility] TROPONIN I 2022-02-16 06:37:00 Kaylie [facility] BASIC METABOLIC PANEL (NA, 2022-02-16 06:37:00 Brandie Mckeon [facility] K, CL, CO2, GLUCOSE, BUN, Medica l Branch CREATININE, CA) CBC WITH DIFF 2022-02-16 06:37:00 Brandie Mckeon [facility] ACTIVATED PARTIAL THRMPLAS 2022-02-16 06:37:00 Brandie Mckeon [facility] POCT GLUCOSE (AUTOMATED) 2022-02-16 01:06:00 Corwin Walden [facility] PHOSPHORUS 2022-02-15 23:35:00 Michael Lott [facility] MAGNESIUM 2022-02-15 23:35:00 Kaylei [facility] TROPONIN I 2022-02-15 23:35:00 Jagdeep Fagan [facility] BASIC METABOLIC PANEL (NA, 2022-02-15 23:35:00 Corwin Walden [facility] K, CL, CO2, GLUCOSE, BUN, Medica l Branch CREATININE, CA) ACTIVATED PARTIAL THRMPLAS 2022-02-15 23:35:00 Osbaldo Aguiar [facility] POCT GLUCOSE (AUTOMATED) 2022-02-15 23:07:00 Corwin Walden [facility] ACTIVATED PARTIAL THRMPLAS 2022-02-15 17:03:00 Juan Lott [facility] BLOOD CULTURE SCREEN 2022-02-15 16:58:00 [facility] PHOSPHORUS 2022-02-15 16:58:00 Kaylie [facility] MAGNESIUM 2022-02-15 16:58:00 Kaylie [facility] TROPONIN I 2022-02-15 16:58:00 [facility] BASIC METABOLIC PANEL (NA, 2022-02-15 16:58:00 Corwin Walden [facility] K, CL, CO2, GLUCOSE, BUN, Medica l Branch CREATININE, CA) POCT GLUCOSE (AUTOMATED) 2022-02-15 16:41:00 Corwin Walden [facility] TRANSTHORACIC ECHO (TTE) 2022-02-15 13:26:00 Corwin Walden [facility] W/ CONTRAST Medical Bran ch POCT GLUCOSE (AUTOMATED) 2022-02-15 13:04:00 Corwin Walden [facility] TROPONIN I 2022-02-15 11:04:00 Kamaljit [facility] PROCALCITONIN 2022-02-15 11:04:00 Michael Lott [facility] MAGNESIUM 2022-02-15 10:14:00 Corwin [facility]den [facility] BASIC METABOLIC PANEL (NA, 2022-02-15 10:14:00 Corwin Walden [facility] K, CL, CO2, GLUCOSE, BUN, Medica l Branch CREATININE, CA) CBC WITHOUT DIFF 2022-02-15 10:14:00 Corwin Walden [facility] ACTIVATED PARTIAL THRMPLAS 2022-02-15 10:14:00 Kamaljit [facility] ACTIVATED PARTIAL THRMPLAS 2022-02-15 03:55:00 Kamaljit [facility] POCT GLUCOSE (AUTOMATED) 2022-02-15 02:36:00 Corwin Walden [facility] MRSA / MSSA SCREEN BY PCR, 2022-02-15 02:28:00 Corwin Walden [facility] VW 2022-02-15 00:53:48 Iram [facility] TROPONIN I 2022-02-15 00:48:00 Iram [facility] BASIC METABOLIC PANEL (NA, 2022-02-15 00:48:00 Corwin Walden [facility] K, CL, CO2, GLUCOSE, BUN, Medica l Branch CREATININE, CA) LACTIC ACID WHOLE BLOOD 2022-02-15 00:48:00 Corwin Walden [facility] EKG-12 LEAD 2022-02-14 22:40:56 Osbaldo Aguiar [facility] CRITICAL CARE 2022-02-14 22:10:00 Osbaldo Aguiar [facility] AC PANEL 20 + LACTIC ACID 2022-02-14 21:25:00 Osbaldo Aguiar [facility] ACTIVATED PARTIAL THRMPLAS 2022-02-14 20:54:00 Osbaldo Aguiar [facility] BLOOD CULTURE SCREEN 2022-02-14 20:53:00 Osbaldo Aguiar [facility] BLOOD CULTURE WORKUP 2022-02-14 20:53:00 Osbaldo Aguiar [facility] GRAM POSITIVE BLOOD 2022-02-14 20:53:00 Osbaldo Aguiar [facility] DNA [facility] PROBE-AEROBIC AC PANEL 20 + LACTIC ACID 2022-02-14 20:23:00 Osbaldo Aguiar [facility] HB ECG ROUTINE & RHYTHM 2022-02-14 20:16:55 Osbaldo Aguiar [facility] XR CHEST 1 VW 2022-02-14 20:08:00 Osbaldo Aguiar [facility] MAGNESIUM 2022-02-14 20:01:00 Osbaldo Aguiar [facility] TROPONIN I 2022-02-14 20:01:00 Osbaldo Aguiar [facility] COMP. METABOLIC PANEL 2022-02-14 20:01:00 Osbaldo Aguiar [facility] ([id number]) Medical Branch CBC WITH DIFF 2022-02-14 20:01:00 Osbaldo Aguiar [facility] PROTHROMBIN TIME / INR 2022-02-14 20:01:00 Osbaldo Aguiar [facility] N-TERMINAL PRO-BNP 2022-02-14 20:01:00 Osbaldo Aguiar [facility] COVID-19 (ID NOW RAPID 2022-02-14 20:01:00 Osbaldo Aguiar [facility] TESTING) Medical Branch LAB ONLY COVID 2022-02-14 20:01:00 Osbaldo Aguiar [facility] INTERPRETATION [facility] CONSENT/REFUSAL FOR 2022-02-14 19:55:28 Doctor Unassigned, [facility] DIAGNOSIS AND TREATMENT [facility] EXTERNAL PROVIDER RECORDS 2022-02-14 05:01:00 Doctor Unassigned, [facility] Name [facility] HOSPITAL ADMISSION 2022-02-14 05:01:00 Doctor Unassigned, [facility] POCT-GLUCOSE METER 2021-11-12 15:41:00 Davis [facility] POCT-GLUCOSE METER 2021-11-12 11:18:00 Davis [facility] POCT-GLUCOSE METER 2021-11-12 06:33:00 Davis [facility] CBC W/PLT COUNT & AUTO 2021-11-12 04:33:00 Juventino Smith [facility] BASIC METABOLIC PANEL 2021-11-12 04:33:00 Juventino Smith [facility] MAGNESIUM 2021-11-12 04:33:00 Juventino Smith [facility] CBC W/PLT COUNT & AUTO 2021-11-12 04:33:00 Juventino Smith [facility] POCT-GLUCOSE METER 2021-11-11 21:38:00 Davis [facility] POCT-GLUCOSE METER 2021-11-11 16:31:[facility]SE [facility]ER 2021-11-11 11:33:00 Davis [facility] NM MYOCARDIAL PERFUSION 2021-11-11 11:00:00 Bebeto [facility], PHARM Center ECG 12-LEAD 2021-11-11 09:26:[address] [facility] POCT-GLUCOSE METER 2021-11-11 06:42:00 Juventino Smith [facility] XR CHEST 1 VIEW PORTABLE / 2021-11-11 05:48:00 Robb Reina [facility] BEDSIDE [facility] CBC W/PLT COUNT & AUTO 2021-11-11 04:06:00 Juventino Smith [facility] BASIC METABOLIC PANEL 2021-11-11 04:06:00 Juventino Smith [facility] MAGNESIUM 2021-11-11 04:06:00 Juventino Smith [facility] CBC W/PLT COUNT & AUTO 2021-11-11 04:06:00 Juventino Smith [facility] POCT-GLUCOSE METER 2021-11-10 20:48:00 Juventino Smith [facility] POCT-GLUCOSE METER 2021-11-10 15:39:00 [facility] Juventino C [facility] POCT-GLUCOSE METER 2021-11-10 11:33:00 Juventino Smith [facility] BASIC METABOLIC PANEL 2021-11-10 06:58:00 Cheri, [facility] HEPATIC FUNCTION PANEL 2021-11-10 06:58:00 [facility] W[facility] & AUTO 2021-11-10 06[facility]58[facility] CBC W/PLT COUNT & AUTO 2021-11-10 06:58:00 [facility] PO[facility]UCOSE METER 2021-11-10 06:54:00 Juventino Smith [facility] POCT-GLUCOSE METER 2021-11-09 21:49:00 Juventino Smith [facility] POCT-GLUCOSE METER 2021-11-09 16:10:00 Juventino Smith [facility] POCT-GLUCOSE METER 2021-11-09 12:19:00 Juventino Smith [facility] VENOUS DOPPLER LEGS 2021-11-09 10:33:00 Velma Bustamante [facility] XR CHEST 1 VIEW PORTABLE / 2021-11-09 07:32:00 Velma Bustamante [facility] POCT-GLUCOSE METER 2021-11-09 07:22:00 Juventino Smith [facility] BASIC METABOLIC PANEL 2021-11-09 04:06:00 Cheri [facility] HEPATIC FUNCTION PANEL 2021-11-09 04:06:00 Cheri [facility] CBC W/PLT COUNT & AUTO 2021-11-09 04:06:00 Cheri [facility] DIFFERENTIAL [facility] HC LAB HIV-1 AG W/HIV-1&2 2021-11-09 04:06:00 Hubert dominic [place] [facility] HEPATITIS PANEL, ACUTE 2021-11-09 04:06:00 Hector Gaspar I [facility] HEMOGLOBIN A1C 2021-11-09 04:06:00 Hector Gaspar [facility] APTT 2021-11-09 04:06:00 Cheri [facility] CBC W/PLT COUNT & AUTO 2021-11-09 04:06:00 Cheri [facility] DIFFERENTIAL [facility] TROPONIN I 2021-11-09 00:21:00 Cheri [facility] ECG 12-LEAD 2021-11-08 21:26:59 Unknown, Hl7 Doctor [facility] ECG 12-LEAD 2021-11-08 21:26:59 Unknown, Hl7 [facility] POCT-GLUCOSE METER 2021-11-08 20:43:00 Juventino Smith [facility] APTT 2021-11-08 [facility]:42[facility] 2021-11-08 16:28[facility] 2021-11-08 16:27:00 Juventino Smith [facility] SPUTUM CULTURE + GRAM 2021-11-08 15:33:00 [facility] COMPLETE 2021-11-08 12:14:[facility] POCT-[facility]UCOSE METER 2021-11-08 11:32:00 Juventino Smith [facility] APTT 2021-11-08 11:22:[facility] 2021-11-08 11:22:[facility] BASIC METABOLIC PANEL 2021-11-08 11:22:00 Chester Jarvis [facility] 2D ECHO W/ DOPPLER 2021-11-08 10:36:38 [facility] (CW/PW/COLOR) [facility] CT CHEST WITHOUT IV 2021-11-08 09:34[facility] NM LUNG PERFUSION SCAN 2021-11-08 09:20:00 [facility] XR CHEST 1 VIEW PORTABLE / 2021-11-08 08:23:00 Chester Jarvis [facility] BEDSIDE Center APTT 2021-11-08 05:53:[facility] LACTIC [facility]ID, VENOUS 2021-11-08 05:07:00 [facility], URINE 2021-11-08 04:17:00 Cheri [facility] URINALYSIS WITH 2021-11-08 04:16:[address] [facility] MICROSCOPIC IF INDICATED [facility] URINALYSIS MICROSCOPIC 2021-11-08 04:16:00 Cheri [facility] TROPONIN I 2021-11-08 04:07:00 Cheri, [facility] BLOOD CULTURE 2021-11-08 04:02:00 Cheri, [facility] POCT-GLUCOSE METER 2021-11-08 04:00:[address] [facility] PROCALCITONIN 2021-11-08 03:59:00 Cheri [facility] BASIC METABOLIC PANEL 2021-11-08 03:58:00 Cheri, [facility] HEPATIC FUNCTION PANEL 2021-11-08 03:58:00 Cheri, [facility] HEMOGLOBIN A1C 2021-11-08 03:58:00 Cheri [facility] PROTHROMBIN TIME/INR 2021-11-08 03:58:00 Cheri [facility] MAGNESIUM 2021-11-08 03:58:00 Cheri, [facility] PHOSPHORUS 2021-11-08 03:58:00 Cheri, [facility] CBC W/PLT COUNT & AUTO 2021-11-08 03:58:[address] [facility] B-TYPE NATRIURETIC FACTOR 2021-11-08 03:58:00 Cheri [facility] (BNP) [facility] D-DIMER 2021-11-08 03:58:00 Cheri, [facility] CBC W/PLT COUNT & AUTO 2021-11-08 03:58:00 [facility]ri, [facility] 12-LEAD 2021-11-08 03:52:58 Cheri, [facility] ECG 12-LEAD 2021-11-08 03:52:58 Cheri, [facility] XR CHEST 1 VIEW PORTABLE / 2021-11-08 03:47:00 Cheri, Jen [facility] XR ABDOMEN/KUB 1 VIEW 2021-11-08 03:47:00 Cheri, [facility] BLOOD GAS, ARTERIAL 2021-11-08 03:29:00 Cheri, [facility] EKG-SCANNED 2021-11-08 00:00:00 ProviderClaude [facility] CT Lung solitary pulm 2020-04-07 00:00:00 [facility] nodule [id number] Plan of Care Planned Activity Planned Date [...] [facility] Pending 00:00:00 pulm nodule 95452 [code = 98106] Diagnostic Test 2020-04-[address] Lung solitary [facility] Pending 00:00:00 pulm nodule 66759 [code = 97994] Future Scheduled [address] [facility] Test 00:00:00 aneurysm screening Medical C enter (procedure) [code = 164459975] Future Scheduled [address] [facility] Test 00:00:00 aneurysm screening Medical C enter (procedure) [code = 941455874] Future Scheduled [address] [facility] Test 00:00:00 aneurysm screening Medical C enter (procedure) [code = 041450093] Future Scheduled [address] [facility] Test 00:00:00 aneurysm screening Medical C enter (procedure) [code = 189279921] Future Scheduled [address] [facility] Test 00:00:00 aneurysm screening Medical C enter (procedure) [code = 591644576] Future Scheduled [address] [facility] Test 00:00:00 aneurysm screening Medical C enter (procedure) [code = 814167697] Future Scheduled 2002 SHINGLES VACCINES (1 [facility] [...] Yuliya ter VACCINE (#1)] Future Scheduled [address] [facility] 00:[facility]:00 malignant neoplasm of [facility] Center colon (procedure) [code = 517115013] Future Scheduled [address] [facility] 00:00:00 [facility] neoplasm [facility] colon (procedure) [code = 672516994] Future Scheduled 1952 Sigmoidoscopy [facility]] [facility] Cent[facility] r Future Scheduled [address] [facility] 00:00:00 (combo) [code = CT Medical C enter Colonography (combo)] Future Scheduled [address] [facility] 00:00:00 malignant neoplasm [facility] colon (procedure) [code = 678805855] Future Scheduled [address] [facility] 00:00:00 malignant neoplasm [facility] colon (procedure) [code = 076548492] Future Scheduled [address] [facility] 00:00:00 malignant neoplasm of [facility] colon (procedure) [code = 507196460] Future Scheduled [address] [facility] 00:00:00 malignant neoplasm [facility] colon (procedure) [code = 088810217] Future Scheduled 1952 Sigmoidoscopy [facility]oscopy] [facility] Cent[facility] r Future Scheduled [address] [facility] 00:00:00 (combo) [code = CT Medical C enter Colonography (combo)] Future Scheduled [address] [facility] 00:00:00 malignant neoplasm [facility] colon (procedure) [code = 320779362] Future Scheduled [address] [facility] 00:00:00 malignant neoplasm [facility] colon (procedure) [code = 321168793] Future Scheduled [address] [facility] 00:00:00 malignant neoplasm [facility] colon (procedure) [code = 727662910] Future Scheduled [address] [facility] 00:00:00 malignant neoplasm [facility] colon (procedure) [code = 035337858] Future Scheduled 1952 Sigmoidoscopy [facility]code [facility] S[facility]oscopy] Medical Cent[facility] r Future Scheduled [address] [facility] 00:00:00 (combo) [code = CT Medical C enter Colonography (combo)] Future Scheduled [address] [facility] 00:00:00 malignant neoplasm [facility] Center colon (procedure) [code = 536867871] Future Scheduled [address] [facility] 00:00:00 malignant neoplasm [facility] colon (procedure) [code = 188722298] Future Scheduled [address] [facility] 00:00:00 malignant neoplasm of [facility] Center colon (procedure) [code = 529944669] Future Scheduled [address] [facility] 00:00:00 malignant neoplasm of [facility] Center colon (procedure) [code = 887415802] Future Scheduled 1952 Sigmoidoscopy [facility]code [facility] Sigmoidoscopy] Medical Kadiee r Future Scheduled [address] [facility] 00:00:00 (combo) [code = CT Medical C enter Colonography (combo)] Future Scheduled [address] [facility] 00:00:00 malignant neoplasm [facility] Center colon (procedure) [code = 043134049] Future Scheduled [address] [facility] 00:00:00 malignant neoplasm [facility] colon (procedure) [code = 498616475] Future Scheduled [address] [facility] 00:00:00 malignant neoplasm [facility] Center colon (procedure) [code = 720783486] Future Scheduled [address] [facility] 00:00:00 malignant neoplasm of [facility] Center colon (procedure) [code = 815552180] Future Scheduled 1952 Sigmoidoscopy [facility]code [facility] S[facility]oscopy] Medical Kadiee r Future Scheduled [address] [facility] 00:00:00 (combo) [code = CT Medical C enter Colonography (combo)] Future Scheduled [address] [facility] 00:00:00 malignant neoplasm [facility] colon (procedure) [code = 558854401] Future Scheduled [address] [facility] 00:00:00 malignant neoplasm [facility] Center colon (procedure) [code = 142697922] Future Scheduled [address] [facility] 00:00:00 malignant neoplasm [facility] colon (procedure) [code = 080367499] Future Scheduled [address] [facility] 00:00:00 malignant neoplasm [facility] colon (procedure) [code = 416993626] Future Scheduled 1952 Sigmoidoscopy [facility]code [facility] S[facility]oscopy] Medical Kadiee r Future Scheduled [address] [facility] 00:00:00 (combo) [code = CT Medical C enter Colonography (combo)] Future Scheduled [address] [facility] 00:00:00 malignant [facility]oplasm [facility] colon (procedure) [code = 186011374] Future Scheduled [address] [facility] 00:00:00 malignant [facility] colon (procedure) [code = 441286448] Encounters Start End Encounter Admission Attending Care Care Encounter Source Date/Time Date/Time Type Type Clinicians Facility Department ID 2022-03-31 2022-03-31 Orders Doctor CASTRO [id number] [facility] 00:00:00 00:00:00 Only Unassigned, MARTHA [id number] [facility] [id number] Rolando as [phone] [address] 2022-03-02 2022-03-02 Orders Doctor CASTRO [id number] [facility] 00:00:00 00:00:00 Only Unassigned, MARTHA [id number] [facility] [id number] Rolando as [phone] [place] [address] [address] 2022-02-26 2022-02-26 Orders Doctor CASTRO [id number] Univers 00:00:00 00:00:00 Only Unassigned, MARTHA [id number] [facility] [id number] Rolando as [id number] [place] [address] [address] 2022-02-23 2022-02-23 Care Marlisa [id number] CLAC [id number] [facility]oted 21:00:00 21:30:00 OnHeather Yi [id number] Medical [id number] 2022-02-23 2022-02-23 Transition ENE Wang 1.2.840.114 [id number] Univers 00:00:00 00:00:00 of Care Nyasia LEHMAN 350.1.13.10 it [place] [id number] [facility] [address] 2022-02-22 2022-02-22 Transition ENE Wang 1.2.840.114 [id number] Univers 00:00:00 00:00:00 of Care Nyasia REDDINGY 350.1.13.10 [place] [id number] [facility] [address] 2022-02-22 2022-02-22 Orders Doctor MATTHEW 1.2.840.114 [id number] Univers 00:00:00 00:00:00 Only Unassigned, MARTHA 350.1.13.10 ity of [place] [facility] 4.2.7.2.686 Rolando as [id number] [facility] [address] 2022-02-20 2022-02-20 Emergency X [facility] ERT [id number] Univers 18:53:00 20:00:00 FELICIA loyola [facility] 2022-02-20 2022-02-20 Emergency [facility] 1.2.840.114 [id number] Univers 18:53:00 20:00:00 Felicia VIRA 350.1.13.10 i [place] [id number] [address] ([facility]) 2022-02-20 2022-02-20 Emergency X [facility] ERT [id number] Univers 18:53:00 20:00:00 FELICIA loyola [facility] 2022-02-14 2022-02-20 [facility] Osbaldo Aguiar [facility] 1.2.840.1 [id number] Univers 14:51:00 17:13:00 Encounter Corwin Walden VIRA 350.1.13.10 ity of Jagdeep Fagan 4.2.7.2.686 T Carmelo Foster [id number] [address] ([facility]) 2022-02-14 2022-02-20 Inpatient X REMA [facility] [id number] Univers 14:51:00 17:13:00 CARMELO galo [facility] 2022-02-17 2022-02-17 Surgery Alexa, [facility] 1.2.840.114 [id number] Univers 09:00:00 11:00:00 [facility] 350.1.13.10 it david ochoa [place] 4.2.7.2.686 Dru MESA [id number] [place] [address] ([facility]) 2022-01-08 2022-01-08 [place] [id number] [facility] 07:10:00 07:10:00 0715 [facility] 2021-12-09 2021-12-09 Outpatient FAYE MILLER, SLE SLE [id number] [facility]H 00:00:00 00:00:00 RAKESHBOOB 2021-12-08 2021-12-08 Telephone Haven Ortiz [facility] [id number] [address] 00:[facility] 00[facility]00 [facility] 2021-12-08 2021-12-08 Telephone Haven Ortiz [facility] [id number] [facility] 00:00[facility]00 00:00:00 [facility] 2021-11-08 2021-11-12 [facility] [id number] [facility] 03[facility]10:00 20:10:00 [facility] 2021-11-08 2021-11-12 Inpatient ER DAVIS [facility] Medical ICU [id number] [facility] 03:10:00 20:10:00 [facility] 2021-11-08 2021-11-12 [facility] [id number] [facility] 03:10:00 20:10:00 [facility] 2021-11-10 2021-11-10 Travel [facility] [id number] [facility] 00:[facility] 00[facility]00 [facility] 2021-11-10 2021-11-10 Travel [facility] [id number] [facility] 00:[facility] 00:[facility]:00 [facility] 2021-10-11 2021-10-11 Emergency X SID, [facility] ERT [id number] Univers 05:52:00 06:48:00 HARDEEP ity [facility] 2021-10-11 2021-10-11 Emergency Sid [facility] 1.2.823.839 [id number] Univers 05:52:00 06:48:00 Hardeep Us PETALUMA 350.1.13.10 ity [facility] 4.2.7.2.686 [facility] [id number] [facility] [address] 2020-11-21 2020-11-21 [place] [id number] 021 [facility] 08:00:00 08:00:00 0528 Medica l Group 2020-05-05 2020-05-05 Outpatient JOHN, [facility] PUL 7500 [facility] 13:21:00 15:55:00 PASTORA 2020-04-15 2020-04-15 Appointmen DOLLY FRANCIS Cardiology [id number] [place] 14:00:00 14:00:00 t; Carlos DESIR - [facility] Derick FRANCIS M.D. [facility] 2020-04-07 2020-04-07 Appointmen DOLLY LOPEZ Pulmonary & [id number] DC 13:30:00 13:30:00 t; PASTORA LOPEZ, Sleep Physi ci Carlos GUILLORY M.D. Results Test Description Test Time Test Comments Results Result Comments Source BLOOD CULTURE SCREEN 2022-02-20 19:01:45 Test Item Value Reference Range Interpretation Comme nts Blood Culture-Aerobic (test No organisms isolated No growth Previous preliminary code = 95383-8) verified res ult was Culture In Prog [...] No growth Previous preliminary (test code = 13795-2) verifi ed result was Culture In Prog [...] CDT Lab Interpretation (test Normal code = 22826-3) [facility] CULTURE [id number] 19:01:45 Test Item Value Reference Range Interpretation Comments Blood Culture-Aerobic No organisms No growth Previo us (test code = 69618-5) isolated prelim inary verified result was Culture [...] Culture-Anaerobic isolated preliminar y (test code = 92023-8) verifi ed result was Culture In Progress [...] CDT Lab Interpretation Normal (test code = 13964-2) [facility] CULTURE [id number] 19:01:45 Test Item Value Reference Range Interpretation Comments Blood Culture-Aerobic No organisms No growth Previo us (test code = 94148-6) isolated prelim inary verified result was Culture [...] Culture-Anaerobic isolated preliminar y (test code = 60691-4) verifi ed result was Culture In Progress [...] CDT Lab Interpretation Normal (test code = 66541-2) [facility] CULTURE [id number] 19:01:45 Test Item Value Reference Range Interpretation Comments Blood Culture-Aerobic No organisms No growth Previo us (test code = 86580-2) isolated prelim inary verified result was Culture [...] Culture-Anaerobic isolated preliminar y (test code = 68495-5) verifi ed result was Culture In Progress [...] CDT Lab Interpretation Normal (test code = 39513-1) [facility] GLUCOSE (AUTOMATED)2022-02-20 18:40:11 Test Item Value Reference Range Interpretation Comments POCT GLU (test code = 8049796798) 168 mg/dL 70-110 H Lab Interpretation (test code = Abnormal 00855-4) [facility] GLUCOSE (AUTOMATED)2022-02-20 18:40:11 Test Item Value Reference Range Interpretation Comments POCT GLU (test code = 5750490892) 168 mg/dL 70-110 H Lab Interpretation (test code = Abnormal 54257-5) [facility] GLUCOSE (AUTOMATED)2022-02-20 14:46:14 Test Item Value Reference Range Interpretation Comments POCT GLU (test code = 8366965016) 235 mg/dL 70-110 H Lab Interpretation (test code = Abnormal 15813-6) [facility] GLUCOSE (AUTOMATED)2022-02-20 14:46:14 Test Item Value Reference Range Interpretation Comments POCT GLU (test code = 8560181750) 235 mg/dL 70-110 H Lab Interpretation (test code = Abnormal 76603-9) [facility] METABOLIC PANEL (NA, K, CL, CO2, GLUCOSE, BUN, CREATININE, CA)2022-02-20 02:03:45 Test Item Value Reference Range Interpretation Comments NA (test code = 131 mmol/L 135-145 L 5544149107) K (test code = 4.9 mmol/L 3.5-5.0 9754158592) CL (test code = 102 mmol/L 98-108 9725917683) CO2 TOTAL (test code = 25 mmol/L 23-31 2809682896) AGAP (test code = 2-16 5967808056) BUN (test code = 52 mg/dL 7-23 H 0237837133) GLUCOSE (test code = 143 mg/dL 70-110 H 9259924908) CREATININE (test code = 1.40 mg/dL 0.60-1.25 H 6637537592) CALCIUM (test code = 8.3 mg/dL 8.6-10.6 L 5800686938) eGFR (test code = mL/min/1.73m2 8543805004) JUAN (test code = JUAN) Association of [...] tests). Lab Interpretation Abnormal (test code = 31668-6) [facility] METABOLIC PANEL (NA, K, CL, CO2, GLUCOSE, BUN, CREATININE, CA)2022-02-20 02:03:45 Test Item Value Reference Range Interpretation Comments NA (test code = 131 mmol/L 135-145 L 3574451319) K (test code = 4.9 mmol/L 3.5-5.0 1144913918) CL (test code = 102 mmol/L 98-108 6330779489) CO2 TOTAL (test code = 25 mmol/L 23-31 3473227628) AGAP (test code = 2-16 8468174630) BUN (test code = 52 mg/dL 7-23 H 9829011099) GLUCOSE (test code = 143 mg/dL 70-110 H 2646393397) CREATININE (test code = 1.40 mg/dL 0.60-1.25 H 1755843432) CALCIUM (test code = 8.3 mg/dL 8.6-10.6 L 9742204643) eGFR (test code = mL/min/1.73m2 0086429176) JUAN (test code = JUAN) Association of [...] tests). Lab Interpretation Abnormal (test code = 62406-7) [facility] GLUCOSE (AUTOMATED)2022-02-20 01:02:55 Test Item Value Reference Range Interpretation Comments POCT GLU (test code = 153 mg/dL 70-110 H Notifi ed Provider [id number]) Lab Interpretation (test Abnormal code = 92180-1) [facility] GLUCOSE (AUTOMATED)2022-02-20 01:02:55 Test Item Value Reference Range Interpretation Comments POCT GLU (test code = 153 mg/dL 70-110 H Notifi ed Provider [id number]) Lab Interpretation (test Abnormal code = 00975-9) [facility] GLUCOSE (AUTOMATED)2022-02-19 22:29:08 Test Item Value Reference Range Interpretation Comments POCT GLU (test code = 6427484481) 137 mg/dL 70-110 H Lab Interpretation (test code = Abnormal 05923-1) [facility] GLUCOSE (AUTOMATED)2022-02-19 22:29:08 Test Item Value Reference Range Interpretation Comments POCT GLU (test code = 4745410998) 137 mg/dL 70-110 H Lab Interpretation (test code = Abnormal 00307-4) [facility] GLUCOSE (AUTOMATED)2022-02-19 16:28:48 Test Item Value Reference Range Interpretation Comments POCT GLU (test code = 6877719477) 200 mg/dL 70-110 H Lab Interpretation (test code = Abnormal 46590-5) [facility] GLUCOSE (AUTOMATED)2022-02-19 16:28:48 Test Item Value Reference Range Interpretation Comments POCT GLU (test code = 8898262039) 200 mg/dL 70-110 H Lab Interpretation (test code = Abnormal 27321-2) [facility] GLUCOSE (AUTOMATED)2022-02-19 13:19:05 Test Item Value Reference Range Interpretation Comments POCT GLU (test code = 3534879599) 152 mg/dL 70-110 H Lab Interpretation (test code = Abnormal 78245-1) [facility] GLUCOSE (AUTOMATED)2022-02-19 13:19:05 Test Item Value Reference Range Interpretation Comments POCT GLU (test code = 7748976903) 152 mg/dL 70-110 H Lab Interpretation (test code = Abnormal 01553-3) [facility] GLUCOSE (AUTOMATED)2022-02-19 01:15:20 Test Item Value Reference Range Interpretation Comments POCT GLU (test code = 215 mg/dL 70-110 H Notifi ed Provider [id number]) Lab Interpretation (test Abnormal code = 17065-7) [facility] GLUCOSE (AUTOMATED)2022-02-19 01:15:20 Test Item Value Reference Range Interpretation Comments POCT GLU (test code = 215 mg/dL 70-110 H Notifi ed Provider [id number]) Lab Interpretation (test Abnormal code = 33333-6) [facility] GLUCOSE (AUTOMATED)2022-02-18 21:59:14 Test Item Value Reference Range Interpretation Comments POCT GLU (test code = 3530642911) 171 mg/dL 70-110 H Lab Interpretation (test code = Abnormal 43398-6) [facility] GLUCOSE (AUTOMATED)2022-02-18 21:59:14 Test Item Value Reference Range Interpretation Comments POCT GLU (test code = 5645099184) 171 mg/dL 70-110 H Lab Interpretation (test code = Abnormal 80996-0) [facility] 20:[facility]46 Test Item Value Reference Interpretation Comments Range Procalcitonin (test 0.15 ng/mL See_Comment H [Automa josh code = 7583794411) message] The system which generated this result [...] lung abscess/empyema. For further information please refer to:[email or web address] p Lab Interpretation Abnormal (test code = 93036-5) [facility] 20:40:46 Test Item Value Reference Interpretation Comments Range Procalcitonin (test 0.15 ng/mL See_Comment H [Automa josh code = 9784018122) message] The system which generated this result [...] lung abscess/empyema. For further information please refer to:[email or web address] p Lab Interpretation Abnormal (test code = 15510-6) [facility]22-[facility]18 17:32:13 Test Item Value Reference Range Interpretation Comments POCT GLU (test code = 9779611079) 129 mg/dL 70-110 H Lab Interpretation (test code = Abnormal 89869-0) [facility] GLUCOSE (AUTOMATED)2022-02-18 17:32:13 Test Item Value Reference Range Interpretation Comments POCT GLU (test code = 6595310062) 129 mg/dL 70-110 H Lab Interpretation (test code = Abnormal 94335-4) [facility] GLUCOSE (AUTOMATED)2022-02-18 12:59:31 Test Item Value Reference Range Interpretation Comments POCT GLU (test code = 6694459817) 89 mg/dL 70-110 Lab Interpretation (test code = Normal 92885-9) [facility] GLUCOSE (AUTOMATED)2022-02-18 12:59:31 Test Item Value Reference Range Interpretation Comments POCT GLU (test code = 8550776560) 89 mg/dL 70-110 Lab Interpretation (test code = Normal 26826-7) [facility] METABOLIC PANEL (NA, K, CL, CO2, GLUCOSE, BUN, CREATININE, CA)2022-02-18 09:38:02 Test Item Value Reference Range Interpretation Comments NA (test code = 133 mmol/L 135-145 L 8073381968) K (test code = 4.5 mmol/L 3.5-5.0 5213859815) CL (test code = 106 mmol/L 98-108 8098304744) CO2 TOTAL (test code = 23 mmol/L 23-31 4772510761) AGAP (test code = 2-16 0723370647) BUN (test code = 51 mg/dL 7-23 H 0742091864) GLUCOSE (test code = 81 mg/dL 70-110 1655816791) CREATININE (test code = 1.49 mg/dL 0.60-1.25 H 8107645534) CALCIUM (test code = 8.1 mg/dL 8.6-10.6 L 8189215091) eGFR (test code = mL/min/1.73m2 3349510919) JUAN (test code = JUAN) Association of [...] tests). Lab Interpretation Abnormal (test code = 79551-2) [facility] METABOLIC PANEL (NA, K, CL, CO2, GLUCOSE, BUN, CREATININE, CA)2022-02-18 09:38:02 Test Item Value Reference Range Interpretation Comments NA (test code = 133 mmol/L 135-145 L 1916819392) K (test code = 4.5 mmol/L 3.5-5.0 4877844085) CL (test code = 106 mmol/L 98-108 8436216151) CO2 TOTAL (test code = 23 mmol/L 23-31 8858358329) AGAP (test code = 2-16 7783859086) BUN (test code = 51 mg/dL 7-23 H 4513558722) GLUCOSE (test code = 81 mg/dL 70-110 3764457951) CREATININE (test code = 1.49 mg/dL 0.60-1.25 H 0187510623) CALCIUM (test code = 8.1 mg/dL 8.6-10.6 L 6239790277) eGFR (test code = mL/min/1.73m2 6415318630) JUAN (test code = JUAN) Association of [...] tests). Lab Interpretation Abnormal (test code = 81120-3) [facility] WITH [id number] 09:17:24 Test Item Value Reference Range Interpretation Comments WBC (test code = See_Comment [Automated 8753-2) message] The sy stem which generated this result transmitted reference range : 4.20 - 10.70 10*3/?L. The reference range was not used to interpret this result as normal/abnormal . RBC (test code = See_Comment L [Automated 946-8) message] The sy stem which generated this [...] RDW-SD (test code = 47.7 fL 38.5-51.6 34423-1) RDW-CV (test code = 14.3 % 12.1-15.4 788-0) PLT (test code = See_Comment [Automated 777-3) message] The sy stem which generated this result transmitted reference range : 150 - 328 10*3/ ?L. The reference r maxi was not used to interpret this result as normal/abnormal . MPV (test code = 10.0 fL 9.8-13.0 70312-4) NRBC/100 WBC (test See_Comment [Automat ed code = 9419154788) message] The system which generated this result transmitted reference range : 0.0 - 10.0 /100 WBCs. The refer ence range was not u sed to interpret th is result as normal/abnormal . NRBC x10^3 (test code See_Comment [Auto mated = 5136325301) message] The s ystem which generated this result transmitted reference range : 10*3/?L. The reference range was not used to interpret this result as normal/abnormal . GRAN MAT (NEUT) % 55.8 % (test code = 770-8) IMM GRAN % (test code 4.10 % = 8872489565) LYMPH % (test code = 30.1 % 736-9) MONO % (test code = 7.1 % 5905-5) EOS % (test code = 2.7 % 713-8) BASO % (test code = 0.2 % 706-2) GRAN MAT x10^3(ANC) 5.15 10*3/uL 1.99-6.95 (test code = 7978976931) IMM GRAN x10^3 (test 0.38 10*3/uL 0.00-0.06 H code = 1020957502) LYMPH x10^3 (test code 2.78 10*3/uL 1.09-3.23 = 731-0) MONO x10^3 (test code 0.66 10*3/uL 0.36-1.02 = 742-7) EOS x10^3 (test code = 0.25 10*3/uL 0.06-0.53 711-2) BASO x10^3 (test code 0.01-0.09 = 704-7) TOXIC CHANGES (test Present A code = 803-7) Lab Interpretation Abnormal (test code = 43527-4) [facility] WITH [id number] 09:17:24 Test Item Value Reference Range Interpretation [...] RDW-SD (test code = 47.7 fL 38.5-51.6 83154-5) RDW-CV (test code = 14.3 % 12.1-15.4 788-0) PLT (test code = See_Comment [Automated 777-3) message] The sy stem which generated this result transmitted reference range : 150 - 328 10*3/ ?L. The reference r maxi was not used to interpret this result as normal/abnormal . MPV (test code = 10.0 fL 9.8-13.0 70471-9) NRBC/100 WBC (test See_Comment [Automat ed code = 4261050794) message] The system which generated this result transmitted reference range : 0.0 - 10.0 /100 WBCs. The refer ence range was not u sed to interpret th is result as normal/abnormal . NRBC x10^3 (test code See_Comment [Auto mated = 5259862322) message] The s ystem which generated this result transmitted reference range : 10*3/?L. The reference range was not used to interpret this result as normal/abnormal . GRAN MAT (NEUT) % 55.8 % (test code = 770-8) IMM GRAN % (test code 4.10 % = 6947714888) LYMPH % (test code = 30.1 % 736-9) MONO % (test code = 7.1 % 5905-5) EOS % (test code = 2.7 % 713-8) BASO % (test code = 0.2 % 706-2) GRAN MAT x10^3(ANC) 5.15 10*3/uL 1.99-6.95 (test code = 5787660984) IMM GRAN x10^3 (test 0.38 10*3/uL 0.00-0.06 H code = 8942005947) LYMPH x10^3 (test code 2.78 10*3/uL 1.09-3.23 = 731-0) MONO x10^3 (test code 0.66 10*3/uL 0.36-1.02 = 742-7) EOS x10^3 (test code = 0.25 10*3/uL 0.06-0.53 711-2) BASO x10^3 (test code 0.01-0.09 = 704-7) TOXIC CHANGES (test Present A code = 803-7) Lab Interpretation Abnormal (test code = 47978-9) [facility] GLUCOSE (AUTOMATED)2022-02-18 01:16:25 Test Item Value Reference Range Interpretation Comments POCT GLU (test code = 5153667921) 170 mg/dL 70-110 H Lab Interpretation (test code = Abnormal 09813-2) [facility] GLUCOSE (AUTOMATED)2022-02-18 01:16:25 Test Item Value Reference Range Interpretation Comments POCT GLU (test code = 0512355805) 170 mg/dL 70-110 H Lab Interpretation (test code = Abnormal 00689-1) [facility] GLUCOSE (AUTOMATED)2022-02-17 21:45:32 Test Item Value Reference Range Interpretation Comments POCT GLU (test code = 0568932514) 117 mg/dL 70-110 H Lab Interpretation (test code = Abnormal 76731-1) [facility] GLUCOSE (AUTOMATED)2022-02-17 21:45:32 Test Item Value Reference Range Interpretation Comments POCT GLU (test code = 4517603580) 117 mg/dL 70-110 H Lab Interpretation (test code = Abnormal 32985-0) [facility]58 Test Item Value Reference Range Interpretation Comments APTT Patient (test code See_Comment H [Au tomated message] = 3173-2) The system [employer] generated this result transmitted ref erence range: 26 - 36 Seconds. The reference range was not used to int erpret this result as normal/abnormal . Lab Interpretation (test Abnormal code = 80958-8) [facility] 14:10:58 Test Item Value Reference Range Interpretation Comments APTT Patient (test code See_Comment H [Au tomated message] = 3173-2) The system [employer] generated this result transmitted ref erence range: 26 - 36 Seconds. The reference range was not used to int erpret this result as normal/abnormal . Lab Interpretation (test Abnormal code = 64030-2) [facility] GLUCOSE (AUTOMATED)2022-02-17 13:01:31 Test Item Value Reference Range Interpretation Comments POCT GLU (test code = 6513629244) 83 mg/dL 70-110 Lab Interpretation (test code = Normal 32920-8) [facility] GLUCOSE (AUTOMATED)2022-02-17 13:01:31 Test Item Value Reference Range Interpretation Comments POCT GLU (test code = 2265189725) 83 mg/dL 70-110 Lab Interpretation (test code = Normal 30850-7) [facility] WITH [id number] 09:49:28 Test Item Value Reference Range Interpretation Comments WBC (test code = See_Comment [Automated 6690-2) message] The Wi[employer] stem which generated this result transmitted reference [...] RDW-SD (test code = 48.0 fL 38.5-51.6 01714-9) RDW-CV (test code = 14.4 % 12.1-15.4 788-0) PLT (test code = See_Comment [Automated 777-3) message] The sy stem which generated this result transmitted reference range : 150 - 328 10*3/ ?L. The reference r maxi was not used to interpret this result as normal/abnormal . MPV (test code = 10.1 fL 9.8-13.0 60849-1) NRBC/100 WBC (test See_Comment [Automat ed code = 6686421578) message] The system which generated this result transmitted reference range : 0.0 - 10.0 /100 WBCs. The refer ence range was not u sed to interpret th is result as normal/abnormal . NRBC x10^3 (test code See_Comment [Auto mated = 2557711275) message] The s ystem which generated this result transmitted reference range : 10*3/?L. The reference range was not used to interpret this result as normal/abnormal . SEG % (test code = 60 % 33-76 77710-2) MYELO % (test code = 5 % See_Comment H [Autom ated 52861-5) message] The sy stem which generated this result transmitted reference range : <=0. The refere nce range was not u sed to interpret th is result as normal/abnormal . LYMPH % (test code = 17 % 14-54 61871-6) LG GRAN LYMPH % (test 9 % See_Comment H [Auto mated code = 89079-4) message] The system which generated this result transmitted reference range : <=0. The refere nce range was not u sed to interpret th is result as normal/abnormal . MONO % (test code = 7 % 0-4 H 88118-3) EOS % (test code = 2 % 0-3 14421-7) ANC (test code = 6.32 10*3/uL 1.99-6.95 753-4) TOXIC CHANGES (test Present A code = 803-7) Lab Interpretation Abnormal (test code = 17598-6) [facility] WITH [id number] 09:49:28 Test Item Value Reference Range Interpretation [...] RDW-SD (test code = 48.0 fL 38.5-51.6 20108-1) RDW-CV (test code = 14.4 % 12.1-15.4 788-0) PLT (test code = See_Comment [Automated 777-3) message] The sy stem which generated this result transmitted reference range : 150 - 328 10*3/ ?L. The reference r maxi was not used to interpret this result as normal/abnormal . MPV (test code = 10.1 fL 9.8-13.0 68951-4) NRBC/100 WBC (test See_Comment [Automat ed code = 4492678003) message] The system which generated this result transmitted reference range : 0.0 - 10.0 /100 WBCs. The refer ence range was not u sed to interpret th is result as normal/abnormal . NRBC x10^3 (test code See_Comment [Auto mated = 9129604991) message] The s ystem which generated this result transmitted reference range : 10*3/?L. The reference range was not used to interpret this result as normal/abnormal . SEG % (test code = 60 % 33-76 91201-0) MYELO % (test code = 5 % See_Comment H [Autom ated 52798-4) message] The sy stem which generated this result transmitted reference range : <=0. The refere nce range was not u sed to interpret th is result as normal/abnormal . LYMPH % (test code = 17 % 14-54 05898-1) LG GRAN LYMPH % (test 9 % See_Comment H [Auto mated code = 14174-3) message] The system which generated this result transmitted reference range : <=0. The refere nce range was not u sed to interpret th is result as normal/abnormal . MONO % (test code = 7 % 0-4 H 92244-8) EOS % (test code = 2 % 0-3 58437-3) ANC (test code = 6.32 10*3/uL 1.99-6.95 753-4) TOXIC CHANGES (test Present A code = 803-7) Lab Interpretation Abnormal (test code = 79892-7) [facility] METABOLIC PANEL (NA, K, CL, CO2, GLUCOSE, BUN, CREATININE, CA)2022-02-17 09:47:07 Test Item Value Reference Range Interpretation Comments NA (test code = 130 mmol/L 135-145 L 9826562519) K (test code = 4.5 mmol/L 3.5-5.0 0823435615) CL (test code = 103 mmol/L 98-108 7244077525) CO2 TOTAL (test code = 26 mmol/L 23-31 6128901599) AGAP (test code = 2-16 L 4224287227) BUN (test code = 58 mg/dL 7-23 H 8464112432) GLUCOSE (test code = 92 mg/dL 70-110 8563755243) CREATININE (test code = 1.55 mg/dL 0.60-1.25 H 9323155582) CALCIUM (test code = 7.8 mg/dL 8.6-10.6 L 1187580254) eGFR (test code = mL/min/1.73m2 2363391972) JUAN (test code = JUAN) Association of [...] tests). Lab Interpretation Abnormal (test code = 88273-5) [facility] Test Item Value Reference Range Interpretation Comments MAGNESIUM (test code = 6462997235) 2.2 mg/dL 1.7-2.4 Lab Interpretation (test code = Normal 92748-0) [facility] METABOLIC PANEL (NA, K, CL, CO2, GLUCOSE, BUN, CREATININE, CA)2022-02-17 09:47:07 Test Item Value Reference Range Interpretation Comments NA (test code = 130 mmol/L 135-145 L 0557316439) K (test code = 4.5 mmol/L 3.5-5.0 6798967796) CL (test code = 103 mmol/L 98-108 1249784248) CO2 TOTAL (test code = 26 mmol/L 23-31 4725181429) AGAP (test code = 2-16 L 8041648620) BUN (test code = 58 mg/dL 7-23 H 4024665866) GLUCOSE (test code = 92 mg/dL 70-110 5996608502) CREATININE (test code = 1.55 mg/dL 0.60-1.25 H 5806676697) CALCIUM (test code = 7.8 mg/dL 8.6-10.6 L 6665366731) eGFR (test code = mL/min/1.73m2 0359302142) JUAN (test code = JUAN) Association of [...] tests). Lab Interpretation Abnormal (test code = 56876-2) [facility] Test Item Value Reference Range Interpretation Comments MAGNESIUM (test code = 9288031544) 2.2 mg/dL 1.7-2.4 Lab Interpretation (test code = Normal 78195-5) [facility] (NA, K, CL, CO2, GLUCOSE, BUN, CREATININE, CA)2022-02-17 01:31:26 Test Item Value Reference Range Interpretation Comments NA (test code = 128 mmol/L 135-145 L 6456760622) K (test code = 4.7 mmol/L 3.5-5.0 3339732636) CL (test code = 100 mmol/L 98-108 0443011724) CO2 TOTAL (test code = 26 mmol/L 23-31 4269163716) AGAP (test code = 2-16 1660381245) BUN (test code = 61 mg/dL 7-23 H 9415934479) GLUCOSE (test code = 129 mg/dL 70-110 H 4194528711) CREATININE (test code = 1.73 mg/dL 0.60-1.25 H 0338435461) CALCIUM (test code = 7.8 mg/dL 8.6-10.6 L 4373416982) eGFR (test code = mL/min/1.73m2 6618423721) JUAN (test code = JUAN) Association of [...] tests). Lab Interpretation Abnormal (test code = 23140-7) [facility] METABOLIC PANEL (NA, K, CL, CO2, GLUCOSE, BUN, CREATININE, CA)2022-02-17 01:31:26 Test Item Value Reference Range Interpretation Comments NA (test code = 128 mmol/L 135-145 L 9652475324) K (test code = 4.7 mmol/L 3.5-5.0 3370686510) CL (test code = 100 mmol/L 98-108 3756206235) CO2 TOTAL (test code = 26 mmol/L 23-31 9584397266) AGAP (test code = 2-16 4278271014) BUN (test code = 61 mg/dL 7-23 H 8421474597) GLUCOSE (test code = 129 mg/dL 70-110 H 7993027073) CREATININE (test code = 1.73 mg/dL 0.60-1.25 H 0569680690) CALCIUM (test code = 7.8 mg/dL 8.6-10.6 L 3524759177) eGFR (test code = mL/min/1.73m2 1624400117) JUAN (test code = JUAN) Association of [...] tests). Lab Interpretation Abnormal (test code = 70868-9) [facility] [id number] 01:27:27 Test Item Value Reference Range Interpretation Comments APTT Patient (test code See_Comment H [Au tomated message] = 3173-2) The system [employer] generated this result transmitted ref erence range: 26 - 36 Seconds. The reference range was not used to int erpret this result as normal/abnormal . Lab Interpretation (test Abnormal code = 13006-7) [facility] [id number] 01:27:27 Test Item Value Reference Range Interpretation Comments APTT Patient (test code See_Comment H [Au tomated message] = 3173-2) The system [employer] generated this result transmitted ref erence range: 26 - 36 Seconds. The reference range was not used to int erpret this result as normal/abnormal . Lab Interpretation (test Abnormal code = 78878-2) [facility]2022-02-17 01:02:53 Test Item Value Reference Range Interpretation Comments POCT GLU (test code = 4423806701) 130 mg/dL 70-110 H Lab Interpretation (test code = Abnormal 58697-6) [facility] GLUCOSE (AUTOMATED)2022-02-17 01:02:53 Test Item Value Reference Range Interpretation Comments POCT GLU (test code = 5858164578) 130 mg/dL 70-110 H Lab Interpretation (test code = Abnormal 32461-5) [facility] GLUCOSE (AUTOMATED)2022-02-16 21:30:00 Test Item Value Reference Range Interpretation Comments POCT GLU (test code = 6642001576) 125 mg/dL 70-110 H Lab Interpretation (test code = Abnormal 03180-9) [facility] GLUCOSE (AUTOMATED)2022-02-16 21:30:00 Test Item Value Reference Range Interpretation Comments POCT GLU (test code = 4457218307) 125 mg/dL 70-110 H Lab Interpretation (test code = Abnormal 14027-3) [facility] [id number] 18:47:50 Test Item Value Reference Interpretation Comments Range TROPONIN I (test 17.600 ng/mL See_Comment H [Automated code = 1304268170) message] The system which generated this result [...] biotin. Lab Interpretation Abnormal (test code = 45745-5) [facility] [id number] 18:47:50 Test Item Value Reference Interpretation Comments Range TROPONIN I (test 17.600 ng/mL See_Comment H [Automated code = 9298495562) message] The system which generated this result [...] biotin. Lab Interpretation Abnormal (test code = 38419-6) [facility] (NA, K, CL, CO2, GLUCOSE, BUN, CREATININE, CA)2022-02-16 18:35:51 Test Item Value Reference Range Interpretation Comments NA (test code = 129 mmol/L 135-145 L 9241577183) K (test code = 4.8 mmol/L 3.5-5.0 7537863613) CL (test code = 100 mmol/L 98-108 3118651026) CO2 TOTAL (test code = 27 mmol/L 23-31 3851844641) AGAP (test code = 2-16 7185131847) BUN (test code = 62 mg/dL 7-23 H 2095587282) GLUCOSE (test code = 121 mg/dL 70-110 H 3048462975) CREATININE (test code = 1.62 mg/dL 0.60-1.25 H 7608036030) CALCIUM (test code = 8.0 mg/dL 8.6-10.6 L 1498250486) eGFR (test code = mL/min/1.73m2 1236203983) JUAN (test code = JUAN) Association of [...] tests). Lab Interpretation Abnormal (test code = 28343-2) [facility] (NA, K, CL, CO2, GLUCOSE, BUN, CREATININE, CA)2022-02-16 18:35:51 Test Item Value Reference Range Interpretation Comments NA (test code = 129 mmol/L 135-145 L 2608067442) K (test code = 4.8 mmol/L 3.5-5.0 8624173373) CL (test code = 100 mmol/L 98-108 8121306014) CO2 TOTAL (test code = 27 mmol/L 23-31 0349133479) AGAP (test code = 2-16 8667599294) BUN (test code = 62 mg/dL 7-23 H 9365379732) GLUCOSE (test code = 121 mg/dL 70-110 H 4883282792) CREATININE (test code = 1.62 mg/dL 0.60-1.25 H 4924005550) CALCIUM (test code = 8.0 mg/dL 8.6-10.6 L 8647484377) eGFR (test code = mL/min/1.73m2 4670742412) JUAN (test code = JUAN) Association of [...] tests). Lab Interpretation Abnormal (test code = 08169-0) [facility] GLUCOSE (AUTOMATED)2022-02-16 16:35:47 Test Item Value Reference Range Interpretation Comments POCT GLU (test code = 1405447651) 163 mg/dL 70-110 H Lab Interpretation (test code = Abnormal 08304-0) [facility] GLUCOSE (AUTOMATED)2022-02-16 16:35:47 Test Item Value Reference Range Interpretation Comments POCT GLU (test code = 2471361145) 163 mg/dL 70-110 H Lab Interpretation (test code = Abnormal 77636-6) [facility]2022-02-16 14:04:01 Test Item Value Reference Range Interpretation Comments APTT Patient (test code See_Comment H [Au tomated message] = 3173-2) The system [employer] generated this result transmitted ref erence range: 26 - 36 Seconds. The reference range was not used to int erpret this result as normal/abnormal . Lab Interpretation (test Abnormal code = 11741-5) [facility]2022-02-16 14:04:01 Test Item Value Reference Range Interpretation Comments APTT Patient (test code See_Comment H [Au tomated message] = 3173-2) The system [employer] generated this result transmitted ref erence range: 26 - 36 Seconds. The reference range was not used to int erpret this result as normal/abnormal . Lab Interpretation (test Abnormal code = 13543-5) [facility] GLUCOSE (AUTOMATED)2022-02-16 13:18:42 Test Item Value Reference Range Interpretation Comments POCT GLU (test code = 0535085520) 108 mg/dL 70-110 Lab Interpretation (test code = Normal 69636-9) [facility] GLUCOSE (AUTOMATED)2022-02-16 13:18:42 Test Item Value Reference Range Interpretation Comments POCT GLU (test code = 2649353602) 108 mg/dL 70-110 Lab Interpretation (test code = Normal 75627-9) [facility] [id number] 07:40:53 Test Item Value Reference Interpretation Comments Range TROPONIN I (test 27.000 ng/mL See_Comment H [Automated code = 0058804586) message] The system which generated this result [...] biotin. Lab Interpretation Abnormal (test code = 36046-3) [facility] [id number] 07:40:53 Test Item Value Reference Interpretation Comments Range TROPONIN I (test 27.000 ng/mL See_Comment H [Automated code = 5294730573) message] The system which generated this result transmitted reference range : <=0.034. The reference range was not used to interpret this result as normal/abnormal . JUAN (test code = Reference (Normal) JAUN) Range (defined by the 99th percentile reference [...] biotin. Lab Interpretation Abnormal (test code = 01167-9) [facility] METABOLIC PANEL (NA, K, CL, CO2, GLUCOSE, BUN, CREATININE, CA)2022-02-16 07:32:56 Test Item Value Reference Range Interpretation Comments NA (test code = 129 mmol/L 135-145 L 9864796693) K (test code = 4.8 mmol/L 3.5-5.0 0785808672) CL (test code = 99 mmol/L 98-108 8615424768) CO2 TOTAL (test code = 28 mmol/L 23-31 8116113788) AGAP (test code = 2-16 6979493751) BUN (test code = 60 mg/dL 7-23 H 9005948400) GLUCOSE (test code = 124 mg/dL 70-110 H 7713066221) CREATININE (test code = 1.96 mg/dL 0.60-1.25 H 8430155615) CALCIUM (test code = 8.2 mg/dL 8.6-10.6 L 1395986333) eGFR (test code = mL/min/1.73m2 4269003897) JUAN (test code = JUAN) Association of [...] tests). Lab Interpretation Abnormal (test code = 73247-2) [facility] METABOLIC PANEL (NA, K, CL, CO2, GLUCOSE, BUN, CREATININE, CA)2022-02-16 07:32:56 Test Item Value Reference Range Interpretation Comments NA (test code = 129 mmol/L 135-145 L 7824589041) K (test code = 4.8 mmol/L 3.5-5.0 5054147976) CL (test code = 99 mmol/L 98-108 3214044749) CO2 TOTAL (test code = 28 mmol/L 23-31 1189793231) AGAP (test code = 2-16 0133931751) BUN (test code = 60 mg/dL 7-23 H 4663858995) GLUCOSE (test code = 124 mg/dL 70-110 H 7209732877) CREATININE (test code = 1.96 mg/dL 0.60-1.25 H 8057651034) CALCIUM (test code = 8.2 mg/dL 8.6-10.6 L 2350666884) eGFR (test code = mL/min/1.73m2 8054294387) JUAN (test code = JUAN) Association of [...] tests). Lab Interpretation Abnormal (test code = 34946-1) [facility] 07:29:09 Test Item Value Reference Range Interpretation Comments MAGNESIUM (test code = 9254876655) 2.3 mg/dL 1.7-2.4 Lab Interpretation (test code = Normal 27485-7) [facility] 07:29:09 Test Item Value Reference Range Interpretation Comments PHOSPHORUS (test code = 2048111711) 3.4 mg/dL 2.5-5.0 Lab Interpretation (test code = Normal 73374-1) [facility] 07:29:09 Test Item Value Reference Range Interpretation Comments MAGNESIUM (test code = 4062768435) 2.3 mg/dL 1.7-2.4 Lab Interpretation (test code = Normal 95944-9) [facility] 07:29:09 Test Item Value Reference Range Interpretation Comments PHOSPHORUS (test code = 6629181522) 3.4 mg/dL 2.5-5.0 Lab Interpretation (test code = Normal 55988-2) [facility] [id number] 07:00:47 Test Item Value Reference Range Interpretation Comments APTT Patient (test code See_Comment H [Au tomated message] = 3173-2) The system [employer] generated this result transmitted ref erence range: 26 - 36 Seconds. The reference range was not used to int erpret this result as normal/abnormal . Lab Interpretation (test Abnormal code = 74410-7) [facility] [id number] 07:00:47 Test Item Value Reference Range Interpretation Comments APTT Patient (test code See_Comment H [Au tomated message] = 3173-2) The system [employer] generated this result transmitted ref erence range: 26 - 36 Seconds. The reference range was not used to int erpret this result as normal/abnormal . Lab Interpretation (test Abnormal code = 88056-1) [facility] WITH [id number] 06:45:45 Test Item Value Reference Range Interpretation [...] RDW-SD (test code = 49.1 fL 38.5-51.6 82784-0) RDW-CV (test code = 14.6 % 12.1-15.4 788-0) PLT (test code = See_Comment [Automated 777-3) message] The system which generated this result transmit josh reference range : 150 - 328 10*3/ ?L. The reference range was not u sed to interpret th is result as normal/abnormal . MPV (test code = 10.0 fL 9.8-13.0 45808-2) NRBC/100 WBC (test See_Comment [Automat ed code = 7855293212) message] The system which generated this result transmit josh reference range : 0.0 - 10.0 /100 WBCs. The reference range was not used to interpret this result as normal/abnormal . NRBC x10^3 (test code See_Comment [Auto mated = 6254014049) message] The system which generated this result transmit josh reference range : 10*3/?L. The reference range was not used to interpret this result as normal/abnormal . GRAN MAT (NEUT) % 71.4 % (test code = 770-8) IMM GRAN % (test code 1.60 % = 5793452627) LYMPH % (test code = 20.8 % 736-9) MONO % (test code = 5.9 % 5905-5) EOS % (test code = 0.2 % 713-8) BASO % (test code = 0.1 % 706-2) GRAN MAT x10^3(ANC) 10.41 10*3/uL 1.99-6.95 H (test code = 3228935633) IMM GRAN x10^3 (test 0.24 10*3/uL 0.00-0.06 H code = 8010618017) LYMPH x10^3 (test code 3.04 10*3/uL 1.09-3.23 = 731-0) MONO x10^3 (test code 0.86 10*3/uL 0.36-1.02 = 742-7) EOS x10^3 (test code = 0.03 10*3/uL 0.06-0.53 L 711-2) BASO x10^3 (test code 0.01-0.09 = 704-7) Lab Interpretation Abnormal (test code = 84321-2) [facility] WITH [id number] 06:45:45 Test Item Value Reference Range Interpretation [...] RDW-SD (test code = 49.1 fL 38.5-51.6 79514-1) RDW-CV (test code = 14.6 % 12.1-15.4 788-0) PLT (test code = See_Comment [Automated 777-3) message] The system which generated this result transmit josh reference range : 150 - 328 10*3/ ?L. The reference range was not u sed to interpret th is result as normal/abnormal . MPV (test code = 10.0 fL 9.8-13.0 11153-1) NRBC/100 WBC (test See_Comment [Automat ed code = 7062080811) message] The system which generated this result transmit josh reference range : 0.0 - 10.0 /100 WBCs. The reference range was not used to interpret this result as normal/abnormal . NRBC x10^3 (test code See_Comment [Auto mated = 4732266359) message] The system which generated this result transmit josh reference range : 10*3/?L. The reference range was not used to interpret this result as normal/abnormal . GRAN MAT (NEUT) % 71.4 % (test code = 770-8) IMM GRAN % (test code 1.60 % = 3396234190) LYMPH % (test code = 20.8 % 736-9) MONO % (test code = 5.9 % 5905-5) EOS % (test code = 0.2 % 713-8) BASO % (test code = 0.1 % 706-2) GRAN MAT x10^3(ANC) 10.41 10*3/uL 1.99-6.95 H (test code = 5089277944) IMM GRAN x10^3 (test 0.24 10*3/uL 0.00-0.06 H code = 9670629600) LYMPH x10^3 (test code 3.04 10*3/uL 1.09-3.23 = 731-0) MONO x10^3 (test code 0.86 10*3/uL 0.36-1.02 = 742-7) EOS x10^3 (test code = 0.03 10*3/uL 0.06-0.53 L 711-2) BASO x10^3 (test code 0.01-0.09 = 704-7) Lab Interpretation Abnormal (test code = 15349-8) [facility] 03:38:07 Test Item Value Reference Range Interpretation Comments Height (test code = in 6165045693) Weight (test code = lbs 6030775440) Systolic BP (test code = mmHg 3677923444) Diastolic BP (test code mmHg = 4943192501) Heart Rate (test code = bpm 9664471926) BSA (test code = 2.06 m2 4859449469) MV valve area p 1/2 7.50 cm2 method (test code = 5775812610) MV dec slope (test code 1149.00 cm/s2 = 9739057394) MV P1/2t max carmita (test 114.40 cm/s code = 1683534826) MV Peak E Carmita (test code 114.8 cm/s = 2935281581) MV Prop V (test code = 34.90 cm/s 5281827291) Tapse (test code = 2.20 cm 1717070222) MV E/e' septal (test 10.3 cm/s code = 0017018185) LVOT peak carmita (test code 97.7 cm/s = 1254258227) LVOT mn grad (test code mmHg = 3559859946) AV LVOT peak gradient mmHg (test code = 1753571454) LVOT peak VTI (test code 13.1 cm = 4346430641) LV V1 mean (test code = 62.10 cm/s 0708815992) Aortic valve mean 72.2 cm/s velocity (test code = 1430910710) Ao peak carmita (test code = 108.6 cm/s 2622396695) Ao VTI (test code = 13.7 cm 1263983392) Ao max PG (test code = 4.70 mm[Hg] 2857137241) AV peak gradient (test mmHg code = 2430829054) AV mean gradient (test mmHg code = 4803816568) Aortic HR (test code = BPM 1641766120) LAV(MOD-sp2) (test code 56.20 mL = 9912126646) LVIDD (test code = 5.40 cm 2050775983) IVS (test code = 0.97 cm 1763191955) Interventricular Septum 0.97 cm Diastolic Thickness by 2D (test code = 2506753) LVPWD (test code = 0.90 cm 9555272258) PW (test code = 0.90 cm 0.6-1.2 1837709781) EF(Teich) (test code = 38.40 % 4166204604) LVIDS (test code = 4.40 cm 6638149922) FS (test code = 19 % 3441405873) EF - 2D (test code = 38.40 % 46144896) Radiology Study observation (narrative) (test code = 38031-2) JUAN (test code = JUAN) Formatting of [...] mL of Lumason ultrasound enhancing agent used. [facility] GLUCOSE (AUTOMATED)2022-02-16 01:08:44 Test Item Value Reference Range Interpretation Comments POCT GLU (test code = 1784864366) 167 mg/dL 70-110 H Lab Interpretation (test code = Abnormal 35609-0) [facility] GLUCOSE (AUTOMATED)2022-02-16 01:08:44 Test Item Value Reference Range Interpretation Comments POCT GLU (test code = 8047500004) 167 mg/dL 70-110 H Lab Interpretation (test code = Abnormal 62470-7) [facility] METABOLIC PANEL (NA, K, CL, CO2, GLUCOSE, BUN, CREATININE, CA)2022-02-16 00:36:49 Test Item Value Reference Range Interpretation Comments NA (test code = 128 mmol/L 135-145 L 8226704306) K (test code = 5.9 mmol/L 3.5-5.0 H Slight 1774333627) hemolysis CL (test code = 99 mmol/L 98-108 1434991098) CO2 TOTAL (test code 27 mmol/L 23-31 = 8118051892) AGAP (test code = 2-16 3290665156) BUN (test code = 60 mg/dL 7-23 H Slight 0633562802) hemolysis GLUCOSE (test code = 123 mg/dL 70-110 H 1274350986) CREATININE (test code 2.04 mg/dL 0.60-1.25 H = 1190646531) CALCIUM (test code = 8.2 mg/dL 8.6-10.6 L 2360616280) eGFR (test code = mL/min/1.73m2 2336449286) JUAN (test code = JUAN) Association of [...] tests). Lab Interpretation Abnormal (test code = 73891-5) [facility] (NA, K, CL, CO2, GLUCOSE, BUN, CREATININE, CA)2022-02-16 00:36:49 Test Item Value Reference Range Interpretation Comments NA (test code = 128 mmol/L 135-145 L 6946268974) K (test code = 5.9 mmol/L 3.5-5.0 H Slight 3765047254) hemolysis CL (test code = 99 mmol/L 98-108 9745952890) CO2 TOTAL (test code 27 mmol/L 23-31 = 1418134378) AGAP (test code = 2-16 3495205799) BUN (test code = 60 mg/dL 7-23 H Slight 9847508787) hemolysis GLUCOSE (test code = 123 mg/dL 70-110 H 1202571602) CREATININE (test code 2.04 mg/dL 0.60-1.25 H = 9730149034) CALCIUM (test code = 8.2 mg/dL 8.6-10.6 L 0048889984) eGFR (test code = mL/min/1.73m2 3671486170) JUAN (test code = JUAN) Association of [...] tests). Lab Interpretation Abnormal (test code = 81735-8) [facility] [id number] 00:35:33 Test Item Value Reference Interpretation Comments Range TROPONIN I (test 29.900 ng/mL See_Comment H [Automated code = 6067083744) message] The system which generated this result [...] biotin. Lab Interpretation Abnormal (test code = 10698-9) [facility] [id number] 00:35:33 Test Item Value Reference Interpretation Comments Range TROPONIN I (test 29.900 ng/mL See_Comment H [Automated code = 6916087581) message] The system which generated this result [...] biotin. Lab Interpretation Abnormal (test code = 17188-1) [facility] 00:23:52 Test Item Value Reference Range Interpretation Comments MAGNESIUM (test code = 3861698180) 2.3 mg/dL 1.7-2.4 Lab Interpretation (test code = Normal 03369-4) [facility] 00:23:52 Test Item Value Reference Range Interpretation Comments PHOSPHORUS (test code = 0824882011) 3.7 mg/dL 2.5-5.0 Lab Interpretation (test code = Normal 14170-6) [facility] 00:23:52 Test Item Value Reference Range Interpretation Comments MAGNESIUM (test code = 0634233553) 2.3 mg/dL 1.7-2.4 Lab Interpretation (test code = Normal 27756-5) [facility] 00:23:52 Test Item Value Reference Range Interpretation Comments PHOSPHORUS (test code = 5984332703) 3.7 mg/dL 2.5-5.0 Lab Interpretation (test code = Normal 73601-7) [facility] (for use with Heparin Infusion)2022-02-16 00:05:05 Test Item Value Reference Range Interpretation Comments APTT Patient (test code See_Comment H [Au tomated message] = 3173-2) The system [employer] generated this result transmitted ref erence range: 26 - 36 Seconds. The reference range was not used to int erpret this result as normal/abnormal . Lab Interpretation (test Abnormal code = 39490-2) [facility] (for use with Heparin Infusion)2022-02-16 00:05:05 Test Item Value Reference Range Interpretation Comments APTT Patient (test code See_Comment H [Au tomated message] = 3173-2) The system [employer] generated this result transmitted ref erence range: 26 - 36 Seconds. The reference range was not used to int erpret this result as normal/abnormal . Lab Interpretation (test Abnormal code = 99598-6) [facility] GLUCOSE (AUTOMATED)2022-02-15 23:08:37 Test Item Value Reference Range Interpretation Comments POCT GLU (test code = 6771860455) 110 mg/dL 70-110 Lab Interpretation (test code = Normal 86653-0) [facility] GLUCOSE (AUTOMATED)2022-02-15 23:08:37 Test Item Value Reference Range Interpretation Comments POCT GLU (test code = 8822067372) 110 mg/dL 70-110 Lab Interpretation (test code = Normal 88543-9) [facility] [id number] 17:40:19 Test Item Value Reference Interpretation Comments Range TROPONIN I (test 40.200 ng/mL See_Comment H [Automated code = 7848975421) message] The system which generated this result [...] biotin. Lab Interpretation Abnormal (test code = 17874-7) [facility] [id number] 17:40:19 Test Item Value Reference Interpretation Comments Range TROPONIN I (test 40.200 ng/mL See_Comment H [Automated code = 5152819176) message] The system which generated this result [...] biotin. Lab Interpretation Abnormal (test code = 24216-8) [facility] 17:33:19 Test Item Value Reference Range Interpretation Comments APTT Patient (test code = See_Comment [ Automated message] 3173-2) The system [employer] generated this result transmitted ref erence range: 26 - 36 Seconds. The re ference range was not u sed to interpret this result as normal/abnor mal. Lab Interpretation (test Normal code = 61898-4) [facility]19 Test Item Value Reference Range Interpretation Comments APTT Patient (test code = See_Comment [ Automated message] 3173-2) The system [employer] generated this result transmitted ref erence range: 26 - 36 Seconds. The re ference range was not u sed to interpret this result as normal/abnor mal. Lab Interpretation (test Normal code = 98625-7) [facility] 17:28:41 Test Item Value Reference Range Interpretation Comments MAGNESIUM (test code = 2526587654) 2.4 mg/dL 1.7-2.4 Lab Interpretation (test code = Normal 52256-6) [facility] 17:28:41 Test Item Value Reference Range Interpretation Comments PHOSPHORUS (test code = 4471023441) 3.1 mg/dL 2.5-5.0 Lab Interpretation (test code = Normal 06837-4) [facility] 17:28:41 Test Item Value Reference Range Interpretation Comments MAGNESIUM (test code = 6524678462) 2.4 mg/dL 1.7-2.4 Lab Interpretation (test code = Normal 98624-4) [facility] 17:28:41 Test Item Value Reference Range Interpretation Comments PHOSPHORUS (test code = 0874329487) 3.1 mg/dL 2.5-5.0 Lab Interpretation (test code = Normal 95180-2) [facility] (NA, K, CL, CO2, GLUCOSE, BUN, CREATININE, CA)2022-02-15 17:28:40 Test Item Value Reference Range Interpretation Comments NA (test code = 131 mmol/L 135-145 L 1112016388) K (test code = 4.4 mmol/L 3.5-5.0 7470717611) CL (test code = 100 mmol/L 98-108 2011533220) CO2 TOTAL (test code = 29 mmol/L 23-31 3541271419) AGAP (test code = 2-16 0700075086) BUN (test code = 56 mg/dL 7-23 H 2902349723) GLUCOSE (test code = 149 mg/dL 70-110 H 2813535386) CREATININE (test code = 1.93 mg/dL 0.60-1.25 H 5169719663) CALCIUM (test code = 8.4 mg/dL 8.6-10.6 L 0829706645) eGFR (test code = mL/min/1.73m2 9080871735) JUAN (test code = JUAN) Association of [...] tests). Lab Interpretation Abnormal (test code = 11507-8) [facility] (NA, K, CL, CO2, GLUCOSE, BUN, CREATININE, CA)2022-02-15 17:28:40 Test Item Value Reference Range Interpretation Comments NA (test code = 131 mmol/L 135-145 L 8790892742) K (test code = 4.4 mmol/L 3.5-5.0 6939587401) CL (test code = 100 mmol/L 98-108 6001871285) CO2 TOTAL (test code = 29 mmol/L 23-31 8294549567) AGAP (test code = 2-16 9939062471) BUN (test code = 56 mg/dL 7-23 H 8554398087) GLUCOSE (test code = 149 mg/dL 70-110 H 7357755636) CREATININE (test code = 1.93 mg/dL 0.60-1.25 H 7646585890) CALCIUM (test code = 8.4 mg/dL 8.6-10.6 L 8865094260) eGFR (test code = mL/min/1.73m2 6141597120) JUAN (test code = JUAN) Association of [...] tests). Lab Interpretation Abnormal (test code = 29170-9) [facility] GLUCOSE (AUTOMATED)2022-02-15 16:45:01 Test Item Value Reference Range Interpretation Comments POCT GLU (test code = 8575107030) 155 mg/dL 70-110 H Lab Interpretation (test code = Abnormal 50962-7) [facility] GLUCOSE (AUTOMATED)2022-02-15 16:45:01 Test Item Value Reference Range Interpretation Comments POCT GLU (test code = 9690608052) 155 mg/dL 70-110 H Lab Interpretation (test code = Abnormal 70088-5) [facility]PROCAL[facility]ONIN2022-08-22 15:22:46 Test Item Value Reference Interpretation Comments Range Procalcitonin (test 0.29 ng/mL See_Comment H [Automa josh code = 9268852053) message] The system which generated this result [...] lung abscess/empyema. For further information please refer to:[email or web address] p Lab Interpretation Abnormal (test code = 29388-9) [facility]PROCAL[facility]ONIN2022-08-22 15:22:46 Test Item Value Reference Interpretation Comments Range Procalcitonin (test 0.29 ng/mL See_Comment H [Automa josh code = 3767708408) message] The system which generated this result [...] lung abscess/empyema. For further information please refer to:[email or web address] p Lab Interpretation Abnormal (test code = 39197-4) [facility] GLUCOSE (AUTOMATED)2022-02-15 13:10:03 Test Item Value Reference Range Interpretation Comments POCT GLU (test code = 2701473897) 158 mg/dL 70-110 H Lab Interpretation (test code = Abnormal 17971-1) [facility] GLUCOSE (AUTOMATED)2022-02-15 13:10:03 Test Item Value Reference Range Interpretation Comments POCT GLU (test code = 2085989232) 158 mg/dL 70-110 H Lab Interpretation (test code = Abnormal 62680-9) [facility] [id number] 11:33:31 Test Item Value Reference Interpretation Comments Range TROPONIN I (test 44.100 ng/mL See_Comment H [Automated code = 6976350725) message] The system which generated this result [...] biotin. Lab Interpretation Abnormal (test code = 88327-1) [facility] [id number] 11:33:31 Test Item Value Reference Interpretation Comments Range TROPONIN I (test 44.100 ng/mL See_Comment H [Automated code = 4831441893) message] The system which generated this result [...] biotin. Lab Interpretation Abnormal (test code = 15330-3) [facility] WITHOUT [id number] 10:48:10 Test Item Value Reference Range Interpretation Comments WBC (test code = 6690-2) See_Comment H [A utomated message] The system [employer] generated this result transmit josh reference range : 4.20 - 10.70 10*3/?L. The reference range was not used to interpret this result as normal/abnormal . RBC (test code = 789-8) See_Comment L [Au tomated message] The system [employer] generated this result transmit josh reference range [...] 777-3) See_Comment [Au tomated message] The system [employer] generated this result transmit josh reference range : 150 - 328 10*3/?L. The reference range was not used to interpret this result as normal/abnormal . MPV (test code = 9.9 fL 9.8-13.0 78650-0) RDW-CV (test code = 14.6 % 12.1-15.4 788-0) RDW-SD (test code = 48.1 fL 38.5-51.6 93218-4) NRBC x10^3 (test code = See_Comment [Au tomated message] 3686350161) The system [employer] generated this result transmit josh reference range : 10*3/?L. The reference range was not used to interpret this result as normal/abnormal . NRBC/100 WBC (test code See_Comment [Au tomated message] = 0496863415) The system [facility] generated this result transmit josh reference range : 0.0 - 10.0 /100 WBC s. The reference r maxi was not used to interpret this result as normal/abnormal . IPF % (test code = 7487324370) Lab Interpretation (test Abnormal code = 24681-5) [facility] WITHOUT [id number] 10:48:10 Test Item Value Reference Range Interpretation Comments WBC (test code = 6690-2) See_Comment H [A utomated message] The system [employer] generated this result transmit josh reference range : 4.20 - 10.70 10*3/?L. The reference range was not used to interpret this result as normal/abnormal . RBC (test code = 789-8) See_Comment L [Au tomated message] The system [employer] generated this result transmit josh reference range [...] 777-3) See_Comment [Au tomated message] The system [employer] generated this result transmit josh reference range : 150 - 328 10*3/?L. The reference range was not used to interpret this result as normal/abnormal . MPV (test code = 9.9 fL 9.8-13.0 10832-1) RDW-CV (test code = 14.6 % 12.1-15.4 788-0) RDW-SD (test code = 48.1 fL 38.5-51.6 81928-3) NRBC x10^3 (test code = See_Comment [Au tomated message] 9502866391) The system [employer] generated this result transmit josh reference range : 10*3/?L. The reference range was not used to interpret this result as normal/abnormal . NRBC/100 WBC (test code See_Comment [Au tomated message] = 4131028118) The system [employer] generated this result transmit josh reference range : 0.0 - 10.0 /100 WBC s. The reference r maxi was not used to interpret this result as normal/abnormal . IPF % (test code = 8639237425) Lab Interpretation (test Abnormal code = 23703-1) [facility] 10:42:52 Test Item Value Reference Range Interpretation Comments MAGNESIUM (test code = 8154650004) 2.5 mg/dL 1.7-2.4 H Lab Interpretation (test code = Abnormal 23330-7) [facility] (NA, K, CL, CO2, GLUCOSE, BUN, CREATININE, CA)2022-02-15 10:42:52 Test Item Value Reference Range Interpretation Comments NA (test code = 132 mmol/L 135-145 L 8086559774) K (test code = 4.5 mmol/L 3.5-5.0 4854706464) CL (test code = 100 mmol/L 98-108 5016099826) CO2 TOTAL (test code = 29 mmol/L 23-31 4844320737) AGAP (test code = 2-16 2430320521) BUN (test code = 55 mg/dL 7-23 H 6128855034) GLUCOSE (test code = 171 mg/dL 70-110 H 7693477927) CREATININE (test code = 2.00 mg/dL 0.60-1.25 H 1637330368) CALCIUM (test code = 8.4 mg/dL 8.6-10.6 L 2592366126) eGFR (test code = mL/min/1.73m2 3740809125) JUAN (test code = JUAN) Association of [...] tests). Lab Interpretation Abnormal (test code = 86831-2) [facility] 10:42:52 Test Item Value Reference Range Interpretation Comments MAGNESIUM (test code = 1211256695) 2.5 mg/dL 1.7-2.4 H Lab Interpretation (test code = Abnormal 35109-9) [facility]OL[facility] (NA, K, CL, CO2, GLUCOSE, BUN, CREATININE, CA)2022-02-15 10:42:52 Test Item Value Reference Range Interpretation Comments NA (test code = 132 mmol/L 135-145 L 9831208581) K (test code = 4.5 mmol/L 3.5-5.0 1887156064) CL (test code = 100 mmol/L 98-108 4213125968) CO2 TOTAL (test code = 29 mmol/L 23-31 8029065452) AGAP (test code = 2-16 2470001471) BUN (test code = 55 mg/dL 7-23 H 0188868464) GLUCOSE (test code = 171 mg/dL 70-110 H 9321456755) CREATININE (test code = 2.00 mg/dL 0.60-1.25 H 2811393945) CALCIUM (test code = 8.4 mg/dL 8.6-10.6 L 0391694572) eGFR (test code = mL/min/1.73m2 3389628263) JUAN (test code = JUAN) Association of [...] tests). Lab Interpretation Abnormal (test code = 11422-0) [facility] [id number] 10:39:08 Test Item Value Reference Range Interpretation Comments APTT Patient (test code See_Comment H [Au tomated message] = 3173-2) The system [employer] generated this result transmitted ref erence range: 26 - 36 Seconds. The reference range was not used to int erpret this result as normal/abnormal . Lab Interpretation (test Abnormal code = 48290-9) [facility] PARTIAL THRMPLAS [id number] 10:39:08 Test Item Value Reference Range Interpretation Comments APTT Patient (test code See_Comment H [Au tomated message] = 3173-2) The system [employer] generated this result transmitted ref erence range: 26 - 36 Seconds. The reference range was not used to int erpret this result as normal/abnormal . Lab Interpretation (test Abnormal code = 57154-4) [facility] PARTIAL THRMPLAS [id number] 04:26:48 Test Item Value Reference Range Interpretation Comments APTT Patient (test code See_Comment H [Au tomated message] = 3173-2) The system [employer] generated this result transmitted ref erence range: 26 - 36 Seconds. The reference range was not used to int erpret this result as normal/abnormal . Lab Interpretation (test Abnormal code = 40970-0) [facility] PARTIAL THRMPLAS [id number] 04:26:48 Test Item Value Reference Range Interpretation Comments APTT Patient (test code See_Comment H [Au tomated message] = 3173-2) The system [employer] generated this result transmitted ref erence range: 26 - 36 Seconds. The reference range was not used to int erpret this result as normal/abnormal . Lab Interpretation (test Abnormal code = 91580-4) [facility] GLUCOSE (AUTOMATED)2022-02-15 02:38:04 Test Item Value Reference Range Interpretation Comments POCT GLU (test code = 8997435185) 170 mg/dL 70-110 H Lab Interpretation (test code = Abnormal 54227-2) [facility] GLUCOSE (AUTOMATED)2022-02-15 02:38:04 Test Item Value Reference Range Interpretation Comments POCT GLU (test code = 3959774082) 170 mg/dL 70-110 H Lab Interpretation (test code = Abnormal 66609-1) [facility]TR[facility] [id number] 01:26:24 Test Item Value Reference Interpretation Comments Range TROPONIN I (test 13.300 ng/mL See_Comment H [Automated code = 1313480672) message] The system which generated this result [...] biotin. Lab Interpretation Abnormal (test code = 78610-7) [facility] [id number] 01:26:24 Test Item Value Reference Interpretation Comments Range TROPONIN I (test 13.300 ng/mL See_Comment H [Automated code = 0270752376) message] The system which generated this result [...] biotin. Lab Interpretation Abnormal (test code = 35753-2) [facility] METABOLIC PANEL (NA, K, CL, CO2, GLUCOSE, BUN, CREATININE, CA)2022-02-15 01:14:22 Test Item Value Reference Range Interpretation Comments NA (test code = 134 mmol/L 135-145 L 7143443730) K (test code = 4.6 mmol/L 3.5-5.0 6729360062) CL (test code = 99 mmol/L 98-108 4061639249) CO2 TOTAL (test code = 26 mmol/L 23-31 9701819907) AGAP (test code = 2-16 3731136541) BUN (test code = 54 mg/dL 7-23 H 1293602252) GLUCOSE (test code = 190 mg/dL 70-110 H 1810581353) CREATININE (test code = 2.13 mg/dL 0.60-1.25 H 0036273916) CALCIUM (test code = 8.8 mg/dL 8.6-10.6 6786794435) eGFR (test code = mL/min/1.73m2 3892086391) JUAN (test code = JUAN) Association of [...] tests). Lab Interpretation Abnormal (test code = 56381-2) [facility] (NA, K, CL, CO2, GLUCOSE, BUN, CREATININE, CA)2022-02-15 01:14:22 Test Item Value Reference Range Interpretation Comments NA (test code = 134 mmol/L 135-145 L 2765206674) K (test code = 4.6 mmol/L 3.5-5.0 1155910591) CL (test code = 99 mmol/L 98-108 5396518433) CO2 TOTAL (test code = 26 mmol/L 23-31 1845931033) AGAP (test code = 2-16 4310595186) BUN (test code = 54 mg/dL 7-23 H 2406435548) GLUCOSE (test code = 190 mg/dL 70-110 H 6777979878) CREATININE (test code = 2.13 mg/dL 0.60-1.25 H 1622192666) CALCIUM (test code = 8.8 mg/dL 8.6-10.6 4708572227) eGFR (test code = mL/min/1.73m2 9306263790) JUAN (test code = JUAN) Association of [...] tests). Lab Interpretation Abnormal (test code = 15133-5) [facility] HospitalL[facility] Acid Whole [id number] 00:58:27 Test Item Value Reference Range Interpretation Comments LACTIC ACID (test code = 4.00 mmol/L 0.50-2.20 H 4921705295) Lab Interpretation (test code = Abnormal 64018-6) [facility] HospitalL[facility] Acid Whole [id number] 00:58:27 Test Item Value Reference Range Interpretation Comments LACTIC ACID (test code = 4.00 mmol/L 0.50-2.20 H 0326137317) Lab Interpretation (test code = Abnormal 98913-2) [facility] HospitalBLO[facility] [id number] 07:00:32 Test Item Value Reference Range Interpretation Comments CULTURE (BEAKER) (test No growth in 5 days code = 1095) BLOOD [id number] 07:00:32 Test Item Value Reference Range Interpretation Comments CULTURE (BEAKER) (test No growth in 5 days code = 1095) POC-Glucose [id number] 16:01:13 Test Item Value Reference Range Interpretation Comments POC-Glucose Meter (test 136 mg/dL 70-110 H : TE STED AT SLSL code = 1538) [facility] [place] [address]: Modeling Analyst/Techni brooklyn ID = [id number] for Castaneda, Martina cherry Lab Interpretation (test Abnormal code = 35198-3) [facility] [id number] 16:01:13 Test Item Value Reference Range Interpretation Comments POC-Glucose Meter (test 136 mg/dL 70-110 H : TE STED AT SLSL code = 1538) [address] [place] [address]: Modeling Analyst/Techni brooklyn ID = [id number] for Castaneda, Martina cherry Lab Interpretation (test Abnormal code = 64969-2) [facility] [id number] 16:01:13 Test Item Value Reference Range Interpretation Comments POC-Glucose Meter (test 136 mg/dL 70-110 H : TE STED AT SLSL code = 1538) [address] [place] [address]: Modeling Analyst/Techni brooklyn ID = [id number] for Castaneda, Martina cherry Lab Interpretation (test Abnormal code = 45173-1) [facility] [id number] 16:01:13 Test Item Value Reference Range Interpretation Comments POC-Glucose Meter (test 136 mg/dL 70-110 H : TE STED AT SLSL code = 1538) [address] [place] [address]: Modeling Analyst/Techni brooklyn ID = [id number] for Castaneda, Martina cherry Lab Interpretation (test Abnormal code = 44199-0) [facility] [id number] 16:01:13 Test Item Value Reference Range Interpretation Comments POC-Glucose Meter (test 136 mg/dL 70-110 H : [facility] [address] [place] [address]: Modeling Analyst/Techni brooklyn ID = [id number] for Castaneda, Martina cherry Lab Interpretation (test Abnormal code = 30648-8) [facility] [id number] 16:01:13 Test Item Value Reference Range Interpretation Comments POC-Glucose Meter (test 136 mg/dL 70-110 H : TE STED AT SLSL code = 1538) [address] [place] [address]: Modeling Analyst/Techni brooklyn ID = [id number] for Castaneda, Matrina cherry Lab Interpretation (test Abnormal code = 49064-9) [facility] [id number] 16:01:13 Test Item Value Reference Range Interpretation Comments POC-GLUCOSE METER 136 mg/dL 70-110 H : TESTED A T [facility] 1317 (BEAKER) (test code [facility], = 1538) [place] [address]: Modeling Analyst/Techni brooklyn ID = [id number] for Cerv antes, Crystal POCT-GLUCOSE [id number] 11:30:14 Test Item Value Reference Range Interpretation Comments POC-GLUCOSE METER 112 mg/dL 70-110 H : TESTED A T [facility] [address] (BEAKER) (test code [address], = 1538) [facility] [address]: Modeling Analyst/Techni brooklyn ID = [id number] for Shazia Scott POCT-GLUCOSE [id number] 06:45:43 Test Item Value Reference Range Interpretation Comments POC-GLUCOSE METER 150 mg/dL 70-110 H : TESTED A T [facility] [address] (BEAKER) (test code [address], = 1538) [facility] [address]: Modeling Analyst/Techni brooklyn ID = [id number] for Taina Poe [id number] 06:05:04 Test Item Value Reference Range Interpretation Comments MAGNESIUM (BEAKER) (test code = 2.2 mg/dL 1.5-3.0 627) Modeling Analyst ID - [id number] ID - [id number] ID - [id number] ID - [id number] METABOLIC [id number] 06:04:06 Test Item Value Reference Range Interpretation [...] 1092) DATA TO CALCULA TE ESTIMATED GFR. Modeling Analyst ID - [id number] ID - [id number] ID - [id number] ID - [id number] ID - RPZVYVMZM346Nzqdlqsr ID - [id number] ID - [id number] ID - LUZOSSCPJ402Ixlapkth ID - [id number] ID - [id number] W/PLT COUNT & AUTO DIFFERENTIAL 2021-11-12 05:53:41 [...] PERCENT (BEAKER) (test code = 2801) POCT-GLUCOSE [id number] 21:50:33 Test Item Value Reference Range Interpretation Comments POC-GLUCOSE METER 173 mg/dL 70-110 H : TESTED A T [facility] [address] (BEAKER) (test code [address], = 1538) [place] [address]: Modeling Analyst/Techni brooklyn ID = [id number] for Brow Taina vanegas POCT-GLUCOSE [id number] 16:45:23 Test Item Value Reference Range Interpretation Comments POC-GLUCOSE METER 134 mg/dL 70-110 H : TESTED A T [facility] [address] (BEAKER) (test code [address], = 1538) [place] [address]: Modeling Analyst/Techni brooklyn ID = [id number] for Dapr emont, Heather POCT-GLUCOSE [id number] 11:45:21 Test Item Value Reference Range Interpretation Comments POC-GLUCOSE METER 125 mg/dL 70-110 H : TESTED A T [facility] [address]17 (BEAKER) (test code [facility], = 1538) [place] [address]: Modeling Analyst/Techni brooklyn ID = [id number] for Dapr emont, Heather Sputum Culture + Gram [id number] 08:54:21 Test Item Value Reference Range Interpretation Comments Result (test code = 4+ Normal respiratory 6463-4) luis eduardo present Gram Stain Result 3+ Mixed luis eduardo (test code = 1123) [facility] [id number] 08:54:21 Test Item Value Reference Range Interpretation Comments Result (test code = 4+ Normal respiratory 6463-4) luis eduardo present Gram Stain Result 3+ Mixed luis eduardo (test code = 1123) [facility] Gram [id number] 08:54:21 Test Item Value Reference Range Interpretation Comments Result (test code = 4+ Normal respiratory 6463-4) luis eduardo present Gram Stain Result 3+ Mixed luis eduardo (test code = 1123) [facility] Gram [id number] 08:54:21 Test Item Value Reference Range Interpretation Comments Result (test code = 4+ Normal respiratory 6463-4) luis eduardo present Gram Stain Result 3+ Mixed luis eduardo (test code = 1123) [facility] Gram [id number] 08:54:21 Test Item Value Reference Range Interpretation Comments Result (test code = 4+ Normal respiratory 6463-4) luis eduardo present Gram Stain Result 3+ Mixed luis eduardo (test code = 1123) [facility] Gram [id number] 08:54:21 Test Item Value Reference Range Interpretation Comments Result (test code = 4+ Normal respiratory 6463-4) luis eduardo present Gram Stain Result 3+ Mixed luis eduardo (test code = 1123) [facility] + GRAM [id number] 08:54:21 Test Item Value Reference Range Interpretation Comments CULTURE (BEAKER) 4+ Normal respiratory (test code = 1095) luis eduardo present GRAM STAIN RESULT 1+ White blood cells (BEAKER) (test code = seen 1123) GRAM STAIN RESULT 1+ epithelial cells (BEAKER) (test code = 74513) GRAM STAIN RESULT 3+ Mixed luis eduardo (BEAKER) (test code = 25574) RAD, CHEST, 1 VIEW, NON [id number] 07:33:00Reason for exam:->[facility] : 1950 Sex: MFINAL REPORT CHEST AP PORTABLE SEMIERECT Comparison exam: 11/09/2021 History provided: Pneumonia Heart size normal. Chronic pleural thickening at the right base. Lungs free of acute disease and vascularity normal. Signed: Carlos Navarro MDReport Verified Date/Time: 11/11/2021 07:33:28 Reading Location: [facility] Diagnostic Imaging Reading Room - [facility] 1.310.12 POCT-GLUCOSE [id number] 06:54:14 Test Item Value Reference Range Interpretation Comments POC-GLUCOSE METER 133 mg/dL 70-110 H : TESTED A T [facility] [address] (BEAKER) (test code [address], = 1538) [facility] [place] [address]: Modeling Analyst/Techni brooklyn ID = [id number] for Taina Poe [id number] 04:53:42 Test Item Value Reference Range Interpretation Comments MAGNESIUM (BEAKER) (test code = 2.3 mg/dL 1.5-3.0 627) Modeling Analyst ID - [id number] ID - [id number] ID - [id number] ID - [id number] BASIC METABOLIC [id number] 04:52:53 Test Item Value Reference Range Interpretation [...] 1092) DATA TO CALCULA TE ESTIMATED GFR. Modeling Analyst ID - [id number] ID - [id number] ID - [id number] ID - [id number] ID - [id number] ID - [id number] ID - [id number] ID - [id number] ID - [id number] ID - [id number] W/PLT COUNT & AUTO [id number] 04:28:30 Test Item Value Reference Range Interpretation [...] (test code = 416) BASOPHILS ABSOLUTE COUNT ([facility]) 0.04 K/ L 0.00-0.20 (test code = 417) IMMATURE GRANULOCYTES-RELATIVE 2 % 0-0 H PERCENT (AKER) (test code = 2801) 2D Echo W/Doppler(CW/PW/Color)2021-11-11 00:37:05Ejection [facility]LE [facility]Do[facility](CW/PW/Color)2021-11-11 00:37:05Ejection [facility]LE [facility]CHO [facility] W[facility]Doppler(CW/PW/Color) 2021-11-11 00:37:05Ejection FractionSLE [facility]CHO [facility] W/Doppler(CW/PW/Color)2021-11-11 00:37:05Ejection [facility]LE [facility] W/Doppler(CW/PW/Color)2021-11-11 00:37:05Ejection FractionSLE ECHO HEARTLAB [facility] W/Doppler(CW/PW/Color) 2021-11-11 00:37:05Ejection FractionSLE ECHO HEARTLAB [facility] [id number] 20:59:54 Test Item Value Reference Range Interpretation Comments POC-GLUCOSE METER 148 mg/dL 70-110 H : TESTED A T [facility] (BEAKER) (test code [address], = 1538) [place] [id number]: Modeling Analyst/Techni brooklyn ID = [id number] for Brow romina, Taina POCT-GLUCOSE [id number] 15:51:00 Test Item Value Reference Range Interpretation Comments POC-GLUCOSE METER 156 mg/dL 70-110 H : TESTED A T [facility] (BEAKER) (test code [address], = 1538) [place] [address]: Modeling Analyst/Techni brooklyn ID = [id number] for Cerv antes, Crystal POCT-GLUCOSE [id number] 11:44:26 Test Item Value Reference Range Interpretation Comments POC-GLUCOSE METER 139 mg/dL 70-110 H : TESTED A T [facility] (BEAKER) (test code [address], = 1538) [facility] [place] [address]: Modeling Analyst/Techni brooklyn ID = [id number] for Shazia Scott BASIC METABOLIC [id number] 07:34:29 Test Item Value Reference Range Interpretation [...] 1092) DATA TO CALCULA TE ESTIMATED GFR. Modeling Analyst ID - DSENSONOperator ID - DSENSONOperator ID [...] (test code = 18 U/L 5-50 347) Modeling Analyst ID - DSENSONOperator ID - DSENSONOperator ID - DSENSONOperator ID - DSENSONOperator ID - DSENSONOperator ID - DSENSONOperator ID - DSENSONOperator ID - DSENSONOperator ID - DSENSONOperator ID - DSENSONCBC W/PLT COUNT & AUTO [id number] 07:19:24 Test Item Value Reference Range Interpretation [...] PERCENT (BEAKER) (test code = 2801) POCT-GLUCOSE [id number] 07:05:35 Test Item Value Reference Range Interpretation Comments POC-GLUCOSE METER 129 mg/dL 70-110 H : TESTED A T [facility] (test code [facility], = 1538) [place] [address]: Modeling Analyst/Techni brooklyn ID = [id number] for Anayeli ety, Ruth POCT-GLUCOSE [id number] 22:17:06 Test Item Value Reference Range Interpretation Comments POC-GLUCOSE METER 135 mg/dL 70-110 H : TESTED A T [facility] 1317 ([facility]) (test code [facility], = 1538) [place] [address]: Modeling Analyst/Techni brooklyn ID = [id number] for Anayeli ety, Ruth POCT-GLUCOSE [id number] 16:21:48 Test Item Value Reference Range Interpretation Comments POC-GLUCOSE METER 178 mg/dL 70-110 H : Notified RN/MD: TESTED ([facility]) (test code AT [facility] [address] = 1538) [place] [address]: Modeling Analyst/Techni brooklyn ID = [id number] for Alee Calderon HEPATITIS PANEL, [id number] 14:58:49 Test Item Value Reference Range Interpretation Comments HEPATITIS A IGM ANTIBODY (BEAKER) Nonreactive Nonreactive (test code = 498) HEPATITIS B CORE IGM ANTIBODY Nonreactive Nonreactive (BEAKER) (test code = 645) HEPATITIS C ANTIBODY (BEAKER) Nonreactive Nonreactive (test code = 367) HEPATITIS B SURFACE ANTIGEN (2) Nonreactive Nonreactive (BEAKER) (test code = 2585) Modeling Analyst ID - DBOperator ID - DBPOCT-GLUCOSE [id number] 12:30:38 Test Item Value Reference Range Interpretation Comments POC-GLUCOSE METER 184 mg/dL 70-110 H : Notified RN/MD: TESTED ([facility]) (test code AT [facility] [address] = 1538) [place] [facility] [address]: Modeling Analyst/Techni brooklyn ID = [id number] for Francisco Javier anya Lorita VENOUS DOPPLER LEGS, [id number] 10:54:00Reason for exam:->DVT [facility] : 1950 Sex: MFINAL [...] 10:54:12 Reading Location: [facility] Radiology Reading Room RAD, CHEST, 1 VIEW, NON [id number] 09:00:00 Reason for exam:->PNAShould this be performed at the bedside?->Yes [facility] : 1950 Sex: [...] ThackerMDReport Verified Date/Time: 11/09/2021 09:00:23 Reading Location: [facility] Radiology Reading Room POCT-GLUCOSE [id number] 07:33:54 Test Item Value Reference Range Interpretation Comments POC-GLUCOSE METER 156 mg/dL 70-110 H : Notified RN/MD: TESTED ([facility]) (test code AT [address] POINT = 1538) [facility] [address]: Modeling Analyst/Techni brooklyn ID = [id number] for Alec Bush [id number] 05:00:02 Test Item Value Reference Range Interpretation Comments PARTIAL THROMBOPLASTIN 111.6 seconds 23.0-35.0 H Berna l Information TIME ([facility]) (test (Auto Ou tput) code = 760) HIV-1 ANTIGEN WITH HIV-1/2 [id number] 04:53:13 Test Item Value Reference Range Interpretation Comments HIV-1 ANTIGEN WITH HIV 1\\T\\2 Nonreactive Nonreactive ANTIBODY (2) ([facility]) (test code = 2586) Modeling Analyst ID - [id number] METABOLIC [id number] 04:38:36 Test Item Value Reference Range Interpretation [...] 1092) DATA TO CALCULA TE ESTIMATED GFR. Modeling Analyst ID - [id number] ID - [id number] ID - [id number] ID - [id number] ID - [id number] ID - [id number] ID - [id number] ID - [id number] ID - [id number] ID - [id number] FUNCTION [id number] 04:36:24 Test Item Value Reference Range Interpretation [...] (test code = 22 U/L 5-50 347) Modeling Analyst ID - [id number] ID - [id number] ID - [id number] ID - OLARFETUZ144Vpmohodj ID - [id number] ID - SVPBUTXHW438Qoqgjtlo ID - SOYIEMWPE753Ldvggvzl ID - VBBTTJXCK083Vmrkbkne ID - CEVXCAMVY772Nghxcdlq ID - [id number] [id number] 04:30:27 Test Item Value Reference Range Interpretation Comments HEMOGLOBIN A1C (BEAKER) (test code = 5.8 % 4.3-6.1 368) Modeling Analyst ID - [id number] W/PLT COUNT & AUTO [id number] 04:17:15 Test Item Value Reference Range Interpretation [...] PERCENT (BEAKER) (test code = 2801) TROPONIN [id number] 01:16:05 Test Item Value Reference Range Interpretation [...] failure, acidosis, acute neurological disease, and persistent tachyarrhythmia.Modeling Analyst ID - [id number] [id number] 20:56:12 Test Item Value Reference Range Interpretation Comments POC-GLUCOSE METER 169 mg/dL 70-110 H : Notified RN/MD: TESTED (BEAKER) (test code AT [address] = 1538) [facility] [address] Modeling Analyst/Techni brook[place] ID = [id number] for Dottie Collins [id number] 20:43:27 Test Item Value Reference Range Interpretation Comments PARTIAL THROMBOPLASTIN 43.3 seconds 23.0-35.0 H Final Information TIME (BEAKER) (test (Auto Ou tput) code = 760) [id number] 17:13:58 Test Item Value Reference Range Interpretation Comments GLUCOSE RANDOM (BEAKER) (test code 247 mg/dL 70-110 H = 652) Modeling Analyst ID - ARTUR [id number] 17:03:16 Test Item Value Reference Range Interpretation [...] failure, acidosis, acute neurological disease, and persistent tachyarrhythmia.Modeling Analyst ID - HENRRYLegionella antigen, [id number] 14:05:17 Test Item Value Reference Range Interpretation Comments Legionella Urine Negative - see Negative for L. Antigen (test code comment pneumophi la = 55730-5) serogroup 1 ant igen, suggesting no r ecent or current infe ction with this serog roup. Legionellosis c annot be ruled out si nce other serogroup s and species may cau se disease. [facility] CenterLegionella antigen, [id number] 14:05:17 Test Item Value Reference Range Interpretation Comments Legionella Urine Negative - see Negative for L. Antigen (test code comment pneumophi la = 18467-7) serogroup 1 ant igen, suggesting no r ecent or current infe ction with this serog roup. Legionellosis c annot be ruled out si nce other serogroup s and species may cau se disease. [facility] CenterLegionella antigen, [id number] 14:05:17 Test Item Value Reference Range Interpretation Comments Legionella Urine Negative - see Negative for L. Antigen (test code comment pneumophi la = 99707-0) serogroup 1 ant igen, suggesting no r ecent or current infe ction with this serog roup. Legionellosis c annot be ruled out si nce other serogroup s and species may cau se disease. [facility] CenterLegionella antigen, [id number] 14:05:17 Test Item Value Reference Range Interpretation Comments Legionella Urine Negative - see Negative for L. Antigen (test code comment pneumophi la = 20859-9) serogroup 1 ant igen, suggesting no r ecent or current infe ction with this serog roup. Legionellosis c annot be ruled out si nce other serogroup s and species may cau se disease. [facility] CenterLegionella antigen, [id number] 14:05:17 Test Item Value Reference Range Interpretation Comments Legionella Urine Negative - see Negative for L. Antigen (test code comment pneumophi la = 08652-3) serogroup 1 ant igen, suggesting no r ecent or current infe ction with this serog roup. Legionellosis c annot be ruled out si nce other serogroup s and species may cau se disease. [facility] CenterLegionella antigen, [id number] 14:05:17 Test Item Value Reference Range Interpretation Comments Legionella Urine Negative - see Negative for L. Antigen (test code comment pneumophi la = 04476-5) serogroup 1 ant igen, suggesting no r ecent or current infe ction with this serog roup. Legionellosis c annot be ruled out si nce other serogroup s and species may cau se disease. [facility] CenterLEGIONELLA ANTIGEN, [id number] 14:05:17 Test Item Value Reference Range Interpretation Comments L. PNEUMOPHILA Negative - see Negative fo r L. SEROGP 1 UR AG comment pneumophila (BEAKER) (test code serogrou p 1 antigen, = 1156) suggesting no r ecent or current infe ction with this serog roup. Legionellosis c annot be ruled out si nce other serogroup s and species may cau se disease. U/S, RENAL, [id number] 14:05:00Reason for exam:->elevated creatine [facility] : 1950 Sex: MFINAL [...] renal ultrasound. No hydronephrosis Signed: Cindy Saucedo [facility] [place] Verified Date/Time: 11/08/2021 14:05:00 Reading Location: [facility] B1 C013Y CT Body Reading Room Strep pneumoniae [id number] 14:04:46 Test Item Value Reference Range Interpretation Comments Strep pneumoniae Presumptive negative Presumptive Antigen (test code = [place] [address]-8) pneumonia - see pneumococcal comment pneumonia - [...] test. Lab Interpretation Normal (test code = 45968-1) [facility] [id number] 14:04:46 Test Item Value Reference Range Interpretation Comments Strep pneumoniae Presumptive negative Presumptive Antigen (test code = [place] [address]-7) pneumonia - see pneumococcal comment pneumonia - [...] test. Lab Interpretation Normal (test code = 56312-9) [facility] [id number] 14:04:46 Test Item Value Reference Range Interpretation Comments Strep pneumoniae Presumptive negative Presumptive Antigen (test code = [place] [address]-4) pneumonia - see pneumococcal comment pneumonia - [...] test. Lab Interpretation Normal (test code = 38255-7) [facility] [id number] 14:04:46 Test Item Value Reference Range Interpretation Comments Strep pneumoniae Presumptive negative Presumptive Antigen (test code = [place] [address]-6) pneumonia - see pneumococcal comment pneumonia - [...] test. Lab Interpretation Normal (test code = 89818-8) [facility] [id number] 14:04:46 Test Item Value Reference Range Interpretation Comments Strep pneumoniae Presumptive negative Presumptive Antigen (test code = [place] [address]-2) pneumonia - see pneumococcal comment pneumonia - [...] test. Lab Interpretation Normal (test code = 43373-0) [facility] pneumoniae [id number] 14:04:46 Test Item Value Reference Range Interpretation Comments Strep pneumoniae Presumptive negative Presumptive Antigen (test code = [place] [address]-2) pneumonia - see pneumococcal comment pneumonia - [...] test. Lab Interpretation Normal (test code = 08178-5) [facility] PNEUMONIAE [id number] 14:04:46 Test Item Value Reference Range Interpretation [...] the detection limit of the test. TROPONIN [id number] 12:03:41 Test Item Value Reference Range Interpretation [...] failure, acidosis, acute neurological disease, and persistent tachyarrhythmia.Modeling Analyst ID - DSENSONBASIC METABOLIC [id number] 11:54:31 Test Item Value Reference Range Interpretation [...] 1092) DATA TO CALCULA TE ESTIMATED GFR. Modeling Analyst ID - DSENSONOperator ID - DSENSONOperator ID - DSENSONOperator ID - DSENSONOperator ID - DSENSONOperator ID - DSENSONOperator ID - DSENSONOperator ID - DSENSONOperator ID - DSENSONOperator ID - DSENSONOperator ID - DSENSONOperator ID - DSENSONOperator ID - [id number] 11:45:04 Test Item Value Reference Range Interpretation Comments PARTIAL THROMBOPLASTIN 44.4 seconds 23.0-35.0 H Final Information TIME (BEAKER) (test (Auto Ou tput) code = 760) POCT-GLUCOSE [id number] 11:43:30 Test Item Value Reference Range Interpretation Comments POC-GLUCOSE METER 141 mg/dL 70-110 H : Notified RN/MD: TESTED (BEAKER) (test code AT [facility] [address] = 1538) [place] [facility] [address]: Modeling Analyst/Techni brook[place] ID = [id number] for Francisco JavierAlec [place] PUL PERF IMAGING, [id number] 09:49:00Unlisted Reason for Exam - Click Yes and Enter Reason Below->No [facility] : 1950 Sex: MFINAL REPORT PROCEDURE: LUNG SCAN - perfusion only CPT CODE: 83073 INDICATION: Elevated D-dimer PROTOCOL: 5.8 mCi of [...] Verified Date/Time: 11/08/2021 09:49:42 CT, CHEST, WITHOUT [id number] 09:47:00Unlisted Reason for Exam - Click Yes and Enter Reason Below->No [facility] : 1950 Sex: MFINAL [...] 11/08/2021 09:47:14 RAD, CHEST, 1 VIEW, NON [id number] 08:47:00Reason for exam:->ETT placementShould this be performed at the bedside?->Yes [facility] : 1950 Sex: [...] Ou tput) code = 760) LACTIC ACID, [id number] 05:34:16 Test Item Value Reference Range Interpretation Comments LACTATE BLOOD 1.89 mmol/L See_Comment [Automated me ssage] VENOUS (2) (BEAKER) The syst em which (test code = 2872) generated this result transmitted ref erence range: 0.50-<2. 00. The reference range was not used to interpr et this result as normal/abnormal . Modeling Analyst ID - LITOOperator ID - LITOOperator ID - LITOOperator ID - ROSALBA [id number] 05:31:10 Test Item Value Reference Range Interpretation Comments PROCALCITONIN (BEAKER) (test code 0.15 ng/mL <0.05 H = 3036) SEPSIS RISK (ng/mL)Low: 0.05-0.50Intermediate: 0.51-2.00High: >=2.01 Urinalysis with Microscopic If [id number] 05:13:27 Test Item Value Reference Range Interpretation Comments Color, UA (test code = 5778-6) Yellow Clarity, UA (test code = 5767-9) Clear Specific [place], UA (test code = 1.015 1.001-1.035 5811-5) pH, UA (test code = 5803-2) 5.0 5.0-8.0 Protein, UA (test code = 11850-8) Negative Negative Glucose, UA (test code = 365) Negative Negative Ketones, UA (test code = 2514-8) Negative Negative Bilirubin, UA (test code = 39683-2) Negative Negative Blood, UA (test code = 21485-6) Small Negative A Nitrite, UA (test code = 5802-4) Negative Negative Leukocytes, UA (test code = 5799-2) Negative Negative Urobilinogen, UA (test code = 0.2 mg/dL 0.2-1.0 86011-1) Specimen Source (test code = 2795) Lab Interpretation (test code = Abnormal 36559-4) [facility] with [facility] If [id number] 05:13:27 Test Item Value Reference Range Interpretation Comments Color, UA (test code = 5778-6) Yellow Clarity, UA (test code = 5767-9) Clear Specific [place], UA (test code = 1.015 1.001-1.035 5811-5) pH, UA (test code = 5803-2) 5.0 5.0-8.0 Protein, UA (test code = 22969-0) Negative Negative Glucose, UA (test code = 365) Negative Negative Ketones, UA (test code = 2514-8) Negative Negative Bilirubin, UA (test code = 14009-9) Negative Negative Blood, UA (test code = 58922-6) Small Negative A Nitrite, UA (test code = 5802-4) Negative Negative Leukocytes, UA (test code = 5799-2) Negative Negative Urobilinogen, UA (test code = 0.2 mg/dL 0.2-1.0 73520-9) Specimen Source (test code = 2795) Lab Interpretation (test code = Abnormal 96733-9) [facility] If [id number] 05:13:27 Test Item Value Reference Range Interpretation Comments Color, UA (test code = 5778-6) Yellow Clarity, UA (test code = 5767-9) Clear Specific [place], UA (test code = 1.015 1.001-1.035 5811-5) pH, UA (test code = 5803-2) 5.0 5.0-8.0 Protein, UA (test code = 45302-9) Negative Negative Glucose, UA (test code = 365) Negative Negative Ketones, UA (test code = 2514-8) Negative Negative Bilirubin, UA (test code = 67947-1) Negative Negative Blood, UA (test code = 16423-9) Small Negative A Nitrite, UA (test code = 5802-4) Negative Negative Leukocytes, UA (test code = 5799-2) Negative Negative Urobilinogen, UA (test code = 0.2 mg/dL 0.2-1.0 45115-1) Specimen Source (test code = 2795) Lab Interpretation (test code = Abnormal 45738-9) [facility] Center[facility] with [facility] If [id number] 05:13:27 Test Item Value Reference Range Interpretation Comments Color, UA (test code = 5778-6) Yellow Clarity, UA (test code = 5767-9) Clear Specific [place], UA (test code = 1.015 1.001-1.035 5811-5) pH, UA (test code = 5803-2) 5.0 5.0-8.0 Protein, UA (test code = 38774-4) Negative Negative Glucose, UA (test code = 365) Negative Negative Ketones, UA (test code = 2514-8) Negative Negative Bilirubin, UA (test code = 68841-6) Negative Negative Blood, UA (test code = 53737-3) Small Negative A Nitrite, UA (test code = 5802-4) Negative Negative Leukocytes, UA (test code = 5799-2) Negative Negative Urobilinogen, UA (test code = 0.2 mg/dL 0.2-1.0 73145-0) Specimen Source (test code = 2795) Lab Interpretation (test code = Abnormal 04328-6) [facility] with [facility] If [id number] 05:13:27 Test Item Value Reference Range Interpretation Comments Color, UA (test code = 5778-6) Yellow Clarity, UA (test code = 5767-9) Clear Specific [place], UA (test code = 1.015 1.001-1.035 5811-5) pH, UA (test code = 5803-2) 5.0 5.0-8.0 Protein, UA (test code = 57307-6) Negative Negative Glucose, UA (test code = 365) Negative Negative Ketones, UA (test code = 2514-8) Negative Negative Bilirubin, UA (test code = 70628-1) Negative Negative Blood, UA (test code = 77341-7) Small Negative A Nitrite, UA (test code = 5802-4) Negative Negative Leukocytes, UA (test code = 5799-2) Negative Negative Urobilinogen, UA (test code = 0.2 mg/dL 0.2-1.0 72168-8) Specimen Source (test code = 2795) Lab Interpretation (test code = Abnormal 15105-8) [facility] with Microscopic If [id number] 05:13:27 Test Item Value Reference Range Interpretation Comments Color, UA (test code = 5778-6) Yellow Clarity, UA (test code = 5767-9) Clear Specific [place], UA (test code = 1.015 1.001-1.035 5811-5) pH, UA (test code = 5803-2) 5.0 5.0-8.0 Protein, UA (test code = 12822-4) Negative Negative Glucose, UA (test code = 365) Negative Negative Ketones, UA (test code = 2514-8) Negative Negative Bilirubin, UA (test code = 83649-8) Negative Negative Blood, UA (test code = 47807-7) Small Negative A Nitrite, UA (test code = 5802-4) Negative Negative Leukocytes, UA (test code = 5799-2) Negative Negative Urobilinogen, UA (test code = 0.2 mg/dL 0.2-1.0 85200-7) Specimen Source (test code = 2795) Lab Interpretation (test code = Abnormal 40899-9) [facility] Center[facility]INAL[facility] WITH MICROSCOPIC IF [id number] 05:13:27 Test Item Value Reference Range Interpretation [...] SOURCE(BEAKER) (test code = 2795) Urinalysis Microscopic [id number] 05:13:21 Test Item Value Reference Range Interpretation Comments RBC, UA (test code = <5 See_Comment [Autom ated message] 799-7) The system [employer] generated this result transmitted ref erence range: /HPF. Th e reference range was not used to int erpret this result as normal/abnormal . WBC, UA (test code = None Seen See_Comment [Autom ated message] 57870-7) The system [employer] generated this result transmitted ref erence range: /HPF. Th e reference range was not used to int erpret this result as normal/abnormal . Bacteria, UA (test Occasional code = 69939-8) SQUAMOUS EPITHELIAL None Seen See_Comment [Automa josh message] (test code = 15818-6) The sy stem which generated this result transmitted ref erence range: /HPF. Th e reference range was not used to int erpret this result as normal/abnormal . HYALINE CASTS (test 0-5 See_Comment [Automa josh message] code = 5796-8) The system [employer] generated this result transmitted ref erence range: /LPF. Th e reference range was not used to int erpret this result as normal/abnormal . [facility] Microscopic [id number] 05:13:21 Test Item Value Reference Range Interpretation Comments RBC, UA (test code = <5 See_Comment [Autom ated message] 799-7) The system [employer] generated this result transmitted ref erence range: /HPF. Th e reference range was not used to int erpret this result as normal/abnormal . WBC, UA (test code = None Seen See_Comment [Autom ated message] 78252-7) The system [employer] generated this result transmitted ref erence range: /HPF. Th e reference range was not used to int erpret this result as normal/abnormal . Bacteria, UA (test Occasional code = 94236-6) SQUAMOUS EPITHELIAL None Seen See_Comment [Automa josh message] (test code = 21347-9) The sy stem which generated this result transmitted ref erence range: /HPF. Th e reference range was not used to int erpret this result as normal/abnormal . HYALINE CASTS (test 0-5 See_Comment [Automa josh message] code = 5796-8) The system [employer] generated this result transmitted ref erence range: /LPF. Th e reference range was not used to int erpret this result as normal/abnormal . [facility] Microscopic [id number] 05:13:21 Test Item Value Reference Range Interpretation Comments RBC, UA (test code = <5 See_Comment [Autom ated message] 799-7) The system [employer] generated this result transmitted ref erence range: /HPF. Th e reference range was not used to int erpret this result as normal/abnormal . WBC, UA (test code = None Seen See_Comment [Autom ated message] 49071-8) The system [employer] generated this result transmitted ref erence range: /HPF. Th e reference range was not used to int erpret this result as normal/abnormal . Bacteria, UA (test Occasional code = 84652-8) SQUAMOUS EPITHELIAL None Seen See_Comment [Automa josh message] (test code = 17457-7) The sy stem which generated this result transmitted ref erence range: /HPF. Th e reference range was not used to int erpret this result as normal/abnormal . HYALINE CASTS (test 0-5 See_Comment [Automa josh message] code = 5796-8) The system [employer] generated this result transmitted ref erence range: /LPF. Th e reference range was not used to int erpret this result as normal/abnormal . [facility] Microscopic [id number] 05:13:21 Test Item Value Reference Range Interpretation Comments RBC, UA (test code = <5 See_Comment [Autom ated message] 799-7) The system [employer] generated this result transmitted ref erence range: /HPF. Th e reference range was not used to int erpret this result as normal/abnormal . WBC, UA (test code = None Seen See_Comment [Autom ated message] 05081-6) The system [employer] generated this result transmitted ref erence range: /HPF. Th e reference range was not used to int erpret this result as normal/abnormal . Bacteria, UA (test Occasional code = 85301-3) SQUAMOUS EPITHELIAL None Seen See_Comment [Automa josh message] (test code = 22089-4) The sy stem which generated this result transmitted ref erence range: /HPF. Th e reference range was not used to int erpret this result as normal/abnormal . HYALINE CASTS (test 0-5 See_Comment [Automa josh message] code = 5796-8) The system [employer] generated this result transmitted ref erence range: /LPF. Th e reference range was not used to int erpret this result as normal/abnormal . [facility]scopic [id number] 05:13:21 Test Item Value Reference Range Interpretation Comments RBC, UA (test code = <5 See_Comment [Autom ated message] 799-7) The system [employer] generated this result transmitted ref erence range: /HPF. Th e reference range was not used to int erpret this result as normal/abnormal . WBC, UA (test code = None Seen See_Comment [Autom ated message] 64787-3) The system [employer] generated this result transmitted ref erence range: /HPF. Th e reference range was not used to int erpret this result as normal/abnormal . Bacteria, UA (test Occasional code = 37346-2) SQUAMOUS EPITHELIAL None Seen See_Comment [Automa josh message] (test code = 30724-7) The sy stem which generated this result transmitted ref erence range: /HPF. Th e reference range was not used to int erpret this result as normal/abnormal . HYALINE CASTS (test 0-5 See_Comment [Automa josh message] code = 5796-8) The system [employer] generated this result transmitted ref erence range: /LPF. Th e reference range was not used to int erpret this result as normal/abnormal . [facility] Microscopic [id number] 05:13:21 Test Item Value Reference Range Interpretation Comments RBC, UA (test code = <5 See_Comment [Autom ated message] 799-7) The system [employer] generated this result transmitted ref erence range: /HPF. Th e reference range was not used to int erpret this result as normal/abnormal . WBC, UA (test code = None Seen See_Comment [Autom ated message] 84274-8) The system [facility] generated this result transmitted ref erence range: /HPF. Th e reference range was not used to int erpret this result as normal/abnormal . Bacteria, UA (test Occasional code = 63587-9) SQUAMOUS EPITHELIAL None Seen See_Comment [Automa josh message] (test code = 24355-1) The sy stem which generated this result transmitted ref erence range: /HPF. Th e reference range was not used to int erpret this result as normal/abnormal . HYALINE CASTS (test 0-5 See_Comment [Automa josh message] code = 5796-8) The system [facility] generated this result transmitted ref erence range: /LPF. Th e reference range was not used to int erpret this result as normal/abnormal . [facility]IN[facility]IS [id number] 05:13:21 Test Item Value Reference Range Interpretation Comments RBC UA-MANUAL (BEAKER) (test <5 /HPF code = 1659) WBC UA-MANUAL (BEAKER) (test None Seen /HPF code = 1661) BACTERIA (BEAKER) (test code = Occasional 517) SQUAMOUS EPITHELIAL MANUAL None Seen /HPF (BEAKER) (test code = 1663) HYALINE CASTS MANUAL (BEAKER) 0-5 /LPF (test code = 1665) TROPONIN [id number] 05:01:28 Test Item Value Reference Range Interpretation [...] failure, acidosis, acute neurological disease, and persistent tachyarrhythmia.Modeling Analyst ID - LITOBASIC METABOLIC PANEL 2021-11-08 05:00:17 [...] 1092) DATA TO CALCULA TE ESTIMATED GFR. Modeling Analyst ID - LITOOperator ID - LITOOperator ID - LITOOperator ID - LITOOperator ID - LITOOperator ID - LITOOperator ID - LITOOperator ID - LITOOperator ID - LITOOperator ID - LITOB-TYPE NATRIURETIC FACTOR (BNP)2021-11-08 05:00:11 Test Item Value Reference Range Interpretation Comments B-TYPE NATRIURETIC PEPTIDE (BEAKER) 480 pg/mL 0-100 H (test code = 700) Modeling Analyst ID - LITOCBC W/PLT COUNT & AUTO [id number] 04:56:38 Test Item Value Reference Range Interpretation [...] H PERCENT (BEAKER) (test code = 2801) [id number] 04:53:09 Test Item Value Reference Range Interpretation Comments D-DIMER QUANTITATIVE 5.80 MG/L FEU <0.50 H Final Information (BEAKER) (test code = (Auto Output) 671) REGARDING D-DIMER RESULTS: The 98% NPV (Negative Predictive Value) for DVT/PE exclusion is 0.50 mg/LFEU as suggested by the manager registration and as approved by the FDA.PROTHROMBIN [id number] 04:52:30 Test Item Value Reference Range Interpretation Comments PROTIME (BEAKER) 11.0 seconds 9.3-12.0 Final Infor mation (test code = 759) (Auto Outp ut) INR (BEAKER) (test 1.00 See_Comment Final Inf ormation code = 370) (Auto Output) [Automated mess age] The system [employer] generated this result transmitted ref erence range: <=5.90. The reference range was not used to int erpret this result as normal/abnormal . RECOMMENDED COUMADIN/WARFARIN INR THERAPY RANGESSTANDARD DOSE: 2.0 - 3.0 Includes: PROPHYLAXIS for venous thrombosis, systemic embolization; TREATMENT for venous thrombosis and/or pulmonary embolus.HIGH RISK: Target INR is 2.5-3.5 for patients with mechanical heart valves.HEMOGLOBIN [id number] 04:51:27 Test Item Value Reference Range Interpretation Comments HEMOGLOBIN A1C (BEAKER) (test code = 5.7 % 4.3-6.1 368) Modeling Analyst ID - LITOHEPATIC FUNCTION [id number] 04:50:07 Test Item Value Reference Range Interpretation [...] (test code = 31 U/L 5-50 347) Modeling Analyst ID - LITOOperator ID - LITOOperator ID - LITOOperator ID - LITOOperator ID - LITOOperator ID - LITOOperator ID - [id number] 04:49:45 Test Item Value Reference Range Interpretation Comments MAGNESIUM (BEAKER) (test code = 2.8 mg/dL 1.5-3.0 627) Modeling Analyst ID - LITOOperator ID - LITOOperator ID - LITOOperator ID - ROSALBA [id number] 04:46:46 Test Item Value Reference Range Interpretation Comments PHOSPHORUS (BEAKER) (test code = 4.8 mg/dL 2.5-4.5 H 604) Modeling Analyst ID - LITOPOCT-GLUCOSE [id number] 04:11:36 Test Item Value Reference Range Interpretation Comments POC-GLUCOSE METER 156 mg/dL 70-110 H : TESTED A T [address] 1317 (BEAKER) (test code [address], = 1538) [facility] 77 478: Modeling Analyst/Techni [place] ID = [id number] for Real Lei RAD, ABDOMEN/KUB 1 VIEW [id number] 04:02:00Reason for exam:->NG [facility] : 1950 Sex: MFINAL [...] on 204:02 AMRAD, CHEST, 1 VIEW, NON [id number] 03:57:00Reason for exam:->AHRFShould this be performed at the bedside?->Yes [facility] CENTERName: MIKHAIL CARRION : 1950 Sex: MFINAL [...] MDReport Verified Date/Time: 11/08/2021 03:57:41 Blood gas, [id number] 03:54:11 Test Item Value Reference Range Interpretation Comments pH, Arterial (test code 7.38 7.35-7.45 = 2744-1) pCO2, Arterial (test 40 See_Comment [Autom ated code = 2018-) message] The system which generated this result [...] 75 Lab Interpretation Abnormal (test code = 31316-5) [facility], [id number] 03:54:11 Test Item Value Reference Range Interpretation [...] 75 Lab Interpretation Abnormal (test code = 95197-8) [facility] [place] gas, [id number] 03:54:11 Test Item Value Reference Range Interpretation [...] 75 Lab Interpretation Abnormal (test code = 79716-3) [facility], [id number] 03:54:11 Test Item Value Reference Range Interpretation [...] 75 Lab Interpretation Abnormal (test code = 75604-1) [facility] [place] gas, [id number] 03:54:11 Test Item Value Reference Range Interpretation [...] 75 Lab Interpretation Abnormal (test code = 50958-8) [facility], [id number] 03:54:11 Test Item Value Reference Range Interpretation Comments pH, Arterial (test code 7.38 7.35-7.45 = 2744-1) pCO2, Arterial (test 40 See_Comment [Autom ated code = 2018-) message] The system which generated this result [...] 75 Lab Interpretation Abnormal (test code = 85545-9) [facility], [id number] 03:54:11 Test Item Value Reference Range Interpretation [...]
[2022-06-18] MEDS ORDERED: ALBUTEROL 2.5 MG/3 ML NEB SOL ONE (08:33)
[2022-06-18] MEDS ORDERED: Magnesium Sulfate 2gm IVPB 2 G/50 ML BAG IV ONE (08:33)
[2022-06-18] MEDS ORDERED: IPRATROPIUM BROM 0.5MG/2.5ML ONE (08:33)
[2022-06-18] MEDS ORDERED: METHYLPREDNISOLONE 125 MG INJ ONE (08:33)
[2022-06-18 08:58] LABS: Absolute Lymphocytes (CBC) 1.2 K/uL (0.7-4.9); Hematocrit 39.1 % (39.6-49.0); Lymphocytes % 7.7 % (15.3-44.8); MCV 87.3 fL (80-100); MPV 9.7 fL (7.6-11.3); RBC Red Blood Cell Count 4.48 M/uL (4.33-5.43)
--- NOTE | 2022-06-18 09:09 | RAD REPORT ---
EXAM DESCRIPTION: RAD - Chest Single View - 06/18/2022 8:54 am CLINICAL HISTORY: SOB COMPARISON: Chest Single View dated 06/14/2022; Chest Single View dated 05/31/2022; Chest Single View dated 05/14/2022; Chest Single View dated 05/13/2022; Chest Single View dated 10/05/2021; Thorax Wo C on dated 05/13/2022 FINDINGS: Lines: None. Lungs: Coarsened interstitium with chronic thickening of the right lung base. Pleural: Small chronic right pleural effusion. Cardiac: Cardiomegaly. Mediastinum: Within normal limits. Bones: No acute fractures. Other: None IMPRESSION: Chronic lung changes including small right pleural effusion and underlying scarring. No significant change compared 06/14/2022.
[2022-06-18 10:32] LABS: Potassium 4.6 mmol/L (3.5-5.1)
[2022-06-18 10:34] LABS: Troponin High Sensitivity 199.3 pg/mL (<58.9)
--- NOTE | 2022-06-18 10:58 | EDPHYS ---
Physician Documentation [facility] Name: Gabo Chow Sr Age: 71 yrs Sex: Male : 1950 Arrival Date: 06/18/2022 Time: 08:21 Bed 19 Private MD: ED Physician Rober Burgos HPI: 06/18 08:24 This 71 yrs old Male presents to ER via Unassigned with complaints of COPD exacerbation.ms3 08:24 The patient has shortness of breath at rest. Onset: The symptoms/episode began/occurred ms3 this morning. Duration: The symptoms are continuous, and are unchanged since they started. The patient's shortness of breath is aggravated by exertion, light activity, walking, is alleviated by nothing. Associated signs and symptoms: Pertinent negatives: chest pain, non-productive cough, fever, nausea, vomiting. Severity of symptoms: At their worst the symptoms were severe in the emergency department the symptoms have improved. Historical: - Allergies: 08:28 No Known Allergies; ss - PMHx: 08:28 CHF; NM; Hypertension; COPD; HTN; Myocardial infarction; ss - PSHx: 08:28 heart stent; Stented artery; ss - Immunization history:: Client reports having NOT received the Covid vaccine. - Social history:: Smoking status: Patient/guardian denies using tobacco, Stopped _ months ago 3. ROS: 08:24 Constitutional: Negative for fever, and chills. Neck: Negative for injury, pain, and ms3 swelling, Cardiovascular: Negative for chest pain, and palpitations. 08:24 MS/Extremity: Negative for injury and deformity, Skin: Negative for injury, rash, and discoloration. 08:24 Respiratory: Positive for shortness of breath, at rest. 08:24 All other systems are negative. Exam: 08:24 Constitutional: This is a well developed, well nourished patient who is awake, alert, ms3 and in no acute distress. Head/Face: Normocephalic, atraumatic. Neck: Trachea midline, no cervical lymphadenopathy. Supple, full range of motion without nuchal rigidity, or vertebral point tenderness. No Meningismus. Chest/axilla: Normal chest wall appearance and motion. Nontender with no deformity. Abdomen/GI: Soft, non-tender, with normal bowel sounds. No distension or tympany. No guarding or rebound. No evidence of tenderness throughout. Skin: Warm, dry with normal turgor. Normal color with no rashes, no lesions, and no evidence of cellulitis. MS/ Extremity: Pulses equal, no cyanosis. Neurovascular intact. Full, normal range of motion. 08:24 Cardiovascular: Rate: tachycardic, Rhythm: regular, Pulses: no pulse deficits are appreciated. 08:24 Respiratory: moderate respiratory distress is noted, Respirations: prolonged exhalation, Breath sounds: decreased breath sounds, that are moderate, wheezing: is heard diffusely. 09:16 ECG was reviewed by the Attending Physician. ms3 Vital Signs: 08:25 Pulse Ox 68% on R/A; ap3 08:26 BP 171 / 98; Pulse 104; Resp 22; Temp 97.6(O); Pulse Ox 95% on R/A; Weight 77.11 kg; ss Height 6 ft. 0 in. (182.88 cm); Pain 0/10; 09:57 BP 142 / 93; Pulse 75; Pulse Ox 100% on 2 lpm NC; ap3 11:39 BP 138 / 68; Pulse 81; Pulse Ox 100% on 2 lpm NC; ap3 08:26 Body Mass Index 23.06 (77.11 kg, 182.88 cm) ss MDM: 08:21 Patient medically screened. ms3 08:24 Differential diagnosis: CHF exacerbation, Chronic Obstructive Pulmonary Disease ms3 Myocardial Infarction pneumonia, pulmonary edema. 18:03 Data reviewed: vital signs, nurses notes, lab test result(s), EKG, radiologic studies, ms3 and as a result, I will admit patient. Counseling: I had a detailed discussion with the patient and/or guardian regarding: the historical points, exam findings, and any diagnostic results supporting the discharge/admit diagnosis, lab results, radiology results, the need for further work-up and treatment in the hospital. ED course: Discussed case with Dr Clements and he accepts patient. All questions answered. Discussed plan for admission with patient and he understands/ agrees with plan.. 06/18 08:23 Order name: Basic Metabolic Panel; Complete Time: 10:41 ms3 12 08:23 Order name: CBC with Diff ms3 06/18 08:23 Order name: NT PRO-BNP; Complete Time: 10:41 ms3 06/18 08:23 Order name: Troponin HS; Complete Time: 10:41 ms3 06/18 11:01 Order name: SARS RAPID ap3 06/18 13:00 Order name: Manual Differential EDMS 06/18 08:23 Order name: XRAY Chest (1 view); Complete Time: 09:19 ms3 06/18 08:23 Order name: EKG; Complete Time: 08:24 ms3 06/18 08:23 Order name: Cardiac monitoring; Complete Time: 08:31 ms3 06/18 11:57 Order name: Diet Heart Healthy; Complete Time: 11:58 ss 06/18 12:17 Order name: Social Service Consult EDMS 06/18 08:23 Order name: EKG - Nurse/Tech; Complete Time: 09:00 ms3 06/18 08:23 Order name: IV Saline Lock; Complete Time: 09:23 ms3 06/18 08:23 Order name: Labs collected and sent; Complete Time: 08:49 ms3 06/18 08:23 Order name: O2 Per Protocol; Complete Time: 08:31 ms3 06/18 08:23 Order name: O2 Sat Monitoring; Complete Time: 08:31 ms3 06/18 09:22 Order name: consult Order-Evangelist Carter MD (Pulmonology); Complete Time: 11:53 ms3 EC:16 Rate is 69 beats/min. Rhythm is regular. Left axis deviation noted. ME interval is ms3 normal. QRS interval is prolonged. QT interval is normal. Clinical impression: NSR w/ Non-specific ST/T Changes and LBBB. Interpreted by me. Reviewed by me. Administered Medications: 09:36 Drug: Albuterol - atroVENT (ipratropium) (3:1) (2.5 mg - 0.5 mg) 3 ml Route: Nebulizer; ap3 09:56 Follow up: Response: No adverse reaction ap3 09:37 Drug: SOLU-Medrol (methylPrednisoLONE) 125 mg Route: IVP; Site: right hand; ap3 09:57 Follow up: Response: No adverse reaction ap3 09:37 Drug: Magnesium Sulfate 2 grams Route: IVPB; Infused Over: 2 hrs; Site: right hand; ap3 12:48 Follow up: IV Status: Completed infusion; IV Intake: 50ml ap3 Disposition Summary: 06/18/22 10:57 Hospitalization Ordered Hospitalization Status: Inpatient Admission ms3 Provider: Ruslan Clements ms3 Location: Telemetry/MedSurg (Inpatient) ms3 Condition: Stable ms3 Problem: new ms3 Symptoms: are unchanged ms3 Bed/Room Type: Standard ms3 Room Assignment: 210(06/18/22 12:36) eb Diagnosis - COPD/ Chronic obstructive pulmonary disease with (acute) exacerbation ms3 - Elevated Troponin ms3 - Heart failure, unspecified ms3 Forms: - Medication Reconciliation Form ms3 - SBAR form ms3 Signatures: Dispatcher [employer] EDSaniya Kohli RN RN ss Kellie Parrish RN RN ap3 Ruth Lovell Marcus, DO DO ms3 Corrections: (The following items were deleted from the chart) 12:36 10:57 ms3 eb
--- NOTE | 2022-06-18 10:58 | ER ---
Nurse's Notes [facility] Name: Gabo Chow Sr Age: 71 yrs Sex: Male : 1950 Arrival Date: 06/18/2022 Time: 08:21 Bed 19 Private MD: Diagnosis: COPD/ Chronic obstructive pulmonary disease with (acute) exacerbation;Elevated Troponin;Heart failure, unspecified Presentation: 06/18 08:26 Chief complaint: Patient states: SOB that began at 0600 this morning. Coronavirus ss screen: Client denies travel out of the [place] in the last 14 days. Ebola Screen: Patient denies exposure to infectious person. Patient denies travel to an Ebola-affected area in the 21 days before illness onset. Initial Sepsis Screen: Does the patient meet any 2 criteria? RR > 20 per min. HR > 90 bpm. Does the patient have a suspected source of infection? No. Patient's initial sepsis screen is negative. Risk Assessment: Do you want to hurt yourself or someone else? Patient reports no desire to harm self or others. Note EMS administered A\T\A treatment x 1. Onset of symptoms was June 18, 2022. 08:26 Method Of Arrival: EMS: [facility] ss 08:26 Acuity: ALLI 3 ss Historical: - Allergies: 08:28 No Known Allergies; ss - PMHx: 08:28 CHF; PR; Hypertension; COPD; HTN; Myocardial infarction; ss - PSHx: 08:28 heart stent; Stented artery; ss - Immunization history:: Client reports having NOT received the Covid vaccine. - Social history:: Smoking status: Patient/guardian denies using tobacco, Stopped _ months ago 3. Screenin:00 Abuse screen: Denies threats or abuse. Abuse screen: Denies threats or abuse. ap3 Nutritional screening: No deficits noted. Tuberculosis screening: No symptoms or risk factors identified. 09:24 [facility] ED Fall Risk Assessment (Adult) History of falling in the last 3 months, ap3 including since admission No falls in past 3 months (0 pts) Confusion or Disorientation No (0 pts) Intoxicated or Sedated No (0 pts) Impaired Gait Yes (1 pt) Mobility Assist Device Used No (0 pt) Altered Elimination No (0 pt) Score/Fall Risk Level 0 - 2 = Low Risk Oriented to surroundings, Maintained a safe environment, Educated pt \T\ family on fall prevention, incl call for assistance when getting out of bed, Assessed \T\ reinforced patient's understanding of fall precautions, Provided non-skid footwear, Hourly rounding (assess needs \T\ fall precautionary measures) done, Used ambulatory aids as needed (educated on \T\ assisted with), Used gait belt as appropriate. Assessment: 09:01 General: Appears comfortable, Behavior is calm, cooperative. Pain: Denies pain. Neuro: ap3 Level of Consciousness is awake, alert, obeys commands, Oriented to person, place, time, situation, Speech is normal. Cardiovascular: Patient's skin is warm and dry. Respiratory: Reports shortness of breath Airway is patent Respiratory effort is even, unlabored, Respiratory pattern is regular, symmetrical. 10:48 Reassessment: No changes from previously documented assessment. Patient and/or family ap3 updated on plan of care and expected duration. Pain level reassessed. 11:45 Reassessment: No changes from previously documented assessment. Patient and/or family ap3 updated on plan of care and expected duration. Pain level reassessed. Patient is alert, oriented x 3, equal unlabored respirations, skin warm/dry/pink. Patient states feeling better. Patient states symptoms have improved. 12:41 Reassessment: Nurse attempted report. was informed receiving nurse will return my phone ap3 call. 13:17 Reassessment: nurse attempted report. was informed the nurse will call be back. ap3 13:25 Reassessment: report has been given to receiving nurse. ap3 Vital Signs: 08:25 Pulse Ox 68% on R/A; ap3 08:26 BP 171 / 98; Pulse 104; Resp 22; Temp 97.6(O); Pulse Ox 95% on R/A; Weight 77.11 kg; ss Height 6 ft. 0 in. (182.88 cm); Pain 0/10; 09:57 BP 142 / 93; Pulse 75; Pulse Ox 100% on 2 lpm NC; ap3 11:39 BP 138 / 68; Pulse 81; Pulse Ox 100% on 2 lpm NC; ap3 08:26 Body Mass Index 23.06 (77.11 kg, 182.88 cm) ED Course: 08:21 Patient arrived in ED. ms3 08:21 Rober Burgos DO is Attending Physician. ms3 08:28 Triage completed. ss 08:28 Arm band placed on left wrist. ss 08:31 Kellie Parrish, RN is Primary Nurse. ap3 08:56 XRAY Chest (1 view) In Process Unspecified. EDMS 09:00 Patient has correct armband on for positive identification. Placed in gown. Bed in low ap3 position. Call light in reach. Side rails up X 1. school bus monitor on. Pulse ox on. NIBP on. Door closed. Noise minimized. 09:00 Missed attempt(s): 22 gauge in right hand. ap3 09:13 Missed attempt(s): 22 gauge antecubital area. mm9 10:57 Ruslan Clements MD is Hospitalizing Provider. ms3 11:44 SARS RAPID Sent. ap3 12:42 No provider procedures requiring assistance completed. Patient admitted, IV remains in ap3 place. Administered Medications: 09:36 Drug: Albuterol - atroVENT (ipratropium) (3:1) (2.5 mg - 0.5 mg) 3 ml Route: Nebulizer; ap3 09:56 Follow up: Response: No adverse reaction ap3 09:37 Drug: SOLU-Medrol (methylPrednisoLONE) 125 mg Route: IVP; Site: right hand; ap3 09:57 Follow up: Response: No adverse reaction ap3 09:37 Drug: Magnesium Sulfate 2 grams Route: IVPB; Infused Over: 2 hrs; Site: right hand; ap3 12:48 Follow up: IV Status: Completed infusion; IV Intake: 50ml ap3 Medication: 09:02 VIS not applicable for this client. ap3 Intake: 12:48 IV: 50ml; Total: 50ml. ap3 Outcome: 10:57 Decision to Hospitalize by Provider. ms3 12:42 Admitted to Med/surg ap3 12:42 Condition: good 13:41 Patient left the ED. ap3 Signatures: Dispatcher [employer] EDSaniya Kohli RN RN ss Prokisch, Amanda, RN RN ap3 Rober Burgos DO DO ms3 Nga Higuera mm9
[2022-06-18 12:11] LABS: SARS-CoV-2 Antigen Rapid Res Negative (Negative)
--- NOTE | 2022-06-18 12:26 | P.CNS ---
Date of Consult: 06/18/22 Reason for Consult: Respiratory distress Chief Complaint: Shortness of breath History of Present Illness: Patient is 71 years of age well-known to me recurrent hospital admissions he was just recently discharged came back again from me that he is compliant with his inhalers diuretic the cold weather that triggered off the spells became very short of breath and it appeared in the hospital still short of breath apparently his prednisone dose was also reduced denies any cough congestion chest x-ray no change Allergies No Known Allergies Allergy (Verified 06/14/22 22:26) Home Medications: Albuterol Sulfate [Albuterol Sulfate Hfa] 1 puff IH DAILY 02/05/22 Aspirin [Aspirin EC] 81 mg PO DAILY 04/05/22 Clopidogrel Bisulfate [Plavix] 75 mg PO DAILY 04/05/22 Metoprolol Tartrate 25 mg PO BID 04/05/22 Apixaban [Eliquis] 5 mg PO BID #60 tab 04/09/22 Fluticasone/Salmeterol [Advair 250-50 Diskus] 1 each IH BID #1 kit 05/13/22 predniSONE [Deltasone*] 10 mg PO BID #10 tab 05/13/22 Furosemide [Lasix] 80 mg PO DAILY 06/14/22 Pantoprazole Sodium [Protonix] 40 mg PO DAILY 06/14/22 Rosuvastatin Calcium [Crestor] 20 mg PO BEDTIME 06/14/22 Vericiguat [Verquvo] 1 tab PO BEDTIME 06/16/22 predniSONE [Prednisone*] 20 mg PO BID 5 Days #10 tab 06/17/22 - Past Medical/Surgical History Diabetic: No -: HTN -: COPD -: HTN -: CHF -: CKD followed by Dr. Roy -: CAD -: A. fib on chronic anticoagulation -: heart stent -: Heart cath ever CAD Psychosocial/ Personal History: Patient lives at home with his . - Family History Father Medical History: Heart disease Notes: Heart attack Mother Medical History: Lung disease Notes: COPd - Social History Smoking Status: Unknown if ever smoked Alcohol use: Yes CD- Drugs: No Caffeine use: Yes Review of Systems 10-point ROS is otherwise unremarkable Respiratory: Cough, Shortness of Breath Physical Examination General: Alert, In no apparent distress, Oriented x3 Respiratory: Diminished Cardiovascular: No edema, Normal pulses, Regular rate/rhythm, Normal S1 S2 Laboratory Data (last 24 hrs) 06/18/22 09:28: Sodium 140 D, Potassium 4.6, BUN 75 H, Creatinine 2.33 H, Glucose 126 H 06/18/22 08:48: WBC 16.10 H, Hgb 12.6 L, Hct 39.1 L, Plt Count 287 - Problems (1) COPD exacerbation Current Visit: Yes Status: Acute Plan: Patient is 71 years of age history of recurrent hospital admissions for COPD exacerbation he also has chronic renal failure his creatinine is lower than usual he does take Lasix 80 mg a day White count is minimally elevated troponin elevated from demand hypoxemia I presume somehow added some Zithromax to be taken on an regular basis for his frequent exacerbations appears to do better on prednisone 20 mg daily continue with Lasix 80 mg he does have Advair at home quite possible that he has underlying anxiety that is precipitating this frequent admissions have added some BuSpar
[2022-06-18 13:00] LABS: Blood Morphology Comment NOT SEEN (NOT SEEN); Platelet Estimate ADEQ
[2022-06-18] MEDS ORDERED: ACETAMINOPHEN 500 MG TAB PO PRN (13:22)
[2022-06-18] MEDS ORDERED: ONDANSETRON 4 MG/2 ML VIAL IV PRN (13:22)
--- NOTE | 2022-06-18 13:53 | P.HP ---
Certification for Inpatient Patient admitted to: Inpatient With expected LOS: >2 Midnights Practitioner: I am a practitioner with admitting privileges, knowledge of patient current condition, hospital course, and medical plan of care. Services: Services provided to patient in accordance with Admission requirements found in Title 42 Section 412.3 of the Code of Federal Regulations Patient History Date of Service: 06/18/22 Reason for admission: Shortness of breath History of Present Illness: Mr. Chow, is a 71 year old male with PMH of COPD on chronic steroids, chronic diastolic congestive heart failure, severe CAD with stents, atrial fibrillation on Eliquis, CKD3 who presents to the emergency room department for complaints of shortness of breath, cough and wheezing. Patient was recently discharged from the hospital on 06/17/22 for similar complaints. He states that he woke up around 6 am today with dyspnea, nonproductive cough and mild nausea, he took his nebulizer treatment and reports no improvement. He then called EMS to be brought to the hospital since his treatment was ineffective. He reports associated symptoms of cough and nausea. He denies any chest pain, headaches or dizziness. Symptoms are aggravated with exertion with no relief from nebulizer treatment. He was evaluated at the bedside in the ER, patient appeared flushed with labored breathing and audible wheezing. Patient will be admitted for further evaluation and management of COPD exacerbation and elevated troponin of 199. He had a heart catheterization on 02/17/22 with severe CAD and an ECHO on 01/28/22 with low normal EF (40%). Allergies No Known Allergies Allergy (Verified 06/14/22 22:26) Home medications list reviewed: Yes Home Medications: Albuterol Sulfate [Albuterol Sulfate Hfa] 1 puff IH DAILY 02/05/22 Aspirin [Aspirin EC] 81 mg PO DAILY 04/05/22 Clopidogrel Bisulfate [Plavix] 75 mg PO DAILY 04/05/22 Metoprolol Tartrate 25 mg PO BID 04/05/22 Apixaban [Eliquis] 5 mg PO BID #60 tab 04/09/22 Fluticasone/Salmeterol [Advair 250-50 Diskus] 1 each IH BID #1 kit 05/13/22 predniSONE [Deltasone*] 10 mg PO BID #10 tab 05/13/22 Furosemide [Lasix] 80 mg PO DAILY 06/14/22 Pantoprazole Sodium [Protonix] 40 mg PO DAILY 06/14/22 Rosuvastatin Calcium [Crestor] 20 mg PO BEDTIME 06/14/22 Vericiguat [Verquvo] 1 tab PO BEDTIME 06/16/22 predniSONE [Prednisone*] 20 mg PO BID 5 Days #10 tab 06/17/22 - Past Medical/Surgical History Diabetic: No -: HTN -: COPD -: HTN -: CHF -: CKD followed by Dr. Roy -: CAD -: A. fib on chronic anticoagulation -: heart stent -: Heart cath evere CAD Psychosocial/ Personal History: Patient lives at home with his . - Family History Father -: Heart disease Notes: Heart attack Mother -: Lung disease Notes: COPd - Social History Smoking Status: Former smoker Alcohol use: Yes CD- Drugs: No Caffeine use: Yes Review of Systems 10-point ROS is otherwise unremarkable Respiratory: Cough, Dry, Shortness of Breath, SOB with Excertion Cardiovascular: Orthopnea Gastrointestinal: Nausea Physical Examination - Vital Signs Temperature: 97.6 F Blood Pressure: 138/67 Pulse: 77 Respirations: 24 Pulse Ox (%): 99 - Physical Exam General: Alert, Oriented x3 HEENT: Atraumatic, Normocephalic Neck: Supple, 2+ carotid pulse no bruit Respiratory: Expiratory wheezes Cardiovascular: No edema, Normal pulses Capillary refill: <2 Seconds Gastrointestinal: Normal bowel sounds, Soft and benign Musculoskeletal: No clubbing, No swelling Integumentary: Other (Flushed) Neurological: Normal speech, Normal tone Lymphatics: No axilla or inguinal lymphadenopathy - Studies Laboratory Data (last 24 hrs) 06/18/22 09:28: Sodium 140 D, Potassium 4.6, BUN 75 H, Creatinine 2.33 H, Glucose 126 H 06/18/22 08:48: WBC 16.10 H, Hgb 12.6 L, Hct 39.1 L, Plt Count 287 Assessment and Plan - Plan Plan Acute on Chronic Hypoxic respiratory failure secondary to COPD exacerbation -CXR- Chronic lung changes including small right pleural effusion and underlying scarring. No significant change compared 06/14/2022 -Continue home medications- steroids, nebulizer treatments as needed -Oxygen therapy - Pulmonology consulted Acute on chronic diastolic congestive heart failure -BNP 21,664 - Continue home medications -ECHO on 01/28/22 -LEFT VENTRICULAR EJECTION FRACTION APPEARS LOW NORMAL 50%. 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
[2022-06-18] MEDS: IPRATROPIUM BROM 0.5MG/2.5ML NEB SCH ×2 (14:30→20:00)
[2022-06-18 15:37] VITALS: BMI 23.0
[2022-06-18] MEDS: AZITHROMYCIN 250 MG TAB PO SCH (16:30)
[2022-06-18] MEDS: BUSPIRONE HCL 5 MG TABLET PO SCH ×2 (16:30→20:32)
[2022-06-18] MEDS: THEOPHYLLINE SR 100 MG TAB PO SCH (16:31)
[2022-06-18] MEDS: FUROSEMIDE 20 MG/ 2ML VIAL IV SCH (16:38)
--- NOTE | 2022-06-18 19:32 | CON ---
Date of Consultation: 06/18/2022 Reason For Consultation: Shortness of breath, elevated troponin. History Of Present Illness: This is a 71-year-old male with history of COPD, coronary artery disease , congestive heart failure, and atrial fibrillation. He was discharged recently from the hospital; anya heard, at home, he had no heat and this morning woke up and the temperature in his bedroom was below 20 degrees Fahrenheit. The patient felt short of breath, started wheezing and presented to the [facility] room where he was found to be in COPD exacerbation. Past Medical History: As outlined above in the HPI. Medications: Refer to reconciliation sheet for detailed list. Allergies: NO KNOWN DRUG ALLERGIES. Family History: No premature coronary artery disease or cancer. Social History: Does not smoke or drink. Does not use any drugs. Review of Systems: All systems reviewed and they were negative except for mentioned in HPI. Physical Examination: Vital Signs: Temperature is 97.8, pulse 77, breathing at 18, blood pressure 164/78, and saturating 9 7% with oxygen. General: Pleasant elderly male, in no apparent distress. Head And Neck: Pupils are equal and reactive to light. Intact eye movements. No JVD. No cervical lymphadenopathy. Neck is supple. Thyroid is not enlarged. Lungs: Diffuse wheezing bilaterally with rhonchi. No accessory muscle use or muscle retraction. Heart: Irregular. No extra sounds. Abdomen: Soft, nontender. Bowel sounds positive. No organomegaly. No masses or hernia. No rigidi ty or rebound. Extremities: No edema, clubbing, or cyanosis. Intact pulses. Skin: No rashes. Neurologic: Alert, awake. No acute focal deficits appreciated. Investigations: BUN 75, creatinine 2.33, and troponin is 199. Chest x-ray: Right pleural effusion that is small, otherwise no acute abnormalities. Assessment And Recommendation: 1.Shortness of breath. This is likely due to chronic obstructive pulmonary disease exacerbation. I do not see fluid overload condition. I will continue his home oral diuretics. No need for IV Lasix and the patient will need management of his chronic obstructive pulmonary disease exacerbation. 2.Atrial fibrillation, chronic rate controlled. Continue apixaban. 3.Dyslipidemia. Continue statin. 4.Elevated troponin. The patient is noted to have diffuse coronary artery disease that is not omar ble to intervention. He does not have any chest pain. This is likely demand. SR/MODL Voice ID: [id number] Report ID: [id number]
[2022-06-18] MEDS: ATORVASTATIN 40 MG TAB PO SCH (20:32)
[2022-06-18] MEDS: predniSONE 20 MG TAB PO SCH (20:32)
[2022-06-18] MEDS: APIXABAN 2.5 MG TABLET PO SCH (20:32)
[2022-06-19] MEDS: IPRATROPIUM BROM 0.5MG/2.5ML NEB SCH ×4 (01:45→20:40)
[2022-06-19 03:50] LABS: Absolute Lymphocytes (CBC) 0.5 K/uL (0.7-4.9); Hematocrit 33.9 % (39.6-49.0); Lymphocytes % 5.6 % (15.3-44.8); MCV 86.5 fL (80-100); MPV 9.5 fL (7.6-11.3); RBC Red Blood Cell Count 3.92 M/uL (4.33-5.43)
[2022-06-19 06:08] LABS: Magnesium 2.8 mg/dL (1.6-2.4); Phosphorus 3.5 mg/dL (2.5-4.9)
[2022-06-19 07:15] LABS: Specific Gravity 1.016 (1.005-1.030); Urine Bacteria <20 /HPF (<20); Urine Bilirubin NEGATIVE (Negative); Urine Blood 2+ (Negative); Urine Clarity Clear (Clear); Urine Color Light-Yellow (Yellow); Urine Glucose TRACE (Negative); Urine Mucus Slight /HPF (None Seen); Urine Protein 2+ (Negative); Urine Urobilinogen Normal (Normal); Urine pH 5.5 (5.0-7.0)
[2022-06-19] MEDS: FUROSEMIDE 20 MG/ 2ML VIAL IV SCH (08:17)
[2022-06-19] MEDS: THEOPHYLLINE SR 100 MG TAB PO SCH ×2 (08:17→20:38)
[2022-06-19] MEDS: BUSPIRONE HCL 5 MG TABLET PO SCH ×2 (08:18→20:38)
[2022-06-19] MEDS: predniSONE 20 MG TAB PO SCH ×2 (08:18→20:39)
[2022-06-19] MEDS: APIXABAN 2.5 MG TABLET PO SCH ×2 (08:18→20:39)
[2022-06-19] MEDS: ASPIRIN EC 81 MG TAB PO SCH (08:18)
[2022-06-19] MEDS: AZITHROMYCIN 250 MG TAB PO SCH (08:18)
--- NOTE | 2022-06-19 11:34 | P.PN ---
Subjective Date of Service: 06/19/22 Chief Complaint: Shortness of breath Subjective: Improving (Improving doing better still wheezing) Review of Systems General: Weakness Respiratory: Shortness of Breath Physical Examination - Vital Signs Temperature: 98.0 F Blood Pressure: 146/72 Pulse: 73 Respirations: 18 Pulse Ox (%): 97 - Physical Exam General: Alert, In no apparent distress, Oriented x3 Respiratory: Expiratory wheezes Cardiovascular: No edema, Regular rate/rhythm, Normal S1 S2 - Studies Laboratory Data (last 24 hrs) 06/18/22 08:48: WBC 16.10 H, Hgb 12.6 L, Hct 39.1 L, Plt Count 287 Assessment And Plan - Current Problems (Diagnosis) (1) COPD exacerbation Current Visit: Yes Status: Acute Plan: Patient is doing better continue with theophylline doing most of his home medications continue with bronchodilators opponent is declining oxygenation vital signs are all stable increase his theophylline to 200 mg twice a day and also leave him on low-dose Zithromax to 250 mg daily Discharge Plan: Home Plan to discharge in: 24 Hours
[2022-06-19] MEDS: ATORVASTATIN 40 MG TAB PO SCH (20:38)
[2022-06-19] MEDS: ROSUVASTATIN 10 MG TAB PO SCH (20:38)
[2022-06-19] MEDS ORDERED: APIXABAN 5 MG TABLET PO SCH (21:00)
[2022-06-20] MEDS: IPRATROPIUM BROM 0.5MG/2.5ML NEB SCH ×4 (02:50→20:55)
[2022-06-20] MEDS: ASPIRIN EC 81 MG TAB PO SCH ×2 (08:17→08:20)
[2022-06-20] MEDS: predniSONE 20 MG TAB PO SCH (08:17)
[2022-06-20] MEDS: BUSPIRONE HCL 5 MG TABLET PO SCH ×2 (08:18→20:13)
[2022-06-20] MEDS: CLOPIDOGREL 75 MG TABLET PO SCH (08:18)
[2022-06-20] MEDS: APIXABAN 2.5 MG TABLET PO SCH ×2 (08:18→20:10)
[2022-06-20] MEDS: AZITHROMYCIN 250 MG TAB PO SCH (08:18)
[2022-06-20] MEDS: FUROSEMIDE 40 MG TABLET PO SCH (08:18)
[2022-06-20] MEDS: THEOPHYLLINE SR 100 MG TAB PO SCH ×2 (08:19→20:09)
--- NOTE | 2022-06-20 10:18 | P.PN ---
Subjective Date of Service: 06/20/22 Chief Complaint: COPD exacerbation Subjective: Improving (Patient is improving doing well is not wheezing is much ambulating to the bathroom) Review of Systems 10-point ROS is otherwise unremarkable General: Weakness Respiratory: Shortness of Breath Physical Examination - Vital Signs Temperature: 97.2 F Blood Pressure: 160/84 Pulse: 73 Respirations: 18 Pulse Ox (%): 96 - Physical Exam General: Alert, Oriented x3 Respiratory: Expiratory wheezes Cardiovascular: No edema, Regular rate/rhythm, Normal S1 S2 Assessment And Plan - Current Problems (Diagnosis) (1) COPD exacerbation Current Visit: Yes Status: Acute Plan: Patient admitted with COPD exacerbation has improved continue with p.o. low-dose Zithromax and theophylline for now low-dose prednisone 10 mg twice a day continue with Lasix seen by cardiology able discharge tomorrow
[2022-06-20] MEDS: predniSONE 10 MG TAB PO SCH (16:28)
--- NOTE | 2022-06-20 17:04 | EKG ---
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
[2022-06-20] MEDS: ATORVASTATIN 40 MG TAB PO SCH (20:10)
[2022-06-20] MEDS: ROSUVASTATIN 10 MG TAB PO SCH (20:10)
[2022-06-21] MEDS: IPRATROPIUM BROM 0.5MG/2.5ML NEB SCH ×4 (02:00→20:45)
[2022-06-21] MEDS: predniSONE 10 MG TAB PO SCH ×2 (08:52→16:00)
[2022-06-21] MEDS: FUROSEMIDE 40 MG TABLET PO SCH (08:52)
[2022-06-21] MEDS: BUSPIRONE HCL 5 MG TABLET PO SCH ×2 (08:53→20:46)
[2022-06-21] MEDS: CLOPIDOGREL 75 MG TABLET PO SCH (08:53)
[2022-06-21] MEDS: AZITHROMYCIN 250 MG TAB PO SCH (08:53)
[2022-06-21] MEDS: ASPIRIN EC 81 MG TAB PO SCH (08:53)
[2022-06-21] MEDS: APIXABAN 2.5 MG TABLET PO SCH ×2 (08:54→20:46)
[2022-06-21] MEDS: THEOPHYLLINE SR 100 MG TAB PO SCH ×2 (08:54→20:46)
--- NOTE | 2022-06-21 11:34 | P.PN ---
Subjective Date of Service: 06/21/22 Chief Complaint: COPD exacerbation Patient still complains of wheezing apparently also complains of desaturation on exertion is rarely below 90% very apprehensive to go to a halfway Review of Systems Respiratory: Cough, Shortness of Breath Physical Examination - Vital Signs Temperature: 97.6 F Blood Pressure: 171/95 Pulse: 72 Respirations: 18 Pulse Ox (%): 95 - Physical Exam General: Alert, In no apparent distress, Mild distress Respiratory: Expiratory wheezes Cardiovascular: No edema, Regular rate/rhythm, Normal S1 S2 Assessment And Plan - Current Problems (Diagnosis) (1) COPD exacerbation Current Visit: Yes Status: Acute Plan: Patient continues to complain of wheezing notes of breath on mild exertion he still does not qualify for home O2 continue with theophylline low-dose Zithromax have also added Brovana continue with steroids pressure worker has been consulted for halfway placement pain to 2 before blood pressure is elevated renal function stable prognosis is poor due to recurrent hospital admission we will send a prescription for oxygen patient is self-pay to [facility] patient Discharge Plan: Home Plan to discharge in: 48 Hours
[2022-06-21] MEDS: ARFORMOTEROL TARTRATE 15 MCG/2 ML VIAL.NEB NEB SCH ×2 (14:25→20:45)
[2022-06-21] MEDS: AMLODIPINE 5 MG TAB PO SCH (14:48)
[2022-06-21] MEDS: ROSUVASTATIN 10 MG TAB PO SCH (20:46)
[2022-06-21] MEDS: ATORVASTATIN 40 MG TAB PO SCH (20:46)
--- NOTE | 2022-06-22 00:13 | P.PN ---
Subjective Date of Service: 06/22/22 Chief Complaint: COPD exacerbation Subjective: Improving (Pt reports significant improvement in breathing, feeling close to baseline.) Review of Systems 10-point ROS is otherwise unremarkable Respiratory: Cough, Shortness of Breath Physical Examination - Vital Signs Temperature: 97.8 F Blood Pressure: 183/96 Pulse: 78 Respirations: 16 Pulse Ox (%): 95 - Physical Exam General: Alert, In no apparent distress, Oriented x3 HEENT: Atraumatic, PERRLA, EOMI Neck: Supple, JVD not distended Respiratory: Clear to auscultation bilaterally, Normal air movement Cardiovascular: Regular rate/rhythm, Normal S1 S2 Gastrointestinal: Normal bowel sounds, No tenderness Musculoskeletal: No tenderness Integumentary: No rashes Neurological: Normal speech, Normal tone, Normal affect - Studies Medications List Reviewed: Yes Assessment And Plan - Plan Assessment: Acute on chronic hypoxic respiratory failure secondary to COPD with exacerbation Chronic diastolic congestive heart failure NSTEMI/demand ischemia Atrial fibrillation on chronic anticoagulation CKD 3 Plan: Acute on chronic hypoxic respiratory failure secondary to COPD with exacerbation: Pulmonology assisting in management, still with dyspnea on exertion. Plan is to set up with home O2. Patient/family considering placement versus home discharge. Continue theophylline, Brovana, as needed nebs, twice daily p.o. prednisone. Chronic diastolic congestive heart failure: Evaluated by cardiology, continue p.o. Lasix. NSTEMI/demand ischemia: No further cardiac work-up recommended by cardiology. Continue home medications including Lasix p.o. 80 mg daily. Atrial fibrillation on chronic anticoagulation: Continue medications including Eliquis 2.5 mg p.o. twice daily, monitor on telemetry. CKD 3: Renal dose medications avoid nephrotoxins. DVT PPX: Eliquis Code status: Full Discharge Plan: Home Plan to discharge in: 48 Hours - Code Status/Comfort Care Code Status Assessed: Yes (Full code) Critical Care: No Time Spent Managing PTS Care (In Minutes): 25
[2022-06-22] MEDS: IPRATROPIUM BROM 0.5MG/2.5ML NEB SCH ×4 (01:45→18:26)
[2022-06-22] MEDS: ARFORMOTEROL TARTRATE 15 MCG/2 ML VIAL.NEB NEB SCH ×2 (08:42→18:26)
[2022-06-22] MEDS: CLOPIDOGREL 75 MG TABLET PO SCH (09:09)
[2022-06-22] MEDS: FUROSEMIDE 40 MG TABLET PO SCH (09:09)
[2022-06-22] MEDS: AZITHROMYCIN 250 MG TAB PO SCH (09:09)
[2022-06-22] MEDS: predniSONE 10 MG TAB PO SCH ×2 (09:10→17:28)
[2022-06-22] MEDS: BUSPIRONE HCL 5 MG TABLET PO SCH ×2 (09:10→21:24)
[2022-06-22] MEDS: AMLODIPINE 5 MG TAB PO SCH (09:10)
[2022-06-22] MEDS: THEOPHYLLINE SR 100 MG TAB PO SCH ×2 (09:10→21:23)
[2022-06-22] MEDS: ASPIRIN EC 81 MG TAB PO SCH (09:10)
[2022-06-22] MEDS: APIXABAN 2.5 MG TABLET PO SCH ×2 (09:13→21:23)
[2022-06-22 09:24] LABS: Potassium 4.1 mmol/L (3.5-5.1)
[2022-06-22] MEDS: ATORVASTATIN 40 MG TAB PO SCH (21:24)
[2022-06-22] MEDS: ROSUVASTATIN 10 MG TAB PO SCH (21:24)
[2022-06-23] MEDS: IPRATROPIUM BROM 0.5MG/2.5ML NEB SCH ×4 (00:45→20:30)
[2022-06-23 04:35] LABS: Potassium 4.2 mmol/L (3.5-5.1)
[2022-06-23] MEDS: ARFORMOTEROL TARTRATE 15 MCG/2 ML VIAL.NEB NEB SCH ×2 (08:20→20:30)
[2022-06-23] MEDS: THEOPHYLLINE SR 100 MG TAB PO SCH ×2 (08:20→20:21)
[2022-06-23] MEDS: ASPIRIN EC 81 MG TAB PO SCH (08:21)
[2022-06-23] MEDS: CLOPIDOGREL 75 MG TABLET PO SCH (08:21)
[2022-06-23] MEDS: APIXABAN 2.5 MG TABLET PO SCH ×2 (08:21→20:25)
[2022-06-23] MEDS: BUSPIRONE HCL 5 MG TABLET PO SCH ×2 (08:21→20:21)
[2022-06-23] MEDS: predniSONE 10 MG TAB PO SCH ×2 (08:21→18:19)
[2022-06-23] MEDS: AZITHROMYCIN 250 MG TAB PO SCH (08:21)
[2022-06-23] MEDS: FUROSEMIDE 40 MG TABLET PO SCH (08:21)
[2022-06-23] MEDS: AMLODIPINE 5 MG TAB PO SCH (08:21)
--- NOTE | 2022-06-23 16:39 | P.DS ---
Admission Date: 06/21/22 Discharge Date: 06/24/22 Disposition: [place] HOME/HOME HEALTH CARE Discharge Condition: FAIR Reason for Admission: COPD exacerbation - Problems (1) Acute on chronic respiratory failure with hypoxia Status: Acute (2) COPD exacerbation Status: Acute (3) Chronic diastolic heart failure Status: Acute (4) CKD (chronic kidney disease) stage 3, GFR 30-59 ml/min Status: Chronic Qualifiers: (5) HTN (hypertension) Status: Chronic Qualifiers: Hypertension type: primary hypertension Qualified Code(s): I10 - Essential (primary) hypertension Brief History of Present Illness: 71 year old male with PMH of COPD on chronic steroids, chronic diastolic congestive heart failure, severe CAD with stents, atrial fibrillation on Arlet beth, CKD3 presented to the emergency room department for complaints of shortness of breath, cough and wheezing. Patient was recently discharged from the hospital on 06/17/22 for similar complaints. He states that he woke up around 6 am with dyspnea, nonproductive cough and mild nausea. He took his nebulizer treatment and reports no improvement. He then called EMS to be brought to the hospital since his treatment was ineffective. He reports associated symptoms of cough and nausea. He denied any chest pain, headaches or dizziness. Symptoms aggravated with exertion with no relief from nebulizer treatment. He was evaluated at the bedside in the ER, patient noted to have labored breathing and audibly wheezing. Patient admitted for further evaluation and management. Hospital Course: Patient admitted to the medical floor and treated for COPD exacerbation with scheduled bronchodilators including arformoterol, steroids. He was seen by pulmonary Dr. Escobar who assisted with management. Patient respiratory condition improved with treatment. Dr. Escobar also placed him on theophylline. He has a history of heart failure which was managed with oral Lasix. Patient troponin was mildly elevated but trended flat. He was seen in consultation by cardiology and elevated troponin deemed secondary to demand ischemia. No further work-up recommended by cardiology. He is on Eliquis for atrial fibrillation which was continued. His kidney function was stable with diuresis. Patient's to have desaturated to 88% on room air during a 6-minute walk test. He qualifies for home oxygen which has been arranged by social service. Overall patient has clinically improved and deemed stable for discharge. Patient and are making arrangement for him to be placed in long-term care. Vital Signs/Physical Exam: Temp Pulse Resp BP Pulse Ox 97.9 F 74 18 150/78 H 97 06/23/22 04:00 06/23/22 04:00 06/23/22 04:00 06/23/22 04:00 06/23/22 04:00 General: Alert, In no apparent distress, Oriented x3 HEENT: Mucous membr. moist/pink Neck: JVD not distended Respiratory: Clear to auscultation bilaterally, Normal air movement Cardiovascular: No edema, Normal S1 S2, Irregular heart rate/rhythm Gastrointestinal: Normal bowel sounds, Soft and benign, Non-distended, No tenderness Musculoskeletal: No swelling Integumentary: No cyanosis Neurological: Normal strength at 5/5 x4 extr Laboratory Data at Discharge: WBC 8.50 K/uL (4.3-10.9) 06/19/22 03:06 Hgb 11.4 g/dL (13.6-17.9) L D 06/19/22 03:06 Hct 33.9 % (39.6-49.0) L 06/19/22 03:06 Plt Count 183 K/uL (152-406) D 06/19/22 03:06 Sodium 136 mmol/L (136-145) 06/23/22 03:53 Potassium 4.2 mmol/L (3.5-5.1) 06/23/22 03:53 BUN 65 mg/dL (7-18) H 06/23/22 03:53 Creatinine 2.05 mg/dL (0.70-1.30) H 06/23/22 03:53 Glucose 156 mg/dL (74-106) H 06/23/22 03:53 Phosphorus 3.5 mg/dL (2.5-4.9) 06/19/22 03:06 Magnesium 2.8 mg/dL (1.6-2.4) H 06/19/22 03:06 Triglycerides 56 mg/dL (<150) 06/19/22 03:06 Cholesterol 123 mg/dL (<200) 06/19/22 03:06 HDL Cholesterol 57 mg/dL (40-60) 06/19/22 03:06 Cholesterol/HDL Ratio 2.16 06/19/22 03:06 Home Medications: Albuterol Sulfate [Albuterol Sulfate Hfa] 1 puff IH DAILY 02/05/22 Aspirin [Aspirin EC] 81 mg PO DAILY 04/05/22 Clopidogrel Bisulfate [Plavix] 75 mg PO DAILY 04/05/22 Metoprolol Tartrate 25 mg PO BID 04/05/22 Apixaban [Eliquis] 5 mg PO BID #60 tab 04/09/22 Fluticasone/Salmeterol [Advair 250-50 Diskus] 1 each IH BID #1 kit 05/13/22 Furosemide [Lasix] 80 mg PO DAILY 06/14/22 Rosuvastatin Calcium [Crestor] 20 mg PO BEDTIME 06/14/22 Azithromycin [Zithromax] 250 mg PO DAILY 15 Days #15 tab 06/20/22 Buspirone HCl [Buspar*] 10 mg PO BID #60 tab 06/20/22 Theophylline Anhydrous [Devaughn-24] 200 mg PO BID 60 Days #60 tab 06/20/22 predniSONE [Deltasone*] 10 mg PO BID 15 Days #30 tab 06/20/22 Albuterol Neb [Proventil 0.083% Neb Soln] 2.5 mg IH Q6H PRN #120 amp 06/23/22 Amlodipine [Norvasc*] 10 mg PO DAILY #30 tab 06/23/22 Ipratropium Neb [Atrovent*] 0.5 mg NEB [id number] #120 amp 06/23/22 Nebulizer 1 each IN QID #1 kit 06/23/22 New Medications: Ipratropium Neb [Atrovent*] 0.5 mg NEB [id number] #120 amp Buspirone HCl [Buspar*] 10 mg PO BID #60 tab predniSONE [Deltasone*] 10 mg PO BID 15 Days #30 tab Nebulizer 1 each IN QID #1 kit Amlodipine [Norvasc*] 10 mg PO DAILY #30 tab Albuterol Neb [Proventil 0.083% Neb Soln] 2.5 mg IH Q6H PRN #120 amp PRN Reason: Shortness Of Breath Theophylline Anhydrous [Devaughn-24] 200 mg PO BID 60 Days #60 tab Azithromycin [Zithromax] 250 mg PO DAILY 15 Days #15 tab Physician Discharge Instructions: PROBLEM: COPD Exacerbation, Hypoxia GOAL: Clear understanding of disease process INSTRUCTIONS: Follow up with Primary Care Provider in 1-2 weeks. Follow up with Pulmonology (Raul) in 1-2 weeks. Prescriptions were sent to [facility]. Call 2nd floor nurses station at [phone] with any questions regarding your stay Return to ER if symptoms worsen. Diet: AHA Activity: Fall precautions Diet: AHA Activity: Fall precautions Followup: Evangelist Carter MD [ACTIVE - CAN ADMIT] - Unknown,U [Primary Care Provider] - Time spent managing pt's care (in minutes): 36
[2022-06-23] MEDS: ROSUVASTATIN 10 MG TAB PO SCH (20:21)
[2022-06-23] MEDS: ATORVASTATIN 40 MG TAB PO SCH (20:21)
[2022-06-24] MEDS: IPRATROPIUM BROM 0.5MG/2.5ML NEB SCH (01:30)
[2022-06-24] MEDS: THEOPHYLLINE SR 100 MG TAB PO SCH (08:20)
[2022-06-24] MEDS: predniSONE 10 MG TAB PO SCH (08:21)
[2022-06-24] MEDS: AMLODIPINE 5 MG TAB PO SCH (08:21)
[2022-06-24] MEDS: CLOPIDOGREL 75 MG TABLET PO SCH (08:21)
[2022-06-24] MEDS: ASPIRIN EC 81 MG TAB PO SCH (08:22)
[2022-06-24] MEDS: APIXABAN 2.5 MG TABLET PO SCH (08:22)
[2022-06-24] MEDS: FUROSEMIDE 40 MG TABLET PO SCH (08:22)
[2022-06-24] MEDS: BUSPIRONE HCL 5 MG TABLET PO SCH (08:23)
[2022-06-24] MEDS: AZITHROMYCIN 250 MG TAB PO SCH (08:23)
[2022-06-24 08:25] VITALS: BP 162/83
[2022-06-24 09:02] VITALS: TEMP 97.5
[2022-06-24 09:51] VITALS: O2SAT 98
--- NOTE | 2022-06-24 18:55 | P.PN ---
Subjective Date of Service: 06/23/22 Chief Complaint: COPD exacerbation Patient has no new complaint. He reports shortness of breath only with exertion. Physical Examination - Vital Signs Temperature: 97.5 F Blood Pressure: 162/83 Pulse: 69 Respirations: 22 Pulse Ox (%): 98 - Studies Medications List Reviewed: Yes Assessment And Plan - Current Problems (Diagnosis) (1) Acute on chronic respiratory failure with hypoxia Status: Acute (2) COPD exacerbation Status: Acute (3) Chronic diastolic heart failure Status: Acute (4) CKD (chronic kidney disease) stage 3, GFR 30-59 ml/min Status: Chronic Qualifiers: (5) HTN (hypertension) Status: Chronic Qualifiers: Hypertension type: primary hypertension Qualified Code(s): I10 - Essential (primary) hypertension - Plan Patient seen by pulmonary. Continue bronchodilators. Oral prednisone. Patient ambulated for 4 minutes and desaturated to 88% on room air. He will qualify for home oxygen. He has clinically improved. Continue oral Lasix. Continue Eliquis for A. fib We will arrange for home oxygen for discharge.
== END 2022-06-24 09:37 | disposition home health service (06) | DRG 189 ==
LOC: ER 08:17 → ERHOLD 12:14 → 2ND 13:25 → OBSVTOIN 06-21 09:28
PROVIDERS: ADMIT Hospitalist; ATTEND Internal Medicine
DX: J96.21 Acute and chronic respiratory failure with hypoxia (principal); I50.33 Acute on chronic diastolic (congestive) heart failure; J44.1 Chronic obstructive pulmonary disease with (acute) exacerbation; I24.8 Other forms of acute ischemic heart disease; I48.20 Chronic atrial fibrillation, unspecified; I13.0 Hypertensive heart and chronic kidney disease with heart failure and stage 1 through stage 4 chronic kidney disease, or unspecified chronic kidney disease; N18.30 Chronic kidney disease, stage 3 unspecified; I25.10 Atherosclerotic heart disease of native coronary artery without angina pectoris; E78.5 Hyperlipidemia, unspecified; Z79.01 Long term (current) use of anticoagulants; Z20.822 Contact with and (suspected) exposure to COVID-19
CPT/HCPCS: 36415; 71045; 80048; 80061; 81001; 83735; 83880; 84100; 84484; 85025; 87811; 93005; 94640; 96365; 96366; 96375; 97116; 97530; 99285; G0378; J1940; J2930; J3475; J7512; J7605; J7613; J7644; Q0144

== ENCOUNTER 2022-11-17 13:20 | Inpatient (IN) | payer MEDICARE ==
--- OUTSIDE RECORDS SUMMARY | 2022-11-17 13:32 | XMS REPORT | Continuity of Care Document ---
:1950 Author Organization [facility] t Address [address] [place] [address] Care Team Providers Name Role Phone Pcp, Patient Does Not Have A Primary Care Physician +[id number] Doctor Unassigned, [place] Attending Clinician Unavailable Arlene Yi Attending Clinician Nyasia Wang RN Attending Clinician Unavailable FELICIA GOSS Attending Clinician Unavailable Felicia Spencer Attending Clinician Osbaldo Aguiar MD Attending Clinician Corwin Walden DO Attending Clinician Jagdeep Fagan MD Attending Clinician Carmelo Hodgson MD Attending Clinician CARMELO HODGSON Attending Clinician Unavailable Logan Liu MD Attending Clinician TONY MILLER Attending Clinician Unavailable Haven Ortiz RN Attending Clinician Unavailable RICKIE CANNON Attending Clinician Unavailable Jen Alonzo MD Attending Clinician Juventino Smith MD Attending Clinician Rickie Cannon MD Attending Clinician HARDEEP LAU Attending Clinician Unavailable Hardeep Lau [...] y of d type d type 00:00: [place] [address] Medical Branch 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 Active 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: [place] congestive congestive 00 Ca dical heart heart Branch failure failure Hyperkalem Hyperkalem Disease Active U nivers ia ia 8-21 ity of 00:00: [place] 00 [facility] 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 00:00: [facility] 00 Medical Branch Tachycardi Tachycardi Disease Active U nivers a a 8-21 ity of 00:00: [place] [address] Medical Branch Demand Demand Disease Recurre [facility] ischemia ischemia nce 5-16 [facility] Medical 00 Center MEHREEN (acute MEHREEN (acute Disease Recurre [facility] kidney kidney nce 5-16 [facility] injury) injury) 00:00: Medical 00 Center Hypertensi Hypertensi Disease Active [facility] ve ve 5-16 [facility] emergency emergency 00:00: [facility] 00 Center Pulmonary Pulmonary Disease Active [facility] edema edema 5-16 [facility] 00:[facility]: Medical 00 Center 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 Recurre [facility] 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[facility] 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 Acute Acute Disease Recurre [facility] respirator respirator nce 5-15 [facility] y failure y failure 00:00: Medi south with with 00 Center hypercapni hypercapni a a Athscl Athscl Problem Active [facility] heart 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 w/o ang [...] ALLERGIE Class ity of S [facility] NO KNOWN Allergy Active [facility] ALLERGIE S Social History Social Habit Start Date Stop Date Quantity Comments Source History [facility] Food 2022-02-22 2022-02-22 1 Univers ity of Worry 00:00:00 00:00:00 [facility] Branch History [facility] Food 2022-02-22 2022-02-22 1 Univers ity of Scarcity 00:00:00 00:00:00 [facility] Branch History [facility] 2022-02-22 2022-02-22 2 University o f Transport Med 00:00:00 00:00:00 [facility] Branch History [facility] 2022-02-22 2022-02-22 2 University o f Transport Non-Med 00:00:00 00:00:00 [facility] Exposure to 2022-02-04 2022-02-14 Not sure University of SARS-CoV-2 (event) 00:00:00 14:51:00 [facility] Cigarettes smoked 2022-02-14 2022-02-14 Univers ity of current (pack per 00:00:00 00:00:00 [facility] ) - Reported Branch Cigarette 2022-02-14 2022-02-14 University of pack-years 00:00:00 00:00:00 [facility] Tobacco use and 2021-11-10 2021-11-[address] [facility] kes exposure 00:00:00 00:00:00 Medical Center Alcohol intake 2021-11-10 2021-11-10 Ex-drinker [facility] Sally es 00:00:00 00:00:00 (finding) Medical Center History of tobacco 2021-10-25 Passive smoker Un iversity of use 00:00:00 [facility] Sex Ass[birth year] At [birth year] ALEXEI Vilchis 00:00:00 00:00:00 Medical Center Smoking Status Start Date Stop Date Source Smokes tobacco daily [facility] (finding) Ex-smoker 2022-02-14 00:00:00 2022-02-14 00:00:00 Universi ty [facility] Medications Ordered Filled Start Stop Current Ordering Indication Dosage Frequency Signature Comments Components Source Medication Medication Date Date Medication? Clinician (SIG) Name Name azithromyci Yes [id number] 500mg Take 1 Univers n 500 mg 8-27 tablet by ity of tablet 00:00: mouth in [place] the Medical morning. Branch furosemide Yes [id number] 40mg Take 1 Univers 40 mg 8-27 tablet by ity of tablet 00:00: mouth in [place] the Medical morning. Branch azithromyci 0 Yes [id number] 500mg Take 1 Univers n 500 mg 8-27 tablet by ity of tablet 00:00: mouth in [place] the Medical morning. Branch furosemide 2021-0 Yes [id number] 40mg Take 1 Univers 40 mg 8-27 tablet by ity of tablet 00:00: mouth in [place] the Medical morning. Branch azithromyci 2021-0 Yes [id number] 500mg Take 1 Univers n 500 mg 8-27 tablet by ity of tablet 00:00: mouth in [place] the Medical morning. Branch furosemide 2021-0 Yes [id number] 40mg Take 1 Univers 40 mg 8-27 tablet by ity of tablet 00:00: mouth in [place] the Medical morning. Branch azithromyci 2021-0 Yes [id number] 500mg Take 1 Univers n 500 mg 8-27 tablet by ity of tablet 00:00: mouth in [place] the Medical morning. Branch furosemide 2021-0 Yes [id number] 40mg Take 1 Univers 40 mg 8-27 tablet by ity of tablet 00:00: mouth in [place] [address] the Medical morning. Branch azithromyci 2021-0 Yes [id number] 500mg Take 1 Univers n 500 mg 8-27 tablet by ity of tablet 00:00: mouth in [place] 00 the Medical morning. Branch furosemide 2021-0 Yes [id number] 40mg Take 1 Univers 40 mg 8-27 tablet by ity of tablet 00:00: mouth in [place] 00 the Medical morning. Branch azithromyci 2021-0 Yes [id number] 500mg Take 1 Univers n 500 mg 8-27 tablet by ity of tablet 00:00: mouth in [place] 00 the Medical morning. Branch furosemide 2021-0 Yes [id number] 40mg Take 1 Univers 40 mg 8-27 tablet by ity of tablet 00:00: mouth in [place] 00 the Medical morning. Branch azithromyci 2021-0 Yes [id number] 500mg Take 1 Univers n 500 mg 8-27 tablet by ity of tablet 00:00: mouth in [place] 00 the Medical morning. Branch furosemide 2021-0 Yes [id number] 40mg Take 1 Univers 40 mg 8-27 tablet by ity of tablet 00:00: mouth in [place] 00 the Medical morning. Branch azithromyci 2021-0 Yes [id number] 500mg Take 1 Univers n 500 mg 8-27 tablet by ity of tablet 00:00: mouth in [place] 00 the Medical morning. Branch furosemide 2021-0 Yes [id number] 40mg Take 1 Univers 40 mg 8-27 tablet by ity of tablet 00:00: mouth in [place] 00 the Medical morning. Branch aspirin 81 0 2021- No [id number] 81mg Take 1 Univers mg chewable -03-23 tablet by it y of tablet 00:00: 04:59 mouth in [place] 00 :00 the Medical morning Branch for 30 days. clopidogreL 2021-2021- No [id number] 75mg Take 1 Univers 75 mg -03-23 tablet by ity of tablet 00:00: 04:59 mouth in [place] 00 :00 the Medical morning Branch for 30 days. Fluticasone 2021-2021- No [id number] 1{puff} Inhale 1 Univers -Salmeterol -03-23 Puff every i ty of 100-50 00:00: 04:59 12 [place] mcg/dose 00 :00 (twelve) Medical inhalation hours for Bran ch disk 30 days. rosuvastati 2021-0 2021- No [id number] 20mg Take 1 Univers n 20 mg 8-03-23 tablet by ity of tablet 00:00: 04:59 mouth at [place] 00 :00 bedtime Medical for 30 Branch days. aspirin 81 2021- No [id number] 81mg Take 1 Univers mg chewable -03-23 tablet by it y of tablet 00:00: 04:59 mouth in [place] 00 :00 the Medical morning Branch for 30 days. clopidogreL 2021- No [id number] 75mg Take 1 Univers 75 mg -03-23 tablet by ity of tablet 00:00: 04:59 mouth in [place] 00 :00 the Medical morning Branch for 30 days. Fluticasone 2021- No [id number] 1{puff} Inhale 1 Univers -Salmeterol 02-20 Puff every i ty of 100-50 00:00: 04:59 12 [place] mcg/dose 00 :00 (twelve) Medical inhalation hours for Bran ch disk 30 days. rosuvastati 2021- No [id number] 20mg Take 1 Univers n 20 mg 02-20 tablet by ity of tablet 00:00: 04:59 mouth at [place] 00 :00 bedtime Medical for 30 Branch days. aspirin 81 2021- No [id number] 81mg Take 1 Univers mg chewable 02-20 tablet by it y of tablet 00:00: 04:59 mouth in [place] 00 :00 the [facility] morning Branch for 30 days. clopidogreL 2021- No [id number] 75mg Take 1 Univers 75 mg -03-23 tablet by ity of tablet 00:00: 04:59 mouth in [place] 00 :00 the [facility] morning Branch for 30 days. Fluticasone 2021- No [id number] 1{puff} Inhale 1 Univers -Salmeterol -23 03- Puff every i ty of 100-50 00:00: 04:59 12 [place] mcg/dose 00 :00 (twelve) Medical inhalation hours for Bran ch disk 30 days. rosuvastati 2021- No [id number] 20mg Take 1 Univers n 20 mg -03-23 tablet by ity of tablet 00:00: 04:59 mouth at [place] 00 :00 bedtime Medical for 30 Branch days. aspirin 81 2021- No [id number] 81mg Take 1 Univers mg chewable -03-23 tablet by it y of tablet 00:00: 04:59 mouth in [place] 00 :00 the [facility] [place] for 30 days. clopidogreL 2021- No [id number] 75mg Take 1 Univers 75 mg 8-03-23 tablet by ity of tablet 00:00: 04:59 mouth in [place] 00 :00 the [facility] morning [place] for 30 days. Fluticasone 2021- No [id number] 1{puff} Inhale 1 Univers -Salmeterol 02-20 Puff every i ty of 100-50 00:00: 04:59 12 [place] mcg/dose 00 :00 (twelve) Medical inhalation hours for Bran ch disk 30 days. rosuvastati 2021- No [id number] 20mg Take 1 Univers n 20 mg 02-20 tablet by ity of tablet 00:00: 04:59 mouth at [place] 00 :00 bedtime Medical for 30 Branch days. aspirin 81 2021- No [id number] 81mg Take 1 Univers mg chewable 02-20 tablet by it y of tablet 00:00: 04:59 mouth in [place] 00 :00 the [facility] for 30 days. clopidogreL 2021- No [id number] 75mg Take 1 Univers 75 mg -03-23 tablet by ity of tablet 00:00: 04:59 mouth in [place] 00 :00 the [facility] [place] for 30 days. Fluticasone 2021- No [id number] 1{puff} Inhale 1 Univers -Salmeterol 02-20 Puff every i ty of 100-50 00:00: 04:59 12 [place] mcg/dose 00 :00 (twelve) Medical inhalation hours for Bran ch disk 30 days. rosuvastati 2021- No [id number] 20mg Take 1 Univers n 20 mg -03-23 tablet by ity of tablet 00:00: 04:59 mouth at [place] 00 :00 bedtime Medical for 30 Branch days. aspirin 81 2021- No [id number] 81mg Take 1 Univers mg chewable -03-23 tablet by it y of tablet 00:00: 04:59 mouth in [place] 00 :00 the Medical morning Branch for 30 days. clopidogreL 2021- No [id number] 75mg Take 1 Univers 75 mg 02-20 tablet by ity of tablet 00:00: 04:59 mouth in [place] 00 :00 the Medical morning Branch for 30 days. Fluticasone 2021- No [id number] 1{puff} Inhale 1 Univers -Salmeterol 02-20 Puff every i ty of 100-50 00:00: 04:59 12 [place] mcg/dose 00 :00 (twelve) Medical inhalation hours for Bran ch disk 30 days. rosuvastati No [id number] 20mg Take 1 Univers n 20 mg 02-20 tablet by ity of tablet 00:00: 04:59 mouth at [place] 00 :00 bedtime Medical for 30 Branch [...] at 0900, Until Discontinu ed, Routine clopidogreL 2021- No 75mg 75 mg, Uni vers (PLAVIX) 75 02-19 Oral, ity of mg tablet 14:00: 23:44 DAILY, [place] 75 mg 00 :08 First dose Medical on Tue Branch 02/19/22 at 0900, Until Discontinu ed, Routine lisinopriL 2021- No 10mg 10 mg, [facility] ers (PRINIVIL,Z 02-19 Oral, QHS, i ty of ESTRIL) 02:00: 23:44 First dose [place] as tablet 10 00 :08 on [place] Medical mg 02/18/22 at Branch 2100, Until Discontinu ed, Routine lisinopriL 2021- No 10mg 10 mg, [facility] ers (PRINIVIL,Z 02-19 Oral, QHS, i ty of ESTRIL) 02:00: 23:44 First dose [place] as tablet 10 00 :08 on [place] Medical mg 02/18/22 at Branch 2100, Until Discontinu ed, Routine methylPREDN 2021- No 40mg 40 mg, Uni vers ISolone sod 02-18 Intravenou i ty of succ 16:30: 23:44 s, Q12H, [place] (SOLU-MEDRO 00 :08 First dose Me dical L (PF)) on [place] Branch injection 02/18/22 at 40 mg 1130, Until Discontinu ed, 1 mL methylPREDN 2021- No 40mg 40 mg, Uni vers ISolone sod 02-18 Intravenou i ty of succ 16:30: 23:44 s, Q12H, [place] (SOLU-MEDRO 00 :08 First dose Me dical L (PF)) on [place] Branch injection 02/18/22 at 40 mg 1130, Until Discontinu ed, 1 mL Fluticasone 2021- No 1{puff} 1 Puff, Univers -Salmeterol 02-18 Inhalation i ty of (ADVAIR) 15:30: 23:44 , Q12H, [place] [address] 00 :08 First dose Medical mcg/dose on [place] Branch inhalation 02/18/22 at disk 1 Puff 1030, Until Discontinu ed, Routine Fluticasone 2021- No 1{puff} 1 Puff, Univers -Salmeterol 02-18 Inhalation i ty of (ADVAIR) 15:30: 23:44 , Q12H, [place] [address] 00 :08 First dose Medical mcg/dose on [place] Branch inhalation 02/18/22 at disk 1 Puff 1030, Until Discontinu ed, Routine heparin 2021- No 5000U 5,000 Univers (porcine) 02-18 Units, ity of injection 01:00: 23:44 Subcutaneo [place] 5,000 Units 00 :08 us, BID, [facility] First dose Branch on Tue02/17/22 at 1999, Until Discontinu ed, Routine heparin 2021- No 5000U 5,000 Univers (porcine) 02-18 Units, ity of injection 01:00: 23:44 Subcutaneo [place] 5,000 Units 00 :08 us, BID, [facility] First dose Branch on Tue02/17/22 at 2000, [...] Starting [place] injection 06 :15 on Tue02/17/22 at Branch 1004, Until Tue02/17/22 at 1048, Routine, CV Intraproce dure midazolam 2021- No ONCE INTRA U nivers (VERSED) 02-17 PROCEDURE, ity of injection 14:55: 15:48 Starting [place] as 37 :15 on Tue02/17/22 at Branch 0955, Until Tue02/17/22 at 1048, Routine, CV Intraproce dure midazolam 2021- No ONCE INTRA U nivers (VERSED) 02-17 PROCEDURE, ity of injection 14:55: 15:48 Starting [place] as 37 :15 on Tue02/17/22 at Branch 0955, Until Tue02/17/22 at 1048, Routine, CV Intraproce dure FENTanyl PF 2021- No ONCE INTRA Univers (SUBLIMAZE 02-17 PROCEDURE, it y of (PF)) 14:55: 15:48 Starting [place] injection 15 :15 on Tue02/17/22 at Branch 0955, Until Tue02/17/22 at 1048, Routine, CV Intraproce dure FENTanyl PF 2021- No ONCE INTRA Univers (SUBLIMAZE 02-17 PROCEDURE, it y of (PF)) 14:55: 15:48 Starting [place] injection 15 :15 on Tue02/17/22 at Branch 0955, Until Tue02/17/22 at 1048, Routine, CV Intraproce dure rosuvastati 2021- No 20mg 20 mg, Uni vers n (CRESTOR) 02-17 Oral, QHS, i ty of tablet 20 02:00: 23:44 First dose [place] mg 00 :08 (after Medical last Branch reorder) on Tue02/16/22 at 2100, Until Discontinu ed, Routine rosuvastati No 20mg 20 mg, Uni vers n (CRESTOR) 02-17 Oral, QHS, i ty of tablet 20 02:00: 23:44 First dose [place] mg 00 :08 (after Medical last Branch reorder) on [facility] 02/16/22 at 2100, Until Discontinu ed, Routine metoprolol No 25mg 25 mg, Univ ers succinate 02-16 Oral, BID, ity of XL (TOPROL 15:45: 23:44 First dose [place] XL) tablet 00 :08 on [facility] Medical 25 mg 02/16/22 at Branch 1045, Until Discontinu ed, Routine metoprolol 2021- No 25mg 25 mg, Univ ers succinate 02-16 Oral, BID, ity of XL (TOPROL 15:45: 23:44 First dose [place] XL) tablet 00 :08 on [facility] Medical 25 mg 02/16/22 at Branch 1045, Until Discontinu ed, Routine aspirin No 81mg 81 mg, Univers chewable 02-15 Oral, ity of tablet 81 14:00: 23:44 DAILY, [place] mg 00 :08 First dose Medical on Tue02/15/22 at 0900, Until Discontinu ed, Routine aspirin No 81mg 81 mg, Univers chewable 02-15 Oral, ity of tablet 81 14:00: 23:44 DAILY, [place] mg 00 :08 First dose Medical on Tue02/15/22 at 0900, Until Discontinu ed, Routine Sliding Subcutaneo Uni vers Scale 02-15 us, AC+HS, ity of Insulin-Reg 02:00: 23:44 First dose [place] ular + Fsbg 00 :08 on [facility] 02/14/22 at Branch 2100, Until Discontinu ed, Routine Sliding Subcutaneo Uni vers Scale 02-15 us, AC+HS, ity of Insulin-Reg 02:00: 23:44 First dose [place] ular + Fsbg 00 :08 on [facility] 02/14/22 at Branch 2100, Until Discontinu ed, Routine glucagon 2022-0 2022- No 1mg 1 mg, Univers (GLUCAGEN 02-14 [...] [place] Branch base)/3 mL 02/14/22 at nebulizer 1821, solution 3 Until Sat mL 02/20/22 at 1844, Routine, Wheezing ipratropium 2021- No 3mL 3 mL, Univ ers -albuteroL 02-14 Inhalation it y of (DUONEB) 23:22: 23:44 , Q4HPRN, [place] 0.5 mg-3 44 :08 Starting Medical mg(2.5 mg on [place] Branch base)/3 mL 02/14/22 at nebulizer 182, solution 3 Until Sat mL 02/20/22 at 1844, Routine, Wheezing lactobacill 2022- No 1{capsu QD Take [address] [facility] us 5-20 05-20 le} capsule by [facility] rhamnosus, 00:00: 23:59 mouth Medic al GG, 00 :00 daily. [facility] (CULTUREE ) 10 billion cell capsule lactobacill 2022- No 1{capsu QD Take [address] [facility] us 5-20 05-20 le} capsule by [facility] rhamnosus, 00:00: 23:59 mouth Medic al GG, 00 :00 daily. [facility] (CULTURELLE ) 10 billion cell capsule lactobacill 2022- No 1{capsu QD Take [address] [facility] us 5-20 05-20 le} capsule by [facility] rhamnosus, 00:00: 23:59 mouth Medic al GG, 00 :00 daily. [facility] (CULTUREE ) 10 billion cell capsule lactobacill 2022- No 1{capsu QD Take [address] [facility] us 5-20 05-20 le} capsule by [facility] rhamnosus, 00:00: 23:59 mouth Medic al GG, 00 :00 daily. [facility] (CULTUREE ) 10 billion cell capsule lactobacill 2022- No 1{capsu QD Take [address] [facility] us 5-20 05-20 le} capsule by [facility] rhamnosus, 00:00: 23:59 mouth Medic al GG, 00 :00 daily. [facility] (CULTUREE ) 10 billion cell capsule lactobacill 2022- No 1{capsu QD Take [address] [facility] us 5-20 05-20 le} capsule by [facility] rhamnosus, 00:00: 23:59 mouth Medic al GG, 00 :00 daily. [facility] (CULTURELLE ) 10 billion cell capsule lactobacill 2022- No 1{capsu QD Take [address] [facility] us 5-20 05-20 le} capsule by [facility] rhamnosus, 00:00: 23:59 mouth Medic al GG, 00 :00 daily. Center (CULTURELLE ) 10 billion cell capsule [...] 20:45: daily. Medic al MG tablet 02 [facility] carvediloL 0 Yes 6.25mg Take 6.[address] [facility] [facility] (COREG) 5-19 mg by [facility] 6.25 MG 20:45: mouth 2 Medical tablet 02 (two) Center times daily with breakfast and dinner. lisinopriL 2-0 Yes 40mg QD Take [address] (PRINIVIL,Z 5-19 by mouth Luke s ESTRIL) 40 20:45: daily. Medic al MG tablet 02 [facility] carvediloL 0 Yes 6.25mg Take 6.[address] [facility] (COREG) 5-19 mg by [facility] 6.25 MG 20:45: mouth 2 Medical tablet 02 (two) Center times daily with breakfast and dinner. lisinopriL 2-0 Yes 40mg QD Take [address] (PRINIVIL,Z 5-19 by mouth Luke s ESTRIL) 40 20:45: daily. Medic al MG tablet 02 [facility] carvediloL Yes 6.25mg Take 6.[address] (COREG) 5-19 mg by [facility] 6.25 MG 20:45: mouth 2 Medical tablet 02 (two) Center times daily with breakfast and dinner. lisinopriL 2-0 Yes 40mg QD Take [address] (PRINIVIL,Z 5-19 by mouth Luke s ESTRIL) 40 20:45: daily. Medic al MG tablet 02 [facility] carvediloL 0 Yes 6.25mg Take 6.[address] (COREG) 5-19 mg by [facility] 6.25 MG 20:45: mouth 2 Medical tablet 02 (two) Center times daily with breakfast and dinner. lisinopriL 2-0 Yes 40mg QD Take [address] (PRINIVIL,Z 5-19 by mouth Luke s ESTRIL) 40 20:45: daily. Medic al MG tablet 02 [facility] carvediloL 0 Yes 6.25mg Take 6.[address] (COREG) 5-19 mg by [facility] 6.25 MG 20:45: mouth 2 Medical tablet 02 (two) Center times daily with breakfast and dinner. lisinopriL 2022-0 Yes 40mg QD Take [address] (PRINIVIL,Z 5-19 by mouth Luke s ESTRIL) 40 20:45: daily. Medic al MG tablet 02 [facility] carvediloL Yes 6.25mg Take 6.[address] [...] Q.5D Take [address] [facility] (DELTASONE) 5- 05-19 by mouth 2 L ukes 10 MG 16:04: 00:00 (two) Medical tablet 36 :00 times Center daily. amLODIPine 2021- No 5mg QD Take [address] (NORVASC) 5 5- 05-19 by mouth Sally es MG tablet 16:04: 00:00 daily. Medic al 36 :00 Center predniSONE 2021- No 10mg Q.5D Take [address] [facility] (DELTASONE) 5- 05-19 by mouth 2 L ukes 10 MG 16:04: 00:00 (two) Medical tablet 36 :00 times Center daily. amLODIPine 2021- No 5mg QD Take [address] (NORVASC) 5 11-12 05-19 by mouth Sally es MG tablet [...] needed for up to 360 days. ipratropium 2022-0 2023- No 3mL Take [address] -albuteroL 11-12 05-14 by [facility] (IntellijouleO-Manyeta) 00:00: 23:59 nebulizati M edical 0.5 mg-3 00 :00 on every 6 Cente r mg(2.5 mg (six) base)/3 mL hours as nebulizer needed for solution Wheezing for up to 360 days. acetaminoph 2021-0 3- No 650mg Take [address] en - 05-14 tablets [facility] (TYLENOL) 00:00: 23:59 (650 mg Medi south 325 MG 00 :00 total) by Center tablet mouth every 6 (six) hours as needed for up to 360 days. ipratropium 2021-0 3- No 3mL Take [address] -albuteroL 11-12 05-14 by [facility] (IntellijouleO-Manyeta) 00:00: 23:59 nebulizati M edical 0.5 mg-3 00 :00 on every 6 Cente r mg(2.5 mg (six) base)/3 mL hours as nebulizer needed for solution Wheezing for up to 360 days. acetaminoph 2021-0 3- No 650mg Take [address] en 5- 05-14 tablets [facility] (TYLENOL) 00:00: 23:59 (650 mg Medi south 325 MG 00 :00 total) by Center tablet mouth every 6 (six) hours as needed for up to 360 days. ipratropium 2021-0 3- No 3mL Take [address] -albuteroL 11-12 05-14 by [facility] (IntellijouleO-Manyeta) 00:00: 23:59 nebulizati M edical 0.5 mg-3 00 :00 on every 6 Cente r mg(2.5 mg (six) base)/3 mL hours as nebulizer needed for solution Wheezing for up to 360 days. acetaminoph 2021-0 3- No 650mg Take [address] en 5-19 05-14 tablets [facility] (TYLENOL) 00:00: 23:59 (650 mg Medi south 325 MG 00 :00 total) by Center tablet mouth every 6 (six) hours as needed for up to 360 days. ipratropium 2022-0 2023- No 3mL Take [address] [address] -albuteroL 11-12 05-14 by [facility] (IntellijouleO-Manyeta) 00:00: 23:59 nebulizati M edical 0.5 mg-3 [...] [address] [address] -albuteroL 11-12-14 by Lu[facility] (IntellijouleO-Manyeta) 00:00: 23:59 nebulizati M edical 0.5 mg-3 [...] mLs [facility] -albuteroL 11-12 05-14 by Lu[facility] (IntellijouleO-Manyeta) 00:00: 23:59 nebulizati M edical 0.5 mg-3 00 :00 on every 6 Cente r mg(2.5 mg (six) base)/3 mL hours as nebulizer needed for solution Wheezing for up to 360 days. apixaban 2021-0 2021- No 5mg Q.5D Take [address] [facility] (ELIQUIS) 5 5-19 08-17 tablet (5 Y[facility]ira kes mg Tab 00:00: 23:59 mg total) Medic al tablet 00 :00 by mouth 2 Center (two) times daily for 90 days. apixaban 2021-0 2021- No 5mg Q.5D Take [address] [facility] (ELIQUIS) 5 5-19 08-17 tablet (5 Y[facility]ira kes mg Tab 00:00: 23:59 mg total) Medic al tablet 00 :00 by mouth 2 Center (two) times daily for 90 days. apixaban 2021-0 2- No 5mg Q.5D Take [address] [facility] (ELIQUIS) 5 5-19 08-17 tablet (5 Y[facility]ira kes mg Tab 00:00: 23:59 mg total) Medic al tablet 00 :00 by mouth 2 Center (two) times daily for 90 days. apixaban 2021-0 2- No 5mg Q.5D Take [address] [facility] (ELIQUIS) 5 5-19 08-17 tablet (5 [facility] kes mg Tab 00:00: 23:59 mg total) Medic al tablet 00 :00 by mouth 2 Center (two) times daily for 90 days. apixaban 2021-0 2- No 5mg Q.5D Take [address] [facility] (ELIQUIS) 5 5-19 08-17 tablet (5 Y[facility] kes mg Tab 00:00: 23:59 mg total) Medic al tablet 00 :00 by mouth 2 Center (two) times daily for 90 days. apixaban 2021-0 2021- No 5mg Q.5D Take [address] [facility] (ELIQUIS) 5 5-19 08-17 tablet (5 Y[facility]ira kes mg Tab 00:00: 23:59 mg total) Medic al tablet 00 :00 by mouth 2 Center (two) times daily for 90 days. apixaban 2021-0 2- No 5mg Q.5D Take [address] [facility] (ELIQUIS) 5 5-19 08-17 tablet (5 Y[facility]ira kes mg Tab 00:00: 23:59 mg total) Medic al tablet 00 :00 by mouth 2 Center (two) times daily for 90 days. bumetanide 2021-0 2- No 1mg Take [address] [facility] (BUMEX) 1 5- 06-18 tablet (1 Luke s MG tablet 00:00: 23:59 mg total) Me dical 00 :00 by mouth 2 Center (two) times daily for 30 days. bumetanide 2021-0 2- No 1mg Take [address] [facility] (BUMEX) 1 5-19 06-18 tablet (1 Luke s MG tablet 00:00: 23:59 mg total) Me dical 00 :00 by mouth 2 Center (two) times daily for 30 days. bumetanide 2021- No 1mg Take [address] [facility] (BUMEX) 1 5 06-18 tablet (1 Luke s MG tablet [...] 2021- No Take [address] [facility] (DELTASONE) 5-19 05-31 tablets Luke s 10 MG 00:00: 23:59 (40 mg Medical tablet 00 :00 total) by Center mouth daily for 3 days, THEN 3 tablets (30 mg total) daily for 3 days, THEN 2 tablets (20 mg total) daily for 3 days, THEN 1 tablet (10 mg total) daily for 3 days. predniSONE 2021-2021- No Take [address] [facility] (DELTASONE) 5-19 05-31 tablets Luke s 10 MG 00:00: [...] mg total) daily for 3 days. dextrometho 2022-0 2022- No 5mL Take [address] rphan-guaif -12 11-29 by mouth Sally es enesin 00:00: 23:59 every 4 Medical (ROBITUSSIN 00 :00 (four) [facility]) 10-100 hours as mg/5 mL needed for liquid up to 10 days. dextrometho 2022-0 2022- No 5mL Take [address] [facility] 11-12-29 by mouth Sally es enesin 00:00: 23:59 every 4 Medical (ROBITUSSIN 00 :00 (four) [facility]) 10-100 hours as mg/5 mL needed for liquid up to 10 days. dextrometho 2-0 2022- No 5mL Take [address] [facility] 11-12- by mouth Sally es enesin 00:00: 23:59 every 4 Medical (ROBITUSSIN 00 :00 (four) [facility]) 10-100 hours as mg/5 mL needed for liquid up to 10 days. dextrometho 2-0 2022- No 5mL Take [address] [facility] 11-12- by mouth Sally es enesin 00:00: 23:59 every 4 Medical (ROBITUSSIN 00 :00 (four) [facility]) 10-100 hours as mg/5 mL needed for liquid up to 10 days. dextrometho 2022-0 2022- No 5mL Take [address] [facility] 11-12-29 by mouth Sally es enesin 00:00: 23:59 every 4 Medical (ROBITUSSIN 00 :00 (four) [facility]) 10-100 hours as mg/5 mL needed for liquid up to 10 days. dextrometho 2022-0 2022- No 5mL Take [address] [facility] -12 11-29 by mouth Sally es enesin 00:00: 23:59 every 4 Medical (ROBITUSSIN 00 :00 (four) [facility]) 10-100 hours as mg/5 mL needed for liquid up to 10 days. dextrometho 2022-0 2022- No 5mL Take [address] [facility] 5-12 11-29 by mouth Sally es enesin 00:00: [...] daily for 3 days. lisinopriL 2021-0 Yes [id number] 10mg Take 1 [facility] 10 mg 4-17 tablet by ity of tablet 00:00: mouth at [place] 00 bedtime. Medical Branch metoprolol 2021-0 Yes [id number] 25mg Take 1 [facility] tartrate 25 4-17 tablet by ity of mg tablet 00:00: mouth 2 (two) Medical times Branch daily. lisinopriL 2021-0 Yes [id number] 10mg Take 1 [facility] 10 mg 4-17 tablet by ity of tablet 00:00: mouth at [place] 00 bedtime. Medical Branch metoprolol 2021-0 Yes [id number] 25mg Take 1 [facility] tartrate 25 4-17 tablet by ity of mg tablet 00:00: mouth 2 [place] (two) Medical times Branch daily. lisinopriL 2021-0 Yes [id number] 10mg Take 1 [facility] 10 mg 4-17 tablet by ity of tablet 00:00: mouth at [place] [address] bedtime. Medical Branch metoprolol 2021-0 Yes [id number] 25mg Take 1 [facility] tartrate 25 4-17 tablet by ity of mg tablet 00:00: mouth 2 [place] (two) Medical times Branch daily. lisinopriL 2021-0 Yes [id number] 10mg Take 1 [facility] 10 mg 4-17 tablet by ity of tablet 00:00: mouth at [place] [address] bedtime. Medical Branch metoprolol 2021-0 Yes [id number] 25mg Take 1 [facility] tartrate 25 4-17 tablet by ity of mg tablet 00:00: mouth 2 [place] (two) Medical times Branch daily. lisinopriL 2021-0 Yes [id number] 10mg Take 1 [facility] 10 mg 4-17 tablet by ity of tablet 00:00: mouth at [place] [address] bedtime. Medical Branch metoprolol 2021-0 Yes [id number] 25mg Take 1 [facility] tartrate 25 4-17 tablet by ity of mg tablet 00:00: mouth 2 [place] (two) Medical times Branch daily. lisinopriL 2021-0 Yes [id number] 10mg Take 1 [facility] 10 mg 4-17 tablet by ity of tablet 00:00: mouth at [place] [address] bedtime. Medical Branch metoprolol 2021-0 Yes [id number] 25mg Take 1 [facility] tartrate 25 4-17 tablet by ity of mg tablet 00:00: mouth 2 [place] 00 (two) Medical times Branch daily. lisinopriL Yes [id number] 10mg Take 1 [facility] 10 mg 4-17 tablet by ity of tablet 00:00: mouth at [place] [address] bedtime. Medical Branch metoprolol Yes [id number] 25mg Take 1 [facility] tartrate 25 4-17 tablet by ity of mg tablet 00:00: mouth 2 [place] 00 (two) Medical times Branch daily. lisinopriL Yes [id number] 10mg Take 1 [facility] 10 mg 4-17 tablet by ity of tablet 00:00: mouth at [place] [address] bedtime. Medical Branch metoprolol Yes [id number] 25mg Take 1 [facility] tartrate 25 4-17 [...] Comments Source Systolic blood 2022-02-17 115 mm[Hg] [place] of pressure 14:38:59 [facility] Diastolic blood 2022-02-17 71 mm[Hg] [facility] pressure 14:38:59 [facility] Respiratory rate 2022-02-17 20 /min [facility] 14:38:59 [facility] Oxygen saturation 2022-02-17 100 /min [facility] in Arterial blood 14:38:59 [facility] by Pulse oximetry Branch Heart rate 2022-02-17 76 /min [facility] 11:00:00 [facility] Body temperature 2022-02-17 36.44 Leni [facility] 09:00:00 [facility] Body height 2022-02-14 182.9 cm [facility] 22:40:00 [facility] Body weight 2022-02-14 83.6 kg [facility] 22:40:00 [facility] BMI 2022-02-14 25.00 kg/m2 [facility] 22:40:00 [facility] WEIGHT 2021-11-11 81.5 kg 04:18:00 HEIGHT 2021-11-10 [...] 2021-11-12 60 /min [facility] 19:40:00 [facility] Respiratory rate 2021-11-12 18 /min [facility] 19:40:00 [facility] Oxygen saturation 2021-11-12 99 /min [facility] in Arterial blood 19:40:00 Medical nter by Pulse oximetry Systolic blood 2021-11-12 137 mm[Hg] [facility] pressure 16:00:00 [facility] Diastolic blood 2021-11-12 83 mm[Hg] [facility] pressure 16:00:00 [facility] Body temperature 2021-11-[address] [facility] 16:00:00 [facility] Body weight 2021-11-[address] [facility] 04:18:00 [facility] BMI 2021-11-11 24.37 kg/m2 [facility] 04:18:00 [facility] Body height 2021-11-10 182.9 cm [facility] 04:48:00 [facility] Systolic blood 2020-04-16 141 mm[Hg] Location: LUE; [facility] pressure 07:34:00 Position: Sitting Diastolic blood 2020-04-16 60 mm[Hg] Location: LUE; [facility] pressure 07:34:00 Position: Sitting Weight 2020-04-16 173.125 [lb_av] [facility] 07:34:00 Body mass index 2020-04-16 22.23 kg/m2 [facility] (BMI) [Ratio] 07:34:00 Body temperature 2020-04-16 97.2 [degF] Method: [facility] 07:34:00 Tympanic Heart Rate 2020-04-16 59 /min Location: L [facility] 07:34:00 Radial; Quality: Normal O2 SAT 2020-04-16 95 % Source: [facility] 07:34:00 Non-Rebreather Systolic blood 2020-04-07 137 mm[Hg] Location: RUE; [facility] pressure 14:12:00 Position: Sitting Diastolic blood 2020-04-07 74 mm[Hg] Location: RUE; [facility] pressure 14:12:00 Position: Sitting Body [...] O2 SAT 2020-04-07 97 % Source: [facility] 14:12:00 Procedures Procedure Date / Time Performing Clinician Source Performed AUTHORIZATION FOR RELEASE 2022-10-05 05:01:00 Doctor Unadoug, [facility] ASSIGNMENT OF BENEFITS 2022-03-31 22:21:39 Doctor Unassnakul [facility] AUTHORIZATION FOR RELEASE 2022-03-02 05:01:00 Doctor Cynthia, [facility] AUTHORIZATION FOR RELEASE 2022-02-26 05:01:00 Doctor Unassigned, [facility] AUTHORIZATION FOR RELEASE 2022-02-22 05:01:00 Doctor Cynthia, [facility] [place] POCT GLUCOSE (AUTOMATED) 2022-02-20 18:39:00 Carmelo Hodgson [facility] POCT GLUCOSE (AUTOMATED) 2022-02-20 14:45:00 Carmelo Hodgson [facility] BASIC METABOLIC PANEL (NA, 2022-02-20 10:00:00 Arcelia Tellez [facility] K, CL, CO2, GLUCOSE, BUN, Medica l Branch CREATININE, CA) EMERGENCY SERVICES 2022-02-20 05:01:00 Doctor Cynthia, [facility] AGREEMENTS AND [facility] AUTHORIZATIONS BASIC METABOLIC PANEL (NA, 2022-02-20 01:23:00 Juan Lott [facility] K, CL, CO2, GLUCOSE, BUN, Medica l Branch CREATININE, CA) POCT GLUCOSE (AUTOMATED) 2022-02-20 01:01:00 Corwin Walden [facility] POCT GLUCOSE (AUTOMATED) 2022-02-19 22:27:00 Corwin Walden [facility] BASIC METABOLIC PANEL (NA, 2022-02-19 18:07:00 Juan Lott [facility] K, CL, CO2, GLUCOSE, BUN, Medica l Branch CREATININE, CA) POCT GLUCOSE (AUTOMATED) 2022-02-19 16:22:00 Corwin Walden [facility] POCT GLUCOSE (AUTOMATED) 2022-02-19 13:14:00 Corwin Walden [facility] BASIC METABOLIC PANEL (NA, 2022-02-19 13:12:00 Rylan Jagdeep Luk[facility] K, CL, CO2, GLUCOSE, BUN, Medica l Branch CREATININE, CA) MAGNESIUM 2022-02-19 09:17:00 [facility]OLIC PAN[facility] (NA, 2022-02-19 09:17[facility]00 [facility], CO2, GLUCOSE, BUN, Medica l Branch CREATININE, CA) CBC WITHOUT DIFF 2022-02-19 09:17:00 [facility] POCT GLUCOSE (AUTOMATED) 2022-02-19 01:13:00 Corwin Walden [facility] POCT GLUCOSE (AUTOMATED) 2022-02-18 21:58:00 Corwin Walden [facility] PROCALCITONIN 2022-02-18 19:50:00 [facility]) 2022-02-18 17:30:00 Corwin Walden [facility] CT THORAX WO CONTRAST 2022-02-18 17:14:31 Kellie Puentes [facility] POCT GLUCOSE (AUTOMATED) 2022-02-18 12:57:00 Corwin Walden [facility] BASIC METABOLIC PANEL (NA, 2022-02-18 08:43:00 Arcelia Tellez [facility] K, CL, CO2, GLUCOSE, BUN, Medica l Branch CREATININE, CA) CBC WITH DIFF 2022-02-18 08:43:00 Brandie Mckeon [facility] PROCALCITONIN 2022-02-18 08:43:00 Carmelo [facility] POCT GLUCOSE (AUTOMATED) 2022-02-18 01:14:00 Corwin Walden [facility] POCT GLUCOSE (AUTOMATED) 2022-02-17 21:44:00 Corwin Walden [facility] CARDIAC CATHETERIZATION 2022-02-17 15:20:00 Logan Liu [facility] CARDIAC CATHETERIZATION 2022-02-17 15:20:00 Logan Liu [facility] CATH PROCEDURE LOG 2022-02-17 15:04:[address] [facility]OMATED) 2022-02-17 12:58:00 Corwin Walden [facility] ACTIVATED PARTIAL THRMPLAS 2022-02-17 12:53:00 Jagdeep Fagan [facility] MAGNESIUM 2022-02-17 09:01:00 Hao Contreras [facility] BASIC METABOLIC PANEL (NA, 2022-02-17 09:01:00 Contreras, Eric [facility] K, CL, CO2, GLUCOSE, BUN, Medica l Branch CREATININE, CA) CBC WITH DIFF 2022-02-17 09:01:00 Mike, [facility] POCT GLUCOSE (AUTOMATED) 2022-02-17 01:00:00 Corwin Walden [facility] BASIC METABOLIC PANEL (NA, 2022-02-17 00:57:00 Juan Lott [facility] K, CL, CO2, GLUCOSE, BUN, Medica l Branch CREATININE, CA) ACTIVATED PARTIAL THRMPLAS 2022-02-17 00:57:00 Brandie Mckeon [facility] POCT GLUCOSE (AUTOMATED) 2022-02-16 21:27:00 Corwin Walden [facility] TROPONIN I 2022-02-16 18:09:00 Michael Lott [facility] BASIC METABOLIC PANEL (NA, 2022-02-16 18:09:00 Juan Lott [facility] K, CL, CO2, GLUCOSE, BUN, Medica l Branch CREATININE, CA) POCT GLUCOSE (AUTOMATED) 2022-02-16 16:33:00 Corwin Walden [facility] MISCELLANEOUS CULTURE 2022-02-16 13:52:00 Michael Lott [facility] ACTIVATED PARTIAL THRMPLAS 2022-02-16 13:18:00 Osbaldo Aguiar [facility] POCT GLUCOSE (AUTOMATED) 2022-02-16 13:15:00 Corwin Walden [facility] PHOSPHORUS 2022-02-16 06:37:00 Michael Lott [facility] MAGNESIUM 2022-02-16 06:37:00 Kaylie [facility] TROPONIN I 2022-02-16 06:37:00 [facility] BASIC METABOLIC PANEL (NA, 2022-02-16 06:37:00 Brandie Mckeon [facility] K, CL, CO2, GLUCOSE, BUN, Medica l Branch CREATININE, CA) CBC WITH DIFF 2022-02-16 06:37:00 [facility] ACTIVATED PARTIAL THRMPLAS 2022-02-16 06:37:00 Brandie Mckeon [facility] POCT GLUCOSE (AUTOMATED) 2022-02-16 01:06:00 Corwin Walden [facility] PHOSPHORUS 2022-02-15 23:35:00 Michael Lott [facility] MAGNESIUM 2022-02-15 23:35:00 Kaylie [facility] TROPONIN I 2022-02-15 23:35:00 Jagdeep [facility] BASIC METABOLIC PANEL (NA, 2022-02-15 23:35:00 Corwin Walden [facility] K, CL, CO2, GLUCOSE, BUN, Medica l Branch CREATININE, CA) ACTIVATED PARTIAL THRMPLAS 2022-02-15 23:35:00 Osbaldo Aguiar [facility] POCT GLUCOSE (AUTOMATED) 2022-02-15 23:07:00 Corwin Walden [facility] ACTIVATED PARTIAL THRMPLAS 2022-02-15 17:03:[address] [facility] BLOOD CULTURE SCREEN 2022-02-15 16:58:00 Michael Lott [facility] PHOSPHORUS 2022-02-15 16:58:00 [facility] 2022-02-15 16:58:00 Kaylie [facility] TROPONIN I 2022-02-15 16:58:00 Kaylie [facility] BASIC METABOLIC PANEL (NA, 2022-02-15 16:58:00 Corwin Walden [facility] K, CL, CO2, GLUCOSE, BUN, Medica l Branch CREATININE, CA) POCT GLUCOSE (AUTOMATED) 2022-02-15 16:41:00 Corwin Walden [facility] TRANSTHORACIC ECHO (TTE) 2022-02-15 13:26:00 Corwin Walden [facility] W/ CONTRAST Medical Bran ch POCT GLUCOSE (AUTOMATED) 2022-02-15 13:04:00 Corwin Walden [facility] TROPONIN I 2022-02-15 11:04:00 Kamaljit [facility] PROCALCITONIN 2022-02-15 11:04:00 Kaylie [facility] MAGNESIUM 2022-02-15 10:14:00 Corwin [facility] BASIC METABOLIC PANEL (NA, 2022-02-15 10:14:00 Corwin Walden [facility] K, CL, CO2, GLUCOSE, BUN, Medica l Branch CREATININE, CA) CBC WITHOUT DIFF 2022-02-15 10:14:00 Iram [facility] ACTIVATED PARTIAL THRMPLAS 2022-02-15 10:14:00 Kamaljit Astorga [facility] ACTIVATED PARTIAL THRMPLAS 2022-02-15 03:55:00 Kamaljit Astorga [facility] POCT GLUCOSE (AUTOMATED) 2022-02-15 02:36:00 Corwin Walden [facility] MRSA / MSSA SCREEN BY PCR, 2022-02-15 02:28:00 Corwin Walden [facility] XR CHEST 1 VW 2022-02-15 00:53:48 Iram [facility] TROPONIN I 2022-02-15 00:48:00 Iram [facility] BASIC METABOLIC PANEL (NA, 2022-02-15 00:48:00 Corwin Walden [facility] K, CL, CO2, GLUCOSE, BUN, Medica l Branch CREATININE, CA) LACTIC ACID WHOLE BLOOD 2022-02-15 00:48:00 Corwin Walden [facility] EKG-12 LEAD 2022-02-14 22:40:56 Osbaldo Aguiar [facility] CRITICAL CARE 2022-02-14 22:10:00 Osbaldo [facility]ar [facility] AC PANEL 20 + LACTIC ACID 2022-02-14 21:25:00 Osbaldo Aguiar [facility] ACTIVATED PARTIAL THRMPLAS 2022-02-14 20:54:00 Osbaldo Aguiar [facility] BLOOD CULTURE SCREEN 2022-02-14 20:53:00 Osbaldo Aguiar [facility] BLOOD CULTURE WORKUP 2022-02-14 20:53:00 Osbaldo Aguiar [facility] GRAM POSITIVE BLOOD 2022-02-14 20:53:00 Osbaldo Aguiar [facility] PROBE-AEROBIC AC PANEL 20 + LACTIC ACID 2022-02-14 20:23:00 Osbaldo Aguiar [facility] HB ECG ROUTINE & RHYTHM 2022-02-14 20:16:55 Osbaldo Aguiar [facility] XR CHEST 1 VW 2022-02-14 20:08:00 Osbaldo [facility]uiar [facility] MAGNESIUM 2022-02-14 20:01:00 Osbaldo [facility]uiar [facility] TROPONIN I 2022-02-14 20:01:00 Osbaldo [facility]uiar [facility] COMP. METABOLIC PANEL 2022-02-14 20:01:00 Osbaldo Aguiar [facility] ([id number]) [facility] CBC WITH DIFF 2022-02-14 20:01:00 Osbaldo [facility]uiar [facility] PROTHROMBIN TIME / INR 2022-02-14 20:01:00 Osbaldo Aguiar [facility] N-TERMINAL PRO-BNP 2022-02-14 20:01:00 Osbaldo Aguiar [facility] COVID-19 (ID NOW RAPID 2022-02-14 20:01:00 Osbaldo Aguiar [facility] TESTING) Medical Branch LAB ONLY COVID 2022-02-14 20:01:00 Osbaldo Aguiar [place] [facility] [place] INTERPRETATION Medical Branch CONSENT/REFUSAL FOR 2022-02-14 19:55:28 Doctor Unassigned, [facility] DIAGNOSIS AND TREATMENT [facility] [place] EXTERNAL PROVIDER RECORDS 2022-02-14 05:01:00 Doctor Unassigned, [facility] HOSPITAL ADMISSION 2022-02-14 05:01:00 Doctor Unassigned, [facility] POCT-GLUCOSE METER 2021-11-12 15:41:00 Prosper [facility] POCT-GLUCOSE METER 2021-11-12 11:18:00 [facility]SE METER 2021-11-12 06:33:00 Prosper [facility] CBC W/PLT COUNT & AUTO 2021-11-12 04:33:00 Juventino Smith [facility] BASIC METABOLIC PANEL 2021-11-12 04:33:00 Juventino Smith [facility] MAGNESIUM 2021-11-12 04:33:00 Juventino Smith [facility] CBC W/PLT COUNT & AUTO 2021-11-12 04:33:00 Juventino Smith [facility] POCT-GLUCOSE METER 2021-11-11 21:38:00 Prosper [facility] POCT-GLUCOSE METER 2021-11-11 16:31:00 [facility] POCT-GLUCOSE METER 2021-11-11 11:33:00 [facility] NM MYOCARDIAL PERFUSION 2021-11-11 11:00:00 Bebeto [facility] SPECT, [facility] Center ECG 12-LEAD 2021-11-11 09:26:30 Bebeto [facility] POCT-GLUCOSE METER 2021-11-11 06:42:00 Juventino Smith [facility] XR CHEST 1 VIEW PORTABLE / 2021-11-11 05:48:00 Robb Reina [facility] BEDSIDE [facility] CBC W/PLT COUNT & AUTO 2021-11-11 04:06:00 [facility] BASIC METABOLIC PANEL 2021-11-11 04:06:00 [facility] MAGNESIUM 2021-11-11 04:06:00 [facility] CBC W/PLT COUNT & AUTO 2021-11-11 04:06:00 [facility] POCT-GLUCOSE METER 2021-11-10 20:48:00 [facility] POCT-GLUCOSE METER 2021-11-10 15:39:00 [facility] Juventino C [facility] POCT-GLUCOSE METER 2021-11-10 11:33:00 [facility] BASIC METABOLIC PANEL 2021-11-10 06:58:00 [facility] 2021-11-10 06:58:00 [facility] CBC W/PLT COUNT & AUTO 2021-11-10 06:58:00 [facility] CBC W/PLT COUNT & AUTO 2021-11-10 06:58:00 [facility] POCT-GLUCOSE METER 2021-11-10 06:54:00 [facility] POCT-GLUCOSE METER 2021-11-09 21:49:00 [facility] Juventino C [facility] POCT-GLUCOSE METER 2021-11-09 16:10:00 [facility] Juventino C [facility] POCT-GLUCOSE METER 2021-11-09 12:19:00 [facility] VENOUS DOPPLER LEGS 2021-11-09 10:33:00 Velma Bustamante [facility] XR CHEST 1 VIEW PORTABLE / 2021-11-09 07:32:00 Velma Bustamante [facility] POCT-GLUCOSE METER 2021-11-09 07:22:00 Juventino Smith [facility] BASIC METABOLIC PANEL 2021-11-09 04:06:00 Cheri, [facility] HEPATIC FUNCTION PANEL 2021-11-09 04:06:[address] [facility] CBC W/PLT COUNT & AUTO 2021-11-09 04:06:00 Cheri [facility] HC LAB HIV-1 AG W/HIV-1&2 2021-11-09 04:06:00 [facility], ACUTE 2021-11-09 04:06:[address] [place] [facility] HEMOGLOBIN A1C 2021-11-09 04:06:00 Hubert dominic [place] [facility] APTT 2021-11-09 04:06:00 Cheri [facility] CBC W/PLT COUNT & AUTO 2021-11-09 04:06:00 Cheri [facility] TROPONIN I 2021-11-09 00:21:00 Cheri [facility] ECG 12-LEAD 2021-11-08 21:26:59 Unknown, Hl7 Doctor [facility] POCT-GLUCOSE METER 2021-11-08 20:43:00 Juventino Smith [facility] APTT 2021-11-08 19:42:00 Cheri [facility] TROPONIN I 2021-11-08 16:28:00 Cheri [facility] GLUCOSE 2021-11-08 16:27:00 Juventino Smith [facility] SPUTUM CULTURE + GRAM 2021-11-08 15:33:[address] [facility] US RENAL COMPLETE 2021-11-08 12:14:00 Cheri, [facility] POCT-GLUCOSE METER 2021-11-08 11:32:00 Juventino Smith [facility] APTT 2021-11-08 11:22:00 Cheri, [facility] TROPONIN I 2021-11-08 11:22:00 Cheri, [facility] BASIC METABOLIC PANEL 2021-11-08 11:22:00 Chester Jarvis [facility] 2D ECHO W/ DOPPLER 2021-11-08 10:36:38 Cheri [facility] (CW/PW/COLOR) [facility] CT CHEST WITHOUT IV 2021-11-08 09:34:[address] [facility] CONTRAST [facility] NM LUNG PERFUSION SCAN 2021-11-08 09:20:[address] [facility] XR CHEST 1 VIEW PORTABLE / 2021-11-08 08:23:00 Chester Jarvis [facility] APTT 2021-11-08 05:53:00 Cheri, [facility] LACTIC ACID, VENOUS 2021-11-08 05:07:00 Cheri, [facility] LEGIONELLA ANTIGEN, URINE 2021-11-08 04:17:00 CheriJen lucero [facility] URINALYSIS WITH 2021-11-08 [facility]:16[facility] URINALYSIS MICROSCOPIC 2021-11-08 04:16:[address] [facility] TROPONIN I 2021-11-08 04:07:00 Cheri [facility] BLOOD CULTURE 2021-11-08 04:02:00 Cheri [facility] POCT-GLUCOSE METER 2021-11-08 04:00:00 Cheri, [facility] PROCALCITONIN 2021-11-08 03:59:00 Cheri, [facility] BASIC METABOLIC PANEL 2021-11-08 03:58:00 Cheri, [facility] HEPATIC FUNCTION PANEL 2021-11-08 03:58:00 Cheri, [facility] HEMOGLOBIN A1C 2021-11-08 03:58:00 Cheri, [facility] PROTHROMBIN TIME/INR 2021-11-08 03:58:00 Cheri, [facility] MAGNESIUM 2021-11-08 03:58:00 Cheri, [facility] PHOSPHORUS 2021-11-08 03:58:00 Cheri, [facility] CBC W/PLT COUNT & AUTO 2021-11-08 03:58:00 Cheri, [facility] B-TYPE NATRIURETIC FACTOR 2021-11-08 03:58:00 Cheri, [facility] (BNP) [facility] D-DIMER 2021-11-08 03:58:00 Cheri, [facility] CBC W/PLT COUNT & AUTO 2021-11-08 03:58:00 Cheri, [facility] ECG 12-LEAD 2021-11-08 03:52:58 Cheri, [facility] XR CHEST 1 VIEW PORTABLE / 2021-11-08 03:47:00 Cheri, [facility] BEDSIDE [facility] XR ABDOMEN/KUB 1 VIEW 2021-11-08 03:47:[address] 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 [id number] Plan of Care Planned Activity Planned Date Details Comments Source Future Scheduled 2023-02-[address] [facility] Test 00:00:00 (Season Ended) [code = Medic [facility] Center INFLUENZA VACCINE (Season Ended)] Future Scheduled 2022-11-[address] [...] [facility] Counseling and Screening (12+)] Future Scheduled 2022-06-[address] [facility] 00:00:00 (12+) [code = Medical Center DEPRESSION SCREENING (12+)] Future Scheduled 2022-06-27 F[place] [address] SCREENING [facility] 00:00:00 [code = FALLS RISK Medical C enter SCREENING] Future Scheduled 2022-02-25 INFLUENZA VACCINE (#1) C [...] [facility] 00:00:00 pulm nodule 12191 [code = 97330] Diagnostic Test 2020-04-[address] Lung solitary [facility]ending 00:00:00 pulm nodule 96173 [code = 85823] Future Scheduled [address] [facility] 00:00:00 aneurysm screening Medical C enter (procedure) [code = 990232518] Future Scheduled [address] [facility] 00:00:00 aneurysm screening Medical C enter (procedure) [code = 392300135] Future Scheduled [address] [facility] 00:00:00 aneurysm screening Medical C enter (procedure) [code = 090882968] Future Scheduled [address] [facility] 00:00:00 aneurysm screening Medical C enter (procedure) [code = 963175654] Future Scheduled [address] [facility] 00:00:00 aneurysm screening Medical C enter (procedure) [code = 208370992] Future Scheduled [address] [facility] 00:00:00 aneurysm screening Medical C enter (procedure) [code = 865144578] Future Scheduled 2002 SHINGLES VACCINES (1 [facility] colon (procedure) [code = 025979256] Future Scheduled [address] [facility] colon (procedure) [code = 489896070] Future Scheduled [address] [facility] 00:00:00 [facility] colon (procedure) [code = 604752318] Future Scheduled [address] [facility] 00:00:00 [facility] colon (procedure) [code = 258747058] Future Scheduled 1952 Sigmoidoscopy [facility]code [facility]] [facility] Cent[facility] Future Scheduled [address] [facility] 00:00:00 (combo) [code = CT Medical C enter Colonography (combo)] Future Scheduled [address] [facility] 00:00:00 [facility] colon (procedure) [code = 418745830] Future Scheduled [address] [facility] 00:00:00 [facility] colon (procedure) [code = 909359171] Future Scheduled [address] [facility] 00:00:00 [facility] colon (procedure) [code = 132086507] Future Scheduled [address] [facility] 00:00:00 [facility] colon (procedure) [code = 520356755] Future Scheduled 1952 Sigmoidoscopy [facility]code [facility]] [facility] Future Scheduled [address] [facility] 00:00:00 (combo) [code = CT Medical C enter Colonography (combo)] Future Scheduled [address] [facility] 00:00:00 [facility] colon (procedure) [code = 361370845] Future Scheduled [address] [facility] 00:00:00 malignant ne[facility] colon (procedure) [code = 788639151] Future Scheduled [address] [facility] 00:00:00 malignant ne[facility] colon (procedure) [code = 094599809] Future Scheduled [address] [facility] 00:00:00 malignant neoplasm [facility] colon (procedure) [code = 160650458] Future Scheduled 1952 Sigmoidoscopy [facility]code [facility]oscopy] [facility] Cent[facility] Future Scheduled [address] [facility] 00:00:00 (combo) [code = CT Medical C enter Colonography (combo)] Future Scheduled [address] [facility] 00:00:00 [facility] colon (procedure) [code = 118528005] Future Scheduled [address] [facility] 00:00:00 malignant [facility] colon (procedure) [code = 447509097] Future Scheduled [address] [facility] 00:00:00 [facility] colon (procedure) [code = 805832788] Future Scheduled [address] [facility] 00:00:00 [facility] colon (procedure) [code = 451692342] Future Scheduled 1952 Sigmoidoscopy [facility]code [facility]oscopy] [facility] Cent[facility] r Future Scheduled [address] [facility] 00:00:00 (combo) [code = CT Medical C enter Colonography (combo)] Future Scheduled [address] [facility] 00:00:00 [facility] colon (procedure) [code = 160191796] Future Scheduled [address] [facility] 00:00:00 malignant neoplasm [facility] colon (procedure) [code = 511338571] Future Scheduled [address] [facility] 00:00:00 malignant neoplasm [facility] colon (procedure) [code = 138901338] Future Scheduled [address] [facility] 00:00:00 malignant ne[facility] colon (procedure) [code = 660229432] Future Scheduled 1952 Sigmoidoscopy [facility]code [facility]oscopy] Medical Cent[facility] r Future Scheduled [address] [facility] 00:00:00 (combo) [code = CT Medical C enter Colonography (combo)] Future Scheduled [address] [facility] 00:00:00 malignant ne[facility] colon (procedure) [code = 412083324] Future Scheduled [address] [facility] 00:00:00 [facility] colon (procedure) [code = 954036577] Future Scheduled [address] [facility] 00:00:00 malignant neoplasm of [facility] colon (procedure) [code = 694654543] Future Scheduled [address] [facility] 00:00:00 malignant neoplasm of [facility] colon (procedure) [code = 343076419] Future Scheduled 1952 Sigmoidoscopy [facility]code = [facility]oscopy] Medical Cent[facility] r Future Scheduled [address] [facility] 00:00:00 (combo) [code = CT Medical C enter Colonography (combo)] Future Scheduled [address] [facility] 00:00:00 malignant neoplasm [facility] colon (procedure) [code = 984662037] Future Scheduled [address] [facility] 00:00:00 [facility] colon (procedure) [code = 154357628] Future Scheduled [address] [facility] 00:00:00 malignant neoplasm of [facility] colon (procedure) [code = 009108550] Future Scheduled [address] [facility] 00:00:00 malignant neoplasm of [facility] colon (procedure) [code = 090536515] Future Scheduled 1952 Sigmoidoscopy [code [facility] S[facility]oscopy] Medical Cente r Encounters Start End Encounter Admission Attending Care Care Encounter Source Date/Time Date/Time Type Type Clinicians Facility Department ID 2022-10-05 2022-10-05 Orders Doctor CASTRO 1.2.840.114 [id number] [facility] 00:00:00 00:00:00 Only Unassigned, MARTHA 350.1.13.10 ity of [place] [facility] 4.2.7.2.686 Rolando as [phone] [address] 2022-03-31 2022-03-31 Orders Doctor CASTRO 1.2.840.114 [id number] Univers 00:00:00 00:00:00 Only Unassigned, MARTHA 350.1.13.10 ity of [place] [facility] 4.2.7.2.686 Rol[place] as [phone] [address] 2022-03-02 2022-03-02 Orders Doctor CASTRO 1.2.840.114 [id number] Univers 00:00:00 00:00:00 Only Unassigned, MARTHA 350.1.13.10 ity of [place] [facility] 4.2.7.2.686 [place] as [phone] [address] 2022-02-26 2022-02-26 Orders Doctor CASTRO 1.2.840.114 [id number] Univers 00:00:00 00:00:00 Only Unassigned, MARTHA 350.1.13.10 ity of [place] [facility] 4.2.7.2.686 [place] as [phone] [address] 2022-02-23 2022-02-23 Care Marlisa 2.16.840. 2.16.840.1. CLAC [id number] [facility] 21:00:00 21:30:00 Faustino Yi 1.706903. 108832.4.6. [facility] 4. [id number] 2022-02-23 2022-02-23 Transition ENE Wang 1.2.840.114 [id number] Univers 00:00:00 00:00:00 of Care Nyasia REDDINGY 350.1.13.10 [place] [phone] [facility] [address] 2022-02-22 2022-02-22 Transition ENE Wang 1.2.840.114 [id number] Univers 00:00:00 00:00:00 of Care Nyasia B LEHMAN 350.1.13.10 [place] [id number] [facility] [address] 2022-02-22 2022-02-22 Orders Doctor MATTHEW 1.2.840.114 [id number] Univers 00:00:00 00:00:00 Only Unassigned, MARTHA 350.1.13.10 [place]y of [place] [facility] 4.2.7.2.686 [place] [phone] [facility] [address] 2022-02-20 2022-02-20 Emergency X [facility] ERT [id number] Univers 18:53:00 20:00:00 FELICIA iraj o f [facility] 2022-02-20 2022-02-20 Emergency [facility] 1.2.840.114 [id number] Univers 18:53:00 20:00:[address] [facility] 350.1.13.10 i [place] [phone] [address] ([facility]) 2022-02-20 2022-02-20 Emergency X [facility] ERT [id number] Univers 18:53:00 20:00:00 FELICIA dereky o f [facility] 2022-02-14 2022-02-20 Hospital Osbaldo Aguiar [facility] 1.2.840.1 [id number] Univers 14:51:00 17:13:00 Encounter Corwin Walden VIRA 350.1.13.10 ity of [place] 4.2.7.2.686 T Carmelo Foster [phone] [address] ([facility]) 2022-02-14 2022-02-20 Inpatient X REMA [facility] [id number] Univers 14:51:00 17:13:00 CARMELO galo [facility] 2022-02-17 2022-02-17 [facility] 1.2.840.114 [id number] Univers 09:00:00 11:00:00 [facility] 350.1.13.10 it y of [place] 4.2.7.2.686 Dru [place]ES[place] [phone] [place] [id number] ([facility]) 2022-01-08 2022-01-08 Outpatient DMG [facility] [id number] [facility] 07:10:00 07:10:00 0715 Medica l Group 2022-01-08 2022-01-08 Outpatient DMG [facility] [id number] [facility] 00:00:00 00:00:00 0506 Medica l Group 2021-12-09 2021-12-09 Outpatient GUANAKO MALONE [facility] [id number] SLE 00:00:00 00:00:00 MAHBOOB 2021-12-08 2021-12-[address] [facility] [id number] [facility]00 [facility] 2021-12-08 2021-12-[address] [facility] [id number] [id number] [facility] 00[facility]00 [facility] 2021-11-08 2021-11-12 Inpatient ER GRAHAM CANNON Medical ICU [id number] [facility] 03:10:00 20:10:00 RICKIE 2021-11-08 2021-11-12 Hospital ER Jen Alonzo [facility] [id number] 03:10:00 20:10:00 [facility] 2021-11-10 2021-11-10 Travel [facility] [id number] [facility] 00[facility]00 [facility] 2021-10-11 2021-10-11 Emergency X FARZANA, [facility] ERT [id number] Univers 05:52:00 06:48:00 HARDEEP galo [facility] 2021-10-11 2021-10-11 Emergency Babsriil, [facility] 1.2.861.996 [id number] Univers 05:52:00 06:48:00 Hardeep RUSSELL 350.1.13.10 itGuido 4.2.7.2.686 [facility] [phone] Medi [place] [address] 2020-11-21 2020-11-21 Outpatient DMG DMG [id number] [facility] 08:00:00 08:00:00 0528 Medica l Group 2020-05-05 2020-05-05 Outpatient [facility] 13:21:00 15:55:00 PASTORA 2020-04-15 2020-04-15 AppointDOLLY [facility] [id number] [place] 14:00:00 14:00:00 t; [facility] FR[facility]IS, [facility] christina DESIR M.D. Wellman 2020-04-07 2020-04-07 Appointmen JOHN, [facility] & [id number] [place] 13:30:00 13:30:00 t; PASTORA LOPEZ, Sleep Physi ci Carlos GUILLORY M.D. Results Test Description Test Time Test Comments Results Result Comments Source BLOOD CULTURE SCREEN 2022-02-20 19:01:45 Test Item Value Reference Range Interpretation Comme nts Blood Culture-Aerobic (test No organisms isolated No growth Previous preliminary code = 13544-9) verified res ult was Culture In Prog [...] No growth Previous preliminary (test code = 82063-4) verifi ed result was Culture In Prog [...] CDT Lab Interpretation (test Normal code = 79953-1) [facility] CULTURE [id number] 19:01:45 Test Item Value Reference Range Interpretation Comments Blood Culture-Aerobic No organisms No growth Previo us (test code = 34509-0) isolated prelim inary verified result was Culture [...] Culture-Anaerobic isolated preliminar y (test code = 24025-1) verifi ed result was Culture In Progress [...] CDT Lab Interpretation Normal (test code = 90200-5) [facility] CULTURE [id number] 19:01:45 Test Item Value Reference Range Interpretation Comments Blood Culture-Aerobic No organisms No growth Previo us (test code = 90510-5) isolated prelim inary verified result was Culture [...] Culture-Anaerobic isolated preliminar y (test code = 12119-2) verifi ed result was Culture In Progress [...] CDT Lab Interpretation Normal (test code = 65437-1) [id number] 19:01:45 Test Item Value Reference Range Interpretation Comments Blood Culture-Aerobic No organisms No growth Previo us (test code = 93694-8) isolated prelim inary verified result was Culture [...] Culture-Anaerobic isolated preliminar y (test code = 68130-4) verifi ed result was Culture In Progress [...] CDT Lab Interpretation Normal (test code = 63774-3) [facility] GLUCOSE (AUTOMATED)2022-02-20 18:40:11 Test Item Value Reference Range Interpretation Comments POCT GLU (test code = 8324703346) 168 mg/dL 70-110 H Lab Interpretation (test code = Abnormal 89386-9) [facility] GLUCOSE (AUTOMATED)2022-02-20 18:40:11 Test Item Value Reference Range Interpretation Comments POCT GLU (test code = 9365891034) 168 mg/dL 70-110 H Lab Interpretation (test code = Abnormal 66815-0) [facility] GLUCOSE (AUTOMATED)2022-02-20 14:46:14 Test Item Value Reference Range Interpretation Comments POCT GLU (test code = 8244892183) 235 mg/dL 70-110 H Lab Interpretation (test code = Abnormal 77612-7) [facility]-20 14:46:14 Test Item Value Reference Range Interpretation Comments POCT GLU (test code = 0078658002) 235 mg/dL 70-110 H Lab Interpretation (test code = Abnormal 49931-1) [facility] METABOLIC PANEL (NA, K, CL, CO2, GLUCOSE, BUN, CREATININE, CA)2022-02-20 02:03:45 Test Item Value Reference Range Interpretation Comments NA (test code = 131 mmol/L 135-145 L 8861461914) K (test code = 4.9 mmol/L 3.5-5.0 3605559596) CL (test code = 102 mmol/L 98-108 9492567421) CO2 TOTAL (test code = 25 mmol/L 23-31 3760277032) AGAP (test code = 2-16 3169581384) BUN (test code = 52 mg/dL 7-23 H 0933200615) GLUCOSE (test code = 143 mg/dL 70-110 H 2909585757) CREATININE (test code = 1.40 mg/dL 0.60-1.25 H 1412620097) CALCIUM (test code = 8.3 mg/dL 8.6-10.6 L 5172620900) eGFR (test code = mL/min/1.73m2 8520047690) JUAN (test code = JUAN) Association of [...] tests). Lab Interpretation Abnormal (test code = 20004-6) [facility] METABOLIC PANEL (NA, K, CL, CO2, GLUCOSE, BUN, CREATININE, CA)2022-02-20 02:03:45 Test Item Value Reference Range Interpretation Comments NA (test code = 131 mmol/L 135-145 L 2335476552) K (test code = 4.9 mmol/L 3.5-5.0 5341248456) CL (test code = 102 mmol/L 98-108 4091449668) CO2 TOTAL (test code = 25 mmol/L 23-31 0620580966) AGAP (test code = 2-16 4669297592) BUN (test code = 52 mg/dL 7-23 H 1000203510) GLUCOSE (test code = 143 mg/dL 70-110 H 4186830234) CREATININE (test code = 1.40 mg/dL 0.60-1.25 H 6233015667) CALCIUM (test code = 8.3 mg/dL 8.6-10.6 L 7016336555) eGFR (test code = mL/min/1.73m2 5145896876) JUAN (test code = JUAN) Association of [...] tests). Lab Interpretation Abnormal (test code = 57570-2) [facility] GLUCOSE (AUTOMATED)2022-02-20 01:02:55 Test Item Value Reference Range Interpretation Comments POCT GLU (test code = 153 mg/dL 70-110 H Notifi ed Provider [id number]) Lab Interpretation (test Abnormal code = 14461-5) [facility] GLUCOSE (AUTOMATED)2022-02-20 01:02:55 Test Item Value Reference Range Interpretation Comments POCT GLU (test code = 153 mg/dL 70-110 H Notifi ed Provider [id number]) Lab Interpretation (test Abnormal code = 18550-5) [facility] GLUCOSE (AUTOMATED)2022-02-19 22:29:08 Test Item Value Reference Range Interpretation Comments POCT GLU (test code = 1671780956) 137 mg/dL 70-110 H Lab Interpretation (test code = Abnormal 57073-5) [facility] GLUCOSE (AUTOMATED)2022-02-19 22:29:08 Test Item Value Reference Range Interpretation Comments POCT GLU (test code = 4936316572) 137 mg/dL 70-110 H Lab Interpretation (test code = Abnormal 93686-5) [facility] GLUCOSE (AUTOMATED)2022-02-19 16:28:48 Test Item Value Reference Range Interpretation Comments POCT GLU (test code = 1466241687) 200 mg/dL 70-110 H Lab Interpretation (test code = Abnormal 26957-0) [facility] GLUCOSE (AUTOMATED)2022-02-19 16:28:48 Test Item Value Reference Range Interpretation Comments POCT GLU (test code = 1310144931) 200 mg/dL 70-110 H Lab Interpretation (test code = Abnormal 40609-5) [facility] GLUCOSE (AUTOMATED)2022-02-19 13:19:05 Test Item Value Reference Range Interpretation Comments POCT GLU (test code = 9582250156) 152 mg/dL 70-110 H Lab Interpretation (test code = Abnormal 68743-1) [facility] GLUCOSE (AUTOMATED)2022-02-19 13:19:05 Test Item Value Reference Range Interpretation Comments POCT GLU (test code = 0520909110) 152 mg/dL 70-110 H Lab Interpretation (test code = Abnormal 33550-9) [facility] GLUCOSE (AUTOMATED)2022-02-19 01:15:20 Test Item Value Reference Range Interpretation Comments POCT GLU (test code = 215 mg/dL 70-110 H Notifi ed Provider [id number]) Lab Interpretation (test Abnormal code = 77585-4) [facility] 01:15:20 Test Item Value Reference Range Interpretation Comments POCT GLU (test code = 215 mg/dL 70-110 H Notifi ed Provider [id number]) Lab Interpretation (test Abnormal code = 30388-5) [facility] 21:59:14 Test Item Value Reference Range Interpretation Comments POCT GLU (test code = 4987819741) 171 mg/dL 70-110 H Lab Interpretation (test code = Abnormal 28447-3) [facility] GLUCOSE (AUTOMATED)2022-02-18 21:59:14 Test Item Value Reference Range Interpretation Comments POCT GLU (test code = 4415329961) 171 mg/dL 70-110 H Lab Interpretation (test code = Abnormal 27474-6) [facility] 20:40:46 Test Item Value Reference Interpretation Comments Range Procalcitonin (test 0.15 ng/mL See_Comment H [Automa josh code = 2918457166) message] The system which generated this result [...] lung abscess/empyema. For further information please refer to:[email or web address] p Lab Interpretation Abnormal (test code = 95417-8) [facility] 20:40:46 Test Item Value Reference Interpretation Comments Range Procalcitonin (test 0.15 ng/mL See_Comment H [Automa josh code = 8911000752) message] The system which generated this result [...] lung abscess/empyema. For further information please refer to:[email or web address] p Lab Interpretation Abnormal (test code = 28554-5) [facility] GLUCOSE (AUTOMATED)2022-02-18 17:32:13 Test Item Value Reference Range Interpretation Comments POCT GLU (test code = 5210502593) 129 mg/dL 70-110 H Lab Interpretation (test code = Abnormal 52537-8) [facility] GLUCOSE (AUTOMATED)2022-02-18 17:32:13 Test Item Value Reference Range Interpretation Comments POCT GLU (test code = 4656277173) 129 mg/dL 70-110 H Lab Interpretation (test code = Abnormal 14964-8) [facility] GLUCOSE (AUTOMATED)2022-02-18 12:59:31 Test Item Value Reference Range Interpretation Comments POCT GLU (test code = 6780598972) 89 mg/dL 70-110 Lab Interpretation (test code = Normal 10375-3) [facility] GLUCOSE (AUTOMATED)2022-02-18 12:59:31 Test Item Value Reference Range Interpretation Comments POCT GLU (test code = 6194722010) 89 mg/dL 70-110 Lab Interpretation (test code = Normal 34680-5) [facility] METABOLIC PANEL (NA, K, CL, CO2, GLUCOSE, BUN, CREATININE, CA)2022-02-18 09:38:02 Test Item Value Reference Range Interpretation Comments NA (test code = 133 mmol/L 135-145 L 1500703300) K (test code = 4.5 mmol/L 3.5-5.0 8904840352) CL (test code = 106 mmol/L 98-108 0996963268) CO2 TOTAL (test code = 23 mmol/L 23-31 4663406193) AGAP (test code = 2-16 9596081931) BUN (test code = 51 mg/dL 7-23 H 5705870593) GLUCOSE (test code = 81 mg/dL 70-110 6741611387) CREATININE (test code = 1.49 mg/dL 0.60-1.25 H 8671769790) CALCIUM (test code = 8.1 mg/dL 8.6-10.6 L 3699971429) eGFR (test code = mL/min/1.73m2 4781231696) JUAN (test code = JUAN) Association of [...] tests). Lab Interpretation Abnormal (test code = 48468-7) [facility] METABOLIC PANEL (NA, K, CL, CO2, GLUCOSE, BUN, CREATININE, CA)2022-02-18 09:38:02 Test Item Value Reference Range Interpretation Comments NA (test code = 133 mmol/L 135-145 L 1192912697) K (test code = 4.5 mmol/L 3.5-5.0 1683159494) CL (test code = 106 mmol/L 98-108 5875119470) CO2 TOTAL (test code = 23 mmol/L 23-31 0111504119) AGAP (test code = 2-16 1599366146) BUN (test code = 51 mg/dL 7-23 H 2709805584) GLUCOSE (test code = 81 mg/dL 70-110 8039415196) CREATININE (test code = 1.49 mg/dL 0.60-1.25 H 0743928081) CALCIUM (test code = 8.1 mg/dL 8.6-10.6 L 5415448288) eGFR (test code = mL/min/1.73m2 8854321402) JUAN (test code = JUAN) Association of [...] tests). Lab Interpretation Abnormal (test code = 95023-5) [facility] WITH [id number] 09:17:24 Test Item Value Reference Range Interpretation Comments WBC (test code = See_Comment [Automated 1177-2) message] The sy stem which generated this result transmitted reference range : 4.20 - 10.70 10*3/?L. The reference range was not used to interpret this result as normal/abnormal . RBC (test code = See_Comment L [Automated 733-8) message] The sy stem which generated this [...] RDW-SD (test code = 47.7 fL 38.5-51.6 91612-2) RDW-CV (test code = 14.3 % 12.1-15.4 788-0) PLT (test code = See_Comment [Automated 777-3) message] The sy stem which generated this result transmitted reference range : 150 - 328 10*3/ ?L. The reference r maxi was not used to interpret this result as normal/abnormal . MPV (test code = 10.0 fL 9.8-13.0 27930-1) NRBC/100 WBC (test See_Comment [Automat ed code = 3589345307) message] The system which generated this result transmitted reference range : 0.0 - 10.0 /100 WBCs. The refer ence range was not u sed to interpret th is result as normal/abnormal . NRBC x10^3 (test code See_Comment [Auto mated = 2351885603) message] The s ystem which generated this result transmitted reference range : 10*3/?L. The reference range was not used to interpret this result as normal/abnormal . GRAN MAT (NEUT) % 55.8 % (test code = 770-8) IMM GRAN % (test code 4.10 % = 6788280487) LYMPH % (test code = 30.1 % 736-9) MONO % (test code = 7.1 % 5905-5) EOS % (test code = 2.7 % 713-8) BASO % (test code = 0.2 % 706-2) GRAN MAT x10^3(ANC) 5.15 10*3/uL 1.99-6.95 (test code = 5228053782) IMM GRAN x10^3 (test 0.38 10*3/uL 0.00-0.06 H code = 3583604382) LYMPH x10^3 (test code 2.78 10*3/uL 1.09-3.23 = 731-0) MONO x10^3 (test code 0.66 10*3/uL 0.36-1.02 = 742-7) EOS x10^3 (test code = 0.25 10*3/uL 0.06-0.53 711-2) BASO x10^3 (test code 0.01-0.09 = 704-7) TOXIC CHANGES (test Present A code = 803-7) Lab Interpretation Abnormal (test code = 43590-8) [facility] WITH [id number] 09:17:24 Test Item Value Reference Range Interpretation [...] RDW-SD (test code = 47.7 fL 38.5-51.6 23885-4) RDW-CV (test code = 14.3 % 12.1-15.4 788-0) PLT (test code = See_Comment [Automated 777-3) message] The sy stem which generated this result transmitted reference range : 150 - 328 10*3/ ?L. The reference r maxi was not used to interpret this result as normal/abnormal . MPV (test code = 10.0 fL 9.8-13.0 46967-1) NRBC/100 WBC (test See_Comment [Automat ed code = 8080606343) message] The system which generated this result transmitted reference range : 0.0 - 10.0 /100 WBCs. The refer ence range was not u sed to interpret th is result as normal/abnormal . NRBC x10^3 (test code See_Comment [Auto mated = 1303803870) message] The s ystem which generated this result transmitted reference range : 10*3/?L. The reference range was not used to interpret this result as normal/abnormal . GRAN MAT (NEUT) % 55.8 % (test code = 770-8) IMM GRAN % (test code 4.10 % = 3606772908) LYMPH % (test code = 30.1 % 736-9) MONO % (test code = 7.1 % 5905-5) EOS % (test code = 2.7 % 713-8) BASO % (test code = 0.2 % 706-2) GRAN MAT x10^3(ANC) 5.15 10*3/uL 1.99-6.95 (test code = 1511952905) IMM GRAN x10^3 (test 0.38 10*3/uL 0.00-0.06 H code = 5778400676) LYMPH x10^3 (test code 2.78 10*3/uL 1.09-3.23 = 731-0) MONO x10^3 (test code 0.66 10*3/uL 0.36-1.02 = 742-7) EOS x10^3 (test code = 0.25 10*3/uL 0.06-0.53 711-2) BASO x10^3 (test code 0.01-0.09 = 704-7) TOXIC CHANGES (test Present A code = 803-7) Lab Interpretation Abnormal (test code = 18094-1) [facility] GLUCOSE (AUTOMATED)2022-02-18 01:16:25 Test Item Value Reference Range Interpretation Comments POCT GLU (test code = 8661365250) 170 mg/dL 70-110 H Lab Interpretation (test code = Abnormal 92247-3) [facility] GLUCOSE (AUTOMATED)2022-02-18 01:16:25 Test Item Value Reference Range Interpretation Comments POCT GLU (test code = 7173833902) 170 mg/dL 70-110 H Lab Interpretation (test code = Abnormal 19779-7) [facility] GLUCOSE (AUTOMATED)2022-02-17 21:45:32 Test Item Value Reference Range Interpretation Comments POCT GLU (test code = 7582762687) 117 mg/dL 70-110 H Lab Interpretation (test code = Abnormal 83693-9) [facility] GLUCOSE (AUTOMATED)2022-02-17 21:45:32 Test Item Value Reference Range Interpretation Comments POCT GLU (test code = 2837532083) 117 mg/dL 70-110 H Lab Interpretation (test code = Abnormal 33499-6) [place] [id number] 14:10:58 Test Item Value Reference Range Interpretation Comments APTT Patient (test code See_Comment H [Au tomated message] = 3173-2) The system [employer] generated this result transmitted ref erence range: 26 - 36 Seconds. The reference range was not used to int erpret this result as normal/abnormal . Lab Interpretation (test Abnormal code = 21881-3) [place] [id number] 14:10:58 Test Item Value Reference Range Interpretation Comments APTT Patient (test code See_Comment H [Au tomated message] = 3173-2) The system [employer] generated this result transmitted ref erence range: 26 - 36 Seconds. The reference range was not used to int erpret this result as normal/abnormal . Lab Interpretation (test Abnormal code = 08856-5) [facility] GLUCOSE (AUTOMATED)2022-02-17 13:01:31 Test Item Value Reference Range Interpretation Comments POCT GLU (test code = 9787479612) 83 mg/dL 70-110 Lab Interpretation (test code = Normal 46439-2) [facility] GLUCOSE (AUTOMATED)2022-02-17 13:01:31 Test Item Value Reference Range Interpretation Comments POCT GLU (test code = 1870370858) 83 mg/dL 70-110 Lab Interpretation (test code = Normal 52670-4) [facility] WITH [id number] 09:49:28 Test Item Value Reference Range Interpretation [...] RDW-SD (test code = 48.0 fL 38.5-51.6 38894-0) RDW-CV (test code = 14.4 % 12.1-15.4 788-0) PLT (test code = See_Comment [Automated 777-3) message] The sy stem which generated this result transmitted reference range : 150 - 328 10*3/ ?L. The reference r maxi was not used to interpret this result as normal/abnormal . MPV (test code = 10.1 fL 9.8-13.0 83471-3) NRBC/100 WBC (test See_Comment [Automat ed code = 1420291340) message] The system which generated this result transmitted reference range : 0.0 - 10.0 /100 WBCs. The refer ence range was not u sed to interpret th is result as normal/abnormal . NRBC x10^3 (test code See_Comment [Auto mated = 6194466789) message] The s ystem which generated this result transmitted reference range : 10*3/?L. The reference range was not used to interpret this result as normal/abnormal . SEG % (test code = 60 % 33-76 05553-0) MYELO % (test code = 5 % See_Comment H [Autom ated 24480-8) message] The sy stem which generated this result transmitted reference range : <=0. The refere nce range was not u sed to interpret th is result as normal/abnormal . LYMPH % (test code = 17 % 14-54 95465-8) LG GRAN LYMPH % (test 9 % See_Comment H [Auto mated code = 29373-8) message] The system which generated this result transmitted reference range : <=0. The refere nce range was not u sed to interpret th is result as normal/abnormal . MONO % (test code = 7 % 0-4 H 92670-5) EOS % (test code = 2 % 0-3 98738-5) ANC (test code = 6.32 10*3/uL 1.99-6.95 753-4) TOXIC CHANGES (test Present A code = 803-7) Lab Interpretation Abnormal (test code = 81728-6) [facility] WITH [id number] 09:49:28 Test Item Value Reference Range Interpretation [...] RDW-SD (test code = 48.0 fL 38.5-51.6 15208-3) RDW-CV (test code = 14.4 % 12.1-15.4 788-0) PLT (test code = See_Comment [Automated 777-3) message] The sy stem which generated this result transmitted reference range : 150 - 328 10*3/ ?L. The reference r maxi was not used to interpret this result as normal/abnormal . MPV (test code = 10.1 fL 9.8-13.0 22783-4) NRBC/100 WBC (test See_Comment [Automat ed code = 1699933212) message] The system which generated this result transmitted reference range : 0.0 - 10.0 /100 WBCs. The refer ence range was not u sed to interpret th is result as normal/abnormal . NRBC x10^3 (test code See_Comment [Auto mated = 7123104937) message] The s ystem which generated this result transmitted reference range : 10*3/?L. The reference range was not used to interpret this result as normal/abnormal . SEG % (test code = 60 % 33-76 56943-4) MYELO % (test code = 5 % See_Comment H [Autom ated 83103-0) message] The sy stem which generated this result transmitted reference range : <=0. The refere nce range was not u sed to interpret th is result as normal/abnormal . LYMPH % (test code = 17 % 14-54 12029-6) LG GRAN LYMPH % (test 9 % See_Comment H [Auto mated code = 95638-6) message] The system which generated this result transmitted reference range : <=0. The refere nce range was not u sed to interpret th is result as normal/abnormal . MONO % (test code = 7 % 0-4 H 50240-3) EOS % (test code = 2 % 0-3 07454-0) ANC (test code = 6.32 10*3/uL 1.99-6.95 753-4) TOXIC CHANGES (test Present A code = 803-7) Lab Interpretation Abnormal (test code = 61022-4) [facility] METABOLIC PANEL (NA, K, CL, CO2, GLUCOSE, BUN, CREATININE, CA)2022-02-17 09:47:07 Test Item Value Reference Range Interpretation Comments NA (test code = 130 mmol/L 135-145 L 0133822926) K (test code = 4.5 mmol/L 3.5-5.0 5197858794) CL (test code = 103 mmol/L 98-108 5061678429) CO2 TOTAL (test code = 26 mmol/L 23-31 4451111863) AGAP (test code = 2-16 L 9897568876) BUN (test code = 58 mg/dL 7-23 H 1720674642) GLUCOSE (test code = 92 mg/dL 70-110 9040760969) CREATININE (test code = 1.55 mg/dL 0.60-1.25 H 1534643538) CALCIUM (test code = 7.8 mg/dL 8.6-10.6 L 2799777655) eGFR (test code = mL/min/1.73m2 8389958381) JUAN (test code = JUAN) Association of [...] tests). Lab Interpretation Abnormal (test code = 65816-4) [facility] Test Item Value Reference Range Interpretation Comments MAGNESIUM (test code = 1037335964) 2.2 mg/dL 1.7-2.4 Lab Interpretation (test code = Normal 78613-2) [facility] (NA, K, CL, CO2, GLUCOSE, BUN, CREATININE, CA)2022-02-17 09:47:07 Test Item Value Reference Range Interpretation Comments NA (test code = 130 mmol/L 135-145 L 8341737753) K (test code = 4.5 mmol/L 3.5-5.0 3120469623) CL (test code = 103 mmol/L 98-108 7869489199) CO2 TOTAL (test code = 26 mmol/L 23-31 7307597716) AGAP (test code = 2-16 L 5146607927) BUN (test code = 58 mg/dL 7-23 H 2658826296) GLUCOSE (test code = 92 mg/dL 70-110 6591398788) CREATININE (test code = 1.55 mg/dL 0.60-1.25 H 6559937330) CALCIUM (test code = 7.8 mg/dL 8.6-10.6 L 0103650444) eGFR (test code = mL/min/1.73m2 3689970168) JUAN (test code = JUAN) Association of [...] tests). Lab Interpretation Abnormal (test code = 04621-7) [facility] 09:47:07 Test Item Value Reference Range Interpretation Comments MAGNESIUM (test code = 9746648443) 2.2 mg/dL 1.7-2.4 Lab Interpretation (test code = Normal 68446-8) [facility] (NA, K, CL, CO2, GLUCOSE, BUN, CREATININE, CA)2022-02-17 01:31:26 Test Item Value Reference Range Interpretation Comments NA (test code = 128 mmol/L 135-145 L 1716082045) K (test code = 4.7 mmol/L 3.5-5.0 6335343658) CL (test code = 100 mmol/L 98-108 7319941432) CO2 TOTAL (test code = 26 mmol/L 23-31 7100681402) AGAP (test code = 2-16 7125586628) BUN (test code = 61 mg/dL 7-23 H 8835147414) GLUCOSE (test code = 129 mg/dL 70-110 H 8846748113) CREATININE (test code = 1.73 mg/dL 0.60-1.25 H 6047094324) CALCIUM (test code = 7.8 mg/dL 8.6-10.6 L 2641959874) eGFR (test code = mL/min/1.73m2 3050548303) JUAN (test code = JUAN) Association of [...] tests). Lab Interpretation Abnormal (test code = 36214-1) [facility] METABOLIC PANEL (NA, K, CL, CO2, GLUCOSE, BUN, CREATININE, CA)2022-02-17 01:31:26 Test Item Value Reference Range Interpretation Comments NA (test code = 128 mmol/L 135-145 L 5495853034) K (test code = 4.7 mmol/L 3.5-5.0 0151266353) CL (test code = 100 mmol/L 98-108 9343660314) CO2 TOTAL (test code = 26 mmol/L 23-31 3287548858) AGAP (test code = 2-16 9247511784) BUN (test code = 61 mg/dL 7-23 H 7988315361) GLUCOSE (test code = 129 mg/dL 70-110 H 8880429726) CREATININE (test code = 1.73 mg/dL 0.60-1.25 H 8555431963) CALCIUM (test code = 7.8 mg/dL 8.6-10.6 L 5665501332) eGFR (test code = mL/min/1.73m2 5009420142) JUAN (test code = JUAN) Association of [...] tests). Lab Interpretation Abnormal (test code = 73744-5) [facility] [id number] 01:27:27 Test Item Value Reference Range Interpretation Comments APTT Patient (test code See_Comment H [Au tomated message] = 3173-2) The system [employer] generated this result transmitted ref erence range: 26 - 36 Seconds. The reference range was not used to int erpret this result as normal/abnormal . Lab Interpretation (test Abnormal code = 92216-8) [facility] [id number] 01:27:27 Test Item Value Reference Range Interpretation Comments APTT Patient (test code See_Comment H [Au tomated message] = 3173-2) The system [employer] generated this result transmitted ref erence range: 26 - 36 Seconds. The reference range was not used to int erpret this result as normal/abnormal . Lab Interpretation (test Abnormal code = 13184-7) [facility] GLUCOSE (AUTOMATED)2022-02-17 01:02:53 Test Item Value Reference Range Interpretation Comments POCT GLU (test code = 7957886427) 130 mg/dL 70-110 H Lab Interpretation (test code = Abnormal 72318-4) [facility] GLUCOSE (AUTOMATED)2022-02-17 01:02:53 Test Item Value Reference Range Interpretation Comments POCT GLU (test code = 3732289716) 130 mg/dL 70-110 H Lab Interpretation (test code = Abnormal 04771-0) [facility] GLUCOSE (AUTOMATED)2022-02-16 21:30:00 Test Item Value Reference Range Interpretation Comments POCT GLU (test code = 8159119484) 125 mg/dL 70-110 H Lab Interpretation (test code = Abnormal 77605-2) [facility] GLUCOSE (AUTOMATED)2022-02-16 21:30:00 Test Item Value Reference Range Interpretation Comments POCT GLU (test code = 8044424942) 125 mg/dL 70-110 H Lab Interpretation (test code = Abnormal 54671-9) [facility] [id number] 18:47:50 Test Item Value Reference Interpretation Comments Range TROPONIN I (test 17.600 ng/mL See_Comment H [Automated code = 3419673523) message] The system which generated this result [...] biotin. Lab Interpretation Abnormal (test code = 66662-6) [facility] [id number] 18:47:50 Test Item Value Reference Interpretation Comments Range TROPONIN I (test 17.600 ng/mL See_Comment H [Automated code = 9321924261) message] The system which generated this result [...] biotin. Lab Interpretation Abnormal (test code = 76154-0) [facility] METABOLIC PANEL (NA, K, CL, CO2, GLUCOSE, BUN, CREATININE, CA)2022-02-16 18:35:51 Test Item Value Reference Range Interpretation Comments NA (test code = 129 mmol/L 135-145 L 7131701697) K (test code = 4.8 mmol/L 3.5-5.0 2245698980) CL (test code = 100 mmol/L 98-108 1514555442) CO2 TOTAL (test code = 27 mmol/L 23-31 5109629577) AGAP (test code = 2-16 6718406268) BUN (test code = 62 mg/dL 7-23 H 7183784165) GLUCOSE (test code = 121 mg/dL 70-110 H 8410862154) CREATININE (test code = 1.62 mg/dL 0.60-1.25 H 1363907487) CALCIUM (test code = 8.0 mg/dL 8.6-10.6 L 4422862145) eGFR (test code = mL/min/1.73m2 7866413071) JUAN (test code = JUAN) Association of [...] tests). Lab Interpretation Abnormal (test code = 12342-0) [facility] METABOLIC PANEL (NA, K, CL, CO2, GLUCOSE, BUN, CREATININE, CA)2022-02-16 18:35:51 Test Item Value Reference Range Interpretation Comments NA (test code = 129 mmol/L 135-145 L 7757711270) K (test code = 4.8 mmol/L 3.5-5.0 3474263805) CL (test code = 100 mmol/L 98-108 1626031686) CO2 TOTAL (test code = 27 mmol/L 23-31 6999757039) AGAP (test code = 2-16 1776343308) BUN (test code = 62 mg/dL 7-23 H 9248472797) GLUCOSE (test code = 121 mg/dL 70-110 H 3309546465) CREATININE (test code = 1.62 mg/dL 0.60-1.25 H 0796024112) CALCIUM (test code = 8.0 mg/dL 8.6-10.6 L 9848211121) eGFR (test code = mL/min/1.73m2 6309393403) JUAN (test code = JUAN) Association of [...] tests). Lab Interpretation Abnormal (test code = 79896-1) [facility] GLUCOSE (AUTOMATED)2022-02-16 16:35:47 Test Item Value Reference Range Interpretation Comments POCT GLU (test code = 5949140875) 163 mg/dL 70-110 H Lab Interpretation (test code = Abnormal 11271-1) [facility] GLUCOSE (AUTOMATED)2022-02-16 16:35:47 Test Item Value Reference Range Interpretation Comments POCT GLU (test code = 4989762650) 163 mg/dL 70-110 H Lab Interpretation (test code = Abnormal 47436-2) [facility] (for use with Heparin Infusion)2022-02-16 14:04:01 Test Item Value Reference Range Interpretation Comments APTT Patient (test code See_Comment H [Au tomated message] = 3173-2) The system [employer] generated this result transmitted ref erence range: 26 - 36 Seconds. The reference range was not used to int erpret this result as normal/abnormal . Lab Interpretation (test Abnormal code = 87174-5) [facility] (for use with Heparin Infusion)2022-02-16 14:04:01 Test Item Value Reference Range Interpretation Comments APTT Patient (test code See_Comment H [Au tomated message] = 3173-2) The system [employer] generated this result transmitted ref erence range: 26 - 36 Seconds. The reference range was not used to int erpret this result as normal/abnormal . Lab Interpretation (test Abnormal code = 93017-0) [facility] GLUCOSE (AUTOMATED)2022-02-16 13:18:42 Test Item Value Reference Range Interpretation Comments POCT GLU (test code = 3798566360) 108 mg/dL 70-110 Lab Interpretation (test code = Normal 51700-3) [facility] GLUCOSE (AUTOMATED)2022-02-16 13:18:42 Test Item Value Reference Range Interpretation Comments POCT GLU (test code = 4558746516) 108 mg/dL 70-110 Lab Interpretation (test code = Normal 13710-2) [facility] [id number] 07:40:53 Test Item Value Reference Interpretation Comments Range TROPONIN I (test 27.000 ng/mL See_Comment H [Automated code = 1027202255) message] The system which generated this result [...] biotin. Lab Interpretation Abnormal (test code = 43089-6) [facility] [id number] 07:40:53 Test Item Value Reference Interpretation Comments Range TROPONIN I (test 27.000 ng/mL See_Comment H [Automated code = 1884923716) message] The system which generated this result [...] biotin. Lab Interpretation Abnormal (test code = 59832-8) [facility] METABOLIC PANEL (NA, K, CL, CO2, GLUCOSE, BUN, CREATININE, CA)2022-02-16 07:32:56 Test Item Value Reference Range Interpretation Comments NA (test code = 129 mmol/L 135-145 L 2719762369) K (test code = 4.8 mmol/L 3.5-5.0 1389216882) CL (test code = 99 mmol/L 98-108 0416345848) CO2 TOTAL (test code = 28 mmol/L 23-31 5849268434) AGAP (test code = 2-16 7998695599) BUN (test code = 60 mg/dL 7-23 H 3661722489) GLUCOSE (test code = 124 mg/dL 70-110 H 8066034311) CREATININE (test code = 1.96 mg/dL 0.60-1.25 H 0345503822) CALCIUM (test code = 8.2 mg/dL 8.6-10.6 L 5612429730) eGFR (test code = mL/min/1.73m2 1345251795) JUAN (test code = JUAN) Association of [...] tests). Lab Interpretation Abnormal (test code = 50297-0) [facility] METABOLIC PANEL (NA, K, CL, CO2, GLUCOSE, BUN, CREATININE, CA)2022-02-16 07:32:56 Test Item Value Reference Range Interpretation Comments NA (test code = 129 mmol/L 135-145 L 6372172003) K (test code = 4.8 mmol/L 3.5-5.0 4191537401) CL (test code = 99 mmol/L 98-108 3797082518) CO2 TOTAL (test code = 28 mmol/L 23-31 4521013125) AGAP (test code = 2-16 5307249123) BUN (test code = 60 mg/dL 7-23 H 6661594732) GLUCOSE (test code = 124 mg/dL 70-110 H 7767025255) CREATININE (test code = 1.96 mg/dL 0.60-1.25 H 8453556471) CALCIUM (test code = 8.2 mg/dL 8.6-10.6 L 5361972103) eGFR (test code = mL/min/1.73m2 4081795747) JUAN (test code = JUAN) Association of [...] tests). Lab Interpretation Abnormal (test code = 12917-3) [facility]2022-08-23 07:29:09 Test Item Value Reference Range Interpretation Comments MAGNESIUM (test code = 0503942109) 2.3 mg/dL 1.7-2.4 Lab Interpretation (test code = Normal 49286-3) [facility]2022-08-23 07:29:09 Test Item Value Reference Range Interpretation Comments PHOSPHORUS (test code = 8675464469) 3.4 mg/dL 2.5-5.0 Lab Interpretation (test code = Normal 83143-3) [facility]2022-08-23 07:29:09 Test Item Value Reference Range Interpretation Comments MAGNESIUM (test code = 0439464286) 2.3 mg/dL 1.7-2.4 Lab Interpretation (test code = Normal 30545-9) [facility]2022-08-23 07:29:09 Test Item Value Reference Range Interpretation Comments PHOSPHORUS (test code = 6948778053) 3.4 mg/dL 2.5-5.0 Lab Interpretation (test code = Normal 17259-4) [facility] [id number] 07:00:47 Test Item Value Reference Range Interpretation Comments APTT Patient (test code See_Comment H [Au tomated message] = 3173-2) The system [employer] generated this result transmitted ref erence range: 26 - 36 Seconds. The reference range was not used to int erpret this result as normal/abnormal . Lab Interpretation (test Abnormal code = 82090-2) [facility] [id number] 07:00:47 Test Item Value Reference Range Interpretation Comments APTT Patient (test code See_Comment H [Au tomated message] = 3173-2) The system [employer] generated this result transmitted ref erence range: 26 - 36 Seconds. The reference range was not used to int erpret this result as normal/abnormal . Lab Interpretation (test Abnormal code = 24169-8) [facility] WITH [id number] 06:45:45 Test Item Value Reference Range Interpretation [...] RDW-SD (test code = 49.1 fL 38.5-51.6 39837-1) RDW-CV (test code = 14.6 % 12.1-15.4 788-0) PLT (test code = See_Comment [Automated 777-3) message] The system which generated this result transmit josh reference range : 150 - 328 10*3/ ?L. The reference range was not u sed to interpret th is result as normal/abnormal . MPV (test code = 10.0 fL 9.8-13.0 00824-8) NRBC/100 WBC (test See_Comment [Automat ed code = 4312518454) message] The system which generated this result transmit josh reference range : 0.0 - 10.0 /100 WBCs. The reference range was not used to interpret this result as normal/abnormal . NRBC x10^3 (test code See_Comment [Auto mated = 2029655101) message] The system which generated this result transmit josh reference range : 10*3/?L. The reference range was not used to interpret this result as normal/abnormal . GRAN MAT (NEUT) % 71.4 % (test code = 770-8) IMM GRAN % (test code 1.60 % = 1815229251) LYMPH % (test code = 20.8 % 736-9) MONO % (test code = 5.9 % 5905-5) EOS % (test code = 0.2 % 713-8) BASO % (test code = 0.1 % 706-2) GRAN MAT x10^3(ANC) 10.41 10*3/uL 1.99-6.95 H (test code = 9750430510) IMM GRAN x10^3 (test 0.24 10*3/uL 0.00-0.06 H code = 5002925690) LYMPH x10^3 (test code 3.04 10*3/uL 1.09-3.23 = 731-0) MONO x10^3 (test code 0.86 10*3/uL 0.36-1.02 = 742-7) EOS x10^3 (test code = 0.03 10*3/uL 0.06-0.53 L 711-2) BASO x10^3 (test code 0.01-0.09 = 704-7) Lab Interpretation Abnormal (test code = 42390-7) [facility] WITH [id number] 06:45:45 Test Item Value Reference Range Interpretation [...] RDW-SD (test code = 49.1 fL 38.5-51.6 64972-5) RDW-CV (test code = 14.6 % 12.1-15.4 788-0) PLT (test code = See_Comment [Automated 777-3) message] The system which generated this result transmit josh reference range : 150 - 328 10*3/ ?L. The reference range was not u sed to interpret th is result as normal/abnormal . MPV (test code = 10.0 fL 9.8-13.0 18613-3) NRBC/100 WBC (test See_Comment [Automat ed code = 2520332466) message] The system which generated this result transmit josh reference range : 0.0 - 10.0 /100 WBCs. The reference range was not used to interpret this result as normal/abnormal . NRBC x10^3 (test code See_Comment [Auto mated = 3871708908) message] The system which generated this result transmit josh reference range : 10*3/?L. The reference range was not used to interpret this result as normal/abnormal . GRAN MAT (NEUT) % 71.4 % (test code = 770-8) IMM GRAN % (test code 1.60 % = 4563675346) LYMPH % (test code = 20.8 % 736-9) MONO % (test code = 5.9 % 5905-5) EOS % (test code = 0.2 % 713-8) BASO % (test code = 0.1 % 706-2) GRAN MAT x10^3(ANC) 10.41 10*3/uL 1.99-6.95 H (test code = 7754560013) IMM GRAN x10^3 (test 0.24 10*3/uL 0.00-0.06 H code = 5894070905) LYMPH x10^3 (test code 3.04 10*3/uL 1.09-3.23 = 731-0) MONO x10^3 (test code 0.86 10*3/uL 0.36-1.02 = 742-7) EOS x10^3 (test code = 0.03 10*3/uL 0.06-0.53 L 711-2) BASO x10^3 (test code 0.01-0.09 = 704-7) Lab Interpretation Abnormal (test code = 67793-8) [facility] 03:38:07 Test Item Value Reference Range Interpretation Comments Height (test code = in 1215856526) Weight (test code = lbs 4613660527) Systolic BP (test code = mmHg 2271480472) Diastolic BP (test code mmHg = 0052776266) Heart Rate (test code = bpm 9136983668) BSA (test code = 2.06 m2 3369190407) MV valve area p 1/2 7.50 cm2 method (test code = 5236451216) MV dec slope (test code 1149.00 cm/s2 = 9166630539) MV P1/2t max carmita (test 114.40 cm/s code = 1419758255) MV Peak E Carmita (test code 114.8 cm/s = 0448996954) MV Prop V (test code = 34.90 cm/s 1432222087) Tapse (test code = 2.20 cm 1344167883) MV E/e' septal (test 10.3 cm/s code = 9925439685) LVOT peak carmita (test code 97.7 cm/s = 0418684069) LVOT mn grad (test code mmHg = 9859612564) AV LVOT peak gradient mmHg (test code = 0775862926) LVOT peak VTI (test code 13.1 cm = 0091892112) LV V1 mean (test code = 62.10 cm/s 8576040781) Aortic valve mean 72.2 cm/s velocity (test code = 9719968292) Ao peak carmita (test code = 108.6 cm/s 9209840199) Ao VTI (test code = 13.7 cm 3790871765) Ao max PG (test code = 4.70 mm[Hg] 2193933210) AV peak gradient (test mmHg code = 5955191487) AV mean gradient (test mmHg code = 2228534164) Aortic HR (test code = BPM 1915930093) LAV(MOD-sp2) (test code 56.20 mL = 0126128652) LVIDD (test code = 5.40 cm 7026998654) IVS (test code = 0.97 cm 7307933558) Interventricular Septum 0.97 cm Diastolic Thickness by 2D (test code = 2731233) LVPWD (test code = 0.90 cm 5342132064) PW (test code = 0.90 cm 0.6-1.5 3754100287) EF(Teich) (test code = 38.40 % 1515754465) LVIDS (test code = 4.40 cm 4441011323) FS (test code = 19 % 2262286057) EF - 2D (test code = 38.40 % 81116864) Radiology Study observation (narrative) (test code = 97901-0) JUAN (test code = JUAN) Formatting of [...] mL of Lumason ultrasound enhancing agent used. [facility] GLUCOSE (AUTOMATED)2022-02-16 01:08:44 Test Item Value Reference Range Interpretation Comments POCT GLU (test code = 8087218834) 167 mg/dL 70-110 H Lab Interpretation (test code = Abnormal 00487-3) [facility] GLUCOSE (AUTOMATED)2022-02-16 01:08:44 Test Item Value Reference Range Interpretation Comments POCT GLU (test code = 4905124422) 167 mg/dL 70-110 H Lab Interpretation (test code = Abnormal 77644-7) [facility] METABOLIC PANEL (NA, K, CL, CO2, GLUCOSE, BUN, CREATININE, CA)2022-02-16 00:36:49 Test Item Value Reference Range Interpretation Comments NA (test code = 128 mmol/L 135-145 L 7741228895) K (test code = 5.9 mmol/L 3.5-5.0 H Slight 6873089378) hemolysis CL (test code = 99 mmol/L 98-108 7671316931) CO2 TOTAL (test code 27 mmol/L 23-31 = 3351852993) AGAP (test code = 2-16 4323316670) BUN (test code = 60 mg/dL 7-23 H Slight 1400980692) hemolysis GLUCOSE (test code = 123 mg/dL 70-110 H 7166901189) CREATININE (test code 2.04 mg/dL 0.60-1.25 H = 0224308157) CALCIUM (test code = 8.2 mg/dL 8.6-10.6 L 5595907916) eGFR (test code = mL/min/1.73m2 8658709032) JUAN (test code = JUAN) Association of [...] tests). Lab Interpretation Abnormal (test code = 72674-4) [facility] METABOLIC PANEL (NA, K, CL, CO2, GLUCOSE, BUN, CREATININE, CA)2022-02-16 00:36:49 Test Item Value Reference Range Interpretation Comments NA (test code = 128 mmol/L 135-145 L 9505100917) K (test code = 5.9 mmol/L 3.5-5.0 H Slight 1474260484) hemolysis CL (test code = 99 mmol/L 98-108 8204338239) CO2 TOTAL (test code 27 mmol/L 23-31 = 9203478498) AGAP (test code = 2-16 4211164862) BUN (test code = 60 mg/dL 7-23 H Slight 5397624962) hemolysis GLUCOSE (test code = 123 mg/dL 70-110 H 8344588642) CREATININE (test code 2.04 mg/dL 0.60-1.25 H = 4414542717) CALCIUM (test code = 8.2 mg/dL 8.6-10.6 L 8545448321) eGFR (test code = mL/min/1.73m2 7256480113) JUAN (test code = JUAN) Association of [...] tests). Lab Interpretation Abnormal (test code = 26647-0) [facility] [id number] 00:35:33 Test Item Value Reference Interpretation Comments Range TROPONIN I (test 29.900 ng/mL See_Comment H [Automated code = 8970525181) message] The system which generated this result [...] biotin. Lab Interpretation Abnormal (test code = 51369-5) [facility] [id number] 00:35:33 Test Item Value Reference Interpretation Comments Range TROPONIN I (test 29.900 ng/mL See_Comment H [Automated code = 1466159010) message] The system which generated this result [...] biotin. Lab Interpretation Abnormal (test code = 31266-5) [facility] 00:23:52 Test Item Value Reference Range Interpretation Comments MAGNESIUM (test code = 2868009056) 2.3 mg/dL 1.7-2.4 Lab Interpretation (test code = Normal 68827-1) [facility] 00:23:52 Test Item Value Reference Range Interpretation Comments PHOSPHORUS (test code = 3536643595) 3.7 mg/dL 2.5-5.0 Lab Interpretation (test code = Normal 83177-9) [facility] 00:23:52 Test Item Value Reference Range Interpretation Comments MAGNESIUM (test code = 0714631004) 2.3 mg/dL 1.7-2.4 Lab Interpretation (test code = Normal 03606-9) [facility] 00:23:52 Test Item Value Reference Range Interpretation Comments PHOSPHORUS (test code = 3146635340) 3.7 mg/dL 2.5-5.0 Lab Interpretation (test code = Normal 75701-1) [facility] (for use with Heparin Infusion)2022-02-16 00:05:05 Test Item Value Reference Range Interpretation Comments APTT Patient (test code See_Comment H [Au tomated message] = 3173-2) The system [employer] generated this result transmitted ref erence range: 26 - 36 Seconds. The reference range was not used to int erpret this result as normal/abnormal . Lab Interpretation (test Abnormal code = 75893-9) [facility] (for use with Heparin Infusion)2022-02-16 00:05:05 Test Item Value Reference Range Interpretation Comments APTT Patient (test code See_Comment H [Au tomated message] = 3173-2) The system [employer] generated this result transmitted ref erence range: 26 - 36 Seconds. The reference range was not used to int erpret this result as normal/abnormal . Lab Interpretation (test Abnormal code = 24636-4) [facility] GLUCOSE (AUTOMATED)2022-02-15 23:08:37 Test Item Value Reference Range Interpretation Comments POCT GLU (test code = 4915813244) 110 mg/dL 70-110 Lab Interpretation (test code = Normal 14546-2) [facility] GLUCOSE (AUTOMATED)2022-02-15 23:08:37 Test Item Value Reference Range Interpretation Comments POCT GLU (test code = 9218479360) 110 mg/dL 70-110 Lab Interpretation (test code = Normal 37638-8) [facility] [id number] 17:40:19 Test Item Value Reference Interpretation Comments Range TROPONIN I (test 40.200 ng/mL See_Comment H [Automated code = 3652427598) message] The system which generated this result [...] biotin. Lab Interpretation Abnormal (test code = 32369-0) [facility] [id number] 17:40:19 Test Item Value Reference Interpretation Comments Range TROPONIN I (test 40.200 ng/mL See_Comment H [Automated code = 3170437789) message] The system which generated this result [...] biotin. Lab Interpretation Abnormal (test code = 28057-0) [facility] 17:33:19 Test Item Value Reference Range Interpretation Comments APTT Patient (test code = See_Comment [ Automated message] 3173-2) The system [employer] generated this result transmitted ref erence range: 26 - 36 Seconds. The re ference range was not u sed to interpret this result as normal/abnor mal. Lab Interpretation (test Normal code = 69178-6) [facility] 17:33:19 Test Item Value Reference Range Interpretation Comments APTT Patient (test code = See_Comment [ Automated message] 3173-2) The system [employer] generated this result transmitted ref erence range: 26 - 36 Seconds. The re ference range was not u sed to interpret this result as normal/abnor mal. Lab Interpretation (test Normal code = 23406-1) [facility] 17:28:41 Test Item Value Reference Range Interpretation Comments MAGNESIUM (test code = 9503377476) 2.4 mg/dL 1.7-2.4 Lab Interpretation (test code = Normal 83533-2) [facility] 17:28:41 Test Item Value Reference Range Interpretation Comments PHOSPHORUS (test code = 6884566345) 3.1 mg/dL 2.5-5.0 Lab Interpretation (test code = Normal 05046-1) [facility]:28[facility]41 Test Item Value Reference Range Interpretation Comments MAGNESIUM (test code = 1877314024) 2.4 mg/dL 1.7-2.4 Lab Interpretation (test code = Normal 05066-1) [facility] 17:28:41 Test Item Value Reference Range Interpretation Comments PHOSPHORUS (test code = 9279617433) 3.1 mg/dL 2.5-5.0 Lab Interpretation (test code = Normal 56017-2) [facility] (NA, K, CL, CO2, GLUCOSE, BUN, CREATININE, CA)2022-02-15 17:28:40 Test Item Value Reference Range Interpretation Comments NA (test code = 131 mmol/L 135-145 L 0214994408) K (test code = 4.4 mmol/L 3.5-5.0 2813346269) CL (test code = 100 mmol/L 98-108 6346746282) CO2 TOTAL (test code = 29 mmol/L 23-31 3009110516) AGAP (test code = 2-16 9644995797) BUN (test code = 56 mg/dL 7-23 H 0558532629) GLUCOSE (test code = 149 mg/dL 70-110 H 6688801327) CREATININE (test code = 1.93 mg/dL 0.60-1.25 H 0321008471) CALCIUM (test code = 8.4 mg/dL 8.6-10.6 L 8357560553) eGFR (test code = mL/min/1.73m2 2348788993) JUAN (test code = JUAN) Association of [...] tests). Lab Interpretation Abnormal (test code = 64251-2) [facility] (NA, K, CL, CO2, GLUCOSE, BUN, CREATININE, CA)2022-02-15 17:28:40 Test Item Value Reference Range Interpretation Comments NA (test code = 131 mmol/L 135-145 L 9515878759) K (test code = 4.4 mmol/L 3.5-5.0 5190868776) CL (test code = 100 mmol/L 98-108 8816527415) CO2 TOTAL (test code = 29 mmol/L 23-31 4795633668) AGAP (test code = 216 6122425039) BUN (test code = 56 mg/dL 7-23 H 0522196228) GLUCOSE (test code = 149 mg/dL 70-110 H 9225208694) CREATININE (test code = 1.93 mg/dL 0.60-1.25 H 4375226651) CALCIUM (test code = 8.4 mg/dL 8.6-10.6 L 4057971403) eGFR (test code = mL/min/1.73m2 5926893056) JUAN (test code = JUAN) Association of [...] tests). Lab Interpretation Abnormal (test code = 82272-2) [facility] GLUCOSE (AUTOMATED)2022-02-15 16:45:01 Test Item Value Reference Range Interpretation Comments POCT GLU (test code = 9423823795) 155 mg/dL 70-110 H Lab Interpretation (test code = Abnormal 93202-0) [facility]22-[facility]-15 16:45:01 Test Item Value Reference Range Interpretation Comments POCT GLU (test code = 0875090629) 155 mg/dL 70-110 H Lab Interpretation (test code = Abnormal 52949-4) [facility]2022-[facility] 15:22:46 Test Item Value Reference Interpretation Comments Range Procalcitonin (test 0.29 ng/mL See_Comment H [Automa josh code = 4311998428) message] The system which generated this result [...] lung abscess/empyema. For further information please refer to:[email or web address] Lab Interpretation Abnormal (test code = 26900-6) [facility]2022-[facility] 15:22:46 Test Item Value Reference Interpretation Comments Range Procalcitonin (test 0.29 ng/mL See_Comment H [Automa josh code = 4318982392) message] The system which generated this result [...] lung abscess/empyema. For further information please refer to:[email or web address] Lab Interpretation Abnormal (test code = 44264-1) [facility] GLUCOSE (AUTOMATED)2022-02-15 13:10:03 Test Item Value Reference Range Interpretation Comments POCT GLU (test code = 0537096691) 158 mg/dL 70-110 H Lab Interpretation (test code = Abnormal 66964-3) [facility] GLUCOSE (AUTOMATED)2022-02-15 13:10:03 Test Item Value Reference Range Interpretation Comments POCT GLU (test code = 8113274186) 158 mg/dL 70-110 H Lab Interpretation (test code = Abnormal 15909-1) [facility] [id number] 11:33:31 Test Item Value Reference Interpretation Comments Range TROPONIN I (test 44.100 ng/mL See_Comment H [Automated code = 9711128836) message] The system which generated this result [...] biotin. Lab Interpretation Abnormal (test code = 39665-3) [facility] [id number] 11:33:31 Test Item Value Reference Interpretation Comments Range TROPONIN I (test 44.100 ng/mL See_Comment H [Automated code = 6684595591) message] The system which generated this result [...] biotin. Lab Interpretation Abnormal (test code = 83248-7) [facility] WITHOUT [id number] 10:48:10 Test Item Value Reference Range Interpretation Comments WBC (test code = 6690-2) See_Comment H [A utomated message] The system [employer] generated this result transmit josh reference range : 4.20 - 10.70 10*3/?L. The reference range was not used to interpret this result as normal/abnormal . RBC (test code = 789-8) See_Comment L [Au tomated message] The system [employer] generated this result transmit josh reference range [...] 777-3) See_Comment [Au tomated message] The system [employer] generated this result transmit josh reference range : 150 - 328 10*3/?L. The reference range was not used to interpret this result as normal/abnormal . MPV (test code = 9.9 fL 9.8-13.0 61520-3) RDW-CV (test code = 14.6 % 12.1-15.4 788-0) RDW-SD (test code = 48.1 fL 38.5-51.6 44599-5) NRBC x10^3 (test code = See_Comment [Au tomated message] 0656563041) The system [employer] generated this result transmit josh reference range : 10*3/?L. The reference range was not used to interpret this result as normal/abnormal . NRBC/100 WBC (test code See_Comment [Au tomated message] = 6311322864) The system [facility] generated this result transmit josh reference range : 0.0 - 10.0 /100 WBC s. The reference r maxi was not used to interpret this result as normal/abnormal . IPF % (test code = 2977448059) Lab Interpretation (test Abnormal code = 62797-5) [facility] WITHOUT [id number] 10:48:10 Test Item Value Reference Range Interpretation Comments WBC (test code = 6690-2) See_Comment H [A utomated message] The system [employer] generated this result transmit josh reference range : 4.20 - 10.70 10*3/?L. The reference range was not used to interpret this result as normal/abnormal . RBC (test code = 789-8) See_Comment L [Au tomated message] The system [employer] generated this result transmit josh reference range [...] 777-3) See_Comment [Au tomated message] The system [employer] generated this result transmit josh reference range : 150 - 328 10*3/?L. The reference range was not used to interpret this result as normal/abnormal . MPV (test code = 9.9 fL 9.8-13.0 32471-9) RDW-CV (test code = 14.6 % 12.1-15.4 788-0) RDW-SD (test code = 48.1 fL 38.5-51.6 13796-8) NRBC x10^3 (test code = See_Comment [Au tomated message] 8696651751) The system [employer] generated this result transmit josh reference range : 10*3/?L. The reference range was not used to interpret this result as normal/abnormal . NRBC/100 WBC (test code See_Comment [Au tomated message] = 3377978042) The system [employer] generated this result transmit josh reference range : 0.0 - 10.0 /100 WBC s. The reference r maxi was not used to interpret this result as normal/abnormal . IPF % (test code = 3439402386) Lab Interpretation (test Abnormal code = 08085-6) [facility] 10:42:52 Test Item Value Reference Range Interpretation Comments MAGNESIUM (test code = 4838562593) 2.5 mg/dL 1.7-2.4 H Lab Interpretation (test code = Abnormal 56974-6) [facility] METABOLIC PANEL (NA, K, CL, CO2, GLUCOSE, BUN, CREATININE, CA)2022-02-15 10:42:52 Test Item Value Reference Range Interpretation Comments NA (test code = 132 mmol/L 135-145 L 1611818423) K (test code = 4.5 mmol/L 3.5-5.0 8273553421) CL (test code = 100 mmol/L 98-108 6246707222) CO2 TOTAL (test code = 29 mmol/L 23-31 6177478147) AGAP (test code = 2-16 1181193787) BUN (test code = 55 mg/dL 7-23 H 6640075033) GLUCOSE (test code = 171 mg/dL 70-110 H 5259540740) CREATININE (test code = 2.00 mg/dL 0.60-1.25 H 5948758990) CALCIUM (test code = 8.4 mg/dL 8.6-10.6 L 3860690728) eGFR (test code = mL/min/1.73m2 4144152674) JUAN (test code = JUAN) Association of [...] tests). Lab Interpretation Abnormal (test code = 17594-7) [facility] 10:42:52 Test Item Value Reference Range Interpretation Comments MAGNESIUM (test code = 5044453903) 2.5 mg/dL 1.7-2.4 H Lab Interpretation (test code = Abnormal 17080-6) [facility] (NA, K, CL, CO2, GLUCOSE, BUN, CREATININE, CA)2022-02-15 10:42:52 Test Item Value Reference Range Interpretation Comments NA (test code = 132 mmol/L 135-145 L 4036291014) K (test code = 4.5 mmol/L 3.5-5.0 5464437679) CL (test code = 100 mmol/L 98-108 6725576809) CO2 TOTAL (test code = 29 mmol/L 23-31 6098059037) AGAP (test code = 2-16 0414315859) BUN (test code = 55 mg/dL 7-23 H 2533060224) GLUCOSE (test code = 171 mg/dL 70-110 H 8318426178) CREATININE (test code = 2.00 mg/dL 0.60-1.25 H 8723823882) CALCIUM (test code = 8.4 mg/dL 8.6-10.6 L 0707768691) eGFR (test code = mL/min/1.73m2 3221607945) JUAN (test code = JUAN) Association of [...] tests). Lab Interpretation Abnormal (test code = 97638-5) [facility] [id number] 10:39:08 Test Item Value Reference Range Interpretation Comments APTT Patient (test code See_Comment H [Au tomated message] = 3173-2) The system [employer] generated this result transmitted ref erence range: 26 - 36 Seconds. The reference range was not used to int erpret this result as normal/abnormal . Lab Interpretation (test Abnormal code = 19058-1) [facility]RM[facility] [id number] 10:39:08 Test Item Value Reference Range Interpretation Comments APTT Patient (test code See_Comment H [Au tomated message] = 3173-2) The system [employer] generated this result transmitted ref erence range: 26 - 36 Seconds. The reference range was not used to int erpret this result as normal/abnormal . Lab Interpretation (test Abnormal code = 63589-8) [facility] THRMPLAS [id number] 04:26:48 Test Item Value Reference Range Interpretation Comments APTT Patient (test code See_Comment H [Au tomated message] = 3173-2) The system [employer] generated this result transmitted ref erence range: 26 - 36 Seconds. The reference range was not used to int erpret this result as normal/abnormal . Lab Interpretation (test Abnormal code = 75477-6) [facility] THRM[facility]AS [id number] 04:26:48 Test Item Value Reference Range Interpretation Comments APTT Patient (test code See_Comment H [Au tomated message] = 3173-2) The system [employer] generated this result transmitted ref erence range: 26 - 36 Seconds. The reference range was not used to int erpret this result as normal/abnormal . Lab Interpretation (test Abnormal code = 58075-8) [facility] GLUCOSE (AUTOMATED)2022-02-15 02:38:04 Test Item Value Reference Range Interpretation Comments POCT GLU (test code = 5590902045) 170 mg/dL 70-110 H Lab Interpretation (test code = Abnormal 53716-6) [facility] GLUCOSE (AUTOMATED)2022-02-15 02:38:04 Test Item Value Reference Range Interpretation Comments POCT GLU (test code = 7386658757) 170 mg/dL 70-110 H Lab Interpretation (test code = Abnormal 79378-1) [facility] [id number] 01:26:24 Test Item Value Reference Interpretation Comments Range TROPONIN I (test 13.300 ng/mL See_Comment H [Automated code = 6201790985) message] The system which generated this result [...] biotin. Lab Interpretation Abnormal (test code = 30830-5) [id number] 01:26:24 Test Item Value Reference Interpretation Comments Range TROPONIN I (test 13.300 ng/mL See_Comment H [Automated code = 8675577316) message] The system which generated this result [...] biotin. Lab Interpretation Abnormal (test code = 12147-3) [facility] (NA, K, CL, CO2, GLUCOSE, BUN, CREATININE, CA)2022-02-15 01:14:22 Test Item Value Reference Range Interpretation Comments NA (test code = 134 mmol/L 135-145 L 9538277963) K (test code = 4.6 mmol/L 3.5-5.0 4339173040) CL (test code = 99 mmol/L 98-108 1201341716) CO2 TOTAL (test code = 26 mmol/L 23-31 4924785872) AGAP (test code = 2-16 7401869992) BUN (test code = 54 mg/dL 7-23 H 7245208140) GLUCOSE (test code = 190 mg/dL 70-110 H 3123671486) CREATININE (test code = 2.13 mg/dL 0.60-1.25 H 0043890685) CALCIUM (test code = 8.8 mg/dL 8.6-10.6 2597515599) eGFR (test code = mL/min/1.73m2 6912903407) JUAN (test code = JUAN) Association of [...] tests). Lab Interpretation Abnormal (test code = 47838-5) [facility] METABOLIC PANEL (NA, K, CL, CO2, GLUCOSE, BUN, CREATININE, CA)2022-02-15 01:14:22 Test Item Value Reference Range Interpretation Comments NA (test code = 134 mmol/L 135-145 L 9971488055) K (test code = 4.6 mmol/L 3.5-5.0 5523227619) CL (test code = 99 mmol/L 98-108 2434834283) CO2 TOTAL (test code = 26 mmol/L 23-31 2664580174) AGAP (test code = 2-16 7007107878) BUN (test code = 54 mg/dL 7-23 H 6883509952) GLUCOSE (test code = 190 mg/dL 70-110 H 6622382038) CREATININE (test code = 2.13 mg/dL 0.60-1.25 H 5815736902) CALCIUM (test code = 8.8 mg/dL 8.6-10.6 4953730529) eGFR (test code = mL/min/1.73m2 8957332154) JUAN (test code = JUAN) Association of [...] tests). Lab Interpretation Abnormal (test code = 09623-7) [facility] Whole [id number] 00:58:27 Test Item Value Reference Range Interpretation Comments LACTIC ACID (test code = 4.00 mmol/L 0.50-2.20 H 1253719302) Lab Interpretation (test code = Abnormal 82226-8) [facility] Whole [id number] 00:58:27 Test Item Value Reference Range Interpretation Comments LACTIC ACID (test code = 4.00 mmol/L 0.50-2.20 H 4381506117) Lab Interpretation (test code = Abnormal 79678-6) [facility]BLO[facility] [id number] 07:00:32 Test Item Value Reference Range Interpretation Comments CULTURE (BEAKER) (test No growth in 5 days code = 1095) BLOOD [id number] 07:00:32 Test Item Value Reference Range Interpretation Comments CULTURE (BEAKER) (test No growth in 5 days code = 1095) POC-Glucose [id number] 16:01:13 Test Item Value Reference Range Interpretation Comments POC-Glucose Meter (test 136 mg/dL 70-110 H : [facility]38[facility] [place] [address]: Furnace [employer]i [place] ID = [id number] for Castaneda, Martina cherry Lab Interpretation (test Abnormal code = 35154-1) [facility] [id number] 16:01:13 Test Item Value Reference Range Interpretation Comments POC-Glucose Meter (test 136 mg/dL 70-110 H : TE STED AT SLSL code = 1538) [facility] [place] 790988: Furnace E[employer]ctor/Techni [place] ID = [id number] for Castaneda, Martina cherry Lab Interpretation (test Abnormal code = 89836-6) [facility] [id number] 16:01:13 Test Item Value Reference Range Interpretation Comments POC-Glucose Meter (test 136 mg/dL 70-110 H : TE STED AT [facility]SL code = 1538) [facility] [place] 7[address]88: Furnace E[employer]ctor/Techni [place] ID = [id number] for Castaneda, Martina cherry Lab Interpretation (test Abnormal code = 18221-4) [facility] [id number] 16:01:13 Test Item Value Reference Range Interpretation Comments POC-Glucose Meter (test 136 mg/dL 70-110 H : TE STED AT SLSL code = 1538) [address] [place] [address]88: Furnace E[employer]ctor/Techni [place] ID = [id number] for Castaneda, Martina cherry Lab Interpretation (test Abnormal code = 13511-5) [facility] [id number] 16:01:13 Test Item Value Reference Range Interpretation Comments POC-Glucose Meter (test 136 mg/dL 70-110 H : TE STED AT [facility] code = 1538) [facility] [place] [address]88: Furnace E[employer]ctor/Techni [place] ID = [id number] for Castaneda, Martina cherry Lab Interpretation (test Abnormal code = 75113-9) [facility] [id number] 16:01:13 Test Item Value Reference Range Interpretation Comments POC-Glucose Meter (test 136 mg/dL 70-110 H : TE STED AT [facility]SL code = 1538) [facility] [place] [address]88: Furnace [employer]/Techni [place] ID = [id number] for Castaneda, Martina cherry Lab Interpretation (test Abnormal code = 11675-9) [facility] [id number] 16:01:13 Test Item Value Reference Range Interpretation Comments POC-GLUCOSE METER 136 mg/dL 70-110 H : TESTED A T [facility] 1317 (BEAKER) (test code [address] [facility], = 1538) [place] [id number]: Furnace Erector/Techni brooklyn ID = [id number] for Cerv antes, Crystal POCT-GLUCOSE [id number] 11:30:14 Test Item Value Reference Range Interpretation Comments POC-GLUCOSE METER 112 mg/dL 70-110 H : TESTED A T [facility] 1317 (BEAKER) (test code [address] [facility], = 1538) [place] [address]: Furnace Erector/Techni brooklyn ID = [id number] for Cerv antes, Crystal POCT-GLUCOSE [id number] 06:45:43 Test Item Value Reference Range Interpretation Comments POC-GLUCOSE METER 150 mg/dL 70-110 H : TESTED A T [facility] 1317 (BEAKER) (test code [address], = 1538) [facility] [place] [address]: Furnace Erector/Techni brooklyn ID = [id number] for Taina Poe [id number] 06:05:04 Test Item Value Reference Range Interpretation Comments MAGNESIUM (BEAKER) (test code = 2.2 mg/dL 1.5-3.0 627) Furnace Erector ID - [id number] ID - [id number] ID - FNNRIOOLX124Kcjxwmkm ID - [id number] METABOLIC [id number] 06:04:06 Test Item Value Reference Range Interpretation [...] 1092) DATA TO CALCULA TE ESTIMATED GFR. Furnace Erector ID - [id number] ID - [id number] ID - IFVNJNVUP161Rbfhigwv ID - FTMZAALCN956Yckmqlwr ID - AAYBRHYKN223Uuccdahd ID - NMKHPRNBB361Igopcusy ID - LAIDMGTTJ727Snxprtpp ID - FNPMDQMKT996Iqvkqfrf ID - FVTQLKTCM401Xxrnmarz ID - [id number] W/PLT COUNT & AUTO DIFFERENTIAL 2021-11-12 05:53:41 [...] PERCENT (BEAKER) (test code = 2801) POCT-GLUCOSE [id number] 21:50:33 Test Item Value Reference Range Interpretation Comments POC-GLUCOSE METER 173 mg/dL 70-110 H : TESTED A T [facility] 1317 (BEAKER) (test code [address], = 1538) [place] [address]: Furnace Erector/Techni brooklyn ID = [id number] for Taina Poe POCT-GLUCOSE [id number] 16:45:23 Test Item Value Reference Range Interpretation Comments POC-GLUCOSE METER 134 mg/dL 70-110 H : TESTED A T [facility] 1317 (BEAKER) (test code [address] [facility], = 1538) [place] [address]: Furnace Erector/Techni brooklyn ID = [id number] for Dapr emont, Heather POCT-GLUCOSE [id number] 11:45:21 Test Item Value Reference Range Interpretation Comments POC-GLUCOSE METER 125 mg/dL 70-110 H : TESTED A T [facility] 1317 (BEAKER) (test code [address] [facility], = 1538) [place] [address]: Furnace Erector/Techni brooklyn ID = [id number] for Dapr emont, Heather Sputum Culture + Gram [id number] 08:54:21 Test Item Value Reference Range Interpretation Comments Result (test code = 4+ Normal respiratory 6463-4) luis eduardo present Gram Stain Result 3+ Mixed luis eduardo (test code = 1123) [facility] [id number] 08:54:21 Test Item Value Reference Range Interpretation Comments Result (test code = 4+ Normal respiratory 6463-4) luis eduardo present Gram Stain Result 3+ Mixed luis eduardo (test code = 1123) [facility] Gram [id number] 08:54:21 Test Item Value Reference Range Interpretation Comments Result (test code = 4+ Normal respiratory 6463-4) luis eduardo present Gram Stain Result 3+ Mixed luis eduardo (test code = 1123) [facility] Gram [id number] 08:54:21 Test Item Value Reference Range Interpretation Comments Result (test code = 4+ Normal respiratory 6463-4) luis eduardo present Gram Stain Result 3+ Mixed luis eduardo (test code = 1123) [facility] Gram [id number] 08:54:21 Test Item Value Reference Range Interpretation Comments Result (test code = 4+ Normal respiratory 6463-4) luis eduardo present Gram Stain Result 3+ Mixed luis eduardo (test code = 1123) [facility] Gram [id number] 08:54:21 Test Item Value Reference Range Interpretation Comments Result (test code = 4+ Normal respiratory 6463-4) luis eduardo present Gram Stain Result 3+ Mixed luis eduardo (test code = 1123) [facility] + GRAM [id number] 08:54:21 Test Item Value Reference Range Interpretation Comments CULTURE (BEAKER) 4+ Normal respiratory (test code = 1095) luis eduardo present GRAM STAIN RESULT 1+ White blood cells (BEAKER) (test code = seen 1123) GRAM STAIN RESULT 1+ epithelial cells (BEAKER) (test code = 11589) GRAM STAIN RESULT 3+ Mixed luis eduardo (BEAKER) (test code = 18887) RAD, CHEST, 1 VIEW, NON [id number] 07:33:00Reason for exam:->[facility]NA [facility] : 1950 Sex: MFINAL REPORT CHEST AP PORTABLE SEMIERECT Comparison exam: 11/09/2021 History provided: Pneumonia Heart size normal. Chronic pleural thickening at the right base. Lungs free of acute disease and vascularity normal. Signed: Carlos Navarroeport Verified Date/Time: 11/11/2021 07:33:28 Reading Location: [facility] Diagnostic Imaging Reading Room [place] [address] 1.310.12 POCT-GLUCOSE [id number] 06:54:14 Test Item Value Reference Range Interpretation Comments POC-GLUCOSE METER 133 mg/dL 70-110 H : TESTED A T [facility] 1317 (BEAKER) (test code [address], = 1538) [facility] [address] 478: Furnace Erector/Techni brooklyn ID = [id number] for Taina Poe [id number] 04:53:42 Test Item Value Reference Range Interpretation Comments MAGNESIUM (BEAKER) (test code = 2.3 mg/dL 1.5-3.0 627) Furnace Erector ID - [id number] ID - lklg41Nkljkhuf ID - [id number] ID - [id number] BASIC METABOLIC [id number] 04:52:53 Test Item Value Reference Range Interpretation [...] 1092) DATA TO CALCULA TE ESTIMATED GFR. Furnace Erector ID - [id number] ID - qiqf85Rsdpyadr ID - khwi73Julzmfyi ID - vnar12Zemdblts ID - qdyy28Wpeerjoq ID - gpyw63Sepmyuih ID - fucp60Nsnxyvhr ID - cgdw23Tprfxtnm ID - wmkr89Uaxvogzc ID - [id number] W/PLT COUNT & AUTO [id number] 04:28:30 Test Item Value Reference Range Interpretation [...] 2D Echo W/Doppler(CW/PW/Color)2021-11-11 00:37:05Ejection [facility]Do[facility](CW/PW/Color)2021-11-11 00:37:05Ejection FractionSLE [facility]CHO [facility] W/Doppler(CW/PW/Color) 2021-11-11 00:37:05Ejection FractionSLEH ECHO [facility] W/Doppler(CW/PW/Color)2021-11-11 00:37:05Ejection FractionSLE ECHO [facility] W/Doppler(CW/PW/Color)2021-11-11 00:37:05Ejection FractionSLE [facility]CHO [facility] W/Doppler(CW/PW/Color) 2021-11-11 00:37:05Ejection FractionSLE [facility]CHO [facility] [id number] 20:59:54 Test Item Value Reference Range Interpretation Comments POC-GLUCOSE METER 148 mg/dL 70-110 H : TESTED A T [facility] 1317 (BEAKER) (test code [address], = 1538) [place] [address]: Furnace Erector/Techni brooklyn ID = [id number] for Taina Poe POCT-GLUCOSE [id number] 15:51:00 Test Item Value Reference Range Interpretation Comments POC-GLUCOSE METER 156 mg/dL 70-110 H : TESTED A T [facility] [address]17 (BEAKER) (test code [address], = 1538) [place] [address]: Furnace Erector/Techni brooklyn ID = [id number] for Cerv antes, Crystal POCT-GLUCOSE [id number] 11:44:26 Test Item Value Reference Range Interpretation Comments POC-GLUCOSE METER 139 mg/dL 70-110 H : TESTED A T [facility] 1317 (BEAKER) (test code [address], = 1538) [place] [address]: Furnace Erector/Techni brooklyn ID = [id number] for Shazia Scott BASIC METABOLIC [id number] 07:34:29 Test Item Value Reference Range Interpretation [...] 1092) DATA TO CALCULA TE ESTIMATED GFR. Furnace Erector ID - DSENSONOperator ID - DSENSONOperator ID [...] (test code = 18 U/L 5-50 347) Furnace Erector ID - DSENSONOperator ID - DSENSONOperator ID - DSENSONOperator ID - DSENSONOperator ID - DSENSONOperator ID - DSENSONOperator ID - DSENSONOperator ID - DSENSONOperator ID - DSENSONOperator ID - DSENSONCBC W/PLT COUNT & AUTO [id number] 07:19:24 Test Item Value Reference Range Interpretation [...] PERCENT (AKER) (test code = 2801) POCT-GLUCOSE [id number] 07:05:35 Test Item Value Reference Range Interpretation Comments POC-GLUCOSE METER 129 mg/dL 70-110 H : TESTED A T [facility] 1317 [facility] (test code [facility], = 1538) [place] [address]: Furnace Erector/Techni brooklyn ID = [id number] for Anayeli ety, Ruth POCT-GLUCOSE [id number] 22:17:06 Test Item Value Reference Range Interpretation Comments POC-GLUCOSE METER 135 mg/dL 70-110 H : TESTED A T [facility] 1317 (BANNER) (test code [facility], = 1538) [place] [address]: Furnace Erector/Techni brooklyn ID = [id number] for Anayeli ety, Ruth POCT-GLUCOSE [id number] 16:21:48 Test Item Value Reference Range Interpretation Comments POC-GLUCOSE METER 178 mg/dL 70-110 H : Notified RN/MD: TESTED (BANNER) (test code AT [facility] [address] = 1538) [place] [address]: Furnace Erector/Techni brooklyn ID = [id number] for Alee Calderon HEPATITIS PANEL, [id number] 14:58:49 Test Item Value Reference Range Interpretation Comments HEPATITIS A IGM ANTIBODY (BEAKER) Nonreactive Nonreactive (test code = 498) HEPATITIS B CORE IGM ANTIBODY Nonreactive Nonreactive (BEAKER) (test code = 645) HEPATITIS C ANTIBODY (BEAKER) Nonreactive Nonreactive (test code = 367) HEPATITIS B SURFACE ANTIGEN (2) Nonreactive Nonreactive (BEAKER) (test code = 2585) Furnace Erector ID - DBOperator ID - DBPOCT-GLUCOSE [id number] 12:30:38 Test Item Value Reference Range Interpretation Comments POC-GLUCOSE METER 184 mg/dL 70-110 H : Notified RN/MD: TESTED (MARLENA) (test code AT [facility] [address] = 1538) [place] [address]: Furnace Erector/Techni brooklyn ID = [id number] for Alec Bush VENOUS DOPPLER LEGS, [id number] 10:54:00Reason for exam:->DVT [facility] : 1950 Sex: [...] MDReport Verified Date/Time: 11/09/2021 10:54:12 Reading Location: [facility] Radiology Reading Room RAD, CHEST, 1 VIEW, NON [id number] 09:00:00 Reason for exam:->PNAShould this be performed at the bedside?->Yes [facility] : 1950 Sex: [...] ThackerMDReport Verified Date/Time: 11/09/2021 09:00:23 Reading Location: [facility] Radiology Reading Room POCT-GLUCOSE [id number] 07:33:54 Test Item Value Reference Range Interpretation Comments POC-GLUCOSE METER 156 mg/dL 70-110 H : Notified RN/MD: TESTED (BANNER) (test code AT [facility] [address] = 1538) [facility] [address]: Furnace Erector/Techni brooklyn ID = [id number] for Alec Bush [id number] 05:00:02 Test Item Value Reference Range Interpretation Comments PARTIAL THROMBOPLASTIN 111.6 seconds 23.0-35.0 H Berna l Information TIME (BANNER) (test (Auto Ou tput) code = 760) HIV-1 ANTIGEN WITH HIV-1/2 [id number] 04:53:13 Test Item Value Reference Range Interpretation Comments HIV-1 ANTIGEN WITH HIV 1\\T\\2 Nonreactive Nonreactive ANTIBODY (2) [facility] (test code = 2586) Furnace Erector ID - [id number] METABOLIC [id number] 04:38:36 Test Item Value Reference Range Interpretation [...] 1092) DATA TO CALCULA TE ESTIMATED GFR. Furnace Erector ID - [id number] ID - JLRJYHERS595Sljbskot ID - BBOFKZQBN114Swxmcohy ID - RUGVGKRME472Pydqfcmd ID - HEWQWSNVX848Zfpxodhf ID - HJYSXVRBW634Hkffltcc ID - LILDJJQNM657Wbbvhjiz ID - QBDXEWNAY345Iiaamcgp ID - UONRKNLZS564Fhalhbzi ID - KRMGXTFAW193VXXMYMH FUNCTION [id number] 04:36:24 Test Item Value Reference Range Interpretation [...] (test code = 22 U/L 5-50 347) Furnace Erector ID - [id number] ID - KGYHLYVLA754Ghjkssuf ID - LVXWIOYIO361Bxplkquw ID - PQAFHUWHX137Kisuamhc ID - QWDQWRNFZ450Daaeputs ID - NOHUJWORY863Acxikdyf ID - HSPGGZDEQ991Rqmncnhs ID - XDKHZSXKY015Kclpyqog ID - KWDEKGOSK200Hdkpaekz ID - ANDSITMDC570BRNNCTKZVY [id number] 04:30:27 Test Item Value Reference Range Interpretation Comments HEMOGLOBIN A1C (BEAKER) (test code = 5.8 % 4.3-6.1 368) Furnace Erector ID - [id number] W/PLT COUNT & AUTO [id number] 04:17:15 Test Item Value Reference Range Interpretation [...] PERCENT (BEAKER) (test code = 2801) TROPONIN [id number] 01:16:05 Test Item Value Reference Range Interpretation [...] failure, acidosis, acute neurological disease, and persistent tachyarrhythmia.Furnace Erector ID - [id number]-CRMKHOL [id number] 20:56:12 Test Item Value Reference Range Interpretation Comments POC-GLUCOSE METER 169 mg/dL 70-110 H : Notified RN/MD: TESTED (BEAKER) (test code AT [address] = 1538) [facility] [address]: Furnace Erector/Techni brooklyn ID = [id number] for Dottie Collins [id number] 20:43:27 Test Item Value Reference Range Interpretation Comments PARTIAL THROMBOPLASTIN 43.3 seconds 23.0-35.0 H Final Information TIME (BEAKER) (test (Auto Ou tput) code = 760) [id number] 17:13:58 Test Item Value Reference Range Interpretation Comments GLUCOSE RANDOM (BEAKER) (test code 247 mg/dL 70-110 H = 652) Furnace Erector ID - HENRRYTROPOROMAINN [id number] 17:03:16 Test Item Value Reference Range Interpretation [...] failure, acidosis, acute neurological disease, and persistent tachyarrhythmia.Furnace Erector ID - DSENSONLegionella antigen, [id number] 14:05:17 Test Item Value Reference Range Interpretation Comments Legionella Urine Negative - see Negative for L. Antigen (test code comment pneumophi la = 29625-8) serogroup 1 ant igen, suggesting no r ecent or current infe ction with this serog roup. Legionellosis c annot be ruled out si nce other serogroup s and species may cau se disease. [facility], [id number] 14:05:17 Test Item Value Reference Range Interpretation Comments Legionella Urine Negative - see Negative for L. Antigen (test code comment pneumophi la = 49046-7) serogroup 1 ant igen, suggesting no r ecent or current infe ction with this serog roup. Legionellosis c annot be ruled out si nce other serogroup s and species may cau se disease. [facility] CenterLegionella antigen, [id number] 14:05:17 Test Item Value Reference Range Interpretation Comments Legionella Urine Negative - see Negative for L. Antigen (test code comment pneumophi la = 50307-3) serogroup 1 ant igen, suggesting no r ecent or current infe ction with this serog roup. Legionellosis c annot be ruled out si nce other serogroup s and species may cau se disease. [facility] HospitalLegionella antigen, [id number] 14:05:17 Test Item Value Reference Range Interpretation Comments Legionella Urine Negative - see Negative for L. Antigen (test code comment pneumophi la = 87112-5) serogroup 1 ant igen, suggesting no r ecent or current infe ction with this serog roup. Legionellosis c annot be ruled out si nce other serogroup s and species may cau se disease. [facility] HospitalLegionella antigen, [id number] 14:05:17 Test Item Value Reference Range Interpretation Comments Legionella Urine Negative - see Negative for L. Antigen (test code comment pneumophi la = 16058-0) serogroup 1 ant igen, suggesting no r ecent or current infe ction with this serog roup. Legionellosis c annot be ruled out si nce other serogroup s and species may cau se disease. [facility] HospitalLegionella antigen, [id number] 14:05:17 Test Item Value Reference Range Interpretation Comments Legionella Urine Negative - see Negative for L. Antigen (test code comment pneumophi la = 67007-3) serogroup 1 ant igen, suggesting no r ecent or current infe ction with this serog roup. Legionellosis c annot be ruled out si nce other serogroup s and species may cau se disease. [facility] HospitalLEGIONELLA ANTIGEN, [id number] 14:05:17 Test Item Value Reference Range Interpretation Comments L. PNEUMOPHILA Negative - see Negative fo r L. SEROGP 1 UR AG comment pneumophila (BEAKER) (test code serogrou p 1 antigen, = 1156) suggesting no r ecent or current infe ction with this serog roup. Legionellosis c annot be ruled out si nce other serogroup s and species may cau se disease. U/S, RENAL, [id number] 14:05:00Reason for exam:->elevated creatine [facility] : 1950 Sex: [...] normal renal ultrasound. No hydronephrosis Signed: Cindy [facility] Verified Date/Time: 11/08/2021 14:05:00 Reading Location: [facility] C013Y CT Body Reading Room Strep pneumoniae [id number] 14:04:46 Test Item Value Reference Range Interpretation Comments Strep pneumoniae Presumptive negative Presumptive Antigen (test code = [place] [address]-9) pneumonia - see pneumococcal comment pneumonia - [...] test. Lab Interpretation Normal (test code = 58992-6) [facility] [id number] 14:04:46 Test Item Value Reference Range Interpretation Comments Strep pneumoniae Presumptive negative Presumptive Antigen (test code = [place] [address]-7) pneumonia - see pneumococcal comment pneumonia - [...] test. Lab Interpretation Normal (test code = 48877-5) [facility] [id number] 14:04:46 Test Item Value Reference Range Interpretation Comments Strep pneumoniae Presumptive negative Presumptive Antigen (test code = [place] [address]-8) pneumonia - see pneumococcal comment pneumonia - [...] test. Lab Interpretation Normal (test code = 11958-0) [facility] [id number] 14:04:46 Test Item Value Reference Range Interpretation Comments Strep pneumoniae Presumptive negative Presumptive Antigen (test code = [place] [address]-6) pneumonia - see pneumococcal comment pneumonia - [...] test. Lab Interpretation Normal (test code = 78941-4) [facility] [id number] 14:04:46 Test Item Value Reference Range Interpretation Comments Strep pneumoniae Presumptive negative Presumptive Antigen (test code = [place] [address]-7) pneumonia - see pneumococcal comment pneumonia - [...] test. Lab Interpretation Normal (test code = 63798-0) [facility] [id number] 14:04:46 Test Item Value Reference Range Interpretation Comments Strep pneumoniae Presumptive negative Presumptive Antigen (test code = [place] [address]-4) pneumonia - see pneumococcal comment pneumonia - [...] test. Lab Interpretation Normal (test code = 12288-0) [facility] HospitalTREP PNEUMONIAE [id number] 14:04:46 Test Item Value Reference Range Interpretation [...] the detection limit of the test. TROPONIN [id number] 12:03:41 Test Item Value Reference Range Interpretation [...] failure, acidosis, acute neurological disease, and persistent tachyarrhythmia.Furnace Erector ID - DSENSONBASIC METABOLIC [id number] 11:54:31 Test Item Value Reference Range Interpretation [...] 1092) DATA TO CALCULA TE ESTIMATED GFR. Furnace Erector ID - DSENSONOperator ID - DSENSONOperator ID - DSENSONOperator ID - DSENSONOperator ID - DSENSONOperator ID - DSENSONOperator ID - DSENSONOperator ID - DSENSONOperator ID - DSENSONOperator ID - DSENSONOperator ID - DSENSONOperator ID - DSENSONOperator ID - [id number] 11:45:04 Test Item Value Reference Range Interpretation Comments PARTIAL THROMBOPLASTIN 44.4 seconds 23.0-35.0 H Final Information TIME (MARLENA) (test (Auto Ou tput) code = 760) POCT-GLUCOSE [id number] 11:43:30 Test Item Value Reference Range Interpretation Comments POC-GLUCOSE METER 141 mg/dL 70-110 H : Notified RN/MD: TESTED (BEVINICIUS) (test code AT [facility] [address] = 1538) [facility] [address]: Furnace Erector/Techni [place] ID = [id number] for Alec Bush PUL PERF IMAGING, [id number] 09:49:00Unlisted Reason for Exam - Click Yes and Enter Reason Below->No [facility] : 1950 Sex: MFINAL REPORT PROCEDURE: LUNG SCAN - perfusion only CPT CODE: 24060 INDICATION: Elevated D-dimer PROTOCOL: 5.8 mCi of [...] Verified Date/Time: 11/08/2021 09:49:42 CT, CHEST, WITHOUT [id number] 09:47:00Unlisted Reason for Exam - Click Yes and Enter Reason Below->No [facility]ARRION : 1950 [...] but cannot entirely exclude superimposed infection. Signed: Sarah, Carly MDReport Verified Date /Time: 11/08/2021 09:47:14 RAD, CHEST, 1 VIEW, NON [id number] 08:47:00Reason for exam:->ETT placementShould this be performed at the bedside?->Yes [facility] : 1950 Sex: MFINAL REPORT [...] Ou tput) code = 760) LACTIC ACID, [id number] 05:34:16 Test Item Value Reference Range Interpretation Comments LACTATE BLOOD 1.89 mmol/L See_Comment [Automated me ssage] VENOUS (2) (BEAKER) The syst em which (test code = 2872) generated this result transmitted ref erence range: 0.50-<2. 00. The reference range was not used to interpr et this result as normal/abnormal . Furnace Erector ID - LITOOperator ID - LITOOperator ID - LITOOperator ID - ROSALBA [id number] 05:31:10 Test Item Value Reference Range Interpretation Comments PROCALCITONIN (BEAKER) (test code 0.15 ng/mL <0.05 H = 3036) SEPSIS RISK (ng/mL)Low: 0.05-0.50Intermediate: 0.51-2.00High: >=2.01 Urinalysis with Microscopic If [id number] 05:13:27 Test Item Value Reference Range Interpretation Comments Color, UA (test code = 5778-6) Yellow Clarity, UA (test code = 5767-9) Clear Specific [place], UA (test code = 1.015 1.001-1.035 5811-5) pH, UA (test code = 5803-2) 5.0 5.0-8.0 Protein, UA (test code = 82008-6) Negative Negative Glucose, UA (test code = 365) Negative Negative Ketones, UA (test code = 2514-8) Negative Negative Bilirubin, UA (test code = 31733-7) Negative Negative Blood, UA (test code = 19215-1) Small Negative A Nitrite, UA (test code = 5802-4) Negative Negative Leukocytes, UA (test code = 5799-2) Negative Negative Urobilinogen, UA (test code = 0.2 mg/dL 0.2-1.0 00788-7) Specimen Source (test code = 2795) Lab Interpretation (test code = Abnormal 53195-4) [facility] with [facility]sc[facility] If [id number] 05:13:27 Test Item Value Reference Range Interpretation Comments Color, UA (test code = 5778-6) Yellow Clarity, UA (test code = 5767-9) Clear Specific [place], UA (test code = 1.015 1.001-1.035 5811-5) pH, UA (test code = 5803-2) 5.0 5.0-8.0 Protein, UA (test code = 52155-2) Negative Negative Glucose, UA (test code = 365) Negative Negative Ketones, UA (test code = 2514-8) Negative Negative Bilirubin, UA (test code = 25371-0) Negative Negative Blood, UA (test code = 54346-9) Small Negative A Nitrite, UA (test code = 5802-4) Negative Negative Leukocytes, UA (test code = 5799-2) Negative Negative Urobilinogen, UA (test code = 0.2 mg/dL 0.2-1.0 ) Specimen Source (test code = 2795) Lab Interpretation (test code = Abnormal 12118-3) [facility] Hospital[facility]inalysis with Microscopic If [id number] 05:13:27 Test Item Value Reference Range Interpretation Comments Color, UA (test code = 5778-6) Yellow Clarity, UA (test code = 5767-9) Clear Specific [place], UA (test code = 1.015 1.001-1.035 5811-5) pH, UA (test code = 5803-2) 5.0 5.0-8.0 Protein, UA (test code = 00073-7) Negative Negative Glucose, UA (test code = 365) Negative Negative Ketones, UA (test code = 2514-8) Negative Negative Bilirubin, UA (test code = 41060-0) Negative Negative Blood, UA (test code = 16690-5) Small Negative A Nitrite, UA (test code = 5802-4) Negative Negative Leukocytes, UA (test code = 5799-2) Negative Negative Urobilinogen, UA (test code = 0.2 mg/dL 0.2-1.0 17132-9) Specimen Source (test code = 2795) Lab Interpretation (test code = Abnormal 02715-7) [facility] Hospital[facility]inal[facility] with Microscopic If [id number] 05:13:27 Test Item Value Reference Range Interpretation Comments Color, UA (test code = 5778-6) Yellow Clarity, UA (test code = 5767-9) Clear Specific [place], UA (test code = 1.015 1.001-1.035 5811-5) pH, UA (test code = 5803-2) 5.0 5.0-8.0 Protein, UA (test code = 83829-3) Negative Negative Glucose, UA (test code = 365) Negative Negative Ketones, UA (test code = 2514-8) Negative Negative Bilirubin, UA (test code = 78110-6) Negative Negative Blood, UA (test code = 61263-3) Small Negative A Nitrite, UA (test code = 5802-4) Negative Negative Leukocytes, UA (test code = 5799-2) Negative Negative Urobilinogen, UA (test code = 0.2 mg/dL 0.2-1.0 55524-2) Specimen Source (test code = 2795) Lab Interpretation (test code = Abnormal 93715-5) [facility] [id number] 05:13:27 Test Item Value Reference Range Interpretation Comments Color, UA (test code = 5778-6) Yellow Clarity, UA (test code = 5767-9) Clear Specific [place], UA (test code = 1.015 1.001-1.035 5811-5) pH, UA (test code = 5803-2) 5.0 5.0-8.0 Protein, UA (test code = 73288-8) Negative Negative Glucose, UA (test code = 365) Negative Negative Ketones, UA (test code = 2514-8) Negative Negative Bilirubin, UA (test code = 23359-8) Negative Negative Blood, UA (test code = 17481-9) Small Negative A Nitrite, UA (test code = 5802-4) Negative Negative Leukocytes, UA (test code = 5799-2) Negative Negative Urobilinogen, UA (test code = 0.2 mg/dL 0.2-1.0 65308-5) Specimen Source (test code = 2795) Lab Interpretation (test code = Abnormal 94140-8) [facility] If [id number] 05:13:27 Test Item Value Reference Range Interpretation Comments Color, UA (test code = 5778-6) Yellow Clarity, UA (test code = 5767-9) Clear Specific [place], UA (test code = 1.015 1.001-1.035 5811-5) pH, UA (test code = 5803-2) 5.0 5.0-8.0 Protein, UA (test code = 18782-7) Negative Negative Glucose, UA (test code = 365) Negative Negative Ketones, UA (test code = 2514-8) Negative Negative Bilirubin, UA (test code = 76132-5) Negative Negative Blood, UA (test code = 24108-9) Small Negative A Nitrite, UA (test code = 5802-4) Negative Negative Leukocytes, UA (test code = 5799-2) Negative Negative Urobilinogen, UA (test code = 0.2 mg/dL 0.2-1.0 00026-3) Specimen Source (test code = 2795) Lab Interpretation (test code = Abnormal 08905-2) [facility]OSCOPIC IF [id number] 05:13:27 Test Item Value Reference Range Interpretation [...] SOURCE(BEAKER) (test code = 2795) Urinalysis Microscopic [id number] 05:13:21 Test Item Value Reference Range Interpretation Comments RBC, UA (test code = <5 See_Comment [Autom ated message] 799-7) The system [employer] generated this result transmitted ref erence range: /HPF. Th e reference range was not used to int erpret this result as normal/abnormal . WBC, UA (test code = None Seen See_Comment [Autom ated message] 31407-0) The system [employer] generated this result transmitted ref erence range: /HPF. Th e reference range was not used to int erpret this result as normal/abnormal . Bacteria, UA (test Occasional code = 11696-2) SQUAMOUS EPITHELIAL None Seen See_Comment [Automa josh message] (test code = 20724-4) The sy stem which generated this result transmitted ref erence range: /HPF. Th e reference range was not used to int erpret this result as normal/abnormal . HYALINE CASTS (test 0-5 See_Comment [Automa josh message] code = 5796-8) The system [email or web address] generated this result transmitted ref erence range: /LPF. Th e reference range was not used to int erpret this result as normal/abnormal . [facility] [id number] 05:13:21 Test Item Value Reference Range Interpretation Comments RBC, UA (test code = <5 See_Comment [Autom ated message] 799-7) The system [employer] generated this result transmitted ref erence range: /HPF. Th e reference range was not used to int erpret this result as normal/abnormal . WBC, UA (test code = None Seen See_Comment [Autom ated message] 42452-3) The system [employer] generated this result transmitted ref erence range: /HPF. Th e reference range was not used to int erpret this result as normal/abnormal . Bacteria, UA (test Occasional code = 74562-7) SQUAMOUS EPITHELIAL None Seen See_Comment [Automa josh message] (test code = 71446-1) The sy stem which generated this result transmitted ref erence range: /HPF. Th e reference range was not used to int erpret this result as normal/abnormal . HYALINE CASTS (test 0-5 See_Comment [Automa josh message] code = 5796-8) The system [employer] generated this result transmitted ref erence range: /LPF. Th e reference range was not used to int erpret this result as normal/abnormal . [facility] [id number] 05:13:21 Test Item Value Reference Range Interpretation Comments RBC, UA (test code = <5 See_Comment [Autom ated message] 799-7) The system [employer] generated this result transmitted ref erence range: /HPF. Th e reference range was not used to int erpret this result as normal/abnormal . WBC, UA (test code = None Seen See_Comment [Autom ated message] 72113-3) The system [employer] generated this result transmitted ref erence range: /HPF. Th e reference range was not used to int erpret this result as normal/abnormal . Bacteria, UA (test Occasional code = 55525-5) SQUAMOUS EPITHELIAL None Seen See_Comment [Automa josh message] (test code = 17503-2) The sy stem which generated this result transmitted ref erence range: /HPF. Th e reference range was not used to int erpret this result as normal/abnormal . HYALINE CASTS (test 0-5 See_Comment [Automa josh message] code = 5796-8) The system [employer] generated this result transmitted ref erence range: /LPF. Th e reference range was not used to int erpret this result as normal/abnormal . [facility] [id number] 05:13:21 Test Item Value Reference Range Interpretation Comments RBC, UA (test code = <5 See_Comment [Autom ated message] 799-7) The system [employer] generated this result transmitted ref erence range: /HPF. Th e reference range was not used to int erpret this result as normal/abnormal . WBC, UA (test code = None Seen See_Comment [Autom ated message] 61020-6) The system [employer] generated this result transmitted ref erence range: /HPF. Th e reference range was not used to int erpret this result as normal/abnormal . Bacteria, UA (test Occasional code = 31016-5) SQUAMOUS EPITHELIAL None Seen See_Comment [Automa josh message] (test code = 93666-5) The sy stem which generated this result transmitted ref erence range: /HPF. Th e reference range was not used to int erpret this result as normal/abnormal . HYALINE CASTS (test 0-5 See_Comment [Automa josh message] code = 5796-8) The system [employer] generated this result transmitted ref erence range: /LPF. Th e reference range was not used to int erpret this result as normal/abnormal . [facility] [id number] 05:13:21 Test Item Value Reference Range Interpretation Comments RBC, UA (test code = <5 See_Comment [Autom ated message] 799-7) The system [employer] generated this result transmitted ref erence range: /HPF. Th e reference range was not used to int erpret this result as normal/abnormal . WBC, UA (test code = None Seen See_Comment [Autom ated message] 32829-9) The system [employer] generated this result transmitted ref erence range: /HPF. Th e reference range was not used to int erpret this result as normal/abnormal . Bacteria, UA (test Occasional code = 22231-5) SQUAMOUS EPITHELIAL None Seen See_Comment [Automa josh message] (test code = 43195-7) The sy stem which generated this result transmitted ref erence range: /HPF. Th e reference range was not used to int erpret this result as normal/abnormal . HYALINE CASTS (test 0-5 See_Comment [Automa josh message] code = 5796-8) The system [employer] generated this result transmitted ref erence range: /LPF. Th e reference range was not used to int erpret this result as normal/abnormal . [facility] [id number] 05:13:21 Test Item Value Reference Range Interpretation Comments RBC, UA (test code = <5 See_Comment [Autom ated message] 799-7) The system [employer] generated this result transmitted ref erence range: /HPF. Th e reference range was not used to int erpret this result as normal/abnormal . WBC, UA (test code = None Seen See_Comment [Autom ated message] 18809-8) The system [employer] generated this result transmitted ref erence range: /HPF. Th e reference range was not used to int erpret this result as normal/abnormal . Bacteria, UA (test Occasional code = 15114-3) SQUAMOUS EPITHELIAL None Seen See_Comment [Automa josh message] (test code = 93873-7) The sy stem which generated this result transmitted ref erence range: /HPF. Th e reference range was not used to int erpret this result as normal/abnormal . HYALINE CASTS (test 0-5 See_Comment [Automa josh message] code = 5796-8) The system [facility] generated this result transmitted ref erence range: /LPF. Th e reference range was not used to int erpret this result as normal/abnormal . [facility] [id number] 05:13:21 Test Item Value Reference Range Interpretation Comments RBC UA-MANUAL (BEAKER) (test <5 /HPF code = 1659) WBC UA-MANUAL (BEAKER) (test None Seen /HPF code = 1661) BACTERIA (BEAKER) (test code = Occasional 517) SQUAMOUS EPITHELIAL MANUAL None Seen /HPF (BEAKER) (test code = 1663) HYALINE CASTS MANUAL (BEAKER) 0-5 /LPF (test code = 1665) TROPONIN [id number] 05:01:28 Test Item Value Reference Range Interpretation [...] failure, acidosis, acute neurological disease, and persistent tachyarrhythmia.Furnace Erector ID - LITOBASIC METABOLIC PANEL 2021-11-08 05:00:17 [...] 1092) DATA TO CALCULA TE ESTIMATED GFR. Furnace Erector ID - LITOOperator ID - LITOOperator ID - LITOOperator ID - LITOOperator ID - LITOOperator ID - LITOOperator ID - LITOOperator ID - LITOOperator ID - LITOOperator ID - LITOB-TYPE NATRIURETIC FACTOR (BNP)2021-11-08 05:00:11 Test Item Value Reference Range Interpretation Comments B-TYPE NATRIURETIC PEPTIDE (BEAKER) 480 pg/mL 0-100 H (test code = 700) Furnace Erector ID - LITOCBC W/PLT COUNT & AUTO [id number] 04:56:38 Test Item Value Reference Range Interpretation [...] H PERCENT (BEAKER) (test code = 2801) [id number] 04:53:09 Test Item Value Reference Range Interpretation Comments D-DIMER QUANTITATIVE 5.80 MG/L FEU <0.50 H Final Information (BEAKER) (test code = (Auto Output) 051) REGARDING D-DIMER RESULTS: The 98% NPV (Negative Predictive Value) for DVT/PE exclusion is 0.50 mg/LFEU as suggested by the [employer] senior specialist and as approved by the FDA.PROTHROMBIN [id number] 04:52:30 Test Item Value Reference Range Interpretation Comments PROTIME (BEAKER) 11.0 seconds 9.3-12.0 Final Infor mation (test code = 759) (Auto Outp ut) INR (BEAKER) (test 1.00 See_Comment Final Inf ormation code = 370) (Auto Output) [Automated mess age] The system [employer] generated this result transmitted ref erence range: <=5.90. The reference range was not used to int erpret this result as normal/abnormal . RECOMMENDED COUMADIN/WARFARIN INR THERAPY RANGESSTANDARD DOSE: 2.0 - 3.0 Includes: PROPHYLAXIS for venous thrombosis, systemic embolization; TREATMENT for venous thrombosis and/or pulmonary embolus.HIGH RISK: Target INR is 2.5-3.5 for patients with mechanical heart valves.HEMOGLOBIN [id number] 04:51:27 Test Item Value Reference Range Interpretation Comments HEMOGLOBIN A1C (BEAKER) (test code = 5.7 % 4.3-6.1 368) Furnace Erector ID - LITOHEPATIC FUNCTION [id number] 04:50:07 Test Item Value Reference Range Interpretation [...] (test code = 31 U/L 5-50 347) Furnace Erector ID - LITOOperator ID - LITOOperator ID - LITOOperator ID - LITOOperator ID - LITOOperator ID - LITOOperator ID - [id number] 04:49:45 Test Item Value Reference Range Interpretation Comments MAGNESIUM (BEAKER) (test code = 2.8 mg/dL 1.5-3.0 627) Furnace Erector ID - LITOOperator ID - LITOOperator ID - LITOOperator ID - ROSALBA [id number] 04:46:46 Test Item Value Reference Range Interpretation Comments PHOSPHORUS (BEAKER) (test code = 4.8 mg/dL 2.5-4.5 H 604) Furnace Erector ID - LITOPOCT-GLUCOSE [id number] 04:11:36 Test Item Value Reference Range Interpretation Comments POC-GLUCOSE METER 156 mg/dL 70-110 H : TESTED A T [address] (BEAKER) (test code [address], = 1538) [facility] [place] [address] 478: Furnace Erector/Techni [place] ID = [id number] for Real Lei, ABDOMEN/KUB 1 VIEW [id number] 04:02:00Reason for exam:->NG tube [facility]: 1950 Sex: MFINAL REPORT CLINICAL HISTORY: NG [...] on 204:02 AMRAD, CHEST, 1 VIEW, NON [id number] 03:57:00Reason for exam:->AHRFShould this be performed at the bedside?->Yes [facility] DOB: 1950 Sex: MFINAL REPORT RAD, CHEST, 1 [...] MDReport Verified Date/Time: 11/08/2021 03:57:41 Blood gas, [id number] 03:54:11 Test Item Value Reference Range Interpretation [...] 75 Lab Interpretation Abnormal (test code = 12382-2) [facility] gas, [id number] 03:54:11 Test Item Value Reference Range Interpretation Comments pH, Arterial (test code 7.38 7.35-7.45 = 2744-1) pCO2, Arterial (test 40 See_Comment [Autom ated code = 2019) message] The system which generated this result [...] 75 Lab Interpretation Abnormal (test code = 74256-1) [facility] gas, [id number] 03:54:11 Test Item Value Reference Range Interpretation [...] 75 Lab Interpretation Abnormal (test code = 66977-5) [facility], [id number] 03:54:11 Test Item Value Reference Range Interpretation [...] 75 Lab Interpretation Abnormal (test code = 93628-0) [facility] gas, [id number] 03:54:11 Test Item Value Reference Range Interpretation [...] 75 Lab Interpretation Abnormal (test code = 88983-2) [facility], [id number] 03:54:11 Test Item Value Reference Range Interpretation [...] 75 Lab Interpretation Abnormal (test code = 02836-7) [facility] GAS, [id number] 03:54:11 Test Item Value Reference Range Interpretation [...]
[2022-11-17] MEDS ORDERED: IPRATROPIUM BROM 0.5MG/2.5ML ONE (13:56)
[2022-11-17] MEDS ORDERED: CEFTRIAXONE 1000 MG/VIAL ONE (13:56)
[2022-11-17] MEDS ORDERED: METHYLPREDNISOLONE 40 MG INJ ONE (13:56)
[2022-11-17] MEDS ORDERED: NA CHLORIDE 0.9% 500 ML ONE (13:56)
[2022-11-17] MEDS ORDERED: ALBUTEROL 2.5 MG/3 ML NEB SOL ONE (13:56)
[2022-11-17] MEDS ORDERED: NA CHLORIDE 0.9% 250 ML ONE (13:56)
[2022-11-17] MEDS ORDERED: AZITHROMYCIN 500 MG INJ IVPB ONE (13:56)
[2022-11-17 14:23] LABS: Absolute Lymphocytes (CBC) 0.7 K/uL (0.7-4.9); Hematocrit 36.6 % (39.6-49.0); Lymphocytes % 4.6 % (15.3-44.8); MPV 9.1 fL (7.6-11.3); RBC Red Blood Cell Count 4.02 M/uL (4.33-5.43)
[2022-11-17 15:10] LABS: Protime INR 1.37
[2022-11-17 15:25] LABS: Albumin 2.9 g/dL (3.4-5.0); Bilirubin Total 0.4 mg/dL (0.2-1.0); Potassium 3.7 mEq/L (3.5-5.1); Protein, Total 6.2 g/dL (6.4-8.2)
[2022-11-17 15:27] LABS: Troponin High Sensitivity 105.3 pg/mL (<58.9)
--- NOTE | 2022-11-17 15:31 | RAD REPORT ---
EXAM DESCRIPTION: Irais Single View11/17/2022 3:06 pm CLINICAL HISTORY: Chest pain COMPARISON: 2021 FINDINGS: Chronic right pleural thickening. Small pleural effusions Hyperaerated lungs Mild to moderate bilateral pulmonary opacities Cardiomegaly IMPRESSION: COPD Ylju-eo-dicqoyka bilateral pulmonary opacities could represent pulmonary edema or pneumonia
--- NOTE | 2022-11-17 15:44 | ER ---
Nurse's Notes [facility] Name: Gabo Chow Sr Age: 72 yrs Sex: Male : 1950 Arrival Date: 11/17/2022 Time: 13:20 Bed 4 Private MD: Diagnosis: COPD/ Chronic obstructive pulmonary disease with (acute) exacerbation;Other pneumonia, unspecified organism Presentation: 11/17 13:25 Chief complaint: EMS states: [facility] and reported having a kc6 panic attack approximately 2hrs ago that progressed to respiratory distress. pt was found 90% on 3L via NC. Coronavirus screen: At this time, the client does not indicate any symptoms associated with coronavirus-19. Ebola Screen: No symptoms or risks identified at this time. Initial Sepsis Screen: Does the patient meet any 2 criteria? RR > 20 per min. HR > 90 bpm. Does the patient have a suspected source of infection? No. Patient's initial sepsis screen is negative. Risk Assessment: Do you want to hurt yourself or someone else? Patient reports no desire to harm self or others. Onset of symptoms was November 17, 2022. 13:25 Method Of Arrival: EMS: [facility] kc6 13:25 Acuity: ALLI 3 kc6 Triage Assessment: 13:27 General: Appears distressed, uncomfortable, Behavior is cooperative, appropriate for kc6 age, anxious, restless. Pain: Denies pain. EENT: No signs and/or symptoms were reported regarding the EENT system. Neuro: Bahena Agitation-Sedation Scale (RASS): 0 - Alert and Calm Level of Consciousness is awake, alert, obeys commands, Oriented to person, place, time, situation, Appropriate for age. Cardiovascular: Capillary refill < 3 seconds. Respiratory: Reports shortness of breath at rest Airway is patent Trachea midline Respiratory effort is even, labored, Respiratory pattern is symmetrical, tachypnea Breath sounds with wheezes bilaterally. Onset: The symptoms/episode began/occurred today, the patient has moderate shortness of breath. GI: No signs and/or symptoms were reported involving the gastrointestinal system. : No signs and/or symptoms were reported regarding the genitourinary system. Derm: No signs and/or symptoms reported regarding the dermatologic system. Skin is intact, Skin is diaphoretic, Skin is pink, warm \T\ dry. Skin temperature is warm. Musculoskeletal: No signs and/or symptoms reported regarding the musculoskeletal system. Circulation, motion, and sensation intact. Capillary refill < 3 seconds, Range of motion: intact in all extremities. Historical: - Allergies: 13:27 No Known Allergies; kc6 - PMHx: 13:27 CHF; COPD; HTN; Hypertension; PR; Myocardial infarction; kc6 - PSHx: 13:27 heart stent; Stented artery; kc6 - Immunization history:: Adult Immunizations unknown. - Social history:: Smoking status: unknown. Screenin:21 [facility] ED Fall Risk Assessment (Adult) History of falling in the last 3 months, bp including since admission No falls in past 3 months (0 pts). Abuse screen: Denies threats or abuse. Denies injuries from another. Nutritional screening: No deficits noted. Tuberculosis screening: No symptoms or risk factors identified. Assessment: 13:32 Reassessment: please see triage assessment. kc6 14:21 Reassessment: Patient appears in no apparent distress at this time. Patient is alert, bp oriented x 3, equal unlabored respirations, skin warm/dry/pink. 15:14 Reassessment: Patient appears in no apparent distress at this time. Patient is alert, bp oriented x 3, equal unlabored respirations, skin warm/dry/pink. 17:00 Reassessment: ADMIT IN PROCESS. bp 19:22 Reassessment: Patient appears in no apparent distress at this time. Patient is alert, kl oriented x 3, equal unlabored respirations, skin warm/dry/pink. Patient states feeling better. Patient states symptoms have improved. Vital Signs: 13:25 Pulse 112; Resp 23; Pulse Ox 100% ; Weight 81.65 kg; Height 6 ft. 0 in. (R); Pain 0/10; kc6 14:04 Temp 98.4; vg1 14:20 BP 132 / 78; Pulse 87; Resp 18; Pulse Ox 100% ; bp 15:14 BP 116 / 75; Pulse 73; Resp 19; Pulse Ox 100% ; bp 16:00 BP 121 / 66; Pulse 73; Resp 18; Pulse Ox 97% ; bp 17:00 BP 124 / 77; Pulse 74; Resp 19; Pulse Ox 98% ; bp 18:00 BP 117 / 77; Pulse 69; Resp 19; Pulse Ox 99% ; bp 19:22 BP 118 / 70; Pulse 69; Pulse Ox 99% on R/A; kl 13:25 Body Mass Index 24.41 (81.65 kg, 182.88 cm) kc6 13:25 Pain Scale: Adult kc6 ED Course: 13:25 Patient arrived in ED. kc6 13:26 Roebrt García MD is Attending Physician. bs3 13:27 Triage completed. kc6 13:27 Arm band placed on. kc6 13:31 Luzma [facility] RN is Primary Nurse. vg1 13:31 Maintain EMS IV. Dressing intact. Good blood return noted. Site clean \T\ dry. Gauge \T\ zia 6 site: 18G LFA. 14:21 Patient has correct armband on for positive identification. Bed in low position. Call bp light in reach. Side rails up X2. 15:08 Chest Single View XRAY In Process Unspecified. EDMS 15:26 Notified ED physician of troponin 102.3. ll1 15:42 Ruslan Clements MD is Hospitalizing Provider. bs3 19:49 No provider procedures requiring assistance completed. Patient transferred, IV remains vc1 in place. Administered Medications: 13:53 Drug: MethylPrednisoLONE IVP 40 mg Route: IVP; Site: left forearm; vg1 15:56 Follow up: Response: No adverse reaction kc6 14:00 Drug: DuoNeb Nebulize (3:1) (2.5 mg - 0.5 mg) 3 ml Route: Nebulizer; vg1 15:56 Follow up: Response: No adverse reaction kc6 14:03 Drug: NS 0.9% IV 500 ml Route: IV; Rate: bolus; Site: left forearm; bp 15:55 Follow up: Response: No adverse reaction; IV Status: Completed infusion; IV Intake: kc6 500ml 14:20 Drug: Rocephin IV 1 grams Route: IV; Rate: bolus; Site: left forearm; bp 15:56 Follow up: Response: No adverse reaction; IV Status: Completed infusion; IV Intake: 25nvwe9 14:20 Drug: AZITHromycin IVPB 500 mg Route: IVPB; Infused Over: 1 hrs; Site: left forearm; bp 15:56 Follow up: Response: No adverse reaction; IV Status: Completed infusion; IV Intake: kc6 250ml 15:51 Drug: Aspirin PO Chewable Tablet 324 mg Route: PO; bp 18:32 Follow up: Response: No adverse reaction bp Medication: 19:49 VIS not applicable for this client. vc1 Intake: 15:55 IV: 500ml; Total: 500ml. kc6 15:56 IV: 50ml; Total: 550ml. kc6 15:56 IV: 250ml; Total: 800ml. kc6 Outcome: 15:43 Decision to Hospitalize by Provider. bs3 19:50 Admitted to Tele accompanied by tech, via stretcher, room 404, with oxygen, with chart, vc1 Report called to DERIC Gerard 19:50 Condition: good 19:50 Instructed on the need for admit. 19:50 Patient left the ED. vc1 Signatures: Dispatcher [employer] EDMS Jyoti Mooney, RN RN J Luis Merchant RN RN Luzma Yarbrough RN RN vg1 Yennifer Mooney RN RN ll1 Cora Monroy RN RN 1 Geeat Miranda RN RN kc6 Robert García MD MD bs3 Corrections: (The following items were deleted from the chart) 14:03 14:03 Rocephin IV 1 grams IV at bolus in left forearm bp bp
--- NOTE | 2022-11-17 15:44 | EDPHYS ---
Physician Documentation [facility] Name: Gabo Chow Sr Age: 72 yrs Sex: Male : 1950 Arrival Date: 11/17/2022 Time: 13:20 Bed 4 Private MD: ED Physician Robert García HPI: 11/17 13:28 This 72 yrs old Male presents to ER via EMS with complaints of Anxiety, bs3 Shortness Of Breath. 13:35 Patient reports a history of CHF COPD hypertension who developed acute difficulty bs3 breathing 2 hours prior to arrival he was given a DuoNeb at his intermediate with some relief but continued to have symptoms EMS gave him another breathing treatment and then he came in denies fevers or chills history is limited secondary to patient's condition and respiratory distress. Historical: - Allergies: 13:27 No Known Allergies; kc6 - PMHx: 13:27 CHF; COPD; HTN; Hypertension; PR; Myocardial infarction; kc6 - PSHx: 13:27 heart stent; Stented artery; kc6 - Immunization history:: Adult Immunizations unknown. - Social history:: Smoking status: unknown. ROS: 13:35 Constitutional: Negative for fever, chills bs3 13:35 All other systems are negative. Exam: 13:35 Constitutional: Appears in moderate respiratory distress Head/Face: Normocephalic, bs3 atraumatic. Eyes: Pupils equal round and reactive to light, extra-ocular motions intact. Lids and lashes normal. ENT: mmm, no posterior phyarngeal erythema Neck: Trachea midline, no thyromegaly, no neck stiffness Chest/axilla: Normal chest wall appearance and motion. Nontender with no deformity. No lesions are appreciated. Cardiovascular: Regular rate and rhythm with a normal S1 and S2. symmetric pulses in upper extremities Respiratory: Tachypneic, increased work of breathing bilateral expiratory wheeze Abdomen/GI: Soft, non-tender, no rebound or guarding Skin: Warm, dry with normal turgor. Normal color with no rashes, no lesions, and no evidence of cellulitis. MS/ Extremity: Pulses equal, no cyanosis. Neurovascular intact. Full, normal range of motion. Neuro: Awake and alert, GCS 15, oriented to person, place, time, and situation. Cranial nerves II-XII grossly intact. Motor strength 5/5 in all extremities. Sensory grossly intact. Psych: Awake, alert, with orientation to person, place and time. Behavior, mood, and affect are within normal limits. 15:13 Sinus tachycardia 130 LVH widened QRS TX 116 as interpreted by myself bs3 Vital Signs: 13:25 Pulse 112; Resp 23; Pulse Ox 100% ; Weight 81.65 kg; Height 6 ft. 0 in. (R); Pain 0/10; kc6 14:04 Temp 98.4; vg1 14:20 BP 132 / 78; Pulse 87; Resp 18; Pulse Ox 100% ; bp 15:14 BP 116 / 75; Pulse 73; Resp 19; Pulse Ox 100% ; bp 16:00 BP 121 / 66; Pulse 73; Resp 18; Pulse Ox 97% ; bp 17:00 BP 124 / 77; Pulse 74; Resp 19; Pulse Ox 98% ; bp 18:00 BP 117 / 77; Pulse 69; Resp 19; Pulse Ox 99% ; bp 19:22 BP 118 / 70; Pulse 69; Pulse Ox 99% on R/A; kl 13:25 Body Mass Index 24.41 (81.65 kg, 182.88 cm) kc6 13:25 Pain Scale: Adult kc6 MDM: 13:26 Patient medically screened. bs3 13:35 Data reviewed: vital signs, nurses notes. ED course: Patient with likely respiratory bs3 distress secondary to COPD given the wheezing he had improvement with an initial breathing treatment bedside ultrasound demonstrated no significant B-lines however he had poor squeeze of the LV will evaluate for sepsis we will be judicious with fluids will deviate from 30 cc/kg given poor cardiac function. 15:14 ED course: Heart rate improved now 72 normal sinus rhythm on telemetry at 3:14 PM. bs3 15:41 ED course: trop elevated but not sig changed from prior, will given aspirin, pt covered bs3 with antiobitcs, will admit.. 11/17 13:28 Order name: Blood Culture Adult (2) bs3 11/17 13:28 Order name: CBC with Diff; Complete Time: 14:53 bs3 11/17 13:28 Order name: CMP; Complete Time: 15:32 bs3 11/17 13:28 Order name: Lactate w/ 2H reflex if indic.; Complete Time: 14:53 bs3 11/17 13:28 Order name: Protime (+inr); Complete Time: 15:13 3 11/17 13:28 Order name: Ptt, Activated; Complete Time: 15:13 [facility] 11/17 13:28 Order name: Urinalysis w/ reflexes [facility] 11/17 13:28 Order name: BNP; Complete Time: 15:32 3 11/17 13:28 Order name: Troponin High Sensitivity; Complete Time: 15:32 3 11/17 13:31 Order name: Arterial Blood Gas [facility] 11/17 18:14 Order name: Phosphorus EDMS 11/17 18:14 Order name: Magnesium EDMS 11/17 13:28 Order name: Chest Single View XRAY; Complete Time: 15:32 [facility] 11/17 17:16 Order name: Thorax Wo Con MS 11/17 13:28 Order name: EKG; Complete Time: 13:28 [facility] 11/17 13:28 Order name: Accucheck; Complete Time: 14:01 [facility] 11/17 13:28 Order name: Cardiac monitoring; Complete Time: 13:32 [facility] 11/17 13:28 Order name: EKG - Nurse/Tech; Complete Time: 13:44 3 11/17 13:28 Order name: IV Saline Lock - Large Bore; Complete Time: 13:32 [facility] 11/17 13:28 Order name: Labs collected and sent; Complete Time: 14:01 [facility] 11/17 13:28 Order name: O2 Per Protocol; Complete Time: 13:32 3 11/17 13:28 Order name: O2 Sat Monitoring; Complete Time: 13:32 [facility] 11/17 13:28 Order name: Vital Signs; Complete Time: 13:32 [facility] 11/17 14:28 Order name: Labs - recollect needed: recollect blue and green top; Complete Time: 14:44 bd Administered Medications: 13:53 Drug: MethylPrednisoLONE IVP 40 mg Route: IVP; Site: left forearm; vg1 15:56 Follow up: Response: No adverse reaction kc6 14:00 Drug: DuoNeb Nebulize (3:1) (2.5 mg - 0.5 mg) 3 ml Route: Nebulizer; vg1 15:56 Follow up: Response: No adverse reaction kc6 14:03 Drug: NS 0.9% IV 500 ml Route: IV; Rate: bolus; Site: left forearm; bp 15:55 Follow up: Response: No adverse reaction; IV Status: Completed infusion; IV Intake: kc6 500ml 14:20 Drug: Rocephin IV 1 grams Route: IV; Rate: bolus; Site: left forearm; bp 15:56 Follow up: Response: No adverse reaction; IV Status: Completed infusion; IV Intake: [id number] 14:20 Drug: AZITHromycin IVPB 500 mg Route: IVPB; Infused Over: 1 hrs; Site: left forearm; bp 15:56 Follow up: Response: No adverse reaction; IV Status: Completed infusion; IV Intake: kc6 250ml 15:51 Drug: Aspirin PO Chewable Tablet 324 mg Route: PO; bp 18:32 Follow up: Response: No adverse reaction bp Disposition Summary: 11/17/22 15:43 Hospitalization Ordered Hospitalization Status: Inpatient Admission bs3 Provider: Ruslna Clements bs3 [facility] ([facility] bs3 Condition: Stable bs3 Problem: an acute exacerbation bs3 Symptoms: have improved bs3 Bed/Room Type: Standard bs3 Room Assignment: 404(11/17/22 17:46) bd Diagnosis - COPD/ Chronic obstructive pulmonary disease with (acute) exacerbation bs3 - Other pneumonia, unspecified organism bs3 Forms: - Medication Reconciliation Form bs3 - SBAR form bs3 Signatures: Dispatcher [employer] Dedra Freeman bd J Luis Sue RN RN Luzma Yarbrough RN RN vg1 Geeta Miranda RN RN [id number] Robert García MD MD bs3 Corrections: (The following items were deleted from the chart) 17:46 15:43 bs3 bd
[2022-11-17] MEDS ORDERED: ASPIRIN 81 MG CHEWABLE TABLET ONE (15:57)
[2022-11-17] MEDS ORDERED: ACETAMINOPHEN 325 MG TABLET PO PRN (17:17)
[2022-11-17] MEDS ORDERED: TRAMADOL HCL 50 MG TAB PO PRN (17:17)
[2022-11-17] MEDS ORDERED: ONDANSETRON 4 MG/2 ML VIAL IV PRN (17:26)
--- NOTE | 2022-11-17 17:56 | P.HP ---
Certification for Inpatient Patient admitted to: Inpatient With expected LOS: >2 Midnights Patient will require the following post-hospital care: None Practitioner: I am a practitioner with admitting privileges, knowledge of patient current condition, hospital course, and medical plan of care. Services: Services provided to patient in accordance with Admission requirements found in Title 42 Section 412.3 of the Code of Federal Regulations Patient History Date of Service: 11/17/22 Reason for admission: Shortness of breath History of Present Illness: Patient is a 72-year-old male with a past medical history significant for CHF, COPD, hypertension, [place], CAD with stent, nicotine dependence who presents with complaint of shortness of breath onset this morning. Patient reported associated signs and symptoms of cough, wheezing, chest tightness, nausea and diaphoresis. Patient denies any other signs and symptoms. Patient reported that he used his home nebulizers but did not experience any relief. Symptoms are aggravated or relieved by nothing. Patient decided to present to the hospital due to worsening symptoms. Allergies No Known Allergies Allergy (Verified 06/14/22 22:26) Home Medications: Albuterol Sulfate [Albuterol Sulfate Hfa] 1 puff IH DAILY 02/05/22 Aspirin [Aspirin EC] 81 mg PO DAILY 04/05/22 Clopidogrel Bisulfate [Plavix] 75 mg PO DAILY 04/05/22 Metoprolol Tartrate 25 mg PO BID 04/05/22 Apixaban [Eliquis] 5 mg PO BID #60 tab 04/09/22 Fluticasone/Salmeterol [Advair 250-50 Diskus] 1 each IH BID #1 kit 05/13/22 Furosemide [Lasix] 80 mg PO DAILY 06/14/22 Rosuvastatin Calcium [Crestor] 20 mg PO BEDTIME 06/14/22 Azithromycin [Zithromax] 250 mg PO DAILY 15 Days #15 tab 06/20/22 Buspirone HCl [Buspar*] 10 mg PO BID #60 tab 06/20/22 Theophylline Anhydrous [Devaughn-24] 200 mg PO BID 60 Days #60 tab 06/20/22 predniSONE [Deltasone*] 10 mg PO BID 15 Days #30 tab 06/20/22 Albuterol Neb [Proventil 0.083% Neb Soln] 2.5 mg IH Q6H PRN #120 amp 06/23/22 Amlodipine [Norvasc*] 10 mg PO DAILY #30 tab 06/23/22 Ipratropium Neb [Atrovent*] 0.5 mg NEB [id number] #120 amp 06/23/22 Nebulizer 1 each IN QID #1 kit 06/23/22 - Past Medical/Surgical History Diabetic: No -: HTN -: COPD -: HTN -: CHF -: CKD followed by Dr. Roy -: CAD -: A. fib on chronic anticoagulation -: heart stent -: Heart cath evere CAD Psychosocial/ Personal History: Patient lives at home with his . - Family History Father -: Heart disease Notes: Heart attack Mother -: Lung disease Notes: COPd - Social History Smoking Status: Light Tobacco smoker (1-9 cigarettes/day) Counseled patient to stop smoking for: less than 10 minutes Smoking therapy provided: Yes Patient receptive to therapy: No Alcohol use: Yes CD- Drugs: No Caffeine use: Yes Place of Residence: Home Review of Systems General: Sweats Eyes: Unremarkable Respiratory: Cough, Shortness of Breath, Wheezing, Other (Chest tightness) Cardiovascular: Unremarkable Gastrointestinal: Nausea Genitourinary: Unremarkable Musculoskeletal: Unremarkable Integumentary: Unremarkable Neurological: Unremarkable Lymphatics: Unremarkable Physical Examination - Physical Exam General: Alert, In no apparent distress, Oriented x3, Cooperative HEENT: Atraumatic, PERRLA, Mucous membr. moist/pink, EOMI, Sclerae nonicteric Neck: Supple, 2+ carotid pulse no bruit, No LAD, Without JVD or thyroid abnormality Respiratory: Diminished, Expiratory wheezes Cardiovascular: Normal S1 S2, Irregular heart rate/rhythm Capillary refill: <2 Seconds Gastrointestinal: Normal bowel sounds, Soft and benign, No tenderness Musculoskeletal: No clubbing, No tenderness Integumentary: No rashes, No breakdown, No significant lesion Neurological: Normal speech, Normal strength at 5/5 x4 extr, Normal tone, Normal affect Lymphatics: No axilla or inguinal lymphadenopathy - Studies Laboratory Data (last 24 hrs) 11/17/22 14:44: PT 15.1 H, INR 1.37, APTT 29.4 11/17/22 14:44: Sodium 138, Potassium 3.7, BUN 25 H, Creatinine 2.01 H, Glucose 154 H, Total Bilirubin 0.4, AST 23, ALT 19, Alkaline Phosphatase 117 11/17/22 14:00: WBC 15.50 H, Hgb 11.8 L, Hct 36.6 L, Plt Count 231 Assessment and Plan - Plan --Acute on chronic systolic CHF exacerbation. Patient placed on diuresis with Lasix. Cardiology consulted. Daily weight and strict I/O. Echocardiogram of 10/05/2021 indicates an EF of 42%. Further management per lead net software developer. --Elevated troponin. Patient has a history of elevated troponin. We will continue to trend troponin levels. Cardiology consulted. Telemetry to monitor for any significant arrhythmia. Further management per lead net software developer. --Acute on chronic COPD exacerbation. Continue home medications, neb treatment with albuterol\Atrovent and O2 therapy. --Hyperlipidemia. Continue statin. --Chronic A. fib. Continue Eliquis. --History of [place]\CAD. Continue aspirin, Plavix, Eliquis and statin. --Leukocytosis. Likely reactive. Will reassess levels in a.m. --Anemia of chronic disease. H&H stable. We will continue to monitor hemoglobin and transfuse if less than 7.0. -- Hypertension. Stable. Continue home medications. --Nicotine dependence. Patient counseled on tobacco cessation. Refuses nicotine patch. --CKD 3B. Improvement in renal functions compared to levels 2 months ago. We will continue to monitor renal functions. --DVT prophylaxis with Eliquis. Discharge Plan: Home Plan to discharge in: Greater than 2 days - Advance Directives Does patient have a Living Will: No Does patient have a Durable POA for Healthcare: Yes - Code Status/Comfort Care Code Status Assessed: Yes Physician Review: Patient Assessed, Agree with Above Assessment and Plan Critical Care: No
[2022-11-17 18:00] LABS: Phosphorus 3.9 mg/dL (2.5-4.9)
[2022-11-17 18:14] LABS: Magnesium 2.3 mg/dL (1.6-2.4)
--- NOTE | 2022-11-17 18:34 | RAD REPORT ---
EXAM DESCRIPTION: CT - Thorax Wo Con - 11/17/2022 6:17 pm CLINICAL HISTORY: sob COMPARISON: 2021 TECHNIQUE: Computed axial tomography of the chest was obtained. Contrast was not requested. All CT scans are performed using dose optimization technique as appropriate and may include automated exposure control or mA/KV adjustment according to patient size. FINDINGS: The evaluation of mediastinum, jada and vessels is limited secondary to lack of IV contras t administration. Small to moderate left and small right pleural effusions. Fluid extends into the right major fissure. Right pleural thickening is present. Left lower lobe atelectasis Mild bilateral interstitial lung opacities. Mild mediastinal lymphadenopathy likely reactive in nature. Coronary arterial calcifications. IMPRESSION: Small to moderate left pleural effusion with left lower lobe atelectasis Mild bilateral interstitial lung opacities may represent mild interstitial pulmonary edema COPD
[2022-11-17] MEDS: APIXABAN 5 MG TABLET PO SCH (20:27)
[2022-11-17] MEDS: ALBUTEROL 2.5 MG/3 ML NEB SOL NEB SCH (20:30)
[2022-11-17] MEDS: IPRATROPIUM BROM 0.5MG/2.5ML NEB SCH (20:30)
[2022-11-18] MEDS: IPRATROPIUM BROM 0.5MG/2.5ML NEB SCH ×4 (02:00→19:50)
[2022-11-18] MEDS: ALBUTEROL 2.5 MG/3 ML NEB SOL NEB SCH ×4 (02:00→19:50)
--- NOTE | 2022-11-18 05:34 | EKG ---
Test Date: 2022-11-17 Test Time: 13:22:56 [employer]: GIOVANA MEASUREMENT RESULTS: Intervals: Rate: 129 NM: 116 QRSD: 128 QT: 322 QTc: 471 Nuevo: P: 49 NM: 116 QRS: -22 T: 102 INTERPRETIVE STATEMENTS: Sinus tachycardia Possible Left atrial enlargement Left ventricular hypertrophy with QRS widening T wave abnormality, consider inferolateral ischemia Abnormal ECG Compared to ECG 06/18/2022 08:57:33 Left ventricular hypertrophy now present T-wave abnormality now present Possible ischemia now present Sinus rhythm no longer present Ventricular premature complex(es) no longer present Left bundle-branch block no longer present Electronically Signed On 11-18-22 05:33:27 CDT by Irvin Turner
[2022-11-18] MEDS: METOPROLOL TAR 25 MG TAB PO SCH ×2 (06:09→16:42)
[2022-11-18 06:20] LABS: Absolute Lymphocytes (CBC) 0.3 K/uL (0.7-4.9); Hematocrit 31.6 % (39.6-49.0); Lymphocytes % 4.1 % (15.3-44.8); MCV 89.3 fL (80-100); MPV 8.7 fL (7.6-11.3); RBC Red Blood Cell Count 3.54 M/uL (4.33-5.43)
[2022-11-18 06:43] LABS: Potassium 3.8 mEq/L (3.5-5.1)
--- NOTE | 2022-11-18 07:27 | P.PN ---
Date of Service: 11/18/22 Subjective: Feeling better this morning states breathing seems easier today no new / worsening problems ROS: 10 point ROS as noted above, otherwise negative Physical Exam: GEN: Alert, oriented, NAD HEENT: Normal conjunctiva, sclera anicteric CV: regular rate/rhythm, trace b/l edema Pulm: mild labored respirations on 2L NC, expiratory wheezes ABD: Soft, nontender, nondistended Neuro: Normal speech, normal affect vitals reviewed Problem List: Acute on chronic systolic CHF exacerbation continue diuresis with Lasix Daily weight and strict I/O h/o elevated troponins in past continue to trend troponin levels, monitor on telemetry Cardiology consulted Echo of (09/2021): EF of 42%. Echo pending leukocytosis likely reactive vs steroid use. Will reassess levels in a.m. Acute on chronic COPD exacerbation. neb treatment with albuterol\Atrovent and O2 therapy Continue home medications Pulmonology consulted added Brovana, low-dose prednisone 11/18 CKD 3B Improvement in renal functions compared to levels 2 months ago. We will continue to monitor renal functions Hyperlipidemia - Continue statin. Chronic A. fib - Continue Eliquis. History of ID\CAD - continue aspirin, Plavix, Eliquis and statin. Anemia of chronic disease - H&H stable. We will continue to monitor hemoglobin and transfuse if less than 7.0. Hypertension - Stable. Continue home medications. Nicotine dependence - Patient counseled on tobacco cessation. Refuses nicotine patch. VTE: Eliquis Code: Full Dispo: Home ~1-2 days
[2022-11-18] MEDS ORDERED: predniSONE 20 MG TAB PO SCH (09:00)
[2022-11-18] MEDS ORDERED: POTASSIUM CL SA 10 MEQ TAB PO ONE (09:00)
[2022-11-18] MEDS: FUROSEMIDE 40 MG/4 ML VIAL IV SCH ×2 (09:17→16:42)
[2022-11-18] MEDS: APIXABAN 5 MG TABLET PO SCH ×2 (09:18→20:16)
[2022-11-18] MEDS: ASPIRIN 81 MG CHEWABLE TABLET PO SCH (09:18)
--- NOTE | 2022-11-18 12:59 | P.CNS ---
Date of Consult: 11/18/22 Reason for Consult: Respiratory distress Chief Complaint: Shortness of breath History of Present Illness: Patient is 72 years of age being acutely developed shortness of breath he previously had recurrent admissions for presumed diastolic heart failure and and COPD BNP was over 24,000 feeling a little better apparently was compliant with his therapy this happened all of a sudden denies any fever chills cough sputum or phlegm no chest pain Allergies No Known Allergies Allergy (Verified 06/14/22 22:26) Home Medications: Albuterol Sulfate [Albuterol Sulfate Hfa] 1 puff IH DAILY 02/05/22 Aspirin [Aspirin EC] 81 mg PO DAILY 04/05/22 Clopidogrel Bisulfate [Plavix] 75 mg PO DAILY 04/05/22 Metoprolol Tartrate 25 mg PO BID 04/05/22 Apixaban [Eliquis] 5 mg PO BID #60 tab 04/09/22 Fluticasone/Salmeterol [Advair 250-50 Diskus] 1 each IH BID #1 kit 05/13/22 Furosemide [Lasix] 80 mg PO DAILY 06/14/22 Rosuvastatin Calcium [Crestor] 20 mg PO BEDTIME 06/14/22 Azithromycin [Zithromax] 250 mg PO DAILY 15 Days #15 tab 06/20/22 Buspirone HCl [Buspar*] 10 mg PO BID #60 tab 06/20/22 Theophylline Anhydrous [Devaughn-24] 200 mg PO BID 60 Days #60 tab 06/20/22 predniSONE [Deltasone*] 10 mg PO BID 15 Days #30 tab 06/20/22 Albuterol Neb [Proventil 0.083% Neb Soln] 2.5 mg IH Q6H PRN #120 amp 06/23/22 Amlodipine [Norvasc*] 10 mg PO DAILY #30 tab 06/23/22 Ipratropium Neb [Atrovent*] 0.5 mg NEB [id number] #120 amp 06/23/22 Nebulizer 1 each IN QID #1 kit 06/23/22 - Past Medical/Surgical History Diabetic: No -: HTN -: COPD -: HTN -: CHF -: CKD followed by Dr. Roy -: CAD -: A. fib on chronic anticoagulation -: heart stent -: Heart cath evere CAD Psychosocial/ Personal History: Patient lives at home with his . - Family History Father Medical History: Heart disease Notes: Heart attack Mother Medical History: Lung disease Notes: COPd - Social History Smoking Status: Unknown if ever smoked Alcohol use: Yes CD- Drugs: No Caffeine use: Yes Place of Residence: Home Review of Systems 10-point ROS is otherwise unremarkable General: Weakness Respiratory: Shortness of Breath Cardiovascular: Edema Physical Examination Temp Pulse Resp BP Pulse Ox 98.8 F 74 18 124/75 99 11/18/22 12:00 11/18/22 12:00 11/18/22 12:00 11/18/22 12:00 11/18/22 12:00 General: Alert, In no apparent distress, Oriented x3 Respiratory: Clear to auscultation bilaterally, Crackles/rales Cardiovascular: Normal pulses, Regular rate/rhythm, Edema (Minimal edema) Gastrointestinal: Normal bowel sounds, Soft and benign Laboratory Data (last 24 hrs) 11/17/22 14:44: Phosphorus 3.9, Magnesium 2.3 11/17/22 14:44: PT 15.1 H, INR 1.37, APTT 29.4 11/17/22 14:44: Sodium 138, Potassium 3.7, BUN 25 H, Creatinine 2.01 H, Glucose 154 H, Total Bilirubin 0.4, AST 23, ALT 19, Alkaline Phosphatase 117 11/17/22 14:00: WBC 15.50 H, Hgb 11.8 L, Hct 36.6 L, Plt Count 231 - Problems (1) Acute exacerbation of CHF (congestive heart failure) Onset Date: 07/28/18 Current Visit: No Status: Acute Plan: Patient is 72 years of age admitted with acute onset of shortness of breath he has been stable for quite some time compliant with his therapy bilateral pleural effusion BNP is over 24,000 chest x-ray shows pleural effusions left greater than the right Labs reviewed doubt infection continue with diuretics patient also has underlying severe obstructive airways disease continue with low-dose azithromycin have added Brovana low-dose prednisone Qualifiers: Heart failure type: diastolic Qualified Code(s): I50.33 - Acute on chronic diastolic (congestive) heart failure
[2022-11-18] MEDS: ARFORMOTEROL TARTRATE 15 MCG/2 ML VIAL.NEB NEB SCH (19:50)
[2022-11-18] MEDS: predniSONE 10 MG TAB PO SCH (20:16)
[2022-11-19] MEDS: ALBUTEROL 2.5 MG/3 ML NEB SOL NEB SCH ×4 (01:30→19:45)
[2022-11-19] MEDS: IPRATROPIUM BROM 0.5MG/2.5ML NEB SCH ×4 (01:30→19:45)
[2022-11-19 04:21] LABS: Absolute Lymphocytes (CBC) 0.5 K/uL (0.7-4.9); Hematocrit 31.7 % (39.6-49.0); Lymphocytes % 4.8 % (15.3-44.8); MCV 89.7 fL (80-100); MPV 8.9 fL (7.6-11.3); RBC Red Blood Cell Count 3.54 M/uL (4.33-5.43)
[2022-11-19 04:29] LABS: Magnesium 2.2 mg/dL (1.6-2.4); Potassium 4.3 mEq/L (3.5-5.1)
[2022-11-19 04:58] LABS: Blood Morphology Comment NOT SEEN (NOT SEEN); Platelet Estimate ADEQ
[2022-11-19] MEDS: METOPROLOL TAR 25 MG TAB PO SCH ×2 (05:36→17:13)
--- NOTE | 2022-11-19 07:27 | P.PN ---
Date of Service: 11/19/22 Subjective: Feeling "pretty good" this morning Breathing feels easier today, able to move around more, less trouble taking deeper breaths nursing states he was dyspneic and needed assistance to bedside commode cough/wheezing remains about the same no new / worsening problems ROS: 10 point ROS as noted above, otherwise negative Physical Exam: GEN: Alert, oriented, NAD HEENT: Normal conjunctiva, sclera anicteric CV: regular rate/rhythm, trace b/l edema Pulm: mild labored respirations on 2L NC, moderate expiratory wheezes diffusely ABD: Soft, nontender, nondistended Neuro: Normal speech, normal affect vitals reviewed Problem List: Acute on chronic systolic CHF exacerbation Acute on chronic COPD exacerbation CKD 3B Hyperlipidemia Chronic A. fib History of [place]\\CAD Anemia of chronic disease Hypertension Nicotine dependence Acute on chronic systolic CHF exacerbation continue diuresis with Lasix Daily weight and strict I/O h/o elevated troponins in past CXR (11/19): ordered Cardiology consulted Echo of (09/2021): EF of 42%. Echo (11/18): EF of 35%, Severe global hypokinesis Acute on chronic COPD exacerbation. nebs, prednisone wean O2 Continue home medications Pulmonology consulted added Brovana, low-dose prednisone (11/18) added Azithromycin (11/19) CKD 3B Improvement in renal function compared to levels 2 months ago. continue to monitor renal function Hyperlipidemia - Continue statin. Chronic A. fib - Continue Eliquis. History of [place]\\CAD - continue aspirin, Plavix, Eliquis and statin. Anemia of chronic disease - H&H stable. Hypertension - Stable. Continue home medications. Nicotine dependence - Patient counseled on tobacco cessation. Refuses nicotine patch. VTE: Eliquis Code: Full Dispo: senior care ~1-2 days
--- NOTE | 2022-11-19 07:34 | ECHO ---
HEIGHT: 6 ft 0 in WEIGHT: 179 lb 12.8 oz DATE OF STUDY: 11/18/[address]: Irvin Turner MD 2-DIMENSIONAL: YES M.MODE: YES DOPPLER: YES COLOR FLOW: YES TDS: NO PORTABLE: YES DEFINITY: NO BUBBLE STUDY: NO DIAGNOSIS: CONGESTIVE HEART FAILURE CARDIAC HISTORY: CATHERIZATION:YES SURGERY: YES PROSTHETIC VALVE: NO PACEMAKER: NO MEASUREMENTS (cm) DIASTOLIC (NORMALS) SYSTOLIC (NORMALS) IVSd 0.9 (0.6-1.2) LA Diam 4.0 (1.9-4.0) LVEF 35% LVIDd 6.6 (3.5-5.7) LVIDs 5.5 (2.0-3.5) %FS 17% LVPWd 1.1 (0.6-1.2) Ao Diam 2.2 (2.0-3.7) 2 DIMENSIONAL ASSESSMENT: RIGHT ATRIUM: NORMAL LEFT ATRIUM: NORMAL RIGHT VENTRICLE: NORMAL LEFT VENTRICLE: DILATED TRICUSPID VALVE: NORMAL MITRAL VALVE: MITRAL ANNULAR CALCIFICATION PULMONIC VALVE: NORMAL AORTIC VALVE: NORMAL PERICARDIAL EFFUSION: NONE AORTIC ROOT: NORMAL LEFT VENTRICULAR WALL MOTION: SEVERE GLOBAL HYPOKINESIS. DOPPLER/COLOR FLOW: MILD TRICUSPID REGURGITATION. RIGHT VENTRICULAR SYSTOLIC PRESSURE 40mmHg. COMMENTS: 1. SEVERE GLOBAL HYPOKINESIS. 2. MILD PULMONARY HYPERTENSION. 3. NO THROMBUS. TECHNOLOGIST: Yokasta CONLEY
[2022-11-19] MEDS: ARFORMOTEROL TARTRATE 15 MCG/2 ML VIAL.NEB NEB SCH ×2 (08:22→19:45)
[2022-11-19] MEDS: APIXABAN 5 MG TABLET PO SCH ×2 (09:21→20:32)
[2022-11-19] MEDS: AZITHROMYCIN 250 MG TAB PO SCH (09:21)
[2022-11-19] MEDS: predniSONE 10 MG TAB PO SCH ×2 (09:21→20:32)
[2022-11-19] MEDS: CLOPIDOGREL 75 MG TABLET PO SCH (09:21)
[2022-11-19] MEDS: FUROSEMIDE 40 MG/4 ML VIAL IV SCH ×2 (09:21→17:13)
[2022-11-19] MEDS: ASPIRIN 81 MG CHEWABLE TABLET PO SCH (09:21)
--- NOTE | 2022-11-19 11:41 | RAD REPORT ---
[facility]34 am CLINICAL HISTORY: Chest pain COMPARISON: November 17, 2022 FINDINGS: Small to moderate left pleural effusion with left basilar atelectasis without obvious [place] ge. Right pleural thickening with minimal pleural effusion unchanged Partial resolution in bilateral interstitial lung opacities. Heart remains enlarged
--- NOTE | 2022-11-19 15:59 | CON ---
Date of Consultation: 11/18/2022 Reason For Consultation: CHF. History Of Present Illness: Mr. Chow is 72. Has COPD, congestive heart failure, chronic systolic. Has paroxysmal atrial fibrillation, kidney dysfunction, dyslipidemia, hypertension, comes in with a c ombination of COPD and CHF exacerbation. Is known to have an ejection fraction that was normal back in 2021. Ejection fraction here showed an EF of between 30% to 35% with [id number] global hy pokinesis which is new for him. He came in with PND, orthopnea, pedal edema. He denied any chest pa in or syncope. Denied any fever or chills. Past Medical History: As stated above. Allergies: NONE. Review of Systems: Negative. Social History: Negative. Family History: Negative. Medications: Includes theophylline, Norvasc, aspirin, Eliquis, inhalers, Plavix, Lasix, metoprolol, steroid, and Crestor. Physical Examination: Vital Signs: Stable. Afebrile. HEENT: Negative. Neck: Supple with no bruit. Chest: Revealed rales and wheezing. Cardiac: Revealed S3 gallops. Regular rhythm and rate. No murmurs or rubs. Abdomen: Benign. Extremities: Revealed trace edema. Diagnostic Data: [place] [address], creatinine is 2.0. Troponin is 180. BNP is 2456. Chest x- ray showed CHF. Present regimen Impression And Plan: 1.New-onset systolic congestive heart failure. 2.Chronic obstructive pulmonary disease exacerbation. 3.Coronary artery disease, status post left anterior descending stent, known 100% right coronary art katya in 2021. 4.Paroxysmal atrial fibrillation, on Eliquis. 5.Renal insufficiency. 6.Elevated troponin and BNP secondary to demand ischemia. 7.Hypertension. 8.Dyslipidemia. He is on beta-blockers. He is on Crestor. He is on Lasix. He is on Plavix. He is on aspirin. He is not a candidate for KATIANA inhibitors or ARBs with his creatinine. He may be a candidate for a biven tricular pacemaker AICD, but he will need a Lexiscan first. This may be an issue with I w ill check with the office in that regard. He can go home whenever it is okay with Dr. Clements and Selena linton. I will see him in the office as an outpatient soon. SHELTON/ARTURO Voice ID: [id number] Report ID: [id number]
[2022-11-19 19:07] LABS: Specific Gravity 1.008 (1.005-1.030); Urine Bacteria None Seen /HPF (<20); Urine Bilirubin NEGATIVE (Negative); Urine Blood 1+ (Negative); Urine Clarity Clear (Clear); Urine Color Colorless (Yellow); Urine Crystals Unidentified Few /HPF (None Seen); Urine Glucose NEGATIVE (Negative); Urine Mucus Slight /HPF (None Seen); Urine Protein 1+ (Negative); Urine Urobilinogen Normal (Normal); Urine pH 5.5 (5.0-7.0)
[2022-11-20] MEDS: IPRATROPIUM BROM 0.5MG/2.5ML NEB SCH ×4 (02:05→19:10)
[2022-11-20] MEDS: ALBUTEROL 2.5 MG/3 ML NEB SOL NEB SCH ×4 (02:05→19:10)
[2022-11-20 04:01] LABS: Magnesium 2.3 mg/dL (1.6-2.4); Potassium 4.4 mEq/L (3.5-5.1)
[2022-11-20] MEDS: METOPROLOL TAR 25 MG TAB PO SCH ×2 (05:37→18:26)
--- NOTE | 2022-11-20 07:28 | P.PN ---
Date of Service: 11/20/22 Subjective: feeling better this morning breathing continues to improve slowly; feels like he could travel longer distance today before getting tired/SOB no chest pain today; cough/wheezing remains ~same no new / worsening problems ROS: 10 point ROS as noted above, otherwise negative Physical Exam: GEN: Alert, oriented, NAD HEENT: Normal conjunctiva, sclera anicteric CV: regular rate/rhythm, trace b/l pedal edema Pulm: mild labored respirations on 2L NC, moderate diffuse expiratory wheezes, mild crackles at bases bilaterally L>R ABD: Soft, nontender, nondistended Neuro: Normal speech, normal affect vitals reviewed Problem List: Acute on chronic systolic CHF exacerbation Acute on chronic COPD exacerbation CKD 3B Hyponatremia, acute; mild Hyperlipidemia Chronic A. fib History of [place]\CAD Anemia of chronic disease Hypertension Nicotine dependence Acute on chronic systolic CHF exacerbation continue diuresis with Lasix Daily weight and strict I/O h/o elevated troponins in past CXR (11/19): Partial resolution in b/l interstitial lung opacities CXR (11/20): appears slightly better, +significant wheezing and labored respirations needs further improvement before discharge Cardiology consulted Echo of (09/2021): EF of 42%. Echo (11/18): EF of 35%, Severe global hypokinesis no further inpatient testing states he feels improvement nursing report he is still quite dyspneic with short distances labored respirations at rest, and wheeze audible without stethoscope Acute on chronic COPD exacerbation. nebs wean O2 Continue home medications Pulmonology consulted added Brovana, low-dose prednisone (11/18) added Azithromycin (11/19) CKD 3B Hyponatremia Improvement in renal function compared to levels 2 months ago. continue to monitor renal function Nephrology consulted bj x1 (11/20) Hyperlipidemia - Continue statin. Chronic A. fib - Continue Eliquis. History of [place]\CAD - continue aspirin, Plavix, Eliquis and statin. Anemia of chronic disease - H&H stable. Hypertension - Stable. Continue home medications. Nicotine dependence - Patient counseled on tobacco cessation. Refuses nicotine patch. VTE: Eliquis Code: Full Dispo: longterm ~1-2 days
[2022-11-20] MEDS: ARFORMOTEROL TARTRATE 15 MCG/2 ML VIAL.NEB NEB SCH ×2 (08:03→19:10)
[2022-11-20] MEDS: predniSONE 10 MG TAB PO SCH ×2 (10:18→21:38)
[2022-11-20] MEDS: ASPIRIN 81 MG CHEWABLE TABLET PO SCH (10:18)
[2022-11-20] MEDS: FUROSEMIDE 40 MG/4 ML VIAL IV SCH ×2 (10:18→18:25)
[2022-11-20] MEDS: APIXABAN 5 MG TABLET PO SCH ×2 (10:18→21:38)
[2022-11-20] MEDS: AZITHROMYCIN 250 MG TAB PO SCH (10:19)
[2022-11-20] MEDS: CLOPIDOGREL 75 MG TABLET PO SCH (10:19)
--- NOTE | 2022-11-20 10:43 | RAD REPORT ---
[facility] 6[facility]45 am CLINICAL HISTORY: CHF COMPARISON: Chest Single View dated 11/19/2022; Chest Single View dated 11/17/2022; Chest Single View dated 06/18/2022; Chest Single View dated 06/14/2022 TECHNIQUE: Portable AP view of the chest. FINDINGS: Stable patchy central and basilar opacities with interstitial prominence. Stable bilateral pleural effusions slightly larger on the right. No pneumothorax. Stable cardiomegaly. Mediastinal Co ntours are unchanged. IMPRESSION: Stable findings as above, which may reflect CHF. Superimposed pneumonia cannot be entire ly excluded.
--- NOTE | 2022-11-20 11:28 | P.CNS ---
Date of Consult: 11/20/22 Reason for Consult: Hyponatremia/ CKD Requesting Physician: Ruslan Clements Chief Complaint: Shortness of breath History of Present Illness: Patient is a 72-year-old male with a past medical history significant for CHF, COPD, hypertension, [place], CAD with stent, nicotine dependence who presents with complaint of shortness of breath onset this morning. Patient reported associated signs and symptoms of cough, wheezing, chest tightness, nausea and diaphoresis. Patient denies any other signs and symptoms. Patient reported that he used his home nebulizers but did not experience any relief. Symptoms are aggravated or relieved by nothing. Patient decided to present to the hospital due to worsening symptoms. 13:28 This 72 yrs old Male presents to ER via EMS with complaints of Anxiety, bs3 Shortness Of Breath. 13:35 Patient reports a history of CHF COPD hypertension who developed acute difficulty bs3 breathing 2 hours prior to arrival he was given a DuoNeb at his group home with some relief but continued to have symptoms EMS gave him another breathing treatment and then he came in denies fevers or chills history is limited secondary to patient's condition and respiratory distress. Allergies No Known Allergies Allergy (Verified 06/14/22 22:26) Home medications list reviewed: Yes Home Medications: Albuterol Sulfate [Albuterol Sulfate Hfa] 1 puff IH DAILY 02/05/22 Aspirin [Aspirin EC] 81 mg PO DAILY 04/05/22 Clopidogrel Bisulfate [Plavix] 75 mg PO DAILY 04/05/22 Metoprolol Tartrate 25 mg PO BID 04/05/22 Apixaban [Eliquis] 5 mg PO BID #60 tab 04/09/22 Fluticasone/Salmeterol [Advair 250-50 Diskus] 1 each IH BID #1 kit 05/13/22 Furosemide [Lasix] 80 mg PO DAILY 06/14/22 Rosuvastatin Calcium [Crestor] 20 mg PO BEDTIME 06/14/22 Azithromycin [Zithromax] 250 mg PO DAILY 15 Days #15 tab 06/20/22 Buspirone HCl [Buspar*] 10 mg PO BID #60 tab 06/20/22 Theophylline Anhydrous [Devaughn-24] 200 mg PO BID 60 Days #60 tab 06/20/22 predniSONE [Deltasone*] 10 mg PO BID 15 Days #30 tab 06/20/22 Albuterol Neb [Proventil 0.083% Neb Soln] 2.5 mg IH Q6H PRN #120 amp 06/23/22 Amlodipine [Norvasc*] 10 mg PO DAILY #30 tab 06/23/22 Ipratropium Neb [Atrovent*] 0.5 mg NEB [id number] #120 amp 06/23/22 Nebulizer 1 each IN QID #1 kit 06/23/22 - Past Medical/Surgical History Diabetic: No -: COPD -: HTN -: CHF -: CKD followed by Dr. Roy -: CAD -: A. fib on chronic anticoagulation -: heart stent -: Heart cath evere CAD Psychosocial/ Personal History: Patient lives at home with his . - Family History Father Medical History: Heart disease Notes: Heart attack Mother Medical History: Lung disease Notes: COPd - Social History Smoking Status: Unknown if ever smoked Alcohol use: Yes CD- Drugs: No Caffeine use: Yes Place of Residence: Home Review of Systems 10-point ROS is otherwise unremarkable General: Weakness Respiratory: SOB with Excertion Physical Examination Temp Pulse Resp BP Pulse Ox 97.9 F 70 18 136/86 98 11/20/22 08:00 11/20/22 10:18 11/20/22 08:00 11/20/22 10:18 11/20/22 08:00 General: In no apparent distress, Oriented x3, Cooperative HEENT: Atraumatic Neck: Supple Respiratory: Expiratory wheezes Cardiovascular: No edema, Regular rate/rhythm Gastrointestinal: Soft and benign, Non-distended Musculoskeletal: No clubbing, No contractures Integumentary: No rashes, No cyanosis Neurological: Normal speech Blood work reviewed in the chart. Imagings Data: EXAM DESCRIPTION: RADChest Single View11/20/2022 6:45 am CLINICAL HISTORY: CHF COMPARISON: Chest Single View dated 11/19/2022; Chest Single View dated 11/17/2022; Chest Single View dated 06/18/2022; Chest Single View dated 06/14/2022 TECHNIQUE: Portable AP view of the chest. FINDINGS: Stable patchy central and basilar opacities with interstitial prominence. Stable bilateral pleural effusions slightly larger on the right. No pneumothorax. Stable cardiomegaly. Mediastinal Contours are unchanged. IMPRESSION: Stable findings as above, which may reflect CHF. Superimposed pneumonia cannot be entirely excluded. EXAM DESCRIPTION: CT - Thorax Wo Con - 11/17/2022 6:17 pm CLINICAL HISTORY: sob COMPARISON: 2021 TECHNIQUE: Computed axial tomography of the chest was obtained. Contrast was not requested. All CT scans are performed using dose optimization technique as appropriate and may include automated exposure control or mA/KV adjustment according to patient size. FINDINGS: The evaluation of mediastinum, jada and vessels is limited secondary to lack of IV contrast administration. Small to moderate left and small right pleural effusions. Fluid extends into the right major fissure. Right pleural thickening is present. Left lower lobe atelectasis Mild bilateral interstitial lung opacities. Mild mediastinal lymphadenopathy likely reactive in nature. Coronary arterial calcifications. IMPRESSION: Small to moderate left pleural effusion with left lower lobe atelectasis Mild bilateral interstitial lung opacities may represent mild interstitial pulmonary edema COPD LEFT VENTRICULAR WALL MOTION: SEVERE GLOBAL HYPOKINESIS. DOPPLER/COLOR FLOW: MILD TRICUSPID REGURGITATION. RIGHT VENTRICULAR SYSTOLIC PRESSURE 40mmHg. COMMENTS: 1. SEVERE GLOBAL HYPOKINESIS. 2. MILD PULMONARY HYPERTENSION. 3. NO THROMBUS. Conclusions/Impression: CKD IIIb -No NSAIDs Hypervolemic Hyponatremia -Tolvaptan X1 HTN with CKD/ CHF -Continue Metoprolol Systolic CHF, A/C -Continue Lasix Anemia in chronic illness -Monitor H&H Case reviewed with Dr. Clements Thank you kindly for the consultation
[2022-11-21] MEDS: ALBUTEROL 2.5 MG/3 ML NEB SOL NEB SCH ×4 (01:05→19:35)
[2022-11-21] MEDS: IPRATROPIUM BROM 0.5MG/2.5ML NEB SCH ×4 (01:05→19:35)
[2022-11-21 04:31] LABS: Albumin 3.2 g/dL (3.4-5.0); Magnesium 2.3 mg/dL (1.6-2.4); Phosphorus 3.5 mg/dL (2.5-4.9); Potassium 4.3 mEq/L (3.5-5.1)
[2022-11-21] MEDS: METOPROLOL TAR 25 MG TAB PO SCH ×2 (06:15→17:01)
--- NOTE | 2022-11-21 07:36 | P.PN ---
Date of Service: 11/21/22 Subjective: Feeling better today breathing feels slightly better sodium slowly down trending low 130s/high 120s had one episode of A-fib with RVR rate up to 149 for less than 10 sec while laying down yesterday per nurse asking for pureed diet on account of his missing teeth making it hard to eat current diet required assistance getting up from bed yesterday, loss of balance ROS: 10 point ROS as noted above, otherwise negative Physical Exam: GEN: Alert, oriented, NAD HEENT: Normal conjunctiva, sclera anicteric CV: regular rate/rhythm, trace b/l pedal edema Pulm: mild labored respirations on 2L NC, mild diffuse expiratory wheezes, mild crackles ABD: Soft, nontender, nondistended Neuro: Normal speech, normal affect vitals reviewed Problem List: Acute on chronic systolic CHF exacerbation Acute on chronic COPD exacerbation CKD 3B Hyponatremia, acute; mild Hyperlipidemia Chronic A. fib History of [place]\CAD Anemia of chronic disease Hypertension Nicotine dependence Acute on chronic systolic CHF exacerbation continue diuresis with Lasix Daily weight and strict I/O h/o elevated troponins in past CXR (11/19): Partial resolution in b/l interstitial lung opacities CXR (11/20): appears slightly better, +significant wheezing and labored respirations needs further improvement before discharge Cardiology consulted Echo of (09/2021): EF of 42%. 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 nebs, wean O2 Continue home medications Pulmonology consulted added Brovana, low-dose prednisone (11/18) added Azithromycin (11/19) CKD 3B Hyponatremia Improvement in renal function compared to levels 2 months ago. continue to monitor renal function Na downtrending, urine studies ordered Nephrology consulted - orderd tolvaptan Hyperlipidemia - Continue statin. Chronic A. fib - Continue Eliquis. had one episode of A-fib with RVR rate up to 149 for less than 10 sec while laying down 11/20 History of [place]\CAD - continue aspirin, Plavix, Eliquis and statin. Anemia of chronic disease - H&H stable. Hypertension - Stable. Continue home medications. Nicotine dependence - Patient counseled on tobacco cessation. Refuses nicotine patch. VTE: Eliquis Code: Full Dispo: [facility] ~1-2 days
[2022-11-21] MEDS: ARFORMOTEROL TARTRATE 15 MCG/2 ML VIAL.NEB NEB SCH ×2 (07:47→19:35)
[2022-11-21 09:15] LABS: Specific Gravity 1.013 (1.005-1.030); Urine Bacteria <20 /HPF (<20); Urine Bilirubin NEGATIVE (Negative); Urine Blood 3+ (Negative); Urine Clarity Clear (Clear); Urine Color Light-Yellow (Yellow); Urine Glucose NEGATIVE (Negative); Urine Mucus Slight /HPF (None Seen); Urine Protein 3+ (Negative); Urine Urobilinogen Normal (Normal)
[2022-11-21 09:46] LABS: UR CL RANDOM < 10 mmol/L (25-40); UR SODIUM 15 mmol/L (27-287)
[2022-11-21] MEDS: AZITHROMYCIN 250 MG TAB PO SCH (10:57)
[2022-11-21] MEDS: CLOPIDOGREL 75 MG TABLET PO SCH (10:57)
[2022-11-21] MEDS: predniSONE 10 MG TAB PO SCH ×2 (10:57→21:21)
[2022-11-21] MEDS: ASPIRIN 81 MG CHEWABLE TABLET PO SCH (10:57)
[2022-11-21] MEDS: APIXABAN 5 MG TABLET PO SCH ×2 (10:57→21:21)
[2022-11-21] MEDS: FUROSEMIDE 40 MG/4 ML VIAL IV SCH ×2 (10:57→16:59)
[2022-11-21] MEDS: UREA 15 GM POWDER PACKET PO SCH (10:58)
[2022-11-22] MEDS: IPRATROPIUM BROM 0.5MG/2.5ML NEB SCH ×4 (01:05→19:45)
[2022-11-22] MEDS: ALBUTEROL 2.5 MG/3 ML NEB SOL NEB SCH ×4 (01:05→19:45)
[2022-11-22 04:16] LABS: Absolute Lymphocytes (CBC) 0.6 K/uL (0.7-4.9); Hematocrit 32.1 % (39.6-49.0); Lymphocytes % 5.8 % (15.3-44.8); MCV 89.5 fL (80-100); MPV 9.1 fL (7.6-11.3); RBC Red Blood Cell Count 3.59 M/uL (4.33-5.43)
[2022-11-22 04:41] LABS: Magnesium 2.3 mg/dL (1.6-2.4); Potassium 4.1 mEq/L (3.5-5.1)
[2022-11-22] MEDS: METOPROLOL TAR 25 MG TAB PO SCH ×2 (06:40→17:18)
--- NOTE | 2022-11-22 07:29 | P.PN ---
Date of Service: 11/22/22 Subjective: yesterday with 30 beat run of vtach Feeling good today feels like hes slightly improving day by day sodium levels slightly improved no chest pain otherwise no new / worsening problems ROS: 10 point ROS as noted above, otherwise negative Physical Exam: GEN: Alert, oriented, NAD HEENT: Normal conjunctiva, sclera anicteric CV: regular rate/rhythm, trace b/l pedal edema Pulm: mild labored respirations on 2L NC, b/l crackles ABD: Soft, nontender, nondistended Neuro: Normal speech, normal affect vitals reviewed Problem List: Acute on chronic systolic CHF exacerbation Acute on chronic COPD exacerbation CKD 3B Hyponatremia, acute; mild Hyperlipidemia Chronic A. fib History of [place]\CAD Anemia of chronic disease Hypertension Nicotine dependence Acute on chronic systolic CHF exacerbation continue diuresis with Lasix Daily weight and strict I/O h/o elevated troponins in past CXR (11/19): Partial resolution in b/l interstitial lung opacities CXR (11/20): appears slightly better, +significant wheezing and labored respirations needs further improvement before discharge Cardiology consulted Echo of (09/2021): EF of 42%. 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 nebs, wean O2 Continue home medications Pulmonology consulted added Brovana, low-dose prednisone (11/18) added Azithromycin (11/19) CKD 3B Hyponatremia Improvement in renal function compared to levels 2 months ago. continue to monitor renal function Na downtrending, urine studies ordered Nephrology consulted - orderd tolvaptan Hyperlipidemia - Continue statin. Chronic A. fib - Continue Eliquis. had one episode of A-fib with RVR rate up to 149 for less than 10 sec while laying down (11/20) History of [place]\CAD - continue aspirin, Plavix, Eliquis and statin. Anemia of chronic disease - H&H stable. Hypertension - Stable. Continue home medications. Nicotine dependence - Patient counseled on tobacco cessation. Refuses nicotine patch. VTE: Eliquis Code: Full Dispo: long-term ~1 days pending further improvement of Na, breathing, and discussion with cardiology
[2022-11-22] MEDS: ARFORMOTEROL TARTRATE 15 MCG/2 ML VIAL.NEB NEB SCH ×2 (08:00→19:45)
[2022-11-22] MEDS: UREA 15 GM POWDER PACKET PO SCH (09:00)
[2022-11-22] MEDS: FUROSEMIDE 40 MG/4 ML VIAL IV SCH ×2 (10:06→17:17)
[2022-11-22] MEDS: AZITHROMYCIN 250 MG TAB PO SCH (10:07)
[2022-11-22] MEDS: ASPIRIN 81 MG CHEWABLE TABLET PO SCH (10:07)
[2022-11-22] MEDS: APIXABAN 5 MG TABLET PO SCH ×2 (10:07→21:23)
[2022-11-22] MEDS: CLOPIDOGREL 75 MG TABLET PO SCH (10:07)
[2022-11-22] MEDS: predniSONE 10 MG TAB PO SCH ×2 (10:07→21:23)
[2022-11-23] MEDS: IPRATROPIUM BROM 0.5MG/2.5ML NEB SCH ×4 (02:00→20:20)
[2022-11-23] MEDS: ALBUTEROL 2.5 MG/3 ML NEB SOL NEB SCH ×4 (02:00→20:20)
[2022-11-23] MEDS: METOPROLOL TAR 25 MG TAB PO SCH ×2 (06:12→17:06)
[2022-11-23] MEDS: ARFORMOTEROL TARTRATE 15 MCG/2 ML VIAL.NEB NEB SCH ×2 (08:21→20:20)
[2022-11-23] MEDS: ASPIRIN 81 MG CHEWABLE TABLET PO SCH (09:27)
[2022-11-23] MEDS: FUROSEMIDE 40 MG/4 ML VIAL IV SCH ×2 (09:27→17:06)
[2022-11-23] MEDS: predniSONE 10 MG TAB PO SCH ×2 (09:27→21:13)
[2022-11-23] MEDS: CLOPIDOGREL 75 MG TABLET PO SCH (09:27)
[2022-11-23] MEDS: AZITHROMYCIN 250 MG TAB PO SCH (09:27)
[2022-11-23] MEDS: APIXABAN 5 MG TABLET PO SCH ×2 (09:27→21:13)
[2022-11-23] MEDS: UREA 15 GM POWDER PACKET PO SCH (09:27)
[2022-11-23] MEDS: AMIODARONE HCL 200 MG TAB PO SCH ×2 (14:25→21:13)
--- NOTE | 2022-11-23 17:37 | P.PN ---
Subjective Date of Service: 11/23/22 Chief Complaint: Shortness of breath Patient has no new complain. His telemetry has been reading intermittent runs of V. tach. Patient denies any chest pain or shortness of breath. Physical Examination - Vital Signs Temperature: 97.9 F Blood Pressure: 139/75 Pulse: 76 Respirations: 16 Pulse Ox (%): 98 - Studies Microbiology Data (last 24 hrs): 11/17/22 14:15 Blood - Blood Aerobic Blood Culture - Final No growth in 5 days. 11/17/22 14:15 Blood - Blood Anaerobic Blood Culture - Final No growth in 5 days. 11/17/22 14:00 Blood - Blood Aerobic Blood Culture - Final No growth in 5 days. 11/17/22 14:00 Blood - Blood Anaerobic Blood Culture - Final No growth in 5 days. Assessment And Plan - Plan Physical Exam: GEN: Alert, oriented, NAD HEENT: Normal conjunctiva, sclera anicteric CV: regular rate/rhythm, trace b/l pedal edema Pulm: Bibasilar crackles, adequate breath sounds bilaterally. ABD: Soft, nontender, nondistended Neuro: Normal speech, normal affect vitals reviewed Diagnosis Acute on chronic systolic CHF exacerbation Acute on chronic COPD exacerbation CKD 3B Hyponatremia, acute; mild Hyperlipidemia Chronic A. fib History of [place]\CAD Anemia of chronic disease Hypertension Nicotine dependence Acute on chronic systolic CHF exacerbation continue diuresis with Lasix Daily weight and strict I/O h/o elevated troponins in past CXR (11/19): Partial resolution in b/l interstitial lung opacities Cardiology consulted Echo of (09/2021): EF of 42%. Echo (11/18): EF of 35%, Severe global hypokinesis no further inpatient testing 11/21 - had 30 beat run of vtach. Case discussed with cardiology-Dr. Turner recommend outpatient evaluation for AICD placed. In the meantime placed the patient on amiodarone 400 mg twice daily for 7 days, followed by 200 mg daily. Patient started on amiodarone. Continue PT. Acute on chronic COPD exacerbation. nebs, wean O2 Continue home medications Pulmonology consulted Continue Brovana, low-dose prednisone (11/18) Continue azithromycin (11/19) Respiratory status has improved. CKD 3B Hyponatremia Improvement in renal function compared to levels 2 months ago. Renal function continues to improve along with improvement in serum sodium. continue to monitor renal function Status post tolvaptan. Patient is also being treated with urea. Hyperlipidemia - Continue statin. Chronic A. fib - Continue Eliquis. History of [place]\CAD - continue aspirin, Plavix, Eliquis and statin. Anemia of chronic disease - H&H stable. Hypertension - Stable. Continue home medications. Nicotine dependence - Patient counseled on tobacco cessation. VTE: Eliquis Code: Full Dispo: [facility] 1 more day.
[2022-11-23] MEDS: ENSURE HIGH PROTEIN 237 ML CAN PO SCH (21:00)
[2022-11-24] MEDS: IPRATROPIUM BROM 0.5MG/2.5ML NEB SCH ×2 (02:00→08:40)
[2022-11-24] MEDS: ALBUTEROL 2.5 MG/3 ML NEB SOL NEB SCH ×2 (02:00→08:40)
[2022-11-24 06:11] LABS: Absolute Lymphocytes (CBC) 0.5 K/uL (0.7-4.9); Hematocrit 34.4 % (39.6-49.0); MCV 89.7 fL (80-100); RBC Red Blood Cell Count 3.83 M/uL (4.33-5.43)
[2022-11-24 06:30] LABS: Potassium 4.1 mEq/L (3.5-5.1)
[2022-11-24] MEDS: METOPROLOL TAR 25 MG TAB PO SCH (06:33)
[2022-11-24] MEDS: APIXABAN 5 MG TABLET PO SCH (08:37)
[2022-11-24] MEDS: AMIODARONE HCL 200 MG TAB PO SCH (08:38)
[2022-11-24] MEDS: AZITHROMYCIN 250 MG TAB PO SCH (08:38)
[2022-11-24] MEDS: ASPIRIN 81 MG CHEWABLE TABLET PO SCH (08:38)
[2022-11-24] MEDS: CLOPIDOGREL 75 MG TABLET PO SCH (08:38)
[2022-11-24] MEDS: predniSONE 10 MG TAB PO SCH (08:38)
[2022-11-24] MEDS: FUROSEMIDE 40 MG/4 ML VIAL IV SCH (08:38)
[2022-11-24] MEDS: UREA 15 GM POWDER PACKET PO SCH (08:38)
[2022-11-24] MEDS: ENSURE HIGH PROTEIN 237 ML CAN PO SCH (08:39)
[2022-11-24] MEDS: ARFORMOTEROL TARTRATE 15 MCG/2 ML VIAL.NEB NEB SCH (08:40)
--- NOTE | 2022-11-24 10:34 | P.DS ---
Admission Date: 11/17/22 Discharge Date: 11/24/22 Disposition: TRANSFER TO [facility] Discharge Condition: FAIR Reason for Admission: Shortness of breath Brief History of Present Illness: Patient is a 72-year-old male with a past medical history significant for CHF, COPD, hypertension, [place], CAD with stent, nicotine dependence who presents with complaint of shortness of breath onset this morning. Patient reported associated signs and symptoms of cough, wheezing, chest tightness, nausea and diaphoresis. Patient reported that he used his home nebulizers but did not experience any relief. Symptoms are aggravated or relieved by nothing. Patient decided to present to the hospital due to worsening symptoms. Chest CT in the ED reported small to moderate left pleural effusion with left lower lobe atelectasis, mild bilateral interstitial lung opacities may represent mild interstitial pulmonary edema. Patient was hospitalized for further management. Hospital Course: Diagnosis Acute on chronic systolic CHF exacerbation Acute on chronic COPD exacerbation CKD 3B Hyponatremia, acute; mild Hyperlipidemia Chronic A. fib History of [place]\CAD Anemia of chronic disease Hypertension Nicotine dependence The following medical problems were addressed during the hospital stay: Acute on chronic systolic CHF exacerbation Patient diuresis with Lasix Daily weight and strict I/O h/o elevated troponins in past CXR (11/19): Partial resolution in b/l interstitial lung opacities Cardiology consulted Echo of (09/2021): EF of 42%. Echo (11/18): EF of 35%, Severe global hypokinesis no further inpatient testing 11/21 - had 30 beat run of vtach. Case discussed with cardiology-Dr. Turner recommend outpatient evaluation for AICD placement. In the meantime placed the patient on amiodarone 400 mg twice daily for 7 days, followed by [address] Turner recommendation. Dr. Turner recommend patient to see an youth officer Patient will need arrangements to see an youth officer in [place] to evaluate him for AICD placement. I called Dr. Helms's office and was told he is no longer a patient of Dr. Helms. Acute on chronic COPD exacerbation. Treated with neb, steroid. Continue home medications Pulmonology consulted Patient treated with Brovana, low-dose prednisone (11/18) Continued azithromycin (11/19) Respiratory status has improved. CKD 3B Hyponatremia Improvement in renal function compared to levels 2 months ago. Renal function continues to improve along with improvement in serum sodium. Status post tolvaptan. Patient also treated with urea. Hyperlipidemia - Continued statin. Chronic A. fib - Continued Eliquis. History of [place]\CAD - continued aspirin, Plavix, Eliquis and statin. Anemia of chronic disease - H&H stable. Hypertension - Stable. Continued home medications. Nicotine dependence - Patient counseled on tobacco cessation. Vital Signs/Physical Exam: Temp Pulse Resp BP Pulse Ox 97.7 F 66 20 134/84 98 11/24/22 07:57 11/24/22 08:38 11/24/22 07:57 11/24/22 08:38 11/24/22 07:57 General: Alert, In no apparent distress, Oriented x3 HEENT: Mucous membr. moist/pink Neck: JVD not distended Respiratory: Clear to auscultation bilaterally, Normal air movement Cardiovascular: Normal S1 S2, Irregular heart rate/rhythm Gastrointestinal: Soft and benign, Non-distended Musculoskeletal: No swelling Integumentary: No cyanosis Neurological: Normal strength at 5/5 x4 extr Laboratory Data at Discharge: WBC 11.60 thou/uL (4.3-10.9) H 11/24/22 05:41 Hgb 11.1 g/dL (13.6-17.9) L 11/24/22 05:41 Hct 34.4 % (39.6-49.0) L 11/24/22 05:41 Plt Count 206 thou/uL (152-406) 11/24/22 05:41 PT 15.1 SECONDS (9.5-12.5) H 11/17/22 14:44 INR 1.37 11/17/22 14:44 APTT 29.4 SECONDS (24.3-36.9) 11/17/22 14:44 Sodium 134 mEq/L (136-145) L 11/24/22 05:41 Potassium 4.1 mEq/L (3.5-5.1) 11/24/22 05:41 BUN 83 mg/dL (7-18) H 11/24/22 05:41 Creatinine 1.90 mg/dL (0.70-1.30) H 11/24/22 05:41 Glucose 152 mg/dL (74-106) H 11/24/22 05:41 Phosphorus 3.5 mg/dL (2.5-4.9) 11/21/22 03:23 Magnesium 2.3 mg/dL (1.6-2.4) 11/22/22 03:32 Total Bilirubin 0.4 mg/dL (0.2-1.0) 11/17/22 14:44 AST 23 U/L (15-37) 11/17/22 14:44 ALT 19 U/L (16-61) 11/17/22 14:44 Alkaline Phosphatase 117 U/L (45-117) 11/17/22 14:44 Home Medications: Albuterol Sulfate [Albuterol Sulfate Hfa] 1 puff IH DAILY 02/05/22 Aspirin [Aspirin EC] 81 mg PO DAILY 04/05/22 Clopidogrel Bisulfate [Plavix] 75 mg PO DAILY 04/05/22 Metoprolol Tartrate 25 mg PO BID 04/05/22 Apixaban [Eliquis] 5 mg PO BID #60 tab 04/09/22 Fluticasone/Salmeterol [Advair 250-50 Diskus] 1 each IH BID #1 kit 05/13/22 Furosemide [Lasix] 80 mg PO DAILY 06/14/22 Rosuvastatin Calcium [Crestor] 20 mg PO BEDTIME 06/14/22 Buspirone HCl [Buspar*] 10 mg PO BID #60 tab 06/20/22 Theophylline Anhydrous [Devaughn-24] 200 mg PO BID 60 Days #60 tab 06/20/22 Albuterol Neb [Proventil 0.083% Neb Soln] 2.5 mg IH Q6H PRN #120 amp 06/23/22 Amlodipine [Norvasc*] 10 mg PO DAILY #30 tab 06/23/22 Ipratropium Neb [Atrovent*] 0.5 mg NEB [id number] #120 amp 06/23/22 Nebulizer 1 each IN QID #1 kit 06/23/22 Amiodarone HCl [Cordarone*] 400 mg PO BID tab 11/24/22 Urea [Ure-Na] 30 gm PO DAILY #30 packet 11/24/22 predniSONE [Deltasone*] 10 mg PO BID #10 tab 11/24/22 Physician Discharge Instructions: You need to follow up with [facility] for arrangement for a defibrillator placement. Followup: CASSIUS HELMS [UNKNOWN] - 1-2 Weeks NONE,NONE [Primary Care Provider] - Time spent managing pt's care (in minutes): 40
[2022-11-24 12:05] VITALS: BMI 21.2
[2022-11-24 12:09] LABS: SARS-CoV-2 Antigen Rapid Res Negative (Negative)
--- NOTE | 2022-11-24 12:19 | P.PN ---
Nephrology note: (S) Pt denies any active resp distress, stable on LFNC, plan for discharge and discharge meds discussed with Dr. Jenkins General: Alert, In no apparent distress, Oriented x3 HEENT: Atraumatic, Normocephalic, PERRLA, EOMI Neck: Supple Respiratory: Other (Poor air entry, non tachypnec) Cardiovascular: No edema, Regular rate/rhythm Gastrointestinal: Soft and benign, Non-distended, No tenderness Musculoskeletal: No swelling, No contractures, No erythema Integumentary: No rashes, Other (xerosis) Neurological: Normal speech, Normal strength at 5/5 x4 extr, Normal tone, Normal affect Conclusions/Impression: -Recurrent MEHREEN episodes over the past year, underlying CKD Stage IIIb. Renal function stable overall. Azotemia worse on steroids, hold Ure-Na. -Na level stable and > 130, monitor on chronic loop diuretic therapy -Diuretic dose on admission increased from home dose, send home on Lasix 40 mg PO BID. -Add back Spironolactone, K levels have been ok. -Pt with (chronic) troponin leak, f/u Cardiology reccs -Cont to hold ACEi/MICHELLE inhibitors at this time, low dose Entresto could be considered if renal function remains stable as an OP and if Cardiology feels pt would benefit from it -Monitor BP closely -F/u with Dr. Roy as OP Yossi Fiore MD, ÁNGEL
[2022-11-24 12:58] VITALS: BP 133/96; TEMP 98.2
[2022-11-24 15:50] VITALS: O2SAT 99
--- NOTE | 2022-11-24 20:23 | P.PN ---
Date of Service: 11/23/22 Vital Signs Temp Pulse Resp BP Pulse Ox 98.2 F 64 20 133/96 H 94 11/24/22 12:00 11/24/22 12:00 11/24/22 12:00 11/24/22 12:00 11/24/22 12:00 Microbiology Results 11/17/22 14:15 Blood - Blood Aerobic Blood Culture - Final No growth in 5 days. 11/17/22 14:15 Blood - Blood Anaerobic Blood Culture - Final No growth in 5 days. 11/17/22 14:00 Blood - Blood Aerobic Blood Culture - Final No growth in 5 days. 11/17/22 14:00 Blood - Blood Anaerobic Blood Culture - Final No growth in 5 days. Assessment/ Plan: Nephrology Dyspnea improving No chest pain No acute events overnight Vitals, medications, blood work and imaging reviewed in the chart. General: In no apparent distress, Oriented x3, Cooperative HEENT: Atraumatic Neck: Supple Respiratory: Expiratory wheezes Cardiovascular: No edema, Regular rate/rhythm Gastrointestinal: Soft and benign, Non-distended Musculoskeletal: No clubbing, No contractures Integumentary: No rashes, No cyanosis Neurological: Normal speech Blood work reviewed in the chart. Imagings Data: [facility] CLINICAL HISTORY: CHF COMPARISON: Chest Single View dated 11/19/2022; Chest Single View dated 11/17/2022; Chest Single View dated 06/18/2022; Chest Single View dated 06/14/2022 TECHNIQUE: Portable AP view of the chest. FINDINGS: Stable patchy central and basilar opacities with interstitial prominence. Stable bilateral pleural effusions slightly larger on the right. No pneumothorax. Stable cardiomegaly. Mediastinal Contours are unchanged. IMPRESSION: Stable findings as above, which may reflect CHF. Superimposed pneumonia cannot be entirely excluded. EXAM DESCRIPTION: CT - Thorax Wo Con - 11/17/2022 6:17 pm CLINICAL HISTORY: sob COMPARISON: 2021 TECHNIQUE: Computed axial tomography of the chest was obtained. Contrast was not requested. All CT scans are performed using dose optimization technique as appropriate and may include automated exposure control or mA/KV adjustment according to patient size. FINDINGS: The evaluation of mediastinum, jada and vessels is limited secondary to lack of IV contrast administration. Small to moderate left and small right pleural effusions. Fluid extends into the right major fissure. Right pleural thickening is present. Left lower lobe atelectasis Mild bilateral interstitial lung opacities. Mild mediastinal lymphadenopathy likely reactive in nature. Coronary arterial calcifications. IMPRESSION: Small to moderate left pleural effusion with left lower lobe atelectasis Mild bilateral interstitial lung opacities may represent mild interstitial pulmonary edema COPD LEFT VENTRICULAR WALL MOTION: SEVERE GLOBAL HYPOKINESIS. DOPPLER/COLOR FLOW: MILD TRICUSPID REGURGITATION. RIGHT VENTRICULAR SYSTOLIC PRESSURE 40mmHg. COMMENTS: 1. SEVERE GLOBAL HYPOKINESIS. 2. MILD PULMONARY HYPERTENSION. 3. NO THROMBUS. Conclusions/Impression: CKD IIIb -No NSAIDs Hypervolemic Hyponatremia -Continue Ure-na HTN with CKD/ CHF -Continue Metoprolol Systolic CHF, A/C -Continue Lasix Anemia in chronic illness -Monitor H&H
== END 2022-11-24 13:31 | DRG 291 ==
LOC: ER 13:20 → ERHOLD 17:16 → 4TH 19:24
PROVIDERS: ADMIT Hospitalist; ATTEND Internal Medicine
DX: I13.0 Hypertensive heart and chronic kidney disease with heart failure and stage 1 through stage 4 chronic kidney disease, or unspecified chronic kidney disease (principal); I50.23 Acute on chronic systolic (congestive) heart failure; J44.1 Chronic obstructive pulmonary disease with (acute) exacerbation; I24.8 Other forms of acute ischemic heart disease; E87.1 Hypo-osmolality and hyponatremia; I47.20 Ventricular tachycardia, unspecified; N18.32 Chronic kidney disease, stage 3b; D63.1 Anemia in chronic kidney disease; I48.0 Paroxysmal atrial fibrillation; F41.9 Anxiety disorder, unspecified; N28.9 Disorder of kidney and ureter, unspecified; E78.5 Hyperlipidemia, unspecified; I25.10 Atherosclerotic heart disease of native coronary artery without angina pectoris; F17.210 Nicotine dependence, cigarettes, uncomplicated; I25.2 Old myocardial infarction; R77.8 Other specified abnormalities of plasma proteins; Z71.6 Tobacco abuse counseling; Z95.5 Presence of coronary angioplasty implant and graft; Z79.82 Long term (current) use of aspirin; Z79.02 Long term (current) use of antithrombotics/antiplatelets; Z79.52 Long term (current) use of systemic steroids; Z79.01 Long term (current) use of anticoagulants; Z79.899 Other long term (current) drug therapy; Z20.822 Contact with and (suspected) exposure to COVID-19
CPT/HCPCS: 36415; 71045; 71250; 80048; 80053; 80069; 81001; 82435; 82570; 83605; 83735; 83880; 83935; 84100; 84132; 84300; 84484; 85025; 85610; 85730; 87040; 87811; 93005; 93306; 94640; 96365; 96366; 96368; 96375; 97116; 97161; 99285; J0696; J1940; J2405; J2920; J7040; J7050; J7512; J7605; J7613; J7644

== ENCOUNTER 2022-11-25 08:17 | Inpatient (IN) | payer MEDICARE ==
[2022-11-25] MEDS ORDERED: NA CHLORIDE 0.9% 1,000 ML ONE (08:39)
[2022-11-25] MEDS ORDERED: ALBUTEROL 2.5 MG/3 ML NEB SOL ONE ×2 (08:39→11:43)
[2022-11-25] MEDS ORDERED: METHYLPREDNISOLONE 125 MG INJ ONE (08:39)
[2022-11-25 08:53] LABS: Absolute Lymphocytes (CBC) 0.9 K/uL (0.7-4.9); Hematocrit 37.3 % (39.6-49.0); Lymphocytes % 5.4 % (15.3-44.8); MCV 90.3 fL (80-100); MPV 8.8 fL (7.6-11.3); RBC Red Blood Cell Count 4.14 M/uL (4.33-5.43)
--- NOTE | 2022-11-25 09:01 | RAD REPORT ---
EXAM DESCRIPTION: RAD - Chest Single View - 11/25/2022 8:50 am CLINICAL HISTORY: COPD COMPARISON: Chest Single View dated 11/20/2022; Chest Single View dated 11/19/2022; Chest Single View dated 11/17/2022; Chest Single View dated 06/18/2022; Thorax Wo Con dated 11/17/2022 FINDINGS: Lines: None. Lungs: Widespread interstitial and airspace disease which appears worsened on the left lung Pleural: Moderate left and small right effusion. Cardiac: Cardiomegaly. Mediastinum: Within normal limits. Bones: No acute fractures. Other: None IMPRESSION: Worsened aeration lungs compared with 11/20/2022 which could reflect either increasing e luis antonio and/or progressive infection.
[2022-11-25 11:00] LABS: Protime INR 1.36
[2022-11-25] MEDS ORDERED: NA CHLORIDE 0.9% 100 ML ONE (11:15)
[2022-11-25] MEDS ORDERED: CEFEPIME 1 GM/VIAL ONE (11:15)
[2022-11-25 11:34] LABS: Albumin 3.1 g/dL (3.4-5.0); Bilirubin Direct 0.2 mg/dL (0-0.2); Bilirubin Indirect, Calculated 0.5 mg/dL (0.2-0.8); Bilirubin Total 0.7 mg/dL (0.2-1.0); Magnesium 2.7 mg/dL (1.6-2.4); Potassium 3.9 mEq/L (3.5-5.1); Protein, Total 6.4 g/dL (6.4-8.2)
[2022-11-25 11:39] LABS: Troponin High Sensitivity 176.3 pg/mL (<58.9)
--- NOTE | 2022-11-25 12:03 | P.HP ---
Certification for Inpatient Patient admitted to: Inpatient With expected LOS: >2 Midnights Patient will require the following post-hospital care: None Practitioner: I am a practitioner with admitting privileges, knowledge of patient current condition, hospital course, and medical plan of care. Services: Services provided to patient in accordance with Admission requirements found in Title 42 Section 412.3 of the Code of Federal Regulations Patient History Date of Service: 11/25/22 Reason for admission: Pneumonia, CHF exacerbation History of Present Illness: Service was provided via video visit/Tele-Medicine. For that reason, no physical examination was performed. Verbal consent was obtained prior to visit. Mr. Gabo Chow is a pleasant 72 year old male with a past medical history significant for chronic obstructive pulmonary disease, paroxysmal atrial fibrillation, chronic systolic congestive heart failure, coronary artery disease, hypertension, and chronic kidney disease stage III who presented to the [facility] Emergency Department for shortness of breath. He was recently admitted for an acute COPD and CHF exacerbation from 11/17/2022 to 11/24/2022. Please refer to Dr. Jenkins's discharge summary for further information. He reports that, since discharge, he has developed progressively worsening shortness of breath. He states that this has been associated with a dry cough and wheezing. He denies any obvious inciting or alleviating factors. He has not tried taking any medications for his symptoms. On review of systems, he denies any fevers, chills, headaches, dizziness, syncope, chest pain, palpitations, abdominal pain, nausea/vomiting, diarrhea, constipation, or any other symptoms. He presents today for further evaluation. Upon presentation, his vital signs were notable for a heart rate up to 98 breaths/min. His laboratory studies were notable for a WBC count of 17,000, a creatinine of 2.12 (near baseline), an initial troponin of 176.3, and an NT-Pro BNP of 36,672. Blood cultures x 2 were obtained. His EKG was without STEMI criteria. His chest x-ray revealed, "worsened aeration lungs compared with 11/20/2022 which could reflect either increasing edema and/or progressive infection." In the Emergency Department, he was given albuterol, cefepime, and methylprednisolone. He was admitted to the General Internal Medicine Service under Dr. Jenkins for further evaluation. Allergies No Known Allergies Allergy (Verified 06/14/22 22:26) Home medications list reviewed: Yes Home Medications: Albuterol Sulfate [Albuterol Sulfate Hfa] 1 puff IH DAILY 02/05/22 Aspirin [Aspirin EC] 81 mg PO DAILY 04/05/22 Clopidogrel Bisulfate [Plavix] 75 mg PO DAILY 04/05/22 Metoprolol Tartrate 25 mg PO BID 04/05/22 Apixaban [Eliquis] 5 mg PO BID #60 tab 04/09/22 Fluticasone/Salmeterol [Advair 250-50 Diskus] 1 each IH BID #1 kit 05/13/22 Furosemide [Lasix] 80 mg PO DAILY 06/14/22 Rosuvastatin Calcium [Crestor] 20 mg PO BEDTIME 06/14/22 Buspirone HCl [Buspar*] 10 mg PO BID #60 tab 06/20/22 Theophylline Anhydrous [Devaughn-24] 200 mg PO BID 60 Days #60 tab 06/20/22 Albuterol Neb [Proventil 0.083% Neb Soln] 2.5 mg IH Q6H PRN #120 amp 06/23/22 Amlodipine [Norvasc*] 10 mg PO DAILY #30 tab 06/23/22 Ipratropium Neb [Atrovent*] 0.5 mg NEB [id number] #120 amp 06/23/22 Nebulizer 1 each IN QID #1 kit 06/23/22 Amiodarone HCl [Cordarone*] 400 mg PO BID tab 11/24/22 Urea [Ure-Na] 30 gm PO DAILY #30 packet 11/24/22 predniSONE [Deltasone*] 10 mg PO BID #10 tab 11/24/22 - Past Medical/Surgical History Diabetic: No -: HTN -: COPD -: HTN -: CHF -: CKD followed by Dr. Roy -: CAD -: A. fib on chronic anticoagulation -: heart stent -: Heart cath ever CAD Psychosocial/ Personal History: Patient lives at home with his . - Family History Father -: Heart disease Notes: Heart attack Mother -: Lung disease Notes: COPd - Social History Smoking Status: Light Tobacco smoker (1-9 cigarettes/day) Alcohol use: Yes CD- Drugs: No Caffeine use: Yes Review of Systems General: Unremarkable Eyes: Unremarkable ENT: Unremarkable Respiratory: Cough, Dry, Shortness of Breath, Wheezing Cardiovascular: Unremarkable Gastrointestinal: Unremarkable Genitourinary: Unremarkable Musculoskeletal: Unremarkable Integumentary: Unremarkable Neurological: Unremarkable Lymphatics: Unremarkable Physical Examination - Vital Signs Temperature: 98.0 F Blood Pressure: 121/74 Pulse: 64 Respirations: 18 Pulse Ox (%): 94 (2 L) - Physical Exam General: Alert, In no apparent distress, Oriented x3 HEENT: Atraumatic, Sclerae nonicteric Cardiovascular: Edema (trace BLE, noted on camera) Neurological: Normal speech, Normal affect - Studies Laboratory Data (last 24 hrs) 11/25/22 10:44: PT 15.0 H, INR 1.36 11/25/22 10:44: Sodium 136, Potassium 3.9, BUN 83 H, Creatinine 2.12 H, Glucose 133 H, Magnesium 2.7 H, Total Bilirubin 0.7, AST 15, ALT 22, Alkaline Phosph atase 92 11/25/22 08:35: WBC 17.00 H, Hgb 12.1 L D, Hct 37.3 L, Plt Count 263 D Assessment and Plan - Plan # Acute Chronic Obstructive Pulmonary Disease Exacerbation # Chronic Respiratory Failure due to COPD on Home Oxygen (2 L) # Suspect Steroid-Induced Leukocytosis # Tobacco Use Disorder - Chest x-ray = "worsened aeration lungs compared with 11/20/2022 which could reflect either increasing edema and/or progressive infection." - Management plan: - Pulmonology consulted - recommendations appreciated - Continue steroids and bronchodilators - Consulted Respiratory Therapy - Supplemental oxygen to maintain SpO2 > 92% - Assess inhaler technique one improved from COPD exacerbation - Tobacco cessation counseling - Encouraged incentive spirometry # Suspect Acute on Chronic Systolic Congestive Heart Failure Exacerbation # Suspect Type II Non-ST Segment Elevation Myocardial Infarction (Demand Ischemia) secondary to above # Coronary Artery Disease # Hypertension # Dyslipidemia - Cardiac catheterization on 02/01/2022 revealed severe coronary artery disease and recommendation at the time was medical management - Cardiology consulted - recommendations appreciated - EKG = without STEMI criteria - Troponin trend = initial was 176.3 - NT-Pro BNP = 36,672 - Continue home aspirin, rosuvastatin, clopidogrel, metoprolol, furosemide # Possible Sepsis secondary to Pneumonia He met 2/4 SIRS criteria with a HR > 90 bpm and a WBC count > 12,000. - Ordered blood cultures x 2 - Chest x-ray = "worsened aeration lungs compared with 11/20/2022 which could reflect either increasing edema and/or progressive infection." - Lactate = 1.2 - Ordered procalcitonin - Started on vancomycin + cefepime to cover HCAP given recent hospitalization - In regards to fluid resuscitaiton, 30 mL/kg not given due to SBP > 90 mmHg, lactate < 4, and concern for volume overload (CHF exacerbation) # Chronic Atrial Fibrillation # History of Ventricular Tachycardia His [id number] = 4 (CHF=1, HTN=1, CAD=1, Age 65-74=1), which warrants anticoagulation. - For rate control: - Continue metoprolol, amiodarone - For anticoagulation: - Continue home apixaban # Chronic Kidney Disease Stage III - Nephrology consulted - recommendations appreciated - Creatinine = 2.12 (near baseline) - Diuretics as mentioned above - Monitor creatinine and urine output - If worsening, obtain renal ultrasound - Renally dose medications Hernan Alonzo M.D. - Advance Directives Does patient have a Living Will: No Does patient have a Durable POA for Healthcare: No
--- NOTE | 2022-11-25 12:06 | EKG ---
Test Date: 2022-11-25 Test Time: 08:51:46 Paper Maker: BP MEASUREMENT RESULTS: Intervals: Rate: 81 VA: 146 QRSD: 148 QT: 422 QTc: 490 [place]: P: 48 VA: 146 QRS: 11 T: 123 INTERPRETIVE STATEMENTS: Sinus rhythm with occasional premature ventricular complexes Possible Left atrial enlargement Left bundle branch block Abnormal ECG Compared to ECG 11/17/2022 13:22:56 Ventricular premature complex(es) now present Left bundle-branch block now present Sinus tachycardia no longer present Left ventricular hypertrophy no longer present T-wave abnormality no longer present Possible ischemia no longer present Electronically Signed On 11-25-22 12:05:47 CDT by Irvin Turner
[2022-11-25] MEDS ORDERED: ALBUTEROL 2.5 MG/3 ML NEB SOL NEB PRN (12:31)
[2022-11-25] MEDS ORDERED: IPRATROPIUM BROM 0.5MG/2.5ML NEB PRN (12:31)
--- OUTSIDE RECORDS SUMMARY | 2022-11-25 12:48 | XMS REPORT | Continuity of Care Document ---
:1950 Author Organization [facility] [place] [facility] t Address [address] [place] [address] Care Team Providers Name Role Phone Pcp, Patient Does Not Have A Primary Care Physician +[id number] Doctor Unassigned, [place] Attending Clinician Unavailable Arlene Yi Attending Clinician Nyasia Wang RN Attending Clinician Unavailable FELICIA GOSS Attending Clinician Unavailable Felicia Spencer Attending Clinician Osbaldo Aguiar MD Attending Clinician Corwin Walden DO Attending Clinician Jagdeep Fagan MD Attending Clinician Carmelo Hodgson MD Attending Clinician CARMELO HDOGSON Attending Clinician Unavailable Logan Liu MD Attending [...] y of d type d type 00:00: [place] 00 Medical Branch 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 Active 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: [place] congestive congestive 00 Me dical heart heart Branch failure failure Hyperkalem Hyperkalem Disease Active U nivers ia ia 8-21 ity of 00:00: [place] 00 Medical Branch 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 00:00: [facility] 00 Medical Branch Tachycardi Tachycardi Disease Active U nivers a a 8-21 ity of 00:00: [place] [address] Medical Branch Demand Demand Disease Recurre [facility] ischemia ischemia nce 5[facility]16 [facility] 00:00: [facility] 00 Center MEHREEN (acute MEHREEN (acute Disease Recurre [facility] kidney kidney nce 5-16 [facility] injury) injury) 00:00: Medical 00 Center Hypertensi Hypertensi Disease Active [facility] ve ve 5-16 [facility] emergency emergency 00:00: [facility] 00 Center Pulmonary Pulmonary Disease Active [facility] edema edema 5-16 [facility] 00:[facility]: Medical 00 Center 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 Recurre [facility] 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[facility] 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 Acute Acute Disease Recurre [facility] respirator respirator nce 5-15 [facility] y failure y failure 00:00: Medi south with with 00 Center hypercapni hypercapni a a Athscl Athscl Problem Active [facility] heart 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 Branch History [facility] 2022-02-22 2022-02-22 2 University o f Transport Non-Med 00:00:00 00:00:00 [facility] Exposure to 2022-02-04 2022-02-14 Not sure University of SARS-CoV-2 (event) 00:00:00 14:51:00 [facility] Cigarettes smoked 2022-02-14 2022-02-14 Univers ity of current (pack per 00:00:00 00:00:00 [facility] ) - Reported Branch Cigarette 2022-02-14 2022-02-14 University of pack-years 00:00:00 00:00:00 [facility] Alcohol intake 2021-11-10 2021-11-10 Ex-drinker [facility] 00:00:00 00:00:00 (finding) [facility] Tobacco use and 2021-11-10 2021-11-[address] [facility] kes exposure 00:00:00 00:00:00 tobacco non-user [facility] History of tobacco 2021-10-25 Passive smoker Un iversity of use 00:00:00 [facility] Sex [birth year] At [birth year] ALEXEI Vilchis 00:00:00 00:00:00 [facility] Smoking Status Start Date Stop Date Source Smokes tobacco daily [facility] (finding) Ex-smoker 2022-02-14 00:00:00 2022-02-14 00:00:00 Universi ty [facility] Medications Ordered Filled Start Stop Current Ordering Indication Dosage Frequency Signature Comments Components Source Medication Medication Date Date Medication? Clinician (SIG) Name Name azithromyci Yes [id number] 500mg Take 1 Univers n 500 mg 8-27 tablet by ity of tablet 00:00: mouth in [place] the Medical morning. Branch furosemide Yes [id number] 40mg Take 1 Univers 40 mg 8-27 tablet by ity of tablet 00:00: mouth in [place] the Medical morning. Branch azithromyci Yes [id number] 500mg Take 1 Univers n 500 mg 8-27 tablet by ity of tablet 00:00: mouth in [place] the Medical morning. Branch furosemide 2021-0 Yes [id number] 40mg Take 1 Univers 40 mg 8-27 tablet by ity of tablet 00:00: mouth in [place] the Medical morning. Branch azithromyci Yes [id number] 500mg Take 1 Univers n 500 mg 8-27 tablet by ity of tablet 00:00: mouth in [place] the Medical morning. Branch furosemide 2021-0 Yes [id number] 40mg Take 1 Univers 40 mg 8-27 tablet by ity of tablet 00:00: mouth in [place] the Medical morning. Branch azithromyci 2021-0 Yes [id number] 500mg Take 1 Univers n 500 mg 8-27 tablet by ity of tablet 00:00: mouth in [place] the Medical morning. Branch furosemide 2021-0 Yes [id number] 40mg Take 1 Univers 40 mg 8-27 tablet by ity of tablet 00:00: mouth in [place] [address] the Medical morning. Branch azithromyci 2021-0 Yes [id number] 500mg Take 1 Univers n 500 mg 8-27 tablet by ity of tablet 00:00: mouth in [place] 00 the Medical morning. Branch furosemide 2021-0 Yes [id number] 40mg Take 1 Univers 40 mg 8-27 tablet by ity of tablet 00:00: mouth in [place] 00 the Medical morning. Branch azithromyci 2021-0 Yes [id number] 500mg Take 1 Univers n 500 mg 8-27 tablet by ity of tablet 00:00: mouth in [place] 00 the Medical morning. Branch furosemide 2021-0 Yes [id number] 40mg Take 1 Univers 40 mg 8-27 tablet by ity of tablet 00:00: mouth in [place] 00 the Medical morning. Branch azithromyci 2021-0 Yes [id number] 500mg Take 1 Univers n 500 mg 8-27 tablet by ity of tablet 00:00: mouth in [place] 00 the Medical morning. Branch furosemide 2021-0 Yes [id number] 40mg Take 1 Univers 40 mg 8-27 tablet by ity of tablet 00:00: mouth in [place] 00 the Medical morning. Branch azithromyci 2021-0 Yes [id number] 500mg Take 1 Univers n 500 mg 8-27 tablet by ity of tablet 00:00: mouth in [place] 00 the Medical morning. Branch furosemide 2021-0 Yes [id number] 40mg Take 1 Univers 40 mg 8-27 tablet by ity of tablet 00:00: mouth in [place] 00 the Medical morning. Branch aspirin 81 2021- No [id number] 81mg Take 1 Univers mg chewable 8-27 03-23 tablet by it y of tablet 00:00: 04:59 mouth in [place] 00 :00 the Medical morning Branch for 30 days. clopidogreL 2021-2021- No [id number] 75mg Take 1 Univers 75 mg 8-27 03-23 tablet by ity of tablet 00:00: 04:59 mouth in [place] 00 :00 the Medical morning Branch for 30 days. Fluticasone 2021- No [id number] 1{puff} Inhale 1 Univers -Salmeterol -03-23 Puff every i ty of 100-50 00:00: 04:59 12 [place] mcg/dose 00 :00 (twelve) Medical inhalation hours for Bran ch disk 30 days. rosuvastati 2021-2021- No [id number] 20mg Take 1 Univers n 20 mg -03-23 tablet by ity of tablet 00:00: 04:59 mouth at [place] 00 :00 bedtime Medical for 30 Branch days. aspirin 81 2021- No [id number] 81mg Take 1 Univers mg chewable 02-20 tablet by it y of tablet 00:00: 04:59 mouth in [place] 00 :00 the Medical morning Branch for 30 days. clopidogreL 2021- No [id number] 75mg Take 1 Univers 75 mg -03-23 tablet by ity of tablet 00:00: 04:59 mouth in [place] 00 :00 the Medical morning Branch for 30 days. Fluticasone 2021- No [id number] 1{puff} Inhale 1 Univers -Salmeterol 02-20 Puff every i ty of 100-50 00:00: 04:59 12 [place] mcg/dose 00 :00 (twelve) Medical inhalation hours for Bran ch disk 30 days. rosuvastati 2021- No [id number] 20mg Take 1 Univers n 20 mg 02-20 tablet by ity of tablet 00:00: 04:59 mouth at [place] 00 :00 bedtime Medical for 30 Branch days. aspirin 81 2021- No [id number] 81mg Take 1 Univers mg chewable 02-20 tablet by it y of tablet 00:00: 04:59 mouth in [place] 00 :00 the Medical morning Branch for 30 days. clopidogreL 2021- No [id number] 75mg Take 1 Univers 75 mg -03-23 tablet by ity of tablet 00:00: 04:59 mouth in [place] 00 :00 the Medical morning Branch for 30 days. Fluticasone 2021- No [id number] 1{puff} Inhale 1 Univers -Salmeterol 02-20- Puff every i ty of 100-50 00:00: 04:59 12 [place] mcg/dose 00 :00 (twelve) Medical inhalation hours for Bran ch disk 30 days. rosuvastati 2021-2021- No [id number] 20mg Take 1 Univers n 20 mg -03-23 tablet by ity of tablet 00:00: 04:59 mouth at [place] 00 :00 bedtime Medical for 30 Branch days. aspirin 81 2021- No [id number] 81mg Take 1 Univers mg chewable 8-23 03- tablet by it y of tablet 00:00: 04:59 mouth in [place] 00 :00 the [facility] morning [place] for 30 days. clopidogreL 2021- No [id number] 75mg Take 1 Univers 75 mg 8-23 03- tablet by ity of tablet 00:00: 04:59 mouth in [place] 00 :00 the [facility] morning [place] for 30 days. Fluticasone 2021- No [id number] 1{puff} Inhale 1 Univers -Salmeterol 8-23 03- Puff every i ty of 100-50 00:00: 04:59 12 [place] mcg/dose 00 :00 (twelve) Medical inhalation hours for Bran ch disk 30 days. rosuvastati 2021- No [id number] 20mg Take 1 Univers n 20 mg -03-23 tablet by ity of tablet 00:00: 04:59 mouth at [place] 00 :00 bedtime Medical for 30 Branch days. aspirin 81 2021- No [id number] 81mg Take 1 Univers mg chewable -03-23 tablet by it y of tablet 00:00: 04:59 mouth in [place] 00 :00 the [facility] morning [place] for 30 days. clopidogreL 2021- No [id number] 75mg Take 1 Univers 75 mg 8-03-23 tablet by ity of tablet 00:00: 04:59 mouth in [place] 00 :00 the [facility] morning [place] for 30 days. Fluticasone 2021- No [id number] 1{puff} Inhale 1 Univers -Salmeterol -03-23 Puff every i ty of 100-50 00:00: 04:59 12 [place] mcg/dose 00 :00 (twelve) Medical inhalation hours for Bran ch disk 30 days. rosuvastati 2021- No [id number] 20mg Take 1 Univers n 20 mg 8-23 03- tablet by ity of tablet 00:00: 04:59 mouth at [place] 00 :00 bedtime Medical for 30 Branch days. aspirin 81 2021- No [id number] 81mg Take 1 Univers mg chewable 8-23 03- tablet by it y of tablet 00:00: 04:59 mouth in [place] 00 :00 the Medical morning Branch for 30 days. clopidogreL No [id number] 75mg Take 1 Univers 75 mg 02-20 tablet by ity of tablet 00:00: 04:59 mouth in [place] 00 :00 the Medical morning Branch for 30 days. Fluticasone 2021- No [id number] 1{puff} Inhale 1 Univers -Salmeterol 02-20 Puff every i ty of 100-50 00:00: 04:59 12 [place] mcg/dose 00 :00 (twelve) Medical inhalation hours for Bran ch disk 30 days. rosuvastati No [id number] 20mg Take 1 Univers n 20 mg 02-20 tablet by ity of tablet 00:00: 04:59 mouth at [place] 00 :00 bedtime Medical for 30 Branch [...] Routine lisinopriL 2021- No 10mg 10 mg, [facility] ers (PRINIVIL,Z 02-19 Oral, QHS, i ty of ESTRIL) 02:00: 23:44 First dose [place] as tablet 10 00 :08 on [facility] mg 02/18/22 at Branch 2100, Until Discontinu ed, Routine lisinopriL 2021- No 10mg 10 mg, [facility] ers (PRINIVIL,Z 02-19 Oral, QHS, i ty of ESTRIL) 02:00: 23:44 First dose [place] as tablet 10 00 :08 on [place] [facility] mg 02/18/22 at Branch 2100, Until Discontinu ed, Routine methylPREDN 2021- No 40mg 40 mg, Uni vers ISolone sod 02-18 Intravenou i ty of succ 16:30: 23:44 s, Q12H, [place] (SOLU-MEDRO 00 :08 First dose Me dical L (PF)) on [place] Branch injection 02/18/22 at 40 mg 1130, Until Discontinu ed, 1 mL methylPREDN 2021- No 40mg 40 mg, Uni vers ISolone sod 02-18 Intravenou i ty of succ 16:30: 23:44 s, Q12H, [place] (SOLU-MEDRO 00 :08 First dose Me dical L (PF)) on [place] Branch injection 02/18/22 at 40 mg 1130, Until Discontinu ed, 1 mL Fluticasone 2021- No 1{puff} 1 Puff, Univers -Salmeterol 02-18 Inhalation i ty of (ADVAIR) 15:30: 23:44 , Q12H, [place] [id number] 00 :08 First dose Medical mcg/dose on [place] Branch inhalation 02/18/22 at disk 1 Puff 1030, Until Discontinu ed, Routine Fluticasone 2021- No 1{puff} 1 Puff, Univers -Salmeterol 02-18 Inhalation i ty of (ADVAIR) 15:30: 23:44 , Q12H, [place] [address] 00 :08 First dose Medical mcg/dose on [place] Branch inhalation 02/18/22 at disk 1 Puff 1030, Until Discontinu ed, Routine heparin 2021- No 5000U 5,000 Univers (porcine) 02-18 Units, ity of injection 01:00: 23:44 [place] 5,000 Units 00 :08 us, BID, [facility] First dose Branch on Tue02/17/22 at 1999, Until Discontinu ed, Routine heparin 2021- No 5000U 5,000 Univers (porcine) 02-18 Units, ity of injection 01:00: 23:44 Subcutaneo [place] 5,000 Units 00 :08 us, BID, [facility] First dose Branch on Tue02/17/22 at 2000, [...] 1048, Routine, CV Intraproce dure FENTanyl PF No ONCE INTRA Univers (SUBLIMAZE 02-17 PROCEDURE, [...] :08 (after Medical last Branch reorder) on [facility] 02/16/22 at 2100, Until Discontinu ed, Routine metoprolol No 25mg 25 mg, Univ ers succinate 02-16 Oral, BID, ity of XL (TOPROL 15:45: 23:44 First dose [place] XL) tablet 00 :08 on [facility] Medical 25 mg 02/16/22 at Branch 1045, Until Discontinu ed, Routine metoprolol No 25mg 25 mg, Univ ers succinate 02-16 Oral, BID, ity of XL (TOPROL 15:45: 23:44 First dose [place] XL) tablet 00 :08 on [facility] Medical 25 mg 02/16/22 at Branch 1045, [...] Branch 2100, Until Discontinu ed, Routine glucagon 2021- No 1mg 1 mg, Univers [...] mouth Medic al GG, 00 :00 daily. [place] (CULTUREE ) 10 billion cell capsule lactobacill 2022- No 1{capsu QD Take [address] [facility] us 5-20 05-20 le} capsule by [facility] rhamnosus, 00:00: 23:59 mouth Medic al GG, 00 :00 daily. [facility] (CULTURELLE ) 10 billion cell capsule lactobacill 2022- No 1{capsu QD Take [address] [facility] us 5-20 05-20 le} capsule by [facility] rhamnosus, 00:00: 23:59 mouth Medic al GG, 00 :00 daily. [place] (CULTUREE ) 10 billion cell capsule lactobacill 2022- No 1{capsu QD Take [address] [facility] us 5-20 05-20 le} capsule by [facility] rhamnosus, 00:00: 23:59 mouth Medic al GG, 00 :00 daily. [place] (CULTURELLE ) 10 billion cell capsule lactobacill 2022- No 1{capsu QD Take [address] [facility] us 5-20 05-20 le} capsule by [facility] rhamnosus, 00:00: 23:59 mouth Medic al GG, 00 :00 daily. [place] (CULTURELLE ) 10 billion cell capsule lactobacill 2022- No 1{capsu QD Take [address] [facility] us 5-20 05-20 le} capsule by [facility] rhamnosus, 00:00: 23:59 mouth Medic al GG, 00 :00 daily. [place] (CULTUREE ) 10 billion cell capsule lactobacill 2021-2022- No 1{capsu QD Take [address] [facility] us 5-20 05-20 le} capsule by [facility] rhamnosus, 00:00: 23:59 mouth Medic al GG, 00 :00 daily. [place] (CULTURELLE ) 10 billion cell capsule lactobacill 2021-2022- No 1{capsu QD Take [address] [facility] us 5-20 05-20 le} capsule by [facility] rhamnosus, 00:00: 23:59 mouth Medic al GG, 00 :00 daily. [place] ([facility] 10 billion cell capsule amLODIPine 2021-2021- [...] 20:45: daily. Medic al MG tablet 02 [place] carvediloL Yes 6.25mg Take 6.[address] [facility] (COREG) 5-19 mg by [facility] 6.25 MG 20:45: mouth 2 Medical tablet 02 (two) Center times daily with breakfast and dinner. lisinopriL 0 Yes 40mg QD Take [address] (PRINIVIL,Z 5-19 by mouth Luke s ESTRIL) 40 20:45: daily. Medic al MG tablet 02 [place] carvediloL Yes 6.25mg Take 6.[address] (COREG) 5-19 mg by [facility] 6.25 MG 20:45: mouth 2 Medical tablet 02 (two) Center times daily with breakfast and dinner. lisinopriL 0 Yes 40mg QD Take [address] (PRINIVIL,Z 5-19 by mouth Luke s ESTRIL) 40 20:45: daily. Medic al MG tablet 02 [place] carvediloL Yes 6.25mg Take 6.[address] (COREG) 5-19 mg by [facility] 6.25 MG 20:45: mouth 2 Medical tablet 02 (two) Center times daily with breakfast and dinner. lisinopriL 0 Yes 40mg QD Take [address] (PRINIVIL,Z 5-19 by mouth Luke s ESTRIL) 40 20:45: daily. Medic al MG tablet 02 [place] carvediloL Yes 6.25mg Take 6.[address] (COREG) 5-19 mg by [facility] 6.25 MG 20:45: mouth 2 Medical tablet 02 (two) Center times daily with breakfast and dinner. predniSONE 2021-0 2021- No 10mg Q.5D Take [...] tablet 36 :00 times Center daily. amLODIPine 2-0 2022- No 5mg QD Take [address] (NORVASC) 5 5-19 05-19 by mouth Sally es MG tablet 16:04: 00:00 daily. Medic al 36 :00 Center predniSONE 2-0 2022- No 10mg Q.5D Take [address] [facility] (DELTASONE) 5-19 05-19 by mouth 2 L ukes 10 MG 16:04: 00:00 (two) Medical tablet 36 :00 times Center daily. amLODIPine 2021-0 2022- No 5mg QD Take [address] (NORVASC) 5 5-19 05-19 by mouth Sally es MG tablet 16:04: 00:00 daily. Medic al 36 :00 Center predniSONE 2-0 2022- No 10mg Q.5D Take [address] [facility] (DELTASONE) 5-19 05-19 by mouth 2 L ukes 10 MG 16:04: 00:00 (two) Medical tablet 36 :00 times Center daily. amLODIPine 2021-0 2- No 5mg QD Take [address] (NORVASC) 5 5-19 05-19 by mouth Sally es MG tablet 16:04: 00:00 daily. Medic al 36 :00 Center predniSONE 2-0 2022- No 10mg Q.5D Take [address] [facility] (DELTASONE) 5-19 05-19 by mouth 2 L ukes 10 MG 16:04: 00:00 (two) Medical tablet 36 :00 times Center daily. amLODIPine 2-0 2022- No 5mg QD Take [address] (NORVASC) 5 5-19 05-19 by mouth Sally es MG tablet 16:04: 00:00 daily. Medic al 36 :00 Center predniSONE 2-0 2022- No 10mg Q.5D Take [address] (DELTASONE) 5-19 05-19 by mouth 2 L ukes 10 MG 16:04: 00:00 (two) Medical tablet 36 :00 times Center daily. amLODIPine 2-0 2022- No 5mg QD Take 5 mg [...] [facility] -albuteroL 11-12 05-14 by [facility] (DU[employer]-Qomuty) 00:00: 23:59 nebulizati M edical 0.5 mg-3 [...] [facility] -albuteroL 11-12 05-14 by [facility] ([employer]) 00:00: 23:59 nebulizati M edical 0.5 mg-3 [...] [facility] -albuteroL 11-12 05-14 by [facility] ([employer]) 00:00: 23:59 nebulizati M edical 0.5 mg-3 [...] [facility] -albuteroL 11-12 05-14 by [facility] ([employer]) 00:00: 23:59 nebulizati M edical 0.5 mg-3 [...] [address] -albuteroL 11-12-14 by [facility] ([employer]) 00:00: 23:59 nebulizati M edical 0.5 mg-3 [...] Take [address] -albuteroL 11-12 0514 by [email or web address] ([employer]) 00:00: 23:59 nebulizati M edical 0.5 mg-3 00 :00 on every 6 Cente r mg(2.5 mg (six) base)/3 mL hours as nebulizer needed for solution Wheezing for up to 360 days. apixaban 2021-0 2- No 5mg Q.5D Take [address] [address] (ELIQUIS) 5 5-19 08-17 tablet (5 [facility] kes mg Tab 00:00: 23:59 mg total) Medic al tablet 00 :00 by mouth 2 Center (two) times daily for 90 days. apixaban 2-0 2- No 5mg Q.5D Take [address] [address] (ELIQUIS) 5 5-19 08-17 tablet (5 [facility] kes mg Tab 00:00: 23:59 mg total) Medic al tablet 00 :00 by mouth 2 Center (two) times daily for 90 days. apixaban 2022-0 2022- No 5mg Q.5D Take 1 [facility]I [...] (two) times daily for 90 days. apixaban 2021-2- No 5mg Q.5D Take [address] [facility] [...] times daily for 90 days. bumetanide 2021-0 2021- No 1mg Take [address] [facility] (BUMEX) 1 5- 06-18 tablet (1 Luke s MG tablet 00:00: 23:59 mg total) Me dical 00 :00 by mouth 2 Center (two) times daily for 30 days. bumetanide 2021-0 2- No 1mg Take [address] [facility] (BUMEX) 1 5-19 -18 tablet (1 Luke s MG tablet 00:00: [...] mg total) daily for 3 days. predniSONE 2021-0 2021- No Take [address] [facility] (DELTASONE) 11-12-31 tablets Luke s 10 MG 00:00: 23:59 (40 mg Medical tablet 00 :00 total) by Center mouth daily for 3 days, THEN 3 tablets (30 mg total) daily for 3 days, THEN 2 tablets (20 mg total) daily for 3 days, THEN 1 tablet (10 mg total) daily for 3 days. dextrometho 2021-0 2021- No 5mL Take [address]-aif 11-12 by mouth Sally es enesin 00:00: 23:59 every 4 Medical (ROBITUSSIN 00 :00 (four) [facility] -) 10-100 hours as mg/5 mL needed for liquid up to 10 days. dextrometho 2021-0 2021- No 5mL Take 5 mLs [facility]-aif 11-12 by mouth Sally es enesin 00:00: 23:59 every 4 Medical (ROBITUSSIN 00 :00 (four) [facility] -) 10-100 hours as mg/5 mL needed for liquid up to 10 days. dextrometho 2021-0 2021- No 5mL Take [address] [facility]-aif 11-12 by mouth Sally es enesin 00:00: 23:59 every 4 Medical (ROBITUSSIN 00 :00 (four) [facility] -) 10-100 hours as mg/5 mL needed for liquid up to 10 days. dextrometho 2021-0 2021- No [facility] by mouth [facility] es enesin 00:00: 23:59 every 4 Medical (ROBITUSSIN 00 :00 (four) [facility] -) 10-100 hours as mg/5 mL needed for liquid up to 10 days. dextrometho 2021-0 2021- No 5mL Take [address] rphan-guaif 11-12 by mouth [place] es enesin 00:00: 23:59 every 4 Medical (ROBITUSSIN 00 :00 (four) [facility] -) 10-100 hours as mg/5 mL needed for liquid up to 10 days. dextrometho 2022-0 2021- No 5mL Take 5 mLs [facility] [...] St -clavulanat 5-19 05-22 tablet by Romero sanchez 00:00: 23:59 mouth 2 Medical (AUGMENTIN) 00 :00 (two) Center 875-125 mg times per tablet daily for 3 days. lisinopriL 2021-0 Yes [id number] 10mg Take 1 Univers 10 mg 4-17 tablet by ity of tablet 00:00: mouth at [place] [address] bedtime. Medical Branch metoprolol 2021-0 Yes [id number] 25mg Take 1 Univers tartrate 25 4-17 tablet by ity of mg tablet 00:00: mouth 2 (two) Medical times Branch daily. lisinopriL 2021-0 Yes [id number] 10mg Take 1 Univers 10 mg 4-17 tablet by ity of tablet 00:00: mouth at [place] [address] bedtime. Medical Branch metoprolol 2021-0 Yes [id number] 25mg Take 1 Univers tartrate 25 4-17 tablet by ity of mg tablet 00:00: mouth 2 (two) Medical times Branch daily. lisinopriL 2021-0 Yes [id number] 10mg Take 1 Univers 10 mg 4-17 tablet by ity of tablet 00:00: mouth at [place] [address] bedtime. Medical Branch metoprolol 2021-0 Yes [id number] 25mg Take 1 Univers tartrate 25 4-17 tablet by ity of mg tablet 00:00: mouth 2 (two) Medical times Branch daily. lisinopriL 2021-0 Yes [id number] 10mg Take 1 Univers 10 mg 4-17 tablet by ity of tablet 00:00: mouth at [place] [address] bedtime. Medical Branch metoprolol 2021-0 Yes [id number] 25mg Take 1 Univers tartrate 25 4-17 tablet by ity of mg tablet 00:00: mouth 2 [place] (two) Medical times Branch daily. lisinopriL 2021-0 Yes [id number] 10mg Take 1 Univers 10 mg 4-17 tablet by ity of tablet 00:00: mouth at [place] [address] bedtime. Medical Branch metoprolol 2021-0 Yes [id number] 25mg Take 1 Univers tartrate 25 4-17 tablet by ity of mg tablet 00:00: mouth 2 [place] (two) Medical times Branch daily. lisinopriL Yes [id number] 10mg Take 1 Univers 10 mg 4-17 tablet by ity of tablet 00:00: mouth at [place] [address] bedtime. Medical Branch metoprolol Yes [id number] 25mg Take 1 Univers tartrate 25 4-17 tablet by ity of mg tablet 00:00: mouth 2 [place] (two) Medical times Branch daily. lisinopriL Yes [id number] 10mg Take 1 Univers 10 mg 4-17 tablet by ity of tablet 00:00: mouth at [place] [address] bedtime. Medical Branch metoprolol Yes [id number] 25mg Take 1 Univers tartrate 25 4-17 tablet by ity of mg tablet 00:00: mouth 2 [place] (two) Medical times Branch daily. lisinopriL Yes [id number] 10mg Take 1 Univers 10 mg 4-17 tablet by ity of tablet 00:00: mouth at [place] [address] bedtime. Medical Branch metoprolol Yes [id number] 25mg Take 1 Univers tartrate 25 4-17 tablet by ity of mg tablet 00:00: mouth 2 [place] (two) Medical times Branch daily. Spiriva Spiriva [...] Tablet 00:00: DAILY ans 00 Simvastatin Simvastatin 2012-1 Yes MARK 1 QD TAKE 1 UT [...] Comments Source Systolic blood 2022-02-17 115 mm[Hg] [facility] pressure 14:38:59 [facility] Diastolic blood 2022-02-17 71 mm[Hg] [facility] f pressure 14:38:59 [facility] Respiratory rate 2022-02-17 20 /min [facility] 14:38:59 [facility] Oxygen saturation 2022-02-17 100 /min [facility] Arterial blood 14:38:59 [facility] by Pulse oximetry [place] Heart rate 2022-02-17 76 /min [facility] 11:00:00 [facility] Body temperature 2022-02-17 36.44 Leni [facility] 09:00:00 [facility] Body height 2022-02-14 182.9 cm [facility] 22:40:00 [facility] Body weight 2022-02-14 83.6 kg University 22:40:00 [facility] BMI 2022-02-14 25.00 kg/m2 [facility] 22:40:00 [facility] WEIGHT 2021-11-11 81.5 kg 04:18:00 HEIGHT 2021-11-10 [...] 60 /min [facility] 19:40:00 [facility] Respiratory rate 2021-11-12 18 /min [facility] 19:[facility]00 [facility] Oxygen saturation 2021-11-12 99 /min [facility] in Arterial blood 19:40:00 Medical nter by Pulse oximetry Systolic blood 2021-11-12 137 mm[Hg] [facility] pressure 16[facility] Diastolic blood 2021-11-12 83 mm[Hg] [facility] pressure 16:00:00 [facility] Body temperature 2021-11-[address] [facility] 16:00:00 [facility] Body weight 2021-11-[address] [facility] 04:18:00 [facility] BMI 2021-11-11 24.37 kg/m2 [facility] 04:18:00 [facility] Body height 2021-11-[address] [facility] 04:48:00 [facility] Systolic blood 2020-04-16 141 mm[Hg] Location: [place]; [facility] 07:34:00 Position: Sitting Diastolic blood 2020-04-16 60 mm[Hg] Location: LUE; [facility] pressure 07:34:00 Position: Sitting Weight 2020-04-16 173.125 [lb_av] [facility] 07:34:00 Body mass index 2020-04-16 22.23 kg/m2 [facility] (BMI) [Ratio] 07:34:00 Body temperature 2020-04-16 97.2 [degF] Method: [facility] 07:34:00 Tympanic Heart Rate 2020-04-16 59 /min Location: L [facility] 07:34:00 Radial; Quality: Normal O2 SAT 2020-04-16 95 % Source: [facility] 07:34:00 Non-Rebreather Systolic blood 2020-04-07 137 mm[Hg] Location: RUE; [facility] 14:12:00 Position: Sitting Diastolic blood 2020-04-07 74 mm[Hg] Location: RUE; [facility] pressure 14:12:00 Position: Sitting Body height 2020-04-07 74 [in_us] [facility] 14:12:00 Weight 2020-04-07 171 [lb_av] [facility] 14:12:00 Body mass index 2020-04-07 21.96 kg/m2 [facility] (BMI) [Ratio] 14:12:00 Body temperature 2020-04-07 97.8 [degF] [facility] 14:12:00 Heart Rate 2020-04-07 54 /min [facility] 14:12:00 Respiratory rate 2020-04-07 18 /min [facility] 14:12:00 O2 SAT 2020-04-07 97 % Source: [facility] 14:12:00 Procedures Procedure Date / Time Performing Clinician Source Performed AUTHORIZATION FOR RELEASE 2022-10-05 05:01:00 Doctor Unassnakul, [facility] ASSIGNMENT OF BENEFITS 2022-03-31 22:21:39 Doctor Hannahssnakul [facility] AUTHORIZATION FOR RELEASE 2022-03-02 05:01:00 Doctor Cynthia, [facility] AUTHORIZATION FOR RELEASE 2022-02-26 05:01:00 Doctor Cynthia, [facility] AUTHORIZATION FOR RELEASE 2022-02-22 05:01:00 Doctor Unassigned, [facility] Name [facility] [place] POCT GLUCOSE (AUTOMATED) 2022-02-20 18:39:00 Carmelo Hodgson [facility] POCT GLUCOSE (AUTOMATED) 2022-02-20 14:45:00 [facility] BASIC METABOLIC PANEL (NA, 2022-02-20 10:00:00 Arcelia Tellez [facility] K, CL, CO2, GLUCOSE, BUN, Medica l Branch CREATININE, CA) EMERGENCY SERVICES 2022-02-20 05:01:00 Doctor Cynthia, [facility] AGREEMENTS AND [facility] [facility] [place] AUTHORIZATIONS BASIC METABOLIC PANEL (NA, 2022-02-20 01:23:00 Juan Lott [facility] K, CL, CO2, GLUCOSE, BUN, Medica l Branch CREATININE, CA) POCT GLUCOSE (AUTOMATED) 2022-02-20 01:01:00 [facility] POCT GLUCOSE (AUTOMATED) 2022-02-19 22:27:00 [facility] BASIC METABOLIC PANEL (NA, 2022-02-19 18:07:00 Juan Lott [facility] K, CL, CO2, GLUCOSE, BUN, Medica l Branch CREATININE, CA) POCT GLUCOSE (AUTOMATED) 2022-02-19 16:22:00 [facility] POCT GLUCOSE (AUTOMATED) 2022-02-19 13:14:00 Corwin Walden [facility] BASIC METABOLIC PANEL (NA, 2022-02-19 13:12:00 Jagdeep Fagan [facility] K, CL, CO2, GLUCOSE, BUN, Medica l Branch CREATININE, CA) MAGNESIUM 2022-02-19 09:17:00 Asad [facility] BASIC METABOLIC PANEL (NA, 2022-02-19 09:17:00 [facility] K, CL, CO2, GLUCOSE, BUN, Medica l Branch CREATININE, CA) CBC WITHOUT DIFF 2022-02-19 09:17:00 Asad [facility] POCT GLUCOSE (AUTOMATED) 2022-02-19 01:13:00 Corwin Walden [facility] POCT GLUCOSE (AUTOMATED) 2022-02-18 21:58:00 Corwin Walden [facility] PROCALCITONIN 2022-02-18 19:50:00 Kellie Puentes [facility] POCT GLUCOSE (AUTOMATED) 2022-02-18 17:30:00 Corwin Walden [facility] CT THORAX WO CONTRAST 2022-02-18 17:14:31 Kellie Puentes [facility] POCT GLUCOSE (AUTOMATED) 2022-02-18 12:57:00 Corwin Walden [facility] BASIC METABOLIC PANEL (NA, 2022-02-18 08:43:00 Arcelia Tellez [facility] K, CL, CO2, GLUCOSE, BUN, Medica l Branch CREATININE, CA) CBC WITH DIFF 2022-02-18 08:43:00 Brandie Mckeon [facility] PROCALCITONIN 2022-02-18 08:43:00 Carmelo Hodgson [facility] POCT GLUCOSE (AUTOMATED) 2022-02-18 01:14:00 Corwin Walden [facility] POCT GLUCOSE (AUTOMATED) 2022-02-17 21:44:00 Corwin Walden [facility] CARDIAC CATHETERIZATION 2022-02-17 15:20:00 Alexa [facility] CARDIAC CATHETERIZATION 2022-02-17 15:20:00 Alexa [facility] CATH PROCEDURE LOG 2022-02-17 15:04:23 Alexa [facility] POCT GLUCOSE (AUTOMATED) 2022-02-17 12:58:00 Corwin Walden [facility] ACTIVATED PARTIAL THRMPLAS 2022-02-17 12:53:00 Jagdeep Fagan [facility] MAGNESIUM 2022-02-17 09:01:00 Ben [facility] BASIC METABOLIC PANEL (NA, 2022-02-17 09:01:00 [facility], CO2, GLUCOSE, BUN, Medica l Branch CREATININE, CA) CBC WITH DIFF 2022-02-17 09:01:00 Mike, [facility] POCT GLUCOSE (AUTOMATED) 2022-02-17 01:00:00 Corwin Walden [facility] BASIC METABOLIC PANEL (NA, 2022-02-17 00:57:00 Juan Lott [facility] K, CL, CO2, GLUCOSE, BUN, Medica l Branch CREATININE, CA) ACTIVATED PARTIAL THRMPLAS 2022-02-17 00:57:00 Brandie Mckeon [facility] POCT GLUCOSE (AUTOMATED) 2022-02-16 21:27:00 Corwin Walden [facility] TROPONIN I 2022-02-16 18:09:00 Michael Lott [facility] BASIC METABOLIC PANEL (NA, 2022-02-16 18:09:00 Juan Lott [facility] K, CL, CO2, GLUCOSE, BUN, Medica l Branch CREATININE, CA) POCT GLUCOSE (AUTOMATED) 2022-02-16 16:33:00 [facility] MISCELLANEOUS CULTURE 2022-02-16 13:52:00 Michael Lott [facility] ACTIVATED PARTIAL THRMPLAS 2022-02-16 13:18:00 Osbaldo Aguiar [facility] POCT GLUCOSE (AUTOMATED) 2022-02-16 13:15:00 [facility] PHOSPHORUS 2022-02-16 06:37:00 Chaparro Lottradha [facility] MAGNESIUM 2022-02-16 06:37:00 Kaylie [facility] TROPONIN I 2022-02-16 06:37:00 Kaylie [facility] BASIC METABOLIC PANEL (NA, 2022-02-16 06:37:00 Brandie Mckeon [facility] K, CL, CO2, GLUCOSE, BUN, Medica l Branch CREATININE, CA) CBC WITH DIFF 2022-02-16 06:37:00 Mike, [facility] ACTIVATED PARTIAL THRMPLAS 2022-02-16 06:37:00 Brandie Mckeon [facility] POCT GLUCOSE (AUTOMATED) 2022-02-16 01:06:00 [facility] MAGNESIUM 2022-02-15 23:35:00 [facility] TROPONIN I 2022-02-15 23:35:00 Jagdeep Fagan [facility] BASIC METABOLIC PANEL (NA, 2022-02-15 23:35:00 Corwin Walden [facility] K, CL, CO2, GLUCOSE, BUN, Medica l Branch CREATININE, CA) ACTIVATED PARTIAL THRMPLAS 2022-02-15 23:35:00 Osbaldo Aguiar [facility] PHOSPHORUS 2022-02-15 23:35:00 Kaylie [facility] POCT GLUCOSE (AUTOMATED) 2022-02-15 23:07:00 [facility] ACTIVATED PARTIAL THRMPLAS 2022-02-15 17:03:00 Juan Lott [facility] BLOOD CULTURE SCREEN 2022-02-15 16:58:00 [facility] PHOSPHORUS 2022-02-15 16:58:00 Kaylie [facility] MAGNESIUM 2022-02-15 16:58[facility]00 [facility]-15 16:58[facility]00 [facility] BASIC METABOLIC PANEL (NA, 2022-02-15 16:58:00 Corwin Walden [facility] K, CL, CO2, GLUCOSE, BUN, Medica l Branch CREATININE, CA) POCT GLUCOSE (AUTOMATED) 2022-02-15 16:41:00 Corwin Walden [facility] TRANSTHORACIC ECHO (TTE) 2022-02-15 13:26:00 Corwin Walden [facility] W/ CONTRAST Medical Bran ch POCT GLUCOSE (AUTOMATED) 2022-02-15 13:04:00 Corwin Walden [facility] TROPONIN I 2022-02-15 11:04:00 Kamaljit Astorga [facility] PROCALCITONIN 2022-02-15 11:04:00 Kaylie [facility] MAGNESIUM 2022-02-15 10:14:00 Corwin Walden [facility] BASIC METABOLIC PANEL (NA, 2022-02-15 10:14:00 Corwin Walden [facility] K, CL, CO2, GLUCOSE, BUN, [facility] CREATININE, CA) CBC WITHOUT DIFF 2022-02-15 10:14:00 Corwin Walden [facility] ACTIVATED PARTIAL THRMPLAS 2022-02-15 10:14:00 Kamaljit Astorga [facility] ACTIVATED PARTIAL THRMPLAS 2022-02-15 03:55:00 Kamaljit Astorga [facility] POCT GLUCOSE (AUTOMATED) 2022-02-15 02:36:00 Corwin Walden [facility] MRSA / MSSA SCREEN BY PCR, 2022-02-15 02:28:00 Corwin Walden [facility] VW 2022-02-15 00:53:48 Iram [facility] TROPONIN I 2022-02-15 00:48:00 Iram [facility] BASIC METABOLIC PANEL (NA, 2022-02-15 00:48:00 Corwin Walden [facility] K, CL, CO2, GLUCOSE, BUN, Medica l Branch CREATININE, CA) LACTIC ACID WHOLE BLOOD 2022-02-15 00:48:00 Iram [facility] EKG-12 LEAD 2022-02-14 22:40:56 Osbaldo Aguiar [facility] CRITICAL CARE 2022-02-14 22:10:00 Osbaldo Aguiar [facility] AC PANEL 20 + LACTIC ACID 2022-02-14 21:25:00 Osbaldo Aguiar [facility] ACTIVATED PARTIAL THRMPLAS 2022-02-14 20:54:00 Osbaldo Aguiar [facility] BLOOD CULTURE SCREEN 2022-02-14 20:53:00 Osbaldo [facility]ar [facility] BLOOD CULTURE WORKUP 2022-02-14 20:53:00 Osbaldo [facility]uiar [facility] GRAM POSITIVE BLOOD 2022-02-14 20:53:00 Osbaldo Aguiar [facility] PROBE-AEROBIC AC PANEL 20 + LACTIC ACID 2022-02-14 20:23:00 Osbaldo Aguiar [facility] HB ECG ROUTINE & RHYTHM 2022-02-14 20:16:55 Osbaldo Aguiar [facility] XR CHEST 1 VW 2022-02-14 20:08:00 Osbaldo Aguiar [facility] MAGNESIUM 2022-02-14 20:01:00 Osbaldo Aguiar [facility] TROPONIN I 2022-02-14 20:01:00 Osbaldo Aguiar [facility] COMP. METABOLIC PANEL 2022-02-14 20:01:00 Osbaldo Aguiar [facility] ([id number]) Medical Branch CBC WITH DIFF 2022-02-14 20:01:00 Osbaldo Aguiar [facility] [facility] PROTHROMBIN TIME / INR 2022-02-14 20:01:00 [facility] N-TERMINAL PRO-BNP 2022-02-14 20:01:00 Osbaldo Aguiar [facility] COVID-19 (ID NOW RAPID 2022-02-14 20:01:00 Osbaldo Augiar [facility] TESTING) Medical Branch LAB ONLY COVID 2022-02-14 20:01:00 Osbaldo Aguiar [place] [facility] [place] INTERPRETATION [facility] CONSENT/REFUSAL FOR 2022-02-14 19:55:28 Doctor Unassigned, [facility] DIAGNOSIS AND TREATMENT [facility] [facility] [place] EXTERNAL PROVIDER RECORDS 2022-02-14 05:01:00 Doctor Unassigned, [facility] [facility] [place] HOSPITAL ADMISSION 2022-02-14 05:01:00 Doctor Unassigned, [facility] POCT-GLUCOSE METER 2021-11-12 15:41:00 Prosper [facility] POCT-GLUCOSE METER 2021-11-12 11:18:00 [facility]SE [facility]ER 2021-11-12 06:33:00 Prosper [facility] CBC W/PLT COUNT & AUTO 2021-11-12 04:33:00 [facility] BASIC METABOLIC PANEL 2021-11-12 04:33:00 Juventino Smith [facility] MAGNESIUM 2021-11-12 04:33:00 [facility] CBC W/PLT COUNT & AUTO 2021-11-12 04:33:00 Juventino Smith [facility] POCT-GLUCOSE METER 2021-11-11 21:38:00 Prosper [facility] POCT-GLUCOSE METER 2021-11-11 16:31:00 [facility] POCT-GLUCOSE METER 2021-11-11 11:33:00 Prosper [facility] NM MYOCARDIAL PERFUSION 2021-11-11 11:00:00 Bebeto [facility] Center ECG 12-LEAD 2021-11-11 09:26:30 Bebeto [facility] POCT-GLUCOSE METER 2021-11-11 06:42:00 Juventino Smith [facility] XR CHEST 1 VIEW PORTABLE / 2021-11-11 05:48:00 Robb Reina [facility] BEDSIDE [facility] CBC W/PLT COUNT & AUTO 2021-11-11 04:06:00 SarahJuventino [facility] BASIC METABOLIC PANEL 2021-11-11 04:06:00 Juventino Smith [facility] MAGNESIUM 2021-11-11 04:06:00 Juventino Smith [facility] CBC W/PLT COUNT & AUTO 2021-11-11 04:06:00 Juventino Smith [facility] POCT-GLUCOSE METER 2021-11-10 20:48:00 Juventino Smith [facility] POCT-GLUCOSE METER 2021-11-10 15:39:00 Juventino Smith [facility] POCT-GLUCOSE METER 2021-11-10 11:33:00 Juventino Smith [facility] BASIC METABOLIC PANEL 2021-11-10 06:58:00 [facility] HEPATIC FUNCTION PANEL 2021-11-10 06:58[facility] & AUTO 2021-11-10 06:58:00 [facility] CBC W/PLT COUNT & AUTO 2021-11-10 06:58:00 [facility] POCT-GLUCOSE METER 2021-11-10 06:54:00 Juventino Smith [facility] POCT-GLUCOSE METER 2021-11-09 21:49:00 Juventino Smith [facility] POCT-GLUCOSE METER 2021-11-09 16:10:00 Juventino Smith [facility] POCT-GLUCOSE METER 2021-11-09 12:19:00 Juventino Smith [facility] VENOUS DOPPLER LEGS 2021-11-09 10:33:00 Velma Bustamante [facility] XR CHEST 1 VIEW PORTABLE / 2021-11-09 07:32:00 Velma Bustamante [facility] POCT-GLUCOSE METER 2021-11-09 07:22:00 Jvuentino Smith [facility] BASIC METABOLIC PANEL 2021-11-09 04:06:00 Cheri, [facility] HEPATIC FUNCTION PANEL 2021-11-09 04:06:[address] [facility] CBC W/PLT COUNT & AUTO 2021-11-09 04:06:00 Cheri [facility] DIFFERENTIAL [facility] HC LAB HIV-1 AG W/HIV-1&2 2021-11-09 04:06:00 Hubert dominic Med[place] [facility] AB [facility] HEPATITIS PANEL, ACUTE 2021-11-09 04:06:00 Hector Gaspar [facility] HEMOGLOBIN A1C 2021-11-09 04:06:00 Hector Gapsar [facility] APTT 2021-11-09 04:06:00 Cheri [facility] CBC W/PLT COUNT & AUTO 2021-11-09 04:06:00 Cheri [facility] DIFFERENTIAL [facility] TROPONIN I 2021-11-09 00:21:00 Cheri [facility] ECG 12-LEAD 2021-11-08 21:26:59 Unknown, Hl7 [facility] POCT-GLUCOSE METER 2021-11-08 20:43:00 Juventino Smith [facility] APTT 2021-11-08 19:42:00 Cheri, [facility] TROPONIN I 2021-11-08 16:28[facility] 2021-11-08 16:27:00 Juventino Smith [facility] SPUTUM CULTURE + GRAM 2021-11-08 15:33:00 Guera Yarbrough [facility] RENAL COMPLETE 2021-11-08 12:14:00 Cheri, [facility] POCT-GLUCOSE METER 2021-11-08 11:32:00 Juventino Smith [facility] APTT 2021-11-08 11:22:00 Cheri, [facility] TROPONIN I 2021-11-08 11:22:00 [facility] BASIC METABOLIC PANEL 2021-11-08 11:22:00 Chester Jarvis [facility] 2D ECHO W/ DOPPLER 2021-11-08 10:36:38 [facility] CT CHEST WITHOUT IV 2021-11-08 09:34:00 Cheri [facility] CONTRAST [facility] NM LUNG PERFUSION SCAN 2021-11-08 09:20:[address] [facility] XR CHEST 1 VIEW PORTABLE / 2021-11-08 08:23:00 Cameron Jarvisal Emilia [facility] BEDSIDE Center APTT 2021-11-08 05:53:00 Cheri, [facility] LACTIC ACID, VENOUS 2021-11-08 05:07[facility]TIGEN, URINE 2021-11-08 04:17:00 Cheri [facility] URINALYSIS WITH 2021-11-08 04:16:00 Cheri, [facility] MICROSCOPIC IF INDICATED [facility] URINALYSIS MICROSCOPIC 2021-11-08 04:16[facility] 2021-11-08 04:07:[facility] BLOOD [facility] 2021-11-08 04:02:00 [facility] POCT-GLUCOSE METER 2021-11-08 04:00:00 Cheri [facility] PROCALCITONIN 2021-11-08 03:59:00 Cheri, [facility] BASIC METABOLIC PANEL 2021-11-08 03:58:00 [facility] HEPAT[facility]EL 2021-11-08 03:58[facility]00 [facility] HEM[facility]C 2021-11-08 03:58:00 [facility] PROT[facility]BIN TIME/INR 2021-11-08 03:58:00 Cheri [facility] MAGNESIUM 2021-11-08 03:58:00 Cheri, [facility] PHOSPHORUS 2021-11-08 03:58:00 Cheri, [facility] CBC W/PLT COUNT & AUTO 2021-11-08 03:58:00 [facility] B-TYPE NATRIURETIC FACTOR 2021-11-08 03:58:00 Cheri [facility] (BNP) [facility] D-DIMER 2021-11-08 03:58:00 Cheri, [facility] CBC W/PLT COUNT & AUTO 2021-11-08 03:58:00 [facility] DI[facility]ENTIAL [facility] ECG 12-LEAD 2021-11-08 03:52:58 [facility] 1 VIEW PORTABLE / 2021-11-08 03:47:00 Cheri [facility] BEDSIDE [facility] XR ABDOMEN/KUB 1 VIEW 2021-11-08 03:47:00 Jen Alonzo ALEXEI [facility] BLOOD GAS, ARTERIAL 2021-11-08 03:29:00 Jen Alonzo [facility] EKG-SCANNED 2021-11-08 00:00:00 ProviderClaude [facility] CT Lung solitary pulm 2020-04-07 00:00:00 [facility] nodule [id number] Plan of Care Planned Activity Planned Date Details Comments Source Future Scheduled 2023-02-[address] [facility] 00:00:00 (Season Ended) [code = Medic al Center INFLUENZA VACCINE (Season Ended)] Future Scheduled 2023-02-[address] [facility] 00:00:00 (Season Ended) [code = Medic ar Center INFLUENZA VACCINE (Season Ended)] Future Scheduled [...] RISK Medical C enter SCREENING] Future Scheduled 2022-06-[address] [...] [facility] Pending 00:[facility]:00 pulm nodule [id number] [code = 19349] Diagnostic Test 2020-04-[address] Lung solitary [facility] Pending 00:00:00 pulm nodule [id number] [code = 81350] Future Scheduled [address] [facility] Test 00:00:00 aneurysm screening Medical C enter (procedure) [code = 411713263] Future Scheduled [address] [facility] Test 00:00:00 aneurysm screening Medical C enter (procedure) [code = 362218307] Future Scheduled [address] [facility] Test 00:00:00 aneurysm screening Medical C enter (procedure) [code = 484180640] Future Scheduled [address] [facility] Test 00:00:00 aneurysm screening Medical C enter (procedure) [code = 589858550] Future Scheduled [address] [facility] Test 00:00:00 aneurysm screening Medical C enter (procedure) [code = 973658189] Future Scheduled [address] [facility] Test 00:00:00 aneurysm screening Medical C enter (procedure) [code = 685500827] Future Scheduled 2002 SHINGLES VACCINES (1 [facility] [...] Medica l Center colon (procedure) [code = 503638435] Future Scheduled [address] [facility] 00:[facility]:00 malignant neoplasm of Medica l Center colon (procedure) [code = 873656166] Future Scheduled [address] [facility] 00:00:00 malignant neoplasm of Medica l Center colon (procedure) [code = 162061574] Future Scheduled [address] [facility] 00:00:00 malignant neoplasm of Medica l Center colon (procedure) [code = 813488583] Future Scheduled 1952 Sigmoidoscopy [facility] S[facility]] Medical Cente r Future Scheduled [address] [facility] 00:00:00 (combo) [code = CT Medical C enter Colonography (combo)] Future Scheduled [address] [facility] 00:00:00 malignant neoplasm of Medica l Center colon (procedure) [code = 042009327] Future Scheduled [address] [facility] 00:00:00 malignant neoplasm of Medica l Center colon (procedure) [code = 808806681] Future Scheduled [address] [facility] 00:00:00 malignant neoplasm of Medica l Center colon (procedure) [code = 864192925] Future Scheduled [address] [facility] 00:00:00 malignant neoplasm of Medica [facility] Center colon (procedure) [code = 717406213] Future Scheduled 1952 Sigmoidoscopy [facility] S[facility]oscopy] Medical Cente r Future Scheduled [address] [facility] 00:00:00 (combo) [code = CT Medical C enter Colonography (combo)] Future Scheduled [address] [facility] 00:00:00 malignant neoplasm of Medica l Center colon (procedure) [code = 782755084] Future Scheduled [address] [facility] 00:00:00 malignant neoplasm of Medica l Center colon (procedure) [code = 681978853] Future Scheduled [address] [facility] 00:00:00 malignant neoplasm of Medica l Center colon (procedure) [code = 474188418] Future Scheduled [address] [facility] 00:00:00 malignant neoplasm of Medica l Center colon (procedure) [code = 805861984] Future Scheduled 1952 Sigmoidoscopy [facility] [address] [facility] 00:00:00 (combo) [code = CT Medical C enter Colonography (combo)] Future Scheduled [address] [facility] 00:00:00 malignant neoplasm of Medica l Center colon (procedure) [code = 899552813] Future Scheduled [address] [facility] 00:00:00 malignant neoplasm of Medica l Center colon (procedure) [code = 654779229] Future Scheduled [address] [facility] 00:00:00 malignant neoplasm of Medica l Center colon (procedure) [code = 982463668] Future Scheduled [address] [facility] 00:00:00 malignant neoplasm of Medica l Center colon (procedure) [code = 951974142] Future Scheduled 1952 Sigmoidoscopy [facility] [address] [facility] 00:00:00 (combo) [code = CT Medical C enter Colonography (combo)] Future Scheduled [address] [facility] (procedure) [code = 199417723] Future Scheduled [address] [facility] 00:[facility]:00 [facility] colon (procedure) [code = 178680363] Future Scheduled [address] [facility] 00:[facility]:00 [facility] colon (procedure) [code = 870538773] Future Scheduled [address] [facility] 00:[facility]:00 [facility] colon (procedure) [code = 102309919] Future Scheduled 1952 Sigmoidoscopy [facility] Future Scheduled [address] [facility]00 (combo) [code = CT Medical C enter Colonography (combo)] Future Scheduled [address] [facility] 00:00:00 [facility] colon (procedure) [code = 817003620] Future Scheduled [address] [facility] 00:00:00 [facility] colon (procedure) [code = 507440000] Future Scheduled [address] [facility] 00:00:00 [facility] colon (procedure) [code = 290291263] Future Scheduled [address] [facility] 00:00:00 [facility] colon (procedure) [code = 752864079] Future Scheduled 1952 Sigmoidoscopy [facility]] Medical Cente r Future Scheduled [address] [facility] 00:00:00 (combo) [code = CT Medical C enter Colonography (combo)] Future Scheduled [address] [facility] 00:00:00 [facility] colon (procedure) [code = 626404199] Future Scheduled [address] [facility] 00:00:00 [facility] colon (procedure) [code = 610151684] Future Scheduled [address] [facility] 00:00:00 [facility] colon (procedure) [code = 002992374] Future Scheduled [address] [facility] 00:00:00 [facility] colon (procedure) [code = 648257400] Future Scheduled 1952 Sigmoidoscopy [facility]] Medical May r Future Scheduled [address] [facility] 00:00:00 (combo) [code = CT Medical C enter Colonography (combo)] Future Scheduled [address] [facility] 00:00:00 [facility] colon (procedure) [code = 625444644] Future Scheduled [address] [facility] 00:00:00 [facility] colon (procedure) [code = 991773630] Future Scheduled [address] [facility] 00:00:00 [facility] colon (procedure) [code = 926382984] Future Scheduled [address] [facility] 00:00:00 [facility] colon (procedure) [code = 635317193] Future Scheduled 1952 Sigmoidoscopy [facility]oscopy] Medical May r Encounters Start End Encounter Admission Attending Care Care Encounter Source Date/Time Date/Time Type Type Clinicians Facility Department ID 2022-10-05 2022-10-05 Orders Doctor CASTRO 1.2.840.114 [id number] Univers 00:00:00 00:00:00 Only Unassigned, MARTHA 350.1.13.10 ity of [facility] 4.2.7.2.686 Rolando as [phone] [facility] [address] 2022-03-31 2022-03-31 Orders Doctor CASTRO 1.2.840.114 [id number] Univers 00:00:00 00:00:00 Only Unassigned, MARTHA 350.1.13.10 ity of [facility] [facility] 4.2.7.2.686 Rolando as [phone] [facility] [address] 2022-03-02 2022-03-02 Orders Doctor MATTHEW Mathew2.840.114 [id number] Univers 00:00:00 00:00:00 Only Unassigned, MARTHA 350.1.13.10 ity of [facility] 4.2.7.2.686 [place] as [phone] [address] 2022-02-26 2022-02-26 Orders Doctor MATTHEW 1.2.840.114 [id number] Univers 00:00:00 00:00:00 Only Unassigned, MARTHA 350.1.13.10 ity of [facility] 4.2.7.2.686 [place] as [id number] [address] 2022-02-23 2022-02-23 Care Marlisa 2.16.840. 2.16.840.1. CLAC [id number] [facility] 21:00:00 21:30:00 OnHeather [place] [id number] 948286.4.6. [facility] 4.6. [id number] 2022-02-23 2022-02-23 Transition ENE Wang 1.2.840.114 [id number] Univers 00:00:00 00:00:00 of Care Nyasia B LEHMAN 350.1.13.10 [phone] [address] 2022-02-22 2022-02-22 Transition ENE Wang 1.2.840.114 [id number] Univers 00:00:00 00:00:00 of Care Nyasia B LEH[place] 350.1.13.10 [id number] [address] 2022-02-22 2022-02-22 Orders Doctor MATTHEW 1.2.840.114 [id number] Univers 00:00:00 00:00:00 Only Unassigned, MARTHA 350.1.13.10 ity of [facility] [facility] 4.2.7.2.686 [place] [phone] [address] 2022-02-20 2022-02-20 Emergency X [facility] ERT [id number] Univers 18:53:00 20:00:00 FELICIA loyola [facility] 2022-02-20 2022-02-20 Emergency [facility] 1.2.840.114 [id number] Univers 18:53:00 20:00:00 Felicia CONSTANTINO 350.1.13.10 [place] [phone] [facility] [address] ([facility]) 2022-02-20 2022-02-20 Emergency X WOLFGANG [facility] ERT [id number] Univers 18:53:00 20:00:00 FELICIA derekdavid o f [facility] 2022-02-14 2022-02-20 Hospital Osbaldo Aguiar [facility] 1.2.840.1 14 [id number] Univers 14:51:00 17:13:00 Encounter Corwin Walden [facility] 350.1.13.10 ity of [place] 4.2.7.2.686 T Carmelo Foster [id number] [facility] [address] ([facility]) 2022-02-14 2022-02-20 Inpatient X [facility] [id number] Univers 14:51:00 17:13:00 CARMELO itdavid [facility] 2022-02-17 2022-02-[address] [facility] 1.2.840.114 [id number] Univers 09:00:00 11:00:00 [facility] 350.1.13.10 it [place] [id number] [facility] [address] ([facility]) 2022-01-08 2022-01-08 Outpatient DMG [facility] [id number] Devoted 07:10:00 07:10:00 0715 [facility] l [facility] 2022-01-08 2022-01-08 Outpatient DMG [facility] [id number] 023 Dev[facility] 00:00:00 00:00:00 0506 Medica l Group 2021-12-09 2021-12-09 Outpatient EL ALAM, [facility] [id number] [facility] 00:00:00 00:00:00 TONY 2021-12-08 2021-12-08 Telephone Haven Ortiz [facility] [id number] [facility] 00[facility]00 [facility] 2021-12-08 2021-12-08 Telephone Haven Ortiz [facility] [id number] 00:[facility] 00[facility]00 N [facility] 2021-11-08 2021-11-12 Hospital ER Jen Alonzo [facility] [id number] 03:10:00 20:10:00 Encounter Juventino Smith elsy Cannon, Rickie [facility] 2021-11-08 2021-11-12 Inpatient ER GRAHAM CANNON Medical ICU [id number] [facility] 03:10:00 20:10:00 [facility] 2021-11-10 2021-11-10 Travel [facility] [id number] [facility] 00[facility]00 [facility] 2021-10-11 2021-10-11 Emergency X YARINJ, [facility] ERT [id number] Univers 05:52:00 06:48:00 [facility] 2021-10-11 2021-10-11 Emergency [facility] 1.2.216.158 [id number] Univers 05:52:00 06:48:00 [facility] 350.1.13.10 [facility]Day [facility] 4.2.7.2.686 [facility] [id number] [place] [id number] Branch 2020-11-21 2020-11-21 Outpatient DMG DMG [id number] 021 [facility] 08:00:00 08:00:00 0528 Medica l Group 2020-05-05 2020-05-[address] [facility] [address] [facility] 13:21:00 15:55:00 PASTORA 2020-04-15 2020-04-15 DOLLY [facility] [id number] [place] 14:00:00 14:00:00 t; Carlos DESIR [facility] Derick FRANCIS M.D. [place] 2020-04-07 2020-04-07 DOLLY Mai Pulmonary & [id number] [place] 13:30:00 13:30:00 t; PASTORA LOPEZ Sleep Physi ci Carlos GUILLORY M.D. Results Test Description Test Time Test Comments Results Result Comments Source BLOOD CULTURE SCREEN 2022-02-20 19:01:45 Test Item Value Reference Range Interpretation Comme nts Blood Culture-Aerobic (test No organisms isolated No growth Previous preliminary code = 02983-0) verified res ult was Culture In Prog [...] No growth Previous preliminary (test code = 57935-1) verifi ed result was Culture In Prog [...] CDT Lab Interpretation (test Normal code = 40072-4) [facility] [id number] 19:01:45 Test Item Value Reference Range Interpretation Comments Blood Culture-Aerobic No organisms No growth Previo us (test code = 32781-2) isolated prelim inary verified result was Culture [...] Culture-Anaerobic isolated preliminar y (test code = 81280-3) verifi ed result was Culture In Progress [...] CDT Lab Interpretation Normal (test code = 85741-9) [facility] CULTURE [id number] 19:01:45 Test Item Value Reference Range Interpretation Comments Blood Culture-Aerobic No organisms No growth Previo us (test code = 31598-6) isolated prelim inary verified result was Culture [...] Culture-Anaerobic isolated preliminar y (test code = 59591-8) verifi ed result was Culture In Progress [...] CDT Lab Interpretation Normal (test code = 06618-4) [facility] CULTURE [id number] 19:01:45 Test Item Value Reference Range Interpretation Comments Blood Culture-Aerobic No organisms No growth Previo us (test code = 69695-8) isolated prelim inary verified result was Culture [...] Culture-Anaerobic isolated preliminar y (test code = 31157-1) verifi ed result was Culture In Progress on 02/15/2022 at 17 02 CDTPrevious preliminary verified result was No growth a t 24 hours on 02/16/2022 at 14 01 CDTPrevious preliminary verified result was No growth a t 48 hours on 02/17/2022 at 14 CDTPrevious preliminary verified result was No growth a t 72 hours on 02/18/2022 at 14 CDT Lab Interpretation Normal (test code = 57227-2) [facility] GLUCOSE (AUTOMATED)2022-02-20 18:40:11 Test Item Value Reference Range Interpretation Comments POCT GLU (test code = 1303129748) 168 mg/dL 70-110 H Lab Interpretation (test code = Abnormal 13786-9) [facility] GLUCOSE (AUTOMATED)2022-02-20 18:40:11 Test Item Value Reference Range Interpretation Comments POCT GLU (test code = 9614942665) 168 mg/dL 70-110 H Lab Interpretation (test code = Abnormal 75457-4) [facility] GLUCOSE (AUTOMATED)2022-02-20 14:46:14 Test Item Value Reference Range Interpretation Comments POCT GLU (test code = 2858500242) 235 mg/dL 70-110 H Lab Interpretation (test code = Abnormal 32872-3) [facility] GLUCOSE (AUTOMATED)2022-02-20 14:46:14 Test Item Value Reference Range Interpretation Comments POCT GLU (test code = 3524220491) 235 mg/dL 70-110 H Lab Interpretation (test code = Abnormal 94329-4) [facility] METABOLIC PANEL (NA, K, CL, CO2, GLUCOSE, BUN, CREATININE, CA)2022-02-20 02:03:45 Test Item Value Reference Range Interpretation Comments NA (test code = 131 mmol/L 135-145 L 2112610542) K (test code = 4.9 mmol/L 3.5-5.0 5869991865) CL (test code = 102 mmol/L 98-108 4790085083) CO2 TOTAL (test code = 25 mmol/L 23-31 0544652881) AGAP (test code = 2-16 0143703570) BUN (test code = 52 mg/dL 7-23 H 7089002278) GLUCOSE (test code = 143 mg/dL 70-110 H 5865174790) CREATININE (test code = 1.40 mg/dL 0.60-1.25 H 7304930252) CALCIUM (test code = 8.3 mg/dL 8.6-10.6 L 3370477011) eGFR (test code = mL/min/1.73m2 2431969521) JUAN (test code = JUAN) Association of [...] tests). Lab Interpretation Abnormal (test code = 90106-2) [facility] (NA, K, CL, CO2, GLUCOSE, BUN, CREATININE, CA)2022-02-20 02:03:45 Test Item Value Reference Range Interpretation Comments NA (test code = 131 mmol/L 135-145 L 6900832198) K (test code = 4.9 mmol/L 3.5-5.0 5765334727) CL (test code = 102 mmol/L 98-108 3374186774) CO2 TOTAL (test code = 25 mmol/L 23-31 6850454062) AGAP (test code = 2-16 7757933142) BUN (test code = 52 mg/dL 7-23 H 7556419172) GLUCOSE (test code = 143 mg/dL 70-110 H 2393211075) CREATININE (test code = 1.40 mg/dL 0.60-1.25 H 8463020370) CALCIUM (test code = 8.3 mg/dL 8.6-10.6 L 8432291906) eGFR (test code = mL/min/1.73m2 8186339997) JUAN (test code = JUAN) Association of [...] tests). Lab Interpretation Abnormal (test code = 29503-2) [facility] GLUCOSE (AUTOMATED)2022-02-20 01:02:55 Test Item Value Reference Range Interpretation Comments POCT GLU (test code = 153 mg/dL 70-110 H Notifi ed Provider [id number]) Lab Interpretation (test Abnormal code = 74141-7) [facility] GLUCOSE (AUTOMATED)2022-02-20 01:02:55 Test Item Value Reference Range Interpretation Comments POCT GLU (test code = 153 mg/dL 70-110 H Notifi ed Provider 3421190855) Lab Interpretation (test Abnormal code = 29109-3) [facility] GLUCOSE (AUTOMATED)2022-02-19 22:29:08 Test Item Value Reference Range Interpretation Comments POCT GLU (test code = 4920483481) 137 mg/dL 70-110 H Lab Interpretation (test code = Abnormal 66782-3) [facility] GLUCOSE (AUTOMATED)2022-02-19 22:29:08 Test Item Value Reference Range Interpretation Comments POCT GLU (test code = 7192043171) 137 mg/dL 70-110 H Lab Interpretation (test code = Abnormal 09667-1) [facility] GLUCOSE (AUTOMATED)2022-02-19 16:28:48 Test Item Value Reference Range Interpretation Comments POCT GLU (test code = 6765517026) 200 mg/dL 70-110 H Lab Interpretation (test code = Abnormal 63905-1) [facility] GLUCOSE (AUTOMATED)2022-02-19 16:28:48 Test Item Value Reference Range Interpretation Comments POCT GLU (test code = 3968665261) 200 mg/dL 70-110 H Lab Interpretation (test code = Abnormal 79138-9) [facility] GLUCOSE (AUTOMATED)2022-02-19 13:19:05 Test Item Value Reference Range Interpretation Comments POCT GLU (test code = 4896452422) 152 mg/dL 70-110 H Lab Interpretation (test code = Abnormal 22108-5) [facility] GLUCOSE (AUTOMATED)2022-02-19 13:19:05 Test Item Value Reference Range Interpretation Comments POCT GLU (test code = 3743495539) 152 mg/dL 70-110 H Lab Interpretation (test code = Abnormal 25163-8) [facility] GLUCOSE (AUTOMATED)2022-02-19 01:15:20 Test Item Value Reference Range Interpretation Comments POCT GLU (test code = 215 mg/dL 70-110 H Notifi ed Provider [id number]) Lab Interpretation (test Abnormal code = 94231-6) [facility] GLUCOSE (AUTOMATED)2022-02-19 01:15:20 Test Item Value Reference Range Interpretation Comments POCT GLU (test code = 215 mg/dL 70-110 H Notifi ed Provider 5820379820) Lab Interpretation (test Abnormal code = 33001-3) [facility] GLUCOSE (AUTOMATED)2022-02-18 21:59:14 Test Item Value Reference Range Interpretation Comments POCT GLU (test code = 6733542327) 171 mg/dL 70-110 H Lab Interpretation (test code = Abnormal 02894-5) [facility] GLUCOSE (AUTOMATED)2022-02-18 21:59:14 Test Item Value Reference Range Interpretation Comments POCT GLU (test code = 3007701842) 171 mg/dL 70-110 H Lab Interpretation (test code = Abnormal 98714-7) [facility]2022-08-25 20:40:46 Test Item Value Reference Interpretation Comments Range Procalcitonin (test 0.15 ng/mL See_Comment H [Automa josh code = 8319884511) message] The system which generated this result [...] lung abscess/empyema. For further information please refer to:[email or web address] [email or web address] p Lab Interpretation Abnormal (test code = 25254-3) [facility]2022-08-25 20:40:46 Test Item Value Reference Interpretation Comments Range Procalcitonin (test 0.15 ng/mL See_Comment H [Automa josh code = 0532162388) message] The system which generated this result [...] lung abscess/empyema. For further information please refer to:[email or web address] p Lab Interpretation Abnormal (test code = 47707-5) [facility] GLUCOSE (AUTOMATED)2022-02-18 17:32:13 Test Item Value Reference Range Interpretation Comments POCT GLU (test code = 9405040748) 129 mg/dL 70-110 H Lab Interpretation (test code = Abnormal 38941-1) [facility] GLUCOSE (AUTOMATED)2022-02-18 17:32:13 Test Item Value Reference Range Interpretation Comments POCT GLU (test code = 7720609181) 129 mg/dL 70-110 H Lab Interpretation (test code = Abnormal 81848-6) [facility] GLUCOSE (AUTOMATED)2022-02-18 12:59:31 Test Item Value Reference Range Interpretation Comments POCT GLU (test code = 7125279572) 89 mg/dL 70-110 Lab Interpretation (test code = Normal 05765-7) [facility] GLUCOSE (AUTOMATED)2022-02-18 12:59:31 Test Item Value Reference Range Interpretation Comments POCT GLU (test code = 1115043274) 89 mg/dL 70-110 Lab Interpretation (test code = Normal 67444-4) [facility] METABOLIC PANEL (NA, K, CL, CO2, GLUCOSE, BUN, CREATININE, CA)2022-02-18 09:38:02 Test Item Value Reference Range Interpretation Comments NA (test code = 133 mmol/L 135-145 L 8926789602) K (test code = 4.5 mmol/L 3.5-5.0 0365485307) CL (test code = 106 mmol/L 98-108 0275177043) CO2 TOTAL (test code = 23 mmol/L 23-31 8063627647) AGAP (test code = 2-16 2603340307) BUN (test code = 51 mg/dL 7-23 H 7535228518) GLUCOSE (test code = 81 mg/dL 70-110 7688418349) CREATININE (test code = 1.49 mg/dL 0.60-1.25 H 3883524562) CALCIUM (test code = 8.1 mg/dL 8.6-10.6 L 1084650116) eGFR (test code = mL/min/1.73m2 0958994234) JUAN (test code = JUAN) Association of [...] tests). Lab Interpretation Abnormal (test code = 17834-3) [facility] METABOLIC PANEL (NA, K, CL, CO2, GLUCOSE, BUN, CREATININE, CA)2022-02-18 09:38:02 Test Item Value Reference Range Interpretation Comments NA (test code = 133 mmol/L 135-145 L 2557409375) K (test code = 4.5 mmol/L 3.5-5.0 4704464804) CL (test code = 106 mmol/L 98-108 3310635487) CO2 TOTAL (test code = 23 mmol/L 23-31 2965105950) AGAP (test code = 2-16 9071839409) BUN (test code = 51 mg/dL 7-23 H 4601475841) GLUCOSE (test code = 81 mg/dL 70-110 9227917109) CREATININE (test code = 1.49 mg/dL 0.60-1.25 H 0037002745) CALCIUM (test code = 8.1 mg/dL 8.6-10.6 L 1257499356) eGFR (test code = mL/min/1.73m2 2807174037) JUAN (test code = JUAN) Association of [...] tests). Lab Interpretation Abnormal (test code = 72734-5) [facility] WITH [id number] 09:17:24 Test Item Value Reference Range Interpretation Comments WBC (test code = See_Comment [Automated 5390-2) message] The sy stem which generated this [...] RDW-SD (test code = 47.7 fL 38.5-51.6 47626-0) RDW-CV (test code = 14.3 % 12.1-15.4 788-0) PLT (test code = See_Comment [Automated 777-3) message] The sy stem which generated this result transmitted reference range : 150 - 328 10*3/ ?L. The reference r maxi was not used to interpret this result as normal/abnormal . MPV (test code = 10.0 fL 9.8-13.0 66847-1) NRBC/100 WBC (test See_Comment [Automat ed code = 6248449984) message] The system which generated this result transmitted reference range : 0.0 - 10.0 /100 WBCs. The refer ence range was not u sed to interpret th is result as normal/abnormal . NRBC x10^3 (test code See_Comment [Auto mated = 1138362668) message] The s ystem which generated this result transmitted reference range : 10*3/?L. The reference range was not used to interpret this result as normal/abnormal . GRAN MAT (NEUT) % 55.8 % (test code = 770-8) IMM GRAN % (test code 4.10 % = 5487782298) LYMPH % (test code = 30.1 % 736-9) MONO % (test code = 7.1 % 5905-5) EOS % (test code = 2.7 % 713-8) BASO % (test code = 0.2 % 706-2) GRAN MAT x10^3(ANC) 5.15 10*3/uL 1.99-6.95 (test code = 9298107944) IMM GRAN x10^3 (test 0.38 10*3/uL 0.00-0.06 H code = 6783425876) LYMPH x10^3 (test code 2.78 10*3/uL 1.09-3.23 = 731-0) MONO x10^3 (test code 0.66 10*3/uL 0.36-1.02 = 742-7) EOS x10^3 (test code = 0.25 10*3/uL 0.06-0.53 711-2) BASO x10^3 (test code 0.01-0.09 = 704-7) TOXIC CHANGES (test Present A code = 803-7) Lab Interpretation Abnormal (test code = 40037-4) [facility] WITH [id number] 09:17:24 Test Item Value Reference Range Interpretation [...] RDW-SD (test code = 47.7 fL 38.5-51.6 53605-4) RDW-CV (test code = 14.3 % 12.1-15.4 788-0) PLT (test code = See_Comment [Automated 777-3) message] The sy stem which generated this result transmitted reference range : 150 - 328 10*3/ ?L. The reference r maxi was not used to interpret this result as normal/abnormal . MPV (test code = 10.0 fL 9.8-13.0 67137-6) NRBC/100 WBC (test See_Comment [Automat ed code = 9893295861) message] The system which generated this result transmitted reference range : 0.0 - 10.0 /100 WBCs. The refer ence range was not u sed to interpret th is result as normal/abnormal . NRBC x10^3 (test code See_Comment [Auto mated = 7701461583) message] The s ystem which generated this result transmitted reference range : 10*3/?L. The reference range was not used to interpret this result as normal/abnormal . GRAN MAT (NEUT) % 55.8 % (test code = 770-8) IMM GRAN % (test code 4.10 % = 0038700720) LYMPH % (test code = 30.1 % 736-9) MONO % (test code = 7.1 % 5905-5) EOS % (test code = 2.7 % 713-8) BASO % (test code = 0.2 % 706-2) GRAN MAT x10^3(ANC) 5.15 10*3/uL 1.99-6.95 (test code = 1749977087) IMM GRAN x10^3 (test 0.38 10*3/uL 0.00-0.06 H code = 1025985581) LYMPH x10^3 (test code 2.78 10*3/uL 1.09-3.23 = 731-0) MONO x10^3 (test code 0.66 10*3/uL 0.36-1.02 = 742-7) EOS x10^3 (test code = 0.25 10*3/uL 0.06-0.53 711-2) BASO x10^3 (test code 0.01-0.09 = 704-7) TOXIC CHANGES (test Present A code = 803-7) Lab Interpretation Abnormal (test code = 17176-7) [facility] GLUCOSE (AUTOMATED)2022-02-18 01:16:25 Test Item Value Reference Range Interpretation Comments POCT GLU (test code = 2926364498) 170 mg/dL 70-110 H Lab Interpretation (test code = Abnormal 78701-9) [facility] GLUCOSE (AUTOMATED)2022-02-18 01:16:25 Test Item Value Reference Range Interpretation Comments POCT GLU (test code = 1502511587) 170 mg/dL 70-110 H Lab Interpretation (test code = Abnormal 51779-1) [facility] GLUCOSE (AUTOMATED)2022-02-17 21:45:32 Test Item Value Reference Range Interpretation Comments POCT GLU (test code = 5376474257) 117 mg/dL 70-110 H Lab Interpretation (test code = Abnormal 47445-0) [facility] GLUCOSE (AUTOMATED)2022-02-17 21:45:32 Test Item Value Reference Range Interpretation Comments POCT GLU (test code = 6525518673) 117 mg/dL 70-110 H Lab Interpretation (test code = Abnormal 46660-8) [place] [id number] 14:10:58 Test Item Value Reference Range Interpretation Comments APTT Patient (test code See_Comment H [Au tomated message] = 3173-2) The system Jamalon generated this result transmitted ref erence range: 26 - 36 Seconds. The reference range was not used to int erpret this result as normal/abnormal . Lab Interpretation (test Abnormal code = 56813-7) [place] [id number] 14:10:58 Test Item Value Reference Range Interpretation Comments APTT Patient (test code See_Comment H [Au tomated message] = 3173-2) The system Jamalon generated this result transmitted ref erence range: 26 - 36 Seconds. The reference range was not used to int erpret this result as normal/abnormal . Lab Interpretation (test Abnormal code = 43039-7) [facility] GLUCOSE (AUTOMATED)2022-02-17 13:01:31 Test Item Value Reference Range Interpretation Comments POCT GLU (test code = 6010749593) 83 mg/dL 70-110 Lab Interpretation (test code = Normal 09667-2) [facility] 13:01:31 Test Item Value Reference Range Interpretation Comments POCT GLU (test code = 8138129122) 83 mg/dL 70-110 Lab Interpretation (test code = Normal 39795-2) [facility] WITH [id number] 09:49:28 Test Item Value Reference Range Interpretation [...] RDW-SD (test code = 48.0 fL 38.5-51.6 41279-8) RDW-CV (test code = 14.4 % 12.1-15.4 788-0) PLT (test code = See_Comment [Automated 777-3) message] The sy stem which generated this result transmitted reference range : 150 - 328 10*3/ ?L. The reference r maxi was not used to interpret this result as normal/abnormal . MPV (test code = 10.1 fL 9.8-13.0 69500-6) NRBC/100 WBC (test See_Comment [Automat ed code = 6383809988) message] The system which generated this result transmitted reference range : 0.0 - 10.0 /100 WBCs. The refer ence range was not u sed to interpret th is result as normal/abnormal . NRBC x10^3 (test code See_Comment [Auto mated = 1534019660) message] The s ystem which generated this result transmitted reference range : 10*3/?L. The reference range was not used to interpret this result as normal/abnormal . SEG % (test code = 60 % 33-76 06132-0) MYELO % (test code = 5 % See_Comment H [Autom ated 60270-8) message] The sy stem which generated this result transmitted reference range : <=0. The refere nce range was not u sed to interpret th is result as normal/abnormal . LYMPH % (test code = 17 % 14-54 08425-4) LG GRAN LYMPH % (test 9 % See_Comment H [Auto mated code = 72382-7) message] The system which generated this result transmitted reference range : <=0. The refere nce range was not u sed to interpret th is result as normal/abnormal . MONO % (test code = 7 % 0-4 H 49077-5) EOS % (test code = 2 % 0-3 53145-7) ANC (test code = 6.32 10*3/uL 1.99-6.95 753-4) TOXIC CHANGES (test Present A code = 803-7) Lab Interpretation Abnormal (test code = 68491-3) [facility] WITH [id number] 09:49:28 Test Item Value Reference Range Interpretation [...] RDW-SD (test code = 48.0 fL 38.5-51.6 17311-9) RDW-CV (test code = 14.4 % 12.1-15.4 788-0) PLT (test code = See_Comment [Automated 777-3) message] The sy stem which generated this result transmitted reference range : 150 - 328 10*3/ ?L. The reference r maxi was not used to interpret this result as normal/abnormal . MPV (test code = 10.1 fL 9.8-13.0 57360-1) NRBC/100 WBC (test See_Comment [Automat ed code = 2889808722) message] The system which generated this result transmitted reference range : 0.0 - 10.0 /100 WBCs. The refer ence range was not u sed to interpret th is result as normal/abnormal . NRBC x10^3 (test code See_Comment [Auto mated = 1006344659) message] The s ystem which generated this result transmitted reference range : 10*3/?L. The reference range was not used to interpret this result as normal/abnormal . SEG % (test code = 60 % 33-76 39626-8) MYELO % (test code = 5 % See_Comment H [Autom ated 35780-3) message] The sy stem which generated this result transmitted reference range : <=0. The refere nce range was not u sed to interpret th is result as normal/abnormal . LYMPH % (test code = 17 % 14-54 88454-6) LG GRAN LYMPH % (test 9 % See_Comment H [Auto mated code = 47190-2) message] The system which generated this result transmitted reference range : <=0. The refere nce range was not u sed to interpret th is result as normal/abnormal . MONO % (test code = 7 % 0-4 H 85220-5) EOS % (test code = 2 % 0-3 99545-3) ANC (test code = 6.32 10*3/uL 1.99-6.95 753-4) TOXIC CHANGES (test Present A code = 803-7) Lab Interpretation Abnormal (test code = 34047-3) [facility] METABOLIC PANEL (NA, K, CL, CO2, GLUCOSE, BUN, CREATININE, CA)2022-02-17 09:47:07 Test Item Value Reference Range Interpretation Comments NA (test code = 130 mmol/L 135-145 L 0015713217) K (test code = 4.5 mmol/L 3.5-5.0 1506405052) CL (test code = 103 mmol/L 98-108 4005895102) CO2 TOTAL (test code = 26 mmol/L 23-31 9454638483) AGAP (test code = 2-16 L 9821935046) BUN (test code = 58 mg/dL 7-23 H 4123216656) GLUCOSE (test code = 92 mg/dL 70-110 9493606758) CREATININE (test code = 1.55 mg/dL 0.60-1.25 H 3024331608) CALCIUM (test code = 7.8 mg/dL 8.6-10.6 L 2011277907) eGFR (test code = mL/min/1.73m2 7959941239) JUAN (test code = JUAN) Association of [...] tests). Lab Interpretation Abnormal (test code = 72770-7) [facility]20[facility] 09:47:07 Test Item Value Reference Range Interpretation Comments MAGNESIUM (test code = 6678549510) 2.2 mg/dL 1.7-2.4 Lab Interpretation (test code = Normal 29601-4) [facility] (NA, K, CL, CO2, GLUCOSE, BUN, CREATININE, CA)2022-02-17 09:47:07 Test Item Value Reference Range Interpretation Comments NA (test code = 130 mmol/L 135-145 L 1056648589) K (test code = 4.5 mmol/L 3.5-5.0 6434755701) CL (test code = 103 mmol/L 98-108 7370389958) CO2 TOTAL (test code = 26 mmol/L 23-31 9128744243) AGAP (test code = 2-16 L 5398860763) BUN (test code = 58 mg/dL 7-23 H 9947288100) GLUCOSE (test code = 92 mg/dL 70-110 4064465539) CREATININE (test code = 1.55 mg/dL 0.60-1.25 H 1236197585) CALCIUM (test code = 7.8 mg/dL 8.6-10.6 L 5781273999) eGFR (test code = mL/min/1.73m2 9050563770) JUAN (test code = JUAN) Association of [...] tests). Lab Interpretation Abnormal (test code = 71748-0) [facility]2022-[facility]-24 09:47:07 Test Item Value Reference Range Interpretation Comments MAGNESIUM (test code = 0111092464) 2.2 mg/dL 1.7-2.4 Lab Interpretation (test code = Normal 60664-7) [facility] (NA, K, CL, CO2, GLUCOSE, BUN, CREATININE, CA)2022-02-17 01:31:26 Test Item Value Reference Range Interpretation Comments NA (test code = 128 mmol/L 135-145 L 9684830756) K (test code = 4.7 mmol/L 3.5-5.0 4224441151) CL (test code = 100 mmol/L 98-108 5131404980) CO2 TOTAL (test code = 26 mmol/L 23-31 6852228144) AGAP (test code = 2-16 9953016483) BUN (test code = 61 mg/dL 7-23 H 8725039485) GLUCOSE (test code = 129 mg/dL 70-110 H 7223329388) CREATININE (test code = 1.73 mg/dL 0.60-1.25 H 4478585370) CALCIUM (test code = 7.8 mg/dL 8.6-10.6 L 5548219605) eGFR (test code = mL/min/1.73m2 7599708898) JUAN (test code = JUAN) Association of [...] tests). Lab Interpretation Abnormal (test code = 47962-1) [facility] METABOLIC PANEL (NA, K, CL, CO2, GLUCOSE, BUN, CREATININE, CA)2022-02-17 01:31:26 Test Item Value Reference Range Interpretation Comments NA (test code = 128 mmol/L 135-145 L 3307836691) K (test code = 4.7 mmol/L 3.5-5.0 5256759360) CL (test code = 100 mmol/L 98-108 9304146682) CO2 TOTAL (test code = 26 mmol/L 23-31 6140299638) AGAP (test code = 2-16 5097998653) BUN (test code = 61 mg/dL 7-23 H 9533399007) GLUCOSE (test code = 129 mg/dL 70-110 H 3140090085) CREATININE (test code = 1.73 mg/dL 0.60-1.25 H 0247749535) CALCIUM (test code = 7.8 mg/dL 8.6-10.6 L 5081594254) eGFR (test code = mL/min/1.73m2 3199905730) JUAN (test code = JUAN) Association of [...] tests). Lab Interpretation Abnormal (test code = 76517-3) [facility] [id number] 01:27:27 Test Item Value Reference Range Interpretation Comments APTT Patient (test code See_Comment H [Au tomated message] = 3173-2) The system Jamalon generated this result transmitted ref erence range: 26 - 36 Seconds. The reference range was not used to int erpret this result as normal/abnormal . Lab Interpretation (test Abnormal code = 69514-7) [facility] [id number] 01:27:27 Test Item Value Reference Range Interpretation Comments APTT Patient (test code See_Comment H [Au tomated message] = 3173-2) The system Jamal[employer] generated this result transmitted ref erence range: 26 - 36 Seconds. The reference range was not used to int erpret this result as normal/abnormal . Lab Interpretation (test Abnormal code = 10244-6) [facility] GLUCOSE (AUTOMATED)2022-02-17 01:02:53 Test Item Value Reference Range Interpretation Comments POCT GLU (test code = 4483661833) 130 mg/dL 70-110 H Lab Interpretation (test code = Abnormal 04734-2) [facility] GLUCOSE (AUTOMATED)2022-02-17 01:02:53 Test Item Value Reference Range Interpretation Comments POCT GLU (test code = 6013254922) 130 mg/dL 70-110 H Lab Interpretation (test code = Abnormal 94659-7) [facility] GLUCOSE (AUTOMATED)2022-02-16 21:30:00 Test Item Value Reference Range Interpretation Comments POCT GLU (test code = 6031024600) 125 mg/dL 70-110 H Lab Interpretation (test code = Abnormal 79916-1) [facility] GLUCOSE (AUTOMATED)2022-02-16 21:30:00 Test Item Value Reference Range Interpretation Comments POCT GLU (test code = 8805255440) 125 mg/dL 70-110 H Lab Interpretation (test code = Abnormal 12812-2) [facility]TR[facility] [id number] 18:47:50 Test Item Value Reference Interpretation Comments Range TROPONIN I (test 17.600 ng/mL See_Comment H [Automated code = 2605520753) message] The system which generated this result [...] biotin. Lab Interpretation Abnormal (test code = 09083-0) [facility]TR[facility] [id number] 18:47:50 Test Item Value Reference Interpretation Comments Range TROPONIN I (test 17.600 ng/mL See_Comment H [Automated code = 7649545364) message] The system which generated this result [...] biotin. Lab Interpretation Abnormal (test code = 73542-3) [facility]OL[facility] (NA, K, CL, CO2, GLUCOSE, BUN, CREATININE, CA)2022-02-16 18:35:51 Test Item Value Reference Range Interpretation Comments NA (test code = 129 mmol/L 135-145 L 6285529399) K (test code = 4.8 mmol/L 3.5-5.0 1785339264) CL (test code = 100 mmol/L 98-108 9272159946) CO2 TOTAL (test code = 27 mmol/L 23-31 9209040121) AGAP (test code = 2-16 4963773273) BUN (test code = 62 mg/dL 7-23 H 4485867063) GLUCOSE (test code = 121 mg/dL 70-110 H 1288837180) CREATININE (test code = 1.62 mg/dL 0.60-1.25 H 3869254077) CALCIUM (test code = 8.0 mg/dL 8.6-10.6 L 2227706924) eGFR (test code = mL/min/1.73m2 4023822951) JUAN (test code = JUAN) Association of [...] tests). Lab Interpretation Abnormal (test code = 45599-5) [facility] (NA, K, CL, CO2, GLUCOSE, BUN, CREATININE, CA)2022-02-16 18:35:51 Test Item Value Reference Range Interpretation Comments NA (test code = 129 mmol/L 135-145 L 1130439215) K (test code = 4.8 mmol/L 3.5-5.0 5117444132) CL (test code = 100 mmol/L 98-108 0657959594) CO2 TOTAL (test code = 27 mmol/L 23-31 8757069836) AGAP (test code = 2-16 7267233567) BUN (test code = 62 mg/dL 7-23 H 5019919286) GLUCOSE (test code = 121 mg/dL 70-110 H 2950003943) CREATININE (test code = 1.62 mg/dL 0.60-1.25 H 4252599847) CALCIUM (test code = 8.0 mg/dL 8.6-10.6 L 7004263322) eGFR (test code = mL/min/1.73m2 2563495795) JUAN (test code = JUAN) Association of [...] tests). Lab Interpretation Abnormal (test code = 31920-3) [facility] GLUCOSE (AUTOMATED)2022-02-16 16:35:47 Test Item Value Reference Range Interpretation Comments POCT GLU (test code = 5688142811) 163 mg/dL 70-110 H Lab Interpretation (test code = Abnormal 31708-2) [facility] GLUCOSE (AUTOMATED)2022-02-16 16:35:47 Test Item Value Reference Range Interpretation Comments POCT GLU (test code = 9040151418) 163 mg/dL 70-110 H Lab Interpretation (test code = Abnormal 98136-1) [facility] (for use with Heparin Infusion)2022-02-16 14:04:01 Test Item Value Reference Range Interpretation Comments APTT Patient (test code See_Comment H [Au tomated message] = 3173-2) The system Jamal[employer] generated this result transmitted ref erence range: 26 - 36 Seconds. The reference range was not used to int erpret this result as normal/abnormal . Lab Interpretation (test Abnormal code = 48094-0) [facility] (for use with Heparin Infusion)2022-02-16 14:04:01 Test Item Value Reference Range Interpretation Comments APTT Patient (test code See_Comment H [Au tomated message] = 3173-2) The system [employer] generated this result transmitted ref erence range: 26 - 36 Seconds. The reference range was not used to int erpret this result as normal/abnormal . Lab Interpretation (test Abnormal code = 00242-3) [facility] GLUCOSE (AUTOMATED)2022-02-16 13:18:42 Test Item Value Reference Range Interpretation Comments POCT GLU (test code = 5043762886) 108 mg/dL 70-110 Lab Interpretation (test code = Normal 05621-2) [facility] GLUCOSE (AUTOMATED)2022-02-16 13:18:42 Test Item Value Reference Range Interpretation Comments POCT GLU (test code = 9333897985) 108 mg/dL 70-110 Lab Interpretation (test code = Normal 89571-4) [facility] [id number] 07:40:53 Test Item Value Reference Interpretation Comments Range TROPONIN I (test 27.000 ng/mL See_Comment H [Automated code = 4951598781) message] The system which generated this result [...] biotin. Lab Interpretation Abnormal (test code = 86603-3) [facility] [id number] 07:40:53 Test Item Value Reference Interpretation Comments Range TROPONIN I (test 27.000 ng/mL See_Comment H [Automated code = 4501478958) message] The system which generated this result [...] biotin. Lab Interpretation Abnormal (test code = 05516-2) [facility] (NA, K, CL, CO2, GLUCOSE, BUN, CREATININE, CA)2022-02-16 07:32:56 Test Item Value Reference Range Interpretation Comments NA (test code = 129 mmol/L 135-145 L 1985396229) K (test code = 4.8 mmol/L 3.5-5.0 7385128118) CL (test code = 99 mmol/L 98-108 1946633925) CO2 TOTAL (test code = 28 mmol/L 23-31 1413934854) AGAP (test code = 2-16 9218924688) BUN (test code = 60 mg/dL 7-23 H 7312683081) GLUCOSE (test code = 124 mg/dL 70-110 H 4333058253) CREATININE (test code = 1.96 mg/dL 0.60-1.25 H 7188805424) CALCIUM (test code = 8.2 mg/dL 8.6-10.6 L 6688415048) eGFR (test code = mL/min/1.73m2 4557224461) JUAN (test code = JUAN) Association of [...] tests). Lab Interpretation Abnormal (test code = 66423-8) [facility] METABOLIC PANEL (NA, K, CL, CO2, GLUCOSE, BUN, CREATININE, CA)2022-02-16 07:32:56 Test Item Value Reference Range Interpretation Comments NA (test code = 129 mmol/L 135-145 L 2432785412) K (test code = 4.8 mmol/L 3.5-5.0 1666273788) CL (test code = 99 mmol/L 98-108 0846602833) CO2 TOTAL (test code = 28 mmol/L 23-31 7019976583) AGAP (test code = 2-16 2405742213) BUN (test code = 60 mg/dL 7-23 H 4169766008) GLUCOSE (test code = 124 mg/dL 70-110 H 6012750943) CREATININE (test code = 1.96 mg/dL 0.60-1.25 H 0862483881) CALCIUM (test code = 8.2 mg/dL 8.6-10.6 L 3517900785) eGFR (test code = mL/min/1.73m2 9633201383) JUAN (test code = JUAN) Association of [...] tests). Lab Interpretation Abnormal (test code = 28643-2) [facility] Test Item Value Reference Range Interpretation Comments MAGNESIUM (test code = 2324003268) 2.3 mg/dL 1.7-2.4 Lab Interpretation (test code = Normal 65346-1) [facility]2022-[facility]-23 07:29:09 Test Item Value Reference Range Interpretation Comments PHOSPHORUS (test code = 5530513433) 3.4 mg/dL 2.5-5.0 Lab Interpretation (test code = Normal 29209-5) [facility]2022-[facility]-23 07:29:09 Test Item Value Reference Range Interpretation Comments MAGNESIUM (test code = 8171642597) 2.3 mg/dL 1.7-2.4 Lab Interpretation (test code = Normal 23850-1) [facility]2022-[facility]-23 07:29:09 Test Item Value Reference Range Interpretation Comments PHOSPHORUS (test code = 6797678581) 3.4 mg/dL 2.5-5.0 Lab Interpretation (test code = Normal 49465-2) [facility] [id number] 07:00:47 Test Item Value Reference Range Interpretation Comments APTT Patient (test code See_Comment H [Au tomated message] = 3173-2) The system [employer]al[employer] generated this result transmitted ref erence range: 26 - 36 Seconds. The reference range was not used to int erpret this result as normal/abnormal . Lab Interpretation (test Abnormal code = 59717-3) [facility] [id number] 07:00:47 Test Item Value Reference Range Interpretation Comments APTT Patient (test code See_Comment H [Au tomated message] = 3173-2) The system [employer]al[employer] generated this result transmitted ref erence range: 26 - 36 Seconds. The reference range was not used to int erpret this result as normal/abnormal . Lab Interpretation (test Abnormal code = 58223-5) [facility] WITH [id number] 06:45:45 Test Item Value Reference Range Interpretation [...] RDW-SD (test code = 49.1 fL 38.5-51.6 00710-3) RDW-CV (test code = 14.6 % 12.1-15.4 788-0) PLT (test code = See_Comment [Automated 777-3) message] The system which generated this result transmit josh reference range : 150 - 328 10*3/ ?L. The reference range was not u sed to interpret th is result as normal/abnormal . MPV (test code = 10.0 fL 9.8-13.0 89046-3) NRBC/100 WBC (test See_Comment [Automat ed code = 7594723695) message] The system which generated this result transmit josh reference range : 0.0 - 10.0 /100 WBCs. The reference range was not used to interpret this result as normal/abnormal . NRBC x10^3 (test code See_Comment [Auto mated = 3281367664) message] The system which generated this result transmit josh reference range : 10*3/?L. The reference range was not used to interpret this result as normal/abnormal . GRAN MAT (NEUT) % 71.4 % (test code = 770-8) IMM GRAN % (test code 1.60 % = 9080975260) LYMPH % (test code = 20.8 % 736-9) MONO % (test code = 5.9 % 5905-5) EOS % (test code = 0.2 % 713-8) BASO % (test code = 0.1 % 706-2) GRAN MAT x10^3(ANC) 10.41 10*3/uL 1.99-6.95 H (test code = 8307156336) IMM GRAN x10^3 (test 0.24 10*3/uL 0.00-0.06 H code = 5794100503) LYMPH x10^3 (test code 3.04 10*3/uL 1.09-3.23 = 731-0) MONO x10^3 (test code 0.86 10*3/uL 0.36-1.02 = 742-7) EOS x10^3 (test code = 0.03 10*3/uL 0.06-0.53 L 711-2) BASO x10^3 (test code 0.01-0.09 = 704-7) Lab Interpretation Abnormal (test code = 75083-3) [facility] WITH [id number] 06:45:45 Test Item Value Reference Range Interpretation [...] RDW-SD (test code = 49.1 fL 38.5-51.6 52703-7) RDW-CV (test code = 14.6 % 12.1-15.4 788-0) PLT (test code = See_Comment [Automated 777-3) message] The system which generated this result transmit josh reference range : 150 - 328 10*3/ ?L. The reference range was not u sed to interpret th is result as normal/abnormal . MPV (test code = 10.0 fL 9.8-13.0 50399-4) NRBC/100 WBC (test See_Comment [Automat ed code = 4329472197) message] The system which generated this result transmit josh reference range : 0.0 - 10.0 /100 WBCs. The reference range was not used to interpret this result as normal/abnormal . NRBC x10^3 (test code See_Comment [Auto mated = 6641922480) message] The system which generated this result transmit josh reference range : 10*3/?L. The reference range was not used to interpret this result as normal/abnormal . GRAN MAT (NEUT) % 71.4 % (test code = 770-8) IMM GRAN % (test code 1.60 % = 8850562819) LYMPH % (test code = 20.8 % 736-9) MONO % (test code = 5.9 % 5905-5) EOS % (test code = 0.2 % 713-8) BASO % (test code = 0.1 % 706-2) GRAN MAT x10^3(ANC) 10.41 10*3/uL 1.99-6.95 H (test code = 5601334931) IMM GRAN x10^3 (test 0.24 10*3/uL 0.00-0.06 H code = 2009355541) LYMPH x10^3 (test code 3.04 10*3/uL 1.09-3.23 = 731-0) MONO x10^3 (test code 0.86 10*3/uL 0.36-1.02 = 742-7) EOS x10^3 (test code = 0.03 10*3/uL 0.06-0.53 L 711-2) BASO x10^3 (test code 0.01-0.09 = 704-7) Lab Interpretation Abnormal (test code = 68109-5) [facility]2022-02-16 03:38:07 Test Item Value Reference Range Interpretation Comments Height (test code = in 6394442496) Weight (test code = lbs 3668217449) Systolic BP (test code = mmHg 4797420107) Diastolic BP (test code mmHg = 6863981448) Heart Rate (test code = bpm 8397803132) BSA (test code = 2.06 m2 9425641327) MV valve area p 1/2 7.50 cm2 method (test code = 3392110271) MV dec slope (test code 1149.00 cm/s2 = 5522567754) MV P1/2t max carmita (test 114.40 cm/s code = 1056652818) MV Peak E Carmita (test code 114.8 cm/s = 8004044915) MV Prop V (test code = 34.90 cm/s 6350873770) Tapse (test code = 2.20 cm 3527087776) MV E/e' septal (test 10.3 cm/s code = 6052592031) LVOT peak carmita (test code 97.7 cm/s = 4746037066) LVOT mn grad (test code mmHg = 8673797506) AV LVOT peak gradient mmHg (test code = 6702658702) LVOT peak VTI (test code 13.1 cm = 9853894062) LV V1 mean (test code = 62.10 cm/s 1688038982) Aortic valve mean 72.2 cm/s velocity (test code = 8972746289) Ao peak carmita (test code = 108.6 cm/s 0034045588) Ao VTI (test code = 13.7 cm 3841114226) Ao max PG (test code = 4.70 mm[Hg] 7584766273) AV peak gradient (test mmHg code = 0988324881) AV mean gradient (test mmHg code = 4576713394) Aortic HR (test code = BPM 6082639422) LAV(MOD-sp2) (test code 56.20 mL = 7488892813) LVIDD (test code = 5.40 cm 3835937415) IVS (test code = 0.97 cm 9989954064) Interventricular Septum 0.97 cm Diastolic Thickness by 2D (test code = 2903757) LVPWD (test code = 0.90 cm 5025905356) PW (test code = 0.90 cm 0.6-1.1 5077461152) EF(Teich) (test code = 38.40 % 4753514408) LVIDS (test code = 4.40 cm 5418302270) FS (test code = 19 % 7998466024) EF - 2D (test code = 38.40 % 61566520) Radiology Study observation (narrative) (test code = 03502-0) JUAN (test code = JUAN) Formatting of [...] mL of Lumason ultrasound enhancing agent used. [facility] GLUCOSE (AUTOMATED)2022-02-16 01:08:44 Test Item Value Reference Range Interpretation Comments POCT GLU (test code = 2643073530) 167 mg/dL 70-110 H Lab Interpretation (test code = Abnormal 00686-7) [facility] GLUCOSE (AUTOMATED)2022-02-16 01:08:44 Test Item Value Reference Range Interpretation Comments POCT GLU (test code = 7250996882) 167 mg/dL 70-110 H Lab Interpretation (test code = Abnormal 56946-3) [facility] METABOLIC PANEL (NA, K, CL, CO2, GLUCOSE, BUN, CREATININE, CA)2022-02-16 00:36:49 Test Item Value Reference Range Interpretation Comments NA (test code = 128 mmol/L 135-145 L 5810020282) K (test code = 5.9 mmol/L 3.5-5.0 H Slight 2548034796) hemolysis CL (test code = 99 mmol/L 98-108 1042450250) CO2 TOTAL (test code 27 mmol/L 23-31 = 9566679629) AGAP (test code = 2-16 4280982757) BUN (test code = 60 mg/dL 7-23 H Slight 5044075725) hemolysis GLUCOSE (test code = 123 mg/dL 70-110 H 6266936365) CREATININE (test code 2.04 mg/dL 0.60-1.25 H = 6597086283) CALCIUM (test code = 8.2 mg/dL 8.6-10.6 L 1160593083) eGFR (test code = mL/min/1.73m2 6583081544) JUAN (test code = JUAN) Association of [...] tests). Lab Interpretation Abnormal (test code = 96990-9) [facility] (NA, K, CL, CO2, GLUCOSE, BUN, CREATININE, CA)2022-02-16 00:36:49 Test Item Value Reference Range Interpretation Comments NA (test code = 128 mmol/L 135-145 L 7350138069) K (test code = 5.9 mmol/L 3.5-5.0 H Slight 8704081059) hemolysis CL (test code = 99 mmol/L 98-108 6022964490) CO2 TOTAL (test code 27 mmol/L 23-31 = 0949611106) AGAP (test code = 2-16 4647121331) BUN (test code = 60 mg/dL 7-23 H Slight 2719694580) hemolysis GLUCOSE (test code = 123 mg/dL 70-110 H 5901867301) CREATININE (test code 2.04 mg/dL 0.60-1.25 H = 9856733384) CALCIUM (test code = 8.2 mg/dL 8.6-10.6 L 6415484916) eGFR (test code = mL/min/1.73m2 7083988254) JUAN (test code = JUAN) Association of [...] tests). Lab Interpretation Abnormal (test code = 92820-9) [facility] [id number] 00:35:33 Test Item Value Reference Interpretation Comments Range TROPONIN I (test 29.900 ng/mL See_Comment H [Automated code = 5228713905) message] The system which generated this result [...] biotin. Lab Interpretation Abnormal (test code = 49279-8) [facility] [id number] 00:35:33 Test Item Value Reference Interpretation Comments Range TROPONIN I (test 29.900 ng/mL See_Comment H [Automated code = 9442223532) message] The system which generated this result [...] biotin. Lab Interpretation Abnormal (test code = 48914-0) [facility] 00:23:52 Test Item Value Reference Range Interpretation Comments MAGNESIUM (test code = 0925707648) 2.3 mg/dL 1.7-2.4 Lab Interpretation (test code = Normal 14341-2) [facility] 00:23:52 Test Item Value Reference Range Interpretation Comments PHOSPHORUS (test code = 4561862626) 3.7 mg/dL 2.5-5.0 Lab Interpretation (test code = Normal 71389-3) [facility] Test Item Value Reference Range Interpretation Comments MAGNESIUM (test code = 4111580601) 2.3 mg/dL 1.7-2.4 Lab Interpretation (test code = Normal 10931-6) [facility]22-[facility]23 00:23:52 Test Item Value Reference Range Interpretation Comments PHOSPHORUS (test code = 2048522679) 3.7 mg/dL 2.5-5.0 Lab Interpretation (test code = Normal 79726-2) [facility] (for use with Heparin Infusion)2022-02-16 00:05:05 Test Item Value Reference Range Interpretation Comments APTT Patient (test code See_Comment H [Au tomated message] = 3173-2) The system Jam[employer] generated this result transmitted ref erence range: 26 - 36 Seconds. The reference range was not used to int erpret this result as normal/abnormal . Lab Interpretation (test Abnormal code = 63783-2) [facility] (for use with Heparin Infusion)2022-02-16 00:05:05 Test Item Value Reference Range Interpretation Comments APTT Patient (test code See_Comment H [Au tomated message] = 3173-2) The system [employer] generated this result transmitted ref erence range: 26 - 36 Seconds. The reference range was not used to int erpret this result as normal/abnormal . Lab Interpretation (test Abnormal code = 24920-3) [facility] GLUCOSE (AUTOMATED)2022-02-15 23:08:37 Test Item Value Reference Range Interpretation Comments POCT GLU (test code = 1099339390) 110 mg/dL 70-110 Lab Interpretation (test code = Normal 29706-9) [facility] GLUCOSE (AUTOMATED)2022-02-15 23:08:37 Test Item Value Reference Range Interpretation Comments POCT GLU (test code = 3830682971) 110 mg/dL 70-110 Lab Interpretation (test code = Normal 85621-8) [facility] [id number] 17:40:19 Test Item Value Reference Interpretation Comments Range TROPONIN I (test 40.200 ng/mL See_Comment H [Automated code = 7413161916) message] The system which generated this result [...] biotin. Lab Interpretation Abnormal (test code = 23642-7) [facility] [id number] 17:40:19 Test Item Value Reference Interpretation Comments Range TROPONIN I (test 40.200 ng/mL See_Comment H [Automated code = 3951622107) message] The system which generated this result [...] biotin. Lab Interpretation Abnormal (test code = 44540-2) [place] [id number] 17:33:19 Test Item Value Reference Range Interpretation Comments APTT Patient (test code = See_Comment [ Automated message] 3173-2) The system [employer] generated this result transmitted ref erence range: 26 - 36 Seconds. The re ference range was not u sed to interpret this result as normal/abnor mal. Lab Interpretation (test Normal code = 56221-0) [place] [id number] 17:33:19 Test Item Value Reference Range Interpretation Comments APTT Patient (test code = See_Comment [ Automated message] 3173-2) The system [employer] generated this result transmitted ref erence range: 26 - 36 Seconds. The re ference range was not u sed to interpret this result as normal/abnor mal. Lab Interpretation (test Normal code = 10310-4) [facility]2022-08-22 17:28:41 Test Item Value Reference Range Interpretation Comments MAGNESIUM (test code = 6002317357) 2.4 mg/dL 1.7-2.4 Lab Interpretation (test code = Normal 10104-3) [facility]2022-08-22 17:28:41 Test Item Value Reference Range Interpretation Comments PHOSPHORUS (test code = 9634442911) 3.1 mg/dL 2.5-5.0 Lab Interpretation (test code = Normal 17234-1) [facility] 17:28:41 Test Item Value Reference Range Interpretation Comments MAGNESIUM (test code = 4279279000) 2.4 mg/dL 1.7-2.4 Lab Interpretation (test code = Normal 66923-2) [facility] 17:28:41 Test Item Value Reference Range Interpretation Comments PHOSPHORUS (test code = 8053778635) 3.1 mg/dL 2.5-5.0 Lab Interpretation (test code = Normal 43178-4) [facility] (NA, K, CL, CO2, GLUCOSE, BUN, CREATININE, CA)2022-02-15 17:28:40 Test Item Value Reference Range Interpretation Comments NA (test code = 131 mmol/L 135-145 L 5643472123) K (test code = 4.4 mmol/L 3.5-5.0 3467819402) CL (test code = 100 mmol/L 98-108 3782001099) CO2 TOTAL (test code = 29 mmol/L 23-31 5597041184) AGAP (test code = 2-16 9270386433) BUN (test code = 56 mg/dL 7-23 H 1218318897) GLUCOSE (test code = 149 mg/dL 70-110 H 8939121172) CREATININE (test code = 1.93 mg/dL 0.60-1.25 H 8684958908) CALCIUM (test code = 8.4 mg/dL 8.6-10.6 L 3683588769) eGFR (test code = mL/min/1.73m2 0739372739) JUAN (test code = JUAN) Association of [...] tests). Lab Interpretation Abnormal (test code = 01291-1) [facility] METABOLIC PANEL (NA, K, CL, CO2, GLUCOSE, BUN, CREATININE, CA)2022-02-15 17:28:40 Test Item Value Reference Range Interpretation Comments NA (test code = 131 mmol/L 135-145 L 8972521668) K (test code = 4.4 mmol/L 3.5-5.0 7021910363) CL (test code = 100 mmol/L 98-108 7231466352) CO2 TOTAL (test code = 29 mmol/L 23-31 0631674946) AGAP (test code = 2-16 4611058128) BUN (test code = 56 mg/dL 7-23 H 5779913821) GLUCOSE (test code = 149 mg/dL 70-110 H 7436547536) CREATININE (test code = 1.93 mg/dL 0.60-1.25 H 1668911142) CALCIUM (test code = 8.4 mg/dL 8.6-10.6 L 1773402468) eGFR (test code = mL/min/1.73m2 0041003933) JUAN (test code = JUAN) Association of [...] tests). Lab Interpretation Abnormal (test code = 40846-9) [facility] GLUCOSE (AUTOMATED)2022-02-15 16:45:01 Test Item Value Reference Range Interpretation Comments POCT GLU (test code = 4300860485) 155 mg/dL 70-110 H Lab Interpretation (test code = Abnormal 95759-1) [facility] GLUCOSE (AUTOMATED)2022-02-15 16:45:01 Test Item Value Reference Range Interpretation Comments POCT GLU (test code = 6835242471) 155 mg/dL 70-110 H Lab Interpretation (test code = Abnormal 78256-0) [facility]2022-08-22 15:22:46 Test Item Value Reference Interpretation Comments Range Procalcitonin (test 0.29 ng/mL See_Comment H [Automa josh code = 5512077136) message] The system which generated this result [...] lung abscess/empyema. For further information please refer to:[email or web address] p Lab Interpretation Abnormal (test code = 82277-2) [facility]2022-08-22 15:22:46 Test Item Value Reference Interpretation Comments Range Procalcitonin (test 0.29 ng/mL See_Comment H [Automa josh code = 7998679864) message] The system which generated this result [...] lung abscess/empyema. For further information please refer to:[email or web address] p Lab Interpretation Abnormal (test code = 53101-7) [facility] GLUCOSE (AUTOMATED)2022-02-15 13:10:03 Test Item Value Reference Range Interpretation Comments POCT GLU (test code = 9000061087) 158 mg/dL 70-110 H Lab Interpretation (test code = Abnormal 28284-2) [facility] GLUCOSE (AUTOMATED)2022-02-15 13:10:03 Test Item Value Reference Range Interpretation Comments POCT GLU (test code = 8644582672) 158 mg/dL 70-110 H Lab Interpretation (test code = Abnormal 20285-0) [facility] [id number] 11:33:31 Test Item Value Reference Interpretation Comments Range TROPONIN I (test 44.100 ng/mL See_Comment H [Automated code = 6932927313) message] The system which generated this result [...] biotin. Lab Interpretation Abnormal (test code = 20685-6) [facility] [id number] 11:33:31 Test Item Value Reference Interpretation Comments Range TROPONIN I (test 44.100 ng/mL See_Comment H [Automated code = 0475608059) message] The system which generated this result [...] biotin. Lab Interpretation Abnormal (test code = 00320-1) [facility] CenterCBC WITHOUT [id number] 10:48:10 Test Item Value Reference Range Interpretation Comments WBC (test code = 6690-2) See_Comment H [A utomated message] The system Jam[employer] generated this result transmit josh reference range : 4.20 - 10.70 10*3/?L. The reference range was not used to interpret this result as normal/abnormal . RBC (test code = 789-8) See_Comment L [Au tomated message] The system [employer] generated this result transmit josh reference range [...] 777-3) See_Comment [Au tomated message] The system [facility] generated this result transmit josh reference range : 150 - 328 10*3/?L. The reference range was not used to interpret this result as normal/abnormal . MPV (test code = 9.9 fL 9.8-13.0 66050-2) RDW-CV (test code = 14.6 % 12.1-15.4 788-0) RDW-SD (test code = 48.1 fL 38.5-51.6 33553-5) NRBC x10^3 (test code = See_Comment [Au tomated message] 9393469469) The system [facility] generated this result transmit josh reference range : 10*3/?L. The reference range was not used to interpret this result as normal/abnormal . NRBC/100 WBC (test code See_Comment [Au tomated message] = 5959454711) The system [facility] generated this result transmit josh reference range : 0.0 - 10.0 /100 WBC s. The reference r maxi was not used to interpret this result as normal/abnormal . IPF % (test code = 0709490989) Lab Interpretation (test Abnormal code = 58284-6) [facility] WITHOUT [id number] 10:48:10 Test Item Value Reference Range Interpretation Comments WBC (test code = 6690-2) See_Comment H [A utomated message] The system [facility] generated this result transmit josh reference range : 4.20 - 10.70 10*3/?L. The reference range was not used to interpret this result as normal/abnormal . RBC (test code = 789-8) See_Comment L [Au tomated message] The system [facility] generated this result transmit josh reference [...] 777-3) See_Comment [Au tomated message] The system [employer] generated this result transmit josh reference range : 150 - 328 10*3/?L. The reference range was not used to interpret this result as normal/abnormal . MPV (test code = 9.9 fL 9.8-13.0 59404-5) RDW-CV (test code = 14.6 % 12.1-15.4 788-0) RDW-SD (test code = 48.1 fL 38.5-51.6 10044-7) NRBC x10^3 (test code = See_Comment [Au tomated message] 5563784454) The system [employer] generated this result transmit josh reference range : 10*3/?L. The reference range was not used to interpret this result as normal/abnormal . NRBC/100 WBC (test code See_Comment [Au tomated message] = 2295175858) The system [facility] generated this result transmit josh reference range : 0.0 - 10.0 /100 WBC s. The reference r maxi was not used to interpret this result as normal/abnormal . IPF % (test code = 1874423149) Lab Interpretation (test Abnormal code = 93077-0) [facility]2022-[facility]-22 10:42:52 Test Item Value Reference Range Interpretation Comments MAGNESIUM (test code = 2026650079) 2.5 mg/dL 1.7-2.4 H Lab Interpretation (test code = Abnormal 59560-8) [facility] METABOLIC PANEL (NA, K, CL, CO2, GLUCOSE, BUN, CREATININE, CA)2022-02-15 10:42:52 Test Item Value Reference Range Interpretation Comments NA (test code = 132 mmol/L 135-145 L 0721765526) K (test code = 4.5 mmol/L 3.5-5.0 5611435442) CL (test code = 100 mmol/L 98-108 9918133110) CO2 TOTAL (test code = 29 mmol/L 23-31 8011462000) AGAP (test code = 2-16 2272664739) BUN (test code = 55 mg/dL 7-23 H 4428064595) GLUCOSE (test code = 171 mg/dL 70-110 H 4103914045) CREATININE (test code = 2.00 mg/dL 0.60-1.25 H 4694865814) CALCIUM (test code = 8.4 mg/dL 8.6-10.6 L 0299147908) eGFR (test code = mL/min/1.73m2 6345248910) JUAN (test code = JUAN) Association of [...] tests). Lab Interpretation Abnormal (test code = 82170-1) [facility] 10:42:52 Test Item Value Reference Range Interpretation Comments MAGNESIUM (test code = 3963193304) 2.5 mg/dL 1.7-2.4 H Lab Interpretation (test code = Abnormal 37606-9) [facility] METABOLIC PANEL (NA, K, CL, CO2, GLUCOSE, BUN, CREATININE, CA)2022-02-15 10:42:52 Test Item Value Reference Range Interpretation Comments NA (test code = 132 mmol/L 135-145 L 6483289179) K (test code = 4.5 mmol/L 3.5-5.0 2094508182) CL (test code = 100 mmol/L 98-108 6257085885) CO2 TOTAL (test code = 29 mmol/L 23-31 2051900714) AGAP (test code = 2-16 6889411236) BUN (test code = 55 mg/dL 7-23 H 4071170762) GLUCOSE (test code = 171 mg/dL 70-110 H 7213178882) CREATININE (test code = 2.00 mg/dL 0.60-1.25 H 3389387492) CALCIUM (test code = 8.4 mg/dL 8.6-10.6 L 9070132439) eGFR (test code = mL/min/1.73m2 8738650804) JUAN (test code = JUAN) Association of [...] tests). Lab Interpretation Abnormal (test code = 68143-1) [facility] [id number] 10:39:08 Test Item Value Reference Range Interpretation Comments APTT Patient (test code See_Comment H [Au tomated message] = 3173-2) The system [employer] generated this result transmitted ref erence range: 26 - 36 Seconds. The reference range was not used to int erpret this result as normal/abnormal . Lab Interpretation (test Abnormal code = 44740-3) [facility] PARTIAL THRMPLAS [id number] 10:39:08 Test Item Value Reference Range Interpretation Comments APTT Patient (test code See_Comment H [Au tomated message] = 3173-2) The system [employer] generated this result transmitted ref erence range: 26 - 36 Seconds. The reference range was not used to int erpret this result as normal/abnormal . Lab Interpretation (test Abnormal code = 92858-2) [facility] [id number] 04:26:48 Test Item Value Reference Range Interpretation Comments APTT Patient (test code See_Comment H [Au tomated message] = 3173-2) The system [employer] generated this result transmitted ref erence range: 26 - 36 Seconds. The reference range was not used to int erpret this result as normal/abnormal . Lab Interpretation (test Abnormal code = 83008-3) [facility] [id number] 04:26:48 Test Item Value Reference Range Interpretation Comments APTT Patient (test code See_Comment H [Au tomated message] = 3173-2) The system [employer] generated this result transmitted ref erence range: 26 - 36 Seconds. The reference range was not used to int erpret this result as normal/abnormal . Lab Interpretation (test Abnormal code = 61440-8) [facility] GLUCOSE (AUTOMATED)2022-02-15 02:38:04 Test Item Value Reference Range Interpretation Comments POCT GLU (test code = 0068442375) 170 mg/dL 70-110 H Lab Interpretation (test code = Abnormal 06339-4) [facility] GLUCOSE (AUTOMATED)2022-02-15 02:38:04 Test Item Value Reference Range Interpretation Comments POCT GLU (test code = 8914842727) 170 mg/dL 70-110 H Lab Interpretation (test code = Abnormal 11768-1) [facility] [id number] 01:26:24 Test Item Value Reference Interpretation Comments Range TROPONIN I (test 13.300 ng/mL See_Comment H [Automated code = 2276793014) message] The system which generated this result [...] biotin. Lab Interpretation Abnormal (test code = 14828-8) [facility] [id number] 01:26:24 Test Item Value Reference Interpretation Comments Range TROPONIN I (test 13.300 ng/mL See_Comment H [Automated code = 3616869583) message] The system which generated this result [...] biotin. Lab Interpretation Abnormal (test code = 38443-8) [facility] METABOLIC PANEL (NA, K, CL, CO2, GLUCOSE, BUN, CREATININE, CA)2022-02-15 01:14:22 Test Item Value Reference Range Interpretation Comments NA (test code = 134 mmol/L 135-145 L 1200319250) K (test code = 4.6 mmol/L 3.5-5.0 9773734189) CL (test code = 99 mmol/L 98-108 3772232265) CO2 TOTAL (test code = 26 mmol/L 23-31 3391865493) AGAP (test code = 2-16 2125603668) BUN (test code = 54 mg/dL 7-23 H 5129633097) GLUCOSE (test code = 190 mg/dL 70-110 H 7262142351) CREATININE (test code = 2.13 mg/dL 0.60-1.25 H 0455779688) CALCIUM (test code = 8.8 mg/dL 8.6-10.6 6800195755) eGFR (test code = mL/min/1.73m2 4879444258) JUAN (test code = JUAN) Association of [...] tests). Lab Interpretation Abnormal (test code = 50584-1) [facility] (NA, K, CL, CO2, GLUCOSE, BUN, CREATININE, CA)2022-02-15 01:14:22 Test Item Value Reference Range Interpretation Comments NA (test code = 134 mmol/L 135-145 L 4811882115) K (test code = 4.6 mmol/L 3.5-5.0 9622143695) CL (test code = 99 mmol/L 98-108 3978607490) CO2 TOTAL (test code = 26 mmol/L 23-31 5893859594) AGAP (test code = 2-16 4072439913) BUN (test code = 54 mg/dL 7-23 H 5364305542) GLUCOSE (test code = 190 mg/dL 70-110 H 7317385629) CREATININE (test code = 2.13 mg/dL 0.60-1.25 H 5386330857) CALCIUM (test code = 8.8 mg/dL 8.6-10.6 5093646727) eGFR (test code = mL/min/1.73m2 5677970252) JUAN (test code = JUAN) Association of [...] tests). Lab Interpretation Abnormal (test code = 03948-7) [facility] CenterL[facility] Acid Whole [id number] 00:58:27 Test Item Value Reference Range Interpretation Comments LACTIC ACID (test code = 4.00 mmol/L 0.50-2.20 H 5188837413) Lab Interpretation (test code = Abnormal 64106-7) [facility] CenterL[facility] Acid Whole [id number] 00:58:27 Test Item Value Reference Range Interpretation Comments LACTIC ACID (test code = 4.00 mmol/L 0.50-2.20 H 1092101956) Lab Interpretation (test code = Abnormal 70767-3) [facility] CenterBLOOD [id number] 07:00:32 Test Item Value Reference Range Interpretation Comments CULTURE (BEAKER) (test No growth in 5 days code = 1095) BLOOD [id number] 07:00:32 Test Item Value Reference Range Interpretation Comments CULTURE (BEAKER) (test No growth in 5 days code = 1095) POC-Glucose [id number] 16:01:13 Test Item Value Reference Range Interpretation Comments POC-Glucose Meter (test 136 mg/dL 70-110 H : TE STED AT [facility] code = 1538) [address] [place] [address]: Excavating Supervisor/Techni [place] ID = [id number] for Castaneda, Martina cherry Lab Interpretation (test Abnormal code = 49893-9) [facility] [id number] 16:01:13 Test Item Value Reference Range Interpretation Comments POC-Glucose Meter (test 136 mg/dL 70-110 H : TE STED AT [facility] code = 1538) [address] [place] [address]: Excavating Supervisor/Techni [place] ID = [id number] for Castaneda, Martina cherry Lab Interpretation (test Abnormal code = 80665-4) [facility] [id number] 16:01:13 Test Item Value Reference Range Interpretation Comments POC-Glucose Meter (test 136 mg/dL 70-110 H : TE STED AT [facility] code = 1538) [address] [place] [address]: Excavating Supervisor/Techni [place] ID = [id number] for Castaneda, Martina cherry Lab Interpretation (test Abnormal code = 02647-0) [facility]-Glucose [id number] 16:01:13 Test Item Value Reference Range Interpretation Comments POC-Glucose Meter (test 136 mg/dL 70-110 H : TE STED AT [facility] code = 1538) [address] [place] [address]: Excavating Supervisor/Techni [place] ID = [id number] for Castaneda, Martina cherry Lab Interpretation (test Abnormal code = 94487-6) [facility] [id number] 16:01:13 Test Item Value Reference Range Interpretation Comments POC-Glucose Meter (test 136 mg/dL 70-110 H : TE STED AT [facility] code = 1538) [address] [place] [address]: Excavating Supervisor/Techni [place] ID = [id number] for Castaneda, Martina cherry Lab Interpretation (test Abnormal code = 23091-5) [facility] [id number] 16:01:13 Test Item Value Reference Range Interpretation Comments POC-Glucose Meter (test 136 mg/dL 70-110 H : TE STED AT [facility] code = 1538) [address] [place] [address]: Excavating Supervisor/Techni [place] ID = [id number] for Castaneda, Martina cherry Lab Interpretation (test Abnormal code = 15324-2) [facility] [id number] 16:01:13 Test Item Value Reference Range Interpretation Comments POC-GLUCOSE METER 136 mg/dL 70-110 H : TESTED A T [facility] [address] (BEAKER) (test code [address], = 1538) [place] [address] 478: Excavating Supervisor/Techni [place] ID = [id number] for Cerv antes, Crystal POCT-GLUCOSE [id number] 11:30:14 Test Item Value Reference Range Interpretation Comments POC-GLUCOSE METER 112 mg/dL 70-110 H : TESTED A T [facility] [address] (BEAKER) (test code [address], = 1538) [place] [address] 478: Excavating Supervisor/Techni [place] ID = [id number] for Cerv antes, Crystal POCT-GLUCOSE [id number] 06:45:43 Test Item Value Reference Range Interpretation Comments POC-GLUCOSE METER 150 mg/dL 70-110 H : TESTED A T [facility] [address] (BEAKER) (test code [address], = 1538) [place] [address] 478: Excavating Supervisor/Techni [place] ID = [id number] for Taina Poe [id number] 06:05:04 Test Item Value Reference Range Interpretation Comments MAGNESIUM (BEAKER) (test code = 2.2 mg/dL 1.5-3.0 627) Excavating Supervisor ID - [id number] ID - [id number] ID - [id number] ID - [id number] METABOLIC [id number] 06:04:06 Test Item Value Reference Range Interpretation [...] 1092) DATA TO CALCULA TE ESTIMATED GFR. Excavating Supervisor ID - [id number] ID - [id number] ID - [id number] ID - [id number] ID - [id number] ID - [id number] ID - [id number] ID - [id number] ID - [id number] ID - [id number] W/PLT COUNT & AUTO DIFFERENTIAL 2021-11-12 05:53:41 [...] PERCENT (BEAKER) (test code = 2801) POCT-GLUCOSE [id number] 21:50:33 Test Item Value Reference Range Interpretation Comments POC-GLUCOSE METER 173 mg/dL 70-110 H : TESTED A T [facility] (BEAKER) ([facility], = 1538) [place] 568158: Excavating Supervisor/Techni [place] ID = [id number] for Shelby vanegas Taina POCT-GLUCOSE [id number] 16:45:23 Test Item Value Reference Range Interpretation Comments POC-GLUCOSE METER 134 mg/dL 70-110 H : TESTED A T SLSL 1317 (BEAKER) ([facility], = 1538) [place] [address] 478: Excavating Supervisor/Techni brooklyn ID = [id number] for Dapr emont, Heather POCT-GLUCOSE [id number] 11:45:21 Test Item Value Reference Range Interpretation Comments POC-GLUCOSE METER 125 mg/dL 70-110 H : TESTED A T SLSL 1317 (BEAKER) (test code [place] NT [facility], = 1538) [place] [address] 478: Excavating Supervisor/Techni brook[place] ID = [id number] for Dapr emont, Heather Sputum Culture + Gram [id number] 08:54:21 Test Item Value Reference Range Interpretation Comments Result (test code = 4+ Normal respiratory 6463-4) luis eduardo present Gram Stain Result 3+ Mixed luis eduardo (test code = 1123) [facility] [id number] 08:54:21 Test Item Value Reference Range Interpretation Comments Result (test code = 4+ Normal respiratory 6463-4) luis eduardo present Gram Stain Result 3+ Mixed luis eduardo (test code = 1123) [facility] [id number] 08:54:21 Test Item Value Reference Range Interpretation Comments Result (test code = 4+ Normal respiratory 6463-4) luis eduardo present Gram Stain Result 3+ Mixed luis eduardo (test code = 1123) [facility] [id number] 08:54:21 Test Item Value Reference Range Interpretation Comments Result (test code = 4+ Normal respiratory 6463-4) luis eduardo present Gram Stain Result 3+ Mixed luis eduardo (test code = 1123) [facility] Gram [id number] 08:54:21 Test Item Value Reference Range Interpretation Comments Result (test code = 4+ Normal respiratory 6463-4) luis eduardo present Gram Stain Result 3+ Mixed luis eduardo (test code = 1123) [facility] Gram [id number] 08:54:21 Test Item Value Reference Range Interpretation Comments Result (test code = 4+ Normal respiratory 6463-4) luis eduardo present Gram Stain Result 3+ Mixed luis eduardo (test code = 1123) [facility]AM [id number] 08:54:21 Test Item Value Reference Range Interpretation Comments CULTURE (BEAKER) 4+ Normal respiratory (test code = 1095) luis eduardo present GRAM STAIN RESULT 1+ White blood cells (BEAKER) (test code = seen 1123) GRAM STAIN RESULT 1+ epithelial cells (BEAKER) (test code = 63298) GRAM STAIN RESULT 3+ Mixed luis eduardo (BEAKER) (test code = 18956) RAD, CHEST, 1 VIEW, NON [id number] 07:33:00Reason for exam:->[facility] 1950 Sex: MFINAL REPORT CHEST AP PORTABLE SEMIERECT Comparison exam: 11/09/2021 History provided: Pneumonia Heart size normal. Chronic pleural thickening at the right base. Lungs free of acute disease and vascularity normal. Signed: Carlos Navarro Verified Date/Time: 11/11/2021 07:33:28 Reading Location: [facility] Diagnostic Imaging Reading Room - [facility] 1310.12 POCT-GLUCOSE [id number] 06:54:14 Test Item Value Reference Range Interpretation Comments POC-GLUCOSE METER 133 mg/dL 70-110 H : TESTED A T SLSL 1317 (BEAKER) ([facility] [address], = 1538) [facility] 77 478: Excavating Supervisor/Techni brooklyn ID = [id number] for Taina Poe [id number] 04:53:42 Test Item Value Reference Range Interpretation Comments MAGNESIUM (BEAKER) (test code = 2.3 mg/dL 1.5-3.0 627) Excavating Supervisor ID - [id number] ID - [id number] ID - [id number] ID - [id number] BASIC METABOLIC [id number] 04:52:53 Test Item Value Reference Range Interpretation [...] 1092) DATA TO CALCULA TE ESTIMATED GFR. Excavating Supervisor ID - [id number] ID - [id number] ID - sqem26Mvqowojb ID - sobl63Meommnpl ID - [id number] ID - [id number] ID - qreq23Ljenlivd ID - grap59Sxsnksnt ID - ilzr33Nlfnimiw ID - [id number] W/PLT COUNT & AUTO [id number] 04:28:30 Test Item Value Reference Range Interpretation [...] 2D Echo W/Doppler(CW/PW/Color)2021-11-11 00:37:05Ejection FractionSLE ECHO [facility] Psychiatric2D Echo W/Doppler(CW/PW/Color)2021-11-11 00:37:05Ejection FractionSLE ECHO HEARTLAB Psychiatric2D Echo W/Doppler(CW/PW/Color) 2021-11-11 00:37:05Ejection FractionSLE ECHO HEARTLAB Psychiatric2D Echo W/Doppler(CW/PW/Color)2021-11-11 00:37:05Ejection FractionSLEH ECHO HEARTLAB Psychiatric2D Echo W/Doppler(CW/PW/Color)2021-11-11 00:37:05Ejection FractionSLE ECHO HEARTLAB Psychiatric2D Echo W/Doppler(CW/PW/Color) 2021-11-11 00:37:05Ejection FractionSLE ECHO HEARTLAB PsychiatricPOCT-GLUCOSE [id number] 20:59:54 Test Item Value Reference Range Interpretation Comments POC-GLUCOSE METER 148 mg/dL 70-110 H : TESTED A T SLSL 1317 (BEAKER) (test code [address], = 1538) [place] [address] 478: Excavating Supervisor/Techni brooklyn ID = [id number] for Taina Poe POCT-GLUCOSE [id number] 15:51:00 Test Item Value Reference Range Interpretation Comments POC-GLUCOSE METER 156 mg/dL 70-110 H : TESTED A T SLSL 1317 (BEAKER) (test code [address], = 1538) [place] [address] 478: Excavating Supervisor/Techni brook[place] ID = [id number] for Shazia Scott POCT-GLUCOSE [id number] 11:44:26 Test Item Value Reference Range Interpretation Comments POC-GLUCOSE METER 139 mg/dL 70-110 H : TESTED A T SLSL 1317 (BEAKER) (test code [address], = 1538) [place] [address] 478: Excavating Supervisor/Techni brook[place] ID = [id number] for Antwan johns, Crystal BASIC METABOLIC [id number] 07:34:29 Test Item Value Reference Range Interpretation [...] 1092) DATA TO CALCULA TE ESTIMATED GFR. Excavating Supervisor ID - DSENSONOperator ID - DSENSONOperator ID [...] (test code = 18 U/L 5-50 347) Excavating Supervisor ID - DSENSONOperator ID - DSENSONOperator ID - DSENSONOperator ID - DSENSONOperator ID - DSENSONOperator ID - DSENSONOperator ID - DSENSONOperator ID - DSENSONOperator ID - DSENSONOperator ID - DSENSONCBC W/PLT COUNT & AUTO [id number] 07:19:24 Test Item Value Reference Range Interpretation [...] PERCENT (BEAKER) (test code = 2801) POCT-GLUCOSE [id number] 07:05:35 Test Item Value Reference Range Interpretation Comments POC-GLUCOSE METER 129 mg/dL 70-110 H : TESTED A T SLSL 1317 (BEAKER) (test code [facility], = 1538) [place] [address]: Excavating Supervisor/Techni brooklyn ID = [id number] for Anayeli ety, Ruth POCT-GLUCOSE [id number] 22:17:06 Test Item Value Reference Range Interpretation Comments POC-GLUCOSE METER 135 mg/dL 70-110 H : TESTED A T SLSL 1317 (BEAKER) (test code [facility], = 1538) [place] [address] 478: Excavating Supervisor/Techni bro[place] ID = [id number] for Anayeli ety, Ruth POCT-GLUCOSE [id number] 16:21:48 Test Item Value Reference Range Interpretation Comments POC-GLUCOSE METER 178 mg/dL 70-110 H : Notified RN/MD: TESTED (BEAKER) (test code [facility] = 1538) [facility] [address]: Excavating Supervisor/Techni [place]ok[place] ID = [id number] for Alee Calderon HEPATITIS PANEL, [id number] 14:58:49 Test Item Value Reference Range Interpretation Comments HEPATITIS A IGM ANTIBODY (BEAKER) Nonreactive Nonreactive (test code = 498) HEPATITIS B CORE IGM ANTIBODY Nonreactive Nonreactive (BEAKER) (test code = 645) HEPATITIS C ANTIBODY (BEAKER) Nonreactive Nonreactive (test code = 367) HEPATITIS B SURFACE ANTIGEN (2) Nonreactive Nonreactive (BEAKER) (test code = 2585) Excavating Supervisor ID - DBOperator ID - DBPOCT-GLUCOSE [id number] 12:30:38 Test Item Value Reference Range Interpretation Comments POC-GLUCOSE METER 184 mg/dL 70-110 H : Notified RN/MD: TESTED (MARLENA) (test code AT [facility] [address] [place] [address] = 1538) [place] [id number]: Excavating Supervisor/Techni brooklyn ID = [id number] for Alec Bush VENOUS DOPPLER LEGS, [id number] 10:54:00Reason for exam:->[facility] : 1950 Sex: MFINAL [...] MDReport Verified Date/Time: 11/09/2021 10:54:12 Reading Location: [facility] Radiology Reading Room RAD, CHEST, 1 VIEW, NON [id number] 09:00:00 Reason for exam:->PNAShould this be performed at the bedside?->Yes [facility] : 1950 Sex: MFINAL [...] ThackerMDReport Verified Date/Time: 11/09/2021 09:00:23 Reading Location: [facility] Radiology Reading Room POCT-GLUCOSE [id number] 07:33:54 Test Item Value Reference Range Interpretation Comments POC-GLUCOSE METER 156 mg/dL 70-110 H : Notified RN/MD: TESTED (BEAKER) (test code [place] [address] [place] [address] = 1538) [facility] [address]: Excavating Supervisor/Techni [place] ID = [id number] for Alec Bush [id number] 05:00:02 Test Item Value Reference Range Interpretation Comments PARTIAL THROMBOPLASTIN 111.6 seconds 23.0-35.0 H Berna l Information TIME (BEAKER) (test (Auto Ou tput) code = 760) HIV-1 ANTIGEN WITH HIV-1/2 [id number] 04:53:13 Test Item Value Reference Range Interpretation Comments HIV-1 ANTIGEN WITH HIV 1\\T\\2 Nonreactive Nonreactive ANTIBODY (2) (BEAKER) (test code = 2586) Excavating Supervisor ID - [id number] METABOLIC [id number] 04:38:36 Test Item Value Reference Range Interpretation [...] 1092) DATA TO CALCULA TE ESTIMATED GFR. Excavating Supervisor ID - [id number] ID - [id number] ID - [id number] ID - [id number] ID - [id number] ID - IBYEDMUKK710Ycftedma ID - [id number] ID - [id number] ID - TVHZULJIK184Mavilgep ID - [id number] FUNCTION [id number] 04:36:24 Test Item Value Reference Range Interpretation [...] (test code = 22 U/L 5-50 347) Excavating Supervisor ID - [id number] ID - [id number] ID - KZBJOEWYB217Hnhmhkud ID - DEPNUYQUY132Wdrxjise ID - NKYONJJNS050Tnctbumq ID - [id number] ID - OWURUEOEC940Xbfixgqw ID - HZVOWTBFJ480Xnrpsbae ID - EFKQLQKYD663Yftbqwpr ID - [id number] [id number] 04:30:27 Test Item Value Reference Range Interpretation Comments HEMOGLOBIN A1C (BEAKER) (test code = 5.8 % 4.3-6.1 368) Excavating Supervisor ID - [id number] W/PLT COUNT & AUTO [id number] 04:17:15 Test Item Value Reference Range Interpretation [...] PERCENT (BEAKER) (test code = 2801) TROPONIN [id number] 01:16:05 Test Item Value Reference Range Interpretation [...] failure, acidosis, acute neurological disease, and persistent tachyarrhythmia.Excavating Supervisor ID - [id number]-UCALLUB [id number] 20:56:12 Test Item Value Reference Range Interpretation Comments POC-GLUCOSE METER 169 mg/dL 70-110 H : Notified RN/MD: TESTED (BEAKER) (test code AT [facility] [address] [place] [address] = 1538) [place] [address]: Excavating Supervisor/Techni brooklyn ID = [id number] for Dottie Collins [id number] 20:43:27 Test Item Value Reference Range Interpretation Comments PARTIAL THROMBOPLASTIN 43.3 seconds 23.0-35.0 H Final Information TIME (BEAKER) (test (Auto Ou tput) code = 760) [id number] 17:13:58 Test Item Value Reference Range Interpretation Comments GLUCOSE RANDOM (BEAKER) (test code 247 mg/dL 70-110 H = 652) Excavating Supervisor ID - DSENSONTROPONIN [id number] 17:03:16 Test Item Value Reference Range Interpretation [...] failure, acidosis, acute neurological disease, and persistent tachyarrhythmia.Excavating Supervisor ID - HENRRYLegionella antigen, [id number] 14:05:17 Test Item Value Reference Range Interpretation Comments Legionella Urine Negative - see Negative for L. Antigen (test code comment pneumophi la = 59704-9) serogroup 1 ant igen, suggesting no r ecent or current infe ction with this serog roup. Legionellosis c annot be ruled out si nce other serogroup s and species may cau se disease. [facility] CenterLegionella antigen, [id number] 14:05:17 Test Item Value Reference Range Interpretation Comments Legionella Urine Negative - see Negative for L. Antigen (test code comment pneumophi la = 26012-4) serogroup 1 ant igen, suggesting no r ecent or current infe ction with this serog roup. Legionellosis c annot be ruled out si nce other serogroup s and species may cau se disease. [facility] CenterLegionella antigen, [id number] 14:05:17 Test Item Value Reference Range Interpretation Comments Legionella Urine Negative - see Negative for L. Antigen (test code comment pneumophi la = 37988-2) serogroup 1 ant igen, suggesting no r ecent or current infe ction with this serog roup. Legionellosis c annot be ruled out si nce other serogroup s and species may cau se disease. [facility] CenterLegionella antigen, [id number] 14:05:17 Test Item Value Reference Range Interpretation Comments Legionella Urine Negative - see Negative for L. Antigen (test code comment pneumophi la = 88637-1) serogroup 1 ant igen, suggesting no r ecent or current infe ction with this serog roup. Legionellosis c annot be ruled out si nce other serogroup s and species may cau se disease. [facility] CenterLegionella antigen, [id number] 14:05:17 Test Item Value Reference Range Interpretation Comments Legionella Urine Negative - see Negative for L. Antigen (test code comment pneumophi la = 83987-9) serogroup 1 ant igen, suggesting no r ecent or current infe ction with this serog roup. Legionellosis c annot be ruled out si nce other serogroup s and species may cau se disease. [facility] CenterLegionella antigen, [id number] 14:05:17 Test Item Value Reference Range Interpretation Comments Legionella Urine Negative - see Negative for L. Antigen (test code comment pneumophi la = 01422-3) serogroup 1 ant igen, suggesting no r ecent or current infe ction with this serog roup. Legionellosis c annot be ruled out si nce other serogroup s and species may cau se disease. [facility] CenterLEGIONELLA ANTIGEN, [id number] 14:05:17 Test Item Value Reference Range Interpretation Comments L. PNEUMOPHILA Negative - see Negative fo r L. SEROGP 1 UR AG comment pneumophila (BEAKER) (test code serogrou p 1 antigen, = 1156) suggesting no r ecent or current infe ction with this serog roup. Legionellosis c annot be ruled out si nce other serogroup s and species may cau se disease. U/S, RENAL, [id number] 14:05:00Reason for exam:->elevated creatine [facility] 1950 Sex: MFINAL [...] MDReport Verified Date/Time: 11/08/2021 14:05:00 Reading Location: [facility] C013Y CT Body Reading Room Strep pneumoniae [id number] 14:04:46 Test Item Value Reference Range Interpretation Comments Strep pneumoniae Presumptive negative Presumptive Antigen (test code = [place] [address]-5) pneumonia - see pneumococcal comment pneumonia - [...] test. Lab Interpretation Normal (test code = 33229-0) [facility] [id number] 14:04:46 Test Item Value Reference Range Interpretation Comments Strep pneumoniae Presumptive negative Presumptive Antigen (test code = [place] [address]-3) pneumonia - see pneumococcal comment pneumonia - [...] test. Lab Interpretation Normal (test code = 42766-7) [facility] pneumoniae [id number] 14:04:46 Test Item Value Reference Range Interpretation Comments Strep pneumoniae Presumptive negative Presumptive Antigen (test code = [place] [address]-1) pneumonia - see pneumococcal comment pneumonia - [...] test. Lab Interpretation Normal (test code = 50590-5) [facility] [id number] 14:04:46 Test Item Value Reference Range Interpretation Comments Strep pneumoniae Presumptive negative Presumptive Antigen (test code = [place] [address]-7) pneumonia - see pneumococcal comment pneumonia - [...] test. Lab Interpretation Normal (test code = 19357-4) [facility] pneumoniae [id number] 14:04:46 Test Item Value Reference Range Interpretation Comments Strep pneumoniae Presumptive negative Presumptive Antigen (test code = [place] [address]-9) pneumonia - see pneumococcal comment pneumonia - [...] test. Lab Interpretation Normal (test code = 23184-8) [facility] [id number] 14:04:46 Test Item Value Reference Range Interpretation Comments Strep pneumoniae Presumptive negative Presumptive Antigen (test code = [place] [address]-9) pneumonia - see pneumococcal comment pneumonia - [...] test. Lab Interpretation Normal (test code = 10154-4) [facility] PNEUMONIAE [id number] 14:04:46 Test Item Value Reference Range Interpretation [...] the detection limit of the test. TROPONIN [id number] 12:03:41 Test Item Value Reference Range Interpretation [...] failure, acidosis, acute neurological disease, and persistent tachyarrhythmia.Excavating Supervisor ID - DSENSONBASIC METABOLIC [id number] 11:54:31 Test Item Value Reference Range Interpretation [...] 1092) DATA TO CALCULA TE ESTIMATED GFR. Excavating Supervisor ID - DSENSONOperator ID - DSENSONOperator ID - DSENSONOperator ID - DSENSONOperator ID - DSENSONOperator ID - DSENSONOperator ID - DSENSONOperator ID - DSENSONOperator ID - DSENSONOperator ID - DSENSONOperator ID - DSENSONOperator ID - DSENSONOperator ID - [id number] 11:45:04 Test Item Value Reference Range Interpretation Comments PARTIAL THROMBOPLASTIN 44.4 seconds 23.0-35.0 H Final Information TIME (BEAKER) (test (Auto Ou tput) code = 760) POCT-GLUCOSE [id number] 11:43:30 Test Item Value Reference Range Interpretation Comments POC-GLUCOSE METER 141 mg/dL 70-110 H : Notified RN/MD: TESTED (BEAKER) (test code AT [facility] [address] [place] [address] = 1538) [facility] [address]: Excavating Supervisor/Techni [place] ID = [id number] for Francisco Javier h Alec PUL PERF IMAGING, [id number] 09:49:00Unlisted Reason for Exam - Click Yes and Enter Reason Below->No [facility] 1950 Sex: MFINAL REPORT PROCEDURE: LUNG SCAN - perfusion only CPT CODE: 08723 INDICATION: Elevated D-dimer PROTOCOL: 5.8 mCi of [...] Verified Date/Time: 11/08/2021 09:49:42 CT, CHEST, WITHOUT [id number] 09:47:00Unlisted Reason for Exam - Click Yes and Enter Reason Below->No [facility] 1950 Sex: MFINAL [...] 11/08/2021 09:47:14 RAD, CHEST, 1 VIEW, NON [id number] 08:47:00Reason for exam:->ETT placementShould this be performed at the bedside?->Yes [facility] : 1950 Sex: MFINAL [...] Ou tput) code = 760) LACTIC ACID, [id number] 05:34:16 Test Item Value Reference Range Interpretation Comments LACTATE BLOOD 1.89 mmol/L See_Comment [Automated me ssage] VENOUS (2) (BEAKER) The syst em which (test code = 2872) generated this result transmitted ref erence range: 0.50-<2. 00. The reference range was not used to interpr et this result as normal/abnormal . Excavating Supervisor ID - LITOOperator ID - LITOOperator ID - LITOOperator ID - ROSALBA [id number] 05:31:10 Test Item Value Reference Range Interpretation Comments PROCALCITONIN (BEAKER) (test code 0.15 ng/mL <0.05 H = 3036) SEPSIS RISK (ng/mL)Low: 0.05-0.50Intermediate: 0.51-2.00High: >=2.01 Urinalysis with Microscopic If [id number] 05:13:27 Test Item Value Reference Range Interpretation Comments Color, UA (test code = 5778-6) Yellow Clarity, UA (test code = 5767-9) Clear Specific Calvin, UA (test code = 1.015 1.001-1.035 5811-5) pH, UA (test code = 5803-2) 5.0 5.0-8.0 Protein, UA (test code = 86512-1) Negative Negative Glucose, UA (test code = 365) Negative Negative Ketones, UA (test code = 2514-8) Negative Negative Bilirubin, UA (test code = 46192-6) Negative Negative Blood, UA (test code = 97205-6) Small Negative A Nitrite, UA (test code = 5802-4) Negative Negative Leukocytes, UA (test code = 5799-2) Negative Negative Urobilinogen, UA (test code = 0.2 mg/dL 0.2-1.0 10242-7) Specimen Source (test code = 2795) Lab Interpretation (test code = Abnormal 59535-3) [facility] If [id number] 05:13:27 Test Item Value Reference Range Interpretation Comments Color, UA (test code = 5778-6) Yellow Clarity, UA (test code = 5767-9) Clear Specific Calvin, UA (test code = 1.015 1.001-1.035 5811-5) pH, UA (test code = 5803-2) 5.0 5.0-8.0 Protein, UA (test code = 95427-5) Negative Negative Glucose, UA (test code = 365) Negative Negative Ketones, UA (test code = 2514-8) Negative Negative Bilirubin, UA (test code = 64906-1) Negative Negative Blood, UA (test code = 12101-4) Small Negative A Nitrite, UA (test code = 5802-4) Negative Negative Leukocytes, UA (test code = 5799-2) Negative Negative Urobilinogen, UA (test code = 0.2 mg/dL 0.2-1.0 45406-4) Specimen Source (test code = 2795) Lab Interpretation (test code = Abnormal 48102-0) [facility] Center[facility]inal[facility] with [facility] If [id number] 05:13:27 Test Item Value Reference Range Interpretation Comments Color, UA (test code = 5778-6) Yellow Clarity, UA (test code = 5767-9) Clear Specific Calvin, UA (test code = 1.015 1.001-1.035 5811-5) pH, UA (test code = 5803-2) 5.0 5.0-8.0 Protein, UA (test code = 68564-3) Negative Negative Glucose, UA (test code = 365) Negative Negative Ketones, UA (test code = 2514-8) Negative Negative Bilirubin, UA (test code = 48513-4) Negative Negative Blood, UA (test code = 87741-8) Small Negative A Nitrite, UA (test code = 5802-4) Negative Negative Leukocytes, UA (test code = 5799-2) Negative Negative Urobilinogen, UA (test code = 0.2 mg/dL 0.2-1.0 51934-8) Specimen Source (test code = 2795) Lab Interpretation (test code = Abnormal 66907-9) [facility] Center[facility]inal[facility] with Microscopic If [id number] 05:13:27 Test Item Value Reference Range Interpretation Comments Color, UA (test code = 5778-6) Yellow Clarity, UA (test code = 5767-9) Clear Specific Calvin, UA (test code = 1.015 1.001-1.035 5811-5) pH, UA (test code = 5803-2) 5.0 5.0-8.0 Protein, UA (test code = 43606-5) Negative Negative Glucose, UA (test code = 365) Negative Negative Ketones, UA (test code = 2514-8) Negative Negative Bilirubin, UA (test code = 95635-1) Negative Negative Blood, UA (test code = 50609-4) Small Negative A Nitrite, UA (test code = 5802-4) Negative Negative Leukocytes, UA (test code = 5799-2) Negative Negative Urobilinogen, UA (test code = 0.2 mg/dL 0.2-1.0 04715-3) Specimen Source (test code = 2795) Lab Interpretation (test code = Abnormal 88444-4) [facility] with [facility] If [id number] 05:13:27 Test Item Value Reference Range Interpretation Comments Color, UA (test code = 5778-6) Yellow Clarity, UA (test code = 5767-9) Clear Specific Calvin, UA (test code = 1.015 1.001-1.035 5811-5) pH, UA (test code = 5803-2) 5.0 5.0-8.0 Protein, UA (test code = 29985-3) Negative Negative Glucose, UA (test code = 365) Negative Negative Ketones, UA (test code = 2514-8) Negative Negative Bilirubin, UA (test code = 52539-2) Negative Negative Blood, UA (test code = 04868-2) Small Negative A Nitrite, UA (test code = 5802-4) Negative Negative Leukocytes, UA (test code = 5799-2) Negative Negative Urobilinogen, UA (test code = 0.2 mg/dL 0.2-1.0 73864-6) Specimen Source (test code = 2795) Lab Interpretation (test code = Abnormal 16354-5) [facility] Center[facility] with Microscopic If Sptalfrki9610-68-78 05:13:27 Test Item Value Reference Range Interpretation Comments Color, UA (test code = 5778-6) Yellow Clarity, UA (test code = 5767-9) Clear Specific Calvin, UA (test code = 1.015 1.001-1.035 5811-5) pH, UA (test code = 5803-2) 5.0 5.0-8.0 Protein, UA (test code = 79296-1) Negative Negative Glucose, UA (test code = 365) Negative Negative Ketones, UA (test code = 2514-8) Negative Negative Bilirubin, UA (test code = 54250-1) Negative Negative Blood, UA (test code = 34611-3) Small Negative A Nitrite, UA (test code = 5802-4) Negative Negative Leukocytes, UA (test code = 5799-2) Negative Negative Urobilinogen, UA (test code = 0.2 mg/dL 0.2-1.0 85518-6) Specimen Source (test code = 2795) Lab Interpretation (test code = Abnormal 09370-1) [facility] IF [id number] 05:13:27 Test Item Value Reference Range Interpretation [...] SOURCE(BEAKER) (test code = 2795) Urinalysis Microscopic [id number] 05:13:21 Test Item Value Reference Range Interpretation Comments RBC, UA (test code = <5 See_Comment [Autom ated message] 799-7) The system [employer] generated this result transmitted ref erence range: /HPF. Th e reference range was not used to int erpret this result as normal/abnormal . WBC, UA (test code = None Seen See_Comment [Autom ated message] 17351-9) The system [employer] generated this result transmitted ref erence range: /HPF. Th e reference range was not used to int erpret this result as normal/abnormal . Bacteria, UA (test Occasional code = 17822-8) SQUAMOUS EPITHELIAL None Seen See_Comment [Automa josh message] (test code = 18354-7) The sy stem which generated this result transmitted ref erence range: /HPF. Th e reference range was not used to int erpret this result as normal/abnormal . HYALINE CASTS (test 0-5 See_Comment [Automa josh message] code = 5796-8) The system [employer] generated this result transmitted ref erence range: /LPF. Th e reference range was not used to int erpret this result as normal/abnormal . [facility] [id number] 05:13:21 Test Item Value Reference Range Interpretation Comments RBC, UA (test code = <5 See_Comment [Autom ated message] 799-7) The system [employer] generated this result transmitted ref erence range: /HPF. Th e reference range was not used to int erpret this result as normal/abnormal . WBC, UA (test code = None Seen See_Comment [Autom ated message] 31534-3) The system [employer] generated this result transmitted ref erence range: /HPF. Th e reference range was not used to int erpret this result as normal/abnormal . Bacteria, UA (test Occasional code = 59621-7) SQUAMOUS EPITHELIAL None Seen See_Comment [Automa josh message] (test code = 00685-9) The sy stem which generated this result transmitted ref erence range: /HPF. Th e reference range was not used to int erpret this result as normal/abnormal . HYALINE CASTS (test 0-5 See_Comment [Automa josh message] code = 5796-8) The system [employer] generated this result transmitted ref erence range: /LPF. Th e reference range was not used to int erpret this result as normal/abnormal . [facility] [id number] 05:13:21 Test Item Value Reference Range Interpretation Comments RBC, UA (test code = <5 See_Comment [Autom ated message] 799-7) The system [employer] generated this result transmitted ref erence range: /HPF. Th e reference range was not used to int erpret this result as normal/abnormal . WBC, UA (test code = None Seen See_Comment [Autom ated message] 94808-5) The system [employer] generated this result transmitted ref erence range: /HPF. Th e reference range was not used to int erpret this result as normal/abnormal . Bacteria, UA (test Occasional code = 77962-1) SQUAMOUS EPITHELIAL None Seen See_Comment [Automa josh message] (test code = 54877-1) The sy stem which generated this result transmitted ref erence range: /HPF. Th e reference range was not used to int erpret this result as normal/abnormal . HYALINE CASTS (test 0-5 See_Comment [Automa josh message] code = 5796-8) The system [employer] generated this result transmitted ref erence range: /LPF. Th e reference range was not used to int erpret this result as normal/abnormal . [facility] [id number] 05:13:21 Test Item Value Reference Range Interpretation Comments RBC, UA (test code = <5 See_Comment [Autom ated message] 799-7) The system [employer] generated this result transmitted ref erence range: /HPF. Th e reference range was not used to int erpret this result as normal/abnormal . WBC, UA (test code = None Seen See_Comment [Autom ated message] 57473-3) The system [employer] generated this result transmitted ref erence range: /HPF. Th e reference range was not used to int erpret this result as normal/abnormal . Bacteria, UA (test Occasional code = 51239-6) SQUAMOUS EPITHELIAL None Seen See_Comment [Automa josh message] (test code = 74919-8) The sy stem which generated this result transmitted ref erence range: /HPF. Th e reference range was not used to int erpret this result as normal/abnormal . HYALINE CASTS (test 0-5 See_Comment [Automa josh message] code = 5796-8) The system [email or web address] generated this result transmitted ref erence range: /LPF. Th e reference range was not used to int erpret this result as normal/abnormal . [facility] [id number] 05:13:21 Test Item Value Reference Range Interpretation Comments RBC, UA (test code = <5 See_Comment [Autom ated message] 799-7) The system [employer] generated this result transmitted ref erence range: /HPF. Th e reference range was not used to int erpret this result as normal/abnormal . WBC, UA (test code = None Seen See_Comment [Autom ated message] 33314-4) The system [employer] generated this result transmitted ref erence range: /HPF. Th e reference range was not used to int erpret this result as normal/abnormal . Bacteria, UA (test Occasional code = 68971-9) SQUAMOUS EPITHELIAL None Seen See_Comment [Automa josh message] (test code = 32338-5) The sy stem which generated this result transmitted ref erence range: /HPF. Th e reference range was not used to int erpret this result as normal/abnormal . HYALINE CASTS (test 0-5 See_Comment [Automa josh message] code = 5796-8) The system [email or web address] generated this result transmitted ref erence range: /LPF. Th e reference range was not used to int erpret this result as normal/abnormal . [facility] [id number] 05:13:21 Test Item Value Reference Range Interpretation Comments RBC, UA (test code = <5 See_Comment [Autom ated message] 799-7) The system [employer] generated this result transmitted ref erence range: /HPF. Th e reference range was not used to int erpret this result as normal/abnormal . WBC, UA (test code = None Seen See_Comment [Autom ated message] 51703-3) The system [employer] generated this result transmitted ref erence range: /HPF. Th e reference range was not used to int erpret this result as normal/abnormal . Bacteria, UA (test Occasional code = 86792-0) SQUAMOUS EPITHELIAL None Seen See_Comment [Automa josh message] (test code = 42723-4) The sy stem which generated this result transmitted ref erence range: /HPF. Th e reference range was not used to int erpret this result as normal/abnormal . HYALINE CASTS (test 0-5 See_Comment [Automa josh message] code = 5796-8) The system [email or web address] generated this result transmitted ref erence range: /LPF. Th e reference range was not used to int erpret this result as normal/abnormal . [facility] [id number] 05:13:21 Test Item Value Reference Range Interpretation Comments RBC UA-MANUAL (BEAKER) (test <5 /HPF code = 1659) WBC UA-MANUAL (BEAKER) (test None Seen /HPF code = 1661) BACTERIA (BEAKER) (test code = Occasional 517) SQUAMOUS EPITHELIAL MANUAL None Seen /HPF (BEAKER) (test code = 1663) HYALINE CASTS MANUAL (BEAKER) 0-5 /LPF (test code = 1665) TROPONIN [id number] 05:01:28 Test Item Value Reference Range Interpretation [...] failure, acidosis, acute neurological disease, and persistent tachyarrhythmia.Excavating Supervisor ID - LITOBASIC METABOLIC PANEL 2021-11-08 05:00:17 [...] 1092) DATA TO CALCULA TE ESTIMATED GFR. Excavating Supervisor ID - LITOOperator ID - LITOOperator ID - LITOOperator ID - LITOOperator ID - LITOOperator ID - LITOOperator ID - LITOOperator ID - LITOOperator ID - LITOOperator ID - LITOB-TYPE NATRIURETIC FACTOR (BNP)2021-11-08 05:00:11 Test Item Value Reference Range Interpretation Comments B-TYPE NATRIURETIC PEPTIDE (BEAKER) 480 pg/mL 0-100 H (test code = 700) Excavating Supervisor ID - LITOCBC W/PLT COUNT & AUTO [id number] 04:56:38 Test Item Value Reference Range Interpretation [...] H PERCENT (BEAKER) (test code = 2801) [id number] 04:53:09 Test Item Value Reference Range Interpretation Comments D-DIMER QUANTITATIVE 5.80 MG/L FEU <0.50 H Final Information (BEAKER) (test code = (Auto Output) 671) REGARDING D-DIMER RESULTS: The 98% NPV (Negative Predictive Value) for DVT/PE exclusion is 0.50 mg/LFEU as suggested by the physical security engineer and as approved by the FDA.PROTHROMBIN [id number] 04:52:30 Test Item Value Reference Range Interpretation Comments PROTIME (BEAKER) 11.0 seconds 9.3-12.0 Final Infor mation (test code = 759) (Auto Outp ut) INR (BEAKER) (test 1.00 See_Comment Final Inf ormation code = 370) (Auto Output) [Automated mess age] The system [employer] generated this result transmitted ref erence range: <=5.90. The reference range was not used to int erpret this result as normal/abnormal . RECOMMENDED COUMADIN/WARFARIN INR THERAPY RANGESSTANDARD DOSE: 2.0 - 3.0 Includes: PROPHYLAXIS for venous thrombosis, systemic embolization; TREATMENT for venous thrombosis and/or pulmonary embolus.HIGH RISK: Target INR is 2.5-3.5 for patients with mechanical heart valves.HEMOGLOBIN [id number] 04:51:27 Test Item Value Reference Range Interpretation Comments HEMOGLOBIN A1C (BEAKER) (test code = 5.7 % 4.3-6.1 368) Excavating Supervisor ID - LITOHEPATIC FUNCTION [id number] 04:50:07 Test Item Value Reference Range Interpretation [...] (test code = 31 U/L 5-50 347) Excavating Supervisor ID - LITOOperator ID - LITOOperator ID - LITOOperator ID - LITOOperator ID - LITOOperator ID - LITOOperator ID - [id number] 04:49:45 Test Item Value Reference Range Interpretation Comments MAGNESIUM (BEAKER) (test code = 2.8 mg/dL 1.5-3.0 627) Excavating Supervisor ID - LITOOperator ID - LITOOperator ID - LITOOperator ID - ROSALBA [id number] 04:46:46 Test Item Value Reference Range Interpretation Comments PHOSPHORUS (BEAKER) (test code = 4.8 mg/dL 2.5-4.5 H 604) Excavating Supervisor ID - LITOPOCT-GLUCOSE [id number] 04:11:36 Test Item Value Reference Range Interpretation Comments POC-GLUCOSE METER 156 mg/dL 70-110 H : TESTED A T [address] (BEAKER) (test code [address], = 1538) [facility] 77 478: Excavating Supervisor/Techni [place] ID = [id number] for [facility] yamilet [place] RAD, ABDOMEN/KUB 1 VIEW [id number] 04:02:00Reason for exam:->[facility] : 1950 Sex: MFINAL [...] is no acute osseous abnormality. Signed: Eliot ArredondoortVerified Date/Time: 11/08/2021 04:02:40 Electronically signed by: ELIOT ARREDONDO M.D. on 204:02 AMRAD, CHEST, 1 VIEW, NON [id number] 03:57:00Reason for exam:->AHRFShould this be performed at the bedside?->Yes [facility] : 1950 Sex: MFINAL [...] [place] Verified Date/Time: 11/08/2021 03:57:41 Blood gas, [id number] 03:54:11 Test Item Value Reference Range Interpretation [...] 75 Lab Interpretation Abnormal (test code = 41125-8) [facility], [id number] 03:54:11 Test Item Value Reference Range Interpretation [...] 75 Lab Interpretation Abnormal (test code = 72715-9) [facility], [id number] 03:54:11 Test Item Value Reference Range Interpretation [...] 75 Lab Interpretation Abnormal (test code = 62707-3) [facility], [id number] 03:54:11 Test Item Value Reference Range Interpretation [...] 75 Lab Interpretation Abnormal (test code = 60852-4) [facility], [id number] 03:54:11 Test Item Value Reference Range Interpretation [...] 75 Lab Interpretation Abnormal (test code = 23939-7) [facility], [id number] 03:54:11 Test Item Value Reference Range Interpretation [...] 75 Lab Interpretation Abnormal (test code = 72069-6) [facility] CenterBL[facility] G[facility], [id number] 03:54:11 Test Item Value Reference Range Interpretation [...]
--- NOTE | 2022-11-25 13:00 | ER ---
Nurse's Notes [facility] Name: Gabo Chow Sr Age: 72 yrs Sex: Male : 1950 Arrival Date: 11/25/2022 Time: 08:17 Bed 2 Private MD: Diagnosis: COPD/ Chronic obstructive pulmonary disease with acute lower respiratory infection;Unspecified systolic (congestive) heart failure Presentation: 11/25 08:25 Chief complaint: EMS states: [facility] FOR SOB. Coronavirus screen: At this bp time, the client does not indicate any symptoms associated with coronavirus-19. Ebola Screen: No symptoms or risks identified at this time. Initial Sepsis Screen: Does the patient meet any 2 criteria? No. Patient's initial sepsis screen is negative. Does the patient have a suspected source of infection? No. Patient's initial sepsis screen is negative. Risk Assessment: Do you want to hurt yourself or someone else? Patient reports no desire to harm self or others. Onset of symptoms was November 25, 2022. 08:25 Method Of Arrival: EMS: [facility] bp 08:25 Acuity: ALLI 3 bp Triage Assessment: 08:26 General: Appears in no apparent distress. Behavior is cooperative, appropriate for age, bp anxious. Pain: Denies pain. EENT: No deficits noted. Neuro: No deficits noted. Cardiovascular: Rhythm is sinus rhythm. Respiratory: Breath sounds with rhonchi. GI: No signs and/or symptoms were reported involving the gastrointestinal system. : No signs and/or symptoms were reported regarding the genitourinary system. Derm: No deficits noted. Musculoskeletal: No deficits noted. Historical: - Allergies: 08:26 No Known Allergies; bp - Home Meds: 12:46 apixaban 5 mg oral tablet every 12 hours [Active]; metoprolol tartrate 25 mg Oral iw tablet 2 times per day [Active]; clopidogrel 75 mg oral tablet daily [Active]; albuterol sulfate 1.25 mg/3 mL Inhl Solution for Nebulization every 6 hours, PRN [Active]; aspirin 81 mg Oral capsule daily [Active]; theophylline 200 mg Oral Capsule, ER 24 hr every 12 hours [Active]; amlodipine 10 mg tablet daily [Active]; amiodarone 400 mg Oral tablet every 12 hours [Active]; Lasix 80 mg Oral tablet daily [Active]; Atrovent Inhl every 6 hours [Active]; Advair Diskus 250-50 mcg/dose Inhl Blister, With Inhalation Device 2 times per day [Active]; rosuvastatin 20 mg oral tablet nightly [Active]; prednisone 10 mg Oral tablet 2 times per day [Active]; buspirone 10 mg Oral tablet 2 times per day [Active]; - PMHx: 08:26 CHF; HTN; Myocardial infarction; DC; Hypertension; COPD; bp - PSHx: 08:26 Stented artery; heart stent; bp - Immunization history:: Adult Immunizations up to date. - Social history:: Smoking status: unknown. Screenin:27 [facility] ED Fall Risk Assessment (Adult) History of falling in the last 3 months, bp including since admission No falls in past 3 months (0 pts). Abuse screen: Denies threats or abuse. Denies injuries from another. Nutritional screening: No deficits noted. Tuberculosis screening: No symptoms or risk factors identified. Assessment: 08:27 General: SEE TRIAGE NOTE. bp Vital Signs: 08:25 BP 152 / 78; Pulse 98; Resp 18; Temp 98; Pulse Ox 100% on 10 lpm Non-rebreather mask; bp 09:00 BP 130 / 88; Pulse 77; Resp 22; Pulse Ox 100% on Nebulizer Mask; ko1 10:00 BP 121 / 74; Pulse 64; Resp 18; Pulse Ox 94% on 2 lpm NC; ko1 11:00 BP 122 / 77; Pulse 69; Resp 20; Pulse Ox 94% on 2 lpm NC; ko1 12:00 BP 145 / 90; Pulse 78; Resp 19; Pulse Ox 100% on Nebulizer Mask; ko1 13:22 BP 130 / 70; Pulse 74; Resp 20; Pulse Ox 94% ; bp ED Course: 08:21 Patient arrived in ED. snw 08:21 Fior Griffiths FNP-C [facility] snw 08:21 Calvin Clements MD is Attending Physician. snw 08:24 J Luis Sue, DERCI is Primary Nurse. bp 08:26 Triage completed. bp 08:26 Arm band placed on. bp 08:27 Patient has correct armband on for positive identification. Bed in low position. Call bp light in reach. Side rails up X2. 08:42 Basic Metabolic Panel Sent. ko1 08:42 CBC with Diff Sent. ko1 08:42 LFT's Sent. ko1 08:42 Magnesium Sent. ko1 08:42 NT PRO-BNP Sent. ko1 08:42 PT-INR Sent. ko1 08:42 Troponin HS Sent. ko1 08:51 XRAY Chest (1 view) In Process Unspecified. EDMS 12:59 Hernan Alonzo MD is Hospitalizing Provider. snw 13:22 No provider procedures requiring assistance completed. Patient admitted, IV remains in bp place. Administered Medications: 08:57 Drug: Albuterol Inhalation 2.5 mg Route: Inhalation; ko1 09:15 Drug: MethylPrednisoLONE IVP 125 mg Route: IVP; Site: right forearm; bp 13:23 Follow up: Response: No adverse reaction bp 09:15 Drug: NS 0.9% IV 1000 ml Route: IV; Rate: 75 ml/hr; Site: right forearm; bp 13:24 Follow up: IV Status: Infusion continued upon admission bp 09:20 Drug: Albuterol Inhalation 2.5 mg Route: Inhalation; ko1 09:50 Drug: Albuterol Inhalation 2.5 mg Route: Inhalation; ko1 11:11 Drug: Cefepime IVPB 1 grams Route: IVPB; Rate: 200 ml/hr; Infused Over: 30 mins; Site: bp right forearm; 13:23 Follow up: IV Status: Completed infusion; IV Intake: 100ml bp 11:38 Drug: Albuterol Inhalation 2.5 mg Route: Inhalation; ko1 12:00 Drug: Albuterol Inhalation 2.5 mg Route: Inhalation; ko1 12:20 Drug: Albuterol Inhalation 2.5 mg Route: Inhalation; ko1 13:23 Follow up: Response: No adverse reaction bp Medication: 08:27 VIS not applicable for this client. bp Intake: 13:23 IV: 100ml; Total: 100ml. bp Outcome: 13:00 Decision to Hospitalize by Provider. snw 13:21 Admitted to Med/surg accompanied by tech, via stretcher, room 223, with oxygen, with bp chart, Report called to LETITIA LEOS 13:21 Condition: stable 13:21 Instructed on the need for admit. 14:12 Patient left the ED. iw Signatures: Dispatcher [facility] Fior Lundberg FNP-C [employer]ACE [employer] OPERATIONS SUPERINTENDENT-Csnw Mireille Yang, RN RN iw J Luis Sue, RN RN bp Myrna Gage, RN RN ko1
--- NOTE | 2022-11-25 13:00 | EDPHYS ---
Physician Documentation [facility] Name: Gabo Chow Sr Age: 72 yrs Sex: Male : 1950 Arrival Date: 11/25/2022 Time: 08:17 Bed 2 Private MD: ED Physician Calvin Clements HPI: 11/25 09:31 This 72 yrs old Male presents to ER via EMS with complaints of shortness of breath. snw 09:31 The patient has shortness of breath at rest. Onset: The symptoms/episode began/occurred snw acutely. Duration: The symptoms are chronic, are continuous. Severity of symptoms: At their worst the symptoms were moderate. The patient has experienced similar episodes in the past. Historical: - Allergies: 08:26 No Known Allergies; bp - Home Meds: 12:46 apixaban 5 mg oral tablet every 12 hours [Active]; metoprolol tartrate 25 mg Oral iw tablet 2 times per day [Active]; clopidogrel 75 mg oral tablet daily [Active]; albuterol sulfate 1.25 mg/3 mL Inhl Solution for Nebulization every 6 hours, PRN [Active]; aspirin 81 mg Oral capsule daily [Active]; theophylline 200 mg Oral Capsule, ER 24 hr every 12 hours [Active]; amlodipine 10 mg tablet daily [Active]; amiodarone 400 mg Oral tablet every 12 hours [Active]; Lasix 80 mg Oral tablet daily [Active]; Atrovent Inhl every 6 hours [Active]; Advair Diskus 250-50 mcg/dose Inhl Blister, With Inhalation Device 2 times per day [Active]; rosuvastatin 20 mg oral tablet nightly [Active]; prednisone 10 mg Oral tablet 2 times per day [Active]; buspirone 10 mg Oral tablet 2 times per day [Active]; - PMHx: 08:26 CHF; HTN; Myocardial infarction; MS; Hypertension; COPD; bp - PSHx: 08:26 Stented artery; heart stent; bp - Immunization history:: Adult Immunizations up to date. - Social history:: Smoking status: unknown. ROS: 09:31 Constitutional: Negative for fever, chills, and weight loss, Eyes: Negative for injury, snw pain, redness, and discharge, ENT: Negative for injury, pain, and discharge, Neck: Negative for injury, pain, and swelling, Cardiovascular: Negative for chest pain, palpitations, and edema, Abdomen/GI: Negative for abdominal pain, nausea, vomiting, diarrhea, and constipation, Back: Negative for injury and pain, : Negative for injury, bleeding, discharge, and swelling, MS/Extremity: Negative for injury and deformity, Skin: Negative for injury, rash, and discoloration, Neuro: Negative for headache, weakness, numbness, tingling, and seizure, Psych: Negative for depression, anxiety, suicide ideation, homicidal ideation, and hallucinations. 09:31 Respiratory: Positive for shortness of breath, at rest. wheezing. Exam: 09:29 Head/Face: Normocephalic, atraumatic. Eyes: Pupils equal round and reactive to light, snw extra-ocular motions intact. Lids and lashes normal. Conjunctiva and sclera are non-icteric and not injected. Cornea within normal limits. Periorbital areas with no swelling, redness, or edema. ENT: Nares patent. No nasal discharge, no septal abnormalities noted. Tympanic membranes are normal and external auditory canals are clear. Oropharynx with no redness, swelling, or masses, exudates, or evidence of obstruction, uvula midline. Mucous membranes moist. Neck: Trachea midline, no thyromegaly or masses palpated, and no cervical lymphadenopathy. Supple, full range of motion without nuchal rigidity, or vertebral point tenderness. No Meningismus. Chest/axilla: Normal chest wall appearance and motion. Nontender with no deformity. No lesions are appreciated. Cardiovascular: Regular rate and rhythm with a normal S1 and S2. No gallops, murmurs, or rubs. Normal PMI, no JVD. No pulse deficits. 09:29 Abdomen/GI: Soft, non-tender, with normal bowel sounds. No distension or tympany. No guarding or rebound. No evidence of tenderness throughout. Back: No spinal tenderness. No costovertebral tenderness. Full range of motion. MS/ Extremity: Pulses equal, no cyanosis. Neurovascular intact. Full, normal range of motion. Neuro: Awake and alert, GCS 15, oriented to person, place, time, and situation. Cranial nerves II-XII grossly intact. Motor strength 5/5 in all extremities. Sensory grossly intact. Cerebellar exam normal. Normal gait. Psych: Awake, alert, with orientation to person, place and time. Behavior, mood, and affect are within normal limits. 09:29 Constitutional: The patient appears alert, awake, unkempt. 09:29 Respiratory: mild respiratory distress is noted, moderate respiratory distress is noted, Respirations: accessory muscle usage, shallow respirations, tachypnea, Breath sounds: decreased breath sounds, wheezing: expiratory is heard diffusely. 09:29 Skin: Appearance: Color: normal in color, Temperature: warm, Moisture: dry. Vital Signs: 08:25 BP 152 / 78; Pulse 98; Resp 18; Temp 98; Pulse Ox 100% on 10 lpm Non-rebreather mask; bp 09:00 BP 130 / 88; Pulse 77; Resp 22; Pulse Ox 100% on Nebulizer Mask; ko1 10:00 BP 121 / 74; Pulse 64; Resp 18; Pulse Ox 94% on 2 lpm NC; ko1 11:00 BP 122 / 77; Pulse 69; Resp 20; Pulse Ox 94% on 2 lpm NC; ko1 12:00 BP 145 / 90; Pulse 78; Resp 19; Pulse Ox 100% on Nebulizer Mask; ko1 13:22 BP 130 / 70; Pulse 74; Resp 20; Pulse Ox 94% ; bp MDM: 08:21 Patient medically screened. snw 09:28 Differential diagnosis: asthma, Bronchitis CHF exacerbation, Chronic Obstructive [facility] Pulmonary Disease Myocardial Infarction pneumonia, pulmonary edema. Data reviewed: vital signs, nurses notes, EMS record, lab test result(s), EKG, radiologic studies. 10:40 Counseling: I had a detailed discussion with the patient and/or guardian regarding: the [facility] historical points, exam findings, and any diagnostic results supporting the discharge/admit diagnosis, radiology results, the need for further work-up and treatment in the hospital. 10:42 I considered the following discharge prescriptions or medication management in the [facility] emergency department awaiting blood culture collection. 10:45 Management of patient was discussed with the following: Hospitalist: Dr. Alonzo. [facility] 14:39 Response to treatment: the patient's symptoms have mildly improved after treatment. [facility] Special discussion: Based on the history and exam findings, there is no indication for further emergent testing or inpatient evaluation. I discussed with the patient/guardian the need to see the psychiatrist for further evaluation of the symptoms. 11/25 08:22 Order name: Basic Metabolic Panel; Complete Time: 12:18 snw 11/25 08:22 Order name: CBC with Diff; Complete Time: 09:08 snw 11/25 08:22 Order name: LFT's; Complete Time: 12:18 snw 11/25 08:22 Order name: Magnesium; Complete Time: 12:18 snw 11/25 08:22 Order name: NT PRO-BNP; Complete Time: 12:18 snw 11/25 08:22 Order name: PT-INR; Complete Time: 11:03 snw 11/25 08:22 Order name: Troponin HS; Complete Time: 12:18 snw 11/25 09:08 Order name: Blood Culture Adult (2) snw 11/25 09:08 Order name: Lactate w/ 2H reflex if indic.; Complete Time: 11:14 snw 11/25 12:31 Order name: Basic Metabolic Panel EDMS 11/25 12:31 Order name: Basic Metabolic Panel EDMS 11/25 12:31 Order name: CBC with Automated Diff EDMS 11/25 12:31 Order name: CBC with Automated Diff EDMS 11/25 12:31 Order name: Magnesium EDMS 11/25 12:31 Order name: Magnesium EDMS 11/25 12:31 Order name: Phosphorus EDMS 11/25 12:31 Order name: Phosphorus EDMS 11/25 12:31 Order name: Troponin High Sensitivity EDMS 11/25 12:31 Order name: Troponin High Sensitivity EDMS 11/25 12:31 Order name: Troponin High Sensitivity EDMS 11/25 08:22 Order name: XRAY Chest (1 view); Complete Time: 09:08 snw 11/25 08:22 Order name: EKG; Complete Time: 08:23 snw 11/25 12:31 Order name: CONS Physician Consult EDMS 11/25 12:31 Order name: Heart Healthy EDMS 11/25 08:22 Order name: Cardiac monitoring; Complete Time: 08:25 snw 11/25 08:22 Order name: EKG - Nurse/Tech; Complete Time: 09:16 snw 11/25 08:22 Order name: IV Saline Lock; Complete Time: 09:16 snw 11/25 08:22 Order name: Labs collected and sent; Complete Time: 08:42 snw 11/25 08:22 Order name: O2 Per Protocol; Complete Time: 08:25 snw 11/25 08:22 Order name: O2 Sat Monitoring; Complete Time: 08:25 snw EC:55 Rhythm is irregular. QRS [place] is Normal. QRS interval is prolonged. Clinical snw impression: Abnormal EKG without significant change. Administered Medications: 08:57 Drug: Albuterol Inhalation 2.5 mg Route: Inhalation; ko1 09:15 Drug: MethylPrednisoLONE IVP 125 mg Route: IVP; Site: right forearm; bp 13:23 Follow up: Response: No adverse reaction bp 09:15 Drug: NS 0.9% IV 1000 ml Route: IV; Rate: 75 ml/hr; Site: right forearm; bp 13:24 Follow up: IV Status: Infusion continued upon admission bp 09:20 Drug: Albuterol Inhalation 2.5 mg Route: Inhalation; ko1 09:50 Drug: Albuterol Inhalation 2.5 mg Route: Inhalation; ko1 11:11 Drug: Cefepime IVPB 1 grams Route: IVPB; Rate: 200 ml/hr; Infused Over: 30 mins; Site: bp right forearm; 13:23 Follow up: IV Status: Completed infusion; IV Intake: 100ml bp 11:38 Drug: Albuterol Inhalation 2.5 mg Route: Inhalation; ko1 12:00 Drug: Albuterol Inhalation 2.5 mg Route: Inhalation; ko1 12:20 Drug: Albuterol Inhalation 2.5 mg Route: Inhalation; ko1 13:23 Follow up: Response: No adverse reaction bp Disposition: 17:39 Co-signature as Attending Physician, Calvin Clements MD I reviewed the patient's care rn provided by the Advanced Practice Provider and agree with the diagnosis and treatment plan. Disposition Summary: 11/25/22 13:00 Hospitalization Ordered Hospitalization Status: Inpatient Admission snw Provider: Hernan Alonzo Location: Telemetry/MedSurg (Inpatient) snw Condition: Stable snw Problem: an acute exacerbation snw Symptoms: have worsened snw Bed/Room Type: Standard snw Room Assignment: [id number](11/25/22 13:00) [email or web address] Diagnosis - COPD/ Chronic obstructive pulmonary disease with acute lower respiratory infection snw - Unspecified systolic (congestive) heart failure snw Discharge Instructions: - Discharge Summary Sheet iw Forms: - Medication Reconciliation Form snw - SBAR form iw Signatures: Dispatcher [employer] EDFior Whittington, ROUTING EQUIPMENT TENDER-C ROUTING EQUIPMENT TENDER-Csnw Mireille Yang, RN RN Calvin Mccarthy MD MD rn Peltier, Brian, RN RN bp Jackson, Kandis kj1 Myrna Gage RN RN ko1 Corrections: (The following items were deleted from the chart) 13:00 13:00 henry kj1
[2022-11-25] MEDS ORDERED: VANCOMYCIN 1 GM in NA CHLORIDE 0.9% 250 ML IVPB SCH (14:00)
[2022-11-25] MEDS ORDERED: VANCOMYCIN 1.75 GM in NA CHLORIDE 0.9% 500 ML IVPB ONE (15:00)
[2022-11-25 15:19] VITALS: BMI 21.2
[2022-11-25] MEDS: METOPROLOL TAR 25 MG TAB PO SCH (20:29)
[2022-11-25] MEDS: ROSUVASTATIN 10 MG TAB PO SCH (20:29)
[2022-11-25] MEDS: AMIODARONE HCL 200 MG TAB PO SCH (20:30)
[2022-11-25] MEDS: APIXABAN 5 MG TABLET PO SCH (20:30)
[2022-11-25] MEDS ORDERED: HOME MED 1 EA UNK (Rosuvastatin Calcium [Crestor] 20 MG Tablet) PO SCH (21:00)
[2022-11-25] MEDS ORDERED: HEPARIN 5000 UNIT/ML 1 ML VIAL SQ SCH (21:00)
[2022-11-26 02:52] LABS: Absolute Lymphocytes (CBC) 0.4 K/uL (0.7-4.9); Lymphocytes % 3.9 % (15.3-44.8); MCV 89.8 fL (80-100); MPV 9.3 fL (7.6-11.3); RBC Red Blood Cell Count 3.56 M/uL (4.33-5.43)
[2022-11-26 03:10] LABS: Magnesium 2.7 mg/dL (1.6-2.4); Phosphorus 3.4 mg/dL (2.5-4.9); Potassium 3.9 mEq/L (3.5-5.1)
[2022-11-26 06:17] LABS: Blood Morphology Comment NOT SEEN (NOT SEEN); Platelet Estimate ADEQ
[2022-11-26] MEDS: CLOPIDOGREL 75 MG TABLET PO SCH (08:17)
[2022-11-26] MEDS: CEFEPIME 1 GM in NA CHLORIDE 0.9% 100 ML IV SCH (08:17)
[2022-11-26] MEDS: AMIODARONE HCL 200 MG TAB PO SCH ×2 (08:17→22:05)
[2022-11-26] MEDS: ASPIRIN EC 81 MG TAB PO SCH (08:17)
[2022-11-26] MEDS: APIXABAN 5 MG TABLET PO SCH ×2 (08:17→22:05)
[2022-11-26] MEDS: FUROSEMIDE 40 MG TABLET PO SCH (08:17)
[2022-11-26] MEDS: METOPROLOL TAR 25 MG TAB PO SCH ×2 (08:17→22:04)
[2022-11-26] MEDS ORDERED: METHYLPREDNISOLONE 40 MG INJ IV SCH (09:00)
--- NOTE | 2022-11-26 11:37 | P.PN ---
Nephrology note: (S) Pt unfortunately re-admitted soon after recent discharge with similar complaints of shortness of breath, see consult note done within [address] Roy for details. Pt seen in stable condition, no resp distress, denies productive cough, on LFNC. (O) Vitals reviewed in the EMR General: Alert, In no apparent distress, Oriented x3 HEENT: Atraumatic, Normocephalic, PERRLA, EOMI Neck: Supple Respiratory: Other (Poor air entry, non tachypnec, dysphoonia) Cardiovascular: No sig edema, non tachy Gastrointestinal: Soft and benign, Non-distended, No tenderness Musculoskeletal: No swelling, No contractures, No erythema Integumentary: No rashes, Other (xerosis) Neurological: Normal speech, Normal strength at 5/5 x4 extr, Normal tone, Normal affect Conclusions/Impression: -Recurrent MEHREEN episodes over the past year, underlying CKD Stage IIIb. Renal function stable overall for now. Azotemia worse on steroids, holding Ure-Na that was used briefly last admission for hyponatremia -Na level stable and > 130, monitor on chronic loop diuretic therapy. Moderate fluid intake -Diuretic dose on last admission increased from home dose, recent echo with LVEF dysfunction, global hypokinesis, BNP chronically/sig elevated, pt would benefit from Entresto, will start low dose and assess for tolerance -If renal function and K levels remain stable on Entresto, will add back lower dose Spironolactone, started on the last admission -Monitor BP closely -Dyspnea is multifactorial -pt with at least mod COPD, pt put back on steroids by primary team, IM/pulm to manage Yossi Fiore MD, ÁNGEL
--- NOTE | 2022-11-26 11:50 | P.CNS ---
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 by data warehouse administrator denies any fever or chills Allergies No Known Allergies Allergy (Verified 06/14/22 22:26) Home Medications: Albuterol Sulfate [Albuterol Sulfate Hfa] 1 puff IH DAILY 02/05/22 Aspirin [Aspirin EC] 81 mg PO DAILY 04/05/22 Clopidogrel Bisulfate [Plavix] 75 mg PO DAILY 04/05/22 Metoprolol Tartrate 25 mg PO BID 04/05/22 Apixaban [Eliquis] 5 mg PO BID #60 tab 04/09/22 Fluticasone/Salmeterol [Advair 250-50 Diskus] 1 each IH BID #1 kit 05/13/22 Furosemide [Lasix] 80 mg PO DAILY 06/14/22 Rosuvastatin Calcium [Crestor] 20 mg PO BEDTIME 06/14/22 Buspirone HCl [Buspar*] 10 mg PO BID #60 tab 06/20/22 Theophylline Anhydrous [Devaughn-24] 200 mg PO BID 60 Days #60 tab 06/20/22 Albuterol Neb [Proventil 0.083% Neb Soln] 2.5 mg IH Q6H PRN #120 amp 06/23/22 Amlodipine [Norvasc*] 10 mg PO DAILY #30 tab 06/23/22 Ipratropium Neb [Atrovent*] 0.5 mg NEB G4LASTV #120 amp 06/23/22 Nebulizer 1 each IN QID #1 kit 06/23/22 Amiodarone HCl [Cordarone*] 400 mg PO BID tab 11/24/22 Urea [Ure-Na] 30 gm PO DAILY #30 packet 11/24/22 predniSONE [Deltasone*] 10 mg PO BID #10 tab 11/24/22 - Past Medical/Surgical History Diabetic: No -: HTN -: COPD -: HTN -: CHF -: CKD followed by Dr. Roy -: CAD -: A. fib on chronic anticoagulation -: heart stent -: Heart cath evere CAD Psychosocial/ Personal History: Patient lives at home with his . - Family History Father Medical History: Heart disease Notes: Heart attack Mother Medical History: Lung disease Notes: COPd - Social History Smoking Status: Unknown if ever smoked Alcohol use: Yes CD- Drugs: No Caffeine use: Yes Place of Residence: [place] Review of Systems 10-point ROS is otherwise unremarkable General: Weakness Respiratory: Cough, Shortness of Breath Physical Examination Temp Pulse Resp BP Pulse Ox 97.7 F 73 18 133/79 99 11/26/22 08:00 11/26/22 08:00 11/26/22 08:00 11/26/22 08:00 11/26/22 08:00 General: Alert, Oriented x3, Mild distress Respiratory: Expiratory wheezes Cardiovascular: Normal pulses, Regular rate/rhythm, Edema Gastrointestinal: Normal bowel sounds, Soft and benign Musculoskeletal: No clubbing Integumentary: No rashes, No breakdown Neurological: Normal speech - Problems (1) Acute exacerbation of CHF (congestive heart failure) Onset Date: 07/28/18 Current Visit: No Status: Acute Plan: Patient is 72 years of age has terminal congestive heart failure recurrent hospital admissions admitted again with shortness of breath he has severe global hypokinesis dizziness on the left side of presumed worsening pleural effusion renal function is worse seen by nephrology doubt sepsis his white count is declined to 10 cultures are negative DC vancomycin patient is hypoxic he is on 5 L nasal cannula oxygen also on amiodarone abided telemetry prognosis poor currently he will need a defibrillator add nebulized Brovana reduce the dose of prednisone to 10 twice a day Qualifiers: Heart failure type: diastolic Qualified Code(s): I50.33 - Acute on chronic diastolic (congestive) heart failure
[2022-11-26] MEDS: ARFORMOTEROL TARTRATE 15 MCG/2 ML VIAL.NEB NEB SCH ×2 (11:51→20:10)
--- NOTE | 2022-11-26 12:10 | P.PN ---
Subjective Date of Service: 11/26/22 Chief Complaint: CHF exacerbation Patient is needing 5 L of oxygen by nasal cannula. He states his shortness of breath is better today compared to yesterday. No fever. Physical Examination - Vital Signs Temperature: 97.7 F Blood Pressure: 133/79 Pulse: 73 Respirations: 18 Pulse Ox (%): 99 - Physical Exam General: Alert, In no apparent distress, Oriented x3 HEENT: Other (Oxygen by nasal cannula) Neck: JVD not distended Respiratory: Normal air movement, Other (faint bibasilar Rales) Cardiovascular: No edema, Normal S1 S2, Irregular heart rate/rhythm Gastrointestinal: Normal bowel sounds, Soft and benign, Non-distended, No tenderness Musculoskeletal: No swelling Integumentary: Other (Multiple ecchymosis on bilateral upper extremities.) Neurological: Normal speech, Normal strength at 5/5 x4 extr, Cranial nerves 3-12 intact Assessment And Plan - Plan Acute Chronic Obstructive Pulmonary Disease Exacerbation/Chronic Respiratory Failure due to COPD/Tobacco Use Disorder Chest x-ray = "worsened aeration lungs compared with 11/20/2022 which could reflect either increasing edema and/or progressive infection." Pulmonology consulted - recommendations appreciated Continue steroids and bronchodilators Supplemental oxygen to maintain SpO2 > 92% Bronchodilators and nebs Tobacco cessation counseling Encouraged incentive spirometry Acute on Chronic Systolic Congestive Heart Failure Exacerbation/Type II Non-ST Segment Elevation Myocardial Infarction/Coronary Artery Disease/Hypertension/Dyslipidemia Cardiac catheterization on 02/01/2022 revealed severe coronary artery disease and recommendation at the time was medical management Cardiology consulted - recommendations appreciated EKG = without STEMI criteria. Recent echo with EF 35% Troponin trended flat. Continue home aspirin, rosuvastatin, clopidogrel, metoprolol, furosemide Possible Sepsis secondary to Pneumonia He met 2/4 SIRS criteria with a HR > 90 bpm and a WBC count > 12,000. Ordered blood cultures x 2 Chest x-ray = "worsened aeration lungs compared with 11/20/2022 which could reflect either increasing edema and/or progressive infection." Lactate = 1.2 Procalcitonin only minimally elevated. Pneumonia not likely Change antibiotics to oral Levaquin. Chronic Atrial Fibrillation /History of Ventricular Tachycardia His [id number] = 4 (CHF=1, HTN=1, CAD=1, Age 65-74=1), which warrants anticoagulation. Continue metoprolol, amiodarone Continue home apixaban Cardiology recommended AICD placement Chronic Kidney Disease Stage III Nephrology consulted - recommendations appreciated Creatinine = 2.12 (near baseline) Diuretics as mentioned above Monitor creatinine and urine output Renally dose medications
[2022-11-26] MEDS: SACUBITRIL/VALSARTAN 24/26 MG TAB PO SCH ×2 (13:23→22:05)
[2022-11-26] MEDS: IPRATROPIUM BROM 0.5MG/2.5ML NEB PRN ×2 (14:54→20:10)
[2022-11-26] MEDS: ALBUTEROL 2.5 MG/3 ML NEB SOL NEB PRN ×2 (14:54→20:10)
[2022-11-26] MEDS: ENSURE PUDDING 4 OZ CUP PO SCH (21:00)
[2022-11-26] MEDS ORDERED: predniSONE 20 MG TAB PO SCH (21:00)
[2022-11-26] MEDS: ROSUVASTATIN 10 MG TAB PO SCH (22:04)
[2022-11-26] MEDS: predniSONE 10 MG TAB PO SCH (22:05)
[2022-11-27 02:16] LABS: Absolute Lymphocytes (CBC) 0.4 K/uL (0.7-4.9); Hematocrit 32.1 % (39.6-49.0); Lymphocytes % 3.6 % (15.3-44.8); MCV 89.4 fL (80-100); MPV 9.1 fL (7.6-11.3); RBC Red Blood Cell Count 3.59 M/uL (4.33-5.43)
[2022-11-27] MEDS ORDERED: VANCOMYCIN 1.25 GM in NA CHLORIDE 0.9% 250 ML IVPB SCH (03:00)
[2022-11-27] MEDS: ARFORMOTEROL TARTRATE 15 MCG/2 ML VIAL.NEB NEB SCH ×2 (08:00→20:05)
[2022-11-27] MEDS: AMIODARONE HCL 200 MG TAB PO SCH ×2 (08:03→20:28)
[2022-11-27] MEDS: APIXABAN 5 MG TABLET PO SCH ×2 (08:03→20:29)
[2022-11-27] MEDS: FUROSEMIDE 40 MG TABLET PO SCH (08:03)
[2022-11-27] MEDS: ASPIRIN EC 81 MG TAB PO SCH (08:03)
[2022-11-27] MEDS: METOPROLOL TAR 25 MG TAB PO SCH ×2 (08:03→20:28)
[2022-11-27] MEDS: SACUBITRIL/VALSARTAN 24/26 MG TAB PO SCH ×2 (08:03→20:27)
[2022-11-27] MEDS: CLOPIDOGREL 75 MG TABLET PO SCH (08:04)
[2022-11-27] MEDS: predniSONE 10 MG TAB PO SCH ×2 (08:04→20:28)
[2022-11-27] MEDS: CEFEPIME 1 GM in NA CHLORIDE 0.9% 100 ML IV SCH (08:04)
[2022-11-27] MEDS: ENSURE PUDDING 4 OZ CUP PO SCH ×3 (08:04→20:30)
--- NOTE | 2022-11-27 12:14 | CON ---
The patient admitted to Dr. Jenkins on 11/25/2022. He was discharged on 11/24/2022. Reason For Consultation: He comes in with congestive heart failure. History Of Present Illness: Mr. Chow is a 72-year-old, he is a very unfortunate man with multiple me dical problems including severe congestive heart failure, low ejection fraction. He has COPD, dyslip idemia. He just had ventricular tachycardia recently and was placed on 400 b.i.d. and he is still ta benjamin that same dose. He has paroxysmal atrial fibrillation on Eliquis. Has diabetes, hypertension, coronary artery disease, renal insufficiency, comes in with a creatinine of 2.04, white count of 17,0 00. Troponin 183 with his usual symptoms. No VT this time, but shortness of breath and CHF type sym ptoms. Past Medical History: As stated above. Allergies: NONE. Review of Systems: Negative. Social History: Negative. Family History: Negative. Medications: At home include inhalers, Crestor, steroids, Lasix, amiodarone, Eliquis, Norvasc, aspir in, Plavix, and metoprolol. Physical Examination: Vital Signs: Stable. General: He was in no acute distress. He was in sinus rhythm. HEENT: Negative. Neck: Supple. No bruit. Chest: Actually reveals some expiratory wheezing, but no rales. Cardiac: Revealed S3 gallops. Regular rhythm and rate. Abdomen: Benign. Extremities: Revealed no clubbing, cyanosis, or edema. Diagnostic Data: As stated earlier. Impression And Plan: This is a patient with most likely ischemic cardiomyopathy, low ejection fracti on, ventricular tachycardia. He is on amiodarone. I suggested to him the last time that if he could to go to [place], where they have electrophysiology services so they can consider defibrillator pace maker in him and I reiterated that to him. Otherwise, continue diuresis. Continue amiodarone, just make sure 200 mg a day after taking 400 mg b.i.d. for a week. Mr. Chow needs either to fi nd a php lamp developer locally who can take his insurance and be referred for electrophysiology services o r go to [facility], or they have electrophysiology services because this i s what he needs at this point. Otherwise, he is going to be a recurrent admissions. Case was discus sed and has been discussed with Dr. Jenkins in the past. Meanwhile, continue present regimen. We chase l continue to follow him. SHELTON/ARTURO Voice ID: [id number] Report ID: [id number]
--- NOTE | 2022-11-27 15:07 | P.PN ---
Subjective Date of Service: 11/27/22 Chief Complaint: CHF exacerbation Patient has no new complaint. He states he feels much better. Oxygen has been weaned down to 2 L by nasal cannula. No fever. Physical Examination - Vital Signs Temperature: 98 F Blood Pressure: 141/66 Pulse: 65 Respirations: 18 Pulse Ox (%): 97 Assessment And Plan - Plan Acute Chronic Obstructive Pulmonary Disease Exacerbation/Chronic Respiratory Failure due to COPD/Tobacco Use Disorder Chest x-ray = "worsened aeration lungs compared with 11/20/2022 which could reflect either increasing edema and/or progressive infection." Pulmonology consulted - recommendations appreciated. Patient has clinically improved Continue steroids and bronchodilators Supplemental oxygen to maintain SpO2 > 92% Acute on Chronic Systolic Congestive Heart Failure Exacerbation/Type II Non-ST Segment Elevation Myocardial Infarction/Coronary Artery Disease/Hypertension/Dyslipidemia Cardiac catheterization on 02/01/2022 revealed severe coronary artery disease and recommendation at the time was medical management Cardiology consulted - recommendations appreciated EKG = without STEMI criteria. Recent echo with EF 35% Troponin trended flat. Continue home aspirin, rosuvastatin, clopidogrel, metoprolol, furosemide Dr. Sharif recommended AICD placement. Possible Sepsis secondary to Pneumonia He met 2/4 SIRS criteria with a HR > 90 bpm and a WBC count > 12,000. Blood cultures x 2: No growth Chest x-ray = "worsened aeration lungs compared with 11/20/2022 which could reflect either increasing edema and/or progressive infection." Lactate = 1.2 Procalcitonin only minimally elevated. Pneumonia not likely Continue oral Levaquin. Chronic Atrial Fibrillation /History of Ventricular Tachycardia His [id number] = 4 (CHF=1, HTN=1, CAD=1, Age 65-74=1), which warrants anticoagulation. Continue metoprolol, amiodarone Continue home apixaban Cardiology recommended AICD placement Chronic Kidney Disease Stage III Nephrology consulted - recommendations appreciated Creatinine = 2.12 (near baseline) Diuretics as mentioned above Monitor creatinine and urine output Renally dose medications
--- NOTE | 2022-11-27 17:08 | PN ---
Date of Progress Note: 11/26/2022 Subjective: The patient was seen and examined at bedside. He is slightly better. Plan is for him t o get transferred to the [facility] for placement of defibrillator. Objective: Vital Signs: Have been reviewed and are stable. General: He appears in no acute distress. HEENT: Atraumatic head. Heart: Auscultation of the heart revealed regular rate and rhythm. Lungs: Bilateral wheezing was noted on examination of the lungs. Abdomen: Soft and nontender. Extremities: Showed no evidence of edema. Laboratory Data: At this time are showing creatinine of 2.01, BUN of 85, sodium of 136, and potassiu m of 4. Current Medications: Have been reviewed in detail. He remains on Entresto for his CHF and he is als o on Lasix 80 mg daily, prednisone 10 mg p.o. b.i.d., amiodarone 400 mg b.i.d., and Eliquis 5 mg b.i. d. He is getting cefepime 1 g daily and Plavix. Impression: 1.Acute dyspnea on exertion secondary to combination of congestive heart failure and chronic obstruc tive pulmonary disease exacerbation. He is currently being treated for both. He is getting pulmonar y toilet, nebulizer treatments, as well as ongoing diuresis. The patient's volume status seems to be stable, however, he is actively wheezing. He will benefit from aggressive pulmonary toilet and will hold off on any increasing in his steroids at this time. 2.Ischemic cardiomyopathy with a low ejection fraction. The patient is being monitored by Dr. Jeovanny vitale and plan for him to get defibrillator pacemaker placement. 3.Hyponatremia, likely secondary to combination of congestive heart failure and chronic obstructive pulmonary disease, currently improving at this time. 4.Anemia secondary to chronic disease with hemoglobin and hematocrit remaining stable. Plan: Overall, patient is clinically stable. Continue diuresis and COPD treatments. Nephrology chase l continue to monitor patient's for monitoring his renal functions, which seems to be at baseline sta ge 4 chronic kidney disease. Thank you very much for this consultation. Please do not hesitate to call us with any questions or c oncerns. VV/MODL Voice ID: [id number] Report ID: [id number]
[2022-11-27] MEDS: ROSUVASTATIN 10 MG TAB PO SCH (20:28)
[2022-11-28 03:13] LABS: Absolute Lymphocytes (CBC) 0.5 K/uL (0.7-4.9); Lymphocytes % 3.6 % (15.3-44.8); MCV 89.9 fL (80-100); MPV 9.2 fL (7.6-11.3); RBC Red Blood Cell Count 3.78 M/uL (4.33-5.43)
[2022-11-28 03:31] LABS: Potassium 4.4 mEq/L (3.5-5.1)
[2022-11-28] MEDS: METOPROLOL TAR 25 MG TAB PO SCH (07:59)
[2022-11-28] MEDS: FUROSEMIDE 40 MG TABLET PO SCH (07:59)
[2022-11-28] MEDS: AMIODARONE HCL 200 MG TAB PO SCH (08:00)
[2022-11-28] MEDS: ENSURE PUDDING 4 OZ CUP PO SCH ×2 (08:00→14:00)
[2022-11-28] MEDS: CLOPIDOGREL 75 MG TABLET PO SCH (08:00)
[2022-11-28] MEDS: SACUBITRIL/VALSARTAN 24/26 MG TAB PO SCH (08:00)
[2022-11-28] MEDS: predniSONE 10 MG TAB PO SCH (08:00)
[2022-11-28] MEDS: ASPIRIN EC 81 MG TAB PO SCH (08:00)
[2022-11-28] MEDS: APIXABAN 5 MG TABLET PO SCH (08:00)
[2022-11-28] MEDS: ALBUTEROL 2.5 MG/3 ML NEB SOL NEB PRN ×2 (08:30→14:30)
[2022-11-28] MEDS: ARFORMOTEROL TARTRATE 15 MCG/2 ML VIAL.NEB NEB SCH (08:30)
[2022-11-28] MEDS ORDERED: levoFLOXacin 750 MG TAB PO SCH (09:00)
[2022-11-28 12:33] VITALS: BP 105/62; TEMP 98.7
--- NOTE | 2022-11-28 12:51 | P.DS ---
Admission Date: 11/25/22 Discharge Date: 11/28/22 Reason for Admission: CHF exacerbation Brief History of Present Illness: Mr. Gabo Chow is a pleasant 72 year old male with a past medical history significant for chronic obstructive pulmonary disease, paroxysmal atrial fibrillation, chronic systolic congestive heart failure, coronary artery disease, hypertension, and chronic kidney disease stage III who presented to the [facility] Emergency Department for shortness of breath. He was recently admitted for an acute COPD and CHF exacerbation from 11/17/2022 to 11/24/2022. He reported that, since discharge, he has developed progressively worsening shortness of breath. He stated that this has been associated with a dry cough and wheezing. He denies any obvious inciting or alleviating factors. He has not tried taking any medications for his symptoms. On review of systems, he denies any fevers, chills, headaches, dizziness, syncope, chest pain, palpitations, abdominal pain, nausea/vomiting, diarrhea, constipation, or any other symptoms. He presents today for further evaluation. Upon presentation, his vital signs were notable for a heart rate up to 98 breaths/min. His laboratory studies were notable for a WBC count of 17,000, a creatinine of 2.12 (near baseline), an initial troponin of 176.3, and an NT-Pro BNP of 36,672. Blood cultures x 2 were obtained. His EKG was without STEMI criteria. His chest x-ray revealed, "worsened aeration lungs compared with 11/20/2022 which could reflect either increasing edema and/or progressive infection." In the Emergency Department, he was given albuterol, cefepime, and methylprednisolone. He was admitted to the General Internal Medicine Service for further management. Hospital Course: Patient admitted to the medical floor and the following medical problems addressed Acute Chronic Obstructive Pulmonary Disease Exacerbation/Chronic Respiratory Failure due to COPD/Tobacco Use Disorder Chest x-ray = "worsened aeration lungs compared with 11/20/2022 which could reflect either increasing edema and/or progressive infection." Patient was seen by pulmonary and treated with steroids and bronchodilators Patient has clinically improved He remains supplemental oxygen to maintain SpO2 > 92% Acute on Chronic Systolic Congestive Heart Failure Exacerbation/Type II Non-ST Segment Elevation Myocardial Infarction/Coronary Artery Disease/Hy pertension/Dyslipidemia Cardiac catheterization on 02/01/2022 revealed severe coronary artery disease and recommendation at the time was medical management Patient seen by cardiology-Dr. Turner who recommended AICD as soon as possible. EKG = without STEMI criteria. Recent echo with EF 35% Troponin trended flat. Continued home aspirin, rosuvastatin, clopidogrel, metoprolol, furosemide Possible Sepsis secondary to Pneumonia He met 2/4 SIRS criteria with a HR > 90 bpm and a WBC count > 12,000. Blood cultures x 2: No growth Chest x-ray = "worsened aeration lungs compared with 11/20/2022 which could reflect either increasing edema and/or progressive infection." Lactate = 1.2 Procalcitonin only minimally elevated. Pneumonia not likely He was treated with oral Levaquin. Chronic Atrial Fibrillation /History of Ventricular Tachycardia His [id number] = 4 (CHF=1, HTN=1, CAD=1, Age 65-74=1), which warrants anticoagulation. Continued metoprolol, amiodarone Continue home apixaban Cardiology recommended AICD placement as soon as possible. Transfer to [facility] initiated. Patient has been accepted for transfer to [facility]. Vitals are stable for transfer. Chronic Kidney Disease Stage III He was seen by nephrology. Creatinine is near baseline. Patient was treated with diuretics. He is currently on oral lasix Vital Signs/Physical Exam: Temp Pulse Resp BP Pulse Ox 98.7 F 50 19 105/62 98 11/28/22 12:00 11/28/22 12:00 11/28/22 12:00 11/28/22 12:00 11/28/22 12:00 General: Alert, In no apparent distress, Oriented x3 HEENT: Mucous membr. moist/pink Neck: JVD not distended Respiratory: Clear to auscultation bilaterally, Normal air movement Cardiovascular: No edema, Normal S1 S2, Irregular heart rate/rhythm Gastrointestinal: Normal bowel sounds, Soft and benign, Non-distended Musculoskeletal: No swelling Integumentary: No cyanosis Neurological: Normal strength at 5/5 x4 extr Laboratory Data at Discharge: WBC 12.70 thou/uL (4.3-10.9) H 11/28/22 02:40 Hgb 11.1 g/dL (13.6-17.9) L 11/28/22 02:40 Hct 34.0 % (39.6-49.0) L 11/28/22 02:40 Plt Count 193 thou/uL (152-406) 11/28/22 02:40 PT 15.0 SECONDS (9.5-12.5) H 11/25/22 10:44 INR 1.36 11/25/22 10:44 Sodium 134 mEq/L (136-145) L 11/28/22 02:40 Potassium 4.4 mEq/L (3.5-5.1) 11/28/22 02:40 BUN 82 mg/dL (7-18) H 11/28/22 02:40 Creatinine 1.87 mg/dL (0.70-1.30) H 11/28/22 02:40 Glucose 165 mg/dL (74-106) H 11/28/22 02:40 Phosphorus 3.4 mg/dL (2.5-4.9) 11/26/22 02:09 Magnesium 2.7 mg/dL (1.6-2.4) H 11/26/22 02:09 Total Bilirubin 0.7 mg/dL (0.2-1.0) 11/25/22 10:44 AST 15 U/L (15-37) 11/25/22 10:44 ALT 22 U/L (16-61) 11/25/22 10:44 Alkaline Phosphatase 92 U/L (45-117) 11/25/22 10:44 Home Medications: Albuterol Sulfate [Albuterol Sulfate Hfa] 1 puff IH DAILY 02/05/22 Aspirin [Aspirin EC] 81 mg PO DAILY 04/05/22 Clopidogrel Bisulfate [Plavix] 75 mg PO DAILY 04/05/22 Metoprolol Tartrate 25 mg PO BID 04/05/22 Apixaban [Eliquis] 5 mg PO BID #60 tab 04/09/22 Fluticasone/Salmeterol [Advair 250-50 Diskus] 1 each IH BID #1 kit 05/13/22 Furosemide [Lasix] 80 mg PO DAILY 06/14/22 Rosuvastatin Calcium [Crestor] 20 mg PO BEDTIME 06/14/22 Buspirone HCl [Buspar*] 10 mg PO BID #60 tab 06/20/22 Theophylline Anhydrous [Devaughn-24] 200 mg PO BID 60 Days #60 tab 06/20/22 Albuterol Neb [Proventil 0.083% Neb Soln] 2.5 mg IH Q6H PRN #120 amp 06/23/22 Amlodipine [Norvasc*] 10 mg PO DAILY #30 tab 06/23/22 Ipratropium Neb [Atrovent*] 0.5 mg NEB [id number] #120 amp 06/23/22 Nebulizer 1 each IN QID #1 kit 06/23/22 Amiodarone HCl [Cordarone*] 400 mg PO BID tab 11/24/22 Urea [Ure-Na] 30 gm PO DAILY #30 packet 11/24/22 predniSONE [Deltasone*] 10 mg PO BID #10 tab 11/24/22 Followup: NONE,NONE [Primary Care Provider] - Time spent managing pt's care (in minutes): 38
[2022-11-28] MEDS: IPRATROPIUM BROM 0.5MG/2.5ML NEB PRN (14:30)
[2022-11-28 15:32] VITALS: O2SAT 100
== END 2022-11-28 15:19 | disposition short-term general hospital (02) | DRG 280 ==
LOC: ER 08:17 → ERHOLD 12:36 → 2ND 13:25
PROVIDERS: ADMIT Internal Medicine; ATTEND Internal Medicine
DX: I13.0 Hypertensive heart and chronic kidney disease with heart failure and stage 1 through stage 4 chronic kidney disease, or unspecified chronic kidney disease (principal); I21.A1 Myocardial infarction type 2; I50.23 Acute on chronic systolic (congestive) heart failure; J44.1 Chronic obstructive pulmonary disease with (acute) exacerbation; J96.10 Chronic respiratory failure, unspecified whether with hypoxia or hypercapnia; N17.9 Acute kidney failure, unspecified; E87.1 Hypo-osmolality and hyponatremia; R65.10 Systemic inflammatory response syndrome (SIRS) of non-infectious origin without acute organ dysfunction; N18.32 Chronic kidney disease, stage 3b; D63.1 Anemia in chronic kidney disease; I48.0 Paroxysmal atrial fibrillation; J44.9 Chronic obstructive pulmonary disease, unspecified; I25.2 Old myocardial infarction; I25.5 Ischemic cardiomyopathy; D72.829 Elevated white blood cell count, unspecified; I25.10 Atherosclerotic heart disease of native coronary artery without angina pectoris; F17.210 Nicotine dependence, cigarettes, uncomplicated; Z95.5 Presence of coronary angioplasty implant and graft; Z79.82 Long term (current) use of aspirin; Z79.02 Long term (current) use of antithrombotics/antiplatelets; Z99.81 Dependence on supplemental oxygen; Z79.01 Long term (current) use of anticoagulants; Z79.52 Long term (current) use of systemic steroids; Z79.899 Other long term (current) drug therapy
CPT/HCPCS: 36415; 71045; 80048; 80076; 80202; 83605; 83735; 83880; 84100; 84145; 84484; 85025; 85610; 87040; 93005; 94010; 94640; 96361; 96365; 96366; 96375; 99285; J0692; J2920; J2930; J7030; J7040; J7050; J7512; J7605; J7613; J7644

== ENCOUNTER 2022-12-09 20:44 | Inpatient (IN) | payer MEDICARE ==
--- OUTSIDE RECORDS SUMMARY | 2022-12-09 20:55 | XMS REPORT | Continuity of Care Document ---
:1950 Author Organization [facility] t Address [address] [place] [address] Care Team Providers Name Role Phone Pcp, Patient Does Not Have A Primary Care Physician [id number] JOSE R CORADO Attending Clinician Unavailable RICKIE CANNON Attending Clinician Unavailable NESS SMITH Attending Clinician Unavailable Doctor Unassigned, [place] Attending Clinician Unavailable Arlene Yi Attending Clinician [...] Clinician Unavailable Jen Alonzo MD Attending Clinician Ness Smith MD Attending Clinician Rickie Cannon MD Attending Clinician HARDEEP LAU Attending Clinician Unavailable Hardeep Lau MD Attending Clinician PASTORA LOPEZ Attending Clinician Unavailable THANG FRANCIS M.D. Attending Clinician Unavailable PASTORA LOPEZ M.D. Attending Clinician Unavailable NESS SMITH Admitting Clinician Unavailable Jagdeep Fagan MD Admitting Clinician JAGDEEP FAGAN Admitting Clinician Unavailable JEN ALONZO Admitting Clinician Unavailable Payers Payer Name Policy Type Policy Number Effective Date Expiration Date S rosio FORMERLY [facility], 1928–1983 HEALTH MGD [id number] 2020 [facility] 00:00:00 [facility] COMM STAR [id number] 2022 PLAN 00:00:00 [facility] [id number] 2020 (MEDICARE 00:00:00 REPLACEMENT HMO) Problems Condition Condition Condition Status Onset Resolution Last Treating Co mments Source Name Details Category Date Date Treatment Clinician Date Dyspnea, Dyspnea, Disease Active Unive rs unspecifie unspecifie 8-21 it y of d type d type 00:00: [place] 00 Medical Branch 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 Active 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: [place] congestive congestive 00 Me dical heart heart Branch failure failure Hyperkalem Hyperkalem Disease Active U nivers ia ia 8-21 ity of 00:00: [place] 00 Medical Branch 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 [place] Tachycardi Tachycardi Disease Active U nivers a a 8-21 ity of 00:00: [place] 00 Medical Branch Hypertensi Hypertensi Disease Active [facility]16 [facility] 00 Center 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[facility] 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Center 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 Pulmonary Pulmonary Disease Active [facility] edema edema 5-16 [facility] Center Demand Demand Disease Recurre [facility] ischemia ischemia nce 5-16 [facility] Medical [facility] Center MEHREEN (acute MEHREEN (acute Disease Recurre [facility] kidney kidney nce 5-16 [facility] injury) injury) 00:00: Medical 00 Center Acute Acute Disease Recurre [facility] respirator respirator nce 5-15 [facility] kes y failure y failure 00:00: Medi south with with 00 Center hypercapni hypercapni a a Athscl Athscl Problem Active [facility] heart heart [facility]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 ang [...] Active Univers ALLERGIE Class ity of S [facility] Social History Social Habit Start Date Stop Date Quantity Comments Source History [facility] Food 2022-02-22 2022-02-22 1 Univers ity of Worry 00:00:00 00:00:00 [facility] History [facility] Food 2022-02-22 2022-02-22 1 Univers ity of Scarcity 00:00:00 00:00:00 [facility] History [facility] 2022-02-22 2022-02-22 2 University o f Transport Med 00:00:00 00:00:00 [facility] Branch History [facility] 2022-02-22 2022-02-22 2 University o f Transport Non-Med 00:00:00 00:00:00 [facility] Exposure to 2022-02-04 2022-02-14 Not sure University of SARS-CoV-2 (event) 00:00:00 14:51:00 [facility] Cigarettes smoked 2022-02-14 2022-02-14 Univers ity of current (pack per 00:00:00 00:00:00 [facility]) - Reported Branch Cigarette 2022-02-14 2022-02-14 University of pack-years 00:00:00 00:00:00 [facility] Tobacco use and 2022-02-14 2022-02-14 Smokeless Universit y of exposure 00:00:00 00:00:00 tobacco non-user [facility] Alcohol intake 2021-11-10 2021-11-10 Ex-drinker ALEXEI Read es 00:00:00 00:00:00 (finding) Medical Center History of tobacco 2021-10-25 Passive smoker Un iversity of use 00:00:00 [facility] Sex Ass[birth year] ALEXEI Phillipss 00:00:00 00:00:00 [facility] Center Smoking Status Start Date Stop Date Source Smokes tobacco daily [facility] (finding) Ex-smoker 2022-02-14 00:00:00 2022-02-14 00:00:00 [facility] Medications Ordered Filled Start Stop Current Ordering Indication Dosage Frequency Signature Comments Components Source Medication Medication Date Date Medication? Clinician (SIG) Name Name pradip Yes [id number] 500mg Take 1 Univers n 500 mg 8-27 tablet by ity of tablet 00:00: mouth in [place] the Medical morning. Branch furosemide Yes [id number] 40mg Take 1 Univers 40 mg 8-27 tablet by ity of tablet 00:00: mouth in [place] the Medical morning. Branch azithromyci Yes [id number] 500mg Take 1 Univers n 500 mg 8-27 tablet by ity of tablet 00:00: mouth in [place] [address] the Medical morning. Branch furosemide 2021- Yes [id number] 40mg Take 1 Univers 40 mg 8-27 tablet by ity of tablet 00:00: mouth in [place] the Medical morning. Branch azithromyci Yes [id number] 500mg Take 1 Univers n 500 mg 8-27 tablet by ity of tablet 00:00: mouth in [place] the Medical morning. Branch furosemide 2021-0 Yes [id number] 40mg Take 1 Univers 40 mg 8-27 tablet by ity of tablet 00:00: mouth in [place] the Medical morning. Branch azithromyci Yes [id number] 500mg Take 1 Univers n 500 mg 8-27 tablet by ity of tablet 00:00: mouth in [place] the Medical morning. Branch furosemide 2021- Yes [id number] 40mg Take 1 Univers 40 mg 8-27 tablet by ity of tablet 00:00: mouth in [place] the Medical morning. Branch azithromyci 2021-0 Yes [id number] 500mg Take 1 Univers n 500 mg 8-27 tablet by ity of tablet 00:00: mouth in [place] the Medical morning. Branch furosemide 2021-0 Yes [id number] 40mg Take 1 Univers 40 mg 8-27 tablet by ity of tablet 00:00: mouth in [place] the Medical morning. Branch azithromyci 2021-0 Yes [id number] 500mg Take 1 Univers n 500 mg 8-27 tablet by ity of tablet 00:00: mouth in [place] the Medical morning. Branch furosemide 2021-0 Yes [id number] 40mg Take 1 Univers 40 mg 8-27 tablet by ity of tablet 00:00: mouth in [place] the Medical morning. Branch azithromyci 0 Yes [id number] 500mg Take 1 Univers n 500 mg 8-27 tablet by ity of tablet 00:00: mouth in [place] the Medical morning. Branch furosemide 2021-0 Yes [id number] 40mg Take 1 Univers 40 mg 8-27 tablet by ity of tablet 00:00: mouth in [place] the Medical morning. Branch azithromyci 0 Yes [id number] 500mg Take 1 Univers n 500 mg 8-27 tablet by ity of tablet 00:00: mouth in [place] the Medical morning. Branch furosemide 2021-0 Yes [id number] 40mg Take 1 Univers 40 mg 8-27 tablet by ity of tablet 00:00: mouth in [place] the Medical morning. Branch aspirin 81 0 2021- No [id number] 81mg Take 1 Univers mg chewable 8-27 03-23 tablet by it y of tablet 00:00: 04:59 mouth in [place] 00 :00 the Medical morning Branch for 30 days. clopidogreL 2021-0 2021- No [id number] 75mg Take 1 Univers 75 mg 8-27 03-23 tablet by ity of tablet 00:00: 04:59 mouth in [place] 00 :00 the Medical morning Branch for 30 days. Fluticasone 2021-2021- No [id number] 1{puff} Inhale 1 Univers -Salmeterol 8-27 - Puff every i ty of 100-50 00:00: 04:59 12 [place] mcg/dose 00 :00 (twelve) Medical inhalation hours for Bran ch disk 30 days. rosuvastati 2021- No [id number] 20mg Take 1 Univers n 20 mg 8-23 03- tablet by ity of tablet 00:00: 04:59 mouth at [place] 00 :00 bedtime Medical for 30 Branch days. aspirin 81 2021- No [id number] 81mg Take 1 Univers mg chewable 8-23 03- tablet by it y of tablet 00:00: 04:59 mouth in [place] 00 :00 the [facility] morning Francis for 30 days. clopidogreL 2021-2021- No [id number] 75mg Take 1 Univers 75 mg 8-27 - tablet by ity of tablet 00:00: 04:59 mouth in [place] 00 :00 the [facility] morning Francis for 30 days. Fluticasone 2021-0 2021- No [id number] 1{puff} Inhale 1 Univers -Salmeterol 8-23 03- Puff every i ty of 100-50 00:00: 04:59 12 [place] mcg/dose 00 :00 (twelve) Medical inhalation hours for Bran ch disk 30 days. rosuvastati 2021- No [id number] 20mg Take 1 Univers n 20 mg -03-23 tablet by ity of tablet 00:00: 04:59 mouth at [place] 00 :00 bedtime Medical for 30 Branch days. aspirin 81 2021- No [id number] 81mg Take 1 Univers mg chewable 8-23 03- tablet by it y of tablet 00:00: 04:59 mouth in [place] 00 :00 the [facility] morning Francis for 30 days. clopidogreL 2021-2021- No [id number] 75mg Take 1 Univers 75 mg 8-27 - tablet by ity of tablet 00:00: 04:59 mouth in [place] 00 :00 the [facility] morning Francis for 30 days. Fluticasone 2021-2021- No [id number] 1{puff} Inhale 1 Univers -Salmeterol 8-23 03- Puff every i ty of 100-50 00:00: 04:59 12 [place] mcg/dose 00 :00 (twelve) Medical inhalation hours for Bran ch disk 30 days. rosuvastati 2022-0 2022- No [id number] 20mg Take 1 Univers n 20 mg 02-20 tablet by ity of tablet 00:00: 04:59 mouth at [place] 00 :00 bedtime Medical for 30 Branch days. aspirin 81 2021- No [id number] 81mg Take 1 Univers mg chewable 02-20 tablet by it y of tablet 00:00: 04:59 mouth in [place] 00 :00 the [facility] for 30 days. clopidogreL 2021- No [id number] 75mg Take 1 Univers 75 mg -03-23 tablet by ity of tablet 00:00: 04:59 mouth in [place] 00 :00 the [facility] for 30 days. Fluticasone 2021- No [id number] 1{puff} Inhale 1 Univers -Salmeterol 02-20 Puff every i ty of 100-50 00:00: 04:59 12 [place] mcg/dose 00 :00 (twelve) Medical inhalation hours for Bran ch disk 30 days. rosuvastati 2021- No [id number] 20mg Take 1 Univers n 20 mg 02-20 tablet by ity of tablet 00:00: 04:59 mouth at [place] 00 :00 bedtime Medical for 30 Branch days. aspirin 81 2021- No [id number] 81mg Take 1 Univers mg chewable 02-20 tablet by it y of tablet 00:00: 04:59 mouth in [place] 00 :00 the [facility] for 30 days. clopidogreL 2021- No [id number] 75mg Take 1 Univers 75 mg 02-20 tablet by ity of tablet 00:00: 04:59 mouth in [place] 00 :00 the [facility] for 30 days. Fluticasone 2021- No [id number] 1{puff} Inhale 1 Univers -Salmeterol 02-20 Puff every i ty of 100-50 00:00: 04:59 12 [place] mcg/dose 00 :00 (twelve) Medical inhalation hours for Bran ch disk 30 days. rosuvastati 2021- No [id number] 20mg Take 1 Univers n 20 mg 02-20 tablet by ity of tablet 00:00: 04:59 mouth at [place] 00 :00 bedtime Medical for 30 Branch days. aspirin 81 2021- No [id number] 81mg Take 1 Univers mg chewable 02-20 tablet by it y of tablet 00:00: 04:59 mouth in [place] 00 :00 the Medical morning Branch for 30 days. clopidogreL 2021- No [id number] 75mg Take 1 Univers 75 mg 02-20 tablet by ity of tablet 00:00: 04:59 mouth in [place] 00 :00 the [facility] morning Branch for 30 days. Fluticasone 2021- No [id number] 1{puff} Inhale 1 Univers -Salmeterol 02-20 Puff every i ty of 100-50 00:00: 04:59 12 [place] mcg/dose 00 :00 (twelve) Medical inhalation hours for Bran ch disk 30 days. rosuvastati No [id number] 20mg Take 1 Univers n 20 mg 02-20 tablet by ity of tablet 00:00: 04:59 mouth at [place] 00 :00 bedtime Medical for 30 Branch [...]
Durat ion of therapy: 5 days clopidogreL 2021-2021- No 75mg 75 mg, Uni vers (PLAVIX) 75 02-19 Oral, ity of mg tablet 14:00: 23:44 DAILY, [place] 75 mg 00 :08 First dose Medical on Tue Branch 02/19/22 at 0900, Until Discontinu ed, Routine clopidogreL 2021-0 202- No 75mg 75 mg, Uni vers (PLAVIX) 75 02-19 Oral, ity of mg tablet 14:00: 23:44 DAILY, [place] 75 mg 00 :08 First dose Medical on Tue Branch 02/19/22 at 0900, Until Discontinu ed, Routine lisinopriL 2021-2021- No 10mg 10 mg, [facility] [place] [facility] ers (PRINIVIL,Z 02-19 Oral, QHS, i ty of ESTRIL) 02:00: 23:44 First dose [place] as tablet 10 00 :08 on [place] [facility] mg 02/18/22 at Branch 2100, Until Discontinu ed, Routine lisinopriL 2021-0 2021- No 10mg 10 mg, [facility] [place] [facility] ers (PRINIVIL,Z 02-19 Oral, QHS, i ty of ESTRIL) 02:00: 23:44 First dose [place] as tablet 10 00 :08 on [place] [facility] mg 02/18/22 at Branch 2100, Until Discontinu ed, Routine methylPREDN 2021- No 40mg 40 mg, Uni vers ISolone sod 02-18 Intravenou i ty of succ 16:30: 23:44 s, Q12H, [place] (SOLU-MEDRO 00 :08 First dose Me dical L (PF)) on [place] Branch injection 02/18/22 at 40 mg 1130, Until Discontinu ed, 1 mL methylPREDN 0 2021- No 40mg 40 mg, Uni vers ISolone sod 02-18 Intravenou i ty of succ 16:30: 23:44 s, Q12H, [place] (SOLU-MEDRO 00 :08 First dose Me dical L (PF)) on [place] Branch injection 02/18/22 at 40 mg 1130, Until Discontinu ed, 1 mL Fluticasone 2021- No 1{puff} 1 Puff, Univers -Salmeterol 02-18 Inhalation i ty of (ADVAIR) 15:30: 23:44 , Q12H, [place] [id number] 00 :08 First dose Medical mcg/dose on [place] Branch inhalation 02/18/22 at disk 1 Puff 1030, Until Discontinu ed, Routine Fluticasone 2021- No 1{puff} 1 Puff, Univers -Salmeterol 02-18 Inhalation i ty of (ADVAIR) 15:30: 23:44 , Q12H, [place] 100-50 00 :08 First dose Medical mcg/dose on [place] Branch inhalation 02/18/22 at disk 1 Puff 1030, Until Discontinu ed, Routine heparin 2021- No 5000U 5,000 Univers (porcine) 02-18- Units, ity of injection 01:00: 23:44 Subcutaneo [place] 5,000 Units 00 :08 us, BID, Medi south First dose Branch on Tue02/17/22 at 2000, Until Discontinu ed, Routine heparin 2021- No 5000U 5,000 Univers (porcine) 02-18- Units, ity of injection 01:00: 23:44 Subcutaneo [...] as 37 :15 on Tue02/17/22 at Branch [facility], Until Tue02/17/22 at 1048, Routine, CV Intraproce [...] dose [place] XL) tablet 00 :08 on [facility] Medical 25 mg 02/16/22 at Branch 1045, Until Discontinu ed, Routine metoprolol 2021- No 25mg 25 mg, Univ ers succinate 02-16 Oral, BID, ity of XL (TOPROL 15:45: 23:44 First dose [place] XL) tablet 00 :08 on [facility] Medical 25 mg 02/16/22 at Branch [...] ity of Insulin-Reg 02:00: 23:44 First dose [place] ular + Fsbg 00 :08 on [facility] Medica l Testing 02/14/22 at Branch 2100, Until Discontinu ed, Routine glucagon No 1mg 1 mg, Univers (GLUCAGEN 02-14 Intramuscu ity of DIAGNOSTIC 23:37: 23:44 lar, PRN, [place] KIT) 33 :08 Starting Medical injection 1 on [facility] mg 02/14/22 at 1837, Until 02/20/22 at 1844, MAKENNA, Blood Glucose < or = 70 mg/dL and patient is unable to swallow or has mental changes. dextrose 50 2021- No 25mL 25 mL, Uni vers % in water 02-14 Slow IV ity o f (D50W) 23:37: 23:44 Push, PRN, [place] injection 33 :08 Starting Medica l 25 mL on [facility] 02/14/22 at 1837, Until 02/20/22 at 1844, MAKENNA, Blood Glucose < or = 70 mg/dL and patient is unable to swallow or has mental status changes. glucagon 2021- No 1mg 1 mg, Univers (GLUCAGEN 02-14 Intramuscu ity of DIAGNOSTIC 23:37: 23:44 lar, PRN, [place] KIT) 33 :08 Starting Medical injection 1 on [facility] mg 02/14/22 at 1837, Until 02/20/22 at 1844, MAKENNA, Blood Glucose < or = 70 mg/dL and patient is unable to swallow or has mental changes. dextrose 50 2021- No 25mL 25 mL, Uni vers % in water 02-14 Slow IV ity o f (D50W) 23:37: 23:44 Push, PRN, [place] injection 33 :08 Starting Medica l 25 mL on [facility] 02/14/22 at 1837, Until 02/20/22 at 1844, [...] mouth Medic al GG, 00 :00 daily. [facility] 10 billion cell capsule lactobacill 2022- No 1{capsu QD Take [address] [facility] us 5-20 05-20 le} capsule by [facility] rhamnosus, 00:00: 23:59 mouth Medic al GG, 00 :00 daily. [facility] 10 billion cell capsule lactobacill 2022- No 1{capsu QD Take [address] [facility] us 5-20 05-20 le} capsule by [facility] rhamnosus, 00:00: 23:59 mouth Medic al GG, 00 :00 daily. [employer] (CULTUREE ) 10 billion cell capsule lactobacill 2022- No 1{capsu QD Take [address] [facility] us 5-20 05-20 le} capsule by [facility] rhamnosus, 00:00: 23:59 mouth Medic al GG, 00 :00 daily. [employer] (CULTUREE ) 10 billion cell capsule lactobacill 2022- No 1{capsu QD Take [address] [facility] us 5-20 05-20 le} capsule by [facility] rhamnosus, 00:00: 23:59 mouth Medic al GG, 00 :00 daily. [facility] 10 billion cell capsule lactobacill 2022- No 1{capsu QD Take [address] [facility] us 5-20 05-20 le} capsule by [facility] rhamnosus, 00:00: 23:59 mouth Medic al GG, 00 :00 daily. [employer] (CULTUREE ) 10 billion cell capsule lactobacill 2022- No 1{capsu QD Take [address] [facility] us 5-20 05-20 le} capsule by [facility] rhamnosus, 00:00: 23:59 mouth Medic al GG, 00 :00 daily. [employer] (CULTUREE ) 10 billion cell capsule lactobacill 2022- No 1{capsu QD Take [address] [facility] us 5-20 05-20 le} capsule by [facility] rhamnosus, 00:00: 23:59 mouth Medic al GG, 00 :00 daily. [employer] (CULTUREE ) 10 billion cell capsule amLODIPine 2021- [...] 20:45: daily. Medic al MG tablet 02 [employer] carvediloL 0 Yes 6.25mg Take 6.[address] [facility] (COREG) 5-19 mg by [facility] 6.25 MG 20:45: mouth 2 Medical tablet 02 (two) Center times daily with breakfast and dinner. lisinopriL 2021-0 Yes 40mg QD Take [address] (PRINIVIL,Z 5-19 by mouth Luke s ESTRIL) 40 20:45: daily. Medic al MG tablet 02 [employer] carvediloL 0 Yes 6.25mg Take 6.25 CH[facility] [...] 20:45: daily. Medic al MG tablet 02 [employer] carvediloL 0 Yes 6.25mg Take 6.[address] (COREG) 5-19 mg by [facility] 6.25 MG 20:45: mouth 2 Medical tablet 02 (two) Center times daily with breakfast and dinner. lisinopriL 2021-0 Yes 40mg QD Take [address] (PRINIVIL,Z 5-19 by mouth Luke s ESTRIL) 40 20:45: daily. Medic al MG tablet 02 [employer] carvediloL 0 Yes 6.25mg Take 6.[address] (COREG) 5-19 mg by [facility] 6.25 MG 20:45: mouth 2 Medical tablet 02 (two) Center times daily with breakfast and dinner. lisinopriL 2021-0 Yes 40mg QD Take [address] (PRINIVIL,Z 5-19 by mouth Luke s ESTRIL) 40 20:45: daily. Medic al MG tablet 02 [employer] carvediloL 0 Yes 6.25mg Take 6.[address] (COREG) 5-19 mg by [facility] 6.25 MG 20:45: mouth 2 Medical tablet 02 (two) Center times daily with breakfast and dinner. lisinopriL 2021-0 Yes 40mg QD Take [address] (PRINIVIL,Z 5-19 by mouth Luke s ESTRIL) 40 20:45: daily. Medic al MG tablet 02 [employer] carvediloL Yes 6.25mg Take 6.[address] [facility] [...] mg [facility] (NORVASC) 5 11-12 by mouth Sally es MG tablet 16:04: [...] [address] -albuteroL 11-1214 by Luelsy ([employer]) 00:00: 23:59 nebulizati M edical 0.5 mg-3 [...] mLs [facility] -albuteroL 11-1214 by [facility] ([employer]) 00:00: 23:59 nebulizati M edical 0.5 mg-3 00 :00 on every 6 Cente r mg(2.5 mg (six) base)/3 mL hours as nebulizer needed for solution Wheezing for up to 360 days. acetaminoph 2022- No 650mg Take [address] en -12 11-14 tablets [facility] (TYLENOL) 00:00: 23:59 (650 mg Medi south 325 MG 00 :00 total) by Center tablet mouth every 6 (six) hours as needed for up to 360 days. ipratropium 2021-0 2023- No 3mL Take [address] -albuteroL 5- 05-14 by [facility] (Shopo) 00:00: 23:59 nebulizati M edical 0.5 mg-3 [...] [facility] -albuteroL 5- 05-14 by [facility] (Shopo) 00:00: 23:59 nebulizati M edical 0.5 mg-3 [...] [facility] -albuteroL 11-12 05-14 by [facility] ([employer]) 00:00: 23:59 nebulizati M edical 0.5 mg-3 [...] [facility] -albuteroL 11-12 05-14 by [facility] ([employer]) 00:00: 23:59 nebulizati M edical 0.5 mg-3 [...] [address] -albuteroL 11-12-14 by [email or web address] ([employer]) 00:00: 23:59 nebulizati M edical 0.5 mg-3 [...] mLs [facility] -albuteroL 11-12 05-14 by [email or web address] ([employer]) 00:00: 23:59 nebulizati M edical 0.5 mg-3 [...] times daily for 90 days. apixaban 2-0 2022- No 5mg Q.5D Take [address] [facility] (ELIQUIS) 5 5-19 08-17 tablet (5 Romero kes mg Tab 00:00: 23:59 mg total) Medic al tablet 00 :00 by mouth 2 Center (two) times daily for 90 days. bumetanide 2-0 2- No 1mg Take [address] [facility] [...] (two) times daily for 30 days. predniSONE [id number] No Take [address] [facility] (DELTASONE) 5- [...] 2021- No Take [address] [facility] (DELTASONE) 5-31 [...] predniSONE No Take [address] [facility] (DELTASONE) 5- [...] No Take [address] [facility] (DELTASONE) 11-12 05-31 tablets Luke s 10 MG 00:00: [...] every 4 Medical (ROBITUSSIN 00 :00 (four) [employer] -) 10-100 hours as mg/5 mL needed for liquid up to 10 days. dextrometho 2021-0 2021- No 5mL Take [address] rphan-guaif 11-12 by mouth Sally es enesin 00:00: 23:59 every 4 Medical (ROBITUSSIN 00 :00 (four) [employer] -) 10-100 hours as mg/5 mL needed for liquid up to 10 days. dextrometho 2021-0 2021- No 5mL Take [address] rphan-guaif 11-12 by mouth Sally es enesin 00:00: 23:59 every 4 Medical (ROBITUSSIN 00 :00 (four) [employer] -) 10-100 hours as mg/5 mL needed for liquid up to 10 days. dextrometho 2021-0 2- No 5mL Take [address] rphan-guaif 11-12- by mouth Sally es enesin 00:00: 23:59 every 4 Medical (ROBITUSSIN 00 :00 (four) [employer] -) 10-100 hours as mg/5 mL needed [...] 5mL Take [address] rphan-guaif 5- 05-29 by mouth Sally es enesin 00:00: [...] daily for 3 days. lisinopriL 2021-0 Yes [id number] 10mg Take 1 Univers 10 mg 4-17 tablet by ity of tablet 00:00: mouth at [place] [address] bedtime. Medical Branch metoprolol 2021-0 Yes [id number] 25mg Take 1 Univers tartrate 25 4-17 tablet by ity of mg tablet 00:00: mouth 2 (two) Medical times Branch daily. lisinopriL 2021-0 Yes [id number] 10mg Take 1 Univers 10 mg 4-17 tablet by ity of tablet 00:00: mouth at [place] [address] bedtime. Medical Branch metoprolol 2021-0 Yes [id number] 25mg Take 1 Univers tartrate 25 4-17 tablet by ity of mg tablet 00:00: mouth 2 [place] ([facility]) Medical times Branch daily. lisinopriL 2021-0 Yes [id number] 10mg Take 1 Univers 10 mg 4-17 tablet by ity of tablet 00:00: mouth at [place] [address] bedtime. Medical Branch metoprolol 2021-0 Yes [id number] 25mg Take 1 Univers tartrate 25 4-17 tablet by ity of mg tablet 00:00: mouth 2 (two) Medical times Branch daily. lisinopriL 2021-0 Yes [id number] 10mg Take 1 Univers 10 mg 4-17 tablet by ity of tablet 00:00: mouth at [place] [address] bedtime. Medical Branch metoprolol 2021-0 Yes [id number] 25mg Take 1 Univers tartrate 25 4-17 tablet by ity of mg tablet 00:00: mouth 2 (two) Medical times Branch daily. lisinopriL 2022-0 Yes [id number] 10mg Take 1 Univers 10 mg 4-17 tablet by ity of tablet 00:00: mouth at [place] [address] bedtime. Medical Branch metoprolol Yes [id number] 25mg Take 1 Univers tartrate 25 4-17 tablet by ity of mg tablet 00:00: mouth 2 [place] (two) Medical times Branch daily. lisinopriL Yes [id number] 10mg Take 1 Univers 10 mg 4-17 tablet by ity of tablet 00:00: mouth at [place] [address] bedtime. Medical Branch metoprolol Yes [id number] 25mg Take 1 Univers tartrate 25 4-17 tablet by ity of mg tablet 00:00: mouth 2 [place] (two) Medical times Branch daily. lisinopriL Yes [id number] 10mg Take 1 Univers 10 mg 4-17 tablet by ity of tablet 00:00: mouth at [place] [address] bedtime. Medical Branch metoprolol Yes [id number] 25mg Take 1 Univers tartrate 25 4-17 tablet by ity of mg tablet 00:00: mouth 2 [place] (two) Medical times Branch daily. lisinopriL Yes [id number] 10mg Take 1 Univers 10 mg 4-17 tablet by ity of tablet 00:00: mouth at [place] [address] bedtime. Medical Branch metoprolol Yes [id number] 25mg Take 1 Univers tartrate 25 4-17 tablet by ity of mg tablet 00:00: mouth 2 [place] (two) Medical times Branch daily. Spiriva Spiriva 2019-06 Yes SULEMA INHALE TWO [facility] Respimat Respimat 0-12 [place] (2) PUFFS Physici 2.5 MCG/ACT 2.5 MCG/ACT [...] Comments Source Systolic blood 2022-02-17 115 mm[Hg] [facility] pressure 14:38:59 [facility] Diastolic blood 2022-02-17 71 mm[Hg] [facility] f pressure 14:38:59 [facility] Respiratory rate 2022-02-17 20 /min [facility] 14:38:59 [facility] Oxygen saturation 2022-02-17 100 /min [facility] in Arterial blood 14:38:59 [facility] Pulse oximetry Francis Heart rate 2022-02-17 76 /min [facility] 11:00:00 [facility] Body temperature 2022-02-17 36.44 Leni [facility] 09:00:00 [facility] Body height 2022-02-14 182.9 cm [facility] 22:40:00 [facility] Body weight 2022-02-14 83.6 kg [facility] 22:40:00 [facility] BMI 2022-02-14 25.00 kg/m2 [facility] 22:40:00 [facility] WEIGHT 2021-11-11 81.5 kg 04:18:00 [...] 2021-11-12 60 /min [facility] 19:40:00 [facility] Respiratory rate 2021-11-12 18 /min [facility] 19[facility]00 [facility] Center Oxygen saturation 2021-11-12 99 /min [facility] in Arterial blood 19:40:00 Medical nter by Pulse oximetry Systolic blood 2021-11-12 137 mm[Hg] [facility] pressure 16:00:00 Medical Center Diastolic blood 2021-11-12 83 mm[Hg] [facility] pressure 16:00:00 [facility] Body temperature 2021-11-[address] [facility] 16:00:00 [facility] Center Body weight 2021-11-[address] [facility] 04:18:00 [facility] Center BMI 2021-11-11 24.37 kg/m2 [facility] 04:18:00 [facility] Body height 2021-11-[address] [facility] 04:48:00 [facility] Center Systolic blood 2020-04-16 141 mm[Hg] [place] [facility] pressure 07:34:00 Position: Sitting Diastolic blood 2020-04-16 60 mm[Hg] Location: [place] [facility] 07:34:00 Position: Sitting Weight [...] Non-Rebreather Systolic blood 2020-04-07 137 mm[Hg] Location: [place] [facility] pressure 14:12:00 Position: Sitting Diastolic blood 2020-04-07 74 mm[Hg] Location: [place] [facility] pressure 14:12:00 Position: Sitting Body [...] Performed AUTHORIZATION FOR RELEASE 2022-10-05 05:01:00 Doctor Cynthia, [facility] [place] [facility] ASSIGNMENT OF BENEFITS 2022-03-31 22:21:39 Doctor Cynthia [facility] [place] [facility] AUTHORIZATION FOR RELEASE 2022-03-02 05:01:00 Doctor Cynthia [facility] [place] [facility] AUTHORIZATION FOR RELEASE 2022-02-26 05:01:00 Doctor Cynthia, [facility] [place] [facility] AUTHORIZATION FOR RELEASE 2022-02-22 05:01:00 Doctor Cynthia, [facility] Name Medical [facility] POCT GLUCOSE (AUTOMATED) 2022-02-20 18:39:00 Carmelo Hodgson [facility] POCT GLUCOSE (AUTOMATED) 2022-02-20 14:45:00 Carmelo Hodgson [facility] BASIC METABOLIC PANEL (NA, 2022-02-20 10:00:00 Arcelia Tellez [facility] K, CL, CO2, GLUCOSE, BUN, Medica l Branch CREATININE, CA) EMERGENCY SERVICES 2022-02-20 05:01:00 Doctor Cynthia, [facility] AGREEMENTS AND [place] [facility] AUTHORIZATIONS BASIC METABOLIC PANEL (NA, 2022-02-20 01:23:00 Juan Lott [facility] K, CL, CO2, GLUCOSE, BUN, Medica l Branch CREATININE, CA) POCT GLUCOSE (AUTOMATED) 2022-02-20 01:01:00 Corwin Walden [facility] POCT GLUCOSE (AUTOMATED) 2022-02-19 22:27:00 Iram Corwin Estrada [facility] BASIC METABOLIC PANEL (NA, 2022-02-19 18:07:00 Juan Lott [facility] K, CL, CO2, GLUCOSE, BUN, Medica l Branch CREATININE, CA) POCT GLUCOSE (AUTOMATED) 2022-02-19 16:22:00 Iram Corwin Estrada [facility] POCT GLUCOSE (AUTOMATED) 2022-02-19 13:14:00 Corwin Walden [facility] BASIC METABOLIC PANEL (NA, 2022-02-19 13:12:00 Jagdeep Fagan [facility] K, CL, CO2, GLUCOSE, BUN, Medica l Branch CREATININE, CA) MAGNESIUM 2022-02-19 09:17:00 Asad [facility] BASIC METABOLIC PANEL (NA, 2022-02-19 09:17:00 Asad [facility] K, CL, CO2, GLUCOSE, BUN, Medica l Branch CREATININE, CA) CBC WITHOUT DIFF 2022-02-19 09:17:00 Asad [facility] POCT GLUCOSE (AUTOMATED) 2022-02-19 01:13:00 Iram Corwin [facility] POCT GLUCOSE (AUTOMATED) 2022-02-18 21:58:00 Iram Corwin [facility] PROCALCITONIN 2022-02-18 19:50:00 Kellie Puentes o [facility] POCT GLUCOSE (AUTOMATED) 2022-02-18 17:30:00 Corwin Walden [facility] CT THORAX WO CONTRAST 2022-02-18 17:14:31 [facility]OMATED) 2022-02-18 12:57:00 Corwin Walden [facility] BASIC METABOLIC PANEL (NA, 2022-02-18 08:43:00 Arcelia Tellez [facility] K, CL, CO2, GLUCOSE, BUN, Medica l Branch CREATININE, CA) CBC WITH DIFF 2022-02-18 08:43:00 Brandie Mckeon [facility] PROCALCITONIN 2022-02-18 08:43:00 Carmelo Hodgson [facility] POCT GLUCOSE (AUTOMATED) 2022-02-18 01:14:00 Corwin Walden [facility] POCT GLUCOSE (AUTOMATED) 2022-02-17 21:44:00 Corwin Walden [facility] CARDIAC CATHETERIZATION 2022-02-17 15:20:00 Alexa [facility] CARDIAC CATHETERIZATION 2022-02-17 15:20:00 Alexa [facility] CATH PROCEDURE LOG 2022-02-17 15:04:23 Alexa [facility] POCT GLUCOSE (AUTOMATED) 2022-02-17 12:58:00 Corwin Walden [facility] ACTIVATED PARTIAL THRMPLAS 2022-02-17 12:53:00 Jagdeep Fagan [facility] MAGNESIUM 2022-02-17 09:01:00 Hao Contreras [facility] BASIC METABOLIC PANEL (NA, 2022-02-17 09:01:00 Hao Contreras [facility] K, CL, CO2, GLUCOSE, BUN, Medica l Branch CREATININE, CA) CBC WITH DIFF 2022-02-17 09:01:00 [facility] (AUTOMATED) 2022-02-17 01:00:00 Corwin Walden [facility] BASIC METABOLIC PANEL (NA, 2022-02-17 00:57:00 Juan Lott [facility] K, CL, CO2, GLUCOSE, BUN, Medica l Branch CREATININE, CA) ACTIVATED PARTIAL THRMPLAS 2022-02-17 00:57:00 Brandie Mckeon [facility] POCT GLUCOSE (AUTOMATED) 2022-02-16 21:27:00 Corwin Walden [facility] TROPONIN I 2022-02-16 18:09:00 Michael Lott [facility] BASIC METABOLIC PANEL (NA, 2022-02-16 18:09:00 Juan Lott [facility] K, CL, CO2, GLUCOSE, BUN, Medica l Branch CREATININE, CA) POCT GLUCOSE (AUTOMATED) 2022-02-16 16:33:00 Corwin Walden [facility] MISCELLANEOUS CULTURE 2022-02-16 13:52:00 Michael Lott [facility] ACTIVATED PARTIAL THRMPLAS 2022-02-16 13:18:00 Osbaldo Aguiar [facility] POCT GLUCOSE (AUTOMATED) 2022-02-16 13:15:00 Corwin Walden [facility] PHOSPHORUS 2022-02-16 06:37:00 Michael Lott [facility] MAGNESIUM 2022-02-16 06:37:00 Kaylie [facility] TROPONIN I 2022-02-16 06:37:00 Kaylie [facility] BASIC METABOLIC PANEL (NA, 2022-02-16 06:37:00 Brandie Mckeon [facility] K, CL, CO2, GLUCOSE, BUN, Medica l Branch CREATININE, CA) CBC WITH DIFF 2022-02-16 06:37:00 Brandie Mckeon [facility] ACTIVATED PARTIAL THRMPLAS 2022-02-16 06:37:00 Brandie Mckeon [facility] POCT GLUCOSE (AUTOMATED) 2022-02-16 01:06:00 Corwin Walden [facility] PHOSPHORUS 2022-02-15 23:35:00 Michael Lott [facility] MAGNESIUM 2022-02-15 23:35:00 Kaylie [facility] TROPONIN I 2022-02-15 23:35:00 Jagdeep Fagan [facility] BASIC METABOLIC PANEL (NA, 2022-02-15 23:35:00 Corwin Walden [facility] K, CL, CO2, GLUCOSE, BUN, Medica l Branch CREATININE, CA) ACTIVATED PARTIAL THRMPLAS 2022-02-15 23:35:00 Osbaldo Aguiar [facility] POCT GLUCOSE (AUTOMATED) 2022-02-15 23:07:00 Corwin Walden [facility] ACTIVATED PARTIAL THRMPLAS 2022-02-15 17:03:00 Juan Lott [facility] BLOOD CULTURE SCREEN 2022-02-15 16:58:00 Chaparro Lottradha [facility] PHOSPHORUS 2022-02-15 16:58:00 Kaylie [facility] MAGNESIUM 2022-02-15 16:58:00 Kaylie [facility] TROPONIN I 2022-02-15 16:58:00 Kaylie [facility] BASIC METABOLIC PANEL (NA, 2022-02-15 16:58:00 Corwin Walden [facility] K, CL, CO2, GLUCOSE, BUN, Medica l Branch CREATININE, CA) POCT GLUCOSE (AUTOMATED) 2022-02-15 16:41:00 Corwin Walden [facility] TRANSTHORACIC ECHO (TTE) 2022-02-15 13:26:00 Corwin Walden [facility] W/ CONTRAST Medical Bran ch POCT GLUCOSE (AUTOMATED) 2022-02-15 13:04:00 Corwin Walden [facility] TROPONIN I 2022-02-15 11:04:00 Kamaljit Astorga [facility] PROCALCITONIN 2022-02-15 11:04:00 Chaparro Lottradha [facility] MAGNESIUM 2022-02-15 10:14:00 Corwin Walden [facility] BASIC METABOLIC PANEL (NA, 2022-02-15 10:14:00 Corwin Walden [facility] K, CL, CO2, GLUCOSE, BUN, Medica l Branch CREATININE, CA) CBC WITHOUT DIFF 2022-02-15 10:14:00 Corwin Walden [facility] ACTIVATED PARTIAL THRMPLAS 2022-02-15 10:14:00 Kamaljit Astorga [facility] ACTIVATED PARTIAL THRMPLAS 2022-02-15 03:55:00 Kamaljit Astorga [facility] POCT GLUCOSE (AUTOMATED) 2022-02-15 02:36:00 Corwin Walden [facility] MRSA / MSSA SCREEN BY PCR, 2022-02-15 02:28:00 Corwin Walden [facility] NARES [facility] XR CHEST 1 VW 2022-02-15 00:53:48 Iram [facility] TROPONIN I 2022-02-15 00:48:00 Corwin Walden [facility] BASIC METABOLIC PANEL (NA, 2022-02-15 00:48:00 Corwin Walden [facility] K, CL, CO2, GLUCOSE, BUN, Medica l Branch CREATININE, CA) LACTIC ACID WHOLE BLOOD 2022-02-15 00:48:00 Corwin Walden [facility] EKG-12 LEAD 2022-02-14 22:40:56 Osbaldo Aguiar [facility] CRITICAL CARE 2022-02-14 22:10:00 Osbaldo Aguiar [facility] AC PANEL 20 + LACTIC ACID 2022-02-14 21:25:00 Osbaldo Aguiar [facility] ACTIVATED PARTIAL THRMPLAS 2022-02-14 20:54:00 Osbaldo Aguiar [facility] BLOOD CULTURE SCREEN 2022-02-14 20:53:00 Osbaldo Aguiar [facility] BLOOD CULTURE WORKUP 2022-02-14 20:53:00 Osbaldo Aguiar [facility] GRAM POSITIVE BLOOD 2022-02-14 20:53:00 Osbaldo [facility] PROBE-AEROBIC AC PANEL 20 + LACTIC ACID 2022-02-14 20:23:00 Osbaldo Aguiar [facility] HB ECG ROUTINE & RHYTHM 2022-02-14 20:16:55 Osbaldo Aguiar [facility] XR CHEST 1 VW 2022-02-14 20:08:00 Osbaldo Aguiar [facility] MAGNESIUM 2022-02-14 20:01:00 Osbaldo Aguiar [facility] TROPONIN I 2022-02-14 20:01:00 Osbaldo Aguiar [facility] COMP. METABOLIC PANEL 2022-02-14 20:01:00 Osbaldo Aguiar [facility] ([id number]) Medical Branch CBC WITH DIFF 2022-02-14 20:01:00 Osbaldo Aguiar [facility] PROTHROMBIN TIME / INR 2022-02-14 20:01:00 Osbaldo Aguiar [facility] N-TERMINAL PRO-BNP 2022-02-14 20:01:00 Osbaldo Aguiar [facility] COVID-19 (ID NOW RAPID 2022-02-14 20:01:00 Osbaldo Aguiar [facility] TESTING) Medical Branch LAB ONLY COVID 2022-02-14 20:01:00 Osbaldo Aguiar [facility] CONSENT/REFUSAL FOR 2022-02-14 19:55:28 Doctor Unassigned, [facility] DIAGNOSIS AND TREATMENT [place] [facility] EXTERNAL PROVIDER RECORDS 2022-02-14 05:01:00 Doctor Unassigned, [facility] Name [facility] HOSPITAL ADMISSION 2022-02-14 05:01:00 Doctor Unassigned, [facility] POCT-GLUCOSE METER 2021-11-12 15:41:00 [facility] POCT-GLUCOSE METER 2021-11-12 11:18:00 [facility] POCT-GLUCOSE METER 2021-11-12 06:33:00 [facility] CBC W/PLT COUNT & AUTO 2021-11-12 04:33:00 Ness Smith [facility] BASIC METABOLIC PANEL 2021-11-12 04:33:00 Ness Smith [facility] MAGNESIUM 2021-11-12 04:33:00 Ness Smith [facility] CBC W/PLT COUNT & AUTO 2021-11-12 04:33:00 Ness Smith [facility] POCT-GLUCOSE METER 2021-11-11 21:38:00 [facility] POCT-GLUCOSE METER 2021-11-11 16:31:00 [facility] POCT-GLUCOSE METER 2021-11-11 11:33:00 [facility] NM MYOCARDIAL PERFUSION 2021-11-11 11:00:00 Bebeto [facility], PHARM Center ECG 12-LEAD 2021-11-11 09:26:30 Bebeto [facility] POCT-GLUCOSE METER 2021-11-11 06:42:00 Ness Smith [facility] XR CHEST 1 VIEW PORTABLE / 2021-11-11 05:48:00 Robb [facility] BEDSIDE [place] CBC W/PLT COUNT & AUTO 2021-11-11 04:06:00 Ness Smith [facility] BASIC METABOLIC PANEL 2021-11-11 04:06:00 Ness Smith [facility] MAGNESIUM 2021-11-11 04:06:00 Ness Smith [facility] CBC W/PLT COUNT & AUTO 2021-11-11 04:06:00 Ness Smith [facility] POCT-GLUCOSE METER 2021-11-10 20:48:00 Ness Smith [facility] POCT-GLUCOSE METER 2021-11-10 15:39:00 SarahNess [facility] POCT-GLUCOSE METER 2021-11-10 11:33:00 Ness Smith [facility] BASIC METABOLIC PANEL 2021-11-10 06:58:00 Cheri [facility] HEPATIC FUNCTION PANEL 2021-11-10 06:58:00 [facility] W/[facility]T COUNT & AUTO 2021-11-10 06:58[facility]00 [facility] CBC W/PLT COUNT & AUTO 2021-11-10 06:58[facility] PO[facility]SE METER 2021-11-10 06:54:00 Ness Smith [facility] POCT-GLUCOSE METER 2021-11-09 21:49:00 Ness Smith [facility] POCT-GLUCOSE METER 2021-11-09 16:10:00 Ness Smith [facility] POCT-GLUCOSE METER 2021-11-09 12:19:00 Ness Smith [facility] VENOUS DOPPLER LEGS 2021-11-09 10:33:00 Velma Bustamante [facility] XR CHEST 1 VIEW PORTABLE / 2021-11-09 07:32:00 Velma [facility] POCT-GLUCOSE METER 2021-11-09 07:22:00 Ness Smith [facility] BASIC METABOLIC PANEL 2021-11-09 04:06:00 Cheri, [facility] HEPATIC FUNCTION PANEL 2021-11-09 04:06:[address] [facility] CBC W/PLT COUNT & AUTO 2021-11-09 04:06:00 [facility] HC LAB HIV-1 AG W/HIV-1&2 2021-11-09 04:06:00 Hubert dominic [facility] AB [facility] HEPATITIS PANEL, ACUTE 2021-11-09 04:06:00 Hector [facility] HEMOGLOBIN A1C 2021-11-09 04:06:[address] [facility] APTT 2021-11-09 04:06:00 Cheri [facility] CBC W/PLT COUNT & AUTO 2021-11-09 04:06:00 Cheri [facility] DIFFERENTIAL [facility] TROPONIN I 2021-11-09 00:21:00 [facility] 12-LEAD 2021-11-08 21:26:59 Unknown, Hl7 Doctor [facility] POCT-GLUCOSE METER 2021-11-08 20:43:00 Ness Smith [facility] APTT 2021-11-08 19:42:00 Cheri [facility] TROPONIN I 2021-11-08 16:28:00 Cheri [facility] GLUCOSE 2021-11-08 16:27:00 Ness Smith [facility] SPUTUM CULTURE + GRAM 2021-11-08 15:33:00 Guera Yarbrough [facility] US RENAL COMPLETE 2021-11-08 12:14:00 Cheri [facility] POCT-GLUCOSE METER 2021-11-08 11:32:00 Ness Smith [facility] APTT 2021-11-08 11:22:00 Cheri [facility] TROPONIN I 2021-11-08 11:22:00 Cheri [facility] BASIC METABOLIC PANEL 2021-11-08 11:22:00 Chester Jarvis [facility] 2D ECHO W/ DOPPLER 2021-11-08 10:36:38 [facility] CT CHEST WITHOUT IV 2021-11-08 09:34:00 Cheri [facility] CONTRAST [facility] NM LUNG PERFUSION SCAN 2021-11-08 09:20:[address] [facility] XR CHEST 1 VIEW PORTABLE / 2021-11-08 08:23:[address] [facility] BEDSIDE Center APTT 2021-11-08 05:53:00 [facility] LACTIC ACID, VENOUS 2021-11-08 05:07:00 [facility], URINE 2021-11-08 04:17:00 Cheri [facility] URINALYSIS WITH 2021-11-08 04:16:00 Cheri [facility] MICROSCOPIC IF INDICATED [facility] URINALYSIS MICROSCOPIC 2021-11-08 04:16:00 [facility]IN [facility] 2021-11-08 04:07:00 [facility] BLOOD CULTURE 2021-11-08 04:02:00 Cheri, [facility] POCT-GLUCOSE METER 2021-11-08 04:00:00 [facility]IN 2021-11-08 03:59:00 Cheri [facility] BASIC METABOLIC PANEL 2021-11-08 03:58:00 Cheri, [facility] HEPATIC FUNCTION PANEL 2021-11-08 03:58:00 Cheri, [facility] HEMOGLOBIN A1C 2021-11-08 03:58:00 Cheri, [facility] PROTHROMBIN TIME/INR 2021-11-08 03:58:00 Cheri [facility] MAGNESIUM 2021-11-08 03:58:00 Cheri, [facility] PHOSPHORUS 2021-11-08 03:58:00 Cheri, [facility] CBC W/PLT COUNT & AUTO 2021-11-08 03:58:00 [facility] B-TYPE NATRIURETIC FACTOR 2021-11-08 03:58:00 [facility] D-DIMER 2021-11-08 03:58:00 [facility] CBC W/PLT COUNT & AUTO 2021-11-08 03:58:00 Cheri [facility] DIFFERENTIAL [facility] ECG 12-LEAD 2021-11-08 03:52:58 Cheri, [facility] XR CHEST 1 VIEW PORTABLE / 2021-11-08 03:47:[address] [facility] BEDSIDE [facility] XR ABDOMEN/KUB 1 VIEW 2021-11-08 03:47:00 Cheri Jen [facility] BLOOD GAS, ARTERIAL 2021-11-08 03:29:00 Cheri Jen [facility] EKG-SCANNED 2021-11-08 00:00:00 Provider, Claude [facility] PET CT Lung solitary pulm 2020-04-07 00:00:00 [facility]ule [id number] Plan of Care Planned Activity Planned Date Details Comments Source Future Scheduled 2023-02-[address] [facility] Test 00:00:00 (Season Ended) [code = [facility] INFLUENZA VACCINE (Season Ended)] Future Scheduled 2023-02-[address] [facility] Test 00:00:00 (Season Ended) [code = [facility] INFLUENZA VACCINE (Season Ended)] Future Scheduled 2022-11-10 [...] [facility] Pending 00:00:00 pulm nodule [id number] [code = 27058] Diagnostic Test 2020-04-[address] Lung solitary [facility] Pending 00:00:00 pulm nodule [id number] [code = 83830] Future Scheduled [address] [facility] Test 00:00:00 aneurysm screening Medical C enter (procedure) [code = 750491074] Future Scheduled [address] [facility] Test 00:00:00 aneurysm screening Medical C enter (procedure) [code = 176621598] Future Scheduled [address] [facility] Test 00:00:00 aneurysm screening Medical C enter (procedure) [code = 513227100] Future Scheduled [address] [facility] Test 00:00:00 aneurysm screening Medical C enter (procedure) [code = 527121173] Future Scheduled [address] [facility] Test 00:00:00 aneurysm screening Medical C enter (procedure) [code = 016143593] Future Scheduled [address] [facility] Test 00:00:00 aneurysm screening Medical C enter (procedure) [code = 115151374] Future Scheduled 2002 SHINGLES VACCINES (1 [facility] [...] [facility] l Center colon (procedure) [code = 504226753] Future Scheduled [address] [facility] 00:00:00 malignant neoplasm of Medica [facility] Center colon (procedure) [code = 641377556] Future Scheduled [address] [facility] 00:00:00 malignant neoplasm of [facility] Center colon (procedure) [code = 398572484] Future Scheduled [address] [facility] 00:00:00 malignant neoplasm of [facility] Center colon (procedure) [code = 098334410] Future Scheduled 1952 Sigmoidoscopy [facility] Cent[facility] r Future Scheduled [address] [facility] 00:00:00 (combo) [code = CT Medical C enter Colonography (combo)] Future Scheduled [address] [facility] 00:00:00 malignant neoplasm of [facility] Center colon (procedure) [code = 487384897] Future Scheduled [address] [facility] 00:00:00 malignant neoplasm of [facility] Center colon (procedure) [code = 950404823] Future Scheduled [address] [facility] 00:00:00 malignant neoplasm of Medica [facility] Center colon (procedure) [code = 913007945] Future Scheduled [address] [facility] 00:00:00 malignant neoplasm of [facility] Center colon (procedure) [code = 403385005] Future Scheduled 1952 Sigmoidoscopy [facility] S[facility]oscopy] Medical Cent[facility] r Future Scheduled [address] [facility] 00:00:00 (combo) [code = CT Medical C enter Colonography (combo)] Future Scheduled [address] [facility] 00:00:00 malignant neoplasm of [facility] Center colon (procedure) [code = 362123649] Future Scheduled [address] [facility] 00:00:00 malignant neoplasm of [facility] Center colon (procedure) [code = 000376141] Future Scheduled [address] [facility] 00:00:00 malignant neoplasm of [facility] Center colon (procedure) [code = 541301231] Future Scheduled [address] [facility] 00:00:00 malignant neoplasm of Medica [facility] Center colon (procedure) [code = 781971250] Future Scheduled 1952 Sigmoidoscopy [facility]code [facility] Sigmoidoscopy] Medical Cente r Future Scheduled [address] [facility] 00:00:00 (combo) [code = CT Medical C enter Colonography (combo)] Future Scheduled [address] [facility] 00:00:00 malignant neoplasm of Medica l Center colon (procedure) [code = 669569807] Future Scheduled [address] [facility] 00:00:00 malignant neoplasm of Medica [facility] Center colon (procedure) [code = 116820283] Future Scheduled [address] [facility] 00:00:00 malignant neoplasm of [facility]ica [facility] Center colon (procedure) [code = 588482263] Future Scheduled [address] [facility] 00:00:00 malignant neoplasm of [facility] Center colon (procedure) [code = 863960432] Future Scheduled 1952 Sigmoidoscopy [facility]code [facility] S[facility]oscopy] Medical Cente r Future Scheduled [address] [facility] 00:00:00 (combo) [code = CT Medical C enter Colonography (combo)] Future Scheduled [address] [facility] 00:00:00 malignant neoplasm of Medica l Center colon (procedure) [code = 170296699] Future Scheduled [address] [facility] 00:00:00 malignant neoplasm of Medica l Center colon (procedure) [code = 570400597] Future Scheduled [address] [facility] 00:00:00 malignant neoplasm of Medica l Center colon (procedure) [code = 672919917] Future Scheduled [address] [facility] colon (procedure) [code = 782432662] Future Scheduled 1950 [facility] Future Scheduled [address] [facility]:00 (combo) [code = CT Medical C enter Colonography (combo)] Future Scheduled [address] [facility] 00:[facility]:00 [facility] colon (procedure) [code = 552958740] Future Scheduled [address] [facility] 00:[facility]:00 [facility] colon (procedure) [code = 577650768] Future Scheduled [address] [facility] 00:[facility]:00 [facility] colon (procedure) [code = 536622728] Future Scheduled [address] [facility] 00:[facility]:00 [facility] colon (procedure) [code = 139104082] Future Scheduled 1950 [facility]oid[facility] [address] [facility] 00:00:00 (combo) [code = CT Medical C enter Colonography (combo)] Future Scheduled [address] [facility] 00:00:00 [facility] colon (procedure) [code = 952861090] Future Scheduled [address] [facility] 00:00:00 [facility] colon (procedure) [code = 280189965] Future Scheduled [address] [facility] 00:00:00 [facility] colon (procedure) [code = 192724764] Future Scheduled [address] [facility] 00:00:00 [facility] colon (procedure) [code = 689154114] Future Scheduled 1950 Sigmoidoscopy [facility]oscopy] Medical May kaplan Future Scheduled [address] [facility] 00:00:00 (combo) [code = CT Medical C enter Colonography (combo)] Future Scheduled [address] [facility] 00:00:00 [facility] colon (procedure) [code = 350107468] Future Scheduled [address] [facility] 00:00:00 [facility] colon (procedure) [code = 962479953] Future Scheduled [address] [facility] 00:00:00 [facility] colon (procedure) [code = 576908808] Future Scheduled [address] [facility] 00:00:00 [facility] colon (procedure) [code = 847661775] Future Scheduled 1950 [facility]igmoid[facility]oscopy] Medical May r Encounters Start End Encounter Admission Attending Care Care Encounter Source Date/Time Date/Time Type Type Clinicians Facility Department ID 2022-12-02 Inpatient UR JOSE R CORADO [facility] [id number] [facility] 13:13:18 2022-11-28 2022-12-02 [facility] [id number] [facility] 16:26:00 19:13:00 RICKIE 2022-11-29 2022-11-29 Outpatient UR SOFI [facility] [id number] [facility] 07:21:04 07:21:04 NESS 2022-11-29 2022-11-29 Outpatient UR SOFI, [facility] [id number] [facility] 05:06:14 05:06:14 NESS 2022-11-28 2022-11-28 Outpatient UR SHISUMIT, [facility] [id number] [facility] 19:43:17 19:43:17 [facility] 2022-10-05 2022-10-05 Orders Doctor MATTHEW 1.2.840.114 [id number] Univers 00:00:00 00:00:00 Only Unassigned, MARTHA 350.1.13.10 ity of [place] [facility] 4.2.7.2.686 Rolando as [phone] [address] 2022-03-31 2022-03-31 Orders Doctor MATTHEW 1.2.840.114 [id number] Univers 00:00:00 00:00:00 Only Unassigned, MARTHA 350.1.13.10 ity of [place] [facility] 4.2.7.2.686 Rolando as [phone] [address] 2022-03-02 2022-03-02 Orders Doctor MATTHEW 1.2.840.114 [id number] Univers 00:00:00 00:00:00 Only Unassigned, MARTHA 350.1.13.10 ity of [place] [facility] 4.2.7.2.686 Rolnado as [id number] [address] 2022-02-26 2022-02-26 Orders Doctor CASTRO 1.2.840.114 [id number] Univers 00:00:00 00:00:00 Only Unassigned, MARTHA 350.1.13.10 ity of [place] [facility] 4.2.7.2.686 Rolando as [phone] [address] 2022-02-23 2022-02-23 Care Marlisa 2.16.840. 2.16.840.1. CLAC [id number] Devoted 21:00:00 21:30:00 [facility] [id number]. [facility] Medical 4.6. [id number] 2022-02-23 2022-02-23 Transition ENE Wang 1.2.840.114 [id number] Univers 00:00:00 00:00:00 of Care Nyasia LEHMAN 350.1.13.10 [place] [phone] [address] [address] 2022-02-22 2022-02-22 Transition ENE Wang 1.2.840.114 [id number] Univers 00:00:00 00:00:00 of Care Nyasia LEHMAN 350.1.13.10 [place] [id number] [facility] [address] 2022-02-22 2022-02-22 Orders Doctor MATTHEW 1.2.840.114 [id number] Univers 00:00:00 00:00:00 Only Unassigned, MARTHA 350.1.13.10 ity of [place] [facility] 4.2.7.2.686 Rolando as [phone] [facility] [address] 2022-02-20 2022-02-20 Emergency X [facility] ERT [id number] Univers 18:53:00 20:00:00 FELICIA gomez [facility] 2022-02-20 2022-02-20 Emergency [facility] 1.2.840.114 [id number] Univers 18:53:00 20:00:00 [facility] 350.1.13.10 i [place] [id number] [facility] [address] ([facility]) 2022-02-20 2022-02-20 Emergency X [facility] ERT [id number] Univers 18:53:00 20:00:00 FELICIA gomez [facility] 2022-02-14 2022-02-20 Hospital Osbaldo Aguiar [facility] 1.2.840.1 14 [id number] Univers 14:51:00 17:13:00 Encounter Corwin Walden [facility] 350.1.13.10 ity of [place] 4.2.7.2.686 T Carmelo Foster [id number] [address] ([facility]) 2022-02-14 2022-02-20 Inpatient X REMA [facility] [id number] Univers 14:51:00 17:13:00 CARMELO ity of [facility] 2022-02-17 2022-02-17 [facility] 1.2.840.114 [id number] Univers 09:00:00 11:00:00 Logan [facility] 350.1.13.10 it y of [place] 4.2.7.2.686 [facility] [phone] [facility] [address] ([facility]) 2022-01-08 2022-01-08 [facility] [id number] Devoted 07:10:00 07:10:00 0715 Medica l Group 2022-01-08 2022-01-08 [facility]patient [facility] [id number] Devoted 00:00:00 00:00:00 0506 Medica l Group 2021-12-09 2021-12-09 Outpatient FAYE MILLER [facility] [id number] [facility] 00:00:00 00:00:00 RAKESHWADE 2021-12-08 2021-12-[address] [facility] [id number] [facility] 00:[facility]:00 N [facility] 2021-11-08 2021-11-12 Hospital ER CheriJen coffey [facility] [id number] [facility] St 03:10:00 20:10:00 Encounter Ness Smith [facility] 2021-11-08 2021-11-12 Inpatient ER DAVIS [facility] Medical ICU [id number] [facility] 03:10:00 20:10:00 RICKIE 2021-11-10 2021-11-10 Travel [facility] [id number] [facility] 00:00:00 [facility] 2021-10-11 2021-10-11 Emergency X [facility] ERT [id number] Univers 05:52:00 06:48:00 HARDEEP ity of [facility] 2021-10-11 2021-10-11 Emergency [facility] 1.2.256.957 [id number] Univers 05:52:00 06:48:00 Hardeep RUSSELL 350.1.13.10 ity of [place] 4.2.7.2.686 [facility] [id number] [facility] [address] 2020-11-21 2020-11-21 [id number] Devoted 08:00:00 08:00:00 0528 Medica l Group 2020-05-05 2020-05-05 Outpatient JOHN [facility] PUL 7500 [facility] 13:21:00 15:55:00 PASTORA 2020-04-15 2020-04-15 Appoint[facility]LLY [facility] [id number] [place] 14:00:00 14:00:00 t; Carlos DESIR [facility] PENNY [facility] christina DESIR M.D. [place] 2020-04-07 2020-04-07 [facility] LOPEZ Pulmonary & [id number] [place] 13:30:00 13:30:00 t; PASTORA LOPEZ, Sleep Physi ci Carlos GUILLORY M.D. Results Test Description Test Time Test Comments Results Result Comments Source XR CHEST 1 VIEW 2022-12-02 PORTABLE / BEDSIDE [facility]:04[facility] 1950 Sex: M XR CHEST 1 VIEW PORTABLE / BEDSIDETECHNIQUE: Frontal view(s) of the chest.INDICATION: s/p AICD implants/p AICD implantCOMPARISON: Chest radiograph 11/29/2022FINDINGS/I MPRESSION:/Tu bes: Interval placement of a left chest wall cardiac device withleads in the right atrium and right ventricleLungs/ple ura: No convincing change in bilateral parenchymal opacities.Small bilateral pleural effusions. No pneumothorax.Heart and Mediastinum: Unchanged.Soft Tissues and Bones: Unchanged. BASIC METABOLIC PANEL 2022-12-02 06:06:02 Test Item Value Reference Range Interpretation Comme nts SODIUM (BEAKER) (test 137 meq/L 135-148 code = 381) POTASSIUM (BEAKER) 4.6 meq/L 3.6-5.5 (test code = 379) CHLORIDE (BEAKER) (test 99 meq/L 98-106 code = 382) CO2 (BEAKER) (test code 27 meq/L 20-29 = 355) BLOOD UREA NITROGEN 64 mg/dL 10-26 H (BEAKER) (test code = 354) CREATININE (BEAKER) 2.05 mg/dL 0.50-1.20 H (test code = 358) GLUCOSE RANDOM (BEAKER) 137 mg/dL 70-110 H (test code = 652) CALCIUM (BEAKER) (test 8.7 mg/dL 8.5-10.5 code = 697) EGFR (BEAKER) (test 35 mL/min/1.73 sq In terpretation of eGFR values code = 1092) m Stage Descript ion Result G1 Normal or high >=90 G2 Mildly decreased 60-89 G3a Mildly to moderately 45-5 9 G3b Moderately to severely 30- 44 G4 Severly decreased 15-29 G5 Kidney failure <15Repo rted eGFR is based on the CK D-EPI 2020 equation that d oes not use a race coefficien tEstimated GFR is not as accurate as Creatinine Clearance in pr edicting glomerular filt ration rate. Estimated GFR i s not applicable for dialysis manfred capone [employer] ID - LITOOperator ID - LITOOperator ID - LITOOperator ID - LITOOperator ID - LITOOperator ID - LITOOperator ID - LITOOperator ID - LITOOperator ID - LITOOperator ID - [id number] 06:01:51 Test Item Value Reference Range Interpretation Comments MAGNESIUM (BEAKER) (test code = 2.3 mg/dL 1.5-3.0 627) [employer] ID - LITOOperator ID - LITOOperator ID - LITOOperator ID - ROSALBA [id number] 05:59:05 Test Item Value Reference Range Interpretation Comments PHOSPHORUS (BEAKER) (test code = 3.3 mg/dL 2.5-4.5 604) [employer] ID - LITOCBC (HEMOGRAM ONLY)2022-12-02 05:45:52 Test Item Value Reference Range Interpretation Comments WHITE BLOOD CELL COUNT (BEAKER) 17.7 K/ L 4.0-10.0 H (test code = 775) RED BLOOD CELL COUNT (BEAKER) 3.90 M/ L 4.20-5.80 L (test code = 761) HEMOGLOBIN (BEAKER) (test code = 11.4 GM/DL 13.0-16.8 L 410) HEMATOCRIT (BEAKER) (test code = 36.3 % 36.0-50.0 411) MEAN CORPUSCULAR VOLUME (BEAKER) 93 fL 82-99 (test code = 753) MEAN CORPUSCULAR HEMOGLOBIN 29.2 pg 27.0-33.0 (BEAKER) (test code = 751) MEAN CORPUSCULAR HEMOGLOBIN CONC 31.4 GM/DL 32.0-36.0 L (BEAKER) (test code = 752) RED CELL DISTRIBUTION WIDTH 14.3 % 12.0-15.0 (BEAKER) (test code = 412) PLATELET COUNT (BEAKER) (test 205 K/CU MM 150-430 code = 756) MEAN PLATELET VOLUME (BEAKER) 11.2 fL 6.0-11.5 (test code = 754) NUCLEATED RED BLOOD CELLS 0 /100 WBC 0-0 (BEAKER) (test code = 413) BASIC METABOLIC [id number] 05:31:26 Test Item Value Reference Range Interpretation Comments SODIUM (BEAKER) 136 meq/L 135-148 (test code = 381) POTASSIUM 4.6 meq/L 3.6-5.5 (BEAKER) (test code = 379) CHLORIDE (BEAKER) 97 meq/L 98-106 L (test code = 382) CO2 (BEAKER) 28 meq/L 20-29 (test code = 355) BLOOD UREA 75 mg/dL 10-26 H NITROGEN (BEAKER) (test code = 354) CREATININE 2.54 mg/dL 0.50-1.20 H (BEAKER) (test code = 358) GLUCOSE RANDOM 146 mg/dL 70-110 H (BEAKER) (test code = 652) CALCIUM (BEAKER) 8.5 mg/dL 8.5-10.5 (test code = 697) EGFR (BEAKER) 27 Interpretatio n of eGFR (test code = mL/min/1.73 values Stage De scription 1092) sq m Result G1 Ynes l or high >=90 G2 Mildly decreased 60-89 G3a Mildl y to moderately 45-5 9 G3b Moderately to s everely 30-44 G4 Sever ly decreased 15-29 G5 Kidney failure <15Repo rted eGFR is based on the CKD-EPI 2020 equation t hat does not use a race coefficientEsti mated GFR is not as accur ate as Creatinine Kerry tereso in predicting glom erular filtration rate . Estimated GFR is not appl icable for dialysis patien ts [employer] ID - DSENSONOperator ID - DSENSONOperator ID - DSENSONOperator ID - DSENSONOperator ID - DSENSONOperator ID - DSENSONOperator ID - DSENSONOperator ID - DSENSONOperator ID - DSENSONOperator ID - [id number] 05:31:21 Test Item Value Reference Range Interpretation Comments MAGNESIUM (BEAKER) (test code = 2.4 mg/dL 1.5-3.0 627) [employer] ID - DSENSONOperator ID - DSENSONOperator ID - DSENSONOperator ID - [id number] 05:28:34 Test Item Value Reference Range Interpretation Comments PHOSPHORUS (BEAKER) (test code = 3.5 mg/dL 2.5-4.5 604) [employer] ID - [id number] (HEMOGRAM ONLY)2022-12-01 05:14:42 Test Item Value Reference Range Interpretation Comments WHITE BLOOD CELL COUNT (BEAKER) 14.4 K/ L 4.0-10.0 H (test code = 775) RED BLOOD CELL COUNT (BEAKER) 3.93 M/ L 4.20-5.80 L (test code = 761) HEMOGLOBIN (BEAKER) (test code = 11.5 GM/DL 13.0-16.8 L 410) HEMATOCRIT (BEAKER) (test code = 35.7 % 36.0-50.0 L 411) MEAN CORPUSCULAR VOLUME (BEAKER) 91 fL 82-99 (test code = 753) MEAN CORPUSCULAR HEMOGLOBIN 29.3 pg 27.0-33.0 (BEAKER) (test code = 751) MEAN CORPUSCULAR HEMOGLOBIN CONC 32.2 GM/DL 32.0-36.0 (BEAKER) (test code = 752) RED CELL DISTRIBUTION WIDTH 14.2 % 12.0-15.0 (BEAKER) (test code = 412) PLATELET COUNT (BEAKER) (test 203 K/CU MM 150-430 code = 756) MEAN PLATELET VOLUME (BEAKER) 11.5 fL 6.0-11.5 (test code = 754) NUCLEATED RED BLOOD CELLS 0 /100 WBC 0-0 (BEAKER) (test code = 413) [id number] 05:40:14 Test Item Value Reference Range Interpretation Comments MAGNESIUM (BEAKER) (test code = 2.4 mg/dL 1.5-3.0 627) [employer] ID - LITOOperator ID - LITOOperator ID - LITOOperator ID - LITOBASIC METABOLIC [id number] 05:39:50 Test Item Value Reference Range Interpretation Comments SODIUM (BEAKER) 135 meq/L 135-148 (test code = 381) POTASSIUM 4.8 meq/L 3.6-5.5 (BEAKER) (test code = 379) CHLORIDE (BEAKER) 98 meq/L 98-106 (test code = 382) CO2 (BEAKER) 26 meq/L 20-29 (test code = 355) BLOOD UREA 70 mg/dL 10-26 H NITROGEN (BEAKER) (test code = 354) CREATININE 2.08 mg/dL 0.50-1.20 H (BEAKER) (test code = 358) GLUCOSE RANDOM 149 mg/dL 70-110 H (BEAKER) (test code = 652) CALCIUM (BEAKER) 8.4 mg/dL 8.5-10.5 L (test code = 697) EGFR (BEAKER) 34 Interpretatio n of eGFR (test code = mL/min/1.73 values Stage De scription 1092) sq m Result G1 Ynes l or high >=90 G2 Mildly decreased 60-89 G3a Mildl y to moderately 45-5 9 G3b Moderately to s everely 30-44 G4 Severl y decreased 15-29 G5 Kidney failure <15Reported eGF R is based on the CKD-EPI 2020 equation that d oes not use a race coefficientEsti mated GFR is not as accur ate as Creatinine Kerry rider in predicting glom erular filtration rate . Estimated GFR is not appl icable for dialysis patien ts [employer] ID - LITOOperator ID - LITOOperator ID - LITOOperator ID - LITOOperator ID - LITOOperator ID - LITOOperator ID - LITOOperator ID - LITOOperator ID - LITOOperator ID - [id number] 05:37:07 Test Item Value Reference Range Interpretation Comments PHOSPHORUS (BEAKER) (test code = 3.0 mg/dL 2.5-4.5 604) [employer] ID - LITOCBC (HEMOGRAM ONLY)2022-11-30 05:15:58 Test Item Value Reference Range Interpretation Comments WHITE BLOOD CELL COUNT (BEAKER) 12.8 K/ L 4.0-10.0 H (test code = 775) RED BLOOD CELL COUNT (BEAKER) 3.85 M/ L 4.20-5.80 L (test code = 761) HEMOGLOBIN (BEAKER) (test code = 11.3 GM/DL 13.0-16.8 L 410) HEMATOCRIT (BEAKER) (test code = 35.2 % 36.0-50.0 L 411) MEAN CORPUSCULAR VOLUME (BEAKER) 91 fL 82-99 (test code = 753) MEAN CORPUSCULAR HEMOGLOBIN 29.4 pg 27.0-33.0 (BEAKER) (test code = 751) MEAN CORPUSCULAR HEMOGLOBIN CONC 32.1 GM/DL 32.0-36.0 (BEAKER) (test code = 752) RED CELL DISTRIBUTION WIDTH 14.3 % 12.0-15.0 (BEAKER) (test code = 412) PLATELET COUNT (BEAKER) (test 187 K/CU MM 150-430 code = 756) MEAN PLATELET VOLUME (BEAKER) 11.2 fL 6.0-11.5 (test code = 754) NUCLEATED RED BLOOD CELLS 0 /100 WBC 0-0 (BEAKER) (test code = 413) XR CHEST 1 VIEW PORTABLE / [id number] 10:24:26 [facility] 1950 Sex: MXR CHEST 1VIEW PORTABLE / BEDSIDETECHNIQUE: Frontal view(s) of the chest.INDICATION: Follow up on Pulmonary Edema treated at outside hospitalCOMPARISON: Chest radiograph 11/11/2021FINDINGS/IMPRESSION:Lines/Tubes:NoneLungs/pleura: There are airspace opacities throughout the left lung.Patchy airspace opacities are seen in the right mid to lower lung. Smallbilateral pleural effusions. No pneumothorax.Heart and Mediastinum: Unchanged.Soft Tissues and Bones: Unchanged.TSH/FREE T4 IF [id number] 06:12:05 Test Item Value Reference Range Interpretation Comments THYROID STIMULATING HORMONE 1.260 uIU/mL 0.350-5.500 (BEAKER) (test code = 772) [employer] ID - [id number] NATRIURETIC FACTOR (BNP)2022-11-29 06:02:05 Test Item Value Reference Range Interpretation Comments B-TYPE NATRIURETIC PEPTIDE 1351 pg/mL 0-100 H (BEAKER) (test code = 700) [employer] ID - [id number] METABOLIC [id number] 05:52:59 Test Item Value Reference Range Interpretation Comments SODIUM (BEAKER) 136 meq/L 135-148 (test code = 381) POTASSIUM 4.8 meq/L 3.6-5.5 (BEAKER) (test code = 379) CHLORIDE (BEAKER) 97 meq/L 98-106 L (test code = 382) CO2 (BEAKER) 28 meq/L 20-29 (test code = 355) BLOOD UREA 70 mg/dL 10-26 H NITROGEN (BEAKER) (test code = 354) CREATININE 1.93 mg/dL 0.50-1.20 H (BEAKER) (test code = 358) GLUCOSE RANDOM 150 mg/dL 70-110 H (BEAKER) (test code = 652) CALCIUM (BEAKER) 8.5 mg/dL 8.5-10.5 (test code = 697) EGFR (BEAKER) 37 Interpretatio n of eGFR (test code = mL/min/1.73 values Stage De scription 1092) sq m Result G1 Ynes l or high >=90 G2 Mildly decreased 60-89 G3a Mildl y to moderately 45-5 9 G3b Moderately to s everely 30-44 G4 Severl y decreased 15-29 G5 Kidney failure <15Reported eGF R is based on the CKD-EPI 2020 equation that d oes not use a race coefficientEsti mated GFR is not as accur ate as Creatinine Kerry treeso in predicting glom erular filtration rate . Estimated GFR is not appl icable for dialysis patien ts [employer] ID - [id number] ID - [id number] ID - MAULTDILV533Zvrzgehl ID - [id number] ID - [id number] ID - AKLAEURPN835Cqbfgkpi ID - [id number] ID - [id number] ID - [id number] ID - [id number] 05:51:36 Test Item Value Reference Range Interpretation Comments MAGNESIUM (BEAKER) (test code = 2.6 mg/dL 1.5-3.0 627) [employer] ID - [id number] ID - [id number] ID - [id number] ID - [id number] 05:49:18 Test Item Value Reference Range Interpretation Comments PHOSPHORUS (BEAKER) (test code = 2.8 mg/dL 2.5-4.5 604) [employer] ID - [id number] 05:38:18 Test Item Value Reference Range Interpretation Comments PARTIAL THROMBOPLASTIN 27.6 seconds 23.0-35.0 Final Information TIME (BEAKER) (test (Auto Ou tput) code = 760) PROTHROMBIN [id number] 05:38:17 Test Item Value Reference Range Interpretation Comments PROTIME (BEAKER) 11.3 seconds 9.3-12.0 Final Infor mation (test code = 759) (Auto Outp ut) INR (BEAKER) (test 1.06 <=5.90 Final Inf ormation code = 370) (Auto Output) RECOMMENDED COUMADIN/WARFARIN INR THERAPY RANGESSTANDARD DOSE: 2.0 - 3.0 Includes: PROPHYLAXIS for venous thrombosis, systemic embolization; TREATMENT for venous thrombosis and/or pulmonary embolus.HIGH RISK: Target INR is 2.5-3.5 for patients with mechanical heart valves.CBC (HEMOGRAM ONLY)2022-11-29 05:23:47 Test Item Value Reference Range Interpretation Comments WHITE BLOOD CELL COUNT (BEAKER) 12.7 K/ L 4.0-10.0 H (test code = 775) RED BLOOD CELL COUNT (BEAKER) 4.03 M/ L 4.20-5.80 L (test code = 761) HEMOGLOBIN (BEAKER) (test code = 11.8 GM/DL 13.0-16.8 L 410) HEMATOCRIT (BEAKER) (test code = 36.9 % 36.0-50.0 411) MEAN CORPUSCULAR VOLUME (BEAKER) 92 fL 82-99 (test code = 753) MEAN CORPUSCULAR HEMOGLOBIN 29.3 pg 27.0-33.0 (BEAKER) (test code = 751) MEAN CORPUSCULAR HEMOGLOBIN CONC 32.0 GM/DL 32.0-36.0 (BEAKER) (test code = 752) RED CELL DISTRIBUTION WIDTH 14.3 % 12.0-15.0 (BEAKER) (test code = 412) PLATELET COUNT (BEAKER) (test 208 K/CU MM 150-430 code = 756) MEAN PLATELET VOLUME (BEAKER) 11.4 fL 6.0-11.5 (test code = 754) NUCLEATED RED BLOOD CELLS 0 /100 WBC 0-0 (BEAKER) (test code = 413) BLOOD CULTURE [id number] 19:01:45 Test Item Value Reference Range Interpretation Comments Blood Culture-Aerobic No organisms No growth Previo us (test code = 64696-4) isolated prelim inary verified result was Culture [...] Culture-Anaerobic isolated preliminar y (test code = 50744-7) verifi ed result was Culture In Progress [...] CDT Lab Interpretation Normal (test code = 05167-8) [facility] CULTURE [id number] 19:01:45 Test Item Value Reference Range Interpretation Comments Blood Culture-Aerobic No organisms No growth Previo us (test code = 22450-8) isolated prelim inary verified result was Culture In Progress on 02/15/2022 at 17 CDTPrevious preliminary verified result was No growth a t 24 hours on 02/16/2022 at 14 CDTPrevious preliminary verified result was No growth a t 48 hours on 02/17/2022 at 14 CDTPrevious preliminary verified result was No growth a t 72 hours on 02/18/2022 at 14 01 CDT Blood No organisms No growth Previous Culture-Anaerobic isolated preliminar y (test code = 54023-4) verifi ed result was Culture In Progress [...] CDT Lab Interpretation Normal (test code = 77341-1) [facility] CULTURE [id number] 19:01:45 Test Item Value Reference Range Interpretation Comments Blood Culture-Aerobic No organisms No growth Previo us (test code = 85373-2) isolated prelim inary verified result was Culture [...] Culture-Anaerobic isolated preliminar y (test code = 69843-0) verifi ed result was Culture In Progress [...] CDT Lab Interpretation Normal (test code = 78391-7) [id number]:01:45 Test Item Value Reference Range Interpretation Comments Blood Culture-Aerobic No organisms No growth Previo us (test code = 24368-3) isolated prelim inary verified result was Culture [...] Culture-Anaerobic isolated preliminar y (test code = 14447-5) verifi ed result was Culture In Progress [...] CDT Lab Interpretation Normal (test code = 02599-9) [facility] GLUCOSE (AUTOMATED)2022-02-20 18:40:11 Test Item Value Reference Range Interpretation Comments POCT GLU (test code = 7486972971) 168 mg/dL 70-110 H Lab Interpretation (test code = Abnormal 24808-0) [facility] GLUCOSE (AUTOMATED)2022-02-20 18:40:11 Test Item Value Reference Range Interpretation Comments POCT GLU (test code = 8121200571) 168 mg/dL 70-110 H Lab Interpretation (test code = Abnormal 77586-0) [facility] GLUCOSE (AUTOMATED)2022-02-20 14:46:14 Test Item Value Reference Range Interpretation Comments POCT GLU (test code = 5953753528) 235 mg/dL 70-110 H Lab Interpretation (test code = Abnormal 54689-1) [facility] GLUCOSE (AUTOMATED)2022-02-20 14:46:14 Test Item Value Reference Range Interpretation Comments POCT GLU (test code = 2302516784) 235 mg/dL 70-110 H Lab Interpretation (test code = Abnormal 02214-2) [facility] METABOLIC PANEL (NA, K, CL, CO2, GLUCOSE, BUN, CREATININE, CA)2022-02-20 02:03:45 Test Item Value Reference Range Interpretation Comments NA (test code = 131 mmol/L 135-145 L 0548984164) K (test code = 4.9 mmol/L 3.5-5.0 4537107326) CL (test code = 102 mmol/L 98-108 2926598997) CO2 TOTAL (test code = 25 mmol/L 23-31 9404630196) AGAP (test code = 2-16 0642516909) BUN (test code = 52 mg/dL 7-23 H 1682217416) GLUCOSE (test code = 143 mg/dL 70-110 H 5294236322) CREATININE (test code = 1.40 mg/dL 0.60-1.25 H 6567757066) CALCIUM (test code = 8.3 mg/dL 8.6-10.6 L 6486710127) eGFR (test code = mL/min/1.73m2 1955115782) JUAN (test code = JUAN) Association of [...] tests). Lab Interpretation Abnormal (test code = 12453-0) [facility] METABOLIC PANEL (NA, K, CL, CO2, GLUCOSE, BUN, CREATININE, CA)2022-02-20 02:03:45 Test Item Value Reference Range Interpretation Comments NA (test code = 131 mmol/L 135-145 L 4355468704) K (test code = 4.9 mmol/L 3.5-5.0 9685647580) CL (test code = 102 mmol/L 98-108 1765783626) CO2 TOTAL (test code = 25 mmol/L 23-31 9702871664) AGAP (test code = 2-16 4792720491) BUN (test code = 52 mg/dL 7-23 H 6068942959) GLUCOSE (test code = 143 mg/dL 70-110 H 9559561842) CREATININE (test code = 1.40 mg/dL 0.60-1.25 H 9564959420) CALCIUM (test code = 8.3 mg/dL 8.6-10.6 L 9580354952) eGFR (test code = mL/min/1.73m2 9671019567) JUAN (test code = JUAN) Association of [...] tests). Lab Interpretation Abnormal (test code = 65827-2) [facility] GLUCOSE (AUTOMATED)2022-02-20 01:02:55 Test Item Value Reference Range Interpretation Comments POCT GLU (test code = 153 mg/dL 70-110 H Notifi ed Provider [id number]) Lab Interpretation (test Abnormal code = 80679-8) [facility] GLUCOSE (AUTOMATED)2022-02-20 01:02:55 Test Item Value Reference Range Interpretation Comments POCT GLU (test code = 153 mg/dL 70-110 H Notifi ed Provider [id number]) Lab Interpretation (test Abnormal code = 78850-1) [facility] GLUCOSE (AUTOMATED)2022-02-19 22:29:08 Test Item Value Reference Range Interpretation Comments POCT GLU (test code = 6626175111) 137 mg/dL 70-110 H Lab Interpretation (test code = Abnormal 86340-0) [facility] GLUCOSE (AUTOMATED)2022-02-19 22:29:08 Test Item Value Reference Range Interpretation Comments POCT GLU (test code = 8837524074) 137 mg/dL 70-110 H Lab Interpretation (test code = Abnormal 53225-0) [facility] GLUCOSE (AUTOMATED)2022-02-19 16:28:48 Test Item Value Reference Range Interpretation Comments POCT GLU (test code = 1918666590) 200 mg/dL 70-110 H Lab Interpretation (test code = Abnormal 73686-0) [facility] GLUCOSE (AUTOMATED)2022-02-19 16:28:48 Test Item Value Reference Range Interpretation Comments POCT GLU (test code = 2204752971) 200 mg/dL 70-110 H Lab Interpretation (test code = Abnormal 06940-2) [facility] GLUCOSE (AUTOMATED)2022-02-19 13:19:05 Test Item Value Reference Range Interpretation Comments POCT GLU (test code = 1685774767) 152 mg/dL 70-110 H Lab Interpretation (test code = Abnormal 07544-6) [facility] GLUCOSE (AUTOMATED)2022-02-19 13:19:05 Test Item Value Reference Range Interpretation Comments POCT GLU (test code = 7519309991) 152 mg/dL 70-110 H Lab Interpretation (test code = Abnormal 03815-4) [facility] GLUCOSE (AUTOMATED)2022-02-19 01:15:20 Test Item Value Reference Range Interpretation Comments POCT GLU (test code = 215 mg/dL 70-110 H Notifi ed Provider [id number]) Lab Interpretation (test Abnormal code = 18797-6) [facility] GLUCOSE (AUTOMATED)2022-02-19 01:15:20 Test Item Value Reference Range Interpretation Comments POCT GLU (test code = 215 mg/dL 70-110 H Notifi ed Provider [id number]) Lab Interpretation (test Abnormal code = 57780-1) [facility] GLUCOSE (AUTOMATED)2022-02-18 21:59:14 Test Item Value Reference Range Interpretation Comments POCT GLU (test code = 0025609980) 171 mg/dL 70-110 H Lab Interpretation (test code = Abnormal 80169-8) [facility] GLUCOSE (AUTOMATED)2022-02-18 21:59:14 Test Item Value Reference Range Interpretation Comments POCT GLU (test code = 5111982394) 171 mg/dL 70-110 H Lab Interpretation (test code = Abnormal 87205-5) [facility] Test Item Value Reference Interpretation Comments Range Procalcitonin (test 0.15 ng/mL See_Comment H [Automa josh code = 5646735705) message] The system which generated this result [...] lung abscess/empyema. For further information please refer to:[email or web address] Lab Interpretation Abnormal (test code = 01875-5) [facility] 20:40:46 Test Item Value Reference Interpretation Comments Range Procalcitonin (test 0.15 ng/mL See_Comment H [Automa josh code = 5694005812) message] The system which generated this result [...] lung abscess/empyema. For further information please refer to:[email or web address] Lab Interpretation Abnormal (test code = 33821-3) [facility] GLUCOSE (AUTOMATED)2022-02-18 17:32:13 Test Item Value Reference Range Interpretation Comments POCT GLU (test code = 6229126417) 129 mg/dL 70-110 H Lab Interpretation (test code = Abnormal 58880-5) [facility] GLUCOSE (AUTOMATED)2022-02-18 17:32:13 Test Item Value Reference Range Interpretation Comments POCT GLU (test code = 2534511606) 129 mg/dL 70-110 H Lab Interpretation (test code = Abnormal 07399-7) [facility] GLUCOSE (AUTOMATED)2022-02-18 12:59:31 Test Item Value Reference Range Interpretation Comments POCT GLU (test code = 1430501630) 89 mg/dL 70-110 Lab Interpretation (test code = Normal 51119-0) [facility] GLUCOSE (AUTOMATED)2022-02-18 12:59:31 Test Item Value Reference Range Interpretation Comments POCT GLU (test code = 8483349646) 89 mg/dL 70-110 Lab Interpretation (test code = Normal 98279-6) [facility] METABOLIC PANEL (NA, K, CL, CO2, GLUCOSE, BUN, CREATININE, CA)2022-02-18 09:38:02 Test Item Value Reference Range Interpretation Comments NA (test code = 133 mmol/L 135-145 L 6536410398) K (test code = 4.5 mmol/L 3.5-5.0 6339773474) CL (test code = 106 mmol/L 98-108 0747611435) CO2 TOTAL (test code = 23 mmol/L 23-31 1331874880) AGAP (test code = 2-16 3521296655) BUN (test code = 51 mg/dL 7-23 H 9787566302) GLUCOSE (test code = 81 mg/dL 70-110 9333050142) CREATININE (test code = 1.49 mg/dL 0.60-1.25 H 8330725115) CALCIUM (test code = 8.1 mg/dL 8.6-10.6 L 8326747629) eGFR (test code = mL/min/1.73m2 9283771421) JUAN (test code = JUAN) Association of [...] tests). Lab Interpretation Abnormal (test code = 49002-8) [facility] METABOLIC PANEL (NA, K, CL, CO2, GLUCOSE, BUN, CREATININE, CA)2022-02-18 09:38:02 Test Item Value Reference Range Interpretation Comments NA (test code = 133 mmol/L 135-145 L 1582040466) K (test code = 4.5 mmol/L 3.5-5.0 3756057302) CL (test code = 106 mmol/L 98-108 2068032331) CO2 TOTAL (test code = 23 mmol/L 23-31 2020732798) AGAP (test code = 2-16 9756983991) BUN (test code = 51 mg/dL 7-23 H 9403467315) GLUCOSE (test code = 81 mg/dL 70-110 8422433555) CREATININE (test code = 1.49 mg/dL 0.60-1.25 H 3998732311) CALCIUM (test code = 8.1 mg/dL 8.6-10.6 L 5449604668) eGFR (test code = mL/min/1.73m2 0790085126) JUAN (test code = JUAN) Association of [...] tests). Lab Interpretation Abnormal (test code = 44484-0) [facility] WITH [id number] 09:17:24 Test Item Value Reference Range Interpretation Comments WBC (test code = See_Comment [Automated 5885-2) message] The sy stem which generated this result transmitted reference range : 4.20 - 10.70 10*3/?L. The reference range was not used to interpret this result as normal/abnormal . RBC (test code = See_Comment L [Automated 239-8) message] The sy stem which generated this [...] RDW-SD (test code = 47.7 fL 38.5-51.6 63730-8) RDW-CV (test code = 14.3 % 12.1-15.4 788-0) PLT (test code = See_Comment [Automated 777-3) message] The sy stem which generated this result transmitted reference range : 150 - 328 10*3/ ?L. The reference r maxi was not used to interpret this result as normal/abnormal . MPV (test code = 10.0 fL 9.8-13.0 39677-1) NRBC/100 WBC (test See_Comment [Automat ed code = 5386637084) message] The system which generated this result transmitted reference range : 0.0 - 10.0 /100 WBCs. The refer ence range was not u sed to interpret th is result as normal/abnormal . NRBC x10^3 (test code See_Comment [Auto mated = 6494527454) message] The s ystem which generated this result transmitted reference range : 10*3/?L. The reference range was not used to interpret this result as normal/abnormal . GRAN MAT (NEUT) % 55.8 % (test code = 770-8) IMM GRAN % (test code 4.10 % = 7940328241) LYMPH % (test code = 30.1 % 736-9) MONO % (test code = 7.1 % 5905-5) EOS % (test code = 2.7 % 713-8) BASO % (test code = 0.2 % 706-2) GRAN MAT x10^3(ANC) 5.15 10*3/uL 1.99-6.95 (test code = 7039707428) IMM GRAN x10^3 (test 0.38 10*3/uL 0.00-0.06 H code = 1693779766) LYMPH x10^3 (test code 2.78 10*3/uL 1.09-3.23 = 731-0) MONO x10^3 (test code 0.66 10*3/uL 0.36-1.02 = 742-7) EOS x10^3 (test code = 0.25 10*3/uL 0.06-0.53 711-2) BASO x10^3 (test code 0.01-0.09 = 704-7) TOXIC CHANGES (test Present A code = 803-7) Lab Interpretation Abnormal (test code = 48263-0) [facility] WITH [id number] 09:17:24 Test Item Value Reference Range Interpretation Comments WBC (test code = See_Comment [Automated 5190-2) message] The sy stem which generated this [...] RDW-SD (test code = 47.7 fL 38.5-51.6 64390-6) RDW-CV (test code = 14.3 % 12.1-15.4 788-0) PLT (test code = See_Comment [Automated 777-3) message] The sy stem which generated this result transmitted reference range : 150 - 328 10*3/ ?L. The reference r maxi was not used to interpret this result as normal/abnormal . MPV (test code = 10.0 fL 9.8-13.0 97111-1) NRBC/100 WBC (test See_Comment [Automat ed code = 3115453639) message] The system which generated this result transmitted reference range : 0.0 - 10.0 /100 WBCs. The refer ence range was not u sed to interpret th is result as normal/abnormal . NRBC x10^3 (test code See_Comment [Auto mated = 9615207393) message] The s ystem which generated this result transmitted reference range : 10*3/?L. The reference range was not used to interpret this result as normal/abnormal . GRAN MAT (NEUT) % 55.8 % (test code = 770-8) IMM GRAN % (test code 4.10 % = 6088830686) LYMPH % (test code = 30.1 % 736-9) MONO % (test code = 7.1 % 5905-5) EOS % (test code = 2.7 % 713-8) BASO % (test code = 0.2 % 706-2) GRAN MAT x10^3(ANC) 5.15 10*3/uL 1.99-6.95 (test code = 4741096849) IMM GRAN x10^3 (test 0.38 10*3/uL 0.00-0.06 H code = 2685422781) LYMPH x10^3 (test code 2.78 10*3/uL 1.09-3.23 = 731-0) MONO x10^3 (test code 0.66 10*3/uL 0.36-1.02 = 742-7) EOS x10^3 (test code = 0.25 10*3/uL 0.06-0.53 711-2) BASO x10^3 (test code 0.01-0.09 = 704-7) TOXIC CHANGES (test Present A code = 803-7) Lab Interpretation Abnormal (test code = 89718-3) [facility] GLUCOSE (AUTOMATED)2022-02-18 01:16:25 Test Item Value Reference Range Interpretation Comments POCT GLU (test code = 4686082114) 170 mg/dL 70-110 H Lab Interpretation (test code = Abnormal 61845-8) [facility] GLUCOSE (AUTOMATED)2022-02-18 01:16:25 Test Item Value Reference Range Interpretation Comments POCT GLU (test code = 5902275256) 170 mg/dL 70-110 H Lab Interpretation (test code = Abnormal 02358-0) [facility] GLUCOSE (AUTOMATED)2022-02-17 21:45:32 Test Item Value Reference Range Interpretation Comments POCT GLU (test code = 1945853075) 117 mg/dL 70-110 H Lab Interpretation (test code = Abnormal 18717-7) [facility] GLUCOSE (AUTOMATED)2022-02-17 21:45:32 Test Item Value Reference Range Interpretation Comments POCT GLU (test code = 3093380125) 117 mg/dL 70-110 H Lab Interpretation (test code = Abnormal 88671-7[facility] Test Item Value Reference Range Interpretation Comments APTT Patient (test code See_Comment H [Au tomated message] = 3173-2) The system [employer] generated this result transmitted ref erence range: 26 - 36 Seconds. The reference range was not used to int erpret this result as normal/abnormal . Lab Interpretation (test Abnormal code = 26318-4) [place] [id number] 14:10:58 Test Item Value Reference Range Interpretation Comments APTT Patient (test code See_Comment H [Au tomated message] = 3173-2) The system [employer] generated this result transmitted ref erence range: 26 - 36 Seconds. The reference range was not used to int erpret this result as normal/abnormal . Lab Interpretation (test Abnormal code = 98692-2) [facility] GLUCOSE (AUTOMATED)2022-02-17 13:01:31 Test Item Value Reference Range Interpretation Comments POCT GLU (test code = 6053056897) 83 mg/dL 70-110 Lab Interpretation (test code = Normal 21731-1) [facility] GLUCOSE (AUTOMATED)2022-02-17 13:01:31 Test Item Value Reference Range Interpretation Comments POCT GLU (test code = 6028699303) 83 mg/dL 70-110 Lab Interpretation (test code = Normal 94924-0) [facility] WITH [id number] 09:49:28 Test Item Value Reference Range Interpretation [...] RDW-SD (test code = 48.0 fL 38.5-51.6 79873-1) RDW-CV (test code = 14.4 % 12.1-15.4 788-0) PLT (test code = See_Comment [Automated 777-3) message] The sy stem which generated this result transmitted reference range : 150 - 328 10*3/ ?L. The reference r maxi was not used to interpret this result as normal/abnormal . MPV (test code = 10.1 fL 9.8-13.0 39713-1) NRBC/100 WBC (test See_Comment [Automat ed code = 6925819021) message] The system which generated this result transmitted reference range : 0.0 - 10.0 /100 WBCs. The refer ence range was not u sed to interpret th is result as normal/abnormal . NRBC x10^3 (test code See_Comment [Auto mated = 4439614725) message] The s ystem which generated this result transmitted reference range : 10*3/?L. The reference range was not used to interpret this result as normal/abnormal . SEG % (test code = 60 % 33-76 61812-6) MYELO % (test code = 5 % See_Comment H [Autom ated 98557-2) message] The sy stem which generated this result transmitted reference range : <=0. The refere nce range was not u sed to interpret th is result as normal/abnormal . LYMPH % (test code = 17 % 14-54 74838-3) LG GRAN LYMPH % (test 9 % See_Comment H [Auto mated code = 90001-3) message] The system which generated this result transmitted reference range : <=0. The refere nce range was not u sed to interpret th is result as normal/abnormal . MONO % (test code = 7 % 0-4 H 88105-1) EOS % (test code = 2 % 0-3 24238-6) ANC (test code = 6.32 10*3/uL 1.99-6.95 753-4) TOXIC CHANGES (test Present A code = 803-7) Lab Interpretation Abnormal (test code = 66177-7) [facility] WITH [id number] 09:49:28 Test Item Value Reference Range Interpretation [...] RDW-SD (test code = 48.0 fL 38.5-51.6 84418-6) RDW-CV (test code = 14.4 % 12.1-15.4 788-0) PLT (test code = See_Comment [Automated 777-3) message] The sy stem which generated this result transmitted reference range : 150 - 328 10*3/ ?L. The reference r maxi was not used to interpret this result as normal/abnormal . MPV (test code = 10.1 fL 9.8-13.0 71156-8) NRBC/100 WBC (test See_Comment [Automat ed code = 4685041227) message] The system which generated this result transmitted reference range : 0.0 - 10.0 /100 WBCs. The refer ence range was not u sed to interpret th is result as normal/abnormal . NRBC x10^3 (test code See_Comment [Auto mated = 0337373979) message] The s ystem which generated this result transmitted reference range : 10*3/?L. The reference range was not used to interpret this result as normal/abnormal . SEG % (test code = 60 % 33-76 40074-2) MYELO % (test code = 5 % See_Comment H [Autom ated 68575-2) message] The sy stem which generated this result transmitted reference range : <=0. The refere nce range was not u sed to interpret th is result as normal/abnormal . LYMPH % (test code = 17 % 14-54 17606-8) LG GRAN LYMPH % (test 9 % See_Comment H [Auto mated code = 64821-8) message] The system which generated this result transmitted reference range : <=0. The refere nce range was not u sed to interpret th is result as normal/abnormal . MONO % (test code = 7 % 0-4 H 45504-4) EOS % (test code = 2 % 0-3 80096-1) ANC (test code = 6.32 10*3/uL 1.99-6.95 753-4) TOXIC CHANGES (test Present A code = 803-7) Lab Interpretation Abnormal (test code = 80992-7) [facility] METABOLIC PANEL (NA, K, CL, CO2, GLUCOSE, BUN, CREATININE, CA)2022-02-17 09:47:07 Test Item Value Reference Range Interpretation Comments NA (test code = 130 mmol/L 135-145 L 6597194641) K (test code = 4.5 mmol/L 3.5-5.0 4103685526) CL (test code = 103 mmol/L 98-108 8885284347) CO2 TOTAL (test code = 26 mmol/L 23-31 5149962370) AGAP (test code = 2-16 L 5682819386) BUN (test code = 58 mg/dL 7-23 H 6321662398) GLUCOSE (test code = 92 mg/dL 70-110 6739669032) CREATININE (test code = 1.55 mg/dL 0.60-1.25 H 9153292325) CALCIUM (test code = 7.8 mg/dL 8.6-10.6 L 5085875363) eGFR (test code = mL/min/1.73m2 6945192730) JUAN (test code = JUAN) Association of [...] tests). Lab Interpretation Abnormal (test code = 09387-7) [facility] Test Item Value Reference Range Interpretation Comments MAGNESIUM (test code = 7851530607) 2.2 mg/dL 1.7-2.4 Lab Interpretation (test code = Normal 76183-8) [facility] (NA, K, CL, CO2, GLUCOSE, BUN, CREATININE, CA)2022-02-17 09:47:07 Test Item Value Reference Range Interpretation Comments NA (test code = 130 mmol/L 135-145 L 5071800343) K (test code = 4.5 mmol/L 3.5-5.0 9922928860) CL (test code = 103 mmol/L 98-108 4882016553) CO2 TOTAL (test code = 26 mmol/L 23-31 8440089694) AGAP (test code = 2-16 L 4706798666) BUN (test code = 58 mg/dL 7-23 H 9513838086) GLUCOSE (test code = 92 mg/dL 70-110 9909622564) CREATININE (test code = 1.55 mg/dL 0.60-1.25 H 2425572119) CALCIUM (test code = 7.8 mg/dL 8.6-10.6 L 9829170626) eGFR (test code = mL/min/1.73m2 8420745728) JUAN (test code = JUAN) Association of [...] tests). Lab Interpretation Abnormal (test code = 37953-9) [facility] 09:47:07 Test Item Value Reference Range Interpretation Comments MAGNESIUM (test code = 7606776307) 2.2 mg/dL 1.7-2.4 Lab Interpretation (test code = Normal 51808-3) [facility] (NA, K, CL, CO2, GLUCOSE, BUN, CREATININE, CA)2022-02-17 01:31:26 Test Item Value Reference Range Interpretation Comments NA (test code = 128 mmol/L 135-145 L 4732182634) K (test code = 4.7 mmol/L 3.5-5.0 4811945564) CL (test code = 100 mmol/L 98-108 2551140973) CO2 TOTAL (test code = 26 mmol/L 23-31 5839416554) AGAP (test code = 2-16 7895453264) BUN (test code = 61 mg/dL 7-23 H 3749957742) GLUCOSE (test code = 129 mg/dL 70-110 H 0349127979) CREATININE (test code = 1.73 mg/dL 0.60-1.25 H 3536443903) CALCIUM (test code = 7.8 mg/dL 8.6-10.6 L 4340965087) eGFR (test code = mL/min/1.73m2 4306531917) JUAN (test code = JUAN) Association of [...] tests). Lab Interpretation Abnormal (test code = 24955-5) [facility] METABOLIC PANEL (NA, K, CL, CO2, GLUCOSE, BUN, CREATININE, CA)2022-02-17 01:31:26 Test Item Value Reference Range Interpretation Comments NA (test code = 128 mmol/L 135-145 L 7577882721) K (test code = 4.7 mmol/L 3.5-5.0 8029842801) CL (test code = 100 mmol/L 98-108 2905742869) CO2 TOTAL (test code = 26 mmol/L 23-31 6216491267) AGAP (test code = 2-16 9898193700) BUN (test code = 61 mg/dL 7-23 H 2212225439) GLUCOSE (test code = 129 mg/dL 70-110 H 7090344476) CREATININE (test code = 1.73 mg/dL 0.60-1.25 H 1877087000) CALCIUM (test code = 7.8 mg/dL 8.6-10.6 L 6974747602) eGFR (test code = mL/min/1.73m2 6858285413) JUAN (test code = JUAN) Association of [...] tests). Lab Interpretation Abnormal (test code = 55050-3) [facility] [id number] 01:27:27 Test Item Value Reference Range Interpretation Comments APTT Patient (test code See_Comment H [Au tomated message] = 3173-2) The system [employer] generated this result transmitted ref erence range: 26 - 36 Seconds. The reference range was not used to int erpret this result as normal/abnormal . Lab Interpretation (test Abnormal code = 80037-1) [facility] [id number] 01:27:27 Test Item Value Reference Range Interpretation Comments APTT Patient (test code See_Comment H [Au tomated message] = 3173-2) The system [employer] generated this result transmitted ref erence range: 26 - 36 Seconds. The reference range was not used to int erpret this result as normal/abnormal . Lab Interpretation (test Abnormal code = 94580-8) [facility] 01:02:53 Test Item Value Reference Range Interpretation Comments POCT GLU (test code = 8551565029) 130 mg/dL 70-110 H Lab Interpretation (test code = Abnormal 19166-4) [facility] GLUCOSE (AUTOMATED)2022-02-17 01:02:53 Test Item Value Reference Range Interpretation Comments POCT GLU (test code = 5300155221) 130 mg/dL 70-110 H Lab Interpretation (test code = Abnormal 09962-7) [facility] GLUCOSE (AUTOMATED)2022-02-16 21:30:00 Test Item Value Reference Range Interpretation Comments POCT GLU (test code = 2301234154) 125 mg/dL 70-110 H Lab Interpretation (test code = Abnormal 42943-8) [facility] GLUCOSE (AUTOMATED)2022-02-16 21:30:00 Test Item Value Reference Range Interpretation Comments POCT GLU (test code = 1761561084) 125 mg/dL 70-110 H Lab Interpretation (test code = Abnormal 67512-1) [facility] [id number] 18:47:50 Test Item Value Reference Interpretation Comments Range TROPONIN I (test 17.600 ng/mL See_Comment H [Automated code = 3089501648) message] The system which generated this result [...] biotin. Lab Interpretation Abnormal (test code = 25596-4) [facility] [id number] 18:47:50 Test Item Value Reference Interpretation Comments Range TROPONIN I (test 17.600 ng/mL See_Comment H [Automated code = 7287304607) message] The system which generated this result [...] biotin. Lab Interpretation Abnormal (test code = 42591-9) [facility] METABOLIC PANEL (NA, K, CL, CO2, GLUCOSE, BUN, CREATININE, CA)2022-02-16 18:35:51 Test Item Value Reference Range Interpretation Comments NA (test code = 129 mmol/L 135-145 L 0245335245) K (test code = 4.8 mmol/L 3.5-5.0 7558462304) CL (test code = 100 mmol/L 98-108 1755899722) CO2 TOTAL (test code = 27 mmol/L 23-31 6857947529) AGAP (test code = 2-16 2115558135) BUN (test code = 62 mg/dL 7-23 H 1753762119) GLUCOSE (test code = 121 mg/dL 70-110 H 0811284347) CREATININE (test code = 1.62 mg/dL 0.60-1.25 H 0328204510) CALCIUM (test code = 8.0 mg/dL 8.6-10.6 L 3829177171) eGFR (test code = mL/min/1.73m2 2234274359) JUAN (test code = JUAN) Association of [...] tests). Lab Interpretation Abnormal (test code = 63324-1) [facility] (NA, K, CL, CO2, GLUCOSE, BUN, CREATININE, CA)2022-02-16 18:35:51 Test Item Value Reference Range Interpretation Comments NA (test code = 129 mmol/L 135-145 L 4533956510) K (test code = 4.8 mmol/L 3.5-5.0 0155970315) CL (test code = 100 mmol/L 98-108 8619054815) CO2 TOTAL (test code = 27 mmol/L 23-31 1672298839) AGAP (test code = 2-16 8006708441) BUN (test code = 62 mg/dL 7-23 H 7453051549) GLUCOSE (test code = 121 mg/dL 70-110 H 0061887151) CREATININE (test code = 1.62 mg/dL 0.60-1.25 H 4831161546) CALCIUM (test code = 8.0 mg/dL 8.6-10.6 L 1075280593) eGFR (test code = mL/min/1.73m2 5512228297) JUAN (test code = JUAN) Association of [...] tests). Lab Interpretation Abnormal (test code = 16761-1) [facility] GLUCOSE (AUTOMATED)2022-02-16 16:35:47 Test Item Value Reference Range Interpretation Comments POCT GLU (test code = 8697379614) 163 mg/dL 70-110 H Lab Interpretation (test code = Abnormal 15777-5) [facility] GLUCOSE (AUTOMATED)2022-02-16 16:35:47 Test Item Value Reference Range Interpretation Comments POCT GLU (test code = 8589838820) 163 mg/dL 70-110 H Lab Interpretation (test code = Abnormal 69013-1) [facility] 14:04:01 Test Item Value Reference Range Interpretation Comments APTT Patient (test code See_Comment H [Au tomated message] = 3173-2) The system [employer] generated this result transmitted ref erence range: 26 - 36 Seconds. The reference range was not used to int erpret this result as normal/abnormal . Lab Interpretation (test Abnormal code = 07254-7) [facility]-16 14:04:01 Test Item Value Reference Range Interpretation Comments APTT Patient (test code See_Comment H [Au tomated message] = 3173-2) The system [employer] generated this result transmitted ref erence range: 26 - 36 Seconds. The reference range was not used to int erpret this result as normal/abnormal . Lab Interpretation (test Abnormal code = 34147-4) [facility] GLUCOSE (AUTOMATED)2022-02-16 13:18:42 Test Item Value Reference Range Interpretation Comments POCT GLU (test code = 8778618778) 108 mg/dL 70-110 Lab Interpretation (test code = Normal 36058-4) [facility] GLUCOSE (AUTOMATED)2022-02-16 13:18:42 Test Item Value Reference Range Interpretation Comments POCT GLU (test code = 7962551815) 108 mg/dL 70-110 Lab Interpretation (test code = Normal 24623-0) [facility] [id number] 07:40:53 Test Item Value Reference Interpretation Comments Range TROPONIN I (test 27.000 ng/mL See_Comment H [Automated code = 6600810135) message] The system which generated this result [...] biotin. Lab Interpretation Abnormal (test code = 49875-8) [facility] [id number] 07:40:53 Test Item Value Reference Interpretation Comments Range TROPONIN I (test 27.000 ng/mL See_Comment H [Automated code = 9231102269) message] The system which generated this result [...] biotin. Lab Interpretation Abnormal (test code = 76310-2) [facility] METABOLIC PANEL (NA, K, CL, CO2, GLUCOSE, BUN, CREATININE, CA)2022-02-16 07:32:56 Test Item Value Reference Range Interpretation Comments NA (test code = 129 mmol/L 135-145 L 3169769762) K (test code = 4.8 mmol/L 3.5-5.0 3438006535) CL (test code = 99 mmol/L 98-108 9823585864) CO2 TOTAL (test code = 28 mmol/L 23-31 6752242550) AGAP (test code = 2-16 5917259323) BUN (test code = 60 mg/dL 7-23 H 0763129920) GLUCOSE (test code = 124 mg/dL 70-110 H 7530171755) CREATININE (test code = 1.96 mg/dL 0.60-1.25 H 9668011849) CALCIUM (test code = 8.2 mg/dL 8.6-10.6 L 0566460232) eGFR (test code = mL/min/1.73m2 9154685215) JUAN (test code = JUAN) Association of [...] tests). Lab Interpretation Abnormal (test code = 11518-5) [facility] METABOLIC PANEL (NA, K, CL, CO2, GLUCOSE, BUN, CREATININE, CA)2022-02-16 07:32:56 Test Item Value Reference Range Interpretation Comments NA (test code = 129 mmol/L 135-145 L 4130479273) K (test code = 4.8 mmol/L 3.5-5.0 9711694647) CL (test code = 99 mmol/L 98-108 7368393813) CO2 TOTAL (test code = 28 mmol/L 23-31 0767503043) AGAP (test code = 2-16 8725427171) BUN (test code = 60 mg/dL 7-23 H 4820310449) GLUCOSE (test code = 124 mg/dL 70-110 H 9508751103) CREATININE (test code = 1.96 mg/dL 0.60-1.25 H 5596067378) CALCIUM (test code = 8.2 mg/dL 8.6-10.6 L 9299641902) eGFR (test code = mL/min/1.73m2 9345001455) JUAN (test code = JUAN) Association of [...] tests). Lab Interpretation Abnormal (test code = 29706-9) [facility] Test Item Value Reference Range Interpretation Comments MAGNESIUM (test code = 2109772060) 2.3 mg/dL 1.7-2.4 Lab Interpretation (test code = Normal 94569-8) [facility] 07:29:09 Test Item Value Reference Range Interpretation Comments PHOSPHORUS (test code = 1592886918) 3.4 mg/dL 2.5-5.0 Lab Interpretation (test code = Normal 97742-5) [facility] 07:29:09 Test Item Value Reference Range Interpretation Comments MAGNESIUM (test code = 2938474945) 2.3 mg/dL 1.7-2.4 Lab Interpretation (test code = Normal 77466-0) [facility] 07:29:09 Test Item Value Reference Range Interpretation Comments PHOSPHORUS (test code = 9085231322) 3.4 mg/dL 2.5-5.0 Lab Interpretation (test code = Normal 98674-2) [facility] [id number] 07:00:47 Test Item Value Reference Range Interpretation Comments APTT Patient (test code See_Comment H [Au tomated message] = 3173-2) The system [employer] generated this result transmitted ref erence range: 26 - 36 Seconds. The reference range was not used to int erpret this result as normal/abnormal . Lab Interpretation (test Abnormal code = 41166-2) [facility] [id number] 07:00:47 Test Item Value Reference Range Interpretation Comments APTT Patient (test code See_Comment H [Au tomated message] = 3173-2) The system [employer] generated this result transmitted ref erence range: 26 - 36 Seconds. The reference range was not used to int erpret this result as normal/abnormal . Lab Interpretation (test Abnormal code = 78108-7) [facility] [id number] 06:45:45 Test Item Value Reference Range Interpretation Comments WBC (test code = See_Comment H [Automated 6690-2) message] The system which generated this result transmit josh reference range : 4.20 - 10.70 10*3/?L. The reference range was not used to interpret this result as normal/abnormal . RBC (test code = See_Comment L [Automated 019-8) message] The system which generated this result [...] RDW-SD (test code = 49.1 fL 38.5-51.6 47695-5) RDW-CV (test code = 14.6 % 12.1-15.4 788-0) PLT (test code = See_Comment [Automated 777-3) message] The system which generated this result transmit josh reference range : 150 - 328 10*3/ ?L. The reference range was not u sed to interpret th is result as normal/abnormal . MPV (test code = 10.0 fL 9.8-13.0 26170-4) NRBC/100 WBC (test See_Comment [Automat ed code = 4306922511) message] The system which generated this result transmit josh reference range : 0.0 - 10.0 /100 WBCs. The reference range was not used to interpret this result as normal/abnormal . NRBC x10^3 (test code See_Comment [Auto mated = 4472663404) message] The system which generated this result transmit josh reference range : 10*3/?L. The reference range was not used to interpret this result as normal/abnormal . GRAN MAT (NEUT) % 71.4 % (test code = 770-8) IMM GRAN % (test code 1.60 % = 0661481271) LYMPH % (test code = 20.8 % 736-9) MONO % (test code = 5.9 % 5905-5) EOS % (test code = 0.2 % 713-8) BASO % (test code = 0.1 % 706-2) GRAN MAT x10^3(ANC) 10.41 10*3/uL 1.99-6.95 H (test code = 6669245439) IMM GRAN x10^3 (test 0.24 10*3/uL 0.00-0.06 H code = 1644760969) LYMPH x10^3 (test code 3.04 10*3/uL 1.09-3.23 = 731-0) MONO x10^3 (test code 0.86 10*3/uL 0.36-1.02 = 742-7) EOS x10^3 (test code = 0.03 10*3/uL 0.06-0.53 L 711-2) BASO x10^3 (test code 0.01-0.09 = 704-7) Lab Interpretation Abnormal (test code = 32318-4) [facility] WITH [id number] 06:45:45 Test Item Value Reference Range Interpretation [...] RDW-SD (test code = 49.1 fL 38.5-51.6 81037-8) RDW-CV (test code = 14.6 % 12.1-15.4 788-0) PLT (test code = See_Comment [Automated 777-3) message] The system which generated this result transmit josh reference range : 150 - 328 10*3/ ?L. The reference range was not u sed to interpret th is result as normal/abnormal . MPV (test code = 10.0 fL 9.8-13.0 11904-4) NRBC/100 WBC (test See_Comment [Automat ed code = 6086052329) message] The system which generated this result transmit josh reference range : 0.0 - 10.0 /100 WBCs. The reference range was not used to interpret this result as normal/abnormal . NRBC x10^3 (test code See_Comment [Auto mated = 1757833526) message] The system which generated this result transmit josh reference range : 10*3/?L. The reference range was not used to interpret this result as normal/abnormal . GRAN MAT (NEUT) % 71.4 % (test code = 770-8) IMM GRAN % (test code 1.60 % = 8716827534) LYMPH % (test code = 20.8 % 736-9) MONO % (test code = 5.9 % 5905-5) EOS % (test code = 0.2 % 713-8) BASO % (test code = 0.1 % 706-2) GRAN MAT x10^3(ANC) 10.41 10*3/uL 1.99-6.95 H (test code = 2582229014) IMM GRAN x10^3 (test 0.24 10*3/uL 0.00-0.06 H code = 4983276145) LYMPH x10^3 (test code 3.04 10*3/uL 1.09-3.23 = 731-0) MONO x10^3 (test code 0.86 10*3/uL 0.36-1.02 = 742-7) EOS x10^3 (test code = 0.03 10*3/uL 0.06-0.53 L 711-2) BASO x10^3 (test code 0.01-0.09 = 704-7) Lab Interpretation Abnormal (test code = 12567-4) [facility] 03:38:07 Test Item Value Reference Range Interpretation Comments Height (test code = in 6583601359) Weight (test code = lbs 6813458063) Systolic BP (test code = mmHg 5701400237) Diastolic BP (test code mmHg = 7542046157) Heart Rate (test code = bpm 1375140341) BSA (test code = 2.06 m2 6321214657) MV valve area p 1/2 7.50 cm2 method (test code = 3771031224) MV dec slope (test code 1149.00 cm/s2 = 8783998059) MV P1/2t max carmita (test 114.40 cm/s code = 5131881850) MV Peak E Carmita (test code 114.8 cm/s = 6774886657) MV Prop V (test code = 34.90 cm/s 7649131472) Tapse (test code = 2.20 cm 3475456468) MV E/e' septal (test 10.3 cm/s code = 8370375047) LVOT peak carmita (test code 97.7 cm/s = 0491031208) LVOT mn grad (test code mmHg = 5444314340) AV LVOT peak gradient mmHg (test code = 1518638842) LVOT peak VTI (test code 13.1 cm = 3904849945) LV V1 mean (test code = 62.10 cm/s 9799044134) Aortic valve mean 72.2 cm/s velocity (test code = 1152961048) Ao peak carmita (test code = 108.6 cm/s 2623353587) Ao VTI (test code = 13.7 cm 0729622431) Ao max PG (test code = 4.70 mm[Hg] 9043269572) AV peak gradient (test mmHg code = 4659729010) AV mean gradient (test mmHg code = 6107438357) Aortic HR (test code = BPM 5836412673) LAV(MOD-sp2) (test code 56.20 mL = 4384338901) LVIDD (test code = 5.40 cm 3752312032) IVS (test code = 0.97 cm 2685622143) Interventricular Septum 0.97 cm Diastolic Thickness by 2D (test code = 6276845) LVPWD (test code = 0.90 cm 6582039333) PW (test code = 0.90 cm 0.6-1.0 4275321826) EF(Teich) (test code = 38.40 % 3273238849) LVIDS (test code = 4.40 cm 1058120305) FS (test code = 19 % 1944302989) EF - 2D (test code = 38.40 % 50633603) Radiology Study observation (narrative) (test code = 14783-5) JUAN (test code = JUAN) Formatting of [...] mL of Lumason ultrasound enhancing agent used. [facility] GLUCOSE (AUTOMATED)2022-02-16 01:08:44 Test Item Value Reference Range Interpretation Comments POCT GLU (test code = 2858898409) 167 mg/dL 70-110 H Lab Interpretation (test code = Abnormal 68162-6) [facility] GLUCOSE (AUTOMATED)2022-02-16 01:08:44 Test Item Value Reference Range Interpretation Comments POCT GLU (test code = 7850845601) 167 mg/dL 70-110 H Lab Interpretation (test code = Abnormal 84547-7) [facility] METABOLIC PANEL (NA, K, CL, CO2, GLUCOSE, BUN, CREATININE, CA)2022-02-16 00:36:49 Test Item Value Reference Range Interpretation Comments NA (test code = 128 mmol/L 135-145 L 1057623283) K (test code = 5.9 mmol/L 3.5-5.0 H Slight 5487774983) hemolysis CL (test code = 99 mmol/L 98-108 0001068179) CO2 TOTAL (test code 27 mmol/L 23-31 = 1026051958) AGAP (test code = 2-16 9922871875) BUN (test code = 60 mg/dL 7-23 H Slight 0126744420) hemolysis GLUCOSE (test code = 123 mg/dL 70-110 H 6020107062) CREATININE (test code 2.04 mg/dL 0.60-1.25 H = 6592712463) CALCIUM (test code = 8.2 mg/dL 8.6-10.6 L 2925827098) eGFR (test code = mL/min/1.73m2 1170489796) JUAN (test code = JUAN) Association of [...] tests). Lab Interpretation Abnormal (test code = 32269-5) [facility] METABOLIC PANEL (NA, K, CL, CO2, GLUCOSE, BUN, CREATININE, CA)2022-02-16 00:36:49 Test Item Value Reference Range Interpretation Comments NA (test code = 128 mmol/L 135-145 L 0582832482) K (test code = 5.9 mmol/L 3.5-5.0 H Slight 4268998645) hemolysis CL (test code = 99 mmol/L 98-108 5334790235) CO2 TOTAL (test code 27 mmol/L 23-31 = 1559138446) AGAP (test code = 2-16 4173087774) BUN (test code = 60 mg/dL 7-23 H Slight 6184973348) hemolysis GLUCOSE (test code = 123 mg/dL 70-110 H 4088572990) CREATININE (test code 2.04 mg/dL 0.60-1.25 H = 8166287611) CALCIUM (test code = 8.2 mg/dL 8.6-10.6 L 6044286754) eGFR (test code = mL/min/1.73m2 8917630378) JUAN (test code = JUAN) Association of [...] tests). Lab Interpretation Abnormal (test code = 93153-1) [id number] 00:[facility]33 Test Item Value Reference Interpretation Comments Range TROPONIN I (test 29.900 ng/mL See_Comment H [Automated code = 2846452551) message] The system which generated this result [...] biotin. Lab Interpretation Abnormal (test code = 55390-1) [facility] [id number] 00:35:33 Test Item Value Reference Interpretation Comments Range TROPONIN I (test 29.900 ng/mL See_Comment H [Automated code = 2665968023) message] The system which generated this result [...] biotin. Lab Interpretation Abnormal (test code = 26791-8) [facility] 00:23:52 Test Item Value Reference Range Interpretation Comments MAGNESIUM (test code = 6289617735) 2.3 mg/dL 1.7-2.4 Lab Interpretation (test code = Normal 07695-2) [facility] 00:23:52 Test Item Value Reference Range Interpretation Comments PHOSPHORUS (test code = 8057880081) 3.7 mg/dL 2.5-5.0 Lab Interpretation (test code = Normal 67913-4) [facility] 00:23:52 Test Item Value Reference Range Interpretation Comments MAGNESIUM (test code = 3689057971) 2.3 mg/dL 1.7-2.4 Lab Interpretation (test code = Normal 05055-4) [facility] 00:23:52 Test Item Value Reference Range Interpretation Comments PHOSPHORUS (test code = 3665711768) 3.7 mg/dL 2.5-5.0 Lab Interpretation (test code = Normal 30067-5) [facility] (for use with Heparin Infusion)2022-02-16 00:05:05 Test Item Value Reference Range Interpretation Comments APTT Patient (test code See_Comment H [Au tomated message] = 3173-2) The system [employer] generated this result transmitted ref erence range: 26 - 36 Seconds. The reference range was not used to int erpret this result as normal/abnormal . Lab Interpretation (test Abnormal code = 31082-7) [facility] (for use with Heparin Infusion)2022-02-16 00:05:05 Test Item Value Reference Range Interpretation Comments APTT Patient (test code See_Comment H [Au tomated message] = 3173-2) The system [employer] generated this result transmitted ref erence range: 26 - 36 Seconds. The reference range was not used to int erpret this result as normal/abnormal . Lab Interpretation (test Abnormal code = 59455-3) [facility] GLUCOSE (AUTOMATED)2022-02-15 23:08:37 Test Item Value Reference Range Interpretation Comments POCT GLU (test code = 6298600742) 110 mg/dL 70-110 Lab Interpretation (test code = Normal 93781-8) [facility] GLUCOSE (AUTOMATED)2022-02-15 23:08:37 Test Item Value Reference Range Interpretation Comments POCT GLU (test code = 4328757469) 110 mg/dL 70-110 Lab Interpretation (test code = Normal 51345-7) [facility] [id number] 17:40:19 Test Item Value Reference Interpretation Comments Range TROPONIN I (test 40.200 ng/mL See_Comment H [Automated code = 9483576873) message] The system which generated this result [...] biotin. Lab Interpretation Abnormal (test code = 69576-0) [facility] [id number] 17:40:19 Test Item Value Reference Interpretation Comments Range TROPONIN I (test 40.200 ng/mL See_Comment H [Automated code = 1838132946) message] The system which generated this result [...] biotin. Lab Interpretation Abnormal (test code = 11442-9) [facility] 17:33:19 Test Item Value Reference Range Interpretation Comments APTT Patient (test code = See_Comment [ Automated message] 3173-2) The system [employer] generated this result transmitted ref erence range: 26 - 36 Seconds. The re ference range was not u sed to interpret this result as normal/abnor mal. Lab Interpretation (test Normal code = 10091-6) [facility] 17:33:19 Test Item Value Reference Range Interpretation Comments APTT Patient (test code = See_Comment [ Automated message] 3173-2) The system [employer] generated this result transmitted ref erence range: 26 - 36 Seconds. The re ference range was not u sed to interpret this result as normal/abnor mal. Lab Interpretation (test Normal code = 82957-8) [facility] 17:28:41 Test Item Value Reference Range Interpretation Comments MAGNESIUM (test code = 5845739122) 2.4 mg/dL 1.7-2.4 Lab Interpretation (test code = Normal 76045-7) [facility] 17:28:41 Test Item Value Reference Range Interpretation Comments PHOSPHORUS (test code = 2207739592) 3.1 mg/dL 2.5-5.0 Lab Interpretation (test code = Normal 00134-5) [facility] 17:28:41 Test Item Value Reference Range Interpretation Comments MAGNESIUM (test code = 5988602523) 2.4 mg/dL 1.7-2.4 Lab Interpretation (test code = Normal 37532-1) [facility] 17:28:41 Test Item Value Reference Range Interpretation Comments PHOSPHORUS (test code = 6543775031) 3.1 mg/dL 2.5-5.0 Lab Interpretation (test code = Normal 40038-3) [facility] (NA, K, CL, CO2, GLUCOSE, BUN, CREATININE, CA)2022-02-15 17:28:40 Test Item Value Reference Range Interpretation Comments NA (test code = 131 mmol/L 135-145 L 0814916351) K (test code = 4.4 mmol/L 3.5-5.0 2573153672) CL (test code = 100 mmol/L 98-108 7707199442) CO2 TOTAL (test code = 29 mmol/L 23-31 8339702369) AGAP (test code = 2-16 1726595665) BUN (test code = 56 mg/dL 7-23 H 2370950356) GLUCOSE (test code = 149 mg/dL 70-110 H 9108939751) CREATININE (test code = 1.93 mg/dL 0.60-1.25 H 6222750948) CALCIUM (test code = 8.4 mg/dL 8.6-10.6 L 0252431114) eGFR (test code = mL/min/1.73m2 1510077682) JUAN (test code = JUAN) Association of [...] tests). Lab Interpretation Abnormal (test code = 55382-3) [facility] METABOLIC PANEL (NA, K, CL, CO2, GLUCOSE, BUN, CREATININE, CA)2022-02-15 17:28:40 Test Item Value Reference Range Interpretation Comments NA (test code = 131 mmol/L 135-145 L 8895427106) K (test code = 4.4 mmol/L 3.5-5.0 5279001162) CL (test code = 100 mmol/L 98-108 4951967144) CO2 TOTAL (test code = 29 mmol/L 23-31 1431840921) AGAP (test code = 2-16 3731639139) BUN (test code = 56 mg/dL 7-23 H 3087864329) GLUCOSE (test code = 149 mg/dL 70-110 H 8508846192) CREATININE (test code = 1.93 mg/dL 0.60-1.25 H 8713545102) CALCIUM (test code = 8.4 mg/dL 8.6-10.6 L 9476221316) eGFR (test code = mL/min/1.73m2 1414736422) JUAN (test code = JUAN) Association of [...] tests). Lab Interpretation Abnormal (test code = 67271-1) [facility] GLUCOSE (AUTOMATED)2022-02-15 16:45:01 Test Item Value Reference Range Interpretation Comments POCT GLU (test code = 2739257606) 155 mg/dL 70-110 H Lab Interpretation (test code = Abnormal 95796-4) [facility]22-[facility]15 16:45:01 Test Item Value Reference Range Interpretation Comments POCT GLU (test code = 8541746201) 155 mg/dL 70-110 H Lab Interpretation (test code = Abnormal 97995-1) [facility]20[facility] 15:22:46 Test Item Value Reference Interpretation Comments Range Procalcitonin (test 0.29 ng/mL See_Comment H [Automa josh code = 7359104929) message] The system which generated this result [...] lung abscess/empyema. For further information please refer to:[email or web address] Lab Interpretation Abnormal (test code = 58809-1) [facility] 15:22:46 Test Item Value Reference Interpretation Comments Range Procalcitonin (test 0.29 ng/mL See_Comment H [Automa josh code = 6397572520) message] The system which generated this result [...] lung abscess/empyema. For further information please refer to:[email or web address] Lab Interpretation Abnormal (test code = 30998-0) [facility] GLUCOSE (AUTOMATED)2022-02-15 13:10:03 Test Item Value Reference Range Interpretation Comments POCT GLU (test code = 4660283108) 158 mg/dL 70-110 H Lab Interpretation (test code = Abnormal 49649-8) [facility] GLUCOSE (AUTOMATED)2022-02-15 13:10:03 Test Item Value Reference Range Interpretation Comments POCT GLU (test code = 3989054578) 158 mg/dL 70-110 H Lab Interpretation (test code = Abnormal 37628-9) [facility] [id number] 11:33:31 Test Item Value Reference Interpretation Comments Range TROPONIN I (test 44.100 ng/mL See_Comment H [Automated code = 1170205233) message] The system which generated this result [...] biotin. Lab Interpretation Abnormal (test code = 10897-8) [facility] [id number] 11:33:31 Test Item Value Reference Interpretation Comments Range TROPONIN I (test 44.100 ng/mL See_Comment H [Automated code = 9957370618) message] The system which generated this result [...] biotin. Lab Interpretation Abnormal (test code = 41693-7) [facility] WITHOUT [id number] 10:48:10 Test Item Value Reference Range Interpretation Comments WBC (test code = 6690-2) See_Comment H [A utomated message] The system [employer] generated this result transmit josh reference range : 4.20 - 10.70 10*3/?L. The reference range was not used to interpret this result as normal/abnormal . RBC (test code = 789-8) See_Comment L [Au tomated message] The system [employer] generated this result transmit josh reference range [...] 777-3) See_Comment [Au tomated message] The system [employer] generated this result transmit josh reference range : 150 - 328 10*3/?L. The reference range was not used to interpret this result as normal/abnormal . MPV (test code = 9.9 fL 9.8-13.0 60947-7) RDW-CV (test code = 14.6 % 12.1-15.4 788-0) RDW-SD (test code = 48.1 fL 38.5-51.6 41641-7) NRBC x10^3 (test code = See_Comment [Au tomated message] 6182853178) The system [employer] generated this result transmit josh reference range : 10*3/?L. The reference range was not used to interpret this result as normal/abnormal . NRBC/100 WBC (test code See_Comment [Au tomated message] = 4386124573) The system [facility] generated this result transmit josh reference range : 0.0 - 10.0 /100 WBC s. The reference r maxi was not used to interpret this result as normal/abnormal . IPF % (test code = 2982588299) Lab Interpretation (test Abnormal code = 79666-0) [facility] [facility] [id number] 10:48:10 Test Item Value Reference Range Interpretation Comments WBC (test code = 6690-2) See_Comment H [A utomated message] The system [employer] generated this result transmit josh reference range : 4.20 - 10.70 10*3/?L. The reference range was not used to interpret this result as normal/abnormal . RBC (test code = 789-8) See_Comment L [Au tomated message] The system [employer] generated this result transmit josh reference range [...] 777-3) See_Comment [Au tomated message] The system [employer] generated this result transmit josh reference range : 150 - 328 10*3/?L. The reference range was not used to interpret this result as normal/abnormal . MPV (test code = 9.9 fL 9.8-13.0 44123-2) RDW-CV (test code = 14.6 % 12.1-15.4 788-0) RDW-SD (test code = 48.1 fL 38.5-51.6 94957-8) NRBC x10^3 (test code = See_Comment [Au tomated message] 1197884810) The system [employer] generated this result transmit josh reference range : 10*3/?L. The reference range was not used to interpret this result as normal/abnormal . NRBC/100 WBC (test code See_Comment [Au tomated message] = 3928711095) The system [email or web address] ch generated this result transmit josh reference range : 0.0 - 10.0 /100 WBC s. The reference r maxi was not used to interpret this result as normal/abnormal . IPF % (test code = 4656706188) Lab Interpretation (test Abnormal code = 59285-5) [facility] 10[facility]42:52 Test Item Value Reference Range Interpretation Comments MAGNESIUM (test code = 8008486518) 2.5 mg/dL 1.7-2.4 H Lab Interpretation (test code = Abnormal 65818-0) [facility] (NA, K, CL, CO2, GLUCOSE, BUN, CREATININE, CA)2022-02-15 10:42:52 Test Item Value Reference Range Interpretation Comments NA (test code = 132 mmol/L 135-145 L 0634016241) K (test code = 4.5 mmol/L 3.5-5.0 3722170210) CL (test code = 100 mmol/L 98-108 2754111937) CO2 TOTAL (test code = 29 mmol/L 23-31 6480688218) AGAP (test code = 2-16 0273221054) BUN (test code = 55 mg/dL 7-23 H 5770599246) GLUCOSE (test code = 171 mg/dL 70-110 H 6211540082) CREATININE (test code = 2.00 mg/dL 0.60-1.25 H 5253961848) CALCIUM (test code = 8.4 mg/dL 8.6-10.6 L 5945285995) eGFR (test code = mL/min/1.73m2 8683609901) JUAN (test code = JUAN) Association of [...] tests). Lab Interpretation Abnormal (test code = 42141-0) [facility] 10:42:52 Test Item Value Reference Range Interpretation Comments MAGNESIUM (test code = 7104226986) 2.5 mg/dL 1.7-2.4 H Lab Interpretation (test code = Abnormal 76440-3) [facility] (NA, K, CL, CO2, GLUCOSE, BUN, CREATININE, CA)2022-02-15 10:42:52 Test Item Value Reference Range Interpretation Comments NA (test code = 132 mmol/L 135-145 L 8199732197) K (test code = 4.5 mmol/L 3.5-5.0 0896956192) CL (test code = 100 mmol/L 98-108 4749865121) CO2 TOTAL (test code = 29 mmol/L 23-31 2654451385) AGAP (test code = 2-16 1982680336) BUN (test code = 55 mg/dL 7-23 H 1149231557) GLUCOSE (test code = 171 mg/dL 70-110 H 6472296554) CREATININE (test code = 2.00 mg/dL 0.60-1.25 H 7467443144) CALCIUM (test code = 8.4 mg/dL 8.6-10.6 L 2960959868) eGFR (test code = mL/min/1.73m2 8393829787) JUAN (test code = JUAN) Association of [...] tests). Lab Interpretation Abnormal (test code = 07629-0) [facility] THRM[facility] [id number] 10:39:08 Test Item Value Reference Range Interpretation Comments APTT Patient (test code See_Comment H [Au tomated message] = 3173-2) The system [employer] generated this result transmitted ref erence range: 26 - 36 Seconds. The reference range was not used to int erpret this result as normal/abnormal . Lab Interpretation (test Abnormal code = 16397-0) [facility] [id number] 10:39:08 Test Item Value Reference Range Interpretation Comments APTT Patient (test code See_Comment H [Au tomated message] = 3173-2) The system [employer] generated this result transmitted ref erence range: 26 - 36 Seconds. The reference range was not used to int erpret this result as normal/abnormal . Lab Interpretation (test Abnormal code = 96417-6) [facility] PARTIAL THRMPLAS [id number] 04:26:48 Test Item Value Reference Range Interpretation Comments APTT Patient (test code See_Comment H [Au tomated message] = 3173-2) The system [employer] generated this result transmitted ref erence range: 26 - 36 Seconds. The reference range was not used to int erpret this result as normal/abnormal . Lab Interpretation (test Abnormal code = 51947-5) [facility] PARTIAL THRMPLAS [id number] 04:26:48 Test Item Value Reference Range Interpretation Comments APTT Patient (test code See_Comment H [Au tomated message] = 3173-2) The system [employer] generated this result transmitted ref erence range: 26 - 36 Seconds. The reference range was not used to int erpret this result as normal/abnormal . Lab Interpretation (test Abnormal code = 52396-5) [facility] GLUCOSE (AUTOMATED)2022-02-15 02:38:04 Test Item Value Reference Range Interpretation Comments POCT GLU (test code = 3643739889) 170 mg/dL 70-110 H Lab Interpretation (test code = Abnormal 80751-5) [facility] GLUCOSE (AUTOMATED)2022-02-15 02:38:04 Test Item Value Reference Range Interpretation Comments POCT GLU (test code = 5720612888) 170 mg/dL 70-110 H Lab Interpretation (test code = Abnormal 70874-8) [facility] CenterTROPONIN [id number] 01:26:24 Test Item Value Reference Interpretation Comments Range TROPONIN I (test 13.300 ng/mL See_Comment H [Automated code = 2622029538) message] The system which generated this result [...] biotin. Lab Interpretation Abnormal (test code = 98380-2) [facility] [id number] 01:26:24 Test Item Value Reference Interpretation Comments Range TROPONIN I (test 13.300 ng/mL See_Comment H [Automated code = 6374346109) message] The system which generated this result [...] biotin. Lab Interpretation Abnormal (test code = 22231-9) [facility] METABOLIC PANEL (NA, K, CL, CO2, GLUCOSE, BUN, CREATININE, CA)2022-02-15 01:14:22 Test Item Value Reference Range Interpretation Comments NA (test code = 134 mmol/L 135-145 L 0241654463) K (test code = 4.6 mmol/L 3.5-5.0 8440966926) CL (test code = 99 mmol/L 98-108 5996580193) CO2 TOTAL (test code = 26 mmol/L 23-31 1404754835) AGAP (test code = 2-16 4426526582) BUN (test code = 54 mg/dL 7-23 H 7759764225) GLUCOSE (test code = 190 mg/dL 70-110 H 4137202967) CREATININE (test code = 2.13 mg/dL 0.60-1.25 H 1317891640) CALCIUM (test code = 8.8 mg/dL 8.6-10.6 0397785346) eGFR (test code = mL/min/1.73m2 7134045690) JUAN (test code = JUAN) Association of [...] tests). Lab Interpretation Abnormal (test code = 75374-0) [facility] METABOLIC PANEL (NA, K, CL, CO2, GLUCOSE, BUN, CREATININE, CA)2022-02-15 01:14:22 Test Item Value Reference Range Interpretation Comments NA (test code = 134 mmol/L 135-145 L 8462614648) K (test code = 4.6 mmol/L 3.5-5.0 5729005363) CL (test code = 99 mmol/L 98-108 8224776435) CO2 TOTAL (test code = 26 mmol/L 23-31 1104264901) AGAP (test code = 2-16 4551265634) BUN (test code = 54 mg/dL 7-23 H 6867579589) GLUCOSE (test code = 190 mg/dL 70-110 H 8288014101) CREATININE (test code = 2.13 mg/dL 0.60-1.25 H 9845514448) CALCIUM (test code = 8.8 mg/dL 8.6-10.6 2818814208) eGFR (test code = mL/min/1.73m2 6793541940) JUAN (test code = JUAN) Association of [...] tests). Lab Interpretation Abnormal (test code = 79463-4) [facility] CenterL[facility] Acid Whole [id number] 00:58:27 Test Item Value Reference Range Interpretation Comments LACTIC ACID (test code = 4.00 mmol/L 0.50-2.20 H 0027558146) Lab Interpretation (test code = Abnormal 45904-2) [facility] CenterL[facility] Acid Whole [id number] 00:58:27 Test Item Value Reference Range Interpretation Comments LACTIC ACID (test code = 4.00 mmol/L 0.50-2.20 H 4692056225) Lab Interpretation (test code = Abnormal 94944-1) [facility] CenterBLOOD [id number] 07:00:32 Test Item Value Reference Range Interpretation Comments CULTURE (BEAKER) (test No growth in 5 days code = 1095) BLOOD [id number] 07:00:32 Test Item Value Reference Range Interpretation Comments CULTURE (BEAKER) (test No growth in 5 days code = 1095) POC-Glucose [id number] 16:01:13 Test Item Value Reference Range Interpretation Comments POC-Glucose Meter (test 136 mg/dL 70-110 H : TE STED AT SLSL code = 1538) [address] [place] [address]: [employer]/Techn[employer] [place] ID = [id number] for Castaneda, Martina cherry Lab Interpretation (test Abnormal code = 98489-2) [facility] [id number] 16:01:13 Test Item Value Reference Range Interpretation Comments POC-Glucose Meter (test 136 mg/dL 70-110 H : TE STED AT SLSL code = 1538) [address] [place] [address]: [employer]Techn[employer] [place] ID = [id number] for Castaneda, Martina cherry Lab Interpretation (test Abnormal code = 21991-9) [facility] [id number] 16:01:13 Test Item Value Reference Range Interpretation Comments POC-Glucose Meter (test 136 mg/dL 70-110 H : TE STED AT SLSL code = 1538) [address] [place] [address]: [employer]Techn[employer] [place] ID = [id number] for Castaneda, Martina cehrry Lab Interpretation (test Abnormal code = 98810-1) [facility] [id number] 16:01:13 Test Item Value Reference Range Interpretation Comments POC-Glucose Meter (test 136 mg/dL 70-110 H : TE STED AT [facility]SL code = 1538) [address] [place] [address]: [employer]Techn[employer] [place] ID = [id number] for Castaneda, Martina cherry Lab Interpretation (test Abnormal code = 46649-0) [facility]ucose [id number] 16:01:13 Test Item Value Reference Range Interpretation Comments POC-Glucose Meter (test 136 mg/dL 70-110 H : [facility] [address] [place] [address]: [employer]/Techni [place] ID = [id number] for Castaneda, Martina cherry Lab Interpretation (test Abnormal code = 70313-6) [facility] [id number] 16:01:13 Test Item Value Reference Range Interpretation Comments POC-Glucose Meter (test 136 mg/dL 70-110 H : TE STED AT [facility]SL code = 1538) [address] [place] [address]: [employer]/Techni [place] ID = [id number] for Castaneda, Martina cherry Lab Interpretation (test Abnormal code = 14633-6) [facility] [id number] 16:01:13 Test Item Value Reference Range Interpretation Comments POC-GLUCOSE METER 136 mg/dL 70-110 H : TESTED A T [facility] [address]17 (BEAKER) (test code [facility], = 1538) [place] [address]: [employer]/Techni [place] ID = [id number] for Cerv antes, Crystal POCT-GLUCOSE [id number] 11:30:14 Test Item Value Reference Range Interpretation Comments POC-GLUCOSE METER 112 mg/dL 70-110 H : TESTED A T [facility] [address]17 (BEAKER) ([facility]) [facility] [address]: [employer]/Techni [place] ID = [id number] for Cerv antes, Crystal POCT-GLUCOSE [id number] 06:45:43 Test Item Value Reference Range Interpretation Comments POC-GLUCOSE METER 150 mg/dL 70-110 H : TESTED A T [facility] [address] (BEAKER) (test code [address], = 1538) [facility] 77 [address]: [employer]/Techni [place] ID = [id number] for Tania Poe [id number] 06:05:04 Test Item Value Reference Range Interpretation Comments MAGNESIUM (BEAKER) (test code = 2.2 mg/dL 1.5-3.0 627) [employer] ID - [id number] ID - [id number] ID - [id number] ID - [id number] METABOLIC [id number] 06:04:06 Test Item Value Reference Range Interpretation [...] 1092) DATA TO CALCULA TE ESTIMATED GFR. [employer] ID - [id number] ID - [id number] ID - AICMTKTGJ351Pebnzsmy ID - MBAYPQJJO354Dvhzuepr ID - KHAEPPKRY646Mclmhavl ID - DRGSYIQVH280Vvahcvxt ID - IWTWEWCMQ737Fcukwung ID - GYGTPUXJB943Uskvozed ID - FQFIWXHXP899Pevhayxs ID - [id number] W/PLT COUNT & AUTO DIFFERENTIAL 2021-11-12 05:53:41 [...] PERCENT (BEAKER) (test code = 2801) POCT-GLUCOSE [id number] 21:50:33 Test Item Value Reference Range Interpretation Comments POC-GLUCOSE METER 173 mg/dL 70-110 H : TESTED A T [facility] [address] (BEAKER) (test code [facility], = 1538) [place] [address]: [employer]/Techni [place] ID = [id number] for Taina Poe POCT-GLUCOSE [id number] 16:45:23 Test Item Value Reference Range Interpretation Comments POC-GLUCOSE METER 134 mg/dL 70-110 H : TESTED A T [facility] [address] (BEAKER) (test code [facility], = 1538) [place] [address]: [employer]/Techni [place] ID = [id number] for Dapr emont, Heather POCT-GLUCOSE [id number] 11:45:21 Test Item Value Reference Range Interpretation Comments POC-GLUCOSE METER 125 mg/dL 70-110 H : TESTED A T [facility] [address]17 (BEAKER) (test code [facility], = 1538) [place] [address]: [employer]/Techni [place] ID = [id number] for Dapr emont, Heather Sputum Culture + Gram [id number] 08:54:21 Test Item Value Reference Range Interpretation Comments Result (test code = 4+ Normal respiratory 6463-4) luis eduardo present Gram Stain Result 3+ Mixed luis eduardo (test code = 1123) [facility] Gram [id number] 08:54:21 Test Item Value Reference Range Interpretation Comments Result (test code = 4+ Normal respiratory 6463-4) luis eduardo present Gram Stain Result 3+ Mixed luis eduardo (test code = 1123) [facility] + Gram [id number] 08:54:21 Test Item Value Reference Range Interpretation Comments Result (test code = 4+ Normal respiratory 6463-4) luis eduardo present Gram Stain Result 3+ Mixed luis eduardo (test code = 1123) [facility] + Gram [id number] 08:54:21 Test Item Value Reference Range Interpretation Comments Result (test code = 4+ Normal respiratory 6463-4) luis eduardo present Gram Stain Result 3+ Mixed luis eduardo (test code = 1123) [facility] + Gram [id number] 08:54:21 Test Item Value Reference Range Interpretation Comments Result (test code = 4+ Normal respiratory 6463-4) luis eduardo present Gram Stain Result 3+ Mixed luis eduardo (test code = 1123) [facility] + Gram [id number] 08:54:21 Test Item Value Reference Range Interpretation Comments Result (test code = 4+ Normal respiratory 6463-4) luis eduardo present Gram Stain Result 3+ Mixed luis eduardo (test code = 1123) [facility] Center[facility] C[facility] + GRAM [id number] 08:54:21 Test Item Value Reference Range Interpretation Comments CULTURE (BEAKER) 4+ Normal respiratory (test code = 1095) luis eduardo present GRAM STAIN RESULT 1+ White blood cells (BEAKER) (test code = seen 1123) GRAM STAIN RESULT 1+ epithelial cells (BEAKER) (test code = 79344) GRAM STAIN RESULT 3+ Mixed luis eduardo (BEAKER) (test code = 89571) RAD, CHEST, 1 VIEW, NON [id number] 07:33:00Reason for exam:->[facility] : 1950 Sex: MFINAL REPORT CHEST AP PORTABLE SEMIERECT Comparison exam: 11/09/2021 History provided: Pneumonia Heart size normal. Chronic pleural thickening at the right base. Lungs free of acute disease and vascularity normal. Signed: Carlos Navarro Verified Date/Time: 11/11/2021 07:33:28 Reading Location: [facility] Diagnostic Imaging Reading Room - [facility] 1310.12 POCT-GLUCOSE [id number] 06:54:14 Test Item Value Reference Range Interpretation Comments POC-GLUCOSE METER 133 mg/dL 70-110 H : TESTED A T [facility] [address]17 (BEAKER) (test code [address], = 1538) [facility] 77 [address]: [employer]/Techni [place] ID = [id number] for Taina Poe [id number] 04:53:42 Test Item Value Reference Range Interpretation Comments MAGNESIUM (BEAKER) (test code = 2.3 mg/dL 1.5-3.0 627) [employer] ID - [id number] ID - [id number] ID - fzwy38Whmbcvir ID - [id number] BASIC METABOLIC [id number] 04:52:53 Test Item Value Reference Range Interpretation [...] 1092) DATA TO CALCULA TE ESTIMATED GFR. [employer] ID - [id number] ID - [id number] ID - lhdb37Byarbxek ID - lles66Bcsvmzeg ID - xisr95Nmvbfwtq ID - bhwi85Gsdulijw ID - qbbc17Uhbcyvrg ID - srdk65Wnqylmis ID - atvy39Hthhldse ID - [id number] W/PLT COUNT & AUTO [id number] 04:28:30 Test Item Value Reference Range Interpretation [...] (test code = 416) BASOPHILS ABSOLUTE COUNT ([facility]) 0.04 K/ L 0.00-0.20 (test code = 417) IMMATURE GRANULOCYTES-RELATIVE 2 % 0-0 H PERCENT (BEAKER) (test code = 2801) 2D Echo W/Doppler(CW/PW/Color)2021-11-11 00:37:05Ejection FractionSLE ECHO [facility] Echo W/Doppler(CW/PW/Color)2021-11-11 00:37:05Ejection FractionSLEH ECHO HEARTLAB [facility] Echo W/Doppler(CW/PW/Color) 2021-11-11 00:37:05Ejection FractionSLE ECHO [facility]ARTLAB [facility] Echo W/Doppler(CW/PW/Color)2021-11-11 00:37:05Ejection FractionSLE ECHO HEARTLAB [facility]2D Echo W/Doppler(CW/PW/Color)2021-11-11 00:37:05Ejection FractionSLE ECHO [facility]ARTLAB [facility] Echo W/Doppler(CW/PW/Color) 2021-11-11 00:37:05Ejection FractionSLE ECHO [facility]ARTLAB [facility]villePOCT-GLUCOSE [id number] 20:59:54 Test Item Value Reference Range Interpretation Comments POC-GLUCOSE METER 148 mg/dL 70-110 H : TESTED A T [facility] [address] (BEAKER) (test code [address], = 1538) [place] [address]: [employer]/Techni [place] ID = [id number] for Shelby vanegas Taina POCT-GLUCOSE [id number] 15:51:00 Test Item Value Reference Range Interpretation Comments POC-GLUCOSE METER 156 mg/dL 70-110 H : TESTED A T [facility] [address] (BEAKER) (test code [address], = 1538) [place] [address]: [employer]/Techni [place] ID = [id number] for Cerv antes, Crystal POCT-GLUCOSE [id number] 11:44:26 Test Item Value Reference Range Interpretation Comments POC-GLUCOSE METER 139 mg/dL 70-110 H : TESTED A T [facility] [address] (BEAKER) (test code [address], = 1538) [facility] 77 [address]: [employer]/Techni [place] ID = [id number] for Shazia Scott BASIC METABOLIC [id number] 07:34:29 Test Item Value Reference Range Interpretation [...] 1092) DATA TO CALCULA TE ESTIMATED GFR. [employer] ID - DSENSONOperator ID - DSENSONOperator ID [...] (test code = 18 U/L 5-50 347) [employer] ID - DSENSONOperator ID - DSENSONOperator ID - DSENSONOperator ID - DSENSONOperator ID - DSENSONOperator ID - DSENSONOperator ID - DSENSONOperator ID - DSENSONOperator ID - DSENSONOperator ID - DSENSONCBC W/PLT COUNT & AUTO [id number] 07:19:24 Test Item Value Reference Range Interpretation [...] PERCENT (BEAKER) (test code = 2801) POCT-GLUCOSE [id number] 07:05:35 Test Item Value Reference Range Interpretation Comments POC-GLUCOSE METER 129 mg/dL 70-110 H : [facility] (BEAKER) (test code [facility], = 1538) [place] [address]: [employer]/Techni [place] ID = [id number] for Anayeli ety, Ruth POCT-GLUCOSE [id number] 22:17:06 Test Item Value Reference Range Interpretation Comments POC-GLUCOSE METER 135 mg/dL 70-110 H : TESTED A T [facility] 1317 ([facility]) (test code [facility], = 1538) [place] [address]: [employer]/Techni [place] ID = [id number] for Anayeli ety, Ruth POCT-GLUCOSE [id number] 16:21:48 Test Item Value Reference Range Interpretation Comments POC-GLUCOSE METER 178 mg/dL 70-110 H : Notified RN/MD: TESTED (BEAKER) (test code AT [facility] [address] = 1538) [place] [address]: [employer]/Techni [place] ID = [id number] for Alee Calderon HEPATITIS PANEL, [id number] 14:58:49 Test Item Value Reference Range Interpretation Comments HEPATITIS A IGM ANTIBODY (BEAKER) Nonreactive Nonreactive (test code = 498) HEPATITIS B CORE IGM ANTIBODY Nonreactive Nonreactive (BEAKER) (test code = 645) HEPATITIS C ANTIBODY (BEAKER) Nonreactive Nonreactive (test code = 367) HEPATITIS B SURFACE ANTIGEN (2) Nonreactive Nonreactive (BEAKER) (test code = 2585) [employer] ID - DBOperator ID - DBPOCT-GLUCOSE [id number] 12:30:38 Test Item Value Reference Range Interpretation Comments POC-GLUCOSE METER 184 mg/dL 70-110 H : Notified RN/MD: TESTED (MARLENA) (test code AT [facility] [address] = 1538) [place] [address]: [employer]/Techni [place] ID = [id number] for Francisco Javier h Lorita VENOUS DOPPLER LEGS, [id number] 10:54:00Reason for exam:->[facility] : 1950 Sex: MFINAL [...] MDReport Verified Date/Time: 11/09/2021 10:54:12 Reading Location: [facility] Radiology Reading Room RAD, CHEST, 1 VIEW, NON [id number] 09:00:00 Reason for exam:->PNAShould this be performed at the bedside?->Yes [facility] : 1950 Sex: [...] ThackerMDReport Verified Date/Time: 11/09/2021 09:00:23 Reading Location: [facility] Radiology Reading Room POCT-GLUCOSE [id number] 07:33:54 Test Item Value Reference Range Interpretation Comments POC-GLUCOSE METER 156 mg/dL 70-110 H : Notified RN/MD: TESTED (MARLENA) (test code AT [place] [address] [address] = 1538) [facility] [address]: [employer]/Techni [place] ID = [id number] for Alec Bush [id number] 05:00:02 Test Item Value Reference Range Interpretation Comments PARTIAL THROMBOPLASTIN 111.6 seconds 23.0-35.0 H Berna l Information TIME ([facility]) (test (Auto Ou tput) code = 760) HIV-1 ANTIGEN WITH HIV-1/2 [id number] 04:53:13 Test Item Value Reference Range Interpretation Comments HIV-1 ANTIGEN WITH HIV 1\\T\\2 Nonreactive Nonreactive ANTIBODY (2) ([facility]) (test code = 2586) [employer] ID - [id number] METABOLIC [id number] 04:38:36 Test Item Value Reference Range Interpretation [...] 1092) DATA TO CALCULA TE ESTIMATED GFR. [employer] ID - [id number] ID - [id number] ID - WTAQIZRKP448Btwlqjto ID - EUZGCWLNG131Iqvsoqxf ID - HBWXZKMMO546Vqqouemz ID - VPPTUDSDE444Rxkeqdiq ID - PLYKJWFMQ136Qajxgfnc ID - DJMTOLSUC963Pumswjve ID - UIPPHFVVE836Jmvisexy ID - MOCBEZDNZ461LMKOTIE FUNCTION [id number] 04:36:24 Test Item Value Reference Range Interpretation [...] (test code = 22 U/L 5-50 347) [employer] ID - [id number] ID - ZXDNWODBL204Cjeqqiim ID - LJUGJYCZM056Oxkdluma ID - VBDPHZBEP022Upknrema ID - OOPAHVFBR506Ghxtxfeo ID - BRMGJAWVK111Efkaeszu ID - OJXSQRUDP684Eaanvbpk ID - PQGRFFUOG531Icakfgsr ID - BCRHWSPXO445Ugcohgiz ID - PFVENFDQE823PHSZMHTFQK [id number] 04:30:27 Test Item Value Reference Range Interpretation Comments HEMOGLOBIN A1C (BEAKER) (test code = 5.8 % 4.3-6.1 368) [employer] ID - [id number] W/PLT COUNT & AUTO [id number] 04:17:15 Test Item Value Reference Range Interpretation [...] PERCENT (BEAKER) (test code = 2801) TROPONIN [id number] 01:16:05 Test Item Value Reference Range Interpretation [...] failure, acidosis, acute neurological disease, and persistent tachyarrhythmia.[employer] ID - [id number] 20:56:12 Test Item Value Reference Range Interpretation Comments POC-GLUCOSE METER 169 mg/dL 70-110 H : Notified RN/MD: TESTED (BEAKER) (test code AT [facility] [address] [place] [address] = 1538) [facility] [address]: [employer]/Techni [place] ID = [id number] for Dottie Collins [id number] 20:43:27 Test Item Value Reference Range Interpretation Comments PARTIAL THROMBOPLASTIN 43.3 seconds 23.0-35.0 H Final Information TIME (BEAKER) (test (Auto Ou tput) code = 760) [id number] 17:13:58 Test Item Value Reference Range Interpretation Comments GLUCOSE RANDOM (BEAKER) (test code 247 mg/dL 70-110 H = 652) [employer] ID - ARTUR [id number] 17:03:16 Test Item Value Reference Range Interpretation [...] failure, acidosis, acute neurological disease, and persistent tachyarrhythmia.[employer] ID - HENRRYLegionella antigen, [id number] 14:05:17 Test Item Value Reference Range Interpretation Comments Legionella Urine Negative - see Negative for L. Antigen (test code comment pneumophi la = 76198-9) serogroup 1 ant igen, suggesting no r ecent or current infe ction with this serog roup. Legionellosis c annot be ruled out si nce other serogroup s and species may cau se disease. [facility], [id number] 14:05:17 Test Item Value Reference Range Interpretation Comments Legionella Urine Negative - see Negative for L. Antigen (test code comment pneumophi la = 07001-8) serogroup 1 ant igen, suggesting no r ecent or current infe ction with this serog roup. Legionellosis c annot be ruled out si nce other serogroup s and species may cau se disease. [facility] Hospital[facility]ion[facility] antigen, [id number] 14:05:17 Test Item Value Reference Range Interpretation Comments Legionella Urine Negative - see Negative for L. Antigen (test code comment pneumophi la = 47916-9) serogroup 1 ant igen, suggesting no r ecent or current infe ction with this serog roup. Legionellosis c annot be ruled out si nce other serogroup s and species may cau se disease. [facility] antigen, [id number] 14:05:17 Test Item Value Reference Range Interpretation Comments Legionella Urine Negative - see Negative for L. Antigen (test code comment pneumophi la = 22692-3) serogroup 1 ant igen, suggesting no r ecent or current infe ction with this serog roup. Legionellosis c annot be ruled out si nce other serogroup s and species may cau se disease. [facility] antigen, [id number] 14:05:17 Test Item Value Reference Range Interpretation Comments Legionella Urine Negative - see Negative for L. Antigen (test code comment pneumophi la = 52224-0) serogroup 1 ant igen, suggesting no r ecent or current infe ction with this serog roup. Legionellosis c annot be ruled out si nce other serogroup s and species may cau se disease. [facility] antigen, [id number] 14:05:17 Test Item Value Reference Range Interpretation Comments Legionella Urine Negative - see Negative for L. Antigen (test code comment pneumophi la = 21980-6) serogroup 1 ant igen, suggesting no r ecent or current infe ction with this serog roup. Legionellosis c annot be ruled out si nce other serogroup s and species may cau se disease. [facility]LEGIONELLA ANTIGEN, [id number] 14:05:17 Test Item Value Reference Range Interpretation Comments L. PNEUMOPHILA Negative - see Negative fo r L. SEROGP 1 UR AG comment pneumophila (BEAKER) (test code serogrou p 1 antigen, = 1156) suggesting no r ecent or current infe ction with this serog roup. Legionellosis c annot be ruled out si nce other serogroup s and species may cau se disease. U/S, RENAL, [id number] 14:05:00Reason for exam:->elevated creatine [facility] 1950 Sex: MFINAL [...] renal ultrasound. No hydronephrosis Signed: Cindy Saucedo [facility] Verified Date/Time: 11/08/2021 14:05:00 Reading Location: [facility] B1 C013Y CT Body Reading Room Strep pneumoniae [id number] 14:04:46 Test Item Value Reference Range Interpretation Comments Strep pneumoniae Presumptive negative Presumptive Antigen (test code = [place] [address]-5) pneumonia - see pneumococcal comment pneumonia - [...] test. Lab Interpretation Normal (test code = 88189-7) [facility] [id number] 14:04:46 Test Item Value Reference Range Interpretation Comments Strep pneumoniae Presumptive negative Presumptive Antigen (test code = [place] [address]-1) pneumonia - see pneumococcal comment pneumonia - [...] test. Lab Interpretation Normal (test code = 82231-3) [facility] [id number] 14:04:46 Test Item Value Reference Range Interpretation Comments Strep pneumoniae Presumptive negative Presumptive Antigen (test code = [place] [address]-3) pneumonia - see pneumococcal comment pneumonia - [...] test. Lab Interpretation Normal (test code = 62761-6) [facility] [id number] 14:04:46 Test Item Value Reference Range Interpretation Comments Strep pneumoniae Presumptive negative Presumptive Antigen (test code = [place] 138[address]-1) pneumonia - see pneumococcal comment pneumonia - [...] test. Lab Interpretation Normal (test code = 23137-9) [facility] [id number] 14:04:46 Test Item Value Reference Range Interpretation Comments Strep pneumoniae Presumptive negative Presumptive Antigen (test code = [place] pneum[place] 275[address]-8) pneumonia - see pneumococcal comment pneumonia - [...] test. Lab Interpretation Normal (test code = 33402-6) [facility] [id number] 14:04:46 Test Item Value Reference Range Interpretation Comments Strep pneumoniae Presumptive negative Presumptive Antigen (test code = [place] 397[address]-1) pneumonia - see pneumococcal comment pneumonia - [...] test. Lab Interpretation Normal (test code = 11185-5) [facility] Center[facility]REP PNEUMONIAE [id number] 14:04:46 Test Item Value Reference Range Interpretation [...] the detection limit of the test. TROPONIN [id number] 12:03:41 Test Item Value Reference Range Interpretation [...] failure, acidosis, acute neurological disease, and persistent tachyarrhythmia.[employer] ID - DSENSONBASIC METABOLIC [id number] 11:54:31 Test Item Value Reference Range Interpretation [...] 1092) DATA TO CALCULA TE ESTIMATED GFR. [employer] ID - DSENSONOperator ID - DSENSONOperator ID - DSENSONOperator ID - DSENSONOperator ID - DSENSONOperator ID - DSENSONOperator ID - DSENSONOperator ID - DSENSONOperator ID - DSENSONOperator ID - DSENSONOperator ID - DSENSONOperator ID - DSENSONOperator ID - [id number] 11:45:04 Test Item Value Reference Range Interpretation Comments PARTIAL THROMBOPLASTIN 44.4 seconds 23.0-35.0 H Final Information TIME (MARLENA) (test (Auto Ou tput) code = 760) POCT-GLUCOSE [id number] 11:43:30 Test Item Value Reference Range Interpretation Comments POC-GLUCOSE METER 141 mg/dL 70-110 H : Notified RN/MD: TESTED (BEVINICIUS) (test code AT [facility] [address] = 1538) [facility] [address]: [employer]/Techni [place] ID = [id number] for Francisco Javier Alec joyner PUL PERF IMAGING, [id number] 09:49:00Unlisted Reason for Exam - Click Yes and Enter Reason Below->No [facility] 1950 Sex: MFINAL REPORT PROCEDURE: LUNG SCAN - perfusion only CPT CODE: 33161 INDICATION: Elevated D-dimer PROTOCOL: 5.8 mCi of [...] Verified Date/Time: 11/08/2021 09:49:42 CT, CHEST, WITHOUT [id number] 09:47:00Unlisted Reason for Exam - Click Yes and Enter Reason Below->No [facility] : 1950 Sex: MFINAL [...] 11/08/2021 09:47:14 RAD, CHEST, 1 VIEW, NON [id number] 08:47:00Reason for exam:->ETT placementShould this be performed at the bedside?->Yes [facility] : 1950 Sex: [...] Ou tput) code = 760) LACTIC ACID, [id number] 05:34:16 Test Item Value Reference Range Interpretation Comments LACTATE BLOOD 1.89 mmol/L See_Comment [Automated me ssage] VENOUS (2) (BEAKER) The syst em which (test code = 2872) generated this result transmitted ref erence range: 0.50-<2. 00. The reference range was not used to interpr et this result as normal/abnormal . [employer] ID - LITOOperator ID - LITOOperator ID - LITOOperator ID - ROSALBA [id number] 05:31:10 Test Item Value Reference Range Interpretation Comments PROCALCITONIN (BEAKER) (test code 0.15 ng/mL <0.05 H = 3036) SEPSIS RISK (ng/mL)Low: 0.05-0.50Intermediate: 0.51-2.00High: >=2.01 Urinalysis with Microscopic If [id number] 05:13:27 Test Item Value Reference Range Interpretation Comments Color, UA (test code = 5778-6) Yellow Clarity, UA (test code = 5767-9) Clear Specific [place], UA (test code = 1.015 1.001-1.035 5811-5) pH, UA (test code = 5803-2) 5.0 5.0-8.0 Protein, UA (test code = 27099-5) Negative Negative Glucose, UA (test code = 365) Negative Negative Ketones, UA (test code = 2514-8) Negative Negative Bilirubin, UA (test code = 77536-4) Negative Negative Blood, UA (test code = 08986-3) Small Negative A Nitrite, UA (test code = 5802-4) Negative Negative Leukocytes, UA (test code = 5799-2) Negative Negative Urobilinogen, UA (test code = 0.2 mg/dL 0.2-1.0 42596-1) Specimen Source (test code = 2795) Lab Interpretation (test code = Abnormal 94730-7) [facility] with Microscopic If [id number] 05:13:27 Test Item Value Reference Range Interpretation Comments Color, UA (test code = 5778-6) Yellow Clarity, UA (test code = 5767-9) Clear Specific [place], UA (test code = 1.015 1.001-1.035 5811-5) pH, UA (test code = 5803-2) 5.0 5.0-8.0 Protein, UA (test code = 97522-5) Negative Negative Glucose, UA (test code = 365) Negative Negative Ketones, UA (test code = 2514-8) Negative Negative Bilirubin, UA (test code = 39804-6) Negative Negative Blood, UA (test code = 93630-7) Small Negative A Nitrite, UA (test code = 5802-4) Negative Negative Leukocytes, UA (test code = 5799-2) Negative Negative Urobilinogen, UA (test code = 0.2 mg/dL 0.2-1.0 32285-8) Specimen Source (test code = 2795) Lab Interpretation (test code = Abnormal 75883-0) [facility] with Microscopic If [id number] 05:13:27 Test Item Value Reference Range Interpretation Comments Color, UA (test code = 5778-6) Yellow Clarity, UA (test code = 5767-9) Clear Specific [place], UA (test code = 1.015 1.001-1.035 5811-5) pH, UA (test code = 5803-2) 5.0 5.0-8.0 Protein, UA (test code = 02241-3) Negative Negative Glucose, UA (test code = 365) Negative Negative Ketones, UA (test code = 2514-8) Negative Negative Bilirubin, UA (test code = 99294-3) Negative Negative Blood, UA (test code = 90068-1) Small Negative A Nitrite, UA (test code = 5802-4) Negative Negative Leukocytes, UA (test code = 5799-2) Negative Negative Urobilinogen, UA (test code = 0.2 mg/dL 0.2-1.0 60315-3) Specimen Source (test code = 2795) Lab Interpretation (test code = Abnormal 17028-7) [facility] with Microscopic If [id number] 05:13:27 Test Item Value Reference Range Interpretation Comments Color, UA (test code = 5778-6) Yellow Clarity, UA (test code = 5767-9) Clear Specific [place], UA (test code = 1.015 1.001-1.035 5811-5) pH, UA (test code = 5803-2) 5.0 5.0-8.0 Protein, UA (test code = 74149-1) Negative Negative Glucose, UA (test code = 365) Negative Negative Ketones, UA (test code = 2514-8) Negative Negative Bilirubin, UA (test code = 05230-6) Negative Negative Blood, UA (test code = 07183-4) Small Negative A Nitrite, UA (test code = 5802-4) Negative Negative Leukocytes, UA (test code = 5799-2) Negative Negative Urobilinogen, UA (test code = 0.2 mg/dL 0.2-1.0 04279-3) Specimen Source (test code = 2795) Lab Interpretation (test code = Abnormal 75093-0) [facility] with Microscopic If [id number] 05:13:27 Test Item Value Reference Range Interpretation Comments Color, UA (test code = 5778-6) Yellow Clarity, UA (test code = 5767-9) Clear Specific [place], UA (test code = 1.015 1.001-1.035 5811-5) pH, UA (test code = 5803-2) 5.0 5.0-8.0 Protein, UA (test code = 17790-2) Negative Negative Glucose, UA (test code = 365) Negative Negative Ketones, UA (test code = 2514-8) Negative Negative Bilirubin, UA (test code = 40602-6) Negative Negative Blood, UA (test code = 80599-6) Small Negative A Nitrite, UA (test code = 5802-4) Negative Negative Leukocytes, UA (test code = 5799-2) Negative Negative Urobilinogen, UA (test code = 0.2 mg/dL 0.2-1.0 77709-3) Specimen Source (test code = 2795) Lab Interpretation (test code = Abnormal 52088-5) [facility] with Microscopic If [id number] 05:13:27 Test Item Value Reference Range Interpretation Comments Color, UA (test code = 5778-6) Yellow Clarity, UA (test code = 5767-9) Clear Specific [place], UA (test code = 1.015 1.001-1.035 5811-5) pH, UA (test code = 5803-2) 5.0 5.0-8.0 Protein, UA (test code = 24603-5) Negative Negative Glucose, UA (test code = 365) Negative Negative Ketones, UA (test code = 2514-8) Negative Negative Bilirubin, UA (test code = 71999-1) Negative Negative Blood, UA (test code = 67251-2) Small Negative A Nitrite, UA (test code = 5802-4) Negative Negative Leukocytes, UA (test code = 5799-2) Negative Negative Urobilinogen, UA (test code = 0.2 mg/dL 0.2-1.0 85456-8) Specimen Source (test code = 2795) Lab Interpretation (test code = Abnormal 68839-4) [facility] WITH MICROSCOPIC IF [id number] 05:13:27 Test Item Value Reference Range Interpretation [...] SOURCE(BEAKER) (test code = 2795) Urinalysis Microscopic [id number] 05:13:21 Test Item Value Reference Range Interpretation Comments RBC, UA (test code = <5 See_Comment [Autom ated message] 799-7) The system [employer] generated this result transmitted ref erence range: /HPF. Th e reference range was not used to int erpret this result as normal/abnormal . WBC, UA (test code = None Seen See_Comment [Autom ated message] 37027-0) The system [employer] generated this result transmitted ref erence range: /HPF. Th e reference range was not used to int erpret this result as normal/abnormal . Bacteria, UA (test Occasional code = 81134-4) SQUAMOUS EPITHELIAL None Seen See_Comment [Automa josh message] (test code = 13460-7) The sy stem which generated this result transmitted ref erence range: /HPF. Th e reference range was not used to int erpret this result as normal/abnormal . HYALINE CASTS (test 0-5 See_Comment [Automa josh message] code = 5796-8) The system [employer] generated this result transmitted ref erence range: /LPF. Th e reference range was not used to int erpret this result as normal/abnormal . [facility] Microscopic [id number] 05:13:21 Test Item Value Reference Range Interpretation Comments RBC, UA (test code = <5 See_Comment [Autom ated message] 799-7) The system [employer] generated this result transmitted ref erence range: /HPF. Th e reference range was not used to int erpret this result as normal/abnormal . WBC, UA (test code = None Seen See_Comment [Autom ated message] 43888-7) The system [employer] generated this result transmitted ref erence range: /HPF. Th e reference range was not used to int erpret this result as normal/abnormal . Bacteria, UA (test Occasional code = 65656-0) SQUAMOUS EPITHELIAL None Seen See_Comment [Automa josh message] (test code = 43651-5) The sy stem which generated this result transmitted ref erence range: /HPF. Th e reference range was not used to int erpret this result as normal/abnormal . HYALINE CASTS (test 0-5 See_Comment [Automa josh message] code = 5796-8) The system [employer] generated this result transmitted ref erence range: /LPF. Th e reference range was not used to int erpret this result as normal/abnormal . [facility] Microscopic [id number] 05:13:21 Test Item Value Reference Range Interpretation Comments RBC, UA (test code = <5 See_Comment [Autom ated message] 799-7) The system [employer] generated this result transmitted ref erence range: /HPF. Th e reference range was not used to int erpret this result as normal/abnormal . WBC, UA (test code = None Seen See_Comment [Autom ated message] 41537-0) The system [employer] generated this result transmitted ref erence range: /HPF. Th e reference range was not used to int erpret this result as normal/abnormal . Bacteria, UA (test Occasional code = 53876-8) SQUAMOUS EPITHELIAL None Seen See_Comment [Automa josh message] (test code = 86191-6) The sy stem which generated this result transmitted ref erence range: /HPF. Th e reference range was not used to int erpret this result as normal/abnormal . HYALINE CASTS (test 0-5 See_Comment [Automa josh message] code = 5796-8) The system [employer] generated this result transmitted ref erence range: /LPF. Th e reference range was not used to int erpret this result as normal/abnormal . [facility] Microscopic [id number] 05:13:21 Test Item Value Reference Range Interpretation Comments RBC, UA (test code = <5 See_Comment [Autom ated message] 799-7) The system [employer] generated this result transmitted ref erence range: /HPF. Th e reference range was not used to int erpret this result as normal/abnormal . WBC, UA (test code = None Seen See_Comment [Autom ated message] 65407-8) The system whic h generated this result transmitted ref erence range: /HPF. Th e reference range was not used to int erpret this result as normal/abnormal . Bacteria, UA (test Occasional code = 63632-7) SQUAMOUS EPITHELIAL None Seen See_Comment [Automa josh message] (test code = 81362-7) The sy stem which generated this result transmitted ref erence range: /HPF. Th e reference range was not used to int erpret this result as normal/abnormal . HYALINE CASTS (test 0-5 See_Comment [Automa josh message] code = 5796-8) The system [employer] generated this result transmitted ref erence range: /LPF. Th e reference range was not used to int erpret this result as normal/abnormal . [facility] Microscopic [id number] 05:13:21 Test Item Value Reference Range Interpretation Comments RBC, UA (test code = <5 See_Comment [Autom ated message] 799-7) The system [employer] generated this result transmitted ref erence range: /HPF. Th e reference range was not used to int erpret this result as normal/abnormal . WBC, UA (test code = None Seen See_Comment [Autom ated message] 52252-0) The system [employer] generated this result transmitted ref erence range: /HPF. Th e reference range was not used to int erpret this result as normal/abnormal . Bacteria, UA (test Occasional code = 45417-2) SQUAMOUS EPITHELIAL None Seen See_Comment [Automa josh message] (test code = 18571-5) The sy stem which generated this result transmitted ref erence range: /HPF. Th e reference range was not used to int erpret this result as normal/abnormal . HYALINE CASTS (test 0-5 See_Comment [Automa josh message] code = 5796-8) The system [employer] generated this result transmitted ref erence range: /LPF. Th e reference range was not used to int erpret this result as normal/abnormal . [facility] Microscopic [id number] 05:13:21 Test Item Value Reference Range Interpretation Comments RBC, UA (test code = <5 See_Comment [Autom ated message] 799-7) The system [employer] generated this result transmitted ref erence range: /HPF. Th e reference range was not used to int erpret this result as normal/abnormal . WBC, UA (test code = None Seen See_Comment [Autom ated message] 89289-8) The system [facility] h generated this result transmitted ref erence range: /HPF. Th e reference range was not used to int erpret this result as normal/abnormal . Bacteria, UA (test Occasional code = 61928-1) SQUAMOUS EPITHELIAL None Seen See_Comment [Automa josh message] (test code = 29115-3) The sy stem which generated this result transmitted ref erence range: /HPF. Th e reference range was not used to int erpret this result as normal/abnormal . HYALINE CASTS (test 0-5 See_Comment [Automa josh message] code = 5796-8) The system [facility] generated this result transmitted ref erence range: /LPF. Th e reference range was not used to int erpret this result as normal/abnormal . [facility]IN[facility]IS [id number] 05:13:21 Test Item Value Reference Range Interpretation Comments RBC UA-MANUAL (BEAKER) (test <5 /HPF code = 1659) WBC UA-MANUAL (BEAKER) (test None Seen /HPF code = 1661) BACTERIA (BEAKER) (test code = Occasional 517) SQUAMOUS EPITHELIAL MANUAL None Seen /HPF (BEAKER) (test code = 1663) HYALINE CASTS MANUAL (BEAKER) 0-5 /LPF (test code = 1665) TROPONIN [id number] 05:01:28 Test Item Value Reference Range Interpretation [...] failure, acidosis, acute neurological disease, and persistent tachyarrhythmia.[employer] ID - LITOBASIC METABOLIC PANEL 2021-11-08 05:00:17 [...] 1092) DATA TO CALCULA TE ESTIMATED GFR. [employer] ID - LITOOperator ID - LITOOperator ID - LITOOperator ID - LITOOperator ID - LITOOperator ID - LITOOperator ID - LITOOperator ID - LITOOperator ID - LITOOperator ID - LITOB-TYPE NATRIURETIC FACTOR (BNP)2021-11-08 05:00:11 Test Item Value Reference Range Interpretation Comments B-TYPE NATRIURETIC PEPTIDE (BEAKER) 480 pg/mL 0-100 H (test code = 700) [employer] ID - LITOCBC W/PLT COUNT & AUTO [id number] 04:56:38 Test Item Value Reference Range Interpretation [...] H PERCENT (BEAKER) (test code = 2801) [id number] 04:53:09 Test Item Value Reference Range Interpretation Comments D-DIMER QUANTITATIVE 5.80 MG/L FEU <0.50 H Final Information (BEAKER) (test code = (Auto Output) 671) REGARDING D-DIMER RESULTS: The 98% NPV (Negative Predictive Value) for DVT/PE exclusion is 0.50 mg/LFEU as suggested by the logistical engineer and as approved by the FDA.PROTHROMBIN TIME/[id number] 04:52:30 Test Item Value Reference Range Interpretation Comments PROTIME (BEAKER) 11.0 seconds 9.3-12.0 Final Infor mation (test code = 759) (Auto Outp ut) INR (BEAKER) (test 1.00 See_Comment Final Inf ormation code = 370) (Auto Output) [Automated mess age] The system [employer] generated this result transmitted ref erence range: <=5.90. The reference range was not used to int erpret this result as normal/abnormal . RECOMMENDED COUMADIN/WARFARIN INR THERAPY RANGESSTANDARD DOSE: 2.0 - 3.0 Includes: PROPHYLAXIS for venous thrombosis, systemic embolization; TREATMENT for venous thrombosis and/or pulmonary embolus.HIGH RISK: Target INR is 2.5-3.5 for patients with mechanical heart valves.HEMOGLOBIN [id number] 04:51:27 Test Item Value Reference Range Interpretation Comments HEMOGLOBIN A1C (BEAKER) (test code = 5.7 % 4.3-6.1 368) [employer] ID - LITOHEPATIC FUNCTION [id number] 04:50:07 Test Item Value Reference Range Interpretation [...] (test code = 31 U/L 5-50 347) [employer] Crafts[employer] ID - LITOOperator ID - LITOOperator ID - LITOOperator ID - LITOOperator ID - LITOOperator ID - LITOOperator ID - [id number] 04:49:45 Test Item Value Reference Range Interpretation Comments MAGNESIUM (BEAKER) (test code = 2.8 mg/dL 1.5-3.0 627) [employer] ID - LITOOperator ID - LITOOperator ID - LITOOperator ID - ROSALBA [id number] 04:46:46 Test Item Value Reference Range Interpretation Comments PHOSPHORUS (BEAKER) (test code = 4.8 mg/dL 2.5-4.5 H 604) [employer] ID - LITOPOCT-GLUCOSE [id number] 04:11:36 Test Item Value Reference Range Interpretation Comments POC-GLUCOSE METER 156 mg/dL 70-110 H : TESTED A T SLSL 1317 (BEAKER) (test code [address], = 1538) [facility] [place] 77 478: Command Post Craftsman/Techni [place] ID = [id number] for Real Lei RAD, ABDOMEN/KUB 1 VIEW [id number] 04:02:00Reason for exam:->NG tube placementCHI [facility] : 1950 Sex: [...] on 204:02 AMRAD, CHEST, 1 VIEW, NON [id number] 03:57:00Reason for exam:->AHRFShould this be performed at the bedside?->Yes [facility] : 1950 Sex: [...] contours. Additional findings: None. Signed: Rigo Whaley [facility] Verified Date/Time: 11/08/2021 03:57:41 Blood gas, [id number] 03:54:11 Test Item Value Reference Range Interpretation [...] 75 Lab Interpretation Abnormal (test code = 22319-5) [facility] [id number] 03:54:11 Test Item Value Reference Range Interpretation [...] 75 Lab Interpretation Abnormal (test code = 68859-1) [facility] gas, [id number] 03:54:11 Test Item Value Reference Range Interpretation [...] 75 Lab Interpretation Abnormal (test code = 58745-1) [facility] [id number] 03:54:11 Test Item Value Reference Range Interpretation [...] 75 Lab Interpretation Abnormal (test code = 19640-1) [facility], [id number] 03:54:11 Test Item Value Reference Range Interpretation [...] 75 Lab Interpretation Abnormal (test code = 51662-0) [facility] gas, [id number] 03:54:11 Test Item Value Reference Range Interpretation [...] 75 Lab Interpretation Abnormal (test code = 46108-1) [facility] GAS, [id number] 03:54:11 Test Item Value Reference Range Interpretation [...]
[2022-12-09] MEDS ORDERED: ALBUTEROL 2.5 MG/3 ML NEB SOL ONE (21:14)
[2022-12-09] MEDS ORDERED: METHYLPREDNISOLONE 125 MG INJ ONE (21:14)
[2022-12-09] MEDS ORDERED: MORPHINE 2 MG/ML SYR ONE (21:14)
[2022-12-09] MEDS ORDERED: ONDANSETRON 4 MG/2 ML VIAL ONE (21:15)
[2022-12-09] MEDS ORDERED: IPRATROPIUM BROM 0.5MG/2.5ML ONE (21:15)
--- NOTE | 2022-12-09 21:44 | RAD REPORT ---
EXAM DESCRIPTION: RAD - Chest Single View - 12/09/2022 9:36 pm CLINICAL HISTORY: COPD Chest pain. COMPARISON: 11/25/2022 FINDINGS: Portable technique limits examination quality. Moderately severe left-sided lung opacities are present probably asymmetric pulmonary edema or possib ly pneumonia. Small to moderate right pleural effusion appears similar to the comparative study. The heart is moderately enlarged. Dual lead pacer/defibrillator device present.
[2022-12-09 21:54] LABS: Absolute Lymphocytes (CBC) 0.6 K/uL (0.7-4.9); Hematocrit 27.9 % (39.6-49.0); Lymphocytes % 3.9 % (15.3-44.8); MCV 90.2 fL (80-100); MPV 8.5 fL (7.6-11.3)
[2022-12-09 22:03] LABS: Protime INR 2.12
[2022-12-09 22:12] LABS: Albumin 2.9 g/dL (3.4-5.0); Bilirubin Direct 0.3 mg/dL (0-0.2); Bilirubin Indirect, Calculated 0.8 mg/dL (0.2-0.8); Bilirubin Total 1.1 mg/dL (0.2-1.0); Magnesium 2.8 mg/dL (1.6-2.4); Potassium 4.1 mEq/L (3.5-5.1)
--- NOTE | 2022-12-09 22:24 | RAD REPORT ---
EXAM DESCRIPTION: CT - Thorax Wo Con CLINICAL HISTORY: Chest pain COUGH COMPARISON: Thorax Wo Con dated 11/17/2022; Chest Single View dated 12/09/2022 FINDINGS: Bilateral ground-glass opacity is seen greatest in the left upper lobe, probably asymmetri c pulmonary edema. Atelectasis is present in the right lung base. Moderate to large left pleural effu oscar. No pneumothorax. No axillary, mediastinal or hilar adenopathy. Pacer wires are present. No fractures are seen. No gross upper abdominal finding. All CT scans are performed using dose optimization technique as appropriate and may include automated exposure control or mA/KV adjustment according to patient size. IMPRESSION: Moderate to large left pleural effusion. Probable asymmetric pulmonary edema.
[2022-12-09 22:39] LABS: Troponin High Sensitivity 120.1 pg/mL (<58.9)
[2022-12-10] MEDS ORDERED: CEFTRIAXONE 1000 MG/VIAL ONE (00:11)
[2022-12-10] MEDS ORDERED: NA CHLORIDE 0.9% 250 ML ONE (00:11)
[2022-12-10] MEDS ORDERED: WATER FOR INJ,STERILE 10 ML ONE (00:11)
[2022-12-10] MEDS ORDERED: AZITHROMYCIN 500 MG INJ IVPB ONE (00:11)
--- NOTE | 2022-12-10 00:25 | P.HP ---
Certification for Inpatient Patient admitted to: Inpatient With expected LOS: >2 Midnights Patient will require the following post-hospital care: None Practitioner: I am a practitioner with admitting privileges, knowledge of patient current condition, hospital course, and medical plan of care. Services: Services provided to patient in accordance with Admission requirements found in Title 42 Section 412.3 of the Code of Federal Regulations Patient History Date of Service: 12/10/22 Primary Care Provider: Tera Reason for admission: Large Pleural Effusion, Hypoxia History of Present Illness: Mr. Chow is a 72 year old male with a past medical history significant for COPD, paroxysmal atrial fibrillation on eliquis, chronic systolic congestive heart failure s/p AICD 2 weeks ago, coronary artery disease, hypertension, and chronic kidney disease stage III who presented to the emergency department with complaints of shortness of breath. He requires 2L NC at baseline but has had to increase to 5L over the past few days. Today his chest CT showed " Moderate to large left pleural effusion. Probable asymmetric pulmonary edema." His labs are not significantly changed from baseline. Will admit for further management. Allergies No Known Allergies Allergy (Verified 06/14/22 22:26) Home medications list reviewed: Yes Home Medications: Albuterol Sulfate [Albuterol Sulfate Hfa] 1 puff IH DAILY 02/05/22 Aspirin [Aspirin EC] 81 mg PO DAILY 04/05/22 Clopidogrel Bisulfate [Plavix] 75 mg PO DAILY 04/05/22 Metoprolol Tartrate 25 mg PO BID 04/05/22 Apixaban [Eliquis] 5 mg PO BID #60 tab 04/09/22 Fluticasone/Salmeterol [Advair 250-50 Diskus] 1 each IH BID #1 kit 05/13/22 Furosemide [Lasix] 80 mg PO DAILY 06/14/22 Rosuvastatin Calcium [Crestor] 20 mg PO BEDTIME 06/14/22 Buspirone HCl [Buspar*] 10 mg PO BID #60 tab 06/20/22 Theophylline Anhydrous [Devaughn-24] 200 mg PO BID 60 Days #60 tab 06/20/22 Albuterol Neb [Proventil 0.083% Neb Soln] 2.5 mg IH Q6H PRN #120 amp 06/23/22 Amlodipine [Norvasc*] 10 mg PO DAILY #30 tab 06/23/22 Ipratropium Neb [Atrovent*] 0.5 mg NEB G4RODAO #120 amp 06/23/22 Nebulizer 1 each IN QID #1 kit 06/23/22 Amiodarone HCl [Cordarone*] 400 mg PO BID tab 11/24/22 Urea [Ure-Na] 30 gm PO DAILY #30 packet 11/24/22 predniSONE [Deltasone*] 10 mg PO BID #10 tab 11/24/22 - Past Medical/Surgical History Diabetic: No -: HTN -: COPD -: HTN -: CHF -: CKD followed by Dr. Roy -: CAD -: A. fib on chronic anticoagulation -: heart stent -: Heart cath CAD -: Pacemaker/defibrillator Psychosocial/ Personal History: Patient lives at [facility]. - Family History Father -: Heart disease Notes: Heart attack Mother -: Lung disease Notes: COPD - Social History Smoking Status: Current every day smoker Alcohol use: Yes CD- Drugs: No Caffeine use: Yes Place of Residence: [place] Review of Systems Respiratory: Shortness of Breath Physical Examination - Vital Signs Temperature: 98 F Blood Pressure: 154/103 Pulse: 72 Respirations: 18 Pulse Ox (%): 94 (5L NC) - Physical Exam General: Alert, In no apparent distress HEENT: Atraumatic, EOMI, Sclerae nonicteric Neck: Supple, 2+ carotid pulse no bruit Respiratory: Diminished, Crackles/rales Cardiovascular: Regular rate/rhythm, Normal S1 S2 Gastrointestinal: Normal bowel sounds, No tenderness Musculoskeletal: No tenderness Integumentary: No rashes Neurological: Normal speech, Normal affect - Studies Laboratory Data (last 24 hrs) 12/09/22 21:20: PT 23.3 H, INR 2.12, APTT 27.8 12/09/22 21:20: WBC 15.90 H, Hgb 9.0 L, Hct 27.9 L, Plt Count 180 12/09/22 21:20: Sodium 137, Potassium 4.1, BUN 84 H, Creatinine 2.63 H, Glucose 156 H, Magnesium 2.8 H, Total Bilirubin 1.1 H, AST 27, ALT 23, Alkaline Phosphatase 75, Lipase 30 Assessment and Plan - Problems (Diagnosis) (1) Pleural effusion Current Visit: Yes Status: Acute (2) Acute on chronic respiratory failure with hypoxia Current Visit: Yes Status: Acute (3) CHF (congestive heart failure) Current Visit: Yes Status: Chronic Qualifiers: Heart failure type: systolic Heart failure chronicity: acute on chronic Qualified Code(s): I50.23 - Acute on chronic systolic (congestive) heart failure (4) CAD (coronary artery disease) Current Visit: Yes Status: Chronic Qualifiers: Coronary Disease-Associated Artery/Lesion type: [place] artery [place] vs. transplanted heart: [place] heart Associated angina: without angina Qualified Code(s): I25.10 - Atherosclerotic heart disease of [place] coronary artery without angina pectoris (5) CKD (chronic kidney disease) stage 3, GFR 30-59 ml/min Current Visit: Yes Status: Chronic Qualifiers: Chronic kidney disease stage 3 subtype: stage 3b (GFR 30-44) Qualified Code(s): N18.32 - Chronic kidney disease, stage 3b (6) HTN (hypertension) Current Visit: Yes Status: Chronic Qualifiers: Hypertension type: primary hypertension Qualified Code(s): I10 - Essential (primary) hypertension (7) Troponin level elevated Current Visit: Yes Status: Acute - Plan Patient is admitted for further management of acute on chronic hypoxic respiratory failure secondary to large left pleural effusion. NPO. Will likely undergo thoracentesis tomorrow. O2 requirement up to 5L from 2L. Troponin is elevated, which is chronic. Will trend. Monitor on telemetry. Renal function appears at baseline as well. AICD placed at [facility] on 12/07. There is a moderate to large hematoma around implantation. Do not suspect an active infection at this time. Blood cultures were obtained in ED. No antibiotics administered. Resume home eliquis. He is still a daily smoker. Cessation advised. Nicoderm patch provided. Discharge Plan: Intermediate Plan to discharge in: Greater than 2 days - Advance Directives Does patient have a Living Will: No Does patient have a Durable POA for Healthcare: No - Code Status/Comfort Care Code Status Assessed: Yes Code Status: Full Code Physician Review: Patient Assessed, Agree with Above Assessment and Plan Critical Care: No Time Spent Managing Pts Care (In Minutes): 50
--- NOTE | 2022-12-10 00:28 | ER ---
Nurse's Notes [facility] Name: Gabo Chow Sr Age: 72 yrs Sex: Male : 1950 Arrival Date: 12/09/2022 Time: 20:44 Bed 5 Private MD: Diagnosis: NSTEMI, elevated troponin, left pleural effusion, left chest wall hematoma, postoperative hematoma, dyspnea on exertion, pulmonary edema, worsening chronic kidney disease, acute on Chronic renal insufficiency, generalized weakness, physical deconditioning Presentation: 12/09 20:52 Chief complaint: DERIC Durán from [place] called stating pt is a 72M, alert and vc1 oriented, non ambulatory as of lately that has become more anxious and felt the need to return to the ER. Pt oxygen saturation was 92-94% on 5L nc. Pt usually uses 2 L but yesterday had to be bumped up to 5L. 21:12 Coronavirus screen: Vaccine status: Patient reports receiving the 2nd dose of the covid vc1 vaccine. 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 in the last 14 days. At this time, the client does not indicate any symptoms associated with coronavirus-19. Ebola Screen: Patient negative for fever greater than or equal to 101.5 degrees Fahrenheit, and additional compatible Ebola Virus Disease symptoms Patient denies exposure to infectious person. Patient denies travel to an Ebola-affected area in the 21 days before illness onset. No symptoms or risks identified at this time. 21:14 Initial Sepsis Screen: Does the patient meet any 2 criteria? No. Patient's initial as6 sepsis screen is negative. Does the patient have a suspected source of infection? No. Patient's initial sepsis screen is negative. Risk Assessment: Do you want to hurt yourself or someone else? Patient reports no desire to harm self or others. Onset of symptoms was December 09, 2022. 21:14 Method Of Arrival: EMS: [facility] as6 21:14 Acuity: ALLI 2 as6 Historical: - Allergies: 21:13 No Known Allergies; vc1 - Home Meds: 21:13 Advair Diskus 250-50 mcg/dose Inhl Blister, With Inhalation Device 2 times per day vc1 [Active]; Albuterol Inhl [Active]; albuterol sulfate 1.25 mg/3 mL Inhl Solution for Nebulization every 6 hours, prn [Active]; amiodarone 400 mg Oral tablet every 12 hours [Active]; amlodipine 10 mg tablet daily [Active]; amlodipine oral [Active]; apixaban 5 mg Oral tablet every 12 hours [Active]; aspirin 81 mg Oral capsule daily [Active]; Aspirin Oral [Active]; Atrovent Inhl every 6 hours [Active]; buspirone 10 mg Oral tablet 2 times per day [Active]; carvedilol Oral [Active]; clopidogrel 75 mg Oral tablet daily [Active]; clopidogrel Oral [Active]; fluticasone [Active]; Lasix 80 mg Oral tablet daily [Active]; Lasix Oral [Active]; lisinopril Oral [Active]; metoprolol tartrate 25 mg Oral tablet 2 times per day [Active]; prednisone 1 mg oral tablet [Active]; rosuvastatin 20 mg Oral tablet nightly [Active]; theophylline 200 mg Oral Capsule, ER 24 hr every 12 hours [Active]; - PMHx: 21:15 CHF; Hypertension; Myocardial infarction; AR; HTN; COPD; as6 21:13 CHF; COPD; HTN; Hypertension; AR; Myocardial infarction; vc1 - PSHx: 21:15 heart stent; Stented artery; as6 21:13 heart stent; Stented artery; Pacemaker; vc1 - Immunization history:: Adult Immunizations up to date, Client reports receiving the 2nd dose of the Covid vaccine. - Social history:: Smoking status: Patient reports the use of cigarette tobacco products, smokes one-half pack cigarettes per day. - Family history:: not pertinent. Screenin:[birth year] [facility] ED Fall Risk Assessment (Adult) Score/Fall Risk Level 0 - 2 = Low Risk. Abuse as6 screen: Denies threats or abuse. Denies injuries from another. Nutritional screening: No deficits noted. Tuberculosis screening: No symptoms or risk factors identified. Assessment: 20:45 General: Appears ill, Behavior is calm, cooperative. Pain: Denies pain. Neuro: Level of as6 Consciousness is awake, alert, obeys commands, Oriented to person, place, time, situation. Cardiovascular: Capillary refill < 3 seconds. Respiratory: Respiratory effort is even, labored, Respiratory pattern is Breath sounds with crackles bilaterally. GI: No deficits noted. No signs and/or symptoms were reported involving the gastrointestinal system. : No deficits noted. No signs and/or symptoms were reported regarding the genitourinary system. Derm: Bruising that is bright red, dark purple, on chest and left arm. Musculoskeletal: Reports non ambulatory. 22:34 Reassessment: pt has no complaints or concerns at this time. as6 Vital Signs: 20:54 BP 145 / 94; Pulse 74; Resp 24 S; Temp 98(O); Pulse Ox 93% on 4 lpm NC; Pain 0/10; as6 22:35 BP 119 / 77; Pulse 67; Resp 18; Pulse Ox 92% on 5 lpm NC; as6 23:50 BP 154 / 103; Pulse 72; Resp 18 S; Pulse Ox 90% on 5 lpm NC; as6 12/10 01:00 BP 105 / 70; Pulse 71; Resp 15 S; Pulse Ox 97% on 5 lpm NC; as6 12/09 20:54 Pain Scale: Adult as6 ED Course: 12/09 20:44 Patient arrived in ED. jj6 20:51 Niko Batista MD is Attending Physician. sp4 20:52 Billy Solares, DERIC is Primary Nurse. as6 20:52 Arm band placed on. as6 20:54 Bed in low position. Call light in reach. Side rails up X2. Client placed on continuous as6 cardiac and pulse oximetry monitoring. NIBP monitoring applied. 21:15 Triage completed. as6 21:20 Inserted saline lock: 20 gauge in right antecubital area, using aseptic technique. rv Blood collected. 21:20 First set of blood cultures drawn by me. rv 21:38 XRAY CXR (1 view) In Process Unspecified. EDMS 22:07 CT Chest Wo Con In Process Unspecified. EDMS 22:36 Notified ED physician of a critical lab result(s). troponin 132. kl 12/10 00:26 Evangelist Carter MD is Hospitalizing Provider. sp4 01:47 No provider procedures requiring assistance completed. Patient admitted, IV remains in as6 place. Administered Medications: 12/09 20:21 Drug: Ondansetron IVP 4 mg Route: IVP; Site: right antecubital; rv 12/10 01:46 Follow up: Response: No adverse reaction as6 12/09 21:16 Drug: Albuterol Inhalation 2.5 mg Route: Inhalation; as6 12/10 01:47 Follow up: Response: No adverse reaction as6 12/09 21:16 Drug: Ipratropium Inhalation Aerosol 0.5 mg Route: Inhalation; as6 12/10 01:47 Follow up: Response: No adverse reaction as6 12/09 21:21 Drug: MethylPrednisoLONE IVP 125 mg Route: IVP; Site: right antecubital; rv 12/10 01:47 Follow up: Response: No adverse reaction as6 00:15 Drug: Rocephin - Rocephin (cefTRIAXone) IVPB 1 grams Route: IVPB; Infused Over: 30 rv mins; Site: right antecubital; 01:46 Follow up: Response: No adverse reaction; IV Status: Completed infusion; IV Intake: [id number] 00:46 Drug: Zithromax IVPB 500 mg Route: IVPB; Infused Over: 1 hrs; Site: right antecubital; rv 01:46 Follow up: Response: No adverse reaction; IV Status: Completed infusion; IV Intake: as6 250ml 00:55 Not Given (Patient Refused): morphine IVP or IV 2 mg IVP once over 4 mins as6 01:23 Drug: Albumin IVPB 25 grams Volume: 100 ml; Route: IVPB; Site: right antecubital; as6 01:46 Follow up: Response: No adverse reaction; IV Status: Completed infusion; IV Intake: [id number] 01:28 Drug: Albumin IVPB 25 grams Volume: 100 ml; Route: IVPB; Site: right antecubital; as6 01:46 Follow up: Response: No adverse reaction; IV Status: Completed infusion; IV Intake: [id number] Medication: 01:47 VIS not applicable for this client. as6 Intake: 01:46 IV: 50ml; Total: 50ml. as6 01:46 IV: 50ml; Total: 100ml. as6 01:46 IV: 250ml; Total: 350ml. as6 01:46 IV: 50ml; Total: 400ml. as6 Outcome: 00:27 Decision to Hospitalize by Provider. sp4 01:47 Admitted to Med/surg accompanied by tech, via stretcher, room 224, with oxygen, with as6 chart, Report called to Jackie LEOS 01:47 Condition: stable 01:47 Instructed on the need for admit. 01:48 Patient left the ED. as6 Signatures: Dispatcher [employer] Jyoti Bello RN Kolby Del Cid RN RN rv Jeffries, Jennifer jj6 Billy Solares RN RN as6 Cora Monroy RN RN vc1 Niko Batista MD MD sp4
--- NOTE | 2022-12-10 00:28 | EDPHYS ---
Physician Documentation [facility] Name: Gabo Chow Sr Age: 72 yrs Sex: Male : 1950 Arrival Date: 12/09/2022 Time: 20:44 Bed 5 Private MD: ED Physician Niko Batista HPI: 12/09 20:51 This 72 yrs old Male presents to ER via Unassigned with complaints of sp4 Shortness Of Breath, Post Surgical Pain. 23:59 Very pleasant 72-year-old patient presents with worsening shortness of breath over the sp4 course of the last week, patient has a history of left chest wall pacemaker defibrillator. Patient's family reports worsening dyspnea on exertion at the correction. Patient was sent here with EMS from the correction for worsening shortness of breath also wheezing from the puncture wound from posterior back. There is also moderate to large size hematoma around the recent pacemaker implantation. Patient has extensive past medical history consistent with chronic COPD, paroxysmal atrial fibrillation, CHF, coronary artery disease, hypertension, chronic kidney disease stage III,. 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 Carter. Last admission here at 11/25/2022. For COPD and CHF exacerbation. Patient was managed for acute on chronic CHF type II non-ST elevated VT, coronary artery disease, hypertension, dyslipidemia, COPD exacerbation. Also active tobacco use ejection fraction 35%. Patient was managed with aspirin, Crestor, clopidogrel, metformin, Lasix. Possible sepsis was also considered secondary to pneumonia. Cardiology recommended AICD placement for chronic atrial fibrillation, patient was transferred to [facility] on 11/28/2022 where he had implanted AICD.. Patient states his AICD was implanted on 12/07/2022. . Historical: - Allergies: 21:13 No Known Allergies; vc1 - Home Meds: 21:13 Advair Diskus 250-50 mcg/dose Inhl Blister, With Inhalation Device 2 times per day vc1 [Active]; Albuterol Inhl [Active]; albuterol sulfate 1.25 mg/3 mL Inhl Solution for Nebulization every 6 hours, prn [Active]; amiodarone 400 mg Oral tablet every 12 hours [Active]; amlodipine 10 mg tablet daily [Active]; amlodipine oral [Active]; apixaban 5 mg Oral tablet every 12 hours [Active]; aspirin 81 mg Oral capsule daily [Active]; Aspirin Oral [Active]; Atrovent Inhl every 6 hours [Active]; buspirone 10 mg Oral tablet 2 times per day [Active]; carvedilol Oral [Active]; clopidogrel 75 mg Oral tablet daily [Active]; clopidogrel Oral [Active]; fluticasone [Active]; Lasix 80 mg Oral tablet daily [Active]; Lasix Oral [Active]; lisinopril Oral [Active]; metoprolol tartrate 25 mg Oral tablet 2 times per day [Active]; prednisone 1 mg oral tablet [Active]; rosuvastatin 20 mg Oral tablet nightly [Active]; theophylline 200 mg Oral Capsule, ER 24 hr every 12 hours [Active]; - PMHx: 21:15 CHF; Hypertension; Myocardial infarction; VT; HTN; COPD; as6 21:13 CHF; COPD; HTN; Hypertension; VT; Myocardial infarction; vc1 - PSHx: 21:15 heart stent; Stented artery; as6 21:13 heart stent; Stented artery; Pacemaker; vc1 - Immunization history:: Adult Immunizations up to date, Client reports receiving the 2nd dose of the Covid vaccine. - Social history:: Smoking status: Patient reports the use of cigarette tobacco products, smokes one-half pack cigarettes per day. - Family history:: not pertinent. ROS: 23:59 Constitutional: Negative for fever, chills, and weight loss, positive for generalized sp4 weakness Eyes: Negative for injury, pain, redness, and discharge, ENT: Negative for injury, pain, and discharge, Neck: Negative for injury, pain, and swelling, Cardiovascular: Negative for chest pain, palpitations, and edema, positive for chest wall hematoma left anterior lateral posterior chest wall from recent AICD implantation. Respiratory: Positive for dyspnea on exertion, dyspnea, low oxygen saturation at the correction, cough, positive for persistent tobacco use Abdomen/GI: Negative for abdominal pain, nausea, vomiting, diarrhea, and constipation, Back: Negative for injury and pain, : Negative for injury, bleeding, discharge, and swelling, MS/Extremity: Negative for injury and deformity, Skin: Negative for injury, rash, positive for extensive left chest wall hematoma left lateral chest wall hematoma posterior chest wall hematoma with tissue fluid oozing from the puncture wound posterior chest Neuro: Negative for headache, weakness, numbness, tingling, and seizure, Psych: Negative for depression, anxiety, Allergy/Immunology: Negative for hives, rash, and allergies Endocrine: Negative for neck swelling, polydipsia, polyuria, polyphagia, and weight changes Hematologic/Lymphatic: Negative for swollen nodes, abnormal bleeding, and unusual bruising Exam: 12/10 00:16 Constitutional: This is a well developed, well nourished patient who is awake, alert, sp4 ill-appearing male, toxic appearing, generalized weakness, extensive left chest wall hematoma, left shoulder hematoma, hematoma below the AICD, nonambulatory at this time, moderate physical deconditioning Head/Face: Normocephalic, atraumatic. Eyes: Pupils equal round and reactive to light, extra-ocular motions intact. Lids and lashes normal. Conjunctiva and sclera are not injected. Cornea within normal limits. Periorbital areas with no swelling, redness, or edema. ENT: Nares patent. No nasal discharge, no septal abnormalities noted. Tympanic membranes are normal and external auditory canals are clear. Oropharynx with no redness, swelling, or masses, exudates, or evidence of obstruction, uvula midline. Mucous membranes moist. Neck: Trachea midline, no thyromegaly or masses palpated, and no cervical lymphadenopathy. Supple, full range of motion without nuchal rigidity, or vertebral point tenderness. Chest/axilla: Normal chest wall appearance and motion. Nontender with no deformity. No lesions are appreciated. There is extensive left lateral chest wall hematoma from recent AICD implantation. Cardiovascular: Regular rate and rhythm with a normal S1 and S2. No gallops, murmurs, or rubs. Normal PMI, no JVD. No pulse deficits. Respiratory: Marked decrease left lateral lung sounds, left basilar lung sounds are absent, extensive chest wall hematoma left side, cough on exam, no crackles or wheezing on exam. Abdomen/GI: Soft, non-tender, with normal bowel sounds. No distension or tympany. No guarding or rebound. No evidence of tenderness throughout. Back: No spinal tenderness. No costovertebral tenderness. Male : Normal genitalia with no discharge or lesions. Normal uncircumcised male, incontinent of urine. Skin: Warm, dry with normal turgor. Normal color with no rashes, no lesions, and no evidence of cellulitis. MS/ Extremity: Pulses equal, no cyanosis. Neurovascular intact. Full, normal range of motion. Neuro: Awake and alert, GCS 15, oriented to person, place, time, and situation. Cranial nerves II-XII grossly intact. Motor strength 5/5 in all extremities. Sensory grossly intact. Psych: Awake, alert, with orientation to person, place and time. Behavior, mood, and affect are within normal limits 00:16 ECG was reviewed by the Attending Physician. NegativeEKG reveals sinus rhythm at the sp4 rate of 65, left bundle branch block, STEMI by Sgarbossa criteria EKG time 210 Vital Signs: 12/09 20:54 BP 145 / 94; Pulse 74; Resp 24 S; Temp 98(O); Pulse Ox 93% on 4 lpm NC; Pain 0/10; as6 22:35 BP 119 / 77; Pulse 67; Resp 18; Pulse Ox 92% on 5 lpm NC; as6 23:50 BP 154 / 103; Pulse 72; Resp 18 S; Pulse Ox 90% on 5 lpm NC; as6 12/10 01:00 BP 105 / 70; Pulse 71; Resp 15 S; Pulse Ox 97% on 5 lpm NC; as6 12/09 20:54 Pain Scale: Adult as6 MDM: 12/09 20:54 Patient medically screened. sp4 06 00:16 Differential diagnosis: Anxiety Reaction asthma, Bronchitis CHF exacerbation, Chronic sp4 Obstructive Pulmonary Disease Myocardial Infarction pneumonia, Pneumothorax pulmonary edema, Sepsis. Antibiotic administration: Administered Rocephin and Zithromax.. Data reviewed: vital signs, nurses notes, [facility] records, diagnostic data from outside facility, old medical records, lab test result(s), EKG, radiologic studies, CT scan, plain films. 00:16 ED course: Patient's work-up -old medical record review indicates that patient is on sp4 aspirin 81 mg a day, also Eliquis 5 mg twice a day. Additionally metoprolol, albuterol, fluticasone, Lasix, Crestor, buspirone, theophylline, albuterol, amlodipine, nebulized ipratropium, amiodarone, lastly it says patient is on Plavix 75 mg.. . ED course: 2D patient's x-ray revealed moderate left-sided lung opacification consistent with pulmonary edema or possible pneumonia, moderate the right pleural effusion. Cardiomegaly. Dual-lead defibrillator pacer present. CT chest revealed moderate to large left pleural effusion. There is asymmetric pulmonary edema, groundglass opacification left upper lobe, atelectasis left lung base, moderate to large left pleural effusion, no pneumothorax, at this time patient warrants admission for left thoracentesis to drain pleural effusion to improve respiratory dynamics. Patient had is baseline anemia hemoglobin 9, also blood sugar 156, creatinine 2.6 worsened from prior creatinine 1.87 there is also elevated WBC 15.9. Elevated troponin 120. Elevated BNP 30,000 patient warrants admission for further assessment and left thoracentesis. Dr. Carter of pulmonology has accepted consult.. 12/09 20:52 Order name: BMP; Complete Time: 23: [place] 12/09 20:52 Order name: Blood Culture Adult (2) [facility] 12/09 20:52 Order name: CBC with Diff; Complete Time: 23: [place] 12/09 20:52 Order name: CPK; Complete Time: 23: 12/09 20:52 Order name: Hepatic Function; Complete Time: 23: [place] 12/09 20:52 Order name: Lipase; Complete Time: 23: 12/09 20:52 Order name: Magnesium; Complete Time: 23: 12/09 20:52 Order name: NT PRO-BNP; Complete Time: 23:10 [place] 12/09 20:52 Order name: PT-INR; Complete Time: 23:10 [place] 12/09 20:52 Order name: Ptt, Activated; Complete Time: 23: 12/09 20:52 Order name: Troponin HS; Complete Time: 23:10 12/09 20:53 Order name: ABG [place] 12/09 20:52 Order name: XRAY CXR (1 view); Complete Time: 23:10 [place] 12/09 20:53 Order name: CT Chest Wo Con; Complete Time: 23: 12/09 23:19 Order name: ARTERIAL BLOOD GAS EDKY 12/09 20:52 Order name: EKG; Complete Time: 21:05 [place] 12/09 20:52 Order name: Cardiac monitoring; Complete Time: 20:55 [place] 12/09 20:52 Order name: EKG - Nurse/Tech; Complete Time: 21:09 sp4 12/09 20:52 Order name: IV Saline Lock; Complete Time: 21:42 sp4 12/09 20:52 Order name: Labs collected and sent; Complete Time: 21:42 sp4 12/09 20:52 Order name: O2 Per Protocol; Complete Time: 20:55 sp4 12/09 20:52 Order name: O2 Sat Monitoring; Complete Time: 20:55 sp4 EC:16 Rate is 65 beats/min. Rhythm is regular, Sinus Rhythm. No ST changes noted. Clinical sp4 impression: No evidence of ischemia. Interpreted by me. Administered Medications: 12/09 20:21 Drug: Ondansetron IVP 4 mg Route: IVP; Site: right antecubital; rv 12/10 01:46 Follow up: Response: No adverse reaction as6 12/09 21:16 Drug: Albuterol Inhalation 2.5 mg Route: Inhalation; as12/10 01:47 Follow up: Response: No adverse reaction as12/09 21:16 Drug: Ipratropium Inhalation Aerosol 0.5 mg Route: Inhalation; as12/10 01:47 Follow up: Response: No adverse reaction as12/09 21:21 Drug: MethylPrednisoLONE IVP 125 mg Route: IVP; Site: right antecubital; rv 16 01:47 Follow up: Response: No adverse reaction as6 00:15 Drug: Rocephin - Rocephin (cefTRIAXone) IVPB 1 grams Route: IVPB; Infused Over: 30 rv mins; Site: right antecubital; 01:46 Follow up: Response: No adverse reaction; IV Status: Completed infusion; IV Intake: 57pred9 00:46 Drug: Zithromax IVPB 500 mg Route: IVPB; Infused Over: 1 hrs; Site: right antecubital; rv 01:46 Follow up: Response: No adverse reaction; IV Status: Completed infusion; IV Intake: as6 250ml 00:55 Not Given (Patient Refused): morphine IVP or IV 2 mg IVP once over 4 mins as6 01:23 Drug: Albumin IVPB 25 grams Volume: 100 ml; Route: IVPB; Site: right antecubital; as6 01:46 Follow up: Response: No adverse reaction; IV Status: Completed infusion; IV Intake: 00wply5 01:28 Drug: Albumin IVPB 25 grams Volume: 100 ml; Route: IVPB; Site: right antecubital; as6 01:46 Follow up: Response: No adverse reaction; IV Status: Completed infusion; IV Intake: [id number] Disposition Summary: 12/10/22 00:27 Hospitalization Ordered Hospitalization Status: Inpatient Admission sp4 Provider: Evangelist Carter [facility] sp4 Condition: Serious sp4 Problem: new sp4 Symptoms: have improved sp4 Bed/Room Type: Standard sp4 Room Assignment: 202(12/10/22 00:54) sb4 Diagnosis - NSTEMI, elevated troponin, left pleural effusion, left chest wall hematoma, sp4 postoperative hematoma, dyspnea on exertion, pulmonary edema, worsening chronic kidney disease, acute on Chronic renal insufficiency, generalized weakness, physical deconditioning Forms: - Medication Reconciliation Form sp4 - SBAR form sp4 Signatures: Dispatcher [employer] EDKolby Hamilton RN RN Billy Cevallos RN RN as6 Cora Monroy RN RN vcMonica Ring, PAErrol PAErrol sb4 Niko Batista MD MD sp4 Corrections: (The following items were deleted from the chart) 00:17 06/15 23:59 Constitutional: Negative for fever, chills, and weight loss, positive for sp4 generalized weakness sp4 12/10 00:54 00:27 sp4 sb4
[2022-12-10] MEDS ORDERED: ALBUMIN HUMAN 25% 100 ML IV ONE (00:49)
[2022-12-10] MEDS ORDERED: ACETAMINOPHEN 500 MG TAB PO PRN (01:47)
[2022-12-10 02:34] VITALS: BMI 21.8
[2022-12-10 03:20] LABS: Blood Gas Oxyhemoglobin 92.8 % (94-97); Blood O2 Saturation 95.9 % (92-98.5)
[2022-12-10 03:21] LABS: Arterial Blood Carboxyhemoglob 1.7 % (0-1.5); Blood Gas RHB 9.2 %
[2022-12-10] MEDS: ALBUTEROL 2.5 MG/3 ML NEB SOL NEB PRN ×2 (03:36→20:50)
[2022-12-10 04:26] LABS: Absolute Lymphocytes (CBC) 0.4 K/uL (0.7-4.9); Hematocrit 25.2 % (39.6-49.0); Lymphocytes % 3.3 % (15.3-44.8); MCV 89.5 fL (80-100); MPV 8.5 fL (7.6-11.3); RBC Red Blood Cell Count 2.82 M/uL (4.33-5.43)
[2022-12-10 04:43] LABS: Magnesium 2.8 mg/dL (1.6-2.4); Potassium 4.2 mEq/L (3.5-5.1)
[2022-12-10] MEDS: IPRATROPIUM BROM 0.5MG/2.5ML NEB SCH ×3 (07:53→20:50)
[2022-12-10] MEDS: FUROSEMIDE 40 MG TABLET PO SCH (09:01)
[2022-12-10] MEDS: METOPROLOL TAR 25 MG TAB PO SCH ×2 (09:01→20:46)
[2022-12-10] MEDS: predniSONE 10 MG TAB PO SCH ×2 (09:04→20:46)
--- NOTE | 2022-12-10 10:33 | RAD REPORT ---
EXAM DESCRIPTION: RAD - Chest Pa And Lat (2 Views) - 12/10/2022 10:01 am CLINICAL HISTORY: left sided effusion COMPARISON: Chest Single View dated 12/09/2022; Chest Single View dated 11/25/2022; Chest Single View d ated 11/20/2022; Chest Single View dated 11/19/2022; Thorax Wo Con dated 12/09/2022 FINDINGS: Lines: None. Lungs: Diffuse prominence of the pulmonary vasculature and hazy opacities, left greater than right. C hronic scarring at the right lung base. Pleural: Similar to mildly enlarged at least moderate size left pleural effusion. Small to moderate r ight pleural effusion. Cardiac: Cardiomegaly. Pacemaker. Mediastinum: Within normal limits. Bones: No acute fractures. Other: None IMPRESSION: Moderate to large left pleural similar to mildly increased in size since 12/09/2022. Sma ll to moderate right pleural effusion is grossly similar. Background of pulmonary edema suspected.
--- NOTE | 2022-12-10 12:05 | P.PN ---
Nephrology note: (S) Pt unfortunately re-admitted after for the 2nd time after recent discharge due to shortness of breath, see consult note done within [address] Roy for details. Pt s/p ICD last week, he has extensive bruising across left lateral chest wall and flank, he has had a drop in H/H and CT shows mod to large left sided pleural effusion (O) Vitals reviewed in the EMR General: Alert, In no apparent distress HEENT: Atraumatic, Normocephalic, PERRLA, EOMI, LFNC Neck: Supple Respiratory: Other (non tachypnec, reduced BS mid and Lt base Cardiovascular: No sig edema, non tachy Gastrointestinal: Soft and benign, Non-distended, No tenderness Musculoskeletal: No swelling, No contractures, No erythema, muscle mass loss noted Integumentary: No rashes, Other (xerosis) Neurological: Normal speech, Normal tone, Normal affect Conclusions/Impression: -Recurrent MEHREEN episodes over the past year, underlying CKD Stage IIIb. Stage 1 MEHREEN on admission in the setting of multifactorial etiology. Azotemia mod to severe, monitor closely. -Hyponatremia in the past, current Na level > 135 -Recent echo confirmed pt with continued LVEF dysfunction, global hypokinesis, BNP chronically/sig elevated, s/p ICD. In the setting of recurrent AKIs and hx of hyperkalemia, have not been able to add low dose Entresto -Spironolactone also on hold currently. -Monitor BP closely. Target BP < 130/80 -Recommend thoracentesis for the large left pleural effusion. Yossi Fiore MD, ÁNGEL
--- NOTE | 2022-12-10 14:17 | EKG ---
Test Date: 2022-12-09 Test Time: 21:07:27 Laboratory Tech: LUKE MEASUREMENT RESULTS: Intervals: Rate: 65 [place]: 162 QRSD: 122 QT: 518 QTc: 538 [place]: P: 21 [place]: 162 QRS: -12 T: 170 INTERPRETIVE STATEMENTS: Normal sinus rhythm Left bundle branch block Abnormal ECG Compared to ECG 11/25/2022 08:51:46 Ventricular premature complex(es) no longer present Electronically Signed On 12-10-22 14:15:33 CDT by Jerardo Hussein
[2022-12-11] MEDS ORDERED: LORazepam 2 MG/ML VIAL IV ONE (01:06)
[2022-12-11] MEDS: IPRATROPIUM BROM 0.5MG/2.5ML NEB SCH ×4 (02:00→20:55)
[2022-12-11] MEDS: ALBUTEROL 2.5 MG/3 ML NEB SOL NEB PRN ×2 (07:45→20:55)
[2022-12-11] MEDS: METOPROLOL TAR 25 MG TAB PO SCH ×2 (08:59→20:41)
[2022-12-11] MEDS: BUSPIRONE HCL 5 MG TABLET PO SCH ×2 (08:59→20:40)
[2022-12-11] MEDS: AMLODIPINE 10 MG TAB PO SCH (08:59)
[2022-12-11] MEDS: AMIODARONE HCL 200 MG TAB PO SCH ×2 (08:59→20:40)
[2022-12-11] MEDS: FUROSEMIDE 40 MG TABLET PO SCH (09:00)
[2022-12-11] MEDS: predniSONE 10 MG TAB PO SCH ×2 (09:00→20:40)
--- NOTE | 2022-12-11 09:44 | P.PN ---
Subjective Date of Service: 12/11/22 Primary Care Provider: Tera Chief Complaint: Pleural effusion with a hematoma on the left chest Has some significant bleeding over his site insertion had a large bruise over the left hemithorax in the left arm suspect he may have had some hemorrhage into his lungs hemoglobin is mildly decreased Review of Systems General: Weakness Respiratory: Shortness of Breath Physical Examination - Vital Signs Temperature: 97.3 F Blood Pressure: 132/73 Pulse: 74 Respirations: 24 Pulse Ox (%): 95 - Physical Exam General: Alert, Oriented x3, Mild distress Respiratory: Clear to auscultation bilaterally, Diminished Cardiovascular: No edema, Regular rate/rhythm, Normal S1 S2 Gastrointestinal: Normal bowel sounds, Soft and benign Assessment And Plan - Current Problems (Diagnosis) (1) Hematoma Current Visit: Yes Status: Acute Plan: Patient is 72 years of age he had defib placed and now developed a large hematoma on the left side addition to a pleural effusion which I suspect may be thorax to continue monitor Plavix and Eliquis is on hold for now slight decline in his hemoglobin continue to monitor may need to transfuse not eating and drinking much vital signs oxygenation satisfactory will resume amiodarone is currently in normal sinus rhythm patient also has chronic renal failure seen by nephrology/continue with Lasix due to underlying renal failure and heart failure Physician Review: Patient Assessed, Agree with Above Assessment and Plan
--- NOTE | 2022-12-11 12:14 | PN ---
Subjective: The patient is seen in the [facility] in [place]. He is in room 224. The patient is alert, able to answer some questions. Does look like he is in mild respiratory distr ess. Objective: Vital Signs: Has oxygen on, O2 sats are good. His respirations are around 15 to 18 on m y evaluation. His last blood pressure recorded was 132/73. This morning, pulse is about 70 on my ev aluation and regular, respirations are around 18 or so, and his O2 sats are 95%. He is currently usi ng some oxygen with about 5 L going high-flow. Lungs: With few crackles in the bases and decreased breath sounds. Abdomen: Soft. The patient has significant bruising on his left chest area where the defibrillator was placed and is cleanly dressed. Extremities: The patient does not have any lower extremity edema. Laboratory Data: Reviewed. Labs show a WBC count of 12.8, it improved at 15.9 the lab of 12.8 WBCs from December 10. Labs from today are pending. Hemoglobin was 8.3, hematocrit 25.2, platelet count of 1 61. Chemistry shows sodium 136, potassium 4.2, chloride 99, bicarb is 27, BUN is 89, creatinine is 2 .66 somewhat stable compared to 15, but it was 84 and 2.63, the 89 and 2.66 was on December 10. Current labs with BMP are standing. Assessment And Plan: The patient with acute kidney injury with stage 3B kidney disease, currently lo oks somewhat stable perhaps higher than his baseline. Hyponatremia at this point is stable, repeat l ab work pending. Hyperkalemia, repeat lab work is pending. Clinically, the patient looks stable. W e will need to further evaluate once acute issues are resolved. Pulmonary following to assess his ne ed for thoracentesis and/or other intervention. Hemoglobin seems relatively stable. Continue to monitor. /ARTURO Voice ID: [id number] Report ID: [id number]
[2022-12-11 14:44] LABS: Absolute Lymphocytes (CBC) 0.7 K/uL (0.7-4.9); Hematocrit 25.5 % (39.6-49.0); Lymphocytes % 5.3 % (15.3-44.8); MCV 89.7 fL (80-100); MPV 8.9 fL (7.6-11.3); RBC Red Blood Cell Count 2.85 M/uL (4.33-5.43)
[2022-12-11 14:49] LABS: Magnesium 2.9 mg/dL (1.6-2.4); Phosphorus 6.4 mg/dL (2.5-4.9); Potassium 5.1 mEq/L (3.5-5.1)
[2022-12-12] MEDS: IPRATROPIUM BROM 0.5MG/2.5ML NEB SCH ×4 (02:00→20:45)
[2022-12-12 06:18] LABS: Absolute Lymphocytes (CBC) 0.6 K/uL (0.7-4.9); Hematocrit 24.8 % (39.6-49.0); Lymphocytes % 4.4 % (15.3-44.8); MCV 90.1 fL (80-100); MPV 8.8 fL (7.6-11.3); RBC Red Blood Cell Count 2.75 M/uL (4.33-5.43)
[2022-12-12 06:33] LABS: Potassium 4.5 mEq/L (3.5-5.1)
[2022-12-12] MEDS: BUSPIRONE HCL 5 MG TABLET PO SCH ×2 (08:07→20:39)
[2022-12-12] MEDS: AMLODIPINE 10 MG TAB PO SCH (08:07)
[2022-12-12] MEDS: predniSONE 10 MG TAB PO SCH (08:08)
[2022-12-12] MEDS: METOPROLOL TAR 25 MG TAB PO SCH ×2 (08:08→20:40)
[2022-12-12] MEDS: AMIODARONE HCL 200 MG TAB PO SCH ×2 (08:08→20:40)
--- NOTE | 2022-12-12 09:50 | P.PN ---
Subjective Date of Service: 12/12/22 Primary Care Provider: Tera Chief Complaint: Pleural effusion with a hematoma on the left chest Patient is subjectively feeling better as of breath stable renal function is worse Review of Systems General: Weakness Respiratory: Shortness of Breath Physical Examination - Vital Signs Temperature: 97.7 F Blood Pressure: 119/62 Pulse: 64 Respirations: 16 Pulse Ox (%): 99 - Physical Exam General: Alert, In no apparent distress, Oriented x3 Respiratory: Clear to auscultation bilaterally, Diminished Cardiovascular: No edema, Regular rate/rhythm, Normal S1 S2 Assessment And Plan - Current Problems (Diagnosis) (1) Hematoma Current Visit: Yes Status: Acute Plan: Patient admitted with hematoma on the left chest secondary to recent procedure globin has stabilized bleeding has stopped and is on amiodarone currently on paced rhythm (2) CKD (chronic kidney disease) stage 3, GFR 30-59 ml/min Current Visit: Yes Status: Chronic Plan: Changes renal function has worsened neurology consult appreciated Qualifiers: Chronic kidney disease stage 3 subtype: stage 3b (GFR 30-44) Qualified Code(s): N18.32 - Chronic kidney disease, stage 3b (3) Pleural effusion Current Visit: Yes Status: Acute Plan: Patient has pleural effusion on the left side high risk for bleeding we will have to wait least 7 days prior to doing a thoracentesis for hemothorax on the left side (4) Troponin level elevated Current Visit: Yes Status: Acute Physician Review: Patient Assessed, Agree with Above Assessment and Plan
[2022-12-12] MEDS: FUROSEMIDE 40 MG TABLET PO SCH (13:42)
--- NOTE | 2022-12-12 14:11 | PN ---
Subjective: The patient is seen in room 231 on the second floor. He is alert, awake, and comfortabl e. Denies any headache, nausea, vomiting. He is on oxygen, but states that his breathing is somewha t close to his usual. He does use oxygen at home. States that he has history of congestive heart fa ilure and COPD. He is feeling comfortable currently and denies any new issues. Objective: Vital Signs: His blood pressure is last 115/64, pulse is between 60 and 70, respirations are around 18. His temperature is afebrile at 97.6. Recorded last O2 sats are 99%. He is on oxyge n. Lungs: With decreased breath sounds, few crackles. Abdomen: Soft. Extremities: Reveal no edema. Heart: Sounds are seeming to be regular. Laboratory Data: His lab work shows a WBC of 12.4, hemoglobin and hematocrit 8.2 and 25.5, platelet count of 135. This is from yesterday. His labs from today showed WBC of 12.9, hemoglobin 8.1, hemat ocrit 24.8, platelet count of 145. Chemistry shows sodium 131, potassium 4.5, chloride 95, bicarb is 28, BUN 108, creatinine is 3.78, marginally change from yesterday when it was 3.7. His BUN is also marginally changed from 105 to 108, some of it could be from increased urea appearance due to his hem atoma on the chest. Glucose is 147, magnesium 2.9. Troponin level recorded on was 119. Lipase was 30 on December 09. Albumin was 2.9. Medications: Reviewed. The patient is on currently on amlodipine. He is on furosemide daily at 80 mg. he is on metoprolol b.i.d. He is on low-dose prednisone at 10 mg b.i.d. Assessment And Plan: The patient is a 72-year-old male with significant kidney problem, chronic kidn ey disease/possibility of 3B stage, was now progressing in the setting of a procedure to his chest wh ere he had a hematoma, increased urea appearance from perhaps that and also with significant cardiac and pulmonary disease, now also on prednisone for renal support in the hospital 10 mg b.i.d., started on and we see that his BUN is slightly gone up since then. The patient seems to be slightly vo lume overloaded. He is on Lasix currently with blood pressure is holding. Continue Lasix, monitor k idney function. May need dialysis in the future. I have discussed this with the patient and he is a greeable to looking into it when the need arises. He is currently on amiodarone at 400 mg b.i.d., on furosemide. His heart rate is paced. He has also got a defibrillator that has been recently placed . His right chest wall bruising and swelling are improving. We will cut back on the prednisone to 1 0 mg once a day to perhaps decrease the rate of his urea increase and may need to stop this in the ne ar future assuming his blood pressure holds and adrenal insufficiency is not a concern. /ARTURO Voice ID: [id number] Report ID: [id number]
[2022-12-12] MEDS: ALBUTEROL 2.5 MG/3 ML NEB SOL NEB PRN (20:45)
[2022-12-13] MEDS: IPRATROPIUM BROM 0.5MG/2.5ML NEB SCH ×4 (02:00→19:45)
[2022-12-13 03:44] LABS: Absolute Lymphocytes (CBC) 0.6 K/uL (0.7-4.9); Hematocrit 24.7 % (39.6-49.0); Lymphocytes % 5.2 % (15.3-44.8); MCV 89.6 fL (80-100); MPV 9.2 fL (7.6-11.3); RBC Red Blood Cell Count 2.75 M/uL (4.33-5.43)
[2022-12-13 03:57] LABS: Potassium 4.3 mEq/L (3.5-5.1)
[2022-12-13 05:12] LABS: Blood Morphology Comment NOT SEEN (NOT SEEN); Platelet Estimate ADEQ
--- NOTE | 2022-12-13 08:11 | RAD REPORT ---
EXAM DESCRIPTION: [facility]is Single View12/13/2022 6:09 am CLINICAL HISTORY: Cough COMPARISON: December 10, 2022 FINDINGS: No significant change in a moderate to large left pleural effusion Small right pleural effusion Mild stable bilateral pulmonary opacities Cardiomegaly. Pacemaker leads in place
[2022-12-13] MEDS: BUSPIRONE HCL 5 MG TABLET PO SCH ×2 (08:34→20:47)
[2022-12-13] MEDS: AMLODIPINE 10 MG TAB PO SCH (08:34)
[2022-12-13] MEDS: FUROSEMIDE 40 MG TABLET PO SCH (08:34)
[2022-12-13] MEDS: METOPROLOL TAR 25 MG TAB PO SCH ×2 (08:35→20:49)
[2022-12-13] MEDS: AMIODARONE HCL 200 MG TAB PO SCH ×2 (08:35→20:48)
[2022-12-13] MEDS: predniSONE 10 MG TAB PO SCH (08:35)
[2022-12-13 09:23] LABS: Protime INR 1.16
--- NOTE | 2022-12-13 11:05 | P.PN ---
Date of Service: 12/13/22 Vital Signs Temp Pulse Resp BP Pulse Ox 97.7 F 60 20 125/67 99 12/13/22 08:00 12/13/22 08:35 12/13/22 08:00 12/13/22 08:35 12/13/22 08:00 Medications Acetaminophen (Acetaminophen 500 Mg Tab) 1,000 mg PO Q6H PRN PRN Reason: Pain scale 2-4 (Mild) Last Admin: 12/10/22 15:18 Dose: 1,000 mg Albuterol Sulfate (Albuterol 2.5 Mg/3 Ml Neb Ledy) 2.5 mg NEB [id number] PRN PRN Reason: SHORTNESS OF BREATH Last Admin: 12/12/22 20:45 Dose: 2.5 mg Amiodarone HCl (Amiodarone Hcl 200 Mg Tab) 400 mg PO BID [facility] Last Admin: 12/13/22 08:35 Dose: 400 mg Amlodipine Besylate (Amlodipine 10 Mg Tab) 10 mg PO DAILY [facility] Last Admin: 12/13/22 08:34 Dose: 10 mg Buspirone HCl (Buspirone Hcl 5 Mg Tablet) 10 mg PO BID [facility] Last Admin: 12/13/22 08:34 Dose: 10 mg Docusate Sodium (Docusate Na 100 Mg Cap) 100 mg PO DAILY PRN PRN Reason: CONSTIPATION Furosemide (Furosemide 40 Mg Tablet) 80 mg PO DAILY [facility] Last Admin: 12/13/22 08:34 Dose: 80 mg Ipratropium [place] (Ipratropium Brom 0.5mg/2.5ml) 0.5 mg NEB [id number] [facility] Last Admin: 12/13/22 08:40 Dose: 0.5 mg Metoprolol Tartrate (Metoprolol Tar 25 Mg Tab) 25 mg PO BID [facility] Last Admin: 12/13/22 08:35 Dose: 25 mg Ondansetron HCl (Ondansetron 4 Mg/2 Ml Vial) 4 mg IV Q6HP PRN PRN Reason: NAUSEA / VOMITING Prednisone (Prednisone 10 Mg Tab) 10 mg PO DAILY [facility] Last Admin: 12/13/22 08:35 Dose: 10 mg Sodium Chloride (Flush Normal Saline 10 Ml) 10 ml IV BID [facility] Last Admin: 12/13/22 08:35 Dose: 10 ml Microbiology Results 12/09/22 21:40 Blood - Blood Aerobic Blood Culture - Preliminary No growth in 24 hours. 12/09/22 21:40 Blood - Blood Anaerobic Blood Culture - Preliminary No growth in 24 hours. 12/09/22 21:20 Blood - Blood Aerobic Blood Culture - Preliminary No growth in 24 hours. 12/09/22 21:20 Blood - Blood Anaerobic Blood Culture - Preliminary No growth in 24 hours. Assessment/ Plan: Nephrology No dyspnea No chest pain No acute events overnight Vitals, medications, blood work and imaging reviewed in the chart. NAD. NCAT. MMM. Normal Respiratory Effort. S1S2. ND Abd. No C/C/E. No loni h. AAO. Normal speech. Stage II MEHREEN in the setting of CRS CKD IIIb -No NSAIDs -Continue Furosemide Hyponatremia -Continue Furosemide -Caution with excess free water HTN with CKD/ CHF -Reduce Amlodipine 5mg daily Diastolic CHF, chronic -Low sodium diet -Daily weight Anemia in chronic illness -Monitor H&H -Retacrit X1 CKD MBD -Start Ergo
--- NOTE | 2022-12-13 12:13 | P.PN ---
Subjective Date of Service: 12/13/22 Primary Care Provider: Tera Chief Complaint: Pleural effusion with a hematoma on the left chest Patient is subjectively improving the bleeding seems to have stopped all weak and short of breath Review of Systems General: Weakness Respiratory: Shortness of Breath Physical Examination - Vital Signs Temperature: 97.7 F Blood Pressure: 122/65 Pulse: 61 Respirations: 18 Pulse Ox (%): 97 - Physical Exam General: Alert, In no apparent distress, Oriented x3 Respiratory: Clear to auscultation bilaterally, Diminished Cardiovascular: No edema (The left side), Regular rate/rhythm, Normal S1 S2 Assessment And Plan - Current Problems (Diagnosis) (1) Hematoma Current Visit: Yes Status: Acute Plan: Patient's hematoma is stabilized hemoglobin stable (2) CKD (chronic kidney disease) stage 3, GFR 30-59 ml/min Current Visit: Yes Status: Chronic Plan: Seen by nephrology BUN and creatinine elevated Qualifiers: Chronic kidney disease stage 3 subtype: stage 3b (GFR 30-44) Qualified Code(s): N18.32 - Chronic kidney disease, stage 3b (3) Pleural effusion Current Visit: Yes Status: Acute Plan: Patient has a significant effusion on the right side may be hemothorax to do a diagnostic thoracentesis on Tuesday he will be off the Eliquis and Plavix Tuesday (4) Troponin level elevated Current Visit: Yes Status: Acute Physician Review: Patient Assessed, Agree with Above Assessment and Plan
[2022-12-13] MEDS: DULERA 200/5 (MOMETASONE/FORMOTEROL) INHALER IH SCH (20:48)
[2022-12-13] MEDS: BENZONATATE 100 MG CAP PO PRN (21:34)
[2022-12-14] MEDS: IPRATROPIUM BROM 0.5MG/2.5ML NEB SCH ×4 (01:00→20:13)
--- NOTE | 2022-12-14 05:45 | P.PN ---
Date of Service: 12/13/22 Subjective Patient is subjectively improving the bleeding seems to have stopped all weak and short of breath Physical Examination - Vital Signs Reviewed - Physical Exam General: Alert, In no apparent distress, Oriented x3 Respiratory: Clear to auscultation bilaterally, Diminished Cardiovascular: Regular rate/rhythm, Normal S1 S2 Abdomen: soft nontender nondistended Skin: patient with hematoma to the left chest wall Assessment And Plan - Current Problems (Diagnosis) (1) Hematoma Current Visit: Yes Status: Acute Plan: H&H is stable. Continue to monitor hemoglobin. We will arrange for patient to get thoracentesis on Tuesday. Patient lives [facility]. We will to transfer back to the [facility] afterwards. (2) CKD (chronic kidney disease) stage 3, GFR 30-59 ml/min Current Visit: Yes Status: Chronic Chronic kidney disease stage 3 subtype: stage 3b (GFR 30-44) Qualified Code(s): N18.32 - Chronic kidney disease, stage 3b Plan: Patient renal function is worsening; GFR Gradually decreased over the last couple months. Will continue to monitor renal function closely. (3) Pleural effusion Current Visit: Yes Status: Acute Plan: Patient's Eliquis on hold, and patient will get thoracentesis on Tuesday. (4) Troponin level elevated Current Visit: Yes Status: Acute Physician Review: Patient Assessed, Agree with Above Assessment and Plan Patient's cardiac status is stable. Patient will be discharged back to the [facility]
[2022-12-14 06:29] LABS: MCV 90.5 fL (80-100); RBC Red Blood Cell Count 2.87 M/uL (4.33-5.43)
[2022-12-14 06:44] LABS: Magnesium 2.7 mg/dL (1.6-2.4); Phosphorus 5.9 mg/dL (2.5-4.9); Potassium 3.9 mEq/L (3.5-5.1)
--- NOTE | 2022-12-14 07:33 | RAD REPORT ---
EXAM DESCRIPTION: RADChest Single View12/14/2022 4:50 am CLINICAL HISTORY: We will effusion COMPARISON: Chest Single View dated 12/13/2022; Chest Pa And Lat (2 Views) dated 12/10/2022; Chest Sin gle View dated 12/09/2022; Chest Single View dated 11/25/2022 TECHNIQUE: Portable AP view of the chest. FINDINGS: Stable cardiomegaly and central predominant pronounced airspace opacification throughout t he left lung with suggestion of [id number] layering effusion. Stable patchy right mid to basal opacification with blunting of the right costophrenic angle. No pneumothorax. The mediastinal contou rs are unremarkable. IMPRESSION: Stable bilateral airspace opacities, which could reflect pneumonia, although superimpose d central congestion/ CHF may be possible.
[2022-12-14] MEDS: DULERA 200/5 (MOMETASONE/FORMOTEROL) INHALER IH SCH ×2 (09:00→21:30)
[2022-12-14] MEDS ORDERED: POTASSIUM CL SA 10 MEQ TAB PO ONE (09:00)
[2022-12-14] MEDS: AMLODIPINE 5 MG TAB PO SCH (09:30)
[2022-12-14] MEDS: predniSONE 10 MG TAB PO SCH (09:30)
[2022-12-14] MEDS: AMIODARONE HCL 200 MG TAB PO SCH ×2 (09:30→21:29)
[2022-12-14] MEDS: METOPROLOL TAR 25 MG TAB PO SCH ×2 (09:31→21:29)
[2022-12-14] MEDS: FUROSEMIDE 40 MG TABLET PO SCH (09:31)
[2022-12-14] MEDS: BUSPIRONE HCL 5 MG TABLET PO SCH ×2 (09:31→21:29)
[2022-12-14] MEDS ORDERED: POTASSIUM 25 MEQ EFFERV TAB PO ONE (09:36)
[2022-12-14 10:16] LABS: Protime INR 1.01
[2022-12-14] MEDS: ALBUTEROL 2.5 MG/3 ML NEB SOL NEB PRN (13:55)
--- NOTE | 2022-12-14 17:23 | P.PN ---
Subjective Date of Service: 12/14/22 Primary Care Provider: Tera Chief Complaint: Pleural effusion with a hematoma on the left chest No acute events overnight. He reports persistent shortness of breath. He states that the plan is for thoracentesis tomorrow. Per Nephrology, it has been recommended that he consider initialization of hemodialysis. I reviewed this with Mr. Chow, who is in agreement with this plan. He denies any chest pain, palpitations, or abdominal pain. Review of Systems 10-point ROS is otherwise unremarkable Respiratory: Cough, Shortness of Breath Cardiovascular: Edema Physical Examination - Vital Signs Temperature: 97.7 F Blood Pressure: 129/59 Pulse: 60 Respirations: 16 Pulse Ox (%): 91 - Physical Exam General: Alert, In no apparent distress, Oriented x3 HEENT: Atraumatic, Sclerae nonicteric Neck: JVD not distended Respiratory: Diminished, Crackles/rales (bibasilar) Cardiovascular: Regular rate/rhythm, Normal S1 S2, No murmurs, Other (hematoma noted on left chest wall), Edema (2+ BLE) Gastrointestinal: Normal bowel sounds, Soft and benign, Non-distended, No tenderness, No rebound, No guarding Musculoskeletal: No clubbing Integumentary: No rashes Neurological: Normal speech, Normal affect Assessment And Plan - Plan # Moderate-Large Left Pleural Effusion on Chronic Respiratory Failure due to Chronic Obstructive Pulmonary Disease on Home Oxygen (2 L) # Suspect Steroid-Induced Leukocytosis # Tobacco Use Disorder - Evaluation thus far: - Chest x-ray (12/09) = "portable technique limits examination quality. M oderately severe left-sided lung opacities are present probably asymmetric pulmonary edema or possibly pneumonia. Small to moderate right pleural effusion appears similar to the comparative study. The heart is moderately enlarged. Dual lead pacer/defibrillator device present." - CT chest (12/09) = "moderate to large left pleural effusion. Probable asymmetric pulmonary edema." - Chest x-ray (12/10) = "moderate to large left pleural similar to mildly increased in size since 12/09/2022. Small to moderate right pleural effusion is grossly similar. Background of pulmonary edema suspected" - Chest x-ray (12/13) = "no significant change in a moderate to large left pleural effusion. Small right pleural effusion. Mild stable bilateral pulmonary opacities. Cardiomegaly. Pacemaker leads in place." - Chest x-ray (12/14) = "stable bilateral airspace opacities, which could reflect pneumonia, although superimposed central congestion/ CHF may be possible." - Management plan: - Pulmonology consulted and spoke with Dr. Carter - recommendations appreciated - Plan for thoracentesis tomorrow - Per Dr. Carter, last clopidogrel dose was on 12/10/2022 - Continue home prednisone and bronchodilators - Consulted Respiratory Therapy - Supplemental oxygen to maintain SpO2 > 92% - Tobacco cessation counseling - Encouraged incentive spirometry # Acute Kidney Injury on Chronic Kidney Disease Stage III - Nephrology consulted and spoke with Dr. Roy- recommendations appreciated - Given his worsening renal function, Nephrology feels that he may benefit from initialization of hemodialysis - General Surgery consulted and spoke with Dr. Falcon - recommendations appreciated - Creatinine = 2.63 -> 2.86 -> 3.70 -> 3.78 -> 3.70 -> 3.51 - Diuretics as mentioned above - Monitor creatinine and urine output - Renally dose medications # Left Chest Wall Hematoma # Chronic Compensated Systolic Congestive Heart Failure # Suspect Type II Non-ST Segment Elevation Myocardial Infarction (Demand Ischemia) secondary to above # Coronary Artery Disease # Hypertension # Dyslipidemia - Cardiac catheterization on 02/01/2022 revealed severe coronary artery disease and recommendation at the time was medical management - Cardiology consulted and spoke with Dr. Hussein - recommendations appreciated - EKG = without STEMI criteria - Troponin trend = 120.1 -> 119.0 - NT-Pro BNP = 30,472 - Continue home metoprolol, furosemide - Hold home aspirin, clopidogrel due to hematoma # Chronic Atrial Fibrillation s/p PPM # History of Ventricular Tachycardia s/p AICD His [id number] = 4 (CHF=1, HTN=1, CAD=1, Age 65-74=1), which typically warrants anticoagulation. - For rate control: - Continue metoprolol, amiodarone - For anticoagulation: - Hold home apixaban due to hematoma Hernan Alonzo M.D.
--- NOTE | 2022-12-14 21:26 | P.PN ---
Date of Service: 12/14/22 Vital Signs Temp Pulse Resp BP Pulse Ox 97.5 F 60 18 126/71 92 12/14/22 20:00 12/14/22 20:00 12/14/22 20:00 12/14/22 20:00 12/14/22 20:00 Medications Albuterol Sulfate (Albuterol 2.5 Mg/3 Ml Neb Ledy) 2.5 mg NEB [id number] PRN PRN Reason: SHORTNESS OF BREATH Last Admin: 12/14/22 13:55 Dose: 2.5 mg Amiodarone HCl (Amiodarone Hcl 200 Mg Tab) 400 mg PO BID [facility] Last Admin: 12/14/22 09:30 Dose: 400 mg Amlodipine Besylate (Amlodipine 5 Mg Tab) 5 mg PO DAILY [facility] Last Admin: 12/14/22 09:30 Dose: 5 mg Benzonatate (Benzonatate 100 Mg Cap) 100 mg PO TID PRN PRN Reason: COUGH Last Admin: 12/13/22 21:34 Dose: 100 mg Buspirone HCl (Buspirone Hcl 5 Mg Tablet) 10 mg PO BID [facility] Last Admin: 12/14/22 09:31 Dose: 10 mg Docusate Sodium (Docusate Na 100 Mg Cap) 100 mg PO DAILY PRN PRN Reason: CONSTIPATION Furosemide (Furosemide 40 Mg Tablet) 80 mg PO DAILY [facility] Last Admin: 12/14/22 09:31 Dose: 80 mg Ipratropium [place] (Ipratropium Brom 0.5mg/2.5ml) 0.5 mg NEB [id number] [facility] Last Admin: 12/14/22 13:55 Dose: 0.5 mg Metoprolol Tartrate (Metoprolol Tar 25 Mg Tab) 25 mg PO BID [facility] Last Admin: 12/14/22 09:31 Dose: 25 mg Ondansetron HCl (Ondansetron 4 Mg/2 Ml Vial) 4 mg IV Q6HP PRN PRN Reason: NAUSEA / VOMITING Prednisone (Prednisone 10 Mg Tab) 10 mg PO DAILY [facility] Last Admin: 12/14/22 09:30 Dose: 10 mg Sodium Chloride (Flush Normal Saline 10 Ml) 10 ml IV BID [facility] Last Admin: 12/14/22 09:32 Dose: 10 ml Microbiology Results 12/09/22 21:40 Blood - Blood Aerobic Blood Culture - Preliminary No growth in 24 hours. 12/09/22 21:40 Blood - Blood Anaerobic Blood Culture - Preliminary No growth in 24 hours. 12/09/22 21:20 Blood - Blood Aerobic Blood Culture - Preliminary No growth in 24 hours. 12/09/22 21:20 Blood - Blood Anaerobic Blood Culture - Preliminary No growth in 24 hours. Assessment/ Plan: Nephrology No dyspnea No chest pain Feeling better No acute events overnight Vitals, medications, blood work and imaging reviewed in the chart. NAD. NCAT. MMM. Normal Respiratory Effort. S1S2. ND Abd. No C/C/E. No rash. AAO. Normal speech. Stage II MEHREEN in the setting of CRS CKD IIIb -No NSAIDs -Continue Furosemide -Advised the patient that he may benefit from dialysis due to his multiple admissions for COPD, CHF & MEHREEN in an effort to stabalized his condition and reduce readmissions. Hyponatremia -Continue Furosemide -Caution with excess free water HTN with CKD/ CHF -Continue Amlodipine 5mg daily Diastolic CHF, chronic -Low sodium diet -Daily weight Anemia in chronic illness -Monitor H&H -Retacrit PRN CKD MBD -Continue Ergo Case reviewed with Dr. Carter and Dr. Alonzo All Active Problems Acute on chronic respiratory failure with hypoxia (Acute) Hematoma (Acute) Pleural effusion (Acute) Troponin level elevated (Acute) CAD (coronary artery disease) (Chronic) CHF (congestive heart failure) (Chronic) CKD (chronic kidney disease) stage 3, GFR 30-59 ml/min (Chronic) HTN (hypertension) (Chronic) Acute bronchitis with COPD (Acute) Acute exacerbation of CHF (congestive heart failure) (Acute 07/28/18) Acute on chronic diastolic (congestive) heart failure (Acute) Acute on chronic renal failure (Acute) Acute renal failure (Acute) Acute respiratory failure with hypercapnia (Acute) Acute respiratory failure with hypoxia (Acute) Atrial fibrillation (Acute) CHF (congestive heart failure) (Acute) COPD exacerbation (Acute) COPD exacerbation (Acute) COPD exacerbation (Acute) Chest pain (Acute) Chronic diastolic heart failure (Acute) Hypercapnic respiratory failure (Acute) Pneumonia (Acute) Respiratory distress (Acute) Respiratory failure with hypoxia and hypercapnia (Acute) Acute on chronic diastolic heart failure (Chronic) CKD (chronic kidney disease) stage 3, GFR 30-59 ml/min (Chronic) HTN (hypertension) (Chronic) Nicotine dependence (Chronic)
[2022-12-15] MEDS: IPRATROPIUM BROM 0.5MG/2.5ML NEB SCH ×4 (01:23→19:50)
[2022-12-15 03:45] LABS: Protime INR 0.99
[2022-12-15 03:48] LABS: Absolute Lymphocytes (CBC) 0.4 K/uL (0.7-4.9); Hematocrit 25.1 % (39.6-49.0); Lymphocytes % 4.4 % (15.3-44.8); MCV 89.6 fL (80-100); MPV 9.2 fL (7.6-11.3)
[2022-12-15 03:59] LABS: Potassium 3.9 mEq/L (3.5-5.1)
[2022-12-15 04:55] LABS: Hepatitis B Core Ab, Total Nonreactive (Nonreactive); Hepatitis B surface AG Interp. Nonreactive (Nonreactive)
[2022-12-15 05:01] LABS: Hepatitis B Surface Ab - Quant < 3.10 mIU/mL (<8.0)
--- NOTE | 2022-12-15 07:46 | RAD REPORT ---
EXAM DESCRIPTION: RAD - Chest Single View - 12/15/2022 5:14 am CLINICAL HISTORY: We will effusion Chest pain. COMPARISON: Chest Single View dated 12/14/2022; Chest Single View dated 12/13/2022; Chest Pa And Lat ( 2 Views) dated 12/10/2022; Chest Single View dated 12/09/2022; Thorax Wo Con dated 12/09/2022 FINDINGS: Portable technique limits examination quality. Moderate left pleural effusion and small right pleural effusion appears unchanged. Bilateral pulmonar y opacities presumably related to pulmonary edema appear unchanged. The heart is moderately enlarged. Multi lead pacer device is present.
[2022-12-15] MEDS: BUSPIRONE HCL 5 MG TABLET PO SCH ×2 (08:32→21:01)
[2022-12-15] MEDS: AMIODARONE HCL 200 MG TAB PO SCH ×2 (08:32→21:01)
[2022-12-15] MEDS: DULERA 200/5 (MOMETASONE/FORMOTEROL) INHALER IH SCH ×2 (08:32→21:01)
[2022-12-15] MEDS: predniSONE 10 MG TAB PO SCH (08:32)
[2022-12-15] MEDS: AMLODIPINE 5 MG TAB PO SCH (08:33)
[2022-12-15] MEDS: METOPROLOL TAR 25 MG TAB PO SCH ×2 (08:33→21:00)
[2022-12-15] MEDS: FUROSEMIDE 40 MG TABLET PO SCH (08:33)
[2022-12-15] MEDS: ONDANSETRON 4 MG/2 ML VIAL IV PRN (11:03)
--- NOTE | 2022-12-15 11:52 | RAD REPORT ---
EXAM DESCRIPTION: US - Chest - 12/15/2022 11:05 am CLINICAL HISTORY: Left sided effusion, Therapeutic and diagnostic COMPARISON: Chest Single View dated 12/15/2022; Thorax Wo Con dated 12/09/2022 FINDINGS: Moderate left pleural fluid is seen. The majority of this fluid does not appear loculated. At this time, due to the patient's clinical status, thoracentesis could not be performed. This was d iscussed with Dr. Carter.
[2022-12-15] MEDS ORDERED: METOLAZONE 5 MG TABLET PO SCH (12:00)
[2022-12-15] MEDS: FUROSEMIDE 40 MG/4 ML VIAL IV SCH (12:51)
--- NOTE | 2022-12-15 15:46 | P.PN ---
Nephrology note: (S) Pt was unable to get a thoracentesis this AM due to shortness of breath which is still moderate, latest CXR still revealing effusions and pulm edema. Discussed with pt that renal function tests are only marginally better and still well above his baseline and that pt could benefit from HD/UF as has been discussed recently and pt is now agreeable to a trial of dialysis. Spoke with Dr. Alonzo, Dr. Darling and Dr. Carter re: the plan (O) Vitals reviewed in the EMR General: Chronically ill, cachectic HEENT: Atraumatic, Normocephalic, PERRLA, EOMI, LFNC Neck: Supple Respiratory: Other (non tachypnec, poor air entry reduced BS mid and Lt base Cardiovascular: No sig edema, non tachy Gastrointestinal: Soft and benign, Non-distended, No tenderness Musculoskeletal: No swelling, No contractures, No erythema, muscle mass loss noted Integumentary: No rashes, Other (xerosis) Neurological: Normal speech, Normal tone, Normal affect Conclusions/Impression: -Recurrent MEHREEN episodes over the past year, underlying CKD Stage IIIb. Stage II MEHREEN developed on this admission in the setting of multifactorial etiology. Azotemia mod to severe. Renal function tests remain well above baseline and while pt claims to be producing urine, no sig UOP documented/recorded, recommend proceeding with a trial of HD/UF to optimize fluid balance and address ARF on CKD -Dr. Darling has been consulted and will plan to place TDC either today or tmrw -Recent echo confirmed continued LVEF dysfunction, global hypokinesis, BNP chronically/sig elevated, s/p ICD. In the setting of recurrent AKIs and hx of hyperkalemia, have not been able to add low dose Entresto but if pt being initiated on dialysis, will seek to add on if BP stable. -Spironolactone can then also be resumed when on HD without concern for hyperkalemia -Will switch diuretics back to IV lasix in the interim -Monitor BP closely. Target BP < 130/80 -Recommend thoracentesis for the large left pleural effusion. Since IR did not perform today, Dr. Darling with surgery will assess. Yossi Fiore MD, ÁNGEL
--- NOTE | 2022-12-15 18:48 | P.PN ---
Subjective Date of Service: 12/15/22 Primary Care Provider: Tera Chief Complaint: Pleural effusion with a hematoma on the left chest No acute events overnight. He reports persistent shortness of breath. Plan was for thoracentesis today, but he was unable to tolerate procedure. Spoke with Dr. Falcon, who is planning to do thoracentesis and dialysis catheter placement tomorrow under anesthesia. Mr. Chow is in agreement with this plan. He denies any chest pain, palpitations, or abdominal pain. Review of Systems 10-point ROS is otherwise unremarkable Respiratory: Shortness of Breath Physical Examination - Vital Signs Temperature: 97.7 F Blood Pressure: 119/62 Pulse: 60 Respirations: 18 Pulse Ox (%): 94 - Studies Microbiology Data (last 24 hrs): 12/09/22 21:40 Blood - Blood Aerobic Blood Culture - Final No growth in 5 days. 12/09/22 21:40 Blood - Blood Anaerobic Blood Culture - Final No growth in 5 days. 12/09/22 21:20 Blood - Blood Aerobic Blood Culture - Final No growth in 5 days. 12/09/22 21:20 Blood - Blood Anaerobic Blood Culture - Final No growth in 5 days. Assessment And Plan - Plan - Physical Exam General: Alert, In no apparent distress, Oriented x3 HEENT: Atraumatic, Sclerae nonicteric Neck: JVD not distended Respiratory: Diminished, Crackles/rales (bibasilar) Cardiovascular: Regular rate/rhythm, No murmurs, Other (hematoma noted on left chest wall), Edema (1+ BLE) Gastrointestinal: Normal bowel sounds, Soft, Non-distended, No tenderness Musculoskeletal: No clubbing Integumentary: No rashes Neurological: Normal speech, Normal affect # Moderate-Large Left Pleural Effusion on Chronic Respiratory Failure due to Chronic Obstructive Pulmonary Disease on Home Oxygen (2 L) # Suspect Steroid-Induced Leukocytosis # Tobacco Use Disorder - Evaluation thus far: - Chest x-ray (12/09) = "portable technique limits examination quality. Moderately severe left-sided lung opacities are present probably asymmetric pulmonary edema or possibly pneumonia. Small to moderate right pleural effusion appears similar to the comparative study. The heart is moderately enlarged. Dual lead pacer/defibrillator device present." - CT chest (12/09) = "moderate to large left pleural effusion. Probable asymmetric pulmonary edema." - Chest x-ray (12/10) = "moderate to large left pleural similar to mildly increased in size since 12/09/2022. Small to moderate right pleural effusion is grossly similar. Background of pulmonary edema suspected" - Chest x-ray (12/13) = "no significant change in a moderate to large left pleural effusion. Small right pleural effusion. Mild stable bilateral pulmonary opacities. Cardiomegaly. Pacemaker leads in place." - Chest x-ray (12/14) = "stable bilateral airspace opacities, which could reflect pneumonia, although superimposed central congestion/ CHF may be possib le." - Management plan: - Pulmonology consulted and spoke with Dr. Carter - recommendations appreciated - He was unable to tolerate thoracentesis today - plan for thoracentesis tomorrow under anesthesia with Dr. Falcon - Per Dr. Carter, last clopidogrel dose was on 12/10/2022 - Continue home prednisone and bronchodilators - Consulted Respiratory Therapy - Supplemental oxygen to maintain SpO2 > 92% - Tobacco cessation counseling - Encouraged incentive spirometry # Acute Kidney Injury on Chronic Kidney Disease Stage III - Nephrology consulted and spoke with Dr. Fiore- recommendations appreciated - Given his worsening renal function, Nephrology feels that he may benefit from initialization of hemodialysis - General Surgery consulted and spoke with Dr. Falcon - recommendations appreciated - Plan for HD cath placement tomorrow - Creatinine = 2.63 -> 2.86 -> 3.70 -> 3.78 -> 3.70 -> 3.51 -> 3.22 - Diuretics per Nephrology - Monitor creatinine and urine output - Renally dose medications # Left Chest Wall Hematoma # Chronic Compensated Systolic Congestive Heart Failure # Suspect Type II Non-ST Segment Elevation Myocardial Infarction (Demand Ischemia) secondary to above # Coronary Artery Disease # Hypertension # Dyslipidemia - Cardiac catheterization on 02/01/2022 revealed severe coronary artery disease and recommendation at the time was medical management - Cardiology consulted and spoke with Dr. Hussein - recommendations appreciated - EKG = without STEMI criteria - Troponin trend = 120.1 -> 119.0 - NT-Pro BNP = 30,472 - Continue home metoprolol, furosemide - Hold home aspirin, clopidogrel due to hematoma # Chronic Atrial Fibrillation s/p PPM # History of Ventricular Tachycardia s/p AICD His [id number] = 4 (CHF=1, HTN=1, CAD=1, Age 65-74=1), which typically warrants anticoagulation. - For rate control: - Continue metoprolol, amiodarone - For anticoagulation: - Hold home apixaban due to hematoma Hernan Alonzo M.D.
--- NOTE | 2022-12-15 19:47 | CON ---
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 He had a CT, which showed a moderate to lar ge left pleural effusion with asymmetric pulmonary edema. As such, he was admitted for continued wor kup and medical optimization for his current medical issues. He has been having worsening kidney fun ction during his admission and as such, I am consulted to see him for his worsening renal dysfunction to discuss placement of a permanent hemodialysis catheter. In addition, the patient is due to have a thoracentesis; however, I am unsure if the patient will be able to tolerate a thoracentesis and as such, we have discussed the possibility of intraoperative thoracentesis at the time of his dialysis c atheter placement. Past Medical History: Significant for hypertension, COPD, CHF, CKD, coronary artery disease, atrial fibrillation, on chronic anticoagulation. Past Surgical History: Includes coronary artery stents, heart catheterization on 01/2022 with severe coronary artery disease, pacemaker defibrillator placement approximately 2 weeks ago. Social History: He lives at [facility]. Smoking; he is a current everyday smoker. Alco hol usage is recreational, he states. He denies recreational drug use. Family History: Significant for heart disease in his father who had a heart attack, COPD in his [facility] er and lung disease. Allergies: NO KNOWN DRUG ALLERGIES. Home Medications: Include albuterol, aspirin, Plavix, metoprolol, Eliquis, Advair, Lasix, Crestor, B uSpar, Devaughn-24, Proventil, Norvasc, Atrovent nebulizer, Cordarone , and Deltasone. Review of Systems: Ten-point review of systems other than HPI, he continues to have shortness of breath. Physical Examination: General: At the time of my examination; he is awake, alert, oriented. Psychiatric: He is appropriate, conversive. Vital Signs: His blood pressure 105/63, pulse is 60, respiratory rate 16, temperature 97.6, SpO2 is 96% on 2 L nasal cannula during my exam. HEENT: He is normocephalic. Sclerae anicteric. Mucous membranes moist. Oropharynx is clear. Neck: Supple without JVD. Chest: Normal expansion and excursion. Decreased breath sounds on the left as compared to right. Abdomen: Soft. He has an AICD on the left upper chest area, which has a large surrounding subcutane ous bruise extending all the way to his sternum, shoulder, and down beyond the forearm on the same si de. Skin: Otherwise dry with mild bruising in multiple locations. Laboratory Data: Revealed a white blood cell count of 12.1, hemoglobin is 8.3, hematocrit 26.0, plat elet count is 128. His PT 11.1, INR 1.01, PTT was 23.5. Sodium 132, potassium 3.9, chloride 97, car bon dioxide is 30, BUN 9, creatinine 3.52, glucose is 146, calcium 8.6, phosphorus is 5.9, magnesium 2.7. He had imaging performed, which included a CT chest on 12/09, officially read as moderate to la rge left pleural effusion, probably asymmetric pulmonary edema. Assessment And Plan: This is a 72-year-old male, who comes in with multiple medical problems as desc ribed above. 1.I have explained the risks, benefits, and alternatives of placement of a tunneled hemodialysis cat heter including, but not limited to bleeding, infection, damage to surrounding tissues, lung collapse , injury to his heart and great blood vessels, coronary arrhythmias, blood clots, strokes, problems i n the perioperative period, anesthesia-related problems, long-term ventilatory needs, other unforesee n complications related to anesthesia. The patient agrees to proceed as indicated. In addition, I h ave discussed the risks, benefits, and alternatives of possible thoracentesis in the OR including, bu t not limited to bleeding, infection, damage to his lung, heart, great blood vessels, and need for fu rther operation and procedures and similar complications as described above. The patient agrees to p lyla with this as well if he is unable to get his thoracentesis completed. Continue medical manage ment per primary team. Thank you for this interesting consult. KENRICK/ARTURO Voice ID: [id number] Report ID: [id number]
[2022-12-16] MEDS: FUROSEMIDE 40 MG/4 ML VIAL IV SCH ×2 (00:12→12:10)
[2022-12-16] MEDS: IPRATROPIUM BROM 0.5MG/2.5ML NEB SCH ×4 (01:10→20:00)
[2022-12-16 03:33] LABS: Absolute Lymphocytes (CBC) 0.6 K/uL (0.7-4.9); Hematocrit 26.8 % (39.6-49.0); Lymphocytes % 4.6 % (15.3-44.8); MCV 88.8 fL (80-100); MPV 9.3 fL (7.6-11.3); RBC Red Blood Cell Count 3.02 M/uL (4.33-5.43)
[2022-12-16 03:41] LABS: Potassium 3.4 mEq/L (3.5-5.1)
[2022-12-16] MEDS: ALBUTEROL 2.5 MG/3 ML NEB SOL NEB PRN (04:00)
[2022-12-16] MEDS ORDERED: NA CHLORIDE 0.9% 250 ML ONE (06:31)
[2022-12-16] MEDS: KCL 20 MEQ/100 mL IVPB 20 MEQ/100 ML BAG IV SCH ×2 (06:31→09:09)
[2022-12-16] MEDS: BUSPIRONE HCL 5 MG TABLET PO SCH ×3 (08:31→22:50)
[2022-12-16] MEDS: AMIODARONE HCL 200 MG TAB PO SCH ×3 (08:31→22:51)
[2022-12-16] MEDS: DULERA 200/5 (MOMETASONE/FORMOTEROL) INHALER IH SCH ×2 (08:32→22:51)
[2022-12-16] MEDS: METOPROLOL TAR 25 MG TAB PO SCH ×3 (08:32→21:00)
[2022-12-16] MEDS: AMLODIPINE 5 MG TAB PO SCH ×2 (08:32→08:34)
[2022-12-16] MEDS: predniSONE 10 MG TAB PO SCH ×2 (08:32→08:35)
[2022-12-16] MEDS ORDERED: NA CHLORIDE 0.9% 50 ML ONE (13:59)
[2022-12-16] MEDS: BUPIVACAINE 0.25% PF 30 ML VIAL ONE ×2 (14:00→14:35)
[2022-12-16] MEDS: HEPARIN 5000 UNIT/ML 1 ML VIAL ONE ×3 (14:00→14:50)
[2022-12-16] MEDS ORDERED: NA CHLORIDE 0.9% 500 ML ONE (14:12)
[2022-12-16] MEDS ORDERED: propofoL 200 MG/20 ML VIAL IV ONE ×2 (14:18→15:20)
[2022-12-16] MEDS ORDERED: LIDOCAINE 2% MPF 5 ML VIAL ONE (14:19)
[2022-12-16] MEDS ORDERED: MIDAZOLAM HCL 2 MG/2 ML INJ ONE (14:19)
[2022-12-16] MEDS ORDERED: CEFAZOLIN SODIUM 1 GM/VIAL ONE (14:20)
--- NOTE | 2022-12-16 15:34 | P.OP ---
Preoperative diagnosis: End Stage Renal Disease / LEFT Pleural Effusion Postoperative diagnosis: End Stage Renal Disease / LEFT Pleural Effusion Primary procedure: Placement of RIGHT Internal Juguler Tunnelled HD Catheter using US/ Flouro Secondary procedure: Ultrasound guided LEFT Thoracentesis Anesthesia: MAC + Local Estimated blood loss: <5cc Specimen: Pleural Fluid Findings: 2 Liters staw colored pleural fluid, cath @ SVC Complications: None Implants: 19cm Hemosplit Catheter Transferred to: Recovery Room Condition: Good
[2022-12-16 15:39] LABS: Hepatitis B Core Ab, Total Nonreactive (Nonreactive); Hepatitis B Surface Ab - Quant < 3.10 mIU/mL (<8.0)
--- NOTE | 2022-12-16 15:55 | RAD REPORT ---
EXAM DESCRIPTION: RAD - Fluoroscopy <1 Hour - 12/16/2022 3:50 pm CLINICAL HISTORY: Venous catheter insertion. HD CATH PLACEMENT COMPARISON: <Comparisons> FINDINGS: Fluoroscopic imaging is submitted from placement of a venous catheter. Details of the pro cedure not available. Fluoroscopy time: 0.3 minutes.
--- NOTE | 2022-12-16 16:25 | RAD REPORT ---
EXAM DESCRIPTION: RAD - Chest Single View - 12/16/2022 4:11 pm CLINICAL HISTORY: S/P HD CATH PLACEMENT AND LEFT THORACENTSIS Chest pain. COMPARISON: Chest Single View dated 12/15/2022; Chest Single View dated 12/14/2022; Chest Single View dated 12/13/2022; Chest Pa And Lat (2 Views) dated 12/10/2022 FINDINGS: Portable technique limits examination quality. Moderate bilateral pulmonary opacities are present likely pulmonary edema. Small bilateral pleural ef fusions. The heart is mildly enlarged with dual lead pacer device. Right-sided dialysis catheter its tip in the SVC.No postprocedure pneumothorax.
[2022-12-16] MEDS ORDERED: POTASSIUM CL SA 10 MEQ TAB PO ONE (20:00)
[2022-12-16] MEDS ORDERED: ALBUMIN HUMAN 25% 100 ML IV ONE ×2 (20:47→20:56)
--- NOTE | 2022-12-16 22:02 | P.PN ---
Date of Service: 12/16/22 Vital Signs Temp Pulse Resp BP Pulse Ox 97 F 60 16 119/58 L 94 12/16/22 16:29 12/16/22 16:29 12/16/22 16:29 12/16/22 16:29 12/16/22 16:00 Medications Albuterol Sulfate (Albuterol 2.5 Mg/3 Ml Neb Ledy) 2.5 mg NEB [id number] PRN PRN Reason: SHORTNESS OF BREATH Last Admin: 12/16/22 04:00 Dose: 2.5 mg Amiodarone HCl (Amiodarone Hcl 200 Mg Tab) 400 mg PO BID [facility] Last Admin: 12/16/22 08:35 Dose: Not Given Benzonatate (Benzonatate 100 Mg Cap) 100 mg PO TID PRN PRN Reason: COUGH Last Admin: 12/13/22 21:34 Dose: 100 mg Buspirone HCl (Buspirone Hcl 5 Mg Tablet) 10 mg PO BID [facility] Last Admin: 12/16/22 08:34 Dose: Not Given Docusate Sodium (Docusate Na 100 Mg Cap) 100 mg PO DAILY PRN PRN Reason: CONSTIPATION Furosemide (Furosemide 40 Mg/4 Ml Vial) 40 mg IV Q12H [facility] Last Admin: 12/16/22 12:10 Dose: 40 mg Heparin Sodium (Porcine) (Heparin 1,000 Unit/Ml Vial) 4,000 unit IV EVERY HD PRN PRN Reason: CVC patency Albumin Human (Albumin 25%) 100 mls @ 100 mls/hr IV 1X ONE Stop: 12/16/22 21:55 Ipratropium Jones (Ipratropium Brom 0.5mg/2.5ml) 0.5 mg NEB [id number] [facility] Last Admin: 12/16/22 14:00 Dose: Not Given Metoprolol Tartrate (Metoprolol Tar 25 Mg Tab) 25 mg PO BID [facility] Last Admin: 12/16/22 08:35 Dose: Not Given Ondansetron HCl (Ondansetron 4 Mg/2 Ml Vial) 4 mg IV Q6HP PRN PRN Reason: NAUSEA / VOMITING Last Admin: 12/15/22 11:03 Dose: 4 mg Prednisone (Prednisone 10 Mg Tab) 10 mg PO DAILY [facility] Last Admin: 12/16/22 08:35 Dose: Not Given Sodium Chloride (Flush Normal Saline 10 Ml) 10 ml IV BID ANGELI Last Admin: 12/16/22 08:32 Dose: 10 ml Microbiology Results 12/09/22 21:40 Blood - Blood Aerobic Blood Culture - Final No growth in 5 days. 12/09/22 21:40 Blood - Blood Anaerobic Blood Culture - Final No growth in 5 days. 12/09/22 21:20 Blood - Blood Aerobic Blood Culture - Final No growth in 5 days. 12/09/22 21:20 Blood - Blood Anaerobic Blood Culture - Final No growth in 5 days. Assessment/ Plan: Nephrology No dyspnea No chest pain Feeling better No acute events overnight Vitals, medications, blood work and imaging reviewed in the chart. NAD. NCAT. MMM. Normal Respiratory Effort. S1S2. ND Abd. No C/C/E. No rash. AAO. Normal speech. Stage II MEHREEN in the setting of CRS CKD IIIb -No NSAIDs -Continue Furosemide -TDC placed today and HD initiated Hyponatremia -Continue Furosemide -Caution with excess free water HTN with CKD/ CHF -Discontinue Amlodipine Diastolic CHF, chronic -Low sodium diet -Daily weight -Change IV Lasix to oral Torsemide Anemia in chronic illness -Monitor H&H -Retacrit PRN CKD MBD -Continue Ergo Case reviewed with Dr. Alonzo and Dr. Falcon All Active Problems Acute on chronic respiratory failure with hypoxia (Acute) Hematoma (Acute) Pleural effusion (Acute) Troponin level elevated (Acute) CAD (coronary artery disease) (Chronic) CHF (congestive heart failure) (Chronic) CKD (chronic kidney disease) stage 3, GFR 30-59 ml/min (Chronic) HTN (hypertension) (Chronic) Acute bronchitis with COPD (Acute) Acute exacerbation of CHF (congestive heart failure) (Acute 07/28/18) Acute on chronic diastolic (congestive) heart failure (Acute) Acute on chronic renal failure (Acute) Acute renal failure (Acute) Acute respiratory failure with hypercapnia (Acute) Acute respiratory failure with hypoxia (Acute) Atrial fibrillation (Acute) CHF (congestive heart failure) (Acute) COPD exacerbation (Acute) COPD exacerbation (Acute) COPD exacerbation (Acute) Chest pain (Acute) Chronic diastolic heart failure (Acute) Hypercapnic respiratory failure (Acute) Pneumonia (Acute) Respiratory distress (Acute) Respiratory failure with hypoxia and hypercapnia (Acute) Acute on chronic diastolic heart failure (Chronic) CKD (chronic kidney disease) stage 3, GFR 30-59 ml/min (Chronic) HTN (hypertension) (Chronic) Nicotine dependence (Chronic)
--- NOTE | 2022-12-16 22:51 | P.PN ---
Subjective Date of Service: 12/16/22 Primary Care Provider: Tera Chief Complaint: Pleural effusion with a hematoma on the left chest No acute events overnight. He reports no significant changes in his breathing. He has been NPO past midnight in anticipation for a thoracentesis and HD catheter placement today. He denies any chest pain, palpitations, or abdominal pain. Review of Systems 10-point ROS is otherwise unremarkable Respiratory: Shortness of Breath Physical Examination - Vital Signs Temperature: 97 F Blood Pressure: 119/58 Pulse: 60 Respirations: 16 Pulse Ox (%): 94 Assessment And Plan - Plan - Physical Exam General: Alert, In no apparent distress, Oriented x3 HEENT: Atraumatic, Sclerae nonicteric Neck: JVD not distended Respiratory: Diminished, Crackles/rales (faint bibasilar) Cardiovascular: Regular rate/rhythm, No murmurs, Other (hematoma noted on left chest wall), Edema (1+ BLE) Gastrointestinal: Normal bowel sounds, Soft, Non-distended, No tenderness Musculoskeletal: No clubbing Integumentary: No rashes Neurological: Normal speech, Normal affect # Moderate-Large Left Pleural Effusion on Chronic Respiratory Failure due to Chronic Obstructive Pulmonary Disease on Home Oxygen (2 L) # Suspect Steroid-Induced Leukocytosis # Tobacco Use Disorder - Evaluation thus far: - Chest x-ray (12/09) = "portable technique limits examination quality. Moderately severe left-sided lung opacities are present probably asymmetric pulmonary edema or possibly pneumonia. Small to moderate right pleural effusion appears similar to the comparative study. The heart is moderately enlarged. Dual lead pacer/defibrillator device present." - CT chest (12/09) = "moderate to large left pleural effusion. Probable asymmetric pulmonary edema." - Chest x-ray (12/10) = "moderate to large left pleural similar to mildly increased in size since 12/09/2022. Small to moderate right pleural effusion is grossly similar. Background of pulmonary edema suspected" - Chest x-ray (12/13) = "no significant change in a moderate to large left pleural effusion. Small right pleural effusion. Mild stable bilateral pulmonary opacities. Cardiomegaly. Pacemaker leads in place." - Chest x-ray (12/14) = "stable bilateral airspace opacities, which could reflect pneumonia, although superimposed central congestion/ CHF may be possible." - Management plan: - Pulmonology consulted and spoke with Dr. Carter - recommendations appreciated - Plan for thoracentesis today under anesthesia with Dr. Falcon - Per Dr. Carter, last clopidogrel dose was on 12/10/2022 - Continue home prednisone and bronchodilators - Consulted Respiratory Therapy - Supplemental oxygen to maintain SpO2 > 92% - Tobacco cessation counseling - Encouraged incentive spirometry # Acute Kidney Injury on Chronic Kidney Disease Stage III - Nephrology consulted and spoke with Dr. Roy- recommendations appreciated - Given his worsening renal function, Nephrology feels that he may benefit from initialization of hemodialysis - General Surgery consulted and spoke with Dr. Falcon - recommendations appreciated - Plan for HD cath placement today - Creatinine = 2.63 -> 2.86 -> 3.70 -> 3.78 -> 3.70 -> 3.51 -> 3.22 -> 3.24 - Diuretics per Nephrology - Monitor creatinine and urine output - Renally dose medications # Left Chest Wall Hematoma # Chronic Compensated Systolic Congestive Heart Failure # Suspect Type II Non-ST Segment Elevation Myocardial Infarction (Demand Ischemia) secondary to above # Coronary Artery Disease # Hypertension # Dyslipidemia - Cardiac catheterization on 02/01/2022 revealed severe coronary artery disease and recommendation at the time was medical management - Cardiology consulted and spoke with Dr. Hussein - recommendations appreciated - EKG = without STEMI criteria - Troponin trend = 120.1 -> 119.0 - NT-Pro BNP = 30,472 - Continue home metoprolol, furosemide - Hold home aspirin, clopidogrel due to hematoma # Chronic Atrial Fibrillation s/p PPM # History of Ventricular Tachycardia s/p AICD His [id number] = 4 (CHF=1, HTN=1, CAD=1, Age 65-74=1), which typically warrants anticoagulation. - For rate control: - Continue metoprolol, amiodarone - For anticoagulation: - Hold home apixaban due to hematoma Hernan Alonzo M.D.
--- NOTE | 2022-12-16 23:49 | OP ---
Date of Procedure: 12/16/2022 Surgeon: Idris Falcon MD, Preoperative Diagnosis: End-stage renal disease/left pleural effusion. Postoperative Diagnosis: End-stage renal disease/left pleural effusion. Procedures Performed: 1.Placement of a puncture site. 2.Placement of a right internal jugular tunneled hemodialysis catheter using ultrasound guidance and fluoroscopy with interpretation. 3.Ultrasound guided left thoracentesis. Anesthesia: MAC plus local with 0.25% Marcaine. Estimated Blood Loss: Less than 5 cc. Specimens: Pleural fluid. Findings: Approximately 2 L of straw-colored pleural fluid was removed from the left thoracic cavity and the 19 cm HemoSplit catheter was placed in the right internal jugular vein at the confluence of the SVC. Complications: None. Implants: 19 cm HemoSplit catheter. Disposition: The patient transferred to the recovery room in good condition. Procedure In Detail: The patient was brought to the operating room, prepped and draped in usual ster ile fashion, remained in the lateral position throughout the procedure. At this point, I anesthetize d the area overlying the left 4th to 5th intercostal space on the posterior in the back/infrascapular region. I used ultrasound guidance at this point and localized the area of a safe entry going over the rib into a large left pleural effusion. After appropriately anesthetizing the skin, I used a fin jose needle to anesthetize the entire tract under ultrasound guidance. I placed the pigtail thoracic catheter to perform a thoracentesis at this point and hooked up the assembly equipment. We pulled ap proximately 2 L of straw-colored fluid out of the left thoracic cavity. There was no blood or bloody tap appreciated throughout the procedure. The catheter was placed over the rib and the catheter ult imately was removed at the end of the procedure, and the area was once again cleansed, and a sterile dressing was placed over top. I then turned my attention to the hemodialysis catheter. The patient was then laid in the supine position, prepped and draped once again in the usual sterile fashion. Af ter adequate anesthesia was maintained, the patient was placed in steep Trendelenburg position and us ing ultrasound guidance, I cannulated the right internal jugular vein on the first attempt. A microi ntroducer set was utilized to cannulate the right internal jugular vein. I advanced a microwire unde r the confluence of the SVC into the right atrium under fluoroscopic guidance at this point with inte rpretation. I then made a dillan incision overlying the insertion site and placed the introducer sheat h at this point for the micro set. At this point, the wire was exchanged for the standard wire and a 19 cm HemoSplit catheter was attached to the tunneling device. I found a region on the chest wall, which was appropriate at the infraclavicular region. Appropriately anesthetizing the skin in the ent eleno tract, I made an incision with a 15 blade. I then passed the tunneling device, carrying the cath eter up through the insertion site, and oriented properly, got an x-ray to ensure position was adequa te for the confluence of the SVC. At this point, I performed sequential dilatation using Seldinger t echnique after removing the microwire set and then placed the introducer sheath at this point under f luoroscopic guidance. I advanced the catheter, which was placed in the confluence of the SVC without evidence of complication. The introducer sheath was completely removed at this point. I then flush ed and pulled back dark red nonpulsatile blood throughout the procedure and at the end of the procedu re as well. I then flushed these ports with saline at this point and then heparin super flush and 2 cc per port was then placed. I then secured the catheter into the chest wall and fluoroscopic guidan ce confirmed position at the confluence of the SVC. The patient was taken out of Trendelenburg posit ion. A sterile dressing was then placed over top. The patient tolerated the procedure well without evidence of complication and transferred to PACU in good condition. All counts were correct at the e nd of the case. TK/MODL Voice ID: [id number] Report ID: [id number]
[2022-12-17] MEDS: IPRATROPIUM BROM 0.5MG/2.5ML NEB SCH ×4 (01:30→19:45)
[2022-12-17] MEDS: ALBUTEROL 2.5 MG/3 ML NEB SOL NEB PRN ×2 (01:30→08:47)
[2022-12-17 06:11] LABS: Absolute Lymphocytes (CBC) 0.3 K/uL (0.7-4.9); Hematocrit 25.5 % (39.6-49.0); Lymphocytes % 3.9 % (15.3-44.8); MPV 9.9 fL (7.6-11.3); RBC Red Blood Cell Count 2.84 M/uL (4.33-5.43)
[2022-12-17 06:26] LABS: Potassium 3.3 mEq/L (3.5-5.1)
[2022-12-17] MEDS: BUSPIRONE HCL 5 MG TABLET PO SCH ×2 (08:11→20:24)
[2022-12-17] MEDS: TORSEMIDE 20 MG TAB PO SCH ×2 (08:11→16:30)
[2022-12-17] MEDS: predniSONE 10 MG TAB PO SCH (08:12)
[2022-12-17] MEDS: METOPROLOL TAR 25 MG TAB PO SCH ×2 (08:12→20:25)
[2022-12-17] MEDS: DULERA 200/5 (MOMETASONE/FORMOTEROL) INHALER IH SCH ×2 (08:12→20:36)
[2022-12-17] MEDS: AMIODARONE HCL 200 MG TAB PO SCH ×2 (08:12→20:25)
[2022-12-17] MEDS ORDERED: POTASSIUM 25 MEQ EFFERV TAB PO ONE (09:00)
[2022-12-17] MEDS ORDERED: POTASSIUM CL SA 10 MEQ TAB PO ONE ×2 (09:00)
[2022-12-17 09:27] LABS: White Blood Cell Scan OK (OK)
[2022-12-17 09:28] LABS: Blood Morphology Comment NOT SEEN (NOT SEEN); Platelet Estimate DECR
[2022-12-17] MEDS ORDERED: ALBUMIN HUMAN 25% 100 ML IV ONE (10:27)
--- NOTE | 2022-12-17 16:09 | P.PN ---
Nephrology note: (S) s/p Rt IJ TDC and Lt sided thoracentesis in OR yesterday, pt seen resting comfortably earlier, reports breathing easier (O) Vitals reviewed in the EMR General: Chronically ill, cachectic HEENT: Atraumatic, Normocephalic, PERRLA, EOMI, LFNC Neck: Supple, Rt iJ TDC Respiratory: Other (non tachypnec, reduced BS bases Cardiovascular: No sig edema, non tachy Gastrointestinal: Soft and benign, Non-distended, No tenderness Musculoskeletal: No swelling, No contractures, No erythema, muscle mass loss noted Integumentary: Extensive ecchymoses across left chest/flank, Other (xerosis) Neurological: Normal speech, Normal tone, Normal affect Conclusions/Impression: -Recurrent MEHREEN episodes over the past year, underlying CKD Stage IIIb more chronically. Stage II MEHREEN developed on this admission in the setting of multifactorial etiology. Azotemia mod to severe. Renal function tests remained well above baseline and while pt claims to be producing urine, no sig UOP documented/recorded, recommend proceeding with a trial of HD/UF to optimize fluid balance and address ARF on CKD -s/p Rt IJ TDC, will repeat HD today, will ask CM to refer to [facility] clinic for OP HD in ARF status -Recent echo confirmed continued LVEF dysfunction, global hypokinesis, BNP chronically/sig elevated, s/p ICD. In the setting of recurrent AKIs and hx of hyperkalemia, hd not been able to add low dose Entresto but since initiated on dialysis, will seek to add on if BP remains stable with UF. Cont to monitor for now -Spironolactone can then also be resumed when on HD without concern for hyperkalemia -Cont PO loop diuretics -Monitor BP closely. Target BP < 130/80 -s/p thoracentesis for the large left pleural effusion. F/u pleural studies Yossi Fiore MD, ÁNGEL
--- NOTE | 2022-12-17 19:23 | P.PN ---
Subjective Date of Service: 12/17/22 Primary Care Provider: Tera Chief Complaint: Pleural effusion with a hematoma on the left chest He underwent a left-sided thoracentesis and hemodialysis catheter placement yesterday. He tolerated the procedure well. He reports significant improvement in his breathing this morning. He tolerated hemodialysis, without any issues. We will begin discharge planning, but will need an outpatient dialysis chair prior to discharge. He denies any chest pain, palpitations, or abdominal pain. Review of Systems 10-point ROS is otherwise unremarkable Respiratory: Shortness of Breath (improved) Physical Examination - Vital Signs Temperature: 98.4 F Blood Pressure: 106/56 Pulse: 61 Respirations: 16 Pulse Ox (%): 96 Assessment And Plan - Plan - Physical Exam General: Alert, In no apparent distress, Oriented x3 HEENT: Atraumatic, Sclerae nonicteric Neck: JVD not distended Respiratory: Diminished, Crackles/rales (faint bibasilar) Cardiovascular: Regular rate/rhythm, No murmurs, Other (hematoma noted on left chest wall), Edema (trace-1+ BLE) Gastrointestinal: Normal bowel sounds, Soft, Non-distended, No tenderness Musculoskeletal: No clubbing Integumentary: No rashes Neurological: Normal speech, Normal affect # Moderate-Large Left Pleural Effusion on Chronic Respiratory Failure due to Chronic Obstructive Pulmonary Disease on Home Oxygen (2 L) # Suspect Steroid-Induced Leukocytosis # Tobacco Use Disorder - Evaluation thus far: - Chest x-ray (12/09) = "portable technique limits examination quality. Moderately severe left-sided lung opacities are present probably asymmetric pulmonary edema or possibly pneumonia. Small to moderate right pleural effusion appears similar to the comparative study. The heart is moderately enlarged. Dual lead pacer/defibrillator device present." - CT chest (12/09) = "moderate to large left pleural effusion. Probable asymmetric pulmonary edema." - Chest x-ray (12/10) = "moderate to large left pleural similar to mildly increased in size since 12/09/2022. Small to moderate right pleural effusion is grossly similar. Background of pulmonary edema suspected" - Chest x-ray (12/13) = "no significant change in a moderate to large left pleural effusion. Small right pleural effusion. Mild stable bilateral pulmonary opacities. Cardiomegaly. Pacemaker leads in place." - Chest x-ray (12/14) = "stable bilateral airspace opacities, which could reflect pneumonia, although superimposed central congestion/ CHF may be possible." - Chest x-ray (12/15) = "moderate left pleural effusion and small right pleural effusion appears unchanged. Bilateral pulmonary opacities presumably related to pulmonary edema appear unchanged. The heart is moderately enlarged. Multi lead pacer device is present." - Chest x-ray (12/16) = "moderate bilateral pulmonary opacities are present likely pulmonary edema. Small bilateral pleural effusions. The heart is mildly enlarged with dual lead pacer device. Right-sided dialysis catheter its tip in the SVC.No postprocedure pneumothorax." - Management plan: - Pulmonology consulted and spoke with Dr. Carter - recommendations appreciated - S/P thoracentesis on 12/16/2022 - Per Dr. Carter, last clopidogrel dose was on 12/10/2022 - Continue home prednisone and bronchodilators - Consulted Respiratory Therapy - Supplemental oxygen to maintain SpO2 > 92% - Tobacco cessation counseling - Encouraged incentive spirometry # Acute Kidney Injury on Chronic Kidney Disease Stage III now on Hemodialysis - Nephrology consulted and spoke with Dr. Fiore - recommendations appreciated - Given his worsening renal function, Nephrology feels that he may benefit from initialization of hemodialysis - General Surgery consulted and spoke with Dr. Falcon - recommendations appreciated - S/P HD catheter placement on 12/16/2022 - Diuretics per Nephrology - Monitor creatinine and urine output - Renally dose medications # Left Chest Wall Hematoma # Chronic Compensated Systolic Congestive Heart Failure # Suspect Type II Non-ST Segment Elevation Myocardial Infarction (Demand Ischemia) secondary to above # Coronary Artery Disease # Hypertension # Dyslipidemia - Cardiac catheterization on 02/01/2022 revealed severe coronary artery disease and recommendation at the time was medical management - Cardiology consulted and spoke with Dr. Hussein - recommendations appreciated - EKG = without STEMI criteria - Troponin trend = 120.1 -> 119.0 - NT-Pro BNP = 30,472 - Continue home metoprolol, furosemide - Hold home aspirin, clopidogrel due to hematoma # Chronic Atrial Fibrillation s/p PPM # History of Ventricular Tachycardia s/p AICD His [id number] = 4 (CHF=1, HTN=1, CAD=1, Age 65-74=1), which typically warrants anticoagulation. - For rate control: - Continue metoprolol, amiodarone - For anticoagulation: - Hold home apixaban due to hematoma Hernan Alonzo M.D.
[2022-12-17] MEDS ORDERED: BISACODYL E.C. 5 MG TAB PO ONE (21:48)
[2022-12-18] MEDS: IPRATROPIUM BROM 0.5MG/2.5ML NEB SCH ×4 (01:50→19:58)
[2022-12-18 06:39] LABS: Absolute Lymphocytes (CBC) 0.4 K/uL (0.7-4.9); Hematocrit 26.4 % (39.6-49.0); Lymphocytes % 4.1 % (15.3-44.8); MCV 89.8 fL (80-100); MPV 9.3 fL (7.6-11.3); RBC Red Blood Cell Count 2.94 M/uL (4.33-5.43)
[2022-12-18] MEDS: ALBUTEROL 2.5 MG/3 ML NEB SOL NEB PRN ×3 (07:25→19:58)
[2022-12-18] MEDS: BUSPIRONE HCL 5 MG TABLET PO SCH ×2 (09:27→20:32)
[2022-12-18] MEDS: TORSEMIDE 20 MG TAB PO SCH ×2 (09:27→16:34)
[2022-12-18] MEDS: METOPROLOL TAR 25 MG TAB PO SCH ×2 (09:27→20:32)
[2022-12-18] MEDS: AMIODARONE HCL 200 MG TAB PO SCH ×2 (09:28→20:33)
[2022-12-18] MEDS: predniSONE 10 MG TAB PO SCH (09:28)
[2022-12-18] MEDS: DOCUSATE NA 100 MG CAP PO PRN (09:29)
[2022-12-18] MEDS: DULERA 200/5 (MOMETASONE/FORMOTEROL) INHALER IH SCH ×2 (09:30→20:33)
--- NOTE | 2022-12-18 10:00 | P.PN ---
Subjective Date of Service: 12/18/22 Primary Care Provider: Tera Chief Complaint: Pleural effusion with a hematoma on the left chest Patient is improving s/p dialysis hematoma is declining on the left side planing of feeling constipated Review of Systems General: Weakness Respiratory: Shortness of Breath Physical Examination - Vital Signs Temperature: 97.9 F Blood Pressure: 120/65 Pulse: 61 Respirations: 16 Pulse Ox (%): 100 - Physical Exam General: Alert, In no apparent distress, Oriented x3 Respiratory: Clear to auscultation bilaterally, Diminished Cardiovascular: No edema, Regular rate/rhythm, Normal S1 S2 Assessment And Plan - Current Problems (Diagnosis) (1) Hematoma Current Visit: Yes Status: Acute Plan: Hematoma resolving doom anticoagulation globin stable (2) CKD (chronic kidney disease) stage 3, GFR 30-59 ml/min Current Visit: Yes Status: Chronic Plan: Patient is now on dialysis s/p therapy therapeutic thoracentesis signs oxygenation stable charge planning Qualifiers: Chronic kidney disease stage 3 subtype: stage 3b (GFR 30-44) Qualified Code(s): N18.32 - Chronic kidney disease, stage 3b (3) Pleural effusion Current Visit: Yes Status: Acute Plan: It is post sided thoracentesis Kniffen improvement in the chest x-ray Physician Review: Patient Assessed, Agree with Above Assessment and Plan
--- NOTE | 2022-12-18 19:44 | P.PN ---
Subjective Date of Service: 12/18/22 Primary Care Provider: Tera Chief Complaint: Pleural effusion with a hematoma on the left chest No acute events overnight. He is doing well this morning. He will need an outpatient dialysis chair placement prior to discharge. This is unlikely to occur over the weekend. He denies any chest pain, palpitations, or abdominal pain. Review of Systems 10-point ROS is otherwise unremarkable Respiratory: Shortness of Breath (improved) Physical Examination - Vital Signs Temperature: 97.9 F Blood Pressure: 111/60 Pulse: 60 Respirations: 16 Pulse Ox (%): 100 Assessment And Plan - Plan - Physical Exam General: Alert, In no apparent distress, Oriented x3 HEENT: Atraumatic, Sclerae nonicteric Neck: JVD not distended Respiratory: Diminished, otherwise fairly clear to auscultation Cardiovascular: Regular rate/rhythm, No murmurs, Other (hematoma noted on left chest wall - improving), Edema (trace-1+ BLE) Gastrointestinal: Normal bowel sounds, Soft, Non-distended, No tenderness Musculoskeletal: No clubbing Integumentary: No rashes Neurological: Normal speech, Normal affect # Moderate-Large Left Pleural Effusion on Chronic Respiratory Failure due to Chronic Obstructive Pulmonary Disease on Home Oxygen (2 L) # Suspect Steroid-Induced Leukocytosis # Tobacco Use Disorder - Evaluation thus far: - Chest x-ray (12/09) = "portable technique limits examination quality. Moderately severe left-sided lung opacities are present probably asymmetric pulmonary edema or possibly pneumonia. Small to moderate right pleural effusion appears similar to the comparative study. The heart is moderately enlarged. Dual lead pacer/defibrillator device present." - CT chest (12/09) = "moderate to large left pleural effusion. Probable asymmetric pulmonary edema." - Chest x-ray (12/10) = "moderate to large left pleural similar to mildly increased in size since 12/09/2022. Small to moderate right pleural effusion is grossly similar. Background of pulmonary edema suspected" - Chest x-ray (12/13) = "no significant change in a moderate to large left pleural effusion. Small right pleural effusion. Mild stable bilateral pulmonary opacities. Cardiomegaly. Pacemaker leads in place." - Chest x-ray (12/14) = "stable bilateral airspace opacities, which could reflect pneumonia, although superimposed central congestion/ CHF may be possible." - Chest x-ray (12/15) = "moderate left pleural effusion and small right pleural effusion appears unchanged. Bilateral pulmonary opacities presumably related to pulmonary edema appear unchanged. The heart is moderately enlarged. Multi lead pacer device is present." - Chest x-ray (12/16) = "moderate bilateral pulmonary opacities are present likely pulmonary edema. Small bilateral pleural effusions. The heart is mildly enlarged with dual lead pacer device. Right-sided dialysis catheter its tip in the SVC.No postprocedure pneumothorax." - Management plan: - Pulmonology consulted and spoke with Dr. Carter - recommendations appreciated - S/P thoracentesis on 12/16/2022 - Per Dr. Carter, last clopidogrel dose was on 12/10/2022 - Continue home prednisone and bronchodilators - Consulted Respiratory Therapy - Supplemental oxygen to maintain SpO2 > 92% - Tobacco cessation counseling - Encouraged incentive spirometry # Acute Kidney Injury on Chronic Kidney Disease Stage III now on Hemodialysis - Nephrology consulted and spoke with Dr. Roy - recommendations appreciated - Given his worsening renal function, Nephrology feels that he may benefit from initialization of hemodialysis - General Surgery consulted and spoke with Dr. Falcon - recommendations appreciated - S/P HD catheter placement on 12/16/2022 - Diuretics per Nephrology - Monitor creatinine and urine output - Renally dose medications # Left Chest Wall Hematoma # Chronic Compensated Systolic Congestive Heart Failure # Suspect Type II Non-ST Segment Elevation Myocardial Infarction (Demand I schemia) secondary to above # Coronary Artery Disease # Hypertension # Dyslipidemia - Cardiac catheterization on 02/01/2022 revealed severe coronary artery disease and recommendation at the time was medical management - Cardiology consulted and spoke with Dr. Hussein - recommendations appreciated - Hold home aspirin, clopidogrel due to hematoma - Recommended restarting aspirin only once hematoma improves - EKG = without STEMI criteria - Troponin trend = 120.1 -> 119.0 - NT-Pro BNP = 30,472 - Continue home metoprolol, furosemide # Chronic Atrial Fibrillation s/p PPM # History of Ventricular Tachycardia s/p AICD His [id number] = 4 (CHF=1, HTN=1, CAD=1, Age 65-74=1), which typically warrants anticoagulation. - For rate control: - Continue metoprolol, amiodarone - For anticoagulation: - Hold home apixaban due to hematoma Hernan Alonzo M.D.
[2022-12-18] MEDS: ROSUVASTATIN 10 MG TAB PO SCH (20:32)
[2022-12-18] MEDS: APIXABAN 5 MG TABLET PO SCH (20:33)
--- NOTE | 2022-12-18 20:44 | P.PN ---
Date of Service: 12/18/22 Vital Signs Temp Pulse Resp BP Pulse Ox 97.9 F 60 16 112/61 100 12/18/22 19:46 12/18/22 20:32 12/18/22 19:46 12/18/22 20:32 12/18/22 19:46 Medications Hydrocodone Bitart/Acetaminophen (Hydrocodone/Apap 5/325 Mg Tab) 1 tab PO Q6H PRN PRN Reason: PAIN Albuterol Sulfate (Albuterol 2.5 Mg/3 Ml Neb Ledy) 2.5 mg NEB [id number] PRN PRN Reason: SHORTNESS OF BREATH Last Admin: 12/18/22 19:58 Dose: 2.5 mg Amiodarone HCl (Amiodarone Hcl 200 Mg Tab) 400 mg PO BID [facility] Last Admin: 12/18/22 20:33 Dose: 400 mg Apixaban (Apixaban 5 Mg Tablet) 5 mg PO BID [facility] Last Admin: 12/18/22 20:33 Dose: 5 mg Aspirin (Aspirin Ec 81 Mg Tab) 81 mg PO DAILY [facility] Benzonatate (Benzonatate 100 Mg Cap) 100 mg PO TID PRN PRN Reason: COUGH Last Admin: 12/13/22 21:34 Dose: 100 mg Buspirone HCl (Buspirone Hcl 5 Mg Tablet) 10 mg PO BID [facility] Last Admin: 12/18/22 20:32 Dose: 10 mg Docusate Sodium (Docusate Na 100 Mg Cap) 100 mg PO DAILY PRN PRN Reason: CONSTIPATION Last Admin: 12/18/22 09:29 Dose: 100 mg Heparin Sodium (Porcine) (Heparin 1,000 Unit/Ml Vial) 4,000 unit IV EVERY HD PRN PRN Reason: CVC patency Heparin Sodium (Porcine) (Heparin 1,000 Unit/Ml Vial) 2,000 unit IV EVERY HD PRN PRN Reason: Prevent Lines Clotting Last Admin: 12/17/22 11:57 Dose: 2,000 unit Ipratropium [place] (Ipratropium Brom 0.5mg/2.5ml) 0.5 mg NEB [id number] [facility] Last Admin: 12/18/22 19:58 Dose: 0.5 mg Metoprolol Tartrate (Metoprolol Tar 25 Mg Tab) 25 mg PO BID [facility] Last Admin: 12/18/22 20:32 Dose: 25 mg Ondansetron HCl (Ondansetron 4 Mg/2 Ml Vial) 4 mg IV Q6HP PRN PRN Reason: NAUSEA / VOMITING Last Admin: 12/15/22 11:03 Dose: 4 mg Prednisone (Prednisone 10 Mg Tab) 10 mg PO DAILY [facility] Last Admin: 12/18/22 09:28 Dose: 10 mg Rosuvastatin Calcium (Rosuvastatin 10 Mg Tab) 20 mg PO BEDTIME [facility] Last Admin: 12/18/22 20:32 Dose: 20 mg Sodium Chloride (Flush Normal Saline 10 Ml) 10 ml IV BID [facility] Last Admin: 12/18/22 20:34 Dose: 10 ml Torsemide (Torsemide 20 Mg Tab) 20 mg PO BIDL [facility] Last Admin: 12/18/22 16:34 Dose: 20 mg Microbiology Results 12/09/22 21:40 Blood - Blood Aerobic Blood Culture - Final No growth in 5 days. 12/09/22 21:40 Blood - Blood Anaerobic Blood Culture - Final No growth in 5 days. 12/09/22 21:20 Blood - Blood Aerobic Blood Culture - Final No growth in 5 days. 12/09/22 21:20 Blood - Blood Anaerobic Blood Culture - Final No growth in 5 days. Assessment/ Plan: Nephrology No dyspnea No chest pain Feeling better with HD No acute events overnight Vitals, medications, blood work and imaging reviewed in the chart. NAD. NCAT. MMM. Normal Respiratory Effort. S1S2. ND Abd. No C/C/E. No rash. AAO. Normal speech. Stage II MEHREEN in the setting of CRS CKD IIIb -No NSAIDs -Continue Furosemide -HD TIW Hyponatremia -HD TIW HTN with CKD/ CHF -Continue Metoprolol Diastolic CHF, chronic -Low sodium diet -Daily weight -Continue Torsemide Anemia in chronic illness -Monitor H&H -Retacrit PRN CKD MBD -Continue Ergo Case reviewed with Dr. Alonzo All Active Problems Acute on chronic respiratory failure with hypoxia (Acute) Hematoma (Acute) Pleural effusion (Acute) Troponin level elevated (Acute) CAD (coronary artery disease) (Chronic) CHF (congestive heart failure) (Chronic) CKD (chronic kidney disease) stage 3, GFR 30-59 ml/min (Chronic) HTN (hypertension) (Chronic) Acute bronchitis with COPD (Acute) Acute exacerbation of CHF (congestive heart failure) (Acute 07/28/18) Acute on chronic diastolic (congestive) heart failure (Acute) Acute on chronic renal failure (Acute) Acute renal failure (Acute) Acute respiratory failure with hypercapnia (Acute) Acute respiratory failure with hypoxia (Acute) Atrial fibrillation (Acute) CHF (congestive heart failure) (Acute) COPD exacerbation (Acute) COPD exacerbation (Acute) COPD exacerbation (Acute) Chest pain (Acute) Chronic diastolic heart failure (Acute) Hypercapnic respiratory failure (Acute) Pneumonia (Acute) Respiratory distress (Acute) Respiratory failure with hypoxia and hypercapnia (Acute) Acute on chronic diastolic heart failure (Chronic) CKD (chronic kidney disease) stage 3, GFR 30-59 ml/min (Chronic) HTN (hypertension) (Chronic) Nicotine dependence (Chronic)
[2022-12-18] MEDS ORDERED: HOME MED 1 EA UNK (Rosuvastatin Calcium [Crestor] 20 MG Tablet) PO SCH (21:00)
[2022-12-19] MEDS: IPRATROPIUM BROM 0.5MG/2.5ML NEB SCH ×4 (01:41→20:00)
[2022-12-19] MEDS: ALBUTEROL 2.5 MG/3 ML NEB SOL NEB PRN (07:45)
[2022-12-19 08:00] LABS: Potassium 3.4 mEq/L (3.5-5.1)
[2022-12-19] MEDS: APIXABAN 5 MG TABLET PO SCH ×2 (08:46→21:00)
[2022-12-19] MEDS: TORSEMIDE 20 MG TAB PO SCH ×2 (08:46→16:38)
[2022-12-19] MEDS: ASPIRIN EC 81 MG TAB PO SCH (08:46)
[2022-12-19] MEDS: METOPROLOL TAR 25 MG TAB PO SCH ×2 (08:47→21:02)
[2022-12-19] MEDS: BUSPIRONE HCL 5 MG TABLET PO SCH ×2 (08:47→21:02)
[2022-12-19] MEDS: predniSONE 10 MG TAB PO SCH (08:47)
[2022-12-19] MEDS: AMIODARONE HCL 200 MG TAB PO SCH ×2 (08:47→21:02)
[2022-12-19] MEDS: DULERA 200/5 (MOMETASONE/FORMOTEROL) INHALER IH SCH ×2 (08:50→21:03)
[2022-12-19] MEDS ORDERED: POTASSIUM CL SA 10 MEQ TAB PO ONE (08:52)
[2022-12-19] MEDS ORDERED: EPOETIN ALFA-EPBX 10,000 UNIT/ML VIAL SQ ONE (08:52)
[2022-12-19] MEDS ORDERED: POTASSIUM 25 MEQ EFFERV TAB PO ONE (10:03)
--- NOTE | 2022-12-19 19:08 | P.PN ---
Subjective Date of Service: 12/19/22 Primary Care Provider: Tera Chief Complaint: Pleural effusion with a hematoma on the left chest No acute events overnight. He reports significant improvement in his breathing. He will need an outpatient dialysis chair placement prior to discharge. Anticipate discharge tomorrow if outpatient dialysis chair is confirmed. Review of Systems 10-point ROS is otherwise unremarkable General: Weakness (generalized) Physical Examination - Vital Signs Temperature: 98.6 F Blood Pressure: 111/64 Pulse: 64 Respirations: 21 Pulse Ox (%): 96 Assessment And Plan - Plan - Physical Exam General: Alert, In no apparent distress, Oriented x3 HEENT: Atraumatic, Sclerae nonicteric Neck: JVD not distended Respiratory: Diminished, otherwise fairly clear to auscultation Cardiovascular: Regular rate/rhythm, No murmurs, Other (hematoma noted on left chest wall - improving), Edema (trace-1+ BLE) Gastrointestinal: Normal bowel sounds, Soft, Non-distended, No tenderness Musculoskeletal: No clubbing Integumentary: No rashes Neurological: Normal speech, Normal affect # Moderate-Large Left Pleural Effusion on Chronic Respiratory Failure due to Chronic Obstructive Pulmonary Disease on Home Oxygen (2 L) # Suspect Steroid-Induced Leukocytosis # Tobacco Use Disorder - Evaluation thus far: - Chest x-ray (12/09) = "portable technique limits examination quality. Mod erately severe left-sided lung opacities are present probably asymmetric pulmonary edema or possibly pneumonia. Small to moderate right pleural effusion appears similar to the comparative study. The heart is moderately enlarged. Dual lead pacer/defibrillator device present." - CT chest (12/09) = "moderate to large left pleural effusion. Probable asymmetric pulmonary edema." - Chest x-ray (12/10) = "moderate to large left pleural similar to mildly increased in size since 12/09/2022. Small to moderate right pleural effusion is grossly similar. Background of pulmonary edema suspected" - Chest x-ray (12/13) = "no significant change in a moderate to large left pleural effusion. Small right pleural effusion. Mild stable bilateral pulmonary opacities. Cardiomegaly. Pacemaker leads in place." - Chest x-ray (12/14) = "stable bilateral airspace opacities, which could reflect pneumonia, although superimposed central congestion/ CHF may be possible." - Chest x-ray (12/15) = "moderate left pleural effusion and small right pleural effusion appears unchanged. Bilateral pulmonary opacities presumably related to pulmonary edema appear unchanged. The heart is moderately enlarged. Multi lead pacer device is present." - Chest x-ray (12/16) = "moderate bilateral pulmonary opacities are present likely pulmonary edema. Small bilateral pleural effusions. The heart is mildly enlarged with dual lead pacer device. Right-sided dialysis catheter its tip in the SVC.No postprocedure pneumothorax." - Management plan: - Pulmonology consulted and spoke with Dr. Carter - recommendations appreciated - S/P thoracentesis on 12/16/2022 - Per Dr. Carter, last clopidogrel dose was on 12/10/2022 - Continue home prednisone and bronchodilators - Consulted Respiratory Therapy - Supplemental oxygen to maintain SpO2 > 92% - Tobacco cessation counseling - Encouraged incentive spirometry # Acute Kidney Injury on Chronic Kidney Disease Stage III now on Hemodialysis - Nephrology consulted and spoke with Dr. Roy - recommendations appreciated - Given his worsening renal function, Nephrology feels that he may benefit from initialization of hemodialysis - General Surgery consulted and spoke with Dr. Falcon - recommendations appreciated - S/P HD catheter placement on 12/16/2022 - Diuretics per Nephrology - Monitor creatinine and urine output - Renally dose medications # Left Chest Wall Hematoma # Chronic Compensated Systolic Congestive Heart Failure # Suspect Type II Non-ST Segment Elevation Myocardial Infarction (Demand Ischemia) secondary to above # Coronary Artery Disease # Hypertension # Dyslipidemia - Cardiac catheterization on 02/01/2022 revealed severe coronary artery disease and recommendation at the time was medical management - Cardiology consulted and spoke with Dr. Hussein - recommendations appreciated - Hold home aspirin, clopidogrel due to hematoma - Recommended restarting aspirin only once hematoma improves - EKG = without STEMI criteria - Troponin trend = 120.1 -> 119.0 - NT-Pro BNP = 30,472 - Continue home metoprolol, furosemide # Chronic Atrial Fibrillation s/p PPM # History of Ventricular Tachycardia s/p AICD His [id number] = 4 (CHF=1, HTN=1, CAD=1, Age 65-74=1), which typically warrants anticoagulation. - For rate control: - Continue metoprolol, amiodarone - For anticoagulation: - Hold home apixaban due to hematoma Anticipate discharge once outpatient dialysis chair secured. Hernan Alonzo M.D.
--- NOTE | 2022-12-19 20:48 | PN ---
Date of Progress Note: 12/19/2022 Subjective: Seen by bedside. No acute chest pain. There is shortness of breath with improvement. Dialysis was initiated. Review of Systems: There is no chest pain. Has shortness of breath on exertion. No nausea, vomiting, diarrhea. No abd ominal pain. No dysuria, polyuria, or urinary urgency. No skin rash. All other systems reviewed an d they were negative. Physical Examination: Vital Signs: Reviewed. Head and Neck: Pupils are equal, reactive to light. Intact eye movements. No JVD. No cervical lym phadenopathy. Neck is supple. Thyroid is not enlarged. Lungs: Clear to auscultation bilaterally. No rhonchi, wheezing, or crackles. No accessory muscle u se. Heart: Regular rate and rhythm. No extra sounds. Abdomen: Soft, nontender. Bowel sounds positive. No organomegaly. No masses or hernia. No rigidi ty or rebound. Extremities: No clubbing or cyanosis. Intact pulses. Skin: No rash. Neurologic: Alert, awake. No acute focal deficits appreciated. Investigations: BUN 41, creatinine 2.17. Troponin peaked at 120. Assessment And Recommendations: 1.Elevated troponin, known history of coronary artery disease; however, there are no active symptoms . This could be likely demand. He needs a stress test as an outpatient and an echo. Both can be ar ranged as an outpatient. 2.End-stage renal disease, currently on hemodialysis and clinically stable. 3.Pacemaker implantation recently. Pacemaker site appears to be clean. Continue to monitor. Cardiology will sign off on the case and I will see him on outpatient b asiedgard. /MODL Voice ID: [id number] Report ID: [id number]
[2022-12-19] MEDS: ROSUVASTATIN 10 MG TAB PO SCH (21:01)
--- NOTE | 2022-12-19 21:42 | P.PN ---
Date of Service: 12/19/22 Vital Signs Temp Pulse Resp BP Pulse Ox 98.6 F 60 21 H 108/61 96 12/19/22 19:08 12/19/22 21:02 12/19/22 19:08 12/19/22 21:02 12/19/22 19:08 Medications Hydrocodone Bitart/Acetaminophen (Hydrocodone/Apap 5/325 Mg Tab) 1 tab PO Q6H PRN PRN Reason: PAIN Albuterol Sulfate (Albuterol 2.5 Mg/3 Ml Neb Ledy) 2.5 mg NEB [id number] PRN PRN Reason: SHORTNESS OF BREATH Last Admin: 12/19/22 07:45 Dose: 2.5 mg Amiodarone HCl (Amiodarone Hcl 200 Mg Tab) 400 mg PO BID [facility] Last Admin: 12/19/22 21:02 Dose: 400 mg Apixaban (Apixaban 5 Mg Tablet) 5 mg PO BID [facility] Last Admin: 12/19/22 08:46 Dose: 5 mg Aspirin (Aspirin Ec 81 Mg Tab) 81 mg PO DAILY [facility] Last Admin: 12/19/22 08:46 Dose: 81 mg Benzonatate (Benzonatate 100 Mg Cap) 100 mg PO TID PRN PRN Reason: COUGH Last Admin: 12/13/22 21:34 Dose: 100 mg Buspirone HCl (Buspirone Hcl 5 Mg Tablet) 10 mg PO BID [facility] Last Admin: 12/19/22 21:02 Dose: 10 mg Docusate Sodium (Docusate Na 100 Mg Cap) 100 mg PO DAILY PRN PRN Reason: CONSTIPATION Last Admin: 12/18/22 09:29 Dose: 100 mg Heparin Sodium (Porcine) (Heparin 1,000 Unit/Ml Vial) 4,000 unit IV EVERY HD PRN PRN Reason: CVC patency Heparin Sodium (Porcine) (Heparin 1,000 Unit/Ml Vial) 2,000 unit IV EVERY HD PRN PRN Reason: Prevent Lines Clotting Last Admin: 12/17/22 11:57 Dose: 2,000 unit Ipratropium [place] (Ipratropium Brom 0.5mg/2.5ml) 0.5 mg NEB [id number] [facility] Last Admin: 12/19/22 20:00 Dose: 0.5 mg Metoprolol Tartrate (Metoprolol Tar 25 Mg Tab) 25 mg PO BID [facility] Last Admin: 12/19/22 21:02 Dose: 25 mg Ondansetron HCl (Ondansetron 4 Mg/2 Ml Vial) 4 mg IV Q6HP PRN PRN Reason: NAUSEA / VOMITING Last Admin: 12/15/22 11:03 Dose: 4 mg Rosuvastatin Calcium (Rosuvastatin 10 Mg Tab) 20 mg PO BEDTIME [facility] Last Admin: 12/19/22 21:01 Dose: 20 mg Sodium Chloride (Flush Normal Saline 10 Ml) 10 ml IV BID [facility] Last Admin: 12/19/22 21:03 Dose: 10 ml Torsemide (Torsemide 20 Mg Tab) 20 mg PO BIDL [facility] Last Admin: 12/19/22 16:38 Dose: 20 mg Microbiology Results 12/09/22 21:40 Blood - Blood Aerobic Blood Culture - Final No growth in 5 days. 12/09/22 21:40 Blood - Blood Anaerobic Blood Culture - Final No growth in 5 days. 12/09/22 21:20 Blood - Blood Aerobic Blood Culture - Final No growth in 5 days. 12/09/22 21:20 Blood - Blood Anaerobic Blood Culture - Final No growth in 5 days. Assessment/ Plan: Nephrology Mild dyspnea this morning No chest pain No acute events overnight Vitals, medications, blood work and imaging reviewed in the chart. NAD. NCAT. MMM. Normal Respiratory Effort. S1S2. ND Abd. No C/C/E. No rash. AAO. Normal speech. Stage II MEHREEN in the setting of CRS CKD IIIb -No NSAIDs -Continue Furosemide -HD TIW Hyponatremia -HD TIW Hypokalemia -Replete potassium HTN with CKD/ CHF -Continue Metoprolol Diastolic CHF, chronic -Low sodium diet -Daily weight -Continue Torsemide Anemia in chronic illness -Monitor H&H -Retacrit X1 CKD MBD -Continue Ergo Case reviewed with Dr. Alonzo All Active Problems Acute on chronic respiratory failure with hypoxia (Acute) Hematoma (Acute) Pleural effusion (Acute) Troponin level elevated (Acute) CAD (coronary artery disease) (Chronic) CHF (congestive heart failure) (Chronic) CKD (chronic kidney disease) stage 3, GFR 30-59 ml/min (Chronic) HTN (hypertension) (Chronic) Acute bronchitis with COPD (Acute) Acute exacerbation of CHF (congestive heart failure) (Acute 07/28/18) Acute on chronic diastolic (congestive) heart failure (Acute) Acute on chronic renal failure (Acute) Acute renal failure (Acute) Acute respiratory failure with hypercapnia (Acute) Acute respiratory failure with hypoxia (Acute) Atrial fibrillation (Acute) CHF (congestive heart failure) (Acute) COPD exacerbation (Acute) COPD exacerbation (Acute) COPD exacerbation (Acute) Chest pain (Acute) Chronic diastolic heart failure (Acute) Hypercapnic respiratory failure (Acute) Pneumonia (Acute) Respiratory distress (Acute) Respiratory failure with hypoxia and hypercapnia (Acute) Acute on chronic diastolic heart failure (Chronic) CKD (chronic kidney disease) stage 3, GFR 30-59 ml/min (Chronic) HTN (hypertension) (Chronic) Nicotine dependence (Chronic)
[2022-12-20] MEDS: IPRATROPIUM BROM 0.5MG/2.5ML NEB SCH ×4 (01:59→20:40)
[2022-12-20] MEDS: ASPIRIN EC 81 MG TAB PO SCH (08:25)
[2022-12-20] MEDS: TORSEMIDE 20 MG TAB PO SCH ×2 (08:25→16:19)
[2022-12-20] MEDS: BUSPIRONE HCL 5 MG TABLET PO SCH ×2 (08:25→20:52)
[2022-12-20] MEDS: DOCUSATE NA 100 MG CAP PO PRN (08:25)
[2022-12-20] MEDS: AMIODARONE HCL 200 MG TAB PO SCH ×2 (08:25→20:52)
[2022-12-20] MEDS: METOPROLOL TAR 25 MG TAB PO SCH ×2 (08:26→20:49)
[2022-12-20] MEDS: DULERA 200/5 (MOMETASONE/FORMOTEROL) INHALER IH SCH ×2 (08:26→20:53)
--- NOTE | 2022-12-20 11:47 | P.PN ---
Date of Service: 12/20/22 Subjective: Doing well with no new complaints. Patient clinical symptoms are stable. Patient is doing well with no new complaints. ROS: 10 point ROS as noted above, otherwise negative Physical Exam: Vitals: Reviewed GEN: Alert, oriented, NAD CV: Regular rate & rhythm, trace-1+ BLE, hematoma noted on left chest wall - improving; HD access catheter right SC; Left chest PPM Pulm: Nonlabored respiraitons on 2L NC, diminished at bases b/l; pleur-x tammy ter ABD: Soft, nontender, nondistended Neuro: No focal deficits Problem List: 1. Moderate-Large Left Pleural Effusion on Chronic Respiratory Failure due to COPD on Home Oxygen (2L) 2. Suspect Steroid-Induced Leukocytosis 3. MEHREEN on CKD III now on HD 4. Left Chest Wall Hematoma 5. Chronic Compensated Systolic Congestive Heart Failure 6. Suspect Type II NSTEMI (Demand Ischemia) secondary to above 7. Coronary Artery Disease 8. Hypertension 9. Dyslipidemia 10. Chronic Atrial Fibrillation s/p PPM 11. History of Ventricular Tachycardia s/p AICD 1. Continue with draining left pleural effusion with Pleurx catheter 2. Continue with hemodialysis per nephrology 3. Continue monitoring left chest wall hematoma and awaiting for reabsorption 4. Continue volume status closely 5. Continue with cardiac medications 6. Strict blood pressure control 7. Continue with nebs as needed 8. GI and DVT prophylaxis
[2022-12-20] MEDS: ALBUTEROL 2.5 MG/3 ML NEB SOL NEB PRN ×3 (14:00→20:40)
--- NOTE | 2022-12-20 18:07 | RAD REPORT ---
EXAM DESCRIPTION: Irais Single View12/20/2022 5:55 pm CLINICAL HISTORY: Chest pain COMPARISON: December 16, 2021 FINDINGS: Opacification left hemithorax No significant change in mild right lung opacities. Small right pleural effusion. Cardiomegaly. A asrah tral venous line in place Pacemaker leads in place IMPRESSION: Opacification left hemithorax probably due to large pleural effusion
[2022-12-20 18:14] LABS: Hematocrit 32.6 % (39.6-49.0); MCV 91.1 fL (80-100); MPV 8.7 fL (7.6-11.3); RBC Red Blood Cell Count 3.58 M/uL (4.33-5.43)
[2022-12-20] MEDS: ROSUVASTATIN 10 MG TAB PO SCH (20:52)
--- NOTE | 2022-12-20 22:21 | P.PN ---
Date of Service: 12/20/22 Vital Signs Temp Pulse Resp BP Pulse Ox 97.9 F 64 20 114/67 97 12/20/22 20:00 12/20/22 20:49 12/20/22 20:00 12/20/22 20:49 12/20/22 20:00 Medications Hydrocodone Bitart/Acetaminophen (Hydrocodone/Apap 5/325 Mg Tab) 1 tab PO Q6H PRN PRN Reason: PAIN Albuterol Sulfate (Albuterol 2.5 Mg/3 Ml Neb Ledy) 2.5 mg NEB [id number] PRN PRN Reason: SHORTNESS OF BREATH Last Admin: 12/20/22 18:16 Dose: 2.5 mg Amiodarone HCl (Amiodarone Hcl 200 Mg Tab) 400 mg PO BID [facility] Last Admin: 12/20/22 20:52 Dose: 400 mg Apixaban (Apixaban 5 Mg Tablet) 5 mg PO BID [facility] Last Admin: 12/19/22 21:00 Dose: Not Given Aspirin (Aspirin Ec 81 Mg Tab) 81 mg PO DAILY [facility] Last Admin: 12/20/22 08:25 Dose: 81 mg Benzonatate (Benzonatate 100 Mg Cap) 100 mg PO TID PRN PRN Reason: COUGH Last Admin: 12/13/22 21:34 Dose: 100 mg Buspirone HCl (Buspirone Hcl 5 Mg Tablet) 10 mg PO BID [facility] Last Admin: 12/20/22 20:52 Dose: 10 mg Docusate Sodium (Docusate Na 100 Mg Cap) 100 mg PO DAILY PRN PRN Reason: CONSTIPATION Last Admin: 12/20/22 08:25 Dose: 100 mg Heparin Sodium (Porcine) (Heparin 1,000 Unit/Ml Vial) 4,000 unit IV EVERY HD PRN PRN Reason: CVC patency Last Admin: 12/20/22 17:35 Dose: 4,000 unit Heparin Sodium (Porcine) (Heparin 1,000 Unit/Ml Vial) 2,000 unit IV EVERY HD PRN PRN Reason: Prevent Lines Clotting Last Admin: 12/20/22 16:15 Dose: 2,000 unit Ipratropium [place] (Ipratropium Brom 0.5mg/2.5ml) 0.5 mg NEB [id number] [facility] Last Admin: 12/20/22 13:59 Dose: 0.5 mg Metoprolol Tartrate (Metoprolol Tar 25 Mg Tab) 25 mg PO BID [facility] Last Admin: 12/20/22 20:49 Dose: 25 mg Ondansetron HCl (Ondansetron 4 Mg/2 Ml Vial) 4 mg IV Q6HP PRN PRN Reason: NAUSEA / VOMITING Last Admin: 12/15/22 11:03 Dose: 4 mg Rosuvastatin Calcium (Rosuvastatin 10 Mg Tab) 20 mg PO BEDTIME [facility] Last Admin: 12/20/22 20:52 Dose: 20 mg Sodium Chloride (Flush Normal Saline 10 Ml) 10 ml IV BID [facility] Last Admin: 12/20/22 20:53 Dose: 10 ml Torsemide (Torsemide 20 Mg Tab) 20 mg PO BIDL [facility] Last Admin: 12/20/22 16:19 Dose: Not Given Microbiology Results 12/09/22 21:40 Blood - Blood Aerobic Blood Culture - Final No growth in 5 days. 12/09/22 21:40 Blood - Blood Anaerobic Blood Culture - Final No growth in 5 days. 12/09/22 21:20 Blood - Blood Aerobic Blood Culture - Final No growth in 5 days. 12/09/22 21:20 Blood - Blood Anaerobic Blood Culture - Final No growth in 5 days. Assessment/ Plan: Nephrology Dyspnea and anxiety with dialysis. HD treatment stopped early. No chest pain No acute events overnight Vitals, medications, blood work and imaging reviewed in the chart. NAD. NCAT. MMM. Normal Respiratory Effort. S1S2. ND Abd. No C/C/E. No r micheal. AAO. Normal speech. Stage II MEHREEN in the setting of CRS CKD IIIb -No NSAIDs -Continue Furosemide -HD TIW Hyponatremia -HD TIW Hypokalemia -Replete potassium HTN with CKD/ CHF -Continue Metoprolol Diastolic CHF, chronic Left Pleural Effusion -Low sodium diet -Daily weight -Continue Torsemide Anemia in chronic illness -Monitor H&H -Retacrit X1 CKD MBD -Continue Ergo Case reviewed with Dr. Clements and Dr. Falcon All Active Problems Acute on chronic respiratory failure with hypoxia (Acute) Hematoma (Acute) Pleural effusion (Acute) Troponin level elevated (Acute) CAD (coronary artery disease) (Chronic) CHF (congestive heart failure) (Chronic) CKD (chronic kidney disease) stage 3, GFR 30-59 ml/min (Chronic) HTN (hypertension) (Chronic) Acute bronchitis with COPD (Acute) Acute exacerbation of CHF (congestive heart failure) (Acute 07/28/18) Acute on chronic diastolic (congestive) heart failure (Acute) Acute on chronic renal failure (Acute) Acute renal failure (Acute) Acute respiratory failure with hypercapnia (Acute) Acute respiratory failure with hypoxia (Acute) Atrial fibrillation (Acute) CHF (congestive heart failure) (Acute) COPD exacerbation (Acute) COPD exacerbation (Acute) COPD exacerbation (Acute) Chest pain (Acute) Chronic diastolic heart failure (Acute) Hypercapnic respiratory failure (Acute) Pneumonia (Acute) Respiratory distress (Acute) Respiratory failure with hypoxia and hypercapnia (Acute) Acute on chronic diastolic heart failure (Chronic) CKD (chronic kidney disease) stage 3, GFR 30-59 ml/min (Chronic) HTN (hypertension) (Chronic) Nicotine dependence (Chronic)
--- NOTE | 2022-12-20 22:34 | RAD REPORT ---
EXAM DESCRIPTION: CT - Thorax Wo Con - 12/20/2022 10:24 pm CLINICAL HISTORY: Hypoxia COMPARISON: December 09, 2022 TECHNIQUE: Computed axial tomography of the chest was obtained. Contrast was not requested. All CT scans are performed using dose optimization technique as appropriate and may include automated exposure control or mA/KV adjustment according to patient size. FINDINGS: The evaluation of mediastinum, jada and vessels is limited secondary to lack of IV contras t administration. A large left pleural effusion with left basilar atelectasis. A minimal right pleural effusion. Mild atelectasis right lung. Cardiomegaly. Coronary arterial calcifications. No mediastinal or hilar lymphadenopathy Cholelithiasis IMPRESSION: Large left pleural effusion
[2022-12-21] MEDS: IPRATROPIUM BROM 0.5MG/2.5ML NEB SCH ×4 (01:40→20:50)
[2022-12-21 03:44] LABS: Absolute Lymphocytes (CBC) 0.4 K/uL (0.7-4.9); Hematocrit 26.7 % (39.6-49.0); Lymphocytes % 4.6 % (15.3-44.8); MCV 89.4 fL (80-100); MPV 8.6 fL (7.6-11.3); RBC Red Blood Cell Count 2.99 M/uL (4.33-5.43)
[2022-12-21 03:53] LABS: Potassium 3.3 mEq/L (3.5-5.1)
[2022-12-21 05:33] LABS: Blood Morphology Comment NOTED (NOT SEEN); Platelet Estimate ADEQ
[2022-12-21] MEDS ORDERED: POTASSIUM 25 MEQ EFFERV TAB PO ONE (09:00)
[2022-12-21] MEDS ORDERED: BUPIVACAINE 0.25% PF 30 ML VIAL ONE (10:18)
[2022-12-21] MEDS ORDERED: NA CHLORIDE 0.9% 500 ML ONE (11:01)
[2022-12-21] MEDS ORDERED: LIDOCAINE 2% MPF 5 ML VIAL ONE (11:12)
[2022-12-21] MEDS ORDERED: FENTANYL CITR 100 MCG/2 ML ONE (11:12)
[2022-12-21] MEDS ORDERED: MIDAZOLAM HCL 2 MG/2 ML INJ ONE (11:12)
[2022-12-21] MEDS ORDERED: propofoL 200 MG/20 ML VIAL IV ONE (11:12)
[2022-12-21] MEDS ORDERED: CEFAZOLIN SODIUM 1 GM/VIAL ONE (11:33)
--- NOTE | 2022-12-21 11:51 | P.PN ---
Subjective Date of Service: 12/21/22 Primary Care Provider: Tera Chief Complaint: Recurrent pleural effusion Patient developed some shortness of breath and hypotension during dialysis yesterday chest x-ray showed worsening reoccurrence of the left-sided pleural effusion complains of constipation little short of breath Review of Systems General: Weakness Respiratory: Shortness of Breath Gastrointestinal: Constipation Physical Examination - Vital Signs Temperature: 97.9 F Blood Pressure: 101/57 Pulse: 61 Respirations: 20 Pulse Ox (%): 97 - Physical Exam General: Alert, Oriented x3, Mild distress Respiratory: Diminished (Initial the left side) Cardiovascular: No edema, Regular rate/rhythm, Normal S1 S2 Gastrointestinal: Normal bowel sounds, Soft and benign Assessment And Plan - Current Problems (Diagnosis) (1) Hematoma Current Visit: Yes Status: Acute Plan: Hematoma is improving hemoglobin stable (2) CKD (chronic kidney disease) stage 3, GFR 30-59 ml/min Current Visit: Yes Status: Chronic Plan: Patient is now on dialysis s/p therapy therapeutic thoracentesis signs oxygenation stable charge planning Qualifiers: Chronic kidney disease stage 3 subtype: stage 3b (GFR 30-44) Qualified Code(s): N18.32 - Chronic kidney disease, stage 3b (3) Pleural effusion Current Visit: Yes Status: Acute Plan: Patient has recurrent pleural effusion plan for a Pleurx catheter for now cussed with Dr. Lux Physician Review: Patient Assessed, Agree with Above Assessment and Plan
[2022-12-21] MEDS ORDERED: EPHEDRINE SULF 50 MG/ML VIAL ONE (12:04)
--- NOTE | 2022-12-21 12:07 | P.OP ---
Preoperative diagnosis: Large Recurrent LEFT pleural Effusion Postoperative diagnosis: Large Recurrent LEFT pleural Effusion Primary procedure: Placement of LEFT PleurX Thoracic Tunnelled Catheter Anesthesia: MAC + local Estimated blood loss: <2cc Specimen: straw colored fluid Findings: 1.1 Liters staw colored pleural fluid Complications: None Implants: PleurX Catheter Transferred to: Recovery Room Condition: Good
--- NOTE | 2022-12-21 12:36 | RAD REPORT ---
EXAM DESCRIPTION: RADChest Single View12/21/2022 12:30 pm CLINICAL HISTORY: Status Post Thorocentesis COMPARISON: Chest Single View dated 12/20/2022; Chest Single View dated 12/16/2022; Chest Single View dated 12/15/2022; Chest Single View dated 12/14/2022 TECHNIQUE: Portable AP view of the chest. FINDINGS: Interval placement of a left small bore pleural drainage catheter. Improving aeration thro ughout the left lung. Mild residual patchy left suprahilar and basilar airspace opacities. Stable pat arsenio opacities on the right most notably at the midline, with a layering small to moderate effusion. N o pneumothorax. Left chest wall pacer and right IJ dialysis catheter are stable in position. . The ca rdiomediastinal contours are unremarkable. IMPRESSION: Interval placement of left small bore pleural drainage catheter. Improving aeration and decreased effusion on the left. Other stable findings as above.
[2022-12-21 13:11] LABS: Body Fluid WBC 129 /mm^3
[2022-12-21] MEDS: ASPIRIN EC 81 MG TAB PO SCH (13:15)
[2022-12-21] MEDS: TORSEMIDE 20 MG TAB PO SCH ×2 (13:15→16:10)
[2022-12-21] MEDS: BUSPIRONE HCL 5 MG TABLET PO SCH ×2 (13:16→20:26)
[2022-12-21] MEDS: AMIODARONE HCL 200 MG TAB PO SCH ×2 (13:16→20:27)
[2022-12-21] MEDS: DULERA 200/5 (MOMETASONE/FORMOTEROL) INHALER IH SCH ×2 (13:16→20:27)
[2022-12-21] MEDS: METOPROLOL TAR 25 MG TAB PO SCH ×2 (13:16→20:26)
[2022-12-21 14:33] LABS: Appearance CLEAR (CLEAR); Body Fluid Source PLEURAL; Color of fluid Yellow (COLORLESS)
[2022-12-21] MEDS: ACETAMINOPHEN 500 MG TAB PO PRN (16:26)
--- NOTE | 2022-12-21 17:34 | OP ---
Date of Procedure: 12/21/2022 Surgeon: Idris Falcon MD, Preoperative Diagnosis: Large recurrent left pleural effusion. Postoperative Diagnosis: Large recurrent left pleural effusion. Procedure Performed: Placement of left PleurX thoracic tunneled catheter. Anesthesia: MAC plus local with 0.25% Marcaine. Estimated Blood Loss: Less than 10 cc. Specimen: Straw-colored fluid. Findings: Approximately 1.1 L of straw-colored pleural fluid returned. Complications: None. Implants: PleurX catheter. Disposition: Patient was transferred to recovery room in good condition. Procedure In Detail: After informed consent was obtained, patient was brought to the operating room, prepped and draped in the usual sterile fashion. After adequate anesthesia was achieved, I palpated an area of the left mid to anterior axillary line along the rib spaces. I found appropriate space a t the 5th to 6th intercostal space. I injected the area with 0.25% Marcaine and using a finder needl e, I prepared to cannulate the area. A small dillan incision was made at the left blade overlying the rib. I then placed the catheter with introducer sheath over the rib into the left thoracic space. S traw-colored fluid was immediately returned. I advanced the catheter and removed the needle. I then advanced a wire to the space and removed the sheath. At this point, leaving the wire in place, I an esthetize the tunnel track inferior anterior from the previous insertion site approximately 3-4 rib s paces away. At this point, I tunneled the catheter up through the insertion site and performed seque ntial dilatation using Seldinger technique. I then removed the wire and introducer sheath was placed at this point. I then advanced the catheter quite easily into the pleural space. I then cleansed t he skin area and closed the introduction site with a single interrupted 2-0 silk suture and attached the PleurX catheter system to a negative pressure bottle. Approximately 1.1 L of straw-colored fluid immediately returned that will be sent for analysis and then a sterile dressing was placed over top. Patient tolerated the procedure well without evidence of complication and transferred to PACU in go od condition all counts were correct at the end of the case. TK/MODL Voice ID: [id number] Report ID: [id number]
[2022-12-21] MEDS: LACTULOSE 20 GM/30 ML UCUP PO PRN (20:24)
[2022-12-21] MEDS: ROSUVASTATIN 10 MG TAB PO SCH (20:25)
--- NOTE | 2022-12-21 20:38 | P.PN ---
Date of Service: 12/21/22 Vital Signs Temp Pulse Resp BP Pulse Ox 97.5 F 59 14 104/60 99 12/21/22 16:00 12/21/22 20:26 12/21/22 16:00 12/21/22 20:26 12/21/22 16:00 Medications Acetaminophen (Acetaminophen 500 Mg Tab) 500 mg PO Q6H PRN PRN Reason: Pain scale 2-4 (Mild) Last Admin: 12/21/22 16:26 Dose: 500 mg Hydrocodone Bitart/Acetaminophen (Hydrocodone/Apap 5/325 Mg Tab) 1 tab PO Q6H PRN PRN Reason: PAIN Albuterol Sulfate (Albuterol 2.5 Mg/3 Ml Neb Ledy) 2.5 mg NEB [id number] PRN PRN Reason: SHORTNESS OF BREATH Last Admin: 12/20/22 20:40 Dose: 2.5 mg Amiodarone HCl (Amiodarone Hcl 200 Mg Tab) 400 mg PO BID [facility] Last Admin: 12/21/22 20:27 Dose: 400 mg Aspirin (Aspirin Ec 81 Mg Tab) 81 mg PO DAILY [facility] Last Admin: 12/21/22 13:15 Dose: 81 mg Benzonatate (Benzonatate 100 Mg Cap) 100 mg PO TID PRN PRN Reason: COUGH Last Admin: 12/13/22 21:34 Dose: 100 mg Buspirone HCl (Buspirone Hcl 5 Mg Tablet) 10 mg PO BID [facility] Last Admin: 12/21/22 20:26 Dose: 10 mg Docusate Sodium (Docusate Na 100 Mg Cap) 100 mg PO DAILY PRN PRN Reason: CONSTIPATION Last Admin: 12/20/22 08:25 Dose: 100 mg Heparin Sodium (Porcine) (Heparin 1,000 Unit/Ml Vial) 4,000 unit IV EVERY HD PRN PRN Reason: CVC patency Last Admin: 12/20/22 17:35 Dose: 4,000 unit Heparin Sodium (Porcine) (Heparin 1,000 Unit/Ml Vial) 2,000 unit IV EVERY HD PRN PRN Reason: Prevent Lines Clotting Last Admin: 12/20/22 16:15 Dose: 2,000 unit Ipratropium [place] (Ipratropium Brom 0.5mg/2.5ml) 0.5 mg NEB [id number] [facility] Last Admin: 12/21/22 14:45 Dose: 0.5 mg Lactulose (Lactulose 20 Gm/30 Ml Ucup) 10 gm PO BID PRN PRN Reason: CONSTIPATION Last Admin: 12/21/22 20:24 Dose: 10 gm Metoprolol Tartrate (Metoprolol Tar 25 Mg Tab) 25 mg PO BID [facility] Last Admin: 12/21/22 20:26 Dose: 25 mg Ondansetron HCl (Ondansetron 4 Mg/2 Ml Vial) 4 mg IV Q6HP PRN PRN Reason: NAUSEA / VOMITING Last Admin: 12/15/22 11:03 Dose: 4 mg Rosuvastatin Calcium (Rosuvastatin 10 Mg Tab) 20 mg PO BEDTIME [facility] Last Admin: 12/21/22 20:25 Dose: 20 mg Sodium Chloride (Flush Normal Saline 10 Ml) 10 ml IV BID [facility] Last Admin: 12/21/22 20:27 Dose: 10 ml Torsemide (Torsemide 20 Mg Tab) 20 mg PO BIDL [facility] Last Admin: 12/21/22 16:10 Dose: Not Given Microbiology Results 12/09/22 21:40 Blood - Blood Aerobic Blood Culture - Final No growth in 5 days. 12/09/22 21:40 Blood - Blood Anaerobic Blood Culture - Final No growth in 5 days. 12/09/22 21:20 Blood - Blood Aerobic Blood Culture - Final No growth in 5 days. 12/09/22 21:20 Blood - Blood Anaerobic Blood Culture - Final No growth in 5 days. Assessment/ Plan: Nephrology DA SILVA No chest pain No acute events overnight Vitals, medications, blood work and imaging reviewed in the chart. NAD. NCAT. MMM. Normal Respiratory Effort. S1S2. ND Abd. No C/C/E. No rash. AAO. Normal speech. Stage II MEHREEN in the setting of CRS now on dialysis CKD IIIb -No NSAIDs -HD TIW Hyponatremia -HD TIW Hypokalemia -Replete potassium prn HTN with CKD/ CHF -Continue Metoprolol Diastolic CHF, chronic Left Pleural Effusion -Low sodium diet -Daily weight -Continue Torsemide -Surgery to place PleurX today Anemia in chronic illness -Monitor H&H -Retacrit PRN CKD MBD -Continue Ergo Case reviewed with Dr. Falcon All Active Problems Acute on chronic respiratory failure with hypoxia (Acute) Hematoma (Acute) Pleural effusion (Acute) Troponin level elevated (Acute) CAD (coronary artery disease) (Chronic) CHF (congestive heart failure) (Chronic) CKD (chronic kidney disease) stage 3, GFR 30-59 ml/min (Chronic) HTN (hypertension) (Chronic) Acute bronchitis with COPD (Acute) Acute exacerbation of CHF (congestive heart failure) (Acute 07/28/18) Acute on chronic diastolic (congestive) heart failure (Acute) Acute on chronic renal failure (Acute) Acute renal failure (Acute) Acute respiratory failure with hypercapnia (Acute) Acute respiratory failure with hypoxia (Acute) Atrial fibrillation (Acute) CHF (congestive heart failure) (Acute) COPD exacerbation (Acute) COPD exacerbation (Acute) COPD exacerbation (Acute) Chest pain (Acute) Chronic diastolic heart failure (Acute) Hypercapnic respiratory failure (Acute) Pneumonia (Acute) Respiratory distress (Acute) Respiratory failure with hypoxia and hypercapnia (Acute) Acute on chronic diastolic heart failure (Chronic) CKD (chronic kidney disease) stage 3, GFR 30-59 ml/min (Chronic) HTN (hypertension) (Chronic) Nicotine dependence (Chronic)
[2022-12-21] MEDS: ALBUTEROL 2.5 MG/3 ML NEB SOL NEB PRN (20:50)
[2022-12-21] MEDS: HYDROCODONE/APAP 5/325 MG TAB PO PRN (22:40)
[2022-12-22] MEDS: IPRATROPIUM BROM 0.5MG/2.5ML NEB SCH ×4 (02:00→20:55)
--- NOTE | 2022-12-22 07:39 | RAD REPORT ---
EXAM DESCRIPTION: Diazt Single View12/22/2022 5:04 am CLINICAL HISTORY: Left pleural effusion COMPARISON: December 21, 2022 FINDINGS: Left pleural catheter in place without pneumothorax. Overall no significant change in the small left pleural effusion Small right pleural effusion Mild bilateral pulmonary opacities. Cardiomegaly. Central venous line in place. Pacemaker leads noted IMPRESSION: Left pleural catheter in place without pneumothorax
[2022-12-22 07:47] LABS: Potassium 3.4 mEq/L (3.5-5.1)
[2022-12-22] MEDS ORDERED: ALBUMIN HUMAN 25% 100 ML IV ONE (09:22)
[2022-12-22] MEDS: BUSPIRONE HCL 5 MG TABLET PO SCH ×2 (09:33→20:40)
[2022-12-22] MEDS: DULERA 200/5 (MOMETASONE/FORMOTEROL) INHALER IH SCH ×2 (09:33→20:43)
[2022-12-22] MEDS: AMIODARONE HCL 200 MG TAB PO SCH ×2 (09:33→20:40)
[2022-12-22] MEDS: METOPROLOL TAR 25 MG TAB PO SCH ×2 (09:33→20:40)
[2022-12-22] MEDS: ASPIRIN EC 81 MG TAB PO SCH (09:33)
[2022-12-22] MEDS: TORSEMIDE 20 MG TAB PO SCH ×2 (09:33→20:40)
[2022-12-22] MEDS: APIXABAN 5 MG TABLET PO SCH ×2 (09:38→20:42)
--- NOTE | 2022-12-22 11:57 | P.PN ---
Subjective Date of Service: 12/22/22 Primary Care Provider: Tera Chief Complaint: This post Pleurx catheter He is doing better he is a week's of breath is also improved he is getting dialysis Review of Systems General: Weakness Respiratory: Shortness of Breath Physical Examination - Vital Signs Temperature: 97.5 F Blood Pressure: 113/58 Pulse: 60 Respirations: 16 Pulse Ox (%): 97 - Physical Exam General: Alert, In no apparent distress, Oriented x3 Respiratory: Clear to auscultation bilaterally Cardiovascular: No edema, Regular rate/rhythm, Normal S1 S2 Gastrointestinal: Normal bowel sounds, Soft and benign Assessment And Plan - Current Problems (Diagnosis) (1) Hematoma Current Visit: Yes Status: Acute Plan: Resolving hemoglobin stable (2) CKD (chronic kidney disease) stage 3, GFR 30-59 ml/min Current Visit: Yes Status: Chronic Plan: Patient is now on dialysis s/p therapy therapeutic thoracentesis signs ox ygenation stable charge planning/charge planning physical therapy ambulate Qualifiers: Chronic kidney disease stage 3 subtype: stage 3b (GFR 30-44) Qualified Code(s): N18.32 - Chronic kidney disease, stage 3b (3) Pleural effusion Current Visit: Yes Status: Acute Plan: S/p Pleurx catheter about 1-1/2 L was drained yesterday chest x-ray looks much better no evidence of infection in the pleural fluid no malignant cells identified Physician Review: Patient Assessed, Agree with Above Assessment and Plan
[2022-12-22] MEDS ORDERED: POTASSIUM CL SA 10 MEQ TAB PO ONE (13:00)
[2022-12-22] MEDS: ONDANSETRON 4 MG/2 ML VIAL IV PRN (20:34)
[2022-12-22] MEDS: ROSUVASTATIN 10 MG TAB PO SCH (20:40)
[2022-12-22] MEDS: ALBUTEROL 2.5 MG/3 ML NEB SOL NEB PRN (20:55)
--- NOTE | 2022-12-22 21:23 | P.PN ---
Date of Service: 12/22/22 Vital Signs Temp Pulse Resp BP Pulse Ox 97.9 F 60 16 104/59 L 98 12/22/22 16:00 12/22/22 16:00 12/22/22 16:00 12/22/22 16:00 12/22/22 16:00 Medications Acetaminophen (Acetaminophen 500 Mg Tab) 500 mg PO Q6H PRN PRN Reason: Pain scale 2-4 (Mild) Last Admin: 12/21/22 16:26 Dose: 500 mg Hydrocodone Bitart/Acetaminophen (Hydrocodone/Apap 5/325 Mg Tab) 1 tab PO Q6H PRN PRN Reason: Pain scale 5-7 (Moderate) Last Admin: 12/21/22 22:40 Dose: 1 tab Albuterol Sulfate (Albuterol 2.5 Mg/3 Ml Neb Ledy) 2.5 mg NEB [id number] PRN PRN Reason: SHORTNESS OF BREATH Last Admin: 12/21/22 20:50 Dose: 2.5 mg Amiodarone HCl (Amiodarone Hcl 200 Mg Tab) 400 mg PO BID [facility] Last Admin: 12/22/22 20:40 Dose: 400 mg Apixaban (Apixaban 5 Mg Tablet) 5 mg PO BID [facility] Last Admin: 12/22/22 20:42 Dose: 5 mg Aspirin (Aspirin Ec 81 Mg Tab) 81 mg PO DAILY [facility] Last Admin: 12/22/22 09:33 Dose: 81 mg Benzonatate (Benzonatate 100 Mg Cap) 100 mg PO TID PRN PRN Reason: COUGH Last Admin: 12/13/22 21:34 Dose: 100 mg Buspirone HCl (Buspirone Hcl 5 Mg Tablet) 10 mg PO BID [facility] Last Admin: 12/22/22 20:40 Dose: 10 mg Docusate Sodium (Docusate Na 100 Mg Cap) 100 mg PO DAILY PRN PRN Reason: CONSTIPATION Last Admin: 12/20/22 08:25 Dose: 100 mg Heparin Sodium (Porcine) (Heparin 1,000 Unit/Ml Vial) 4,000 unit IV EVERY HD PRN PRN Reason: CVC patency Last Admin: 12/20/22 17:35 Dose: 4,000 unit Heparin Sodium (Porcine) (Heparin 1,000 Unit/Ml Vial) 2,000 unit IV EVERY HD PRN PRN Reason: Prevent Lines Clotting Last Admin: 12/22/22 16:27 Dose: 2,000 unit Ipratropium [place] (Ipratropium Brom 0.5mg/2.5ml) 0.5 mg NEB [id number] [facility] Last Admin: 12/22/22 14:00 Dose: Not Given Lactulose (Lactulose 20 Gm/30 Ml Ucup) 10 gm PO BID PRN PRN Reason: CONSTIPATION Last Admin: 12/21/22 20:24 Dose: 10 gm Metoprolol Tartrate (Metoprolol Tar 25 Mg Tab) 25 mg PO BID [facility] Last Admin: 12/22/22 20:40 Dose: 25 mg Ondansetron HCl (Ondansetron 4 Mg/2 Ml Vial) 4 mg IV Q6HP PRN PRN Reason: NAUSEA / VOMITING Last Admin: 12/22/22 20:34 Dose: 4 mg Rosuvastatin Calcium (Rosuvastatin 10 Mg Tab) 20 mg PO BEDTIME [facility] Last Admin: 12/22/22 20:40 Dose: 20 mg Sodium Chloride (Flush Normal Saline 10 Ml) 10 ml IV BID [facility] Last Admin: 12/22/22 20:42 Dose: 10 ml Torsemide (Torsemide 20 Mg Tab) 20 mg PO BIDL [facility] Last Admin: 12/22/22 20:40 Dose: 20 mg Microbiology Results 12/09/22 21:40 Blood - Blood Aerobic Blood Culture - Final No growth in 5 days. 12/09/22 21:40 Blood - Blood Anaerobic Blood Culture - Final No growth in 5 days. 12/09/22 21:20 Blood - Blood Aerobic Blood Culture - Final No growth in 5 days. 12/09/22 21:20 Blood - Blood Anaerobic Blood Culture - Final No growth in 5 days. Assessment/ Plan: Nephrology No dyspnea No chest pain Feeling better No acute events overnight Vitals, medications, blood work and imaging reviewed in the chart. NAD. NCAT. MMM. Normal Respiratory Effort. S1S2. ND Abd. No C/C/E. No rash. AAO. Normal speech. Stage II MEHREEN in the setting of CRS now on dialysis CKD IIIb -No NSAIDs -HD TIW -Seen and examined on HD Hyponatremia -HD TIW Hypokalemia -Replete potassium prn HTN with CKD/ CHF -Continue Metoprolol Diastolic CHF, chronic Left Pleural Effusion -Low sodium diet -Daily weight -Continue Torsemide -Surgery to place PleurX today Anemia in chronic illness -Monitor H&H -Retacrit PRN CKD MBD -Continue Ergo All Active Problems Acute on chronic respiratory failure with hypoxia (Acute) Hematoma (Acute) Pleural effusion (Acute) Troponin level elevated (Acute) CAD (coronary artery disease) (Chronic) CHF (congestive heart failure) (Chronic) CKD (chronic kidney disease) stage 3, GFR 30-59 ml/min (Chronic) HTN (hypertension) (Chronic) Acute bronchitis with COPD (Acute) Acute exacerbation of CHF (congestive heart failure) (Acute 07/28/18) Acute on chronic diastolic (congestive) heart failure (Acute) Acute on chronic renal failure (Acute) Acute renal failure (Acute) Acute respiratory failure with hypercapnia (Acute) Acute respiratory failure with hypoxia (Acute) Atrial fibrillation (Acute) CHF (congestive heart failure) (Acute) COPD exacerbation (Acute) COPD exacerbation (Acute) COPD exacerbation (Acute) Chest pain (Acute) Chronic diastolic heart failure (Acute) Hypercapnic respiratory failure (Acute) Pneumonia (Acute) Respiratory distress (Acute) Respiratory failure with hypoxia and hypercapnia (Acute) Acute on chronic diastolic heart failure (Chronic) CKD (chronic kidney disease) stage 3, GFR 30-59 ml/min (Chronic) HTN (hypertension) (Chronic) Nicotine dependence (Chronic)
[2022-12-23] MEDS: IPRATROPIUM BROM 0.5MG/2.5ML NEB SCH ×4 (02:00→20:05)
[2022-12-23 04:22] LABS: Potassium 4.1 mEq/L (3.5-5.1)
[2022-12-23] MEDS ORDERED: ALBUTEROL 2.5 MG/3 ML NEB SOL NEB PRN (07:07)
--- NOTE | 2022-12-23 07:49 | RAD REPORT ---
EXAM DESCRIPTION: RAD - Chest Single View - 12/23/2022 4:56 am CLINICAL HISTORY: Left-sided pleural effusion Chest pain. COMPARISON: Chest Single View dated 12/22/2022; Chest Single View dated 12/21/2022; Chest Single View dated 12/20/2022; Chest Single View dated 12/16/2022 FINDINGS: Portable technique limits examination quality. Moderate bilateral pulmonary opacities are again noted unchanged. Left-sided small bore PleurX cathet er is in place. Small right and small moderate left pleural effusion is present. Right-sided venous c atheter is unchanged with tip in the SVC. Multi lead pacer device present. The heart is moderately en larged.
[2022-12-23] MEDS: BUSPIRONE HCL 5 MG TABLET PO SCH ×2 (09:16→20:37)
[2022-12-23] MEDS: TORSEMIDE 20 MG TAB PO SCH ×2 (09:17→16:18)
[2022-12-23] MEDS: DULERA 200/5 (MOMETASONE/FORMOTEROL) INHALER IH SCH ×2 (09:17→20:38)
[2022-12-23] MEDS: ASPIRIN EC 81 MG TAB PO SCH (09:17)
[2022-12-23] MEDS: APIXABAN 5 MG TABLET PO SCH ×2 (09:17→20:38)
[2022-12-23] MEDS: METOPROLOL TAR 25 MG TAB PO SCH ×2 (09:17→20:38)
[2022-12-23] MEDS: AMIODARONE HCL 200 MG TAB PO SCH ×2 (09:17→20:38)
--- NOTE | 2022-12-23 12:21 | P.PN ---
Subjective Date of Service: 12/23/22 Primary Care Provider: Tera Chief Complaint: This post Pleurx catheter He is doing much better feeling a little weak no other complaint Review of Systems General: Weakness Respiratory: Shortness of Breath Physical Examination - Vital Signs Temperature: 97.8 F Blood Pressure: 106/72 Pulse: 60 Respirations: 24 Pulse Ox (%): 99 - Physical Exam General: Alert, In no apparent distress, Oriented x3 Respiratory: Clear to auscultation bilaterally, Diminished Cardiovascular: No edema, Regular rate/rhythm, Normal S1 S2 Assessment And Plan - Current Problems (Diagnosis) (1) CKD (chronic kidney disease) stage 3, GFR 30-59 ml/min Current Visit: Yes Status: Chronic Plan: Patient is now on dialysis s/p therapy therapeutic thoracentesis signs oxygenation stable charge planning/charge planning physical therapy ambulate plan [facility] patient's family members do not want the patient to go to [place] Qualifiers: Chronic kidney disease stage 3 subtype: stage 3b (GFR 30-44) Qualified Code(s): N18.32 - Chronic kidney disease, stage 3b (2) Pleural effusion Current Visit: Yes Status: Acute Plan: It appears that patient has recurrent pleural effusion on the chest x-ray we will plan to drain again and then to drain at home about twice a week and will be to discharge and has physical therapy Physician Review: Patient Assessed, Agree with Above Assessment and Plan
[2022-12-23] MEDS: HYDROCODONE/APAP 5/325 MG TAB PO PRN (16:18)
[2022-12-23 19:53] LABS: CHOLESTEROL, PLEURAL FLUID 15 mg/dL; LD, PLEURAL FLUID 95 U/L; TOTAL PROTEIN, PLEURAL FLUID <3.0 g/dL
[2022-12-23] MEDS: ROSUVASTATIN 10 MG TAB PO SCH (20:38)
--- NOTE | 2022-12-23 21:29 | P.PN ---
Date of Service: 12/23/22 Vital Signs Temp Pulse Resp BP Pulse Ox 98.8 F 60 18 104/57 L 98 12/23/22 20:00 12/23/22 20:38 12/23/22 20:00 12/23/22 20:38 12/23/22 20:00 Medications Acetaminophen (Acetaminophen 500 Mg Tab) 500 mg PO Q6H PRN PRN Reason: Pain scale 2-4 (Mild) Last Admin: 12/21/22 16:26 Dose: 500 mg Hydrocodone Bitart/Acetaminophen (Hydrocodone/Apap 5/325 Mg Tab) 1 tab PO Q6H PRN PRN Reason: Pain scale 5-7 (Moderate) Last Admin: 12/23/22 16:18 Dose: 1 tab Albuterol Sulfate (Albuterol 2.5 Mg/3 Ml Neb Ledy) 2.5 mg NEB [id number] PRN PRN Reason: SHORTNESS OF BREATH Amiodarone HCl (Amiodarone Hcl 200 Mg Tab) 400 mg PO BID [facility] Last Admin: 12/23/22 20:38 Dose: 400 mg Apixaban (Apixaban 5 Mg Tablet) 5 mg PO BID [facility] Last Admin: 12/23/22 20:38 Dose: 5 mg Aspirin (Aspirin Ec 81 Mg Tab) 81 mg PO DAILY [facility] Last Admin: 12/23/22 09:17 Dose: 81 mg Benzonatate (Benzonatate 100 Mg Cap) 100 mg PO TID PRN PRN Reason: COUGH Last Admin: 12/13/22 21:34 Dose: 100 mg Buspirone HCl (Buspirone Hcl 5 Mg Tablet) 10 mg PO BID [facility] Last Admin: 12/23/22 20:37 Dose: 10 mg Docusate Sodium (Docusate Na 100 Mg Cap) 100 mg PO DAILY PRN PRN Reason: CONSTIPATION Last Admin: 12/20/22 08:25 Dose: 100 mg Heparin Sodium (Porcine) (Heparin 1,000 Unit/Ml Vial) 4,000 unit IV EVERY HD PRN PRN Reason: CVC patency Last Admin: 12/20/22 17:35 Dose: 4,000 unit Heparin Sodium (Porcine) (Heparin 1,000 Unit/Ml Vial) 2,000 unit IV EVERY HD PRN PRN Reason: Prevent Lines Clotting Last Admin: 12/22/22 16:27 Dose: 2,000 unit Ipratropium [place] (Ipratropium Brom 0.5mg/2.5ml) 0.5 mg NEB [id number] [facility] Last Admin: 12/23/22 14:34 Dose: 0.5 mg Lactulose (Lactulose 20 Gm/30 Ml Ucup) 10 gm PO BID PRN PRN Reason: CONSTIPATION Last Admin: 12/21/22 20:24 Dose: 10 gm Metoprolol Tartrate (Metoprolol Tar 25 Mg Tab) 25 mg PO BID [facility] Last Admin: 12/23/22 20:38 Dose: 25 mg Ondansetron HCl (Ondansetron 4 Mg/2 Ml Vial) 4 mg IV Q6HP PRN PRN Reason: NAUSEA / VOMITING Last Admin: 12/22/22 20:34 Dose: 4 mg Rosuvastatin Calcium (Rosuvastatin 10 Mg Tab) 20 mg PO BEDTIME [facility] Last Admin: 12/23/22 20:38 Dose: 20 mg Sodium Chloride (Flush Normal Saline 10 Ml) 10 ml IV BID [facility] Last Admin: 12/23/22 20:38 Dose: 10 ml Torsemide (Torsemide 20 Mg Tab) 20 mg PO BIDL [facility] Last Admin: 12/23/22 16:18 Dose: 20 mg Microbiology Results 12/09/22 21:40 Blood - Blood Aerobic Blood Culture - Final No growth in 5 days. 12/09/22 21:40 Blood - Blood Anaerobic Blood Culture - Final No growth in 5 days. 12/09/22 21:20 Blood - Blood Aerobic Blood Culture - Final No growth in 5 days. 12/09/22 21:20 Blood - Blood Anaerobic Blood Culture - Final No growth in 5 days. Assessment/ Plan: Nephrology No dyspnea No chest pain Feeling better No acute events overnight Vitals, medications, blood work and imaging reviewed in the chart. NAD. NCAT. MMM. Normal Respiratory Effort. S1S2. ND Abd. No C/C/E. No rash. AAO. Normal speech. RIJ CVC Stage II MEHREEN in the setting of CRS now on dialysis CKD IIIb -No NSAIDs -HD TIW Hyponatremia -HD TIW Hypokalemia -Replete potassium prn HTN with CKD/ CHF -Continue Metoprolol Diastolic CHF, chronic Left Pleural Effusion, recurrent -Low sodium diet -Daily weight -Continue Torsemide -PleurX status Anemia in chronic illness -Monitor H&H -Retacrit PRN CKD MBD -Continue Ergo All Active Problems Acute on chronic respiratory failure with hypoxia (Acute) Hematoma (Acute) Pleural effusion (Acute) Troponin level elevated (Acute) CAD (coronary artery disease) (Chronic) CHF (congestive heart failure) (Chronic) CKD (chronic kidney disease) stage 3, GFR 30-59 ml/min (Chronic) HTN (hypertension) (Chronic) Acute bronchitis with COPD (Acute) Acute exacerbation of CHF (congestive heart failure) (Acute 07/28/18) Acute on chronic diastolic (congestive) heart failure (Acute) Acute on chronic renal failure (Acute) Acute renal failure (Acute) Acute respiratory failure with hypercapnia (Acute) Acute respiratory failure with hypoxia (Acute) Atrial fibrillation (Acute) CHF (congestive heart failure) (Acute) COPD exacerbation (Acute) COPD exacerbation (Acute) COPD exacerbation (Acute) Chest pain (Acute) Chronic diastolic heart failure (Acute) Hypercapnic respiratory failure (Acute) Pneumonia (Acute) Respiratory distress (Acute) Respiratory failure with hypoxia and hypercapnia (Acute) Acute on chronic diastolic heart failure (Chronic) CKD (chronic kidney disease) stage 3, GFR 30-59 ml/min (Chronic) HTN (hypertension) (Chronic) Nicotine dependence (Chronic)
[2022-12-24] MEDS: IPRATROPIUM BROM 0.5MG/2.5ML NEB SCH ×4 (00:55→19:45)
--- NOTE | 2022-12-24 08:34 | RAD REPORT ---
[facility] CLINICAL HISTORY: Left-sided pleural effusion COMPARISON: Chest Single View dated 12/23/2022; Chest Single View dated 12/22/2022; Chest Single View dated 12/21/2022; Chest Single View dated 12/20/2022 TECHNIQUE: Portable AP view of the chest. FINDINGS: Stable bilateral patchy airspace opacities and small effusions, with partial improvement o f aeration and size of effusion on the left. No pneumothorax stable prominence of the cardiac silhou ette. Right IJ dialysis catheter unchanged in position. Left pleural drainage catheter is unchanged. . The mediastinal contours are unremarkable. IMPRESSION: Partial improvement of aeration at the left base, with improvement of the size of left e ffusion. Other stable findings as above.
[2022-12-24] MEDS: METOPROLOL TAR 25 MG TAB PO SCH ×3 (09:00→20:38)
[2022-12-24] MEDS: ASPIRIN EC 81 MG TAB PO SCH (09:30)
[2022-12-24] MEDS: BUSPIRONE HCL 5 MG TABLET PO SCH ×2 (09:30→20:37)
[2022-12-24] MEDS: AMIODARONE HCL 200 MG TAB PO SCH ×2 (09:31→20:37)
[2022-12-24] MEDS: APIXABAN 5 MG TABLET PO SCH ×2 (09:31→20:38)
[2022-12-24] MEDS: TORSEMIDE 20 MG TAB PO SCH ×2 (09:31→17:44)
[2022-12-24] MEDS: DULERA 200/5 (MOMETASONE/FORMOTEROL) INHALER IH SCH ×2 (09:32→20:38)
[2022-12-24] MEDS: MANNITOL 25% 12.5 GM/50 ML VIAL IV PRN (13:00)
[2022-12-24] MEDS: ACETAMINOPHEN 500 MG TAB PO PRN (13:34)
[2022-12-24] MEDS: ROSUVASTATIN 10 MG TAB PO SCH (20:38)
[2022-12-24] MEDS: DOCUSATE NA 100 MG CAP PO PRN (20:40)
--- NOTE | 2022-12-24 21:47 | P.PN ---
Date of Service: 12/24/22 Vital Signs Temp Pulse Resp BP Pulse Ox 96.4 F L 61 18 104/57 L 90 L 12/24/22 20:00 12/24/22 20:38 12/24/22 20:00 12/24/22 20:38 12/24/22 20:00 Medications Acetaminophen (Acetaminophen 500 Mg Tab) 500 mg PO Q6H PRN PRN Reason: Pain scale 2-4 (Mild) Last Admin: 12/24/22 13:34 Dose: 500 mg Albuterol Sulfate (Albuterol 2.5 Mg/3 Ml Neb Ledy) 2.5 mg NEB [id number] PRN PRN Reason: SHORTNESS OF BREATH Amiodarone HCl (Amiodarone Hcl 200 Mg Tab) 400 mg PO BID [facility] Last Admin: 12/24/22 20:37 Dose: 400 mg Apixaban (Apixaban 5 Mg Tablet) 5 mg PO BID [facility] Last Admin: 12/24/22 20:38 Dose: 5 mg Aspirin (Aspirin Ec 81 Mg Tab) 81 mg PO DAILY [facility] Last Admin: 12/24/22 09:30 Dose: 81 mg Benzonatate (Benzonatate 100 Mg Cap) 100 mg PO TID PRN PRN Reason: COUGH Last Admin: 12/13/22 21:34 Dose: 100 mg Buspirone HCl (Buspirone Hcl 5 Mg Tablet) 10 mg PO BID [facility] Last Admin: 12/24/22 20:37 Dose: 10 mg Docusate Sodium (Docusate Na 100 Mg Cap) 100 mg PO DAILY PRN PRN Reason: CONSTIPATION Last Admin: 12/24/22 20:40 Dose: 100 mg Heparin Sodium (Porcine) (Heparin 1,000 Unit/Ml Vial) 4,000 unit IV EVERY HD PRN PRN Reason: CVC patency Last Admin: 12/24/22 13:02 Dose: 4,000 unit Heparin Sodium (Porcine) (Heparin 1,000 Unit/Ml Vial) 2,000 unit IV EVERY HD PRN PRN Reason: Prevent Lines Clotting Last Admin: 12/24/22 09:57 Dose: 2,000 unit Ipratropium [place] (Ipratropium Brom 0.5mg/2.5ml) 0.5 mg NEB [id number] [facility] Last Admin: 12/24/22 13:00 Dose: Not Given Lactulose (Lactulose 20 Gm/30 Ml Ucup) 10 gm PO BID PRN PRN Reason: CONSTIPATION Last Admin: 12/21/22 20:24 Dose: 10 gm Mannitol (Mannitol 25% 12.5 Gm/50 Ml Vial) 25 gm IV EVERY HD PRN PRN Reason: Dialysis for BP Support Last Admin: 12/24/22 13:00 Dose: 25 gm Metoprolol Tartrate (Metoprolol Tar 25 Mg Tab) 25 mg PO BID [facility] Last Admin: 12/24/22 20:38 Dose: 25 mg Ondansetron HCl (Ondansetron 4 Mg/2 Ml Vial) 4 mg IV Q6HP PRN PRN Reason: NAUSEA / VOMITING Last Admin: 12/22/22 20:34 Dose: 4 mg Rosuvastatin Calcium (Rosuvastatin 10 Mg Tab) 20 mg PO BEDTIME [facility] Last Admin: 12/24/22 20:38 Dose: 20 mg Sodium Chloride (Flush Normal Saline 10 Ml) 10 ml IV BID [facility] Last Admin: 12/24/22 20:39 Dose: 10 ml Torsemide (Torsemide 20 Mg Tab) 20 mg PO BIDL [facility] Last Admin: 12/24/22 17:44 Dose: 20 mg Microbiology Results 12/09/22 21:40 Blood - Blood Aerobic Blood Culture - Final No growth in 5 days. 12/09/22 21:40 Blood - Blood Anaerobic Blood Culture - Final No growth in 5 days. 12/09/22 21:20 Blood - Blood Aerobic Blood Culture - Final No growth in 5 days. 12/09/22 21:20 Blood - Blood Anaerobic Blood Culture - Final No growth in 5 days. Assessment/ Plan: Nephrology No dyspnea No chest pain Feeling better No acute events overnight Vitals, medications, blood work and imaging reviewed in the chart. NAD. NCAT. MMM. Normal Respiratory Effort. S1S2. ND Abd. No C/C/E. No rash. AAO. Normal speech. RIJ CVC Stage II MEHREEN in the setting of CRS now on dialysis CKD IIIb -No NSAIDs -HD TIW; Seen and examined on HD Hyponatremia -HD TIW Hypokalemia -Replete potassium prn HTN with CKD/ CHF -Continue Metoprolol Diastolic CHF, chronic Left Pleural Effusion, recurrent -Low sodium diet -Daily weight -Continue Torsemide -PleurX status Anemia in chronic illness -Monitor H&H -Retacrit PRN CKD MBD -Continue Ergo All Active Problems Acute on chronic respiratory failure with hypoxia (Acute) Hematoma (Acute) Pleural effusion (Acute) Troponin level elevated (Acute) CAD (coronary artery disease) (Chronic) CHF (congestive heart failure) (Chronic) CKD (chronic kidney disease) stage 3, GFR 30-59 ml/min (Chronic) HTN (hypertension) (Chronic) Acute bronchitis with COPD (Acute) Acute exacerbation of CHF (congestive heart failure) (Acute 07/28/18) Acute on chronic diastolic (congestive) heart failure (Acute) Acute on chronic renal failure (Acute) Acute renal failure (Acute) Acute respiratory failure with hypercapnia (Acute) Acute respiratory failure with hypoxia (Acute) Atrial fibrillation (Acute) CHF (congestive heart failure) (Acute) COPD exacerbation (Acute) COPD exacerbation (Acute) COPD exacerbation (Acute) Chest pain (Acute) Chronic diastolic heart failure (Acute) Hypercapnic respiratory failure (Acute) Pneumonia (Acute) Respiratory distress (Acute) Respiratory failure with hypoxia and hypercapnia (Acute) Acute on chronic diastolic heart failure (Chronic) CKD (chronic kidney disease) stage 3, GFR 30-59 ml/min (Chronic) HTN (hypertension) (Chronic) Nicotine dependence (Chronic)
[2022-12-25] MEDS: IPRATROPIUM BROM 0.5MG/2.5ML NEB SCH ×4 (01:20→20:00)
[2022-12-25] MEDS: ASPIRIN EC 81 MG TAB PO SCH (08:43)
[2022-12-25] MEDS: AMIODARONE HCL 200 MG TAB PO SCH ×2 (08:43→20:16)
[2022-12-25] MEDS: BUSPIRONE HCL 5 MG TABLET PO SCH ×2 (08:43→20:16)
[2022-12-25] MEDS: APIXABAN 5 MG TABLET PO SCH ×2 (08:44→20:16)
[2022-12-25] MEDS: METOPROLOL TAR 25 MG TAB PO SCH ×2 (08:44→20:16)
[2022-12-25] MEDS: TORSEMIDE 20 MG TAB PO SCH ×2 (08:45→16:44)
[2022-12-25] MEDS: DULERA 200/5 (MOMETASONE/FORMOTEROL) INHALER IH SCH ×2 (08:46→20:17)
--- NOTE | 2022-12-25 12:08 | PN ---
Date of Progress Note: 12/25/2022 Subjective: Patient was seen and examined at bedside. He is doing okay. Denies any complaints. A right-sided tunneled dialysis catheter in place. He appears cachectic and malnourished. PleurX drai n in place. Extremities showed no evidence of edema. Laboratory Data: At this time are showing creatinine of 1.64, BUN of 26, and sodium of 134. CBC muna wing stable hemoglobin, hematocrit of 26.7, and platelet count of 133. Current Medications: Have been reviewed in detail. Impression: 1.Stage 3 chronic kidney disease progressing to dialysis secondary to cardiorenal syndrome, has been started on dialysis. Patient's last dialysis was yesterday. Volume status is improving. 2.Pleural effusion. Continue drainage with the PleurX catheter. 3.Hyponatremia, currently stable. 4.Hypokalemia. Monitor at this time. 5.Anemia secondary to chronic disease. Monitor hemoglobin and we will give Retacrit with dialysis. 6.Chronic diastolic heart failure with left-sided pleural effusion. Continue diuretics and ultrafil tration through dialysis and a low-sodium diet and monitor volume status closely. Plan: Patient is overall doing okay at this time. Continue to follow up closely. Tuesday, Tuesday , Tuesday dialysis and monitor volume status. VV/MODL Voice ID: [id number] Report ID: [id number]
[2022-12-25] MEDS: ONDANSETRON 4 MG/2 ML VIAL IV PRN (14:21)
--- NOTE | 2022-12-25 15:49 | P.PN ---
Date of Service: 12/24/22 Subjective: Patient continues to do well and patient denies any new complaints. Continue with current plan of care. ROS: 10 point ROS as noted above, otherwise negative Physical Exam: Vitals: Reviewed GEN: Alert, oriented, NAD CV: Regular rate & rhythm, trace-1+ BLE, hematoma noted on left chest wall - improving; HD access catheter right SC; Left chest PPM Pulm: Nonlabored respiraitons on 2L NC, diminished at bases b/l; pleur-x catheter ABD: Soft, nontender, nondistended Neuro: No focal deficits Problem List: 1. Moderate-Large Left Pleural Effusion on Chronic Respiratory Failure due to COPD on Home Oxygen (2L) 2. Suspect Steroid-Induced Leukocytosis 3. MEHREEN on CKD III now on HD 4. Left Chest Wall Hematoma 5. Chronic Compensated Systolic Congestive Heart Failure 6. Suspect Type II NSTEMI ([place]and Ischemia) secondary to above 7. Coronary Artery Disease 8. Hypertension 9. Dyslipidemia 10. Chronic Atrial Fibrillation s/p PPM 11. History of Ventricular Tachycardia s/p AICD 1. Continue with draining left pleural effusion with Pleurx catheter removal of 1000 cc of fluid through Pleurx catheter today 2. Continue with hemodialysis per nephrology 3. Continue monitoring left chest wall hematoma and awaiting for reabsorption 4. Continue volume status closely 5. Continue with cardiac medications 6. Strict blood pressure control 7. Continue with nebs as needed 8. GI and DVT prophylaxis
--- NOTE | 2022-12-25 15:54 | P.PN ---
Date of Service: 12/25/22 Subjective: Patient feeling well. Tolerating diet. Patient did have some dyspnea so we will check a chest x-ray in the morning. Repeat labs in the morning. Overall patient's clinical symptoms are much better. We are working on discharge planning at this time. ROS: 10 point ROS as noted above, otherwise negative Physical Exam: Vitals: Reviewed GEN: Alert, oriented, NAD CV: Regular rate & rhythm, trace-1+ BLE, hematoma noted on left chest wall - im proving; HD access catheter right SC; Left chest PPM Pulm: Nonlabored respiraitons on 2L NC, diminished at bases b/l; pleur-x catheter ABD: Soft, nontender, nondistended Neuro: No focal deficits Problem List: 1. Moderate-Large Left Pleural Effusion on Chronic Respiratory Failure due to COPD on Home Oxygen (2L) 2. Suspect Steroid-Induced Leukocytosis 3. MEHREEN on CKD III now on HD 4. Left Chest Wall Hematoma 5. Chronic Compensated Systolic Congestive Heart Failure 6. Suspect Type II NSTEMI ([place]and Ischemia) secondary to above 7. Coronary Artery Disease 8. Hypertension 9. Dyslipidemia 10. Chronic Atrial Fibrillation s/p PPM 11. History of Ventricular Tachycardia s/p AICD 1. Continue with Pleurx catheter removal of 1000 cc of fluid through Pleurx catheter yesterday 2. Continue with hemodialysis per nephrology 3. Continue monitoring left chest wall hematoma and awaiting for reabsorption 4. Monitor volume status closely 5. Continue with cardiac medications 6. Strict blood pressure control 7. Continue with nebs as needed 8. GI and DVT prophylaxis
[2022-12-25] MEDS: ACETAMINOPHEN 500 MG TAB PO PRN (19:51)
[2022-12-25] MEDS: ROSUVASTATIN 10 MG TAB PO SCH (20:16)
[2022-12-26] MEDS: IPRATROPIUM BROM 0.5MG/2.5ML NEB SCH ×4 (02:00→19:51)
[2022-12-26 06:25] LABS: Absolute Lymphocytes (CBC) 0.5 K/uL (0.7-4.9); Hematocrit 28.3 % (39.6-49.0); Lymphocytes % 5.7 % (15.3-44.8); MCV 91.7 fL (80-100); MPV 8.5 fL (7.6-11.3); RBC Red Blood Cell Count 3.08 M/uL (4.33-5.43)
[2022-12-26] MEDS: ONDANSETRON 4 MG/2 ML VIAL IV PRN (06:37)
[2022-12-26 06:45] LABS: Bilirubin Total 0.7 mg/dL (0.2-1.0); Phosphorus 3.6 mg/dL (2.5-4.9); Protein, Total 6.5 g/dL (6.4-8.2)
[2022-12-26 06:56] LABS: Magnesium 1.8 mg/dL (1.6-2.4); Potassium 4.9 mEq/L (3.5-5.1)
[2022-12-26] MEDS: BUSPIRONE HCL 5 MG TABLET PO SCH ×2 (08:49→20:35)
[2022-12-26] MEDS: ASPIRIN EC 81 MG TAB PO SCH (08:50)
[2022-12-26] MEDS: TORSEMIDE 20 MG TAB PO SCH ×2 (08:50→16:13)
[2022-12-26] MEDS: AMIODARONE HCL 200 MG TAB PO SCH ×2 (08:50→20:35)
[2022-12-26] MEDS: APIXABAN 5 MG TABLET PO SCH ×2 (08:50→20:36)
[2022-12-26] MEDS: DULERA 200/5 (MOMETASONE/FORMOTEROL) INHALER IH SCH ×2 (08:51→20:35)
[2022-12-26] MEDS: METOPROLOL TAR 25 MG TAB PO SCH ×2 (08:51→20:35)
[2022-12-26] MEDS: METHYLPREDNISOLONE 125 MG INJ IV SCH ×2 (15:28→20:34)
[2022-12-26] MEDS: ROSUVASTATIN 10 MG TAB PO SCH (20:35)
[2022-12-27] MEDS: IPRATROPIUM BROM 0.5MG/2.5ML NEB SCH ×4 (01:50→20:00)
--- NOTE | 2022-12-27 02:36 | P.PN ---
Date of Service: 12/26/22 Subjective: Patient continues to do well. Patient was a little short of breath today. Will check a chest x-ray. May need to do removal of fluid through the PleurX catheter. The Physical Exam: Vitals: Reviewed GEN: Alert, oriented, NAD CV: Regular rate & rhythm, trace-1+ BLE, hematoma noted on left chest wall - improving; HD access catheter right SC; Left chest PPM Pulm: Nonlabored respiraitons on 2L NC, diminished at bases b/l; pleur-x catheter ABD: Soft, nontender, nondistended Neuro: No focal deficits Problem List: 1. Moderate-Large Left Pleural Effusion on Chronic Respiratory Failure due to COPD on Home Oxygen (2L) 2. Suspect Steroid-Induced Leukocytosis 3. MEHREEN on CKD III now on HD 4. Left Chest Wall Hematoma 5. Chronic Compensated Systolic Congestive Heart Failure 6. Suspect Type II NSTEMI ([place]and Ischemia) secondary to above 7. Coronary Artery Disease 8. Hypertension 9. Dyslipidemia 10. Chronic Atrial Fibrillation s/p PPM 11. History of Ventricular Tachycardia s/p AICD Plan: 1. Repeat CXR 2. Continue with hemodialysis per nephrology 3. Continue monitoring left chest wall hematoma and awaiting for reabsorption 4. Monitor volume status closely 5. Continue with cardiac medications 6. Strict BP control 7. Continue with nebs as needed 8. GI and DVT prophylaxis
[2022-12-27 06:11] LABS: Absolute Lymphocytes (CBC) 0.3 K/uL (0.7-4.9); Hematocrit 27.4 % (39.6-49.0); Lymphocytes % 5.5 % (15.3-44.8); MPV 8.7 fL (7.6-11.3); RBC Red Blood Cell Count 3.04 M/uL (4.33-5.43)
[2022-12-27 06:26] LABS: Albumin 2.9 g/dL (3.4-5.0); Bilirubin Total 0.6 mg/dL (0.2-1.0); Potassium 5.2 mEq/L (3.5-5.1); Protein, Total 6.2 g/dL (6.4-8.2)
[2022-12-27 08:04] LABS: Platelet Estimate ADEQ
[2022-12-27 08:05] LABS: Blood Morphology Comment NOT SEEN (NOT SEEN); Platelets, Giant 1+
--- NOTE | 2022-12-27 08:36 | RAD REPORT ---
[facility]58 [facility] CLINICAL HISTORY: pneumonia COMPARISON: Chest Single View dated 12/24/2022; Chest Single View dated 12/23/2022; Chest Single View dated 12/22/2022; Chest Single View dated 12/21/2022 TECHNIQUE: Portable AP view of the chest. FINDINGS: Left thoracostomy tube and right IJ dialysis catheter unchanged in position. Progressive p atchy left lung airspace opacities. Patchy right opacities, with stable small right pleural effusion. No pneumothorax or left effusion. The cardiomediastinal contours are unremarkable. IMPRESSION: Progressive patchy left lung airspace opacities may relate to progressive congestion or worsening pneumonia.
[2022-12-27] MEDS: ASPIRIN EC 81 MG TAB PO SCH (08:40)
[2022-12-27] MEDS: METOPROLOL TAR 25 MG TAB PO SCH ×3 (08:40→21:01)
[2022-12-27] MEDS: DOCUSATE NA 100 MG CAP PO PRN (08:40)
[2022-12-27] MEDS: METHYLPREDNISOLONE 125 MG INJ IV SCH ×2 (08:41→21:06)
[2022-12-27] MEDS: LACTULOSE 20 GM/30 ML UCUP PO PRN (08:42)
[2022-12-27] MEDS: AMIODARONE HCL 200 MG TAB PO SCH ×2 (09:00→21:00)
[2022-12-27] MEDS: TORSEMIDE 20 MG TAB PO SCH ×2 (09:00→17:00)
[2022-12-27] MEDS: APIXABAN 5 MG TABLET PO SCH ×2 (09:00→21:00)
[2022-12-27] MEDS: BUSPIRONE HCL 5 MG TABLET PO SCH ×2 (09:00→20:59)
[2022-12-27] MEDS: DULERA 200/5 (MOMETASONE/FORMOTEROL) INHALER IH SCH ×2 (09:00→21:01)
[2022-12-27] MEDS: ONDANSETRON 4 MG/2 ML VIAL IV PRN ×2 (10:51→23:02)
[2022-12-27] MEDS: ALBUMIN HUMAN 25% 100 ML IV ONE ×2 (11:07→11:42)
--- NOTE | 2022-12-27 14:14 | P.PN ---
Nephrology note: (S) Pt's condition about the same since last seen, stable from resp standpoint but remains weak, has not been OOB (O) Vitals reviewed in the EMR General: Chronically ill, cachectic HEENT: Atraumatic, Normocephalic, PERRLA, EOMI, LFNC Neck: Supple, Rt iJ TDC Respiratory: Other (non tachypnec, reduced BS bases Cardiovascular: No sig edema, non tachy Gastrointestinal: Soft and benign, Non-distended, No tenderness Musculoskeletal: No swelling, No contractures, No erythema, muscle mass loss noted Integumentary: Extensive ecchymoses across left chest/flank, Other (xerosis) Neurological: Normal speech, Normal tone, Normal affect Conclusions/Impression: -Recurrent MEHREEN episodes over the past year, underlying CKD Stage IIIb more chronically. Stage II MEHREEN developed on this admission in the setting of multifactorial etiology. Azotemia mod to severe. Renal function tests initially remained well above baseline and pt not effectively diuresing, so did recommend proceeding with a trial of HD/UF to optimize fluid balance and address ARF on CKD -s/p Rt IJ TDC, tolerating HD, HD today, awaiting OP chair time at [facility] for OP HD in ARF status (pt has devoted insurance and clinic is awaiting authorization from insurance) -Recent echo confirmed continued LVEF dysfunction, global hypokinesis, BNP chr onically/sig elevated, s/p ICD. In the setting of recurrent AKIs and hx of hyperkalemia, hd not been able to add low dose Entresto but since initiated on dialysis, will seek to add on if BP remains stable with UF. Cont to monitor for now -Cont PO loop diuretics -Monitor BP closely. Target BP < 130/80 Yossi Fiore MD, ÁNGEL
--- NOTE | 2022-12-27 17:47 | P.PN ---
Subjective Date of Service: 12/27/22 Primary Care Provider: Tera Chief Complaint: This post Pleurx catheter No acute events overnight. He reports no concerns this morning. He will need an outpatient dialysis chair placement prior to discharge. Per case management, dialysis center office is closed for the holiday and will not be open until 12/29/2022. Review of Systems 10-point ROS is otherwise unremarkable General: Weakness (generalized) Respiratory: Shortness of Breath (minimal) Physical Examination - Vital Signs Temperature: 97.0 F Blood Pressure: 102/60 Pulse: 60 Respirations: 16 Pulse Ox (%): 97 Assessment And Plan - Plan - Physical Exam General: Alert, In no apparent distress, Oriented x3 HEENT: Atraumatic, Sclerae nonicteric Neck: JVD not distended Respiratory: Diminished, otherwise fairly clear to auscultation Cardiovascular: Regular rate/rhythm, No murmurs, Other (hematoma noted on left chest wall - improving), Edema (trace BLE) Gastrointestinal: Normal bowel sounds, Soft, Non-distended, No tenderness Integumentary: No rashes Neurological: Normal speech, Normal affect # Moderate-Large Left Pleural Effusion on Chronic Respiratory Failure due to Chronic Obstructive Pulmonary Disease on Home Oxygen (2 L) # Suspect Steroid-Induced Leukocytosis # Tobacco Use Disorder - Pulmonology consulted - recommendations appreciated - S/P thoracentesis on 12/16/2022 - Continue home prednisone and bronchodilators - Consulted Respiratory Therapy - Supplemental oxygen to maintain SpO2 > 92% - Tobacco cessation counseling - Encouraged incentive spirometry # Acute Kidney Injury on Chronic Kidney Disease Stage III now on Hemodialysis - Nephrology consulted and spoke with Dr. Fiore - recommendations appreciated - S/P HD catheter placement on 12/16/2022 - Awaiting dialysis chair placement prior to discharge # Left Chest Wall Hematoma # Chronic Compensated Systolic Congestive Heart Failure # Suspect Type II Non-ST Segment Elevation Myocardial Infarction (Demand Ischemia) secondary to above # Coronary Artery Disease # Hypertension # Dyslipidemia - Cardiac catheterization on 02/01/2022 revealed severe coronary artery disease and recommendation at the time was medical management - Cardiology consulted and spoke with Dr. Hussein - recommendations appreciated -Recommended aspirin and apixaban. Recommended discontinuing clopidogrel. - EKG = without STEMI criteria - Troponin trend = 120.1 -> 119.0 - NT-Pro BNP = 30,472 - Continue home metoprolol, furosemide # Chronic Atrial Fibrillation s/p PPM # History of Ventricular Tachycardia s/p AICD His [id number] = 4 (CHF=1, HTN=1, CAD=1, Age 65-74=1), which typically warrants anticoagulation. - For rate control: - Continue metoprolol, amiodarone - For anticoagulation: -Continue apixaban Anticipate discharge once outpatient dialysis chair secured. Hernan Alonzo M.D.
[2022-12-27] MEDS: ROSUVASTATIN 10 MG TAB PO SCH (21:00)
[2022-12-28] MEDS: IPRATROPIUM BROM 0.5MG/2.5ML NEB SCH ×4 (02:00→20:00)
[2022-12-28 03:38] LABS: Hematocrit 25.9 % (39.6-49.0)
[2022-12-28 04:13] LABS: Magnesium 2.2 mg/dL (1.6-2.4); Potassium 4.7 mEq/L (3.5-5.1)
[2022-12-28] MEDS: METHYLPREDNISOLONE 125 MG INJ IV SCH (08:56)
[2022-12-28] MEDS: ASPIRIN EC 81 MG TAB PO SCH (08:56)
[2022-12-28] MEDS: BUSPIRONE HCL 5 MG TABLET PO SCH ×2 (08:56→21:31)
[2022-12-28] MEDS: METOPROLOL TAR 25 MG TAB PO SCH ×3 (08:57→21:31)
[2022-12-28] MEDS: AMIODARONE HCL 200 MG TAB PO SCH ×2 (08:57→21:31)
[2022-12-28] MEDS: DULERA 200/5 (MOMETASONE/FORMOTEROL) INHALER IH SCH ×2 (08:57→21:32)
[2022-12-28] MEDS: TORSEMIDE 20 MG TAB PO SCH (08:57)
[2022-12-28] MEDS: APIXABAN 5 MG TABLET PO SCH ×2 (08:57→21:32)
--- NOTE | 2022-12-28 11:33 | P.PN ---
Nephrology note: (S) Pt tolerated HD yesterday, UF of 1L. PT in the room, pt remains quite deconditioned, has not been able to stand (O) Vitals reviewed in the EMR General: Chronically ill, cachectic HEENT: Atraumatic, Normocephalic, PERRLA, EOMI, LFNC Neck: Supple, Rt iJ TDC Respiratory: Other (non tachypnec, reduced BS bases Cardiovascular: No sig edema, non tachy Gastrointestinal: Soft and benign, Non-distended, No tenderness Musculoskeletal: No swelling, No contractures, No erythema, muscle mass loss noted Integumentary: Extensive ecchymoses across left chest/flank, Other (xerosis) Neurological: Normal speech, Normal tone, Normal affect. LE 4/5 on foot flexion Conclusions/Impression: -Recurrent MEHREEN episodes over the past year, underlying CKD Stage IIIb more chronically. Stage II MEHREEN developed on this admission in the setting of multifactorial etiology. Azotemia mod to severe. Renal function tests initially remained well above baseline and pt not effectively diuresing, so did recommend proceeding with a trial of HD/UF to optimize fluid balance and address ARF on CKD -s/p Rt IJ TDC, tolerating HD, HD performed yesterday, awaiting OP chair time at [facility] for OP HD in ARF status (pt has devoted insurance and clinic is awaiting authorization from insurance, will f/u tmrw, if not obtained, will consider referral elsewhere). -Recent echo confirmed continued LVEF dysfunction, global hypokinesis, BNP chronically/sig elevated, s/p ICD. In the setting of recurrent AKIs and hx of hyperkalemia, had not been able to add low dose Entresto but since initiated on dialysis, will seek to add on if BP remains stable with UF although it has been low at times. Cont to monitor for now -Cont PO loop diuretics but will lower dose, prior fluid overload improved. Patchy infiltrates persist on xray but unclear if PNA related -Anemia of CKD and chronic illness -H/H remains low, cont weekly MARLENA dosing Yossi Fiore MD, ÁNGEL
--- NOTE | 2022-12-28 12:56 | P.PN ---
Subjective Date of Service: 12/28/22 Primary Care Provider: Tera Chief Complaint: This post Pleurx catheter No acute events overnight. He reports that his breathing is unchanged compared to yesterday. He will need an outpatient dialysis chair placement prior to discharge, but unable to arranged today as dialysis center office is closed for the holiday and will not be re-open until tomorrow. Review of Systems 10-point ROS is otherwise unremarkable General: Weakness (generalized) Physical Examination - Vital Signs Temperature: 97 F Blood Pressure: 117/57 Pulse: 60 Respirations: 28 Pulse Ox (%): 98 Assessment And Plan - Plan - Physical Exam General: Alert, In no apparent distress, Oriented x3 HEENT: Atraumatic, Sclerae nonicteric Respiratory: Diminished, otherwise fairly clear to auscultation Cardiovascular: Regular rate/rhythm, No murmurs, Other (hematoma noted on left chest wall - improving), No edema Gastrointestinal: Soft, Non-distended, No tenderness Integumentary: No rashes Neurological: Normal speech, Normal affect # Moderate-Large Left Pleural Effusion on Chronic Respiratory Failure due to Chronic Obstructive Pulmonary Disease on Home Oxygen (2 L) # Suspect Steroid-Induced Leukocytosis # Tobacco Use Disorder - Pulmonology consulted - recommendations appreciated - S/P thoracentesis on 12/16/2022 - Continue home prednisone and bronchodilators - Consulted Respiratory Therapy - Supplemental oxygen to maintain SpO2 > 92% - Tobacco cessation counseling - Encouraged incentive spirometry # Acute Kidney Injury on Chronic Kidney Disease Stage III now on Hemodialysis - Nephrology consulted and spoke with Dr. Fiore - recommendations appreciated - S/P HD catheter placement on 12/16/2022 - Awaiting dialysis chair placement prior to discharge # Left Chest Wall Hematoma # Chronic Compensated Systolic Congestive Heart Failure # Suspect Type II Non-ST Segment Elevation Myocardial Infarction (Demand Ischemia) secondary to above # Coronary Artery Disease # Hypertension # Dyslipidemia - Cardiac catheterization on 02/01/2022 revealed severe coronary artery disease and recommendation at the time was medical management - Cardiology consulted and spoke with Dr. Hussein - recommendations appreciated -Recommended aspirin and apixaban. Recommended discontinuing clopidogrel. - EKG = without STEMI criteria - Troponin trend = 120.1 -> 119.0 - NT-Pro BNP = 30,472 - Continue home metoprolol, furosemide # Chronic Atrial Fibrillation s/p PPM # History of Ventricular Tachycardia s/p AICD His [id number] = 4 (CHF=1, HTN=1, CAD=1, Age 65-74=1), which typically warrants anticoagulation. - For rate control: - Continue metoprolol, amiodarone - For anticoagulation: -Continue apixaban Anticipate discharge once outpatient dialysis chair secured - unlikely to happen today due to holiday. Hernan Alonzo M.D.
[2022-12-28] MEDS: ROSUVASTATIN 10 MG TAB PO SCH (21:31)
[2022-12-29] MEDS: IPRATROPIUM BROM 0.5MG/2.5ML NEB SCH ×4 (02:00→20:00)
[2022-12-29] MEDS: LACTULOSE 20 GM/30 ML UCUP PO PRN (04:21)
[2022-12-29 05:53] LABS: Hematocrit 26.6 % (39.6-49.0)
[2022-12-29 06:09] LABS: Potassium 5.2 mEq/L (3.5-5.1)
[2022-12-29] MEDS: TORSEMIDE 20 MG TAB PO SCH (08:46)
[2022-12-29] MEDS: BUSPIRONE HCL 5 MG TABLET PO SCH ×2 (08:46→21:54)
[2022-12-29] MEDS: ASPIRIN EC 81 MG TAB PO SCH (08:47)
[2022-12-29] MEDS: METOPROLOL TAR 25 MG TAB PO SCH ×2 (08:47→21:00)
[2022-12-29] MEDS: AMIODARONE HCL 200 MG TAB PO SCH ×2 (08:47→21:55)
[2022-12-29] MEDS: APIXABAN 5 MG TABLET PO SCH ×2 (08:47→21:54)
[2022-12-29] MEDS: DULERA 200/5 (MOMETASONE/FORMOTEROL) INHALER IH SCH ×2 (08:48→21:58)
[2022-12-29] MEDS ORDERED: EPOETIN ALFA-EPBX 10,000 UNIT/ML VIAL SQ ONE (09:00)
--- NOTE | 2022-12-29 11:49 | P.PN ---
Nephrology note: (S) Pt reports sig weakness, unable to stand, reports lightheadedness as well (O) Vitals reviewed in the EMR General: Chronically ill, cachectic HEENT: Atraumatic, Normocephalic, PERRLA, EOMI, LFNC Neck: Supple, Rt iJ TDC Respiratory: Other (non tachypnec, reduced BS bases Cardiovascular: No sig edema, non tachy, left upper chest ICD, pocket swollen Gastrointestinal: Soft and benign, Non-distended, No tenderness Musculoskeletal: No swelling, No contractures, No erythema, muscle mass loss noted Integumentary: Extensive ecchymoses across left chest/flank, Other (xerosis) Neurological: Normal speech, Normal tone, Normal affect. LE 4/5 on foot flexion Conclusions/Impression: -Recurrent MERHEEN episodes over the past year, underlying CKD Stage IIIb more chronically. Stage II MEHREEN developed on this admission in the setting of multifactorial etiology. Azotemia mod to severe. Renal function tests initially remained well above baseline and pt not effectively diuresing, so did recommend proceeding with a trial of HD/UF to optimize fluid balance and address ARF on CKD -s/p Rt IJ TDC, tolerating HD, HD to be repeated today (will address hyperkalemia and azotemia with dialysis), awaiting OP chair time at [facility] for OP HD in ARF status (pt has devoted insurance and clinic is awaiting authorization from insurance, will f/u tmrw, if not obtained, will consider referral elsewhere). -Recent echo confirmed continued LVEF dysfunction, global hypokinesis, BNP chronically/sig elevated, s/p ICD. In the setting of recurrent AKIs and hx of hyperkalemia, had not been able to add low dose Entresto but since initiated on dialysis, will seek to add on if BP remains stable with UF although it has been soft at times and pt reports lightheadedness. Cont to monitor for now -Cont PO loop diuretics but will lower dose, prior fluid overload improved. Patchy infiltrates persist on xray but unclear if PNA related -Anemia of CKD and chronic illness -H/H remains low, cont weekly MARLENA dosing Yossi Fiore MD, ÁNGEL
[2022-12-29] MEDS ORDERED: ALBUMIN HUMAN 25% 100 ML IV ONE (12:00)
--- NOTE | 2022-12-29 15:43 | P.PN ---
Subjective Date of Service: 12/29/22 Primary Care Provider: Tera Chief Complaint: This post Pleurx catheter No acute events overnight. He reports no new concerns this morning. He is pending outpatient dialysis chair placement. Review of Systems 10-point ROS is otherwise unremarkable General: Weakness (generalized) Physical Examination - Vital Signs Temperature: 97 F Blood Pressure: 143/68 Pulse: 60 Respirations: 20 Pulse Ox (%): 98 Assessment And Plan - Plan - Physical Exam General: Alert, In no apparent distress, Oriented x3 HEENT: Atraumatic, Sclerae nonicteric Respiratory: Diminished, otherwise fairly clear to auscultation Cardiovascular: Regular rate/rhythm, No murmurs, Other (hematoma noted on left chest wall - improving), No edema Gastrointestinal: Soft, Non-distended, No tenderness Integumentary: No rashes Neurological: Normal speech, Normal affect # Moderate-Large Left Pleural Effusion on Chronic Respiratory Failure due to Chronic Obstructive Pulmonary Disease on Home Oxygen (2 L) # Suspect Steroid-Induced Leukocytosis # Tobacco Use Disorder - Pulmonology consulted - recommendations appreciated - S/P thoracentesis on 12/16/2022 - Continue home prednisone and bronchodilators - Consulted Respiratory Therapy - Supplemental oxygen to maintain SpO2 > 92% - Tobacco cessation counseling - Encouraged incentive spirometry # Acute Kidney Injury on Chronic Kidney Disease Stage III now on Hemodialysis - Nephrology consulted and spoke with Dr. Fiore - recommendations appreciated - S/P HD catheter placement on 12/16/2022 - Awaiting dialysis chair placement prior to discharge # Left Chest Wall Hematoma # Chronic Compensated Systolic Congestive Heart Failure # Suspect Type II Non-ST Segment Elevation Myocardial Infarction (Demand Ischemia) secondary to above # Coronary Artery Disease # Hypertension # Dyslipidemia - Cardiac catheterization on 02/01/2022 revealed severe coronary artery disease and recommendation at the time was medical management - Cardiology consulted and spoke with Dr. Hussein - recommendations appreciated -Recommended aspirin and apixaban. Recommended discontinuing clopidogrel. - EKG = without STEMI criteria - Troponin trend = 120.1 -> 119.0 - NT-Pro BNP = 30,472 - Continue home metoprolol, furosemide # Chronic Atrial Fibrillation s/p PPM # History of Ventricular Tachycardia s/p AICD His [id number] = 4 (CHF=1, HTN=1, CAD=1, Age 65-74=1), which typically warrants anticoagulation. - For rate control: - Continue metoprolol, amiodarone - For anticoagulation: -Continue apixaban Anticipate discharge once outpatient dialysis chair secured. Hernan Alonzo M.D.
[2022-12-29] MEDS: ROSUVASTATIN 10 MG TAB PO SCH (21:54)
[2022-12-29] MEDS: DOCUSATE NA 100 MG CAP PO PRN (21:58)
[2022-12-30] MEDS: IPRATROPIUM BROM 0.5MG/2.5ML NEB SCH ×4 (02:00→20:00)
[2022-12-30 03:17] LABS: Potassium 4.3 mEq/L (3.5-5.1)
[2022-12-30] MEDS: AMIODARONE HCL 200 MG TAB PO SCH ×2 (08:50→20:28)
[2022-12-30] MEDS: ASPIRIN EC 81 MG TAB PO SCH (08:50)
[2022-12-30] MEDS: APIXABAN 5 MG TABLET PO SCH ×2 (08:50→20:27)
[2022-12-30] MEDS: TORSEMIDE 20 MG TAB PO SCH (08:50)
[2022-12-30] MEDS: METOPROLOL TAR 25 MG TAB PO SCH ×2 (08:50→20:28)
[2022-12-30] MEDS: BUSPIRONE HCL 5 MG TABLET PO SCH ×2 (08:50→20:27)
[2022-12-30] MEDS: DULERA 200/5 (MOMETASONE/FORMOTEROL) INHALER IH SCH ×2 (08:51→20:28)
--- NOTE | 2022-12-30 20:09 | P.PN ---
Subjective Date of Service: 12/30/22 Primary Care Provider: Tera Chief Complaint: This post Pleurx catheter No acute events overnight. He was seen this morning on rounds, alongside Dr. Roy. He reports no new concerns this morning. He is pending outpatient dialysis chair placement. Review of Systems 10-point ROS is otherwise unremarkable General: Weakness (generalized) Respiratory: Shortness of Breath (minimal) Physical Examination - Vital Signs Temperature: 97.3 F Blood Pressure: 120/68 Pulse: 62 Respirations: 18 Pulse Ox (%): 98 Assessment And Plan - Plan - Physical Exam General: Alert, In no apparent distress, Oriented x3 HEENT: Atraumatic, Sclerae nonicteric Respiratory: Diminished, otherwise fairly clear to auscultation Cardiovascular: Regular rate/rhythm, No murmurs, Other (hematoma noted on left chest wall - improving), No edema Gastrointestinal: Soft, Non-distended, No tenderness Integumentary: No rashes Neurological: Normal speech, Normal affect # Moderate-Large Left Pleural Effusion on Chronic Respiratory Failure due to Chronic Obstructive Pulmonary Disease on Home Oxygen (2 L) # Suspect Steroid-Induced Leukocytosis # Tobacco Use Disorder - Pulmonology consulted - recommendations appreciated - S/P thoracentesis on 12/16/2022 - Continue home prednisone and bronchodilators - Consulted Respiratory Therapy - Supplemental oxygen to maintain SpO2 > 92% - Tobacco cessation counseling - Encouraged incentive spirometry # Acute Kidney Injury on Chronic Kidney Disease Stage III now on Hemodialysis - Nephrology consulted and spoke with Dr. Roy - recommendations appreciated - S/P HD catheter placement on 12/16/2022 - Awaiting dialysis chair placement prior to discharge # Left Chest Wall Hematoma # Chronic Compensated Systolic Congestive Heart Failure # Suspect Type II Non-ST Segment Elevation Myocardial Infarction (Demand Ischemia) secondary to above # Coronary Artery Disease # Hypertension # Dyslipidemia - Cardiac catheterization on 02/01/2022 revealed severe coronary artery disease and recommendation at the time was medical management - Cardiology consulted and spoke with Dr. Hussein - recommendations appreciated -Recommended aspirin and apixaban. Recommended discontinuing clopidogrel. - EKG = without STEMI criteria - Troponin trend = 120.1 -> 119.0 - NT-Pro BNP = 30,472 - Continue home metoprolol, furosemide # Chronic Atrial Fibrillation s/p PPM # History of Ventricular Tachycardia s/p AICD His [id number] = 4 (CHF=1, HTN=1, CAD=1, Age 65-74=1), which typically warrants anticoagulation. - For rate control: - Continue metoprolol, amiodarone - For anticoagulation: -Continue apixaban No new changes today. Anticipate discharge once outpatient dialysis chair secured. Hernan Alonzo M.D.
[2022-12-30] MEDS: ROSUVASTATIN 10 MG TAB PO SCH (20:27)
[2022-12-30] MEDS: DOCUSATE NA 100 MG CAP PO PRN (20:27)
--- NOTE | 2022-12-30 21:33 | P.PN ---
Date of Service: 12/30/22 Vital Signs Temp Pulse Resp BP Pulse Ox 97.3 F 66 18 129/64 98 12/30/22 20:08 12/30/22 20:28 12/30/22 20:08 12/30/22 20:28 12/30/22 20:08 Medications Acetaminophen (Acetaminophen 500 Mg Tab) 500 mg PO Q6H PRN PRN Reason: Pain scale 2-4 (Mild) Last Admin: 12/25/22 19:51 Dose: 500 mg Albuterol Sulfate (Albuterol 2.5 Mg/3 Ml Neb Ledy) 2.5 mg NEB [id number] PRN PRN Reason: SHORTNESS OF BREATH Amiodarone HCl (Amiodarone Hcl 200 Mg Tab) 200 mg PO BID [facility] Last Admin: 12/30/22 20:28 Dose: 200 mg Apixaban (Apixaban 5 Mg Tablet) 5 mg PO BID [facility] Last Admin: 12/30/22 20:27 Dose: 5 mg Aspirin (Aspirin Ec 81 Mg Tab) 81 mg PO DAILY [facility] Last Admin: 12/30/22 08:50 Dose: 81 mg Benzonatate (Benzonatate 100 Mg Cap) 100 mg PO TID PRN PRN Reason: COUGH Last Admin: 12/13/22 21:34 Dose: 100 mg Buspirone HCl (Buspirone Hcl 5 Mg Tablet) 10 mg PO BID [facility] Last Admin: 12/30/22 20:27 Dose: 10 mg Docusate Sodium (Docusate Na 100 Mg Cap) 100 mg PO DAILY PRN PRN Reason: CONSTIPATION Last Admin: 12/30/22 20:27 Dose: 100 mg Heparin Sodium (Porcine) (Heparin 1,000 Unit/Ml Vial) 4,000 unit IV EVERY HD PRN PRN Reason: CVC patency Last Admin: 12/29/22 19:02 Dose: 4,000 unit Heparin Sodium (Porcine) (Heparin 1,000 Unit/Ml Vial) 2,000 unit IV EVERY HD PRN PRN Reason: Prevent Lines Clotting Last Admin: 12/29/22 15:57 Dose: 2,000 unit Ipratropium [place] (Ipratropium Brom 0.5mg/2.5ml) 0.5 mg NEB [id number] [facility] Last Admin: 12/30/22 14:00 Dose: Not Given Lactulose (Lactulose 20 Gm/30 Ml Ucup) 10 gm PO BID PRN PRN Reason: CONSTIPATION Last Admin: 12/29/22 04:21 Dose: 10 gm Mannitol (Mannitol 25% 12.5 Gm/50 Ml Vial) 25 gm IV EVERY HD PRN PRN Reason: Dialysis for BP Support Last Admin: 12/24/22 13:00 Dose: 25 gm Metoprolol Tartrate (Metoprolol Tar 25 Mg Tab) 25 mg PO BID [facility] Last Admin: 12/30/22 20:28 Dose: 25 mg Ondansetron HCl (Ondansetron 4 Mg/2 Ml Vial) 4 mg IV Q6HP PRN PRN Reason: NAUSEA / VOMITING Last Admin: 12/27/22 23:02 Dose: 4 mg Rosuvastatin Calcium (Rosuvastatin 10 Mg Tab) 20 mg PO BEDTIME [facility] Last Admin: 12/30/22 20:27 Dose: 20 mg Sodium Chloride (Flush Normal Saline 10 Ml) 10 ml IV BID [facility] Last Admin: 12/30/22 20:29 Dose: 10 ml Torsemide (Torsemide 20 Mg Tab) 20 mg PO DAILY [facility] Last Admin: 12/30/22 08:50 Dose: 20 mg Microbiology Results 12/09/22 21:40 Blood - Blood Aerobic Blood Culture - Final No growth in 5 days. 12/09/22 21:40 Blood - Blood Anaerobic Blood Culture - Final No growth in 5 days. 12/09/22 21:20 Blood - Blood Aerobic Blood Culture - Final No growth in 5 days. 12/09/22 21:20 Blood - Blood Anaerobic Blood Culture - Final No growth in 5 days. Assessment/ Plan: Nephrology Dyspnea with exertion No chest pain Feeling better No acute events overnight Vitals, medications, blood work and imaging reviewed in the chart. NAD. NCAT. MMM. Normal Respiratory Effort. S1S2. ND Abd. No C/C/E. No rash. AAO. Normal speech. RIJ CVC Stage II MEHREEN in the setting of CRS now on dialysis CKD IIIb -No NSAIDs -HD TIW Hyponatremia -HD TIW Hypokalemia -Replete potassium prn HTN with CKD/ CHF -Continue Metoprolol Diastolic CHF, chronic Left Pleural Effusion, recurrent -Low sodium diet -Daily weight -Continue Torsemide -PleurX status Anemia in chronic illness -Monitor H&H -Retacrit PRN CKD MBD -Continue Ergo Case reviewed with Dr. Alonzo All Active Problems Acute on chronic respiratory failure with hypoxia (Acute) Hematoma (Acute) Pleural effusion (Acute) Troponin level elevated (Acute) CAD (coronary artery disease) (Chronic) CHF (congestive heart failure) (Chronic) CKD (chronic kidney disease) stage 3, GFR 30-59 ml/min (Chronic) HTN (hypertension) (Chronic) Acute bronchitis with COPD (Acute) Acute exacerbation of CHF (congestive heart failure) (Acute 07/28/18) Acute on chronic diastolic (congestive) heart failure (Acute) Acute on chronic renal failure (Acute) Acute renal failure (Acute) Acute respiratory failure with hypercapnia (Acute) Acute respiratory failure with hypoxia (Acute) Atrial fibrillation (Acute) CHF (congestive heart failure) (Acute) COPD exacerbation (Acute) COPD exacerbation (Acute) COPD exacerbation (Acute) Chest pain (Acute) Chronic diastolic heart failure (Acute) Hypercapnic respiratory failure (Acute) Pneumonia (Acute) Respiratory distress (Acute) Respiratory failure with hypoxia and hypercapnia (Acute) Acute on chronic diastolic heart failure (Chronic) CKD (chronic kidney disease) stage 3, GFR 30-59 ml/min (Chronic) HTN (hypertension) (Chronic) Nicotine dependence (Chronic)
[2022-12-31] MEDS: IPRATROPIUM BROM 0.5MG/2.5ML NEB SCH ×5 (02:00→23:00)
[2022-12-31 07:02] LABS: Potassium 4.6 mEq/L (3.5-5.1)
[2022-12-31] MEDS: DULERA 200/5 (MOMETASONE/FORMOTEROL) INHALER IH SCH ×2 (09:00→21:05)
[2022-12-31] MEDS: METOPROLOL TAR 25 MG TAB PO SCH ×2 (10:14→21:04)
[2022-12-31] MEDS: AMIODARONE HCL 200 MG TAB PO SCH ×2 (10:14→21:04)
[2022-12-31] MEDS: ASPIRIN EC 81 MG TAB PO SCH (10:14)
[2022-12-31] MEDS: BUSPIRONE HCL 5 MG TABLET PO SCH ×2 (10:14→21:04)
[2022-12-31] MEDS: TORSEMIDE 20 MG TAB PO SCH (10:14)
[2022-12-31] MEDS: APIXABAN 5 MG TABLET PO SCH ×2 (10:14→21:04)
--- NOTE | 2022-12-31 17:35 | P.PN ---
Nephrology note: (S) Pt remains weak and deconditioned, appears mildly tachypnec, air entry tight, getting breathing treatments (O) Vitals reviewed in the EMR General: Chronically ill, cachectic HEENT: Atraumatic, Normocephalic, PERRLA, EOMI, LFNC Neck: Supple, Rt iJ TDC Respiratory: Other (mildly tachypnec, reduced BS bases, some dysphonia) Cardiovascular: No sig edema, non tachy, left upper chest ICD, pocket swollen Gastrointestinal: Soft and benign, Non-distended, No tenderness Musculoskeletal: No swelling, No contractures, No erythema, muscle mass loss noted Integumentary: Extensive ecchymoses across left chest/flank, Other (xerosis) Neurological: Normal speech, Normal tone, Normal affect. LE 4/5 on foot flexion Conclusions/Impression: -Recurrent MEHREEN episodes over the past year, underlying CKD Stage IIIb more chronically. Stage II MEHREEN developed on this admission in the setting of multifactorial etiology. Azotemia mod to severe. Renal function tests initially remained well above baseline and pt not effectively diuresing, so did recommend proceeding with a trial of HD/UF to optimize fluid balance and address ARF on CKD -s/p Rt IJ TDC, tolerating HD, HD being performed MWF currently, awaiting OP chair time for OP HD in ARF status (pt has devoted insurance and clinic is awaiting authorization from insurance) -Recent echo confirmed continued LVEF dysfunction, global hypokinesis, BNP chronically/sig elevated, s/p ICD. In the setting of recurrent AKIs and hx of hyperkalemia, had not been able to add low dose Entresto but since initiated on dialysis, will seek to add on if BP remains stable with UF although it has been soft at times and pt reports lightheadedness. Will add low dose Midodrine for BP support -Cont PO loop diuretics but did ower dose, prior fluid overload improved. Patchy infiltrates persist on xray but unclear if PNA related Remains weak and deconditioned and at risk for resp decompensation with his underlying mod to severe COPD -Anemia of CKD and chronic illness -H/H remains low but stable, cont weekly MARLENA dosing Yossi Fiore MD, ÁNGEL
--- NOTE | 2022-12-31 18:41 | P.PN ---
Subjective Date of Service: 12/31/22 Primary Care Provider: Tera Chief Complaint: This post Pleurx catheter This morning, he reports there is leaking around his Pleur-X catheter. No obvious abnormality noted. Spoke with Dr. Falcon - recommendations appreciated. He is pending outpatient dialysis chair placement. Review of Systems 10-point ROS is otherwise unremarkable General: Weakness (generalized) Respiratory: Shortness of Breath Physical Examination - Vital Signs Temperature: 98.8 F Blood Pressure: 98/51 Pulse: 59 Respirations: 18 Pulse Ox (%): 97 Assessment And Plan - Plan - Physical Exam General: Alert, In no apparent distress, Oriented x3 HEENT: Atraumatic, Sclerae nonicteric Respiratory: Diminished, otherwise fairly clear to auscultation Cardiovascular: Regular rate/rhythm, No murmurs, Other (hematoma noted on left chest wall - improving), No edema Gastrointestinal: Soft, Non-distended, No tenderness Integumentary: No rashes Neurological: Normal speech, Normal affect # Moderate-Large Left Pleural Effusion on Chronic Respiratory Failure due to Chronic Obstructive Pulmonary Disease on Home Oxygen (2 L) # Suspect Steroid-Induced Leukocytosis # Tobacco Use Disorder - Pulmonology consulted - recommendations appreciated - S/P thoracentesis on 12/16/2022 - Continue home prednisone and bronchodilators - Consulted Respiratory Therapy - Supplemental oxygen to maintain SpO2 > 92% - Tobacco cessation counseling - Encouraged incentive spirometry # Acute Kidney Injury on Chronic Kidney Disease Stage III now on Hemodialysis - Nephrology consulted and spoke with Dr. Fiore- recommendations appreciated - S/P HD catheter placement on 12/16/2022 - Awaiting dialysis chair placement prior to discharge # Left Chest Wall Hematoma # Chronic Compensated Systolic Congestive Heart Failure # Suspect Type II Non-ST Segment Elevation Myocardial Infarction (Demand Ischemia) secondary to above # Coronary Artery Disease # Hypertension # Dyslipidemia - Cardiac catheterization on 02/01/2022 revealed severe coronary artery disease and recommendation at the time was medical management - Cardiology consulted and spoke with Dr. Hussein - recommendations appreciated -Recommended aspirin and apixaban. Recommended discontinuing clopidogrel. - EKG = without STEMI criteria - Troponin trend = 120.1 -> 119.0 - NT-Pro BNP = 30,472 - Continue home metoprolol, furosemide # Chronic Atrial Fibrillation s/p PPM # History of Ventricular Tachycardia s/p AICD His [id number] = 4 (CHF=1, HTN=1, CAD=1, Age 65-74=1), which typically warrants anticoagulation. - For rate control: - Continue metoprolol, amiodarone - For anticoagulation: -Continue apixaban No new changes today. Anticipate discharge once outpatient dialysis chair secured. Appreciate CM assistance. Hernan Alonzo M.D.
[2022-12-31] MEDS: ROSUVASTATIN 10 MG TAB PO SCH (21:04)
[2022-12-31] MEDS: DOCUSATE NA 100 MG CAP PO PRN (21:05)
[2022-12-31] MEDS: MIDODRINE HCL 5 MG TABLET PO SCH (21:05)
[2022-12-31] MEDS: ALBUTEROL 2.5 MG/3 ML NEB SOL NEB PRN (23:00)
[2023-01-01] MEDS: IPRATROPIUM BROM 0.5MG/2.5ML NEB SCH ×4 (02:15→20:00)
[2023-01-01] MEDS: ALBUTEROL 2.5 MG/3 ML NEB SOL NEB PRN (02:15)
[2023-01-01 06:40] LABS: Absolute Lymphocytes (CBC) 0.4 K/uL (0.7-4.9); Hematocrit 25.6 % (39.6-49.0); Lymphocytes % 4.4 % (15.3-44.8); MCV 89.6 fL (80-100); RBC Red Blood Cell Count 2.86 M/uL (4.33-5.43)
[2023-01-01 06:57] LABS: Phosphorus 4.9 mg/dL (2.5-4.9); Potassium 4.1 mEq/L (3.5-5.1)
[2023-01-01] MEDS: DULERA 200/5 (MOMETASONE/FORMOTEROL) INHALER IH SCH ×2 (09:00→20:03)
[2023-01-01] MEDS: METOPROLOL TAR 25 MG TAB PO SCH ×2 (09:00→19:59)
[2023-01-01] MEDS: BUSPIRONE HCL 5 MG TABLET PO SCH ×2 (09:00→19:58)
[2023-01-01 09:04] LABS: Anisocytosis 1+; Blood Morphology Comment NOTED (NOT SEEN); Platelet Estimate ADEQ; White Blood Cell Scan OK (OK)
[2023-01-01] MEDS: TORSEMIDE 20 MG TAB PO SCH (10:10)
[2023-01-01] MEDS: MIDODRINE HCL 5 MG TABLET PO SCH ×2 (10:10→19:59)
[2023-01-01] MEDS: ASPIRIN EC 81 MG TAB PO SCH (10:11)
[2023-01-01] MEDS: APIXABAN 5 MG TABLET PO SCH ×2 (10:11→19:58)
[2023-01-01] MEDS: AMIODARONE HCL 200 MG TAB PO SCH ×2 (10:11→19:58)
[2023-01-01] MEDS ORDERED: ALBUMIN HUMAN 25% 100 ML IV ONE (11:00)
--- NOTE | 2023-01-01 13:34 | P.PN ---
Nephrology note: (S) Pt remains weak and deconditioned, BP remains soft, getting IV Albumin dose, HD treatment yesterday missed, rescheduled for today (O) Vitals reviewed in the EMR General: Chronically ill, cachectic HEENT: Atraumatic, Normocephalic, PERRLA, EOMI, LFNC Neck: Supple, Rt iJ TDC Respiratory: Other (mildly tachypnec, reduced BS bases, some dysphonia) Cardiovascular: No sig edema, non tachy, left upper chest ICD, pocket swollen Gastrointestinal: Soft and benign, Non-distended, No tenderness Musculoskeletal: No swelling, No contractures, No erythema, muscle mass loss noted Integumentary: Extensive ecchymoses across left chest/flank, Other (xerosis) Neurological: Normal speech, Normal tone, Normal affect. LE 4/5 on foot flexion Conclusions/Impression: -Recurrent MEHREEN episodes over the past year, underlying CKD Stage IIIb more chronically. Stage II MEHREEN developed on this admission in the setting of multifactorial etiology. Azotemia mod to severe. Renal function tests initially remained well above baseline and pt not effectively diuresing, so did recommend proceeding with a trial of HD/UF to optimize fluid balance and address ARF on CKD -s/p Rt IJ TDC, tolerating HD, HD being performed 3x/week, off HD Cr level rises back up, awaiting OP chair time for OP HD in ARF status (pt has devoted insurance and clinic is awaiting authorization from insurance) -Recent echo confirmed continued LVEF dysfunction, global hypokinesis, BNP chronically/sig elevated, s/p ICD. In the setting of recurrent AKIs and hx of hyperkalemia, had not been able to add low dose Entresto but since initiated on dialysis, had initially sought to add on if BP remains stable with UF although it has remained soft/low at times and pt reports lightheadedness. Did since add low dose Midodrine for BP support -Cont PO loop diuretics but did lower dose, prior fluid overload improved. Patchy infiltrates persist on xray but unclear if PNA related Remains weak and deconditioned and at risk for resp decompensation with his underlying mod to severe COPD -Anemia of CKD and chronic illness -H/H remains low but stable, cont weekly MARLENA dosing Yossi Fiore MD, ÁNGEL
[2023-01-01] MEDS: ROSUVASTATIN 10 MG TAB PO SCH (19:57)
[2023-01-01] MEDS: DOCUSATE NA 100 MG CAP PO PRN (20:04)
--- NOTE | 2023-01-01 21:32 | P.PN ---
Subjective Date of Service: 01/01/23 Primary Care Provider: Tera Chief Complaint: This post Pleurx catheter No acute events overnight. He denies any concerns, other than generalized weakness. His discharge is pending outpatient dialysis chair placement. Review of Systems 10-point ROS is otherwise unremarkable General: Weakness (generalized) Physical Examination - Vital Signs Temperature: 97.7 F Blood Pressure: 108/56 Pulse: 64 Respirations: 16 Pulse Ox (%): 98 Assessment And Plan - Plan - Physical Exam General: Alert, In no apparent distress, Oriented x3 HEENT: Atraumatic, Sclerae nonicteric Respiratory: Diminished, otherwise fairly clear to auscultation Cardiovascular: Regular rate/rhythm, No murmurs, Other (hematoma noted on left chest wall - improving), No edema Gastrointestinal: Soft, Non-distended, No tenderness Integumentary: No rashes Neurological: Normal speech, Normal affect # Moderate-Large Left Pleural Effusion on Chronic Respiratory Failure due to Chronic Obstructive Pulmonary Disease on Home Oxygen (2 L) # Suspect Steroid-Induced Leukocytosis # Tobacco Use Disorder - Pulmonology consulted - recommendations appreciated - S/P thoracentesis on 12/16/2022 - Continue home prednisone and bronchodilators - Consulted Respiratory Therapy - Supplemental oxygen to maintain SpO2 > 92% - Tobacco cessation counseling - Encouraged incentive spirometry # Acute Kidney Injury on Chronic Kidney Disease Stage III now on Hemodialysis - Nephrology consulted and spoke with Dr. Fiore- recommendations appreciated - S/P HD catheter placement on 12/16/2022 - Awaiting dialysis chair placement prior to discharge # Left Chest Wall Hematoma # Chronic Compensated Systolic Congestive Heart Failure # Suspect Type II Non-ST Segment Elevation Myocardial Infarction (Demand Ischemia) secondary to above # Coronary Artery Disease # Hypertension # Dyslipidemia - Cardiac catheterization on 02/01/2022 revealed severe coronary artery disease and recommendation at the time was medical management - Cardiology consulted and spoke with Dr. Hussein - recommendations appreciated -Recommended aspirin and apixaban. Recommended discontinuing clopidogrel. - EKG = without STEMI criteria - Troponin trend = 120.1 -> 119.0 - NT-Pro BNP = 30,472 - Continue home metoprolol, furosemide # Chronic Atrial Fibrillation s/p PPM # History of Ventricular Tachycardia s/p AICD His [id number] = 4 (CHF=1, HTN=1, CAD=1, Age 65-74=1), which typically warrants anticoagulation. - For rate control: - Continue metoprolol, amiodarone - For anticoagulation: -Continue apixaban No new changes today. Anticipate discharge once outpatient dialysis chair secured. Appreciate CM assistance. Unlikely to occur over the weekend Hernan Alonzo M.D.
[2023-01-02] MEDS: IPRATROPIUM BROM 0.5MG/2.5ML NEB SCH ×4 (02:00→20:00)
[2023-01-02] MEDS: ACETAMINOPHEN 500 MG TAB PO PRN ×2 (03:02→20:06)
[2023-01-02 06:29] LABS: Potassium 3.5 mEq/L (3.5-5.1)
[2023-01-02] MEDS: DULERA 200/5 (MOMETASONE/FORMOTEROL) INHALER IH SCH ×2 (09:00→20:07)
[2023-01-02] MEDS ORDERED: POTASSIUM 25 MEQ EFFERV TAB PO ONE (09:00)
[2023-01-02] MEDS: TORSEMIDE 20 MG TAB PO SCH (09:00)
[2023-01-02] MEDS: METOPROLOL TAR 25 MG TAB PO SCH ×2 (09:00→20:05)
[2023-01-02] MEDS: APIXABAN 5 MG TABLET PO SCH ×2 (09:06→20:06)
[2023-01-02] MEDS: BUSPIRONE HCL 5 MG TABLET PO SCH ×2 (09:06→20:06)
[2023-01-02] MEDS: AMIODARONE HCL 200 MG TAB PO SCH ×2 (09:07→20:06)
[2023-01-02] MEDS: ASPIRIN EC 81 MG TAB PO SCH (09:08)
[2023-01-02] MEDS: MIDODRINE HCL 5 MG TABLET PO SCH ×2 (09:08→20:05)
[2023-01-02] MEDS: BENZONATATE 100 MG CAP PO PRN (20:05)
[2023-01-02] MEDS: ONDANSETRON 4 MG/2 ML VIAL IV PRN (20:05)
[2023-01-02] MEDS: ROSUVASTATIN 10 MG TAB PO SCH (20:06)
--- NOTE | 2023-01-02 20:37 | P.PN ---
Subjective Date of Service: 01/02/23 Primary Care Provider: Tera Chief Complaint: This post Pleurx catheter No new events. Reports no new concerns. His discharge is pending outpatient dialysis chair placement. Review of Systems 10-point ROS is otherwise unremarkable General: Weakness (generalized) Respiratory: Shortness of Breath Physical Examination - Vital Signs Temperature: 98.4 F Blood Pressure: 105/55 Pulse: 72 Respirations: 16 Pulse Ox (%): 99 Assessment And Plan - Plan - Physical Exam General: Alert, In no apparent distress, Oriented x3 HEENT: Atraumatic, Sclerae nonicteric Respiratory: Diminished, otherwise fairly clear to auscultation Cardiovascular: Regular rate/rhythm, No murmurs, Other (hematoma noted on left chest wall - improving), No edema Gastrointestinal: Soft, Non-distended, No tenderness Integumentary: No rashes Neurological: Normal speech, Normal affect # Moderate-Large Left Pleural Effusion on Chronic Respiratory Failure due to Chronic Obstructive Pulmonary Disease on Home Oxygen (2 L) # Suspect Steroid-Induced Leukocytosis # Tobacco Use Disorder - Pulmonology consulted - recommendations appreciated - S/P thoracentesis on 12/16/2022 - Continue home prednisone and bronchodilators - Consulted Respiratory Therapy - Supplemental oxygen to maintain SpO2 > 92% - Tobacco cessation counseling - Encouraged incentive spirometry # Acute Kidney Injury on Chronic Kidney Disease Stage III now on Hemodialysis - Nephrology consulted and spoke with Dr. Fiore- recommendations appreciated - S/P HD catheter placement on 12/16/2022 - Awaiting dialysis chair placement prior to discharge # Left Chest Wall Hematoma # Chronic Compensated Systolic Congestive Heart Failure # Suspect Type II Non-ST Segment Elevation Myocardial Infarction (Demand Ischemia) secondary to above # Coronary Artery Disease # Hypertension # Dyslipidemia - Cardiac catheterization on 02/01/2022 revealed severe coronary artery disease and recommendation at the time was medical management - Cardiology consulted and spoke with Dr. Hussein - recommendations appreciated -Recommended aspirin and apixaban. Recommended discontinuing clopidogrel. - EKG = without STEMI criteria - Troponin trend = 120.1 -> 119.0 - NT-Pro BNP = 30,472 - Continue home metoprolol, furosemide # Chronic Atrial Fibrillation s/p PPM # History of Ventricular Tachycardia s/p AICD His [id number] = 4 (CHF=1, HTN=1, CAD=1, Age 65-74=1), which typically warrants anticoagulation. - For rate control: - Continue metoprolol, amiodarone - For anticoagulation: -Continue apixaban No new changes today. Anticipate discharge once outpatient dialysis chair secured. Appreciate CM assistance. Hernan Alonzo M.D.
[2023-01-03] MEDS: IPRATROPIUM BROM 0.5MG/2.5ML NEB SCH ×4 (02:00→20:00)
[2023-01-03 04:31] LABS: Potassium 4.6 mEq/L (3.5-5.1)
[2023-01-03] MEDS: DULERA 200/5 (MOMETASONE/FORMOTEROL) INHALER IH SCH ×2 (08:16→22:53)
[2023-01-03] MEDS: ASPIRIN EC 81 MG TAB PO SCH (08:17)
[2023-01-03] MEDS: BUSPIRONE HCL 5 MG TABLET PO SCH ×2 (08:17→22:52)
[2023-01-03] MEDS: APIXABAN 5 MG TABLET PO SCH ×2 (08:17→22:53)
[2023-01-03] MEDS: TORSEMIDE 20 MG TAB PO SCH (08:17)
[2023-01-03] MEDS: METOPROLOL TAR 25 MG TAB PO SCH ×2 (08:17→22:53)
[2023-01-03] MEDS: AMIODARONE HCL 200 MG TAB PO SCH ×2 (08:17→22:53)
[2023-01-03] MEDS: MIDODRINE HCL 5 MG TABLET PO SCH ×2 (08:17→22:53)
--- NOTE | 2023-01-03 11:07 | P.PN ---
Date of Service: 01/03/23 Vital Signs Temp Pulse Resp BP Pulse Ox 97.1 F 59 17 106/59 L 95 01/03/23 08:00 01/03/23 08:00 01/03/23 08:00 01/03/23 08:00 01/03/23 08:00 Medications Acetaminophen (Acetaminophen 500 Mg Tab) 500 mg PO Q6H PRN PRN Reason: Pain scale 2-4 (Mild) Last Admin: 01/02/23 20:06 Dose: 500 mg Albuterol Sulfate (Albuterol 2.5 Mg/3 Ml Neb Ledy) 2.5 mg NEB [id number] PRN PRN Reason: SHORTNESS OF BREATH Last Admin: 01/01/23 02:15 Dose: 2.5 mg Amiodarone HCl (Amiodarone Hcl 200 Mg Tab) 200 mg PO BID [facility] Last Admin: 01/03/23 08:17 Dose: 200 mg Apixaban (Apixaban 5 Mg Tablet) 5 mg PO BID [facility] Last Admin: 01/03/23 08:17 Dose: 5 mg Aspirin (Aspirin Ec 81 Mg Tab) 81 mg PO DAILY [facility] Last Admin: 01/03/23 08:17 Dose: 81 mg Benzonatate (Benzonatate 100 Mg Cap) 100 mg PO TID PRN PRN Reason: COUGH Last Admin: 01/02/23 20:05 Dose: 100 mg Buspirone HCl (Buspirone Hcl 5 Mg Tablet) 10 mg PO BID [facility] Last Admin: 01/03/23 08:17 Dose: 10 mg Docusate Sodium (Docusate Na 100 Mg Cap) 100 mg PO DAILY PRN PRN Reason: CONSTIPATION Last Admin: 01/01/23 20:04 Dose: 100 mg Heparin Sodium (Porcine) (Heparin 1,000 Unit/Ml Vial) 2,000 unit IV EVERY HD PRN PRN Reason: Prevent Lines Clotting Last Admin: 01/01/23 14:27 Dose: 2,000 unit Ipratropium [place] (Ipratropium Brom 0.5mg/2.5ml) 0.5 mg NEB [id number] [facility] Last Admin: 01/03/23 08:00 Dose: Not Given Lactulose (Lactulose 20 Gm/30 Ml Ucup) 10 gm PO BID PRN PRN Reason: CONSTIPATION Last Admin: 12/29/22 04:21 Dose: 10 gm Mannitol (Mannitol 25% 12.5 Gm/50 Ml Vial) 25 gm IV EVERY HD PRN PRN Reason: Dialysis for BP Support Last Admin: 12/24/22 13:00 Dose: 25 gm Metoprolol Tartrate (Metoprolol Tar 25 Mg Tab) 25 mg PO BID [facility] Last Admin: 01/03/23 08:17 Dose: 25 mg Midodrine (Midodrine Hcl 5 Mg Tablet) 5 mg PO BID [facility] Last Admin: 01/03/23 08:17 Dose: 5 mg Ondansetron HCl (Ondansetron 4 Mg/2 Ml Vial) 4 mg IV Q6HP PRN PRN Reason: NAUSEA / VOMITING Last Admin: 01/02/23 20:05 Dose: 4 mg Rosuvastatin Calcium (Rosuvastatin 10 Mg Tab) 20 mg PO BEDTIME [facility] Last Admin: 01/02/23 20:06 Dose: 20 mg Sodium Chloride (Flush Normal Saline 10 Ml) 10 ml IV BID [facility] Last Admin: 01/03/23 08:17 Dose: 10 ml Torsemide (Torsemide 20 Mg Tab) 20 mg PO DAILY [facility] Last Admin: 01/03/23 08:17 Dose: 20 mg Microbiology Results 12/09/22 21:40 Blood - Blood Aerobic Blood Culture - Final No growth in 5 days. 12/09/22 21:40 Blood - Blood Anaerobic Blood Culture - Final No growth in 5 days. 12/09/22 21:20 Blood - Blood Aerobic Blood Culture - Final No growth in 5 days. 12/09/22 21:20 Blood - Blood Anaerobic Blood Culture - Final No growth in 5 days. Assessment/ Plan: Nephrology Dyspnea with exertion No chest pain Weakness and fatigue No acute events overnight Vitals, medications, blood work and imaging reviewed in the chart. NAD. NCAT. MMM. Normal Respiratory Effort. S1S2. ND Abd. No C/C/E. No rash. AAO. Normal speech. RIJ CVC Stage II MEHREEN in the setting of CRS CKD IIIb Dialysis initiated to optimize volume status in the setting of CRS -No NSAIDs -HD TIW Hyponatremia -HD TIW Hypokalemia -Replete potassium prn HTN with CKD/ CHF complicated by hypotension -Continue Midodrine Diastolic CHF, chronic Left Pleural Effusion, recurrent Chronic Atrial Fibrillation -Continue Metoprolol -Low sodium diet -Daily weight -Continue Torsemide -PleurX status Anemia in chronic illness -Monitor H&H -Retacrit PRN CKD MBD -Continue Ergo Case reviewed with Dr. Jenkins Awaiting dialysis placement All Active Problems Acute on chronic respiratory failure with hypoxia (Acute) Hematoma (Acute) Pleural effusion (Acute) Troponin level elevated (Acute) CAD (coronary artery disease) (Chronic) CHF (congestive heart failure) (Chronic) CKD (chronic kidney disease) stage 3, GFR 30-59 ml/min (Chronic) HTN (hypertension) (Chronic) Acute bronchitis with COPD (Acute) Acute exacerbation of CHF (congestive heart failure) (Acute 07/28/18) Acute on chronic diastolic (congestive) heart failure (Acute) Acute on chronic renal failure (Acute) Acute renal failure (Acute) Acute respiratory failure with hypercapnia (Acute) Acute respiratory failure with hypoxia (Acute) Atrial fibrillation (Acute) CHF (congestive heart failure) (Acute) COPD exacerbation (Acute) COPD exacerbation (Acute) COPD exacerbation (Acute) Chest pain (Acute) Chronic diastolic heart failure (Acute) Hypercapnic respiratory failure (Acute) Pneumonia (Acute) Respiratory distress (Acute) Respiratory failure with hypoxia and hypercapnia (Acute) Acute on chronic diastolic heart failure (Chronic) CKD (chronic kidney disease) stage 3, GFR 30-59 ml/min (Chronic) HTN (hypertension) (Chronic) Nicotine dependence (Chronic)
--- NOTE | 2023-01-03 11:22 | RAD REPORT ---
EXAM DESCRIPTION: RAD - Chest Single View - 01/01/2023 11:56 pm CLINICAL HISTORY: 72 years Male, followup pleural effusion TECHNIQUE: 1 view (Single frontal view of the chest) COMPARISON: 05/31/2022 FINDINGS: LINES AND TUBES: Left-sided chest tube in place. Right-sided dialysis catheter. Left-sided AICD. CARDIOVASCULAR STRUCTURES: Cardiomegaly. Mild pulmonary venous congestion. LUNGS: Patchy right lower lobe airspace disease compatible with pneumonia versus atelectasis versus s carring. Bibasilar subsegmental atelectasis. PLEURA: Small bilateral pleural effusions, right greater than left. No pneumothorax. BONES: No acute osseous abnormality of the thorax. IMPRESSION: 1. Small bilateral pleural effusions, right greater than left. Left-sided chest tube i n place. 2. Patchy right lower lobe airspace disease compatible with pneumonia versus atelectasis versus sca rring. 3. Bibasilar subsegmental atelectasis. 4. Cardiomegaly and mild pulmonary venous congestion. Electronically signed by: Gabo Pa MD 01/02/2023 12:15 AM CDT Due to temporary technical issues with the PACS/Fluency reporting system, reports are being signed by the in house radiologist without review as a courtesy to ensure prompt reporting. The interpreting r adiologist is fully responsible for the content of the report.
--- NOTE | 2023-01-03 14:32 | P.PN ---
Subjective Date of Service: 01/03/23 Primary Care Provider: Tera Chief Complaint: This post Pleurx catheter Patient has no new complain. Physical Examination - Vital Signs Temperature: 97.1 F Blood Pressure: 99/55 Pulse: 61 Respirations: 17 Pulse Ox (%): 97 Assessment And Plan - Plan Physical Exam General: Alert, In no apparent distress, Oriented x3 HEENT: Atraumatic, Sclerae nonicteric Respiratory: Diminished, clear to auscultation Cardiovascular: Regular rate/rhythm, No murmurs, No edema Gastrointestinal: Soft, Non-distended, No tenderness Integumentary: No rashes Neurological: Normal speech, Normal affect Plan: Moderate-Large Left Pleural Effusion on Chronic Respiratory Failure due to Chronic Obstructive Pulmonary Disease on Home Oxygen (2 L) Suspect Steroid-Induced Leukocytosis Tobacco Use Disorder -Seen by pulmonary - S/P thoracentesis on 12/16/2022 -Pleurx catheter placed for periodic drainage - Continue home prednisone and bronchodilators - Supplemental oxygen to maintain SpO2 > 92% - Tobacco cessation counseling done. Patient states that he has been hospit alized for 3 weeks now without smoking and that he is ready to quit smoking. - Encouraged incentive spirometry Acute Kidney Injury on Chronic Kidney Disease Stage III now on Hemodialysis - Nephrology is following - S/P HD catheter placement on 12/16/2022 - Hemodialysis initiated - Awaiting dialysis chair placement prior to discharge Left Chest Wall Hematoma Chronic Compensated Systolic Congestive Heart Failure Suspect Type II Non-ST Segment Elevation Myocardial Infarction (Demand Ischemia) secondary to above Coronary Artery Disease Hypertension Dyslipidemia - Cardiac catheterization on 02/01/2022 revealed severe coronary artery disease and recommendation at the time was medical management - Cardiology consulted. Dr. Hussein recommended aspirin and apixaban. Recommended discontinuing clopidogrel. - EKG = without STEMI criteria - Troponin trend = 120.1 -> 119.0 - NT-Pro BNP = 30,472 - Continue home metoprolol, furosemide Chronic Atrial Fibrillation s/p PPM History of Ventricular Tachycardia s/p AICD His [id number] = 4 (CHF=1, HTN=1, CAD=1, Age 65-74=1), which typically warrants anticoagulation. - Continue metoprolol, amiodarone - Continue apixaban Awaiting discharge pending outpatient dialysis chair arrangement.
[2023-01-03] MEDS: MANNITOL 25% 12.5 GM/50 ML VIAL IV PRN (15:30)
[2023-01-03] MEDS ORDERED: ALBUMIN HUMAN 25% 100 ML IV ONE (16:00)
--- NOTE | 2023-01-03 17:13 | EKG ---
Test Date: 2023-01-02 Test Time: 03:54:59 Flight Control Specialist: PAULIE MEASUREMENT RESULTS: Intervals: Rate: 60 MN: 140 QRSD: 156 QT: 494 QTc: 494 [place]: P: -13 MN: 140 QRS: 31 T: 191 INTERPRETIVE STATEMENTS: Electronic atrial pacemaker Nonspecific intraventricular block Abnormal ECG Compared to ECG 12/09/2022 21:07:27 Sinus rhythm no longer present Left bundle-branch block no longer present Electronically Signed On 01-03-23 17:11:23 CDT by Jerardo Hussein
[2023-01-03] MEDS: ACETAMINOPHEN 500 MG TAB PO PRN (19:51)
[2023-01-03] MEDS: ONDANSETRON 4 MG/2 ML VIAL IV PRN (19:52)
[2023-01-03] MEDS: BENZONATATE 100 MG CAP PO PRN (19:52)
[2023-01-03] MEDS ORDERED: PROMETHAZINE 25 MG/SUPP PR ONE (20:32)
[2023-01-03] MEDS: ROSUVASTATIN 10 MG TAB PO SCH (22:53)
[2023-01-04] MEDS: IPRATROPIUM BROM 0.5MG/2.5ML NEB SCH ×3 (01:48→14:00)
[2023-01-04] MEDS: APIXABAN 5 MG TABLET PO SCH ×2 (08:12→20:39)
[2023-01-04] MEDS: BUSPIRONE HCL 5 MG TABLET PO SCH ×2 (08:12→20:40)
[2023-01-04] MEDS: MIDODRINE HCL 5 MG TABLET PO SCH ×2 (08:12→20:39)
[2023-01-04] MEDS: ASPIRIN EC 81 MG TAB PO SCH (08:12)
[2023-01-04] MEDS: METOPROLOL TAR 25 MG TAB PO SCH ×2 (08:12→20:40)
[2023-01-04] MEDS: AMIODARONE HCL 200 MG TAB PO SCH ×2 (08:12→20:40)
[2023-01-04] MEDS: DULERA 200/5 (MOMETASONE/FORMOTEROL) INHALER IH SCH ×2 (08:12→20:39)
[2023-01-04] MEDS: TORSEMIDE 20 MG TAB PO SCH (08:13)
[2023-01-04] MEDS ORDERED: IPRATROPIUM BROM 0.5MG/2.5ML NEB PRN (14:20)
--- NOTE | 2023-01-04 18:01 | P.PN ---
Subjective Date of Service: 01/04/23 Primary Care Provider: Tera Chief Complaint: This post Pleurx catheter Patient has no new complain. He is eating well. Physical Examination - Vital Signs Temperature: 97.6 F Blood Pressure: 101/60 Pulse: 60 Respirations: 24 Pulse Ox (%): 99 Assessment And Plan - Plan Physical Exam General: Alert, In no apparent distress, Oriented x3 HEENT: Atraumatic, Sclerae nonicteric Respiratory: Diminished, clear to auscultation Cardiovascular: Regular rate/rhythm, No murmurs, No edema Gastrointestinal: Soft, Non-distended, No tenderness Integumentary: No rashes Neurological: Normal speech, Normal affect Plan: Moderate-Large Left Pleural Effusion on Chronic Respiratory Failure due to Chronic Obstructive Pulmonary Disease on Home Oxygen (2 L) Suspect Steroid-Induced Leukocytosis Tobacco Use Disorder -Seen by pulmonary - S/P thoracentesis on 12/16/2022 -Pleurx catheter placed for periodic drainage - Continue home prednisone and bronchodilators - Supplemental oxygen to maintain SpO2 > 92% - Tobacco cessation counseling done. Patient states that he has been hospitalized for 3 weeks now without smoking and that he is ready to quit smoking. - Incentive spirometry Acute Kidney Injury on Chronic Kidney Disease Stage III now on Hemodialysis - Nephrology is following - S/P HD catheter placement on 12/16/2022 - Hemodialysis initiated - Awaiting dialysis chair placement prior to discharge Left Chest Wall Hematoma Chronic Compensated Systolic Congestive Heart Failure Suspect Type II Non-ST Segment Elevation Myocardial Infarction (Demand Ischemia) secondary to above Coronary Artery Disease Hypertension Dyslipidemia - Cardiac catheterization on 02/01/2022 revealed severe coronary artery disease and recommendation at the time was medical management - Cardiology consulted. Dr. Hussein recommended aspirin and apixaban. Recommended discontinuing clopidogrel. - EKG = without STEMI criteria - Troponin trend = 120.1 -> 119.0 - NT-Pro BNP = 30,472 - Continue home metoprolol, furosemide Chronic Atrial Fibrillation s/p PPM History of Ventricular Tachycardia s/p AICD His [id number] = 4 (CHF=1, HTN=1, CAD=1, Age 65-74=1), which typically warrants anticoagulation. - Continue metoprolol, amiodarone - Continue apixaban Awaiting discharge pending outpatient dialysis chair arrangement.
[2023-01-04] MEDS: ROSUVASTATIN 10 MG TAB PO SCH (20:40)
[2023-01-04] MEDS: BENZONATATE 100 MG CAP PO PRN (20:52)
--- NOTE | 2023-01-04 21:01 | P.PN ---
Date of Service: 01/04/23 Vital Signs Temp Pulse Resp BP Pulse Ox 97.6 F 99 H 24 H 103/62 99 01/04/23 18:01 01/04/23 20:40 01/04/23 18:01 01/04/23 20:40 01/04/23 18:01 Medications Acetaminophen (Acetaminophen 500 Mg Tab) 500 mg PO Q6H PRN PRN Reason: Pain scale 2-4 (Mild) Last Admin: 01/03/23 19:51 Dose: 500 mg Albuterol Sulfate (Albuterol 2.5 Mg/3 Ml Neb Ledy) 2.5 mg NEB [id number] PRN PRN Reason: SHORTNESS OF BREATH Last Admin: 01/01/23 02:15 Dose: 2.5 mg Amiodarone HCl (Amiodarone Hcl 200 Mg Tab) 200 mg PO BID [facility] Last Admin: 01/04/23 20:40 Dose: 200 mg Apixaban (Apixaban 5 Mg Tablet) 5 mg PO BID [facility] Last Admin: 01/04/23 20:39 Dose: 5 mg Aspirin (Aspirin Ec 81 Mg Tab) 81 mg PO DAILY [facility] Last Admin: 01/04/23 08:12 Dose: 81 mg Benzonatate (Benzonatate 100 Mg Cap) 100 mg PO TID PRN PRN Reason: COUGH Last Admin: 01/04/23 20:52 Dose: 100 mg Buspirone HCl (Buspirone Hcl 5 Mg Tablet) 10 mg PO BID [facility] Last Admin: 01/04/23 20:40 Dose: 10 mg Docusate Sodium (Docusate Na 100 Mg Cap) 100 mg PO DAILY PRN PRN Reason: CONSTIPATION Last Admin: 01/01/23 20:04 Dose: 100 mg Heparin Sodium (Porcine) (Heparin 1,000 Unit/Ml Vial) 2,000 unit IV EVERY HD PRN PRN Reason: Prevent Lines Clotting Last Admin: 01/03/23 15:27 Dose: 2,000 unit Heparin Sodium (Porcine) (Heparin 1,000 Unit/Ml Vial) 4,000 unit IV EVERY HD PRN PRN Reason: FOR DIALYSIS CATHETER CARE Last Admin: 01/03/23 18:32 Dose: 4,000 unit Ipratropium [place] (Ipratropium Brom 0.5mg/2.5ml) 0.5 mg NEB [id number] PRN PRN Reason: SHORTNESS OF BREATH Lactulose (Lactulose 20 Gm/30 Ml Ucup) 10 gm PO BID PRN PRN Reason: CONSTIPATION Last Admin: 12/29/22 04:21 Dose: 10 gm Metoprolol Tartrate (Metoprolol Tar 25 Mg Tab) 25 mg PO BID [facility] Last Admin: 01/04/23 20:40 Dose: 25 mg Midodrine (Midodrine Hcl 5 Mg Tablet) 5 mg PO BID [facility] Last Admin: 01/04/23 20:39 Dose: 5 mg Ondansetron HCl (Ondansetron 4 Mg/2 Ml Vial) 4 mg IV Q6HP PRN PRN Reason: NAUSEA / VOMITING Last Admin: 01/03/23 19:52 Dose: 4 mg Rosuvastatin Calcium (Rosuvastatin 10 Mg Tab) 20 mg PO BEDTIME [facility] Last Admin: 01/04/23 20:40 Dose: 20 mg Sodium Chloride (Flush Normal Saline 10 Ml) 10 ml IV BID [facility] Last Admin: 01/04/23 20:40 Dose: 10 ml Torsemide (Torsemide 20 Mg Tab) 20 mg PO DAILY [facility] Last Admin: 01/04/23 08:13 Dose: 20 mg Microbiology Results 12/09/22 21:40 Blood - Blood Aerobic Blood Culture - Final No growth in 5 days. 12/09/22 21:40 Blood - Blood Anaerobic Blood Culture - Final No growth in 5 days. 12/09/22 21:20 Blood - Blood Aerobic Blood Culture - Final No growth in 5 days. 12/09/22 21:20 Blood - Blood Anaerobic Blood Culture - Final No growth in 5 days. Assessment/ Plan: Nephrology Dyspnea with exertion No chest pain Weakness and fatigue No acute events overnight Vitals, medications, blood work and imaging reviewed in the chart. NAD. NCAT. MMM. Normal Respiratory Effort. S1S2. ND Abd. No C/C/E. No rash. AAO. Normal speech. RIJ CVC Stage II MEHREEN in the setting of CRS CKD IIIb Dialysis initiated to optimize volume status in the setting of CRS -No NSAIDs -HD TIW Hyponatremia -HD TIW Hypokalemia -Replete potassium prn HTN with CKD/ CHF complicated by hypotension -Continue Midodrine Diastolic CHF, chronic Left Pleural Effusion, recurrent Chronic Atrial Fibrillation -Continue Metoprolol -Low sodium diet -Daily weight -Continue Torsemide -PleurX status Anemia in chronic illness -Monitor H&H -Retacrit PRN CKD MBD -Continue Ergo Awaiting dialysis placement All Active Problems Acute on chronic respiratory failure with hypoxia (Acute) Hematoma (Acute) Pleural effusion (Acute) Troponin level elevated (Acute) CAD (coronary artery disease) (Chronic) CHF (congestive heart failure) (Chronic) CKD (chronic kidney disease) stage 3, GFR 30-59 ml/min (Chronic) HTN (hypertension) (Chronic) Acute bronchitis with COPD (Acute) Acute exacerbation of CHF (congestive heart failure) (Acute 07/28/18) Acute on chronic diastolic (congestive) heart failure (Acute) Acute on chronic renal failure (Acute) Acute renal failure (Acute) Acute respiratory failure with hypercapnia (Acute) Acute respiratory failure with hypoxia (Acute) Atrial fibrillation (Acute) CHF (congestive heart failure) (Acute) COPD exacerbation (Acute) COPD exacerbation (Acute) COPD exacerbation (Acute) Chest pain (Acute) Chronic diastolic heart failure (Acute) Hypercapnic respiratory failure (Acute) Pneumonia (Acute) Respiratory distress (Acute) Respiratory failure with hypoxia and hypercapnia (Acute) Acute on chronic diastolic heart failure (Chronic) CKD (chronic kidney disease) stage 3, GFR 30-59 ml/min (Chronic) HTN (hypertension) (Chronic) Nicotine dependence (Chronic)
[2023-01-04 21:28] VITALS: O2SAT 98
[2023-01-05 03:57] LABS: Magnesium 1.9 mg/dL (1.6-2.4); Phosphorus 4.7 mg/dL (2.5-4.9); Potassium 4.7 mEq/L (3.5-5.1)
[2023-01-05] MEDS: ASPIRIN EC 81 MG TAB PO SCH (08:30)
[2023-01-05] MEDS: BUSPIRONE HCL 5 MG TABLET PO SCH (08:31)
[2023-01-05] MEDS: METOPROLOL TAR 25 MG TAB PO SCH (08:31)
[2023-01-05] MEDS: AMIODARONE HCL 200 MG TAB PO SCH (08:31)
[2023-01-05] MEDS: TORSEMIDE 20 MG TAB PO SCH (08:31)
[2023-01-05] MEDS: APIXABAN 5 MG TABLET PO SCH (08:31)
[2023-01-05] MEDS: MIDODRINE HCL 5 MG TABLET PO SCH (08:31)
[2023-01-05] MEDS: DULERA 200/5 (MOMETASONE/FORMOTEROL) INHALER IH SCH (08:32)
[2023-01-05] MEDS: ACETAMINOPHEN 500 MG TAB PO PRN (09:06)
--- NOTE | 2023-01-05 10:38 | P.DS ---
Admission Date: 12/10/22 Discharge Date: 01/05/23 Primary Care Provider: Tera Dis[facility] Discharge Condition: FAIR Reason for Admission: This post Pleurx catheter Brief History of Present Illness: Mr. Chow is a 72 year old male with a past medical history significant for COPD, paroxysmal atrial fibrillation on eliquis, chronic systolic congestive heart failure s/p AICD 2 weeks prior, coronary artery disease, hypertension, and chronic kidney disease stage III who presented to the emergency department with complaints of shortness of breath. He requires 2L NC at baseline but has had to increase to 5L. His chest CT showed " Moderate to large left pleural effusion. Probable asymmetric pulmonary edema." His labs not significantly changed from baseline. Patient was admitted for further management. Hospital Course: Moderate-Large Left Pleural Effusion on Chronic Respiratory Failure due to Chronic Obstructive Pulmonary Disease on Home Oxygen (2 L) Suspect Steroid-Induced Leukocytosis Tobacco Use Disorder -Seen by pulmonary - S/P thoracentesis on 12/16/2022 -Pleurx catheter placed for periodic drainage - Continue home prednisone and bronchodilators - Supplemental oxygen to maintain SpO2 > 92% - Tobacco cessation counseling done. Patient states that he has been hospitalized for 3 weeks now without smoking and that he is ready to quit smoking. - Incentive spirometry Acute Kidney Injury on Chronic Kidney Disease Stage III now on Hemodialysis - Nephrology is following - S/P HD catheter placement on 12/16/2022 - Hemodialysis initiated -Patient has dialysis chair time at [facility]. Left Chest Wall Hematoma Chronic Compensated Systolic Congestive Heart Failure Suspect Type II Non-ST Segment Elevation Myocardial Infarction (Demand Ischemia) secondary to above Coronary Artery Disease Hypertension Dyslipidemia - Cardiac catheterization on 02/01/2022 revealed severe coronary artery disease and recommendation at the time was medical management - Cardiology consulted. Dr. Hussein recommended aspirin and apixaban. Recommended discontinuing clopidogrel. - EKG = without STEMI criteria - Troponin trend = 120.1 -> 119.0 - NT-Pro BNP = 30,472 - Continue home metoprolol, furosemide Chronic Atrial Fibrillation s/p PPM History of Ventricular Tachycardia s/p AICD His [id number] = 4 (CHF=1, HTN=1, CAD=1, Age 65-74=1), which typically warrants anticoagulation. - Continue metoprolol, amiodarone - Continue apixaban Vital Signs/Physical Exam: Temp Pulse Resp BP Pulse Ox 97 F 60 17 122/73 98 01/05/23 08:00 01/05/23 08:00 01/05/23 08:00 01/05/23 08:00 01/05/23 08:00 General: Alert, In no apparent distress, Oriented x3 HEENT: Mucous membr. moist/pink Neck: JVD not distended Respiratory: Clear to auscultation bilaterally, Normal air movement Cardiovascular: No edema, Irregular heart rate/rhythm Gastrointestinal: Normal bowel sounds, Soft and benign, Non-distended Musculoskeletal: No swelling Integumentary: No cyanosis Neurological: Normal strength at 5/5 x4 extr Laboratory Data at Discharge: WBC 9.20 thou/uL (4.3-10.9) 01/01/23 05:40 Hgb 8.4 g/dL (13.6-17.9) L 01/01/23 05:40 Hct 25.6 % (39.6-49.0) L 01/01/23 05:40 Plt Count 196 thou/uL (152-406) 01/01/23 05:40 PT 10.9 SECONDS (9.5-12.5) 12/15/22 03:01 INR 0.99 12/15/22 03:01 APTT 23.5 SECONDS (24.3-36.9) L 12/14/22 09:43 Sodium 131 mEq/L (136-145) L 01/05/23 02:40 Potassium 4.7 mEq/L (3.5-5.1) 01/05/23 02:40 BUN 38 mg/dL (7-18) H 01/05/23 02:40 Creatinine 3.54 mg/dL (0.70-1.30) H 01/05/23 02:40 Glucose 99 mg/dL (74-106) 01/05/23 02:40 Phosphorus 4.7 mg/dL (2.5-4.9) 01/05/23 02:40 Magnesium 1.9 mg/dL (1.6-2.4) 01/05/23 02:40 Total Bilirubin 0.6 mg/dL (0.2-1.0) 12/27/22 05:44 AST 21 U/L (15-37) 12/27/22 05:44 ALT 29 U/L (16-61) 12/27/22 05:44 Alkaline Phosphatase 109 U/L (45-117) 12/27/22 05:44 Lipase 30 U/L (13-75) 12/09/22 21:20 Home Medications: Aspirin [Aspirin EC] 81 mg PO DAILY 04/05/22 Metoprolol Tartrate 25 mg PO BID 04/05/22 Fluticasone/Salmeterol [Advair 250-50 Diskus] 1 each IH BID #1 kit 05/13/22 Rosuvastatin Calcium [Crestor] 20 mg PO BEDTIME 06/14/22 Buspirone HCl [Buspar*] 10 mg PO BID #60 tab 06/20/22 Theophylline Anhydrous [Devaughn-24] 200 mg PO BID 60 Days #60 tab 06/20/22 Ipratropium Neb [Atrovent*] 0.5 mg NEB [id number] #120 amp 06/23/22 Amiodarone HCl [Cordarone*] 400 mg PO BID tab 11/24/22 Albuterol Neb [Proventil 0.083% Neb Soln] 2.5 mg NEB [id number] PRN amp 01/05/23 Apixaban [Eliquis] 2.5 mg PO BID #60 tablet 01/05/23 Docusate [Colace Cap*] 100 mg PO DAILY PRN cap 01/05/23 Midodrine HCl [Proamatine*] 5 mg PO BID tab 01/05/23 Torsemide [Demadex*] 20 mg PO DAILY tab 01/05/23 New Medications: Apixaban [Eliquis] 2.5 mg PO BID #60 tablet Diet: Renal Activity: Fall precautions Followup: Henry Roy DO [Primary Care Provider] - 1-2 Weeks Time spent managing pt's care (in minutes): 39
[2023-01-05] MEDS ORDERED: ALBUMIN HUMAN 25% 100 ML IV ONE (11:36)
--- NOTE | 2023-01-05 11:38 | P.PN ---
Nephrology note: (S) Seen prior to HD, resp status stable but remains q.weak, reports dizziness when sitting on the side of the bed, unable to stand or transfer on his pwn (O) Vitals reviewed in the EMR General: Chronically ill, cachectic HEENT: Atraumatic, Normocephalic, PERRLA, EOMI, LFNC Neck: Supple, Rt iJ TDC Respiratory: Other (mildly tachypnec, reduced BS bases, some dysphonia) Cardiovascular: No sig edema, non tachy, left upper chest ICD, pocket swollen Gastrointestinal: Soft and benign, Non-distended, No tenderness Musculoskeletal: No swelling, No contractures, No erythema, muscle mass loss not ed Integumentary: Extensive ecchymoses across left chest/flank, Other (xerosis) Neurological: Normal speech, Normal tone, Normal affect. LE 4/5 on foot flexion Conclusions/Impression: -Recurrent MEHREEN episodes over the past year, underlying CKD Stage IIIb more chronically. Stage II MEHREEN developed on this admission in the setting of multifactorial etiology. Azotemia mod to severe. Renal function tests initially remained well above baseline and pt not effectively diuresing, so did recommend proceeding with a trial of HD/UF to optimize fluid balance and address ARF on CKD -s/p Rt IJ TDC, tolerating HD, HD being performed 3x/week, off HD Cr level rises back up, OP HD at [facility] set up, orders communicated to them -Recent echo confirmed continued LVEF dysfunction, global hypokinesis, BNP chronically/sig elevated, s/p ICD. In the setting of recurrent AKIs and hx of hyperkalemia, had not been able to add low dose Entresto but since initiated on dialysis, had initially sought to add on if BP remains stable with UF although it has remained soft/low at times and pt reports lightheadedness. Did since add low dose Midodrine for BP support, have used Albumin IV PRN -Cont PO loop diuretics but did lower dose, prior fluid overload improved. Patchy infiltrates persist on xray but unclear if PNA related Remains weak and deconditioned and at risk for resp decompensation with his underlying mod to severe COPD -Anemia of CKD and chronic illness -H/H remains low but stable, cont weekly MARLENA dosing Yossi Fiore MD, [email or web address]
[2023-01-05 12:28] VITALS: BP 107/62; TEMP 97.4
== END 2023-01-05 12:39 | DRG 280 ==
LOC: ER 20:44 → ERHOLD 12-10 00:12 → 2ND 12-10 01:10
PROVIDERS: ADMIT Internal Medicine Sleep Medicine; ATTEND Internal Medicine
PROC: 02HV33Z Insertion of Infusion Device into Superior Vena Cava, Percutaneous Approach (ICD-10-PCS; 2022-12-16)
PROC: 0W9B3ZZ Drainage of Left Pleural Cavity, Percutaneous Approach (ICD-10-PCS; 2022-12-16)
PROC: 0JH63XZ Insertion of Tunneled Vascular Access Device into Chest Subcutaneous Tissue and Fascia, Percutaneous Approach (ICD-10-PCS; principal; 2022-12-16 16:00)
PROC: 0JH63XZ Insertion of Tunneled Vascular Access Device into Chest Subcutaneous Tissue and Fascia, Percutaneous Approach (ICD-10-PCS; 2022-12-21)
PROC: 02HV33Z Insertion of Infusion Device into Superior Vena Cava, Percutaneous Approach (ICD-10-PCS; 2022-12-21)
PROC: 0W9B30Z Drainage of Left Pleural Cavity with Drainage Device, Percutaneous Approach (ICD-10-PCS; 2022-12-21)
DX: I13.0 Hypertensive heart and chronic kidney disease with heart failure and stage 1 through stage 4 chronic kidney disease, or unspecified chronic kidney disease (principal); I21.4 Non-ST elevation (NSTEMI) myocardial infarction; I50.43 Acute on chronic combined systolic (congestive) and diastolic (congestive) heart failure; J96.21 Acute and chronic respiratory failure with hypoxia; I21.A1 Myocardial infarction type 2; I97.638 Postprocedural hematoma of a circulatory system organ or structure following other circulatory system procedure; E87.1 Hypo-osmolality and hyponatremia; N17.9 Acute kidney failure, unspecified; R64 Cachexia; J91.8 Pleural effusion in other conditions classified elsewhere; J44.9 Chronic obstructive pulmonary disease, unspecified; N18.32 Chronic kidney disease, stage 3b; D63.1 Anemia in chronic kidney disease; E87.5 Hyperkalemia; I48.0 Paroxysmal atrial fibrillation; I25.10 Atherosclerotic heart disease of native coronary artery without angina pectoris; F17.200 Nicotine dependence, unspecified, uncomplicated; S20.212A Contusion of left front wall of thorax, initial encounter; Z95.5 Presence of coronary angioplasty implant and graft; Z71.6 Tobacco abuse counseling; Z79.01 Long term (current) use of anticoagulants; Z79.82 Long term (current) use of aspirin; Z99.81 Dependence on supplemental oxygen; Z79.52 Long term (current) use of systemic steroids; Z79.02 Long term (current) use of antithrombotics/antiplatelets; Z79.899 Other long term (current) drug therapy; Z95.810 Presence of automatic (implantable) cardiac defibrillator; Y83.8 Other surgical procedures as the cause of abnormal reaction of the patient, or of later complication, without mention of misadventure at the time of the procedure
CPT/HCPCS: 36415; 71045; 71046; 71250; 76000; 76604; 80048; 80053; 80076; 82550; 82805; 82945; 82947; 83615; 83690; 83735; 83880; 84100; 84132; 84157; 84311; 84484; 85014; 85018; 85025; 85027; 85610; 85730; 86704; 86706; 87015; 87040; 87102; 87116; 87205; 87206; 87340; 88108; 88305; 89050; 90935; 93005; 94640; 94660; 94760; 96365; 96367; 96375; 97110; 97161; 97530; 99285; C1752; J0690; J0696; J1644; J1940; J2001; J2150; J2250; J2270; J2405; J2704; J2930; J3010; J3480; J3535; J7040; J7050; J7512; J7613; J7644; P9047; Q5106